=== PATIENT | male | born 1980 | race African-American/Black ===

== ENCOUNTER 2016-03-18 11:55 | Inpatient (IN) | payer SELFPAY ==
--- NOTE | 2016-03-18 12:16 | ER Document Report ---
Addendum entered and electronically signed by ERIC HOOVER NP 03/18/16 12:18: Nurse Practioner Note - Note Notes: 03/18/16 12:18 blood sugar reading HH in RME Original Note: ED Medical Screen (RME) - General Stated Complaint: DIFFICULTY BREATHING Notes: 36 yo IDDM out of Insulin x several days. c/o difficulty breathing, vomiting, abdominal pain x 2 days. + hx/o HTN, high cholesterol. no PCM TRAVEL OUTSIDE OF THE [place] IN LAST 30 DAYS: No - Related Data Allergies/Adverse Reactions: No Known Allergies Allergy (Verified 03/18/16 12:12) Past Medical History - Past Medical History Cardiac Medical History: Reports: Hx Hypercholesterolemia, Hx Hypertension Pulmonary Medical History: Denies: Hx Tuberculosis Endocrine Medical History: Reports: Hx Diabetes Mellitus Type 1. Denies: Hx Diabetes Mellitus Type 2, Hx Graves' Disease, Hx Hyperthyroidism, Hx Hypothyroidism Psychiatric Medical History: Reports: Hx Depression Past Surgical History: Reports: Hx Orthopedic Surgery - back. Denies: Hx Appendectomy, Hx Bowel Surgery, Hx Cholecystectomy, Hx Coronary Artery Bypass Graft, Hx Gastric Bypass Surgery, Hx Herniorrhaphy, Hx Pacemaker, Hx Tonsillectomy - Immunizations Hx Diphtheria, Pertussis, Tetanus Vaccination: Yes Physical Exam - Vital signs Vitals: Temp Pulse Resp BP Pulse Ox 97.8 F 115 H 22 H 125/81 96 03/18/16 12:04 03/18/16 12:04 03/18/16 12:04 03/18/16 12:04 03/18/16 12:04 Course - Vital Signs Vital signs: Temp Pulse Resp BP Pulse Ox 97.8 F 115 H 22 H 125/81 96 03/18/16 12:04 03/18/16 12:04 03/18/16 12:04 03/18/16 12:04 03/18/16 12:04
[2016-03-18] MEDS ORDERED: NORMAL SALINE 1000 ML 1,000 ML IV ONE ×3 (12:47→14:18)
[2016-03-18] MEDS ORDERED: INSULIN REG, HUMAN 100 UNIT/ML 3 ML VIAL (PYX) IV ONE (12:51)
--- NOTE | 2016-03-18 12:51 | ER Document Report ---
ED Blood Sugar Problem - General Mode of Arrival: Ambulatory Information source: Patient TRAVEL OUTSIDE OF THE [place] IN LAST 30 DAYS: No - HPI Onset: Other - see narrative Onset/Duration: Persistent Severity: Severe <LEONARDOABECHESTER - Last Filed: 03/18/16 13:32> <BRI EASTON - Last Filed: 03/18/16 14:00> - General Chief Complaint: High Blood Sugar Stated Complaint: DIFFICULTY BREATHING Notes: Patient is a 36-year-old male that presents to the emergency department today with complaints of not having insulin for the last "few" days with elevated blood glucose levels. Patient states it has been over two days since he last had insulin. Patient states he was first diagnosed with diabetes about four days ago. Patient states that he has had vomiting for the last day and a half. Patient denies any fevers. Patient states he smokes about a quarter of a pack a day and drinks occasionally. Patient smells of ketones. (CHESTER PATTERSON) - Related Data Allergies/Adverse Reactions: No Known Allergies Allergy (Verified 03/18/16 12:12) Past Medical History - General Information [facility] - Social History Smoking Status: Current Every Day Smoker Cigarette use (# per day): Yes Chew tobacco use (# tins/day): No Frequency of alcohol use: Occasional Drug Abuse: None Lives with: Family Family History: Reviewed & Not Pertinent, DM, Hyperlipidemia, Hypertension Patient has suicidal ideation: No Patient has homicidal ideation: No - Past Medical History Cardiac Medical History: Reports: Hx Hypercholesterolemia, Hx Hypertension Endocrine Medical History: Reports: Hx Diabetes Mellitus Type 1 Psychiatric Medical History: Reports: Hx Depression Past Surgical History: Reports: Hx Orthopedic Surgery - back - Immunizations Hx Diphtheria, Pertussis, Tetanus Vaccination: Yes Hx Pneumococcal Vaccination: 11/09/11 <CHESTER PATTERSON - Last Filed: 03/18/16 13:32> Review of Systems - Review of Systems Constitutional: See HPI, Other - No insulin for several days, elevated blood glucose levels. denies: Fever EENT: No symptoms reported Cardiovascular: No symptoms reported Respiratory: No symptoms reported Gastrointestinal: See HPI, Nausea, Vomiting Genitourinary: No symptoms reported Male Genitourinary: No symptoms reported Musculoskeletal: No symptoms reported Skin: No symptoms reported Hematologic/Lymphatic: No symptoms reported Neurological/Psychological: No symptoms reported -: Yes All other systems reviewed and negative <CHESTER PATTERSON - Last Filed: 03/18/16 13:32> Physical Exam - General General appearance: Alert - HEENT Head: Normocephalic, Atraumatic Eyes: Normal Mucous membranes: Dry - Respiratory Respiratory status: Tachypnea Breath sounds: Normal - Cardiovascular Rhythm: Tachycardia Heart sounds: Normal auscultation - Abdominal Inspection: Normal Distension: No distension Bowel sounds: Normal Tenderness: Nontender - Extremities General upper extremity: Normal inspection, Normal ROM. No: Edema General lower extremity: Normal inspection, Normal ROM. No: Edema - Neurological Neuro grossly intact: Yes Cognition: Normal Orientation: AAOx4 Speech: Normal - Psychological Associated symptoms: Normal affect, Normal mood - Skin Skin Temperature: Warm Skin Moisture: Dry Skin Color: Normal <CHESTER PATTERSON - Last Filed: 03/18/16 13:32> <BRI EASTON - Last Filed: 03/18/16 14:00> - Vital signs Vitals: Temp Pulse Resp BP Pulse Ox 97.8 F 115 H 22 H 125/81 96 03/18/16 12:04 03/18/16 12:04 03/18/16 12:04 03/18/16 12:04 03/18/16 12:04 (CHESTER PATTERSON) (BRI EASTON) - Notes Notes: Smells of ketones upon entry (CHESTER PATTERSON) Course - Laboratory Result Diagrams: 03/18/16 13:00 03/18/16 13:00 <CHESTER PATTERSON - Last Filed: 03/18/16 13:32> - Laboratory Result Diagrams: 03/18/16 13:00 03/18/16 13:00 - Consults Dr. Newman Time consulted: 13:55 Consulted provider: will come to ER <BRI EASTON - Last Filed: 03/18/16 14:00> - Vital Signs Vital signs: Temp Pulse Resp BP Pulse Ox 97.8 F 110 H 23 H 125/81 96 03/18/16 13:08 03/18/16 13:08 03/18/16 13:08 03/18/16 13:08 03/18/16 13:08 (CHESTER PATTERSON) (BRI EASTON) - Laboratory Laboratory results interpreted by me: 03/18/16 03/18/16 03/18/16 13:00 13:00 13:00 WBC 14.1 H MCHC 31.7 L RDW 16.6 H Seg Neutrophils % 83.1 H Lymphocytes % 9.3 L Absolute Neutrophils 11.7 H Sodium 136.1 L Carbon Dioxide < 5 L* BUN 26 H Glucose 740 H* Phosphorus 8.5 H Magnesium 2.4 H ALT 119 H Alkaline Phosphatase 287 H Triglycerides 183 H Cholesterol 232.23 H Lipase 3727.7 H Urine Glucose (UA) >=500 H Urine Ketones 80 H Urine Blood SMALL H (BRI EASTON) Critical Care Note - Critical Care Note Total time excluding time spent on procedures (mins): 35 <BRI EASTON - Last Filed: 03/18/16 14:00> Discharge <CHESTER PATTERSON - Last Filed: 03/18/16 13:32> - Discharge Admitting Provider: Hospitalist Unit Admitted: IMCU <BRI EASTON - Last Filed: 03/18/16 14:00> - Discharge Clinical Impression: Dehydration, Noncompliance Diabetic ketoacidosis Qualifiers: Diabetes mellitus type: type 1 Diabetes mellitus complication detail: without coma Qualified Code(s): E10.10 - Type 1 diabetes mellitus with ketoacidosis without coma Pancreatitis Qualifiers: Chronicity: acute Pancreatitis type: unspecified pancreatitis type Acute pancreatitis complication: no infection or necrosis Qualified Code(s): K85.90 - Acute pancreatitis without necrosis or infection, unspecified Condition: Good Disposition: ADMITTED INPATIENT Scribe Documentation - Scribe Written by Sylvain:: Sylvain Bansal, [id number] 03/18/2016 acting as scribe for DrQiana:: Ellie <CHESTER PATTERSON - Last Filed: 03/18/16 13:32>
[2016-03-18 13:17] LABS: ABSOLUTE BASOPHILS # (AUTO) 0.1 10^3/uL (0.0-0.2); ABSOLUTE LYMPHOCYTES (AUTO) 1.3 10^3/uL (0.5-4.7); ABSOLUTE NEUT (AUTO) 11.7 10^3/uL (1.7-8.2); BASOPHILS % (AUTO) 0.6 % (0-2); EOSINOPHILS % (AUTO) 0.1 % (0-6); HEMATOCRIT 46.2 % (37.9-51.0); HEMOGLOBIN 14.6 g/dL (13.5-17.0); HGB HCT DIFFERENCE -2.4; LYMPHOCYTES % (AUTO) 9.3 % (13-45); MEAN CORPUSCULAR HEMOGLOBIN 30.6 pg (27.0-33.4); MEAN CORPUSCULAR HGB CONC 31.7 g/dL (32.0-36.0); MEAN CORPUSCULAR VOLUME 97 fl (80-97); MONOCYTES % (AUTO) 6.9 % (3-13); RED BLOOD COUNT 4.78 10^6/uL (4.35-5.55); RED CELL DISTRIBUTION WIDTH 16.6 % (11.5-14.0); SEGMENTED NEUTROPHILS % (AUTO) 83.1 % (42-78); WHITE BLOOD COUNT 14.1 10^3/uL (4.0-10.5)
[2016-03-18 13:22] LABS: APPEARANCE,URINE CLEAR; BILIRUBIN,URINE NEGATIVE (NEGATIVE); GLUCOSE, URINE >=500 mg/dL (NEGATIVE); KETONES,URINE 80 mg/dL (NEGATIVE); LEUKOCYTE ESTERASE,URINE NEGATIVE (NEGATIVE); NITRITE,URINE NEGATIVE (NEGATIVE); PROTEIN,URINE NEGATIVE (NEGATIVE); URINE SPECIFIC GRAVITY 1.027; UROBILINOGEN,URINE NEGATIVE mg/dL (<2.0)
[2016-03-18 13:30] LABS: ALANINE AMINOTRANSFERASE 119 U/L (21-72); ALBUMIN 4.5 g/dL (3.5-5.0); ALKALINE PHOSPHATASE 287 U/L (38-126); ASPARTATE AMINO TRANSFERASE 39 U/L (17-59); BILIRUBIN,TOTAL 0.8 mg/dL (0.2-1.3); BLOOD UREA NITROGEN 26 mg/dL (7-20); CALCIUM 9.7 mg/dL (8.4-10.2); CHLORIDE 98 mmol/L (98-107); CHOLESTEROL 232.23 mg/dL (0-200); CREATININE RESULT 1.18 mg/dL (0.52-1.25); MAGNESIUM 2.4 mg/dL (1.6-2.3); PHOSPHORUS 8.5 mg/dL (2.5-4.5); SODIUM 136.1 mmol/L (137-145); TOTAL PROTEIN 7.1 g/dL (6.3-8.2); TRIGLYCERIDES 183 mg/dL (<150)
[2016-03-18 13:47] LABS: LIPASE 3727.7 U/L (23-300)
[2016-03-18 13:51] LABS: GLUCOSE 740 mg/dL (75-110)
--- NOTE | 2016-03-18 14:13 | ER Document Report ---
ED General - General Chief Complaint: High Blood Sugar Stated Complaint: DIFFICULTY BREATHING Time seen by provider: 12:45 Mode of Arrival: Ambulatory Information source: Patient, [facility] Records Notes: Ran out of insulin a few days ago. Nausea vomiting abdominal pain for 2 days. Complains of being in DKA with shortness of breath and dehydration. Last admitted here on 12/15/2015 for the same problem. There is no fever. There is no diarrhea. There is some abdominal pain. TRAVEL OUTSIDE OF THE [place] IN LAST 30 DAYS: No - Related Data Allergies/Adverse Reactions: No Known Allergies Allergy (Verified 03/18/16 12:12) Past Medical History - General Information source: Patient, [facility] Records - Social History Smoking Status: Current Every Day Smoker Cigarette use (# per day): Yes - one fourth pack per day Chew tobacco use (# tins/day): No Smoking Education Provided: No Frequency of alcohol use: None - Patient states she does not drink alcohol this time. Drug Abuse: None Occupation: [employer] Lives with: Family, Spouse/Significant other Family History: DM, Hyperlipidemia, Hypertension Patient has suicidal ideation: No Patient has homicidal ideation: No - Past Medical History Cardiac Medical History: Reports: Hx Hypercholesterolemia, Hx Hypertension Pulmonary Medical History: Reports: None EENT Medical History: Reports: None Neurological Medical History: Reports: None Endocrine Medical History: Reports: Hx Diabetes Mellitus Type 1 - 4 years Renal/ Medical History: Reports: None GI Medical History: Reports: None Musculoskeltal Medical History: Reports None Skin Medical History: Reports None Psychiatric Medical History: Reports: Hx Depression Past Surgical History: Reports: Hx Orthopedic Surgery - back - Immunizations Hx Diphtheria, Pertussis, Tetanus Vaccination: Yes Hx Pneumococcal Vaccination: 11/09/11 Review of Systems - Review of Systems Constitutional: See HPI EENT: No symptoms reported Cardiovascular: No symptoms reported Respiratory: See HPI Gastrointestinal: See HPI Genitourinary: No symptoms reported Male Genitourinary: No symptoms reported Musculoskeletal: No symptoms reported Skin: No symptoms reported Hematologic/Lymphatic: No symptoms reported Neurological/Psychological: No symptoms reported Physical Exam - Vital signs Vitals: Temp Pulse Resp BP Pulse Ox 97.8 F 115 H 22 H 125/81 96 03/18/16 12:04 03/18/16 12:04 03/18/16 12:04 03/18/16 12:04 03/18/16 12:04 Interpretation: Tachycardic, Tachypneic - General General appearance: Alert, Anxious In distress: Moderate Notes: Strong ketone odor smelled upon entering the room. - HEENT Head: Normocephalic, Atraumatic Eyes: Normal Pupils: PERRL Mucous membranes: Dry Pharynx: Normal Neck: Normal - Respiratory Respiratory status: Tachypnea Breath sounds: Normal Chest palpation: Normal - Cardiovascular Rhythm: Regular, Tachycardia Heart sounds: Normal auscultation Murmur: No - Abdominal Inspection: Normal Bowel sounds: Hypoactive Tenderness: Tender - Back Back: Normal - Extremities General upper extremity: Normal inspection General lower extremity: Normal inspection - Neurological Neuro grossly intact: Yes - Psychological Associated symptoms: Anxious - Skin Skin Temperature: Warm Skin Moisture: Dry Skin Color: Normal Course - Vital Signs Vital signs: Temp Pulse Resp BP Pulse Ox 97.8 F 110 H 23 H 125/81 96 03/18/16 13:08 03/18/16 13:08 03/18/16 13:08 03/18/16 13:08 03/18/16 13:08 - Laboratory Result Diagrams: 03/18/16 13:00 03/18/16 13:00 Laboratory results interpreted by me: 03/18/16 03/18/16 03/18/16 13:00 13:00 13:00 WBC 14.1 H MCHC 31.7 L RDW 16.6 H Seg Neutrophils % 83.1 H Lymphocytes % 9.3 L Absolute Neutrophils 11.7 H Sodium 136.1 L Carbon Dioxide < 5 L* BUN 26 H Glucose 740 H* Phosphorus 8.5 H Magnesium 2.4 H ALT 119 H Alkaline Phosphatase 287 H Triglycerides 183 H Cholesterol 232.23 H Lipase 3727.7 H Urine Glucose (UA) >=500 H Urine Ketones 80 H Urine Blood SMALL H - Consults Dr. Newman Time consulted: 13:55 Consulted provider: will come to ER Critical Care Note - Critical Care Note Total time excluding time spent on procedures (mins): 35 Discharge - Discharge Clinical Impression: Dehydration, Noncompliance Diabetic ketoacidosis Qualifiers: Diabetes mellitus type: type 1 Diabetes mellitus complication detail: without coma Qualified Code(s): E10.10 - Type 1 diabetes mellitus with ketoacidosis without coma Pancreatitis Qualifiers: Chronicity: acute Pancreatitis type: unspecified pancreatitis type Acute pancreatitis complication: no infection or necrosis Qualified Code(s): K85.90 - Acute pancreatitis without necrosis or infection, unspecified Condition: Good Disposition: ADMITTED INPATIENT Admitting Provider: Hospitalist Unit Admitted: TANYA Naaryan Attestation: 03/18/16 14:17 I personally performed the services described in the documentation, reviewed and edited the documentation which was dictated to the scribe in my presence, and it accurately records my words and actions.
[2016-03-18] MEDS ORDERED: MORPHINE SULFATE 10 MG/ML INJ IV ONE (14:18)
[2016-03-18] MEDS ORDERED: ONDANSETRON HCL INJ/PF 4 MG/2 ML SDV IV ONE (14:18)
[2016-03-18] MEDS ORDERED: DEXTROSE 50%-WATER 25 GM/50 ML DISP.SYRIN IV PRN ×2 (14:37)
[2016-03-18] MEDS ORDERED: NORMAL SALINE 1000 ML 1,000 ML IV PRN (14:37)
[2016-03-18] MEDS ORDERED: DEXTROSE 40% GEL 15 GM TUBE PO PRN ×2 (14:37)
[2016-03-18] MEDS ORDERED: GLUCAGON,HUMAN RECOMB 1 MG INJ IM PRN (14:37)
[2016-03-18] MEDS ORDERED: ACETAMINOPHEN 325 MG TABLET PO PRN (14:38)
--- NOTE | 2016-03-18 14:49 | PDOC H&P ---
History of Present Illness Admission Date/PCP: [facility] Patient complains of: Difficulty breathing History of Present Illness: CHESTER MCKEON is a 36 year old male that presents to the emergency department with nausea, vomiting, shortness of breath. Patient isn't known Type 1 diabetic that has been admitted to our service on multiple occasions recently for DKA secondary to medication nonadherence. Patient states that he has not taken his insulin in the past several days secondary to inability to afford medication. Past Medical History Cardiac Medical History: Reports: Hyperlipidema, Hypertension Pulmonary Medical History: Reports: None Denies: Tuberculosis EENT Medical History: Reports: None Neurological Medical History: Reports: None Endocrine Medical History: Reports: Diabetes Mellitus Type 1 - 4 years Denies: Diabetes Mellitus Type 2, Hyperthyroidism, Hypothyroidism Renal/ Medical History: Reports: None GI Medical History: Reports: None Musculoskeltal Medical History: Reports: None Skin Medical History: Reports: None Psychiatric Medical History: Reports: Depression Past Surgical History Past Surgical History: Reports: Orthopedic Surgery - back Denies: Appendectomy, Cholecystectomy, Coronary Artery Bypass Graft, Gastric Bypass Surgery, Herniorrhaphy, Pacemaker, Tonsillectomy Social History Lives with: Family, Spouse/Significant other Smoking Status: Current Every Day Smoker Frequency of Alcohol Use: None Hx Recreational Drug Use: Yes Drugs: Marijuana Hx Prescription Drug Abuse: No - Advance Directive Resuscitation Status: Full Code Family History Family History: DM, Hyperlipidemia, Hypertension Parental Family History Reviewed: Yes Children Family History Reviewed: Yes Sibling(s) Family History Reviewed.: Yes Medication/Allergy Home Medications: Insulin Aspart [Novolog Flexpen] 0 unit SUBCUT .SLD SCALE #1 pen 12/02/15 Insulin Glargine,Hum.rec.anlog [Lantus Insulin 100 Unit/mL] 35 unit SUBCUT DAILY #1 insuln.pen 12/02/15 Allergies/Adverse Reactions: No Known Allergies Allergy (Verified 03/18/16 12:12) Review of Systems Constitutional: PRESENT: fatigue, weakness. ABSENT: chills, fever(s), headache( s), weight gain, weight loss Eyes: ABSENT: visual disturbances Ears: ABSENT: hearing changes Cardiovascular: ABSENT: chest pain, dyspnea on exertion, edema, orthropnea, palpitations Respiratory: PRESENT: dyspnea. ABSENT: cough, hemoptysis Gastrointestinal: PRESENT: nausea, vomiting. ABSENT: abdominal pain, constipation, diarrhea, hematemesis, hematochezia Genitourinary: ABSENT: dysuria, hematuria Musculoskeletal: ABSENT: joint swelling Integumentary: ABSENT: rash, wounds Neurological: ABSENT: abnormal gait, abnormal speech, confusion, dizziness, focal weakness, syncope Psychiatric: ABSENT: anxiety, depression, homidical ideation, suicidal ideation Endocrine: ABSENT: cold intolerance, heat intolerance, polydipsia, polyuria Hematologic/Lymphatic: ABSENT: easy bleeding, easy bruising Physical Exam Vital Signs: Temp Pulse Resp BP Pulse Ox 97.8 F 110 H 17 116/79 100 03/18/16 13:08 03/18/16 13:08 03/18/16 14:07 03/18/16 14:07 03/18/16 14:07 Intake & Output 03/17/16 03/18/16 03/19/16 06:59 06:59 06:59 Weight 60.5 kg PHYSICAL EXAM: GENERAL: Ill-appearing, rapid deep respiratory pattern HEENT: Normocephalic, no scleral icterus, conjunctiva clear, EOEM intact, PERRLA , moist mucous membranes NECK: trachea midline, no thyromegally RESPIRATORY: Clear to auscultation, no wheezes/rhonchi CARDIAC: Regular rate and rhythm, no murmur/rodrigo/rub ABDOMEN: Soft, no distension, no tenderness, no guarding, normal bowel sounds, negative Ryan sign RECTAL: deferred : deferred EXTREMITIES: No edema, cyanosis, clubbing MUSCULOSKELETAL: No joint swelling or deformity VASCULAR: normal peripheral pulses NEUROLOGIC: Alert, oriented to person/place/time, normal speech, cranial nerves grossly intact, 5/5 strength in all extremities, tactile sensation intact in all extremities SKIN: No rash, no wounds, no worrisome skin lesions PSYCHIATRIC: Normal mood, flat affect Results Laboratory Results: 03/18/16 13:00 03/18/16 13:00 03/18/16 03/18/16 03/18/16 13:00 13:00 13:00 WBC 14.1 H RBC 4.78 Hgb 14.6 Hct 46.2 MCV 97 MCH 30.6 MCHC 31.7 L RDW 16.6 H Plt Count 196 Seg Neutrophils % 83.1 H Lymphocytes % 9.3 L Monocytes % 6.9 Eosinophils % 0.1 Basophils % 0.6 Absolute Neutrophils 11.7 H Absolute Lymphocytes 1.3 Absolute Monocytes 1.0 Absolute Eosinophils 0.0 Absolute Basophils 0.1 Sodium 136.1 L Potassium 5.0 Chloride 98 Carbon Dioxide < 5 L* Anion Gap Not Reportable BUN 26 H Creatinine 1.18 Est GFR ( Amer) > 60 Est GFR (Non-Af Amer) > 60 Glucose 740 H* Calcium 9.7 Phosphorus 8.5 H Magnesium 2.4 H Total Bilirubin 0.8 AST 39 ALT 119 H Alkaline Phosphatase 287 H Total Protein 7.1 Albumin 4.5 Triglycerides 183 H Cholesterol 232.23 H Lipase 3727.7 H Urine Color STRAW Urine Appearance CLEAR Urine pH 5.0 Ur Specific Baxter 1.027 Urine Protein NEGATIVE Urine Glucose (UA) >=500 H Urine Ketones 80 H Urine Blood SMALL H Urine Nitrite NEGATIVE Ur Leukocyte Esterase NEGATIVE Urine WBC (Auto) 0 Urine RBC (Auto) 0 Assessment & Plan - Diagnosis (1) Diabetic ketoacidosis Qualifiers: Diabetes mellitus type: type 1 Diabetes mellitus complication detail: without coma Qualified Code(s): E10.10 - Type 1 diabetes mellitus with ketoacidosis without coma Is this a current diagnosis for this admission?: YesPlan: Patient will be placed on insulin drip protocol. Every hour Accu-Chek. Every 4 hours basic metabolic panel. Check hemoglobin A1c. This was likely precipitated by medication noncompliance. Urinalysis is negative for infection. I would like to check a chest x-ray. (2) Noncompliance Is this a current diagnosis for this admission?: Yes (3) Pancreatitis Qualifiers: Chronicity: acute Pancreatitis type: unspecified pancreatitis type Acute pancreatitis complication: no infection or necrosis Qualified Code(s) : K85.90 - Acute pancreatitis without necrosis or infection, unspecified Is this a current diagnosis for this admission?: YesPlan: Nothing by mouth. IV fluids. Antiemetics. Analgesic. Repeat lipase in a.m. Triglyceride level normal. Patient denies heavy alcohol use. (4) Tobacco abuse Is this a current diagnosis for this admission?: Yes (5) DVT prophylaxis Is this a current diagnosis for this admission?: YesPlan: Lovenox (6) Leukocytosis Is this a current diagnosis for this admission?: YesPlan: Likely secondary to volume contraction and stress response from DKA. Patient is afebrile. Urinalysis negative for infection. Check chest x-ray. Hold off on antibiotics for now unless patient should become febrile or something shows up on chest x-ray. Repeat CBC in the morning. - Time Time Spent: Greater than 70 Minutes Anticipated discharge: Home Within: within 72 hours
[2016-03-18] MEDS ORDERED: MAG HYDROX/AL HYDROX/SIMETH SUSP 30 ML UDCUP ONE (15:36)
[2016-03-18] MEDS ORDERED: NORMAL SALINE 100 ML with INSULIN REGULAR, HUMAN 100 UNIT IV PRN ×2 (16:00)
[2016-03-18] MEDS ORDERED: ENOXAPARIN SODIUM INJ 40 MG/0.4 ML DISP.SYRIN SUBCUT ONE (17:00)
[2016-03-18 17:39] LABS: BLOOD UREA NITROGEN 23 mg/dL (7-20); CALCIUM 8.7 mg/dL (8.4-10.2); CHLORIDE 111 mmol/L (98-107); CREATININE RESULT 0.97 mg/dL (0.52-1.25); POTASSIUM 4.9 mmol/L (3.6-5.0); SODIUM 142.2 mmol/L (137-145)
[2016-03-18 18:22] LABS: GLUCOSE 456 mg/dL (75-110)
[2016-03-18 18:23] LABS: CARBON DIOXIDE < 5 mmol/L (22-30)
[2016-03-18] MEDS ORDERED: DEXTROSE 5%-NORMAL SALINE 1,000 ML IV PRN (21:27)
[2016-03-18] MEDS: FAMOTIDINE INJ/PF 20 MG/2 ML SDV IV SCH (21:38)
[2016-03-18 21:56] LABS: ANION GAP 14 (5-19); BLOOD UREA NITROGEN 15 mg/dL (7-20); CHLORIDE 126 mmol/L (98-107); CREATININE RESULT 0.55 mg/dL (0.52-1.25); GLUCOSE 158 mg/dL (75-110); SODIUM 145.5 mmol/L (137-145)
[2016-03-18 22:12] LABS: CALCIUM 5.4 mg/dL (8.4-10.2); CARBON DIOXIDE 6 mmol/L (22-30); POTASSIUM 2.5 mmol/L (3.6-5.0)
[2016-03-18] MEDS ORDERED: POTASSI CL 20 MEQ/50 ML RIDER 50 ML IV ONE (22:19)
[2016-03-18 23:02] LABS: ALBUMIN 3.1 g/dL (3.5-5.0); ANION GAP 17 (5-19); BLOOD UREA NITROGEN 20 mg/dL (7-20); CALCIUM 8.5 mg/dL (8.4-10.2); CARBON DIOXIDE 12 mmol/L (22-30); CHLORIDE 116 mmol/L (98-107); CREATININE RESULT 0.79 mg/dL (0.52-1.25); GLUCOSE 210 mg/dL (75-110); SODIUM 144.6 mmol/L (137-145)
[2016-03-18 23:14] LABS: POTASSIUM 4.1 mmol/L (3.6-5.0)
[2016-03-19] MEDS: POTASSI CL 20 MEQ/D5-1/2NS 1L 1,000 ML IV PRN ×3 (00:15→06:52)
[2016-03-19 03:41] LABS: ANION GAP 17 (5-19); BLOOD UREA NITROGEN 20 mg/dL (7-20); CALCIUM 8.6 mg/dL (8.4-10.2); CARBON DIOXIDE 12 mmol/L (22-30); CHLORIDE 117 mmol/L (98-107); CREATININE RESULT 0.84 mg/dL (0.52-1.25); GLUCOSE 234 mg/dL (75-110); POTASSIUM 3.9 mmol/L (3.6-5.0); SODIUM 145.7 mmol/L (137-145)
[2016-03-19] MEDS ORDERED: RINGERS SOLUTION,LACTATED 1,000 ML IV ONE (05:03)
[2016-03-19] MEDS ORDERED: POTASSI CL 20 MEQ/50 ML RIDER 20 MEQ/50 ML RTUPB IV ONE (05:03)
[2016-03-19 06:31] LABS: ABSOLUTE BASOPHILS # (AUTO) 0.1 10^3/uL (0.0-0.2); ABSOLUTE LYMPHOCYTES (AUTO) 1.2 10^3/uL (0.5-4.7); ABSOLUTE MONOCYTES (AUTO) 1.3 10^3/uL (0.1-1.4); ABSOLUTE NEUT (AUTO) 9.9 10^3/uL (1.7-8.2); HEMATOCRIT 36.2 % (37.9-51.0); HGB HCT DIFFERENCE -0.2; LYMPHOCYTES % (AUTO) 9.5 % (13-45); MEAN CORPUSCULAR HEMOGLOBIN 30.3 pg (27.0-33.4); MEAN CORPUSCULAR HGB CONC 33.3 g/dL (32.0-36.0); MONOCYTES % (AUTO) 10.2 % (3-13); RED BLOOD COUNT 3.97 10^6/uL (4.35-5.55); RED CELL DISTRIBUTION WIDTH 14.8 % (11.5-14.0); SEGMENTED NEUTROPHILS % (AUTO) 79.3 % (42-78); WHITE BLOOD COUNT 12.5 10^3/uL (4.0-10.5)
[2016-03-19 06:41] LABS: ANION GAP 8 (5-19); BLOOD UREA NITROGEN 19 mg/dL (7-20); CALCIUM 8.5 mg/dL (8.4-10.2); CARBON DIOXIDE 18 mmol/L (22-30); CHLORIDE 119 mmol/L (98-107); CREATININE RESULT 0.77 mg/dL (0.52-1.25); GLUCOSE 116 mg/dL (75-110); POTASSIUM 3.6 mmol/L (3.6-5.0); SODIUM 144.9 mmol/L (137-145)
[2016-03-19 06:42] LABS: MEAN CORPUSCULAR VOLUME 91 fl (80-97)
[2016-03-19 06:50] LABS: LIPASE 2169.7 U/L (23-300)
[2016-03-19] MEDS ORDERED: GLUCAGON,HUMAN RECOMB 1 MG INJ IM PRN (07:27)
[2016-03-19] MEDS ORDERED: DEXTROSE 50%-WATER 25 GM/50 ML DISP.SYRIN IV PRN ×2 (07:27)
[2016-03-19] MEDS ORDERED: DEXTROSE 40% GEL 15 GM TUBE PO PRN ×2 (07:27)
[2016-03-19] MEDS ORDERED: INSULIN GLARGINE,HUM.REC.ANLOG 1,000 UNIT/10 ML UNIT SUBCUT ONE (08:43)
[2016-03-19] MEDS: ENOXAPARIN SODIUM INJ 40 MG/0.4 ML DISP.SYRIN SUBCUT SCH (08:50)
[2016-03-19] MEDS: FAMOTIDINE INJ/PF 20 MG/2 ML SDV IV SCH ×2 (08:50→22:32)
[2016-03-19] MEDS: INSULIN GLARGINE,HUM.REC.ANLOG 300 UNIT/3 ML INSULN.PEN SUBCUT SCH (08:50)
[2016-03-19 09:18] LABS: CARBON DIOXIDE < 5 mmol/L (22-30)
[2016-03-19] MEDS: INSULIN LISPRO 100 UNIT/ML 3 ML VIAL SUBCUT PRN (11:52)
[2016-03-19] MEDS: POTASSI CL 20 MEQ/NS 1L 1,000 ML IV PRN (13:56)
--- NOTE | 2016-03-19 15:04 | PDOC PROGRESS REPORT ---
Subjective Progress Note for:: 03/19/16 Subjective:: Patient is feeling much better today but still has some abdominal discomfort and nausea. He denies alcohol intake. He denies prior history of pancreatitis. Patient denies fever, chills, headache, new focal weakness, chest pain, shortness of breath, vomiting, diarrhea, constipation. Physical Exam Vital Signs: Temp Pulse Resp BP Pulse Ox 98.3 F 87 18 113/69 100 03/19/16 11:24 03/19/16 14:00 03/19/16 11:24 03/19/16 11:24 03/19/16 11:24 Intake & Output 03/18/16 03/19/16 03/20/16 06:59 06:59 06:59 Intake Total 6055 Output Total 400 Balance 5655 Weight 64.3 kg GENERAL: No acute distress HEENT: Conjunctiva clear, nonicteric, moist mucous membranes, no JVD, midline trachea RESPIRATORY: Clear to auscultation bilaterally, no wheezes, no rhonchi CARDIAC: Regular rate and rhythm, no murmurs/gallops/rubs ABDOMEN: Soft, nondistended, mild mid abdominal tenderness, positive bowel sounds, no rebound, no guarding EXTREMETIES: No edema, cyanosis, clubbing NEUROLOGIC: Alert, oriented to person/place/time, CN's grossly intact, no focal deficits SKIN: No rash, wounds PSYCH: Normal mood, normal affect Results Laboratory Results: 03/19/16 06:02 03/19/16 06:02 03/18/16 03/18/16 03/18/16 17:10 21:20 22:40 WBC RBC Hgb Hct MCV MCH MCHC RDW Plt Count Seg Neutrophils % Lymphocytes % Monocytes % Eosinophils % Basophils % Absolute Neutrophils Absolute Lymphocytes Absolute Monocytes Absolute Eosinophils Absolute Basophils Sodium 142.2 145.5 H 144.6 Potassium 4.9 2.5 L* D 4.1 D Chloride 111 H 126 H 116 H Carbon Dioxide < 5 L* 6 L* 12 L Anion Gap Not Reportable 14 17 BUN 23 H 15 20 Creatinine 0.97 0.55 0.79 Est GFR ( Amer) > 60 > 60 > 60 Est GFR (Non-Af Amer) > 60 > 60 > 60 Glucose 456 H* 158 H 210 H Calcium 8.7 5.4 L* 8.5 Albumin 3.1 L Lipase 03/19/16 03/19/16 03/19/16 03:22 06:02 06:02 WBC 12.5 H RBC 3.97 L Hgb 12.0 L D Hct 36.2 L MCV 91 D MCH 30.3 MCHC 33.3 RDW 14.8 H Plt Count 171 Seg Neutrophils % 79.3 H Lymphocytes % 9.5 L Monocytes % 10.2 Eosinophils % 0.0 Basophils % 1.0 Absolute Neutrophils 9.9 H Absolute Lymphocytes 1.2 Absolute Monocytes 1.3 Absolute Eosinophils 0.0 Absolute Basophils 0.1 Sodium 145.7 H 144.9 Potassium 3.9 3.6 Chloride 117 H 119 H Carbon Dioxide 12 L 18 L Anion Gap 17 8 BUN 20 19 Creatinine 0.84 0.77 Est GFR ( Amer) > 60 > 60 Est GFR (Non-Af Amer) > 60 > 60 Glucose 234 H 116 H Calcium 8.6 8.5 Albumin Lipase 2169.7 H Impressions: Chest X-Ray 03/18/16 14:44 IMPRESSION: NO ACUTE RADIOGRAPHIC FINDING IN THE CHEST. Assessment & Plan - Diagnosis (1) Diabetic ketoacidosis Qualifiers: Diabetes mellitus type: type 1 Diabetes mellitus complication detail: without coma Qualified Code(s): E10.10 - Type 1 diabetes mellitus with ketoacidosis without coma Is this a current diagnosis for this admission?: YesPlan: Secondary to medication nonadherence. Acute pancreatitis may be contributing. Discontinue insulin drip. Start Lantus 35 units subcutaneous daily. Start clear liquid diet. Sliding scale insulin coverage. (2) Noncompliance Is this a current diagnosis for this admission?: Yes (3) Pancreatitis Qualifiers: Chronicity: acute Pancreatitis type: unspecified pancreatitis type Acute pancreatitis complication: no infection or necrosis Qualified Code(s) : K85.90 - Acute pancreatitis without necrosis or infection, unspecified Is this a current diagnosis for this admission?: YesPlan: Patient does not drink alcohol. Triglyceride level normal. I would like to check right upper quadrant ultrasound. Start clear liquid diet. Continue IV fluids. Repeat lipase in the morning. (4) Tobacco abuse Is this a current diagnosis for this admission?: Yes (5) Leukocytosis Is this a current diagnosis for this admission?: YesPlan: Likely secondary to DKA and pancreatitis. Patient is afebrile. Blood pressure stable. Check right upper quadrant ultrasound. Chest x-ray negative. Urinalysis negative. Hold off on antibiotics for now. (6) DVT prophylaxis Is this a current diagnosis for this admission?: Yes - Time Time Spent with patient: 35 or more minutes
[2016-03-19] MEDS: ONDANSETRON HCL INJ/PF 4 MG/2 ML SDV IV PRN (19:51)
[2016-03-20] MEDS: POTASSI CL 20 MEQ/NS 1L 1,000 ML IV PRN ×2 (01:50→21:48)
[2016-03-20] MEDS: ONDANSETRON HCL INJ/PF 4 MG/2 ML SDV IV PRN ×4 (01:52→17:08)
[2016-03-20 05:55] LABS: ABSOLUTE LYMPHOCYTES (AUTO) 1.7 10^3/uL (0.5-4.7); ABSOLUTE MONOCYTES (AUTO) 0.9 10^3/uL (0.1-1.4); BASOPHILS % (AUTO) 0.2 % (0-2); EOSINOPHILS % (AUTO) 0.4 % (0-6); HEMATOCRIT 35.6 % (37.9-51.0); HGB HCT DIFFERENCE 0.4; LYMPHOCYTES % (AUTO) 17.3 % (13-45); MEAN CORPUSCULAR HEMOGLOBIN 30.6 pg (27.0-33.4); MEAN CORPUSCULAR HGB CONC 33.8 g/dL (32.0-36.0); MEAN CORPUSCULAR VOLUME 91 fl (80-97); MONOCYTES % (AUTO) 9.1 % (3-13); RED BLOOD COUNT 3.93 10^6/uL (4.35-5.55); WHITE BLOOD COUNT 9.7 10^3/uL (4.0-10.5)
[2016-03-20 06:10] LABS: ALANINE AMINOTRANSFERASE 66 U/L (21-72); ALBUMIN 2.8 g/dL (3.5-5.0); ALKALINE PHOSPHATASE 175 U/L (38-126); ANION GAP 9 (5-19); ASPARTATE AMINO TRANSFERASE 24 U/L (17-59); BILIRUBIN,TOTAL 0.6 mg/dL (0.2-1.3); BLOOD UREA NITROGEN 14 mg/dL (7-20); CALCIUM 8.5 mg/dL (8.4-10.2); CARBON DIOXIDE 20 mmol/L (22-30); CHLORIDE 111 mmol/L (98-107); CREATININE RESULT 0.74 mg/dL (0.52-1.25); GLUCOSE 157 mg/dL (75-110); MAGNESIUM 2.2 mg/dL (1.6-2.3); POTASSIUM 3.7 mmol/L (3.6-5.0); SODIUM 139.7 mmol/L (137-145); TOTAL PROTEIN 5.3 g/dL (6.3-8.2)
[2016-03-20 06:19] LABS: LIPASE 2045.1 U/L (23-300)
[2016-03-20] MEDS: FAMOTIDINE INJ/PF 20 MG/2 ML SDV IV SCH ×2 (07:59→21:55)
[2016-03-20] MEDS: INSULIN GLARGINE,HUM.REC.ANLOG 300 UNIT/3 ML INSULN.PEN SUBCUT SCH (08:05)
[2016-03-20] MEDS: ENOXAPARIN SODIUM INJ 40 MG/0.4 ML DISP.SYRIN SUBCUT SCH (08:05)
[2016-03-20] MEDS ORDERED: INSULIN GLARGINE,HUM.REC.ANLOG 300 UNIT/3 ML INSULN.PEN SUBCUT SCH (14:57)
--- NOTE | 2016-03-20 15:08 | PDOC PROGRESS REPORT ---
Subjective Progress Note for:: 03/20/16 Subjective:: Patient is having continued abdominal discomfort, nausea, occasional vomiting. Patient denies fever, chills, headache, new focal weakness, chest pain, shortness of breath, diarrhea, constipation. Physical Exam Vital Signs: Temp Pulse Resp BP Pulse Ox 98.6 F 73 12 143/100 H 100 03/20/16 11:19 03/20/16 11:19 03/20/16 11:19 03/20/16 11:19 03/20/16 11:19 Intake & Output 03/19/16 03/20/16 03/21/16 06:59 06:59 06:59 Intake Total 6055 5037 118 Output Total 400 0 Balance 5655 5037 118 Weight 64.3 kg 69.4 kg GENERAL: No acute distress HEENT: Conjunctiva clear, nonicteric, moist mucous membranes, no JVD, midline trachea RESPIRATORY: Clear to auscultation bilaterally, no wheezes, no rhonchi CARDIAC: Regular rate and rhythm, no murmurs/gallops/rubs ABDOMEN: Soft, nondistended, mild mid abdominal tenderness, positive bowel sounds, no rebound, no guarding EXTREMETIES: No edema, cyanosis, clubbing NEUROLOGIC: Alert, oriented to person/place/time, CN's grossly intact, no focal deficits SKIN: No rash, wounds PSYCH: Normal mood, normal affect Results Laboratory Results: 03/20/16 04:59 03/20/16 04:59 03/20/16 03/20/16 04:59 04:59 WBC 9.7 RBC 3.93 L Hgb 12.0 L Hct 35.6 L MCV 91 MCH 30.6 MCHC 33.8 RDW 15.0 H Plt Count 145 L Seg Neutrophils % 73.0 Lymphocytes % 17.3 Monocytes % 9.1 Eosinophils % 0.4 Basophils % 0.2 Absolute Neutrophils 7.0 Absolute Lymphocytes 1.7 Absolute Monocytes 0.9 Absolute Eosinophils 0.0 Absolute Basophils 0.0 Sodium 139.7 Potassium 3.7 Chloride 111 H Carbon Dioxide 20 L Anion Gap 9 BUN 14 Creatinine 0.74 Est GFR ( Amer) > 60 Est GFR (Non-Af Amer) > 60 Glucose 157 H Calcium 8.5 Magnesium 2.2 Total Bilirubin 0.6 AST 24 ALT 66 Alkaline Phosphatase 175 H Total Protein 5.3 L Albumin 2.8 L Lipase 2045.1 H Impressions: Chest X-Ray 03/18/16 14:44 IMPRESSION: NO ACUTE RADIOGRAPHIC FINDING IN THE CHEST. Abdomen Ultrasound 03/19/16 15:02 IMPRESSION: NORMAL RIGHT UPPER QUADRANT ULTRASOUND. Assessment & Plan - Diagnosis (1) Diabetic ketoacidosis Qualifiers: Diabetes mellitus type: type 1 Diabetes mellitus complication detail: without coma Qualified Code(s): E10.10 - Type 1 diabetes mellitus with ketoacidosis without coma Is this a current diagnosis for this admission?: YesPlan: Secondary to medication nonadherence. Acute pancreatitis may be contributing. Continue Lantus 20 units subcutaneous daily. Sliding scale insulin coverage. (2) Noncompliance Is this a current diagnosis for this admission?: Yes (3) Pancreatitis Qualifiers: Chronicity: acute Pancreatitis type: unspecified pancreatitis type Acute pancreatitis complication: no infection or necrosis Qualified Code(s) : K85.90 - Acute pancreatitis without necrosis or infection, unspecified Is this a current diagnosis for this admission?: YesPlan: Patient does not drink alcohol. Triglyceride level normal. Right upper quadrant ultrasound normal. Continue clear liquid diet. Continue IV fluids. Repeat lipase in the morning. (4) Tobacco abuse Is this a current diagnosis for this admission?: Yes (5) Leukocytosis Is this a current diagnosis for this admission?: YesPlan: Resolved. Likely secondary to DKA and pancreatitis. Patient is afebrile. Blood pressure stable. Right upper quadrant ultrasound negative. Chest x-ray negative. Urinalysis negative. Hold off on antibiotics for now. (6) DVT prophylaxis Is this a current diagnosis for this admission?: YesPlan: Lovenox - Time Time Spent with patient: 35 or more minutes
[2016-03-20] MEDS: PROMETHAZINE HCL INJ 25 MG/1 ML VIAL IV PRN (21:51)
[2016-03-21] MEDS: PROMETHAZINE HCL INJ 25 MG/1 ML VIAL IV PRN ×2 (04:27→22:41)
[2016-03-21 05:14] LABS: ABSOLUTE BASOPHILS # (AUTO) 0.1 10^3/uL (0.0-0.2); ABSOLUTE EOSINOPHILS # (AUTO) 0.1 10^3/uL (0.0-0.6); ABSOLUTE LYMPHOCYTES (AUTO) 1.9 10^3/uL (0.5-4.7); ABSOLUTE MONOCYTES (AUTO) 0.7 10^3/uL (0.1-1.4); BASOPHILS % (AUTO) 0.9 % (0-2); EOSINOPHILS % (AUTO) 1.9 % (0-6); HEMATOCRIT 36.5 % (37.9-51.0); HEMOGLOBIN 12.3 g/dL (13.5-17.0); HGB HCT DIFFERENCE 0.4; LYMPHOCYTES % (AUTO) 32.7 % (13-45); MEAN CORPUSCULAR HEMOGLOBIN 30.5 pg (27.0-33.4); MEAN CORPUSCULAR HGB CONC 33.7 g/dL (32.0-36.0); MEAN CORPUSCULAR VOLUME 91 fl (80-97); MONOCYTES % (AUTO) 12.3 % (3-13); RED BLOOD COUNT 4.03 10^6/uL (4.35-5.55); RED CELL DISTRIBUTION WIDTH 14.9 % (11.5-14.0); SEGMENTED NEUTROPHILS % (AUTO) 52.2 % (42-78); WHITE BLOOD COUNT 5.8 10^3/uL (4.0-10.5)
[2016-03-21 05:30] LABS: ALANINE AMINOTRANSFERASE 64 U/L (21-72); ALBUMIN 2.2 g/dL (3.5-5.0); ALKALINE PHOSPHATASE 161 U/L (38-126); ANION GAP 7 (5-19); ASPARTATE AMINO TRANSFERASE 41 U/L (17-59); BILIRUBIN,TOTAL 0.5 mg/dL (0.2-1.3); BLOOD UREA NITROGEN 7 mg/dL (7-20); CALCIUM 8.2 mg/dL (8.4-10.2); CARBON DIOXIDE 26 mmol/L (22-30); CHLORIDE 104 mmol/L (98-107); CREATININE RESULT 0.71 mg/dL (0.52-1.25); GLUCOSE 97 mg/dL (75-110); POTASSIUM 3.4 mmol/L (3.6-5.0); SODIUM 136.7 mmol/L (137-145); TOTAL PROTEIN 4.9 g/dL (6.3-8.2)
[2016-03-21 05:40] LABS: LIPASE 2599.5 U/L (23-300)
[2016-03-21] MEDS ORDERED: POTASSI CL 20 MEQ/50 ML RIDER 50 ML IV ONE (06:53)
[2016-03-21] MEDS: ONDANSETRON HCL INJ/PF 4 MG/2 ML SDV IV PRN (08:00)
[2016-03-21] MEDS: ENOXAPARIN SODIUM INJ 40 MG/0.4 ML DISP.SYRIN SUBCUT SCH (08:00)
[2016-03-21] MEDS: FAMOTIDINE INJ/PF 20 MG/2 ML SDV IV SCH ×2 (08:00→22:41)
[2016-03-21] MEDS: POTASSI CL 20 MEQ/NS 1L 1,000 ML IV PRN (08:50)
[2016-03-21] MEDS ORDERED: POTASSI CL 20 MEQ/NS 1L 1,000 ML IV PRN (11:31)
--- NOTE | 2016-03-21 11:34 | PDOC PROGRESS REPORT ---
Subjective Progress Note for:: 03/21/16 Subjective:: Patient has no further abdominal pain, nausea, vomiting. He would like to advance his diet. Patient denies fever, chills, headache, new focal weakness, chest pain, shortness of breath, abdominal pain, nausea, vomiting, diarrhea, constipation. Physical Exam Vital Signs: Temp Pulse Resp BP Pulse Ox 98.3 F 76 16 126/89 H 100 03/21/16 07:59 03/21/16 07:59 03/21/16 07:59 03/21/16 07:59 03/21/16 07:59 Intake & Output 03/20/16 03/21/16 03/22/16 06:59 06:59 06:59 Intake Total 5037 3840 Output Total 0 Balance 5037 3840 Weight 69.4 kg 69.7 kg GENERAL: No acute distress HEENT: Conjunctiva clear, nonicteric, moist mucous membranes, no JVD, midline trachea RESPIRATORY: Clear to auscultation bilaterally, no wheezes, no rhonchi CARDIAC: Regular rate and rhythm, no murmurs/gallops/rubs ABDOMEN: Soft, nondistended, nontender, positive bowel sounds, no rebound, no guarding EXTREMETIES: No edema, cyanosis, clubbing NEUROLOGIC: Alert, oriented to person/place/time, CN's grossly intact, no focal deficits SKIN: No rash, wounds PSYCH: Normal mood, normal affect Results Laboratory Results: 03/21/16 05:00 03/21/16 05:00 03/21/16 03/21/16 05:00 05:00 WBC 5.8 RBC 4.03 L Hgb 12.3 L Hct 36.5 L MCV 91 MCH 30.5 MCHC 33.7 RDW 14.9 H Plt Count 131 L Seg Neutrophils % 52.2 Lymphocytes % 32.7 Monocytes % 12.3 Eosinophils % 1.9 Basophils % 0.9 Absolute Neutrophils 3.0 Absolute Lymphocytes 1.9 Absolute Monocytes 0.7 Absolute Eosinophils 0.1 Absolute Basophils 0.1 Sodium 136.7 L Potassium 3.4 L Chloride 104 Carbon Dioxide 26 Anion Gap 7 BUN 7 Creatinine 0.71 Est GFR ( Amer) > 60 Est GFR (Non-Af Amer) > 60 Glucose 97 Calcium 8.2 L Total Bilirubin 0.5 AST 41 ALT 64 Alkaline Phosphatase 161 H Total Protein 4.9 L Albumin 2.2 L Lipase 2599.5 H Impressions: Chest X-Ray 03/18/16 14:44 IMPRESSION: NO ACUTE RADIOGRAPHIC FINDING IN THE CHEST. Abdomen Ultrasound 03/19/16 15:02 IMPRESSION: NORMAL RIGHT UPPER QUADRANT ULTRASOUND. Abdomen/Pelvis CT 03/21/16 00:00 IMPRESSION: Minimal intra-abdominal and pelvic ascitic fluid is noted above. No CT evidence for pancreatitis. Other findings as noted above. Assessment & Plan - Diagnosis (1) Diabetic ketoacidosis Qualifiers: Diabetes mellitus type: type 1 Diabetes mellitus complication detail: without coma Qualified Code(s): E10.10 - Type 1 diabetes mellitus with ketoacidosis without coma Is this a current diagnosis for this admission?: YesPlan: Secondary to medication nonadherence. Acute pancreatitis may be contributing. Continue Lantus 20 units subcutaneous daily. Sliding scale insulin coverage. (2) Pancreatitis Qualifiers: Chronicity: acute Pancreatitis type: unspecified pancreatitis type Acute pancreatitis complication: no infection or necrosis Qualified Code(s) : K85.90 - Acute pancreatitis without necrosis or infection, unspecified Is this a current diagnosis for this admission?: YesPlan: Lipase remains elevated, however CT scan shows no acute process in patient has symptomatically resolved. Patient does not drink alcohol. Triglyceride level normal. Right upper quadrant ultrasound normal. Advance diet as tolerated. Continue IV fluids. Repeat lipase in the morning. (3) Noncompliance Is this a current diagnosis for this admission?: Yes (4) Tobacco abuse Is this a current diagnosis for this admission?: Yes (5) Leukocytosis Is this a current diagnosis for this admission?: YesPlan: Resolved. Likely secondary to DKA and pancreatitis. Patient is afebrile. Blood pressure stable. Right upper quadrant ultrasound negative. Chest x-ray negative. Urinalysis negative. (6) DVT prophylaxis Is this a current diagnosis for this admission?: YesPlan: Lovenox - Time Time Spent with patient: 35 or more minutes Anticipated discharge: Home Within: within 24 hours
[2016-03-21] MEDS: INSULIN LISPRO 100 UNIT/ML 3 ML VIAL SUBCUT PRN (22:40)
[2016-03-22 07:11] LABS: ABSOLUTE EOSINOPHILS # (AUTO) 0.2 10^3/uL (0.0-0.6); ABSOLUTE LYMPHOCYTES (AUTO) 1.5 10^3/uL (0.5-4.7); ABSOLUTE MONOCYTES (AUTO) 0.6 10^3/uL (0.1-1.4); ABSOLUTE NEUT (AUTO) 2.2 10^3/uL (1.7-8.2); BASOPHILS % (AUTO) 0.5 % (0-2); EOSINOPHILS % (AUTO) 3.4 % (0-6); HEMATOCRIT 36.7 % (37.9-51.0); HEMOGLOBIN 12.2 g/dL (13.5-17.0); HGB HCT DIFFERENCE -0.1; MEAN CORPUSCULAR HEMOGLOBIN 30.5 pg (27.0-33.4); MEAN CORPUSCULAR HGB CONC 33.4 g/dL (32.0-36.0); MEAN CORPUSCULAR VOLUME 92 fl (80-97); MONOCYTES % (AUTO) 12.5 % (3-13); RED BLOOD COUNT 4.01 10^6/uL (4.35-5.55); RED CELL DISTRIBUTION WIDTH 15.2 % (11.5-14.0); SEGMENTED NEUTROPHILS % (AUTO) 49.6 % (42-78); WHITE BLOOD COUNT 4.5 10^3/uL (4.0-10.5)
[2016-03-22 07:29] LABS: ANION GAP 6 (5-19); BLOOD UREA NITROGEN 10 mg/dL (7-20); CALCIUM 8.5 mg/dL (8.4-10.2); CARBON DIOXIDE 23 mmol/L (22-30); CHLORIDE 105 mmol/L (98-107); CREATININE RESULT 0.75 mg/dL (0.52-1.25); GLUCOSE 267 mg/dL (75-110); POTASSIUM 4.2 mmol/L (3.6-5.0); SODIUM 134.4 mmol/L (137-145)
[2016-03-22 07:50] LABS: LIPASE 6492.6 U/L (23-300)
[2016-03-22] MEDS: INSULIN LISPRO 100 UNIT/ML 3 ML VIAL SUBCUT PRN (09:00)
[2016-03-22] MEDS: FAMOTIDINE INJ/PF 20 MG/2 ML SDV IV SCH ×2 (09:00→21:59)
[2016-03-22] MEDS: ONDANSETRON HCL INJ/PF 4 MG/2 ML SDV IV PRN (09:01)
[2016-03-22] MEDS: ENOXAPARIN SODIUM INJ 40 MG/0.4 ML DISP.SYRIN SUBCUT SCH (09:08)
[2016-03-22] MEDS ORDERED: INSULIN GLARGINE,HUM.REC.ANLOG 300 UNIT/3 ML INSULN.PEN SUBCUT SCH (10:00)
--- NOTE | 2016-03-22 13:42 | PDOC PROGRESS REPORT ---
Subjective Progress Note for:: 03/22/16 Subjective:: Patient has nausea and abdominal fullness after meals today. After I notified patient that he would be nothing by mouth today nursing reported that patient was eating a [employer] sandwich in the room. Patient denies fever, chills, headache, new focal weakness, chest pain, shortness of breath, vomiting, diarrhea, constipation. Physical Exam Vital Signs: Temp Pulse Resp BP Pulse Ox 97.9 F 96 16 135/81 H 100 03/22/16 08:00 03/22/16 08:00 03/22/16 08:00 03/22/16 08:00 03/22/16 08:00 Intake & Output 03/21/16 03/22/16 03/23/16 06:59 06:59 06:59 Intake Total 3840 5853 Balance 3840 5853 Weight 69.7 kg 69.7 kg GENERAL: No acute distress HEENT: Conjunctiva clear, nonicteric, moist mucous membranes, no JVD, midline trachea RESPIRATORY: Clear to auscultation bilaterally, no wheezes, no rhonchi CARDIAC: Regular rate and rhythm, no murmurs/gallops/rubs ABDOMEN: Soft, nondistended, nontender, positive bowel sounds, no rebound, no guarding EXTREMETIES: No edema, cyanosis, clubbing NEUROLOGIC: Alert, oriented to person/place/time, CN's grossly intact, no focal deficits SKIN: No rash, wounds PSYCH: Normal mood, normal affect Results Laboratory Results: 03/22/16 06:37 03/22/16 06:37 03/22/16 03/22/16 06:37 06:37 WBC 4.5 RBC 4.01 L Hgb 12.2 L Hct 36.7 L MCV 92 MCH 30.5 MCHC 33.4 RDW 15.2 H Plt Count 144 L Seg Neutrophils % 49.6 Lymphocytes % 34.0 Monocytes % 12.5 Eosinophils % 3.4 Basophils % 0.5 Absolute Neutrophils 2.2 Absolute Lymphocytes 1.5 Absolute Monocytes 0.6 Absolute Eosinophils 0.2 Absolute Basophils 0.0 Sodium 134.4 L Potassium 4.2 Chloride 105 Carbon Dioxide 23 Anion Gap 6 BUN 10 Creatinine 0.75 Est GFR ( Amer) > 60 Est GFR (Non-Af Amer) > 60 Glucose 267 H Calcium 8.5 Lipase 6492.6 H Impressions: Chest X-Ray 03/18/16 14:44 IMPRESSION: NO ACUTE RADIOGRAPHIC FINDING IN THE CHEST. Abdomen Ultrasound 03/19/16 15:02 IMPRESSION: NORMAL RIGHT UPPER QUADRANT ULTRASOUND. Abdomen/Pelvis CT 03/21/16 00:00 IMPRESSION: Minimal intra-abdominal and pelvic ascitic fluid is noted above. No CT evidence for pancreatitis. Other findings as noted above. Assessment & Plan - Diagnosis (1) Diabetic ketoacidosis Qualifiers: Diabetes mellitus type: type 1 Diabetes mellitus complication detail: without coma Qualified Code(s): E10.10 - Type 1 diabetes mellitus with ketoacidosis without coma Is this a current diagnosis for this admission?: YesPlan: Secondary to medication nonadherence. Acute pancreatitis may be contributing. Continue Lantus 20 units subcutaneous daily. Sliding scale insulin coverage. (2) Pancreatitis Qualifiers: Chronicity: acute Pancreatitis type: unspecified pancreatitis type Acute pancreatitis complication: no infection or necrosis Qualified Code(s) : K85.90 - Acute pancreatitis without necrosis or infection, unspecified Is this a current diagnosis for this admission?: YesPlan: Lipase has increased since diet was advanced yesterday, however CT scan shows no acute process. I will make patient nothing by mouth again and resume IV fluids. Repeat lipase in the morning. Of note patient was eating [employer] sandwich in the room per nursing after being notified that he would be nothing by mouth today. Patient does not drink alcohol. Triglyceride level normal. Right upper quadrant ultrasound normal. I would like to discuss this with Dr. Campa of GI tomorrow. I wonder if patient could have autoimmune pancreatitis given idiopathic pancreatitis and onset of type I diabetes 4 years ago at age 32. (3) Noncompliance Is this a current diagnosis for this admission?: Yes (4) Tobacco abuse Is this a current diagnosis for this admission?: Yes (5) Leukocytosis Is this a current diagnosis for this admission?: Yes (6) DVT prophylaxis Is this a current diagnosis for this admission?: Yes - Time Time Spent with patient: 25-34 minutes
[2016-03-22] MEDS: POTASSI CL 20 MEQ/NS 1L 1,000 ML IV PRN (19:45)
[2016-03-22] MEDS: HYDROMORPHONE HCL INJ/PF 2 MG/ML AMPULE IV PRN (22:00)
[2016-03-23] MEDS ORDERED: LANSOPRAZOLE 30 MG TAB.RAP.DR PO ONE (01:33)
[2016-03-23] MEDS: PROMETHAZINE HCL INJ 25 MG/1 ML VIAL IV PRN ×4 (02:09→23:13)
[2016-03-23] MEDS: HYDROMORPHONE HCL INJ/PF 2 MG/ML AMPULE IV PRN ×5 (02:09→21:11)
[2016-03-23] MEDS: POTASSI CL 20 MEQ/NS 1L 1,000 ML IV PRN ×3 (05:51→21:10)
[2016-03-23 06:12] LABS: ABSOLUTE EOSINOPHILS # (AUTO) 0.2 10^3/uL (0.0-0.6); ABSOLUTE LYMPHOCYTES (AUTO) 2.3 10^3/uL (0.5-4.7); ABSOLUTE MONOCYTES (AUTO) 0.7 10^3/uL (0.1-1.4); ABSOLUTE NEUT (AUTO) 2.2 10^3/uL (1.7-8.2); BASOPHILS % (AUTO) 0.5 % (0-2); EOSINOPHILS % (AUTO) 3.7 % (0-6); HEMATOCRIT 35.9 % (37.9-51.0); HGB HCT DIFFERENCE 0.1; LYMPHOCYTES % (AUTO) 42.2 % (13-45); MEAN CORPUSCULAR HEMOGLOBIN 30.4 pg (27.0-33.4); MEAN CORPUSCULAR HGB CONC 33.4 g/dL (32.0-36.0); MEAN CORPUSCULAR VOLUME 91 fl (80-97); RED BLOOD COUNT 3.95 10^6/uL (4.35-5.55); RED CELL DISTRIBUTION WIDTH 15.1 % (11.5-14.0); SEGMENTED NEUTROPHILS % (AUTO) 40.6 % (42-78); WHITE BLOOD COUNT 5.4 10^3/uL (4.0-10.5)
[2016-03-23 06:35] LABS: ANION GAP 6 (5-19); BLOOD UREA NITROGEN 12 mg/dL (7-20); CALCIUM 8.5 mg/dL (8.4-10.2); CARBON DIOXIDE 23 mmol/L (22-30); CHLORIDE 108 mmol/L (98-107); CREATININE RESULT 0.68 mg/dL (0.52-1.25); GLUCOSE 53 mg/dL (75-110); POTASSIUM 4.1 mmol/L (3.6-5.0); SODIUM 136.8 mmol/L (137-145)
[2016-03-23 06:43] LABS: LIPASE 3310.8 U/L (23-300)
[2016-03-23] MEDS: ONDANSETRON HCL INJ/PF 4 MG/2 ML SDV IV PRN (06:48)
[2016-03-23] MEDS: FAMOTIDINE INJ/PF 20 MG/2 ML SDV IV SCH ×2 (11:25→21:10)
[2016-03-23] MEDS: ENOXAPARIN SODIUM INJ 40 MG/0.4 ML DISP.SYRIN SUBCUT SCH (11:31)
[2016-03-23] MEDS: INSULIN GLARGINE,HUM.REC.ANLOG 300 UNIT/3 ML INSULN.PEN SUBCUT SCH (11:31)
--- NOTE | 2016-03-23 14:00 | PDOC PROGRESS REPORT ---
Subjective Progress Note for:: 03/23/16 Subjective:: Patient's nausea and abdominal fullness have improved today. Patient denies fever, chills, headache, new focal weakness, chest pain, shortness of breath, abdominal pain, nausea, vomiting, diarrhea, constipation. Physical Exam Vital Signs: Temp Pulse Resp BP Pulse Ox 97.5 F 77 19 136/91 H 100 03/23/16 11:18 03/23/16 11:18 03/23/16 11:18 03/23/16 11:18 03/23/16 11:18 Intake & Output 03/22/16 03/23/16 03/24/16 06:59 06:59 06:59 Intake Total 5853 3350 118 Balance 5853 3350 118 Weight 69.7 kg 69.7 kg GENERAL: No acute distress HEENT: Conjunctiva clear, nonicteric, moist mucous membranes, no JVD, midline trachea RESPIRATORY: Clear to auscultation bilaterally, no wheezes, no rhonchi CARDIAC: Regular rate and rhythm, no murmurs/gallops/rubs ABDOMEN: Soft, nondistended, nontender, positive bowel sounds, no rebound, no guarding EXTREMETIES: No edema, cyanosis, clubbing NEUROLOGIC: Alert, oriented to person/place/time, CN's grossly intact, no focal deficits SKIN: No rash, wounds PSYCH: Normal mood, normal affect Results Laboratory Results: 03/23/16 05:28 03/23/16 05:28 03/23/16 03/23/16 05:28 05:28 WBC 5.4 RBC 3.95 L Hgb 12.0 L Hct 35.9 L MCV 91 MCH 30.4 MCHC 33.4 RDW 15.1 H Plt Count 149 L Seg Neutrophils % 40.6 L Lymphocytes % 42.2 Monocytes % 13.0 Eosinophils % 3.7 Basophils % 0.5 Absolute Neutrophils 2.2 Absolute Lymphocytes 2.3 Absolute Monocytes 0.7 Absolute Eosinophils 0.2 Absolute Basophils 0.0 Sodium 136.8 L Potassium 4.1 Chloride 108 H Carbon Dioxide 23 Anion Gap 6 BUN 12 Creatinine 0.68 Est GFR ( Amer) > 60 Est GFR (Non-Af Amer) > 60 Glucose 53 L Calcium 8.5 Lipase 3310.8 H Impressions: Chest X-Ray 03/18/16 14:44 IMPRESSION: NO ACUTE RADIOGRAPHIC FINDING IN THE CHEST. Abdomen Ultrasound 03/19/16 15:02 IMPRESSION: NORMAL RIGHT UPPER QUADRANT ULTRASOUND. Abdomen/Pelvis CT 03/21/16 00:00 IMPRESSION: Minimal intra-abdominal and pelvic ascitic fluid is noted above. No CT evidence for pancreatitis. Other findings as noted above. Assessment & Plan - Diagnosis (1) Pancreatitis Qualifiers: Chronicity: acute Pancreatitis type: unspecified pancreatitis type Acute pancreatitis complication: no infection or necrosis Qualified Code(s) : K85.90 - Acute pancreatitis without necrosis or infection, unspecified Is this a current diagnosis for this admission?: YesPlan: Start full liquid diet. Continue IV fluids. Repeat lipase in the morning. I would like to consult Dr. Barrios of GI for recommendations given idiopathic nature of pancreatitis. Patient does not drink alcohol. Triglyceride level normal. Right upper quadrant ultrasound normal. (2) Diabetic ketoacidosis Qualifiers: Diabetes mellitus type: type 1 Diabetes mellitus complication detail: without coma Qualified Code(s): E10.10 - Type 1 diabetes mellitus with ketoacidosis without coma Is this a current diagnosis for this admission?: YesPlan: Secondary to medication nonadherence. Acute pancreatitis may be contributing. Continue Lantus 20 units subcutaneous daily. Sliding scale insulin coverage. (3) Noncompliance Is this a current diagnosis for this admission?: Yes (4) Tobacco abuse Is this a current diagnosis for this admission?: Yes (5) Leukocytosis Is this a current diagnosis for this admission?: YesPlan: Resolved. Likely secondary to DKA and pancreatitis. Patient is afebrile. Blood pressure stable. Right upper quadrant ultrasound negative. Chest x-ray negative. Urinalysis negative. CT abdomen/pelvis with no acute findings. (6) DVT prophylaxis Is this a current diagnosis for this admission?: YesPlan: Lovenox - Time Time Spent with patient: 35 or more minutes
[2016-03-23] MEDS: INSULIN LISPRO 100 UNIT/ML 3 ML VIAL SUBCUT PRN (21:10)
[2016-03-24] MEDS: ONDANSETRON HCL INJ/PF 4 MG/2 ML SDV IV PRN ×3 (02:59→12:05)
[2016-03-24] MEDS: HYDROMORPHONE HCL INJ/PF 2 MG/ML AMPULE IV PRN ×2 (03:57→08:15)
[2016-03-24] MEDS: POTASSI CL 20 MEQ/NS 1L 1,000 ML IV PRN ×3 (03:58→20:06)
[2016-03-24 06:11] LABS: ABSOLUTE EOSINOPHILS # (AUTO) 0.2 10^3/uL (0.0-0.6); ABSOLUTE LYMPHOCYTES (AUTO) 1.4 10^3/uL (0.5-4.7); ABSOLUTE MONOCYTES (AUTO) 0.5 10^3/uL (0.1-1.4); BASOPHILS % (AUTO) 0.8 % (0-2); EOSINOPHILS % (AUTO) 5.7 % (0-6); HEMATOCRIT 33.2 % (37.9-51.0); HEMOGLOBIN 11.2 g/dL (13.5-17.0); HGB HCT DIFFERENCE 0.4; MEAN CORPUSCULAR HEMOGLOBIN 30.5 pg (27.0-33.4); MEAN CORPUSCULAR HGB CONC 33.6 g/dL (32.0-36.0); MEAN CORPUSCULAR VOLUME 91 fl (80-97); MONOCYTES % (AUTO) 12.9 % (3-13); RED BLOOD COUNT 3.66 10^6/uL (4.35-5.55); RED CELL DISTRIBUTION WIDTH 15.3 % (11.5-14.0); SEGMENTED NEUTROPHILS % (AUTO) 46.6 % (42-78); WHITE BLOOD COUNT 4.2 10^3/uL (4.0-10.5)
[2016-03-24 06:28] LABS: ALANINE AMINOTRANSFERASE 70 U/L (21-72); ALBUMIN 2.2 g/dL (3.5-5.0); ALKALINE PHOSPHATASE 145 U/L (38-126); ASPARTATE AMINO TRANSFERASE 54 U/L (17-59); BILIRUBIN,TOTAL 0.3 mg/dL (0.2-1.3); BLOOD UREA NITROGEN 4 mg/dL (7-20); CALCIUM 8.3 mg/dL (8.4-10.2); CARBON DIOXIDE 25 mmol/L (22-30); CHLORIDE 109 mmol/L (98-107); GLUCOSE 74 mg/dL (75-110); TOTAL PROTEIN 4.9 g/dL (6.3-8.2)
[2016-03-24 06:41] LABS: LIPASE 2004.6 U/L (23-300)
[2016-03-24 06:47] LABS: POTASSIUM 4.2 mmol/L (3.6-5.0)
[2016-03-24 07:05] LABS: ANION GAP 4 (5-19)
[2016-03-24] MEDS: PROMETHAZINE HCL INJ 25 MG/1 ML VIAL IV PRN ×2 (08:15→16:24)
[2016-03-24] MEDS: FAMOTIDINE INJ/PF 20 MG/2 ML SDV IV SCH ×2 (10:18→21:26)
[2016-03-24] MEDS: INSULIN GLARGINE,HUM.REC.ANLOG 300 UNIT/3 ML INSULN.PEN SUBCUT SCH (10:19)
[2016-03-24] MEDS: ENOXAPARIN SODIUM INJ 40 MG/0.4 ML DISP.SYRIN SUBCUT SCH (10:25)
--- NOTE | 2016-03-24 11:28 | PDOC PROGRESS REPORT ---
Subjective Progress Note for:: 03/24/16 Subjective:: Patient has some left upper quadrant pain but reports is tolerable. Physical Exam Vital Signs: Temp Pulse Resp BP Pulse Ox 97.7 F 88 16 132/82 H 99 03/24/16 06:45 03/24/16 06:45 03/24/16 06:45 03/24/16 06:45 03/24/16 06:45 Intake & Output 03/23/16 03/24/16 03/25/16 06:59 06:59 06:59 Intake Total 3350 4258 Balance 3350 4258 Weight 69.7 kg 67.2 kg General appearance: PRESENT: no acute distress Eye exam: PRESENT: conjunctiva pink. ABSENT: scleral icterus Mouth exam: PRESENT: moist, tongue midline Neck exam: ABSENT: JVD Respiratory exam: PRESENT: clear to auscultation alfonso. ABSENT: rales, rhonchi, wheezes Cardiovascular exam: PRESENT: RRR. ABSENT: diastolic murmur, rubs, systolic murmur GI/Abdominal exam: PRESENT: normal bowel sounds, soft, tenderness - Mild left upper quadrant tenderness but no guarding or rebound.. ABSENT: distended, guarding, mass, organolmegaly, rebound Extremities exam: ABSENT: calf tenderness, clubbing, pedal edema Neurological exam: PRESENT: alert, awake, oriented to person, oriented to place , oriented to time, oriented to situation Psychiatric exam: PRESENT: appropriate affect Skin exam: PRESENT: dry, intact, warm. ABSENT: cyanosis, rash Results Laboratory Results: 03/24/16 05:32 03/24/16 05:32 03/24/16 03/24/16 05:32 05:32 WBC 4.2 RBC 3.66 L Hgb 11.2 L Hct 33.2 L MCV 91 MCH 30.5 MCHC 33.6 RDW 15.3 H Plt Count 198 Seg Neutrophils % 46.6 Lymphocytes % 34.0 Monocytes % 12.9 Eosinophils % 5.7 Basophils % 0.8 Absolute Neutrophils 2.0 Absolute Lymphocytes 1.4 Absolute Monocytes 0.5 Absolute Eosinophils 0.2 Absolute Basophils 0.0 Sodium 138.0 Potassium 4.2 Chloride 109 H Carbon Dioxide 25 Anion Gap 4 L BUN 4 L Creatinine 0.60 Est GFR ( Amer) > 60 Est GFR (Non-Af Amer) > 60 Glucose 74 L Calcium 8.3 L Total Bilirubin 0.3 AST 54 ALT 70 Alkaline Phosphatase 145 H Total Protein 4.9 L Albumin 2.2 L Lipase 2004.6 H Impressions: Chest X-Ray 03/18/16 14:44 IMPRESSION: NO ACUTE RADIOGRAPHIC FINDING IN THE CHEST. Abdomen Ultrasound 03/19/16 15:02 IMPRESSION: NORMAL RIGHT UPPER QUADRANT ULTRASOUND. Abdomen/Pelvis CT 03/21/16 00:00 IMPRESSION: Minimal intra-abdominal and pelvic ascitic fluid is noted above. No CT evidence for pancreatitis. Other findings as noted above. Assessment & Plan - Diagnosis (1) Diabetic ketoacidosis Qualifiers: Diabetes mellitus type: type 1 Diabetes mellitus complication detail: without coma Qualified Code(s): E10.10 - Type 1 diabetes mellitus with ketoacidosis without coma Is this a current diagnosis for this admission?: YesPlan: The patient's DKA has resolved. We'll continue with the insulin. (2) Pancreatitis Qualifiers: Chronicity: acute Pancreatitis type: unspecified pancreatitis type Acute pancreatitis complication: no infection or necrosis Qualified Code(s) : K85.90 - Acute pancreatitis without necrosis or infection, unspecified Is this a current diagnosis for this admission?: YesPlan: The patient is still having pain and his lipase elevated but has improved. We' ll put the patient on a regular diet today and stop his IV pain medications. If he is able to tolerate diet with just oxycodone we will hopefully discharge home later today. - Time Time Spent with patient: 25-34 minutes - Inpatient Certification Medical Necessity: Need Close Monitoring Due to Risk of Patient Decompensation - Plan Summary Plan Summary: We'll try on a diet. If he is unable to tolerate his diet we will make him nothing by mouth. If he can tolerate his diet with acceptable amount of pain we will plan for discharge home later today.
[2016-03-24] MEDS: INSULIN LISPRO 100 UNIT/ML 3 ML VIAL SUBCUT PRN ×3 (12:05→21:26)
[2016-03-24] MEDS: OXYCODONE HCL IR 5 MG TABLET PO PRN ×3 (12:05→21:26)
--- NOTE | 2016-03-24 18:28 | PDOC CONSULTATION ---
Consultation Consult Date: 03/24/16 History of Present Illness Admission Date/PCP: 03/18/16 14:38 History of Present Illness: This is a 36-year-old patient who was admitted to the emergency room with abdominal pain, vomiting, DKA, and pancreatitis. According to the patient he started having epigastric pain about a week ago. The pain has been constant and was worse the first two days. He still has some pain but not as bad. He vomited the second day of his illness. His lipase was 3700 on admission and it went as high as 400 on 03/22/2016. It is down to 2000 today. A CAT scan of his abdomen showed minimum intra-abdominal and pelvic ascitic fluid but the pancreas appeared normal on CAT scan. He has not been on any new medications in the last few weeks, denies alcohol use or trauma to the abdomen. His diabetes has not been well controlled as he is not very compliant. Past Medical History Cardiac Medical History: Reports: Hyperlipidema, Hypertension Pulmonary Medical History: Reports: None Denies: Tuberculosis EENT Medical History: Reports: None Neurological Medical History: Reports: None Endocrine Medical History: Reports: Diabetes Mellitus Type 1 - 4 years Denies: Diabetes Mellitus Type 2, Hyperthyroidism, Hypothyroidism Renal/ Medical History: Reports: None GI Medical History: Reports: None Musculoskeltal Medical History: Reports: None Skin Medical History: Reports: None Psychiatric Medical History: Reports: Depression Past Surgical History Past Surgical History: Reports: Orthopedic Surgery - back Denies: Appendectomy, Cholecystectomy, Coronary Artery Bypass Graft, Gastric Bypass Surgery, Herniorrhaphy, Pacemaker, Tonsillectomy Social History Lives with: Family, Spouse/Significant other Smoking Status: Current Every Day Smoker Cigarettes Packs Per Day: 1 Number of Years Smokin Last Time Smoked: today Frequency of Alcohol Use: None Hx Recreational Drug Use: Yes Drugs: Marijuana Hx Prescription Drug Abuse: No - Advance Directive Resuscitation Status: Full Code Family History Family History: DM, Hyperlipidemia, Hypertension Parental Family History Reviewed: No Children Family History Reviewed: NA Sibling(s) Family History Reviewed.: NA Medication/Allergy Home Medications: Insulin Lispro [Humalog Insulin (Lispro) 100 unit/mL] 0 units SQ ASDIR PRN 03/18 Allergies/Adverse Reactions: No Known Allergies Allergy (Verified 03/18/16 12:12) Review of Systems All systems: reviewed and no additional remarkable complaints except as stated Physical Exam Vital Signs: Temp Pulse Resp BP Pulse Ox 98.0 F 91 14 144/96 H 100 03/24/16 15:29 03/24/16 15:29 03/24/16 15:29 03/24/16 15:29 03/24/16 15:29 Intake & Output 03/23/16 03/24/16 03/25/16 06:59 06:59 06:59 Intake Total 3350 4258 855 Balance 3350 4258 855 Weight 69.7 kg 67.2 kg Exam: General: Patient is alert and looks well. HEENT: There is no pallor or jaundice. PERRLA. Oropharynx normal Respiratory: No chest deformity. No respiratory distress. Chest wall palpitation was unremarkable. Breath sounds were normal Cardiovascular: Heart sounds 1 and 2 normal with no murmurs. Abdominal: Not distended. Soft and nontender. Liver and spleen not palpable. No ascites demonstrated. Bowel sounds active. Rectal examination was deferred. Extremities: No edema Neurological: Alert and oriented x4. Grossly nonfocal. Normal speech Skin: No significant rash Psychological: Normal affect Results Laboratory Results: 03/24/16 05:32 03/24/16 05:32 03/24/16 03/24/16 05:32 05:32 WBC 4.2 RBC 3.66 L Hgb 11.2 L Hct 33.2 L MCV 91 MCH 30.5 MCHC 33.6 RDW 15.3 H Plt Count 198 Seg Neutrophils % 46.6 Lymphocytes % 34.0 Monocytes % 12.9 Eosinophils % 5.7 Basophils % 0.8 Absolute Neutrophils 2.0 Absolute Lymphocytes 1.4 Absolute Monocytes 0.5 Absolute Eosinophils 0.2 Absolute Basophils 0.0 Sodium 138.0 Potassium 4.2 Chloride 109 H Carbon Dioxide 25 Anion Gap 4 L BUN 4 L Creatinine 0.60 Est GFR ( Amer) > 60 Est GFR (Non-Af Amer) > 60 Glucose 74 L Calcium 8.3 L Total Bilirubin 0.3 AST 54 ALT 70 Alkaline Phosphatase 145 H Total Protein 4.9 L Albumin 2.2 L Lipase 2004.6 H Impressions: Chest X-Ray 03/18/16 14:44 IMPRESSION: NO ACUTE RADIOGRAPHIC FINDING IN THE CHEST. Abdomen Ultrasound 03/19/16 15:02 IMPRESSION: NORMAL RIGHT UPPER QUADRANT ULTRASOUND. Abdomen/Pelvis CT 03/21/16 00:00 IMPRESSION: Minimal intra-abdominal and pelvic ascitic fluid is noted above. No CT evidence for pancreatitis. Other findings as noted above. Assessment & Plan - Diagnosis (1) Acute pancreatitis without infection or necrosis Qualifiers: Pancreatitis type: unspecified pancreatitis type Qualified Code(s): K85.90 - Acute pancreatitis without necrosis or infection, unspecified Is this a current diagnosis for this admission?: YesPlan: He came in with pain and elevated lipase consistent with acute pancreatitis but his pancreas appeared normal on CAT scan. He is doing better overall. The etiology for his pancreatitis is unclear. He does abuse cocaine. He may require an EUS in the future especially if he has another episode. I will follow him in the office (2) Epigastric abdominal pain Is this a current diagnosis for this admission?: Yes (3) Noncompliance Is this a current diagnosis for this admission?: Yes
[2016-03-25] MEDS: OXYCODONE HCL IR 5 MG TABLET PO PRN ×2 (01:29→08:25)
[2016-03-25] MEDS: PROMETHAZINE HCL INJ 25 MG/1 ML VIAL IV PRN ×2 (01:29→08:24)
[2016-03-25] MEDS: POTASSI CL 20 MEQ/NS 1L 1,000 ML IV PRN (02:41)
[2016-03-25 07:02] LABS: ABSOLUTE BASOPHILS # (AUTO) 0.1 10^3/uL (0.0-0.2); ABSOLUTE EOSINOPHILS # (AUTO) 0.2 10^3/uL (0.0-0.6); ABSOLUTE LYMPHOCYTES (AUTO) 1.9 10^3/uL (0.5-4.7); ABSOLUTE MONOCYTES (AUTO) 0.6 10^3/uL (0.1-1.4); ABSOLUTE NEUT (AUTO) 3.1 10^3/uL (1.7-8.2); EOSINOPHILS % (AUTO) 3.1 % (0-6); HEMATOCRIT 37.6 % (37.9-51.0); HEMOGLOBIN 12.6 g/dL (13.5-17.0); HGB HCT DIFFERENCE 0.2; LYMPHOCYTES % (AUTO) 33.2 % (13-45); MEAN CORPUSCULAR HEMOGLOBIN 30.2 pg (27.0-33.4); MEAN CORPUSCULAR HGB CONC 33.4 g/dL (32.0-36.0); MEAN CORPUSCULAR VOLUME 90 fl (80-97); MONOCYTES % (AUTO) 9.6 % (3-13); RED BLOOD COUNT 4.17 10^6/uL (4.35-5.55); SEGMENTED NEUTROPHILS % (AUTO) 53.1 % (42-78); WHITE BLOOD COUNT 5.8 10^3/uL (4.0-10.5)
[2016-03-25 07:24] LABS: ANION GAP 8 (5-19); BLOOD UREA NITROGEN 9 mg/dL (7-20); CALCIUM 9.3 mg/dL (8.4-10.2); CARBON DIOXIDE 26 mmol/L (22-30); CHLORIDE 103 mmol/L (98-107); CREATININE RESULT 0.66 mg/dL (0.52-1.25); GLUCOSE 250 mg/dL (75-110); LIPASE 1756.5 U/L (23-300); SODIUM 136.6 mmol/L (137-145)
[2016-03-25] MEDS: INSULIN LISPRO 100 UNIT/ML 3 ML VIAL SUBCUT PRN ×2 (08:21→10:47)
[2016-03-25] MEDS: ENOXAPARIN SODIUM INJ 40 MG/0.4 ML DISP.SYRIN SUBCUT SCH (08:27)
[2016-03-25] MEDS: FAMOTIDINE INJ/PF 20 MG/2 ML SDV IV SCH (10:47)
[2016-03-25] MEDS: INSULIN GLARGINE,HUM.REC.ANLOG 300 UNIT/3 ML INSULN.PEN SUBCUT SCH (11:42)
[2016-03-25 12:54] VITALS: BP 135/81
--- NOTE | 2016-03-25 13:50 | PDOC DISCHARGE SUMMARY ---
General - Admit/Disc Date/PCP Admission Date/Primary Care Provider: 03/18/16 14:38 Discharge Date: 03/25/16 - Discharge Diagnosis (1) Diabetic ketoacidosis Is this a current diagnosis for this admission?: Yes (2) Pancreatitis Is this a current diagnosis for this admission?: Yes - Additional Information Resuscitation Status: Full Code Discharge Diet: Diabetic Discharge Activity: Activity As Tolerated, Balance Activity w/Rest Home Medications: Insulin Glargine,Hum.rec.anlog [Lantus Insulin 100 Unit/mL] 20 unit SUBCUT DAILY #1 insuln.pen 03/25/16 Insulin Lispro [Humalog Insulin (Lispro) 100 unit/mL] 0 units SQ ASDIR PRN #1 unit 03/25/16 Oxycodone HCl [Oxy-Ir 5 mg Tablet] 5 mg PO Q4HP PRN #30 tablet 03/25/16 Promethazine HCl [Phenergan 25 mg Tablet] 25 mg PO Q4HP PRN #30 tablet 03/25/16 History of Present Illness History of Present Illness: CHESTER MCKEON is a 36 year old male who presented with nausea and vomiting was found to have DKA. Patient had not taken his insulin for several days because of his inability to afford it. Patient also had complaints of left upper quadrant abdominal pain and is found to have pancreatitis. Hospital Course Hospital Course: 36-year-old male who is a type I diabetic who presented with DKA. Patient was treated IV fluids and IV insulin and had resolution of his DKA. The patient also had abdominal pain was found to have pancreatitis. Patient was made nothing by mouth and given IV narcotics with improvement in his symptoms. His lipase was still elevated on the day of discharge but had improved. He was able to tolerate a diet with just taking the oxycodone and he was evaluated by GI who agrees follow him as an outpatient. Patient is discharged home with prescriptions for pain medication as well as for his insulins. Physical Exam Vital Signs: Temp Pulse Resp BP Pulse Ox 98.1 F 96 18 135/81 H 100 03/25/16 12:51 03/25/16 12:51 03/25/16 12:51 03/25/16 12:51 03/25/16 12:51 Intake & Output 03/24/16 03/25/16 03/26/16 06:59 06:59 06:59 Intake Total 4258 3731 Balance 4258 3731 Weight 67.2 kg 67.2 kg General appearance: PRESENT: no acute distress, well-developed, well-nourished Eye exam: PRESENT: conjunctiva pink, EOMI, PERRLA. ABSENT: scleral icterus Mouth exam: PRESENT: moist, tongue midline Neck exam: ABSENT: carotid bruit, JVD, lymphadenopathy, thyromegaly Respiratory exam: PRESENT: clear to auscultation alfonso. ABSENT: rales, rhonchi, wheezes Cardiovascular exam: PRESENT: RRR. ABSENT: diastolic murmur, rubs, systolic murmur GI/Abdominal exam: PRESENT: normal bowel sounds, soft, tenderness - Mild left upper quadrant tenderness but no guarding or rebound.. ABSENT: distended, guarding, mass, organolmegaly, rebound Extremities exam: PRESENT: full ROM. ABSENT: calf tenderness, clubbing, pedal edema Neurological exam: PRESENT: alert, awake, oriented to person, oriented to place , oriented to time, oriented to situation, CN II-XII grossly intact. ABSENT: motor sensory deficit Psychiatric exam: PRESENT: appropriate affect Skin exam: PRESENT: dry, intact, warm. ABSENT: cyanosis, rash Results Laboratory Results: 03/25/16 06:35 03/25/16 06:35 03/25/16 03/25/16 06:35 06:35 WBC 5.8 RBC 4.17 L Hgb 12.6 L Hct 37.6 L MCV 90 MCH 30.2 MCHC 33.4 RDW 15.0 H Plt Count 251 Seg Neutrophils % 53.1 Lymphocytes % 33.2 Monocytes % 9.6 Eosinophils % 3.1 Basophils % 1.0 Absolute Neutrophils 3.1 Absolute Lymphocytes 1.9 Absolute Monocytes 0.6 Absolute Eosinophils 0.2 Absolute Basophils 0.1 Sodium 136.6 L Potassium 5.0 Chloride 103 Carbon Dioxide 26 Anion Gap 8 BUN 9 Creatinine 0.66 Est GFR ( Amer) > 60 Est GFR (Non-Af Amer) > 60 Glucose 250 H Calcium 9.3 Lipase 1756.5 H Impressions: Chest X-Ray 03/18/16 14:44 IMPRESSION: NO ACUTE RADIOGRAPHIC FINDING IN THE CHEST. Abdomen Ultrasound 03/19/16 15:02 IMPRESSION: NORMAL RIGHT UPPER QUADRANT ULTRASOUND. Abdomen/Pelvis CT 03/21/16 00:00 IMPRESSION: Minimal intra-abdominal and pelvic ascitic fluid is noted above. No CT evidence for pancreatitis. Other findings as noted above. Qualifiers PATEINT BEING DISCHARGED WITH ANY OF THE FOLLOWING DIAGNOSIS?: No Plan Discharge Plan: Patient is discharged home in stable condition. He will follow up with primary care in the next 2 weeks and also follow up with Dr. Barrios as an outpatient. Time Spent: Greater than 30 Minutes
== END 2016-03-25 13:15 | disposition home or self-care (01) | DRG 637 ==
LOC: ER 11:55 → EH 14:38 → UNDOADMIN 15:17 → 3S 18:20 → 5 03-24 13:37
PROVIDERS: ADMIT Family Medicine; ATTEND Family Medicine
DX: E10.10 Type 1 diabetes mellitus with ketoacidosis without coma (principal); K85.00 Idiopathic acute pancreatitis without necrosis or infection; I10 Essential (primary) hypertension; E78.00 Pure hypercholesterolemia, unspecified; F32.9 Major depressive disorder, single episode, unspecified; E86.0 Dehydration; F14.10 Cocaine abuse, uncomplicated; F17.210 Nicotine dependence, cigarettes, uncomplicated; Z79.4 Long term (current) use of insulin; Z91.19 Patient's noncompliance with other medical treatment and regimen; D72.829 Elevated white blood cell count, unspecified; Z59.7 Insufficient social insurance and welfare support
CPT/HCPCS: 36415; 71010; 74177; 76705; 80048; 80053; 81001; 82040; 82465; 82784; 82962; 83036; 83690; 83735; 84100; 84478; 85025; 93976; 96361; 96374; 96375; 99285; J1170; J1815; J2270; J2405; J2550; J3480; J3490; J7030; J7120; S0028

== ENCOUNTER 2016-04-13 10:23 | Inpatient (IN) | payer OTHER ==
--- NOTE | 2016-04-13 10:26 | ER Document Report ---
ED Medical Screen (RME) - General Stated Complaint: BREATHING CONCERNS Time seen by provider: 10:25 Mode of Arrival: Wheelchair Information source: Patient Notes: 36-year-old male insulin-dependent diabetic who is complaining of bleeding problems but is in obvious DKA with acetone smell, pulse 130s he was dropped off and no family members are here with him. TRAVEL OUTSIDE OF THE [place] IN LAST 30 DAYS: No - Related Data Allergies/Adverse Reactions: No Known Allergies Allergy (Verified 03/18/16 12:12) Past Medical History - Past Medical History Cardiac Medical History: Reports: Hx Hypercholesterolemia, Hx Hypertension Pulmonary Medical History: Denies: Hx Tuberculosis Endocrine Medical History: Reports: Hx Diabetes Mellitus Type 1 - 4 years. Denies: Hx Diabetes Mellitus Type 2, Hx Graves' Disease, Hx Hyperthyroidism, Hx Hypothyroidism Renal/ Medical History: Denies: Hx Peritoneal Dialysis Psychiatric Medical History: Reports: Hx Depression Past Surgical History: Reports: Hx Orthopedic Surgery - back. Denies: Hx Appendectomy, Hx Bowel Surgery, Hx Cholecystectomy, Hx Coronary Artery Bypass Graft, Hx Gastric Bypass Surgery, Hx Herniorrhaphy, Hx Pacemaker, Hx Tonsillectomy - Immunizations Hx Diphtheria, Pertussis, Tetanus Vaccination: Yes
[2016-04-13] MEDS ORDERED: NORMAL SALINE 1000 ML 2,000 ML IV ONE (10:27)
[2016-04-13] MEDS ORDERED: ONDANSETRON HCL INJ/PF 4 MG/2 ML SDV IV ONE (10:38)
--- NOTE | 2016-04-13 10:42 | ER Document Report ---
ED General - General Chief Complaint: Nausea/Vomiting Stated Complaint: BREATHING CONCERNS Time seen by provider: 10:39 Mode of Arrival: Wheelchair Information source: Patient Notes: 36-year-old male with shortness of breath epigastric pain nausea vomiting this morning. Patient has a history of type I diabetes with multiple admissions for DKA related to medication noncompliance but he says he was compliant with his insulin yesterday. He reports taking him on 7036 units every 24 hours and did take that yesterday. On his last EKG admission is also found of pancreatitis with lipase of 1700 Physical Exam: General: Alert, appears uncomfortable, nontoxic HEENT: Normocephalic. Atraumatic. PERRLA. Extraocular movements intact. Oropharynx dry mucous membranes Neck: Supple. Non-tender. No JVD Respiratory: No respiratory distress. Clear and equal breath sounds bilaterally. Cardiovascular: Regular rate and rhythm. Abdominal: Normal Inspection. Soft, mild epigastric tenderness no guarding rebound rigidity no distension. Normal Bowel Sounds. Back: Non-tender. No deformity or step off. Extremities: Moves all four extremities. Upper extremities: Normal inspection. Non-tender. Normal color. Normal ROM. Normal temperature. Lower extremities: Normal inspection. Non-tender. No edema. Normal color. Normal ROM. Normal temperature. Neurological: Speech clear mentation normal moves all extremities well. Psychological: Normal affect. Normal Mood. Skin: Warm. Dry. Normal color. TRAVEL OUTSIDE OF THE [place] IN LAST 30 DAYS: No - Related Data Allergies/Adverse Reactions: No Known Allergies Allergy (Verified 03/18/16 12:12) Past Medical History - General Information source: Patient - Social History Smoking Status: Current Every Day Smoker Frequency of alcohol use: None Family History: DM, Hyperlipidemia, Hypertension - Past Medical History Cardiac Medical History: Reports: Hx Hypercholesterolemia, Hx Hypertension Pulmonary Medical History: Denies: Hx Tuberculosis Endocrine Medical History: Reports: Hx Diabetes Mellitus Type 1 - 4 years. Denies: Hx Diabetes Mellitus Type 2, Hx Graves' Disease, Hx Hyperthyroidism, Hx Hypothyroidism Renal/ Medical History: Denies: Hx Peritoneal Dialysis Psychiatric Medical History: Reports: Hx Depression Past Surgical History: Reports: Hx Orthopedic Surgery - back. Denies: Hx Appendectomy, Hx Bowel Surgery, Hx Cholecystectomy, Hx Coronary Artery Bypass Graft, Hx Gastric Bypass Surgery, Hx Herniorrhaphy, Hx Pacemaker, Hx Tonsillectomy - Immunizations Hx Diphtheria, Pertussis, Tetanus Vaccination: Yes Hx Pneumococcal Vaccination: 11/09/11 Review of Systems - Review of Systems Constitutional: Fever - Subjective, Malaise, Weakness. denies: Chills EENT: denies: Ear pain, Throat pain Cardiovascular: Dyspnea. denies: Chest pain Respiratory: denies: Cough Gastrointestinal: See HPI Genitourinary: denies: Burning, Dysuria Musculoskeletal: denies: Muscle pain Skin: denies: Rash Hematologic/Lymphatic: denies: Swollen glands Neurological/Psychological: denies: Weakness, Numbness Physical Exam - Vital signs Vitals: Resp Pulse Ox 19 100 04/13/16 10:42 04/13/16 10:42 Course - Re-evaluation Re-evalutation: 04/13/16 12:36 Patient's presentation is consistent with recurrent DKA. There is no evidence for pneumonia. Triggering etiology is likely noncompliance area and discussed patient with Dr. flores of hospitalist service and he will be admitting the patient - Vital Signs Vital signs: Temp Pulse Resp BP Pulse Ox 21 H 126/88 H 100 04/13/16 11:01 04/13/16 11:00 04/13/16 11:01 - Laboratory Result Diagrams: 04/13/16 11:05 04/13/16 11:05 Laboratory results interpreted by me: 04/13/16 04/13/16 04/13/16 11:05 11:05 11:05 WBC 13.8 H MCHC 31.4 L RDW 16.5 H Seg Neutrophils % 83.8 H Lymphocytes % 8.4 L Absolute Neutrophils 11.5 H Carbonic Acid ABG pH ABG pCO2 ABG pO2 ABG HCO3 ABG Total CO2 ABG O2 Saturation Sodium 129.6 L Potassium 5.3 H Chloride 93 L Carbon Dioxide < 5 L* Glucose 701 H* Lactic Acid 2.9 H ALT 73 H Alkaline Phosphatase 212 H Lipase 408.9 H 04/13/16 11:15 WBC MCHC RDW Seg Neutrophils % Lymphocytes % Absolute Neutrophils Carbonic Acid 0.38 L ABG pH 7.22 L ABG pCO2 12.7 L* ABG pO2 139.0 H ABG HCO3 5.1 L ABG Total CO2 5.5 L ABG O2 Saturation 98.4 H Sodium Potassium Chloride Carbon Dioxide Glucose Lactic Acid ALT Alkaline Phosphatase Lipase - Diagnostic Test Radiology reviewed: Image reviewed, Reports reviewed - EKG Interpretation by Me Additional EKG results interpreted by me: 04/13/16 12:36 EKG reviewed by myself sinus tachycardia 120 no acute changes Discharge - Discharge Clinical Impression: Type 1 diabetes mellitus with ketoacidosis Qualifiers: Diabetes mellitus complication detail: without coma Qualified Code(s): E10.10 - Type 1 diabetes mellitus with ketoacidosis without coma Condition: Serious Disposition: ADMITTED INPATIENT Unit Admitted: [facility]
[2016-04-13 11:33] LABS: ABSOLUTE BASOPHILS # (AUTO) 0.1 10^3/uL (0.0-0.2); ABSOLUTE LYMPHOCYTES (AUTO) 1.2 10^3/uL (0.5-4.7); ABSOLUTE NEUT (AUTO) 11.5 10^3/uL (1.7-8.2); BASOPHILS % (AUTO) 0.5 % (0-2); HEMATOCRIT 44.4 % (37.9-51.0); HEMOGLOBIN 13.9 g/dL (13.5-17.0); HGB HCT DIFFERENCE -2.7; LYMPHOCYTES % (AUTO) 8.4 % (13-45); MEAN CORPUSCULAR HEMOGLOBIN 29.8 pg (27.0-33.4); MEAN CORPUSCULAR HGB CONC 31.4 g/dL (32.0-36.0); MONOCYTES % (AUTO) 7.3 % (3-13); RED BLOOD COUNT 4.68 10^6/uL (4.35-5.55); RED CELL DISTRIBUTION WIDTH 16.5 % (11.5-14.0); SEGMENTED NEUTROPHILS % (AUTO) 83.8 % (42-78); WHITE BLOOD COUNT 13.8 10^3/uL (4.0-10.5)
[2016-04-13 11:44] LABS: ARTERIAL BLOOD BASE EXCESS -19.7 mmol/L; ARTERIAL BLOOD O2 SATURATION 98.4 % (94-98)
[2016-04-13 11:53] LABS: ALANINE AMINOTRANSFERASE 73 U/L (21-72); ALBUMIN 3.8 g/dL (3.5-5.0); ALKALINE PHOSPHATASE 212 U/L (38-126); ASPARTATE AMINO TRANSFERASE 52 U/L (17-59); BILIRUBIN,TOTAL 0.7 mg/dL (0.2-1.3); BLOOD UREA NITROGEN 20 mg/dL (7-20); CALCIUM 9.2 mg/dL (8.4-10.2); CHLORIDE 93 mmol/L (98-107); CREATININE RESULT 1.04 mg/dL (0.52-1.25); LIPASE 408.9 U/L (23-300); POTASSIUM 5.3 mmol/L (3.6-5.0); SODIUM 129.6 mmol/L (137-145); TOTAL PROTEIN 6.5 g/dL (6.3-8.2)
[2016-04-13 11:54] LABS: MEAN CORPUSCULAR VOLUME 95 fl (80-97)
[2016-04-13] MEDS ORDERED: NORMAL SALINE 100 ML with INSULIN REGULAR, HUMAN 100 UNIT IV PRN ×4 (12:01→13:21)
[2016-04-13] MEDS ORDERED: INSULIN REG, HUMAN 100 UNIT/ML 3 ML VIAL (PYX) IV ONE (12:09)
[2016-04-13 12:11] LABS: GLUCOSE 701 mg/dL (75-110)
[2016-04-13 12:12] LABS: CARBON DIOXIDE < 5 mmol/L (22-30)
[2016-04-13] MEDS ORDERED: ACETAMINOPHEN 325 MG TABLET PO PRN (13:16)
[2016-04-13] MEDS ORDERED: GLUCAGON,HUMAN RECOMB 1 MG INJ IM PRN (13:20)
[2016-04-13] MEDS ORDERED: DEXTROSE 50%-WATER 25 GM/50 ML DISP.SYRIN IV PRN ×2 (13:20)
[2016-04-13] MEDS ORDERED: DEXTROSE 40% GEL 15 GM TUBE PO PRN ×2 (13:20)
--- NOTE | 2016-04-13 13:37 | PDOC H&P ---
History of Present Illness Admission Date/PCP: 04/13/16 13:11 Patient complains of: Nausea vomiting and abdominal pain History of Present Illness: CHESTER MCKEON is a 36 year old male with a history of diabetes type I who also was hospitalized last month after pancreatitis and DKA who presents back with DKA. Patient reports that he has had nausea and abdominal pain for the last several days has had difficulty tolerating by mouth. He reports he has however been compliant with his insulin. He is noted have hyperglycemia along with acidosis consistent with DKA. The patient was interviewed have a positive review of systems. He reports his he is had fever as well as chest pain and shortness of breath and abdominal pain and diarrhea and constipation and it's felt that his review systems is not reliable. The patient does have a history of substance abuse and a urine drug screen is pending at this time. He is tender to palpate his left upper quadrant consistent with pancreatitis which she had previously. He denies any alcohol use however. Past Medical History Cardiac Medical History: Reports: Hyperlipidema, Hypertension Pulmonary Medical History: Denies: Tuberculosis EENT Medical History: Reports: None Neurological Medical History: Reports: None Endocrine Medical History: Reports: Diabetes Mellitus Type 1 - 4 years Denies: Diabetes Mellitus Type 2, Hyperthyroidism, Hypothyroidism Renal/ Medical History: Reports: None Malignancy Medical History: Reports: None GI Medical History: Reports: Other - History pancreatitis uncertain etiology. Musculoskeltal Medical History: Reports: None Skin Medical History: Reports: None Psychiatric Medical History: Reports: Depression Hematology: Reports: None Past Surgical History Past Surgical History: Reports: Orthopedic Surgery - back Denies: Appendectomy, Cholecystectomy, Coronary Artery Bypass Graft, Gastric Bypass Surgery, Herniorrhaphy, Pacemaker, Tonsillectomy Social History Information Source: Patient Lives with: Family Smoking Status: Current Every Day Smoker Frequency of Alcohol Use: None Hx Recreational Drug Use: Yes Drugs: Marijuana Hx Prescription Drug Abuse: No - Advance Directive Resuscitation Status: Full Code Family History Family History: DM, Hyperlipidemia, Hypertension Parental Family History Reviewed: Yes Children Family History Reviewed: No Sibling(s) Family History Reviewed.: No Medication/Allergy Allergies/Adverse Reactions: No Known Allergies Allergy (Verified 03/18/16 12:12) Review of Systems Constitutional: PRESENT: anorexia, chills, fatigue, fever(s), weakness, weight loss. ABSENT: weight gain Eyes: ABSENT: visual disturbances Ears: ABSENT: hearing changes Cardiovascular: PRESENT: palpitations. ABSENT: chest pain, dyspnea on exertion , orthropnea Respiratory: PRESENT: cough, dyspnea. ABSENT: hemoptysis, sputum Gastrointestinal: PRESENT: abdominal pain - Left upper quadrant, bloating, diarrhea, heartburn, nausea, vomiting. ABSENT: dysphagia, hematemesis, hematochezia, melena Genitourinary: PRESENT: dysuria, nocturia. ABSENT: difficulty urinating, hematuria Musculoskeletal: PRESENT: back pain Integumentary: ABSENT: rash, wounds Neurological: ABSENT: abnormal gait, abnormal speech, confusion, dizziness, focal weakness, syncope Psychiatric: PRESENT: depression Endocrine: PRESENT: cold intolerance, polydipsia, polyuria. ABSENT: heat intolerance, polyphagia Hematologic/Lymphatic: ABSENT: easy bleeding, easy bruising Physical Exam Vital Signs: Temp Pulse Resp BP Pulse Ox 19 99/71 L 100 04/13/16 13:01 04/13/16 13:01 04/13/16 13:01 Intake & Output 04/12/16 04/13/16 04/14/16 06:59 06:59 06:59 Weight 67.2 kg General appearance: PRESENT: mild distress Head exam: PRESENT: atraumatic, normocephalic Eye exam: PRESENT: conjunctiva pink, EOMI, PERRLA. ABSENT: scleral icterus Ear exam: PRESENT: normal external ear exam Mouth exam: PRESENT: dry mucosa Neck exam: ABSENT: carotid bruit, JVD, lymphadenopathy, thyromegaly Respiratory exam: PRESENT: clear to auscultation alfonso. ABSENT: rales, rhonchi, wheezes Cardiovascular exam: PRESENT: tachycardia. ABSENT: diastolic murmur, rubs, systolic murmur Pulses: PRESENT: normal dorsalis pedis pul Vascular exam: PRESENT: normal capillary refill GI/Abdominal exam: PRESENT: normal bowel sounds, soft, tenderness - Mild left upper quadrant tenderness but no guarding or rebound. ABSENT: distended, guarding, mass, organolmegaly, rebound Rectal exam: PRESENT: deferred Extremities exam: ABSENT: calf tenderness, clubbing, pedal edema Neurological exam: PRESENT: alert, awake, oriented to person, oriented to place , oriented to time, oriented to situation, CN II-XII grossly intact. ABSENT: motor sensory deficit Psychiatric exam: PRESENT: anxious Skin exam: PRESENT: dry, intact, warm. ABSENT: cyanosis, rash Results Impressions: Chest X-Ray 04/13/16 10:37 IMPRESSION: NO ACUTE RADIOGRAPHIC FINDING IN THE CHEST. Assessment & Plan - Diagnosis (1) DKA, type 1 Qualifiers: Diabetes mellitus complication detail: without coma Qualified Code(s): E10.10 - Type 1 diabetes mellitus with ketoacidosis without coma Is this a current diagnosis for this admission?: YesPlan: The patient reports he has been compliant with medications Percocet difficulty tolerating by mouth for last several days because of nausea vomiting and abdominal pain. We will give IV fluids and started on insulin drip. Patient has positive review systems and does report having fever although he does not have one currently. Blood cultures have been obtained and will hold off starting any antibiotics unless he has an elevated temperature while here. He does appear to have pancreatitis and will make nothing by mouth for now. Will check every hour fingerstick blood sugars and every 4 hour chemistries (2) Acute pancreatitis without infection or necrosis Qualifiers: Pancreatitis type: unspecified pancreatitis type Qualified Code(s): K85.90 - Acute pancreatitis without necrosis or infection, unspecified Is this a current diagnosis for this admission?: YesPlan: Denies any alcohol use but does have a history of cocaine use in the past. He denies any that and the urine drug screen has been ordered. Will make nothing by mouth and give pain medicine as needed. (3) Cocaine abuse Is this a current diagnosis for this admission?: YesPlan: Patient denies this but does have a history of using so we'll check a urine drug screen. (4) Dehydration Is this a current diagnosis for this admission?: YesPlan: Secondary to DKA. We'll give IV fluids aggressively. (5) Tobacco abuse Is this a current diagnosis for this admission?: YesPlan: He is encouraged to quit - Time Time Spent: 50 to 70 Minutes - Inpatient Certification Medical Necessity: Need For IV Fluids
[2016-04-13 13:51] LABS: APPEARANCE,URINE CLEAR; BILIRUBIN,URINE NEGATIVE (NEGATIVE); GLUCOSE, URINE >=500 mg/dL (NEGATIVE); KETONES,URINE 80 mg/dL (NEGATIVE); LEUKOCYTE ESTERASE,URINE NEGATIVE (NEGATIVE); NITRITE,URINE NEGATIVE (NEGATIVE); PROTEIN,URINE NEGATIVE (NEGATIVE); URINE SPECIFIC GRAVITY 1.026; UROBILINOGEN,URINE NEGATIVE mg/dL (<2.0)
[2016-04-13 14:29] LABS: BLOOD UREA NITROGEN 19 mg/dL (7-20); CALCIUM 8.6 mg/dL (8.4-10.2); CHLORIDE 102 mmol/L (98-107); CREATININE RESULT 0.98 mg/dL (0.52-1.25)
[2016-04-13 14:41] LABS: ANION GAP 28 (5-19); POTASSIUM 4.3 mmol/L (3.6-5.0)
[2016-04-13 14:55] LABS: CARBON DIOXIDE 6 mmol/L (22-30); GLUCOSE 552 mg/dL (75-110)
[2016-04-13] MEDS: ONDANSETRON HCL INJ/PF 4 MG/2 ML SDV IV PRN (14:59)
[2016-04-13] MEDS: OXYCODONE-ACETAMINOPHEN 5-325 MG TABLET PO PRN ×2 (14:59→21:08)
[2016-04-13 15:18] LABS: URINE BARBITURATES SCREEN NEGATIVE; URINE METHADONE SCREEN NEGATIVE; URINE OPIATES LOW NEGATIVE; URINE PHENCYCLIDINE SCREEN NEGATIVE
[2016-04-13] MEDS: NORMAL SALINE 1000 ML 1,000 ML IV PRN ×2 (17:38→21:44)
[2016-04-13 18:25] LABS: BLOOD UREA NITROGEN 17 mg/dL (7-20); CALCIUM 8.6 mg/dL (8.4-10.2); CHLORIDE 109 mmol/L (98-107); CREATININE RESULT 0.81 mg/dL (0.52-1.25); GLUCOSE 213 mg/dL (75-110); POTASSIUM 4.7 mmol/L (3.6-5.0); SODIUM 139.6 mmol/L (137-145)
[2016-04-13 18:42] LABS: ANION GAP 23 (5-19)
[2016-04-13 18:43] LABS: CARBON DIOXIDE 8 mmol/L (22-30)
--- NOTE | 2016-04-13 20:49 | EKG REPORT ---
SEVERITY:- OTHERWISE NORMAL ECG - SINUS TACHYCARDIA BORDERLINE RIGHT AXIS DEVIATION : Confirmed by: Ruchi King 13-Apr-2016 20:48:40
[2016-04-13] MEDS: FAMOTIDINE INJ/PF 20 MG/2 ML SDV IV SCH (21:08)
[2016-04-13 22:14] LABS: ANION GAP 12 (5-19); BLOOD UREA NITROGEN 18 mg/dL (7-20); CALCIUM 8.2 mg/dL (8.4-10.2); CARBON DIOXIDE 14 mmol/L (22-30); CHLORIDE 112 mmol/L (98-107); CREATININE RESULT 0.68 mg/dL (0.52-1.25); GLUCOSE 140 mg/dL (75-110); POTASSIUM 4.2 mmol/L (3.6-5.0); SODIUM 137.7 mmol/L (137-145)
[2016-04-14] MEDS: POTASSI CL 20 MEQ/D5-1/2NS 1L 1,000 ML IV PRN ×5 (00:02→19:56)
[2016-04-14 01:47] LABS: ANION GAP 11 (5-19); BLOOD UREA NITROGEN 18 mg/dL (7-20); CALCIUM 7.8 mg/dL (8.4-10.2); CARBON DIOXIDE 13 mmol/L (22-30); CHLORIDE 114 mmol/L (98-107); CREATININE RESULT 0.61 mg/dL (0.52-1.25); GLUCOSE 211 mg/dL (75-110)
[2016-04-14] MEDS: OXYCODONE-ACETAMINOPHEN 5-325 MG TABLET PO PRN ×2 (03:44→08:19)
[2016-04-14] MEDS: ONDANSETRON HCL INJ/PF 4 MG/2 ML SDV IV PRN ×3 (03:44→19:56)
[2016-04-14] MEDS ORDERED: METOCLOPRAMIDE HCL INJ/PF 10 MG/2 ML SDV ONE (03:58)
[2016-04-14] MEDS ORDERED: KETOROLAC TROMETHAMINE INJ/PF 30 MG/1 ML SDV IV ONE (04:15)
[2016-04-14] MEDS ORDERED: METOCLOPRAMIDE HCL INJ/PF 10 MG/2 ML SDV IV ONE (04:15)
[2016-04-14 06:59] LABS: HEMATOCRIT 37.6 % (37.9-51.0); HEMOGLOBIN 12.3 g/dL (13.5-17.0); HGB HCT DIFFERENCE -0.7; MEAN CORPUSCULAR HEMOGLOBIN 29.8 pg (27.0-33.4); MEAN CORPUSCULAR HGB CONC 32.7 g/dL (32.0-36.0); RED BLOOD COUNT 4.14 10^6/uL (4.35-5.55); WHITE BLOOD COUNT 14.9 10^3/uL (4.0-10.5)
[2016-04-14 07:03] LABS: MEAN CORPUSCULAR VOLUME 91 fl (80-97)
[2016-04-14 07:10] LABS: ANION GAP 11 (5-19); BLOOD UREA NITROGEN 16 mg/dL (7-20); CALCIUM 8.1 mg/dL (8.4-10.2); CARBON DIOXIDE 15 mmol/L (22-30); CHLORIDE 111 mmol/L (98-107); CREATININE RESULT 0.64 mg/dL (0.52-1.25); GLUCOSE 173 mg/dL (75-110); SODIUM 136.8 mmol/L (137-145)
[2016-04-14 07:11] LABS: POTASSIUM 4.2 mmol/L (3.6-5.0)
[2016-04-14] MEDS: ONDANSETRON 4 MG TAB.RAPDIS PO PRN ×3 (08:00→23:53)
--- NOTE | 2016-04-14 10:14 | PDOC PROGRESS REPORT ---
Subjective Progress Note for:: 04/14/16 Subjective:: Still with abdominal pain mainly on the upper quadrants bilaterally. There is nausea with occasional vomiting. No bowel movements but denies having any diarrhea as well. No dysuria urgency or frequency. No chills or fever. Anion gap is now normal. Blood sugar down in the 90s. Physical Exam Vital Signs: Temp Pulse Resp BP Pulse Ox 98.9 F 101 H 21 H 128/88 H 100 04/14/16 08:35 04/14/16 08:35 04/14/16 08:35 04/14/16 08:35 04/14/16 08:35 Intake & Output 04/13/16 04/14/16 04/15/16 06:59 06:59 06:59 Intake Total 3413 Output Total 900 Balance 2513 Weight 63.6 kg General appearance: PRESENT: mild distress - due to pain, thin Head exam: PRESENT: normocephalic Eye exam: PRESENT: EOMI Mouth exam: PRESENT: moist, neck supple Neck exam: ABSENT: JVD Respiratory exam: PRESENT: clear to auscultation alfonso. ABSENT: rales, wheezes Cardiovascular exam: PRESENT: RRR. ABSENT: gallop GI/Abdominal exam: PRESENT: hypoactive bowel sounds, soft, tenderness - Both left and right upper quadrants. ABSENT: distended Extremities exam: ABSENT: pedal edema Neurological exam: PRESENT: alert, awake, oriented to situation Skin exam: PRESENT: dry, warm. ABSENT: cyanosis Results Laboratory Results: 04/14/16 06:10 04/13/16 04/13/16 04/13/16 13:20 13:40 15:50 WBC RBC Hgb Hct MCV MCH MCHC RDW Plt Count Sodium 136.0 L Potassium 4.3 D Chloride 102 Carbon Dioxide 6 L* Anion Gap 28 H BUN 19 Creatinine 0.98 Est GFR ( Amer) > 60 Est GFR (Non-Af Amer) > 60 Glucose 552 H* Lactic Acid 6.0 H Calcium 8.6 Urine Color STRAW Urine Appearance CLEAR Urine pH 5.0 Ur Specific [place] 1.026 Urine Protein NEGATIVE Urine Glucose (UA) >=500 H Urine Ketones 80 H Urine Blood SMALL H Urine Nitrite NEGATIVE Ur Leukocyte Esterase NEGATIVE 04/13/16 04/13/16 04/14/16 17:38 21:25 01:28 WBC RBC Hgb Hct MCV MCH MCHC RDW Plt Count Sodium 139.6 137.7 138.0 Potassium 4.7 4.2 4.0 Chloride 109 H 112 H 114 H Carbon Dioxide 8 L* 14 L 13 L Anion Gap 23 H 12 11 BUN 17 18 18 Creatinine 0.81 0.68 0.61 Est GFR ( Amer) > 60 > 60 > 60 Est GFR (Non-Af Amer) > 60 > 60 > 60 Glucose 213 H 140 H 211 H Lactic Acid Calcium 8.6 8.2 L 7.8 L Urine Color Urine Appearance Urine pH Ur Specific [place] Urine Protein Urine Glucose (UA) Urine Ketones Urine Blood Urine Nitrite Ur Leukocyte Esterase 04/14/16 04/14/16 06:10 06:10 WBC 14.9 H RBC 4.14 L Hgb 12.3 L Hct 37.6 L MCV 91 D MCH 29.8 MCHC 32.7 RDW 16.0 H Plt Count 191 Sodium 136.8 L Potassium 4.2 Chloride 111 H Carbon Dioxide 15 L Anion Gap 11 BUN 16 Creatinine 0.64 Est GFR ( Amer) > 60 Est GFR (Non-Af Amer) > 60 Glucose 173 H Lactic Acid Calcium 8.1 L Urine Color Urine Appearance Urine pH Ur Specific [place] Urine Protein Urine Glucose (UA) Urine Ketones Urine Blood Urine Nitrite Ur Leukocyte Esterase Impressions: Chest X-Ray 04/13/16 10:37 IMPRESSION: NO ACUTE RADIOGRAPHIC FINDING IN THE CHEST. Assessment & Plan - Diagnosis (1) Diabetic ketoacidosis Qualifiers: Diabetes mellitus type: type 1 Diabetes mellitus complication detail: without coma Qualified Code(s): E10.10 - Type 1 diabetes mellitus with ketoacidosis without coma Is this a current diagnosis for this admission?: Yes (2) Acute pancreatitis without infection or necrosis Qualifiers: Pancreatitis type: unspecified pancreatitis type Qualified Code(s): K85.90 - Acute pancreatitis without necrosis or infection, unspecified Is this a current diagnosis for this admission?: Yes (3) Dehydration Is this a current diagnosis for this admission?: Yes (4) Cocaine abuse Is this a current diagnosis for this admission?: Yes (5) Leukocytosis Qualifiers: Leukocytosis type: unspecified Qualified Code(s): D72.829 - Elevated white blood cell count, unspecified Is this a current diagnosis for this admission?: Yes (6) Pancreatitis Qualifiers: Chronicity: acute Pancreatitis type: unspecified pancreatitis type Acute pancreatitis complication: no infection or necrosis Qualified Code( s): K85.90 - Acute pancreatitis without necrosis or infection, unspecified Is this a current diagnosis for this admission?: Yes (7) Hyperkalemia Is this a current diagnosis for this admission?: Yes - Time Time Spent with patient: 25-34 minutes - Plan Summary Plan Summary: We will continue insulin drip for now until patient is able to tolerate oral intake. We will begin clear liquid diet. Continue dextrose containing intravenous fluids for now. Continue antiemetics. Try morphine for pain. We will recheck CT of the abdomen and pelvis this time with contrast.
[2016-04-14 10:15] LABS: ANION GAP 9 (5-19); BLOOD UREA NITROGEN 16 mg/dL (7-20); CALCIUM 8.4 mg/dL (8.4-10.2); CARBON DIOXIDE 16 mmol/L (22-30); CHLORIDE 112 mmol/L (98-107); CREATININE RESULT 0.61 mg/dL (0.52-1.25); GLUCOSE 115 mg/dL (75-110); POTASSIUM 3.9 mmol/L (3.6-5.0)
[2016-04-14] MEDS: MORPHINE SULFATE 10 MG/ML INJ IV PRN ×4 (10:18→23:46)
[2016-04-14] MEDS: FAMOTIDINE INJ/PF 20 MG/2 ML SDV IV SCH ×2 (10:19→21:13)
[2016-04-14] MEDS: ENOXAPARIN SODIUM INJ 40 MG/0.4 ML DISP.SYRIN SUBCUT SCH (10:25)
[2016-04-14 14:13] LABS: ANION GAP 13 (5-19); BLOOD UREA NITROGEN 13 mg/dL (7-20); CALCIUM 7.7 mg/dL (8.4-10.2); CARBON DIOXIDE 12 mmol/L (22-30); CHLORIDE 110 mmol/L (98-107); CREATININE RESULT 0.56 mg/dL (0.52-1.25); GLUCOSE 140 mg/dL (75-110); SODIUM 134.7 mmol/L (137-145)
[2016-04-14 17:56] LABS: ANION GAP 9 (5-19); BLOOD UREA NITROGEN 12 mg/dL (7-20); CALCIUM 8.1 mg/dL (8.4-10.2); CARBON DIOXIDE 18 mmol/L (22-30); CHLORIDE 108 mmol/L (98-107); CREATININE RESULT 0.56 mg/dL (0.52-1.25); GLUCOSE 113 mg/dL (75-110); SODIUM 134.8 mmol/L (137-145)
[2016-04-14 22:18] LABS: ANION GAP 7 (5-19); BLOOD UREA NITROGEN 11 mg/dL (7-20); CARBON DIOXIDE 17 mmol/L (22-30); CHLORIDE 107 mmol/L (98-107); CREATININE RESULT 0.51 mg/dL (0.52-1.25); GLUCOSE 374 mg/dL (75-110); POTASSIUM 4.5 mmol/L (3.6-5.0); SODIUM 131.1 mmol/L (137-145)
[2016-04-14] MEDS: INSULIN REG, HUMAN 100 UNIT/ML 3 ML VIAL (PYX) SUBCUT PRN (22:39)
[2016-04-14] MEDS ORDERED: NORMAL SALINE 1000 ML 1,000 ML IV PRN (23:22)
[2016-04-14] MEDS ORDERED: RINGERS SOLUTION,LACTATED 1,000 ML IV ONE (23:22)
[2016-04-15] MEDS: MORPHINE SULFATE 10 MG/ML INJ IV PRN ×6 (03:51→23:58)
[2016-04-15] MEDS: ONDANSETRON HCL INJ/PF 4 MG/2 ML SDV IV PRN ×6 (03:51→23:58)
[2016-04-15 04:06] LABS: ANION GAP 9 (5-19); BLOOD UREA NITROGEN 10 mg/dL (7-20); CALCIUM 7.8 mg/dL (8.4-10.2); CARBON DIOXIDE 17 mmol/L (22-30); CHLORIDE 108 mmol/L (98-107); CREATININE RESULT 0.52 mg/dL (0.52-1.25); GLUCOSE 115 mg/dL (75-110); POTASSIUM 3.6 mmol/L (3.6-5.0); SODIUM 133.8 mmol/L (137-145)
[2016-04-15] MEDS ORDERED: POTASSI CL 20 MEQ/50 ML RIDER 20 MEQ/50 ML RTUPB IV ONE (04:37)
[2016-04-15] MEDS: POTASSI CL 20 MEQ/NS 1L 1,000 ML IV PRN ×4 (04:51→21:20)
[2016-04-15 07:08] LABS: AMYLASE 35 U/L (30-110); ANION GAP 6 (5-19); BLOOD UREA NITROGEN 9 mg/dL (7-20); CALCIUM 8.2 mg/dL (8.4-10.2); CARBON DIOXIDE 22 mmol/L (22-30); CHLORIDE 108 mmol/L (98-107); GLUCOSE 133 mg/dL (75-110); POTASSIUM 4.1 mmol/L (3.6-5.0); SODIUM 135.5 mmol/L (137-145)
[2016-04-15] MEDS: ENOXAPARIN SODIUM INJ 40 MG/0.4 ML DISP.SYRIN SUBCUT SCH (07:56)
--- NOTE | 2016-04-15 09:06 | PDOC PROGRESS REPORT ---
Subjective Progress Note for:: 04/15/16 Subjective:: Patient's abdominal pain improved, still with nausea, tolerating liquid diet, no diarrhea. The patient had distended urinary bladder on CT scan, after that the patient voided freely on several occasions as reported. No chills or fever. No cough or chest/sinus congestion, no sore throat. Physical Exam Vital Signs: Temp Pulse Resp BP Pulse Ox 97.3 F 88 16 127/95 H 99 04/15/16 08:00 04/15/16 08:00 04/15/16 08:00 04/15/16 08:00 04/15/16 08:00 Intake & Output 04/14/16 04/15/16 04/16/16 06:59 06:59 06:59 Intake Total 3413 5404 Output Total 900 1650 0 Balance 2513 3754 0 Weight 63.6 kg 66.5 kg General appearance: PRESENT: no acute distress, cooperative Head exam: PRESENT: normocephalic Eye exam: PRESENT: EOMI Mouth exam: PRESENT: moist, neck supple Neck exam: ABSENT: JVD Respiratory exam: PRESENT: clear to auscultation alfonso Cardiovascular exam: PRESENT: RRR. ABSENT: gallop GI/Abdominal exam: PRESENT: soft, tenderness - On the hypogastric area. ABSENT : distended, mass Extremities exam: ABSENT: pedal edema Neurological exam: PRESENT: alert, awake, oriented to situation Skin exam: PRESENT: dry, warm. ABSENT: cyanosis Results Laboratory Results: 04/14/16 06:10 04/15/16 06:30 04/14/16 04/14/16 04/14/16 06:10 09:40 13:52 Sodium 137.0 134.7 L Potassium 3.9 4.0 Chloride 112 H 110 H Carbon Dioxide 16 L 12 L Anion Gap 9 13 BUN 16 13 Creatinine 0.61 0.56 Est GFR ( Amer) > 60 > 60 Est GFR (Non-Af Amer) > 60 > 60 Glucose 115 H 140 H Calcium 8.4 7.7 L Amylase 44 Lipase 441.0 H 04/14/16 04/14/16 04/15/16 17:25 21:55 03:28 Sodium 134.8 L 131.1 L 133.8 L Potassium 4.0 4.5 3.6 Chloride 108 H 107 108 H Carbon Dioxide 18 L 17 L 17 L Anion Gap 9 7 9 BUN 12 11 10 Creatinine 0.56 0.51 L 0.52 Est GFR ( Amer) > 60 > 60 > 60 Est GFR (Non-Af Amer) > 60 > 60 > 60 Glucose 113 H 374 H 115 H Calcium 8.1 L 8.0 L 7.8 L Amylase Lipase 04/15/16 06:30 Sodium 135.5 L Potassium 4.1 Chloride 108 H Carbon Dioxide 22 Anion Gap 6 BUN 9 Creatinine 0.50 L Est GFR ( Amer) > 60 Est GFR (Non-Af Amer) > 60 Glucose 133 H Calcium 8.2 L Amylase 35 Lipase 248.0 Impressions: Chest X-Ray 04/13/16 10:37 IMPRESSION: NO ACUTE RADIOGRAPHIC FINDING IN THE CHEST. Abdomen/Pelvis CT 04/14/16 00:00 IMPRESSION: Circumferential distal esophageal wall thickening worrisome for distal esophagitis or distal esophageal tumor Massively distended urinary bladder Lumbar central canal stenosis at L5-S1 from near complete anterolisthesis of L5 over S1. Assessment & Plan - Diagnosis (1) Diabetic ketoacidosis Qualifiers: Diabetes mellitus type: type 1 Diabetes mellitus complication detail: without coma Qualified Code(s): E10.10 - Type 1 diabetes mellitus with ketoacidosis without coma Is this a current diagnosis for this admission?: Yes (2) Acute pancreatitis without infection or necrosis Qualifiers: Pancreatitis type: unspecified pancreatitis type Qualified Code(s): K85.90 - Acute pancreatitis without necrosis or infection, unspecified Is this a current diagnosis for this admission?: Yes (3) Dehydration Is this a current diagnosis for this admission?: Yes (4) Cocaine abuse Is this a current diagnosis for this admission?: Yes (5) Leukocytosis Qualifiers: Leukocytosis type: unspecified Qualified Code(s): D72.829 - Elevated white blood cell count, unspecified Is this a current diagnosis for this admission?: Yes (6) Pancreatitis Qualifiers: Chronicity: acute Pancreatitis type: unspecified pancreatitis type Acute pancreatitis complication: no infection or necrosis Qualified Code( s): K85.90 - Acute pancreatitis without necrosis or infection, unspecified Is this a current diagnosis for this admission?: Yes (7) Hyperkalemia Is this a current diagnosis for this admission?: Yes - Time Time Spent with patient: 25-34 minutes - Plan Summary Plan Summary: We will consult gastroenterology. Continue intravenous Pepcid. Patient refusing Bar catheter to check residuals, we are going to obtain a renal ultrasound. In the meantime change sliding scale to before meals and at bedtime. Advance diet to full liquids. Transferred to a telemetry floor. Once patient able to eat fully, we will resume home insulin.
--- NOTE | 2016-04-15 10:11 | PDOC CONSULTATION ---
Consultation Consult Date: 04/15/16 Attending physician:: MANGO NORRIS Consult reason:: abnormal imaging in the esophagus , done via CT History of Present Illness Admission Date/PCP: 04/13/16 13:16 History of Present Illness: I am asked to see this patient by Dr Estrada patient was admitted for DKA was noted to have some calcifications of his pancreas to suggest pancreatitis his lipase has resolved he has been having abdominal pain with nausea and vomiting likely due to diabetic gastroparesis patient had CT scan done, was noted to have " circumferential thickening at distal esophagus" radiologist noted differential of possible tumor consulted by medical service to clarify finding patient has long history of DM likely does have a component of gastroparesis will need EGD done denies any dysphagia or odynophagia on a regular basis does have GERD positive for early satiety patient denies any hemetemesis Past Medical History Cardiac Medical History: Reports: Hyperlipidema, Hypertension Pulmonary Medical History: Denies: Tuberculosis EENT Medical History: Reports: None Neurological Medical History: Reports: None Endocrine Medical History: Reports: Diabetes Mellitus Type 1 - 4 years Denies: Diabetes Mellitus Type 2, Hyperthyroidism, Hypothyroidism Renal/ Medical History: Reports: None Malignancy Medical History: Reports: None GI Medical History: Reports: Other - History pancreatitis uncertain etiology. Musculoskeltal Medical History: Reports: None Skin Medical History: Reports: None Psychiatric Medical History: Reports: Depression Hematology: Reports: None Past Surgical History Past Surgical History: Reports: Orthopedic Surgery - back Denies: Appendectomy, Cholecystectomy, Coronary Artery Bypass Graft, Gastric Bypass Surgery, Herniorrhaphy, Pacemaker, Tonsillectomy Social History Lives with: Family Smoking Status: Former Smoker Number of Years Smokin Frequency of Alcohol Use: None Hx Recreational Drug Use: Yes Drugs: Marijuana Hx Prescription Drug Abuse: No - Advance Directive Resuscitation Status: Full Code Family History Family History: DM, Hyperlipidemia, Hypertension Parental Family History Reviewed: Yes Children Family History Reviewed: Unknown Sibling(s) Family History Reviewed.: Unknown Medication/Allergy Home Medications: Insulin Glargine,Hum.rec.anlog [Lantus Insulin 100 Unit/mL] 35 unit SUBCUT QHS 04/13/16 Insulin Lispro [Humalog] See Protocol SUBCUT ACHS 04/13/16 Allergies/Adverse Reactions: No Known Allergies Allergy (Verified 03/18/16 12:12) Review of Systems Constitutional: ABSENT: fever(s), headache(s), night sweats, weakness Eyes: ABSENT: visual disturbances Ears: ABSENT: hearing changes Cardiovascular: ABSENT: chest pain, orthropnea, palpitations Respiratory: ABSENT: dyspnea, hemoptysis Gastrointestinal: PRESENT: abdominal pain, nausea. ABSENT: dysphagia, hematemesis, melena Musculoskeletal: ABSENT: deformity, joint swelling Integumentary: ABSENT: pruritus Neurological: ABSENT: syncope, vertigo, weakness Endocrine: ABSENT: polydipsia, polyphagia, polyuria Hematologic/Lymphatic: ABSENT: easy bruising Physical Exam Vital Signs: Temp Pulse Resp BP Pulse Ox 97.3 F 88 16 127/95 H 99 04/15/16 08:00 04/15/16 08:00 04/15/16 08:00 04/15/16 08:00 04/15/16 08:00 Intake & Output 04/14/16 04/15/16 04/16/16 06:59 06:59 06:59 Intake Total 3413 5404 300 Output Total 900 1650 800 Balance 2513 3754 -500 Weight 63.6 kg 66.5 kg General appearance: PRESENT: no acute distress, cooperative Head exam: PRESENT: atraumatic, normocephalic Eye exam: PRESENT: EOMI, PERRLA. ABSENT: conjunctival injection, nystagmus, periorbital swelling, scleral icterus Mouth exam: ABSENT: moist Throat exam: ABSENT: tonsillar exudate, tonsillogmegaly Neck exam: ABSENT: meningismus, tenderness, thyromegaly Respiratory exam: PRESENT: symmetrical. ABSENT: chest wall tenderness, tachypnea, unlabored, wheezes Cardiovascular exam: PRESENT: RRR, +S1, +S2 GI/Abdominal exam: PRESENT: soft. ABSENT: Ryan's sign, rebound, rigid Musculoskeletal exam: PRESENT: full ROM Neurological exam: PRESENT: oriented to time, oriented to situation, reflexes normal, CN II-XII grossly intact Psychiatric exam: PRESENT: appropriate affect Skin exam: PRESENT: normal color. ABSENT: mottled, pallor, petechiae, rash, urticaria, vesicles Results Laboratory Results: 04/14/16 06:10 04/15/16 06:30 04/14/16 04/14/16 04/14/16 06:10 09:40 13:52 Sodium 137.0 134.7 L Potassium 3.9 4.0 Chloride 112 H 110 H Carbon Dioxide 16 L 12 L Anion Gap 9 13 BUN 16 13 Creatinine 0.61 0.56 Est GFR ( Amer) > 60 > 60 Est GFR (Non-Af Amer) > 60 > 60 Glucose 115 H 140 H Calcium 8.4 7.7 L Amylase 44 Lipase 441.0 H 04/14/16 04/14/16 04/15/16 17:25 21:55 03:28 Sodium 134.8 L 131.1 L 133.8 L Potassium 4.0 4.5 3.6 Chloride 108 H 107 108 H Carbon Dioxide 18 L 17 L 17 L Anion Gap 9 7 9 BUN 12 11 10 Creatinine 0.56 0.51 L 0.52 Est GFR ( Amer) > 60 > 60 > 60 Est GFR (Non-Af Amer) > 60 > 60 > 60 Glucose 113 H 374 H 115 H Calcium 8.1 L 8.0 L 7.8 L Amylase Lipase 04/15/16 06:30 Sodium 135.5 L Potassium 4.1 Chloride 108 H Carbon Dioxide 22 Anion Gap 6 BUN 9 Creatinine 0.50 L Est GFR ( Amer) > 60 Est GFR (Non-Af Amer) > 60 Glucose 133 H Calcium 8.2 L Amylase 35 Lipase 248.0 Impressions: Chest X-Ray 04/13/16 10:37 IMPRESSION: NO ACUTE RADIOGRAPHIC FINDING IN THE CHEST. Abdomen/Pelvis CT 04/14/16 00:00 IMPRESSION: Circumferential distal esophageal wall thickening worrisome for distal esophagitis or distal esophageal tumor Massively distended urinary bladder Lumbar central canal stenosis at L5-S1 from near complete anterolisthesis of L5 over S1. Assessment & Plan - Diagnosis (1) Abnormal CT of the abdomen Plan: will need EGD Risks, benefits and alternatives are discussed with the patient in detail further recommendations to follow will need PPI perhaps low dose Reglan need to clarify reading suggested on CT scan (2) Epigastric abdominal pain Plan: will need to exclude possible PUD Risks, benefits and alternatives discussed, patient is willing to proceed rule out for H.pylori as well (3) Pancreatitis Qualifiers: Chronicity: acute Pancreatitis type: unspecified pancreatitis type Acute pancreatitis complication: no infection or necrosis Qualified Code( s): K85.90 - Acute pancreatitis without necrosis or infection, unspecified Is this a current diagnosis for this admission?: YesPlan: would start with pancreatic enzymes like Zenpep since has evidence of calcifications on CT scan along with 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
[2016-04-15 10:43] LABS: ANION GAP 7 (5-19); BLOOD UREA NITROGEN 9 mg/dL (7-20); CALCIUM 8.1 mg/dL (8.4-10.2); CARBON DIOXIDE 21 mmol/L (22-30); CHLORIDE 104 mmol/L (98-107); CREATININE RESULT 0.54 mg/dL (0.52-1.25); GLUCOSE 296 mg/dL (75-110); POTASSIUM 4.9 mmol/L (3.6-5.0); SODIUM 132.4 mmol/L (137-145)
[2016-04-15] MEDS: FAMOTIDINE INJ/PF 20 MG/2 ML SDV IV SCH ×2 (10:52→21:20)
[2016-04-15] MEDS: INSULIN REG, HUMAN 100 UNIT/ML 3 ML VIAL (PYX) SUBCUT PRN ×3 (12:16→22:08)
[2016-04-15 14:30] LABS: ANION GAP 11 (5-19); BLOOD UREA NITROGEN 8 mg/dL (7-20); CALCIUM 8.4 mg/dL (8.4-10.2); CARBON DIOXIDE 18 mmol/L (22-30); CHLORIDE 104 mmol/L (98-107); CREATININE RESULT 0.59 mg/dL (0.52-1.25); GLUCOSE 223 mg/dL (75-110); POTASSIUM 4.6 mmol/L (3.6-5.0)
[2016-04-15 22:44] LABS: ANION GAP 9 (5-19); BLOOD UREA NITROGEN 7 mg/dL (7-20); CALCIUM 8.4 mg/dL (8.4-10.2); CARBON DIOXIDE 20 mmol/L (22-30); CHLORIDE 106 mmol/L (98-107); CREATININE RESULT 0.54 mg/dL (0.52-1.25); GLUCOSE 165 mg/dL (75-110); POTASSIUM 4.5 mmol/L (3.6-5.0); SODIUM 134.7 mmol/L (137-145)
[2016-04-16] MEDS: POTASSI CL 20 MEQ/NS 1L 1,000 ML IV PRN ×2 (02:12→08:11)
[2016-04-16 02:38] LABS: ANION GAP 6 (5-19); BLOOD UREA NITROGEN 6 mg/dL (7-20); CARBON DIOXIDE 21 mmol/L (22-30); CHLORIDE 108 mmol/L (98-107); CREATININE RESULT 0.51 mg/dL (0.52-1.25); GLUCOSE 92 mg/dL (75-110); POTASSIUM 4.1 mmol/L (3.6-5.0)
[2016-04-16] MEDS: MORPHINE SULFATE 10 MG/ML INJ IV PRN ×4 (03:59→16:12)
[2016-04-16] MEDS: ONDANSETRON HCL INJ/PF 4 MG/2 ML SDV IV PRN ×3 (03:59→12:12)
[2016-04-16 06:29] LABS: ABSOLUTE EOSINOPHILS # (AUTO) 0.1 10^3/uL (0.0-0.6); ABSOLUTE LYMPHOCYTES (AUTO) 1.3 10^3/uL (0.5-4.7); ABSOLUTE MONOCYTES (AUTO) 0.6 10^3/uL (0.1-1.4); ABSOLUTE NEUT (AUTO) 2.4 10^3/uL (1.7-8.2); BASOPHILS % (AUTO) 0.7 % (0-2); EOSINOPHILS % (AUTO) 2.9 % (0-6); HEMATOCRIT 36.7 % (37.9-51.0); HEMOGLOBIN 12.4 g/dL (13.5-17.0); HGB HCT DIFFERENCE 0.5; LYMPHOCYTES % (AUTO) 29.1 % (13-45); MEAN CORPUSCULAR HEMOGLOBIN 30.3 pg (27.0-33.4); MEAN CORPUSCULAR HGB CONC 33.8 g/dL (32.0-36.0); MEAN CORPUSCULAR VOLUME 90 fl (80-97); MONOCYTES % (AUTO) 13.4 % (3-13); RED CELL DISTRIBUTION WIDTH 15.5 % (11.5-14.0); SEGMENTED NEUTROPHILS % (AUTO) 53.9 % (42-78); WHITE BLOOD COUNT 4.5 10^3/uL (4.0-10.5)
[2016-04-16 06:37] LABS: ANION GAP 5 (5-19); BLOOD UREA NITROGEN 6 mg/dL (7-20); CALCIUM 8.2 mg/dL (8.4-10.2); CARBON DIOXIDE 22 mmol/L (22-30); CHLORIDE 107 mmol/L (98-107); CREATININE RESULT 0.51 mg/dL (0.52-1.25); GLUCOSE 232 mg/dL (75-110); POTASSIUM 4.6 mmol/L (3.6-5.0); SODIUM 133.7 mmol/L (137-145)
[2016-04-16] MEDS: ENOXAPARIN SODIUM INJ 40 MG/0.4 ML DISP.SYRIN SUBCUT SCH (08:11)
[2016-04-16] MEDS: INSULIN REG, HUMAN 100 UNIT/ML 3 ML VIAL (PYX) SUBCUT PRN ×2 (09:17→17:26)
[2016-04-16] MEDS: FAMOTIDINE INJ/PF 20 MG/2 ML SDV IV SCH (09:17)
--- NOTE | 2016-04-16 09:37 | PDOC PROGRESS REPORT ---
Subjective Progress Note for:: 04/16/16 Subjective:: Patient without any new complaints. Patient is voiding well. Nausea improved. Patient tolerating liquid diet. For endoscopic studies. Physical Exam Vital Signs: Temp Pulse Resp BP Pulse Ox 97.6 F 84 14 125/87 H 100 04/16/16 08:00 04/16/16 08:00 04/16/16 04:00 04/16/16 08:00 04/16/16 08:00 Intake & Output 04/15/16 04/16/16 04/17/16 06:59 06:59 06:59 Intake Total 5404 4844 Output Total 1650 7740 Balance 3754 2474 Weight 66.5 kg 68.9 kg General appearance: PRESENT: no acute distress, cooperative Head exam: PRESENT: normocephalic Eye exam: PRESENT: EOMI Mouth exam: PRESENT: moist, neck supple Neck exam: ABSENT: JVD Respiratory exam: PRESENT: clear to auscultation alfonso Cardiovascular exam: PRESENT: RRR. ABSENT: gallop GI/Abdominal exam: PRESENT: hypoactive bowel sounds, soft. ABSENT: distended Extremities exam: ABSENT: pedal edema Neurological exam: PRESENT: alert, awake, oriented to situation Skin exam: PRESENT: dry, warm. ABSENT: cyanosis Results Laboratory Results: 04/16/16 06:19 04/16/16 06:19 04/15/16 04/15/16 04/15/16 10:10 13:48 22:15 WBC RBC Hgb Hct MCV MCH MCHC RDW Plt Count Seg Neutrophils % Lymphocytes % Monocytes % Eosinophils % Basophils % Absolute Neutrophils Absolute Lymphocytes Absolute Monocytes Absolute Eosinophils Absolute Basophils Sodium 132.4 L 133.0 L 134.7 L Potassium 4.9 4.6 4.5 Chloride 104 104 106 Carbon Dioxide 21 L 18 L 20 L Anion Gap 7 11 9 BUN 9 8 7 Creatinine 0.54 0.59 0.54 Est GFR ( Amer) > 60 > 60 > 60 Est GFR (Non-Af Amer) > 60 > 60 > 60 Glucose 296 H 223 H 165 H Calcium 8.1 L 8.4 8.4 04/16/16 04/16/16 04/16/16 02:15 06:19 06:19 WBC 4.5 RBC 4.10 L Hgb 12.4 L Hct 36.7 L MCV 90 MCH 30.3 MCHC 33.8 RDW 15.5 H Plt Count 157 Seg Neutrophils % 53.9 Lymphocytes % 29.1 Monocytes % 13.4 H Eosinophils % 2.9 Basophils % 0.7 Absolute Neutrophils 2.4 Absolute Lymphocytes 1.3 Absolute Monocytes 0.6 Absolute Eosinophils 0.1 Absolute Basophils 0.0 Sodium 135.0 L 133.7 L Potassium 4.1 4.6 Chloride 108 H 107 Carbon Dioxide 21 L 22 Anion Gap 6 5 BUN 6 L 6 L Creatinine 0.51 L 0.51 L Est GFR ( Amer) > 60 > 60 Est GFR (Non-Af Amer) > 60 > 60 Glucose 92 232 H Calcium 8.0 L 8.2 L 04/13/16 13:20 Clean Catch Midstream Urine Culture - Final NO GROWTH 2 DAYS Impressions: Chest X-Ray 04/13/16 10:37 IMPRESSION: NO ACUTE RADIOGRAPHIC FINDING IN THE CHEST. Abdomen/Pelvis CT 04/14/16 00:00 IMPRESSION: Circumferential distal esophageal wall thickening worrisome for distal esophagitis or distal esophageal tumor Massively distended urinary bladder Lumbar central canal stenosis at L5-S1 from near complete anterolisthesis of L5 over S1. Renal Ultrasound 04/15/16 00:00 IMPRESSION: NORMAL RENAL AND BLADDER ULTRASOUND. Assessment & Plan - Diagnosis (1) Diabetic ketoacidosis Qualifiers: Diabetes mellitus type: type 1 Diabetes mellitus complication detail: without coma Qualified Code(s): E10.10 - Type 1 diabetes mellitus with ketoacidosis without coma Is this a current diagnosis for this admission?: Yes (2) Acute pancreatitis without infection or necrosis Qualifiers: Pancreatitis type: unspecified pancreatitis type Qualified Code(s): K85.90 - Acute pancreatitis without necrosis or infection, unspecified Is this a current diagnosis for this admission?: Yes (3) Dehydration Is this a current diagnosis for this admission?: Yes (4) Cocaine abuse Is this a current diagnosis for this admission?: Yes (5) Leukocytosis Qualifiers: Leukocytosis type: unspecified Qualified Code(s): D72.829 - Elevated white blood cell count, unspecified Is this a current diagnosis for this admission?: Yes (6) Pancreatitis Qualifiers: Chronicity: acute Pancreatitis type: unspecified pancreatitis type Acute pancreatitis complication: no infection or necrosis Qualified Code( s): K85.90 - Acute pancreatitis without necrosis or infection, unspecified Is this a current diagnosis for this admission?: Yes (7) Hyperkalemia Is this a current diagnosis for this admission?: Yes - Time Time Spent with patient: 15-24 minutes - Plan Summary Plan Summary: Discontinue IV Pepcid and begin oral proton pump inhibitor. Awaiting upper endoscopy. Continue supportive care.
[2016-04-16 11:02] LABS: ANION GAP 10 (5-19); BLOOD UREA NITROGEN 8 mg/dL (7-20); CALCIUM 8.4 mg/dL (8.4-10.2); CARBON DIOXIDE 20 mmol/L (22-30); CHLORIDE 104 mmol/L (98-107); CREATININE RESULT 0.54 mg/dL (0.52-1.25); GLUCOSE 299 mg/dL (75-110); POTASSIUM 4.8 mmol/L (3.6-5.0); SODIUM 133.5 mmol/L (137-145)
[2016-04-16] MEDS ORDERED: NALOXONE HCL INJ/PF 0.4 MG/1 ML SDV ONE (13:03)
[2016-04-16] MEDS ORDERED: DIPHENHYDRAMINE HCL 50 MG/ML VIAL ONE (13:03)
[2016-04-16] MEDS ORDERED: PROMETHAZINE HCL INJ 25 MG/1 ML VIAL ONE (13:04)
[2016-04-16] MEDS ORDERED: ONDANSETRON HCL INJ/PF 4 MG/2 ML SDV ONE (13:04)
[2016-04-16] MEDS ORDERED: GLUCAGON,HUMAN RECOMB 1 MG INJ ONE (13:05)
[2016-04-16] MEDS ORDERED: FENTANYL CITRATE INJ/PF 100 MCG/2 ML AMPUL ONE (13:05)
[2016-04-16] MEDS ORDERED: EPINEPHRINE INJ 1 MG/10 ML DISP.SYRIN ONE (13:05)
[2016-04-16] MEDS ORDERED: FLUMAZENIL INJ 0.5 MG/5 ML VIAL IV ONE (13:05)
[2016-04-16] MEDS: MIDAZOLAM 2 MG/2 ML INJ ONE ×2 (13:20→13:24)
--- NOTE | 2016-04-16 13:34 | Operative Report ---
Operative Report DATE OF SURGERY: 04/16/16 Operative Report: The risks benefits and alternatives of the procedure explained to the patient in detail and informed consent is obtained that GIF Olympus video scope was inserted into the patient's mouth and hypopharynx the esophagus is identified intubated and insufflated the scope was then advanced through the esophagus stomach and duodenum retroflexion maneuver is done the esophagus stomach and first and second portions of the duodenum examined PREOPERATIVE DIAGNOSIS: Abnormal imaging. Question distal esophageal mass versus stricture read by radiologist POSTOPERATIVE DIAGNOSIS: Severe erosive esophagitis on the no stricture. Biopsies obtained. Gastroparesis. Gastritis. Duodenitis. Biopsies obtained to rule out Helicobacter pylori, rule out celiac disease OPERATION: EGD with biopsy SURGEON: MANGO NORRIS ANESTHESIA: Moderate Sedation - 3 mg of Versed, 100 g of fentanyl. Conscious sedation monitoring time 15 minutes TISSUE REMOVED OR ALTERED: Esophageal specimens obtained. Gastric specimens obtained. Duodenal specimens obtained COMPLICATIONS: None. ESTIMATED BLOOD LOSS: none INTRAOPERATIVE FINDINGS: As noted above PROCEDURE: Patient tolerated the procedure well. No immediate postprocedure complications are noted. Patient is discharged in good condition. I've spoken to Dr. Estrada No stricture all malignancy noted, will await on biopsies Treat for Helicobacter pylori as an outpatient Continue PPI May add short-term Reglan to help with his symptoms Should be able to discharge no other issues
[2016-04-16 15:24] LABS: ANION GAP 10 (5-19); BLOOD UREA NITROGEN 6 mg/dL (7-20); CALCIUM 8.6 mg/dL (8.4-10.2); CARBON DIOXIDE 21 mmol/L (22-30); CHLORIDE 102 mmol/L (98-107); CREATININE RESULT 0.51 mg/dL (0.52-1.25); GLUCOSE 184 mg/dL (75-110); POTASSIUM 4.4 mmol/L (3.6-5.0); SODIUM 133.1 mmol/L (137-145)
--- NOTE | 2016-04-16 16:40 | PDOC DISCHARGE SUMMARY ---
General - Admit/Disc Date/PCP Admission Date/Primary Care Provider: 04/13/16 13:16 Discharge Date: 04/16/16 - Discharge Diagnosis (1) Diabetic ketoacidosis Is this a current diagnosis for this admission?: Yes (2) Dehydration Is this a current diagnosis for this admission?: Yes (3) Diabetic gastroparesis Is this a current diagnosis for this admission?: Yes (4) Erosive esophagitis Is this a current diagnosis for this admission?: Yes (5) Cocaine abuse Is this a current diagnosis for this admission?: Yes (6) Pancreatitis Is this a current diagnosis for this admission?: Yes (7) Hyperkalemia Is this a current diagnosis for this admission?: Yes - Additional Information Resuscitation Status: Full Code Discharge Diet: Diabetic - no concentrated sweets Discharge Activity: Activity As Tolerated, Balance Activity w/Rest Home Medications: Insulin Glargine,Hum.rec.anlog [Lantus Insulin 100 Unit/mL] 35 unit SUBCUT QHS 04/13/16 Insulin Lispro [Humalog] See Protocol SUBCUT ACHS 04/13/16 Lansoprazole [Prevacid] 30 mg PO BID #60 capsule. 04/16/16 Metoclopramide HCl [Reglan 10 mg Tablet] 10 mg PO ACHS PRN #120 tablet 04/16/16 Tramadol HCl [Ultram] 50 mg PO Q6H PRN #40 tablet 04/16/16 Additional Information: 1. Stop cocaine 2. Measure blood sugar 3 times a day and record, bring to physician visit 3. Follow-up result of biopsy of the esophagus as outpatient with primary care physician, or Dr. Campa 4. Repeat CT of the abdomen with IV contrast in 6 months for follow-up of esophageal thickening History of Present Illness Patient complains of: Abdominal pain, nausea and vomiting History of Present Illness: CHESTER MCKEON is a 36 year old male, with insulin-dependent diabetes mellitus who was hospitalized reportedly last month for pancreatitis and DKA presents to the hospital with the above complaints. He has difficulty tolerating oral intake. He reports being compliant to his insulin. The patient presents to the emergency room and blood sugar was found to be elevated with high anion gap on chemistry consistent with DKA. He has a history of substance abuse. For details, please refer to history and physical examination performed by the admitting physician. Hospital Course Hospital Course: The patient was admitted to the stepdown unit. Patient was hydrated with intravenous fluid, and likewise started on intravenous insulin drip. Blood sugars were monitored hourly as well as anion gap every 6 hours. When blood sugar was below 250, IV fluid was changed to dextrose containing until the patient's anion gap normalized. At this point when the anion gap was normal the patient's insulin drip was discontinued, he was started on clear liquid diet and subcutaneous insulin coverage. The patient's course was noted for persistent abdominal discomfort with associated nausea. His initial lipase level was elevated but it has normalized on subsequent monitoring. A CT of the abdomen and pelvis was done per performed showing no pancreatitis, but did show a distended urinary bladder as well as thickening on the distal esophageal wall. Patient has been maintained on intravenous H2 receptor diego. Gastroenterology was consulted and eventually upper endoscopy performed showing erosive esophagitis, gastritis and duodenitis. A diagnosis of gastroparesis was likewise made. The patient improved. Gastroenterology recommended proton pump inhibitor and Reglan. The patient's diet was advanced. In terms of the distended urinary bladder, the patient was able to void freely subsequently, and a follow-up renal ultrasound was negative. Patient denies any urinary symptoms. His abdominal discomfort mainly on the epigastric region as stated above. He was eventually discharged home improved with instructions to follow up biopsy result as outpatient with primary care physician or gastroenterology, monitor blood sugars 3 times a day and record and bring to next physician visit , monitor for any signs of bleeding. Physical Exam Vital Signs: Temp Pulse Resp BP Pulse Ox 97.4 F 91 16 110/74 100 04/16/16 14:35 04/16/16 14:35 04/16/16 14:35 04/16/16 14:35 04/16/16 14:35 Intake & Output 04/15/16 04/16/16 04/17/16 06:59 06:59 06:59 Intake Total 5404 4844 350 Output Total 1650 2370 Balance 3754 3974 350 Weight 66.5 kg 68.9 kg General appearance: PRESENT: no acute distress, cooperative Head exam: PRESENT: normocephalic Eye exam: PRESENT: EOMI Mouth exam: PRESENT: moist, neck supple Neck exam: ABSENT: JVD Respiratory exam: PRESENT: clear to auscultation alfonso Cardiovascular exam: PRESENT: RRR GI/Abdominal exam: PRESENT: hypoactive bowel sounds, soft. ABSENT: distended Extremities exam: ABSENT: pedal edema Neurological exam: PRESENT: alert, awake, oriented to person, oriented to place , oriented to time, oriented to situation Skin exam: PRESENT: dry, warm. ABSENT: cyanosis Results Laboratory Results: 04/16/16 06:19 04/16/16 14:48 04/15/16 04/16/16 04/16/16 22:15 02:15 06:19 WBC RBC Hgb Hct MCV MCH MCHC RDW Plt Count Seg Neutrophils % Lymphocytes % Monocytes % Eosinophils % Basophils % Absolute Neutrophils Absolute Lymphocytes Absolute Monocytes Absolute Eosinophils Absolute Basophils Sodium 134.7 L 135.0 L 133.7 L Potassium 4.5 4.1 4.6 Chloride 106 108 H 107 Carbon Dioxide 20 L 21 L 22 Anion Gap 9 6 5 BUN 7 6 L 6 L Creatinine 0.54 0.51 L 0.51 L Est GFR ( Amer) > 60 > 60 > 60 Est GFR (Non-Af Amer) > 60 > 60 > 60 Glucose 165 H 92 232 H Calcium 8.4 8.0 L 8.2 L 04/16/16 04/16/16 04/16/16 06:19 10:12 14:48 WBC 4.5 RBC 4.10 L Hgb 12.4 L Hct 36.7 L MCV 90 MCH 30.3 MCHC 33.8 RDW 15.5 H Plt Count 157 Seg Neutrophils % 53.9 Lymphocytes % 29.1 Monocytes % 13.4 H Eosinophils % 2.9 Basophils % 0.7 Absolute Neutrophils 2.4 Absolute Lymphocytes 1.3 Absolute Monocytes 0.6 Absolute Eosinophils 0.1 Absolute Basophils 0.0 Sodium 133.5 L 133.1 L Potassium 4.8 4.4 Chloride 104 102 Carbon Dioxide 20 L 21 L Anion Gap 10 10 BUN 8 6 L Creatinine 0.54 0.51 L Est GFR ( Amer) > 60 > 60 Est GFR (Non-Af Amer) > 60 > 60 Glucose 299 H 184 H Calcium 8.4 8.6 Impressions: Chest X-Ray 04/13/16 10:37 IMPRESSION: NO ACUTE RADIOGRAPHIC FINDING IN THE CHEST. Abdomen/Pelvis CT 04/14/16 00:00 IMPRESSION: Circumferential distal esophageal wall thickening worrisome for distal esophagitis or distal esophageal tumor Massively distended urinary bladder Lumbar central canal stenosis at L5-S1 from near complete anterolisthesis of L5 over S1. Renal Ultrasound 04/15/16 00:00 IMPRESSION: NORMAL RENAL AND BLADDER ULTRASOUND. Qualifiers [place] BEING DISCHARGED WITH ANY OF THE FOLLOWING DIAGNOSIS?: No Plan Discharge Plan: Follow-up. [facility] in one week. Follow-up with gastroenterology Dr. Campa in 2 weeks to 4 weeks. Time Spent: Less than 30 Minutes
[2016-04-16 17:53] VITALS: BP 132/101
== END 2016-04-16 18:35 | disposition home or self-care (01) | DRG 638 ==
LOC: ER 10:23 → UNDOADMIN 13:11 → EH 13:11 → ICU 14:49 → 4S 04-16 14:24
PROVIDERS: ADMIT Emergency Medicine; ATTEND Emergency Medicine
PROC: 0DB68ZX Excision of Stomach, Via Natural or Artificial Opening Endoscopic, Diagnostic (ICD-10-PCS; 2016-04-16)
PROC: 0DB58ZX Excision of Esophagus, Via Natural or Artificial Opening Endoscopic, Diagnostic (ICD-10-PCS; 2016-04-16)
PROC: 0DB98ZX Excision of Duodenum, Via Natural or Artificial Opening Endoscopic, Diagnostic (ICD-10-PCS; principal; 2016-04-16 13:00)
DX: E10.10 Type 1 diabetes mellitus with ketoacidosis without coma (principal); K22.10 Ulcer of esophagus without bleeding; E10.43 Type 1 diabetes mellitus with diabetic autonomic (poly)neuropathy; Z79.4 Long term (current) use of insulin; I10 Essential (primary) hypertension; E78.5 Hyperlipidemia, unspecified; N32.89 Other specified disorders of bladder; F17.200 Nicotine dependence, unspecified, uncomplicated; F32.9 Major depressive disorder, single episode, unspecified; E86.0 Dehydration; K31.84 Gastroparesis; K29.70 Gastritis, unspecified, without bleeding; K29.80 Duodenitis without bleeding; F14.10 Cocaine abuse, uncomplicated; D72.829 Elevated white blood cell count, unspecified; E87.5 Hyperkalemia
CPT/HCPCS: 36415; 43239; 71010; 74177; 76770; 80048; 80053; 80307; 81001; 82150; 82803; 82962; 83605; 83690; 83735; 85025; 85027; 87040; 87086; 88305; 88342; 93005; 93010; 96374; 99285; J0171; J1200; J1610; J1650; J1815; J1885; J2250; J2270; J2310; J2405; J2550; J2765; J3010; J3480; J3490; J7030; J7120; S0028; S0119

== ENCOUNTER 2016-04-17 20:42 | Emergency (ER) | payer OTHER ==
[2016-04-17] MEDS ORDERED: ONDANSETRON 4 MG TAB.RAPDIS PO ONE (21:02)
--- NOTE | 2016-04-17 21:04 | ER Document Report ---
ED Medical Screen (RME) - General Chief Complaint: Vomiting Stated Complaint: VOMITING BLOOD Notes: Patient states he was just released from [facility] yesterday spent some time in intensive care unit for acute pancreatitis patient continues to vomit uncontrollably and is now vomiting dark blood. Patient is also having loose stools. Patient is a diabetic 1, has hypertension, and history of acute pancreatitis. Patient does not currently have any insulin at home. I have greeted and performed a rapid initial assessment of this patient. A comprehensive ED assessment and evaluation of the patient, analysis of test results and completion of the medical decision making process will be conducted by additional ED providers. TRAVEL OUTSIDE OF THE [place] IN LAST 30 DAYS: Yes - Related Data Allergies/Adverse Reactions: No Known Allergies Allergy (Verified 03/18/16 12:12) Past Medical History - Past Medical History Cardiac Medical History: Reports: Hx Hypercholesterolemia, Hx Hypertension Pulmonary Medical History: Denies: Hx Tuberculosis Neurological Medical History: Denies: Hx Seizures Endocrine Medical History: Reports: Hx Diabetes Mellitus Type 1 - 4 years. Denies: Hx Diabetes Mellitus Type 2, Hx Graves' Disease, Hx Hyperthyroidism, Hx Hypothyroidism Renal/ Medical History: Denies: Hx Peritoneal Dialysis Psychiatric Medical History: Reports: Hx Depression Past Surgical History: Reports: Hx Orthopedic Surgery - back. Denies: Hx Appendectomy, Hx Bowel Surgery, Hx Cholecystectomy, Hx Coronary Artery Bypass Graft, Hx Gastric Bypass Surgery, Hx Herniorrhaphy, Hx Pacemaker, Hx Tonsillectomy - Immunizations Hx Diphtheria, Pertussis, Tetanus Vaccination: Yes Physical Exam - Vital signs Vitals: Temp Pulse Resp BP Pulse Ox 98.3 F 130 H 20 120/66 100 04/17/16 21:05 04/17/16 21:05 04/17/16 21:05 04/17/16 21:05 04/17/16 21:05 - Notes Notes: Pt looks uncomfortable, leaning over. States it is too painful to sit up straight. - Cardiovascular Rhythm: Regular, Tachycardia Course - Vital Signs Vital signs: Temp Pulse Resp BP Pulse Ox 98.3 F 130 H 20 120/66 100 04/17/16 21:05 04/17/16 21:05 04/17/16 21:05 04/17/16 21:05 04/17/16 21:05
[2016-04-17] MEDS ORDERED: NORMAL SALINE 1000 ML 1,000 ML IV ONE ×3 (21:31→22:38)
[2016-04-17] MEDS ORDERED: PANTOPRAZOLE SODIUM 40 MG VIAL IV ONE (21:34)
--- NOTE | 2016-04-17 21:37 | ER Document Report ---
ED General <LICO GRANADOS - Last Filed: 04/18/16 19:22> - General Time seen by provider: 21:35 TRAVEL OUTSIDE OF THE [place] IN LAST 30 DAYS: Yes <CISCO LYN - Last Filed: 04/18/16 21:45> - General Chief Complaint: Vomiting Stated Complaint: VOMITING BLOOD Notes: Patient is a 36-year-old male with a history of type I diabetes that comes emergency department for chief complaint of vomiting 15 times today, states he started vomiting this morning, states he started to vomit blood. Patient states he is out of his insulin at home. He states has not been able to tolerate any food or liquids. Denies bloody bowel movements. Patient was released from the hospital yesterday, has a history of gastritis/duodenitis/ esophagitis diagnosed by EGD during his stay, also has history of pancreatitis, also has a history of cocaine abuse. (CISCO LYN) - Related Data Allergies/Adverse Reactions: No Known Allergies Allergy (Verified 03/18/16 12:12) Past Medical History - General Information source: Patient - Social History Smoking Status: Never Smoker Chew tobacco use (# tins/day): No Frequency of alcohol use: None Drug Abuse: None Lives with: Family Family History: DM, Hyperlipidemia, Hypertension Patient has suicidal ideation: No Patient has homicidal ideation: No - Past Medical History Cardiac Medical History: Reports: Hx Hypercholesterolemia, Hx Hypertension Pulmonary Medical History: Denies: Hx Tuberculosis Neurological Medical History: Denies: Hx Seizures Endocrine Medical History: Reports: Hx Diabetes Mellitus Type 1 - 4 years. Denies: Hx Diabetes Mellitus Type 2, Hx Graves' Disease, Hx Hyperthyroidism, Hx Hypothyroidism Renal/ Medical History: Denies: Hx Peritoneal Dialysis Psychiatric Medical History: Reports: Hx Depression Past Surgical History: Reports: Hx Orthopedic Surgery - back. Denies: Hx Appendectomy, Hx Bowel Surgery, Hx Cholecystectomy, Hx Coronary Artery Bypass Graft, Hx Gastric Bypass Surgery, Hx Herniorrhaphy, Hx Pacemaker, Hx Tonsillectomy - Immunizations Hx Diphtheria, Pertussis, Tetanus Vaccination: Yes Hx Pneumococcal Vaccination: 11/09/11 <CISCO LYN - Last Filed: 04/18/16 21:45> Review of Systems - Review of Systems Constitutional: No symptoms reported EENT: No symptoms reported Cardiovascular: No symptoms reported Respiratory: No symptoms reported Gastrointestinal: See HPI Genitourinary: No symptoms reported Male Genitourinary: No symptoms reported Musculoskeletal: No symptoms reported Skin: No symptoms reported Hematologic/Lymphatic: No symptoms reported Neurological/Psychological: No symptoms reported <KRISTINJASSCISCO - Last Filed: 04/18/16 21:45> Physical Exam - Vital signs Interpretation: Normal - General General appearance: Alert, Anxious In distress: Moderate - patient appears to be very uncomfortable, holding emesis bag closely - HEENT Head: Normocephalic, Atraumatic Eyes: Normal Conjunctiva: Normal Extraocular movements intact: Yes Eyelashes: Normal Pupils: PERRL Mouth/Lips: Normal Mucous membranes: Normal Pharynx: Normal Neck: Normal - Respiratory Respiratory status: No respiratory distress Chest status: Nontender Breath sounds: Normal. No: Decreased air movement, Wheezing Chest palpation: Normal - Cardiovascular Rhythm: Regular, Tachycardia Heart sounds: Normal auscultation, S1 appreciated, S2 appreciated - Abdominal Inspection: Normal Distension: No distension Bowel sounds: Normal Tenderness: Tender - generalized abdominal pain, non-specific, no guarding Organomegaly: No organomegaly - Back Back: Normal, Nontender. No: Tender - Extremities General upper extremity: Normal inspection, Nontender, Normal color, Normal ROM , Normal temperature General lower extremity: Normal inspection, Nontender, Normal color, Normal ROM , Normal temperature, Normal weight bearing. 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 At that time he needed more pain medicine and was prescribed fentanyl at that time now he is complaining of nausea and will repeat his Zofran. His blood sugar is down to 70s we will feed the patient a bland cardiac diet. Insulin drip has been turned down. We'll continue to monitor. At this time transfer center states that we'll probably be afternoon before he gets up at. 04/18/16 19:22 Patient has been monitored throughout the day today multiple doses of Zofran and Dilaudid given. IV fluids have been adjusted as the sugar went up and down. Patient has been given a cardiac diet but mostly what he has had has been clear liquids. Report is being given to Cisco APONTE. Transport is supposed to be here around 9:00 and the patient now has a room [facility]. (LICO GRANADOS) Patient tachycardic, borderline hypotensive, mild tachypnea. Concern for both DKA in type I diabetic and upper GI bleed with reported hematemesis. On evaluation there is no gross melena, however lab result is positive for blood in the stool. Giving bolus of Protonix, being given fluid boluses, workup pending. Patient has had a recent endoscopy showing gastritis, severe erosive esophagitis, duodenitis. Bicarbonate is low at 10, pH is acidotic at 7.24, glucose is 5:15, anion gap is low at 20. Consistent with DKA, patient placed on insulin drip. Patient on continuous Protonix, IV fluids. Spoke with video control operator, we do not have GI coverage until 04/21/16. 04/18/[address] Allen, recommends patient be transferred for upper GI bleed in the setting of DKA. 04/18/16 00:[address] Van, force variation equipment tender at [facility], patient will be accepted to the PCU. On reevaluation patient is complaining of some nausea and pain again, tachycardia has improved, blood pressure improved, patient appears improved. Reevaluated again, patient had a dark bowel movement consistent with melena, consistent with upper GI bleed. Glucose trended down to 210, switching IV fluids to D5 half-normal with potassium. Confirmed with Dr. Allen. Transfer still pending. 04/18/16 21:44 Patient reevaluated at bedside, not tachycardic, not hypotensive, patient does appear to be in some pain. Patient denies nausea at this time. Patient is requesting pain medication, otherwise states he is comfortable and has no other concerns. Transport team and route, expected to be here at about 10 PM. (CISCO LYN) - Vital Signs Vital signs: Temp Pulse Resp BP Pulse Ox 97.4 F 130 H 14 123/93 H 98 04/18/16 18:00 04/17/16 21:05 04/18/16 19:31 04/18/16 19:31 04/18/16 19:31 - Laboratory Laboratory results interpreted by me: 04/17/16 04/17/16 04/17/16 21:40 21:40 21:40 WBC 11.7 H D RBC 3.95 L Hgb 11.9 L Hct 37.1 L RDW 16.6 H Lymphocytes % 11.0 L Absolute Neutrophils 9.0 H VBG pH 7.24 L VBG pCO2 22.5 L VBG HCO3 9.5 L Sodium 130.7 L Potassium Chloride Carbon Dioxide 10 L* Anion Gap 20 H Glucose 515 H* POC Glucose Lactic Acid Calcium Alkaline Phosphatase 152 H Total Protein 5.9 L Albumin 3.2 L Lipase 303.9 H Urine Glucose (UA) Urine Ketones 04/17/16 04/18/16 04/18/16 23:20 00:41 01:45 WBC RBC Hgb Hct RDW Lymphocytes % Absolute Neutrophils VBG pH VBG pCO2 VBG HCO3 Sodium Potassium Chloride Carbon Dioxide Anion Gap Glucose POC Glucose 406 H* 306 H 282 H Lactic Acid Calcium Alkaline Phosphatase Total Protein Albumin Lipase Urine Glucose (UA) Urine Ketones 04/18/16 04/18/16 04/18/16 02:34 03:49 05:28 WBC RBC Hgb Hct RDW Lymphocytes % Absolute Neutrophils VBG pH VBG pCO2 VBG HCO3 Sodium Potassium Chloride Carbon Dioxide Anion Gap Glucose POC Glucose 281 H 210 H 119 H Lactic Acid Calcium Alkaline Phosphatase Total Protein Albumin Lipase Urine Glucose (UA) Urine Ketones 04/18/16 04/18/16 04/18/16 06:25 07:18 07:18 WBC RBC 3.36 L Hgb 10.3 L Hct 30.5 L RDW 16.0 H Lymphocytes % Absolute Neutrophils VBG pH VBG pCO2 VBG HCO3 Sodium 135.9 L Potassium 3.5 L D Chloride 111 H Carbon Dioxide 16 L Anion Gap Glucose POC Glucose 113 H Lactic Acid Calcium 8.2 L Alkaline Phosphatase Total Protein Albumin Lipase Urine Glucose (UA) Urine Ketones 04/18/16 04/18/16 04/18/16 09:50 11:06 12:33 WBC RBC Hgb Hct RDW Lymphocytes % Absolute Neutrophils VBG pH VBG pCO2 VBG HCO3 Sodium Potassium Chloride Carbon Dioxide Anion Gap Glucose POC Glucose 135 H 230 H Lactic Acid Calcium Alkaline Phosphatase Total Protein Albumin Lipase Urine Glucose (UA) >=500 H Urine Ketones 20 H 04/18/16 04/18/16 04/18/16 12:53 12:53 13:39 WBC RBC 3.71 L Hgb 11.1 L Hct 33.6 L RDW 15.5 H Lymphocytes % Absolute Neutrophils VBG pH VBG pCO2 VBG HCO3 Sodium 134.7 L Potassium Chloride 111 H Carbon Dioxide 15 L Anion Gap Glucose 241 H POC Glucose 259 H Lactic Acid Calcium Alkaline Phosphatase Total Protein Albumin Lipase Urine Glucose (UA) Urine Ketones 04/18/16 04/18/16 04/18/16 14:44 15:03 15:03 WBC RBC Hgb Hct RDW Lymphocytes % Absolute Neutrophils VBG pH 7.29 L VBG pCO2 VBG HCO3 17.4 L Sodium Potassium Chloride Carbon Dioxide Anion Gap Glucose POC Glucose 192 H Lactic Acid 3.5 H Calcium Alkaline Phosphatase Total Protein Albumin Lipase Urine Glucose (UA) Urine Ketones 04/18/16 04/18/16 04/18/16 15:52 16:47 17:48 WBC RBC Hgb Hct RDW Lymphocytes % Absolute Neutrophils VBG pH VBG pCO2 VBG HCO3 Sodium Potassium Chloride Carbon Dioxide Anion Gap Glucose POC Glucose 151 H 123 H 142 H Lactic Acid Calcium Alkaline Phosphatase Total Protein Albumin Lipase Urine Glucose (UA) Urine Ketones 04/18/16 18:20 WBC RBC Hgb Hct RDW Lymphocytes % Absolute Neutrophils VBG pH VBG pCO2 VBG HCO3 Sodium Potassium Chloride Carbon Dioxide Anion Gap Glucose POC Glucose Lactic Acid 2.8 H Calcium Alkaline Phosphatase Total Protein Albumin Lipase Urine Glucose (UA) Urine Ketones Critical Care Note <LICO GRANADOS - Last Filed: 04/18/16 19:22> - Critical Care Note Total time excluding time spent on procedures (mins): 45 - DKA, upper GI bleed, tachycardia, hypotension <CISCO LYN - Last Filed: 04/18/16 21:45> - Critical Care Note Comments: Please allow 45 minutes of critical care time for evaluation and treatment of patient with DKA and upper GI bleed. Treatments with IV fluids, insulin drip, Protonix bolus and drip, multiple re-evaluations, consultation and transfer to tertiary care facility. (CISCO LYN) Discharge <ILCO GRANADOS - Last Filed: 04/18/16 19:22> <CISCO LYN - Last Filed: 04/18/16 21:45> - Discharge Clinical Impression: Dehydration, Tachycardia Hematemesis Qualifiers: Nausea presence: with nausea Qualified Code(s): K92.0 - Hematemesis DKA, type 1 Qualifiers: Diabetes mellitus complication detail: without coma Qualified Code(s): E10.10 - Type 1 diabetes mellitus with ketoacidosis without coma Condition: Stable Disposition: [facility]
[2016-04-17 21:57] LABS: VENOUS BLOOD BASE EXCESS -15.8 mmol/L; VENOUS BLOOD HCO3 9.5 mmol/L (20-32); VENOUS BLOOD PCO2 22.5 mmHg (35-63); VENOUS BLOOD PH 7.24 (7.30-7.42)
[2016-04-17 22:06] LABS: ABSOLUTE BASOPHILS # (AUTO) 0.1 10^3/uL (0.0-0.2); ABSOLUTE LYMPHOCYTES (AUTO) 1.3 10^3/uL (0.5-4.7); ABSOLUTE MONOCYTES (AUTO) 1.2 10^3/uL (0.1-1.4); BASOPHILS % (AUTO) 0.7 % (0-2); EOSINOPHILS % (AUTO) 0.3 % (0-6); HEMATOCRIT 37.1 % (37.9-51.0); HEMOGLOBIN 11.9 g/dL (13.5-17.0); HGB HCT DIFFERENCE -1.4; MEAN CORPUSCULAR HEMOGLOBIN 30.1 pg (27.0-33.4); MEAN CORPUSCULAR HGB CONC 32.1 g/dL (32.0-36.0); MONOCYTES % (AUTO) 10.6 % (3-13); RED BLOOD COUNT 3.95 10^6/uL (4.35-5.55); RED CELL DISTRIBUTION WIDTH 16.6 % (11.5-14.0); SEGMENTED NEUTROPHILS % (AUTO) 77.4 % (42-78)
[2016-04-17 22:08] LABS: ALANINE AMINOTRANSFERASE 46 U/L (21-72); ALBUMIN 3.2 g/dL (3.5-5.0); ALKALINE PHOSPHATASE 152 U/L (38-126); ASPARTATE AMINO TRANSFERASE 24 U/L (17-59); BILIRUBIN,TOTAL 0.6 mg/dL (0.2-1.3); BLOOD UREA NITROGEN 18 mg/dL (7-20); CALCIUM 9.5 mg/dL (8.4-10.2); CHLORIDE 101 mmol/L (98-107); CREATININE RESULT 0.84 mg/dL (0.52-1.25); LIPASE 303.9 U/L (23-300); MEAN CORPUSCULAR VOLUME 94 fl (80-97); TOTAL PROTEIN 5.9 g/dL (6.3-8.2); WHITE BLOOD COUNT 11.7 10^3/uL (4.0-10.5)
[2016-04-17 22:20] LABS: POTASSIUM 4.9 mmol/L (3.6-5.0); SODIUM 130.7 mmol/L (137-145)
[2016-04-17 22:21] LABS: ANION GAP 20 (5-19)
[2016-04-17 22:26] LABS: CARBON DIOXIDE 10 mmol/L (22-30); GLUCOSE 515 mg/dL (75-110)
[2016-04-17] MEDS ORDERED: NORMAL SALINE 100 ML with INSULIN REGULAR, HUMAN 100 UNIT IV PRN ×2 (22:37)
[2016-04-17] MEDS ORDERED: INSULIN REG, HUMAN 100 UNIT/ML 3 ML VIAL (PYX) ONE (23:07)
[2016-04-17] MEDS: PANTOPRAZOLE SODIUM 40 MG VIAL IV PRN (23:51)
[2016-04-18] MEDS ORDERED: NORMAL SALINE 1000 ML 1,000 ML IV PRN (00:34)
[2016-04-18] MEDS ORDERED: ONDANSETRON HCL INJ/PF 4 MG/2 ML SDV IV ONE ×5 (03:40→19:42)
[2016-04-18] MEDS ORDERED: FENTANYL CITRATE INJ/PF 100 MCG/2 ML AMPUL IV ONE ×3 (04:26→21:42)
[2016-04-18] MEDS: POTASSI CL 20 MEQ/D5-1/2NS 1L 1,000 ML IV PRN ×2 (04:51→14:40)
[2016-04-18 07:28] LABS: HEMATOCRIT 30.5 % (37.9-51.0); HEMOGLOBIN 10.3 g/dL (13.5-17.0); HGB HCT DIFFERENCE 0.4; MEAN CORPUSCULAR HEMOGLOBIN 30.6 pg (27.0-33.4); MEAN CORPUSCULAR HGB CONC 33.7 g/dL (32.0-36.0); MEAN CORPUSCULAR VOLUME 91 fl (80-97); RED BLOOD COUNT 3.36 10^6/uL (4.35-5.55); WHITE BLOOD COUNT 8.7 10^3/uL (4.0-10.5)
[2016-04-18 07:44] LABS: ANION GAP 9 (5-19); BLOOD UREA NITROGEN 14 mg/dL (7-20); CALCIUM 8.2 mg/dL (8.4-10.2); CARBON DIOXIDE 16 mmol/L (22-30); CHLORIDE 111 mmol/L (98-107); CREATININE RESULT 0.58 mg/dL (0.52-1.25); GLUCOSE 99 mg/dL (75-110); SODIUM 135.9 mmol/L (137-145)
[2016-04-18 08:02] LABS: POTASSIUM 3.5 mmol/L (3.6-5.0)
[2016-04-18] MEDS ORDERED: PANTOPRAZOLE SODIUM 40 MG VIAL IV PRN (09:11)
[2016-04-18 10:10] LABS: APPEARANCE,URINE CLOUDY; BILIRUBIN,URINE NEGATIVE (NEGATIVE); GLUCOSE, URINE >=500 mg/dL (NEGATIVE); KETONES,URINE 20 mg/dL (NEGATIVE); LEUKOCYTE ESTERASE,URINE NEGATIVE (NEGATIVE); NITRITE,URINE NEGATIVE (NEGATIVE); PROTEIN,URINE NEGATIVE (NEGATIVE); URINE SPECIFIC GRAVITY 1.017; UROBILINOGEN,URINE NEGATIVE mg/dL (<2.0)
[2016-04-18 10:33] LABS: URINE BARBITURATES SCREEN NEGATIVE; URINE METHADONE SCREEN NEGATIVE; URINE OPIATES LOW NEGATIVE; URINE PHENCYCLIDINE SCREEN NEGATIVE
--- NOTE | 2016-04-18 10:51 | EKG REPORT ---
SEVERITY:- OTHERWISE NORMAL ECG - SINUS TACHYCARDIA : Confirmed by: Ruchi King 18-Apr-2016 10:50:31
[2016-04-18] MEDS ORDERED: HYDROMORPHONE HCL INJ/PF 2 MG/ML AMPULE IV ONE ×3 (12:12→18:16)
[2016-04-18 13:15] LABS: HEMATOCRIT 33.6 % (37.9-51.0); HEMOGLOBIN 11.1 g/dL (13.5-17.0); HGB HCT DIFFERENCE -0.3; MEAN CORPUSCULAR HEMOGLOBIN 29.8 pg (27.0-33.4); MEAN CORPUSCULAR HGB CONC 32.9 g/dL (32.0-36.0); MEAN CORPUSCULAR VOLUME 91 fl (80-97); RED BLOOD COUNT 3.71 10^6/uL (4.35-5.55); RED CELL DISTRIBUTION WIDTH 15.5 % (11.5-14.0); WHITE BLOOD COUNT 7.8 10^3/uL (4.0-10.5)
[2016-04-18 13:17] LABS: ANION GAP 9 (5-19); BLOOD UREA NITROGEN 11 mg/dL (7-20); CALCIUM 8.5 mg/dL (8.4-10.2); CARBON DIOXIDE 15 mmol/L (22-30); CHLORIDE 111 mmol/L (98-107); CREATININE RESULT 0.63 mg/dL (0.52-1.25); GLUCOSE 241 mg/dL (75-110); POTASSIUM 3.8 mmol/L (3.6-5.0); SODIUM 134.7 mmol/L (137-145)
[2016-04-18 15:37] LABS: VENOUS BLOOD BASE EXCESS -8.4 mmol/L; VENOUS BLOOD HCO3 17.4 mmol/L (20-32); VENOUS BLOOD PCO2 37.2 mmHg (35-63); VENOUS BLOOD PH 7.29 (7.30-7.42)
[2016-04-18] MEDS: PANTOPRAZOLE SODIUM 40 MG VIAL IV PRN (17:28)
[2016-04-18 22:13] VITALS: BP 129/87
--- NOTE | 2016-04-20 08:57 | EKG REPORT ---
SEVERITY:- OTHERWISE NORMAL ECG - SINUS TACHYCARDIA : Confirmed on behalf of: Ruchi King 20-Apr-2016 08:56:40
== END 2016-04-18 22:38 | disposition short-term general hospital (02) ==
LOC: ER 20:42
DX: K92.2 Gastrointestinal hemorrhage, unspecified (principal); E10.10 Type 1 diabetes mellitus with ketoacidosis without coma; E86.0 Dehydration; R10.84 Generalized abdominal pain; R00.0 Tachycardia, unspecified; R06.82 Tachypnea, not elsewhere classified; I10 Essential (primary) hypertension; Z87.19 Personal history of other diseases of the digestive system
CPT/HCPCS: 93005 ×2; 99291; 86900; 86901; 36415; 86850; 82962; 83690; 85025; 85027; 82272; 80048; 80053; 81001; 80307; 82803; 83605; 71010; 93010 ×2; S0119; J3010; J1170; J3480; S0164 ×2; J2405; J7030 ×2

== ENCOUNTER 2016-09-23 08:26 | Inpatient (IN) | payer OTHER ==
--- NOTE | 2016-09-23 08:58 | ER Document Report ---
ED Blood Sugar Problem - General Chief Complaint: High Blood Sugar Stated Complaint: BLOOD SUGAR ISSUES Time Seen by Provider: 09/23/16 08:58 Mode of Arrival: Ambulatory Information source: Patient Notes: Patient is a 36-year-old male, type II diabetic uncontrolled insulin-dependent who presents to the ER today for nausea, vomiting, elevated blood glucose of over 500 at home. Patient states that he has not had his insulin in 3 days because he did not get it refilled. Patient is on Lantus and NovoLog. He admits to abdominal and chest pain. He denies any fevers or chills. He has vomited at least 6 times since last night. TRAVEL OUTSIDE OF THE [place] IN LAST 30 DAYS: No - Related Data Allergies/Adverse Reactions: No Known Allergies Allergy (Verified 09/23/16 08:31) Home Medications: Current Home Medications Insulin Glargine,Hum.rec.anlog [Lantus Solostar] 34 unit SQ QHS 09/23/16 [ History] Insulin Lispro [Humalog Insulin 100 Unit/1 ml 3 ml Vial] 0 unit SUBCUT .SLD SCALE 09/23/16 [History] Multivits-Minerals/FA/Lycopene [One Daily Men's Health Tablet] 1 tab PO DAILY [History] Past Medical History - General Information source: Patient - Social History Smoking Status: Current Every Day Smoker Chew tobacco use (# tins/day): No Frequency of alcohol use: None Drug Abuse: None Family History: DM, Hyperlipidemia, Hypertension - Past Medical History Cardiac Medical History: Reports: Hx Hypercholesterolemia Denies: Hx Hypertension Pulmonary Medical History: Denies: Hx Tuberculosis Neurological Medical History: Denies: Hx Seizures Endocrine Medical History: Reports: Hx Diabetes Mellitus Type 1 - 4 years. Denies: Hx Diabetes Mellitus Type 2, Hx Graves' Disease, Hx Hyperthyroidism, Hx Hypothyroidism Renal/ Medical History: Denies: Hx Peritoneal Dialysis Psychiatric Medical History: Reports: Hx Depression Past Surgical History: Reports: Hx Orthopedic Surgery - back. Denies: Hx Appendectomy, Hx Bowel Surgery, Hx Cholecystectomy, Hx Coronary Artery Bypass Graft, Hx Gastric Bypass Surgery, Hx Herniorrhaphy, Hx Pacemaker, Hx Tonsillectomy - Immunizations Hx Diphtheria, Pertussis, Tetanus Vaccination: Yes Hx Pneumococcal Vaccination: 11/09/11 Review of Systems - Review of Systems Constitutional: No symptoms reported EENT: No symptoms reported Cardiovascular: See HPI Respiratory: No symptoms reported Gastrointestinal: See HPI Genitourinary: No symptoms reported Male Genitourinary: No symptoms reported Musculoskeletal: No symptoms reported Skin: No symptoms reported Hematologic/Lymphatic: No symptoms reported Neurological/Psychological: No symptoms reported Physical Exam - Vital signs Vitals: Temp Pulse Resp BP Pulse Ox 97.4 F 103 H 12 113/80 99 09/23/16 08:31 09/23/16 08:31 09/23/16 08:31 09/23/16 08:31 09/23/16 08:31 - Notes Notes: PHYSICAL EXAMINATION: GENERAL: Mildly ill-appearing, but d in no acute distress. HEAD: Atraumatic, normocephalic. EYES: Pupils equal round and reactive to light, extraocular movements intact, sclera anicteric, conjunctiva are normal. NECK: Normal range of motion, supple without lymphadenopathy LUNGS: CTAB and equal. No wheezes rales or rhonchi. HEART: Regular rate and rhythm without murmurs ABDOMEN: Soft, Mild diffuse tenderness. No guarding, no rebound BACK: no vertebral tenderness, normal ROM GI/: no CVA tenderness EXTREMITIES: Normal range of motion, no pitting edema. No cyanosis. NEUROLOGICAL: Cranial nerves grossly intact. Normal sensory/motor exams. PSYCH: Normal mood, normal affect. SKIN: Warm, Dry, normal turgor, no rashes or lesions noted Course - Re-evaluation Re-evalutation: 09/23/16 15:33 Patient has an elevated anion gap of 21 and an elevated osmolality of 316, glucose is 593 on arrival. Patient was given 3 L of IV fluids, nausea medicine , pain medicine and started on insulin in the emergency department. He was admitted to hospitalist, Dr. Ruvalcaba for DKA. Patient actually felt much better after nausea and pain medication and when I walked in the room he had eaten an entire meal of fried chicken before going up to his hospital room. 09/23/16 15:34 - Vital Signs Vital signs: Temp Pulse Resp BP Pulse Ox 97.4 F 73 16 118/80 100 09/23/16 08:31 09/23/16 14:07 09/23/16 14:07 09/23/16 14:07 09/23/16 14:07 - Laboratory Result Diagrams: 09/23/16 08:45 09/23/16 13:18 Laboratory results interpreted by me: 09/23/16 09/23/16 09/23/16 08:45 08:45 08:45 Hgb 11.8 L Hct 37.0 L MCH 25.9 L MCHC 31.9 L RDW 18.1 H VBG pH 7.28 L VBG HCO3 19.6 L Sodium 131.8 L Chloride 95 L Carbon Dioxide 16 L Anion Gap 21 H Glucose 593 H* POC Glucose Serum Osmolality Direct Bilirubin 0.5 H Alkaline Phosphatase 167 H Urine Glucose (UA) Urine Ketones Urine Blood Urine Ascorbic Acid 09/23/16 09/23/16 09/23/16 08:45 09:13 10:25 Hgb Hct MCH MCHC RDW VBG pH VBG HCO3 Sodium Chloride Carbon Dioxide Anion Gap Glucose POC Glucose 414 H* Serum Osmolality 316 H Direct Bilirubin Alkaline Phosphatase Urine Glucose (UA) >=500 H Urine Ketones 80 H Urine Blood SMALL H Urine Ascorbic Acid 20 H 09/23/16 11:31 Hgb Hct MCH MCHC RDW VBG pH VBG HCO3 Sodium Chloride Carbon Dioxide Anion Gap Glucose POC Glucose 313 H Serum Osmolality Direct Bilirubin Alkaline Phosphatase Urine Glucose (UA) Urine Ketones Urine Blood Urine Ascorbic Acid Discharge - Discharge Clinical Impression: Diabetic ketoacidosis Qualifiers: Diabetes mellitus type: type 2 Diabetes mellitus complication detail: without coma Qualified Code(s): E13.10 - Other specified diabetes mellitus with ketoacidosis without coma Condition: Stable Disposition: ADMITTED INPATIENT Admitting Provider: Hospitalist Unit Admitted: [facility]
[2016-09-23] MEDS ORDERED: NORMAL SALINE 1000 ML 1,000 ML IV ONE (08:59)
[2016-09-23 09:05] LABS: ABSOLUTE BASOPHILS # (AUTO) 0.1 10^3/uL (0.0-0.2); ABSOLUTE EOSINOPHILS # (AUTO) 0.2 10^3/uL (0.0-0.6); ABSOLUTE LYMPHOCYTES (AUTO) 1.2 10^3/uL (0.5-4.7); ABSOLUTE MONOCYTES (AUTO) 0.6 10^3/uL (0.1-1.4); ABSOLUTE NEUT (AUTO) 5.1 10^3/uL (1.7-8.2); EOSINOPHILS % (AUTO) 2.5 % (0-6); HEMOGLOBIN 11.8 g/dL (13.5-17.0); HGB HCT DIFFERENCE -1.6; LYMPHOCYTES % (AUTO) 16.5 % (13-45); MEAN CORPUSCULAR HEMOGLOBIN 25.9 pg (27.0-33.4); MEAN CORPUSCULAR HGB CONC 31.9 g/dL (32.0-36.0); MEAN CORPUSCULAR VOLUME 81 fl (80-97); MONOCYTES % (AUTO) 7.9 % (3-13); RED BLOOD COUNT 4.55 10^6/uL (4.35-5.55); RED CELL DISTRIBUTION WIDTH 18.1 % (11.5-14.0); SEGMENTED NEUTROPHILS % (AUTO) 72.1 % (42-78); WHITE BLOOD COUNT 7.1 10^3/uL (4.0-10.5)
[2016-09-23 09:13] LABS: VENOUS BLOOD HCO3 19.6 mmol/L (20-32); VENOUS BLOOD PCO2 43.2 mmHg (35-63); VENOUS BLOOD PH 7.28 (7.30-7.42)
[2016-09-23] MEDS ORDERED: MORPHINE SULFATE 10 MG/ML INJ IV ONE (09:17)
[2016-09-23] MEDS ORDERED: ONDANSETRON HCL INJ/PF 4 MG/2 ML SDV IV ONE (09:17)
[2016-09-23 09:29] LABS: ALANINE AMINOTRANSFERASE 32 U/L (21-72); ALBUMIN 4.2 g/dL (3.5-5.0); ALKALINE PHOSPHATASE 167 U/L (38-126); ASPARTATE AMINO TRANSFERASE 19 U/L (17-59); BILIRUBIN,DIRECT 0.5 mg/dL (0.0-0.4); BILIRUBIN,TOTAL 0.7 mg/dL (0.2-1.3); BLOOD UREA NITROGEN 16 mg/dL (7-20); CALCIUM 9.8 mg/dL (8.4-10.2); CHLORIDE 95 mmol/L (98-107); CREATININE RESULT 0.98 mg/dL (0.52-1.25); TOTAL PROTEIN 7.2 g/dL (6.3-8.2)
[2016-09-23 09:36] LABS: APPEARANCE,URINE CLEAR; BILIRUBIN,URINE NEGATIVE (NEGATIVE); GLUCOSE, URINE >=500 mg/dL (NEGATIVE); KETONES,URINE 80 mg/dL (NEGATIVE); LEUKOCYTE ESTERASE,URINE NEGATIVE (NEGATIVE); NITRITE,URINE NEGATIVE (NEGATIVE); PROTEIN,URINE NEGATIVE (NEGATIVE); URINE SPECIFIC GRAVITY 1.031; UROBILINOGEN,URINE NEGATIVE mg/dL (<2.0)
[2016-09-23 09:42] LABS: CARBON DIOXIDE 16 mmol/L (22-30); SODIUM 131.8 mmol/L (137-145)
[2016-09-23 09:44] LABS: ANION GAP 21 (5-19); GLUCOSE 593 mg/dL (75-110)
[2016-09-23] MEDS ORDERED: INSULIN REG, HUMAN 100 UNIT/ML 3 ML VIAL (PYX) IV ONE ×2 (10:00→10:20)
[2016-09-23 10:23] LABS: CREATINE KINASE MB 3.59 ng/mL (<4.55)
[2016-09-23 10:34] LABS: TROPONIN I < 0.012 ng/mL
[2016-09-23] MEDS ORDERED: NORMAL SALINE 1000 ML 3,000 ML IV ONE (11:12)
[2016-09-23] MEDS ORDERED: ONDANSETRON HCL INJ/PF 4 MG/2 ML SDV IV PRN (11:55)
[2016-09-23] MEDS ORDERED: ACETAMINOPHEN 325 MG TABLET PO PRN (11:55)
[2016-09-23] MEDS ORDERED: ZOLPIDEM TARTRATE 5 MG TABLET PO PRN (11:55)
[2016-09-23] MEDS ORDERED: NORMAL SALINE 100 ML with INSULIN REGULAR, HUMAN 100 UNIT IV PRN ×2 (12:10)
[2016-09-23] MEDS ORDERED: GLUCAGON,HUMAN RECOMB 1 MG INJ IM PRN ×2 (12:10→19:59)
[2016-09-23] MEDS ORDERED: DEXTROSE 50%-WATER 25 GM/50 ML DISP.SYRIN IV PRN ×2 (12:10)
[2016-09-23] MEDS ORDERED: DEXTROSE 40% GEL 15 GM TUBE PO PRN ×3 (12:10→19:59)
[2016-09-23] MEDS ORDERED: ENOXAPARIN SODIUM INJ 40 MG/0.4 ML DISP.SYRIN SUBCUT ONE (13:00)
[2016-09-23 13:43] LABS: ANION GAP 12 (5-19); BLOOD UREA NITROGEN 13 mg/dL (7-20); CARBON DIOXIDE 18 mmol/L (22-30); CHLORIDE 106 mmol/L (98-107); CREATININE RESULT 0.69 mg/dL (0.52-1.25); GLUCOSE 227 mg/dL (75-110); SODIUM 135.7 mmol/L (137-145)
--- NOTE | 2016-09-23 13:46 | EKG REPORT ---
SEVERITY:- NORMAL ECG - SINUS RHYTHM : Confirmed by: Juan Pablo Holm MD 23-Sep-2016 13:45:30
--- NOTE | 2016-09-23 13:58 | RADIOLOGY REPORT (SQ) ---
EXAM DESCRIPTION: CHEST PA/LAT COMPLETED DATE/TIME: 09/23/2016 1:46 pm REASON FOR STUDY: RUL wheezing, dka COMPARISON: Chest films 04/17/2016, 04/13/2016, 03/18/2016, 12/15/2015 EXAM PARAMETERS: NUMBER OF VIEWS: two views TECHNIQUE: Digital Frontal and Lateral radiographic views of the chest acquired. RADIATION DOSE: NA LIMITATIONS: none FINDINGS: LUNGS AND PLEURA: No opacities, masses or pneumothorax. No pleural effusion. MEDIASTINUM AND HILAR STRUCTURES: No masses or contour abnormalities. HEART AND VASCULAR STRUCTURES: Heart normal size. No evidence for failure. BONES: No acute findings. HARDWARE: None in the chest. OTHER: No other significant finding. IMPRESSION: NO SIGNIFICANT RADIOGRAPHIC FINDING IN THE CHEST. TECHNICAL DOCUMENTATION: JOB ID: [id number] [employer]- All Rights Reserved
[2016-09-23 14:13] LABS: POTASSIUM 3.7 mmol/L (3.6-5.0)
[2016-09-23] MEDS ORDERED: POTASSI CL 20 MEQ/D5-1/2NS 1L 1,000 ML IV PRN (15:03)
[2016-09-23] MEDS ORDERED: ALBUTEROL SULFATE HFA (90 MCG/PUFF) 8 GM MDI (1 MDI/ER DISP) IH PRN (15:06)
[2016-09-23] MEDS ORDERED: NICOTINE 7 MG/24 HR PATCH.TD24 TD PRN (15:09)
[2016-09-23] MEDS ORDERED: ALBUTEROL SULFATE HFA (90 MCG/PUFF) 200 PUFF/8.5 GM MDI IH PRN (15:10)
[2016-09-23] MEDS: NYSTATIN 500000 UNIT/5 ML UDCUP PO SCH ×3 (15:22→21:36)
[2016-09-23] MEDS ORDERED: INSULIN GLARGINE,HUM.REC.ANLOG 1,000 UNIT/10 ML UNIT SUBCUT ONE (15:30)
[2016-09-23 16:06] LABS: ANION GAP 10 (5-19); BLOOD UREA NITROGEN 14 mg/dL (7-20); CALCIUM 8.1 mg/dL (8.4-10.2); CARBON DIOXIDE 19 mmol/L (22-30); CHLORIDE 108 mmol/L (98-107); CREATININE RESULT 0.65 mg/dL (0.52-1.25); GLUCOSE 113 mg/dL (75-110); POTASSIUM 3.4 mmol/L (3.6-5.0); SODIUM 136.5 mmol/L (137-145)
[2016-09-23] MEDS: LANSOPRAZOLE 15 MG TAB.RAP.DR PO SCH (16:48)
--- NOTE | 2016-09-23 18:18 | PDOC H&P ---
History of Present Illness Admission Date/PCP: 09/23/16 11:55 [facility] History of Present Illness: CHESTER MCKEON is a 36 year old male with IDDM who presents to the ER with nausea, vomiting, and abdominal pain. Patient reports being out of his Lantus for the last three days. Patient is found to be in mild DKA. Reports antecedant URI and occasional cough. Denied fevers, chills, chest pain, rash. Past Medical History Cardiac Medical History: Reports: Hyperlipidema Denies: Hypertension Pulmonary Medical History: Denies: Tuberculosis Neurological Medical History: Denies: Seizures Endocrine Medical History: Reports: Diabetes Mellitus Type 1 - 4 years Denies: Diabetes Mellitus Type 2, Hyperthyroidism, Hypothyroidism Psychiatric Medical History: Reports: Depression Past Surgical History Past Surgical History: Reports: Orthopedic Surgery - back Denies: Appendectomy, Cholecystectomy, Coronary Artery Bypass Graft, Gastric Bypass Surgery, Herniorrhaphy, Pacemaker, Tonsillectomy Social History Smoking Status: Current Every Day Smoker Cigarettes Packs Per Day: 1 Number of Years Smokin Frequency of Alcohol Use: None Hx Recreational Drug Use: No Drugs: Marijuana Hx Prescription Drug Abuse: No - Advance Directive Resuscitation Status: Full Code Surrogate healthcare decision maker:: brothervarun Family History Family History: DM, Hyperlipidemia, Hypertension Parental Family History Reviewed: Yes Children Family History Reviewed: Yes Sibling(s) Family History Reviewed.: Yes Medication/Allergy Home Medications: Insulin Glargine,Hum.rec.anlog [Lantus Solostar] 34 unit SQ QHS 09/23/16 Insulin Lispro [Humalog Insulin 100 Unit/1 ml 3 ml Vial] 0 unit SUBCUT .SLD SCALE 09/23/16 Multivits-Minerals/FA/Lycopene [One Daily Men's Health Tablet] 1 tab PO DAILY Allergies/Adverse Reactions: No Known Allergies Allergy (Verified 09/23/16 08:31) Review of Systems Constitutional: ABSENT: chills, fever(s), headache(s), weight gain, weight loss Eyes: ABSENT: visual disturbances Ears: ABSENT: hearing changes Cardiovascular: ABSENT: chest pain, dyspnea on exertion, edema, orthropnea, palpitations Respiratory: ABSENT: cough, dyspnea, hemoptysis, sputum Gastrointestinal: PRESENT: abdominal pain, nausea, vomiting. ABSENT: constipation, diarrhea, hematemesis, hematochezia, melena Genitourinary: ABSENT: dysuria, hematuria Musculoskeletal: ABSENT: joint swelling Integumentary: ABSENT: rash, wounds Neurological: ABSENT: abnormal gait, abnormal speech, confusion, dizziness, focal weakness, syncope Psychiatric: ABSENT: anxiety, depression, homidical ideation, suicidal ideation Endocrine: ABSENT: cold intolerance, heat intolerance, polydipsia, polyuria Hematologic/Lymphatic: ABSENT: easy bleeding, easy bruising Physical Exam Vital Signs: Temp Pulse Resp BP Pulse Ox 97.4 F 73 16 118/80 100 09/23/16 08:31 09/23/16 14:07 09/23/16 14:07 09/23/16 14:07 09/23/16 14:07 Intake & Output 09/22/16 09/23/16 09/24/16 06:59 06:59 06:59 Weight 68.2 kg General appearance: PRESENT: mild distress, well-developed, well-nourished Head exam: PRESENT: atraumatic, normocephalic Eye exam: PRESENT: conjunctiva pink, EOMI, PERRLA. ABSENT: scleral icterus Ear exam: PRESENT: normal external ear exam Mouth exam: PRESENT: dry mucosa, tongue midline Neck exam: PRESENT: lymphadenopathy. ABSENT: JVD, thyromegaly, tracheal deviation Respiratory exam: PRESENT: clear to auscultation alfonso. ABSENT: rales, rhonchi, wheezes Cardiovascular exam: PRESENT: RRR, +S1, +S2. ABSENT: diastolic murmur, gallop, rubs, systolic murmur Pulses: PRESENT: normal dorsalis pedis pul Vascular exam: PRESENT: normal capillary refill GI/Abdominal exam: PRESENT: normal bowel sounds, soft. ABSENT: distended, guarding, mass, organolmegaly, rebound, tenderness Rectal exam: PRESENT: deferred Extremities exam: PRESENT: full ROM. ABSENT: calf tenderness, clubbing, pedal edema Neurological exam: PRESENT: alert, awake, oriented to person, oriented to place , oriented to time, oriented to situation, CN II-XII grossly intact. ABSENT: motor sensory deficit Psychiatric exam: PRESENT: appropriate affect, normal mood. ABSENT: homicidal ideation, suicidal ideation Skin exam: PRESENT: dry, intact, warm. ABSENT: cyanosis, rash Results Laboratory Results: 09/23/16 09/23/1617 08:45 08:45 08:45 Hgb 11.8 L Plt Count 238 VBG pH 7.28 L Sodium 131.8 L Potassium 5.0 Chloride 95 L Carbon Dioxide 16 L Anion Gap 21 H BUN 16 Creatinine 0.98 Glucose 593 H* Direct Bilirubin 0.5 H Alkaline Phosphatase 167 H Troponin I Total Protein 7.2 Albumin 4.2 Lipase Ur Specific [place] Urine Ketones Urine WBC (Auto) 09/23/16 09/23/16 09/23/16 08:45 08:45 09:13 Hgb Plt Count VBG pH Sodium Potassium Chloride Carbon Dioxide Anion Gap BUN Creatinine Glucose Direct Bilirubin Alkaline Phosphatase Troponin I < 0.012 Total Protein Albumin Lipase 214.9 Ur Specific [place] 1.031 Urine Ketones 80 H Urine WBC (Auto) 1 Impressions: Chest X-Ray 09/23/16 11:59 IMPRESSION: NO SIGNIFICANT RADIOGRAPHIC FINDING IN THE CHEST. Status: Imported from PACS Assessment & Plan - Diagnosis (1) Diabetic ketoacidosis Qualifiers: Diabetes mellitus type: type 1 Diabetes mellitus complication detail: without coma Qualified Code(s): E10.10 - Type 1 diabetes mellitus with ketoacidosis without coma Is this a current diagnosis for this admission?: Yes Plan: Place patient on insulin ggt and IVF. Patient reports being out of insulin. Patient instructed on [facility] [place] 70/30 if this occurs again. Check a CXR to rule out pna. (2) Tobacco abuse Is this a current diagnosis for this admission?: Yes Plan: Advised to stop. Nicotine replacement - Time Time Spent: 50 to 70 Minutes Medications reviewed and adjusted accordingly: Yes Anticipated discharge: Home Within: within 48 hours - Inpatient Certification Based on my medical assessment, after consideration of the patient's comorbidities, presenting symptoms, or acuity I expect that the services needed warrant INPATIENT care.: Yes I certify that my determination is in accordance with my understanding of Medicare's requirements for reasonable and necessary INPATIENT services [42 CFR 412.3e].: Yes Medical Necessity: Need For IV Fluids, Need For Continuous Telemetry Monitoring Post Hospital Care: D/C Security Specialist Documentation
[2016-09-23] MEDS ORDERED: POTASSIUM CHLORIDE 10 MEQ TABLET.SA PO ONE (18:45)
[2016-09-23] MEDS ORDERED: DEXTROSE 50%-WATER SYRINGE 12.5 GM/25 ML DOSE IV PRN (19:59)
[2016-09-23] MEDS ORDERED: DEXTROSE 50%-WATER SYRINGE 25 GM/50 ML DOSE IV PRN (19:59)
[2016-09-23] MEDS ORDERED: DEXTROSE 40% GEL 15 GM TUBE X 2 PO PRN (19:59)
[2016-09-23 21:19] LABS: ANION GAP 11 (5-19); BLOOD UREA NITROGEN 13 mg/dL (7-20); CALCIUM 8.6 mg/dL (8.4-10.2); CARBON DIOXIDE 20 mmol/L (22-30); CHLORIDE 107 mmol/L (98-107); GLUCOSE 118 mg/dL (75-110); POTASSIUM 3.9 mmol/L (3.6-5.0); SODIUM 137.5 mmol/L (137-145)
[2016-09-23] MEDS ORDERED: GABAPENTIN 300 MG CAPSULE PO SCH (22:00)
[2016-09-24] MEDS: NORMAL SALINE 1000 ML 1,000 ML IV PRN ×2 (00:34→05:53)
[2016-09-24 05:19] LABS: ABSOLUTE BASOPHILS # (AUTO) 0.1 10^3/uL (0.0-0.2); ABSOLUTE EOSINOPHILS # (AUTO) 0.2 10^3/uL (0.0-0.6); ABSOLUTE LYMPHOCYTES (AUTO) 1.6 10^3/uL (0.5-4.7); ABSOLUTE MONOCYTES (AUTO) 0.6 10^3/uL (0.1-1.4); ABSOLUTE NEUT (AUTO) 4.9 10^3/uL (1.7-8.2); BASOPHILS % (AUTO) 0.7 % (0-2); EOSINOPHILS % (AUTO) 2.7 % (0-6); HEMATOCRIT 31.1 % (37.9-51.0); HEMOGLOBIN 10.2 g/dL (13.5-17.0); HGB HCT DIFFERENCE -0.5; LYMPHOCYTES % (AUTO) 21.4 % (13-45); MEAN CORPUSCULAR HEMOGLOBIN 25.8 pg (27.0-33.4); MEAN CORPUSCULAR HGB CONC 32.8 g/dL (32.0-36.0); MEAN CORPUSCULAR VOLUME 79 fl (80-97); MONOCYTES % (AUTO) 8.2 % (3-13); RED BLOOD COUNT 3.96 10^6/uL (4.35-5.55); RED CELL DISTRIBUTION WIDTH 18.5 % (11.5-14.0); WHITE BLOOD COUNT 7.3 10^3/uL (4.0-10.5)
[2016-09-24 05:41] LABS: ANION GAP 8 (5-19); BLOOD UREA NITROGEN 12 mg/dL (7-20); CALCIUM 8.5 mg/dL (8.4-10.2); CARBON DIOXIDE 17 mmol/L (22-30); CHLORIDE 112 mmol/L (98-107); CREATININE RESULT 0.71 mg/dL (0.52-1.25); GLUCOSE 239 mg/dL (75-110); POTASSIUM 4.3 mmol/L (3.6-5.0); SODIUM 137.4 mmol/L (137-145)
[2016-09-24] MEDS: LANSOPRAZOLE 15 MG TAB.RAP.DR PO SCH (05:53)
[2016-09-24] MEDS ORDERED: NORMAL SALINE 1000 ML 2,000 ML IV ONE (07:55)
[2016-09-24] MEDS ORDERED: INSULIN GLARGINE,HUM.REC.ANLOG 1,000 UNIT/10 ML UNIT SUBCUT ONE (08:30)
[2016-09-24] MEDS: INSULIN LISPRO 100 UNIT/ML 3 ML VIAL SUBCUT PRN ×2 (08:56→12:31)
[2016-09-24] MEDS: NYSTATIN 500000 UNIT/5 ML UDCUP PO SCH (08:56)
[2016-09-24] MEDS ORDERED: ENOXAPARIN SODIUM INJ 40 MG/0.4 ML DISP.SYRIN SUBCUT SCH (10:00)
[2016-09-24 12:22] VITALS: BP 118/80
--- NOTE | 2016-09-24 15:59 | PDOC DISCHARGE SUMMARY ---
General - Admit/Disc Date/PCP Admission Date/Primary Care Provider: 09/23/16 11:55 Discharge Date: 09/24/16 - Discharge Diagnosis (1) Diabetic ketoacidosis Is this a current diagnosis for this admission?: Yes (2) Tobacco abuse Is this a current diagnosis for this admission?: Yes - Additional Information Resuscitation Status: Full Code Discharge Diet: Diabetic Discharge Activity: Activity As Tolerated Home Medications: Multivits-Minerals/FA/Lycopene [One Daily Men's Health Tablet] 1 tab PO DAILY Alcohol Antiseptic Pads [Alcohol Pads] 1 pad TP DAILY PRN #1 pkg 09/24/16 Gabapentin [Neurontin 300 mg Capsule] 300 mg PO QHS #30 capsule 09/24/16 Insulin NPH Hum/Reg Insulin Hm [Humulin 70-30 Vial] 35 unit SQ BID #1 bottle Insulin Regular, Human [Humulin R (Reg) Insulin 100 unit/mL] 5 unit SUBCUT ACLUNCH #10 ml 09/24/16 Syringe & Needle,Insulin,1 ml [Insulin Syringe] 1 each MC ASDIR PRN #1 pkg 09/24 History of Present Illness History of Present Illness: CHESTER MCKEON is a 36 year old male with IDDM who presents to the ER with nausea, vomiting, and abdominal pain. Patient reports being out of his Lantus for the last three days. Patient is found to be in mild DKA. Reports antecedant URI and occasional cough. Denied fevers, chills, chest pain, rash. Hospital Course Hospital Course: Patient easily trasitioned off of insulin ggt onto lantus. Gap closed and acidosis improved. Patient started back on 70/30 insulin. DC planning consulted for medication assistance. Patient also had improvement of leg pain with gabapentin. Patient doing well requesting discharge. Physical Exam Vital Signs: Temp Pulse Resp BP Pulse Ox 98.4 F 89 19 118/80 99 09/24/16 12:20 09/24/16 12:20 09/24/16 12:20 09/24/16 12:20 09/24/16 12:20 Intake & Output 09/23/16 09/24/16 09/25/16 06:59 06:59 06:59 Intake Total 4387 710 Output Total 300 Balance 4087 710 Weight 68.5 kg Exam: General: Awake alert and oriented x3, no acute respiratory distress HEENT: AT/NC, PERRL, EOMI, oropharynx is moist, pink, no scleral icterus, no conjunctival injection Neck: No JVD, trachea midline Chest: Clear to auscultation bilaterally, no wheezes rhonchi or rales CV: Regular rate and rhythm, normal S1 and S2, no murmur, rub, or gallop Abdomen: Soft, nontender to palpation, nondistended, active bowel sounds; no rebound, rigidity, or guarding Extremities: No cyanosis, clubbing or edema Neuro: Cranial nerves II through XII are grossly intact without focal deficits; awake alert and oriented x3 Psych: Normal mood and affect Results Laboratory Results: 09/24/16 04:40 09/24/16 04:40 09/23/16 09/23/16 09/24/16 15:40 20:30 04:40 WBC RBC Hgb Hct MCV MCH MCHC RDW Plt Count Seg Neutrophils % Lymphocytes % Monocytes % Eosinophils % Basophils % Absolute Neutrophils Absolute Lymphocytes Absolute Monocytes Absolute Eosinophils Absolute Basophils Sodium 136.5 L 137.5 137.4 Potassium 3.4 L 3.9 4.3 Chloride 108 H 107 112 H Carbon Dioxide 19 L 20 L 17 L Anion Gap 10 11 8 BUN 14 13 12 Creatinine 0.65 0.80 0.71 Est GFR ( Amer) > 60 > 60 > 60 Est GFR (Non-Af Amer) > 60 > 60 > 60 Glucose 113 H 118 H 239 H Calcium 8.1 L 8.6 8.5 Magnesium 09/24/16 09/24/16 04:40 04:40 WBC 7.3 RBC 3.96 L Hgb 10.2 L Hct 31.1 L MCV 79 L MCH 25.8 L MCHC 32.8 RDW 18.5 H Plt Count 196 Seg Neutrophils % 67.0 Lymphocytes % 21.4 Monocytes % 8.2 Eosinophils % 2.7 Basophils % 0.7 Absolute Neutrophils 4.9 Absolute Lymphocytes 1.6 Absolute Monocytes 0.6 Absolute Eosinophils 0.2 Absolute Basophils 0.1 Sodium Potassium Chloride Carbon Dioxide Anion Gap BUN Creatinine Est GFR ( Amer) Est GFR (Non-Af Amer) Glucose Calcium Magnesium 1.7 Impressions: Chest X-Ray 09/23/16 11:59 IMPRESSION: NO SIGNIFICANT RADIOGRAPHIC FINDING IN THE CHEST. Qualifiers PATEINT BEING DISCHARGED WITH ANY OF THE FOLLOWING DIAGNOSIS?: No Plan Time Spent: Less than 30 Minutes
== END 2016-09-24 12:43 | disposition home or self-care (01) | DRG 639 ==
LOC: ER 08:26 → UNDOADMIN 11:52 → EH 11:52 → 3W 13:50
PROVIDERS: ADMIT Family Medicine; ATTEND Family Medicine
DX: E10.10 Type 1 diabetes mellitus with ketoacidosis without coma (principal); F17.210 Nicotine dependence, cigarettes, uncomplicated; E78.5 Hyperlipidemia, unspecified; F32.9 Major depressive disorder, single episode, unspecified; Z79.4 Long term (current) use of insulin; Z83.3 Family history of diabetes mellitus; Z82.49 Family history of ischemic heart disease and other diseases of the circulatory system
CPT/HCPCS: 36415; 71020; 80048; 80053; 81001; 82550; 82553; 82803; 82962; 83036; 83690; 83735; 83930; 84484; 85025; 93005; 93010; 96374; 96375; 99285; J1650; J1815; J2270; J2405; J3480; J3490; J7030

== ENCOUNTER 2016-10-18 08:48 | Inpatient (IN) | payer OTHER ==
[2016-10-18] MEDS ORDERED: NORMAL SALINE 1000 ML 1,000 ML IV PRN ×2 (08:55→14:26)
[2016-10-18 09:35] LABS: VENOUS BLOOD BASE EXCESS -11.6 mmol/L; VENOUS BLOOD HCO3 15.6 mmol/L (20-32); VENOUS BLOOD PCO2 39.6 mmHg (35-63); VENOUS BLOOD PH 7.21 (7.30-7.42)
[2016-10-18 09:37] LABS: APPEARANCE,URINE CLEAR; BILIRUBIN,URINE NEGATIVE (NEGATIVE); GLUCOSE, URINE >=500 mg/dL (NEGATIVE); KETONES,URINE TRACE mg/dL (NEGATIVE); LEUKOCYTE ESTERASE,URINE NEGATIVE (NEGATIVE); NITRITE,URINE NEGATIVE (NEGATIVE); PROTEIN,URINE NEGATIVE (NEGATIVE); URINE SPECIFIC GRAVITY 1.026; UROBILINOGEN,URINE NEGATIVE mg/dL (<2.0)
[2016-10-18] MEDS ORDERED: ONDANSETRON HCL INJ/PF 4 MG/2 ML SDV IV ONE ×2 (09:43→11:43)
[2016-10-18 09:56] LABS: ALANINE AMINOTRANSFERASE 34 U/L (21-72); ALBUMIN 3.8 g/dL (3.5-5.0); ALKALINE PHOSPHATASE 137 U/L (38-126); ANION GAP 16 (5-19); ASPARTATE AMINO TRANSFERASE 18 U/L (17-59); BILIRUBIN,DIRECT 0.4 mg/dL (0.0-0.4); BILIRUBIN,TOTAL 0.5 mg/dL (0.2-1.3); BLOOD UREA NITROGEN 17 mg/dL (7-20); CALCIUM 9.1 mg/dL (8.4-10.2); CARBON DIOXIDE 13 mmol/L (22-30); CHLORIDE 94 mmol/L (98-107); CREATININE RESULT 0.87 mg/dL (0.52-1.25); POTASSIUM 4.8 mmol/L (3.6-5.0); SODIUM 122.7 mmol/L (137-145); TOTAL PROTEIN 6.5 g/dL (6.3-8.2)
[2016-10-18 10:02] LABS: ABSOLUTE EOSINOPHILS # (AUTO) 0.2 10^3/uL (0.0-0.6); ABSOLUTE MONOCYTES (AUTO) 0.4 10^3/uL (0.1-1.4); ABSOLUTE NEUT (AUTO) 3.9 10^3/uL (1.7-8.2); BASOPHILS % (AUTO) 0.3 % (0-2); EOSINOPHILS % (AUTO) 3.1 % (0-6); HEMATOCRIT 40.1 % (37.9-51.0); HEMOGLOBIN 11.1 g/dL (13.5-17.0); HGB HCT DIFFERENCE -6.8; LYMPHOCYTES % (AUTO) 18.5 % (13-45); MEAN CORPUSCULAR HEMOGLOBIN 26.2 pg (27.0-33.4); MEAN CORPUSCULAR HGB CONC 27.6 g/dL (32.0-36.0); MONOCYTES % (AUTO) 7.7 % (3-13); RED BLOOD COUNT 4.23 10^6/uL (4.35-5.55); RED CELL DISTRIBUTION WIDTH 19.9 % (11.5-14.0); SEGMENTED NEUTROPHILS % (AUTO) 70.4 % (42-78); WHITE BLOOD COUNT 5.5 10^3/uL (4.0-10.5)
[2016-10-18 10:04] LABS: MEAN CORPUSCULAR VOLUME 95 fl (80-97)
[2016-10-18 10:22] LABS: GLUCOSE 1310 mg/dL (75-110)
[2016-10-18] MEDS ORDERED: DEXTROSE 40% GEL 15 GM TUBE PO PRN ×4 (10:54→14:24)
[2016-10-18] MEDS ORDERED: GLUCAGON,HUMAN RECOMB 1 MG INJ IM PRN ×2 (10:54→14:24)
[2016-10-18] MEDS ORDERED: DEXTROSE 50%-WATER 25 GM/50 ML DISP.SYRIN IV PRN ×4 (10:54→14:24)
[2016-10-18] MEDS ORDERED: NORMAL SALINE 100 ML with INSULIN REGULAR, HUMAN 100 UNIT IV PRN ×4 (10:54→14:30)
--- NOTE | 2016-10-18 10:54 | ER Document Report ---
ED General - General Chief Complaint: High Blood Sugar Stated Complaint: SUGAR CONCERNS Time Seen by Provider: 10/18/16 08:54 TRAVEL OUTSIDE OF THE [place] IN LAST 30 DAYS: No - HPI Patient complains to provider of: Elevated blood sugars Notes: Patient coming in for evaluation of elevated blood sugars. Patient is type I diabetic on Lantus. Patient states takes 30 units in the morning 10 units at night has ran out in the last 24 hours. Patient states abdominal pain with nausea and vomiting fevers or chills patient denies any chest pain. Upon my evaluation vital signs are stable patient looks to be in no obvious distress. - Related Data Allergies/Adverse Reactions: No Known Allergies Allergy (Verified 09/23/16 08:31) Home Medications: Current Home Medications Gabapentin [Neurontin 300 mg Capsule] 300 mg PO QHS 10/18/16 [History] Insulin Aspart [Novolog Insulin 100 Unit/1 ml 10 ml] 4 unit SUBCUT AC 10/18/16 [ History] Insulin Glargine,Hum.rec.anlog [Lantus] 30 unit SQ QAM 10/18/16 [History] Insulin Glargine,Hum.rec.anlog [Lantus] 30 unit SQ QPM 10/18/16 [History] Multivitamin [One-A-Day Essential] 1 each PO DAILY 10/18/16 [History] Past Medical History - Social History Smoking Status: Unknown if Ever Smoked Family History: DM, Hyperlipidemia, Hypertension - Past Medical History Cardiac Medical History: Reports: Hx Hypercholesterolemia Denies: Hx Hypertension Pulmonary Medical History: Denies: Hx Tuberculosis Neurological Medical History: Denies: Hx Seizures Endocrine Medical History: Reports: Hx Diabetes Mellitus Type 1 - 4 years. Denies: Hx Diabetes Mellitus Type 2, Hx Graves' Disease, Hx Hyperthyroidism, Hx Hypothyroidism Renal/ Medical History: Denies: Hx Peritoneal Dialysis Psychiatric Medical History: Reports: Hx Depression Past Surgical History: Reports: Hx Orthopedic Surgery - back. Denies: Hx Appendectomy, Hx Bowel Surgery, Hx Cholecystectomy, Hx Coronary Artery Bypass Graft, Hx Gastric Bypass Surgery, Hx Herniorrhaphy, Hx Pacemaker, Hx Tonsillectomy - Immunizations Hx Diphtheria, Pertussis, Tetanus Vaccination: Yes Hx Pneumococcal Vaccination: 11/09/11 Review of Systems - Review of Systems Constitutional: Other - Elevated blood sugars EENT: No symptoms reported Cardiovascular: No symptoms reported Respiratory: No symptoms reported Gastrointestinal: Abdominal pain, Nausea Genitourinary: No symptoms reported Male Genitourinary: No symptoms reported Musculoskeletal: No symptoms reported Skin: No symptoms reported Hematologic/Lymphatic: No symptoms reported Neurological/Psychological: No symptoms reported -: Yes All other systems reviewed and negative Physical Exam - Vital signs Vitals: Pulse Ox 100 10/18/16 09:01 Interpretation: Normal - General General appearance: Appears well, Alert - HEENT Head: Normocephalic, Atraumatic Eyes: Normal Pupils: PERRL - Respiratory Respiratory status: No respiratory distress Chest status: Nontender Breath sounds: Normal Chest palpation: Normal - Cardiovascular Rhythm: Regular Heart sounds: Normal auscultation Murmur: No - Abdominal Inspection: Normal Distension: No distension Bowel sounds: Normal Tenderness: Nontender Organomegaly: No organomegaly - Back Back: Normal, Nontender - Extremities General upper extremity: Normal inspection, Nontender, Normal color, Normal ROM , Normal temperature General lower extremity: Normal inspection, Nontender, Normal color, Normal ROM , Normal temperature, Normal weight bearing. No: Hailey's sign - Neurological Neuro grossly intact: Yes Cognition: Normal Orientation: AAOx4 Unruly Coma Scale Eye Opening: Spontaneous [place] Coma Scale Verbal: Oriented Unruly Coma Scale Motor: Obeys Commands [place] Coma Scale Total: 15 Speech: Normal Motor strength normal: LUE, RUE, LLE, RLE Sensory: Normal - Psychological Associated symptoms: Normal affect, Normal mood - Skin Skin Temperature: Warm Skin Moisture: Dry Skin Color: Normal Course - Re-evaluation Re-evalutation: 10/18/16 13:46 Patient's lab work is consistent with a DKA along with HHS as he does have a hyperosmolar state. Patient was given IV fluids placed on insulin drip discussed with the hospitalist staff will admit the patient for further evaluation - Vital Signs Vital signs: Temp Pulse Resp BP Pulse Ox 97.7 F 84 16 120/86 H 100 10/18/16 13:01 10/18/16 13:01 10/18/16 13:01 10/18/16 13:01 10/18/16 13:01 - Laboratory Result Diagrams: 10/18/16 09:08 10/18/16 09:08 Laboratory results interpreted by me: 10/18/16 10/18/16 10/18/16 09:08 09:08 09:08 RBC 4.23 L Hgb 11.1 L MCH 26.2 L MCHC 27.6 L RDW 19.9 H VBG pH 7.21 L VBG HCO3 15.6 L Sodium 122.7 L Chloride 94 L Carbon Dioxide 13 L Glucose 1310 H* Serum Osmolality Alkaline Phosphatase 137 H Lipase 534.0 H Urine Glucose (UA) Urine Ketones 10/18/16 10/18/16 09:08 09:08 RBC Hgb MCH MCHC RDW VBG pH VBG HCO3 Sodium Chloride Carbon Dioxide Glucose Serum Osmolality 333 H Alkaline Phosphatase Lipase Urine Glucose (UA) >=500 H Urine Ketones TRACE H Critical Care Note - Critical Care Note Total time excluding time spent on procedures (mins): 35 Comments: Multiple evaluations for patient with DKA. Discharge - Discharge Clinical Impression: Noncompliance, Dehydration Diabetic ketoacidosis Qualifiers: Diabetes mellitus type: type 1 Diabetes mellitus complication detail: without coma Qualified Code(s): E10.10 - Type 1 diabetes mellitus with ketoacidosis without coma DM hyperosmolarity type I Qualifiers: Diabetes mellitus complication detail: without coma Qualified Code(s): E10.69 - Type 1 diabetes mellitus with other specified complication Condition: Good Disposition: ADMITTED INPATIENT Admitting Provider: Justin Estrada Unit Admitted: [facility]
[2016-10-18] MEDS ORDERED: NORMAL SALINE 1000 ML 1,000 ML IV ONE (10:57)
[2016-10-18] MEDS ORDERED: INSULIN REG, HUMAN 100 UNIT/ML 3 ML VIAL (PYX) ONE ×2 (11:34→14:46)
[2016-10-18] MEDS ORDERED: FAMOTIDINE INJ/PF 20 MG/2 ML SDV IV ONE (11:43)
[2016-10-18 12:20] LABS: URINE BARBITURATES SCREEN NEGATIVE; URINE METHADONE SCREEN NEGATIVE; URINE OPIATES LOW NEGATIVE; URINE PHENCYCLIDINE SCREEN NEGATIVE
[2016-10-18] MEDS ORDERED: DEXTROSE 5%-NORMAL SALINE 1,000 ML IV PRN ×2 (14:26→19:23)
[2016-10-18] MEDS ORDERED: ACETAMINOPHEN 325 MG TABLET PO PRN (14:31)
[2016-10-18] MEDS ORDERED: MORPHINE SULFATE 10 MG/ML INJ IV PRN ×2 (14:45→20:02)
[2016-10-18 15:24] LABS: ANION GAP 11 (5-19); BLOOD UREA NITROGEN 16 mg/dL (7-20); CALCIUM 9.3 mg/dL (8.4-10.2); CARBON DIOXIDE 18 mmol/L (22-30); CHLORIDE 104 mmol/L (98-107); CREATININE RESULT 0.85 mg/dL (0.52-1.25); POTASSIUM 3.9 mmol/L (3.6-5.0); SODIUM 132.9 mmol/L (137-145)
[2016-10-18] MEDS: ONDANSETRON HCL INJ/PF 4 MG/2 ML SDV IV PRN ×2 (15:25→20:43)
[2016-10-18] MEDS ORDERED: ENOXAPARIN SODIUM INJ 40 MG/0.4 ML DISP.SYRIN SUBCUT ONE (15:30)
[2016-10-18 15:33] LABS: GLUCOSE 581 mg/dL (75-110)
--- NOTE | 2016-10-18 15:39 | PDOC H&P ---
History of Present Illness Admission Date/PCP: 10/18/16 11:46 [facility] Patient complains of: Adbominal pain, nausea and vomiting History of Present Illness: CHESTER MCKEON is a 36 year old male, w/ IDDM has been only on lantus and ran out of short acting insulin for a while, developed abdominal pain, nausea and vomiting for the past few days. He has a cough but no pleurisy or sputum production. He has diarrhea as well w/ chills but no associated fever. No rash, penile discharge, dysuria, urgency frequency. No chest congestion, sorethroat nor sinus congestion. Blood sugars were high, went to ER found to have glucose of 1300. IVF was started and 3units/hr of insulin given. Patient was refered for admission, His PH was low as well as the HCO3 but is Na was low and AGAP was normal. Past Medical History Cardiac Medical History: Reports: Hyperlipidema Denies: Hypertension Pulmonary Medical History: Denies: Tuberculosis Neurological Medical History: Denies: Seizures Endocrine Medical History: Reports: Diabetes Mellitus Type 1 - 4 years Denies: Diabetes Mellitus Type 2, Hyperthyroidism, Hypothyroidism Psychiatric Medical History: Reports: Depression Past Surgical History Past Surgical History: Reports: Orthopedic Surgery - back Denies: Appendectomy, Cholecystectomy, Coronary Artery Bypass Graft, Gastric Bypass Surgery, Herniorrhaphy, Pacemaker, Tonsillectomy Social History Information Source: Patient Smoking Status: Former Smoker Cigarettes Packs Per Day: 5 Frequency of Alcohol Use: None Hx Recreational Drug Use: No Drugs: Marijuana Hx Prescription Drug Abuse: No - Advance Directive Resuscitation Status: Full Code Family History Family History: DM, Hyperlipidemia, Hypertension Parental Family History Reviewed: Yes Children Family History Reviewed: Yes Sibling(s) Family History Reviewed.: Yes Medication/Allergy Home Medications: Gabapentin [Neurontin 300 mg Capsule] 300 mg PO QHS 10/18/16 Insulin Aspart [Novolog Insulin 100 Unit/1 ml 10 ml] 4 unit SUBCUT AC 10/18/16 Insulin Glargine,Hum.rec.anlog [Lantus] 30 unit SQ QAM 10/18/16 Insulin Glargine,Hum.rec.anlog [Lantus] 30 unit SQ QPM 10/18/16 Multivitamin [One-A-Day Essential] 1 each PO DAILY 10/18/16 Allergies/Adverse Reactions: No Known Allergies Allergy (Verified 09/23/16 08:31) Review of Systems Constitutional: PRESENT: weakness - generalized. ABSENT: chills, fever(s), headache(s), night sweats, weight gain, weight loss Eyes: PRESENT: visual disturbances - mild blurring of vision Ears: ABSENT: hearing changes Nose, Mouth, and Throat: ABSENT: headache(s), mouth pain, sore throat Cardiovascular: ABSENT: chest pain, dyspnea on exertion, edema, orthropnea, palpitations Respiratory: PRESENT: cough. ABSENT: dyspnea, hemoptysis, sputum Gastrointestinal: PRESENT: abdominal pain, diarrhea, nausea, vomiting. ABSENT: coffee ground emesis, constipation, hematemesis, hematochezia, melena Genitourinary: ABSENT: difficulty urinating, dysuria, hematuria Musculoskeletal: ABSENT: joint swelling Integumentary: ABSENT: pruritus, rash, wounds Neurological: ABSENT: abnormal gait, abnormal speech, confusion, dizziness, focal weakness, syncope Psychiatric: ABSENT: anxiety, depression, homidical ideation, suicidal ideation Endocrine: PRESENT: polydipsia, polyuria. ABSENT: cold intolerance, heat intolerance Hematologic/Lymphatic: ABSENT: easy bleeding, easy bruising Physical Exam Vital Signs: Temp Pulse Resp BP Pulse Ox 97.7 F 84 16 120/86 H 100 10/18/16 13:01 10/18/16 13:01 10/18/16 13:01 10/18/16 13:01 10/18/16 13:01 General appearance: PRESENT: no acute distress, cooperative, well-developed, well-nourished Head exam: PRESENT: atraumatic, normocephalic Eye exam: PRESENT: conjunctiva pink, EOMI, PERRLA. ABSENT: scleral icterus Ear exam: PRESENT: normal external ear exam. ABSENT: drainage Mouth exam: PRESENT: moist, neck supple, tongue midline Neck exam: ABSENT: carotid bruit, JVD, lymphadenopathy, thyromegaly Respiratory exam: PRESENT: clear to auscultation alfonso, unlabored. ABSENT: rales , rhonchi, wheezes Cardiovascular exam: PRESENT: RRR, +S1, +S2. ABSENT: diastolic murmur, rubs, systolic murmur Pulses: PRESENT: normal dorsalis pedis pul Vascular exam: PRESENT: normal capillary refill GI/Abdominal exam: PRESENT: normal bowel sounds, soft, tenderness - epigastric area. ABSENT: distended, guarding, mass, organolmegaly, rebound Rectal exam: PRESENT: deferred Extremities exam: PRESENT: full ROM. ABSENT: calf tenderness, clubbing, pedal edema Neurological exam: PRESENT: alert, awake, oriented to person, oriented to place , oriented to time, oriented to situation Psychiatric exam: PRESENT: appropriate affect, normal mood. ABSENT: homicidal ideation, suicidal ideation Skin exam: PRESENT: dry, intact, warm. ABSENT: cyanosis, rash Results Laboratory Results: 10/18/16 13:53 Glucose 619 H* Assessment & Plan - Diagnosis (1) Pancreatitis Qualifiers: Chronicity: acute Pancreatitis type: unspecified pancreatitis type Acute pancreatitis complication: unspecified Qualified Code(s): K85.90 - Acute pancreatitis without necrosis or infection, unspecified Is this a current diagnosis for this admission?: Yes (2) Diabetic ketoacidosis Qualifiers: Diabetes mellitus type: type 1 Diabetes mellitus complication detail: without coma Qualified Code(s): E10.10 - Type 1 diabetes mellitus with ketoacidosis without coma Is this a current diagnosis for this admission?: Yes (3) Hyponatremia Is this a current diagnosis for this admission?: Yes (4) Hyperlipidemia Qualifiers: Hyperlipidemia type: unspecified Qualified Code(s): E78.5 - Hyperlipidemia , unspecified Is this a current diagnosis for this admission?: Yes (5) Depression Qualifiers: Depression Type: unspecified Qualified Code(s): F32.9 - Major depressive disorder, single episode, unspecified Is this a current diagnosis for this admission?: Yes - Time Time Spent: 50 to 70 Minutes Anticipated discharge: Home Within: within 72 hours - Inpatient Certification Based on my medical assessment, after consideration of the patient's comorbidities, presenting symptoms, or acuity I expect that the services needed warrant INPATIENT care.: Yes I certify that my determination is in accordance with my understanding of Medicare's requirements for reasonable and necessary INPATIENT services [42 CFR 412.3e].: Yes Medical Necessity: Need Close Monitoring Due to Risk of Patient Decompensation, Need For IV Fluids, Need for Pain Control Post Hospital Care: D/C Button Reclaimer Documentation - Plan Summary Plan Summary: Admit to IMCU. Give insulin IV bolus and increase drip. Monitor serial chemistries and AGAP. Measure BS hourly and cont. IV insulin till acidosis resolved. We will keep him NPO and monitor lipase amylase and crea serially. Check abdominal US. DVT prophylaxis w/ lovenox. IV analgesics and anti-emetics PRN for symptomatic relief. Further testing depends on the initial evaluation and response to treatment as outlined above.
[2016-10-18 18:30] LABS: ANION GAP 11 (5-19); BLOOD UREA NITROGEN 15 mg/dL (7-20); CALCIUM 8.8 mg/dL (8.4-10.2); CARBON DIOXIDE 19 mmol/L (22-30); CHLORIDE 108 mmol/L (98-107); CREATININE RESULT 0.78 mg/dL (0.52-1.25); GLUCOSE 241 mg/dL (75-110); POTASSIUM 3.6 mmol/L (3.6-5.0); SODIUM 137.6 mmol/L (137-145)
[2016-10-18] MEDS ORDERED: RINGERS SOLUTION,LACTATED 1,000 ML IV PRN (20:01)
[2016-10-18] MEDS: DEXTROSE 5%-NORMAL SALINE 1,000 ML IV PRN (21:51)
[2016-10-18] MEDS ORDERED: RINGERS SOLUTION,LACTATED 2,000 ML IV ONE (22:00)
[2016-10-18 22:17] LABS: ANION GAP 9 (5-19); BLOOD UREA NITROGEN 13 mg/dL (7-20); CALCIUM 8.4 mg/dL (8.4-10.2); CARBON DIOXIDE 18 mmol/L (22-30); CHLORIDE 112 mmol/L (98-107); GLUCOSE 168 mg/dL (75-110); POTASSIUM 3.3 mmol/L (3.6-5.0); SODIUM 138.5 mmol/L (137-145)
[2016-10-18] MEDS: GABAPENTIN 300 MG CAPSULE PO SCH (22:22)
[2016-10-18] MEDS ORDERED: POTASSI CL 20 MEQ/50 ML RIDER 20 MEQ/50 ML RTUPB IV ONE (22:47)
[2016-10-18] MEDS: POTASSI CL 20 MEQ/50 ML RIDER 20 MEQ/50 ML RTUPB IV SCH (22:49)
[2016-10-18] MEDS: PROMETHAZINE HCL INJ 25 MG/1 ML VIAL IV PRN (23:56)
[2016-10-19] MEDS: MORPHINE SULFATE 10 MG/ML INJ IV PRN ×8 (00:52→23:14)
[2016-10-19] MEDS: POTASSI CL 20 MEQ/50 ML RIDER 20 MEQ/50 ML RTUPB IV SCH (01:06)
[2016-10-19] MEDS: DEXTROSE 5%-NORMAL SALINE 1,000 ML IV PRN (01:07)
[2016-10-19] MEDS ORDERED: DEXTROSE 5%-NORMAL SALINE 1,000 ML IV PRN (02:14)
[2016-10-19 02:40] LABS: ANION GAP 7 (5-19); BLOOD UREA NITROGEN 13 mg/dL (7-20); CALCIUM 8.1 mg/dL (8.4-10.2); CARBON DIOXIDE 19 mmol/L (22-30); CHLORIDE 111 mmol/L (98-107); CREATININE RESULT 0.69 mg/dL (0.52-1.25); GLUCOSE 300 mg/dL (75-110); POTASSIUM 3.8 mmol/L (3.6-5.0)
[2016-10-19] MEDS: LANSOPRAZOLE 30 MG TAB.RAP.DR PO SCH (06:08)
[2016-10-19 07:07] LABS: APPEARANCE,URINE SLIGHTLY-CLOUDY; BILIRUBIN,URINE NEGATIVE (NEGATIVE); GLUCOSE, URINE >=500 mg/dL (NEGATIVE); KETONES,URINE NEGATIVE (NEGATIVE); LEUKOCYTE ESTERASE,URINE NEGATIVE (NEGATIVE); NITRITE,URINE NEGATIVE (NEGATIVE); PROTEIN,URINE NEGATIVE (NEGATIVE); URINE SPECIFIC GRAVITY 1.027; UROBILINOGEN,URINE NEGATIVE mg/dL (<2.0)
[2016-10-19 07:14] LABS: HEMATOCRIT 29.7 % (37.9-51.0); HEMOGLOBIN 9.6 g/dL (13.5-17.0); HGB HCT DIFFERENCE -0.9; MEAN CORPUSCULAR HEMOGLOBIN 26.6 pg (27.0-33.4); MEAN CORPUSCULAR HGB CONC 32.2 g/dL (32.0-36.0); RED CELL DISTRIBUTION WIDTH 18.5 % (11.5-14.0); WHITE BLOOD COUNT 5.5 10^3/uL (4.0-10.5)
[2016-10-19 07:20] LABS: AMYLASE 50 U/L (30-110); ANION GAP 6 (5-19); BLOOD UREA NITROGEN 11 mg/dL (7-20); CALCIUM 7.9 mg/dL (8.4-10.2); CARBON DIOXIDE 20 mmol/L (22-30); CHLORIDE 114 mmol/L (98-107); CREATININE RESULT 0.67 mg/dL (0.52-1.25); GLUCOSE 239 mg/dL (75-110); LIPASE 157.5 U/L (23-300); MAGNESIUM 1.6 mg/dL (1.6-2.3); POTASSIUM 3.3 mmol/L (3.6-5.0); SODIUM 139.8 mmol/L (137-145)
[2016-10-19 08:24] LABS: MEAN CORPUSCULAR VOLUME 82 fl (80-97)
[2016-10-19] MEDS: ENOXAPARIN SODIUM INJ 40 MG/0.4 ML DISP.SYRIN SUBCUT SCH (09:33)
[2016-10-19] MEDS: PROMETHAZINE HCL INJ 25 MG/1 ML VIAL IV PRN ×2 (12:24→23:14)
[2016-10-19] MEDS ORDERED: POTASSI CL 20 MEQ/50 ML RIDER 20 MEQ/50 ML RTUPB IV SCH (13:29)
[2016-10-19] MEDS ORDERED: PROMETHAZINE HCL INJ 25 MG/1 ML VIAL IV PRN (14:00)
[2016-10-19 14:19] LABS: ANION GAP 7 (5-19); BLOOD UREA NITROGEN 12 mg/dL (7-20); CALCIUM 8.2 mg/dL (8.4-10.2); CARBON DIOXIDE 19 mmol/L (22-30); CHLORIDE 112 mmol/L (98-107); CREATININE RESULT 0.67 mg/dL (0.52-1.25); GLUCOSE 280 mg/dL (75-110); SODIUM 137.8 mmol/L (137-145)
[2016-10-19] MEDS: ONDANSETRON HCL INJ/PF 4 MG/2 ML SDV IV PRN (16:38)
[2016-10-19] MEDS ORDERED: DEXTROSE 50%-WATER SYRINGE 25 GM/50 ML DOSE IV PRN (16:53)
[2016-10-19] MEDS ORDERED: DEXTROSE 40% GEL 15 GM TUBE PO PRN ×3 (16:53→17:15)
[2016-10-19] MEDS ORDERED: NORMAL SALINE 1000 ML 1,000 ML IV PRN (16:53)
[2016-10-19] MEDS ORDERED: DEXTROSE 50%-WATER SYRINGE 12.5 GM/25 ML DOSE IV PRN (16:53)
[2016-10-19] MEDS ORDERED: GLUCAGON,HUMAN RECOMB 1 MG INJ IM PRN ×2 (16:53→17:15)
[2016-10-19] MEDS ORDERED: INSULIN LISPRO 100 UNIT/ML 3 ML VIAL SUBCUT PRN (16:53)
[2016-10-19] MEDS ORDERED: DEXTROSE 40% GEL 15 GM TUBE X 2 PO PRN (16:53)
[2016-10-19] MEDS ORDERED: INSULIN REG, HUMAN 100 UNIT/ML 3 ML VIAL (PYX) SUBCUT PRN (17:15)
[2016-10-19] MEDS ORDERED: DEXTROSE 50%-WATER 25 GM/50 ML DISP.SYRIN IV PRN ×2 (17:15)
--- NOTE | 2016-10-19 17:23 | PDOC PROGRESS REPORT ---
Subjective Progress Note for:: 10/19/16 Subjective:: Patient symptomatically improved. No nausea or vomiting. No chills or fever. Diarrhea resolved. Abdominal pain likewise resolved. No shortness of breath PND orthopnea nor chest congestion. Physical Exam Vital Signs: Temp Pulse Resp BP Pulse Ox 98.4 F 85 16 118/85 99 10/19/16 16:17 10/19/16 16:17 10/19/16 16:17 10/19/16 16:17 10/19/16 16:17 Intake & Output 10/18/16 10/19/16 10/20/16 06:59 06:59 06:59 Intake Total 6430 Output Total 225 Balance 6205 Weight 73.6 kg General appearance: PRESENT: no acute distress, cooperative Head exam: PRESENT: normocephalic Eye exam: PRESENT: EOMI Mouth exam: PRESENT: moist, neck supple Neck exam: ABSENT: JVD Respiratory exam: PRESENT: clear to auscultation alfonso. ABSENT: rhonchi, wheezes Cardiovascular exam: PRESENT: RRR GI/Abdominal exam: PRESENT: soft. ABSENT: distended, tenderness Extremities exam: ABSENT: pedal edema Neurological exam: PRESENT: alert, awake, oriented to situation Skin exam: PRESENT: dry, warm. ABSENT: cyanosis Results Laboratory Results: 10/19/16 06:54 10/19/16 13:29 10/18/16 10/18/16 10/19/16 18:02 21:59 02:08 WBC RBC Hgb Hct MCV MCH MCHC RDW Plt Count Sodium 137.6 138.5 137.0 Potassium 3.6 3.3 L 3.8 Chloride 108 H 112 H 111 H Carbon Dioxide 19 L 18 L 19 L Anion Gap 11 9 7 BUN 15 13 13 Creatinine 0.78 0.70 0.69 Est GFR ( Amer) > 60 > 60 > 60 Est GFR (Non-Af Amer) > 60 > 60 > 60 Glucose 241 H 168 H 300 H Calcium 8.8 8.4 8.1 L Phosphorus Magnesium Amylase Lipase Urine Color Urine Appearance Urine pH Ur Specific [place] Urine Protein Urine Glucose (UA) Urine Ketones Urine Blood Urine Nitrite Ur Leukocyte Esterase Urine WBC (Auto) Urine RBC (Auto) 10/19/16 10/19/16 10/19/16 06:15 06:54 06:54 WBC 5.5 RBC 3.60 L Hgb 9.6 L Hct 29.7 L MCV 82 D MCH 26.6 L MCHC 32.2 RDW 18.5 H Plt Count 190 Sodium 139.8 Potassium 3.3 L Chloride 114 H Carbon Dioxide 20 L Anion Gap 6 BUN 11 Creatinine 0.67 Est GFR ( Amer) > 60 Est GFR (Non-Af Amer) > 60 Glucose 239 H Calcium 7.9 L Phosphorus 2.0 L Magnesium 1.6 Amylase 50 Lipase 157.5 Urine Color YELLOW Urine Appearance SLIGHTLY-CLOUDY Urine pH 5.0 Ur Specific [place] 1.027 Urine Protein NEGATIVE Urine Glucose (UA) >=500 H Urine Ketones NEGATIVE Urine Blood NEGATIVE Urine Nitrite NEGATIVE Ur Leukocyte Esterase NEGATIVE Urine WBC (Auto) 2 Urine RBC (Auto) 1 10/19/16 13:29 WBC RBC Hgb Hct MCV MCH MCHC RDW Plt Count Sodium 137.8 Potassium 4.0 Chloride 112 H Carbon Dioxide 19 L Anion Gap 7 BUN 12 Creatinine 0.67 Est GFR ( Amer) > 60 Est GFR (Non-Af Amer) > 60 Glucose 280 H Calcium 8.2 L Phosphorus Magnesium Amylase Lipase Urine Color Urine Appearance Urine pH Ur Specific [place] Urine Protein Urine Glucose (UA) Urine Ketones Urine Blood Urine Nitrite Ur Leukocyte Esterase Urine WBC (Auto) Urine RBC (Auto) Assessment & Plan - Diagnosis (1) Pancreatitis Qualifiers: Chronicity: acute Pancreatitis type: unspecified pancreatitis type Acute pancreatitis complication: unspecified Qualified Code(s): K85.90 - Acute pancreatitis without necrosis or infection, unspecified Is this a current diagnosis for this admission?: Yes (2) Diabetic ketoacidosis Qualifiers: Diabetes mellitus type: type 1 Diabetes mellitus complication detail: without coma Qualified Code(s): E10.10 - Type 1 diabetes mellitus with ketoacidosis without coma Is this a current diagnosis for this admission?: Yes (3) Hyponatremia Is this a current diagnosis for this admission?: Yes (4) Hyperlipidemia Qualifiers: Hyperlipidemia type: unspecified Qualified Code(s): E78.5 - Hyperlipidemia , unspecified Is this a current diagnosis for this admission?: Yes (5) Depression Qualifiers: Depression Type: unspecified Qualified Code(s): F32.9 - Major depressive disorder, single episode, unspecified Is this a current diagnosis for this admission?: Yes - Time Time Spent with patient: 25-34 minutes - Plan Summary Plan Summary: We will transition the patient to subcutaneous insulin. Begin diet. Consult landscape architect and planner for medication assistance. Once availability of short acting insulin is present patient can be discharged. In the meantime we will discontinue dextrose containing IV fluid once patient is able to eat. I will just put the patient on regular insulin 5 units subcu before meals. Continue other medications and supportive care. site planner on the case.
[2016-10-19] MEDS ORDERED: INSULIN GLARGINE,HUM.REC.ANLOG 1,000 UNIT/10 ML UNIT SUBCUT ONE (18:45)
[2016-10-19] MEDS ORDERED: INSULIN GLARGINE,HUM.REC.ANLOG 300 UNIT/3 ML INSULN.PEN SUBCUT ONE (19:30)
[2016-10-19] MEDS: GABAPENTIN 300 MG CAPSULE PO SCH (21:34)
[2016-10-19] MEDS: INSULIN LISPRO 100 UNIT/ML 3 ML VIAL SUBCUT PRN (23:58)
[2016-10-20] MEDS: ONDANSETRON HCL INJ/PF 4 MG/2 ML SDV IV PRN ×3 (01:55→15:08)
[2016-10-20] MEDS: MORPHINE SULFATE 10 MG/ML INJ IV PRN ×2 (04:17→07:52)
[2016-10-20] MEDS: LANSOPRAZOLE 30 MG TAB.RAP.DR PO SCH (05:19)
[2016-10-20] MEDS ORDERED: INSULIN GLARGINE,HUM.REC.ANLOG 300 UNIT/3 ML INSULN.PEN SUBCUT SCH (06:00)
[2016-10-20] MEDS: ENOXAPARIN SODIUM INJ 40 MG/0.4 ML DISP.SYRIN SUBCUT SCH (09:22)
[2016-10-20] MEDS: INSULIN GLARGINE,HUM.REC.ANLOG 300 UNIT/3 ML INSULN.PEN SUBCUT SCH ×2 (09:22→22:02)
[2016-10-20] MEDS: NORMAL SALINE 1000 ML 1,000 ML IV PRN (09:22)
[2016-10-20] MEDS: INSULIN LISPRO 100 UNIT/ML 3 ML VIAL SUBCUT PRN ×3 (13:37→22:02)
--- NOTE | 2016-10-20 14:01 | PDOC PROGRESS REPORT ---
Subjective Progress Note for:: 10/20/16 Subjective:: Patient complains of some mild left upper quadrant. Physical Exam Vital Signs: Temp Pulse Resp BP Pulse Ox 97.6 F 88 16 150/88 H 100 10/20/16 10:59 10/20/16 10:59 10/20/16 10:59 10/20/16 10:59 10/20/16 10:59 Intake & Output 10/19/16 10/20/16 10/21/16 06:59 06:59 06:59 Intake Total 6430 1560 Output Total 225 Balance 6205 1560 Weight 73.6 kg 74 kg General appearance: PRESENT: no acute distress Eye exam: PRESENT: conjunctiva pink. ABSENT: scleral icterus Mouth exam: PRESENT: moist, tongue midline Neck exam: ABSENT: JVD Respiratory exam: PRESENT: clear to auscultation alfonso. ABSENT: rales, rhonchi, wheezes Cardiovascular exam: PRESENT: RRR. ABSENT: diastolic murmur, rubs, systolic murmur GI/Abdominal exam: PRESENT: normal bowel sounds, soft, tenderness - Mild left upper quadrant tenderness. ABSENT: distended, guarding, mass, organolmegaly, rebound Extremities exam: ABSENT: calf tenderness, clubbing, pedal edema Neurological exam: PRESENT: alert, awake, oriented to person, oriented to place , oriented to time, oriented to situation, CN II-XII grossly intact. ABSENT: motor sensory deficit Psychiatric exam: PRESENT: appropriate affect Skin exam: PRESENT: dry, intact, warm. ABSENT: cyanosis, rash Results Laboratory Results: 10/19/16 06:54 10/19/16 13:29 10/19/16 13:29 Sodium 137.8 Potassium 4.0 Chloride 112 H Carbon Dioxide 19 L Anion Gap 7 BUN 12 Creatinine 0.67 Est GFR ( Amer) > 60 Est GFR (Non-Af Amer) > 60 Glucose 280 H Calcium 8.2 L Assessment & Plan - Diagnosis (1) Pancreatitis Qualifiers: Chronicity: acute Pancreatitis type: unspecified pancreatitis type Acute pancreatitis complication: unspecified Qualified Code(s): K85.90 - Acute pancreatitis without necrosis or infection, unspecified Is this a current diagnosis for this admission?: Yes Plan: The patient is still having pain but reports is improved. He wants to stop the IV medication and see if he can tolerate it with oral medications and a diet. (2) Diabetic ketoacidosis Qualifiers: Diabetes mellitus type: type 1 Diabetes mellitus complication detail: without coma Qualified Code(s): E10.10 - Type 1 diabetes mellitus with ketoacidosis without coma Is this a current diagnosis for this admission?: Yes Plan: Resolved. Continue with the insulin. (3) Depression Qualifiers: Depression Type: unspecified Qualified Code(s): F32.9 - Major depressive disorder, single episode, unspecified Is this a current diagnosis for this admission?: Yes (4) Hyperlipidemia Qualifiers: Hyperlipidemia type: unspecified Qualified Code(s): E78.5 - Hyperlipidemia , unspecified Is this a current diagnosis for this admission?: Yes (5) Hyponatremia Is this a current diagnosis for this admission?: Yes - Time Time Spent with patient: 25-34 minutes - Inpatient Certification Medical Necessity: Need Close Monitoring Due to Risk of Patient Decompensation
[2016-10-20] MEDS: OXYCODONE HCL IR 5 MG TABLET PO PRN ×2 (14:04→20:06)
[2016-10-20] MEDS: PROMETHAZINE HCL INJ 25 MG/1 ML VIAL IV PRN (20:10)
[2016-10-20] MEDS: GABAPENTIN 300 MG CAPSULE PO SCH (22:02)
[2016-10-21 05:02] LABS: ABSOLUTE BASOPHILS # (AUTO) 0.1 10^3/uL (0.0-0.2); ABSOLUTE EOSINOPHILS # (AUTO) 0.2 10^3/uL (0.0-0.6); ABSOLUTE LYMPHOCYTES (AUTO) 1.5 10^3/uL (0.5-4.7); ABSOLUTE MONOCYTES (AUTO) 0.5 10^3/uL (0.1-1.4); ABSOLUTE NEUT (AUTO) 2.7 10^3/uL (1.7-8.2); BASOPHILS % (AUTO) 1.1 % (0-2); EOSINOPHILS % (AUTO) 3.8 % (0-6); HEMATOCRIT 32.2 % (37.9-51.0); HEMOGLOBIN 10.2 g/dL (13.5-17.0); HGB HCT DIFFERENCE -1.6; LYMPHOCYTES % (AUTO) 30.2 % (13-45); MEAN CORPUSCULAR HEMOGLOBIN 26.1 pg (27.0-33.4); MEAN CORPUSCULAR HGB CONC 31.7 g/dL (32.0-36.0); MEAN CORPUSCULAR VOLUME 82 fl (80-97); MONOCYTES % (AUTO) 9.5 % (3-13); RED BLOOD COUNT 3.91 10^6/uL (4.35-5.55); RED CELL DISTRIBUTION WIDTH 18.1 % (11.5-14.0); SEGMENTED NEUTROPHILS % (AUTO) 55.4 % (42-78); WHITE BLOOD COUNT 4.9 10^3/uL (4.0-10.5)
[2016-10-21 05:16] LABS: ANION GAP 7 (5-19); BLOOD UREA NITROGEN 12 mg/dL (7-20); CALCIUM 8.9 mg/dL (8.4-10.2); CARBON DIOXIDE 23 mmol/L (22-30); CHLORIDE 109 mmol/L (98-107); CREATININE RESULT 0.89 mg/dL (0.52-1.25); GLUCOSE 277 mg/dL (75-110); POTASSIUM 3.9 mmol/L (3.6-5.0)
[2016-10-21] MEDS: LANSOPRAZOLE 30 MG TAB.RAP.DR PO SCH (05:24)
[2016-10-21] MEDS: PROMETHAZINE HCL INJ 25 MG/1 ML VIAL IV PRN ×2 (05:27→15:23)
[2016-10-21] MEDS: INSULIN LISPRO 100 UNIT/ML 3 ML VIAL SUBCUT PRN ×6 (07:54→17:09)
[2016-10-21] MEDS: OXYCODONE HCL IR 5 MG TABLET PO PRN ×4 (08:13→20:48)
--- NOTE | 2016-10-21 10:02 | PDOC CONSULTATION ---
Consultation Consult Date: 10/21/16 Attending physician:: MANGO NORRIS Consult reason:: Melena History of Present Illness Admission Date/PCP: 10/18/16 14:31 [facility] History of Present Illness: Asked to see this patient by Dr Barrett patient was admitted secondary to DKA and noted to have pancreatitis patient states having abdominal pain and noted to have some melena asked to see this patient for possible EGD patient denies any dysphagia or odynophagia there is some early satiety patient states no previous history of peptic ulcer disease nausea and vomiting has resolved ? possible emeli dowell tear patient is willing to undergo EGD Past Medical History Cardiac Medical History: Reports: Hyperlipidema Denies: Hypertension Pulmonary Medical History: Denies: Tuberculosis Neurological Medical History: Denies: Seizures Endocrine Medical History: Reports: Diabetes Mellitus Type 1 - 4 years Denies: Diabetes Mellitus Type 2, Hyperthyroidism, Hypothyroidism Psychiatric Medical History: Reports: Depression Past Surgical History Past Surgical History: Reports: Orthopedic Surgery - back Denies: Appendectomy, Cholecystectomy, Coronary Artery Bypass Graft, Gastric Bypass Surgery, Herniorrhaphy, Pacemaker, Tonsillectomy Social History Smoking Status: Former Smoker Cigarettes Packs Per Day: 5 Frequency of Alcohol Use: None Hx Recreational Drug Use: No Drugs: Marijuana Hx Prescription Drug Abuse: No - Advance Directive Resuscitation Status: Full Code Family History Family History: DM, Hyperlipidemia, Hypertension Parental Family History Reviewed: Yes Children Family History Reviewed: Unknown Sibling(s) Family History Reviewed.: Unknown Medication/Allergy Home Medications: Gabapentin [Neurontin 300 mg Capsule] 300 mg PO QHS 10/18/16 Insulin Aspart [Novolog Insulin 100 Unit/1 ml 10 ml] 4 unit SUBCUT AC 10/18/16 Insulin Glargine,Hum.rec.anlog [Lantus] 30 unit SQ QAM 10/18/16 Insulin Glargine,Hum.rec.anlog [Lantus] 30 unit SQ QPM 10/18/16 Multivitamin [One-A-Day Essential] 1 each PO DAILY 10/18/16 Allergies/Adverse Reactions: No Known Allergies Allergy (Verified 09/23/16 08:31) Review of Systems Constitutional: ABSENT: fever(s), headache(s), night sweats, weakness Eyes: ABSENT: visual disturbances Nose, Mouth, and Throat: ABSENT: mouth pain, sore throat Cardiovascular: ABSENT: orthropnea, palpitations Respiratory: ABSENT: dyspnea, hemoptysis Gastrointestinal: PRESENT: abdominal pain, melena. ABSENT: diarrhea, hematemesis Genitourinary: ABSENT: dysuria, hematuria Musculoskeletal: ABSENT: deformity, joint swelling Neurological: ABSENT: syncope, tingling, tremor(s), vertigo Endocrine: ABSENT: polydipsia, polyphagia, polyuria Hematologic/Lymphatic: PRESENT: easy bruising Physical Exam Vital Signs: Temp Pulse Resp BP Pulse Ox 98.5 F 83 18 128/87 H 100 10/21/16 07:35 10/21/16 07:35 10/21/16 07:35 10/21/16 07:35 10/21/16 07:35 Intake & Output 10/20/16 10/21/16 10/22/16 06:59 06:59 06:59 Intake Total 1560 3080 Output Total 1050 Balance 1560 2030 Weight 74 kg 73.6 kg General appearance: PRESENT: no acute distress, well-developed, well-nourished Head exam: PRESENT: atraumatic, normocephalic Eye exam: PRESENT: EOMI, PERRLA. ABSENT: scleral icterus Mouth exam: PRESENT: moist Throat exam: ABSENT: tonsillar exudate, tonsillogmegaly Neck exam: ABSENT: meningismus, tenderness, thyromegaly Respiratory exam: PRESENT: symmetrical, unlabored. ABSENT: tachypnea, wheezes Cardiovascular exam: PRESENT: RRR, +S1, +S2 GI/Abdominal exam: PRESENT: soft. ABSENT: rebound, rigid, tenderness Extremities exam: ABSENT: joint swelling Musculoskeletal exam: PRESENT: full ROM Neurological exam: PRESENT: oriented to time, oriented to situation, reflexes normal, CN II-XII grossly intact Psychiatric exam: PRESENT: appropriate affect Skin exam: PRESENT: normal color. ABSENT: mottled, pallor, petechiae, urticaria , vesicles Results Laboratory Results: 10/21/16 04:19 10/21/16 04:19 10/21/16 10/21/16 04:19 04:19 WBC 4.9 RBC 3.91 L Hgb 10.2 L Hct 32.2 L MCV 82 MCH 26.1 L MCHC 31.7 L RDW 18.1 H Plt Count 205 Seg Neutrophils % 55.4 Lymphocytes % 30.2 Monocytes % 9.5 Eosinophils % 3.8 Basophils % 1.1 Absolute Neutrophils 2.7 Absolute Lymphocytes 1.5 Absolute Monocytes 0.5 Absolute Eosinophils 0.2 Absolute Basophils 0.1 Sodium 139.0 Potassium 3.9 Chloride 109 H Carbon Dioxide 23 Anion Gap 7 BUN 12 Creatinine 0.89 Est GFR ( Amer) > 60 Est GFR (Non-Af Amer) > 60 Glucose 277 H Calcium 8.9 Assessment & Plan - Diagnosis (1) Pancreatitis, acute Plan: resolving may be able to be started on liquids, however would be safer to keep NPO until post procedure (2) Melena Plan: ? could be peptic ulcer disease possible a emeli dowell tear will need EGD Risks, benefits and alternatives are discussed with the patient in detail further recommendations to follow - Time Time Spent: 50 to 70 Minutes
[2016-10-21] MEDS: ONDANSETRON HCL INJ/PF 4 MG/2 ML SDV IV PRN ×2 (10:46→20:47)
[2016-10-21] MEDS: INSULIN GLARGINE,HUM.REC.ANLOG 300 UNIT/3 ML INSULN.PEN SUBCUT SCH ×2 (10:52→22:23)
[2016-10-21] MEDS: ENOXAPARIN SODIUM INJ 40 MG/0.4 ML DISP.SYRIN SUBCUT SCH (10:53)
--- NOTE | 2016-10-21 11:52 | PDOC PROGRESS REPORT ---
Subjective Progress Note for:: 10/21/16 Subjective:: Patient complains of some mild left upper quadrant. Also reports having some melanotic stool overnight. Physical Exam Vital Signs: Temp Pulse Resp BP Pulse Ox 98.5 F 83 18 128/87 H 100 10/21/16 07:35 10/21/16 07:35 10/21/16 07:35 10/21/16 07:35 10/21/16 07:35 Intake & Output 10/20/16 10/21/16 10/22/16 06:59 06:59 06:59 Intake Total 1560 3080 Output Total 1050 Balance 1560 2030 Weight 74 kg 73.6 kg General appearance: PRESENT: no acute distress Eye exam: PRESENT: conjunctiva pink. ABSENT: scleral icterus Ear exam: PRESENT: normal external ear exam Mouth exam: PRESENT: moist, tongue midline Neck exam: ABSENT: JVD Respiratory exam: PRESENT: clear to auscultation alfonso. ABSENT: rales, rhonchi, wheezes Cardiovascular exam: PRESENT: RRR. ABSENT: diastolic murmur, rubs, systolic murmur GI/Abdominal exam: PRESENT: normal bowel sounds, soft, tenderness - Moderate left upper quadrant tenderness.. ABSENT: distended, guarding, mass, organolmegaly, rebound Extremities exam: ABSENT: calf tenderness, clubbing, pedal edema Neurological exam: PRESENT: alert, awake, oriented to person, oriented to place , oriented to time, oriented to situation, CN II-XII grossly intact. ABSENT: motor sensory deficit Psychiatric exam: PRESENT: appropriate affect Skin exam: PRESENT: dry, intact, warm. ABSENT: cyanosis, rash Results Laboratory Results: 10/21/16 04:19 10/21/16 04:19 10/21/16 10/21/16 04:19 04:19 WBC 4.9 RBC 3.91 L Hgb 10.2 L Hct 32.2 L MCV 82 MCH 26.1 L MCHC 31.7 L RDW 18.1 H Plt Count 205 Seg Neutrophils % 55.4 Lymphocytes % 30.2 Monocytes % 9.5 Eosinophils % 3.8 Basophils % 1.1 Absolute Neutrophils 2.7 Absolute Lymphocytes 1.5 Absolute Monocytes 0.5 Absolute Eosinophils 0.2 Absolute Basophils 0.1 Sodium 139.0 Potassium 3.9 Chloride 109 H Carbon Dioxide 23 Anion Gap 7 BUN 12 Creatinine 0.89 Est GFR ( Amer) > 60 Est GFR (Non-Af Amer) > 60 Glucose 277 H Calcium 8.9 Assessment & Plan - Diagnosis (1) Pancreatitis Qualifiers: Chronicity: acute Pancreatitis type: unspecified pancreatitis type Acute pancreatitis complication: unspecified Qualified Code(s): K85.90 - Acute pancreatitis without necrosis or infection, unspecified Is this a current diagnosis for this admission?: Yes Plan: The patient is still having pain but reports is improved. Will increase the oxycodone. (2) Diabetic ketoacidosis Qualifiers: Diabetes mellitus type: type 1 Diabetes mellitus complication detail: without coma Qualified Code(s): E10.10 - Type 1 diabetes mellitus with ketoacidosis without coma Is this a current diagnosis for this admission?: Yes Plan: Resolved. Continue with the insulin. (3) Depression Qualifiers: Depression Type: unspecified Qualified Code(s): F32.9 - Major depressive disorder, single episode, unspecified Is this a current diagnosis for this admission?: Yes (4) Hyperlipidemia Qualifiers: Hyperlipidemia type: unspecified Qualified Code(s): E78.5 - Hyperlipidemia , unspecified Is this a current diagnosis for this admission?: Yes (5) Hyponatremia Is this a current diagnosis for this admission?: Yes (6) Melena Is this a current diagnosis for this admission?: Yes Plan: Patient is to be seen by GI today. - Time Time Spent with patient: 25-34 minutes - Inpatient Certification Medical Necessity: Need For IV Fluids, Need for Pain Control
[2016-10-21] MEDS: NORMAL SALINE 1000 ML 1,000 ML IV PRN (17:08)
[2016-10-21] MEDS: GABAPENTIN 300 MG CAPSULE PO SCH (22:23)
[2016-10-22] MEDS: ONDANSETRON HCL INJ/PF 4 MG/2 ML SDV IV PRN ×4 (00:25→16:08)
[2016-10-22] MEDS: OXYCODONE HCL IR 5 MG TABLET PO PRN ×4 (00:25→16:08)
[2016-10-22 05:10] LABS: ABSOLUTE BASOPHILS # (AUTO) 0.1 10^3/uL (0.0-0.2); ABSOLUTE EOSINOPHILS # (AUTO) 0.2 10^3/uL (0.0-0.6); ABSOLUTE LYMPHOCYTES (AUTO) 2.2 10^3/uL (0.5-4.7); ABSOLUTE MONOCYTES (AUTO) 0.6 10^3/uL (0.1-1.4); ABSOLUTE NEUT (AUTO) 2.3 10^3/uL (1.7-8.2); BASOPHILS % (AUTO) 1.3 % (0-2); EOSINOPHILS % (AUTO) 4.2 % (0-6); HEMATOCRIT 30.8 % (37.9-51.0); HEMOGLOBIN 10.2 g/dL (13.5-17.0); HGB HCT DIFFERENCE -0.2; LYMPHOCYTES % (AUTO) 41.8 % (13-45); MEAN CORPUSCULAR HEMOGLOBIN 26.5 pg (27.0-33.4); MEAN CORPUSCULAR HGB CONC 33.2 g/dL (32.0-36.0); MEAN CORPUSCULAR VOLUME 80 fl (80-97); MONOCYTES % (AUTO) 10.6 % (3-13); RED BLOOD COUNT 3.85 10^6/uL (4.35-5.55); RED CELL DISTRIBUTION WIDTH 18.9 % (11.5-14.0); SEGMENTED NEUTROPHILS % (AUTO) 42.1 % (42-78); WHITE BLOOD COUNT 5.3 10^3/uL (4.0-10.5)
[2016-10-22 05:30] LABS: ANION GAP 8 (5-19); BLOOD UREA NITROGEN 9 mg/dL (7-20); CALCIUM 8.5 mg/dL (8.4-10.2); CARBON DIOXIDE 22 mmol/L (22-30); CHLORIDE 112 mmol/L (98-107); CREATININE RESULT 0.67 mg/dL (0.52-1.25); GLUCOSE 112 mg/dL (75-110); LIPASE 95.2 U/L (23-300); POTASSIUM 3.6 mmol/L (3.6-5.0); SODIUM 141.9 mmol/L (137-145)
[2016-10-22] MEDS: LANSOPRAZOLE 30 MG TAB.RAP.DR PO SCH (06:14)
[2016-10-22] MEDS: NORMAL SALINE 1000 ML 1,000 ML IV PRN (06:14)
[2016-10-22] MEDS: INSULIN GLARGINE,HUM.REC.ANLOG 300 UNIT/3 ML INSULN.PEN SUBCUT SCH (09:25)
[2016-10-22] MEDS: PROMETHAZINE HCL INJ 25 MG/1 ML VIAL IV PRN (11:22)
[2016-10-22] MEDS ORDERED: MIDAZOLAM 2 MG/2 ML INJ ONE (13:14)
[2016-10-22] MEDS ORDERED: PROPOFOL INJ 200 MG/20 ML VIAL IV ONE (13:15)
[2016-10-22] MEDS ORDERED: MEPERIDINE HCL/PF INJ 25 MG/1 ML DISP.SYRIN IV PRN (14:09)
[2016-10-22] MEDS ORDERED: OXYCODONE-ACETAMINOPHEN 5-325 MG TABLET PO PRN ×2 (14:09)
[2016-10-22] MEDS ORDERED: PROMETHAZINE HCL INJ 25 MG/1 ML VIAL IV PRN ×2 (14:09)
[2016-10-22] MEDS ORDERED: FENTANYL CITRATE INJ/PF 100 MCG/2 ML AMPUL IV PRN ×3 (14:09)
[2016-10-22] MEDS ORDERED: MORPHINE SULFATE 10 MG/ML INJ IV PRN (14:09)
[2016-10-22] MEDS ORDERED: ONDANSETRON HCL INJ/PF 4 MG/2 ML SDV IV PRN (14:09)
[2016-10-22] MEDS ORDERED: DIPHENHYDRAMINE HCL 50 MG/ML VIAL IV PRN (14:09)
--- NOTE | 2016-10-22 14:24 | Operative Report ---
Operative Report DATE OF SURGERY: 10/22/16 Operative Report: The risks benefits and alternatives of the procedure explained to the patient in detail and informed consent is obtained.A GIF Olympus video scope was inserted into the patient's mouth and hypopharynx, the esophagus is identified intubated and insufflated, the scope was then advanced through the esophagus stomach and duodenum, retroflexion maneuver is done, the esophagus stomach and first and second portions of the duodenum examined PREOPERATIVE DIAGNOSIS: Coffee-ground emesis, abdominal pain POSTOPERATIVE DIAGNOSIS: Gastritis status post biopsy. Possible [place] esophagitis status post brushing OPERATION: EGD with biopsy SURGEON: MANGO NORRIS ANESTHESIA: LMAC TISSUE REMOVED OR ALTERED: As noted above. COMPLICATIONS: None. ESTIMATED BLOOD LOSS: None. INTRAOPERATIVE FINDINGS: As discussed above PROCEDURE: Patient tolerated procedure well. No immediate postprocedure complications are noted. Patient sent back to room in good condition We will await biopsies Resume diet, clear liquids advance as tolerated Continue PPI Follow H&H as needed Spoke with Dr. Barrett
--- NOTE | 2016-10-22 17:10 | PDOC DISCHARGE SUMMARY ---
General - Admit/Disc Date/PCP Admission Date/Primary Care Provider: 10/18/16 14:[address] [facility] Discharge Date: 10/22/16 - Discharge Diagnosis (1) Pancreatitis Is this a current diagnosis for this admission?: Yes (2) Diabetic ketoacidosis Is this a current diagnosis for this admission?: Yes (3) Depression Is this a current diagnosis for this admission?: Yes (4) Hyperlipidemia Is this a current diagnosis for this admission?: Yes (5) Hyponatremia Is this a current diagnosis for this admission?: Yes (6) Melena Is this a current diagnosis for this admission?: Yes Summary: Patient had an EGD that showed gastritis. - Additional Information Resuscitation Status: Full Code Discharge Diet: Diabetic Discharge Activity: Activity As Tolerated Home Medications: Gabapentin [Neurontin 300 mg Capsule] 300 mg PO QHS 10/18/16 Insulin Aspart [Novolog Insulin (Aspart) 100 unit/mL] 4 unit SUBCUT AC 10/18/16 Insulin Glargine,Hum.rec.anlog [Lantus] 30 unit SQ QAM 10/18/16 Insulin Glargine,Hum.rec.anlog [Lantus] 30 unit SQ QPM 10/18/16 Multivitamin [One-A-Day Essential] 1 each PO DAILY 10/18/16 Insulin Glargine,Hum.rec.anlog [Lantus Insulin 100 Unit/mL] 30 unit SUBCUT Q12 insuln.pen 10/22/16 Oxycodone HCl [Oxy-Ir 5 mg Tablet] 10 mg PO Q4HP PRN #30 tablet 10/22/16 Promethazine HCl [Phenergan 25 mg Tablet] 25 mg PO Q4HP PRN #60 tablet 10/22/16 History of Present Illness History of Present Illness: CHESTER MCKEON is a 36 year old male who has a history of diabetes and presented with abdominal pain, nausea and vomiting of several days duration. The patient when he presented to emergency room was found to have glucose of 1300 and was started on an insulin drip. Patient also was found to have acute pancreatitis. Patient does not have any history of alcohol use. Hospital Course Hospital Course: 36-year-old male who presented with nausea vomiting abdominal pain. Patient was found to have pancreatitis. He was made n.p.o. and given IV fluids and IV narcotics. Patient had improvement in his pain and he was started on a diet and his pain medications were changed to oral. Patient did have an episode of melena and because of this GI was consulted and performed an EGD which showed gastritis but no other abnormalities. The patient also did have diabetic ketoacidosis when he presented with a blood sugar of 1300. This resolved quickly with IV fluids and insulin drip. The patient is tolerating a diet well and is felt that he is stable for discharge to home. Physical Exam Vital Signs: Temp Pulse Resp BP Pulse Ox 98.1 F 82 13 131/92 H 98 10/22/16 14:44 10/22/16 14:44 10/22/16 14:44 10/22/16 14:44 10/22/16 14:44 Intake & Output 10/21/16 10/22/16 10/23/16 06:59 06:59 06:59 Intake Total 3080 2540 200 Output Total 1050 0 Balance 2030 2540 200 Weight 73.6 kg 73.4 kg General appearance: PRESENT: no acute distress Eye exam: PRESENT: conjunctiva pink. ABSENT: scleral icterus Mouth exam: PRESENT: moist, tongue midline Neck exam: ABSENT: JVD Respiratory exam: PRESENT: clear to auscultation alfonso. ABSENT: rales, rhonchi, wheezes Cardiovascular exam: PRESENT: RRR. ABSENT: diastolic murmur, rubs, systolic murmur GI/Abdominal exam: PRESENT: normal bowel sounds, soft, tenderness - Mild left upper quadrant tenderness. ABSENT: distended, guarding, mass, organolmegaly, rebound Extremities exam: ABSENT: calf tenderness, clubbing, pedal edema Neurological exam: PRESENT: alert, awake, oriented to person, oriented to place , oriented to time, oriented to situation, CN II-XII grossly intact. ABSENT: motor sensory deficit Psychiatric exam: PRESENT: appropriate affect Skin exam: PRESENT: dry, intact, warm. ABSENT: cyanosis, rash Results Laboratory Results: 10/22/16 04:55 10/22/16 04:55 10/22/16 10/22/16 04:55 04:55 WBC 5.3 RBC 3.85 L Hgb 10.2 L Hct 30.8 L MCV 80 MCH 26.5 L MCHC 33.2 RDW 18.9 H Plt Count 182 Seg Neutrophils % 42.1 Lymphocytes % 41.8 Monocytes % 10.6 Eosinophils % 4.2 Basophils % 1.3 Absolute Neutrophils 2.3 Absolute Lymphocytes 2.2 Absolute Monocytes 0.6 Absolute Eosinophils 0.2 Absolute Basophils 0.1 Sodium 141.9 Potassium 3.6 Chloride 112 H Carbon Dioxide 22 Anion Gap 8 BUN 9 Creatinine 0.67 Est GFR ( Amer) > 60 Est GFR (Non-Af Amer) > 60 Glucose 112 H Calcium 8.5 Lipase 95.2 Qualifiers [place] BEING DISCHARGED WITH ANY OF THE FOLLOWING DIAGNOSIS?: No Plan Discharge Plan: Patient is discharged home in stable condition. Will follow up with primary care in 2 weeks. Time Spent: Greater than 30 Minutes
[2016-10-22 17:14] VITALS: BP 126/93
== END 2016-10-22 18:01 | disposition home or self-care (01) | DRG 637 ==
LOC: ER 08:48 → UNDOADMIN 11:46 → EH 11:46 → 3W 12:56 → EH 14:31 → 3W 18:21
PROC: 0DB68ZX Excision of Stomach, Via Natural or Artificial Opening Endoscopic, Diagnostic (ICD-10-PCS; principal; 2016-10-22 13:30)
DX: E10.10 Type 1 diabetes mellitus with ketoacidosis without coma (principal); K85.90 Acute pancreatitis without necrosis or infection, unspecified; E87.1 Hypo-osmolality and hyponatremia; K92.1 Melena; F32.9 Major depressive disorder, single episode, unspecified; E78.5 Hyperlipidemia, unspecified; E86.0 Dehydration; K29.70 Gastritis, unspecified, without bleeding; Z79.899 Other long term (current) drug therapy; Z79.4 Long term (current) use of insulin; Z87.891 Personal history of nicotine dependence; Z91.19 Patient's noncompliance with other medical treatment and regimen; Z83.3 Family history of diabetes mellitus; Z82.49 Family history of ischemic heart disease and other diseases of the circulatory system
CPT/HCPCS: 36415; 43235; 740; 80048; 80053; 80307; 81001; 82150; 82803; 82947; 82962; 83690; 83735; 83930; 84100; 85025; 85027; 87210; 88305; 96361; 96374; 99291; J1650; J1815; J2250; J2270; J2405; J2550; J2704; J3480; J7030; J7120; S0028

== ENCOUNTER 2016-10-28 16:36 | Inpatient (IN) | payer OTHER ==
[2016-10-28] MEDS ORDERED: ONDANSETRON HCL INJ/PF 4 MG/2 ML SDV IV ONE (16:55)
[2016-10-28] MEDS ORDERED: MORPHINE SULFATE 10 MG/ML INJ IV ONE (16:56)
[2016-10-28] MEDS: NORMAL SALINE 1000 ML 1,000 ML IV PRN ×2 (17:09→17:11)
[2016-10-28 17:33] LABS: APPEARANCE,URINE CLEAR; BILIRUBIN,URINE NEGATIVE (NEGATIVE); GLUCOSE, URINE >=500 mg/dL (NEGATIVE); KETONES,URINE NEGATIVE (NEGATIVE); LEUKOCYTE ESTERASE,URINE NEGATIVE (NEGATIVE); NITRITE,URINE NEGATIVE (NEGATIVE); PROTEIN,URINE NEGATIVE (NEGATIVE); URINE SPECIFIC GRAVITY 1.027; UROBILINOGEN,URINE NEGATIVE mg/dL (<2.0)
[2016-10-28 17:35] LABS: ALANINE AMINOTRANSFERASE 55 U/L (21-72); ALBUMIN 3.6 g/dL (3.5-5.0); ALKALINE PHOSPHATASE 115 U/L (38-126); ANION GAP 13 (5-19); ASPARTATE AMINO TRANSFERASE 57 U/L (17-59); BILIRUBIN,DIRECT 0.3 mg/dL (0.0-0.4); BILIRUBIN,TOTAL 0.3 mg/dL (0.2-1.3); BLOOD UREA NITROGEN 22 mg/dL (7-20); CALCIUM 8.7 mg/dL (8.4-10.2); CARBON DIOXIDE 19 mmol/L (22-30); CHLORIDE 95 mmol/L (98-107); CREATININE RESULT 0.78 mg/dL (0.52-1.25); LIPASE 769.5 U/L (23-300); SODIUM 126.5 mmol/L (137-145); TOTAL PROTEIN 6.1 g/dL (6.3-8.2)
[2016-10-28 17:38] LABS: ABSOLUTE BASOPHILS # (AUTO) 0.1 10^3/uL (0.0-0.2); ABSOLUTE EOSINOPHILS # (AUTO) 0.1 10^3/uL (0.0-0.6); ABSOLUTE LYMPHOCYTES (AUTO) 1.4 10^3/uL (0.5-4.7); ABSOLUTE MONOCYTES (AUTO) 0.5 10^3/uL (0.1-1.4); ABSOLUTE NEUT (AUTO) 3.8 10^3/uL (1.7-8.2); BASOPHILS % (AUTO) 1.5 % (0-2); EOSINOPHILS % (AUTO) 2.2 % (0-6); HEMATOCRIT 29.6 % (37.9-51.0); HEMOGLOBIN 9.4 g/dL (13.5-17.0); HGB HCT DIFFERENCE -1.4; MEAN CORPUSCULAR HEMOGLOBIN 26.9 pg (27.0-33.4); MEAN CORPUSCULAR HGB CONC 31.8 g/dL (32.0-36.0); RED CELL DISTRIBUTION WIDTH 18.8 % (11.5-14.0); SEGMENTED NEUTROPHILS % (AUTO) 64.3 % (42-78); WHITE BLOOD COUNT 5.9 10^3/uL (4.0-10.5)
[2016-10-28 17:45] LABS: GLUCOSE 863 mg/dL (75-110)
[2016-10-28 17:46] LABS: MEAN CORPUSCULAR VOLUME 85 fl (80-97)
[2016-10-28] MEDS ORDERED: NORMAL SALINE 1000 ML 1,000 ML IV ONE (18:07)
[2016-10-28] MEDS ORDERED: INSULIN REG, HUMAN 100 UNIT/ML 3 ML VIAL (PYX) IV ONE (18:10)
[2016-10-28] MEDS ORDERED: INSULIN REG, HUMAN 100 UNIT/ML 3 ML VIAL (PYX) ONE (18:22)
--- NOTE | 2016-10-28 18:46 | ER Document Report ---
ED Blood Sugar Problem - General Chief Complaint: High Blood Sugar Stated Complaint: HYPERGLYCEMIA Time Seen by Provider: 10/28/16 16:49 Notes: Patient is an insulin-dependent diabetic who says he ran out of his insulin and took his last dose about 4 PM yesterday. Today, he is having abdominal pains and is vomited a couple times. He has a dry mouth. Also having some diarrhea. Not aware of any fever, but does have chills. Patient has had pancreatitis previously. He was diagnosed with the diabetes about 3 or 4 years ago. Patient also has a history of hypertension, high cholesterol. Only surgery is on his back. TRAVEL OUTSIDE OF THE [place] IN LAST 30 DAYS: No - Related Data Allergies/Adverse Reactions: No Known Allergies Allergy (Verified 09/23/16 08:31) Past Medical History - Social History Smoking Status: Current Every Day Smoker Chew tobacco use (# tins/day): - 6 Frequency of alcohol use: None Drug Abuse: None Family History: Reviewed & Not Pertinent, DM, Hyperlipidemia, Hypertension - Past Medical History Cardiac Medical History: Reports: Hx Hypercholesterolemia, Hx Hypertension Endocrine Medical History: Reports: Hx Diabetes Mellitus Type 1 - 4 years, Hx Diabetes Mellitus Type 2 Psychiatric Medical History: Reports: Hx Depression Past Surgical History: Reports: Hx Orthopedic Surgery - back - Immunizations Hx Diphtheria, Pertussis, Tetanus Vaccination: Yes Hx Pneumococcal Vaccination: 11/09/11 Review of Systems - Review of Systems Notes: REVIEW OF SYSTEMS: CONSTITUTIONAL : Denies fever. Says he has had some chills, however. EENT: Denies eye, ear, nose or mouth or throat pain or other symptoms. CARDIOVASCULAR: Denies chest pain. RESPIRATORY: Denies cough, chest congestion, or shortness of breath. GASTROINTESTINAL: See HPI. GENITOURINARY: Denies difficulty or painful urinating, urinary frequency, blood in urine. MUSCULOSKELETAL: Denies back or neck pain. Denies joint pain or swelling. SKIN: Denies rash or skin lesions. NEUROLOGICAL: Denies LOC or altered mental status. Denies headache. Denies sensory loss or motor deficits. ALL OTHER SYSTEMS REVIEWED AND NEGATIVE. Physical Exam - Vital signs Vitals: Resp Pulse Ox 13 99 10/28/16 16:54 10/28/16 16:54 Interpretation: Normal - Notes Notes: PHYSICAL EXAMINATION: GENERAL: Well-appearing, in no acute distress. Vital signs are all normal. HEAD: Atraumatic, normocephalic. ENT: oropharynx clear without exudates. Moist mucous membranes. NECK: Normal range of motion, supple. LUNGS: Breath sounds clear and equal bilaterally. HEART: Regular rate and rhythm without murmurs. ABDOMEN: S very tender in the mid abdomen, in particular in the epigastric region. Perhaps a slight amount of guarding. No rebound. No masses felt. BACK: No tenderness throughout entire back. EXTREMITIES: Normal range of motion without pain. NEUROLOGICAL: Normal speech, normal gait. Normal sensory, motor, and reflex exams. Awake, alert, and oriented x3. Cranial nerves normal. PSYCH: Normal mood, normal affect. SKIN: Warm, dry, no rashes. Course - Re-evaluation Re-evalutation: 10/28/16 18:49 Patient was initially given a couple of liters of saline. Then he was switched to an infusion of saline at 250/h. After I received his blood sugar report of 800, I started the patient on a 2 U/h insulin drip. I have contacted Dr. Estrada , hospitalist, and we have agreed that patient will be admitted to [facility] and I will contact the night hospitalist, Dr. Echevarria. 10/28/16 19:[address] Echevarria who will admit the patient. - Vital Signs Vital signs: Temp Pulse Resp BP Pulse Ox 98.8 F 105 H 22 H 138/97 H 99 10/28/16 17:00 10/28/16 17:00 10/28/16 19:00 10/28/16 18:10 10/28/16 19:00 - Laboratory Result Diagrams: 10/28/16 17:20 10/28/16 16:50 Laboratory results interpreted by me: 10/28/16 10/28/16 10/28/16 16:50 16:50 17:20 RBC 3.50 L Hgb 9.4 L Hct 29.6 L MCH 26.9 L MCHC 31.8 L RDW 18.8 H Sodium 126.5 L Chloride 95 L Carbon Dioxide 19 L BUN 22 H Glucose 863 H* Total Protein 6.1 L Lipase 769.5 H Urine Glucose (UA) >=500 H Critical Care Note - Critical Care Note Total time excluding time spent on procedures (mins): 30 Discharge - Discharge Clinical Impression: Hyperglycemia, IDDM (insulin dependent diabetes mellitus), Acute pancreatitis without infection or necrosis Condition: Stable Disposition: ADMITTED INPATIENT Admitting Provider: Hospitalist Unit Admitted: [facility]
[2016-10-28] MEDS ORDERED: 1/2 NORMAL SALINE 1,000 ML IV PRN (19:30)
[2016-10-28] MEDS ORDERED: DEXTROSE 50%-WATER 25 GM/50 ML DISP.SYRIN IV PRN (19:30)
[2016-10-28] MEDS ORDERED: DEXTROSE 40% GEL 15 GM TUBE PO PRN ×2 (19:30)
[2016-10-28] MEDS ORDERED: NORMAL SALINE 100 ML with INSULIN REGULAR, HUMAN 100 UNIT IV PRN ×2 (19:30)
[2016-10-28] MEDS ORDERED: GLUCAGON,HUMAN RECOMB 1 MG INJ IM PRN (19:30)
[2016-10-28 20:34] LABS: ADD ON TESTING BLD IN LAB ACKNOWLEDGE
[2016-10-28 20:58] LABS: URINE BARBITURATES SCREEN NEGATIVE; URINE METHADONE SCREEN NEGATIVE; URINE OPIATES LOW NEGATIVE; URINE PHENCYCLIDINE SCREEN NEGATIVE
[2016-10-28 21:00] LABS: ANION GAP 8 (5-19); BLOOD UREA NITROGEN 17 mg/dL (7-20); CALCIUM 8.7 mg/dL (8.4-10.2); CARBON DIOXIDE 23 mmol/L (22-30); CHLORIDE 105 mmol/L (98-107); CREATININE RESULT 0.69 mg/dL (0.52-1.25); GLUCOSE 360 mg/dL (75-110); SODIUM 135.8 mmol/L (137-145)
[2016-10-28 21:03] LABS: MAGNESIUM 1.7 mg/dL (1.6-2.3)
[2016-10-28] MEDS ORDERED: ACETAMINOPHEN 325 MG TABLET PO PRN (21:12)
[2016-10-28 21:46] LABS: POTASSIUM 3.9 mmol/L (3.6-5.0)
[2016-10-28] MEDS ORDERED: POTASSI CL 20 MEQ/50 ML RIDER 20 MEQ/50 ML RTUPB IV ONE (21:50)
[2016-10-28] MEDS ORDERED: NICOTINE 7 MG/24 HR PATCH.TD24 TD PRN (21:56)
--- NOTE | 2016-10-28 21:58 | PDOC H&P ---
History of Present Illness Admission Date/PCP: 10/28/16 20:00 [facility] Patient complains of: Elevated blood sugar, abdominal pain, nausea and vomiting History of Present Illness: CHESTER CMKEON is a 36 year old -Turkish male with underlying type 1 diabetes mellitus who presents to the emergency room for evaluation of above complaints. Patient has been discussed with emergency room physician who evaluated the patient. Hospitalized on our service the through the of this month with discharge diagnoses including pancreatitis diabetic ketoacidosis, and melena, with upper endoscopy revealing gastritis. Patient states the abdominal pain, which he describes as a combination of sharp and cramping, mostly epigastric, radiating to his back, has never really completely resolved since that hospital stay. multiple episodes of nausea and vomiting. Occasional coffee ground emesis. Chronic diarrhea; 6 episodes today. Black "specks" in the stool today. No recent antibiotic use. No fever; questionable chills. Ran out of his insulin approximately 24 hours ago. Denies any "sore spots" anywhere on his body. Dictation via voice recognition software. Laboratory results are listed in [employer] and are reviewed. X-ray acute abdominal series pending. EKG reviewed. Social history/personal habits: . Has children. 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 Quarter pack of cigarettes a day. Occasional marijuana use. No alcohol use. No known drug allergies. Home medications initially autopopulated into [employer] may not accurately reflect patient's true medications, dosages, and/or frequencies. weed science research technician has reconciled medications. REVIEW OF SYSTEMS: Constitutional: See history and present illness. Eyes: No vision complaints. ENT: No swallowing problems or complaints. Denies hearing loss. Pulmonary: No current complaints. Cardiovascular: No current complaints, including chest pain. Gastrointestinal: See history and present illness. Skin: No current complaints, including rashes. Hematologic: Denies easy bruising. Neurologic: No current complaints, including numbness or tingling. Musculoskeletal: No current or chronic joint complaints, such as arthritis. Psychiatric: Mild anxiety and depression. Denies suicidal or homicidal ideation. Endocrine: Polyuria. Genitourinary: No current complaints, including dysuria. PHYSICAL EXAMINATION: Blood pressure 132/88. Pulse 86 and regular. 100% saturation on room air. Respirations are 14 and unlabored. 5 feet 7 inches tall. 63.6 kg. BMI 22 kg/m . Temperature 98.8. Thin otherwise well-developed -Turkish male appearing approximately stated age. Appears not to feel very well. Perhaps slightly fatigued. Otherwise, awake alert and cooperative. Skin is warm and dry. No grossly obvious evidence of rash in areas of skin examined. No subcutaneous nodules palpated. ENT: Hearing grossly normal to normal conversation. Tongue midline on protrusion pink and slightly tacky. Eyes: No scleral icterus. Pupils equal and reactive to light at 4 mm. [place] conjunctivae. Neck is supple and nontender to gentle active range of motion and palpation. Midline trachea. No palpable thyroid nodule mass enlargement or tenderness. Lymphatic: No palpable cervical or clavicular nodes. Neck and lymphatic exams limited by patient body habitus. Psychiatric: Reasonable insight into acute and chronic medical issues. Oriented to time location and why here. Lungs: Auscultation reveals clear and equal breath sounds bilaterally. No use of accessory respiratory muscles. Cardiovascular: Heart regular rate and rhythm, without gallop murmur or rub. No carotid or abdominal aortic bruits. No ankle or pedal edema. Palpable dorsalis pedis pulses. Abdomen:soft slightly distended with positive bowel sounds. Mild diffuse tenderness, without evidence of guarding or peritoneal signs. Unable to adequately evaluate abdomen for masses or organomegaly due to distention and discomfort. Extremities: Feet are warm and dry. Mild bilateral calf tenderness to compression; no evidence of venous cord. No grossly obvious visual evidence of calf swelling. Gentle manipulation of lower extremities fails to reveal any obvious evidence of injury or instability to knees hips or ankles. Neurologic: Moves upper extremities grossly normally. Patellar reflexes absent. Absent Babinski. Light touch is intact at feet. Dorsiflexion and plantarflexion of feet 5 / 5 and symmetric. Past Medical History Cardiac Medical History: Reports: Hyperlipidema - On no medication for same., Hypertension - Taken off medication for same. Denies: Atrial Fibrillation, Congestive Heart Failure, Coronary Artery Disease, Myocardial Infarction, Pulmonary Embolism Pulmonary Medical History: Denies: Asthma, Chronic Obstructive Pulmonary Disease (COPD), Sleep Apnea EENT Medical History: Denies: Eyes, Ears, Throat Neurological Medical History: Denies: Hemorrhagic CVA, Ischemic CVA, Seizures Endocrine Medical History: Reports: Diabetes Mellitus Type 1 - 4 years Denies: Diabetes Mellitus Type 2, Hyperthyroidism, Hypothyroidism Renal/ Medical History: Reports: None GI Medical History: Reports: Gastroesophageal Reflux Disease, Other - Gastritis on upper endoscopy, October 2016 Denies: Cirrhosis, Hepatitis, Peptic Ulcer Disease Musculoskeltal Medical History: Denies: Arthritis Skin Medical History: Reports: None Psychiatric Medical History: Reports: Depression, General Anxiety Disorder, Substance Abuse, Tobacco Dependency Denies: Alcohol Dependency Infectious Medical History: Denies: Hepatitis B, Hepatitis C Past Surgical History Past Surgical History: Reports: Orthopedic Surgery - back Social History Information Source: Patient, Emergency Med Personnel, [facility] Records Smoking Status: Current Every Day Smoker Frequency of Alcohol Use: None Hx Recreational Drug Use: Yes Drugs: Marijuana Hx Prescription Drug Abuse: No - Advance Directive Resuscitation Status: Full Code Surrogate healthcare decision maker:: Family History Family History: Reviewed & Not Pertinent, DM, Hyperlipidemia, Hypertension Parental Family History Reviewed: Yes - Father diabetic. Mother with hypertension and hyperlipidemia. Children Family History Reviewed: Yes - Healthy Sibling(s) Family History Reviewed.: Yes Medication/Allergy Home Medications: RX: Insulin Aspart [Novolog Insulin (Aspart) 100 unit/mL] 0 unit SUBCUT .SLIDING SCALE MEALS 10/18/16 RX: Insulin Glargine,Hum.rec.anlog [Lantus] 30 unit SQ QAM 10/18/16 RX: Insulin Glargine,Hum.rec.anlog [Lantus] 30 unit SQ QPM 10/18/16 Promethazine HCl [Phenergan 25 mg Tablet] 25 mg PO Q6HP PRN #30 tablet 11/05/16 RX: Ferrous Sulfate [Feosol 325 mg Tablet] 325 mg PO DAILY 30 Days #30 tablet RX: Omeprazole Magnesium [Prilosec Otc] 20 mg PO DAILY 30 Days #30 tablet. RX: Oxycodone HCl 5 mg PO Q4 PRN #30 capsule 11/05/16 Allergies/Adverse Reactions: No Known Allergies Allergy (Verified 09/23/16 08:31) Physical Exam Vital Signs: Temp Pulse Resp BP Pulse Ox 98.8 F 105 H 17 104/67 99 10/28/16 17:00 10/28/16 17:00 10/28/16 21:01 10/28/16 21:01 10/28/16 21:01 Results Laboratory Results: 10/28/16 20:20 Magnesium 1.7 Assessment & Plan - Diagnosis (1) Anemia Qualifiers: Anemia type: unspecified type Qualified Code(s): D64.9 - Anemia, unspecified Is this a current diagnosis for this admission?: Yes Plan: Follow-up CBC with differential. No need for transfusion at present time. (2) Tobacco dependency Is this a current diagnosis for this admission?: Yes Plan: As needed nicotine patch. (3) Bilateral calf pain Is this a current diagnosis for this admission?: Yes Plan: Venous Doppler study obtained; negative preliminary report per tech. Final report from Dr. Abdalla pending. (4) DKA, type 1 Qualifiers: Diabetes mellitus complication detail: without coma Qualified Code(s): E10.10 - Type 1 diabetes mellitus with ketoacidosis without coma Is this a current diagnosis for this admission?: Yes Plan: Patient will be admitted under DKA protocol. Insulin drip. Vigorous fluid hydration. Q 4 hours chemistry 7. Hourly Accu-Cheks. Addition of dextrose to intravenous fluid once serum glucose and/or Accu-Cheks 275 or less. Parenteral Protonix. Patient is full code. I have strongly encouraged patient not to get out of bed without notifying staff , to avoid a fall with injury. Knee high SCDs for DVT prophylaxis, along with subcutaneous Lovenox. Impression and plans were discussed with patient , who concurs. Time spent in evaluation and management of patient: 78 critical care minutes (5) Diarrhea Qualifiers: Diarrhea type: unspecified type Qualified Code(s): R19.7 - Diarrhea, unspecified Is this a current diagnosis for this admission?: Yes Plan: Chronic problem for patient. Stool for C. difficile, occult blood, culture and sensitivity. (6) Pancreatitis Qualifiers: Chronicity: acute Pancreatitis type: unspecified pancreatitis type Acute pancreatitis complication: unspecified Qualified Code(s): K85.90 - Acute pancreatitis without necrosis or infection, unspecified Is this a current diagnosis for this admission?: Yes Plan: Ice chips only. IV fluid. Pain control. Lipid panel. Acute abdominal series. - Time Critical Time spent with patient: 35 or more minutes Medications reviewed and adjusted accordingly: Yes Anticipated discharge: Home Within: within 72 hours - Inpatient Certification Based on my medical assessment, after consideration of the patient's comorbidities, presenting symptoms, or acuity I expect that the services needed warrant INPATIENT care.: Yes I certify that my determination is in accordance with my understanding of Medicare's requirements for reasonable and necessary INPATIENT services [42 CFR 412.3e].: Yes Medical Necessity: Need Close Monitoring Due to Risk of Patient Decompensation, Need For IV Fluids, Need For Continuous Telemetry Monitoring, Need for Pain Control, Risk of Diagnosis Which Will Require Inpatient Eval/Care/Monitoring Post Hospital Care: D/C or Transfer Summary
--- NOTE | 2016-10-28 22:09 | RADIOLOGY REPORT (SQ) ---
EXAM DESCRIPTION: ACUTE ABDOMEN SERIES COMPLETED DATE/TIME: 10/28/2016 9:59 pm REASON FOR STUDY: abd pain; dka COMPARISON: 09/26/2015 NUMBER OF VIEWS: Three views. TECHNIQUE: PA chest, supine abdomen and upright/decubitus abdomen radiographic images acquired. LIMITATIONS: None. FINDINGS: CHEST: Lungs clear of infiltrates. FREE AIR: None. No abnormal gas collections. BOWEL GAS PATTERN: Few scattered small bowel loops with air fluid levels. No distended large or small bowel loops. CALCIFICATIONS: No suspicious calcifications. HARDWARE: None in the abdomen. SOFT TISSUES: No gross mass or suggestion of organomegaly. BONES: No acute fracture. No worrisome bone lesions. OTHER: No other significant finding. IMPRESSION: NONSPECIFIC BOWEL GAS PATTERN WITHOUT EVIDENCE FOR OBSTRUCTION. TECHNICAL DOCUMENTATION: JOB ID: [id number] [employer]- All Rights Reserved
[2016-10-28] MEDS: DEXTROSE 5%-NORMAL SALINE 1,000 ML IV PRN (23:00)
[2016-10-28] MEDS: PROMETHAZINE HCL INJ 25 MG/1 ML VIAL IV PRN (23:18)
[2016-10-28] MEDS: PANTOPRAZOLE SODIUM 40 MG VIAL IV SCH (23:24)
[2016-10-28 23:58] LABS: ANION GAP 7 (5-19); BLOOD UREA NITROGEN 16 mg/dL (7-20); CALCIUM 8.5 mg/dL (8.4-10.2); CARBON DIOXIDE 22 mmol/L (22-30); CHLORIDE 110 mmol/L (98-107); CREATININE RESULT 0.63 mg/dL (0.52-1.25); GLUCOSE 138 mg/dL (75-110); POTASSIUM 3.4 mmol/L (3.6-5.0); SODIUM 138.7 mmol/L (137-145)
--- NOTE | 2016-10-29 00:45 | XCELERA REPORT ---
[address] [address] Lower Extremity Venous Evaluation Name: CHESTER MCKEON Age: 36 yrs Gender: Male : 1980 Patient Status: Inpatient Patient Location: [place] [address]^A Study Date: 10/28/2016 08:53 PM Procedure: Color flow and duplex imaging bilaterally of the veins of the lower extremities as well as the Common Femoral veins. Reason For Study: dka; bilat calf pain Ordering Physician: INDIGO COCHRAN Performed By: Aileen Ch Right Sided Venous Evaluation Normal vessel filling wall to wall, compression and augmentation as well as Colour flow down to the infrageniculate veins. Left Sided Venous Evaluation Normal vessel filling wall to wall, compression and augmentation as well as Colour flow down to the infrageniculate veins. Interpretation Summary No duplex evidence of DVT or obstruction in the bilateral lower extremities. : INDIGO COCHRAN > Gabriel Abdalla
[2016-10-29 01:06] LABS: CHOLESTEROL 153.45 mg/dL (0-200); Direct HDL 55 mg/dL (>40); TRIGLYCERIDES 67 mg/dL (<150)
[2016-10-29] MEDS: POTASSI CL 20 MEQ/50 ML RIDER 20 MEQ/50 ML RTUPB IV SCH ×2 (01:16→03:41)
[2016-10-29 01:17] LABS: DIRECT LDL 90 mg/dL (<100)
[2016-10-29] MEDS: DEXTROSE 5%-NORMAL SALINE 1,000 ML IV PRN ×6 (02:29→20:35)
[2016-10-29] MEDS: MORPHINE SULFATE 10 MG/ML INJ IV PRN ×5 (03:28→20:39)
[2016-10-29 03:34] LABS: ABSOLUTE BASOPHILS # (AUTO) 0.1 10^3/uL (0.0-0.2); ABSOLUTE EOSINOPHILS # (AUTO) 0.3 10^3/uL (0.0-0.6); ABSOLUTE LYMPHOCYTES (AUTO) 2.8 10^3/uL (0.5-4.7); ABSOLUTE MONOCYTES (AUTO) 0.7 10^3/uL (0.1-1.4); ABSOLUTE NEUT (AUTO) 2.5 10^3/uL (1.7-8.2); BASOPHILS % (AUTO) 1.3 % (0-2); EOSINOPHILS % (AUTO) 4.1 % (0-6); HEMATOCRIT 28.6 % (37.9-51.0); HEMOGLOBIN 9.5 g/dL (13.5-17.0); HGB HCT DIFFERENCE -0.1; LYMPHOCYTES % (AUTO) 44.2 % (13-45); MEAN CORPUSCULAR HGB CONC 33.3 g/dL (32.0-36.0); MONOCYTES % (AUTO) 10.3 % (3-13); RED BLOOD COUNT 3.52 10^6/uL (4.35-5.55); RED CELL DISTRIBUTION WIDTH 18.7 % (11.5-14.0); SEGMENTED NEUTROPHILS % (AUTO) 40.1 % (42-78); WHITE BLOOD COUNT 6.3 10^3/uL (4.0-10.5)
[2016-10-29 03:45] LABS: ANION GAP 8 (5-19); BLOOD UREA NITROGEN 15 mg/dL (7-20); CALCIUM 8.1 mg/dL (8.4-10.2); CARBON DIOXIDE 21 mmol/L (22-30); CHLORIDE 112 mmol/L (98-107); CREATININE RESULT 0.62 mg/dL (0.52-1.25); GLUCOSE 117 mg/dL (75-110); POTASSIUM 3.7 mmol/L (3.6-5.0); SODIUM 140.7 mmol/L (137-145)
[2016-10-29 03:47] LABS: MEAN CORPUSCULAR VOLUME 81 fl (80-97)
--- NOTE | 2016-10-29 07:27 | EKG REPORT ---
SEVERITY:- NORMAL ECG - SINUS RHYTHM : Confirmed by: Juan Pablo Holm MD 29-Oct-2016 07:26:32
[2016-10-29] MEDS: PROMETHAZINE HCL INJ 25 MG/1 ML VIAL IV PRN ×2 (08:12→15:18)
[2016-10-29 09:20] LABS: ANION GAP 9 (5-19); BLOOD UREA NITROGEN 13 mg/dL (7-20); CALCIUM 8.1 mg/dL (8.4-10.2); CARBON DIOXIDE 18 mmol/L (22-30); CHLORIDE 113 mmol/L (98-107); CREATININE RESULT 0.58 mg/dL (0.52-1.25); GLUCOSE 134 mg/dL (75-110); POTASSIUM 3.8 mmol/L (3.6-5.0); SODIUM 139.6 mmol/L (137-145)
[2016-10-29] MEDS: PANTOPRAZOLE SODIUM 40 MG VIAL IV SCH ×2 (09:21→21:21)
[2016-10-29] MEDS: ENOXAPARIN SODIUM INJ 40 MG/0.4 ML DISP.SYRIN SUBCUT SCH (09:22)
[2016-10-29 12:18] LABS: ANION GAP 5 (5-19); BLOOD UREA NITROGEN 11 mg/dL (7-20); CARBON DIOXIDE 20 mmol/L (22-30); CHLORIDE 112 mmol/L (98-107); CREATININE RESULT 0.55 mg/dL (0.52-1.25); GLUCOSE 211 mg/dL (75-110); POTASSIUM 3.9 mmol/L (3.6-5.0); SODIUM 137.3 mmol/L (137-145)
--- NOTE | 2016-10-29 12:56 | PDOC PROGRESS REPORT ---
Subjective Progress Note for:: 10/29/16 Subjective:: Pt states that his abd is hurting. Nursing states that pt has been doing ok. Physical Exam Vital Signs: Temp Pulse Resp BP Pulse Ox 97.8 F 78 18 114/79 99 10/29/16 11:17 10/29/16 11:17 10/29/16 11:17 10/29/16 11:17 10/29/16 11:17 Intake & Output 10/28/16 10/29/16 10/30/16 06:59 06:59 06:59 Intake Total 2922 Output Total 350 Balance 2572 Weight 70.2 kg General appearance: PRESENT: no acute distress, well-developed, well-nourished Head exam: PRESENT: atraumatic, normocephalic Eye exam: PRESENT: conjunctiva pink, EOMI. ABSENT: scleral icterus Ear exam: PRESENT: normal external ear exam Mouth exam: PRESENT: moist, tongue midline Neck exam: ABSENT: carotid bruit, JVD, lymphadenopathy, thyromegaly Respiratory exam: PRESENT: clear to auscultation alfonso. ABSENT: rales, rhonchi, wheezes Cardiovascular exam: PRESENT: RRR. ABSENT: diastolic murmur, rubs, systolic murmur Pulses: PRESENT: normal dorsalis pedis pul Vascular exam: PRESENT: normal capillary refill GI/Abdominal exam: PRESENT: tenderness - + diffuse tenderness to palpation. Rectal exam: PRESENT: deferred Extremities exam: PRESENT: full ROM. ABSENT: calf tenderness, clubbing, pedal edema Musculoskeletal exam: PRESENT: full ROM Neurological exam: PRESENT: alert, awake, oriented to person, oriented to place , oriented to time, oriented to situation, CN II-XII grossly intact. ABSENT: motor sensory deficit Psychiatric exam: PRESENT: appropriate affect, normal mood. ABSENT: homicidal ideation, suicidal ideation Skin exam: PRESENT: dry, intact, warm. ABSENT: cyanosis, rash Results Laboratory Results: 10/29/16 03:24 10/29/16 11:41 10/28/16 10/28/16 10/29/16 23:40 23:40 03:24 WBC RBC Hgb Hct MCV MCH MCHC RDW Plt Count Seg Neutrophils % Lymphocytes % Monocytes % Eosinophils % Basophils % Absolute Neutrophils Absolute Lymphocytes Absolute Monocytes Absolute Eosinophils Absolute Basophils Sodium 138.7 140.7 Potassium 3.4 L 3.7 Chloride 110 H 112 H Carbon Dioxide 22 21 L Anion Gap 7 8 BUN 16 15 Creatinine 0.63 0.62 Est GFR ( Amer) > 60 > 60 Est GFR (Non-Af Amer) > 60 > 60 Glucose 138 H 117 H Calcium 8.5 8.1 L Triglycerides 67 Cholesterol 153.45 LDL Cholesterol Direct 90 VLDL Cholesterol 13.0 HDL Cholesterol 55 Stool Occult Blood 10/29/16 10/29/16 10/29/16 03:24 03:54 07:57 WBC 6.3 RBC 3.52 L Hgb 9.5 L Hct 28.6 L MCV 81 D MCH 27.0 MCHC 33.3 RDW 18.7 H Plt Count 209 Seg Neutrophils % 40.1 L Lymphocytes % 44.2 Monocytes % 10.3 Eosinophils % 4.1 Basophils % 1.3 Absolute Neutrophils 2.5 Absolute Lymphocytes 2.8 Absolute Monocytes 0.7 Absolute Eosinophils 0.3 Absolute Basophils 0.1 Sodium 139.6 Potassium 3.8 Chloride 113 H Carbon Dioxide 18 L Anion Gap 9 BUN 13 Creatinine 0.58 Est GFR ( Amer) > 60 Est GFR (Non-Af Amer) > 60 Glucose 134 H Calcium 8.1 L Triglycerides Cholesterol LDL Cholesterol Direct VLDL Cholesterol HDL Cholesterol Stool Occult Blood POSITIVE 10/29/16 11:41 WBC RBC Hgb Hct MCV MCH MCHC RDW Plt Count Seg Neutrophils % Lymphocytes % Monocytes % Eosinophils % Basophils % Absolute Neutrophils Absolute Lymphocytes Absolute Monocytes Absolute Eosinophils Absolute Basophils Sodium 137.3 Potassium 3.9 Chloride 112 H Carbon Dioxide 20 L Anion Gap 5 BUN 11 Creatinine 0.55 Est GFR ( Amer) > 60 Est GFR (Non-Af Amer) > 60 Glucose 211 H Calcium 8.0 L Triglycerides Cholesterol LDL Cholesterol Direct VLDL Cholesterol HDL Cholesterol Stool Occult Blood Impressions: Acute Abdomen Series 10/28/16 00:00 IMPRESSION: NONSPECIFIC BOWEL GAS PATTERN WITHOUT EVIDENCE FOR OBSTRUCTION. Assessment & Plan - Diagnosis (1) Diabetic ketoacidosis Qualifiers: Diabetes mellitus type: type 1 Diabetes mellitus complication detail: without coma Qualified Code(s): E10.10 - Type 1 diabetes mellitus with ketoacidosis without coma Is this a current diagnosis for this admission?: Yes Plan: Will continue insulin drip. Will check UA. (2) Dehydration Is this a current diagnosis for this admission?: Yes Plan: Will give IVF. (3) Pancreatitis, acute Qualifiers: Acute pancreatitis complication: unspecified Is this a current diagnosis for this admission?: Yes Plan: NPO. (4) Tobacco abuse Is this a current diagnosis for this admission?: Yes Plan: Encourage stop smoking. (5) DVT prophylaxis Is this a current diagnosis for this admission?: Yes Plan: Lovenox. - Time Time Spent with patient: 15-24 minutes
[2016-10-29] MEDS ORDERED: ACETAMINOPHEN 325 MG TABLET PO PRN (14:30)
[2016-10-29 15:22] LABS: APPEARANCE,URINE CLEAR; BILIRUBIN,URINE NEGATIVE (NEGATIVE); GLUCOSE, URINE >=500 mg/dL (NEGATIVE); KETONES,URINE NEGATIVE (NEGATIVE); LEUKOCYTE ESTERASE,URINE NEGATIVE (NEGATIVE); NITRITE,URINE NEGATIVE (NEGATIVE); PROTEIN,URINE NEGATIVE (NEGATIVE); URINE SPECIFIC GRAVITY 1.014; UROBILINOGEN,URINE NEGATIVE mg/dL (<2.0)
[2016-10-29 16:39] LABS: ANION GAP 6 (5-19); BLOOD UREA NITROGEN 10 mg/dL (7-20); CALCIUM 8.4 mg/dL (8.4-10.2); CARBON DIOXIDE 20 mmol/L (22-30); CHLORIDE 112 mmol/L (98-107); CREATININE RESULT 0.55 mg/dL (0.52-1.25); GLUCOSE 130 mg/dL (75-110); POTASSIUM 3.7 mmol/L (3.6-5.0); SODIUM 138.2 mmol/L (137-145)
[2016-10-29] MEDS: DEXTROSE 50%-WATER 25 GM/50 ML DISP.SYRIN IV PRN ×2 (18:30→21:09)
[2016-10-29 20:12] LABS: ANION GAP 8 (5-19); BLOOD UREA NITROGEN 8 mg/dL (7-20); CALCIUM 8.1 mg/dL (8.4-10.2); CARBON DIOXIDE 21 mmol/L (22-30); CHLORIDE 110 mmol/L (98-107); CREATININE RESULT 0.56 mg/dL (0.52-1.25); GLUCOSE 95 mg/dL (75-110); POTASSIUM 3.5 mmol/L (3.6-5.0); SODIUM 138.7 mmol/L (137-145)
[2016-10-29 23:50] LABS: ANION GAP 5 (5-19); BLOOD UREA NITROGEN 7 mg/dL (7-20); CALCIUM 8.2 mg/dL (8.4-10.2); CARBON DIOXIDE 21 mmol/L (22-30); CHLORIDE 112 mmol/L (98-107); CREATININE RESULT 0.55 mg/dL (0.52-1.25); GLUCOSE 72 mg/dL (75-110); POTASSIUM 3.2 mmol/L (3.6-5.0); SODIUM 138.3 mmol/L (137-145)
[2016-10-30] MEDS: DEXTROSE 50%-WATER 25 GM/50 ML DISP.SYRIN IV PRN (00:03)
[2016-10-30] MEDS: PROMETHAZINE HCL INJ 25 MG/1 ML VIAL IV PRN ×2 (01:50→15:15)
[2016-10-30] MEDS: MORPHINE SULFATE 10 MG/ML INJ IV PRN ×5 (01:50→19:23)
[2016-10-30] MEDS: DEXTROSE 5%-NORMAL SALINE 1,000 ML IV PRN ×2 (04:09→12:26)
[2016-10-30 05:22] LABS: ANION GAP 8 (5-19); BLOOD UREA NITROGEN 7 mg/dL (7-20); CALCIUM 8.1 mg/dL (8.4-10.2); CARBON DIOXIDE 21 mmol/L (22-30); CHLORIDE 111 mmol/L (98-107); CREATININE RESULT 0.56 mg/dL (0.52-1.25); GLUCOSE 62 mg/dL (75-110); POTASSIUM 3.4 mmol/L (3.6-5.0); SODIUM 140.2 mmol/L (137-145)
[2016-10-30 08:04] LABS: ANION GAP 7 (5-19); BLOOD UREA NITROGEN 6 mg/dL (7-20); CALCIUM 8.1 mg/dL (8.4-10.2); CARBON DIOXIDE 20 mmol/L (22-30); CHLORIDE 111 mmol/L (98-107); CREATININE RESULT 0.58 mg/dL (0.52-1.25); GLUCOSE 98 mg/dL (75-110); POTASSIUM 3.2 mmol/L (3.6-5.0)
[2016-10-30] MEDS: ENOXAPARIN SODIUM INJ 40 MG/0.4 ML DISP.SYRIN SUBCUT SCH (09:11)
[2016-10-30] MEDS: PANTOPRAZOLE SODIUM 40 MG VIAL IV SCH (09:33)
[2016-10-30 11:47] LABS: ANION GAP 7 (5-19); BLOOD UREA NITROGEN 5 mg/dL (7-20); CALCIUM 8.5 mg/dL (8.4-10.2); CARBON DIOXIDE 21 mmol/L (22-30); CHLORIDE 109 mmol/L (98-107); CREATININE RESULT 0.56 mg/dL (0.52-1.25); GLUCOSE 199 mg/dL (75-110); POTASSIUM 3.7 mmol/L (3.6-5.0); SODIUM 137.1 mmol/L (137-145)
--- NOTE | 2016-10-30 14:38 | PDOC PROGRESS REPORT ---
Subjective Progress Note for:: 10/30/16 Subjective:: Pt states that he is having abd pain that is 6/10. Pt states that he has chronic abd pain that is normally 5 to 7. Pt states that otherwise he would like to have something to drink. Physical Exam Vital Signs: Temp Pulse Resp BP Pulse Ox 97.7 F 76 18 120/82 100 10/30/16 11:43 10/30/16 11:43 10/30/16 11:43 10/30/16 11:43 10/30/16 11:43 Intake & Output 10/29/16 10/30/16 10/31/16 06:59 06:59 06:59 Intake Total 2922 3821 Output Total 350 1850 450 Balance 2572 1971 - Weight 70.2 kg 75.8 kg General appearance: PRESENT: no acute distress, well-developed, well-nourished Head exam: PRESENT: atraumatic, normocephalic Eye exam: PRESENT: conjunctiva pink, EOMI. ABSENT: scleral icterus Ear exam: PRESENT: normal external ear exam Mouth exam: PRESENT: moist, tongue midline Neck exam: ABSENT: carotid bruit, JVD, lymphadenopathy, thyromegaly Respiratory exam: PRESENT: clear to auscultation alfonso. ABSENT: rales, rhonchi, wheezes Pulses: PRESENT: normal dorsalis pedis pul Vascular exam: PRESENT: normal capillary refill GI/Abdominal exam: PRESENT: tenderness - + diffuse abd tenderness, + midepigastric tenderness. Rectal exam: PRESENT: deferred Extremities exam: PRESENT: full ROM. ABSENT: calf tenderness, clubbing, pedal edema Neurological exam: PRESENT: alert, awake, oriented to person, oriented to place , oriented to time, oriented to situation, CN II-XII grossly intact. ABSENT: motor sensory deficit Psychiatric exam: PRESENT: appropriate affect, normal mood. ABSENT: homicidal ideation, suicidal ideation Skin exam: PRESENT: dry, intact, warm. ABSENT: cyanosis, rash Results Laboratory Results: 10/29/16 03:24 10/30/16 11:04 10/29/16 10/29/16 10/29/16 15:00 15:40 19:25 Sodium 138.2 138.7 Potassium 3.7 3.5 L Chloride 112 H 110 H Carbon Dioxide 20 L 21 L Anion Gap 6 8 BUN 10 8 Creatinine 0.55 0.56 Est GFR ( Amer) > 60 > 60 Est GFR (Non-Af Amer) > 60 > 60 Glucose 130 H 95 Calcium 8.4 8.1 L Urine Color YELLOW Urine Appearance CLEAR Urine pH 5.0 Ur Specific [place] 1.014 Urine Protein NEGATIVE Urine Glucose (UA) >=500 H Urine Ketones NEGATIVE Urine Blood NEGATIVE Urine Nitrite NEGATIVE Ur Leukocyte Esterase NEGATIVE Urine WBC (Auto) 1 Urine RBC (Auto) 2 10/29/16 10/30/16 10/30/16 23:28 03:27 07:31 Sodium 138.3 140.2 138.0 Potassium 3.2 L 3.4 L 3.2 L Chloride 112 H 111 H 111 H Carbon Dioxide 21 L 21 L 20 L Anion Gap 5 8 7 BUN 7 7 6 L Creatinine 0.55 0.56 0.58 Est GFR ( Amer) > 60 > 60 > 60 Est GFR (Non-Af Amer) > 60 > 60 > 60 Glucose 72 L 62 L 98 Calcium 8.2 L 8.1 L 8.1 L Urine Color Urine Appearance Urine pH Ur Specific [place] Urine Protein Urine Glucose (UA) Urine Ketones Urine Blood Urine Nitrite Ur Leukocyte Esterase Urine WBC (Auto) Urine RBC (Auto) 10/30/16 11:04 Sodium 137.1 Potassium 3.7 Chloride 109 H Carbon Dioxide 21 L Anion Gap 7 BUN 5 L Creatinine 0.56 Est GFR ( Amer) > 60 Est GFR (Non-Af Amer) > 60 Glucose 199 H Calcium 8.5 Urine Color Urine Appearance Urine pH Ur Specific [place] Urine Protein Urine Glucose (UA) Urine Ketones Urine Blood Urine Nitrite Ur Leukocyte Esterase Urine WBC (Auto) Urine RBC (Auto) Impressions: Acute Abdomen Series 10/28/16 00:00 IMPRESSION: NONSPECIFIC BOWEL GAS PATTERN WITHOUT EVIDENCE FOR OBSTRUCTION. Assessment & Plan - Diagnosis (1) Diabetic ketoacidosis Qualifiers: Diabetes mellitus type: type 1 Diabetes mellitus complication detail: without coma Qualified Code(s): E10.10 - Type 1 diabetes mellitus with ketoacidosis without coma Is this a current diagnosis for this admission?: Yes Plan: Will discontinue Insulin drip. Will place pt on SSI and scheduled insulin. (2) Hypokalemia Is this a current diagnosis for this admission?: Yes Plan: Resolved. (3) Dehydration Is this a current diagnosis for this admission?: Yes Plan: Will change fluids to NS. (4) Pancreatitis, acute Qualifiers: Acute pancreatitis complication: unspecified Is this a current diagnosis for this admission?: Yes Plan: Will try Liquids to see if pt can tolerate. (5) Tobacco abuse Is this a current diagnosis for this admission?: Yes Plan: Encourage stop smoking. (6) DVT prophylaxis Is this a current diagnosis for this admission?: Yes Plan: Lovenox. - Time Time Spent with patient: 15-24 minutes
[2016-10-30] MEDS ORDERED: DEXTROSE 50%-WATER 25 GM/50 ML DISP.SYRIN IV PRN ×2 (14:45)
[2016-10-30] MEDS ORDERED: GLUCAGON,HUMAN RECOMB 1 MG INJ IM PRN (14:45)
[2016-10-30] MEDS ORDERED: DEXTROSE 40% GEL 15 GM TUBE PO PRN ×2 (14:45)
[2016-10-30] MEDS: NORMAL SALINE 1000 ML 1,000 ML IV PRN (15:15)
[2016-10-30] MEDS: INSULIN LISPRO 100 UNIT/ML 3 ML VIAL SUBCUT PRN (17:16)
[2016-10-31] MEDS: INSULIN LISPRO 100 UNIT/ML 3 ML VIAL SUBCUT PRN ×4 (00:20→23:32)
[2016-10-31] MEDS: PANTOPRAZOLE SODIUM 40 MG VIAL IV SCH ×2 (00:20→11:43)
[2016-10-31] MEDS: MORPHINE SULFATE 10 MG/ML INJ IV PRN ×5 (00:52→21:30)
[2016-10-31] MEDS: PROMETHAZINE HCL INJ 25 MG/1 ML VIAL IV PRN ×2 (07:49→17:29)
[2016-10-31] MEDS ORDERED: INSULIN GLARGINE,HUM.REC.ANLOG 1,000 UNIT/10 ML UNIT SUBCUT SCH (08:00)
[2016-10-31] MEDS ORDERED: INSULIN LISPRO 100 UNIT/ML 3 ML VIAL SUBCUT ONE (08:45)
[2016-10-31] MEDS: ENOXAPARIN SODIUM INJ 40 MG/0.4 ML DISP.SYRIN SUBCUT SCH (11:29)
--- NOTE | 2016-10-31 12:52 | PDOC PROGRESS REPORT ---
Subjective Progress Note for:: 10/31/16 Subjective:: Pt states that he would like his pain medication increased. Pt states that he is taking sips of fluid. Physical Exam Vital Signs: Temp Pulse Resp BP Pulse Ox 98.2 F 85 16 126/76 H 98 10/31/16 07:28 10/31/16 08:00 10/31/16 07:28 10/31/16 07:28 10/31/16 07:28 Intake & Output 10/30/16 10/31/16 11/01/16 06:59 06:59 06:59 Intake Total 3821 2920 Output Total 1850 975 Balance 1970 1944 Weight 75.8 kg 73.5 kg General appearance: PRESENT: mild distress, well-developed, well-nourished Head exam: PRESENT: atraumatic, normocephalic Eye exam: PRESENT: conjunctiva pink, EOMI. ABSENT: scleral icterus Ear exam: PRESENT: normal external ear exam Mouth exam: PRESENT: moist, tongue midline Neck exam: ABSENT: carotid bruit, JVD, lymphadenopathy, thyromegaly Respiratory exam: PRESENT: clear to auscultation alfonso. ABSENT: rales, rhonchi, wheezes Cardiovascular exam: PRESENT: RRR. ABSENT: diastolic murmur, rubs, systolic murmur Pulses: PRESENT: normal dorsalis pedis pul Vascular exam: PRESENT: normal capillary refill GI/Abdominal exam: PRESENT: tenderness - +diffuse tenderness Rectal exam: PRESENT: deferred Extremities exam: PRESENT: full ROM. ABSENT: calf tenderness, clubbing, pedal edema Neurological exam: PRESENT: alert, awake, oriented to person, oriented to place , oriented to time, oriented to situation, CN II-XII grossly intact. ABSENT: motor sensory deficit Psychiatric exam: PRESENT: appropriate affect, normal mood. ABSENT: homicidal ideation, suicidal ideation Skin exam: PRESENT: dry, intact, warm. ABSENT: cyanosis, rash Results Laboratory Results: 10/29/16 03:24 10/30/16 11:04 Impressions: Acute Abdomen Series 10/28/16 00:00 IMPRESSION: NONSPECIFIC BOWEL GAS PATTERN WITHOUT EVIDENCE FOR OBSTRUCTION. Assessment & Plan - Diagnosis (1) Diabetic ketoacidosis Qualifiers: Diabetes mellitus type: type 1 Diabetes mellitus complication detail: without coma Qualified Code(s): E10.10 - Type 1 diabetes mellitus with ketoacidosis without coma Is this a current diagnosis for this admission?: Yes Plan: Will continue pt on SSI with scheduled insulin. Will place pt on Glucerna. (2) Hypokalemia Is this a current diagnosis for this admission?: Yes Plan: Resolved. (3) Dehydration Is this a current diagnosis for this admission?: Yes Plan: Will continue IVF. (4) Pancreatitis, acute Qualifiers: Acute pancreatitis complication: unspecified Is this a current diagnosis for this admission?: Yes Plan: Clear liquids. Will adjust pain medication. (5) Tobacco abuse Is this a current diagnosis for this admission?: Yes Plan: Encourage stop smoking. (6) DVT prophylaxis Is this a current diagnosis for this admission?: Yes Plan: Lovenox. - Time Time Spent with patient: 15-24 minutes
[2016-10-31] MEDS: NORMAL SALINE 1000 ML 1,000 ML IV PRN (19:47)
[2016-11-01] MEDS: MORPHINE SULFATE 10 MG/ML INJ IV PRN ×7 (01:00→23:36)
[2016-11-01] MEDS: PROMETHAZINE HCL INJ 25 MG/1 ML VIAL IV PRN ×2 (02:26→18:19)
[2016-11-01] MEDS: NORMAL SALINE 1000 ML 1,000 ML IV PRN ×2 (05:35→18:18)
[2016-11-01 06:19] LABS: ANION GAP 11 (5-19); BLOOD UREA NITROGEN 4 mg/dL (7-20); CARBON DIOXIDE 20 mmol/L (22-30); CHLORIDE 110 mmol/L (98-107); CREATININE RESULT 0.73 mg/dL (0.52-1.25); GLUCOSE 247 mg/dL (75-110); POTASSIUM 4.1 mmol/L (3.6-5.0); SODIUM 140.6 mmol/L (137-145)
[2016-11-01] MEDS ORDERED: INSULIN GLARGINE,HUM.REC.ANLOG 1,000 UNIT/10 ML UNIT SUBCUT SCH (08:00)
[2016-11-01] MEDS: INSULIN GLARGINE,HUM.REC.ANLOG 300 UNIT/3 ML INSULN.PEN SUBCUT SCH (08:45)
[2016-11-01] MEDS: INSULIN LISPRO 100 UNIT/ML 3 ML VIAL SUBCUT PRN ×3 (08:45→21:19)
[2016-11-01] MEDS: ENOXAPARIN SODIUM INJ 40 MG/0.4 ML DISP.SYRIN SUBCUT SCH (09:19)
--- NOTE | 2016-11-01 15:54 | PDOC PROGRESS REPORT ---
Subjective Progress Note for:: 11/01/16 Subjective:: Patient seen earlier this morning who states that he is still having abdominal pain. Patient states that at home he notices that he becomes full after having a few bites of food. Patient also states that when he eats beyond his limit he developed severe abdominal pain. Patient states that he would like to try regular food today. Physical Exam Vital Signs: Temp Pulse Resp BP Pulse Ox 97.5 F 84 16 138/86 H 100 11/01/16 11:39 11/01/16 11:39 11/01/16 11:39 11/01/16 11:39 11/01/16 11:39 Intake & Output 10/31/16 11/01/16 11/02/16 06:59 06:59 06:59 Intake Total 2920 4837 696 Output Total 975 700 600 Balance 1945 4137 96 Weight 73.5 kg 72.7 kg General appearance: PRESENT: no acute distress, well-developed, well-nourished Head exam: PRESENT: atraumatic, normocephalic Eye exam: PRESENT: conjunctiva pink, EOMI. ABSENT: scleral icterus Ear exam: PRESENT: normal external ear exam Mouth exam: PRESENT: moist, tongue midline Neck exam: ABSENT: carotid bruit, JVD, lymphadenopathy, thyromegaly Respiratory exam: PRESENT: clear to auscultation alfonso. ABSENT: rales, rhonchi, wheezes Pulses: PRESENT: normal dorsalis pedis pul GI/Abdominal exam: PRESENT: other - Diffuse tenderness in all quadrants, positive for bowel sounds Rectal exam: PRESENT: deferred Extremities exam: PRESENT: full ROM. ABSENT: calf tenderness, clubbing, pedal edema Neurological exam: PRESENT: alert, awake, oriented to person, oriented to place , oriented to time, oriented to situation, CN II-XII grossly intact. ABSENT: motor sensory deficit Psychiatric exam: PRESENT: appropriate affect, normal mood. ABSENT: homicidal ideation, suicidal ideation Skin exam: PRESENT: dry, intact, warm. ABSENT: cyanosis, rash Results Laboratory Results: 10/29/16 03:24 11/01/16 05:23 11/01/16 05:23 Sodium 140.6 Potassium 4.1 Chloride 110 H Carbon Dioxide 20 L Anion Gap 11 BUN 4 L Creatinine 0.73 Est GFR ( Amer) > 60 Est GFR (Non-Af Amer) > 60 Glucose 247 H Calcium 9.0 Impressions: Acute Abdomen Series 10/28/16 00:00 IMPRESSION: NONSPECIFIC BOWEL GAS PATTERN WITHOUT EVIDENCE FOR OBSTRUCTION. Assessment & Plan - Diagnosis (1) Diabetic ketoacidosis Qualifiers: Diabetes mellitus type: type 1 Diabetes mellitus complication detail: without coma Qualified Code(s): E10.10 - Type 1 diabetes mellitus with ketoacidosis without coma Is this a current diagnosis for this admission?: Yes Plan: Will continue pt on SSI with scheduled insulin. Glucerna. (2) Gastroparesis Is this a current diagnosis for this admission?: Yes Plan: Suspect gastroparesis: We will place patient on Reglan to see if this helps with abdominal pain. (3) Hypokalemia Is this a current diagnosis for this admission?: Yes Plan: Resolved. (4) Metabolic acidosis Is this a current diagnosis for this admission?: Yes Plan: Secondary to DM Type 1: Will check UA. (5) Dehydration Is this a current diagnosis for this admission?: Yes Plan: Will continue IVF. (6) Pancreatitis, acute Qualifiers: Acute pancreatitis complication: unspecified Is this a current diagnosis for this admission?: Yes Plan: Clear liquids. Pain medication adjusted. (7) Tobacco abuse Is this a current diagnosis for this admission?: Yes Plan: Encourage stop smoking. (8) DVT prophylaxis Is this a current diagnosis for this admission?: Yes Plan: Lovenox. - Time Time Spent with patient: 15-24 minutes Anticipated discharge: Home
[2016-11-01] MEDS: METOCLOPRAMIDE HCL 10 MG TABLET PO SCH ×2 (16:01→21:19)
[2016-11-02 02:12] LABS: APPEARANCE,URINE CLEAR; BILIRUBIN,URINE NEGATIVE (NEGATIVE); GLUCOSE, URINE >=500 mg/dL (NEGATIVE); KETONES,URINE NEGATIVE (NEGATIVE); LEUKOCYTE ESTERASE,URINE NEGATIVE (NEGATIVE); NITRITE,URINE NEGATIVE (NEGATIVE); PROTEIN,URINE NEGATIVE (NEGATIVE); URINE SPECIFIC GRAVITY 1.011; UROBILINOGEN,URINE NEGATIVE mg/dL (<2.0)
[2016-11-02] MEDS: MORPHINE SULFATE 10 MG/ML INJ IV PRN ×5 (03:41→20:47)
[2016-11-02] MEDS: PROMETHAZINE HCL INJ 25 MG/1 ML VIAL IV PRN ×3 (03:41→20:48)
[2016-11-02] MEDS: NORMAL SALINE 1000 ML 1,000 ML IV PRN ×2 (03:49→15:05)
[2016-11-02 05:58] LABS: ABSOLUTE BASOPHILS # (AUTO) 0.1 10^3/uL (0.0-0.2); ABSOLUTE EOSINOPHILS # (AUTO) 0.2 10^3/uL (0.0-0.6); ABSOLUTE LYMPHOCYTES (AUTO) 1.6 10^3/uL (0.5-4.7); ABSOLUTE MONOCYTES (AUTO) 0.6 10^3/uL (0.1-1.4); ABSOLUTE NEUT (AUTO) 3.2 10^3/uL (1.7-8.2); BASOPHILS % (AUTO) 1.1 % (0-2); EOSINOPHILS % (AUTO) 2.7 % (0-6); HEMATOCRIT 31.2 % (37.9-51.0); HEMOGLOBIN 10.3 g/dL (13.5-17.0); HGB HCT DIFFERENCE -0.3; LYMPHOCYTES % (AUTO) 28.9 % (13-45); MEAN CORPUSCULAR HEMOGLOBIN 26.7 pg (27.0-33.4); MEAN CORPUSCULAR HGB CONC 32.9 g/dL (32.0-36.0); MEAN CORPUSCULAR VOLUME 81 fl (80-97); MONOCYTES % (AUTO) 10.7 % (3-13); RED BLOOD COUNT 3.84 10^6/uL (4.35-5.55); RED CELL DISTRIBUTION WIDTH 18.9 % (11.5-14.0); SEGMENTED NEUTROPHILS % (AUTO) 56.6 % (42-78); WHITE BLOOD COUNT 5.6 10^3/uL (4.0-10.5)
[2016-11-02 06:05] LABS: ANION GAP 10 (5-19); BLOOD UREA NITROGEN 3 mg/dL (7-20); CALCIUM 8.9 mg/dL (8.4-10.2); CARBON DIOXIDE 24 mmol/L (22-30); CHLORIDE 108 mmol/L (98-107); CREATININE RESULT 0.63 mg/dL (0.52-1.25); GLUCOSE 215 mg/dL (75-110); POTASSIUM 3.9 mmol/L (3.6-5.0)
[2016-11-02] MEDS: INSULIN GLARGINE,HUM.REC.ANLOG 300 UNIT/3 ML INSULN.PEN SUBCUT SCH (08:11)
[2016-11-02] MEDS: INSULIN LISPRO 100 UNIT/ML 3 ML VIAL SUBCUT PRN ×4 (08:11→22:12)
[2016-11-02] MEDS: METOCLOPRAMIDE HCL 10 MG TABLET PO SCH ×4 (08:11→22:11)
[2016-11-02] MEDS: ENOXAPARIN SODIUM INJ 40 MG/0.4 ML DISP.SYRIN SUBCUT SCH (09:08)
--- NOTE | 2016-11-02 16:18 | PDOC PROGRESS REPORT ---
Subjective Progress Note for:: 11/02/16 Subjective:: Pt states that his abd pain is much improved. Pt states that he would like to eat solid foods. Physical Exam Vital Signs: Temp Pulse Resp BP Pulse Ox 97.8 F 85 18 140/89 H 100 11/02/16 12:05 11/02/16 12:05 11/02/16 12:05 11/02/16 12:05 11/02/16 12:05 Intake & Output 11/01/16 11/02/16 11/03/16 06:59 06:59 06:59 Intake Total 4837 5052 625 Output Total 700 1400 750 Balance 4137 3652 -125 Weight 72.7 kg 73.3 kg General appearance: PRESENT: no acute distress, well-developed, well-nourished Head exam: PRESENT: atraumatic, normocephalic Eye exam: PRESENT: conjunctiva pink, EOMI, PERRLA. ABSENT: scleral icterus Ear exam: PRESENT: normal external ear exam Mouth exam: PRESENT: moist, tongue midline Neck exam: ABSENT: carotid bruit, JVD, lymphadenopathy, thyromegaly Respiratory exam: PRESENT: clear to auscultation alfonso. ABSENT: rales, rhonchi, wheezes Cardiovascular exam: PRESENT: RRR. ABSENT: diastolic murmur, rubs, systolic murmur Pulses: PRESENT: normal dorsalis pedis pul Vascular exam: PRESENT: normal capillary refill GI/Abdominal exam: PRESENT: normal bowel sounds, soft. ABSENT: distended, guarding, mass, organolmegaly, rebound, tenderness Rectal exam: PRESENT: deferred Extremities exam: PRESENT: full ROM. ABSENT: calf tenderness, clubbing, pedal edema Neurological exam: PRESENT: alert, awake, oriented to person, oriented to place , oriented to time, oriented to situation, CN II-XII grossly intact. ABSENT: motor sensory deficit Psychiatric exam: PRESENT: appropriate affect, normal mood. ABSENT: homicidal ideation, suicidal ideation Skin exam: PRESENT: dry, intact, warm. ABSENT: cyanosis, rash Results Laboratory Results: 11/02/16 04:55 11/02/16 04:55 11/02/16 11/02/16 11/02/16 00:35 04:55 04:55 WBC 5.6 RBC 3.84 L Hgb 10.3 L Hct 31.2 L MCV 81 MCH 26.7 L MCHC 32.9 RDW 18.9 H Plt Count 279 Seg Neutrophils % 56.6 Lymphocytes % 28.9 Monocytes % 10.7 Eosinophils % 2.7 Basophils % 1.1 Absolute Neutrophils 3.2 Absolute Lymphocytes 1.6 Absolute Monocytes 0.6 Absolute Eosinophils 0.2 Absolute Basophils 0.1 Sodium 142.0 Potassium 3.9 Chloride 108 H Carbon Dioxide 24 Anion Gap 10 BUN 3 L Creatinine 0.63 Est GFR ( Amer) > 60 Est GFR (Non-Af Amer) > 60 Glucose 215 H Calcium 8.9 Urine Color STRAW Urine Appearance CLEAR Urine pH 5.0 Ur Specific [place] 1.011 Urine Protein NEGATIVE Urine Glucose (UA) >=500 H Urine Ketones NEGATIVE Urine Blood NEGATIVE Urine Nitrite NEGATIVE Ur Leukocyte Esterase NEGATIVE Urine WBC (Auto) 1 Impressions: Acute Abdomen Series 10/28/16 00:00 IMPRESSION: NONSPECIFIC BOWEL GAS PATTERN WITHOUT EVIDENCE FOR OBSTRUCTION. Assessment & Plan - Diagnosis (1) Diabetic ketoacidosis Qualifiers: Diabetes mellitus type: type 1 Diabetes mellitus complication detail: without coma Qualified Code(s): E10.10 - Type 1 diabetes mellitus with ketoacidosis without coma Is this a current diagnosis for this admission?: Yes Plan: Resolved. Will continue pt on SSI with scheduled insulin with increase in Long acting insulin. (2) Gastroparesis Is this a current diagnosis for this admission?: Yes Plan: Suspect gastroparesis: We will place patient on Reglan to see if this helps with abdominal pain. (3) Hypokalemia Is this a current diagnosis for this admission?: Yes Plan: Resolved. (4) Metabolic acidosis Is this a current diagnosis for this admission?: Yes Plan: Secondary to DM Type 1: Resolved (5) Dehydration Is this a current diagnosis for this admission?: Yes Plan: Will continue IVF. (6) Pancreatitis, acute Qualifiers: Acute pancreatitis complication: unspecified Is this a current diagnosis for this admission?: Yes Plan: Will advance diet and space pain medication. (7) Tobacco abuse Is this a current diagnosis for this admission?: Yes Plan: Encourage stop smoking. (8) DVT prophylaxis Is this a current diagnosis for this admission?: Yes Plan: Lovenox. - Time Time Spent with patient: 15-24 minutes
[2016-11-03] MEDS: MORPHINE SULFATE 10 MG/ML INJ IV PRN (02:55)
[2016-11-03] MEDS: NORMAL SALINE 1000 ML 1,000 ML IV PRN (03:51)
[2016-11-03 05:12] LABS: HEMATOCRIT 32.2 % (37.9-51.0); HEMOGLOBIN 10.4 g/dL (13.5-17.0); MEAN CORPUSCULAR HEMOGLOBIN 26.6 pg (27.0-33.4); MEAN CORPUSCULAR HGB CONC 32.2 g/dL (32.0-36.0); MEAN CORPUSCULAR VOLUME 83 fl (80-97); RED BLOOD COUNT 3.89 10^6/uL (4.35-5.55); RED CELL DISTRIBUTION WIDTH 18.7 % (11.5-14.0); WHITE BLOOD COUNT 6.8 10^3/uL (4.0-10.5)
[2016-11-03 06:56] LABS: ANION GAP 10 (5-19); BLOOD UREA NITROGEN 11 mg/dL (7-20); CALCIUM 9.5 mg/dL (8.4-10.2); CARBON DIOXIDE 17 mmol/L (22-30); CHLORIDE 109 mmol/L (98-107); CREATININE RESULT 1.01 mg/dL (0.52-1.25); POTASSIUM 5.1 mmol/L (3.6-5.0); SODIUM 135.5 mmol/L (137-145)
[2016-11-03 07:01] LABS: GLUCOSE 469 mg/dL (75-110)
[2016-11-03] MEDS ORDERED: NORMAL SALINE 1000 ML 1,000 ML IV PRN (07:42)
[2016-11-03] MEDS ORDERED: MAG HYDROX/AL HYDROX/SIMETH SUSP 30 ML UDCUP PO PRN (07:47)
[2016-11-03] MEDS ORDERED: LIDOCAINE 2% VISCOUS SOLN 20 ML UDCUP PO PRN (07:47)
[2016-11-03] MEDS ORDERED: METOCLOPRAMIDE HCL ORAL SOLN 10 MG/10 ML UDCUP PO PRN (07:47)
[2016-11-03] MEDS ORDERED: INSULIN GLARGINE,HUM.REC.ANLOG 1,000 UNIT/10 ML UNIT SUBCUT SCH (08:00)
[2016-11-03] MEDS: METOCLOPRAMIDE HCL 10 MG TABLET PO SCH ×4 (08:05→21:15)
[2016-11-03] MEDS ORDERED: LANSOPRAZOLE 30 MG TAB.RAP.DR PO ONE (09:00)
[2016-11-03] MEDS: ENOXAPARIN SODIUM INJ 40 MG/0.4 ML DISP.SYRIN SUBCUT SCH (09:05)
[2016-11-03] MEDS: NORMAL SALINE 100 ML with INSULIN REGULAR, HUMAN 100 UNIT IV PRN ×2 (10:27)
[2016-11-03 11:39] LABS: ANION GAP 12 (5-19); BLOOD UREA NITROGEN 13 mg/dL (7-20); CALCIUM 10.3 mg/dL (8.4-10.2); CARBON DIOXIDE 19 mmol/L (22-30); CHLORIDE 104 mmol/L (98-107); CREATININE RESULT 0.93 mg/dL (0.52-1.25); SODIUM 135.2 mmol/L (137-145)
[2016-11-03 11:49] LABS: GLUCOSE 535 mg/dL (75-110)
[2016-11-03] MEDS ORDERED: ONDANSETRON HCL INJ/PF 4 MG/2 ML SDV IV PRN (12:51)
--- NOTE | 2016-11-03 13:56 | PDOC PROGRESS REPORT ---
Subjective Progress Note for:: 11/03/16 Subjective:: Patient began eating yesterday. He does report some abdominal pain today. Patient was found to be acidotic with a blood glucose of 469. Patient reports he does have a difficult time receiving his insulin, but states that 70/30 did not work for him as an outpatient. Physical Exam Vital Signs: Temp Pulse Resp BP Pulse Ox 98.7 F 101 H 18 147/92 H 100 11/03/16 10:45 11/03/16 10:45 11/03/16 10:45 11/03/16 10:45 11/03/16 10:45 Intake & Output 11/02/16 11/03/16 11/04/16 06:59 06:59 06:59 Intake Total 5052 6261 Output Total 1400 0 Balance 3652 4211 Weight 73.3 kg 71.5 kg Exam: General: Awake alert and oriented x3, no acute respiratory distress HEENT: AT/NC, PERRL, EOMI, oropharynx is moist, pink, no scleral icterus, no conjunctival injection Neck: No JVD, trachea midline Chest: Clear to auscultation bilaterally, no wheezes rhonchi or rales CV: Regular rate and rhythm, normal S1 and S2, no murmur, rub, or gallop Abdomen: Soft, tender to palpation diffusely out of proportion to physical examination, nondistended, active bowel sounds; no rebound, rigidity, or guarding Extremities: No cyanosis, clubbing or edema Neuro: Cranial nerves II through XII are grossly intact without focal deficits; awake alert and oriented x3 Psych: Normal mood and affect Results Laboratory Results: 11/03/16 04:43 11/03/16 11:04 11/03/16 11/03/16 11/03/16 04:43 04:43 06:29 WBC 6.8 RBC 3.89 L Hgb 10.4 L Hct 32.2 L MCV 83 MCH 26.6 L MCHC 32.2 RDW 18.7 H Plt Count 265 Sodium Cancelled 135.5 L Potassium Cancelled 5.1 H Chloride Cancelled 109 H Carbon Dioxide Cancelled 17 L Anion Gap Cancelled 10 BUN Cancelled 11 Creatinine Cancelled 1.01 Est GFR ( Amer) Cancelled > 60 Est GFR (Non-Af Amer) Cancelled > 60 Glucose Cancelled 469 H* Calcium Cancelled 9.5 11/03/16 11:04 WBC RBC Hgb Hct MCV MCH MCHC RDW Plt Count Sodium 135.2 L Potassium 5.0 Chloride 104 Carbon Dioxide 19 L Anion Gap 12 BUN 13 Creatinine 0.93 Est GFR ( Amer) > 60 Est GFR (Non-Af Amer) > 60 Glucose 535 H* Calcium 10.3 H Impressions: Acute Abdomen Series 10/28/16 00:00 IMPRESSION: NONSPECIFIC BOWEL GAS PATTERN WITHOUT EVIDENCE FOR OBSTRUCTION. Assessment & Plan - Diagnosis (1) DKA, type 1 Qualifiers: Diabetes mellitus complication detail: without coma Qualified Code(s): E10.10 - Type 1 diabetes mellitus with ketoacidosis without coma Is this a current diagnosis for this admission?: Yes Plan: Patient is now back in DKA although only mildly. Patient would benefit from transition to 70/30 and regular insulin as an outpatient. Patient resumed on n.p.o. diet, normal saline, and insulin drip. BMP every 4 hours and every hour Accu-Cheks. Zofran prn nausea (2) Anemia Qualifiers: Anemia type: unspecified type Qualified Code(s): D64.9 - Anemia, unspecified Is this a current diagnosis for this admission?: Yes Plan: Patient has heme positive stool. Patient has a history of esophagitis, gastritis this is likely the cause of this. He will require an outpatient colonoscopy. (3) Gastroparesis Is this a current diagnosis for this admission?: Yes Plan: Reglan achs (4) Tobacco dependency Is this a current diagnosis for this admission?: Yes Plan: Nicotine patch as needed (5) Erosive esophagitis Is this a current diagnosis for this admission?: Yes Plan: Place on PPI daily and GI cocktail as needed Suspect that this is a large component of patient's abdominal pain. (6) DVT prophylaxis Is this a current diagnosis for this admission?: Yes - Time Time Spent with patient: 25-34 minutes Medications reviewed and adjusted accordingly: Yes Anticipated discharge: Home Within: within 24 hours
[2016-11-03 15:45] LABS: ANION GAP 11 (5-19); BLOOD UREA NITROGEN 15 mg/dL (7-20); CALCIUM 9.9 mg/dL (8.4-10.2); CARBON DIOXIDE 18 mmol/L (22-30); CHLORIDE 109 mmol/L (98-107); CREATININE RESULT 0.89 mg/dL (0.52-1.25); GLUCOSE 265 mg/dL (75-110); POTASSIUM 4.4 mmol/L (3.6-5.0); SODIUM 137.7 mmol/L (137-145)
[2016-11-03] MEDS: POTASSI CL 20 MEQ/D5-1/2NS 1L 1,000 ML IV PRN (17:05)
[2016-11-03 20:15] LABS: ANION GAP 11 (5-19); BLOOD UREA NITROGEN 16 mg/dL (7-20); CARBON DIOXIDE 18 mmol/L (22-30); CHLORIDE 112 mmol/L (98-107); CREATININE RESULT 0.87 mg/dL (0.52-1.25); GLUCOSE 118 mg/dL (75-110); POTASSIUM 4.5 mmol/L (3.6-5.0); SODIUM 141.1 mmol/L (137-145)
[2016-11-03 23:30] LABS: ANION GAP 12 (5-19); BLOOD UREA NITROGEN 16 mg/dL (7-20); CALCIUM 9.9 mg/dL (8.4-10.2); CARBON DIOXIDE 16 mmol/L (22-30); CHLORIDE 113 mmol/L (98-107); CREATININE RESULT 0.89 mg/dL (0.52-1.25); GLUCOSE 89 mg/dL (75-110); POTASSIUM 4.3 mmol/L (3.6-5.0); SODIUM 140.6 mmol/L (137-145)
[2016-11-04] MEDS: NORMAL SALINE 100 ML with INSULIN REGULAR, HUMAN 100 UNIT IV PRN ×2 (03:19)
[2016-11-04 03:46] LABS: ANION GAP 9 (5-19); BLOOD UREA NITROGEN 16 mg/dL (7-20); CALCIUM 9.8 mg/dL (8.4-10.2); CARBON DIOXIDE 19 mmol/L (22-30); CHLORIDE 114 mmol/L (98-107); GLUCOSE 60 mg/dL (75-110); SODIUM 142.1 mmol/L (137-145)
[2016-11-04] MEDS: POTASSI CL 20 MEQ/D5-1/2NS 1L 1,000 ML IV PRN ×2 (05:27→10:17)
[2016-11-04] MEDS ORDERED: LANSOPRAZOLE 30 MG TAB.RAP.DR PO SCH (06:00)
[2016-11-04 07:54] LABS: ANION GAP 14 (5-19); BLOOD UREA NITROGEN 17 mg/dL (7-20); CALCIUM 9.6 mg/dL (8.4-10.2); CARBON DIOXIDE 15 mmol/L (22-30); CHLORIDE 111 mmol/L (98-107); CREATININE RESULT 0.77 mg/dL (0.52-1.25); GLUCOSE 199 mg/dL (75-110); POTASSIUM 4.8 mmol/L (3.6-5.0); SODIUM 139.8 mmol/L (137-145)
[2016-11-04] MEDS: METOCLOPRAMIDE HCL 10 MG TABLET PO SCH (08:49)
[2016-11-04] MEDS: ENOXAPARIN SODIUM INJ 40 MG/0.4 ML DISP.SYRIN SUBCUT SCH (10:13)
[2016-11-04] MEDS ORDERED: OXYCODONE-ACETAMINOPHEN 5-325 MG TABLET PO PRN (10:30)
[2016-11-04 11:19] LABS: ANION GAP 10 (5-19); BLOOD UREA NITROGEN 15 mg/dL (7-20); CALCIUM 9.4 mg/dL (8.4-10.2); CARBON DIOXIDE 18 mmol/L (22-30); CHLORIDE 112 mmol/L (98-107); CREATININE RESULT 0.71 mg/dL (0.52-1.25); GLUCOSE 69 mg/dL (75-110); POTASSIUM 4.1 mmol/L (3.6-5.0); SODIUM 140.3 mmol/L (137-145)
[2016-11-04] MEDS: SUCRALFATE 1 GM TABLET PO SCH ×3 (12:21→22:33)
--- NOTE | 2016-11-04 14:51 | PDOC PROGRESS REPORT ---
Subjective Progress Note for:: 11/04/16 Subjective:: Patient being followed for DKA. Patient is doing better anion gap is now closed. Patient still complains of nausea and abdominal pain. Patient diet was advanced to full liquids however patient was found at the vending machine buying what ever he desired to have. Patient diet has been advanced. Physical Exam Vital Signs: Temp Pulse Resp BP Pulse Ox 98.2 F 112 H 16 119/69 100 11/04/16 10:56 11/04/16 10:56 11/04/16 10:56 11/04/16 10:56 11/04/16 10:56 Intake & Output 11/03/16 11/04/16 11/05/16 06:59 06:59 06:59 Intake Total 6261 5098 Output Total 2050 900 Balance 4211 4198 Weight 71.5 kg 69.4 kg General appearance: PRESENT: no acute distress, cooperative Head exam: PRESENT: normocephalic Eye exam: PRESENT: EOMI. ABSENT: scleral icterus Mouth exam: PRESENT: moist Neck exam: PRESENT: full ROM Respiratory exam: PRESENT: clear to auscultation alfonso. ABSENT: tachypnea, unlabored Cardiovascular exam: PRESENT: RRR, +S1, +S2 GI/Abdominal exam: PRESENT: normal bowel sounds, soft, tenderness. ABSENT: ascites Rectal exam: PRESENT: deferred Gentrourinary exam: ABSENT: indwelling catheter Extremities exam: PRESENT: full ROM. ABSENT: pedal edema, tenderness Musculoskeletal exam: PRESENT: full ROM Neurological exam: PRESENT: alert, awake, oriented to person, oriented to place , oriented to time, oriented to situation, CN II-XII grossly intact Psychiatric exam: PRESENT: normal mood Skin exam: PRESENT: intact, warm Results Laboratory Results: 11/03/16 04:43 11/04/16 10:38 11/03/16 11/03/16 11/03/16 06:29 15:05 19:28 Sodium 135.5 L 137.7 141.1 Potassium 5.1 H 4.4 4.5 Chloride 109 H 109 H 112 H Carbon Dioxide 17 L 18 L 18 L Anion Gap 10 11 11 BUN 11 15 16 Creatinine 1.01 0.89 0.87 Est GFR ( Amer) > 60 > 60 > 60 Est GFR (Non-Af Amer) > 60 > 60 > 60 Glucose 469 H* 265 H 118 H Calcium 9.5 9.9 10.0 11/03/16 11/04/16 11/04/16 22:45 02:42 03:19 Sodium 140.6 Cancelled 142.1 Potassium 4.3 Cancelled 4.0 Chloride 113 H Cancelled 114 H Carbon Dioxide 16 L Cancelled 19 L Anion Gap 12 Cancelled 9 BUN 16 Cancelled 16 Creatinine 0.89 Cancelled 0.80 Est GFR ( Amer) > 60 Cancelled > 60 Est GFR (Non-Af Amer) > 60 Cancelled > 60 Glucose 89 Cancelled 60 L Calcium 9.9 Cancelled 9.8 11/04/16 11/04/16 06:52 10:38 Sodium 139.8 140.3 Potassium 4.8 4.1 Chloride 111 H 112 H Carbon Dioxide 15 L 18 L Anion Gap 14 10 BUN 17 15 Creatinine 0.77 0.71 Est GFR ( Amer) > 60 > 60 Est GFR (Non-Af Amer) > 60 > 60 Glucose 199 H 69 L Calcium 9.6 9.4 10/31/16 00:25 Stool - Stool - Final 10/31/16 00:25 Stool - Stool Stool Culture - Final NO SALMONELLA, SHIGELLA, CAMPYLOBACTER, OR E.COLI 0157 RECOVERED. NEGATIVE FOR SHIGA TOXINS 1&2. Impressions: Acute Abdomen Series 10/28/16 00:00 IMPRESSION: NONSPECIFIC BOWEL GAS PATTERN WITHOUT EVIDENCE FOR OBSTRUCTION. Assessment & Plan - Diagnosis (1) DKA, type 1 Qualifiers: Diabetes mellitus complication detail: without coma Qualified Code(s): E10.10 - Type 1 diabetes mellitus with ketoacidosis without coma Is this a current diagnosis for this admission?: Yes Plan: Now resolved. Patient transitioned from insulin gtt. to subcutaneous insulin. Patient was initially started on a liquid diet due to his history of gastroparesis and abdominal pain however patient proceeded to advance his diet on his own by going to the vending machine. Will continue with subcutaneous insulin sliding scale and glucose checks. (2) Anemia Qualifiers: Anemia type: unspecified type Qualified Code(s): D64.9 - Anemia, unspecified Is this a current diagnosis for this admission?: Yes Plan: Patient has a history of erosive esophagitis gastritis which could become be the cause of his anemia. Patient benefit from iron studies and possible treatment is if he is in fact iron deficient. Will check B12 and folate and thyroid studies has not been done. With in fact benefit from outside colonoscopy. (3) Gastroparesis Is this a current diagnosis for this admission?: Yes Plan: Reglan for now as patient is having multiple bowel movements. (4) Tobacco dependency Is this a current diagnosis for this admission?: Yes Plan: Nicotine patch and counseling on cessation of smoking. (5) Erosive esophagitis Is this a current diagnosis for this admission?: Yes Plan: Patient switch to Protonix IV push twice daily along with Carafate. (6) DVT prophylaxis Is this a current diagnosis for this admission?: Yes Plan: Continue Lovenox - Time Time Spent with patient: 15-24 minutes Anticipated discharge: Home Within: within 24 hours
[2016-11-04 15:31] LABS: ANION GAP 11 (5-19); BLOOD UREA NITROGEN 16 mg/dL (7-20); CALCIUM 9.4 mg/dL (8.4-10.2); CARBON DIOXIDE 13 mmol/L (22-30); CHLORIDE 108 mmol/L (98-107); CREATININE RESULT 0.76 mg/dL (0.52-1.25); SODIUM 132.2 mmol/L (137-145)
[2016-11-04 15:46] LABS: GLUCOSE 578 mg/dL (75-110)
[2016-11-04] MEDS ORDERED: SODIUM POLYSTYRENE SULFONATE 15 GM/60 ML PO ONE (16:03)
[2016-11-04] MEDS: INSULIN LISPRO 100 UNIT/ML 3 ML VIAL SUBCUT PRN ×2 (16:30→22:33)
[2016-11-04] MEDS: PROMETHAZINE HCL INJ 25 MG/1 ML VIAL IV PRN (17:55)
[2016-11-04] MEDS ORDERED: CALCIUM GLUCONATE 1000 MG/10 ML INJ IV ONE (18:30)
[2016-11-04] MEDS: OXYCODONE-ACETAMINOPHEN 5-325 MG TABLET PO PRN (18:41)
[2016-11-04] MEDS ORDERED: INSULIN GLARGINE,HUM.REC.ANLOG 1,000 UNIT/10 ML UNIT SUBCUT SCH (22:00)
[2016-11-04] MEDS ORDERED: PANTOPRAZOLE SODIUM 40 MG VIAL IV SCH (22:00)
[2016-11-05] MEDS: OXYCODONE-ACETAMINOPHEN 5-325 MG TABLET PO PRN ×2 (00:52→08:27)
[2016-11-05] MEDS: PROMETHAZINE HCL INJ 25 MG/1 ML VIAL IV PRN ×2 (00:53→08:27)
[2016-11-05] MEDS: INSULIN LISPRO 100 UNIT/ML 3 ML VIAL SUBCUT PRN (03:24)
[2016-11-05 06:11] LABS: THYROID STIMULATING HORMONE 0.36 uIU/mL (0.47-4.68)
[2016-11-05 07:04] LABS: ANION GAP 12 (5-19); BLOOD UREA NITROGEN 23 mg/dL (7-20); CALCIUM 10.6 mg/dL (8.4-10.2); CARBON DIOXIDE 16 mmol/L (22-30); CHLORIDE 111 mmol/L (98-107); CREATININE RESULT 1.03 mg/dL (0.52-1.25); GLUCOSE 221 mg/dL (75-110); MAGNESIUM 1.9 mg/dL (1.6-2.3); SODIUM 138.6 mmol/L (137-145)
[2016-11-05 07:05] LABS: POTASSIUM 4.8 mmol/L (3.6-5.0)
[2016-11-05] MEDS: SUCRALFATE 1 GM TABLET PO SCH (08:27)
[2016-11-05 09:42] VITALS: BP 125/77
[2016-11-05] MEDS ORDERED: FERROUS SULFATE 325 MG TABLET PO SCH (10:00)
[2016-11-05] MEDS: ENOXAPARIN SODIUM INJ 40 MG/0.4 ML DISP.SYRIN SUBCUT SCH (11:27)
[2016-11-05] MEDS ORDERED: INSULIN GLARGINE,HUM.REC.ANLOG 300 UNIT/3 ML INSULN.PEN SUBCUT SCH (22:00)
== END 2016-11-05 14:06 | disposition home or self-care (01) | DRG 637 ==
LOC: ER 16:36 → EH 20:00 → UNDOADMIN 20:00 → EH 21:36 → 3W 22:05
PROVIDERS: ADMIT Family Medicine; ATTEND Family Medicine
DX: E10.10 Type 1 diabetes mellitus with ketoacidosis without coma (principal); K85.90 Acute pancreatitis without necrosis or infection, unspecified; R19.7 Diarrhea, unspecified; E78.5 Hyperlipidemia, unspecified; I10 Essential (primary) hypertension; F32.9 Major depressive disorder, single episode, unspecified; F17.210 Nicotine dependence, cigarettes, uncomplicated; K21.9 Gastro-esophageal reflux disease without esophagitis; D64.9 Anemia, unspecified; E87.6 Hypokalemia; E86.0 Dehydration; K31.84 Gastroparesis; K20.8 Other esophagitis; Z79.4 Long term (current) use of insulin; Z79.899 Other long term (current) drug therapy
CPT/HCPCS: 36415; 74022; 80048; 80053; 80061; 80307; 81001; 82272; 82607; 82728; 82746; 82962; 83540; 83550; 83690; 83735; 84439; 84443; 84466; 84484; 85025; 85027; 85045; 87045; 87205; 87493; 93005; 93010; 93970; 96361; 96374; 96375; 99291; J0610; J1815; J2270; J2405; J2550; J3480; J3490; J7030; S0164

== ENCOUNTER 2016-11-24 15:58 | Inpatient (IN) | payer OTHER ==
[2016-11-24] MEDS ORDERED: NORMAL SALINE 1000 ML 1,000 ML IV ONE ×3 (16:22→23:47)
[2016-11-24] MEDS ORDERED: METOCLOPRAMIDE HCL INJ/PF 10 MG/2 ML SDV IV ONE (16:23)
[2016-11-24] MEDS ORDERED: MORPHINE SULFATE 10 MG/ML INJ IV ONE ×2 (16:23→18:16)
--- NOTE | 2016-11-24 16:24 | ER Document Report ---
ED Medical Screen (RME) - General Chief Complaint: Abdominal Pain Stated Complaint: FLANK PAIN Time Seen by Provider: 11/24/16 16:16 Notes: Patient states that he has a history of pancreatitis. He states he is unsure why he gets pancreatitis. He states he also has history of insulin-dependent diabetes. He states he has been progressively getting more nauseated and having vomiting and abdominal pain as the day has gone on. TRAVEL OUTSIDE OF THE [place] IN LAST 30 DAYS: No - Related Data Allergies/Adverse Reactions: No Known Allergies Allergy (Verified 11/24/16 16:05) Past Medical History - Past Medical History Cardiac Medical History: Reports: Hx Hypercholesterolemia - On no medication for same., Hx Hypertension - Taken off medication for same. Denies: Hx Atrial Fibrillation, Hx Congestive Heart Failure, Hx Coronary Artery Disease, Hx Heart Attack, Hx Pulmonary Embolism Pulmonary Medical History: Denies: Hx Asthma, Hx COPD, Hx Sleep Apnea Neurological Medical History: Denies: Hx Seizures Endocrine Medical History: Reports: Hx Diabetes Mellitus Type 1 - 4 years. Denies: Hx Diabetes Mellitus Type 2, Hx Hyperthyroidism, Hx Hypothyroidism Renal/ Medical History: Denies: Hx Peritoneal Dialysis GI Medical History: Reports: Hx Gastroesophageal Reflux Disease. Denies: Hx Cirrhosis, Hx Hepatitis Musculoskeltal Medical History: Denies Hx Arthritis Psychiatric Medical History: Reports: Hx Depression Infectious Medical History: Denies: Hx Hepatitis Past Surgical History: Reports: Hx Orthopedic Surgery - back. Denies: Hx Appendectomy, Hx Cholecystectomy, Hx Tonsillectomy - Immunizations Hx Diphtheria, Pertussis, Tetanus Vaccination: Yes Physical Exam - Vital signs Vitals: Temp Pulse BP Pulse Ox 97.5 F 103 H 143/89 H 99 11/24/16 16:04 11/24/16 16:04 11/24/16 16:04 11/24/16 16:04 Course - Vital Signs Vital signs: Temp Pulse Resp BP Pulse Ox 97.5 F 103 H 143/89 H 99 11/24/16 16:04 11/24/16 16:04 11/24/16 16:04 11/24/16 16:04
[2016-11-24 17:10] LABS: ALANINE AMINOTRANSFERASE 53 U/L (21-72); ALBUMIN 3.9 g/dL (3.5-5.0); ALKALINE PHOSPHATASE 129 U/L (38-126); ANION GAP 15 (5-19); ASPARTATE AMINO TRANSFERASE 39 U/L (17-59); BILIRUBIN,DIRECT 0.3 mg/dL (0.0-0.4); BILIRUBIN,TOTAL 0.4 mg/dL (0.2-1.3); BLOOD UREA NITROGEN 17 mg/dL (7-20); CALCIUM 9.1 mg/dL (8.4-10.2); CARBON DIOXIDE 16 mmol/L (22-30); CHLORIDE 92 mmol/L (98-107); CREATININE RESULT 1.13 mg/dL (0.52-1.25); LIPASE 433.8 U/L (23-300); POTASSIUM 5.3 mmol/L (3.6-5.0); SODIUM 122.8 mmol/L (137-145); TOTAL PROTEIN 6.7 g/dL (6.3-8.2)
[2016-11-24 17:20] LABS: GLUCOSE 1218 mg/dL (75-110)
[2016-11-24 17:21] LABS: ABSOLUTE EOSINOPHILS # (AUTO) 0.1 10^3/uL (0.0-0.6); ABSOLUTE LYMPHOCYTES (AUTO) 0.9 10^3/uL (0.5-4.7); ABSOLUTE MONOCYTES (AUTO) 0.4 10^3/uL (0.1-1.4); ABSOLUTE NEUT (AUTO) 3.1 10^3/uL (1.7-8.2); BASOPHILS % (AUTO) 0.5 % (0-2); EOSINOPHILS % (AUTO) 1.9 % (0-6); HEMATOCRIT 37.1 % (37.9-51.0); HEMOGLOBIN 11.1 g/dL (13.5-17.0); HGB HCT DIFFERENCE -3.8; LYMPHOCYTES % (AUTO) 19.6 % (13-45); MEAN CORPUSCULAR HEMOGLOBIN 27.2 pg (27.0-33.4); MEAN CORPUSCULAR HGB CONC 29.8 g/dL (32.0-36.0); MONOCYTES % (AUTO) 9.3 % (3-13); RED BLOOD COUNT 4.06 10^6/uL (4.35-5.55); RED CELL DISTRIBUTION WIDTH 17.4 % (11.5-14.0); SEGMENTED NEUTROPHILS % (AUTO) 68.7 % (42-78); WHITE BLOOD COUNT 4.5 10^3/uL (4.0-10.5)
[2016-11-24 17:23] LABS: MEAN CORPUSCULAR VOLUME 91 fl (80-97)
[2016-11-24] MEDS ORDERED: INSULIN REG, HUMAN 100 UNIT/ML 3 ML VIAL (PYX) IV ONE ×2 (17:28→17:32)
[2016-11-24 17:43] LABS: APPEARANCE,URINE CLEAR; BILIRUBIN,URINE NEGATIVE (NEGATIVE); GLUCOSE, URINE >=500 mg/dL (NEGATIVE); KETONES,URINE NEGATIVE (NEGATIVE); LEUKOCYTE ESTERASE,URINE NEGATIVE (NEGATIVE); NITRITE,URINE NEGATIVE (NEGATIVE); PROTEIN,URINE NEGATIVE (NEGATIVE); URINE SPECIFIC GRAVITY 1.028; UROBILINOGEN,URINE NEGATIVE mg/dL (<2.0)
--- NOTE | 2016-11-24 18:05 | ER Document Report ---
ED General - General Chief Complaint: Abdominal Pain Stated Complaint: FLANK PAIN Time Seen by Provider: 11/24/16 16:16 Notes: Patient is having vomiting and diarrhea since last night. Says he is vomited twice today and had 8-10 diarrhea stools. He is having generalized abdominal pain, mostly in the center of the abdomen. Patient has a history of insulin- dependent diabetes and history of DKA's requiring frequent admissions here, most recently just 3 weeks ago. He was diagnosed with pancreatitis and DKA. Patient says that he is out of his short-term insulin and did not take his long- term Lantus this morning because his blood sugar was only 157. Therefore, the patient has not had any insulin since 1130 last night. Not running any fever, but is having chills. Denies alcohol. Does smoke. TRAVEL OUTSIDE OF THE [place] IN LAST 30 DAYS: No - Related Data Allergies/Adverse Reactions: No Known Allergies Allergy (Verified 11/24/16 16:05) Past Medical History - Social History Smoking Status: Current Every Day Smoker Frequency of alcohol use: None Family History: Reviewed & Not Pertinent, DM, Hyperlipidemia, Hypertension - Past Medical History Cardiac Medical History: Reports: Hx Hypercholesterolemia - On no medication for same., Hx Hypertension - Taken off medication for same. Endocrine Medical History: Reports: Hx Diabetes Mellitus Type 1 - 4 years GI Medical History: Reports: Hx Gastroesophageal Reflux Disease, Hx Pancreatitis Psychiatric Medical History: Reports: Hx Depression Past Surgical History: Reports: Hx Orthopedic Surgery - back - Immunizations Hx Diphtheria, Pertussis, Tetanus Vaccination: Yes Hx Pneumococcal Vaccination: 11/09/11 Review of Systems - Review of Systems Notes: REVIEW OF SYSTEMS: CONSTITUTIONAL : Denies fever. Has felt some chills. EENT: Denies eye, ear, nose or mouth or throat pain or other symptoms. CARDIOVASCULAR: Denies chest pain. RESPIRATORY: Denies cough, chest congestion, or shortness of breath. GASTROINTESTINAL: See HPI. GENITOURINARY: Denies difficulty or painful urinating, urinary frequency, blood in urine. MUSCULOSKELETAL: Denies back or neck pain. Denies joint pain or swelling. SKIN: Denies rash or skin lesions. NEUROLOGICAL: Denies LOC or altered mental status. Denies headache. Denies sensory loss or motor deficits. ALL OTHER SYSTEMS REVIEWED AND NEGATIVE. Physical Exam - Vital signs Vitals: Temp Pulse BP Pulse Ox 97.5 F 103 H 143/89 H 99 11/24/16 16:04 11/24/16 16:04 11/24/16 16:04 11/24/16 16:04 Interpretation: Normal - Notes Notes: PHYSICAL EXAMINATION: GENERAL: Well-appearing, in no acute distress. Vital signs all essentially normal. Appears to have abdominal pains. HEAD: Atraumatic, normocephalic. EYES: Pupils equal round and reactive to light, extraocular movements intact. ENT: oropharynx clear without exudates. Moist mucous membranes. NECK: Normal range of motion, supple. LUNGS: Breath sounds clear and equal bilaterally. HEART: Regular rate and rhythm without murmurs. ABDOMEN: Diffuse tenderness throughout the entire abdomen. No localization. Some diffuse, generalized guarding, but no rebound present. BACK: No tenderness throughout entire back. EXTREMITIES: Normal range of motion without pain. NEUROLOGICAL: Normal speech, normal gait. Normal sensory, motor, and reflex exams. Awake, alert, and oriented x3. Cranial nerves normal. PSYCH: Normal mood, normal affect. SKIN: Warm, dry, no rashes. Course - Re-evaluation Re-evalutation: 11/24/16 18:11 Patient's treatment was initiated in triage with IV fluids and insulin drip ordered. I spoke with the hospitalist who will be admitting the patient to [facility]. - Vital Signs Vital signs: Temp Pulse Resp BP Pulse Ox 97.5 F 103 H 143/89 H 99 11/24/16 16:04 11/24/16 16:04 11/24/16 16:04 11/24/16 16:04 - Laboratory Result Diagrams: 11/24/16 16:30 11/24/16 16:30 Laboratory results interpreted by me: 11/24/16 11/24/16 11/24/16 16:30 16:30 17:17 RBC 4.06 L Hgb 11.1 L Hct 37.1 L MCHC 29.8 L RDW 17.4 H Sodium 122.8 L Potassium 5.3 H Chloride 92 L Carbon Dioxide 16 L Glucose 1218 H* Alkaline Phosphatase 129 H Lipase 433.8 H Urine Glucose (UA) >=500 H Critical Care Note - Critical Care Note Total time excluding time spent on procedures (mins): 30 Discharge - Discharge Clinical Impression: DKA (diabetic ketoacidosis), DKA, type 1, Pancreatitis, acute Condition: Stable Admitting Provider: Hospitalist Unit Admitted: [facility]
[2016-11-24] MEDS ORDERED: ONDANSETRON HCL INJ/PF 4 MG/2 ML SDV IV ONE (18:17)
[2016-11-24] MEDS ORDERED: NORMAL SALINE 1000 ML 1,000 ML IV PRN (18:33)
[2016-11-24] MEDS ORDERED: ACETAMINOPHEN 325 MG TABLET PO PRN (18:33)
[2016-11-24] MEDS ORDERED: DEXTROSE 40% GEL 15 GM TUBE PO PRN ×2 (18:39)
[2016-11-24] MEDS ORDERED: GLUCAGON,HUMAN RECOMB 1 MG INJ IM PRN (18:39)
[2016-11-24] MEDS ORDERED: NORMAL SALINE 100 ML with INSULIN REGULAR, HUMAN 100 UNIT IV PRN ×2 (18:39)
[2016-11-24] MEDS ORDERED: DEXTROSE 50%-WATER 25 GM/50 ML DISP.SYRIN IV PRN ×2 (18:39)
[2016-11-24] MEDS ORDERED: DEXTROSE 5%-1/2 NORMAL SALINE 1,000 ML IV PRN ×3 (18:43→23:42)
--- NOTE | 2016-11-24 18:55 | PDOC H&P ---
History of Present Illness Admission Date/PCP: November 24, 2016 Patient complains of: Nausea and vomiting History of Present Illness: CHESTER MCKEON is a 36 year old male with history of insulin-dependent diabetes mellitus started to develop some abdominal discomfort and diarrhea yesterday. No nausea or vomiting. Patient denies missing insulin all throughout. Patient continues to work and was doing well up until early this morning he noted that his blood sugar was in the 150s. He did not therefore take his long-acting insulin which is Lantus 30 units. He is not taking any prandial coverage as he does not have any medication other than Lantus. Patient went to work and eventually started to develop abdominal discomfort. Recent had episodes of diarrhea again. He developed nausea and vomiting. He presented to the emergency room. Blood sugar was elevated to 1218. 15 units of IV insulin was given IV fluids was likewise started and the patient was referred for admission. Past Medical History Past Medical History: Medication reconciliation pending verification from the patient's pharmacist. Cardiac Medical History: Reports: Hyperlipidema - On no medication for same., Hypertension - Taken off medication for same. Denies: Atrial Fibrillation, Congestive Heart Failure, Coronary Artery Disease, Myocardial Infarction, Pulmonary Embolism Pulmonary Medical History: Denies: Asthma, Chronic Obstructive Pulmonary Disease (COPD), Sleep Apnea Neurological Medical History: Denies: Seizures Endocrine Medical History: Reports: Diabetes Mellitus Type 1 - 4 years Denies: Diabetes Mellitus Type 2, Hyperthyroidism, Hypothyroidism GI Medical History: Reports: Gastroesophageal Reflux Disease, Other - Pancreatitis, gastroparesis Denies: Cirrhosis, Hepatitis Musculoskeltal Medical History: Denies: Arthritis Psychiatric Medical History: Reports: Depression Hematology: Reports: Anemia - Chronic illnesses Past Surgical History Past Surgical History: Reports: Orthopedic Surgery - back Denies: Appendectomy, Cholecystectomy, Tonsillectomy Social History Information Source: Patient Smoking Status: Current Every Day Smoker Frequency of Alcohol Use: None Hx Recreational Drug Use: Yes Drugs: Marijuana Hx Prescription Drug Abuse: No Family History Family History: DM, Hyperlipidemia, Hypertension Parental Family History Reviewed: Yes Children Family History Reviewed: Yes Sibling(s) Family History Reviewed.: Yes Medication/Allergy Home Medications: Insulin Aspart [Novolog Flexpen] 0 unit SUBCUT .SLD SCALE 11/24/16 Insulin Glargine,Hum.rec.anlog [Lantus Solostar] 30 unit SQ Q12@08,20 11/24/16 Allergies/Adverse Reactions: No Known Allergies Allergy (Verified 11/24/16 16:05) Review of Systems Constitutional: PRESENT: weakness - Generalized. ABSENT: chills, fever(s), headache(s), night sweats, weight gain, weight loss Eyes: ABSENT: visual disturbances Ears: ABSENT: hearing changes Nose, Mouth, and Throat: ABSENT: mouth pain, sore throat Cardiovascular: ABSENT: chest pain, dyspnea on exertion, edema, orthropnea, palpitations Respiratory: ABSENT: cough, dyspnea, hemoptysis, sputum Gastrointestinal: PRESENT: abdominal pain, bloating, diarrhea, nausea, vomiting. ABSENT: constipation, dysphagia, hematemesis, hematochezia, melena Genitourinary: ABSENT: dysuria, hematuria Musculoskeletal: ABSENT: joint swelling Integumentary: ABSENT: pruritus, rash, wounds Neurological: ABSENT: abnormal gait, abnormal speech, confusion, dizziness, focal weakness, syncope Psychiatric: ABSENT: anxiety, depression, homidical ideation, suicidal ideation Endocrine: PRESENT: polyuria. ABSENT: cold intolerance, heat intolerance, polydipsia, polyphagia Hematologic/Lymphatic: ABSENT: easy bleeding, easy bruising Physical Exam Vital Signs: Temp Pulse Resp BP Pulse Ox 97.5 F 103 H 143/89 H 99 11/24/16 16:04 11/24/16 16:04 11/24/16 16:04 11/24/16 16:04 Intake & Output 11/23/16 11/24/16 11/25/16 06:59 06:59 06:59 Weight 66.4 kg General appearance: PRESENT: no acute distress, cooperative, well-developed, well-nourished Head exam: PRESENT: atraumatic, normocephalic Eye exam: PRESENT: conjunctiva pale, EOMI, PERRLA. ABSENT: scleral icterus Ear exam: PRESENT: normal external ear exam. ABSENT: drainage Mouth exam: PRESENT: dry mucosa, neck supple, tongue midline Neck exam: ABSENT: carotid bruit, JVD, lymphadenopathy, thyromegaly Respiratory exam: PRESENT: clear to auscultation alfonso, unlabored. ABSENT: rales , rhonchi, wheezes Cardiovascular exam: PRESENT: RRR, tachycardia. ABSENT: diastolic murmur, rubs , systolic murmur Pulses: PRESENT: normal dorsalis pedis pul Vascular exam: PRESENT: normal capillary refill GI/Abdominal exam: PRESENT: guarding - Voluntary, hyperactive bowel sounds, soft , tenderness - Diffusely. ABSENT: distended, mass - Limited due to pain and discomfort, organolmegaly - Exam is limited due to pain and discomfort, rebound Rectal exam: PRESENT: deferred Extremities exam: PRESENT: full ROM. ABSENT: calf tenderness, clubbing, pedal edema Neurological exam: PRESENT: alert, awake, oriented to person, oriented to place , oriented to time, oriented to situation Psychiatric exam: PRESENT: appropriate affect, normal mood. ABSENT: homicidal ideation, suicidal ideation Skin exam: PRESENT: dry, intact, warm. ABSENT: cyanosis, rash Results Laboratory Results: 11/24/16 16:30 11/24/16 16:30 11/24/16 11/24/16 11/24/16 16:30 16:30 17:17 WBC 4.5 RBC 4.06 L Hgb 11.1 L Hct 37.1 L MCV 91 D MCH 27.2 MCHC 29.8 L RDW 17.4 H Plt Count 253 Seg Neutrophils % 68.7 Lymphocytes % 19.6 Monocytes % 9.3 Eosinophils % 1.9 Basophils % 0.5 Absolute Neutrophils 3.1 Absolute Lymphocytes 0.9 Absolute Monocytes 0.4 Absolute Eosinophils 0.1 Absolute Basophils 0.0 Sodium 122.8 L Potassium 5.3 H Chloride 92 L Carbon Dioxide 16 L Anion Gap 15 BUN 17 Creatinine 1.13 Est GFR ( Amer) > 60 Est GFR (Non-Af Amer) > 60 Glucose 1218 H* Calcium 9.1 Total Bilirubin 0.4 AST 39 ALT 53 Alkaline Phosphatase 129 H Total Protein 6.7 Albumin 3.9 Lipase 433.8 H Urine Color STRAW Urine Appearance CLEAR Urine pH 6.0 Ur Specific [place] 1.028 Urine Protein NEGATIVE Urine Glucose (UA) >=500 H Urine Ketones NEGATIVE Urine Blood NEGATIVE Urine Nitrite NEGATIVE Ur Leukocyte Esterase NEGATIVE Urine RBC (Auto) 0 Assessment & Plan - Diagnosis (1) Diabetic ketoacidosis Qualifiers: Diabetes mellitus type: type 1 Diabetes mellitus complication detail: without coma Qualified Code(s): E10.10 - Type 1 diabetes mellitus with ketoacidosis without coma Is this a current diagnosis for this admission?: Yes (2) Hyperkalemia Is this a current diagnosis for this admission?: Yes (3) Hyponatremia Is this a current diagnosis for this admission?: Yes (4) Pancreatitis Qualifiers: Chronicity: chronic Pancreatitis type: unspecified pancreatitis type Qualified Code(s): K86.1 - Other chronic pancreatitis Is this a current diagnosis for this admission?: Yes (5) Anemia of chronic disease Is this a current diagnosis for this admission?: Yes (6) Erosive esophagitis Is this a current diagnosis for this admission?: Yes (7) Gastroparesis Is this a current diagnosis for this admission?: Yes (8) Depression Qualifiers: Depression Type: unspecified Qualified Code(s): F32.9 - Major depressive disorder, single episode, unspecified Is this a current diagnosis for this admission?: Yes (9) Hyperlipidemia Qualifiers: Hyperlipidemia type: unspecified Qualified Code(s): E78.5 - Hyperlipidemia , unspecified Is this a current diagnosis for this admission?: Yes - Time Time Spent: 50 to 70 Minutes - Inpatient Certification Based on my medical assessment, after consideration of the patient's comorbidities, presenting symptoms, or acuity I expect that the services needed warrant INPATIENT care.: Yes I certify that my determination is in accordance with my understanding of Medicare's requirements for reasonable and necessary INPATIENT services [42 CFR 412.3e].: Yes Medical Necessity: Need Close Monitoring Due to Risk of Patient Decompensation, Need For IV Fluids, Need For Continuous Telemetry Monitoring, Risk of Complication if Not Cared For in Hospital, Risk of Diagnosis Which Will Require Inpatient Eval/Care/Monitoring Post Hospital Care: D/C [employer] Documentation - Plan Summary Plan Summary: The patient will be admitted to [facility]. We will continue IV hydration and insulin drip started in the emergency room. We will serially monitor anion gap and serum sodium. Blood sugars will be monitored hourly, and insulin drip to be titrated until anion gap normalized. If blood sugar falls below 250 and anion gap still elevated or the patient is symptomatic we will change the IV fluid to dextrose containing solution. Antiemetics will be given. We will monitor lipase level. I will keep him n.p.o. except medications. DVT prophylaxis with Lovenox will be placed. Further testing depends on the initial evaluation as outlined above.
[2016-11-24] MEDS ORDERED: 1/2 NORMAL SALINE 1,000 ML IV PRN (20:12)
[2016-11-24 20:52] LABS: ANION GAP 13 (5-19); BLOOD UREA NITROGEN 17 mg/dL (7-20); CALCIUM 8.8 mg/dL (8.4-10.2); CARBON DIOXIDE 17 mmol/L (22-30); CHLORIDE 103 mmol/L (98-107); SODIUM 132.6 mmol/L (137-145)
[2016-11-24 21:16] LABS: POTASSIUM 3.8 mmol/L (3.6-5.0)
[2016-11-24 21:17] LABS: GLUCOSE 576 mg/dL (75-110)
[2016-11-24] MEDS ORDERED: POTASSI CL 20 MEQ/50 ML RIDER 20 MEQ/50 ML RTUPB IV ONE (22:10)
[2016-11-24 22:16] LABS: ADD ON TESTING BLD IN LAB ACKNOWLEDGE
[2016-11-24 22:23] LABS: MAGNESIUM 1.9 mg/dL (1.6-2.3)
[2016-11-24] MEDS: ONDANSETRON HCL INJ/PF 4 MG/2 ML SDV IV PRN (23:08)
[2016-11-25] MEDS ORDERED: NORMAL SALINE 1000 ML 1,000 ML IV ONE (00:01)
[2016-11-25 01:07] LABS: ANION GAP 14 (5-19); BLOOD UREA NITROGEN 16 mg/dL (7-20); CALCIUM 8.8 mg/dL (8.4-10.2); CARBON DIOXIDE 16 mmol/L (22-30); CHLORIDE 110 mmol/L (98-107); CREATININE RESULT 0.89 mg/dL (0.52-1.25); GLUCOSE 117 mg/dL (75-110); POTASSIUM 3.6 mmol/L (3.6-5.0); SODIUM 139.5 mmol/L (137-145)
--- NOTE | 2016-11-25 01:39 | RADIOLOGY REPORT (SQ) ---
EXAM DESCRIPTION: ACUTE ABDOMEN SERIES COMPLETED DATE/TIME: 11/25/2016 1:29 am REASON FOR STUDY: abd pain COMPARISON: Abdominal series 10/28/2016. CT abdomen and pelvis 04/14/2016. NUMBER OF VIEWS: Three views. TECHNIQUE: PA chest, supine abdomen and upright/decubitus abdomen radiographic images acquired. LIMITATIONS: None. FINDINGS: CHEST: Lungs clear of infiltrates. FREE AIR: None. BOWEL GAS PATTERN: Air-fluid levels within nondilated bowel loops. Gas noted within the colon. CALCIFICATIONS: No suspicious calcifications. HARDWARE: None in the abdomen. SOFT TISSUES: No gross mass or suggestion of organomegaly. BONES: No acute findings. IMPRESSION: Nonspecific bowel gas pattern. TECHNICAL DOCUMENTATION: JOB ID: [id number] 2010 [employer]- All Rights Reserved
[2016-11-25] MEDS: ONDANSETRON HCL INJ/PF 4 MG/2 ML SDV IV PRN ×3 (03:04→11:08)
[2016-11-25] MEDS: POTASSI CL 20 MEQ/50 ML RIDER 20 MEQ/50 ML RTUPB IV SCH ×2 (03:11→05:37)
[2016-11-25] MEDS: MORPHINE SULFATE 10 MG/ML INJ IV PRN ×5 (03:26→20:27)
[2016-11-25 05:08] LABS: HEMATOCRIT 27.1 % (37.9-51.0); HEMOGLOBIN 9.2 g/dL (13.5-17.0); HGB HCT DIFFERENCE 0.5; MEAN CORPUSCULAR HEMOGLOBIN 27.5 pg (27.0-33.4); MEAN CORPUSCULAR HGB CONC 33.8 g/dL (32.0-36.0); RED BLOOD COUNT 3.33 10^6/uL (4.35-5.55); RED CELL DISTRIBUTION WIDTH 16.6 % (11.5-14.0); WHITE BLOOD COUNT 5.6 10^3/uL (4.0-10.5)
[2016-11-25 05:15] LABS: MEAN CORPUSCULAR VOLUME 81 fl (80-97)
[2016-11-25 05:16] LABS: AMYLASE 46 U/L (30-110); ANION GAP 11 (5-19); BLOOD UREA NITROGEN 14 mg/dL (7-20); CALCIUM 7.8 mg/dL (8.4-10.2); CARBON DIOXIDE 15 mmol/L (22-30); CHLORIDE 112 mmol/L (98-107); CHOLESTEROL 120.48 mg/dL (0-200); CREATININE RESULT 0.73 mg/dL (0.52-1.25); Direct HDL 35 mg/dL (>40); GLUCOSE 164 mg/dL (75-110); LIPASE 152.5 U/L (23-300); MAGNESIUM 1.7 mg/dL (1.6-2.3); PHOSPHORUS 3.5 mg/dL (2.5-4.5); POTASSIUM 3.7 mmol/L (3.6-5.0); SODIUM 137.5 mmol/L (137-145); TRIGLYCERIDES 80 mg/dL (<150)
[2016-11-25 05:27] LABS: DIRECT LDL 72 mg/dL (<100)
[2016-11-25] MEDS: LANSOPRAZOLE 30 MG TAB.RAP.DR PO SCH ×2 (05:38→17:27)
[2016-11-25] MEDS ORDERED: POTASSI CL 20 MEQ/50 ML RIDER 20 MEQ/50 ML RTUPB IV ONE (06:16)
[2016-11-25 08:45] LABS: ANION GAP 9 (5-19); BLOOD UREA NITROGEN 12 mg/dL (7-20); CALCIUM 7.9 mg/dL (8.4-10.2); CARBON DIOXIDE 15 mmol/L (22-30); CHLORIDE 114 mmol/L (98-107); CREATININE RESULT 0.85 mg/dL (0.52-1.25); GLUCOSE 202 mg/dL (75-110); POTASSIUM 3.9 mmol/L (3.6-5.0); SODIUM 138.2 mmol/L (137-145)
[2016-11-25] MEDS: ENOXAPARIN SODIUM INJ 40 MG/0.4 ML DISP.SYRIN SUBCUT SCH (09:29)
[2016-11-25] MEDS ORDERED: GLUCAGON,HUMAN RECOMB 1 MG INJ IM PRN (11:15)
[2016-11-25] MEDS ORDERED: DEXTROSE 40% GEL 15 GM TUBE PO PRN ×2 (11:15)
[2016-11-25] MEDS ORDERED: DEXTROSE 50%-WATER 25 GM/50 ML DISP.SYRIN IV PRN ×2 (11:15)
--- NOTE | 2016-11-25 11:26 | PDOC PROGRESS REPORT ---
Subjective Progress Note for:: 11/25/16 Subjective:: Patient reports chronic diarrhea with pancreatitis as well as when having DKA. Patient still with diarrhea but abdominal discomfort much better as well as vomiting. Still nauseous. Denies any chills nor fever. Physical Exam Vital Signs: Temp Pulse Resp BP Pulse Ox 97.5 F 79 16 105/70 99 11/25/16 07:24 11/25/16 07:24 11/25/16 07:24 11/25/16 07:24 11/25/16 07:24 Intake & Output 11/24/16 11/25/16 11/26/16 06:59 06:59 06:59 Intake Total 3947 Balance 3947 Weight 66.3 kg General appearance: PRESENT: no acute distress, cooperative Head exam: PRESENT: normocephalic Eye exam: PRESENT: EOMI Mouth exam: PRESENT: moist, neck supple Neck exam: ABSENT: JVD Respiratory exam: PRESENT: clear to auscultation alfonso Cardiovascular exam: PRESENT: RRR. ABSENT: gallop GI/Abdominal exam: PRESENT: soft, tenderness - mild on epigastric area. ABSENT : distended Extremities exam: ABSENT: pedal edema Neurological exam: PRESENT: alert, awake, oriented to situation Skin exam: PRESENT: dry, warm. ABSENT: cyanosis Results Laboratory Results: 11/25/16 04:08 11/25/16 08:04 11/24/16 11/24/16 11/25/16 20:00 20:00 00:33 WBC RBC Hgb Hct MCV MCH MCHC RDW Plt Count Sodium 132.6 L 139.5 Potassium 3.8 D 3.6 Chloride 103 110 H Carbon Dioxide 17 L 16 L Anion Gap 13 14 BUN 17 16 Creatinine 0.90 0.89 Est GFR ( Amer) > 60 > 60 Est GFR (Non-Af Amer) > 60 > 60 Glucose 576 H* 117 H Calcium 8.8 8.8 Phosphorus Magnesium 1.9 Triglycerides Cholesterol LDL Cholesterol Direct VLDL Cholesterol HDL Cholesterol Amylase Lipase 11/25/16 11/25/16 11/25/16 04:08 04:08 08:04 WBC 5.6 RBC 3.33 L Hgb 9.2 L Hct 27.1 L MCV 81 D MCH 27.5 MCHC 33.8 RDW 16.6 H Plt Count 212 Sodium 137.5 138.2 Potassium 3.7 3.9 Chloride 112 H 114 H Carbon Dioxide 15 L 15 L Anion Gap 11 9 BUN 14 12 Creatinine 0.73 0.85 Est GFR ( Amer) > 60 > 60 Est GFR (Non-Af Amer) > 60 > 60 Glucose 164 H 202 H Calcium 7.8 L 7.9 L Phosphorus 3.5 Magnesium 1.7 Triglycerides 80 Cholesterol 120.48 LDL Cholesterol Direct 72 VLDL Cholesterol 16.0 HDL Cholesterol 35 L Amylase 46 Lipase 152.5 Impressions: Acute Abdomen Series 11/24/16 00:00 IMPRESSION: Nonspecific bowel gas pattern. Assessment & Plan - Diagnosis (1) Diabetic ketoacidosis Qualifiers: Diabetes mellitus type: type 1 Diabetes mellitus complication detail: without coma Qualified Code(s): E10.10 - Type 1 diabetes mellitus with ketoacidosis without coma Is this a current diagnosis for this admission?: Yes (2) Hyperkalemia Is this a current diagnosis for this admission?: Yes (3) Hyponatremia Is this a current diagnosis for this admission?: Yes (4) Pancreatitis Qualifiers: Chronicity: chronic Pancreatitis type: unspecified pancreatitis type Qualified Code(s): K86.1 - Other chronic pancreatitis Is this a current diagnosis for this admission?: Yes (5) Anemia of chronic disease Is this a current diagnosis for this admission?: Yes (6) Erosive esophagitis Is this a current diagnosis for this admission?: Yes (7) Gastroparesis Is this a current diagnosis for this admission?: Yes (8) Depression Qualifiers: Depression Type: unspecified Qualified Code(s): F32.9 - Major depressive disorder, single episode, unspecified Is this a current diagnosis for this admission?: Yes (9) Hyperlipidemia Qualifiers: Hyperlipidemia type: unspecified Qualified Code(s): E78.5 - Hyperlipidemia , unspecified Is this a current diagnosis for this admission?: Yes - Time Time Spent with patient: 25-34 minutes - Plan Summary Plan Summary: Transition to [place] insulin. Check stool for Cdif. toxin. Advance diet. Continue IV hydration. Continue supportive care.
[2016-11-25] MEDS: NORMAL SALINE 1000 ML 1,000 ML IV PRN ×2 (12:22→17:31)
[2016-11-25] MEDS ORDERED: INSULIN GLARGINE,HUM.REC.ANLOG 300 UNIT/3 ML INSULN.PEN SUBCUT ONE (13:45)
[2016-11-25] MEDS: INSULIN REG, HUMAN 100 UNIT/ML 3 ML VIAL (PYX) SUBCUT PRN ×2 (16:41→22:30)
[2016-11-25] MEDS ORDERED: INSULIN LISPRO 100 UNIT/ML 3 ML VIAL SUBCUT ONE (17:30)
[2016-11-25] MEDS: INSULIN GLARGINE,HUM.REC.ANLOG 300 UNIT/3 ML INSULN.PEN SUBCUT SCH (19:44)
[2016-11-26] MEDS: MORPHINE SULFATE 10 MG/ML INJ IV PRN ×4 (00:41→13:38)
[2016-11-26] MEDS: LANSOPRAZOLE 30 MG TAB.RAP.DR PO SCH ×2 (05:20→16:55)
[2016-11-26 06:23] LABS: HEMATOCRIT 31.4 % (37.9-51.0); HEMOGLOBIN 10.5 g/dL (13.5-17.0); HGB HCT DIFFERENCE 0.1; MEAN CORPUSCULAR HEMOGLOBIN 27.3 pg (27.0-33.4); MEAN CORPUSCULAR HGB CONC 33.3 g/dL (32.0-36.0); MEAN CORPUSCULAR VOLUME 82 fl (80-97); RED BLOOD COUNT 3.83 10^6/uL (4.35-5.55); RED CELL DISTRIBUTION WIDTH 17.4 % (11.5-14.0); WHITE BLOOD COUNT 6.4 10^3/uL (4.0-10.5)
[2016-11-26 06:32] LABS: ANION GAP 9 (5-19); BLOOD UREA NITROGEN 13 mg/dL (7-20); CALCIUM 9.2 mg/dL (8.4-10.2); CARBON DIOXIDE 18 mmol/L (22-30); CHLORIDE 113 mmol/L (98-107); CREATININE RESULT 0.89 mg/dL (0.52-1.25); GLUCOSE 188 mg/dL (75-110); POTASSIUM 4.6 mmol/L (3.6-5.0); SODIUM 140.3 mmol/L (137-145)
[2016-11-26] MEDS: INSULIN LISPRO 100 UNIT/ML 3 ML VIAL SUBCUT SCH ×3 (07:51→16:54)
[2016-11-26] MEDS: INSULIN GLARGINE,HUM.REC.ANLOG 300 UNIT/3 ML INSULN.PEN SUBCUT SCH (07:54)
[2016-11-26] MEDS: ONDANSETRON HCL INJ/PF 4 MG/2 ML SDV IV PRN ×2 (07:55→13:38)
[2016-11-26] MEDS: ENOXAPARIN SODIUM INJ 40 MG/0.4 ML DISP.SYRIN SUBCUT SCH (09:21)
[2016-11-26] MEDS: NORMAL SALINE 1000 ML 1,000 ML IV PRN (09:23)
--- NOTE | 2016-11-26 10:30 | Physician Advisory Note ---
Physician Advisor ProgressNote .: Pursuant to the plan for [facility], I have reviewed the medical record for this patient. Physician Advisor Statement: Please document: "Chronic Anemia, likely due to " (when suspecting "Anemia of Chr Dz", please specify the most likely underlying dz: DM type __, CKD stage __, osteomyelitis, other acute infections/inflammatory d/o's, ...) Thanks! CK
--- NOTE | 2016-11-26 16:43 | PDOC DISCHARGE SUMMARY ---
General - Admit/Disc Date/PCP Admission Date/Primary Care Provider: 11/24/16 18:33 Discharge Date: 11/26/16 - Discharge Diagnosis (1) Diabetic ketoacidosis Is this a current diagnosis for this admission?: Yes (2) Hyperkalemia Is this a current diagnosis for this admission?: Yes (3) Hyponatremia Is this a current diagnosis for this admission?: Yes (4) Pancreatitis Is this a current diagnosis for this admission?: Yes (5) Anemia of chronic disease Is this a current diagnosis for this admission?: Yes (6) Erosive esophagitis Is this a current diagnosis for this admission?: Yes (7) Gastroparesis Is this a current diagnosis for this admission?: Yes (8) Depression Is this a current diagnosis for this admission?: Yes (9) Hyperlipidemia Is this a current diagnosis for this admission?: Yes - Additional Information Resuscitation Status: Full Code Discharge Diet: Diabetic - No concentrated sweets Discharge Activity: Activity As Tolerated, Balance Activity w/Rest Home Medications: Insulin Glargine,Hum.rec.anlog [Lantus Solostar] 30 unit SQ Q12@08,20 11/24/16 Insulin Lispro [Humalog Insulin (Lispro) 100 unit/mL] 8 unit SUBCUT MEALS unit 11/26/16 Lansoprazole [Prevacid 30 mg Odt Tablet] 30 mg PO BID@0600,1700 #60 tab. 11/26/16 Oxycodone HCl/Acetaminophen [Percocet 5-325 mg Tablet] 1 tab PO Q6H PRN #10 tab 11/26/16 Additional Information: Measure blood sugars 3 times a day and record bring to next physician visit. Return to the emergency room if symptoms recur. History of Present Illness Patient complains of: Abdominal pain History of Present Illness: CHESTER MCKEON is a 36 year old male with history of insulin-dependent diabetes mellitus started to develop some abdominal discomfort and diarrhea yesterday. No nausea or vomiting. Patient denies missing insulin all throughout. Patient continues to work and was doing well up until early this morning he noted that his blood sugar was in the 150s. He did not therefore take his long-acting insulin which is Lantus 30 units. He is not taking any prandial coverage as he does not have any medication other than Lantus. Patient went to work and eventually started to develop abdominal discomfort. Recent had episodes of diarrhea again. He developed nausea and vomiting. He presented to the emergency room. Blood sugar was elevated to 1218. 15 units of IV insulin was given IV fluids was likewise started and the patient was referred for admission. Hospital Course Hospital Course: The patient was admitted to [facility]. KUB shows nonspecific findings. Patient was then hydrated with normal saline and kept n.p.o. Insulin intravenously was given and titrated until blood sugar improved below 200. The patient's anion gap was abnormal but on the low side likely due to pseudo-hyponatremia. With IV hydration and insulin drip the patient's anion gap continues to trend down. The patient's symptomatology started to improve. Abdominal pain got less. Nausea and vomiting resolved. Diarrhea resolved. Stool for Clostridium difficile toxin was negative. The patient was then transitioned to oral subcutaneous insulin. He was given 6 doses of prandial insulin coverage rather than sliding scale which he had at home. His blood sugar got better controlled with above measure and therefore patient would want to try that instead of the sliding scale he have with 2 units for every 100 of blood sugar measured above 175. The patient continues to improve. His course was noted for elevated lipase likely from chronic pancreatitis that eventually normalized. He was started on diet and tolerated it well. The rest of the hospital stays unremarkable. Physical Exam Vital Signs: Temp Pulse Resp BP Pulse Ox 97.6 F 94 18 103/75 99 11/26/16 15:48 11/26/16 15:48 11/26/16 15:48 11/26/16 15:48 11/26/16 15:48 Intake & Output 11/25/16 11/26/16 11/27/16 06:59 06:59 06:59 Intake Total 3947 3838 474 Output Total 2600 400 Balance 3947 1238 74 Weight 66.3 kg 66.2 kg General appearance: PRESENT: no acute distress, cooperative Head exam: PRESENT: normocephalic Eye exam: PRESENT: EOMI Mouth exam: PRESENT: moist, neck supple Neck exam: ABSENT: JVD Respiratory exam: PRESENT: clear to auscultation alfonso. ABSENT: rhonchi, wheezes Cardiovascular exam: PRESENT: RRR. ABSENT: gallop GI/Abdominal exam: PRESENT: normal bowel sounds, soft. ABSENT: distended Extremities exam: ABSENT: pedal edema Neurological exam: PRESENT: alert, awake, oriented to person, oriented to place , oriented to time, oriented to situation Skin exam: PRESENT: dry, warm. ABSENT: cyanosis Results Laboratory Results: 11/26/16 05:58 11/26/16 05:58 11/26/16 11/26/16 05:58 05:58 WBC 6.4 RBC 3.83 L Hgb 10.5 L Hct 31.4 L MCV 82 MCH 27.3 MCHC 33.3 RDW 17.4 H Plt Count 275 Sodium 140.3 Potassium 4.6 Chloride 113 H Carbon Dioxide 18 L Anion Gap 9 BUN 13 Creatinine 0.89 Est GFR ( Amer) > 60 Est GFR (Non-Af Amer) > 60 Glucose 188 H Calcium 9.2 Impressions: Acute Abdomen Series 11/24/16 00:00 IMPRESSION: Nonspecific bowel gas pattern. Qualifiers PATEINT BEING DISCHARGED WITH ANY OF THE FOLLOWING DIAGNOSIS?: No Plan Discharge Plan: Follow-up with primary care physician in 1 week. Time Spent: Less than 30 Minutes
[2016-11-26 16:51] VITALS: BP 108/79
== END 2016-11-26 17:35 | disposition home or self-care (01) | DRG 637 ==
LOC: ER 15:58 → EH 18:33 → UNDOADMIN 19:01 → EH 19:01 → 3S 21:42
PROVIDERS: ADMIT Family Medicine; ATTEND Family Medicine
DX: E10.10 Type 1 diabetes mellitus with ketoacidosis without coma (principal); K85.90 Acute pancreatitis without necrosis or infection, unspecified; E87.1 Hypo-osmolality and hyponatremia; K22.10 Ulcer of esophagus without bleeding; E87.5 Hyperkalemia; K31.84 Gastroparesis; F32.9 Major depressive disorder, single episode, unspecified; E78.5 Hyperlipidemia, unspecified; D63.8 Anemia in other chronic diseases classified elsewhere; E10.43 Type 1 diabetes mellitus with diabetic autonomic (poly)neuropathy; I10 Essential (primary) hypertension; K21.9 Gastro-esophageal reflux disease without esophagitis; F17.210 Nicotine dependence, cigarettes, uncomplicated; Z79.4 Long term (current) use of insulin; Z83.3 Family history of diabetes mellitus; Z82.49 Family history of ischemic heart disease and other diseases of the circulatory system
CPT/HCPCS: 36415; 74022; 80048; 80053; 80061; 81001; 82150; 82962; 83690; 83735; 84100; 85025; 85027; 87493; 96361; 96374; 96375; 96376; 99291; J1650; J1815; J2270; J2405; J2765; J3480; J7030

== ENCOUNTER 2016-12-09 15:37 | Inpatient (IN) | payer OTHER ==
[2016-12-09] MEDS ORDERED: NORMAL SALINE 1000 ML 1,000 ML IV ONE ×2 (16:25→16:43)
--- NOTE | 2016-12-09 16:26 | ER Document Report ---
ED Medical Screen (RME) - General Chief Complaint: High Blood Sugar Stated Complaint: ABDOMINAL PAIN Time Seen by Provider: 12/09/16 16:23 Notes: Patient is sent from the community clinic with pain on inspiration and elevated blood sugars. Patient has been here multiple times in the past with similar complaints. TRAVEL OUTSIDE OF THE [place] IN LAST 30 DAYS: No - Related Data Allergies/Adverse Reactions: No Known Allergies Allergy (Verified 11/24/16 16:05) Past Medical History - Social History Chew tobacco use (# tins/day): No Frequency of alcohol use: None Drug Abuse: None - Past Medical History Cardiac Medical History: Reports: Hx Hypercholesterolemia - On no medication for same., Hx Hypertension - Taken off medication for same. Denies: Hx Atrial Fibrillation, Hx Congestive Heart Failure, Hx Coronary Artery Disease, Hx Heart Attack, Hx Pulmonary Embolism Pulmonary Medical History: Denies: Hx Asthma, Hx COPD, Hx Sleep Apnea Neurological Medical History: Denies: Hx Seizures Endocrine Medical History: Reports: Hx Diabetes Mellitus Type 1 - 4 years. Denies: Hx Diabetes Mellitus Type 2, Hx Hyperthyroidism, Hx Hypothyroidism Renal/ Medical History: Denies: Hx Peritoneal Dialysis GI Medical History: Reports: Hx Gastroesophageal Reflux Disease, Hx Pancreatitis. Denies: Hx Cirrhosis, Hx Hepatitis Musculoskeltal Medical History: Denies Hx Arthritis Psychiatric Medical History: Reports: Hx Depression Infectious Medical History: Denies: Hx Hepatitis Past Surgical History: Reports: Hx Orthopedic Surgery - back. Denies: Hx Appendectomy, Hx Cholecystectomy, Hx Tonsillectomy - Immunizations Hx Diphtheria, Pertussis, Tetanus Vaccination: Yes History of Influenza Vaccine for 11/2016 - 04/2017 Season: Refused Physical Exam - Vital signs Vitals: Temp Pulse Resp BP Pulse Ox 98.2 F 108 H 16 116/80 96 12/09/16 16:07 12/09/16 16:07 12/09/16 16:07 12/09/16 16:07 12/09/16 16:07 Course - Vital Signs Vital signs: Temp Pulse Resp BP Pulse Ox 98.2 F 108 H 16 116/80 96 12/09/16 16:07 12/09/16 16:07 12/09/16 16:07 12/09/16 16:07 12/09/16 16:07
[2016-12-09] MEDS ORDERED: KETOROLAC TROMETHAMINE 60 MG/2 ML SDV IV ONE (16:43)
[2016-12-09] MEDS ORDERED: ONDANSETRON HCL INJ/PF 4 MG/2 ML SDV IV ONE (16:44)
[2016-12-09] MEDS ORDERED: MORPHINE SULFATE 10 MG/ML INJ IV ONE (16:44)
--- NOTE | 2016-12-09 17:04 | ER Document Report ---
ED Blood Sugar Problem - General Chief Complaint: High Blood Sugar Stated Complaint: ABDOMINAL PAIN Time Seen by Provider: 12/09/16 16:23 Mode of Arrival: Ambulatory Information source: Patient TRAVEL OUTSIDE OF THE [place] IN LAST 30 DAYS: No - HPI Onset: Other - Chronic Quality of pain: Achy Severity: Moderate Associated symptoms: Nausea, Vomiting. denies: Confusion, Difficulty speaking, Dizziness, Dry mucous membranes, Increased thirst, Frequent urination, Fruity breath, Loss of consciousness, Shakiness, Sweating Similar symptoms previously: Yes Recently seen / treated by doctor: Yes Notes: Patient arrives with complaints of nausea, vomiting, diarrhea with abdominal pain. He states that he has been experiencing this for the past several months. The pain is mainly across his upper abdomen. He reports that he has a history of diabetes. His blood sugars have been running high despite reportedly taking his insulin. He was seen by his primary care physician and since the emergency department for evaluation. States that he has pain across his upper abdomen, and is worse with deep breaths and touching the area. He denies any dysuria or hematuria. He reports fevers. He denies any blood in his vomit or his stool. He denies any difficulty breathing but states that taking a deep breath makes the pain in his abdomen hurt worse. Denies any rashes or injuries. He is on a blood thinners. He denies any numbness, tingling, weakness. He has no other complaints at this time. Here with him manic as I was with Dr. Dr. Centeno 1 day Yes he has no loss of - Related Data Allergies/Adverse Reactions: No Known Allergies Allergy (Verified 11/24/16 16:05) Past Medical History - Social History Smoking Status: Current Some Day Smoker Chew tobacco use (# tins/day): No Frequency of alcohol use: None Drug Abuse: None Family History: DM, Hyperlipidemia, Hypertension Patient has suicidal ideation: No Patient has homicidal ideation: No - Past Medical History Cardiac Medical History: Reports: Hx Hypercholesterolemia - On no medication for same., Hx Hypertension - Taken off medication for same. Denies: Hx Atrial Fibrillation, Hx Congestive Heart Failure, Hx Coronary Artery Disease, Hx Heart Attack, Hx Pulmonary Embolism Pulmonary Medical History: Denies: Hx Asthma, Hx COPD, Hx Sleep Apnea Neurological Medical History: Denies: Hx Seizures Endocrine Medical History: Reports: Hx Diabetes Mellitus Type 1 - 4 years. Denies: Hx Diabetes Mellitus Type 2, Hx Hyperthyroidism, Hx Hypothyroidism Renal/ Medical History: Denies: Hx Peritoneal Dialysis GI Medical History: Reports: Hx Gastroesophageal Reflux Disease, Hx Pancreatitis. Denies: Hx Cirrhosis, Hx Hepatitis Musculoskeltal Medical History: Denies Hx Arthritis Psychiatric Medical History: Reports: Hx Depression Infectious Medical History: Denies: Hx Hepatitis Past Surgical History: Reports: Hx Orthopedic Surgery - back. Denies: Hx Appendectomy, Hx Cholecystectomy, Hx Tonsillectomy - Immunizations Hx Diphtheria, Pertussis, Tetanus Vaccination: Yes Hx Pneumococcal Vaccination: 11/09/11 Review of Systems - Review of Systems -: Yes All other systems reviewed and negative Physical Exam - Vital signs Vitals: Temp Pulse Resp BP Pulse Ox 98.2 F 108 H 16 116/80 96 12/09/16 16:07 12/09/16 16:07 12/09/16 16:07 12/09/16 16:07 12/09/16 16:07 - Notes Notes: GENERAL: alert, cooperative, nontoxic, no distress. HEAD: normocephalic, atraumatic EYES: conjunctiva pink without discharge, no external redness or swelling. EARS: no external swelling, no external redness NOSE: atraumatic, no external swelling MOUTH/THROAT: mucous membranes moist and pink, posterior pharynx without erythema, swelling, exudate. No trismus or drooling. NECK: soft, supple, full range of motion, no meningismus. CHEST: no distress, lungs clear and equal throughout. No wheezing, rales, rhonchi. CARDIAC: regular rate and rhythm, no murmur, normal capillary refill, normal pulses. No peripheral edema noted. ABDOMEN: Soft, tenderness across the upper abdomen. Mild guarding. No rebound tenderness. BACK: full range of motion, no CVA tenderness. EXTREMITIES: full range of motion of all extremities. No redness, no swelling. NEURO: alert and oriented x 3, no focal deficits, full range of motion of all extremities. PYSCH: appropriate mood, affect. Patient is cooperative. SKIN: pink, warm, dry, no rash. Course - Re-evaluation Re-evalutation: 12/09/16 19:32 Patient is nontoxic appearing with stable vitals. The patient is noted to have a glucose of over 500 with a bicarb of 18 and a pH of 7.31. This is consistent with DKA. Patient's lipase is 700, this is fairly chronic for this patient. CT shows no signs of acute abnormality. Chest x-ray is negative. Patient has been given IV fluids, 7 units of insulin IV. He will be started on insulin drip at 5 units an hour per the admitting physician's request. Case was discussed with hospitalist and the patient will be admitted the hospital for further evaluation and management. - Vital Signs Vital signs: Temp Pulse Resp BP Pulse Ox 98.2 F 108 H 16 116/80 96 12/09/16 16:07 12/09/16 16:07 12/09/16 16:07 12/09/16 16:07 12/09/16 16:07 - Laboratory Result Diagrams: 12/09/16 17:15 12/09/16 17:15 Laboratory results interpreted by me: 12/09/16 12/09/16 12/09/16 16:45 17:15 17:15 RBC 4.13 L Hgb 11.0 L Hct 34.7 L MCH 26.7 L MCHC 31.9 L RDW 16.8 H VBG pCO2 VBG HCO3 Sodium 132.6 L Carbon Dioxide 18 L Glucose 598 H* Lipase 782.1 H Urine Glucose (UA) >=500 H Urine Blood SMALL H 12/09/16 18:55 RBC Hgb Hct MCH MCHC RDW VBG pCO2 27.9 L VBG HCO3 13.7 L Sodium Carbon Dioxide Glucose Lipase Urine Glucose (UA) Urine Blood - Diagnostic Test Radiology reviewed: Image reviewed, Reports reviewed - Chest x-ray negative, CT abdomen pelvis with IV contrast negative. Discharge - Discharge Clinical Impression: DKA (diabetic ketoacidoses) Qualifiers: Diabetes mellitus type: type 1 Diabetes mellitus complication detail: without coma Qualified Code(s): E10.10 - Type 1 diabetes mellitus with ketoacidosis without coma Condition: Stable Disposition: ADMITTED INPATIENT Admitting Provider: Hospitalist Unit Admitted: [facility]
[2016-12-09 17:14] LABS: APPEARANCE,URINE CLEAR; BILIRUBIN,URINE NEGATIVE (NEGATIVE); GLUCOSE, URINE >=500 mg/dL (NEGATIVE); KETONES,URINE NEGATIVE (NEGATIVE); LEUKOCYTE ESTERASE,URINE NEGATIVE (NEGATIVE); NITRITE,URINE NEGATIVE (NEGATIVE); PROTEIN,URINE NEGATIVE (NEGATIVE); URINE SPECIFIC GRAVITY 1.028; UROBILINOGEN,URINE NEGATIVE mg/dL (<2.0)
--- NOTE | 2016-12-09 17:25 | RADIOLOGY REPORT (SQ) ---
EXAM DESCRIPTION: CHEST PA/LAT COMPLETED DATE/TIME: 12/09/2016 5:07 pm REASON FOR STUDY: PAIN WITH BREATHING COMPARISON: 09/23/2016 EXAM PARAMETERS: NUMBER OF VIEWS: two views TECHNIQUE: Digital Frontal and Lateral radiographic views of the chest acquired. RADIATION DOSE: NA LIMITATIONS: none FINDINGS: LUNGS AND PLEURA: No opacities, masses or pneumothorax. No pleural effusion. MEDIASTINUM AND HILAR STRUCTURES: No masses or contour abnormalities. HEART AND VASCULAR STRUCTURES: Heart normal size. No evidence for failure. BONES: No acute findings. HARDWARE: None in the chest. OTHER: No other significant finding. IMPRESSION: NO SIGNIFICANT RADIOGRAPHIC FINDING IN THE CHEST. TECHNICAL DOCUMENTATION: JOB ID: [id number] [employer]- All Rights Reserved
[2016-12-09 17:41] LABS: ABSOLUTE BASOPHILS # (AUTO) 0.1 10^3/uL (0.0-0.2); ABSOLUTE EOSINOPHILS # (AUTO) 0.1 10^3/uL (0.0-0.6); ABSOLUTE LYMPHOCYTES (AUTO) 2.4 10^3/uL (0.5-4.7); ABSOLUTE MONOCYTES (AUTO) 0.7 10^3/uL (0.1-1.4); ABSOLUTE NEUT (AUTO) 4.3 10^3/uL (1.7-8.2); BASOPHILS % (AUTO) 1.8 % (0-2); EOSINOPHILS % (AUTO) 1.6 % (0-6); HEMATOCRIT 34.7 % (37.9-51.0); HGB HCT DIFFERENCE -1.7; MEAN CORPUSCULAR HEMOGLOBIN 26.7 pg (27.0-33.4); MEAN CORPUSCULAR HGB CONC 31.9 g/dL (32.0-36.0); MEAN CORPUSCULAR VOLUME 84 fl (80-97); MONOCYTES % (AUTO) 9.6 % (3-13); RED BLOOD COUNT 4.13 10^6/uL (4.35-5.55); RED CELL DISTRIBUTION WIDTH 16.8 % (11.5-14.0); WHITE BLOOD COUNT 7.7 10^3/uL (4.0-10.5)
[2016-12-09 17:55] LABS: ALANINE AMINOTRANSFERASE 47 U/L (21-72); ALKALINE PHOSPHATASE 117 U/L (38-126); ANION GAP 14 (5-19); ASPARTATE AMINO TRANSFERASE 46 U/L (17-59); BILIRUBIN,DIRECT 0.3 mg/dL (0.0-0.4); BILIRUBIN,TOTAL 0.4 mg/dL (0.2-1.3); BLOOD UREA NITROGEN 20 mg/dL (7-20); CALCIUM 9.7 mg/dL (8.4-10.2); CARBON DIOXIDE 18 mmol/L (22-30); CHLORIDE 101 mmol/L (98-107); CREATININE RESULT 0.93 mg/dL (0.52-1.25); LIPASE 782.1 U/L (23-300); POTASSIUM 4.5 mmol/L (3.6-5.0); SODIUM 132.6 mmol/L (137-145); TOTAL PROTEIN 7.5 g/dL (6.3-8.2)
[2016-12-09 18:05] LABS: GLUCOSE 598 mg/dL (75-110)
[2016-12-09] MEDS ORDERED: INSULIN REG, HUMAN 100 UNIT/ML 3 ML VIAL (PYX) IV ONE ×2 (18:09→19:31)
--- NOTE | 2016-12-09 18:46 | RADIOLOGY REPORT (SQ) ---
EXAM DESCRIPTION: CT ABD/PELVIS WITH IV ONLY COMPLETED DATE/TIME: 12/09/2016 6:30 pm REASON FOR STUDY: ABD PAIN COMPARISON: 04/14/2016 TECHNIQUE: CT scan of the abdomen and pelvis performed using helical scanning technique with dynamic intravenous contrast injection. No oral contrast. Images reviewed with lung, soft tissue, and bone windows. Reconstructed coronal and sagittal MPR images reviewed. Delayed images for evaluation of the urinary system also acquired. All images stored on PACS. All CT scanners at this facility use dose modulation, iterative reconstruction, and/or weight based d osing when appropriate to reduce radiation dose to as low as reasonably achievable (ALARA). [facility]: Dose Right [facility]: CareDose [facility]: Dose Right [facility]: Teradose 4D [facility]: RV ID CONTRAST TYPE AND DOSE: contrast/concentration: Isovue 370.00 mg/ml; Total Contrast Delivered: 76.0 ml; Total Saline Delivered: 67.0 ml RENAL FUNCTION: GFR > 60. RADIATION DOSE: Up-to-date CT equipment and radiation dose reduction techniques were employed. CTDIv ol: 6.3 - 8.4 mGy. DLP: 724 mGy-cm.. LIMITATIONS: None. FINDINGS: LOWER CHEST: No significant findings. No nodules or infiltrates. LIVER: Normal size. No masses. No dilated ducts. SPLEEN: Normal size. No focal lesions. PANCREAS: No masses. Similar calcifications. No adjacent inflammation or peripancreatic fluid collec tions. Pancreatic duct not dilated. GALLBLADDER: No identified stones by CT criteria. No inflammatory changes to suggest cholecystitis. ADRENAL GLANDS: No significant masses or asymmetry. RIGHT KIDNEY AND URETER: No solid masses. No significant calcifications. No hydronephrosis or hyd roureter. LEFT KIDNEY AND URETER: No solid masses. No significant calcifications. No hydronephrosis or hydr oureter. AORTA AND VESSELS: No aneurysm. No dissection. Renal arteries, SMA, celiac without stenosis. RETROPERITONEUM: No retroperitoneal adenopathy, hemorrhage or masses. BOWEL AND PERITONEAL CAVITY: No masses or inflammatory changes. No free fluid or peritoneal masses. APPENDIX: Normal. PELVIS: No mass. No free fluid. Normal bladder. ABDOMINAL WALL: No masses. No hernias. BONES: No acute findings. OTHER: No other significant finding. IMPRESSION: NO ACUTE FINDING IN THE ABDOMEN OR PELVIS ON CT SCAN WITH IV CONTRAST. TECHNICAL DOCUMENTATION: JOB ID: [id number] Quality ID # [id number]: Final reports with documentation of one or more dose reduction techniques (e.g., Au tomated exposure control, adjustment of the mA and/or kV according to patient size, use of iterative reconstruction technique) 2010 [employer]- All Rights Reserved
[2016-12-09 19:03] LABS: VENOUS BLOOD BASE EXCESS -11.3 mmol/L; VENOUS BLOOD HCO3 13.7 mmol/L (20-32); VENOUS BLOOD PCO2 27.9 mmHg (35-63); VENOUS BLOOD PH 7.31 (7.30-7.42)
[2016-12-09] MEDS ORDERED: GLUCAGON,HUMAN RECOMB 1 MG INJ IM PRN (19:31)
[2016-12-09] MEDS ORDERED: DEXTROSE 50%-WATER 25 GM/50 ML DISP.SYRIN IV PRN ×2 (19:31)
[2016-12-09] MEDS ORDERED: DEXTROSE 40% GEL 15 GM TUBE PO PRN ×2 (19:31)
[2016-12-09] MEDS ORDERED: NORMAL SALINE 1000 ML 1,000 ML IV PRN (19:31)
[2016-12-09] MEDS ORDERED: NORMAL SALINE 100 ML with INSULIN REGULAR, HUMAN 100 UNIT IV PRN ×2 (19:31)
[2016-12-09] MEDS ORDERED: LIDOCAINE 2% VISCOUS SOLN 20 ML UDCUP PO ONE (19:32)
[2016-12-09] MEDS ORDERED: METOCLOPRAMIDE HCL ORAL SOLN 10 MG/10 ML UDCUP PO ONE (19:32)
[2016-12-09] MEDS ORDERED: MAG HYDROX/AL HYDROX/SIMETH SUSP 30 ML UDCUP PO ONE (19:32)
[2016-12-09] MEDS ORDERED: PANTOPRAZOLE SODIUM 40 MG VIAL IV ONE (19:34)
[2016-12-09 20:02] LABS: URINE BARBITURATES SCREEN NEGATIVE; URINE METHADONE SCREEN NEGATIVE; URINE OPIATES LOW NEGATIVE; URINE PHENCYCLIDINE SCREEN NEGATIVE
[2016-12-09] MEDS ORDERED: ACETAMINOPHEN 325 MG TABLET PO PRN (21:37)
[2016-12-09] MEDS ORDERED: ONDANSETRON HCL INJ/PF 4 MG/2 ML SDV IV PRN (21:37)
[2016-12-09] MEDS ORDERED: NORMAL SALINE 1000 ML 2,000 ML IV ONE (21:42)
[2016-12-09 22:05] LABS: ANION GAP 10 (5-19); BLOOD UREA NITROGEN 19 mg/dL (7-20); CALCIUM 9.2 mg/dL (8.4-10.2); CARBON DIOXIDE 21 mmol/L (22-30); CHLORIDE 113 mmol/L (98-107); CREATININE RESULT 0.85 mg/dL (0.52-1.25); GLUCOSE 102 mg/dL (75-110); POTASSIUM 3.6 mmol/L (3.6-5.0); SODIUM 143.6 mmol/L (137-145)
[2016-12-09] MEDS ORDERED: POTASSI CL 20 MEQ/D5-1/2NS 1L 1,000 ML IV PRN (22:39)
[2016-12-09] MEDS ORDERED: INSULIN GLARGINE,HUM.REC.ANLOG 1,000 UNIT/10 ML UNIT SUBCUT ONE (22:45)
--- NOTE | 2016-12-09 22:51 | PDOC H&P ---
History of Present Illness Admission Date/PCP: 12/09/16 21:37 [facility] History of Present Illness: CHESTER MCKEON is a 36 year old male with a known history of diabetes mellitus type 1, hypertension, hyperlipidemia who presents to the emergency department with complaints of abdominal pain. This will make this patient's seventh admission for DKA. Patient complains of difficulty with his blood sugar until his Lantus was adjusted to 32 units twice daily. He does report he is taking Prilosec twice daily. He reports onset of abdominal pain with vomiting over the last several days. He reports he always has abdominal pain. He reports he has been having some bright red blood in his stool which he reports is now black. He admits to some upper respiratory congestion. Patient is found to be in mild DKA. Patient's lipase has been chronically elevated and he has had at least one episode of pancreatitis in the past, but CT of the abdomen today reveals no evidence of active pancreatitis. Patient does have a known history of erosive esophagitis which is known to cause elevated lipase. He is referred to hospital service for DKA. Past Medical History Cardiac Medical History: Reports: Hyperlipidema - On no medication for same., Hypertension - Taken off medication for same. Denies: Atrial Fibrillation, Congestive Heart Failure, Coronary Artery Disease, Myocardial Infarction, Pulmonary Embolism Pulmonary Medical History: Denies: Asthma, Chronic Obstructive Pulmonary Disease (COPD), Sleep Apnea Neurological Medical History: Denies: Seizures Endocrine Medical History: Reports: Diabetes Mellitus Type 1 - 4 years Denies: Diabetes Mellitus Type 2, Hyperthyroidism, Hypothyroidism GI Medical History: Reports: Gastroesophageal Reflux Disease Denies: Cirrhosis, Hepatitis Musculoskeltal Medical History: Denies: Arthritis Psychiatric Medical History: Reports: Depression Hematology: Reports: Anemia - Chronic illnesses Past Surgical History Past Surgical History: Reports: Orthopedic Surgery - back Denies: Appendectomy, Cholecystectomy, Tonsillectomy Social History Smoking Status: Current Some Day Smoker Frequency of Alcohol Use: None Hx Recreational Drug Use: Yes Drugs: Marijuana Hx Prescription Drug Abuse: No - Advance Directive Resuscitation Status: Full Code Surrogate healthcare decision maker:: Angel Timothy, mother Family History Family History: DM, Hyperlipidemia, Hypertension Parental Family History Reviewed: Yes Children Family History Reviewed: Yes Sibling(s) Family History Reviewed.: Yes Medication/Allergy Home Medications: Insulin Glargine,Hum.rec.anlog [Lantus Solostar] 30 unit SQ Q12@08,20 11/24/16 Insulin Lispro [Humalog Insulin (Lispro) 100 unit/mL] 8 unit SUBCUT MEALS unit 11/26/16 Lansoprazole [Prevacid 30 mg Odt Tablet] 30 mg PO BID@0600,1700 #60 tab 11/26/16 Oxycodone HCl/Acetaminophen [Percocet 5-325 mg Tablet] 1 tab PO Q6H PRN #10 tab 11/26/16 Allergies/Adverse Reactions: No Known Allergies Allergy (Verified 11/24/16 16:05) Review of Systems Constitutional: ABSENT: chills, fever(s), headache(s), weight gain, weight loss Eyes: ABSENT: visual disturbances Ears: ABSENT: hearing changes Nose, Mouth, and Throat: PRESENT: other - Congestion Cardiovascular: ABSENT: chest pain, dyspnea on exertion, edema, orthropnea, palpitations Respiratory: ABSENT: cough, dyspnea, hemoptysis, sputum Gastrointestinal: PRESENT: abdominal pain - Chronic, heartburn, hematochezia, melena, nausea, vomiting. ABSENT: constipation, diarrhea, hematemesis Genitourinary: ABSENT: dysuria, hematuria, nocturia Musculoskeletal: ABSENT: joint swelling Integumentary: ABSENT: rash, wounds Neurological: ABSENT: abnormal gait, abnormal speech, confusion, dizziness, focal weakness, syncope Psychiatric: ABSENT: anxiety, depression, homidical ideation, suicidal ideation Endocrine: ABSENT: cold intolerance, heat intolerance, polydipsia, polyuria Hematologic/Lymphatic: ABSENT: easy bleeding, easy bruising Physical Exam Vital Signs: Temp Pulse Resp BP Pulse Ox 97.6 F 84 16 109/64 100 12/09/16 21:50 12/09/16 21:50 12/09/16 21:50 12/09/16 21:50 12/09/16 21:50 Intake & Output 12/08/16 12/09/16 12/10/16 06:59 06:59 06:59 Weight 71 kg General appearance: PRESENT: no acute distress, well-developed, well-nourished Head exam: PRESENT: atraumatic, normocephalic Eye exam: PRESENT: conjunctiva pink, EOMI, PERRLA. ABSENT: scleral icterus Ear exam: PRESENT: normal external ear exam Mouth exam: PRESENT: dry mucosa, tongue midline Neck exam: ABSENT: JVD, lymphadenopathy, thyromegaly, tracheal deviation Respiratory exam: PRESENT: clear to auscultation alfonso. ABSENT: rales, rhonchi, wheezes Cardiovascular exam: PRESENT: RRR, +S1, +S2. ABSENT: diastolic murmur, gallop, rubs, systolic murmur Pulses: PRESENT: normal dorsalis pedis pul Vascular exam: PRESENT: normal capillary refill GI/Abdominal exam: PRESENT: hypoactive bowel sounds, soft, tenderness - Pain out of proportion to physical examination, over exaggerated. ABSENT: distended , firm, guarding, mass, Ryan's sign, organolmegaly, rebound, rigid Rectal exam: PRESENT: deferred Extremities exam: PRESENT: full ROM. ABSENT: calf tenderness, clubbing, pedal edema Neurological exam: PRESENT: alert, awake, oriented to person, oriented to place , oriented to time, oriented to situation, CN II-XII grossly intact. ABSENT: motor sensory deficit Psychiatric exam: PRESENT: appropriate affect, normal mood. ABSENT: homicidal ideation, suicidal ideation Skin exam: PRESENT: dry, intact, warm. ABSENT: cyanosis, rash Results Laboratory Results: 12/09/16 21:40 12/09/16 12/09/16 16:45 17:15 Sodium 132.6 L Potassium 4.5 Chloride 101 Carbon Dioxide 18 L Anion Gap 14 BUN 20 Creatinine 0.93 Glucose 598 H* Calcium 9.7 Total Bilirubin 0.4 Direct Bilirubin 0.3 Lipase 782.1 H Urine Blood SMALL H Impressions: Abdomen/Pelvis CT 12/09/16 00:00 IMPRESSION: NO ACUTE FINDING IN THE ABDOMEN OR PELVIS ON CT SCAN WITH IV CONTRAST. Chest X-Ray 12/09/16 16:59 IMPRESSION: NO SIGNIFICANT RADIOGRAPHIC FINDING IN THE CHEST. Assessment & Plan - Diagnosis (1) Diabetic ketoacidosis Qualifiers: Diabetes mellitus type: type 1 Diabetes mellitus complication detail: without coma Qualified Code(s): E10.10 - Type 1 diabetes mellitus with ketoacidosis without coma Is this a current diagnosis for this admission?: Yes Plan: Placed patient on normal saline and insulin drip and follow per protocol. Anticipate the patient will close quite rapidly. (2) Erosive esophagitis Is this a current diagnosis for this admission?: Yes Plan: Placed patient on PPI twice daily Place patient on Carafate every 6 (3) Gastroparesis Is this a current diagnosis for this admission?: Yes Plan: Placed patient on Reglan every 6 (4) Hyponatremia Is this a current diagnosis for this admission?: Yes Plan: This is relative secondary to patient's hyperglycemia. Also secondary to intravascular volume depletion. Will recheck (5) IDDM (insulin dependent diabetes mellitus) Is this a current diagnosis for this admission?: Yes Plan: Patient is poorly controlled and noncompliant. Consult discharge planning. (6) Tobacco abuse Is this a current diagnosis for this admission?: Yes Plan: Encourage cessation - Time Time Spent: 30 to 50 Minutes Medications reviewed and adjusted accordingly: Yes Anticipated discharge: Home Within: within 48 hours - Inpatient Certification Based on my medical assessment, after consideration of the patient's comorbidities, presenting symptoms, or acuity I expect that the services needed warrant INPATIENT care.: Yes I certify that my determination is in accordance with my understanding of Medicare's requirements for reasonable and necessary INPATIENT services [42 CFR 412.3e].: Yes Medical Necessity: Need For IV Fluids 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
[2016-12-09] MEDS: METOCLOPRAMIDE HCL INJ/PF 10 MG/2 ML SDV IV SCH (22:56)
[2016-12-09] MEDS ORDERED: FLUTICASONE NASAL SPRAY 50 MCG/SPRY 120 SPRAY/16 GM ONE (23:36)
[2016-12-09] MEDS: FLUTICASONE NASAL SPRAY 50 MCG/SPRY 120 SPRAY/16 GM NASL SCH (23:49)
[2016-12-09] MEDS: SUCRALFATE SUSP 1 GM/10 ML UDCUP PO SCH (23:54)
[2016-12-10] MEDS ORDERED: INSULIN LISPRO 100 UNIT/ML 3 ML VIAL ONE (01:40)
[2016-12-10 02:00] LABS: ANION GAP 9 (5-19); BLOOD UREA NITROGEN 16 mg/dL (7-20); CALCIUM 8.6 mg/dL (8.4-10.2); CARBON DIOXIDE 17 mmol/L (22-30); CHLORIDE 114 mmol/L (98-107); CREATININE RESULT 0.71 mg/dL (0.52-1.25); GLUCOSE 234 mg/dL (75-110); POTASSIUM 3.9 mmol/L (3.6-5.0); SODIUM 139.6 mmol/L (137-145)
[2016-12-10] MEDS: INSULIN LISPRO 100 UNIT/ML 3 ML VIAL SUBCUT PRN ×4 (02:34→21:54)
[2016-12-10] MEDS: NORMAL SALINE 1000 ML 1,000 ML IV PRN ×2 (03:44→11:28)
[2016-12-10 06:01] LABS: ABSOLUTE BASOPHILS # (AUTO) 0.1 10^3/uL (0.0-0.2); ABSOLUTE EOSINOPHILS # (AUTO) 0.2 10^3/uL (0.0-0.6); ABSOLUTE MONOCYTES (AUTO) 0.7 10^3/uL (0.1-1.4); ABSOLUTE NEUT (AUTO) 2.8 10^3/uL (1.7-8.2); EOSINOPHILS % (AUTO) 2.7 % (0-6); HEMATOCRIT 29.4 % (37.9-51.0); HEMOGLOBIN 9.8 g/dL (13.5-17.0); LYMPHOCYTES % (AUTO) 35.1 % (13-45); MEAN CORPUSCULAR HEMOGLOBIN 27.1 pg (27.0-33.4); MEAN CORPUSCULAR HGB CONC 33.3 g/dL (32.0-36.0); MEAN CORPUSCULAR VOLUME 82 fl (80-97); MONOCYTES % (AUTO) 11.7 % (3-13); RED BLOOD COUNT 3.61 10^6/uL (4.35-5.55); RED CELL DISTRIBUTION WIDTH 17.2 % (11.5-14.0); SEGMENTED NEUTROPHILS % (AUTO) 49.5 % (42-78); WHITE BLOOD COUNT 5.7 10^3/uL (4.0-10.5)
[2016-12-10 06:21] LABS: ANION GAP 7 (5-19); BLOOD UREA NITROGEN 17 mg/dL (7-20); CALCIUM 8.9 mg/dL (8.4-10.2); CARBON DIOXIDE 21 mmol/L (22-30); CHLORIDE 114 mmol/L (98-107); CREATININE RESULT 0.88 mg/dL (0.52-1.25); GLUCOSE 129 mg/dL (75-110); POTASSIUM 4.2 mmol/L (3.6-5.0); SODIUM 141.6 mmol/L (137-145)
[2016-12-10] MEDS: SUCRALFATE SUSP 1 GM/10 ML UDCUP PO SCH ×3 (06:53→18:20)
[2016-12-10] MEDS: METOCLOPRAMIDE HCL INJ/PF 10 MG/2 ML SDV IV SCH ×4 (08:05→21:54)
[2016-12-10] MEDS ORDERED: LANSOPRAZOLE 30 MG TAB.RAP.DR PO SCH (10:00)
[2016-12-10] MEDS ORDERED: INSULIN GLARGINE,HUM.REC.ANLOG 1,000 UNIT/10 ML UNIT SUBCUT SCH (10:00)
[2016-12-10] MEDS: FLUTICASONE NASAL SPRAY 50 MCG/SPRY 120 SPRAY/16 GM NASL SCH ×2 (11:16→21:53)
[2016-12-10] MEDS: ONDANSETRON HCL INJ/PF 4 MG/2 ML SDV IV PRN (16:22)
[2016-12-10] MEDS: LANSOPRAZOLE 30 MG TAB.RAP.DR PO SCH (16:40)
[2016-12-10] MEDS: INSULIN LISPRO 100 UNIT/ML 3 ML VIAL SUBCUT SCH (16:44)
[2016-12-10] MEDS: OLANZAPINE 2.5 MG TABLET PO SCH (18:20)
[2016-12-10] MEDS: INSULIN GLARGINE,HUM.REC.ANLOG 1,000 UNIT/10 ML UNIT SUBCUT SCH (21:54)
[2016-12-10] MEDS ORDERED: INSULIN LISPRO 100 UNIT/ML 3 ML VIAL SUBCUT ONE (22:30)
--- NOTE | 2016-12-10 23:25 | PDOC PROGRESS REPORT ---
Subjective Progress Note for:: 12/10/16 Subjective:: Still having stomach pain and nausea. Feels better when compared to admission, Physical Exam Vital Signs: Temp Pulse Resp BP Pulse Ox 97.6 F 80 16 111/70 100 12/10/16 03:53 12/10/16 03:53 12/10/16 03:53 12/10/16 03:53 12/10/16 03:53 Intake & Output 12/09/16 12/10/16 12/11/16 06:59 06:59 06:59 Intake Total 1945 Balance 194 Weight 71 kg General appearance: PRESENT: no acute distress, cooperative Eye exam: PRESENT: EOMI, PERRLA Mouth exam: PRESENT: moist, neck supple Neck exam: PRESENT: full ROM. ABSENT: JVD, tenderness Respiratory exam: PRESENT: chest wall tenderness, clear to auscultation alfonso Cardiovascular exam: PRESENT: RRR. ABSENT: diastolic murmur, systolic murmur Vascular exam: PRESENT: normal capillary refill GI/Abdominal exam: PRESENT: normal bowel sounds, tenderness - mid egpigastric. ABSENT: guarding, organolmegaly Extremities exam: PRESENT: full ROM. ABSENT: tenderness Neurological exam: PRESENT: altered, oriented to person, oriented to place, oriented to time, oriented to situation Psychiatric exam: PRESENT: depressed Results Laboratory Results: 12/10/16 05:22 12/10/16 05:22 12/09/16 12/10/16 12/10/16 21:40 01:32 05:22 WBC RBC Hgb Hct MCV MCH MCHC RDW Plt Count Seg Neutrophils % Lymphocytes % Monocytes % Eosinophils % Basophils % Absolute Neutrophils Absolute Lymphocytes Absolute Monocytes Absolute Eosinophils Absolute Basophils Sodium 143.6 139.6 Potassium 3.6 3.9 Chloride 113 H 114 H Carbon Dioxide 21 L 17 L Anion Gap 10 9 BUN 19 16 Creatinine 0.85 0.71 Est GFR ( Amer) > 60 > 60 Est GFR (Non-Af Amer) > 60 > 60 Glucose 102 234 H Calcium 9.2 8.6 Magnesium 1.8 12/10/16 12/10/16 05:22 05:22 WBC 5.7 RBC 3.61 L Hgb 9.8 L Hct 29.4 L MCV 82 MCH 27.1 MCHC 33.3 RDW 17.2 H Plt Count 216 Seg Neutrophils % 49.5 Lymphocytes % 35.1 Monocytes % 11.7 Eosinophils % 2.7 Basophils % 1.0 Absolute Neutrophils 2.8 Absolute Lymphocytes 2.0 Absolute Monocytes 0.7 Absolute Eosinophils 0.2 Absolute Basophils 0.1 Sodium 141.6 Potassium 4.2 Chloride 114 H Carbon Dioxide 21 L Anion Gap 7 BUN 17 Creatinine 0.88 Est GFR ( Amer) > 60 Est GFR (Non-Af Amer) > 60 Glucose 129 H Calcium 8.9 Magnesium Impressions: Abdomen/Pelvis CT 12/09/16 00:00 IMPRESSION: NO ACUTE FINDING IN THE ABDOMEN OR PELVIS ON CT SCAN WITH IV CONTRAST. Chest X-Ray 12/09/16 16:59 IMPRESSION: NO SIGNIFICANT RADIOGRAPHIC FINDING IN THE CHEST. Assessment & Plan - Diagnosis (1) Anemia of chronic disease Is this a current diagnosis for this admission?: Yes Plan: Stable (2) DKA, type 1 Qualifiers: Diabetes mellitus complication detail: without coma Qualified Code(s): E10.10 - Type 1 diabetes mellitus with ketoacidosis without coma Is this a current diagnosis for this admission?: Yes Plan: Off insulin drip. To add premeal lispro and continue with longacting and sliding scale (3) Diabetic gastroparesis Is this a current diagnosis for this admission?: Yes Plan: Patient made aware opioids may worsen problem. Kiko add zyprexa for nausea and vomiting. To follow up response. - Time Time Spent with patient: 15-24 minutes Medications reviewed and adjusted accordingly: Yes Anticipated discharge: Home Within: within 24 hours - Inpatient Certification Medical Necessity: Need Close Monitoring Due to Risk of Patient Decompensation
[2016-12-11] MEDS: SUCRALFATE SUSP 1 GM/10 ML UDCUP PO SCH ×3 (00:32→11:49)
[2016-12-11] MEDS: NORMAL SALINE 1000 ML 1,000 ML IV PRN ×2 (00:33→09:49)
[2016-12-11 06:35] LABS: ABSOLUTE BASOPHILS # (AUTO) 0.1 10^3/uL (0.0-0.2); ABSOLUTE EOSINOPHILS # (AUTO) 0.2 10^3/uL (0.0-0.6); ABSOLUTE MONOCYTES (AUTO) 0.6 10^3/uL (0.1-1.4); ABSOLUTE NEUT (AUTO) 3.2 10^3/uL (1.7-8.2); EOSINOPHILS % (AUTO) 2.9 % (0-6); HEMATOCRIT 30.1 % (37.9-51.0); HGB HCT DIFFERENCE -0.1; LYMPHOCYTES % (AUTO) 32.9 % (13-45); MEAN CORPUSCULAR HEMOGLOBIN 26.9 pg (27.0-33.4); MEAN CORPUSCULAR HGB CONC 33.3 g/dL (32.0-36.0); MEAN CORPUSCULAR VOLUME 81 fl (80-97); MONOCYTES % (AUTO) 10.4 % (3-13); RED BLOOD COUNT 3.72 10^6/uL (4.35-5.55); RED CELL DISTRIBUTION WIDTH 16.6 % (11.5-14.0); SEGMENTED NEUTROPHILS % (AUTO) 52.8 % (42-78); WHITE BLOOD COUNT 6.1 10^3/uL (4.0-10.5)
[2016-12-11] MEDS: ACETAMINOPHEN 325 MG TABLET PO PRN ×2 (08:09→12:21)
[2016-12-11] MEDS: ONDANSETRON HCL INJ/PF 4 MG/2 ML SDV IV PRN (08:10)
[2016-12-11] MEDS: LANSOPRAZOLE 30 MG TAB.RAP.DR PO SCH ×2 (08:10→17:13)
[2016-12-11] MEDS: INSULIN LISPRO 100 UNIT/ML 3 ML VIAL SUBCUT PRN (08:10)
[2016-12-11] MEDS: INSULIN LISPRO 100 UNIT/ML 3 ML VIAL SUBCUT SCH ×3 (08:11→17:13)
[2016-12-11] MEDS: OLANZAPINE 2.5 MG TABLET PO SCH (09:49)
[2016-12-11] MEDS: INSULIN GLARGINE,HUM.REC.ANLOG 1,000 UNIT/10 ML UNIT SUBCUT SCH (09:50)
[2016-12-11] MEDS: FLUTICASONE NASAL SPRAY 50 MCG/SPRY 120 SPRAY/16 GM NASL SCH (09:56)
[2016-12-11 15:24] VITALS: BP 109/64
--- NOTE | 2016-12-12 03:42 | PDOC DISCHARGE SUMMARY ---
General - Admit/Disc Date/PCP Admission Date/Primary Care Provider: 12/09/16 21:37 Discharge Date: 12/11/16 - Discharge Diagnosis (1) Anemia of chronic disease Is this a current diagnosis for this admission?: Yes (2) DKA, type 1 Is this a current diagnosis for this admission?: Yes (3) Diabetic gastroparesis Is this a current diagnosis for this admission?: Yes - Additional Information Resuscitation Status: Full Code Home Medications: Insulin Glargine,Hum.rec.anlog [Lantus Solostar] 30 units SQ Q12 12/10/16 Insulin Lispro [Humalog Insulin (Lispro) 100 unit/mL] 8 units SQ MEALS 12/10/16 Omeprazole 40 mg PO BID 12/10/16 Insulin Glargine,Hum.rec.anlog [Lantus Insulin 100 Unit/1 ml 10 ml] 32 unit SUBCUT Q12 unit 12/11/16 Metoclopramide HCl [Reglan 10 mg Tablet] 10 mg PO ACHS #60 tablet 12/11/16 Olanzapine [Zyprexa 2.5 mg Tablet] 2.5 mg PO BID #30 tablet 12/11/16 History of Present Illness History of Present Illness: CHESTER MCKEON is a 36 year old male who presented to ED complaining of stomach pain and nausea and vomiting. Patient was found to be on DKA which required further management in a hospital setting. Hospital Course Hospital Course: Patient responded to fluids and insulin drip with further transition to lanuts, premeal lispro and sliding scale. He is currently on lantus and uses Novolin 70/ 30 at home since unable to afford novolog or lispro. Nausea improved but abdominal pain persisted. Patient had been made aware need to avoid opioid use since can aggravate gastroparesis. He has been encouraged to follow up with PCP since may need referral to tertiary center for the evaluation and treatment of gastroparesis, eg. via gastric sleeve. He was discharged on reglan and zyprexa ( for severe nausea/vomiting). Patient had been tolerating diet and since improved prompted to discharge under stable condition. Physical Exam Vital Signs: Temp Pulse Resp BP Pulse Ox 98.1 F 92 19 122/85 100 12/11/16 11:41 12/11/16 11:41 12/11/16 11:41 12/11/16 11:41 12/11/16 11:41 Intake & Output 12/10/16 12/11/16 12/12/16 06:59 06:59 06:59 Intake Total 1945 5128 710 Output Total 2900 400 Balance 1945 848 310 Weight 71 kg 71 kg General appearance: PRESENT: no acute distress, well-developed, well-nourished Head exam: PRESENT: atraumatic, normocephalic Eye exam: PRESENT: EOMI, PERRLA Ear exam: PRESENT: normal external ear exam Mouth exam: PRESENT: moist, neck supple Neck exam: PRESENT: full ROM. ABSENT: JVD, tenderness Respiratory exam: PRESENT: clear to auscultation alfonso Cardiovascular exam: PRESENT: RRR. ABSENT: diastolic murmur, gallop, systolic murmur Vascular exam: PRESENT: normal capillary refill GI/Abdominal exam: PRESENT: normal bowel sounds, soft, tenderness. ABSENT: distended, firm, guarding Extremities exam: PRESENT: full ROM. ABSENT: pedal edema Neurological exam: PRESENT: alert, oriented to person, oriented to place, oriented to time, oriented to situation Psychiatric exam: PRESENT: appropriate affect Results Laboratory Results: 12/11/16 05:57 12/10/16 05:22 12/11/16 05:57 WBC 6.1 RBC 3.72 L Hgb 10.0 L Hct 30.1 L MCV 81 MCH 26.9 L MCHC 33.3 RDW 16.6 H Plt Count 234 Seg Neutrophils % 52.8 Lymphocytes % 32.9 Monocytes % 10.4 Eosinophils % 2.9 Basophils % 1.0 Absolute Neutrophils 3.2 Absolute Lymphocytes 2.0 Absolute Monocytes 0.6 Absolute Eosinophils 0.2 Absolute Basophils 0.1 Impressions: Abdomen/Pelvis CT 12/09/16 00:00 IMPRESSION: NO ACUTE FINDING IN THE ABDOMEN OR PELVIS ON CT SCAN WITH IV CONTRAST. Chest X-Ray 12/09/16 16:59 IMPRESSION: NO SIGNIFICANT RADIOGRAPHIC FINDING IN THE CHEST.
== END 2016-12-11 17:57 | disposition home or self-care (01) | DRG 638 ==
LOC: ER 15:37 → EH 19:52 → UNDOADMIN 19:52 → EH 21:37 → 3S 22:03
PROVIDERS: ADMIT Family Medicine; ATTEND Family Medicine
DX: E10.10 Type 1 diabetes mellitus with ketoacidosis without coma (principal); E87.1 Hypo-osmolality and hyponatremia; E10.43 Type 1 diabetes mellitus with diabetic autonomic (poly)neuropathy; K31.84 Gastroparesis; D63.8 Anemia in other chronic diseases classified elsewhere; E78.5 Hyperlipidemia, unspecified; I10 Essential (primary) hypertension; K21.9 Gastro-esophageal reflux disease without esophagitis; K44.9 Diaphragmatic hernia without obstruction or gangrene; F32.9 Major depressive disorder, single episode, unspecified; F17.210 Nicotine dependence, cigarettes, uncomplicated; Z79.4 Long term (current) use of insulin; Z91.19 Patient's noncompliance with other medical treatment and regimen; Z71.6 Tobacco abuse counseling
CPT/HCPCS: 36415; 71020; 74177; 80048; 80053; 80307; 81001; 82010; 82803; 82962; 83690; 83735; 85025; 96361; 96374; 96375; 99285; J1815; J1885; J2270; J2405; J2765; J3480; J3490; J7030; S0164

== ENCOUNTER 2016-12-21 23:46 | Emergency (ER) | payer OTHER ==
[2016-12-22] MEDS ORDERED: NORMAL SALINE 1000 ML 1,000 ML IV ONE (00:12)
[2016-12-22] MEDS ORDERED: HALOPERIDOL LACTATE INJ 5 MG/1 ML VIAL IV ONE (00:13)
[2016-12-22 00:51] LABS: VENOUS BLOOD BASE EXCESS -0.7 mmol/L; VENOUS BLOOD HCO3 25.8 mmol/L (20-32); VENOUS BLOOD PCO2 49.7 mmHg (35-63); VENOUS BLOOD PH 7.33 (7.30-7.42)
[2016-12-22 00:53] LABS: ABSOLUTE BASOPHILS # (AUTO) 0.1 10^3/uL (0.0-0.2); ABSOLUTE EOSINOPHILS # (AUTO) 0.2 10^3/uL (0.0-0.6); ABSOLUTE LYMPHOCYTES (AUTO) 1.6 10^3/uL (0.5-4.7); ABSOLUTE MONOCYTES (AUTO) 0.4 10^3/uL (0.1-1.4); ABSOLUTE NEUT (AUTO) 1.8 10^3/uL (1.7-8.2); BASOPHILS % (AUTO) 1.4 % (0-2); EOSINOPHILS % (AUTO) 4.2 % (0-6); HEMATOCRIT 38.1 % (37.9-51.0); HEMOGLOBIN 12.4 g/dL (13.5-17.0); HGB HCT DIFFERENCE -0.9; LYMPHOCYTES % (AUTO) 39.7 % (13-45); MEAN CORPUSCULAR HGB CONC 32.6 g/dL (32.0-36.0); MEAN CORPUSCULAR VOLUME 83 fl (80-97); MONOCYTES % (AUTO) 9.1 % (3-13); RED BLOOD COUNT 4.61 10^6/uL (4.35-5.55); SEGMENTED NEUTROPHILS % (AUTO) 45.6 % (42-78)
[2016-12-22 01:13] LABS: ALANINE AMINOTRANSFERASE 51 U/L (21-72); ALBUMIN 4.2 g/dL (3.5-5.0); ALKALINE PHOSPHATASE 130 U/L (38-126); ANION GAP 12 (5-19); ASPARTATE AMINO TRANSFERASE 29 U/L (17-59); BILIRUBIN,DIRECT 0.4 mg/dL (0.0-0.4); BILIRUBIN,TOTAL 0.5 mg/dL (0.2-1.3); BLOOD UREA NITROGEN 24 mg/dL (7-20); CALCIUM 9.5 mg/dL (8.4-10.2); CARBON DIOXIDE 25 mmol/L (22-30); CHLORIDE 100 mmol/L (98-107); CREATININE RESULT 0.87 mg/dL (0.52-1.25); GLUCOSE 348 mg/dL (75-110); POTASSIUM 4.1 mmol/L (3.6-5.0); SODIUM 136.9 mmol/L (137-145); TOTAL PROTEIN 7.3 g/dL (6.3-8.2)
[2016-12-22 02:04] LABS: ADD ON TESTING BLD IN LAB ACKNOWLEDGE
[2016-12-22 02:15] VITALS: BP 108/84
[2016-12-22 02:17] LABS: LIPASE 234.5 U/L (23-300)
--- NOTE | 2016-12-22 02:27 | ER Document Report ---
ED General - General Chief Complaint: Epigastric Pain Stated Complaint: BREATHING DIFFICULTY,BLOOD SUGAR PROBLEM Time Seen by Provider: 12/22/16 00:11 Notes: Patient is a 36-year-old male with a past medical history of diabetes with insulin dependence and poor control, cocaine abuse, chronic abdominal pain with associated gastroparesis who presents with ongoing epigastric abdominal pain. Patient reports that this is a chronic, unchanged condition. He describes as a constant, dull, throbbing pain to the upper abdomen. Notes that attempt to eating or drinking worsens the pain. He has been trying Reglan with moderate improvement of the pain. He also notes that his blood sugars have continued to be uncontrolled despite his use of insulin. He does not have a primary care doctor with him to follow-up. Nothing is new or different about his symptoms today that prompted the emergency department visit. He has not had any hematemesis, melena or hematochezia. TRAVEL OUTSIDE OF THE [place] IN LAST 30 DAYS: No - Related Data Allergies/Adverse Reactions: No Known Allergies Allergy (Verified 11/24/16 16:05) Past Medical History - General Information source: Patient - Social History Smoking Status: Current Every Day Smoker Chew tobacco use (# tins/day): No Frequency of alcohol use: None Drug Abuse: None Lives with: Homeless Family History: DM, Hyperlipidemia, Hypertension Patient has suicidal ideation: No Patient has homicidal ideation: No - Past Medical History Cardiac Medical History: Reports: Hx Hypercholesterolemia - On no medication for same., Hx Hypertension - Taken off medication for same. Denies: Hx Atrial Fibrillation, Hx Congestive Heart Failure, Hx Coronary Artery Disease, Hx Heart Attack, Hx Pulmonary Embolism Pulmonary Medical History: Denies: Hx Asthma, Hx COPD, Hx Sleep Apnea Neurological Medical History: Denies: Hx Seizures Endocrine Medical History: Reports: Hx Diabetes Mellitus Type 1 - 4 years. Denies: Hx Diabetes Mellitus Type 2, Hx Hyperthyroidism, Hx Hypothyroidism Renal/ Medical History: Denies: Hx Peritoneal Dialysis GI Medical History: Reports: Hx Gastroesophageal Reflux Disease, Hx Pancreatitis. Denies: Hx Cirrhosis, Hx Hepatitis Musculoskeltal Medical History: Denies Hx Arthritis Psychiatric Medical History: Reports: Hx Depression Infectious Medical History: Denies: Hx Hepatitis Past Surgical History: Reports: Hx Orthopedic Surgery - back. Denies: Hx Appendectomy, Hx Cholecystectomy, Hx Tonsillectomy - Immunizations Hx Diphtheria, Pertussis, Tetanus Vaccination: Yes Hx Pneumococcal Vaccination: 11/09/11 Review of Systems - Review of Systems Notes: Constitutional: Negative for fever. HENT: Negative for sore throat. Eyes: Negative for visual changes. Cardiovascular: Negative for chest pain. Respiratory: Negative for shortness of breath. Gastrointestinal: Positive for abdominal pain and vomiting Genitourinary: Negative for dysuria. Musculoskeletal: Negative for back pain. Skin: Negative for rash. Neurological: Negative for headaches, weakness or numbness. 10 point ROS negative except as marked above and in HPI. Physical Exam - Vital signs Vitals: Pulse Ox 100 12/21/16 23:56 Interpretation: Normal Notes: PHYSICAL EXAMINATION: GENERAL: Well-appearing, well-nourished and in no acute distress. HEAD: Atraumatic, normocephalic. EYES: Pupils equal round and reactive to light, extraocular movements intact, sclera anicteric, conjunctiva are normal. ENT: nares patent, oropharynx clear without exudates. Moderately dry mucous membranes. NECK: Normal range of motion, supple without lymphadenopathy LUNGS: Breath sounds clear to auscultation bilaterally and equal. No wheezes rales or rhonchi. HEART: Regular rate and rhythm without murmurs ABDOMEN: Soft, mild epigastric tenderness on palpation otherwise no focal abdominal tenderness, normoactive bowel sounds. No guarding, no rebound. No masses appreciated. EXTREMITIES: Normal range of motion, no pitting or edema. No cyanosis. NEUROLOGICAL: No focal neurological deficits. Moves all extremities spontaneously and on command. PSYCH: Normal mood, normal affect. SKIN: Warm, Dry, normal turgor, no rashes or lesions noted. Course - Re-evaluation Re-evalutation: 12/22/16 02:22 Patient presents with chronic abdominal pain and concerns of possibly being in diabetic ketoacidosis. Patient was just discharged from the hospital approximately 15 days ago. On examination he does have some mild epigastric abdominal tenderness but otherwise no focal abdominal tenderness. His laboratories do not show any findings consistent with diabetic ketoacidosis. Lipase is normal. He does admit that the pain has been unchanged since discharge but he was frustrated that had not been getting better so wanted to be reassessed. He has been able to tolerate oral intake here in the emergency department. Symptoms did improve after receiving IV fluids and haloperidol. I have encouraged the patient to follow-up with endocrinology as he continues to have uncontrolled glucose levels which are worsening his already existing gastroparesis. I do not suspect any acute alternative life-threatening diagnoses at this time including acute biliary pathology, mesenteric ischemia, bowel perforation, bowel obstruction, or acute appendicitis based on exam and history. At this time will discharge with return precautions and follow-up recommendations. Verbal discharge instructions given a the bedside and opportunity for questions given. Medication warnings reviewed. Patient is in agreement with this plan and has verbalized understanding of return precautions and the need for primary care follow-up in the next 24-72 hours. - Vital Signs Vital signs: Temp Pulse Resp BP Pulse Ox 97.6 F 88 18 108/84 96 12/22/16 00:04 12/22/16 00:04 12/22/16 02:01 12/22/16 02:01 12/22/16 02:01 - Laboratory Result Diagrams: 12/22/16 00:30 12/22/16 00:30 Laboratory results interpreted by me: 12/22/16 12/22/16 00:30 00:30 Hgb 12.4 L RDW 17.0 H Sodium 136.9 L BUN 24 H Glucose 348 H Alkaline Phosphatase 130 H - EKG Interpretation by Me Additional EKG results interpreted by me: 12/22/16 02:24 Normal sinus rhythm. Rate 90. No ST elevations or depressions. QTC is 460. Discharge - Discharge Clinical Impression: Epigastric abdominal pain, Diabetic gastroparesis Condition: Fair Disposition: HOME, SELF-CARE Additional Instructions: Please follow-up with endocrinology and your primary care doctor at your earliest ability. Return to the emergency department for worsening pain, persistent vomiting, fever, or any other symptoms that are worrisome to you.
--- NOTE | 2016-12-22 09:40 | EKG REPORT ---
SEVERITY:- NORMAL ECG - SINUS RHYTHM : Confirmed by: Ruchi King 22-Dec-2016 09:39:16
== END 2016-12-22 02:43 | disposition home or self-care (01) ==
LOC: ER 23:46
DX: R10.13 Epigastric pain (principal); E10.43 Type 1 diabetes mellitus with diabetic autonomic (poly)neuropathy; K31.84 Gastroparesis; Z79.4 Long term (current) use of insulin; F17.200 Nicotine dependence, unspecified, uncomplicated; E78.00 Pure hypercholesterolemia, unspecified; I10 Essential (primary) hypertension; Z59.0 Homelessness
CPT/HCPCS: 93005; 99285; 96361; 96374; 36415; 83690; 85025; 80053; 82803; 93010; J1630; J7030

== ENCOUNTER 2016-12-31 09:06 | Inpatient (IN) | payer OTHER ==
--- NOTE | 2016-12-31 09:30 | ER Document Report ---
Doctor's Note Notes: 12/31/16 09:24 Rapid assessment performed at triage. 36-year-old male. History of type 1 diabetes. 2 small breathing. Pains all over. Chest pain. Tachycardia. Orders placed. Upgraded to level 2 and request made for main side ER. 12/31/16 09:28 Temp Pulse Resp BP Pulse Ox 12/31/16 09:08 97.5 F 124 H 18 134/77 H 100 General: Alert, acute distress HEENT: Dry mucous membranes Heart: Heart rate with tachycardia, no murmurs, no rubs, no clicks Lungs: Tachypneic but clear Abdomen: Abdomen is soft, tenderness diffusely Extremities:Moving all extremities. Equal strength bilaterally in the upper lower extremities. No significant deformity Skin: No lesions. Skin intact Assessment and plan: Possible DKA. Orders begun, transfer back to main side ER immediately
--- NOTE | 2016-12-31 09:39 | ER Document Report ---
ED General - General Mode of Arrival: Ambulatory Information source: Patient TRAVEL OUTSIDE OF THE [place] IN LAST 30 DAYS: No <CHESTER PATTERSON - Last Filed: 12/31/16 10:00> <BRI EASTON - Last Filed: 12/31/16 11:46> - General Chief Complaint: Chest Pain Stated Complaint: CHEST PAIN, DIFFICULTY BREATHING Time Seen by Provider: 12/31/16 09:21 Notes: Patient is a 36-year-old male with a history of poorly controlled type 1 diabetes and pancreatitis that presents to the emergency department today with complaints of uncontrolled blood glucose levels at home. Patient has been in DKA several times in the past. Patient states that the last time he took insulin was yesterday and his sugars have been running high for the last few days. Patient states that his insulin is locked up at his house and he cannot get to it. Patient has had associated vomiting, abdominal pain, cough, and fevers. (CHESTER PATTERSON) - Related Data Allergies/Adverse Reactions: No Known Allergies Allergy (Verified 12/31/16 09:08) Past Medical History - General Information source: Patient, [facility] Records - Social History Smoking Status: Current Every Day Smoker Cigarette use (# per day): Yes Chew tobacco use (# tins/day): No Frequency of alcohol use: None Drug Abuse: None Lives with: Family Family History: Reviewed & Not Pertinent, DM, Hyperlipidemia, Hypertension Patient has suicidal ideation: No Patient has homicidal ideation: No - Past Medical History Cardiac Medical History: Reports: Hx Hypercholesterolemia - On no medication for same., Hx Hypertension - Taken off medication for same. Neurological Medical History: Denies: Hx Seizures Endocrine Medical History: Reports: Hx Diabetes Mellitus Type 1 - 4 years GI Medical History: Reports: Hx Gastroesophageal Reflux Disease, Hx Pancreatitis Psychiatric Medical History: Reports: Hx Depression Past Surgical History: Reports: Hx Orthopedic Surgery - back - Immunizations Hx Diphtheria, Pertussis, Tetanus Vaccination: Yes Hx Pneumococcal Vaccination: 11/09/11 <CHESTER PATTERSON - Last Filed: 12/31/16 10:00> Review of Systems - Review of Systems Constitutional: See HPI, Fever, Other - elevated BGLs EENT: No symptoms reported Cardiovascular: No symptoms reported Respiratory: See HPI, Cough Gastrointestinal: See HPI, Abdominal pain, Nausea, Vomiting Genitourinary: No symptoms reported Male Genitourinary: No symptoms reported Musculoskeletal: No symptoms reported Skin: No symptoms reported Hematologic/Lymphatic: No symptoms reported Neurological/Psychological: No symptoms reported -: Yes All other systems reviewed and negative <LEONARDOCHESTER - Last Filed: 12/31/16 10:00> Physical Exam <CHESTER PATTERSON - Last Filed: 12/31/16 10:00> <BRI EASTON - Last Filed: 12/31/16 11:46> - Vital signs Vitals: Temp Pulse Resp BP Pulse Ox 97.5 F 124 H 18 134/77 H 100 12/31/16 09:08 12/31/16 09:08 12/31/16 09:08 12/31/16 09:08 12/31/16 09:08 - Notes Notes: Physical Exam: General: Alert, appears uncomfortable. Strong Ketone odor. HEENT: Normocephalic. Atraumatic. PERRL. Extraocular movements intact. Oropharynx clear. Dry mucous membranes. Neck: Supple. Non-tender. Respiratory: No respiratory distress. Tachypneic. Kussmaul breathing. Cardiovascular: Tachycardic, regular rhythm. Abdominal: Epigastric tenderness with palpation. No distension. Normal Bowel Sounds. Back: Non-tender. No deformity or step off. Extremities: Moves all four extremities. Upper extremities: Normal inspection. Normal ROM. Lower extremities: Normal inspection. No edema. Normal ROM. Neurological: Normal cognition. AAOx4. Normal speech. Psychological: Normal affect. Normal Mood. Skin: Warm. Dry. Normal color. (CHESTER PATTERSON) Course - Laboratory Result Diagrams: 12/31/16 11:05 12/31/16 09:54 - EKG Interpretation by Wy EKG shows normal: Sinus rhythm, [place], QRS Complexes, ST-T Waves. abnormal: Intervals - Prolonged QT interval Rate: Tachycardia - 116 When compared to previous EKG there are: No significant change - Consults Yesica Naranjo NP Time consulted: 11:45 Consulted provider: will come to ER <BRI EASTON - Last Filed: 12/31/16 11:46> - Vital Signs Vital signs: Temp Pulse Resp BP Pulse Ox 97.5 F 124 H 13 134/77 H 100 12/31/16 09:08 12/31/16 09:08 12/31/16 11:00 12/31/16 09:08 12/31/16 11:00 - Laboratory Laboratory results interpreted by me: 12/31/16 12/31/16 12/31/16 09:54 11:05 11:14 WBC 17.2 H Hgb 12.6 L MCH 26.2 L MCHC 29.8 L RDW 16.8 H VBG pH 6.98 L* VBG pCO2 14.7 L* VBG HCO3 3.4 L Sodium 132.2 L Potassium 6.5 H* Chloride 92 L Carbon Dioxide < 5 L* BUN 33 H Creatinine 1.51 H Est GFR (Non-Af Amer) 53 L Glucose 816 H* Calcium 10.3 H Direct Bilirubin 0.6 H Alkaline Phosphatase 173 H Lipase 423.6 H Critical Care Note - Critical Care Note Total time excluding time spent on procedures (mins): 40 <BRI EASTON - Last Filed: 12/31/16 11:46> Discharge <CHESTER PATTERSON - Last Filed: 12/31/16 10:00> - Discharge Admitting Provider: Hospitalist Unit Admitted: IMCU <BRI EASTON - Last Filed: 12/31/16 11:46> - Discharge Clinical Impression: Hyperglycemia due to type 1 diabetes mellitus, Noncompliance, Hyperkalemia, Metabolic acidosis, IDDM (insulin dependent diabetes mellitus) Diabetic ketoacidosis associated with type 1 diabetes mellitus Qualifiers: Diabetes mellitus complication detail: without coma Qualified Code(s): E10.10 - Type 1 diabetes mellitus with ketoacidosis without coma Pancreatitis Qualifiers: Chronicity: acute Pancreatitis type: unspecified pancreatitis type Acute pancreatitis complication: unspecified Qualified Code(s): K85.90 - Acute pancreatitis without necrosis or infection, unspecified Condition: Fair Disposition: ADMITTED INPATIENT Scribe Attestation: 12/31/16 11:42 I personally performed the services described in the documentation, reviewed and edited the documentation which was dictated to the scribe in my presence, and it accurately records my words and actions. (BRI EASTON) Scribe Documentation - Scribe Written by Scribe:: Sylvain Bansal, 12/31/2016 0947 acting as scribe for :: Ellie <LEONARDO,CHESTER - Last Filed: 12/31/16 10:00>
[2016-12-31] MEDS ORDERED: LIDOCAINE 2% VISCOUS SOLN 20 ML UDCUP PO ONE (09:40)
[2016-12-31] MEDS ORDERED: MORPHINE SULFATE 10 MG/ML INJ IV ONE (09:40)
[2016-12-31] MEDS ORDERED: ONDANSETRON HCL INJ/PF 4 MG/2 ML SDV IV ONE (09:40)
[2016-12-31] MEDS ORDERED: MAG HYDROX/AL HYDROX/SIMETH SUSP 30 ML UDCUP PO ONE (09:40)
[2016-12-31] MEDS ORDERED: INSULIN REG, HUMAN 100 UNIT/ML 3 ML VIAL (PYX) IV ONE (09:45)
[2016-12-31] MEDS: NORMAL SALINE 1000 ML 1,000 ML IV PRN ×2 (10:00→11:04)
[2016-12-31 10:38] LABS: ALANINE AMINOTRANSFERASE 46 U/L (21-72); ALBUMIN 4.9 g/dL (3.5-5.0); ALKALINE PHOSPHATASE 173 U/L (38-126); ASPARTATE AMINO TRANSFERASE 24 U/L (17-59); BILIRUBIN,DIRECT 0.6 mg/dL (0.0-0.4); BILIRUBIN,TOTAL 0.6 mg/dL (0.2-1.3); BLOOD UREA NITROGEN 33 mg/dL (7-20); CALCIUM 10.3 mg/dL (8.4-10.2); CHLORIDE 92 mmol/L (98-107); CREATININE RESULT 1.51 mg/dL (0.52-1.25); LIPASE 423.6 U/L (23-300); SODIUM 132.2 mmol/L (137-145); TOTAL PROTEIN 8.2 g/dL (6.3-8.2)
[2016-12-31 11:07] LABS: GLUCOSE 816 mg/dL (75-110)
[2016-12-31 11:08] LABS: POTASSIUM 6.5 mmol/L (3.6-5.0)
[2016-12-31 11:10] LABS: CARBON DIOXIDE < 5 mmol/L (22-30)
[2016-12-31 11:31] LABS: ADD ON TESTING BLD IN LAB ACKNOWLEDGE
[2016-12-31 11:31] LABS: VENOUS BLOOD BASE EXCESS -26.6 mmol/L; VENOUS BLOOD HCO3 3.4 mmol/L (20-32)
[2016-12-31] MEDS ORDERED: NORMAL SALINE 1000 ML 1,000 ML IV ONE ×2 (11:31→12:19)
[2016-12-31 11:34] LABS: VENOUS BLOOD PCO2 14.7 mmHg (35-63); VENOUS BLOOD PH 6.98 (7.30-7.42)
[2016-12-31 11:34] LABS: HEMATOCRIT 42.3 % (37.9-51.0); HEMOGLOBIN 12.6 g/dL (13.5-17.0); MEAN CORPUSCULAR HEMOGLOBIN 26.2 pg (27.0-33.4); MEAN CORPUSCULAR HGB CONC 29.8 g/dL (32.0-36.0); RED BLOOD COUNT 4.81 10^6/uL (4.35-5.55); RED CELL DISTRIBUTION WIDTH 16.8 % (11.5-14.0); WHITE BLOOD COUNT 17.2 10^3/uL (4.0-10.5)
[2016-12-31 11:37] LABS: HGB HCT DIFFERENCE -4.5
[2016-12-31 11:38] LABS: MEAN CORPUSCULAR VOLUME 88 fl (80-97)
[2016-12-31 11:43] LABS: MAGNESIUM 2.4 mg/dL (1.6-2.3)
[2016-12-31 11:51] LABS: AMORPHOUS SEDIMENT,URINE TRACE /HPF; APPEARANCE,URINE CLEAR; BILIRUBIN,URINE NEGATIVE (NEGATIVE); GLUCOSE, URINE >=500 mg/dL (NEGATIVE); KETONES,URINE 80 mg/dL (NEGATIVE); LEUKOCYTE ESTERASE,URINE NEGATIVE (NEGATIVE); NITRITE,URINE NEGATIVE (NEGATIVE); PROTEIN,URINE 30 mg/dL (NEGATIVE); URINE SPECIFIC GRAVITY 1.023; UROBILINOGEN,URINE NEGATIVE mg/dL (<2.0)
[2016-12-31 11:57] LABS: BAND NEUTROPHILS % (MANUAL) 2 % (3-5); BASOPHILS % (MANUAL) 0 % (0-2); EOSINOPHILS % (MANUAL) 0 % (0-6); LYMPHOCYTES % (MANUAL) 4 % (13-45); NUCLEATED RED BLOOD CELLS 1 /100 WBC (0); TOTAL CELLS COUNTED 100
[2016-12-31 12:00] LABS: ANISOCYTOSIS 1+; HYPOCHROMASIA SLIGHT; OVALOCYTES 1+; POIKILOCYTOSIS SLIGHT; POLYCHROMASIA 1+; TOXIC VACUOLATION PRESENT
[2016-12-31] MEDS ORDERED: DEXTROSE 50%-WATER 25 GM/50 ML DISP.SYRIN IV PRN (13:16)
[2016-12-31] MEDS ORDERED: GLUCAGON,HUMAN RECOMB 1 MG INJ SUBCUT PRN (13:16)
[2016-12-31] MEDS ORDERED: DEXTROSE 40% GEL 15 GM TUBE PO PRN ×2 (13:16)
[2016-12-31] MEDS ORDERED: ACETAMINOPHEN 325 MG TABLET PO PRN (13:16)
[2016-12-31] MEDS ORDERED: NORMAL SALINE 1000 ML 1,000 ML IV PRN (13:16)
[2016-12-31] MEDS ORDERED: NORMAL SALINE 100 ML with INSULIN REGULAR, HUMAN 100 UNIT IV PRN ×2 (13:24)
[2016-12-31] MEDS ORDERED: MORPHINE SULFATE 10 MG/ML INJ IV PRN (13:26)
[2016-12-31] MEDS ORDERED: ENOXAPARIN SODIUM INJ 40 MG/0.4 ML DISP.SYRIN SUBCUT ONE (13:45)
--- NOTE | 2016-12-31 15:46 | EKG REPORT ---
SEVERITY:- ABNORMAL ECG - SINUS TACHYCARDIA PROLONGED QT INTERVAL TALL T WAVES . COSIDER HYPERKALEMIA : Confirmed by: Carlota North MD 31-Dec-2016 15:45:13
--- NOTE | 2016-12-31 16:52 | PDOC H&P ---
History of Present Illness Admission Date/PCP: 12/31/16 12:08 Patient complains of: Abdominal pain, nausea with vomiting high blood sugars History of Present Illness: CHESTER MCKEON is a 36 year old male with a past medical history of diabetes mellitus type 1, pancreatitis, hypertension, hyperlipidemia who presents to the emergency department with a complaint of abdominal pain, nausea and vomiting, and uncontrolled blood sugar levels for the past 2 days. He reports that approximately a week ago he developed nasal congestion, rhinorrhea, sore throat , low-grade fever that improved with symptomatic treatment and denies any other recent illnesses. He does state that he was locked out of his house and unable to access his insulin today and believes that that precipitated his illness. Evaluation in the emergency department revealed leukocytosis, potassium of 6.5, bicarb less than 5, elevated creatinine, and glucose of 816. His estimated anion gap is greater than 47. Additionally, his lipase was elevated to 423. He received IV fluids, was placed on an insulin drip, and referred to the hospitalist service for admission. Past Medical History Cardiac Medical History: Reports: Hyperlipidema - On no medication for same., Hypertension - Taken off medication for same. Denies: Atrial Fibrillation, Congestive Heart Failure, Coronary Artery Disease, Myocardial Infarction, Pulmonary Embolism Pulmonary Medical History: Denies: Asthma, Chronic Obstructive Pulmonary Disease (COPD), Sleep Apnea Neurological Medical History: Denies: Seizures Endocrine Medical History: Reports: Diabetes Mellitus Type 1 - 4 years Denies: Diabetes Mellitus Type 2, Hyperthyroidism, Hypothyroidism GI Medical History: Reports: Gastroesophageal Reflux Disease, Other - Pancreatitis Denies: Cirrhosis, Hepatitis Musculoskeltal Medical History: Denies: Arthritis Psychiatric Medical History: Reports: Depression Hematology: Reports: Anemia - Chronic illnesses Past Surgical History Past Surgical History: Reports: Orthopedic Surgery - back Denies: Appendectomy, Cholecystectomy, Tonsillectomy Social History Information Source: Patient Lives with: Family Smoking Status: Current Every Day Smoker Frequency of Alcohol Use: None Hx Recreational Drug Use: No Drugs: None Hx Prescription Drug Abuse: No - Advance Directive Resuscitation Status: Full Code Family History Family History: Reviewed & Not Pertinent, DM, Hyperlipidemia, Hypertension Parental Family History Reviewed: Yes Children Family History Reviewed: Yes Sibling(s) Family History Reviewed.: Yes Medication/Allergy Home Medications: No Home Medications 12/31/16 Allergies/Adverse Reactions: No Known Allergies Allergy (Verified 12/31/16 09:08) Review of Systems Constitutional: PRESENT: as per HPI, fatigue, headache(s), weakness Eyes: ABSENT: as per HPI, visual disturbances, other Ears: ABSENT: as per HPI, hearing changes, other Nose, Mouth, and Throat: ABSENT: as per HPI, headache(s), mouth pain, sore throat, vertigo, other Cardiovascular: ABSENT: chest pain, dyspnea on exertion, edema, orthropnea, palpitations Respiratory: ABSENT: cough, hemoptysis Gastrointestinal: PRESENT: as per HPI, abdominal pain, nausea, vomiting. ABSENT : coffee ground emesis, constipation, diarrhea, hematemesis, hematochezia Genitourinary: ABSENT: dysuria, hematuria Musculoskeletal: ABSENT: joint swelling Integumentary: ABSENT: rash, wounds Neurological: ABSENT: abnormal gait, abnormal speech, confusion, dizziness, focal weakness, syncope Psychiatric: ABSENT: anxiety, depression, homidical ideation, suicidal ideation Endocrine: PRESENT: polydipsia, polyuria Hematologic/Lymphatic: ABSENT: easy bleeding, easy bruising Allergic/Immunologic: PRESENT: as per HPI. ABSENT: seasonal rhinorrhea Physical Exam Vital Signs: Temp Pulse Resp BP Pulse Ox 97.5 F 98 18 117/87 H 100 12/31/16 09:10 12/31/16 13:44 12/31/16 13:44 12/31/16 13:44 12/31/16 13:44 Intake & Output 12/30/16 12/31/16 01/01/17 06:59 06:59 06:59 Weight 68.6 kg General appearance: PRESENT: no acute distress, well-developed, well-nourished Head exam: PRESENT: atraumatic, normocephalic Eye exam: PRESENT: conjunctiva pink, EOMI, PERRLA. ABSENT: scleral icterus Ear exam: PRESENT: normal external ear exam Mouth exam: PRESENT: dry mucosa, tongue midline Neck exam: ABSENT: carotid bruit, JVD, lymphadenopathy, thyromegaly Respiratory exam: PRESENT: clear to auscultation alfonso, symmetrical, unlabored. ABSENT: rales, rhonchi, wheezes Cardiovascular exam: PRESENT: RRR, tachycardia. ABSENT: diastolic murmur, rubs , systolic murmur Pulses: PRESENT: normal dorsalis pedis pul Vascular exam: PRESENT: normal capillary refill GI/Abdominal exam: PRESENT: hypoactive bowel sounds, soft, tenderness - Generalized. ABSENT: ascites, distended, guarding, mass, organolmegaly, rebound Rectal exam: PRESENT: deferred Extremities exam: PRESENT: full ROM. ABSENT: calf tenderness, clubbing, pedal edema Neurological exam: PRESENT: alert, awake, oriented to person, oriented to place , oriented to time, oriented to situation, CN II-XII grossly intact. ABSENT: motor sensory deficit Psychiatric exam: PRESENT: appropriate affect, normal mood. ABSENT: homicidal ideation, suicidal ideation Skin exam: PRESENT: dry, intact, warm. ABSENT: cyanosis, rash Assessment & Plan - Diagnosis (1) Diabetic ketoacidosis associated with type 1 diabetes mellitus Qualifiers: Diabetes mellitus complication detail: without coma Qualified Code(s): E10.10 - Type 1 diabetes mellitus with ketoacidosis without coma Is this a current diagnosis for this admission?: Yes Plan: Patient is admitted with DKA with associated electrolytes disturbances; potassium of 6.5, sodium 132.2, elevated creatinine at 1.51, glucose 816. Anion gap is estimated at greater than 47. Be admitted to [facility] on continuous cardiac telemetry. He will receive IVFs and is placed on an insulin drip to titrate per protocol. Will monitor serial BMPs. He may have sips and chips but otherwise will be n.p.o. secondary to acute pancreatitis. Will ask registered dietitian and family life educator to meet with patient. Patient will also benefit from discharge planning services. (2) Pancreatitis Qualifiers: Chronicity: acute Pancreatitis type: unspecified pancreatitis type Acute pancreatitis complication: unspecified Qualified Code(s): K85.90 - Acute pancreatitis without necrosis or infection, unspecified Plan: Patient is admitted with DKA and acute pancreatitis with a history of the same. Lipase is elevated at 423. Recent lipid panel is acceptable. He will be treated with IV fluids, narcotic pain medications, antiemetics, and be kept n.p.o. except for sips and chips and medications. (3) Hyperkalemia Is this a current diagnosis for this admission?: Yes Plan: Initial labs demonstrate a potassium level of 6.5. He is likely to have a total body deficit secondary to DKA. He is currently receiving IV fluids and is on an insulin drip. Will monitor with serial BMPs. (4) Hyponatremia Is this a current diagnosis for this admission?: Yes Plan: Likely secondary to dehydration. Patient is currently receiving IV fluid resuscitation. We will continue to monitor with serial BMPs. (5) Leukocytosis Qualifiers: Leukocytosis type: unspecified Qualified Code(s): D72.829 - Elevated white blood cell count, unspecified Is this a current diagnosis for this admission?: Yes Plan: WBC 17.2. Patient does endorse a recent viral-like syndrome that resolved approximately 1 week ago. His elevated white count is most likely a result of his acute pancreatitis. Blood cultures pending . Will continue to monitor. (7) Anemia of chronic disease Is this a current diagnosis for this admission?: Yes Plan: Anemia of chronic disease; hemoglobin currently 12.6 which is his baseline. Will monitor. - Time Time Spent: 50 to 70 Minutes Smoking Cessation Education: 3 to 10 minutes Medications reviewed and adjusted accordingly: Yes - Inpatient Certification Based on my medical assessment, after consideration of the patient's comorbidities, presenting symptoms, or acuity I expect that the services needed warrant INPATIENT care.: Yes I certify that my determination is in accordance with my understanding of Medicare's requirements for reasonable and necessary INPATIENT services [42 CFR 412.3e].: Yes Medical Necessity: Need For IV Fluids, Need For Continuous Telemetry Monitoring , Need for Pain Control
[2016-12-31] MEDS: ONDANSETRON HCL INJ/PF 4 MG/2 ML SDV IV PRN (18:55)
[2016-12-31] MEDS: MORPHINE SULFATE 10 MG/ML INJ IV PRN ×2 (18:56→22:35)
[2016-12-31 19:01] LABS: BLOOD UREA NITROGEN 26 mg/dL (7-20); CALCIUM 8.3 mg/dL (8.4-10.2); CHLORIDE 112 mmol/L (98-107); CREATININE RESULT 1.07 mg/dL (0.52-1.25); GLUCOSE 255 mg/dL (75-110); SODIUM 140.4 mmol/L (137-145)
[2016-12-31 19:15] LABS: POTASSIUM 5.1 mmol/L (3.6-5.0)
[2016-12-31 19:26] LABS: ANION GAP 21 (5-19)
[2016-12-31 19:28] LABS: CARBON DIOXIDE 7 mmol/L (22-30)
[2016-12-31] MEDS ORDERED: DEXTROSE 5%-1/2 NORMAL SALINE 1,000 ML IV PRN (20:28)
[2016-12-31] MEDS: FAMOTIDINE INJ/PF 20 MG/2 ML SDV IV SCH (21:08)
[2016-12-31 22:28] LABS: ANION GAP 15 (5-19); BLOOD UREA NITROGEN 25 mg/dL (7-20); CALCIUM 8.3 mg/dL (8.4-10.2); CARBON DIOXIDE 13 mmol/L (22-30); CHLORIDE 112 mmol/L (98-107); CREATININE RESULT 0.96 mg/dL (0.52-1.25); GLUCOSE 184 mg/dL (75-110); POTASSIUM 4.5 mmol/L (3.6-5.0); SODIUM 139.6 mmol/L (137-145)
[2016-12-31] MEDS: PROMETHAZINE HCL INJ 25 MG/1 ML VIAL IV PRN (22:35)
[2016-12-31] MEDS ORDERED: POTASSI CL 20 MEQ/D5-1/2NS 1L 1,000 ML IV ONE (23:15)
[2016-12-31] MEDS: POTASSI CL 20 MEQ/D5-1/2NS 1L 1000 ML IV PRN (23:42)
[2017-01-01 02:48] LABS: ANION GAP 10 (5-19); BLOOD UREA NITROGEN 23 mg/dL (7-20); CALCIUM 7.9 mg/dL (8.4-10.2); CARBON DIOXIDE 13 mmol/L (22-30); CHLORIDE 115 mmol/L (98-107); CREATININE RESULT 0.88 mg/dL (0.52-1.25); GLUCOSE 132 mg/dL (75-110); POTASSIUM 4.2 mmol/L (3.6-5.0); SODIUM 138.4 mmol/L (137-145)
[2017-01-01] MEDS: ONDANSETRON HCL INJ/PF 4 MG/2 ML SDV IV PRN ×3 (03:15→20:56)
[2017-01-01] MEDS: MORPHINE SULFATE 10 MG/ML INJ IV PRN ×8 (03:16→23:52)
[2017-01-01] MEDS: DEXTROSE 50%-WATER 25 GM/50 ML DISP.SYRIN IV PRN ×2 (04:30→13:37)
[2017-01-01] MEDS: POTASSI CL 20 MEQ/D5-1/2NS 1L 1000 ML IV PRN ×2 (04:31→10:13)
[2017-01-01] MEDS: PROMETHAZINE HCL INJ 25 MG/1 ML VIAL IV PRN ×4 (06:54→23:52)
[2017-01-01 07:02] LABS: ARTERIAL BLOOD BASE EXCESS -10.3 mmol/L; ARTERIAL BLOOD O2 SATURATION 97.2 % (94-98)
[2017-01-01 07:07] LABS: ABSOLUTE NEUT (AUTO) 7.6 10^3/uL (1.7-8.2); BASOPHILS % (AUTO) 0.2 % (0-2); EOSINOPHILS % (AUTO) 0.3 % (0-6); HEMATOCRIT 30.3 % (37.9-51.0); LYMPHOCYTES % (AUTO) 10.5 % (13-45); MEAN CORPUSCULAR HEMOGLOBIN 27.1 pg (27.0-33.4); MEAN CORPUSCULAR HGB CONC 33.2 g/dL (32.0-36.0); MONOCYTES % (AUTO) 10.5 % (3-13); RED BLOOD COUNT 3.72 10^6/uL (4.35-5.55); RED CELL DISTRIBUTION WIDTH 16.4 % (11.5-14.0); SEGMENTED NEUTROPHILS % (AUTO) 78.5 % (42-78); WHITE BLOOD COUNT 9.7 10^3/uL (4.0-10.5)
[2017-01-01 07:09] LABS: HEMOGLOBIN 10.1 g/dL (13.5-17.0); MEAN CORPUSCULAR VOLUME 82 fl (80-97)
[2017-01-01 07:17] LABS: ANION GAP 11 (5-19); BLOOD UREA NITROGEN 21 mg/dL (7-20); CALCIUM 7.9 mg/dL (8.4-10.2); CARBON DIOXIDE 14 mmol/L (22-30); CHLORIDE 113 mmol/L (98-107); CREATININE RESULT 0.83 mg/dL (0.52-1.25); GLUCOSE 160 mg/dL (75-110); POTASSIUM 4.4 mmol/L (3.6-5.0); SODIUM 137.7 mmol/L (137-145)
[2017-01-01 07:28] LABS: CREATINE KINASE MB 3.57 ng/mL (<4.55)
[2017-01-01 07:29] LABS: TROPONIN I < 0.012 ng/mL
--- NOTE | 2017-01-01 08:10 | RADIOLOGY REPORT (SQ) ---
EXAM DESCRIPTION: ABDOMEN 2 VIEWS COMPLETED DATE/TIME: 01/01/2017 7:55 am REASON FOR STUDY: pain COMPARISON: 11/25/2016 NUMBER OF VIEWS: Two views. TECHNIQUE: Supine and erect/decubitus radiographic images of the abdomen acquired. LIMITATIONS: None. FINDINGS: FREE AIR: None. No abnormal gas collections. LUNG BASES: Clear. BOWEL GAS PATTERN: Nonobstructive pattern. No dilated loops or air fluid levels. CALCIFICATIONS: No suspicious calcifications. SOFT TISSUES: No gross mass or suggestion of organomegaly. HARDWARE: None in the abdomen. BONES: No acute fracture. No worrisome bone lesions. OTHER: No other significant finding. IMPRESSION: NO RADIOGRAPHIC EVIDENCE FOR ACUTE ABDOMINAL DISEASE. TECHNICAL DOCUMENTATION: JOB ID: [id number] [employer]- All Rights Reserved
[2017-01-01] MEDS: ENOXAPARIN SODIUM INJ 40 MG/0.4 ML DISP.SYRIN SUBCUT SCH (10:13)
[2017-01-01] MEDS: FAMOTIDINE INJ/PF 20 MG/2 ML SDV IV SCH ×2 (10:14→21:23)
[2017-01-01] MEDS: DOCUSATE SODIUM 100 MG CAPSULE PO SCH (10:14)
[2017-01-01 10:25] LABS: ANION GAP 12 (5-19); BLOOD UREA NITROGEN 21 mg/dL (7-20); CARBON DIOXIDE 14 mmol/L (22-30); CHLORIDE 112 mmol/L (98-107); CREATININE RESULT 0.78 mg/dL (0.52-1.25); GLUCOSE 96 mg/dL (75-110); POTASSIUM 3.8 mmol/L (3.6-5.0); SODIUM 138.2 mmol/L (137-145)
[2017-01-01] MEDS ORDERED: NORMAL SALINE 1000 ML 1,000 ML IV PRN (10:57)
[2017-01-01] MEDS ORDERED: INSULIN GLARGINE,HUM.REC.ANLOG 300 UNIT/3 ML INSULN.PEN SUBCUT ONE (11:30)
--- NOTE | 2017-01-01 12:49 | PDOC PROGRESS REPORT ---
Subjective Progress Note for:: 01/01/17 Subjective:: Pt is seen on morning rounds resting in bed comfortably. He wakes easily on name call and gentle shake. He reports improvement in his abdominal pain, stating that it is continuous and at it's best rated 2/10. He states that the morphine does provide good pain relief, however, does not fully alleviate discomfort or seem to last long enough. He reports continued nausea but has had no further episodes of emesis. He denies fever, chills, chest pain, dyspnea, cough, diarrhea and constipation. He has no additional questions or concerns today. Physical Exam Vital Signs: Temp Pulse Resp BP Pulse Ox 97.7 F 99 20 105/70 99 01/01/17 07:59 01/01/17 07:59 01/01/17 07:59 01/01/17 07:59 01/01/17 07:59 Intake & Output 12/31/16 01/01/17 01/02/17 06:59 06:59 06:59 Intake Total 2603 Output Total 1925 Balance 678 Weight 70.4 kg General appearance: PRESENT: no acute distress, well-developed, well-nourished Head exam: PRESENT: atraumatic, normocephalic Eye exam: PRESENT: conjunctiva pink, EOMI, PERRLA. ABSENT: scleral icterus Ear exam: PRESENT: normal external ear exam Mouth exam: PRESENT: moist, tongue midline Neck exam: ABSENT: carotid bruit, JVD, lymphadenopathy, thyromegaly Respiratory exam: PRESENT: clear to auscultation alfonso. ABSENT: rales, rhonchi, wheezes Cardiovascular exam: PRESENT: RRR. ABSENT: diastolic murmur, rubs, systolic murmur Pulses: PRESENT: normal dorsalis pedis pul Vascular exam: PRESENT: normal capillary refill GI/Abdominal exam: PRESENT: hypoactive bowel sounds, normal bowel sounds, soft, tenderness. ABSENT: distended, guarding, mass, organolmegaly, rebound Rectal exam: PRESENT: deferred Extremities exam: PRESENT: full ROM. ABSENT: calf tenderness, clubbing, pedal edema Neurological exam: PRESENT: alert, awake, oriented to person, oriented to place , oriented to time, oriented to situation, CN II-XII grossly intact. ABSENT: motor sensory deficit Psychiatric exam: PRESENT: appropriate affect, normal mood. ABSENT: homicidal ideation, suicidal ideation Skin exam: PRESENT: dry, intact, warm. ABSENT: cyanosis, rash Results Laboratory Results: 01/01/17 06:49 01/01/17 09:55 12/31/16 12/31/16 01/01/17 18:02 22:00 02:00 WBC RBC Hgb Hct MCV MCH MCHC RDW Plt Count Seg Neutrophils % Lymphocytes % Monocytes % Eosinophils % Basophils % Absolute Neutrophils Absolute Lymphocytes Absolute Monocytes Absolute Eosinophils Absolute Basophils Carbonic Acid HCO3/H2CO3 Ratio ABG pH ABG pCO2 ABG pO2 ABG HCO3 ABG O2 Saturation ABG Base Excess FiO2 Sodium 140.4 139.6 138.4 Potassium 5.1 H D 4.5 4.2 Chloride 112 H 112 H 115 H Carbon Dioxide 7 L* 13 L 13 L Anion Gap 21 H 15 10 BUN 26 H 25 H 23 H Creatinine 1.07 0.96 0.88 Est GFR ( Amer) > 60 > 60 > 60 Est GFR (Non-Af Amer) > 60 > 60 > 60 Glucose 255 H 184 H 132 H Calcium 8.3 L 8.3 L 7.9 L Lipase 01/01/17 01/01/17 01/01/17 06:49 06:49 06:50 WBC 9.7 RBC 3.72 L Hgb 10.1 L D Hct 30.3 L MCV 82 D MCH 27.1 MCHC 33.2 RDW 16.4 H Plt Count 223 Seg Neutrophils % 78.5 H Lymphocytes % 10.5 L Monocytes % 10.5 Eosinophils % 0.3 Basophils % 0.2 Absolute Neutrophils 7.6 Absolute Lymphocytes 1.0 Absolute Monocytes 1.0 Absolute Eosinophils 0.0 Absolute Basophils 0.0 Carbonic Acid 0.98 L HCO3/H2CO3 Ratio 15:1 ABG pH 7.29 L ABG pCO2 32.4 L ABG pO2 103.0 H ABG HCO3 15.2 L ABG O2 Saturation 97.2 ABG Base Excess -10.3 FiO2 ROOM AIR Sodium 137.7 Potassium 4.4 Chloride 113 H Carbon Dioxide 14 L Anion Gap 11 BUN 21 H Creatinine 0.83 Est GFR ( Amer) > 60 Est GFR (Non-Af Amer) > 60 Glucose 160 H Calcium 7.9 L Lipase 3685.0 H 01/01/17 09:55 WBC RBC Hgb Hct MCV MCH MCHC RDW Plt Count Seg Neutrophils % Lymphocytes % Monocytes % Eosinophils % Basophils % Absolute Neutrophils Absolute Lymphocytes Absolute Monocytes Absolute Eosinophils Absolute Basophils Carbonic Acid HCO3/H2CO3 Ratio ABG pH ABG pCO2 ABG pO2 ABG HCO3 ABG O2 Saturation ABG Base Excess FiO2 Sodium 138.2 Potassium 3.8 Chloride 112 H Carbon Dioxide 14 L Anion Gap 12 BUN 21 H Creatinine 0.78 Est GFR ( Amer) > 60 Est GFR (Non-Af Amer) > 60 Glucose 96 Calcium 8.0 L Lipase 01/01/17 01/01/17 06:49 06:49 Creatine Kinase 83 CK-MB (CK-2) 3.57 Troponin I < 0.012 Impressions: Abdomen X-Ray 01/01/17 06:34 IMPRESSION: NO RADIOGRAPHIC EVIDENCE FOR ACUTE ABDOMINAL DISEASE. Assessment & Plan - Diagnosis (1) Diabetic ketoacidosis associated with type 1 diabetes mellitus Qualifiers: Diabetes mellitus complication detail: without coma Qualified Code(s): E10.10 - Type 1 diabetes mellitus with ketoacidosis without coma Is this a current diagnosis for this admission?: Yes Plan: Patient is admitted with DKA with associated electrolytes disturbances. His anion gap has closed and potassium is 4.4, however, he remains acidotic. Admitted to [facility] on continuous cardiac telemetry. He will continue to receive IVFs. I will start him on 20 units of lantus bid (home regiment) and Humalog for SSI coverage. Will continue to monitor serial BMPs for correction of acidosis. He may have sips and chips but otherwise will be n.p.o. secondary to acute pancreatitis. Will ask registered dietitian and adaptive physical educator to meet with patient. Patient will also benefit from discharge planning services. (2) Pancreatitis Qualifiers: Chronicity: acute Pancreatitis type: unspecified pancreatitis type Acute pancreatitis complication: unspecified Qualified Code(s): K85.90 - Acute pancreatitis without necrosis or infection, unspecified Plan: Patient is admitted with DKA and acute pancreatitis with a history of the same. Lipase is further elevated to 3685. Recent lipid panel is acceptable. He will be treated with IV fluids, narcotic pain medications, antiemetics, and be kept n.p.o. except for sips and chips and medications. (3) Hyperkalemia Is this a current diagnosis for this admission?: Yes Plan: Resolved. Initial labs demonstrate a potassium level of 6.5. He is likely to have a total body deficit secondary to DKA. Will monitor with serial BMPs and replace as necessary. (4) Hyponatremia Is this a current diagnosis for this admission?: Yes Plan: Resolved. Likely secondary to dehydration. Patient is currently receiving IV fluid resuscitation. We will continue to monitor with serial BMPs. (5) Leukocytosis Qualifiers: Leukocytosis type: unspecified Qualified Code(s): D72.829 - Elevated white blood cell count, unspecified Is this a current diagnosis for this admission?: Yes Plan: Resolved (17.2--> 9.7). Patient does endorse a recent viral-like syndrome that resolved approximately 1 week ago. His elevated white count is most likely a result of his acute pancreatitis. Blood cultures: No growth at 24 hrs. (7) Anemia of chronic disease Is this a current diagnosis for this admission?: Yes Plan: Anemia of chronic disease; hemoglobin currently 12.6 which is his baseline. Hgb slightly down today, this is an expected finding w/ regard to pancreatitis as well as hemodilution. Will monitor. - Time Time Spent with patient: 35 or more minutes Medications reviewed and adjusted accordingly: Yes - Inpatient Certification Based on my medical assessment, after consideration of the patient's comorbidities, presenting symptoms, or acuity I expect that the services needed warrant INPATIENT care.: Yes I certify that my determination is in accordance with my understanding of Medicare's requirements for reasonable and necessary INPATIENT services [42 CFR 412.3e].: Yes Medical Necessity: Need Close Monitoring Due to Risk of Patient Decompensation, Need For IV Fluids
[2017-01-01 14:48] LABS: ANION GAP 11 (5-19); BLOOD UREA NITROGEN 21 mg/dL (7-20); CALCIUM 8.2 mg/dL (8.4-10.2); CARBON DIOXIDE 13 mmol/L (22-30); CHLORIDE 114 mmol/L (98-107); CREATININE RESULT 0.84 mg/dL (0.52-1.25); GLUCOSE 130 mg/dL (75-110); POTASSIUM 3.7 mmol/L (3.6-5.0); SODIUM 138.1 mmol/L (137-145)
[2017-01-01] MEDS: DEXTROSE 5%-1/2 NORMAL SALINE 1,000 ML IV PRN ×2 (15:09→21:45)
[2017-01-01] MEDS: INSULIN LISPRO 100 UNIT/ML 3 ML VIAL SUBCUT PRN ×2 (18:23→21:23)
[2017-01-01 18:45] LABS: ANION GAP 9 (5-19); BLOOD UREA NITROGEN 20 mg/dL (7-20); CALCIUM 8.1 mg/dL (8.4-10.2); CARBON DIOXIDE 13 mmol/L (22-30); CHLORIDE 113 mmol/L (98-107); CREATININE RESULT 0.82 mg/dL (0.52-1.25); GLUCOSE 237 mg/dL (75-110); POTASSIUM 4.3 mmol/L (3.6-5.0); SODIUM 134.8 mmol/L (137-145)
[2017-01-01] MEDS ORDERED: INSULIN GLARGINE,HUM.REC.ANLOG 1,000 UNIT/10 ML UNIT SUBCUT ONE (21:30)
[2017-01-01] MEDS ORDERED: INSULIN GLARGINE,HUM.REC.ANLOG 300 UNIT/3 ML INSULN.PEN SUBCUT SCH (22:00)
[2017-01-01 22:51] LABS: ANION GAP 10 (5-19); BLOOD UREA NITROGEN 18 mg/dL (7-20); CARBON DIOXIDE 16 mmol/L (22-30); CHLORIDE 109 mmol/L (98-107); CREATININE RESULT 0.85 mg/dL (0.52-1.25); GLUCOSE 299 mg/dL (75-110); POTASSIUM 3.9 mmol/L (3.6-5.0)
[2017-01-02] MEDS: ONDANSETRON HCL INJ/PF 4 MG/2 ML SDV IV PRN ×4 (02:35→21:14)
[2017-01-02] MEDS: MORPHINE SULFATE 10 MG/ML INJ IV PRN ×4 (02:35→09:35)
[2017-01-02 05:20] LABS: ABSOLUTE BASOPHILS # (AUTO) 0.1 10^3/uL (0.0-0.2); ABSOLUTE EOSINOPHILS # (AUTO) 0.1 10^3/uL (0.0-0.6); ABSOLUTE LYMPHOCYTES (AUTO) 1.6 10^3/uL (0.5-4.7); ABSOLUTE MONOCYTES (AUTO) 0.8 10^3/uL (0.1-1.4); ABSOLUTE NEUT (AUTO) 4.2 10^3/uL (1.7-8.2); BASOPHILS % (AUTO) 0.8 % (0-2); EOSINOPHILS % (AUTO) 1.9 % (0-6); HEMATOCRIT 28.1 % (37.9-51.0); HEMOGLOBIN 9.3 g/dL (13.5-17.0); HGB HCT DIFFERENCE -0.2; LYMPHOCYTES % (AUTO) 23.7 % (13-45); MEAN CORPUSCULAR HEMOGLOBIN 26.6 pg (27.0-33.4); MEAN CORPUSCULAR HGB CONC 33.1 g/dL (32.0-36.0); MEAN CORPUSCULAR VOLUME 80 fl (80-97); MONOCYTES % (AUTO) 11.2 % (3-13); RED CELL DISTRIBUTION WIDTH 16.7 % (11.5-14.0); SEGMENTED NEUTROPHILS % (AUTO) 62.4 % (42-78); WHITE BLOOD COUNT 6.8 10^3/uL (4.0-10.5)
[2017-01-02] MEDS: PROMETHAZINE HCL INJ 25 MG/1 ML VIAL IV PRN (05:21)
[2017-01-02 05:50] LABS: ANION GAP 8 (5-19); BLOOD UREA NITROGEN 15 mg/dL (7-20); CALCIUM 7.9 mg/dL (8.4-10.2); CARBON DIOXIDE 17 mmol/L (22-30); CHLORIDE 111 mmol/L (98-107); CREATININE RESULT 0.79 mg/dL (0.52-1.25); GLUCOSE 230 mg/dL (75-110); POTASSIUM 3.7 mmol/L (3.6-5.0); SODIUM 135.7 mmol/L (137-145)
[2017-01-02] MEDS ORDERED: OXYCODONE HCL IR 5 MG TABLET PO PRN ×2 (09:29→09:30)
[2017-01-02] MEDS: FERROUS SULFATE 325 MG TABLET PO SCH (10:23)
[2017-01-02] MEDS: FAMOTIDINE INJ/PF 20 MG/2 ML SDV IV SCH ×2 (10:23→22:15)
[2017-01-02] MEDS: INSULIN GLARGINE,HUM.REC.ANLOG 300 UNIT/3 ML INSULN.PEN SUBCUT SCH ×2 (10:25→22:15)
[2017-01-02] MEDS: INSULIN LISPRO 100 UNIT/ML 3 ML VIAL SUBCUT PRN ×2 (10:30→18:54)
[2017-01-02] MEDS: DOCUSATE SODIUM 100 MG CAPSULE PO SCH (10:32)
[2017-01-02] MEDS: ENOXAPARIN SODIUM INJ 40 MG/0.4 ML DISP.SYRIN SUBCUT SCH (10:32)
[2017-01-02] MEDS: DEXTROSE 5%-1/2 NORMAL SALINE 1,000 ML IV PRN (14:01)
--- NOTE | 2017-01-02 14:37 | PDOC PROGRESS REPORT ---
Subjective Progress Note for:: 01/02/17 Subjective:: Pt is seen on morning rounds resting in bed comfortably. He reports continued improvements in his abdominal pain, stating that his appetite is returned and he is interested in trying to eat today. He has been regularly utilizing his as needed morphine. We discussed need to begin weaning of his opiate medications and transitioning to p.o. Is agreeable to pain management plan. He reports slight nausea, though much improved from yesterday, and no emesis. He denies fever, chills, chest pain, dyspnea, cough, diarrhea and constipation. He has no additional questions or concerns today. Physical Exam Vital Signs: Temp Pulse Resp BP Pulse Ox 99.3 F 94 18 106/64 99 01/02/17 12:27 01/02/17 12:27 01/02/17 12:27 01/02/17 12:27 01/02/17 12:27 Intake & Output 01/01/17 01/02/17 01/03/17 06:59 06:59 06:59 Intake Total 2603 3554 250 Output Total 1925 Balance 678 3554 250 Weight 70.4 kg 69.6 kg General appearance: PRESENT: no acute distress, well-developed, well-nourished Head exam: PRESENT: atraumatic, normocephalic Eye exam: PRESENT: conjunctiva pink, EOMI, PERRLA. ABSENT: scleral icterus Ear exam: PRESENT: normal external ear exam Mouth exam: PRESENT: moist, tongue midline Neck exam: ABSENT: carotid bruit, JVD, lymphadenopathy, thyromegaly Respiratory exam: PRESENT: clear to auscultation alfonso, symmetrical, unlabored. ABSENT: rales, rhonchi, wheezes Cardiovascular exam: PRESENT: RRR. ABSENT: diastolic murmur, rubs, systolic murmur Pulses: PRESENT: normal dorsalis pedis pul Vascular exam: PRESENT: normal capillary refill GI/Abdominal exam: PRESENT: normal bowel sounds, soft, tenderness. ABSENT: distended, guarding, mass, organolmegaly, rebound Rectal exam: PRESENT: deferred Extremities exam: PRESENT: full ROM. ABSENT: calf tenderness, clubbing, pedal edema Neurological exam: PRESENT: alert, awake, oriented to person, oriented to place , oriented to time, oriented to situation, CN II-XII grossly intact. ABSENT: motor sensory deficit Psychiatric exam: PRESENT: appropriate affect, normal mood. ABSENT: homicidal ideation, suicidal ideation Skin exam: PRESENT: dry, intact, warm. ABSENT: cyanosis, rash Results Laboratory Results: 01/02/17 05:08 01/02/17 05:08 01/01/17 01/01/17 01/01/17 14:00 18:10 21:58 WBC RBC Hgb Hct MCV MCH MCHC RDW Plt Count Seg Neutrophils % Lymphocytes % Monocytes % Eosinophils % Basophils % Absolute Neutrophils Absolute Lymphocytes Absolute Monocytes Absolute Eosinophils Absolute Basophils Sodium 138.1 134.8 L 135.0 L Potassium 3.7 4.3 3.9 Chloride 114 H 113 H 109 H Carbon Dioxide 13 L 13 L 16 L Anion Gap 11 9 10 BUN 21 H 20 18 Creatinine 0.84 0.82 0.85 Est GFR ( Amer) > 60 > 60 > 60 Est GFR (Non-Af Amer) > 60 > 60 > 60 Glucose 130 H 237 H 299 H Calcium 8.2 L 8.1 L 8.0 L 01/02/17 01/02/17 05:08 05:08 WBC 6.8 RBC 3.50 L Hgb 9.3 L Hct 28.1 L MCV 80 MCH 26.6 L MCHC 33.1 RDW 16.7 H Plt Count 167 Seg Neutrophils % 62.4 Lymphocytes % 23.7 Monocytes % 11.2 Eosinophils % 1.9 Basophils % 0.8 Absolute Neutrophils 4.2 Absolute Lymphocytes 1.6 Absolute Monocytes 0.8 Absolute Eosinophils 0.1 Absolute Basophils 0.1 Sodium 135.7 L Potassium 3.7 Chloride 111 H Carbon Dioxide 17 L Anion Gap 8 BUN 15 Creatinine 0.79 Est GFR ( Amer) > 60 Est GFR (Non-Af Amer) > 60 Glucose 230 H Calcium 7.9 L 01/01/17 01/01/17 06:49 06:49 Creatine Kinase 83 CK-MB (CK-2) 3.57 Troponin I < 0.012 Impressions: Abdomen X-Ray 01/01/17 06:34 IMPRESSION: NO RADIOGRAPHIC EVIDENCE FOR ACUTE ABDOMINAL DISEASE. Assessment & Plan - Diagnosis (1) Diabetic ketoacidosis associated with type 1 diabetes mellitus Qualifiers: Diabetes mellitus complication detail: without coma Qualified Code(s): E10.10 - Type 1 diabetes mellitus with ketoacidosis without coma Is this a current diagnosis for this admission?: Yes Plan: Patient is admitted with DKA with associated electrolytes disturbances. His anion gap has closed, however, he remains acidotic. Admitted to [facility] on continuous cardiac telemetry. He will continue to receive IVFs. His diet will be advanced to clear liquids today and may be further advanced as tolerated. Blood sugars will be maintained with Lantus and Humalog for SSI coverage. Will continue to monitor BMPs for correction of acidosis. Will ask registered dietitian and certified adaptive physical educator to meet with patient. Patient will also benefit from discharge planning services. (2) Pancreatitis Qualifiers: Chronicity: acute Pancreatitis type: unspecified pancreatitis type Acute pancreatitis complication: unspecified Qualified Code(s): K85.90 - Acute pancreatitis without necrosis or infection, unspecified Plan: Patient is admitted with DKA and acute pancreatitis with a history of the same. Lipase elevated to 3685. Recent lipid panel is acceptable. He will be treated with IV fluids, narcotic pain medications, antiemetics. Pain has improved and patient is requesting to eat. He will be started on a clear liquid diet and advanced as tolerated. (3) Hyperkalemia Is this a current diagnosis for this admission?: Yes Plan: Resolved. Initial labs demonstrate a potassium level of 6.5. He is likely to have a total body deficit secondary to DKA. Will monitor with serial BMPs and replace as necessary. (4) Hyponatremia Is this a current diagnosis for this admission?: Yes Plan: Slightly hyponatremic. Likely secondary to dehydration. Patient is currently receiving IV fluid resuscitation. We will continue to monitor with serial BMPs. (5) Leukocytosis Qualifiers: Leukocytosis type: unspecified Qualified Code(s): D72.829 - Elevated white blood cell count, unspecified Is this a current diagnosis for this admission?: Yes Plan: Resolved (17.2--> 9.7-->6.8). Patient does endorse a recent viral-like syndrome that resolved approximately 1 week ago. His elevated white count is most likely a result of his acute pancreatitis. Blood cultures: No growth at 48 hrs. (7) Anemia of chronic disease Is this a current diagnosis for this admission?: Yes Plan: Anemia of chronic disease. Hgb slightly down today, this is an expected finding w/ regard to pancreatitis as well as hemodilution. Registered dietitian scheduled to meet with the patient. Will monitor. - Time Time Spent with patient: 25-34 minutes Medications reviewed and adjusted accordingly: Yes Anticipated discharge: Home Within: within 48 hours - Inpatient Certification Medical Necessity: Need For IV Fluids
[2017-01-02] MEDS ORDERED: METOCLOPRAMIDE HCL ORAL SOLN 10 MG/10 ML UDCUP PO ONE (15:15)
[2017-01-02] MEDS ORDERED: MAG HYDROX/AL HYDROX/SIMETH SUSP 30 ML UDCUP PO ONE (15:15)
[2017-01-02] MEDS ORDERED: LIDOCAINE 2% VISCOUS SOLN 20 ML UDCUP PO ONE (15:15)
[2017-01-02] MEDS ORDERED: NORMAL SALINE 1000 ML 1,000 ML IV PRN (15:27)
[2017-01-02] MEDS: OXYCODONE HCL IR 5 MG TABLET PO PRN ×3 (15:33→22:01)
[2017-01-03] MEDS: OXYCODONE HCL IR 5 MG TABLET PO PRN ×2 (02:42→07:26)
[2017-01-03] MEDS: ONDANSETRON HCL INJ/PF 4 MG/2 ML SDV IV PRN ×2 (02:43→07:26)
[2017-01-03 07:11] LABS: ABSOLUTE BASOPHILS # (AUTO) 0.1 10^3/uL (0.0-0.2); ABSOLUTE EOSINOPHILS # (AUTO) 0.2 10^3/uL (0.0-0.6); ABSOLUTE LYMPHOCYTES (AUTO) 1.6 10^3/uL (0.5-4.7); ABSOLUTE MONOCYTES (AUTO) 0.9 10^3/uL (0.1-1.4); ABSOLUTE NEUT (AUTO) 3.4 10^3/uL (1.7-8.2); BASOPHILS % (AUTO) 0.8 % (0-2); EOSINOPHILS % (AUTO) 2.9 % (0-6); HEMATOCRIT 31.6 % (37.9-51.0); HEMOGLOBIN 10.6 g/dL (13.5-17.0); HGB HCT DIFFERENCE 0.2; LYMPHOCYTES % (AUTO) 26.8 % (13-45); MEAN CORPUSCULAR HGB CONC 33.4 g/dL (32.0-36.0); MEAN CORPUSCULAR VOLUME 81 fl (80-97); RED BLOOD COUNT 3.91 10^6/uL (4.35-5.55); RED CELL DISTRIBUTION WIDTH 17.1 % (11.5-14.0); SEGMENTED NEUTROPHILS % (AUTO) 55.5 % (42-78); WHITE BLOOD COUNT 6.1 10^3/uL (4.0-10.5)
[2017-01-03 07:28] LABS: ANION GAP 11 (5-19); BLOOD UREA NITROGEN 10 mg/dL (7-20); CALCIUM 8.7 mg/dL (8.4-10.2); CARBON DIOXIDE 18 mmol/L (22-30); CHLORIDE 111 mmol/L (98-107); CREATININE RESULT 0.83 mg/dL (0.52-1.25); GLUCOSE 170 mg/dL (75-110); LIPASE 790.3 U/L (23-300); POTASSIUM 3.6 mmol/L (3.6-5.0)
[2017-01-03] MEDS: INSULIN LISPRO 100 UNIT/ML 3 ML VIAL SUBCUT PRN (08:30)
[2017-01-03] MEDS: FERROUS SULFATE 325 MG TABLET PO SCH (09:57)
[2017-01-03] MEDS: INSULIN GLARGINE,HUM.REC.ANLOG 300 UNIT/3 ML INSULN.PEN SUBCUT SCH (09:57)
[2017-01-03] MEDS: FAMOTIDINE INJ/PF 20 MG/2 ML SDV IV SCH (10:01)
[2017-01-03] MEDS: ENOXAPARIN SODIUM INJ 40 MG/0.4 ML DISP.SYRIN SUBCUT SCH (10:01)
[2017-01-03] MEDS: DOCUSATE SODIUM 100 MG CAPSULE PO SCH (10:01)
[2017-01-03 11:32] VITALS: BP 96/48
--- NOTE | 2017-01-03 15:23 | PDOC DISCHARGE SUMMARY ---
General - Admit/Disc Date/PCP Admission Date/Primary Care Provider: 12/31/16 12:08 Discharge Date: 01/03/17 - Discharge Diagnosis (1) Diabetic ketoacidosis associated with type 1 diabetes mellitus Is this a current diagnosis for this admission?: Yes Summary: Pt was admitted with DKA and associated electrolyte disturbances. He was admitted to [facility] on continuous cardiac telemetry. He received IV fluid resuscitation and was initially placed on an insulin drip. His anion gap closed overnight and he was transitioned to his home dose Lantus with Humalog for sliding scale coverage. At time of discharge, he was tolerating a insistent carb diet with adequate glucose control. He reports that he has adequate insulin at home and has appointment with his primary care provider scheduled for January 08. He is stable for discharge with follow-up as previously scheduled. (2) Pancreatitis Summary: Patient was admitted with DKA and acute pancreatitis with a history of the same. Lipase elevated to 3685. Supported with IV fluids, narcotic pain medication, and anti-emetics. His pain improved rapidly and the lipase trended down to 790 this morning. At time of discharge he is tolerating a regular diet without significantly worsening abdominal pain, nausea or vomiting. He will be discharged with a short prescription for oxycodone and Zofran. He reports that he has an appointment scheduled with his primary care provider for January 08; he is encouraged to keep this appointment. (3) Hyperkalemia Is this a current diagnosis for this admission?: Yes Summary: Corrected. (4) Hyponatremia Is this a current diagnosis for this admission?: Yes Summary: Replete; likely was secondary to dehydration. Pt received IV fluid resuscitation and now has adequate p.o. intake. (5) Leukocytosis Is this a current diagnosis for this admission?: Yes Summary: Resolved. (7) Anemia of chronic disease Is this a current diagnosis for this admission?: Yes - Additional Information Resuscitation Status: Full Code Discharge Diet: Diabetic Discharge Activity: Activity As Tolerated, Balance Activity w/Rest Home Medications: Ferrous Sulfate [Feosol 325 mg Tablet] 325 mg PO DAILY #30 tablet 01/03/17 Insulin Glargine,Hum.rec.anlog [Lantus Insulin 100 Unit/mL] 24 unit SUBCUT Q12 # 3 insuln.pen 01/03/17 Insulin Lispro [Humalog Insulin (Lispro) 100 unit/mL] 0 - 12 unit SUBCUT ACHS # 300 unit 01/03/17 Ondansetron HCl [Zofran 8 mg Tablet] 8 mg PO Q8HP PRN #30 tablet 01/03/17 Oxycodone HCl [Oxy-Ir 5 mg Tablet] 5 - 10 mg PO Q4HP PRN #30 tablet 01/03/17 History of Present Illness History of Present Illness: CHESTER MCKEON is a 36 year old male with a past medical history of diabetes mellitus type 1, pancreatitis, hypertension, hyperlipidemia who presents to the emergency department with a complaint of abdominal pain, nausea and vomiting, and uncontrolled blood sugar levels for the past 2 days. He reports that approximately a week ago he developed nasal congestion, rhinorrhea, sore throat , low-grade fever that improved with symptomatic treatment and denies any other recent illnesses. He does state that he was locked out of his house and unable to access his insulin today and believes that that precipitated his illness. Evaluation in the emergency department revealed leukocytosis, potassium of 6.5, bicarb less than 5, elevated creatinine, and glucose of 816. His estimated anion gap is greater than 47. Additionally, his lipase was elevated to 423. He received IV fluids, was placed on an insulin drip, and referred to the hospitalist service for admission. Physical Exam Vital Signs: Temp Pulse Resp BP Pulse Ox 97.9 F 93 18 96/48 L 100 01/03/17 11:30 01/03/17 11:30 01/03/17 11:30 01/03/17 11:30 01/03/17 11:30 Intake & Output 01/02/17 01/03/17 01/04/17 06:59 06:59 06:59 Intake Total 3554 4536 Output Total 7 Balance 3555 4785 Weight 69.6 kg 68 kg General appearance: PRESENT: no acute distress, well-developed, well-nourished Head exam: PRESENT: atraumatic, normocephalic Eye exam: PRESENT: conjunctiva pink, EOMI, PERRLA. ABSENT: scleral icterus Ear exam: PRESENT: normal external ear exam Mouth exam: PRESENT: moist, tongue midline Neck exam: ABSENT: carotid bruit, JVD, lymphadenopathy, thyromegaly Respiratory exam: PRESENT: clear to auscultation alfonso. ABSENT: rales, rhonchi, wheezes Cardiovascular exam: PRESENT: RRR. ABSENT: diastolic murmur, rubs, systolic murmur Pulses: PRESENT: normal dorsalis pedis pul Vascular exam: PRESENT: normal capillary refill GI/Abdominal exam: PRESENT: normal bowel sounds, soft. ABSENT: distended, guarding, mass, organolmegaly, rebound, tenderness Rectal exam: PRESENT: deferred Extremities exam: PRESENT: full ROM. ABSENT: calf tenderness, clubbing, pedal edema Neurological exam: PRESENT: alert, awake, oriented to person, oriented to place , oriented to time, oriented to situation, CN II-XII grossly intact. ABSENT: motor sensory deficit Psychiatric exam: PRESENT: appropriate affect, normal mood. ABSENT: homicidal ideation, suicidal ideation Skin exam: PRESENT: dry, intact, warm. ABSENT: cyanosis, rash Results Laboratory Results: 01/03/17 06:33 01/03/17 06:33 01/03/17 01/03/17 06:33 06:33 WBC 6.1 RBC 3.91 L Hgb 10.6 L Hct 31.6 L MCV 81 MCH 27.0 MCHC 33.4 RDW 17.1 H Plt Count 176 Seg Neutrophils % 55.5 Lymphocytes % 26.8 Monocytes % 14.0 H Eosinophils % 2.9 Basophils % 0.8 Absolute Neutrophils 3.4 Absolute Lymphocytes 1.6 Absolute Monocytes 0.9 Absolute Eosinophils 0.2 Absolute Basophils 0.1 Sodium 140.0 Potassium 3.6 Chloride 111 H Carbon Dioxide 18 L Anion Gap 11 BUN 10 Creatinine 0.83 Est GFR ( Amer) > 60 Est GFR (Non-Af Amer) > 60 Glucose 170 H Calcium 8.7 Lipase 790.3 H 01/01/17 01/01/17 06:49 06:49 Creatine Kinase 83 CK-MB (CK-2) 3.57 Troponin I < 0.012 Impressions: Abdomen X-Ray 01/01/17 06:34 IMPRESSION: NO RADIOGRAPHIC EVIDENCE FOR ACUTE ABDOMINAL DISEASE. Qualifiers PATEINT BEING DISCHARGED WITH ANY OF THE FOLLOWING DIAGNOSIS?: No
== END 2017-01-03 14:30 | disposition home or self-care (01) | DRG 637 ==
LOC: ER 09:06 → EH 12:08 → 3S 13:40
PROVIDERS: ADMIT Internal Medicine; ATTEND Internal Medicine
DX: E10.10 Type 1 diabetes mellitus with ketoacidosis without coma (principal); K85.90 Acute pancreatitis without necrosis or infection, unspecified; E87.1 Hypo-osmolality and hyponatremia; E87.2 Acidosis; E87.5 Hyperkalemia; E86.0 Dehydration; D63.8 Anemia in other chronic diseases classified elsewhere; I10 Essential (primary) hypertension; K21.9 Gastro-esophageal reflux disease without esophagitis; F32.9 Major depressive disorder, single episode, unspecified; F17.200 Nicotine dependence, unspecified, uncomplicated; D72.829 Elevated white blood cell count, unspecified; E78.00 Pure hypercholesterolemia, unspecified; Z79.899 Other long term (current) drug therapy; Z79.4 Long term (current) use of insulin; Z91.19 Patient's noncompliance with other medical treatment and regimen
CPT/HCPCS: 36415; 36600; 74020; 80048; 80053; 81001; 82550; 82553; 82803; 82962; 83036; 83605; 83690; 83735; 84484; 85025; 87040; 93005; 93010; 96361; 96374; 96375; 99291; J1650; J1815; J2270; J2405; J2550; J3480; J3490; J7030; S0028

== ENCOUNTER 2017-04-06 13:10 | Emergency (ER) | payer OTHER ==
[2017-04-06] MEDS ORDERED: NORMAL SALINE 1000 ML 1,000 ML IV PRN (13:25)
[2017-04-06] MEDS ORDERED: INSULIN REG, HUMAN 100 UNIT/ML 3 ML VIAL (PYX) SUBCUT ONE ×2 (13:25→16:24)
--- NOTE | 2017-04-06 13:26 | ER Document Report ---
ED Medical Screen (RME) - General Chief Complaint: High Blood Sugar Stated Complaint: BLOOD SUGAR CONCERN Time Seen by Provider: 04/06/17 13:25 Mode of Arrival: Wheelchair Information source: Patient Notes: 37-year-old diabetic male presents with complaints of feeling high, patient has not been feeling well for 2 days to 32 units of Lantus yesterday has not taken anything today. Patient was last in DKA in December I have greeted and performed a rapid initial assessment of this patient. A comprehensive ED assessment and evaluation of the patient, analysis of test results and completion of the medical decision making process will be conducted by additional ED providers. PHYSICAL EXAMINATION: GENERAL: ill appearing and in no acute distress. HEAD: Atraumatic, normocephalic. EYES: Pupils equal round extraocular movements intact, conjunctiva are normal. ENT: Nares patent NECK: Normal range of motion LUNGS: No respiratory distress Musculoskeletal: Normal range of motion NEUROLOGICAL: Normal speech, normal gait. PSYCH: Normal mood, normal affect. SKIN: Warm, Dry, normal turgor, no rashes or lesions noted. TRAVEL OUTSIDE OF THE [place] IN LAST 30 DAYS: No - Related Data Allergies/Adverse Reactions: No Known Allergies Allergy (Verified 04/06/17 13:14) Past Medical History - Past Medical History Cardiac Medical History: Reports: Hx Hypercholesterolemia - On no medication for same., Hx Hypertension - Taken off medication for same. Denies: Hx Atrial Fibrillation, Hx Congestive Heart Failure, Hx Coronary Artery Disease, Hx Heart Attack, Hx Pulmonary Embolism Pulmonary Medical History: Denies: Hx Asthma, Hx COPD, Hx Sleep Apnea Neurological Medical History: Denies: Hx Seizures Endocrine Medical History: Reports: Hx Diabetes Mellitus Type 1 - 4 years. Denies: Hx Diabetes Mellitus Type 2, Hx Hyperthyroidism, Hx Hypothyroidism Renal/ Medical History: Denies: Hx Peritoneal Dialysis GI Medical History: Reports: Hx Gastroesophageal Reflux Disease, Hx Pancreatitis. Denies: Hx Cirrhosis, Hx Hepatitis Musculoskeltal Medical History: Denies Hx Arthritis Psychiatric Medical History: Reports: Hx Depression Infectious Medical History: Denies: Hx Hepatitis Past Surgical History: Reports: Hx Orthopedic Surgery - back. Denies: Hx Appendectomy, Hx Cholecystectomy, Hx Tonsillectomy - Immunizations Hx Diphtheria, Pertussis, Tetanus Vaccination: Yes History of Influenza Vaccine for 11/2016 - 04/2017 Season: Refused Physical Exam - Vital signs Vitals: Temp Pulse Resp BP Pulse Ox 97.9 F 97 16 125/76 100 04/06/17 13:15 04/06/17 13:15 04/06/17 13:15 04/06/17 13:15 04/06/17 13:15 Course - Vital Signs Vital signs: Temp Pulse Resp BP Pulse Ox 97.9 F 97 16 125/76 100 04/06/17 13:15 04/06/17 13:15 04/06/17 13:15 04/06/17 13:15 04/06/17 13:15
[2017-04-06 14:01] LABS: VENOUS BLOOD BASE EXCESS -0.8 mmol/L; VENOUS BLOOD HCO3 24.5 mmol/L (20-32); VENOUS BLOOD PH 7.37 (7.30-7.42)
[2017-04-06 14:05] LABS: ABSOLUTE BASOPHILS # (AUTO) 0.1 10^3/uL (0.0-0.2); ABSOLUTE EOSINOPHILS # (AUTO) 0.1 10^3/uL (0.0-0.6); ABSOLUTE LYMPHOCYTES (AUTO) 1.2 10^3/uL (0.5-4.7); ABSOLUTE MONOCYTES (AUTO) 0.4 10^3/uL (0.1-1.4); ABSOLUTE NEUT (AUTO) 4.1 10^3/uL (1.7-8.2); BASOPHILS % (AUTO) 1.2 % (0-2); EOSINOPHILS % (AUTO) 1.8 % (0-6); HEMATOCRIT 34.6 % (37.9-51.0); HEMOGLOBIN 10.9 g/dL (13.5-17.0); LYMPHOCYTES % (AUTO) 21.1 % (13-45); MEAN CORPUSCULAR HEMOGLOBIN 24.6 pg (27.0-33.4); MEAN CORPUSCULAR HGB CONC 31.6 g/dL (32.0-36.0); MEAN CORPUSCULAR VOLUME 78 fl (80-97); MONOCYTES % (AUTO) 6.6 % (3-13); PLATELET COUNT 331 10^3/uL (150-450); RED BLOOD COUNT 4.44 10^6/uL (4.35-5.55); SEGMENTED NEUTROPHILS % (AUTO) 69.3 % (42-78); TOTAL CELLS COUNTED % (AUTO) 100 %; WHITE BLOOD COUNT 5.9 10^3/uL (4.0-10.5)
[2017-04-06] MEDS ORDERED: INSULIN REG, HUMAN 100 UNIT/ML 3 ML VIAL (PYX) IV ONE ×2 (14:17→14:34)
[2017-04-06 14:18] LABS: ALANINE AMINOTRANSFERASE 27 U/L (21-72); ALBUMIN 3.7 g/dL (3.5-5.0); ALKALINE PHOSPHATASE 89 U/L (38-126); ANION GAP 11 (5-19); ASPARTATE AMINO TRANSFERASE 14 U/L (17-59); BILIRUBIN,DIRECT 0.4 mg/dL (0.0-0.4); BILIRUBIN,TOTAL 0.4 mg/dL (0.2-1.3); BLOOD UREA NITROGEN 19 mg/dL (7-20); CARBON DIOXIDE 25 mmol/L (22-30); CHLORIDE 95 mmol/L (98-107); POTASSIUM 3.8 mmol/L (3.6-5.0); SODIUM 130.7 mmol/L (137-145); TOTAL PROTEIN 6.4 g/dL (6.3-8.2)
[2017-04-06 14:29] LABS: GLUCOSE 520 mg/dL (75-110)
[2017-04-06] MEDS ORDERED: PROMETHAZINE HCL INJ 50 MG/1 ML VIAL IM PRN (14:36)
[2017-04-06] MEDS ORDERED: KETOROLAC TROMETHAMINE INJ/PF 30 MG/1 ML SDV IV ONE (14:36)
[2017-04-06 15:21] LABS: APPEARANCE,URINE CLEAR; BILIRUBIN,URINE NEGATIVE (NEGATIVE); COLOR,URINE STRAW; GLUCOSE, URINE >=500 mg/dL (NEGATIVE); KETONES,URINE TRACE mg/dL (NEGATIVE); LEUKOCYTE ESTERASE,URINE NEGATIVE (NEGATIVE); NITRITE,URINE NEGATIVE (NEGATIVE); PROTEIN,URINE NEGATIVE (NEGATIVE); URINE SPECIFIC GRAVITY 1.031; UROBILINOGEN,URINE NEGATIVE mg/dL (<2.0)
[2017-04-06 15:42] LABS: URINE AMPHETAMINES SCREEN NEGATIVE; URINE BARBITURATES SCREEN NEGATIVE; URINE BENZODIAZEPINES SCREEN NEGATIVE; URINE COCAINE SCREEN NEGATIVE; URINE MARIJUANA (THC) SCREEN UNCONFIRMED POSITIVE; URINE METHADONE SCREEN NEGATIVE; URINE PHENCYCLIDINE SCREEN NEGATIVE
--- NOTE | 2017-04-06 16:09 | ER Document Report ---
ED Blood Sugar Problem - General Chief Complaint: High Blood Sugar Stated Complaint: BLOOD SUGAR CONCERN Time Seen by Provider: 04/06/17 13:25 Mode of Arrival: Wheelchair TRAVEL OUTSIDE OF THE [place] IN LAST 30 DAYS: No - HPI Onset: Last week Onset/Duration: Gradual Quality of pain: Achy Severity: Moderate Pain Level: 3 Insulin taken: No Glucose taken: Yes - 500 Associated symptoms: denies: None, Difficulty breathing, Confusion, Difficulty speaking, Dizziness, Dry mucous membranes, Increased thirst, Frequent urination , Fruity breath, Loss of consciousness, Nausea, Shakiness, Sweating, Vomiting, Weakness, Other Similar symptoms previously: Yes Recently seen / treated by doctor: Yes - Related Data Allergies/Adverse Reactions: No Known Allergies Allergy (Verified 04/06/17 13:14) Past Medical History - General Information source: Patient - Social History Smoking Status: Never Smoker Chew tobacco use (# tins/day): No Frequency of alcohol use: None Drug Abuse: None Family History: Reviewed & Not Pertinent, DM, Hyperlipidemia, Hypertension Patient has suicidal ideation: No Patient has homicidal ideation: No - Past Medical History Cardiac Medical History: Reports: Hx Hypercholesterolemia - On no medication for same., Hx Hypertension - Taken off medication for same. Denies: Hx Atrial Fibrillation, Hx Congestive Heart Failure, Hx Coronary Artery Disease, Hx Heart Attack, Hx Pulmonary Embolism Pulmonary Medical History: Denies: Hx Asthma, Hx COPD, Hx Sleep Apnea Neurological Medical History: Denies: Hx Seizures Endocrine Medical History: Reports: Hx Diabetes Mellitus Type 1. Denies: Hx Diabetes Mellitus Type 2, Hx Hyperthyroidism, Hx Hypothyroidism Renal/ Medical History: Denies: Hx Peritoneal Dialysis GI Medical History: Reports: Hx Gastroesophageal Reflux Disease, Hx Pancreatitis. Denies: Hx Cirrhosis, Hx Hepatitis Musculoskeltal Medical History: Denies Hx Arthritis Psychiatric Medical History: Reports: Hx Depression Infectious Medical History: Denies: Hx Hepatitis Past Surgical History: Reports: Hx Orthopedic Surgery - back. Denies: Hx Appendectomy, Hx Cholecystectomy, Hx Tonsillectomy - Immunizations Hx Diphtheria, Pertussis, Tetanus Vaccination: Yes Hx Pneumococcal Vaccination: 11/09/11 Review of Systems - Review of Systems Constitutional: Chills. denies: No symptoms reported, See HPI, Diaphoresis, Fever, Malaise, Weakness, Other, Weight gain, Weight loss, Recent illness EENT: denies: No symptoms reported, See HPI, Eye pain, Eye discharge, Blurred vision, Tearing, Double vision, Ear pain, Ear discharge, Nose pain, Nose congestion, Nose discharge, Sinus pressure, Sinus discharge, Throat pain, Difficulty swallowing, Throat swelling, Mouth pain, Mouth swelling, Dental problem, Vertigo, Other Cardiovascular: denies: No symptoms reported, See HPI, Chest pain, Palpitations , Heart racing, Orthopnea, Dyspnea, Syncope, Dizziness, Lightheaded, Edema, Other, Paroxysmal Nocturnal Dysp Respiratory: denies: No symptoms reported, See HPI, Cough, Hurts to breathe, Hemoptysis, Short of breath, Sputum, Stridor, Wheezing, Other Gastrointestinal: Abdominal pain. denies: No symptoms reported, See HPI, Abdomen distended, Diarrhea, Nausea, Vomiting, Constipation, Blood streaked bowels, Poor appetite, Poor fluid intake, Blood in vomit, Black stools, Rectal bleeding, Last bowel movement, Fecal incontinence, Other Genitourinary: denies: No symptoms reported, See HPI, Burning, Dysuria, Discharge, Frequency, Flank pain, Hematuria, Incontinence, Pain, Urgency, Retention, Other Musculoskeletal: denies: No symptoms reported, See HPI, Back pain, Gout, Joint pain, Joint swelling, Muscle pain, Muscle stiffness, Neck pain, Deformity, Leg swelling, Ankle swelling, Other Neurological/Psychological: denies: No symptoms reported, See HPI, Confusion, Dementia, Depression, Hallucinations, Anxiety, Homicidal ideation, Sensory change, Weakness, Gait changes, Loss of power, Paralysis, Seizure, Lost consciousness, Headaches, Speech impairment, Numbness, Suicidal ideation, Tingling, Tremor, Other Physical Exam - Vital signs Vitals: Temp Pulse Resp BP Pulse Ox 97.9 F 97 16 125/76 100 04/06/17 13:15 04/06/17 13:15 04/06/17 13:15 04/06/17 13:15 04/06/17 13:15 - Notes Notes: PHYSICAL EXAMINATION: GENERAL: Well-appearing, diffuse mild HEAD: Atraumatic, normocephalic. EYES: Pupils equal round and reactive to light, extraocular movements intact, sclera anicteric, conjunctiva are normal. ENT: Nares patent, oropharynx clear without exudates. Moist mucous membranes. NECK: Normal range of motion, supple without lymphadenopathy LUNGS: Breath sounds clear to auscultation bilaterally and equal. No wheezes rales or rhonchi. HEART: Regular rate and rhythm without murmurs ABDOMEN: Soft, tenderness positive bowel sounds r, nondistended abdomen. No guarding, no rebound. No masses appreciated. Musculoskeletal: Normal range of motion, no pitting or edema. No cyanosis. NEUROLOGICAL: Cranial nerves grossly intact. Normal speech, normal gait. Normal sensory, motor exams PSYCH: Normal mood, normal affect. SKIN: Warm, Dry, normal turgor, no rashes or lesions noted. Mild to moderate discomfort Course - Re-evaluation Re-evalutation: 04/06/17 16:05 Given subcu insulin triage, subsequently IV insulin and IV fluids were given. Second blood sugar was 380. Anion gap is normal at 11 it appears he has type II Diabetes. Noncompliant with medication. He has been using cannabis. Having cannabis induced abdominal discomfort. - Vital Signs Vital signs: Temp Pulse Resp BP Pulse Ox 97.9 F 97 16 125/76 100 04/06/17 13:15 04/06/17 13:15 04/06/17 13:15 04/06/17 13:15 04/06/17 13:15 - Laboratory Result Diagrams: 04/06/17 13:46 04/06/17 13:46 Laboratory results interpreted by me: 04/06/17 04/06/17 04/06/17 13:18 13:46 13:46 Hgb 10.9 L Hct 34.6 L MCV 78 L MCH 24.6 L MCHC 31.6 L RDW 17.0 H Sodium 130.7 L Chloride 95 L Glucose 520 H* POC Glucose 463 H* AST 14 L Urine Glucose (UA) Urine Ketones 04/06/17 15:10 Hgb Hct MCV MCH MCHC RDW Sodium Chloride Glucose POC Glucose AST Urine Glucose (UA) >=500 H Urine Ketones TRACE H Discharge - Discharge Clinical Impression: Dehydration, Hyperglycemia, Cannabis abuse with cannabis-induced anxiety disorder Abdominal pain Qualifiers: Abdominal location: generalized Qualified Code(s): R10.84 - Generalized abdominal pain Condition: Fair Disposition: HOME, SELF-CARE Instructions: Abdominal Pain ([facility]), Hyperglycemia ([facility]), Diabetes ([facility]) Prescriptions: Insulin Glargine,Hum.rec.anlog [Lantus Insulin 100 Unit/1 ml 10 ml] 1 unit SUBCUT Q6 #1 each Forms: Elevated Blood Pressure
[2017-04-06 18:30] VITALS: BP 95/70
== END 2017-04-06 19:07 | disposition home or self-care (01) ==
LOC: ER 13:10
DX: E11.65 Type 2 diabetes mellitus with hyperglycemia (principal); E86.0 Dehydration; F12.180 Cannabis abuse with cannabis-induced anxiety disorder; R10.84 Generalized abdominal pain
CPT/HCPCS: 99283; 96372; 96374; 36415; 82962; 85025; 80053; 81001; 80307; 82803; J1885; J1815; J2550; J7030

== ENCOUNTER 2017-04-09 18:28 | Inpatient (IN) | payer OTHER ==
--- NOTE | 2017-04-09 19:59 | ER Document Report ---
ED General - General Chief Complaint: Breathing Difficulty Stated Complaint: DIFFICULTY BREATHING Time Seen by Provider: 04/09/17 19:41 TRAVEL OUTSIDE OF THE [place] IN LAST 30 DAYS: No - HPI Notes: Patient is a 37-year-old male with a history of insulin-dependent diabetes with poor control, drug abuse, chronic abdominal pain with associated gastroparesis who presents to the ED complaining of trouble breathing, epigastric abdominal pain, decreased oral intake 1-2 days. Patient states that he has had symptoms like this in the past and was diagnosed with DKA. Patient states that he has not been taking his insulin regularly as he is supposed to nor has he been checking his sugars regularly. The pain does not radiate. Patient states that he is still urinating and having normal bowel movements. He denies any drug allergies. Patient has not noticed if p.o. intake makes the pain worse. Denies any headache, fever, neck pain, changes in vision/speech/mentation/ hearing, URI, sore throat, palpitations, syncope, cough, shortness of breath, wheeze, nausea/vomiting/diarrhea, urinary retention, dysuria, hematuria, loss of control of bowel or bladder, numbness/tingling, saddle anesthesia, muscle paralysis/weakness, or rash. - Related Data Allergies/Adverse Reactions: No Known Allergies Allergy (Verified 04/09/17 18:31) Past Medical History - Social History Smoking Status: Unknown if Ever Smoked Family History: Reviewed & Not Pertinent, DM, Hyperlipidemia, Hypertension - Past Medical History Cardiac Medical History: Reports: Hx Hypercholesterolemia - On no medication for same., Hx Hypertension - Taken off medication for same. Denies: Hx Atrial Fibrillation, Hx Congestive Heart Failure, Hx Coronary Artery Disease, Hx Heart Attack, Hx Pulmonary Embolism Pulmonary Medical History: Denies: Hx Asthma, Hx COPD, Hx Sleep Apnea Neurological Medical History: Denies: Hx Seizures Endocrine Medical History: Reports: Hx Diabetes Mellitus Type 1. Denies: Hx Diabetes Mellitus Type 2, Hx Hyperthyroidism, Hx Hypothyroidism Renal/ Medical History: Denies: Hx Peritoneal Dialysis GI Medical History: Reports: Hx Gastroesophageal Reflux Disease, Hx Pancreatitis. Denies: Hx Cirrhosis, Hx Hepatitis Musculoskeltal Medical History: Denies Hx Arthritis Psychiatric Medical History: Reports: Hx Depression Infectious Medical History: Denies: Hx Hepatitis Past Surgical History: Reports: Hx Orthopedic Surgery - back. Denies: Hx Appendectomy, Hx Cholecystectomy, Hx Tonsillectomy - Immunizations Hx Diphtheria, Pertussis, Tetanus Vaccination: Yes Hx Pneumococcal Vaccination: 11/09/11 Review of Systems - Review of Systems -: Yes All other systems reviewed and negative Physical Exam - Vital signs Vitals: Pulse Resp BP Pulse Ox 100 28 H 111/65 99 04/09/17 18:39 04/09/17 18:39 04/09/17 18:39 04/09/17 18:39 - Notes Notes: PHYSICAL EXAMINATION: GENERAL: Well-appearing, well-nourished and in no acute distress. A&Ox4. Answers questions appropriately. HEAD: Atraumatic, normocephalic. EYES: Pupils equal round and reactive to light, extraocular movements intact, sclera anicteric, conjunctiva are normal. ENT: Nares patent and without discharge. oropharynx clear without exudates. No tonsilar hypertrophy or erythema. Moist mucous membranes. No sinus tenderness. NECK: Normal range of motion, supple without lymphadenopathy LUNGS: Breath sounds clear to auscultation bilaterally and equal. No wheezes rales or rhonchi. + kussmaul type breathing noted. HEART: Regular rate and rhythm without murmurs, rubs, gallops. ABDOMEN: Soft, nondistended abdomen. No guarding, no rebound. No masses appreciated. Normal bowel sounds present. No CVA tenderness bilaterally. + mild tenderness to the epigastrum to palp. Musculoskeletal: FROM to passive/active. Strength 5+/5. Extremities: No cyanosis, clubbing, or edema b/l. Peripheral pulses 2+. Capillary refill less than 3 seconds. NEUROLOGICAL: Cranial nerves grossly intact. Normal speech, normal gait. Normal sensory, motor exams PSYCH: Normal mood, normal affect. SKIN: Warm, Dry, normal turgor, no rashes or lesions noted. Course - Re-evaluation Re-evalutation: 04/09/17 22:21 Patient is a 37-year-old male who presents hypothermic (bear-hugger placed) and in DKA. Fluids were started. Insulin infusion protocol started after potassium returned - dosing reviewed with Dr. Beach. See lab results. CXR unremarkable. Patient is responsive and answering questions appropriately. Dr. Guzman requested for a central line to be placed so general surgery was consulted who placed a central line. Dr. Guzman accepted admission to ICU. Pt in agreement with admission/plan. - Vital Signs Vital signs: Temp Pulse Resp BP Pulse Ox 100 17 113/66 100 04/09/17 18:39 04/09/17 21:01 04/09/17 21:01 04/09/17 21:01 - Laboratory Result Diagrams: 04/09/17 20:00 04/09/17 20:00 Laboratory results interpreted by me: 04/09/17 04/09/17 04/09/17 19:28 20:00 20:00 WBC 23.2 H Hgb 11.8 L MCH 24.5 L MCHC 28.4 L RDW 17.2 H Seg Neuts % (Manual) 81 H Lymphocytes % (Manual) 7 L Immature Leukocytes % 1 H Abs Neuts (Manual) 20.0 H VBG pH VBG pCO2 VBG HCO3 Sodium 124.2 L Potassium 6.0 H* Chloride 87 L Carbon Dioxide < 5 L* BUN 34 H Creatinine 1.77 H Est GFR ( Amer) 53 L Est GFR (Non-Af Amer) 44 L Glucose 933 H* Lactic Acid Calcium 11.0 H Creatine Kinase 225 H CK-MB (CK-2) Lipase 303.6 H Urine Glucose (UA) >=500 H Urine Ketones 80 H Urine Blood SMALL H 04/09/17 04/09/17 04/09/17 20:00 20:00 20:00 WBC Hgb MCH MCHC RDW Seg Neuts % (Manual) Lymphocytes % (Manual) Immature Leukocytes % Abs Neuts (Manual) VBG pH 7.06 L* VBG pCO2 12.9 L* VBG HCO3 3.5 L Sodium Potassium Chloride Carbon Dioxide BUN Creatinine Est GFR ( Amer) Est GFR (Non-Af Amer) Glucose Lactic Acid 2.9 H Calcium Creatine Kinase CK-MB (CK-2) 5.56 H Lipase Urine Glucose (UA) Urine Ketones Urine Blood Discharge - Discharge Clinical Impression: DKA (diabetic ketoacidoses) Qualifiers: Diabetes mellitus type: type 1 Diabetes mellitus complication detail: without coma Qualified Code(s): E10.10 - Type 1 diabetes mellitus with ketoacidosis without coma Condition: Serious Admitting Provider: Hospitalist - Dr. Guzman Unit Admitted: ICU
--- NOTE | 2017-04-09 20:06 | RADIOLOGY REPORT (SQ) ---
EXAM DESCRIPTION: CHEST SINGLE VIEW COMPLETED DATE/TIME: 04/09/2017 7:56 pm REASON FOR STUDY: sob COMPARISON: 12/09/2016 EXAM PARAMETERS: NUMBER OF VIEWS: One view. TECHNIQUE: Single frontal radiographic view of the chest acquired. RADIATION DOSE: NA LIMITATIONS: None. FINDINGS: LUNGS AND PLEURA: No opacities, masses or pneumothorax. No pleural effusion. MEDIASTINUM AND HILAR STRUCTURES: No masses. Contour normal. HEART AND VASCULAR STRUCTURES: Heart normal in size. Normal vasculature. BONES: No acute findings. HARDWARE: None in the chest. OTHER: No other significant finding. IMPRESSION: NO ACUTE RADIOGRAPHIC FINDING IN THE CHEST. TECHNICAL DOCUMENTATION: JOB ID: [id number] [employer]- All Rights Reserved Reading location - IP/workstation name: [email or web address]
[2017-04-09 20:22] LABS: HEMATOCRIT 41.4 % (37.9-51.0); HEMOGLOBIN 11.8 g/dL (13.5-17.0); MEAN CORPUSCULAR HEMOGLOBIN 24.5 pg (27.0-33.4); MEAN CORPUSCULAR HGB CONC 28.4 g/dL (32.0-36.0); PLATELET COUNT 412 10^3/uL (150-450); RED CELL DISTRIBUTION WIDTH 17.2 % (11.5-14.0); WHITE BLOOD COUNT 23.2 10^3/uL (4.0-10.5)
[2017-04-09 20:28] LABS: APPEARANCE,URINE CLEAR; BILIRUBIN,URINE NEGATIVE (NEGATIVE); COLOR,URINE STRAW; GLUCOSE, URINE >=500 mg/dL (NEGATIVE); KETONES,URINE 80 mg/dL (NEGATIVE); LEUKOCYTE ESTERASE,URINE NEGATIVE (NEGATIVE); NITRITE,URINE NEGATIVE (NEGATIVE); PROTEIN,URINE NEGATIVE (NEGATIVE); URINE SPECIFIC GRAVITY 1.021; UROBILINOGEN,URINE NEGATIVE mg/dL (<2.0)
[2017-04-09 20:34] LABS: VENOUS BLOOD BASE EXCESS -24.8 mmol/L; VENOUS BLOOD HCO3 3.5 mmol/L (20-32)
[2017-04-09 20:38] LABS: VENOUS BLOOD PCO2 12.9 mmHg (35-63); VENOUS BLOOD PH 7.06 (7.30-7.42)
[2017-04-09 20:50] LABS: ALANINE AMINOTRANSFERASE 28 U/L (21-72); ALBUMIN 4.4 g/dL (3.5-5.0); ALKALINE PHOSPHATASE 123 U/L (38-126); ASPARTATE AMINO TRANSFERASE 28 U/L (17-59); BILIRUBIN,DIRECT 0.2 mg/dL (0.0-0.4); BILIRUBIN,TOTAL 0.3 mg/dL (0.2-1.3); BLOOD UREA NITROGEN 34 mg/dL (7-20); CHLORIDE 87 mmol/L (98-107); CREATINE KINASE 225 U/L (55-170); LIPASE 303.6 U/L (23-300); SODIUM 124.2 mmol/L (137-145); TOTAL PROTEIN 6.7 g/dL (6.3-8.2)
[2017-04-09 20:58] LABS: CREATINE KINASE MB 5.56 ng/mL (<4.55)
[2017-04-09 21:01] LABS: ABSOLUTE LYMPHOCYTES# (MANUAL) 2.3 10^3/uL (0.5-4.7); ABSOLUTE MONOCYTES # (MANUAL) 0.7 10^3/uL (0.1-1.4); BAND NEUTROPHILS % (MANUAL) 5 % (3-5); BASOPHILS % (MANUAL) 0 % (0-2); EOSINOPHILS % (MANUAL) 0 % (0-6); LYMPHOCYTES % (MANUAL) 7 % (13-45); MONOCYTES % (MANUAL) 3 % (3-13); SEGMENTED NEUTROPHILS % (MAN) 81 % (42-78); TOTAL CELLS COUNTED 100
[2017-04-09 21:02] LABS: TROPONIN I < 0.012 ng/mL
[2017-04-09] MEDS: NORMAL SALINE 1000 ML 1,000 ML IV PRN ×2 (21:03→21:42)
[2017-04-09 21:07] LABS: ANISOCYTOSIS 1+; CARBON DIOXIDE < 5 mmol/L (22-30); GLUCOSE 933 mg/dL (75-110); PLATELET COMMENT ADEQUATE; PLATELET LARGE PRESENT; POIKILOCYTOSIS 3+; POLYCHROMASIA 1+
[2017-04-09 21:09] LABS: MEAN CORPUSCULAR VOLUME 86 fl (80-97)
[2017-04-09] MEDS ORDERED: DEXTROSE 40% GEL 15 GM TUBE PO PRN ×6 (21:09→23:28)
[2017-04-09] MEDS ORDERED: DEXTROSE 50%-WATER 25 GM/50 ML DISP.SYRIN IV PRN ×5 (21:09→23:28)
[2017-04-09] MEDS ORDERED: GLUCAGON,HUMAN RECOMB 1 MG INJ IM PRN ×2 (21:09→23:28)
[2017-04-09 21:10] LABS: BURR CELLS 3+
[2017-04-09] MEDS ORDERED: NORMAL SALINE 1000 ML 1,000 ML IV PRN (21:12)
[2017-04-09 21:13] LABS: IMMATURE MONONUCLEAR% (MANUAL) 1 % (0)
[2017-04-09] MEDS ORDERED: INSULIN REG, HUMAN 100 UNIT/ML 3 ML VIAL (PYX) ONE (21:33)
[2017-04-09] MEDS: NORMAL SALINE 100 ML with INSULIN REGULAR, HUMAN 100 UNIT IV PRN ×2 (21:34)
[2017-04-09 21:41] LABS: PROTHROMBIN TIME 12.8 SEC (11.4-15.4)
--- NOTE | 2017-04-09 21:48 | EKG REPORT ---
SEVERITY:- ABNORMAL ECG - SINUS RHYTHM NONSPECIFIC INTRAVENTRICULAR CONDUCTION DELAY : Confirmed by: Juan Pablo Holm MD 09-Apr-2017 21:47:58
[2017-04-09] MEDS ORDERED: ASPIRIN 81 MG TABLET, CHEWABLE PO ONE (22:11)
[2017-04-09] MEDS ORDERED: SODIUM BICARBONATE 8.4% INJ 50 MEQ/50 ML DISP.SYRIN IV ONE (22:18)
[2017-04-09] MEDS ORDERED: NORMAL SALINE 1000 ML 1,000 ML IV ONE (22:19)
[2017-04-09] MEDS ORDERED: IPRATROPIUM/ALBUTEROL 0.5-2.5 MG/3 ML AMPUL NEB PRN (23:28)
[2017-04-09] MEDS ORDERED: ACETAMINOPHEN 325 MG TABLET PO PRN (23:28)
[2017-04-09] MEDS ORDERED: GLUCAGON,HUMAN RECOMB 1 MG INJ SUBCUT PRN (23:28)
[2017-04-09] MEDS ORDERED: MAGNESIUM HYDROXIDE SUSP 30 ML UDCUP PO PRN (23:28)
[2017-04-10 00:10] LABS: URINE AMPHETAMINES SCREEN NEGATIVE; URINE BARBITURATES SCREEN NEGATIVE; URINE BENZODIAZEPINES SCREEN NEGATIVE; URINE COCAINE SCREEN NEGATIVE; URINE MARIJUANA (THC) SCREEN NEGATIVE; URINE METHADONE SCREEN NEGATIVE; URINE PHENCYCLIDINE SCREEN NEGATIVE
--- NOTE | 2017-04-10 00:10 | RADIOLOGY REPORT (SQ) ---
EXAM DESCRIPTION: CHEST SINGLE VIEW CLINICAL HISTORY: 37 years Male, central line placement COMPARISON: 04/09/17. NUMBER OF VIEWS/TECHNIQUE: 1/AP LIMITATIONS: None. FINDINGS: Normal lung volume, clear parenchyma, normal cardiac silhouette, and intact bony thorax. Right jugular central line tip at the cavoatrial junction. IMPRESSION: No acute cardiopulmonary findings.
[2017-04-10 00:33] LABS: BLOOD UREA NITROGEN 34 mg/dL (7-20); CALCIUM 9.7 mg/dL (8.4-10.2); CHLORIDE 98 mmol/L (98-107); CREATINE KINASE 196 U/L (55-170); SODIUM 131.4 mmol/L (137-145)
[2017-04-10 00:44] LABS: CREATINE KINASE MB 5.32 ng/mL (<4.55)
[2017-04-10 00:54] LABS: GLUCOSE 680 mg/dL (75-110)
[2017-04-10 00:55] LABS: TROPONIN I < 0.012 ng/mL
[2017-04-10 01:09] LABS: CARBON DIOXIDE < 5 mmol/L (22-30)
[2017-04-10] MEDS ORDERED: LORAZEPAM INJ 2 MG/1 ML VIAL ONE (01:49)
[2017-04-10] MEDS: NORMAL SALINE 1000 ML 1,000 ML IV SCH ×2 (02:16→05:11)
[2017-04-10] MEDS ORDERED: LORAZEPAM INJ 2 MG/1 ML VIAL IV ONE (02:30)
--- NOTE | 2017-04-10 03:34 | OPERATIVE REPORT E ---
Operative Report NAME: CHESTER MCKEON : 1980 AGE: 37Y DATE OF SURGERY: 04/09/2017 ROOM: 609 PREOPERATIVE DIAGNOSIS: Poor veins for intravenous access in patient with diabetic ketoacidosis needing a lot of medications and fluids. POSTOPERATIVE DIAGNOSIS: Poor veins for intravenous access in patient with diabetic ketoacidosis needing a lot of medications and fluids. OPERATION: Placement of right central venous catheter through the right internal jugular vein. SURGEON: GORGE WAITE M.D. PROCEDURE: The patient placed in Trendelenburg position. The right chest and neck were then prepped and draped in usual sterile fashion. Local anesthesia infiltrated to the right infraclavicular area and the right subclavian vein punctured. The leader is placed through the needle and the needle removed. The puncture site enlarged and dilated. Unfortunately, the dilator was too tight, close to the clavicle, but able to push all the way. However, after removal of the dilator and attempted placement of the triple-lumen catheter, I was unable to thread the catheter. Because of this, the area was then abandoned with removal of the guidewire. Pressure dressing applied for a couple of minutes at the infraclavicular area. Next, this time attempt was done to put the central line through the right internal jugular vein. The right internal jugular vein between the sternum and clavicular head of the sternocleidomastoid was then identified and this was then anesthetized just above the clavicle. The right internal jugular vein was then punctured and guidewire passed through the needle toward the area of the superior vena cava. The puncture site was then enlarged and dilated. This time the triple-lumen catheter was easily threaded through the guidewire to a distance of about 16 cm. The patient did have a few PVCs with placement of the guidewire and the guidewire needed to be pulled out with immediate resolution of the PVCs. Therefore, the catheter was then placed about the 14-15 cm juarez. Next, all the triple-lumen sides of the catheter were aspirated with blood easily and injected saline easily. The catheter was then anchored to the skin with 3-0 silk and Biopatch placed at the puncture site. A transparent dressing was then placed over the Biopatch and over the catheter. A chest x-ray will be obtained for placement. The patient tolerated the procedure well. DICTATING PHYSICIAN: GORGE WAITE M.D. [id number] PHY#: [id number] ID: [id number] JOB#: [id number] ACCT: [id number] cc:GORGE WAITE M.D. >
[2017-04-10] MEDS ORDERED: INSULIN REG, HUMAN 100 UNIT/ML 3 ML VIAL (PYX) ONE (04:35)
--- NOTE | 2017-04-10 04:39 | PDOC H&P ---
History of Present Illness Admission Date/PCP: 04/09/17 21:30 Patient complains of: Shortness of breath and nausea History of Present Illness: CHESTER MCKEON is a 37 year old male with past medical history of insulin dependent diabetes, drug and alcohol abuse, gastroparesis and recurrent admission for diabetic ketoacidosis. He presents with 2 days of poor p.o. intake secondary to abdominal pain and nausea, admitted noncompliance with medication or lifestyle. He is unable to fill insulin prescription. In the emergency room is found to have severe tachypnea, metabolic acidosis with a pH of 7.0, undetectable bicarbonate, hyperkalemia of 6 without peak T waves. He requires optimal vascular access, surgeon is consulted for central line for resuscitation, insulin, IV fluids and looks like repletion. Past Medical History Cardiac Medical History: Reports: Hyperlipidema - On no medication for same., Hypertension - Taken off medication for same. Denies: Atrial Fibrillation, Congestive Heart Failure, Coronary Artery Disease, Myocardial Infarction, Pulmonary Embolism Pulmonary Medical History: Denies: Asthma, Chronic Obstructive Pulmonary Disease (COPD), Sleep Apnea Neurological Medical History: Denies: Seizures Endocrine Medical History: Reports: Diabetes Mellitus Type 1 Denies: Diabetes Mellitus Type 2, Hyperthyroidism, Hypothyroidism GI Medical History: Reports: Gastroesophageal Reflux Disease Denies: Cirrhosis, Hepatitis Musculoskeltal Medical History: Denies: Arthritis Psychiatric Medical History: Reports: Depression Hematology: Reports: Anemia - Chronic illnesses Past Surgical History Past Surgical History: Reports: Orthopedic Surgery - back Denies: Appendectomy, Cholecystectomy, Tonsillectomy Social History Information Source: Patient Smoking Status: Unknown if Ever Smoked Frequency of Alcohol Use: None Hx Recreational Drug Use: No Drugs: Cocaine, Marijuana Hx Prescription Drug Abuse: Yes - Advance Directive Resuscitation Status: Full Code Family History Family History: Reviewed & Not Pertinent, DM, Hyperlipidemia, Hypertension Parental Family History Reviewed: Yes Children Family History Reviewed: Yes Sibling(s) Family History Reviewed.: Yes Medication/Allergy Home Medications: Ferrous Sulfate [Feosol 325 mg Tablet] 325 mg PO DAILY #30 tablet 01/03/17 Insulin Glargine,Hum.rec.anlog [Lantus Insulin 100 Unit/mL] 24 unit SUBCUT Q12 # 3 insuln.pen 01/03/17 Insulin Lispro [Humalog Insulin (Lispro) 100 unit/mL] 0 - 12 unit SUBCUT ACHS # 300 unit 01/03/17 Ondansetron HCl [Zofran 8 mg Tablet] 8 mg PO Q8HP PRN #30 tablet 01/03/17 Oxycodone HCl [Oxy-Ir 5 mg Tablet] 5 - 10 mg PO Q4HP PRN #30 tablet 01/03/17 Insulin Glargine,Hum.rec.anlog [Lantus Insulin 100 Unit/1 ml 10 ml] 1 unit SUBCUT Q6 #1 each 04/06/17 Allergies/Adverse Reactions: No Known Allergies Allergy (Verified 04/09/17 18:31) Review of Systems ROS unobtainable: Due to mental status Physical Exam Vital Signs: Temp Pulse Resp BP Pulse Ox 97.3 F 106 H 19 91/63 L 99 04/10/17 02:00 04/10/17 01:42 04/10/17 03:38 04/10/17 03:38 04/10/17 03:38 Intake & Output 04/08/17 04/09/17 04/10/17 11:59 11:59 11:59 Output Total 0 Balance 0 Weight 62.2 kg General appearance: PRESENT: disheveled, severe distress, thin Head exam: PRESENT: atraumatic, normocephalic Eye exam: PRESENT: conjunctiva pink, EOMI, PERRLA. ABSENT: scleral icterus Ear exam: PRESENT: normal external ear exam Mouth exam: PRESENT: dry mucosa, tongue midline Neck exam: ABSENT: carotid bruit, JVD, lymphadenopathy, thyromegaly Respiratory exam: PRESENT: accessory muscle use, clear to auscultation alfonso, retraction, symmetrical, tachypnea. ABSENT: rales, rhonchi, wheezes Cardiovascular exam: PRESENT: RRR, +S1, +S2, tachycardia Pulses: PRESENT: normal dorsalis pedis pul Vascular exam: PRESENT: normal capillary refill GI/Abdominal exam: PRESENT: normal bowel sounds, soft. ABSENT: distended, guarding, mass, organolmegaly, rebound, tenderness Rectal exam: PRESENT: deferred Extremities exam: PRESENT: full ROM. ABSENT: calf tenderness, clubbing, pedal edema Neurological exam: PRESENT: alert, awake, oriented to person, oriented to place , oriented to time, oriented to situation, CN II-XII grossly intact. ABSENT: motor sensory deficit Psychiatric exam: PRESENT: appropriate affect, normal mood. ABSENT: homicidal ideation, suicidal ideation Skin exam: PRESENT: dry, intact, warm. ABSENT: cyanosis, rash Results Laboratory Results: 04/09/17 23:50 04/09/17 04/09/17 04/10/17 23:50 23:50 00:23 Sodium 131.4 L Potassium 5.0 D Chloride 98 Carbon Dioxide < 5 L* Anion Gap Not Reportable BUN 34 H Creatinine 1.49 H Est GFR ( Amer) > 60 Est GFR (Non-Af Amer) 54 L Glucose 680 H* Lactic Acid 1.9 Calcium 9.7 Phosphorus 4.5 04/09/17 04/09/17 23:50 23:50 Creatine Kinase 196 H CK-MB (CK-2) 5.32 H Troponin I < 0.012 Impressions: Chest X-Ray 04/09/17 19:46 IMPRESSION: NO ACUTE RADIOGRAPHIC FINDING IN THE CHEST. Assessment & Plan - Diagnosis (1) Diabetic ketoacidosis Qualifiers: Diabetes mellitus type: type 1 Diabetes mellitus complication detail: without coma Qualified Code(s): E10.10 - Type 1 diabetes mellitus with ketoacidosis without coma Is this a current diagnosis for this admission?: Yes Plan: Diabetic ketoacidosis patient has had some degree of polyuria polydipsia with nausea and uncontrolled hyperglycemia with supporting labs. Patient will receive IV fluids IV insulin serial chemistries every 6 hours for evaluation for electrolyte repletion. Continued evaluation for underlying cause if not found Patient will require diabetic education and consideration of mental health evaluation. (2) Hyperkalemia Is this a current diagnosis for this admission?: Yes Plan: Secondary to severe acidotic state, serial chemistries for the verification of correction (3) Noncompliance Is this a current diagnosis for this admission?: Yes Plan: Discharge planning consult - Time Time Spent: 50 to 70 Minutes - Inpatient Certification Medical Necessity: Need Close Monitoring Due to Risk of Patient Decompensation
[2017-04-10 05:12] LABS: HEMATOCRIT 30.8 % (37.9-51.0); HEMOGLOBIN 9.9 g/dL (13.5-17.0); MEAN CORPUSCULAR HEMOGLOBIN 25.4 pg (27.0-33.4); MEAN CORPUSCULAR HGB CONC 32.2 g/dL (32.0-36.0); PLATELET COUNT 363 10^3/uL (150-450); RED BLOOD COUNT 3.92 10^6/uL (4.35-5.55); RED CELL DISTRIBUTION WIDTH 16.6 % (11.5-14.0); WHITE BLOOD COUNT 21.8 10^3/uL (4.0-10.5)
[2017-04-10 05:31] LABS: BLOOD UREA NITROGEN 33 mg/dL (7-20); CALCIUM 8.7 mg/dL (8.4-10.2); CHLORIDE 111 mmol/L (98-107); GLUCOSE 361 mg/dL (75-110); SODIUM 136.3 mmol/L (137-145)
[2017-04-10 05:36] LABS: ANION GAP 14 (5-19)
[2017-04-10 05:41] LABS: CREATINE KINASE MB 5.07 ng/mL (<4.55); TROPONIN I 0.014 ng/mL
[2017-04-10 05:47] LABS: CARBON DIOXIDE 11 mmol/L (22-30)
[2017-04-10] MEDS: HEPARIN SOD (PORCINE) 5,000 UNIT/ML 1 ML SYRINGE SUBCUT SCH ×3 (05:47→22:09)
[2017-04-10 05:48] LABS: POTASSIUM 3.9 mmol/L (3.6-5.0)
[2017-04-10 06:03] LABS: TRIGLYCERIDES 56 mg/dL (<150)
[2017-04-10 06:13] LABS: DIRECT LDL 68 mg/dL (<100)
[2017-04-10] MEDS ORDERED: POTASSI CL 20 MEQ/1/2NS 1L 20 MEQ/1,000 ML RTUINJ IV PRN (06:15)
[2017-04-10 06:28] LABS: MEAN CORPUSCULAR VOLUME 79 fl (80-97)
[2017-04-10 06:33] LABS: ABSOLUTE LYMPHOCYTES# (MANUAL) 1.7 10^3/uL (0.5-4.7); ABSOLUTE MONOCYTES # (MANUAL) 0.4 10^3/uL (0.1-1.4); ABSOLUTE NEUTROPHILS# (MANUAL) 19.6 10^3/uL (1.7-8.2); BAND NEUTROPHILS % (MANUAL) 1 % (3-5); BASOPHILS % (MANUAL) 0 % (0-2); EOSINOPHILS % (MANUAL) 0 % (0-6); LYMPHOCYTES % (MANUAL) 8 % (13-45); MONOCYTES % (MANUAL) 2 % (3-13); SEGMENTED NEUTROPHILS % (MAN) 89 % (42-78); TOTAL CELLS COUNTED 100
[2017-04-10 06:35] LABS: ANISOCYTOSIS 1+; HYPOCHROMASIA SLIGHT; OVALOCYTES 2+; PLATELET CLUMPS PRESENT; PLATELET COMMENT ADEQUATE; POIKILOCYTOSIS 1+; POLYCHROMASIA SLIGHT
[2017-04-10] MEDS: DOCUSATE SODIUM 100 MG CAPSULE PO SCH ×2 (10:05→17:23)
[2017-04-10] MEDS: NORMAL SALINE 100 ML with INSULIN REGULAR, HUMAN 100 UNIT IV PRN ×2 (11:36)
[2017-04-10 12:24] LABS: ANION GAP 7 (5-19); BLOOD UREA NITROGEN 30 mg/dL (7-20); CALCIUM 8.7 mg/dL (8.4-10.2); CARBON DIOXIDE 20 mmol/L (22-30); CHLORIDE 112 mmol/L (98-107); CREATINE KINASE 121 U/L (55-170); GLUCOSE 159 mg/dL (75-110); POTASSIUM 3.8 mmol/L (3.6-5.0); SODIUM 138.9 mmol/L (137-145)
[2017-04-10 12:34] LABS: CREATINE KINASE MB 3.47 ng/mL (<4.55); TROPONIN I 0.019 ng/mL
[2017-04-10] MEDS: POTASSI CL 20 MEQ/D5NS 1L 1000 ML IV PRN ×2 (12:34→18:43)
--- NOTE | 2017-04-10 12:42 | PDOC PROGRESS REPORT ---
Subjective Progress Note for:: 04/10/17 Subjective:: Admitted overnight earlier this morning but did nuctunist. Patient sleeping, but arousable. He is still on insulin drip and n.p.o. No fever or chills, no cough or hemoptysis, no abdominal pain or nausea or vomiting at this time. Reason For Visit: DKA HYPERKALEMIA Physical Exam Vital Signs: Temp Pulse Resp BP Pulse Ox 97.0 F 89 17 108/71 99 04/10/17 09:52 04/10/17 10:00 04/10/17 11:00 04/10/17 10:37 04/10/17 11:00 Intake & Output 04/09/17 04/10/17 04/11/17 06:59 06:59 06:59 Intake Total 1063 Output Total 0 1220 Balance 1063 -1220 Weight 62.2 kg GEN: NAD, well-developed, well-nourished CV: RRR, NL S1S2 LUNGS: CTA bilaterally ABDOMEN Soft, NT, +BS EXTERMITIES: No e/c/c NEURO: Arousable Results Laboratory Results: 04/10/17 04:40 04/10/17 11:37 04/09/17 04/09/17 04/10/17 23:50 23:50 00:23 WBC RBC Hgb Hct MCV MCH MCHC RDW Plt Count Seg Neutrophils % Lymphocytes % Monocytes % Eosinophils % Basophils % Absolute Neutrophils Absolute Lymphocytes Absolute Monocytes Absolute Eosinophils Absolute Basophils Sodium 131.4 L Potassium 5.0 D Chloride 98 Carbon Dioxide < 5 L* Anion Gap Not Reportable BUN 34 H Creatinine 1.49 H Est GFR ( Amer) > 60 Est GFR (Non-Af Amer) 54 L Glucose 680 H* Lactic Acid 1.9 Calcium 9.7 Phosphorus 4.5 Triglycerides Cholesterol LDL Cholesterol Direct VLDL Cholesterol HDL Cholesterol 04/10/17 04/10/17 04/10/17 04:40 04:40 04:40 WBC 21.8 H RBC 3.92 L Hgb 9.9 L Hct 30.8 L MCV 79 L D MCH 25.4 L MCHC 32.2 RDW 16.6 H Plt Count 363 Seg Neutrophils % Not Reportable Lymphocytes % Not Reportable Monocytes % Not Reportable Eosinophils % Not Reportable Basophils % Not Reportable Absolute Neutrophils Not Reportable Absolute Lymphocytes Not Reportable Absolute Monocytes Not Reportable Absolute Eosinophils Not Reportable Absolute Basophils Not Reportable Sodium 136.3 L Potassium 3.9 D Chloride 111 H Carbon Dioxide 11 L Anion Gap 14 BUN 33 H Creatinine 1.17 Est GFR ( Amer) > 60 Est GFR (Non-Af Amer) > 60 Glucose 361 H Lactic Acid Calcium 8.7 Phosphorus Triglycerides 56 Cholesterol 132.00 LDL Cholesterol Direct 68 VLDL Cholesterol 11.0 HDL Cholesterol 51 04/10/17 11:37 WBC RBC Hgb Hct MCV MCH MCHC RDW Plt Count Seg Neutrophils % Lymphocytes % Monocytes % Eosinophils % Basophils % Absolute Neutrophils Absolute Lymphocytes Absolute Monocytes Absolute Eosinophils Absolute Basophils Sodium 138.9 Potassium 3.8 Chloride 112 H Carbon Dioxide 20 L Anion Gap 7 BUN 30 H Creatinine 0.96 Est GFR ( Amer) > 60 Est GFR (Non-Af Amer) > 60 Glucose 159 H Lactic Acid Calcium 8.7 Phosphorus Triglycerides Cholesterol LDL Cholesterol Direct VLDL Cholesterol HDL Cholesterol 04/09/17 04/09/17 04/10/17 23:50 23:50 04:40 Creatine Kinase 196 H 165 CK-MB (CK-2) 5.32 H Troponin I < 0.012 04/10/17 04/10/17 04:40 11:37 Creatine Kinase 121 CK-MB (CK-2) 5.07 H Troponin I 0.014 Impressions: Chest X-Ray 04/09/17 19:46 IMPRESSION: NO ACUTE RADIOGRAPHIC FINDING IN THE CHEST. Assessment & Plan - Diagnosis (1) Diabetic ketoacidosis Qualifiers: Diabetes mellitus type: type 1 Diabetes mellitus complication detail: without coma Qualified Code(s): E10.10 - Type 1 diabetes mellitus with ketoacidosis without coma Is this a current diagnosis for this admission?: Yes Plan: Continue insulin drip. Change IV fluid to D5NS blood glucose less than 250 and continue insulin drip until anion gap closes and with plans to bridge with subcu insulin prior to turning off insulin drip. This was communicated to the nurse. (2) Hyperkalemia Is this a current diagnosis for this admission?: Yes Plan: Was likely secondary to DKA/acidosis. Now resolved. Now on IV fluid with KCl for low potassium. (3) Leukocytosis Qualifiers: Leukocytosis type: unspecified Qualified Code(s): D72.829 - Elevated white blood cell count, unspecified Plan: This may be reactive secondary to DKA. Will continue to trend. No clear evidence of infection at this point, with normal UA and chest x-ray are no suspicious skin finding. Abdominal exam benign. (4) Noncompliance Is this a current diagnosis for this admission?: Yes Plan: Continues to indicate about medications compliance. (5) Tobacco dependency Is this a current diagnosis for this admission?: Yes Plan: Nicotine patch. Continue to educate about tobacco cessation.
[2017-04-10] MEDS ORDERED: INSULIN REG, HUMAN 100 UNIT/ML 3 ML VIAL (PYX) SUBCUT ONE (13:00)
[2017-04-10 16:19] LABS: BLOOD UREA NITROGEN 29 mg/dL (7-20); CALCIUM 8.1 mg/dL (8.4-10.2); GLUCOSE 133 mg/dL (75-110)
[2017-04-10 16:24] LABS: CARBON DIOXIDE 20 mmol/L (22-30); CHLORIDE 116 mmol/L (98-107); SODIUM 137.5 mmol/L (137-145)
[2017-04-10 16:31] LABS: ANION GAP 2 (5-19); POTASSIUM 3.9 mmol/L (3.6-5.0)
[2017-04-10 20:34] LABS: ANION GAP 6 (5-19); BLOOD UREA NITROGEN 27 mg/dL (7-20); CALCIUM 8.6 mg/dL (8.4-10.2); CARBON DIOXIDE 19 mmol/L (22-30); CHLORIDE 115 mmol/L (98-107); GLUCOSE 169 mg/dL (75-110); SODIUM 140.2 mmol/L (137-145)
[2017-04-11 00:15] LABS: ANION GAP 7 (5-19); BLOOD UREA NITROGEN 27 mg/dL (7-20); CALCIUM 8.4 mg/dL (8.4-10.2); CARBON DIOXIDE 18 mmol/L (22-30); CHLORIDE 116 mmol/L (98-107); GLUCOSE 233 mg/dL (75-110); POTASSIUM 4.2 mmol/L (3.6-5.0); SODIUM 140.9 mmol/L (137-145)
[2017-04-11] MEDS: POTASSI CL 20 MEQ/D5NS 1L 1000 ML IV PRN ×2 (01:49→07:55)
[2017-04-11] MEDS: HEPARIN SOD (PORCINE) 5,000 UNIT/ML 1 ML SYRINGE SUBCUT SCH ×2 (05:20→14:26)
[2017-04-11 05:48] LABS: ABSOLUTE BASOPHILS # (AUTO) 0.1 10^3/uL (0.0-0.2); ABSOLUTE LYMPHOCYTES (AUTO) 1.4 10^3/uL (0.5-4.7); ABSOLUTE MONOCYTES (AUTO) 1.1 10^3/uL (0.1-1.4); ABSOLUTE NEUT (AUTO) 14.2 10^3/uL (1.7-8.2); BASOPHILS % (AUTO) 0.4 % (0-2); EOSINOPHILS % (AUTO) 0.1 % (0-6); HEMATOCRIT 26.5 % (37.9-51.0); HEMOGLOBIN 8.3 g/dL (13.5-17.0); LYMPHOCYTES % (AUTO) 8.5 % (13-45); MEAN CORPUSCULAR HEMOGLOBIN 24.2 pg (27.0-33.4); MEAN CORPUSCULAR HGB CONC 31.5 g/dL (32.0-36.0); MEAN CORPUSCULAR VOLUME 77 fl (80-97); MONOCYTES % (AUTO) 6.3 % (3-13); PLATELET COUNT 273 10^3/uL (150-450); RED BLOOD COUNT 3.45 10^6/uL (4.35-5.55); RED CELL DISTRIBUTION WIDTH 16.7 % (11.5-14.0); SEGMENTED NEUTROPHILS % (AUTO) 84.7 % (42-78); TOTAL CELLS COUNTED % (AUTO) 100 %; WHITE BLOOD COUNT 16.8 10^3/uL (4.0-10.5)
[2017-04-11 06:03] LABS: ANION GAP 5 (5-19); BLOOD UREA NITROGEN 24 mg/dL (7-20); CALCIUM 8.4 mg/dL (8.4-10.2); CARBON DIOXIDE 19 mmol/L (22-30); CHLORIDE 117 mmol/L (98-107); GLUCOSE 170 mg/dL (75-110); POTASSIUM 3.9 mmol/L (3.6-5.0)
[2017-04-11] MEDS ORDERED: INSULIN REG, HUMAN 100 UNIT/ML 3 ML VIAL (PYX) SUBCUT PRN (09:04)
[2017-04-11] MEDS: DOCUSATE SODIUM 100 MG CAPSULE PO SCH ×2 (09:35→17:30)
[2017-04-11 10:07] LABS: ANION GAP 6 (5-19); BLOOD UREA NITROGEN 21 mg/dL (7-20); CALCIUM 8.5 mg/dL (8.4-10.2); CARBON DIOXIDE 17 mmol/L (22-30); CHLORIDE 116 mmol/L (98-107); GLUCOSE 211 mg/dL (75-110); POTASSIUM 4.2 mmol/L (3.6-5.0)
[2017-04-11] MEDS ORDERED: INSULIN REG, HUMAN 100 UNIT/ML 3 ML VIAL (PYX) SUBCUT ONE (10:30)
[2017-04-11] MEDS: INSULIN LISPRO 100 UNIT/ML 3 ML VIAL SUBCUT PRN ×6 (11:10→18:03)
[2017-04-11 12:25] LABS: ANION GAP 6 (5-19); BLOOD UREA NITROGEN 19 mg/dL (7-20); CALCIUM 8.4 mg/dL (8.4-10.2); CARBON DIOXIDE 19 mmol/L (22-30); CHLORIDE 112 mmol/L (98-107); GLUCOSE 361 mg/dL (75-110); POTASSIUM 3.9 mmol/L (3.6-5.0); SODIUM 136.8 mmol/L (137-145)
[2017-04-11] MEDS ORDERED: INSULIN GLARGINE,HUM.REC.ANLOG 1,000 UNIT/10 ML UNIT SUBCUT ONE (15:30)
--- NOTE | 2017-04-11 15:35 | PDOC PROGRESS REPORT ---
Subjective Progress Note for:: 04/11/17 Subjective:: Admitted for DKA. Doing better, more awake and interactive. Now off insulin drip. No fever or chills, no cough or hemoptysis, no abdominal pain or nausea or vomiting. Reason For Visit: DKA HYPERKALEMIA Physical Exam Vital Signs: Temp Pulse Resp BP Pulse Ox 97.0 F 91 18 113/84 100 04/11/17 14:00 04/11/17 14:00 04/11/17 14:00 04/11/17 14:00 04/11/17 14:00 Intake & Output 04/10/17 04/11/17 04/12/17 06:59 06:59 06:59 Intake Total 1063 4376 Output Total 0 2885 1460 Balance 1063 1491 -1460 Weight 62.2 kg 60.7 kg GEN: NAD, well-developed, well-nourished CV: RRR, NL S1S2 LUNGS: CTA bilaterally ABDOMEN Soft, NT, +BS EXTERMITIES: No e/c/c NEURO: Alert, oriented 3, no focal weakness Results Laboratory Results: 04/11/17 05:20 04/11/17 12:00 04/10/17 04/10/17 04/10/17 15:39 20:00 23:45 WBC RBC Hgb Hct MCV MCH MCHC RDW Plt Count Seg Neutrophils % Lymphocytes % Monocytes % Eosinophils % Basophils % Absolute Neutrophils Absolute Lymphocytes Absolute Monocytes Absolute Eosinophils Absolute Basophils Sodium 137.5 140.2 140.9 Potassium 3.9 4.0 4.2 Chloride 116 H 115 H 116 H Carbon Dioxide 20 L 19 L 18 L Anion Gap 2 L 6 7 BUN 29 H 27 H 27 H Creatinine 0.82 0.88 0.83 Est GFR ( Amer) > 60 > 60 > 60 Est GFR (Non-Af Amer) > 60 > 60 > 60 Glucose 133 H 169 H 233 H Calcium 8.1 L 8.6 8.4 Magnesium 04/11/17 04/11/17 04/11/17 05:20 05:20 09:30 WBC 16.8 H RBC 3.45 L Hgb 8.3 L Hct 26.5 L MCV 77 L MCH 24.2 L MCHC 31.5 L RDW 16.7 H Plt Count 273 Seg Neutrophils % 84.7 H Lymphocytes % 8.5 L Monocytes % 6.3 Eosinophils % 0.1 Basophils % 0.4 Absolute Neutrophils 14.2 H Absolute Lymphocytes 1.4 Absolute Monocytes 1.1 Absolute Eosinophils 0.0 Absolute Basophils 0.1 Sodium 141.0 139.0 Potassium 3.9 4.2 Chloride 117 H 116 H Carbon Dioxide 19 L 17 L Anion Gap 5 6 BUN 24 H 21 H Creatinine 0.80 0.81 Est GFR ( Amer) > 60 > 60 Est GFR (Non-Af Amer) > 60 > 60 Glucose 170 H 211 H Calcium 8.4 8.5 Magnesium 1.9 04/11/17 12:00 WBC RBC Hgb Hct MCV MCH MCHC RDW Plt Count Seg Neutrophils % Lymphocytes % Monocytes % Eosinophils % Basophils % Absolute Neutrophils Absolute Lymphocytes Absolute Monocytes Absolute Eosinophils Absolute Basophils Sodium 136.8 L Potassium 3.9 Chloride 112 H Carbon Dioxide 19 L Anion Gap 6 BUN 19 Creatinine 0.80 Est GFR ( Amer) > 60 Est GFR (Non-Af Amer) > 60 Glucose 361 H Calcium 8.4 Magnesium 04/09/17 04/09/17 04/10/17 23:50 23:50 04:40 Creatine Kinase 196 H 165 CK-MB (CK-2) 5.32 H Troponin I < 0.012 04/10/17 04/10/17 04/10/17 04:40 11:37 11:37 Creatine Kinase 121 CK-MB (CK-2) 5.07 H 3.47 Troponin I 0.014 0.019 Impressions: Chest X-Ray 04/09/17 19:46 IMPRESSION: NO ACUTE RADIOGRAPHIC FINDING IN THE CHEST. Assessment & Plan - Diagnosis (1) Diabetic ketoacidosis Qualifiers: Diabetes mellitus type: type 1 Diabetes mellitus complication detail: without coma Qualified Code(s): E10.10 - Type 1 diabetes mellitus with ketoacidosis without coma Is this a current diagnosis for this admission?: Yes Plan: Now off insulin drip. Will change D5NS to NS; patient advanced to clear liquid diet, advance as tolerated. Subcu insulin, as well as Lantus 30 units today. Patient ordinarily on 24 units twice daily at home, will resume that dosee in a.m. if tolerating po's. -Downgraded to IMCU status if remains stable. (2) Hyperkalemia Is this a current diagnosis for this admission?: Yes Plan: Was likely secondary to DKA/acidosis. Resolved. (3) Leukocytosis Qualifiers: Leukocytosis type: unspecified Qualified Code(s): D72.829 - Elevated white blood cell count, unspecified Plan: This may be reactive secondary to DKA. Improving, but will continue to trend. No clear evidence of infection at this point, with normal UA and chest x-ray are no suspicious skin finding. Abdominal exam benign. (4) Noncompliance Is this a current diagnosis for this admission?: Yes Plan: Continues to indicate about medications compliance. (5) Tobacco dependency Is this a current diagnosis for this admission?: Yes Plan: Nicotine patch. Continue to educate about tobacco cessation. (6) Anemia Qualifiers: Anemia type: unspecified type Qualified Code(s): D64.9 - Anemia, unspecified Is this a current diagnosis for this admission?: Yes Plan: Apparently anemia of chronic disease. Will check anemia profile in a.m.
[2017-04-11] MEDS: ONDANSETRON 4 MG TAB.RAPDIS PO PRN (15:57)
[2017-04-11] MEDS: OXYCODONE HCL IR 5 MG TABLET PO PRN ×2 (15:57→19:56)
[2017-04-11 16:46] LABS: ANION GAP 5 (5-19); BLOOD UREA NITROGEN 17 mg/dL (7-20); CALCIUM 7.9 mg/dL (8.4-10.2); CARBON DIOXIDE 19 mmol/L (22-30); CHLORIDE 112 mmol/L (98-107); GLUCOSE 326 mg/dL (75-110); POTASSIUM 3.4 mmol/L (3.6-5.0); SODIUM 135.7 mmol/L (137-145)
[2017-04-11 20:29] LABS: ANION GAP 6 (5-19); BLOOD UREA NITROGEN 17 mg/dL (7-20); CALCIUM 7.8 mg/dL (8.4-10.2); CARBON DIOXIDE 18 mmol/L (22-30); CHLORIDE 111 mmol/L (98-107); POTASSIUM 3.6 mmol/L (3.6-5.0); SODIUM 134.5 mmol/L (137-145)
[2017-04-11 20:30] LABS: GLUCOSE 120 mg/dL (75-110)
[2017-04-11] MEDS: PROMETHAZINE HCL 25 MG TABLET PO PRN (22:19)
[2017-04-12] MEDS ORDERED: OXYCODONE HCL IR 5 MG TABLET PO PRN
[2017-04-12] MEDS ORDERED: NORMAL SALINE 1000 ML 1,000 ML IV PRN
[2017-04-12] MEDS ORDERED: ONDANSETRON 4 MG TAB.RAPDIS PO PRN
[2017-04-12] MEDS: OXYCODONE HCL IR 5 MG TABLET PO PRN ×5 (00:15→21:59)
[2017-04-12 01:01] LABS: BLOOD UREA NITROGEN 17 mg/dL (7-20); CALCIUM 7.6 mg/dL (8.4-10.2); GLUCOSE 113 mg/dL (75-110); POTASSIUM 3.7 mmol/L (3.6-5.0)
[2017-04-12 01:06] LABS: CARBON DIOXIDE 21 mmol/L (22-30); CHLORIDE 115 mmol/L (98-107); SODIUM 137.5 mmol/L (137-145)
[2017-04-12 01:07] LABS: ANION GAP 2 (5-19)
[2017-04-12 05:12] LABS: ABSOLUTE LYMPHOCYTES (AUTO) 1.6 10^3/uL (0.5-4.7); ABSOLUTE MONOCYTES (AUTO) 0.8 10^3/uL (0.1-1.4); ABSOLUTE NEUT (AUTO) 7.8 10^3/uL (1.7-8.2); ABSOLUTE RETICS # 0.043 10^6/uL (0.028-0.122); BASOPHILS % (AUTO) 0.3 % (0-2); BLOOD UREA NITROGEN 16 mg/dL (7-20); CALCIUM 7.9 mg/dL (8.4-10.2); EOSINOPHILS % (AUTO) 0.5 % (0-6); GLUCOSE 129 mg/dL (75-110); HEMATOCRIT 23.8 % (37.9-51.0); IRON(TIBC) 49.9 ug/dL (49-181); LYMPHOCYTES % (AUTO) 15.2 % (13-45); MEAN CORPUSCULAR HEMOGLOBIN 24.7 pg (27.0-33.4); MEAN CORPUSCULAR HGB CONC 32.2 g/dL (32.0-36.0); MEAN CORPUSCULAR VOLUME 77 fl (80-97); PLATELET COUNT 237 10^3/uL (150-450); RED CELL DISTRIBUTION WIDTH 17.6 % (11.5-14.0); RETICULOCYTE COUNT (AUTO) 1.39 % (0.66-2.85); TOTAL CELLS COUNTED % (AUTO) 100 %; WHITE BLOOD COUNT 10.3 10^3/uL (4.0-10.5)
[2017-04-12 05:14] LABS: HEMOGLOBIN 7.7 g/dL (13.5-17.0)
[2017-04-12 05:29] LABS: CARBON DIOXIDE 22 mmol/L (22-30); CHLORIDE 111 mmol/L (98-107); POTASSIUM 3.9 mmol/L (3.6-5.0)
[2017-04-12 05:34] LABS: SODIUM 136.3 mmol/L (137-145)
[2017-04-12 06:18] LABS: FOLATE 5.51 ng/mL (>2.76)
[2017-04-12] MEDS: PROMETHAZINE HCL 25 MG TABLET PO PRN ×2 (07:38→21:59)
[2017-04-12 08:02] LABS: ANION GAP 3 (5-19)
[2017-04-12 09:20] LABS: BLOOD UREA NITROGEN 16 mg/dL (7-20); GLUCOSE 147 mg/dL (75-110); POTASSIUM 3.6 mmol/L (3.6-5.0)
[2017-04-12 09:25] LABS: CARBON DIOXIDE 21 mmol/L (22-30); CHLORIDE 112 mmol/L (98-107); SODIUM 136.2 mmol/L (137-145)
[2017-04-12 09:26] LABS: ANION GAP 3 (5-19)
[2017-04-12] MEDS ORDERED: INSULIN GLARGINE,HUM.REC.ANLOG 1,000 UNIT/10 ML UNIT SUBCUT SCH (10:00)
[2017-04-12] MEDS: DOCUSATE SODIUM 100 MG CAPSULE PO SCH ×2 (11:20→17:28)
[2017-04-12] MEDS: ENOXAPARIN SODIUM INJ 40 MG/0.4 ML DISP.SYRIN SUBCUT SCH (11:30)
[2017-04-12] MEDS: PROMETHAZINE HCL INJ 25 MG/1 ML VIAL IV PRN (12:50)
[2017-04-12 13:16] LABS: BLOOD UREA NITROGEN 16 mg/dL (7-20); CALCIUM 8.5 mg/dL (8.4-10.2); GLUCOSE 228 mg/dL (75-110)
[2017-04-12 13:17] LABS: ANION GAP 6 (5-19); CARBON DIOXIDE 22 mmol/L (22-30); CHLORIDE 108 mmol/L (98-107); POTASSIUM 3.8 mmol/L (3.6-5.0); SODIUM 135.5 mmol/L (137-145)
[2017-04-12 14:07] LABS: PATH REVIEW PATHOLOGIST REVIEWED
[2017-04-12] MEDS: NORMAL SALINE 1000 ML 1,000 ML IV PRN (16:58)
[2017-04-12 17:37] LABS: ANION GAP 5 (5-19); BLOOD UREA NITROGEN 17 mg/dL (7-20); CALCIUM 8.4 mg/dL (8.4-10.2); CARBON DIOXIDE 23 mmol/L (22-30); CHLORIDE 108 mmol/L (98-107); GLUCOSE 276 mg/dL (75-110); POTASSIUM 3.8 mmol/L (3.6-5.0); SODIUM 136.4 mmol/L (137-145)
[2017-04-12] MEDS: INSULIN LISPRO 100 UNIT/ML 3 ML VIAL SUBCUT PRN (18:27)
--- NOTE | 2017-04-12 20:21 | PDOC PROGRESS REPORT ---
Subjective Progress Note for:: 04/12/17 Subjective:: Admitted for DKA. Doing better, tolerating clear liquids, although still with nausea vomiting. Would like Reglan changed to IV for now. No fever or chills, no cough or hemoptysis, no abdominal pain or nausea or vomiting. Reason For Visit: DKA HYPERKALEMIA Physical Exam Vital Signs: Temp Pulse Resp BP Pulse Ox 97.7 F 98 18 102/76 98 04/12/17 12:00 04/12/17 15:53 04/12/17 15:53 04/12/17 15:53 04/12/17 15:53 Intake & Output 04/11/17 04/12/17 04/13/17 06:59 06:59 06:59 Intake Total 4376 3665 100 Output Total 2885 2690 Balance 1491 975 100 Weight 60.7 kg GEN: NAD, well-developed, well-nourished CV: RRR, NL S1S2 LUNGS: CTA bilaterally ABDOMEN Soft, NT, +BS EXTERMITIES: No e/c/c NEURO: Alert, oriented 3, no focal weakness Results Laboratory Results: 04/12/17 04:35 04/12/17 16:58 04/11/17 04/12/17 04/12/17 20:00 00:20 04:35 WBC 10.3 RBC 3.10 L Hgb 7.7 L Hct 23.8 L MCV 77 L MCH 24.7 L MCHC 32.2 RDW 17.6 H Plt Count 237 Seg Neutrophils % 76.0 Lymphocytes % 15.2 Monocytes % 8.0 Eosinophils % 0.5 Basophils % 0.3 Absolute Neutrophils 7.8 Absolute Lymphocytes 1.6 Absolute Monocytes 0.8 Absolute Eosinophils 0.0 Absolute Basophils 0.0 Retic Count (auto) 1.39 Absolute Retic 0.043 Sodium 134.5 L 137.5 Potassium 3.6 3.7 Chloride 111 H 115 H Carbon Dioxide 18 L 21 L Anion Gap 6 2 L BUN 17 17 Creatinine 0.63 0.66 Est GFR ( Amer) > 60 > 60 Est GFR (Non-Af Amer) > 60 > 60 Glucose 120 H 113 H Calcium 7.8 L 7.6 L Iron TIBC % Saturation Ferritin Vitamin B12 Folate 04/12/17 04/12/17 04/12/17 04:35 08:35 12:45 WBC RBC Hgb Hct MCV MCH MCHC RDW Plt Count Seg Neutrophils % Lymphocytes % Monocytes % Eosinophils % Basophils % Absolute Neutrophils Absolute Lymphocytes Absolute Monocytes Absolute Eosinophils Absolute Basophils Retic Count (auto) Absolute Retic Sodium 136.3 L 136.2 L 135.5 L Potassium 3.9 3.6 3.8 Chloride 111 H 112 H 108 H Carbon Dioxide 22 21 L 22 Anion Gap 3 L 3 L 6 BUN 16 16 16 Creatinine 0.64 0.62 0.65 Est GFR ( Amer) > 60 > 60 > 60 Est GFR (Non-Af Amer) > 60 > 60 > 60 Glucose 129 H 147 H 228 H Calcium 7.9 L 8.0 L 8.5 Iron 49.9 TIBC 317 % Saturation 16 Ferritin 30.70 Vitamin B12 868.0 Folate 5.51 04/12/17 16:58 WBC RBC Hgb Hct MCV MCH MCHC RDW Plt Count Seg Neutrophils % Lymphocytes % Monocytes % Eosinophils % Basophils % Absolute Neutrophils Absolute Lymphocytes Absolute Monocytes Absolute Eosinophils Absolute Basophils Retic Count (auto) Absolute Retic Sodium 136.4 L Potassium 3.8 Chloride 108 H Carbon Dioxide 23 Anion Gap 5 BUN 17 Creatinine 0.70 Est GFR ( Amer) > 60 Est GFR (Non-Af Amer) > 60 Glucose 276 H Calcium 8.4 Iron TIBC % Saturation Ferritin Vitamin B12 Folate 04/09/17 04/09/17 04/10/17 23:50 23:50 04:40 Creatine Kinase 196 H 165 CK-MB (CK-2) 5.32 H Troponin I < 0.012 04/10/17 04/10/17 04/10/17 04:40 11:37 11:37 Creatine Kinase 121 CK-MB (CK-2) 5.07 H 3.47 Troponin I 0.014 0.019 Impressions: Chest X-Ray 04/09/17 19:46 IMPRESSION: NO ACUTE RADIOGRAPHIC FINDING IN THE CHEST. Assessment & Plan - Diagnosis (1) Diabetic ketoacidosis Qualifiers: Diabetes mellitus type: type 1 Diabetes mellitus complication detail: without coma Qualified Code(s): E10.10 - Type 1 diabetes mellitus with ketoacidosis without coma Is this a current diagnosis for this admission?: Yes Plan: Resolved. Advance diet as tolerated. Continue Lantus and sliding scale insulin. (2) Hyperkalemia Is this a current diagnosis for this admission?: Yes Plan: Was likely secondary to DKA/acidosis. Resolved. (3) Leukocytosis Qualifiers: Leukocytosis type: unspecified Qualified Code(s): D72.829 - Elevated white blood cell count, unspecified Plan: This may be reactive secondary to DKA. Resolved. No clear evidence of infection, with normal UA and chest x-ray. (4) Noncompliance Is this a current diagnosis for this admission?: Yes Plan: Continues to educate about medications compliance. (5) Tobacco dependency Is this a current diagnosis for this admission?: Yes Plan: Nicotine patch. Continue to educate about tobacco cessation. (6) Anemia Is this a current diagnosis for this admission?: Yes Plan: Apparently anemia of chronic disease. (7) Nausea & vomiting Is this a current diagnosis for this admission?: Yes Plan: Patient possibly with gastroparesis. Will treat with Reglan IV for now. Consider transitioning to p.o.
[2017-04-12] MEDS: INSULIN GLARGINE,HUM.REC.ANLOG 300 UNIT/3 ML INSULN.PEN SUBCUT SCH (21:59)
[2017-04-13] MEDS: OXYCODONE HCL IR 5 MG TABLET PO PRN ×5 (02:12→20:42)
[2017-04-13] MEDS: NORMAL SALINE 1000 ML 1,000 ML IV PRN ×2 (06:00→15:42)
[2017-04-13] MEDS: PROMETHAZINE HCL 25 MG TABLET PO PRN ×2 (06:34→15:40)
[2017-04-13] MEDS: INSULIN GLARGINE,HUM.REC.ANLOG 300 UNIT/3 ML INSULN.PEN SUBCUT SCH ×2 (09:51→22:25)
[2017-04-13] MEDS: DOCUSATE SODIUM 100 MG CAPSULE PO SCH ×2 (09:58→17:08)
[2017-04-13] MEDS: ENOXAPARIN SODIUM INJ 40 MG/0.4 ML DISP.SYRIN SUBCUT SCH (09:58)
[2017-04-13 10:36] LABS: ANION GAP 6 (5-19); BLOOD UREA NITROGEN 13 mg/dL (7-20); CALCIUM 8.3 mg/dL (8.4-10.2); CARBON DIOXIDE 20 mmol/L (22-30); CHLORIDE 112 mmol/L (98-107); GLUCOSE 149 mg/dL (75-110); POTASSIUM 3.6 mmol/L (3.6-5.0); SODIUM 137.7 mmol/L (137-145)
[2017-04-13] MEDS: ONDANSETRON 4 MG TAB.RAPDIS PO PRN (10:49)
[2017-04-13] MEDS: INSULIN LISPRO 100 UNIT/ML 3 ML VIAL SUBCUT PRN ×2 (17:31→22:25)
[2017-04-13] MEDS: PROMETHAZINE HCL INJ 25 MG/1 ML VIAL IV PRN (22:31)
[2017-04-13 22:37] LABS: ANION GAP 5 (5-19); BLOOD UREA NITROGEN 10 mg/dL (7-20); CARBON DIOXIDE 16 mmol/L (22-30); CHLORIDE 116 mmol/L (98-107); GLUCOSE 204 mg/dL (75-110); SODIUM 137.2 mmol/L (137-145)
[2017-04-13] MEDS ORDERED: POTASSIUM CHLORIDE 10 MEQ TABLET.SA PO ONE (23:00)
[2017-04-13] MEDS ORDERED: CALCIUM GLUCONATE 1,000 MG in DEXTROSE 5%-WATER 50 ML IV ONE (23:30)
[2017-04-13] MEDS ORDERED: CALCIUM GLUCONATE 1000 MG/10 ML INJ IV ONE (23:46)
[2017-04-14] MEDS: OXYCODONE HCL IR 5 MG TABLET PO PRN ×5 (01:13→21:00)
[2017-04-14] MEDS ORDERED: DIPHENHYDRAMINE HCL 25 MG CAPSULE PO PRN (07:21)
[2017-04-14] MEDS ORDERED: DIPHENOXYLATE HCL/ATROP SULF 2.5-0.025 MG TABLET PO PRN (07:22)
[2017-04-14] MEDS: METOCLOPRAMIDE HCL 10 MG TABLET PO SCH ×4 (07:45→21:00)
[2017-04-14] MEDS: PROMETHAZINE HCL INJ 25 MG/1 ML VIAL IV PRN ×2 (08:33→21:00)
[2017-04-14] MEDS: DOCUSATE SODIUM 100 MG CAPSULE PO SCH ×2 (08:37→17:05)
[2017-04-14] MEDS: INSULIN GLARGINE,HUM.REC.ANLOG 300 UNIT/3 ML INSULN.PEN SUBCUT SCH ×2 (09:10→21:00)
[2017-04-14] MEDS: ENOXAPARIN SODIUM INJ 40 MG/0.4 ML DISP.SYRIN SUBCUT SCH (09:12)
[2017-04-14 11:59] LABS: ALBUMIN 2.5 g/dL (3.5-5.0); ANION GAP 6 (5-19); BLOOD UREA NITROGEN 10 mg/dL (7-20); CALCIUM 8.4 mg/dL (8.4-10.2); CARBON DIOXIDE 22 mmol/L (22-30); CHLORIDE 112 mmol/L (98-107); GLUCOSE 149 mg/dL (75-110); POTASSIUM 3.7 mmol/L (3.6-5.0); SODIUM 140.2 mmol/L (137-145)
[2017-04-14] MEDS: INSULIN LISPRO 100 UNIT/ML 3 ML VIAL SUBCUT PRN (21:07)
[2017-04-15 05:08] LABS: ABSOLUTE EOSINOPHILS # (AUTO) 0.1 10^3/uL (0.0-0.6); ABSOLUTE LYMPHOCYTES (AUTO) 1.5 10^3/uL (0.5-4.7); ABSOLUTE MONOCYTES (AUTO) 0.6 10^3/uL (0.1-1.4); ABSOLUTE NEUT (AUTO) 4.7 10^3/uL (1.7-8.2); BASOPHILS % (AUTO) 0.7 % (0-2); EOSINOPHILS % (AUTO) 1.9 % (0-6); HEMATOCRIT 22.1 % (37.9-51.0); MEAN CORPUSCULAR HEMOGLOBIN 25.4 pg (27.0-33.4); MEAN CORPUSCULAR HGB CONC 32.6 g/dL (32.0-36.0); MEAN CORPUSCULAR VOLUME 78 fl (80-97); MONOCYTES % (AUTO) 8.9 % (3-13); PLATELET COUNT 263 10^3/uL (150-450); RED BLOOD COUNT 2.84 10^6/uL (4.35-5.55); RED CELL DISTRIBUTION WIDTH 18.4 % (11.5-14.0); SEGMENTED NEUTROPHILS % (AUTO) 67.5 % (42-78); TOTAL CELLS COUNTED % (AUTO) 100 %
[2017-04-15 05:10] LABS: HEMOGLOBIN 7.2 g/dL (13.5-17.0)
[2017-04-15 05:17] LABS: ANION GAP 6 (5-19); BLOOD UREA NITROGEN 13 mg/dL (7-20); CALCIUM 8.1 mg/dL (8.4-10.2); CARBON DIOXIDE 21 mmol/L (22-30); CHLORIDE 112 mmol/L (98-107); GLUCOSE 172 mg/dL (75-110); SODIUM 139.1 mmol/L (137-145)
[2017-04-15] MEDS: OXYCODONE HCL IR 5 MG TABLET PO PRN ×4 (05:28→23:50)
[2017-04-15] MEDS: PROMETHAZINE HCL INJ 25 MG/1 ML VIAL IV PRN ×3 (05:28→23:50)
[2017-04-15] MEDS: METOCLOPRAMIDE HCL 10 MG TABLET PO SCH ×4 (07:50→22:20)
[2017-04-15] MEDS: INSULIN LISPRO 100 UNIT/ML 3 ML VIAL SUBCUT PRN ×3 (07:50→22:20)
[2017-04-15] MEDS ORDERED: NORMAL SALINE 250 ML IV PRN ×2 (10:01)
[2017-04-15] MEDS ORDERED: DIPHENHYDRAMINE HCL 25 MG CAPSULE PO PRN (10:01)
[2017-04-15] MEDS ORDERED: FUROSEMIDE 20 MG TABLET PO PRN (10:01)
[2017-04-15] MEDS ORDERED: ACETAMINOPHEN 325 MG TABLET PO PRN (10:01)
[2017-04-15] MEDS: INSULIN GLARGINE,HUM.REC.ANLOG 300 UNIT/3 ML INSULN.PEN SUBCUT SCH ×2 (10:22→22:20)
[2017-04-15] MEDS: DOCUSATE SODIUM 100 MG CAPSULE PO SCH ×2 (10:28→16:45)
[2017-04-15 20:41] LABS: HEMOGLOBIN 8.4 g/dL (13.5-17.0); MEAN CORPUSCULAR HEMOGLOBIN 25.6 pg (27.0-33.4); MEAN CORPUSCULAR HGB CONC 32.3 g/dL (32.0-36.0); MEAN CORPUSCULAR VOLUME 79 fl (80-97); PLATELET COUNT 323 10^3/uL (150-450); RED BLOOD COUNT 3.28 10^6/uL (4.35-5.55); RED CELL DISTRIBUTION WIDTH 18.3 % (11.5-14.0); WHITE BLOOD COUNT 8.2 10^3/uL (4.0-10.5)
[2017-04-16] MEDS: OXYCODONE HCL IR 5 MG TABLET PO PRN ×4 (04:28→21:12)
[2017-04-16 05:48] LABS: HEMATOCRIT 25.9 % (37.9-51.0); HEMOGLOBIN 8.4 g/dL (13.5-17.0); MEAN CORPUSCULAR HEMOGLOBIN 25.7 pg (27.0-33.4); MEAN CORPUSCULAR HGB CONC 32.5 g/dL (32.0-36.0); MEAN CORPUSCULAR VOLUME 79 fl (80-97); PLATELET COUNT 348 10^3/uL (150-450); RED BLOOD COUNT 3.29 10^6/uL (4.35-5.55); RED CELL DISTRIBUTION WIDTH 18.3 % (11.5-14.0); WHITE BLOOD COUNT 10.4 10^3/uL (4.0-10.5)
[2017-04-16 06:07] LABS: ANION GAP 7 (5-19); BLOOD UREA NITROGEN 25 mg/dL (7-20); CALCIUM 8.6 mg/dL (8.4-10.2); CARBON DIOXIDE 24 mmol/L (22-30); CHLORIDE 110 mmol/L (98-107); GLUCOSE 88 mg/dL (75-110); POTASSIUM 4.1 mmol/L (3.6-5.0)
[2017-04-16 06:25] LABS: ABSOLUTE LYMPHOCYTES# (MANUAL) 2.4 10^3/uL (0.5-4.7); ABSOLUTE MONOCYTES # (MANUAL) 0.9 10^3/uL (0.1-1.4); ABSOLUTE NEUTROPHILS# (MANUAL) 6.8 10^3/uL (1.7-8.2); BAND NEUTROPHILS % (MANUAL) 1 % (3-5); BASOPHILS % (MANUAL) 0 % (0-2); EOSINOPHILS % (MANUAL) 3 % (0-6); LYMPHOCYTES % (MANUAL) 23 % (13-45); MONOCYTES % (MANUAL) 9 % (3-13); SEGMENTED NEUTROPHILS % (MAN) 64 % (42-78); TOTAL CELLS COUNTED 100
[2017-04-16 06:26] LABS: ANISOCYTOSIS 2+; PLATELET COMMENT ADEQUATE; POLYCHROMASIA SLIGHT; TOXIC GRANULATION 1+; TOXIC VACUOLATION PRESENT
[2017-04-16] MEDS: METOCLOPRAMIDE HCL 10 MG TABLET PO SCH ×4 (08:01→21:12)
[2017-04-16] MEDS: INSULIN LISPRO 100 UNIT/ML 3 ML VIAL SUBCUT PRN ×4 (08:01→23:22)
[2017-04-16] MEDS: DOCUSATE SODIUM 100 MG CAPSULE PO SCH ×2 (08:04→17:17)
[2017-04-16] MEDS: PROMETHAZINE HCL INJ 25 MG/1 ML VIAL IV PRN ×2 (09:05→18:15)
[2017-04-16] MEDS: INSULIN GLARGINE,HUM.REC.ANLOG 300 UNIT/3 ML INSULN.PEN SUBCUT SCH ×2 (11:23→23:22)
[2017-04-16] MEDS ORDERED: INSULIN GLARGINE,HUM.REC.ANLOG 300 UNIT/3 ML INSULN.PEN SUBCUT SCH (22:00)
--- NOTE | 2017-04-16 23:37 | PDOC PROGRESS REPORT ---
Subjective Progress Note for:: 04/13/17 Subjective:: Patient admitted for DKA along with nausea and vomiting. Patient still states he is having a lot of vomiting and diarrhea. He is starting to feel a little better. Reason For Visit: DKA HYPERKALEMIA Physical Exam Vital Signs: Temp Pulse Resp BP Pulse Ox 97.4 F 92 16 125/82 100 04/13/17 07:39 04/13/17 14:00 04/13/17 09:20 04/13/17 07:39 04/13/17 09:20 Intake & Output 04/12/17 04/13/17 04/14/17 06:59 06:59 06:59 Intake Total 3665 2200 1674 Output Total 2690 Balance 975 2200 1674 Weight 60.5 kg General appearance: PRESENT: no acute distress, thin Head exam: PRESENT: normocephalic Eye exam: PRESENT: EOMI. ABSENT: scleral icterus Ear exam: PRESENT: normal external ear exam Mouth exam: PRESENT: moist Neck exam: ABSENT: carotid bruit, JVD, lymphadenopathy, thyromegaly Respiratory exam: PRESENT: clear to auscultation alfonso. ABSENT: rales, rhonchi, wheezes Cardiovascular exam: PRESENT: RRR. ABSENT: diastolic murmur, rubs, systolic murmur Pulses: PRESENT: normal dorsalis pedis pul GI/Abdominal exam: PRESENT: normal bowel sounds, soft. ABSENT: distended, guarding, mass, organolmegaly, rebound, tenderness Rectal exam: PRESENT: deferred Extremities exam: PRESENT: full ROM. ABSENT: calf tenderness, clubbing, pedal edema Neurological exam: PRESENT: alert, awake, oriented to person, oriented to place , oriented to time, oriented to situation, CN II-XII grossly intact. ABSENT: motor sensory deficit Psychiatric exam: PRESENT: appropriate affect, normal mood. ABSENT: homicidal ideation, suicidal ideation Skin exam: PRESENT: dry, intact, warm. ABSENT: cyanosis, rash Results Laboratory Results: 04/12/17 04:35 04/13/17 10:00 04/12/17 04/13/17 04:35 10:00 Sodium 137.7 Potassium 3.6 Chloride 112 H Carbon Dioxide 20 L Anion Gap 6 BUN 13 Creatinine 0.58 Est GFR ( Amer) > 60 Est GFR (Non-Af Amer) > 60 Glucose 149 H Calcium 8.3 L Transferrin 208 04/09/17 04/09/17 04/10/17 23:50 23:50 04:40 Creatine Kinase 196 H 165 CK-MB (CK-2) 5.32 H Troponin I < 0.012 04/10/17 04/10/17 04/10/17 04:40 11:37 11:37 Creatine Kinase 121 CK-MB (CK-2) 5.07 H 3.47 Troponin I 0.014 0.019 Impressions: Chest X-Ray 04/09/17 19:46 IMPRESSION: NO ACUTE RADIOGRAPHIC FINDING IN THE CHEST. Assessment & Plan - Diagnosis (1) Diabetic ketoacidosis Qualifiers: Diabetes mellitus type: type 1 Diabetes mellitus complication detail: without coma Qualified Code(s): E10.10 - Type 1 diabetes mellitus with ketoacidosis without coma Is this a current diagnosis for this admission?: Yes Plan: Resolved. Continue subcutaneous insulin and monitor. Patient needs to be counseled on compliance. (2) Nausea & vomiting Is this a current diagnosis for this admission?: Yes Plan: There to gastroparesis. Patient started on Reglan. Patient states Phenergan helps better than Zofran. Explained to patient that he may have gastroparesis and would benefit from small frequent meals. Patient also will need gastric emptying study at some point. Explained to patient that he would have to be without narcotics and Reglan or antidiarrheals for 48-72 hours prior to the examination. Plain to him that this can be done as outpatient however he would have to be without any of these substances during that time. (3) Anemia Is this a current diagnosis for this admission?: Yes Plan: Possibly anemia of chronic disease. Continue to monitor. (4) Hyperkalemia Is this a current diagnosis for this admission?: Yes Plan: Secondary to DKA now resolved. (5) Leukocytosis Qualifiers: Leukocytosis type: unspecified Qualified Code(s): D72.829 - Elevated white blood cell count, unspecified Plan: Reactive secondary to DKA now resolved. Patient has no clear clear signs of infection. (6) Noncompliance Is this a current diagnosis for this admission?: Yes Plan: Patient needs to be educated on compliance. (7) Tobacco dependency Is this a current diagnosis for this admission?: Yes Plan: Patient counseled on smoking cessation. Nicotine patch in place. - Time Time Spent with patient: Less than 15 minutes Anticipated discharge: Home - Inpatient Certification Medical Necessity: Need for Pain Control
--- NOTE | 2017-04-16 23:41 | PDOC PROGRESS REPORT ---
Subjective Progress Note for:: 04/14/17 Subjective:: Patient admitted for DKA along with nausea and vomiting. Reports having a lot of diarrhea. Reason For Visit: DKA HYPERKALEMIA Physical Exam Vital Signs: Temp Pulse Resp BP Pulse Ox 99.1 F 92 16 122/83 100 04/14/17 16:57 04/14/17 16:57 04/14/17 16:57 04/14/17 16:57 04/14/17 16:57 Intake & Output 04/13/17 04/14/17 04/15/17 06:59 06:59 06:59 Intake Total 2200 3649 1382 Balance 2200 3649 1382 Weight 60.5 kg 70.6 kg General appearance: PRESENT: no acute distress, thin Head exam: PRESENT: atraumatic, normocephalic Eye exam: PRESENT: conjunctiva pink, EOMI, PERRLA. ABSENT: scleral icterus Ear exam: PRESENT: normal external ear exam Mouth exam: PRESENT: moist, tongue midline Neck exam: ABSENT: carotid bruit, JVD, lymphadenopathy, thyromegaly Respiratory exam: PRESENT: clear to auscultation alfonso. ABSENT: rales, rhonchi, wheezes Cardiovascular exam: PRESENT: RRR. ABSENT: diastolic murmur, rubs, systolic murmur Pulses: PRESENT: normal dorsalis pedis pul Vascular exam: PRESENT: normal capillary refill GI/Abdominal exam: PRESENT: normal bowel sounds, soft. ABSENT: distended, guarding, mass, organolmegaly, rebound, tenderness Rectal exam: PRESENT: deferred Extremities exam: PRESENT: full ROM. ABSENT: calf tenderness, clubbing, pedal edema Neurological exam: PRESENT: alert, awake, oriented to person, oriented to place , oriented to time, oriented to situation, CN II-XII grossly intact. ABSENT: motor sensory deficit Psychiatric exam: PRESENT: appropriate affect, normal mood. ABSENT: homicidal ideation, suicidal ideation Skin exam: PRESENT: dry, intact, warm. ABSENT: cyanosis, rash Results Laboratory Results: 04/12/17 04:35 04/14/17 11:25 04/13/17 04/14/17 22:10 11:25 Sodium 137.2 140.2 Potassium 3.0 L* 3.7 Chloride 116 H 112 H Carbon Dioxide 16 L 22 Anion Gap 5 6 BUN 10 10 Creatinine 0.58 0.64 Est GFR ( Amer) > 60 > 60 Est GFR (Non-Af Amer) > 60 > 60 Glucose 204 H 149 H Calcium 7.0 L* 8.4 Albumin 2.5 L 04/09/17 04/09/17 04/10/17 23:50 23:50 04:40 Creatine Kinase 196 H 165 CK-MB (CK-2) 5.32 H Troponin I < 0.012 04/10/17 04/10/17 04/10/17 04:40 11:37 11:37 Creatine Kinase 121 CK-MB (CK-2) 5.07 H 3.47 Troponin I 0.014 0.019 Impressions: Chest X-Ray 04/09/17 19:46 IMPRESSION: NO ACUTE RADIOGRAPHIC FINDING IN THE CHEST. Assessment & Plan - Diagnosis (1) Diabetic ketoacidosis Qualifiers: Diabetes mellitus type: type 1 Diabetes mellitus complication detail: without coma Qualified Code(s): E10.10 - Type 1 diabetes mellitus with ketoacidosis without coma Is this a current diagnosis for this admission?: Yes Plan: Resolved. Continue subcutaneous insulin and monitor. This insulin accordingly. Patient needs to be counseled on compliance. (2) Nausea & vomiting Is this a current diagnosis for this admission?: Yes Plan: There to gastroparesis. Patient started on Reglan. Patient states Phenergan helps better than Zofran. Explained to patient that he may have gastroparesis and would benefit from small frequent meals. Patient also will need gastric emptying study at some point. Explained to patient that he would have to be without narcotics and Reglan or antidiarrheals for 48-72 hours prior to the examination. Patient could have this done as outpatient however he probably will not. (3) Anemia Is this a current diagnosis for this admission?: Yes Plan: Possibly anemia of chronic disease. Continue to monitor. (4) Hyperkalemia Is this a current diagnosis for this admission?: Yes Plan: Secondary to DKA now resolved. (5) Leukocytosis Qualifiers: Leukocytosis type: unspecified Qualified Code(s): D72.829 - Elevated white blood cell count, unspecified Plan: Reactive secondary to DKA now resolved. Patient has no clear clear signs of infection. (6) Noncompliance Is this a current diagnosis for this admission?: Yes Plan: Patient needs to be educated on compliance. (7) Tobacco dependency Is this a current diagnosis for this admission?: Yes Plan: Patient counseled on smoking cessation. Nicotine patch in place. - Time Time Spent with patient: Less than 15 minutes Anticipated discharge: Home - Inpatient Certification Medical Necessity: Significant Comorbidiites Make Outpatient Treatment Too Risky , Need Close Monitoring Due to Risk of Patient Decompensation, Need for Pain Control
--- NOTE | 2017-04-16 23:52 | PDOC PROGRESS REPORT ---
Subjective Progress Note for:: 04/15/17 Subjective:: Patient admitted for DKA along with nausea and vomiting. Patient reports having dark stools when he was first admitted. Patient states his stools are no longer dark. Patient did have a drop in his hemoglobin. Reason For Visit: DKA HYPERKALEMIA Physical Exam Vital Signs: Temp Pulse Resp BP Pulse Ox 98.5 F 104 H 19 137/91 H 100 04/15/17 18:24 04/15/17 18:24 04/15/17 18:24 04/15/17 18:24 04/15/17 18:24 Intake & Output 04/14/17 04/15/17 04/16/17 06:59 06:59 06:59 Intake Total 3649 2152 1134 Balance 3649 2152 1134 Weight 70.6 kg 67 kg General appearance: PRESENT: no acute distress, thin Head exam: PRESENT: atraumatic, normocephalic Eye exam: PRESENT: conjunctiva pink, EOMI, PERRLA. ABSENT: scleral icterus Ear exam: PRESENT: normal external ear exam Mouth exam: PRESENT: moist, tongue midline Neck exam: ABSENT: carotid bruit, JVD, lymphadenopathy, thyromegaly Respiratory exam: PRESENT: clear to auscultation alfonso. ABSENT: rales, rhonchi, wheezes Cardiovascular exam: PRESENT: RRR. ABSENT: diastolic murmur, rubs, systolic murmur Pulses: PRESENT: normal dorsalis pedis pul Vascular exam: PRESENT: normal capillary refill GI/Abdominal exam: PRESENT: normal bowel sounds, soft. ABSENT: distended, guarding, mass, organolmegaly, rebound, tenderness Rectal exam: PRESENT: deferred Extremities exam: PRESENT: full ROM. ABSENT: calf tenderness, clubbing, pedal edema Neurological exam: PRESENT: alert, awake, oriented to person, oriented to place , oriented to time, oriented to situation, CN II-XII grossly intact. ABSENT: motor sensory deficit Psychiatric exam: PRESENT: appropriate affect, normal mood. ABSENT: homicidal ideation, suicidal ideation Skin exam: PRESENT: dry, intact, warm. ABSENT: cyanosis, rash Results Laboratory Results: 04/15/17 20:20 04/15/17 04:45 04/15/17 04/15/17 04/15/17 04:45 04:45 07:43 WBC 7.0 RBC 2.84 L Hgb 7.2 L Hct 22.1 L MCV 78 L MCH 25.4 L MCHC 32.6 RDW 18.4 H Plt Count 263 Seg Neutrophils % 67.5 Lymphocytes % 21.0 Monocytes % 8.9 Eosinophils % 1.9 Basophils % 0.7 Absolute Neutrophils 4.7 Absolute Lymphocytes 1.5 Absolute Monocytes 0.6 Absolute Eosinophils 0.1 Absolute Basophils 0.0 Sodium 139.1 Potassium 4.0 Chloride 112 H Carbon Dioxide 21 L Anion Gap 6 BUN 13 Creatinine 0.77 Est GFR ( Amer) > 60 Est GFR (Non-Af Amer) > 60 Glucose 172 H Calcium 8.1 L Stool Occult Blood NEGATIVE Blood Type Antibody Screen 04/15/17 04/15/17 10:57 20:20 WBC 8.2 RBC 3.28 L Hgb 8.4 L Hct 26.0 L MCV 79 L MCH 25.6 L MCHC 32.3 RDW 18.3 H Plt Count 323 Seg Neutrophils % Lymphocytes % Monocytes % Eosinophils % Basophils % Absolute Neutrophils Absolute Lymphocytes Absolute Monocytes Absolute Eosinophils Absolute Basophils Sodium Potassium Chloride Carbon Dioxide Anion Gap BUN Creatinine Est GFR ( Amer) Est GFR (Non-Af Amer) Glucose Calcium Stool Occult Blood Blood Type A POSITIVE Antibody Screen NEGATIVE 04/09/17 04/09/17 04/10/17 23:50 23:50 04:40 Creatine Kinase 196 H 165 CK-MB (CK-2) 5.32 H Troponin I < 0.012 04/10/17 04/10/17 04/10/17 04:40 11:37 11:37 Creatine Kinase 121 CK-MB (CK-2) 5.07 H 3.47 Troponin I 0.014 0.019 Impressions: Chest X-Ray 04/09/17 19:46 IMPRESSION: NO ACUTE RADIOGRAPHIC FINDING IN THE CHEST. Assessment & Plan - Diagnosis (1) Acute blood loss anemia Is this a current diagnosis for this admission?: Yes Plan: Likely GI in nature. Patient reported dark stools however did not mention until he was asked that he was having dark stools. Patient is no longer having dark stools. Patient had a drop in hemoglobin from 11.8-7.2. Patient was transfused a unit and trended up to 8.4. Patient with a known history of gastritis and esophagitis. Start Protonix IV twice daily. Will start patient on supplemental iron. Will monitor hemoglobin. (2) Diabetic ketoacidosis Qualifiers: Diabetes mellitus type: type 1 Diabetes mellitus complication detail: without coma Qualified Code(s): E10.10 - Type 1 diabetes mellitus with ketoacidosis without coma Is this a current diagnosis for this admission?: Yes Plan: Resolved. Continue subcutaneous insulin and monitor. This insulin accordingly. Patient needs to be counseled on compliance. (3) Nausea & vomiting Is this a current diagnosis for this admission?: Yes Plan: There to gastroparesis. Patient started on Reglan. Patient states Phenergan helps better than Zofran. Explained to patient that he may have gastroparesis and would benefit from small frequent meals. Patient also will need gastric emptying study at some point. Explained to patient that he would have to be without narcotics and Reglan or antidiarrheals for 48-72 hours prior to the examination. Patient could have this done as outpatient however he probably will not. (4) Anemia Is this a current diagnosis for this admission?: Yes Plan: Possibly anemia of chronic disease. Patient did require 1 unit of packed RBCs on 04/15/2017. Continue to monitor. (5) Hyperkalemia Is this a current diagnosis for this admission?: Yes Plan: Secondary to DKA now resolved. (6) Leukocytosis Qualifiers: Leukocytosis type: unspecified Qualified Code(s): D72.829 - Elevated white blood cell count, unspecified Plan: Reactive secondary to DKA now resolved. Patient has no clear clear signs of infection. (7) Noncompliance Is this a current diagnosis for this admission?: Yes Plan: Patient needs to be educated on compliance. (8) Tobacco dependency Is this a current diagnosis for this admission?: Yes Plan: Patient counseled on smoking cessation. Nicotine patch in place. (9) Diarrhea Qualifiers: Diarrhea type: unspecified type Qualified Code(s): R19.7 - Diarrhea, unspecified Is this a current diagnosis for this admission?: Yes Plan: C. difficile is negative. Patient started on Lomotil. Patient could be having diarrhea secondary to possible GI bleed. - Time Time Spent with patient: Less than 15 minutes Anticipated discharge: Home - Inpatient Certification Medical Necessity: Significant Comorbidiites Make Outpatient Treatment Too Risky , Need Close Monitoring Due to Risk of Patient Decompensation Post Hospital Care: Other - Monitoring hemoglobin status post transfusion for possible upper GI bleed.
[2017-04-16] MEDS ORDERED: RINGERS SOLUTION,LACTATED 1,000 ML IV PRN (23:54)
--- NOTE | 2017-04-17 | PDOC PROGRESS REPORT ---
Subjective Progress Note for:: 04/16/17 Subjective:: Patient admitted for DKA along with nausea and vomiting. He states he is no longer having diarrhea. Patient states nausea and vomiting is improved. Patient now reports feeling lightheaded and dizzy with ambulation. Reason For Visit: DKA HYPERKALEMIA Physical Exam Vital Signs: Temp Pulse Resp BP Pulse Ox 98.7 F 113 H 18 104/54 L 100 04/16/17 20:47 04/16/17 20:47 04/16/17 20:47 04/16/17 20:47 04/16/17 20:47 Intake & Output 04/15/17 04/16/17 04/17/17 06:59 06:59 06:59 Intake Total 2152 2454 977 Balance 2152 2454 977 Weight 67 kg 66.2 kg General appearance: PRESENT: no acute distress, thin Head exam: PRESENT: atraumatic, normocephalic Eye exam: PRESENT: conjunctiva pink, EOMI, PERRLA. ABSENT: scleral icterus Ear exam: PRESENT: normal external ear exam Mouth exam: PRESENT: moist, tongue midline Neck exam: ABSENT: carotid bruit, JVD, lymphadenopathy, thyromegaly Respiratory exam: PRESENT: clear to auscultation alfonso. ABSENT: rales, rhonchi, wheezes Cardiovascular exam: PRESENT: RRR. ABSENT: diastolic murmur, rubs, systolic murmur Pulses: PRESENT: normal dorsalis pedis pul Vascular exam: PRESENT: normal capillary refill GI/Abdominal exam: PRESENT: normal bowel sounds, soft. ABSENT: distended, guarding, mass, organolmegaly, rebound, tenderness Rectal exam: PRESENT: deferred Extremities exam: PRESENT: full ROM. ABSENT: calf tenderness, clubbing, pedal edema Neurological exam: PRESENT: alert, awake, oriented to person, oriented to place , oriented to time, oriented to situation, CN II-XII grossly intact. ABSENT: motor sensory deficit Psychiatric exam: PRESENT: appropriate affect, normal mood. ABSENT: homicidal ideation, suicidal ideation Skin exam: PRESENT: dry, intact, warm. ABSENT: cyanosis, rash Results Laboratory Results: 04/16/17 04:28 04/16/17 04:28 04/16/17 04/16/17 04:28 04:28 WBC 10.4 RBC 3.29 L Hgb 8.4 L Hct 25.9 L MCV 79 L MCH 25.7 L MCHC 32.5 RDW 18.3 H Plt Count 348 Seg Neutrophils % Not Reportable Lymphocytes % Not Reportable Monocytes % Not Reportable Eosinophils % Not Reportable Basophils % Not Reportable Absolute Neutrophils Not Reportable Absolute Lymphocytes Not Reportable Absolute Monocytes Not Reportable Absolute Eosinophils Not Reportable Absolute Basophils Not Reportable Sodium 141.0 Potassium 4.1 Chloride 110 H Carbon Dioxide 24 Anion Gap 7 BUN 25 H Creatinine 0.71 Est GFR ( Amer) > 60 Est GFR (Non-Af Amer) > 60 Glucose 88 Calcium 8.6 04/09/17 04/09/17 04/10/17 23:50 23:50 04:40 Creatine Kinase 196 H 165 CK-MB (CK-2) 5.32 H Troponin I < 0.012 04/10/17 04/10/17 04/10/17 04:40 11:37 11:37 Creatine Kinase 121 CK-MB (CK-2) 5.07 H 3.47 Troponin I 0.014 0.019 Impressions: Chest X-Ray 04/09/17 19:46 IMPRESSION: NO ACUTE RADIOGRAPHIC FINDING IN THE CHEST. Assessment & Plan - Diagnosis (1) Postural dizziness Is this a current diagnosis for this admission?: Yes Plan: Reports dizziness and unsteadiness with walking. Will check orthostatics. Will hydrate patient overnight. We will con consult PT OT. (2) Acute blood loss anemia Is this a current diagnosis for this admission?: Yes Plan: Patient reports melena secondary to upper GI bleed. Patient with no history of erosive esophagitis and gastritis. Patient transfuse 1 unit of packed RBCs on . Patient started on IV Protonix Carafate. Patient started on supplemental iron. Monitor hemoglobin and transfuse as needed. Patient was scoped in October 2016. Hemoglobin is stable at 8.4. (3) Diabetic ketoacidosis Qualifiers: Diabetes mellitus type: type 1 Diabetes mellitus complication detail: without coma Qualified Code(s): E10.10 - Type 1 diabetes mellitus with ketoacidosis without coma Is this a current diagnosis for this admission?: Yes Plan: Resolved. Continue subcutaneous insulin and monitor. This insulin accordingly. Patient needs to be counseled on compliance. (4) Nausea & vomiting Is this a current diagnosis for this admission?: Yes Plan: There to gastroparesis. Patient started on Reglan. Patient states Phenergan helps better than Zofran. Explained to patient that he may have gastroparesis and would benefit from small frequent meals. Patient also will need gastric emptying study at some point. Explained to patient that he would have to be without narcotics and Reglan or antidiarrheals for 48-72 hours prior to the examination. Patient could have this done as outpatient however he probably will not. (5) Anemia Is this a current diagnosis for this admission?: Yes Plan: Possibly anemia of chronic disease. Patient did require 1 unit of packed RBCs on 04/15/2017. Continue to monitor. (6) Diarrhea Qualifiers: Diarrhea type: unspecified type Qualified Code(s): R19.7 - Diarrhea, unspecified Is this a current diagnosis for this admission?: Yes Plan: Resolved. C. difficile negative. Patient started on as needed Lomotil. (7) Leukocytosis Qualifiers: Leukocytosis type: unspecified Qualified Code(s): D72.829 - Elevated white blood cell count, unspecified Plan: Reactive secondary to DKA now resolved. Patient has no clear clear signs of infection. (8) Noncompliance Is this a current diagnosis for this admission?: Yes Plan: Patient needs to be educated on compliance. (9) Tobacco dependency Is this a current diagnosis for this admission?: Yes Plan: Patient counseled on smoking cessation. Nicotine patch in place. - Time Time Spent with patient: Less than 15 minutes Anticipated discharge: Home Within: within 48 hours - Inpatient Certification Medical Necessity: Significant Comorbidiites Make Outpatient Treatment Too Risky - Monitor hemoglobin is stable or trending up patient could possibly be discharged home with outpatient gastric emptying study. Doubt that patient will be able to tolerate being off of narcotics, antidiarrheals, prokinetics while in the hospital or outside., Need Close Monitoring Due to Risk of Patient Decompensation Post Hospital Care: Other
[2017-04-17] MEDS ORDERED: INSULIN GLARGINE,HUM.REC.ANLOG 300 UNIT/3 ML INSULN.PEN SUBCUT ONE (01:00)
[2017-04-17] MEDS: PROMETHAZINE HCL INJ 25 MG/1 ML VIAL IV PRN ×3 (02:10→18:31)
[2017-04-17] MEDS: OXYCODONE HCL IR 5 MG TABLET PO PRN ×4 (02:10→19:55)
[2017-04-17] MEDS: INSULIN LISPRO 100 UNIT/ML 3 ML VIAL SUBCUT PRN ×3 (04:05→18:27)
[2017-04-17 06:51] LABS: ANION GAP 7 (5-19); BLOOD UREA NITROGEN 29 mg/dL (7-20); CALCIUM 9.3 mg/dL (8.4-10.2); CARBON DIOXIDE 21 mmol/L (22-30); CHLORIDE 109 mmol/L (98-107); GLUCOSE 132 mg/dL (75-110); POTASSIUM 4.9 mmol/L (3.6-5.0); SODIUM 137.4 mmol/L (137-145)
[2017-04-17 07:03] LABS: HEMATOCRIT 22.6 % (37.9-51.0); MEAN CORPUSCULAR HEMOGLOBIN 26.3 pg (27.0-33.4); MEAN CORPUSCULAR HGB CONC 33.1 g/dL (32.0-36.0); MEAN CORPUSCULAR VOLUME 79 fl (80-97); PLATELET COUNT 363 10^3/uL (150-450); RED BLOOD COUNT 2.85 10^6/uL (4.35-5.55); RED CELL DISTRIBUTION WIDTH 18.4 % (11.5-14.0); WHITE BLOOD COUNT 8.7 10^3/uL (4.0-10.5)
[2017-04-17 07:10] LABS: HEMOGLOBIN 7.5 g/dL (13.5-17.0)
[2017-04-17 07:24] LABS: ABSOLUTE LYMPHOCYTES# (MANUAL) 2.5 10^3/uL (0.5-4.7); ABSOLUTE MONOCYTES # (MANUAL) 0.9 10^3/uL (0.1-1.4); ABSOLUTE NEUTROPHILS# (MANUAL) 5.2 10^3/uL (1.7-8.2); BASOPHILS % (MANUAL) 0 % (0-2); EOSINOPHILS % (MANUAL) 1 % (0-6); LYMPHOCYTES % (MANUAL) 29 % (13-45); MONOCYTES % (MANUAL) 10 % (3-13); SEGMENTED NEUTROPHILS % (MAN) 60 % (42-78); TOTAL CELLS COUNTED 100
[2017-04-17 07:26] LABS: ANISOCYTOSIS 2+; HYPOCHROMASIA SLIGHT; POIKILOCYTOSIS 1+
[2017-04-17 07:27] LABS: BURR CELLS SLIGHT; TARGET CELLS SLIGHT
[2017-04-17 07:28] LABS: OVALOCYTES 2+; PLATELET COMMENT ADEQUATE; POLYCHROMASIA SLIGHT
[2017-04-17] MEDS ORDERED: SUCRALFATE 1 GM TABLET PO SCH (08:00)
[2017-04-17] MEDS ORDERED: RINGERS SOLUTION,LACTATED 1,000 ML IV PRN (08:11)
[2017-04-17] MEDS ORDERED: NORMAL SALINE 250 ML IV PRN (08:12)
[2017-04-17] MEDS ORDERED: RINGERS SOLUTION,LACTATED 1,000 ML IV ONE (09:30)
[2017-04-17] MEDS: METOCLOPRAMIDE HCL 10 MG TABLET PO SCH (09:35)
[2017-04-17] MEDS ORDERED: PANTOPRAZOLE SODIUM 40 MG VIAL IV SCH (10:00)
[2017-04-17] MEDS ORDERED: PANTOPRAZOLE SODIUM 80 MG in NORMAL SALINE 100 ML IV ONE (10:00)
[2017-04-17] MEDS ORDERED: FERROUS SULFATE 325 MG TABLET PO SCH (10:00)
[2017-04-17] MEDS: INSULIN GLARGINE,HUM.REC.ANLOG 300 UNIT/3 ML INSULN.PEN SUBCUT SCH (10:07)
[2017-04-17] MEDS: DOCUSATE SODIUM 100 MG CAPSULE PO SCH ×2 (10:19→18:26)
[2017-04-17] MEDS ORDERED: GLUCAGON,HUMAN RECOMB 1 MG INJ SUBCUT PRN (10:49)
[2017-04-17] MEDS ORDERED: DEXTROSE 50%-WATER 25 GM/50 ML DISP.SYRIN IV PRN ×2 (10:49)
[2017-04-17] MEDS ORDERED: DEXTROSE 40% GEL 15 GM TUBE PO PRN ×2 (10:49)
[2017-04-17] MEDS: NORMAL SALINE 100 ML with PANTOPRAZOLE SODIUM 80 MG IV PRN ×4 (12:24→21:16)
[2017-04-17] MEDS: NORMAL SALINE 250 ML IV PRN ×2 (12:24→16:32)
[2017-04-17 15:22] LABS: HEMATOCRIT 25.5 % (37.9-51.0); HEMOGLOBIN 8.4 g/dL (13.5-17.0); MEAN CORPUSCULAR HGB CONC 33.1 g/dL (32.0-36.0); MEAN CORPUSCULAR VOLUME 79 fl (80-97); PLATELET COUNT 389 10^3/uL (150-450); RED BLOOD COUNT 3.24 10^6/uL (4.35-5.55); RED CELL DISTRIBUTION WIDTH 17.9 % (11.5-14.0); WHITE BLOOD COUNT 10.5 10^3/uL (4.0-10.5)
--- NOTE | 2017-04-17 15:56 | PDOC CONSULTATION ---
Consultation Consult Date: 04/17/17 Consult reason:: GI bleed History of Present Illness Admission Date/PCP: 04/09/17 21:30 History of Present Illness: CHESTER MCKEON is a 37 year old male with past medical history of insulin dependent diabetes, drug and alcohol abuse, gastroparesis and recurrent admission for diabetic ketoacidosis. He presents with 2 days of poor p.o. intake secondary to abdominal pain and nausea, admitted noncompliance with medication or lifestyle. He is unable to fill insulin prescription. In the emergency room is found to have severe tachypnea, metabolic acidosis with a pH of 7.0, undetectable bicarbonate, hyperkalemia of 6 without peak T waves. He requires optimal vascular access, surgeon is consulted for central line for resuscitation, insulin, IV fluids and looks like repletion. Patient has had several episodes of hemoptysis, dark stools. History of gastritis and esophagitis. He underwent upper endoscopy [address] Bryson Jones. Patient is now getting blood transfusions. He has been mildly tachycardic and had transient hypotension earlier this morning. Past Medical History Cardiac Medical History: Reports: Hyperlipidema - On no medication for same., Hypertension - Taken off medication for same. Denies: Atrial Fibrillation, Congestive Heart Failure, Coronary Artery Disease, Myocardial Infarction, Pulmonary Embolism Pulmonary Medical History: Denies: Asthma, Chronic Obstructive Pulmonary Disease (COPD), Sleep Apnea Neurological Medical History: Denies: Seizures Endocrine Medical History: Reports: Diabetes Mellitus Type 1 Denies: Diabetes Mellitus Type 2, Hyperthyroidism, Hypothyroidism GI Medical History: Reports: Gastroesophageal Reflux Disease Denies: Cirrhosis, Hepatitis Musculoskeltal Medical History: Denies: Arthritis Psychiatric Medical History: Reports: Depression Hematology: Reports: Anemia - Chronic illnesses Past Surgical History Past Surgical History: Reports: Orthopedic Surgery - back Denies: Appendectomy, Cholecystectomy, Tonsillectomy Social History Smoking Status: Unknown if Ever Smoked Frequency of Alcohol Use: None Hx Recreational Drug Use: No Drugs: Cocaine, Marijuana Hx Prescription Drug Abuse: Yes - Advance Directive Resuscitation Status: Full Code Family History Family History: Reviewed & Not Pertinent, DM, Hyperlipidemia, Hypertension Parental Family History Reviewed: Yes Children Family History Reviewed: Yes Sibling(s) Family History Reviewed.: Yes Medication/Allergy Home Medications: Insulin Detemir [Levemir] 35 unit SQ BID 04/17/17 Insulin Regular, Human [Humulin R (Pyxis) Insulin 100 Unit/ml 3Ml] 0 unit SUBCUT .SLD SCALE 04/17/17 Allergies/Adverse Reactions: No Known Allergies Allergy (Verified 04/09/17 18:31) Review of Systems Eyes: ABSENT: visual disturbances Ears: ABSENT: hearing changes Gastrointestinal: PRESENT: other - She states she has had abdominal pain for months. Has a history of pancreatitis Physical Exam Vital Signs: Temp Pulse Resp BP Pulse Ox 97.8 F 102 H 18 125/77 100 04/17/17 15:31 04/17/17 15:31 04/17/17 15:31 04/17/17 15:31 04/17/17 15:31 Intake & Output 04/16/17 04/17/17 04/18/17 06:59 06:59 07:59 Intake Total 2454 1957 824 Balance 2454 1957 824 Weight 66.2 kg 67.2 kg General appearance: PRESENT: no acute distress Head exam: PRESENT: normocephalic Ear exam: PRESENT: normal external ear exam Neck exam: PRESENT: full ROM Cardiovascular exam: PRESENT: RRR, tachycardia GI/Abdominal exam: PRESENT: other - Tender, mild epigastric distention, abdomen soft otherwise. No umbilical hernia. Rectal exam: PRESENT: deferred Neurological exam: PRESENT: awake, oriented to person, oriented to place Psychiatric exam: PRESENT: anxious, appropriate affect Results Laboratory Results: 04/17/17 14:50 04/17/17 06:20 04/15/17 04/17/17 04/17/17 10:57 06:20 06:20 WBC 8.7 RBC 2.85 L Hgb 7.5 L Hct 22.6 L MCV 79 L MCH 26.3 L MCHC 33.1 RDW 18.4 H Plt Count 363 Seg Neutrophils % Not Reportable Lymphocytes % Not Reportable Monocytes % Not Reportable Eosinophils % Not Reportable Basophils % Not Reportable Absolute Neutrophils Not Reportable Absolute Lymphocytes Not Reportable Absolute Monocytes Not Reportable Absolute Eosinophils Not Reportable Absolute Basophils Not Reportable Sodium 137.4 Potassium 4.9 Chloride 109 H Carbon Dioxide 21 L Anion Gap 7 BUN 29 H Creatinine 0.68 Est GFR ( Amer) > 60 Est GFR (Non-Af Amer) > 60 Glucose 132 H Calcium 9.3 Magnesium 1.8 Blood Type A POSITIVE Antibody Screen NEGATIVE 04/17/17 14:50 WBC 10.5 RBC 3.24 L Hgb 8.4 L Hct 25.5 L MCV 79 L MCH 26.0 L MCHC 33.1 RDW 17.9 H Plt Count 389 Seg Neutrophils % Lymphocytes % Monocytes % Eosinophils % Basophils % Absolute Neutrophils Absolute Lymphocytes Absolute Monocytes Absolute Eosinophils Absolute Basophils Sodium Potassium Chloride Carbon Dioxide Anion Gap BUN Creatinine Est GFR ( Amer) Est GFR (Non-Af Amer) Glucose Calcium Magnesium Blood Type Antibody Screen 04/09/17 04/09/17 04/10/17 23:50 23:50 04:40 Creatine Kinase 196 H 165 CK-MB (CK-2) 5.32 H Troponin I < 0.012 04/10/17 04/10/17 04/10/17 04:40 11:37 11:37 Creatine Kinase 121 CK-MB (CK-2) 5.07 H 3.47 Troponin I 0.014 0.019 Impressions: Chest X-Ray 04/09/17 19:46 IMPRESSION: NO ACUTE RADIOGRAPHIC FINDING IN THE CHEST. Assessment & Plan - Diagnosis (1) Acute GI bleeding Is this a current diagnosis for this admission?: Yes Plan: Patient has recurrent GI bleeding likely from an upper worse; has history of esophagitis and gastritis, previous endoscopies patient now with blood loss anemia, getting transfused with mild endemic instability. Had breakfast this morning at 7:00 Recommendations: 1. We will set patient up for upper endoscopy, possible biopsy, possible afferent injection, fifth floor, conscious sedation, 1 hour; risks benefits and alternatives of planned procedure plan patient. 2. We will keep patient n.p.o. from midnight on IV fluids after blood transfused. 3. Agree with proton pump inhibitors; suggested holding p.o. narcotics to reduce precipitating bleeding gastritis; discussed above with primary care team - Time Time Spent: 50 to 70 Minutes Smoking Cessation Education: over 10 minutes Medications reviewed and adjusted accordingly: Yes Anticipated discharge: Home - Inpatient Certification Based on my medical assessment, after consideration of the patient's comorbidities, presenting symptoms, or acuity I expect that the services needed warrant INPATIENT care.: Yes I certify that my determination is in accordance with my understanding of Medicare's requirements for reasonable and necessary INPATIENT services [42 CFR 412.3e].: Yes Medical Necessity: Need For IV Fluids, Need for Surgery
[2017-04-17] MEDS: ONDANSETRON 4 MG TAB.RAPDIS PO PRN (16:31)
--- NOTE | 2017-04-17 17:30 | PDOC PROGRESS REPORT ---
Subjective Progress Note for:: 04/17/17 Subjective:: Patient has significant epigastric abdominal pain especially after eating. He reports several black tarry stools over the past 24 hours. He also reports some bright red blood and vomitus today. He does not think he has a history of esophageal varices though he does have a history of esophagitis and gastritis. He used to drink alcohol but quit in the last few years. He also tells me that he does not have a primary care doctor. We had a long discussion related to gastroparesis and the importance of small meals and and attention to good nutrition. No chest pain or difficulty breathing. He is able to walk around without dizziness. Reason For Visit: DKA HYPERKALEMIA Physical Exam Vital Signs: Temp Pulse Resp BP Pulse Ox 97.3 F 105 H 18 130/83 H 100 04/17/17 16:48 04/17/17 16:48 04/17/17 16:48 04/17/17 16:48 04/17/17 16:48 Intake & Output 04/16/17 04/17/17 04/18/17 06:59 06:59 07:59 Intake Total 2454 1957 824 Balance 2454 1957 824 Weight 66.2 kg 67.2 kg General appearance: PRESENT: no acute distress, cooperative, thin Head exam: PRESENT: atraumatic, normocephalic Eye exam: PRESENT: conjunctiva pale, EOMI Ear exam: PRESENT: normal external ear exam Mouth exam: PRESENT: moist Respiratory exam: PRESENT: clear to auscultation alfonso. ABSENT: rales, rhonchi, wheezes Cardiovascular exam: PRESENT: tachycardia. ABSENT: systolic murmur Pulses: PRESENT: normal radial pulses GI/Abdominal exam: PRESENT: guarding, normal bowel sounds, soft, tenderness. ABSENT: firm Rectal exam: PRESENT: deferred Extremities exam: PRESENT: pedal edema Musculoskeletal exam: PRESENT: ambulatory, normal inspection Neurological exam: PRESENT: alert, awake, oriented to person, oriented to place , oriented to situation, CN II-XII grossly intact Psychiatric exam: PRESENT: appropriate affect. ABSENT: anxious Skin exam: PRESENT: dry, intact, warm Results Laboratory Results: 04/17/17 14:50 04/17/17 06:20 04/15/17 04/17/17 04/17/17 10:57 06:20 06:20 WBC 8.7 RBC 2.85 L Hgb 7.5 L Hct 22.6 L MCV 79 L MCH 26.3 L MCHC 33.1 RDW 18.4 H Plt Count 363 Seg Neutrophils % Not Reportable Lymphocytes % Not Reportable Monocytes % Not Reportable Eosinophils % Not Reportable Basophils % Not Reportable Absolute Neutrophils Not Reportable Absolute Lymphocytes Not Reportable Absolute Monocytes Not Reportable Absolute Eosinophils Not Reportable Absolute Basophils Not Reportable Sodium 137.4 Potassium 4.9 Chloride 109 H Carbon Dioxide 21 L Anion Gap 7 BUN 29 H Creatinine 0.68 Est GFR ( Amer) > 60 Est GFR (Non-Af Amer) > 60 Glucose 132 H Calcium 9.3 Magnesium 1.8 Blood Type A POSITIVE Antibody Screen NEGATIVE 04/17/17 14:50 WBC 10.5 RBC 3.24 L Hgb 8.4 L Hct 25.5 L MCV 79 L MCH 26.0 L MCHC 33.1 RDW 17.9 H Plt Count 389 Seg Neutrophils % Lymphocytes % Monocytes % Eosinophils % Basophils % Absolute Neutrophils Absolute Lymphocytes Absolute Monocytes Absolute Eosinophils Absolute Basophils Sodium Potassium Chloride Carbon Dioxide Anion Gap BUN Creatinine Est GFR ( Amer) Est GFR (Non-Af Amer) Glucose Calcium Magnesium Blood Type Antibody Screen 04/09/17 04/09/17 04/10/17 23:50 23:50 04:40 Creatine Kinase 196 H 165 CK-MB (CK-2) 5.32 H Troponin I < 0.012 04/10/17 04/10/17 04/10/17 04:40 11:37 11:37 Creatine Kinase 121 CK-MB (CK-2) 5.07 H 3.47 Troponin I 0.014 0.019 Impressions: Chest X-Ray 04/09/17 19:46 IMPRESSION: NO ACUTE RADIOGRAPHIC FINDING IN THE CHEST. Assessment & Plan - Diagnosis (1) Upper GI bleed Is this a current diagnosis for this admission?: Yes Plan: Possibly related to recurrent esophagitis or gastritis. Patient has an acute blood loss anemia for which she is being transfused 2 units of blood right now. He has a report of melena and hematemesis. Slightly tachycardic and hypotensive. He is being fluid resuscitated and now hypotension has resolved. He is on a pantoprazole drip. I have consulted the surgeon who has seen him and is planning for an EGD tomorrow. Made n.p.o. at midnight. (2) Acute blood loss anemia Is this a current diagnosis for this admission?: Yes Plan: Possibly due to erosive esophagitis or gastritis. He is receiving 2 units of blood now. We will follow H&H every 6 hours. He has a central line in place for IV access. He is on IV fluids. (3) Nausea & vomiting Is this a current diagnosis for this admission?: Yes Plan: Probably related to diabetic gastroparesis. I have ordered 5 small meals a day versus 3 large meals. We will restart his Reglan postop. He will need a gastric emptying study. (4) Erosive esophagitis Is this a current diagnosis for this admission?: Yes Plan: Possibly recurrent. EGD tomorrow. (5) Gastroparesis Is this a current diagnosis for this admission?: Yes Plan: Related to poorly controlled diabetes. I had a long talk with the patient today about the importance of good nutrition and small meals. I have ordered 5 small meals a day. Will restart Reglan was stopped and also he will need a gastric emptying study. (6) IDDM (insulin dependent diabetes mellitus) Is this a current diagnosis for this admission?: Yes Plan: We will continue with current insulin plan. He was admitted with DKA and that is now resolved. Diabetic diet teaching performed by me today. (7) Tobacco dependency Is this a current diagnosis for this admission?: Yes Plan: Tobacco cessation counseling will be performed once patient is through this acute problem. - Time Time Spent with patient: 35 or more minutes Medications reviewed and adjusted accordingly: Yes - Inpatient Certification Based on my medical assessment, after consideration of the patient's comorbidities, presenting symptoms, or acuity I expect that the services needed warrant INPATIENT care.: Yes I certify that my determination is in accordance with my understanding of Medicare's requirements for reasonable and necessary INPATIENT services [42 CFR 412.3e].: Yes Medical Necessity: Significant Comorbidiites Make Outpatient Treatment Too Risky , Need Close Monitoring Due to Risk of Patient Decompensation, Need For IV Fluids, Risk of Complication if Not Cared For in Hospital
[2017-04-17 21:39] LABS: HEMATOCRIT 30.8 % (37.9-51.0); HEMOGLOBIN 9.9 g/dL (13.5-17.0); MEAN CORPUSCULAR HEMOGLOBIN 25.4 pg (27.0-33.4); MEAN CORPUSCULAR HGB CONC 32.2 g/dL (32.0-36.0); MEAN CORPUSCULAR VOLUME 79 fl (80-97); PLATELET COUNT 428 10^3/uL (150-450); RED CELL DISTRIBUTION WIDTH 17.2 % (11.5-14.0); WHITE BLOOD COUNT 13.2 10^3/uL (4.0-10.5)
[2017-04-17 22:03] LABS: ABSOLUTE MONOCYTES # (MANUAL) 1.6 10^3/uL (0.1-1.4); ABSOLUTE NEUTROPHILS# (MANUAL) 6.1 10^3/uL (1.7-8.2); BASOPHILS % (MANUAL) 0 % (0-2); EOSINOPHILS % (MANUAL) 4 % (0-6); LYMPHOCYTES % (MANUAL) 35 % (13-45); MONOCYTES % (MANUAL) 12 % (3-13); SEGMENTED NEUTROPHILS % (MAN) 46 % (42-78); TOTAL CELLS COUNTED 100
[2017-04-17 22:05] LABS: ANISOCYTOSIS 1+
[2017-04-17 22:07] LABS: OVALOCYTES SLIGHT; POIKILOCYTOSIS SLIGHT; POLYCHROMASIA SLIGHT
[2017-04-17 22:08] LABS: PLATELET COMMENT ADEQUATE; TARGET CELLS SLIGHT
[2017-04-18] MEDS: INSULIN GLARGINE,HUM.REC.ANLOG 300 UNIT/3 ML INSULN.PEN SUBCUT SCH ×2 (00:20→09:08)
[2017-04-18] MEDS: PROMETHAZINE HCL INJ 25 MG/1 ML VIAL IV PRN ×2 (03:17→11:30)
[2017-04-18] MEDS: OXYCODONE HCL IR 5 MG TABLET PO PRN ×3 (03:17→14:40)
[2017-04-18 04:38] LABS: ABSOLUTE BASOPHILS # (AUTO) 0.1 10^3/uL (0.0-0.2); ABSOLUTE EOSINOPHILS # (AUTO) 0.1 10^3/uL (0.0-0.6); ABSOLUTE LYMPHOCYTES (AUTO) 1.8 10^3/uL (0.5-4.7); ABSOLUTE MONOCYTES (AUTO) 1.1 10^3/uL (0.1-1.4); ABSOLUTE NEUT (AUTO) 6.3 10^3/uL (1.7-8.2); EOSINOPHILS % (AUTO) 0.7 % (0-6); HEMOGLOBIN 9.2 g/dL (13.5-17.0); LYMPHOCYTES % (AUTO) 19.5 % (13-45); MEAN CORPUSCULAR HEMOGLOBIN 25.8 pg (27.0-33.4); MEAN CORPUSCULAR HGB CONC 32.9 g/dL (32.0-36.0); MEAN CORPUSCULAR VOLUME 79 fl (80-97); MONOCYTES % (AUTO) 11.4 % (3-13); PLATELET COUNT 382 10^3/uL (150-450); RED BLOOD COUNT 3.56 10^6/uL (4.35-5.55); RED CELL DISTRIBUTION WIDTH 17.4 % (11.5-14.0); SEGMENTED NEUTROPHILS % (AUTO) 67.4 % (42-78); TOTAL CELLS COUNTED % (AUTO) 100 %; WHITE BLOOD COUNT 9.4 10^3/uL (4.0-10.5)
[2017-04-18] MEDS: NORMAL SALINE 100 ML with PANTOPRAZOLE SODIUM 80 MG IV PRN ×2 (09:05)
[2017-04-18] MEDS ORDERED: GLYCOPYRROLATE INJ 0.4 MG/2 ML VIAL ONE (09:06)
[2017-04-18] MEDS ORDERED: MIDAZOLAM 2 MG/2 ML INJ ONE (09:06)
[2017-04-18] MEDS ORDERED: ONDANSETRON HCL INJ/PF 4 MG/2 ML SDV ONE (09:06)
[2017-04-18] MEDS ORDERED: NALOXONE HCL INJ/PF 0.4 MG/1 ML SDV ONE (09:06)
[2017-04-18] MEDS ORDERED: FENTANYL CITRATE INJ/PF 100 MCG/2 ML AMPUL ONE (09:07)
[2017-04-18] MEDS ORDERED: GLUCAGON,HUMAN RECOMB 1 MG INJ ONE (09:07)
[2017-04-18] MEDS ORDERED: EPINEPHRINE INJ 1 MG/10 ML DISP.SYRIN ONE (09:07)
[2017-04-18] MEDS ORDERED: FLUMAZENIL INJ 0.5 MG/5 ML VIAL ONE (09:07)
[2017-04-18] MEDS: DOCUSATE SODIUM 100 MG CAPSULE PO SCH (09:08)
[2017-04-18] MEDS ORDERED: RINGERS SOLUTION,LACTATED 1,000 ML IV PRN ×3 (10:48→11:12)
--- NOTE | 2017-04-18 11:27 | Operative Report ---
Operative Report DATE OF SURGERY: 04/18/17 PREOPERATIVE DIAGNOSIS: Acute GI bleed; history of gastritis and esophagitis POSTOPERATIVE DIAGNOSIS: Same with erosive esophagitis and acute active bleeding from distal esophagus OPERATION: 1. Esophagogastroduodenoscopy. 2. Photo documentation SURGEON: FARHEEN PLUMMER ANESTHESIA: Moderate Sedation TISSUE REMOVED OR ALTERED: None COMPLICATIONS: None ESTIMATED BLOOD LOSS: 10 cc INTRAOPERATIVE FINDINGS: See below PROCEDURE: Patient was brought from third floor to the fifth floor endoscopy suite, monitoring devices attached to the appropriate level of IV conscious sedation induced. Patient was placed in the left lateral semirecumbent position Surgical plan surgical timeout were conducted The flexible adult upper endoscope was advanced through the hypopharynx, down the esophagus through the stomach and into the duodenum first and second portions. The patient was sufficiently sedated and tolerated the procedure well. The duodenum first and second portion were normal with bile. Scope was brought back to the pylorus. Pylorus is grossly normal. There was a moderate amount of fresh blood and clot in the area of the stomach. Clot and fresh blood removed, and inspection of the gastric antrum revealed no ulcers. The remainder of the stomach healed no ulcers or active bleeding however there was fresh blood coming down through the GE junction. It was retroflexed and there was a small hiatal hernia. The Z line was at approximately 37 cm from the incisor. The scope was straightened out and brought back to the GE junction. There was continuous oozing from the esophageal mucosa at approximately 30 cm from the incisor. Esophagus was diffusely inflamed with patches of new did pose a. Distal third of the esophagus had active bleeding with clot. The patient appeared to have grade 1 esophageal varix. The anatomic site of bleeding was the anterior left lateral side of the esophagus. Did not remove the fresh clot. Was evidence of distal esophagitis as well. There was no nba tumor, or true ulcer. The scope was withdrawn the patient's oropharynx. He tolerated procedure well. Heart rate 102 throughout the case. Findings immediately shared in person with primary care team, Dr. Block and I suggested the patient be transferred to a higher level of care with more resources including blood products, interventional radiology and interventional gastroenterology all of which not available at [facility].
[2017-04-18 12:03] LABS: HEMATOCRIT 30.3 % (37.9-51.0); MEAN CORPUSCULAR HEMOGLOBIN 25.7 pg (27.0-33.4); MEAN CORPUSCULAR HGB CONC 32.9 g/dL (32.0-36.0); MEAN CORPUSCULAR VOLUME 78 fl (80-97); PLATELET COUNT 453 10^3/uL (150-450); RED BLOOD COUNT 3.87 10^6/uL (4.35-5.55); RED CELL DISTRIBUTION WIDTH 17.4 % (11.5-14.0); WHITE BLOOD COUNT 8.3 10^3/uL (4.0-10.5)
[2017-04-18 12:21] LABS: INTERNATIONAL RATION (INR) 0.73; PARTIAL THROMBOPLASTIN TIME 27.5 SEC (23.5-35.8); PROTHROMBIN TIME 10.9 SEC (11.4-15.4)
[2017-04-18 13:04] VITALS: BP 121/79
--- NOTE | 2017-04-18 14:51 | PDOC DISCHARGE SUMMARY ---
General - Admit/Disc Date/PCP Admission Date/Primary Care Provider: 04/09/17 21:30 PCP is the local [facility] Discharge Date: 04/18/17 - Discharge Diagnosis (1) Upper GI bleed Is this a current diagnosis for this admission?: Yes Summary: Patient has a history of heavy alcohol use but not for many years. He does not think he has a diagnosis of esophageal varices or liver disease. He does have a history of erosive esophagitis and gastritis. He reported to me yesterday that he had a black tarry stool and that he had vomited some food with red blood in it. He at that time was a little bit hypotensive and slightly tachycardic. Given his history and his story I started him on the pantoprazole drip protocol with 80 mg bolus. He received a liter of LR and I started him on LR at 125 mL/h. I called the surgeon who scoped him this morning. He is found to have an actively bleeding vessel proximal to the GE junction. He is being transferred to [facility] for gastroenterology subspecialty care which we do not have here today. (2) Acute blood loss anemia Is this a current diagnosis for this admission?: Yes Summary: Secondary to upper GI bleed. Patient has received 2 units of packed red blood cells, yesterday. His hemoglobin is stable today. I checked just prior to transfer. He is actively bleeding though so his hemoglobin will drop again. Admitting physician is aware. (3) Nausea & vomiting Is this a current diagnosis for this admission?: Yes Summary: I will be multifactorial. Patient has poorly controlled diabetes and probably gastroparesis. He has never had a gastric emptying study though. He also is actively bleeding which can cause nausea and vomiting. Patient has been taking Zofran and Phenergan with fairly good effect. He needs definitive treatment care for both his upper GI bleed and his diabetic gastroparesis. (4) Gastroparesis Is this a current diagnosis for this admission?: Yes (5) IDDM (insulin dependent diabetes mellitus) Is this a current diagnosis for this admission?: Yes Summary: Patient was admitted for this hospitalization with diabetic ketoacidosis which is now resolved. His CBGs have been A bile. He has had difficulty keeping food down and has been on clear liquid liquids and recently n.p.o. He is on glargine and short acting insulin at home. His glargine dose was decreased during this hospitalization. Upon discharge he will need to be placed back on his regular diabetic regimen and he will need close follow-up care for his diabetes. He likely has a complication of gastroparesis and he will need a gastric emptying study. - Additional Information Resuscitation Status: Full Code Discharge Diet: Other (Comments) - NPO Discharge Activity: Bedrest Home Medications: Dextrose [Glutose 40% Gel 15 gm Tube] 15 gm PO PRN PRN tube 04/18/17 Dextrose [Glutose 40% Gel 15 gm Tube] 30 gm PO PRN PRN tube 04/18/17 Diphenhydramine HCl [Benadryl 25 mg Capsule] 25 mg PO Q6HP PRN capsule Glucagon,Human Recombinant [Glucagen Inj 1 mg Vial] 1 mg SUBCUT PRN PRN vial Insulin Lispro [Humalog Insulin (Lispro) 100 unit/mL] 0 - 12 unit SUBCUT ACHSP PRN unit 04/18/17 Ipratropium/Albuterol Sulfate [Duoneb 3 ml Ampul] 3 ml NEB RTQ6HP PRN vial.neb 04/18/17 Oxycodone HCl [Oxy-Ir 5 mg Tablet] 7.5 mg PO Q4HP PRN tablet 04/18/17 Promethazine HCl [Phenergan Inj 25 mg/1 ml Vial] 25 mg IV Q8HP PRN vial History of Present Illness Patient complains of: Initial complaint was nausea and vomiting with abdominal pain History of Present Illness: CHESTER MCKEON is a 37 year old male with past medical history of insulin dependent diabetes, drug and alcohol abuse history, gastroparesis and recurrent admission for diabetic ketoacidosis. He presents with 2 days of poor p.o. intake secondary to abdominal pain and nausea, admitted noncompliance with medication or lifestyle. He is unable to fill insulin prescription. In the emergency room is found to have severe tachypnea, metabolic acidosis with a pH of 7.0, undetectable bicarbonate, hyperkalemia of 6 without peak T waves. He requires optimal vascular access, surgeon is consulted for central line for resuscitation, insulin, IV fluids and looks like repletion. Hospital Course Hospital Course: This is a 37-year-old man who has a history of poorly controlled diabetes. He also has the problem of poverty which does not allow him to have access to consistent medical care. He is working and makes a little bit too much to qualify for Medicaid so his health insurance situation has been difficult. Is admitted to this hospital several days ago with diabetic ketoacidosis. He was critically ill. He resolved from that problem. As he was improving became clear that he was having significant continued epigastric pain. Of note lipase has been checked and is normal. He probably has diabetic gastroparesis and that was thought to be the cause of his pain. Has been receiving opioids which I have started to down titrate given the laxity of opioid use in the setting of diabetic gastroparesis. He has also been on Reglan. Unfortunately, yesterday he ported a black tarry stool and emesis with bright red blood within. Vitals were showing mild tachycardia and mild hypotension. I consulted the surgeon to perform EGD. Patient was started on a PPI drip after bolus. He was given a liter of LR and started on 125 mL of LR per hour. Vitals stabilized. He received 2 units of packed red blood cells and his hemoglobin increased appropriately. It is stable this morning. On EGD this morning the patient was found to have a bleeding in the distal esophagus. He is now being transferred to [facility] for definitive care with gastroenterology. He has been accepted by Dr. Sandoval. For about the past 2 hours the patient has been trying to find either enough money or a ride home from [facility]. He is anticipating that once he is discharged he will not have a way to get back to [place] which is where he lives. He is extremely concerned about this problem. He is so concerned about the problem that he almost refused to be transferred to [facility]. He has agreed. I have recommended that he talk with the human services case manager about assistance with getting back to [place]. He is also reaching out to multiple family members to see if they can help. Physical Exam Vital Signs: Temp Pulse Resp BP Pulse Ox 98.3 F 101 H 16 121/79 100 04/18/17 12:29 04/18/17 12:29 04/18/17 12:29 04/18/17 12:29 04/18/17 12:29 Intake & Output 04/17/17 04/18/17 04/19/17 05:59 06:59 06:59 Intake Total 400 Balance 400 Weight General appearance: PRESENT: morbidly obese, thin Head exam: PRESENT: atraumatic, normocephalic Eye exam: PRESENT: conjunctiva pink, EOMI Ear exam: PRESENT: normal external ear exam Mouth exam: PRESENT: neck supple, tongue midline Neck exam: PRESENT: other - Patient has a right IJ central line. It is without erythema exudate or tenderness. Prior to GI bleed my plan was to discontinue central line. Central line should be removed as soon as possible. Respiratory exam: PRESENT: clear to auscultation alfonso, unlabored. ABSENT: rales , rhonchi, wheezes Cardiovascular exam: PRESENT: tachycardia. ABSENT: systolic murmur Pulses: PRESENT: normal radial pulses GI/Abdominal exam: PRESENT: guarding, normal bowel sounds, soft, tenderness. ABSENT: distended, firm Extremities exam: ABSENT: pedal edema, tenderness Musculoskeletal exam: PRESENT: ambulatory, normal inspection Neurological exam: PRESENT: alert, awake, oriented to person, oriented to place , oriented to situation, CN II-XII grossly intact Psychiatric exam: PRESENT: anxious Skin exam: PRESENT: dry, warm Results Laboratory Results: 04/18/17 11:50 04/17/17 06:20 04/15/17 04/17/17 04/17/17 10:57 14:50 21:25 WBC 10.5 13.2 H RBC 3.24 L 3.90 L Hgb 8.4 L 9.9 L Hct 25.5 L 30.8 L MCV 79 L 79 L MCH 26.0 L 25.4 L MCHC 33.1 32.2 RDW 17.9 H 17.2 H Plt Count 389 428 Seg Neutrophils % Not Reportable Lymphocytes % Not Reportable Monocytes % Not Reportable Eosinophils % Not Reportable Basophils % Not Reportable Absolute Neutrophils Not Reportable Absolute Lymphocytes Not Reportable Absolute Monocytes Not Reportable Absolute Eosinophils Not Reportable Absolute Basophils Not Reportable Lipase Blood Type A POSITIVE Antibody Screen NEGATIVE 04/18/17 04/18/17 04/18/17 04:15 11:50 11:50 WBC 9.4 8.3 RBC 3.56 L 3.87 L Hgb 9.2 L 10.0 L Hct 28.0 L 30.3 L MCV 79 L 78 L MCH 25.8 L 25.7 L MCHC 32.9 32.9 RDW 17.4 H 17.4 H Plt Count 382 453 H Seg Neutrophils % 67.4 Lymphocytes % 19.5 Monocytes % 11.4 Eosinophils % 0.7 Basophils % 1.0 Absolute Neutrophils 6.3 Absolute Lymphocytes 1.8 Absolute Monocytes 1.1 Absolute Eosinophils 0.1 Absolute Basophils 0.1 Lipase 182.0 Blood Type Antibody Screen 04/09/17 04/09/17 04/10/17 23:50 23:50 04:40 Creatine Kinase 196 H 165 CK-MB (CK-2) 5.32 H Troponin I < 0.012 04/10/17 04/10/17 04/10/17 04:40 11:37 11:37 Creatine Kinase 121 CK-MB (CK-2) 5.07 H 3.47 Troponin I 0.014 0.019 Impressions: Chest X-Ray 04/09/17 19:46 IMPRESSION: NO ACUTE RADIOGRAPHIC FINDING IN THE CHEST. Qualifiers - * PATEINT BEING DISCHARGED WITH ANY OF THE FOLLOWING DIAGNOSIS?: No Plan Discharge Plan: Patient is being transferred to [facility] for definitive care for an actively bleeding vessel in the distal esophagus. He is currently hemodynamically stable and mentating normally. He has been accepted by Dr. Sandoval. Time Spent: Greater than 30 Minutes
== END 2017-04-18 15:05 | disposition short-term general hospital (02) | DRG 380 ==
LOC: ER 18:28 → EH 21:30 → ICU 04-10 01:33 → 3W 04-12 16:28 → ICU 04-12 16:31 → 3W 04-12 16:31
PROVIDERS: ADMIT Internal Medicine; ATTEND Internal Medicine
PROC: 02HV33Z Insertion of Infusion Device into Superior Vena Cava, Percutaneous Approach (ICD-10-PCS; principal; 2017-04-09)
PROC: 30233N1 Transfusion of Nonautologous Red Blood Cells into Peripheral Vein, Percutaneous Approach (ICD-10-PCS; 2017-04-15)
PROC: 30233N1 Transfusion of Nonautologous Red Blood Cells into Peripheral Vein, Percutaneous Approach (ICD-10-PCS; 2017-04-17)
PROC: 0DC68ZZ Extirpation of Matter from Stomach, Via Natural or Artificial Opening Endoscopic (ICD-10-PCS; 2017-04-18)
DX: K22.11 Ulcer of esophagus with bleeding (principal); E10.10 Type 1 diabetes mellitus with ketoacidosis without coma; D62 Acute posthemorrhagic anemia; I85.01 Esophageal varices with bleeding; E87.5 Hyperkalemia; K31.84 Gastroparesis; E10.43 Type 1 diabetes mellitus with diabetic autonomic (poly)neuropathy; K44.9 Diaphragmatic hernia without obstruction or gangrene; D72.829 Elevated white blood cell count, unspecified; F19.10 Other psychoactive substance abuse, uncomplicated; F10.11 Alcohol abuse, in remission; Y90.9 Presence of alcohol in blood, level not specified; Z79.4 Long term (current) use of insulin; Z91.19 Patient's noncompliance with other medical treatment and regimen; Z59.8 Other problems related to housing and economic circumstances
CPT/HCPCS: 36415; 36430; 43235; 71045; 80048; 80053; 80061; 80307; 81001; 82040; 82272; 82550; 82553; 82607; 82728; 82746; 82803; 82962; 83036; 83540; 83550; 83605; 83690; 83735; 84100; 84466; 84484; 85025; 85027; 85045; 85610; 85730; 86850; 86900; 86901; 86920; 87493; 93005; 93010; 99285; C1751; J0171; J0610; J1610; J1644; J1815; J2060; J2250; J2310; J2405; J2550; J3010; J3480; J3490; J7030; J7050; J7120; P9016; S0119; S0164

== ENCOUNTER 2017-04-23 08:38 | Inpatient (IN) | payer SELFPAY ==
--- NOTE | 2017-04-23 09:15 | ER Document Report ---
ED Blood Sugar Problem - General Chief Complaint: High Blood Sugar Stated Complaint: BLOOD SUGAR CONCERNS Time Seen by Provider: 04/23/17 09:11 Notes: The patient is a 37-year-old male, past medical history type 1 diabetes, pancreatitis, gastroparesis, presents with nausea, vomiting and elevated blood sugars at home since he was discharged from [facility] yesterday after admission for DKA and a GI bleed. He has not had any insulin since his discharge because the pharmacy "forgot to put it in the bag" and thinks that he is back in DKA. Patient denies fevers, hematemesis, diarrhea, constipation, rash, urinary symptoms or headache. TRAVEL OUTSIDE OF THE [place] IN LAST 30 DAYS: No - Related Data Allergies/Adverse Reactions: No Known Allergies Allergy (Verified 04/09/17 18:31) Past Medical History - General Information source: Patient - Social History Smoking Status: Unknown if Ever Smoked Family History: Reviewed & Not Pertinent, DM, Hyperlipidemia, Hypertension - Past Medical History Cardiac Medical History: Reports: Hx Hypercholesterolemia - On no medication for same., Hx Hypertension - Taken off medication for same. Denies: Hx Atrial Fibrillation, Hx Congestive Heart Failure, Hx Coronary Artery Disease, Hx Heart Attack, Hx Pulmonary Embolism Pulmonary Medical History: Denies: Hx Asthma, Hx COPD, Hx Sleep Apnea Neurological Medical History: Denies: Hx Seizures Endocrine Medical History: Reports: Hx Diabetes Mellitus Type 1. Denies: Hx Diabetes Mellitus Type 2, Hx Hyperthyroidism, Hx Hypothyroidism Renal/ Medical History: Denies: Hx Peritoneal Dialysis GI Medical History: Reports: Hx Gastroesophageal Reflux Disease, Hx Pancreatitis. Denies: Hx Cirrhosis, Hx Hepatitis Musculoskeltal Medical History: Denies Hx Arthritis Psychiatric Medical History: Reports: Hx Depression Infectious Medical History: Denies: Hx Hepatitis Past Surgical History: Reports: Hx Orthopedic Surgery - back. Denies: Hx Appendectomy, Hx Cholecystectomy, Hx Tonsillectomy - Immunizations Hx Diphtheria, Pertussis, Tetanus Vaccination: Yes Hx Pneumococcal Vaccination: 11/09/11 Review of Systems - Review of Systems Notes: REVIEW OF SYSTEMS: CONSTITUTIONAL: -fevers, -chills EENT: -eye pain, -difficulty swallowing, -nasal congestion CARDIOVASCULAR: -chest pain, -syncope. RESPIRATORY: -cough, -SOB GASTROINTESTINAL: +epigastric abdominal pain, +nausea, +vomiting, -diarrhea GENITOURINARY: -dysuria, -hematuria MUSCULOSKELETAL: -back pain, -neck pain SKIN: -rash or skin lesions. HEMATOLOGIC: -easy bruising or bleeding. LYMPHATIC: -swollen, enlarged glands. NEUROLOGICAL: -altered mental status or loss of consciousness, -headache, - neurologic symptoms PSYCHIATRIC: -anxiety, -depression. ALL OTHER SYSTEMS REVIEWED AND NEGATIVE. Physical Exam - Vital signs Vitals: Resp 16 04/23/17 09:24 - Notes Notes: PHYSICAL EXAMINATION: GENERAL: Uncomfortable. HEAD: Atraumatic, normocephalic. EYES: Pupils equal round and reactive to light, extraocular movements intact, sclera anicteric, conjunctiva are normal. ENT: nares patent, oropharynx clear without exudates. Moist mucous membranes. NECK: Normal range of motion, supple without lymphadenopathy LUNGS: Breath sounds clear to auscultation bilaterally and equal. No wheezes rales or rhonchi. HEART: Tachycardia, regular rhythm. ABDOMEN: Soft, mild epigastric tenderness, normoactive bowel sounds. No guarding, no rebound. No masses appreciated. EXTREMITIES: Normal range of motion, no pitting or edema. No cyanosis. NEUROLOGICAL: Cranial nerves grossly intact. Normal speech, normal gait. Normal sensory and motor exams. PSYCH: Normal mood, normal affect. SKIN: Warm, Dry, normal turgor, no rashes or lesions noted. Course - Re-evaluation Re-evalutation: Patient with hyperglycemia, most likely from medication noncompliance. His hyponatremia is pseudohyponatremia from the hyperglycemia and hyperkalemia will be fixed with the insulin drip. Patient is a normal anion gap, is not acidotic and has no ketones in his urine. His lipase is 500, which is lower than his prior episodes of pancreatitis. After Reglan and Haldol for his nausea and abdominal pain, he is feeling better. He requires admission for further evaluation and treatment of his hyperglycemia. 04/23/17 10:[address] Li (Hospitalist). Will admit patient as inpatient on insulin drip to telemetry for further evaluation and treatment. - Vital Signs Vital signs: Temp Pulse Resp BP Pulse Ox 97.9 F 106 H 15 128/76 H 98 04/23/17 09:32 04/23/17 09:32 04/23/17 09:32 04/23/17 09:32 04/23/17 09:32 - Laboratory Result Diagrams: 04/23/17 09:24 04/23/17 09:24 Laboratory results interpreted by me: 04/23/17 04/23/17 04/23/17 08:51 09:24 09:24 RBC 3.46 L Hgb 9.0 L Hct 32.0 L MCH 26.0 L MCHC 28.1 L RDW 19.3 H Seg Neuts % (Manual) 89 H Lymphocytes % (Manual) 6 L VBG pCO2 VBG HCO3 Sodium 119.3 L* Potassium 6.2 H* Chloride 93 L Carbon Dioxide 15 L BUN 25 H Glucose 1244 H* Hemoglobin A1c % AST 95 H ALT 76 H Alkaline Phosphatase 127 H Total Protein 5.6 L Albumin 3.2 L Lipase 554.5 H Urine Glucose (UA) >=500 H 04/23/17 04/23/17 09:24 09:50 RBC Hgb Hct MCH MCHC RDW Seg Neuts % (Manual) Lymphocytes % (Manual) VBG pCO2 29.8 L VBG HCO3 15.4 L Sodium Potassium Chloride Carbon Dioxide BUN Glucose Hemoglobin A1c % 11.4 H AST ALT Alkaline Phosphatase Total Protein Albumin Lipase Urine Glucose (UA) Discharge - Discharge Clinical Impression: Hyperglycemia due to type 1 diabetes mellitus Condition: Serious Disposition: ADMITTED INPATIENT Admitting Provider: Hospitalist - [facility] Admitted: Telemetry
[2017-04-23 09:34] LABS: APPEARANCE,URINE CLEAR; BILIRUBIN,URINE NEGATIVE (NEGATIVE); COLOR,URINE COLORLESS; GLUCOSE, URINE >=500 mg/dL (NEGATIVE); KETONES,URINE NEGATIVE (NEGATIVE); LEUKOCYTE ESTERASE,URINE NEGATIVE (NEGATIVE); NITRITE,URINE NEGATIVE (NEGATIVE); PROTEIN,URINE NEGATIVE (NEGATIVE); URINE SPECIFIC GRAVITY 1.023; UROBILINOGEN,URINE NEGATIVE mg/dL (<2.0)
[2017-04-23] MEDS ORDERED: HALOPERIDOL LACTATE INJ 5 MG/1 ML VIAL IV ONE (09:39)
[2017-04-23 09:40] LABS: MEAN CORPUSCULAR HGB CONC 28.1 g/dL (32.0-36.0); PLATELET COUNT 424 10^3/uL (150-450); RED BLOOD COUNT 3.46 10^6/uL (4.35-5.55); RED CELL DISTRIBUTION WIDTH 19.3 % (11.5-14.0); WHITE BLOOD COUNT 9.1 10^3/uL (4.0-10.5)
[2017-04-23 09:48] LABS: MEAN CORPUSCULAR VOLUME 93 fl (80-97)
[2017-04-23] MEDS: NORMAL SALINE 1000 ML 1,000 ML IV PRN ×2 (09:48→09:49)
[2017-04-23 09:58] LABS: ALANINE AMINOTRANSFERASE 76 U/L (21-72); ALBUMIN 3.2 g/dL (3.5-5.0); ALKALINE PHOSPHATASE 127 U/L (38-126); ASPARTATE AMINO TRANSFERASE 95 U/L (17-59); BILIRUBIN,DIRECT 0.2 mg/dL (0.0-0.4); BILIRUBIN,TOTAL 0.2 mg/dL (0.2-1.3); BLOOD UREA NITROGEN 25 mg/dL (7-20); CALCIUM 8.9 mg/dL (8.4-10.2); CARBON DIOXIDE 15 mmol/L (22-30); CHLORIDE 93 mmol/L (98-107); LIPASE 554.5 U/L (23-300); TOTAL PROTEIN 5.6 g/dL (6.3-8.2)
[2017-04-23 10:00] LABS: ANION GAP 11 (5-19)
[2017-04-23 10:03] LABS: VENOUS BLOOD BASE EXCESS -9.4 mmol/L; VENOUS BLOOD HCO3 15.4 mmol/L (20-32); VENOUS BLOOD PCO2 29.8 mmHg (35-63); VENOUS BLOOD PH 7.33 (7.30-7.42)
[2017-04-23 10:07] LABS: ABSOLUTE LYMPHOCYTES# (MANUAL) 0.5 10^3/uL (0.5-4.7); ABSOLUTE MONOCYTES # (MANUAL) 0.4 10^3/uL (0.1-1.4); ABSOLUTE NEUTROPHILS# (MANUAL) 8.1 10^3/uL (1.7-8.2); BASOPHILS % (MANUAL) 0 % (0-2); EOSINOPHILS % (MANUAL) 1 % (0-6); LYMPHOCYTES % (MANUAL) 6 % (13-45); MONOCYTES % (MANUAL) 4 % (3-13); SEGMENTED NEUTROPHILS % (MAN) 89 % (42-78); TOTAL CELLS COUNTED 100
[2017-04-23 10:09] LABS: ANISOCYTOSIS 2+; GLUCOSE 1244 mg/dL (75-110); PLATELET COMMENT ADEQUATE; POTASSIUM 6.2 mmol/L (3.6-5.0); SODIUM 119.3 mmol/L (137-145); TOXIC GRANULATION SLIGHT
[2017-04-23] MEDS ORDERED: INSULIN REG, HUMAN 100 UNIT/ML 3 ML VIAL (PYX) IV ONE (10:17)
[2017-04-23] MEDS ORDERED: METOCLOPRAMIDE HCL INJ/PF 10 MG/2 ML SDV IV ONE (10:30)
[2017-04-23 11:28] LABS: URINE AMPHETAMINES SCREEN NEGATIVE; URINE BARBITURATES SCREEN NEGATIVE; URINE BENZODIAZEPINES SCREEN NEGATIVE; URINE COCAINE SCREEN NEGATIVE; URINE MARIJUANA (THC) SCREEN NEGATIVE; URINE METHADONE SCREEN NEGATIVE; URINE PHENCYCLIDINE SCREEN NEGATIVE
[2017-04-23] MEDS ORDERED: NORMAL SALINE 100 ML with INSULIN REGULAR, HUMAN 100 UNIT IV PRN ×2 (13:38)
[2017-04-23] MEDS ORDERED: IPRATROPIUM/ALBUTEROL 0.5-2.5 MG/3 ML AMPUL NEB PRN (13:38)
[2017-04-23] MEDS ORDERED: DEXTROSE 40% GEL 15 GM TUBE PO PRN ×2 (13:38)
[2017-04-23] MEDS ORDERED: DEXTROSE 50%-WATER 25 GM/50 ML DISP.SYRIN IV PRN ×2 (13:38)
[2017-04-23] MEDS ORDERED: ACETAMINOPHEN 325 MG TABLET PO PRN (13:38)
[2017-04-23] MEDS ORDERED: GUAIFENESIN 600 MG TABLET.SA PO PRN (13:38)
[2017-04-23] MEDS ORDERED: GLUCAGON,HUMAN RECOMB 1 MG INJ IM PRN (13:38)
[2017-04-23] MEDS ORDERED: NORMAL SALINE 1000 ML 1,000 ML IV PRN ×2 (13:38→20:04)
--- NOTE | 2017-04-23 14:03 | PDOC H&P ---
History of Present Illness Admission Date/PCP: 04/23/17 11:59 Patient complains of: Elevated Blood sugar History of Present Illness: CHESTER MCKEON is a 37-year-old gentleman presents to the emergency room with complaints of elevated blood sugar. He was just discharged from [facility] yesterday after being admitted with DKA and GI bleed. He has not taken any insulin since discharge. He complains of abdominal pain today. He denies any fever chest pain or difficulty breathing. He really was not too talkative or cooperative today. Past Medical History Cardiac Medical History: Reports: Hyperlipidema - On no medication for same., Hypertension - Taken off medication for same. Denies: Atrial Fibrillation, Congestive Heart Failure, Coronary Artery Disease, Myocardial Infarction, Pulmonary Embolism Pulmonary Medical History: Denies: Asthma, Chronic Obstructive Pulmonary Disease (COPD), Sleep Apnea Neurological Medical History: Denies: Seizures Endocrine Medical History: Reports: Diabetes Mellitus Type 1 Denies: Diabetes Mellitus Type 2, Hyperthyroidism, Hypothyroidism GI Medical History: Reports: Gastroesophageal Reflux Disease Denies: Cirrhosis, Hepatitis Musculoskeltal Medical History: Denies: Arthritis Psychiatric Medical History: Reports: Depression Hematology: Reports: Anemia - Chronic illnesses Past Surgical History Past Surgical History: Reports: Orthopedic Surgery - back Denies: Appendectomy, Cholecystectomy, Tonsillectomy Social History Information Source: Patient Lives with: Alone Smoking Status: Unknown if Ever Smoked Frequency of Alcohol Use: None Hx Recreational Drug Use: No Drugs: Cocaine, Marijuana Hx Prescription Drug Abuse: Yes - Advance Directive Resuscitation Status: Full Code Family History Family History: Reviewed & Not Pertinent, DM, Hyperlipidemia, Hypertension Parental Family History Reviewed: Yes Children Family History Reviewed: NA Sibling(s) Family History Reviewed.: NA Medication/Allergy Home Medications: No Home Medications 04/23/17 Allergies/Adverse Reactions: No Known Allergies Allergy (Verified 04/09/17 18:31) Review of Systems Constitutional: PRESENT: anorexia, weakness Eyes: ABSENT: visual disturbances Ears: ABSENT: hearing changes Cardiovascular: ABSENT: chest pain, dyspnea on exertion, edema, orthropnea, palpitations Respiratory: ABSENT: cough, hemoptysis Gastrointestinal: PRESENT: abdominal pain, nausea. ABSENT: hematemesis, melena Genitourinary: ABSENT: dysuria, hematuria Musculoskeletal: PRESENT: muscle weakness Neurological: ABSENT: abnormal gait, abnormal speech, confusion, dizziness, focal weakness, syncope Endocrine: PRESENT: polyuria Physical Exam Vital Signs: Temp Pulse Resp BP Pulse Ox 97.9 F 106 H 20 125/85 99 04/23/17 09:32 04/23/17 09:32 04/23/17 13:00 04/23/17 10:42 04/23/17 13:00 General appearance: PRESENT: no acute distress, thin Head exam: PRESENT: atraumatic Eye exam: PRESENT: conjunctiva pink, EOMI, PERRLA. ABSENT: scleral icterus Ear exam: PRESENT: normal external ear exam Mouth exam: PRESENT: dry mucosa Neck exam: ABSENT: carotid bruit, JVD, lymphadenopathy, thyromegaly Respiratory exam: PRESENT: clear to auscultation alfonso. ABSENT: rales, rhonchi, wheezes Cardiovascular exam: PRESENT: RRR. ABSENT: diastolic murmur, rubs, systolic murmur Pulses: PRESENT: normal dorsalis pedis pul GI/Abdominal exam: PRESENT: normal bowel sounds, soft. ABSENT: distended, guarding, mass, organolmegaly, rebound, tenderness Rectal exam: PRESENT: deferred Extremities exam: PRESENT: full ROM. ABSENT: calf tenderness, clubbing, pedal edema Neurological exam: PRESENT: alert, oriented to person, oriented to time, oriented to situation Psychiatric exam: PRESENT: appropriate affect, normal mood. ABSENT: homicidal ideation, suicidal ideation Results Laboratory Results: Laboratory 04/23/17 04/23/17 04/23/17 08:51 08:51 09:07 WBC RBC Hgb Hct MCV MCH MCHC RDW Plt Count Total Counted Seg Neutrophils % Seg Neuts % (Manual) Lymphocytes % Lymphocytes % (Manual) Monocytes % Monocytes % (Manual) Eosinophils % Eosinophils % (Manual) Basophils % Basophils % (Manual) Absolute Neutrophils Abs Neuts (Manual) Absolute Lymphocytes Abs Lymphs (Manual) Absolute Monocytes Abs Monocytes (Manual) Absolute Eosinophils Absolute Eos (Manual) Absolute Basophils Abs Basophils (Manual) Toxic Granulation Platelet Comment Anisocytosis VBG pH VBG pCO2 VBG HCO3 VBG Base Excess Sodium Potassium Chloride Carbon Dioxide Anion Gap BUN Creatinine Est GFR ( Amer) Est GFR (Non-Af Amer) Glucose POC Glucose > 550 H* Hemoglobin A1c % Calcium Total Bilirubin Direct Bilirubin Neonat Total Bilirubin Neonat Direct Bilirubin Neonat Indirect Bili AST ALT Alkaline Phosphatase Total Protein Albumin Lipase Urine Color COLORLESS Urine Appearance CLEAR Urine pH 5.0 Ur Specific [employer] 1.023 Urine Protein NEGATIVE Urine Glucose (UA) >=500 H Urine Ketones NEGATIVE Urine Blood NEGATIVE Urine Nitrite NEGATIVE Urine Bilirubin NEGATIVE Urine Urobilinogen NEGATIVE Ur Leukocyte Esterase NEGATIVE Urine WBC (Auto) 0 Urine RBC (Auto) 0 Urine Mucus (Auto) RARE Urine Ascorbic Acid NEGATIVE Urine Opiates Screen NEGATIVE Urine Methadone Screen NEGATIVE Ur Barbiturates Screen NEGATIVE Ur Phencyclidine Scrn NEGATIVE Ur Amphetamines Screen NEGATIVE U Benzodiazepines Scrn NEGATIVE Urine Cocaine Screen NEGATIVE U Marijuana (THC) Screen NEGATIVE 04/23/17 04/23/17 04/23/17 09:24 09:24 09:24 WBC 9.1 RBC 3.46 L Hgb 9.0 L Hct 32.0 L MCV 93 D MCH 26.0 L MCHC 28.1 L RDW 19.3 H Plt Count 424 Total Counted 100 Seg Neutrophils % Not Reportable Seg Neuts % (Manual) 89 H Lymphocytes % Not Reportable Lymphocytes % (Manual) 6 L Monocytes % Not Reportable Monocytes % (Manual) 4 Eosinophils % Not Reportable Eosinophils % (Manual) 1 Basophils % Not Reportable Basophils % (Manual) 0 Absolute Neutrophils Not Reportable Abs Neuts (Manual) 8.1 Absolute Lymphocytes Not Reportable Abs Lymphs (Manual) 0.5 Absolute Monocytes Not Reportable Abs Monocytes (Manual) 0.4 Absolute Eosinophils Not Reportable Absolute Eos (Manual) 0.1 Absolute Basophils Not Reportable Abs Basophils (Manual) 0.0 Toxic Granulation SLIGHT Platelet Comment ADEQUATE Anisocytosis 2+ VBG pH VBG pCO2 VBG HCO3 VBG Base Excess Sodium 119.3 L* Potassium 6.2 H* Chloride 93 L Carbon Dioxide 15 L Anion Gap 11 BUN 25 H Creatinine 0.90 Est GFR ( Amer) > 60 Est GFR (Non-Af Amer) > 60 Glucose 1244 H* POC Glucose Hemoglobin A1c % 11.4 H Calcium 8.9 Total Bilirubin 0.2 Direct Bilirubin 0.2 Neonat Total Bilirubin Not Reportable Neonat Direct Bilirubin Not Reportable Neonat Indirect Bili Not Reportable AST 95 H ALT 76 H Alkaline Phosphatase 127 H Total Protein 5.6 L Albumin 3.2 L Lipase 554.5 H Urine Color Urine Appearance Urine pH Ur Specific [employer] Mdl Urine Protein Urine Glucose (UA) Urine Ketones Urine Blood Urine Nitrite Urine Bilirubin Urine Urobilinogen Ur Leukocyte Esterase Urine WBC (Auto) Urine RBC (Auto) Urine Mucus (Auto) Urine Ascorbic Acid Urine Opiates Screen Urine Methadone Screen Ur Barbiturates Screen Ur Phencyclidine Scrn Ur Amphetamines Screen U Benzodiazepines Scrn Urine Cocaine Screen U Marijuana (THC) Screen 04/23/17 04/23/17 09:50 10:43 WBC RBC Hgb Hct MCV MCH MCHC RDW Plt Count Total Counted Seg Neutrophils % Seg Neuts % (Manual) Lymphocytes % Lymphocytes % (Manual) Monocytes % Monocytes % (Manual) Eosinophils % Eosinophils % (Manual) Basophils % Basophils % (Manual) Absolute Neutrophils Abs Neuts (Manual) Absolute Lymphocytes Abs Lymphs (Manual) Absolute Monocytes Abs Monocytes (Manual) Absolute Eosinophils Absolute Eos (Manual) Absolute Basophils Abs Basophils (Manual) Toxic Granulation Platelet Comment Anisocytosis VBG pH 7.33 VBG pCO2 29.8 L VBG HCO3 15.4 L VBG Base Excess -9.4 Sodium Potassium Chloride Carbon Dioxide Anion Gap BUN Creatinine Est GFR ( Amer) Est GFR (Non-Af Amer) Glucose POC Glucose > 550 H* Hemoglobin A1c % Calcium Total Bilirubin Direct Bilirubin Neonat Total Bilirubin Neonat Direct Bilirubin Neonat Indirect Bili AST ALT Alkaline Phosphatase Total Protein Albumin Lipase Urine Color Urine Appearance Urine pH Ur Specific [employer] Mdl Urine Protein Urine Glucose (UA) Urine Ketones Urine Blood Urine Nitrite Urine Bilirubin Urine Urobilinogen Ur Leukocyte Esterase Urine WBC (Auto) Urine RBC (Auto) Urine Mucus (Auto) Urine Ascorbic Acid Urine Opiates Screen Urine Methadone Screen Ur Barbiturates Screen Ur Phencyclidine Scrn Ur Amphetamines Screen U Benzodiazepines Scrn Urine Cocaine Screen U Marijuana (THC) Screen Assessment & Plan - Diagnosis (1) DKA, type 1 Qualifiers: Diabetes mellitus complication detail: without coma Is this a current diagnosis for this admission?: Yes Plan: Patient's acidosis is actually quite mild as a anion gap is less than 12. He is acidotic though and his pH is 7.3 patient is probably compensated. We will continue to monitor his acid-base status. (2) Diabetic ketoacidosis Qualifiers: Diabetes mellitus type: type 1 Diabetes mellitus complication detail: without coma Qualified Code(s): E10.10 - Type 1 diabetes mellitus with ketoacidosis without coma (3) Hyperkalemia Is this a current diagnosis for this admission?: Yes Plan: Secondary to sling deficiency. He is getting intravenous insulin as well as intravenous fluids and will repeat BMP to monitor. Patient will also be on telemetry monitoring. EKG shows no evidence of a acute changes (4) Metabolic acidosis Is this a current diagnosis for this admission?: Yes Plan: With a CO2 of 15. I expect this to improve with correction of his hyperglycemia (5) Noncompliance Is this a current diagnosis for this admission?: Yes Plan: Patient was just discharged from the hospital yesterday and he managed to come to another hospital within 24 hours in severe hyperglycemia and electrolyte abnormalities (6) Hyponatremia Is this a current diagnosis for this admission?: Yes Plan: This is secondary to his hyperglycemia. I expect this to resolve with correction of the hypoglycemia - Time Time Spent: 30 to 50 Minutes Critical Time spent with patient: Less than 15 minutes Medications reviewed and adjusted accordingly: Yes Anticipated discharge: Home Within: within 72 hours - Patient apparently was recently treated for GI bleed and so I will hold off on any prophylactic anticoagulant and place on SCDs for now - Inpatient Certification Based on my medical assessment, after consideration of the patient's comorbidities, presenting symptoms, or acuity I expect that the services needed warrant INPATIENT care.: Yes I certify that my determination is in accordance with my understanding of Medicare's requirements for reasonable and necessary INPATIENT services [42 CFR 412.3e].: Yes Medical Necessity: Significant Comorbidiites Make Outpatient Treatment Too Risky , Need For IV Fluids, Risk of Complication if Not Cared For in Hospital
[2017-04-23] MEDS ORDERED: ENOXAPARIN SODIUM INJ 40 MG/0.4 ML DISP.SYRIN SUBCUT ONE (15:00)
[2017-04-23] MEDS ORDERED: TRAMADOL HCL 50 MG TABLET PO PRN (15:16)
[2017-04-23 18:46] LABS: ANION GAP 9 (5-19); BLOOD UREA NITROGEN 19 mg/dL (7-20); CALCIUM 9.3 mg/dL (8.4-10.2); CARBON DIOXIDE 22 mmol/L (22-30); CHLORIDE 106 mmol/L (98-107); GLUCOSE 89 mg/dL (75-110); SODIUM 136.7 mmol/L (137-145)
[2017-04-23 19:06] LABS: POTASSIUM 4.3 mmol/L (3.6-5.0)
[2017-04-23] MEDS: FAMOTIDINE INJ/PF 20 MG/2 ML SDV IV SCH (21:06)
[2017-04-23] MEDS: INSULIN LISPRO 100 UNIT/ML 3 ML VIAL SUBCUT PRN (21:17)
[2017-04-24] MEDS: INSULIN LISPRO 100 UNIT/ML 3 ML VIAL SUBCUT PRN ×7 (00:53→21:31)
[2017-04-24 07:48] LABS: ANION GAP 9 (5-19); BLOOD UREA NITROGEN 15 mg/dL (7-20); CALCIUM 9.1 mg/dL (8.4-10.2); CARBON DIOXIDE 20 mmol/L (22-30); CHLORIDE 107 mmol/L (98-107); GLUCOSE 199 mg/dL (75-110); LIPASE 376.4 U/L (23-300); POTASSIUM 4.6 mmol/L (3.6-5.0); SODIUM 135.5 mmol/L (137-145)
[2017-04-24] MEDS: FAMOTIDINE INJ/PF 20 MG/2 ML SDV IV SCH ×2 (09:28→21:24)
[2017-04-24] MEDS ORDERED: ENOXAPARIN SODIUM INJ 40 MG/0.4 ML DISP.SYRIN SUBCUT SCH (10:00)
[2017-04-24] MEDS: ONDANSETRON HCL INJ/PF 4 MG/2 ML SDV IV PRN ×2 (12:33→21:24)
--- NOTE | 2017-04-24 13:56 | PDOC DISCHARGE SUMMARY ---
General - Admit/Disc Date/PCP Admission Date/Primary Care Provider: 04/23/17 11:59 Discharge Date: 04/24/17 - Discharge Diagnosis (1) DKA, type 1 Is this a current diagnosis for this admission?: Yes (3) Hyperkalemia Is this a current diagnosis for this admission?: Yes (4) Metabolic acidosis Is this a current diagnosis for this admission?: Yes (5) Noncompliance Is this a current diagnosis for this admission?: Yes (6) Hyponatremia Is this a current diagnosis for this admission?: Yes - Additional Information Resuscitation Status: Full Code Discharge Diet: Diabetic Discharge Activity: Activity As Tolerated Prescriptions: Oxycodone HCl/Acetaminophen [Oxycodone-Acetaminophen 10-325] 1 each PO Q6HP PRN #10 tablet PRN Reason: Pain Home Medications: Insulin Detemir [Levemir Insulin 100 units/mL] 18 unit SUBCUT Q12 insuln.pen Insulin Lispro [Humalog Insulin (Lispro) 100 unit/mL] 0 - 12 unit SUBCUT Q4HP PRN unit 04/24/17 Insulin Lispro [Humalog Insulin (Lispro) 100 unit/mL] 4 unit SUBCUT AC unit Oxycodone HCl/Acetaminophen [Oxycodone-Acetaminophen 10-325] 1 each PO Q6HP PRN #10 tablet 04/24/17 History of Present Illness Patient complains of: Admitted with nausea vomiting and elevated blood sugar History of Present Illness: CHESTER MCKEON is a 37-year-old gentleman presents to the emergency room with complaints of elevated blood sugar. He was just discharged from [facility] yesterday after being admitted with DKA and GI bleed. He has not taken any insulin since discharge. He complains of abdominal pain today. Hospital Course Hospital Course: Patient was aggressively resuscitated with IV fluids and received intravenous insulin. His blood sugar quickly corrected from 1244 to less than 200 within 12 hours. Hypokalemia corrected with insulin and with IV fluids. Patient appears to have recovered very quickly from this episode. He has been advised of the need to to ensure that his medications are taken as prescribed. At this point with his blood sugar being corrected and no further interventions been planned he has been discharged home Physical Exam Vital Signs: Temp Pulse Resp BP Pulse Ox 98.5 F 101 H 16 121/84 100 04/24/17 12:00 04/24/17 12:00 04/24/17 12:00 04/24/17 12:00 04/24/17 12:00 Intake & Output 04/23/17 04/24/17 04/25/17 06:59 06:59 06:59 Intake Total 1750 Balance 1750 Weight 63.3 kg General appearance: PRESENT: no acute distress, thin Head exam: PRESENT: atraumatic Ear exam: PRESENT: normal external ear exam Neck exam: ABSENT: carotid bruit, JVD, lymphadenopathy, thyromegaly Respiratory exam: PRESENT: clear to auscultation alfonso. ABSENT: rales, rhonchi, wheezes Cardiovascular exam: PRESENT: RRR. ABSENT: diastolic murmur, rubs, systolic murmur Pulses: PRESENT: normal dorsalis pedis pul GI/Abdominal exam: PRESENT: ascites Rectal exam: PRESENT: deferred Neurological exam: PRESENT: alert, awake, oriented to person, oriented to time, oriented to situation Psychiatric exam: PRESENT: appropriate affect, normal mood. ABSENT: homicidal ideation, suicidal ideation Results Laboratory Results: 04/24/17 06:27 04/23/17 04/24/17 17:56 06:27 Sodium 136.7 L 135.5 L Potassium 4.3 D 4.6 Chloride 106 107 Carbon Dioxide 22 20 L Anion Gap 9 9 BUN 19 15 Creatinine 0.71 0.79 Est GFR ( Amer) > 60 > 60 Est GFR (Non-Af Amer) > 60 > 60 Glucose 89 199 H Calcium 9.3 9.1 Lipase 376.4 H Qualifiers - * PATEINT BEING DISCHARGED WITH ANY OF THE FOLLOWING DIAGNOSIS?: No
[2017-04-24] MEDS ORDERED: INSULIN DETEMIR 100 UNIT/ML 3 ML PEN SUBCUT ONE (14:00)
[2017-04-24] MEDS: INSULIN LISPRO 100 UNIT/ML 3 ML VIAL SUBCUT SCH (17:39)
[2017-04-24] MEDS ORDERED: INSULIN LISPRO 100 UNIT/ML 3 ML VIAL SUBCUT ONE (18:30)
--- NOTE | 2017-04-24 18:37 | PDOC PROGRESS REPORT ---
Subjective Progress Note for:: 04/24/17 Subjective:: Patient admitted with severe DKA. He has improved overnight and his blood sugar was down to below 200. Patient was slated for discharge earlier today however his blood sugar started creeping up again to 400 and so patient is being kept overnight to ensure stablility prior to discharge. He has been started on Levemir and Humalog as per his discharge from [facility] Reason For Visit: DKA Physical Exam Vital Signs: Temp Pulse Resp BP Pulse Ox 98.8 F 106 H 16 122/50 L 100 04/24/17 16:00 04/24/17 16:00 04/24/17 16:00 04/24/17 16:00 04/24/17 16:00 Intake & Output 04/23/17 04/24/17 04/25/17 06:59 06:59 06:59 Intake Total 1750 Balance 1750 Weight 63.3 kg General appearance: PRESENT: no acute distress, thin Head exam: PRESENT: atraumatic Ear exam: PRESENT: normal external ear exam Respiratory exam: PRESENT: clear to auscultation alfonso. ABSENT: rales, rhonchi, wheezes Cardiovascular exam: PRESENT: RRR. ABSENT: diastolic murmur, rubs, systolic murmur GI/Abdominal exam: PRESENT: normal bowel sounds, soft. ABSENT: distended, guarding, mass, organolmegaly, rebound, tenderness Rectal exam: PRESENT: deferred Extremities exam: PRESENT: full ROM. ABSENT: calf tenderness, clubbing, pedal edema Musculoskeletal exam: PRESENT: ambulatory Neurological exam: PRESENT: alert, awake, oriented to person, oriented to place , oriented to time, oriented to situation, CN II-XII grossly intact. ABSENT: motor sensory deficit Psychiatric exam: PRESENT: appropriate affect, normal mood. ABSENT: homicidal ideation, suicidal ideation Skin exam: PRESENT: dry, intact, warm. ABSENT: cyanosis, rash Results Laboratory Results: 04/24/17 06:27 04/23/17 04/24/17 17:56 06:27 Sodium 136.7 L 135.5 L Potassium 4.3 D 4.6 Chloride 106 107 Carbon Dioxide 22 20 L Anion Gap 9 9 BUN 19 15 Creatinine 0.71 0.79 Est GFR ( Amer) > 60 > 60 Est GFR (Non-Af Amer) > 60 > 60 Glucose 89 199 H Calcium 9.3 9.1 Lipase 376.4 H Assessment & Plan - Diagnosis (1) DKA, type 1 Qualifiers: Diabetes mellitus complication detail: without coma Is this a current diagnosis for this admission?: Yes Plan: Resolved (2) Diabetic ketoacidosis Qualifiers: Diabetes mellitus type: type 1 Diabetes mellitus complication detail: without coma Qualified Code(s): E10.10 - Type 1 diabetes mellitus with ketoacidosis without coma (3) Hyperkalemia Is this a current diagnosis for this admission?: Yes (4) Metabolic acidosis Is this a current diagnosis for this admission?: Yes (5) Noncompliance Is this a current diagnosis for this admission?: Yes (6) Hyponatremia Is this a current diagnosis for this admission?: Yes - Time Time Spent with patient: 15-24 minutes Medications reviewed and adjusted accordingly: Yes Anticipated discharge: Home Within: within 24 hours - Plan Summary Plan Summary: DC home in am if blood sugar stable
[2017-04-24] MEDS: INSULIN DETEMIR 100 UNIT/ML 3 ML PEN SUBCUT SCH (21:31)
[2017-04-25 00:12] VITALS: BP 139/64
[2017-04-25] MEDS: INSULIN LISPRO 100 UNIT/ML 3 ML VIAL SUBCUT PRN ×4 (01:50→17:14)
[2017-04-25] MEDS: ONDANSETRON HCL INJ/PF 4 MG/2 ML SDV IV PRN ×3 (05:09→16:29)
[2017-04-25] MEDS: INSULIN LISPRO 100 UNIT/ML 3 ML VIAL SUBCUT SCH ×3 (07:55→16:34)
[2017-04-25] MEDS: FAMOTIDINE INJ/PF 20 MG/2 ML SDV IV SCH (09:25)
[2017-04-25] MEDS: INSULIN DETEMIR 100 UNIT/ML 3 ML PEN SUBCUT SCH (10:38)
[2017-04-25] MEDS ORDERED: INSULIN DETEMIR 100 UNIT/ML 3 ML PEN SUBCUT ONE ×2 (11:00→13:45)
--- NOTE | 2017-04-25 18:10 | PDOC PROGRESS REPORT ---
Subjective Progress Note for:: 04/25/17 Subjective:: Patient admitted with severe DKA. He has improved overnight and his blood sugar was down to below 200. Patient was slated for discharge earlier today however his blood sugar started creeping up again to 400 and so patient is being kept overnight to ensure stablility prior to discharge. He has been started on Levemir and Humalog as per his discharge from [facility] Reason For Visit: DKA Physical Exam Vital Signs: Temp Pulse Resp BP Pulse Ox 98.4 F 84 16 139/64 H 100 04/25/17 00:00 04/25/17 00:00 04/25/17 00:00 04/25/17 00:00 04/25/17 00:00 Intake & Output 04/24/17 04/25/17 04/26/17 06:59 06:59 06:59 Intake Total 1750 3415 Balance 1750 3415 Weight 63.3 kg 63.5 kg General appearance: PRESENT: thin Head exam: PRESENT: atraumatic Neck exam: ABSENT: carotid bruit, JVD, lymphadenopathy, thyromegaly GI/Abdominal exam: PRESENT: normal bowel sounds, soft. ABSENT: distended, guarding, mass, organolmegaly, rebound, tenderness Rectal exam: PRESENT: deferred Results Laboratory Results: 04/24/17 06:27 Assessment & Plan - Diagnosis (1) DKA, type 1 Qualifiers: Diabetes mellitus complication detail: without coma Qualified Code(s): E10.10 - Type 1 diabetes mellitus with ketoacidosis without coma Is this a current diagnosis for this admission?: Yes (2) Diabetic ketoacidosis Qualifiers: Diabetes mellitus type: type 1 Diabetes mellitus complication detail: without coma Qualified Code(s): E10.10 - Type 1 diabetes mellitus with ketoacidosis without coma (3) Hyperkalemia Is this a current diagnosis for this admission?: Yes (4) Metabolic acidosis Is this a current diagnosis for this admission?: Yes (5) Noncompliance Is this a current diagnosis for this admission?: Yes (6) Hyponatremia Is this a current diagnosis for this admission?: Yes - Time Time Spent with patient: 15-24 minutes Medications reviewed and adjusted accordingly: Yes Anticipated discharge: Home
== END 2017-04-25 18:05 | disposition home or self-care (01) | DRG 638 ==
LOC: ER 08:38 → EH 11:59 → 5 18:12
PROVIDERS: ADMIT Family Medicine; ATTEND Family Medicine
PROC: 3E0F73Z Introduction of Anti-inflammatory into Respiratory Tract, Via Natural or Artificial Opening (ICD-10-PCS; principal; 2017-04-23)
DX: E10.10 Type 1 diabetes mellitus with ketoacidosis without coma (principal); E87.1 Hypo-osmolality and hyponatremia; K31.84 Gastroparesis; E87.5 Hyperkalemia; E10.43 Type 1 diabetes mellitus with diabetic autonomic (poly)neuropathy; I10 Essential (primary) hypertension; K21.9 Gastro-esophageal reflux disease without esophagitis; F32.9 Major depressive disorder, single episode, unspecified; D63.8 Anemia in other chronic diseases classified elsewhere; E78.00 Pure hypercholesterolemia, unspecified; Z60.2 Problems related to living alone; Z91.14 Patient's other noncompliance with medication regimen; Z83.3 Family history of diabetes mellitus; Z82.49 Family history of ischemic heart disease and other diseases of the circulatory system
CPT/HCPCS: 36415; 80048; 80053; 80307; 81001; 82803; 82962; 83036; 83690; 85025; 96361; 96374; 96375; 99285; J1630; J1815; J2405; J2765; J3490; J7030; S0028

== ENCOUNTER 2017-04-30 07:22 | Emergency (ER) | payer SELFPAY ==
[2017-04-30] MEDS ORDERED: NORMAL SALINE 1000 ML 1,000 ML IV PRN (08:08)
[2017-04-30 08:30] LABS: ALANINE AMINOTRANSFERASE 53 U/L (21-72); ALBUMIN 3.2 g/dL (3.5-5.0); ALKALINE PHOSPHATASE 99 U/L (38-126); ANION GAP 10 (5-19); ASPARTATE AMINO TRANSFERASE 34 U/L (17-59); BLOOD UREA NITROGEN 18 mg/dL (7-20); CALCIUM 8.8 mg/dL (8.4-10.2); CARBON DIOXIDE 17 mmol/L (22-30); CHLORIDE 112 mmol/L (98-107); GLUCOSE 294 mg/dL (75-110); POTASSIUM 4.1 mmol/L (3.6-5.0); SODIUM 139.4 mmol/L (137-145); TOTAL PROTEIN 5.6 g/dL (6.3-8.2)
[2017-04-30 08:31] LABS: BILIRUBIN,TOTAL < 0.1 mg/dL (0.2-1.3)
[2017-04-30 08:32] LABS: ABSOLUTE BASOPHILS # (AUTO) 0.1 10^3/uL (0.0-0.2); ABSOLUTE EOSINOPHILS # (AUTO) 0.1 10^3/uL (0.0-0.6); ABSOLUTE LYMPHOCYTES (AUTO) 1.6 10^3/uL (0.5-4.7); ABSOLUTE MONOCYTES (AUTO) 0.7 10^3/uL (0.1-1.4); BASOPHILS % (AUTO) 1.4 % (0-2); EOSINOPHILS % (AUTO) 1.6 % (0-6); HEMATOCRIT 28.7 % (37.9-51.0); HEMOGLOBIN 9.1 g/dL (13.5-17.0); LYMPHOCYTES % (AUTO) 18.5 % (13-45); MEAN CORPUSCULAR HEMOGLOBIN 25.4 pg (27.0-33.4); MEAN CORPUSCULAR HGB CONC 31.6 g/dL (32.0-36.0); MONOCYTES % (AUTO) 8.7 % (3-13); PLATELET COUNT 386 10^3/uL (150-450); RED BLOOD COUNT 3.57 10^6/uL (4.35-5.55); RED CELL DISTRIBUTION WIDTH 17.9 % (11.5-14.0); SEGMENTED NEUTROPHILS % (AUTO) 69.8 % (42-78); TOTAL CELLS COUNTED % (AUTO) 100 %; WHITE BLOOD COUNT 8.5 10^3/uL (4.0-10.5)
[2017-04-30 08:39] LABS: MEAN CORPUSCULAR VOLUME 81 fl (80-97)
[2017-04-30 08:49] LABS: VENOUS BLOOD BASE EXCESS -6.7 mmol/L; VENOUS BLOOD HCO3 18.9 mmol/L (20-32); VENOUS BLOOD PCO2 37.6 mmHg (35-63); VENOUS BLOOD PH 7.32 (7.30-7.42)
[2017-04-30] MEDS ORDERED: HALOPERIDOL LACTATE INJ 5 MG/1 ML VIAL IM ONE (09:00)
--- NOTE | 2017-04-30 09:00 | ER Document Report ---
ED Blood Sugar Problem - General Chief Complaint: High Blood Sugar Stated Complaint: SUGAR PROBLEMS Time Seen by Provider: 04/30/17 08:07 Notes: Patient is a 37-year-old male, past medical history type I diabetic (poorly controlled), gastroparesis, presents with nausea and vomiting and feeling like he is in DKA again. At home, his Accu-Cheks were reading "HI". Patient has had repeated admissions and was just discharged a few days ago for DKA. He has his Levemir, but does not have his sliding scale Humalog. He denies hematemesis , fevers, urinary symptoms, rash, diarrhea, constipation, chest pain or shortness of breath. TRAVEL OUTSIDE OF THE [place] IN LAST 30 DAYS: No - Related Data Allergies/Adverse Reactions: No Known Allergies Allergy (Verified 04/30/17 07:23) Past Medical History - General Information source: Patient - Social History Smoking Status: Current Some Day Smoker Frequency of alcohol use: None Drug Abuse: Marijuana Family History: Reviewed & Not Pertinent, DM, Hyperlipidemia, Hypertension Patient has suicidal ideation: No Patient has homicidal ideation: No - Past Medical History Cardiac Medical History: Reports: Hx Hypercholesterolemia - On no medication for same., Hx Hypertension - Taken off medication for same. Denies: Hx Atrial Fibrillation, Hx Congestive Heart Failure, Hx Coronary Artery Disease, Hx Heart Attack, Hx Pulmonary Embolism Pulmonary Medical History: Denies: Hx Asthma, Hx COPD, Hx Sleep Apnea Neurological Medical History: Denies: Hx Seizures Endocrine Medical History: Reports: Hx Diabetes Mellitus Type 1. Denies: Hx Diabetes Mellitus Type 2, Hx Hyperthyroidism, Hx Hypothyroidism Renal/ Medical History: Denies: Hx Peritoneal Dialysis GI Medical History: Reports: Hx Gastroesophageal Reflux Disease, Hx Pancreatitis. Denies: Hx Cirrhosis, Hx Hepatitis Musculoskeltal Medical History: Denies Hx Arthritis Psychiatric Medical History: Reports: Hx Depression Infectious Medical History: Denies: Hx Hepatitis Past Surgical History: Reports: Hx Orthopedic Surgery - back. Denies: Hx Appendectomy, Hx Cholecystectomy, Hx Tonsillectomy - Immunizations Hx Diphtheria, Pertussis, Tetanus Vaccination: Yes Hx Pneumococcal Vaccination: 11/09/11 Review of Systems - Review of Systems Notes: REVIEW OF SYSTEMS: CONSTITUTIONAL: -fevers, -chills EENT: -eye pain, -difficulty swallowing, -nasal congestion CARDIOVASCULAR: -chest pain, -syncope. RESPIRATORY: -cough, -SOB GASTROINTESTINAL: -abdominal pain, +nausea, +vomiting, -diarrhea GENITOURINARY: -dysuria, -hematuria MUSCULOSKELETAL: -back pain, -neck pain SKIN: -rash or skin lesions. HEMATOLOGIC: -easy bruising or bleeding. LYMPHATIC: -swollen, enlarged glands. NEUROLOGICAL: -altered mental status or loss of consciousness, -headache, - neurologic symptoms PSYCHIATRIC: -anxiety, -depression. ALL OTHER SYSTEMS REVIEWED AND NEGATIVE. Physical Exam - Vital signs Vitals: Temp Pulse Resp BP Pulse Ox 98.3 F 105 H 18 114/79 99 04/30/17 07:26 04/30/17 07:26 04/30/17 07:04/30/17 07:04/30/17 07:26 - Notes Notes: PHYSICAL EXAMINATION: GENERAL: Well-appearing, well-nourished and in no acute distress. HEAD: Atraumatic, normocephalic. EYES: Pupils equal round and reactive to light, extraocular movements intact, sclera anicteric, conjunctiva are normal. ENT: nares patent, oropharynx clear without exudates. Moist mucous membranes. NECK: Normal range of motion, supple without lymphadenopathy LUNGS: Breath sounds clear to auscultation bilaterally and equal. No wheezes rales or rhonchi. HEART: Regular rate and rhythm without murmurs ABDOMEN: Soft, nontender, normoactive bowel sounds. No guarding, no rebound. No masses appreciated. EXTREMITIES: Normal range of motion, no pitting or edema. No cyanosis. NEUROLOGICAL: Cranial nerves grossly intact. Normal speech, normal gait. Normal sensory and motor exams. PSYCH: Normal mood, normal affect. SKIN: Warm, Dry, normal turgor, no rashes or lesions noted. Course - Re-evaluation Re-evalutation: Patient is not in DKA on blood work. He feels much better after IV fluids and Haldol for his nausea and abdominal pain. Provided him with a prescription for his sliding scale Humalog and told him that he must fill it at the pharmacy. Patient already has Zofran and Phenergan at home for any nausea or vomiting. Case management is also involved in this case due to multiple repeat visits and admissions. - Vital Signs Vital signs: Temp Pulse Resp BP Pulse Ox 98.3 F 105 H 11 L 106/87 H 100 04/30/17 07:26 04/30/17 07:26 04/30/17 10:00 04/30/17 09:01 04/30/17 10:00 - Laboratory Result Diagrams: 04/30/17 08:00 04/30/17 08:00 Laboratory results interpreted by me: 04/30/17 04/30/17 04/30/17 08:00 08:00 08:35 RBC 3.57 L Hgb 9.1 L Hct 28.7 L MCH 25.4 L MCHC 31.6 L RDW 17.9 H VBG HCO3 18.9 L Chloride 112 H Carbon Dioxide 17 L Glucose 294 H POC Glucose Total Bilirubin < 0.1 L Total Protein 5.6 L Albumin 3.2 L Urine Glucose (UA) Urine Blood 04/30/17 04/30/17 08:50 09:41 RBC Hgb Hct MCH MCHC RDW VBG HCO3 Chloride Carbon Dioxide Glucose POC Glucose 202 H Total Bilirubin Total Protein Albumin Urine Glucose (UA) >=500 H Urine Blood MODERATE H Discharge - Discharge Clinical Impression: Hyperglycemia Nausea and vomiting Qualifiers: Vomiting type: unspecified Vomiting Intractability: non-intractable Qualified Code(s): R11.2 - Nausea with vomiting, unspecified Condition: Stable Disposition: HOME, SELF-CARE Additional Instructions: HYPERGLYCEMIA (HIGH BLOOD SUGAR): You have an abnormally high blood sugar. Not all high blood sugar requires long-term treatment. High blood sugar can be due to medications, , or the stress of illness. (These cases are "borderline diabetes.") If the doctor feels your high blood sugar might resolve with time, you may not require treatment now. It's very important that you follow through, to see if the blood sugar returns to normal levels. Uncontrolled high blood sugar leads to early heart disease, strokes, nerve damage, eye damage, and kidney damage. Call the physician if there is faintness, excess sleepiness, or very rapid breathing. DIABETES: You have an abnormally high blood sugar, suspicious for diabetes. Not all high blood sugar requires long-term treatment. High blood sugar can be due to medications, , or the stress of illness. (These cases are "borderline diabetes.") If the doctor feels your high blood sugar might get better with time, you may not require treatment now. It's very important that you follow through. Uncontrolled high blood sugar leads to early heart disease, strokes, nerve damage, eye damage, and kidney damage. All diabetics should follow a diet designed to control the blood sugar. Overweight diabetics should exercise regularly and lose weight. If this is not sufficient to control the blood sugar, pills or insulin shots are necessary. Younger people who develop diabetes almost always require insulin daily. Home testing of blood sugars or urine sugar is required. Diabetic teaching is available to help you figure insulin doses and monitor the blood sugar. Call the physician if there is faintness, excess sleepiness, or very rapid breathing. If hypoglycemia (LOW blood sugar) develops, symptoms are shakiness, weakness, sweating, and confusion. In this case, you should eat or drink something with sugar at once. INSULIN: Insulin is a natural hormone that lowers blood sugar. Normal blood sugar prevents complications of diabetes. For most diabetics, insulin is the best way to treat the illness. Be sure you know how to measure the insulin correctly. Insulin is measured in "units." There are three types of insulin: N (NPH or long acting), R (regular or short acting), and L (Lente or very long acting). Be sure you are using the right amount of each type. Insulin must be injected into the fat. You can use the abdomen, upper arms , and thighs. Select a different injection site every time. Wipe the site with alcohol before injecting. When first starting insulin, some adjusting of the insulin dose is necessary. Keep a record of each insulin dose and time of injection, and of the blood sugar and the time you test it. Sometimes insulin can make the blood sugar too low. If you become dizzy, sweaty, shaky, or confused, you may be having a hypoglycemic episode. Immediately use juice or some other sweet food. Call the doctor if the symptoms don't go away. FOLLOW-UP CARE: If you have been referred to a physician for follow-up care, call the physician s office for an appointment as you were instructed or within the next two days. If you experience worsening or a significant change in your symptoms, notify the physician immediately or return to the Emergency Department at any time for re-evaluation. Prescriptions: Insulin Lispro [Humalog Insulin 100 Unit/1 ml 3 ml Vial] 0 unit SUBCUT .SLD SCALE #10 ml Referrals: [facility] [Outside] - Follow up as needed
[2017-04-30 09:12] LABS: APPEARANCE,URINE CLEAR; BILIRUBIN,URINE NEGATIVE (NEGATIVE); COLOR,URINE STRAW; GLUCOSE, URINE >=500 mg/dL (NEGATIVE); KETONES,URINE NEGATIVE (NEGATIVE); LEUKOCYTE ESTERASE,URINE NEGATIVE (NEGATIVE); NITRITE,URINE NEGATIVE (NEGATIVE); PROTEIN,URINE NEGATIVE (NEGATIVE); UROBILINOGEN,URINE NEGATIVE mg/dL (<2.0)
[2017-04-30 09:51] VITALS: BP 106/87
--- NOTE | 2017-04-30 22:15 | EKG REPORT ---
SEVERITY:- NORMAL ECG - SINUS RHYTHM : Confirmed by: Ruchi King 30-Apr-2017 22:14:10
== END 2017-04-30 10:30 | disposition home or self-care (01) ==
LOC: ER 07:22
DX: E10.65 Type 1 diabetes mellitus with hyperglycemia (principal); R11.2 Nausea with vomiting, unspecified; Z79.4 Long term (current) use of insulin; F17.200 Nicotine dependence, unspecified, uncomplicated
CPT/HCPCS: 93005; 99285; 96372; 96360; 36415; 82962; 85025; 80053; 81001; 82803; 93010; J1630; J7030

== ENCOUNTER 2017-05-06 10:54 | Emergency (ER) | payer SELFPAY ==
[2017-05-06] MEDS ORDERED: NORMAL SALINE 1000 ML 1,000 ML IV ONE ×2 (12:05→14:40)
[2017-05-06] MEDS ORDERED: ONDANSETRON HCL INJ/PF 4 MG/2 ML SDV IV ONE (12:06)
[2017-05-06] MEDS ORDERED: FAMOTIDINE INJ/PF 20 MG/2 ML SDV IV ONE (12:06)
--- NOTE | 2017-05-06 12:08 | ER Document Report ---
ED Medical Screen (RME) - General Chief Complaint: Abdominal Pain Stated Complaint: ABDOMINAL PAIN, CHEST PAIN, BLOOD SUGAR ISSUE Time Seen by Provider: 05/06/17 12:04 Notes: 37-year-old male history of diabetes type 1. History of frequent DKA. Here for nausea, vomiting, diarrhea and abdominal pain. States he ran out of his insulin. Has not been taking it. I have greeted and performed a rapid initial assessment of this patient. A comprehensive ED assessment and evaluation of the patient, analysis of test results and completion of the medical decision making process will be conducted by additional ED providers. TRAVEL OUTSIDE OF THE [place] IN LAST 30 DAYS: No - Related Data Allergies/Adverse Reactions: ondansetron [From Zofran (as hydrochloride)] Allergy (Verified 05/06/17 12:35) Past Medical History - Social History Chew tobacco use (# tins/day): No Frequency of alcohol use: None Drug Abuse: Marijuana - Past Medical History Cardiac Medical History: Reports: Hx Hypercholesterolemia - On no medication for same., Hx Hypertension - Taken off medication for same. Denies: Hx Atrial Fibrillation, Hx Congestive Heart Failure, Hx Coronary Artery Disease, Hx Heart Attack, Hx Pulmonary Embolism Pulmonary Medical History: Denies: Hx Asthma, Hx COPD, Hx Sleep Apnea Neurological Medical History: Denies: Hx Seizures Endocrine Medical History: Reports: Hx Diabetes Mellitus Type 1. Denies: Hx Diabetes Mellitus Type 2, Hx Hyperthyroidism, Hx Hypothyroidism Renal/ Medical History: Denies: Hx Peritoneal Dialysis GI Medical History: Reports: Hx Gastroesophageal Reflux Disease, Hx Pancreatitis. Denies: Hx Cirrhosis, Hx Hepatitis Musculoskeltal Medical History: Denies Hx Arthritis Psychiatric Medical History: Reports: Hx Depression Infectious Medical History: Denies: Hx Hepatitis Past Surgical History: Reports: Hx Orthopedic Surgery - back. Denies: Hx Appendectomy, Hx Cholecystectomy, Hx Tonsillectomy - Immunizations Hx Diphtheria, Pertussis, Tetanus Vaccination: Yes History of Influenza Vaccine for 11/2016 - 04/2017 Season: Refused Physical Exam - Vital signs Vitals: Temp Pulse Resp BP Pulse Ox 99.1 F 114 H 20 111/71 100 05/06/17 11:10 05/06/17 11:10 05/06/17 11:10 05/06/17 11:10 05/06/17 11:10 - General Notes: General: Alert no acute distress HEENT: Atraumatic, normocephalic, pupils equal round react to light and accommodation, extraocular muscles are intact, nose is non tender, posterior pharynx is without erythema or exudate. Tongue is unremarkable Heart: Heart with regular rate and rhythm, no murmurs, no rubs, no clicks Lungs: Lungs clear to auscultation bilaterally, no wheezes, rhonchi, rales Abdomen: Abdomen is soft, nontender, nondistended, normal bowel sounds Neuro: cranial nerves II through XII intact, reflexes intact, sensation intact, Extremities:Moving all extremities. Equal strength bilaterally in the upper lower extremities. No significant deformity Skin: No lesions. Skin intact Psych: Normal insight. Normal judgment Course - Vital Signs Vital signs: Temp Pulse Resp BP Pulse Ox 99.1 F 114 H 20 111/71 100 05/06/17 11:10 05/06/17 11:10 05/06/17 11:10 05/06/17 11:10 05/06/17 11:10 - Laboratory Result Diagrams: 05/06/17 12:29 05/06/17 12:29 Laboratory results interpreted by me: 05/06/17 12:29 RBC 4.08 L Hgb 10.4 L Hct 32.6 L MCH 25.4 L MCHC 31.8 L RDW 17.8 H
[2017-05-06] MEDS ORDERED: PROMETHAZINE HCL INJ 25 MG/1 ML VIAL IV ONE (12:36)
[2017-05-06 12:51] LABS: VENOUS BLOOD BASE EXCESS -4.4 mmol/L; VENOUS BLOOD HCO3 21.2 mmol/L (20-32); VENOUS BLOOD PCO2 40.6 mmHg (35-63); VENOUS BLOOD PH 7.34 (7.30-7.42)
[2017-05-06 12:52] LABS: ABSOLUTE BASOPHILS # (AUTO) 0.1 10^3/uL (0.0-0.2); ABSOLUTE EOSINOPHILS # (AUTO) 0.2 10^3/uL (0.0-0.6); ABSOLUTE LYMPHOCYTES (AUTO) 1.8 10^3/uL (0.5-4.7); ABSOLUTE MONOCYTES (AUTO) 0.6 10^3/uL (0.1-1.4); ABSOLUTE NEUT (AUTO) 4.7 10^3/uL (1.7-8.2); BASOPHILS % (AUTO) 1.2 % (0-2); EOSINOPHILS % (AUTO) 2.5 % (0-6); HEMATOCRIT 32.6 % (37.9-51.0); HEMOGLOBIN 10.4 g/dL (13.5-17.0); LYMPHOCYTES % (AUTO) 24.5 % (13-45); MEAN CORPUSCULAR HEMOGLOBIN 25.4 pg (27.0-33.4); MEAN CORPUSCULAR HGB CONC 31.8 g/dL (32.0-36.0); MEAN CORPUSCULAR VOLUME 80 fl (80-97); MONOCYTES % (AUTO) 8.3 % (3-13); PLATELET COUNT 436 10^3/uL (150-450); RED BLOOD COUNT 4.08 10^6/uL (4.35-5.55); RED CELL DISTRIBUTION WIDTH 17.8 % (11.5-14.0); SEGMENTED NEUTROPHILS % (AUTO) 63.5 % (42-78); TOTAL CELLS COUNTED % (AUTO) 100 %; WHITE BLOOD COUNT 7.5 10^3/uL (4.0-10.5)
--- NOTE | 2017-05-06 13:09 | EKG REPORT ---
SEVERITY:- OTHERWISE NORMAL ECG - SINUS TACHYCARDIA : Confirmed by: Juan Pablo Holm MD 06-May-2017 13:09:11
[2017-05-06 13:12] LABS: ALANINE AMINOTRANSFERASE 48 U/L (21-72); ALBUMIN 4.1 g/dL (3.5-5.0); ALKALINE PHOSPHATASE 144 U/L (38-126); ANION GAP 12 (5-19); ASPARTATE AMINO TRANSFERASE 24 U/L (17-59); BILIRUBIN,DIRECT 0.2 mg/dL (0.0-0.4); BILIRUBIN,TOTAL 0.4 mg/dL (0.2-1.3); BLOOD UREA NITROGEN 13 mg/dL (7-20); CALCIUM 9.9 mg/dL (8.4-10.2); CARBON DIOXIDE 22 mmol/L (22-30); CHLORIDE 100 mmol/L (98-107); LIPASE 408.6 U/L (23-300); POTASSIUM 4.4 mmol/L (3.6-5.0); SODIUM 133.7 mmol/L (137-145); TOTAL PROTEIN 6.8 g/dL (6.3-8.2)
[2017-05-06 13:24] LABS: GLUCOSE 419 mg/dL (75-110)
[2017-05-06] MEDS ORDERED: INSULIN REG, HUMAN 100 UNIT/ML 3 ML VIAL (PYX) SUBCUT ONE (14:07)
[2017-05-06 14:09] LABS: APPEARANCE,URINE CLEAR; BILIRUBIN,URINE NEGATIVE (NEGATIVE); COLOR,URINE STRAW; GLUCOSE, URINE 500 mg/dL (NEGATIVE); KETONES,URINE NEGATIVE (NEGATIVE); LEUKOCYTE ESTERASE,URINE NEGATIVE (NEGATIVE); NITRITE,URINE NEGATIVE (NEGATIVE); PROTEIN,URINE 100 mg/dL (NEGATIVE); URINE SPECIFIC GRAVITY 1.037; UROBILINOGEN,URINE NEGATIVE mg/dL (<2.0)
[2017-05-06 15:43] VITALS: BP 122/85
== END 2017-05-06 16:16 | disposition home or self-care (01) ==
LOC: ER 10:54
DX: K52.9 Noninfective gastroenteritis and colitis, unspecified (principal); E10.65 Type 1 diabetes mellitus with hyperglycemia; T38.3X6A Underdosing of insulin and oral hypoglycemic [antidiabetic] drugs, initial encounter; Z91.128 Patient's intentional underdosing of medication regimen for other reason; Z91.14 Patient's other noncompliance with medication regimen; I10 Essential (primary) hypertension; R11.2 Nausea with vomiting, unspecified; Z88.8 Allergy status to other drugs, medicaments and biological substances
CPT/HCPCS: 93005; 99284; 96361; 96374; 96375; 36415; 82962; 83690; 85025; 80053; 81001; 82803; 93010; J1815; J2550; J7030; S0028

== ENCOUNTER 2017-05-09 02:37 | Inpatient (IN) | payer SELFPAY ==
--- NOTE | 2017-05-09 03:57 | ER Document Report ---
ED General - General Time Seen by Provider: 05/09/17 03:57 Cannot obtain history due to: Altered mental status Notes: Patient is a 37 year old male with a past medical history of type 1 diabetes with a history of non-compliance, frequent admissions for DKA including 2 weeks ago, who presents after being found unconscious outside of his home. EMS was contacted, found his BGL to read high and transported him to the hospital. History is otherwise very limited secondary to patients lethargy at time of arrival. TRAVEL OUTSIDE OF THE [place] IN LAST 30 DAYS: No - Related Data Allergies/Adverse Reactions: ondansetron [From Zofran (as hydrochloride)] Allergy (Verified 05/06/17 12:35) Past Medical History - General Information source: Patient Cannot obtain history due to: Altered mental status - Social History Smoking Status: Never Smoker Frequency of alcohol use: None Drug Abuse: None Family History: Reviewed & Not Pertinent, DM, Hyperlipidemia, Hypertension - Past Medical History Cardiac Medical History: Reports: Hx Hypercholesterolemia - On no medication for same., Hx Hypertension - Taken off medication for same. Denies: Hx Atrial Fibrillation, Hx Congestive Heart Failure, Hx Coronary Artery Disease, Hx Heart Attack, Hx Pulmonary Embolism Pulmonary Medical History: Denies: Hx Asthma, Hx COPD, Hx Sleep Apnea Neurological Medical History: Denies: Hx Seizures Endocrine Medical History: Reports: Hx Diabetes Mellitus Type 1. Denies: Hx Diabetes Mellitus Type 2, Hx Hyperthyroidism, Hx Hypothyroidism Renal/ Medical History: Denies: Hx Peritoneal Dialysis GI Medical History: Reports: Hx Gastroesophageal Reflux Disease, Hx Pancreatitis. Denies: Hx Cirrhosis, Hx Hepatitis Musculoskeltal Medical History: Denies Hx Arthritis Psychiatric Medical History: Reports: Hx Depression Infectious Medical History: Denies: Hx Hepatitis Past Surgical History: Reports: Hx Orthopedic Surgery - back. Denies: Hx Appendectomy, Hx Cholecystectomy, Hx Tonsillectomy - Immunizations Hx Diphtheria, Pertussis, Tetanus Vaccination: Yes Hx Pneumococcal Vaccination: 11/09/11 Review of Systems - Review of Systems Notes: Constitutional: Negative for fever. HENT: Negative for sore throat. Eyes: Negative for visual changes. Cardiovascular: Negative for chest pain. Respiratory: Negative for shortness of breath. Gastrointestinal: Positive for abdominal pain nausea Genitourinary: Negative for dysuria. Musculoskeletal: Negative for back pain. Skin: Negative for rash. Neurological: Negative for headaches, weakness or numbness. 10 point ROS negative except as marked above and in HPI. Physical Exam - Vital signs Interpretation: Tachycardic, Other - Hypothermic Notes: PHYSICAL EXAMINATION: GENERAL: Lethargic, ill in appearance HEAD: Atraumatic, normocephalic. EYES: Pupils equal round and reactive to light, extraocular movements intact, sclera anicteric, conjunctiva are normal. ENT: nares patent, oropharynx clear without exudates. Dry mucous membranes. NECK: Normal range of motion, supple without lymphadenopathy LUNGS: Rapid deep breathing. No distress. HEART: Regular tachycardia without murmurs ABDOMEN: Soft, mild epigastric abdominal tenderness, normoactive bowel sounds. No guarding, no rebound. No masses appreciated. EXTREMITIES: Normal range of motion, no pitting or edema. No cyanosis. NEUROLOGICAL: No focal neurological deficits. Moves all extremities spontaneously and on command. PSYCH: Lethargic SKIN: Cool, poor skin turgor no rashes Course - Re-evaluation Re-evalutation: 05/09/17 03:59 0250- Patient arrives lethargic, mildly tachycardia, somewhat ill in appearance. Kussmals respirations noted on exam. Appears clinically dehydrated. 2 points of IV access established. Primary concern is for DKA in this context. Given patients lethargy and metabolic derangements, he is critically ill and will require frequent reassessments. Will obtain standard DKA labs, EKG, and will start 2L LR wide open. Holding on insulin and potassium infusion until I have labs. 0315- Patient is more awake now, somewhat combative. Continues to protect his airway without difficulty. Awaiting labs. Tachycardia is improving with fluids. Pressure is currently 123/85 0330- Core temp is 91 degrees F. Patient is being started on active rewarming with warm fluids and bare hugger. Remains hemodynamically improved and within acceptable limits. 0340- VBG shows ph at 6.9, sugar at over 700. Patient continues to protect his airway but is lethargic. 05/09/17 04:00 Insulin infusion has been started 0.14 U/kg/h. Patient is working through his third liter of IV fluids and 1/4 L of lactated Ringer's was started thereafter. Active rewarming ongoing. Patient continues to wake to voice and responds appropriate commands. No indication for intubation at this time. We have 3 points of IV access that are working quite well. No indication for central line placement at this time point. Will contact the hospitalist for admission - EKG Interpretation by Me Additional EKG results interpreted by me: 05/09/17 04:00 Normal sinus rhythm. Rate 94. No ST elevations or depressions. QTC is prolonged at 536. Critical Care Note - Critical Care Note Total time excluding time spent on procedures (mins): 45 Comments: Critical care time spent obtaining history from patient or surrogate, discussions with consultants, development of treatment plan with patient or surrogate, evaluation of patient's response to treatment, examination of patient , ordering and performing treatments and interventions, ordering and review of laboratory studies, re-evaluation of patient's condition, ordering and review of radiographic studies and review of old charts Discharge - Discharge Clinical Impression: Diabetic ketoacidosis Qualifiers: Diabetes mellitus type: type 1 Diabetes mellitus complication detail: without coma Qualified Code(s): E10.10 - Type 1 diabetes mellitus with ketoacidosis without coma Leukocytosis Qualifiers: Leukocytosis type: unspecified Qualified Code(s): D72.829 - Elevated white blood cell count, unspecified Hypothermia Qualifiers: Encounter type: initial encounter Qualified Code(s): T68.XXXA - Hypothermia, initial encounter Condition: Critical Disposition: ADMITTED INPATIENT Admitting Provider: [place] Hospitalist [facility] Unit Admitted: ICU
[2017-05-09] MEDS ORDERED: ACETAMINOPHEN 325 MG TABLET PO PRN (04:14)
[2017-05-09] MEDS ORDERED: DEXTROSE 40% GEL 15 GM TUBE PO PRN ×2 (04:14)
[2017-05-09] MEDS ORDERED: GLUCAGON,HUMAN RECOMB 1 MG INJ IM PRN (04:14)
[2017-05-09] MEDS ORDERED: DEXTROSE 50%-WATER 25 GM/50 ML DISP.SYRIN IV PRN ×2 (04:14)
[2017-05-09] MEDS ORDERED: MAG HYDROX/AL HYDROX/SIMETH SUSP 30 ML UDCUP PO PRN (04:14)
[2017-05-09 04:45] LABS: ABSOLUTE BASOPHILS # (AUTO) 0.1 10^3/uL (0.0-0.2); ABSOLUTE MONOCYTES (AUTO) 1.3 10^3/uL (0.1-1.4); ABSOLUTE NEUT (AUTO) 16.2 10^3/uL (1.7-8.2); BASOPHILS % (AUTO) 0.6 % (0-2); EOSINOPHILS % (AUTO) 0.1 % (0-6); HEMATOCRIT 35.8 % (37.9-51.0); HEMOGLOBIN 10.1 g/dL (13.5-17.0); LYMPHOCYTES % (AUTO) 5.6 % (13-45); MEAN CORPUSCULAR HEMOGLOBIN 24.6 pg (27.0-33.4); MEAN CORPUSCULAR HGB CONC 28.2 g/dL (32.0-36.0); MONOCYTES % (AUTO) 6.8 % (3-13); PLATELET COUNT 389 10^3/uL (150-450); RED BLOOD COUNT 4.11 10^6/uL (4.35-5.55); SEGMENTED NEUTROPHILS % (AUTO) 86.9 % (42-78); TOTAL CELLS COUNTED % (AUTO) 100 %
[2017-05-09 04:48] LABS: MEAN CORPUSCULAR VOLUME 87 fl (80-97)
[2017-05-09] MEDS: NORMAL SALINE 100 ML with INSULIN REGULAR, HUMAN 100 UNIT IV PRN ×4 (04:48→14:13)
[2017-05-09] MEDS: POTASSI CL 20 MEQ/D5-1/2NS 1L 1,000 ML IV PRN ×2 (04:52→12:34)
[2017-05-09 04:54] LABS: BLOOD UREA NITROGEN 31 mg/dL (7-20); CALCIUM 9.3 mg/dL (8.4-10.2); CHLORIDE 97 mmol/L (98-107); POTASSIUM 5.4 mmol/L (3.6-5.0); SODIUM 130.3 mmol/L (137-145)
[2017-05-09 04:57] LABS: CARBON DIOXIDE < 5 mmol/L (22-30); LIPASE 351.1 U/L (23-300); PHOSPHORUS 6.8 mg/dL (2.5-4.5)
[2017-05-09 04:58] LABS: GLUCOSE 793 mg/dL (75-110)
[2017-05-09 05:01] LABS: VENOUS BLOOD BASE EXCESS -26.9 mmol/L; VENOUS BLOOD HCO3 3.5 mmol/L (20-32)
[2017-05-09 05:02] LABS: WHITE BLOOD COUNT 18.6 10^3/uL (4.0-10.5)
[2017-05-09 05:02] LABS: VENOUS BLOOD PCO2 16.1 mmHg (35-63); VENOUS BLOOD PH 6.96 (7.30-7.42)
[2017-05-09 05:08] LABS: URINE AMPHETAMINES SCREEN NEGATIVE; URINE BARBITURATES SCREEN NEGATIVE; URINE BENZODIAZEPINES SCREEN NEGATIVE; URINE COCAINE SCREEN UNCONFIRMED POSITIVE; URINE MARIJUANA (THC) SCREEN NEGATIVE; URINE METHADONE SCREEN NEGATIVE; URINE PHENCYCLIDINE SCREEN NEGATIVE
[2017-05-09 05:14] LABS: CREATINE KINASE MB 4.56 ng/mL (<4.55)
[2017-05-09 05:18] LABS: TROPONIN I < 0.012 ng/mL
[2017-05-09 05:22] LABS: APPEARANCE,URINE CLEAR; BILIRUBIN,URINE NEGATIVE (NEGATIVE); COLOR,URINE YELLOW; GLUCOSE, URINE 500 mg/dL (NEGATIVE); KETONES,URINE 300 mg/dL (NEGATIVE)
[2017-05-09 05:23] LABS: LEUKOCYTE ESTERASE,URINE NEGATIVE (NEGATIVE); NITRITE,URINE NEGATIVE (NEGATIVE); PROTEIN,URINE 30 mg/dL (NEGATIVE); URINE SPECIFIC GRAVITY 1.025; UROBILINOGEN,URINE NEGATIVE mg/dL (<2.0)
[2017-05-09] MEDS: MORPHINE SULFATE 10 MG/ML INJ IV PRN ×5 (05:41→17:22)
[2017-05-09] MEDS: HEPARIN SOD (PORCINE) 5,000 UNIT/ML 1 ML SYRINGE SUBCUT SCH ×3 (06:17→22:19)
--- NOTE | 2017-05-09 06:37 | PDOC H&P ---
History of Present Illness Admission Date/PCP: 05/09/17 04:32 Patient complains of: Altered mental status History of Present Illness: CHESTER MCKEON is a 37 year old male with a past medical history of type 1 diabetes, noncompliance, polysubstance abuse, tobacco and noncompliance well- known to the hospitalist service for recurrent admissions in DKA. Patient presents after being found unconscious outside of his home EMS found blood glucose to be high and transported him to the hospital where he is found to be hypothermic at 91F with tachypnea and obtunded. Bicarb was less than 5, glucose 790. He started on IV insulin and saline and referred to the hospitalist for admission. Patient is unable to provide history, but protecting his airway Past Medical History Cardiac Medical History: Reports: Hyperlipidema - On no medication for same., Hypertension - Taken off medication for same. Denies: Atrial Fibrillation, Congestive Heart Failure, Coronary Artery Disease, Myocardial Infarction, Pulmonary Embolism Pulmonary Medical History: Denies: Asthma, Chronic Obstructive Pulmonary Disease (COPD), Sleep Apnea Neurological Medical History: Denies: Seizures Endocrine Medical History: Reports: Diabetes Mellitus Type 1 Denies: Diabetes Mellitus Type 2, Hyperthyroidism, Hypothyroidism GI Medical History: Reports: Gastroesophageal Reflux Disease Denies: Cirrhosis, Hepatitis Musculoskeltal Medical History: Denies: Arthritis Psychiatric Medical History: Reports: Depression, Substance Abuse, Tobacco Dependency Hematology: Reports: Anemia - Chronic illnesses Past Surgical History Past Surgical History: Reports: Orthopedic Surgery - back Denies: Appendectomy, Cholecystectomy, Tonsillectomy Social History Information Source: Emergency Med Personnel, [facility] Records Smoking Status: Never Smoker Frequency of Alcohol Use: None Hx Recreational Drug Use: No Drugs: Cocaine, Marijuana Hx Prescription Drug Abuse: Yes - Advance Directive Resuscitation Status: Full Code Family History Family History: Reviewed & Not Pertinent, DM, Hyperlipidemia, Hypertension Parental Family History Reviewed: No - Unobtainable Children Family History Reviewed: NA - Unobtainable Sibling(s) Family History Reviewed.: NA - unobtainable unobtainable Medication/Allergy Home Medications: Insulin Detemir [Levemir Insulin 100 units/mL] 18 unit SUBCUT Q12 insuln.pen Insulin Lispro [Humalog Insulin (Lispro) 100 unit/mL] 0 - 12 unit SUBCUT Q4HP PRN unit 04/24/17 Insulin Lispro [Humalog Insulin (Lispro) 100 unit/mL] 4 unit SUBCUT AC unit Oxycodone HCl/Acetaminophen [Oxycodone-Acetaminophen 10-325] 1 each PO Q6HP PRN #10 tablet 04/24/17 Insulin Lispro [Humalog Insulin 100 Unit/1 ml 3 ml Vial] 0 unit SUBCUT .SLD SCALE #10 ml 04/30/17 Insulin Regular, Human [Humulin R (Reg) Insulin 100 unit/mL] 1 unit SUBCUT ACBRKFST #10 ml 05/06/17 Promethazine HCl [Phenergan 25 mg Tablet] 25 mg PO TID 5 Days #15 tablet Allergies/Adverse Reactions: ondansetron [From Zofran (as hydrochloride)] Allergy (Verified 05/06/17 12:35) Review of Systems ROS unobtainable: Due to mental status Physical Exam Vital Signs: Temp Pulse Resp BP Pulse Ox 97.8 F 102 H 18 141/73 H 100 05/09/17 06:06 05/09/17 06:00 05/09/17 06:00 05/09/17 06:00 05/09/17 06:00 Intake & Output 05/07/17 05/08/17 05/09/17 11:59 11:59 11:59 Output Total 900 Balance -900 General appearance: PRESENT: disheveled, severe distress, thin. ABSENT: no acute distress, cooperative, hard of hearing Head exam: PRESENT: atraumatic, normocephalic Eye exam: PRESENT: conjunctiva pink, EOMI, PERRLA. ABSENT: scleral icterus Ear exam: PRESENT: normal external ear exam Mouth exam: PRESENT: dry mucosa, neck supple, tongue midline Teeth exam: PRESENT: dental caries Neck exam: ABSENT: carotid bruit, JVD, lymphadenopathy, thyromegaly Respiratory exam: PRESENT: clear to auscultation alfonso, symmetrical, tachypnea. ABSENT: rales, rhonchi, wheezes Cardiovascular exam: PRESENT: gallop, tachycardia Pulses: PRESENT: normal dorsalis pedis pul Vascular exam: PRESENT: normal capillary refill GI/Abdominal exam: PRESENT: normal bowel sounds, soft. ABSENT: distended, guarding, mass, organolmegaly, rebound, tenderness Rectal exam: PRESENT: deferred Extremities exam: PRESENT: full ROM. ABSENT: calf tenderness, clubbing, pedal edema Neurological exam: PRESENT: altered, oriented to person, CN II-XII grossly intact. ABSENT: alert, oriented to time, oriented to situation, reflexes normal Psychiatric exam: PRESENT: flat affect Skin exam: PRESENT: dry, intact, warm. ABSENT: cyanosis, rash Assessment & Plan - Diagnosis (1) Diabetic ketoacidosis Qualifiers: Diabetes mellitus type: type 1 Diabetes mellitus complication detail: without coma Qualified Code(s): E10.10 - Type 1 diabetes mellitus with ketoacidosis without coma Is this a current diagnosis for this admission?: Yes Plan: Diabetic ketoacidosis patient has had some degree of polyuria polydipsia with nausea and uncontrolled hyperglycemia with supporting labs. Patient will receive IV fluids IV insulin serial chemistries every 6 hours for evaluation for electrolyte repletion. Continued evaluation for underlying cause if not found Patient will require diabetic education and consideration of mental health evaluation. (2) Hypothermia Qualifiers: Encounter type: initial encounter Qualified Code(s): T68.XXXA - Hypothermia , initial encounter Is this a current diagnosis for this admission?: Yes Plan: Bear hugger and warmed IV fluids (3) Cocaine abuse Is this a current diagnosis for this admission?: Yes Plan: Avoid beta-blockade and education - Time Time Spent: 50 to 70 Minutes - Inpatient Certification Medical Necessity: Need Close Monitoring Due to Risk of Patient Decompensation
[2017-05-09 06:56] LABS: BLOOD UREA NITROGEN 27 mg/dL (7-20); CALCIUM 8.3 mg/dL (8.4-10.2); CHLORIDE 105 mmol/L (98-107); POTASSIUM 4.7 mmol/L (3.6-5.0); SODIUM 131.4 mmol/L (137-145)
[2017-05-09 07:06] LABS: CARBON DIOXIDE < 5 mmol/L (22-30); GLUCOSE 546 mg/dL (75-110)
--- NOTE | 2017-05-09 08:30 | RADIOLOGY REPORT (SQ) ---
EXAM DESCRIPTION: CHEST SINGLE VIEW COMPLETED DATE/TIME: 05/09/2017 8:21 am REASON FOR STUDY: leukocytosis COMPARISON: 04/09/2017 EXAM PARAMETERS: NUMBER OF VIEWS: One view. TECHNIQUE: Single frontal radiographic view of the chest acquired. RADIATION DOSE: NA LIMITATIONS: None. FINDINGS: LUNGS AND PLEURA: No opacities, masses or pneumothorax. No pleural effusion. MEDIASTINUM AND HILAR STRUCTURES: No masses. Contour normal. HEART AND VASCULAR STRUCTURES: Heart normal in size. Normal vasculature. BONES: No acute findings. HARDWARE: None in the chest. OTHER: No other significant finding. IMPRESSION: NO ACUTE RADIOGRAPHIC FINDING IN THE CHEST. TECHNICAL DOCUMENTATION: JOB ID: [id number] [employer]- All Rights Reserved Reading location - IP/workstation name: [email or web address]
[2017-05-09] MEDS: PROMETHAZINE HCL 25 MG TABLET PO PRN ×3 (08:41→22:21)
--- NOTE | 2017-05-09 09:27 | EKG REPORT ---
SEVERITY:- ABNORMAL ECG - SINUS RHYTHM NONSPECIFIC INTRAVENTRICULAR CONDUCTION DELAY : Confirmed by: Juan Pablo Holm MD 09-May-2017 09:27:09
--- NOTE | 2017-05-09 09:27 | EKG REPORT ---
SEVERITY:- BORDERLINE ECG - SINUS RHYTHM BORDERLINE PROLONGED QT INTERVAL : Confirmed by: Juan Pablo Holm MD 09-May-2017 09:26:51
[2017-05-09] MEDS: DOCUSATE SODIUM 100 MG CAPSULE PO SCH ×2 (10:25→17:24)
[2017-05-09 11:47] LABS: ANION GAP 13 (5-19); BLOOD UREA NITROGEN 24 mg/dL (7-20); CALCIUM 8.6 mg/dL (8.4-10.2); CHLORIDE 110 mmol/L (98-107); GLUCOSE 306 mg/dL (75-110); POTASSIUM 4.4 mmol/L (3.6-5.0); SODIUM 133.3 mmol/L (137-145)
[2017-05-09 11:54] LABS: PHOSPHORUS 2.3 mg/dL (2.5-4.5)
[2017-05-09 11:56] LABS: CREATINE KINASE MB 3.56 ng/mL (<4.55)
[2017-05-09 11:57] LABS: TROPONIN I < 0.012 ng/mL
[2017-05-09 12:03] LABS: CARBON DIOXIDE 10 mmol/L (22-30)
[2017-05-09] MEDS ORDERED: INSULIN REG, HUMAN 100 UNIT/ML 3 ML VIAL (PYX) ONE (14:10)
[2017-05-09] MEDS ORDERED: (PENDING PHARMACY ID) (Oxycodone Hcl/Acetaminophen [Percocet 10-325 Mg Tablet] 1 EACH) PO PRN (15:59)
--- NOTE | 2017-05-09 16:00 | PDOC PROGRESS REPORT ---
Subjective Progress Note for:: 05/09/17 Subjective:: 37 yr old male with IDDM and h/o cocaine use. Dented to the emergency room with generalized body aches severe fatigue blurred vision diarrhea and vomiting for the past 2 days. Home medications include Lantus 18 units twice a day Humalog sliding scale. He states that his blood sugars usually run in the 200s. Since yesterday the levels were unreadable. He reports that he was recently treated at [facility] for an upper GI bleed. They had found gastric ulcers and he received blood transfusions. His last episode of vomiting was at 4 AM today and he initially noticed some bright red blood followed by coffee grounds. He was diagnosed with DKA and started on IV fluids and Insulin gtt. Urine was positive for Cocaine. C/o nausea Reason For Visit: DKA Physical Exam Vital Signs: Temp Pulse Resp BP Pulse Ox 98.1 F 91 13 115/78 99 05/09/17 14:37 05/09/17 14:37 05/09/17 14:37 05/09/17 14:37 05/09/17 14:37 Intake & Output 05/08/17 05/09/17 05/10/17 06:59 06:59 06:59 Output Total 900 Balance -900 General appearance: PRESENT: mild distress Eye exam: PRESENT: conjunctiva pink, PERRLA. ABSENT: scleral icterus Ear exam: PRESENT: normal external ear exam Mouth exam: PRESENT: moist Neck exam: ABSENT: tracheal deviation Respiratory exam: PRESENT: clear to auscultation alfonso, symmetrical, unlabored Cardiovascular exam: PRESENT: RRR GI/Abdominal exam: PRESENT: normal bowel sounds, soft Rectal exam: PRESENT: deferred Extremities exam: ABSENT: calf tenderness, pedal edema Neurological exam: PRESENT: alert, awake, oriented to person, oriented to place , oriented to time, oriented to situation Psychiatric exam: PRESENT: normal mood Skin exam: ABSENT: rash Results Laboratory Results: 05/09/17 11:00 05/09/17 05/09/17 05/09/17 06:28 09:21 11:00 Sodium 131.4 L 133.3 L Potassium 4.7 4.4 Chloride 105 110 H Carbon Dioxide < 5 L* 10 L* Anion Gap Not Reportable 13 BUN 27 H 24 H Creatinine 1.12 0.96 Est GFR ( Amer) > 60 > 60 Est GFR (Non-Af Amer) > 60 > 60 Glucose 546 H* 306 H Calcium 8.3 L 8.6 Phosphorus Cancelled Magnesium Cancelled 05/09/17 11:00 Sodium Potassium Chloride Carbon Dioxide Anion Gap BUN Creatinine Est GFR ( Amer) Est GFR (Non-Af Amer) Glucose Calcium Phosphorus 2.3 L D Magnesium 2.0 05/09/17 11:00 CK-MB (CK-2) 3.56 Troponin I < 0.012 Impressions: Chest X-Ray 05/09/17 00:00 IMPRESSION: NO ACUTE RADIOGRAPHIC FINDING IN THE CHEST. Assessment & Plan - Diagnosis (1) Diabetic ketoacidosis Qualifiers: Diabetes mellitus type: type 1 Diabetes mellitus complication detail: without coma Qualified Code(s): E10.10 - Type 1 diabetes mellitus with ketoacidosis without coma Is this a current diagnosis for this admission?: Yes Plan: Insulin gtt and IV fluids, monitor labs and electrolytes (2) Hypothermia Qualifiers: Encounter type: initial encounter Qualified Code(s): T68.XXXA - Hypothermia , initial encounter Is this a current diagnosis for this admission?: Yes Plan: Improved with Caty hugger and warm IV fluids (3) Leukocytosis Qualifiers: Leukocytosis type: unspecified Qualified Code(s): D72.829 - Elevated white blood cell count, unspecified (4) Cocaine abuse Is this a current diagnosis for this admission?: Yes Plan: Avoid beta blockers (5) DKA, type 1 Qualifiers: Diabetes mellitus complication detail: without coma Qualified Code(s): E10.10 - Type 1 diabetes mellitus with ketoacidosis without coma Is this a current diagnosis for this admission?: Yes Plan: above (6) Dehydration Is this a current diagnosis for this admission?: Yes Plan: As above (7) Depression Qualifiers: Depression Type: unspecified Qualified Code(s): F32.9 - Major depressive disorder, single episode, unspecified Is this a current diagnosis for this admission?: Yes (8) Diarrhea Qualifiers: Diarrhea type: unspecified type Qualified Code(s): R19.7 - Diarrhea, unspecified Is this a current diagnosis for this admission?: Yes
[2017-05-09 16:36] LABS: ANION GAP 7 (5-19); BLOOD UREA NITROGEN 21 mg/dL (7-20); CALCIUM 8.4 mg/dL (8.4-10.2); CARBON DIOXIDE 17 mmol/L (22-30); CHLORIDE 110 mmol/L (98-107); GLUCOSE 127 mg/dL (75-110); SODIUM 133.5 mmol/L (137-145)
[2017-05-09] MEDS: LANSOPRAZOLE 30 MG TAB.RAP.DR PO SCH (17:23)
[2017-05-09] MEDS: METOCLOPRAMIDE HCL 10 MG TABLET PO SCH (17:23)
[2017-05-09] MEDS ORDERED: INSULIN GLARGINE,HUM.REC.ANLOG 300 UNIT/3 ML INSULN.PEN SUBCUT ONE ×3 (18:00→22:11)
[2017-05-09] MEDS: NORMAL SALINE 1000 ML 1,000 ML IV PRN (18:39)
[2017-05-09 20:27] LABS: ANION GAP 8 (5-19); BLOOD UREA NITROGEN 20 mg/dL (7-20); CALCIUM 8.5 mg/dL (8.4-10.2); CARBON DIOXIDE 14 mmol/L (22-30); CHLORIDE 111 mmol/L (98-107); GLUCOSE 213 mg/dL (75-110); POTASSIUM 4.6 mmol/L (3.6-5.0); SODIUM 132.8 mmol/L (137-145)
[2017-05-09 20:39] LABS: TROPONIN I < 0.012 ng/mL
[2017-05-09] MEDS: OXYCODONE HCL IR 5 MG TABLET PO PRN (22:20)
[2017-05-09] MEDS: OXYCODONE-ACETAMINOPHEN 5-325 MG TABLET PO PRN (22:21)
[2017-05-10 01:02] LABS: ANION GAP 12 (5-19); BLOOD UREA NITROGEN 24 mg/dL (7-20); CALCIUM 8.3 mg/dL (8.4-10.2); CHLORIDE 109 mmol/L (98-107); POTASSIUM 4.9 mmol/L (3.6-5.0); SODIUM 131.3 mmol/L (137-145)
[2017-05-10 01:12] LABS: GLUCOSE 423 mg/dL (75-110)
[2017-05-10 01:13] LABS: CARBON DIOXIDE 10 mmol/L (22-30)
[2017-05-10] MEDS ORDERED: NORMAL SALINE 1000 ML 2,000 ML IV ONE (02:45)
[2017-05-10] MEDS: OXYCODONE-ACETAMINOPHEN 5-325 MG TABLET PO PRN ×4 (02:54→21:13)
[2017-05-10] MEDS: OXYCODONE HCL IR 5 MG TABLET PO PRN ×4 (02:54→20:02)
[2017-05-10] MEDS: PROMETHAZINE HCL 25 MG TABLET PO PRN ×3 (02:55→19:58)
[2017-05-10 04:02] LABS: ABSOLUTE BASOPHILS # (AUTO) 0.1 10^3/uL (0.0-0.2); ABSOLUTE EOSINOPHILS # (AUTO) 0.1 10^3/uL (0.0-0.6); ABSOLUTE LYMPHOCYTES (AUTO) 1.6 10^3/uL (0.5-4.7); ABSOLUTE NEUT (AUTO) 11.6 10^3/uL (1.7-8.2); BASOPHILS % (AUTO) 0.6 % (0-2); EOSINOPHILS % (AUTO) 0.9 % (0-6); HEMATOCRIT 24.9 % (37.9-51.0); LYMPHOCYTES % (AUTO) 11.1 % (13-45); MEAN CORPUSCULAR HEMOGLOBIN 25.4 pg (27.0-33.4); MONOCYTES % (AUTO) 7.2 % (3-13); PLATELET COUNT 276 10^3/uL (150-450); RED BLOOD COUNT 3.15 10^6/uL (4.35-5.55); RED CELL DISTRIBUTION WIDTH 18.3 % (11.5-14.0); SEGMENTED NEUTROPHILS % (AUTO) 80.2 % (42-78); TOTAL CELLS COUNTED % (AUTO) 100 %; WHITE BLOOD COUNT 14.5 10^3/uL (4.0-10.5)
[2017-05-10 04:11] LABS: MEAN CORPUSCULAR VOLUME 79 fl (80-97)
[2017-05-10 04:40] LABS: ALANINE AMINOTRANSFERASE 33 U/L (21-72); ALBUMIN 2.4 g/dL (3.5-5.0); ALKALINE PHOSPHATASE 81 U/L (38-126); ASPARTATE AMINO TRANSFERASE 13 U/L (17-59); CREATINE KINASE 60 U/L (55-170); TOTAL PROTEIN 4.4 g/dL (6.3-8.2)
[2017-05-10 04:41] LABS: ANION GAP 10 (5-19); BLOOD UREA NITROGEN 20 mg/dL (7-20); CALCIUM 7.9 mg/dL (8.4-10.2); CARBON DIOXIDE 14 mmol/L (22-30); CHLORIDE 112 mmol/L (98-107); GLUCOSE 257 mg/dL (75-110); SODIUM 135.7 mmol/L (137-145)
[2017-05-10 04:44] LABS: BILIRUBIN,TOTAL < 0.1 mg/dL (0.2-1.3)
[2017-05-10 04:49] LABS: POTASSIUM 3.9 mmol/L (3.6-5.0)
[2017-05-10] MEDS: HEPARIN SOD (PORCINE) 5,000 UNIT/ML 1 ML SYRINGE SUBCUT SCH (05:36)
[2017-05-10] MEDS: METOCLOPRAMIDE HCL 10 MG TABLET PO SCH ×3 (07:39→15:59)
[2017-05-10] MEDS: LANSOPRAZOLE 30 MG TAB.RAP.DR PO SCH (07:39)
[2017-05-10 07:59] LABS: ANION GAP 8 (5-19); BLOOD UREA NITROGEN 19 mg/dL (7-20); CALCIUM 8.9 mg/dL (8.4-10.2); CARBON DIOXIDE 15 mmol/L (22-30); CHLORIDE 113 mmol/L (98-107); GLUCOSE 164 mg/dL (75-110); POTASSIUM 3.9 mmol/L (3.6-5.0); SODIUM 136.4 mmol/L (137-145)
[2017-05-10] MEDS ORDERED: MAGNESIUM SULFATE/D5W 1 GM/100 ML RTUPB IV ONE (10:00)
[2017-05-10] MEDS ORDERED: PANTOPRAZOLE SODIUM 40 MG VIAL IV SCH (10:00)
[2017-05-10] MEDS: DOCUSATE SODIUM 100 MG CAPSULE PO SCH ×2 (11:14→17:09)
[2017-05-10] MEDS: PHOSPHORUS #1 250 MG TABLET PO SCH ×3 (11:14→16:00)
[2017-05-10] MEDS: MORPHINE SULFATE 10 MG/ML INJ IV PRN (11:24)
[2017-05-10] MEDS: INSULIN GLARGINE,HUM.REC.ANLOG 300 UNIT/3 ML INSULN.PEN SUBCUT SCH ×2 (11:28→21:14)
[2017-05-10] MEDS: NORMAL SALINE 1000 ML 1,000 ML IV PRN (11:47)
[2017-05-10 11:53] LABS: HEMATOCRIT 28.3 % (37.9-51.0); HEMOGLOBIN 8.8 g/dL (13.5-17.0); MEAN CORPUSCULAR HEMOGLOBIN 25.2 pg (27.0-33.4); MEAN CORPUSCULAR HGB CONC 31.3 g/dL (32.0-36.0); MEAN CORPUSCULAR VOLUME 80 fl (80-97); RED BLOOD COUNT 3.51 10^6/uL (4.35-5.55); RED CELL DISTRIBUTION WIDTH 17.8 % (11.5-14.0); WHITE BLOOD COUNT 14.5 10^3/uL (4.0-10.5)
[2017-05-10 12:14] LABS: ANION GAP 7 (5-19); BLOOD UREA NITROGEN 18 mg/dL (7-20); CALCIUM 8.6 mg/dL (8.4-10.2); CARBON DIOXIDE 13 mmol/L (22-30); CHLORIDE 114 mmol/L (98-107); GLUCOSE 365 mg/dL (75-110); POTASSIUM 4.5 mmol/L (3.6-5.0); SODIUM 133.9 mmol/L (137-145)
[2017-05-10 12:27] LABS: PLATELET COUNT 235 10^3/uL (150-450)
--- NOTE | 2017-05-10 13:32 | PDOC CONSULTATION ---
Consultation Consult Date: 05/10/17 Attending physician:: MANGO NORRIS Consult reason:: nausea and vomiting. DKA History of Present Illness Admission Date/PCP: 05/09/17 04:32 History of Present Illness: patient has had multiple admissions presents with DKA and associated nausea and vomiting has had multiple EGD's over the various admission the majority of the time, the differential diagnosis would be a MW tear, with occasional exposure of a visible vessel ( as per previous admission), or erosive esophagitis. He has had multiple EGD as well in the past his Hgb had remained stable on this admission another admission for poor glucose control will need to be a PPI drip until can take oral antiemetics as needed will defer on EGD for now since will need vigorous rehydration and glucose control would intervene only if significant bleeding Past Medical History Cardiac Medical History: Reports: Hyperlipidema - On no medication for same., Hypertension - Taken off medication for same. Denies: Atrial Fibrillation, Congestive Heart Failure, Coronary Artery Disease, Myocardial Infarction, Pulmonary Embolism Pulmonary Medical History: Denies: Asthma, Chronic Obstructive Pulmonary Disease (COPD), Sleep Apnea Neurological Medical History: Denies: Seizures Endocrine Medical History: Reports: Diabetes Mellitus Type 1 Denies: Diabetes Mellitus Type 2, Hyperthyroidism, Hypothyroidism GI Medical History: Reports: Gastroesophageal Reflux Disease Denies: Cirrhosis, Hepatitis Musculoskeltal Medical History: Denies: Arthritis Psychiatric Medical History: Reports: Depression, Substance Abuse, Tobacco Dependency Hematology: Reports: Anemia - Chronic illnesses Past Surgical History Past Surgical History: Reports: Orthopedic Surgery - back Denies: Appendectomy, Cholecystectomy, Tonsillectomy Social History Smoking Status: Never Smoker Frequency of Alcohol Use: None Hx Recreational Drug Use: No Drugs: Cocaine, Marijuana Hx Prescription Drug Abuse: Yes - Advance Directive Resuscitation Status: Full Code Family History Family History: Reviewed & Not Pertinent, DM, Hyperlipidemia, Hypertension Parental Family History Reviewed: Yes Children Family History Reviewed: Unknown Sibling(s) Family History Reviewed.: Unknown Medication/Allergy Home Medications: Insulin Glargine,Hum.rec.anlog [Lantus Solostar] 18 unit SQ Q12 05/09/17 Insulin Lispro [Humalog Insulin 100 Unit/1 ml 3 ml Vial] 0 unit SUBCUT .SLD SCALE 05/09/17 Metoclopramide HCl [Reglan 10 mg Tablet] 10 mg PO AC 05/09/17 Oxycodone HCl/Acetaminophen [Percocet 10-325 Mg Tablet] 1 each PO Q6HP PRN 05/09 Pantoprazole Sodium [Protonix] 40 mg PO BIDBS 05/09/17 Promethazine HCl [Phenergan 25 mg Tablet] 25 mg PO Q6HP PRN 05/09/17 Allergies/Adverse Reactions: ondansetron [From Zofran (as hydrochloride)] Allergy (Verified 05/06/17 12:35) Review of Systems Constitutional: PRESENT: weakness. ABSENT: fever(s), headache(s), night sweats Eyes: PRESENT: visual disturbances Ears: ABSENT: hearing changes Cardiovascular: ABSENT: chest pain, edema, orthropnea Respiratory: ABSENT: dyspnea, hemoptysis Genitourinary: ABSENT: dysuria, hematuria Integumentary: ABSENT: pruritus Neurological: ABSENT: syncope, tingling, tremor(s), vertigo Endocrine: ABSENT: polydipsia, polyphagia Hematologic/Lymphatic: ABSENT: easy bruising Physical Exam Vital Signs: Temp Pulse Resp BP Pulse Ox 97.6 F 92 14 113/76 100 05/10/17 08:00 05/10/17 08:33 05/10/17 08:00 05/10/17 10:26 05/10/17 08:00 Intake & Output 05/09/17 05/10/17 05/11/17 06:59 06:59 06:59 Intake Total 3849 Output Total 900 1370 Balance -900 2479 Weight 65.7 kg General appearance: PRESENT: mild distress Head exam: PRESENT: atraumatic, normocephalic Eye exam: PRESENT: EOMI, PERRLA. ABSENT: nystagmus, periorbital swelling, scleral icterus Mouth exam: PRESENT: moist, neck supple Throat exam: ABSENT: tonsillar exudate, tonsillogmegaly Neck exam: ABSENT: meningismus, tenderness, thyromegaly Respiratory exam: PRESENT: symmetrical, unlabored. ABSENT: tachypnea, wheezes Cardiovascular exam: PRESENT: RRR, +S1, +S2 GI/Abdominal exam: PRESENT: soft. ABSENT: rebound, rigid, tenderness Extremities exam: ABSENT: joint swelling Musculoskeletal exam: PRESENT: full ROM Neurological exam: PRESENT: oriented to time, oriented to situation, CN II-XII grossly intact Focused psych exam: ABSENT: restlessness Skin exam: ABSENT: pallor, petechiae, urticaria, vesicles Results Laboratory Results: 05/10/17 11:30 05/10/17 11:30 05/09/17 05/09/17 05/09/17 15:50 20:04 23:40 WBC RBC Hgb Hct MCV MCH MCHC RDW Plt Count Seg Neutrophils % Lymphocytes % Monocytes % Eosinophils % Basophils % Absolute Neutrophils Absolute Lymphocytes Absolute Monocytes Absolute Eosinophils Absolute Basophils Sodium 133.5 L 132.8 L 131.3 L Potassium 4.0 4.6 4.9 Chloride 110 H 111 H 109 H Carbon Dioxide 17 L 14 L 10 L* Anion Gap 7 8 12 BUN 21 H 20 24 H Creatinine 0.84 0.88 0.91 Est GFR ( Amer) > 60 > 60 > 60 Est GFR (Non-Af Amer) > 60 > 60 > 60 Glucose 127 H 213 H 423 H* Calcium 8.4 8.5 8.3 L Phosphorus Magnesium Total Bilirubin AST ALT Alkaline Phosphatase Total Protein Albumin 05/10/17 05/10/17 05/10/17 03:43 03:43 03:43 WBC 14.5 H RBC 3.15 L Hgb 8.0 L D Hct 24.9 L MCV 79 L D MCH 25.4 L MCHC 32.0 RDW 18.3 H Plt Count 276 Seg Neutrophils % 80.2 H Lymphocytes % 11.1 L Monocytes % 7.2 Eosinophils % 0.9 Basophils % 0.6 Absolute Neutrophils 11.6 H Absolute Lymphocytes 1.6 Absolute Monocytes 1.0 Absolute Eosinophils 0.1 Absolute Basophils 0.1 Sodium 135.7 L Potassium 3.9 D Chloride 112 H Carbon Dioxide 14 L Anion Gap 10 BUN 20 Creatinine 0.88 Est GFR ( Amer) > 60 Est GFR (Non-Af Amer) > 60 Glucose 257 H Calcium 7.9 L Phosphorus 2.0 L Magnesium 1.7 Total Bilirubin < 0.1 L AST 13 L ALT 33 Alkaline Phosphatase 81 Total Protein 4.4 L Albumin 2.4 L 05/10/17 05/10/17 05/10/17 07:32 11:30 11:30 WBC 14.5 H RBC 3.51 L Hgb 8.8 L Hct 28.3 L MCV 80 MCH 25.2 L MCHC 31.3 L RDW 17.8 H Plt Count 235 Seg Neutrophils % Lymphocytes % Monocytes % Eosinophils % Basophils % Absolute Neutrophils Absolute Lymphocytes Absolute Monocytes Absolute Eosinophils Absolute Basophils Sodium 136.4 L 133.9 L Potassium 3.9 4.5 Chloride 113 H 114 H Carbon Dioxide 15 L 13 L Anion Gap 8 7 BUN 19 18 Creatinine 0.80 0.86 Est GFR ( Amer) > 60 > 60 Est GFR (Non-Af Amer) > 60 > 60 Glucose 164 H 365 H Calcium 8.9 8.6 Phosphorus Magnesium Total Bilirubin AST ALT Alkaline Phosphatase Total Protein Albumin 05/09/17 05/09/17 05/10/17 11:00 20:04 03:43 Creatine Kinase 60 CK-MB (CK-2) 3.56 3.50 Troponin I < 0.012 < 0.012 Impressions: Chest X-Ray 05/09/17 00:00 IMPRESSION: NO ACUTE RADIOGRAPHIC FINDING IN THE CHEST. Assessment & Plan - Diagnosis (1) Acute blood loss anemia Plan: multiple admissions for DKA, nausea and vomiting multiple EGD in the past had MW tear visible visible vessel noted on previous admission Hgb is stable for now, 10. 8.1, 8.8 etiology is likely due to MW tear, erosiove esophagitis and ulceration for now PPI, and antiemetics his symptoms usually resolve with control of his DKA would intervene only if significant bleeding or if does not resolve will monitor - Time Time Spent: 50 to 70 Minutes
[2017-05-10 15:52] LABS: ANION GAP 6 (5-19); BLOOD UREA NITROGEN 16 mg/dL (7-20); CALCIUM 8.3 mg/dL (8.4-10.2); CARBON DIOXIDE 17 mmol/L (22-30); CHLORIDE 113 mmol/L (98-107); GLUCOSE 154 mg/dL (75-110); SODIUM 135.7 mmol/L (137-145)
[2017-05-10] MEDS: NORMAL SALINE 100 ML with INSULIN REGULAR, HUMAN 100 UNIT IV PRN ×2 (15:58)
[2017-05-10 16:00] LABS: POTASSIUM 3.5 mmol/L (3.6-5.0)
--- NOTE | 2017-05-10 16:21 | PDOC PROGRESS REPORT ---
Subjective Progress Note for:: 05/10/17 Subjective:: 37 yr old male with IDDM and h/o cocaine use. He presented to the emergency room with generalized body aches severe fatigue blurred vision diarrhea and vomiting for the past 2 days and was found to be in DKA. He was started on IV fluids and Insulin gtt. Urine was positive for Cocaine. Reported nausea and vomiting at home and also had noticed bright red blood in his vomitus followed by coffee grounds. He has had no hematemesis in the past 24 hours. Hemoglobin was initially 10 it dropped down to 8 this morning repeat hemoglobin done this afternoon stays at 8. No active bleeding. GI input appreciated. He is on a Protonix drip. He was recently admitted to this hospital and was diagnosed with a GI bleed and was found to have an actively bleeding vessel in an ulcer near the gastroesophageal junction for which she was transferred to [facility]. Continue to follow him closely. Reason For Visit: DKA Physical Exam Vital Signs: Temp Pulse Resp BP Pulse Ox 97.8 F 95 12 121/89 H 100 05/10/17 12:00 05/10/17 12:00 05/10/17 12:00 05/10/17 13:11 05/10/17 13:11 Intake & Output 05/09/17 05/10/17 05/11/17 06:59 06:59 06:59 Intake Total 3849 600 Output Total 900 1370 Balance -900 2479 600 Weight 65.7 kg General appearance: PRESENT: no acute distress Head exam: PRESENT: atraumatic, normocephalic Ear exam: PRESENT: normal external ear exam Mouth exam: PRESENT: moist Respiratory exam: PRESENT: clear to auscultation alfonso, symmetrical. ABSENT: accessory muscle use Cardiovascular exam: PRESENT: RRR GI/Abdominal exam: PRESENT: normal bowel sounds, soft Rectal exam: PRESENT: deferred Extremities exam: ABSENT: calf tenderness, pedal edema Neurological exam: PRESENT: alert, awake Psychiatric exam: PRESENT: appropriate affect Skin exam: ABSENT: rash Results Laboratory Results: 05/10/17 11:30 05/10/17 15:15 05/09/17 05/09/17 05/09/17 15:50 20:04 23:40 WBC RBC Hgb Hct MCV MCH MCHC RDW Plt Count Seg Neutrophils % Lymphocytes % Monocytes % Eosinophils % Basophils % Absolute Neutrophils Absolute Lymphocytes Absolute Monocytes Absolute Eosinophils Absolute Basophils Sodium 133.5 L 132.8 L 131.3 L Potassium 4.0 4.6 4.9 Chloride 110 H 111 H 109 H Carbon Dioxide 17 L 14 L 10 L* Anion Gap 7 8 12 BUN 21 H 20 24 H Creatinine 0.84 0.88 0.91 Est GFR ( Amer) > 60 > 60 > 60 Est GFR (Non-Af Amer) > 60 > 60 > 60 Glucose 127 H 213 H 423 H* Calcium 8.4 8.5 8.3 L Phosphorus Magnesium Total Bilirubin AST ALT Alkaline Phosphatase Total Protein Albumin 05/10/17 05/10/17 05/10/17 03:43 03:43 03:43 WBC 14.5 H RBC 3.15 L Hgb 8.0 L D Hct 24.9 L MCV 79 L D MCH 25.4 L MCHC 32.0 RDW 18.3 H Plt Count 276 Seg Neutrophils % 80.2 H Lymphocytes % 11.1 L Monocytes % 7.2 Eosinophils % 0.9 Basophils % 0.6 Absolute Neutrophils 11.6 H Absolute Lymphocytes 1.6 Absolute Monocytes 1.0 Absolute Eosinophils 0.1 Absolute Basophils 0.1 Sodium 135.7 L Potassium 3.9 D Chloride 112 H Carbon Dioxide 14 L Anion Gap 10 BUN 20 Creatinine 0.88 Est GFR ( Amer) > 60 Est GFR (Non-Af Amer) > 60 Glucose 257 H Calcium 7.9 L Phosphorus 2.0 L Magnesium 1.7 Total Bilirubin < 0.1 L AST 13 L ALT 33 Alkaline Phosphatase 81 Total Protein 4.4 L Albumin 2.4 L 05/10/17 05/10/17 05/10/17 07:32 11:30 11:30 WBC 14.5 H RBC 3.51 L Hgb 8.8 L Hct 28.3 L MCV 80 MCH 25.2 L MCHC 31.3 L RDW 17.8 H Plt Count 235 Seg Neutrophils % Lymphocytes % Monocytes % Eosinophils % Basophils % Absolute Neutrophils Absolute Lymphocytes Absolute Monocytes Absolute Eosinophils Absolute Basophils Sodium 136.4 L 133.9 L Potassium 3.9 4.5 Chloride 113 H 114 H Carbon Dioxide 15 L 13 L Anion Gap 8 7 BUN 19 18 Creatinine 0.80 0.86 Est GFR ( Amer) > 60 > 60 Est GFR (Non-Af Amer) > 60 > 60 Glucose 164 H 365 H Calcium 8.9 8.6 Phosphorus Magnesium Total Bilirubin AST ALT Alkaline Phosphatase Total Protein Albumin 05/10/17 15:15 WBC RBC Hgb Hct MCV MCH MCHC RDW Plt Count Seg Neutrophils % Lymphocytes % Monocytes % Eosinophils % Basophils % Absolute Neutrophils Absolute Lymphocytes Absolute Monocytes Absolute Eosinophils Absolute Basophils Sodium 135.7 L Potassium 3.5 L D Chloride 113 H Carbon Dioxide 17 L Anion Gap 6 BUN 16 Creatinine 0.76 Est GFR ( Amer) > 60 Est GFR (Non-Af Amer) > 60 Glucose 154 H Calcium 8.3 L Phosphorus Magnesium Total Bilirubin AST ALT Alkaline Phosphatase Total Protein Albumin 05/09/17 05/09/17 05/10/17 11:00 20:04 03:43 Creatine Kinase 60 CK-MB (CK-2) 3.56 3.50 Troponin I < 0.012 < 0.012 Impressions: Chest X-Ray 05/09/17 00:00 IMPRESSION: NO ACUTE RADIOGRAPHIC FINDING IN THE CHEST. Assessment & Plan - Diagnosis (1) Diabetic ketoacidosis Qualifiers: Diabetes mellitus type: type 1 Diabetes mellitus complication detail: without coma Qualified Code(s): E10.10 - Type 1 diabetes mellitus with ketoacidosis without coma Is this a current diagnosis for this admission?: Yes Plan: Continue Insulin gtt and IV fluids, monitor labs and electrolytes. (2) Hypothermia Qualifiers: Encounter type: initial encounter Qualified Code(s): T68.XXXA - Hypothermia , initial encounter Is this a current diagnosis for this admission?: Yes Plan: Resolved with Caty hugger and warm IV fluids. Blood cultures have been negative so far. (3) Leukocytosis Qualifiers: Leukocytosis type: unspecified Qualified Code(s): D72.829 - Elevated white blood cell count, unspecified Is this a current diagnosis for this admission?: Yes Plan: Most likely due to acute stress. (4) Cocaine abuse Is this a current diagnosis for this admission?: Yes Plan: Avoid beta blockers (5) DKA, type 1 Qualifiers: Diabetes mellitus complication detail: without coma Qualified Code(s): E10.10 - Type 1 diabetes mellitus with ketoacidosis without coma Is this a current diagnosis for this admission?: Yes Plan: As above (6) Dehydration Is this a current diagnosis for this admission?: Yes Plan: As above. (7) Diarrhea Qualifiers: Diarrhea type: unspecified type Qualified Code(s): R19.7 - Diarrhea, unspecified Is this a current diagnosis for this admission?: Yes (8) Acute blood loss anemia Is this a current diagnosis for this admission?: Yes Plan: Monitor hemoglobin. Protonix gtt. Avoid NSAIDs. (9) Upper gastrointestinal bleed Is this a current diagnosis for this admission?: Yes Plan: No active bleeding observed at present Differential includes: Peptic ulcer, emeli Ríos tear vs erosions. Protonix gtt and clear liquid diet. - Time Time Spent with patient: 35 or more minutes
[2017-05-10] MEDS: NORMAL SALINE 100 ML with PANTOPRAZOLE SODIUM 80 MG IV PRN ×2 (17:36)
[2017-05-10] MEDS ORDERED: POTASSI CL 20 MEQ/50 ML RIDER 20 MEQ/50 ML RTUPB IV ONE (19:58)
[2017-05-10 19:59] LABS: ANION GAP 8 (5-19); BLOOD UREA NITROGEN 14 mg/dL (7-20); CALCIUM 8.3 mg/dL (8.4-10.2); CARBON DIOXIDE 15 mmol/L (22-30); CHLORIDE 114 mmol/L (98-107); GLUCOSE 210 mg/dL (75-110); POTASSIUM 3.6 mmol/L (3.6-5.0)
[2017-05-10] MEDS ORDERED: LOPERAMIDE HCL 2 MG CAPSULE ONE (22:59)
[2017-05-10] MEDS ORDERED: LOPERAMIDE HCL 2 MG CAPSULE PO ONE (23:00)
[2017-05-10] MEDS ORDERED: SODIUM BICARBONATE 650 MG TABLET ONE (23:00)
[2017-05-10] MEDS: SODIUM BICARBONATE 650 MG TABLET PO SCH (23:18)
[2017-05-10 23:54] LABS: ANION GAP 8 (5-19); BLOOD UREA NITROGEN 12 mg/dL (7-20); CALCIUM 8.5 mg/dL (8.4-10.2); CARBON DIOXIDE 14 mmol/L (22-30); CHLORIDE 115 mmol/L (98-107); GLUCOSE 136 mg/dL (75-110); POTASSIUM 3.6 mmol/L (3.6-5.0); SODIUM 136.9 mmol/L (137-145)
[2017-05-11] MEDS: MORPHINE SULFATE 10 MG/ML INJ IV PRN (01:22)
[2017-05-11] MEDS: PROMETHAZINE HCL 25 MG TABLET PO PRN ×3 (01:23→09:17)
[2017-05-11] MEDS: NORMAL SALINE 100 ML with PANTOPRAZOLE SODIUM 80 MG IV PRN ×2 (02:59)
[2017-05-11] MEDS: NORMAL SALINE 1000 ML 1,000 ML IV PRN (04:03)
[2017-05-11] MEDS: SODIUM BICARBONATE 650 MG TABLET PO SCH (04:03)
[2017-05-11 04:16] LABS: ABSOLUTE BASOPHILS # (AUTO) 0.1 10^3/uL (0.0-0.2); ABSOLUTE EOSINOPHILS # (AUTO) 0.1 10^3/uL (0.0-0.6); ABSOLUTE LYMPHOCYTES (AUTO) 0.9 10^3/uL (0.5-4.7); ABSOLUTE MONOCYTES (AUTO) 0.8 10^3/uL (0.1-1.4); ABSOLUTE NEUT (AUTO) 5.3 10^3/uL (1.7-8.2); BASOPHILS % (AUTO) 0.8 % (0-2); EOSINOPHILS % (AUTO) 1.5 % (0-6); HEMATOCRIT 24.8 % (37.9-51.0); LYMPHOCYTES % (AUTO) 12.7 % (13-45); MEAN CORPUSCULAR HEMOGLOBIN 25.7 pg (27.0-33.4); MEAN CORPUSCULAR HGB CONC 32.2 g/dL (32.0-36.0); MEAN CORPUSCULAR VOLUME 80 fl (80-97); MONOCYTES % (AUTO) 10.8 % (3-13); PLATELET COUNT 246 10^3/uL (150-450); RED CELL DISTRIBUTION WIDTH 18.1 % (11.5-14.0); SEGMENTED NEUTROPHILS % (AUTO) 74.2 % (42-78); TOTAL CELLS COUNTED % (AUTO) 100 %; WHITE BLOOD COUNT 7.2 10^3/uL (4.0-10.5)
[2017-05-11 04:35] LABS: ANION GAP 5 (5-19); BLOOD UREA NITROGEN 10 mg/dL (7-20); CARBON DIOXIDE 13 mmol/L (22-30); CHLORIDE 119 mmol/L (98-107); GLUCOSE 146 mg/dL (75-110); PHOSPHORUS 2.4 mg/dL (2.5-4.5); POTASSIUM 3.5 mmol/L (3.6-5.0); SODIUM 137.1 mmol/L (137-145)
[2017-05-11] MEDS: OXYCODONE-ACETAMINOPHEN 5-325 MG TABLET PO PRN ×2 (05:36→09:17)
[2017-05-11] MEDS: OXYCODONE HCL IR 5 MG TABLET PO PRN ×2 (05:36→09:18)
[2017-05-11] MEDS ORDERED: POTASSIUM CHLORIDE 10 MEQ TABLET.SA PO ONE (06:00)
[2017-05-11] MEDS ORDERED: INSULIN LISPRO 100 UNIT/ML 3 ML VIAL SUBCUT PRN (06:47)
[2017-05-11 07:56] LABS: ANION GAP 7 (5-19); BLOOD UREA NITROGEN 9 mg/dL (7-20); CALCIUM 8.1 mg/dL (8.4-10.2); CARBON DIOXIDE 16 mmol/L (22-30); CHLORIDE 115 mmol/L (98-107); GLUCOSE 82 mg/dL (75-110); POTASSIUM 3.6 mmol/L (3.6-5.0); SODIUM 138.1 mmol/L (137-145)
[2017-05-11 08:50] VITALS: BP 100/71
[2017-05-11] MEDS: PHOSPHORUS #1 250 MG TABLET PO SCH (09:09)
[2017-05-11] MEDS: METOCLOPRAMIDE HCL 10 MG TABLET PO SCH (09:09)
[2017-05-11] MEDS: INSULIN GLARGINE,HUM.REC.ANLOG 300 UNIT/3 ML INSULN.PEN SUBCUT SCH (09:10)
[2017-05-11] MEDS: DOCUSATE SODIUM 100 MG CAPSULE PO SCH (09:11)
--- NOTE | 2017-05-11 09:45 | PDOC DISCHARGE SUMMARY ---
General - Admit/Disc Date/PCP Admission Date/Primary Care Provider: 05/09/17 04:32 Discharge Date: 05/11/17 - Discharge Diagnosis (1) DKA, type 1 Is this a current diagnosis for this admission?: Yes (2) Upper gastrointestinal bleed Is this a current diagnosis for this admission?: Yes (3) Acute blood loss anemia Is this a current diagnosis for this admission?: Yes (4) Cocaine abuse Is this a current diagnosis for this admission?: Yes - Additional Information Resuscitation Status: Full Code Discharge Diet: Diabetic Discharge Activity: Activity As Tolerated Prescriptions: Oxycodone HCl/Acetaminophen [Percocet 5-325 mg Tablet] 1 tab PO Q6HP PRN #30 tablet PRN Reason: Promethazine HCl [Phenergan 25 mg Tablet] 25 mg PO Q6HP PRN #30 tablet PRN Reason: For Nausea/Vomiting Pantoprazole Sodium [Protonix] 40 mg PO BIDBS #60 tablet.dr Le Medications: Insulin Glargine,Hum.rec.anlog [Lantus Solostar] 18 unit SQ Q12 05/09/17 Oxycodone HCl/Acetaminophen [Percocet 5-325 mg Tablet] 1 tab PO Q6HP PRN #30 tablet 05/11/17 Pantoprazole Sodium [Protonix] 40 mg PO BIDBS #60 tablet. 05/11/17 Promethazine HCl [Phenergan 25 mg Tablet] 25 mg PO Q6HP PRN #30 tablet 05/11/17 History of Present Illness History of Present Illness: 37 yr old male with IDDM and h/o cocaine use. He presented to the emergency room with generalized body aches severe fatigue blurred vision diarrhea and vomiting for the past 2 days and was found to be in DKA. He reported nausea and vomiting at home and also had noticed bright red blood in his vomitus followed by coffee grounds. He was recently admitted to this hospital and was diagnosed with a GI bleed and was found to have an actively bleeding vessel in an ulcer near the gastroesophageal junction for which she was transferred to [facility] Hospital Course Hospital Course: He has had no hematemesis in the hospital. His hemoglobin was initially 10; it dropped down to 8, likely as a result of hemodilution. GI consult was obtained. No endoscopic intervention was recommended. He was started on Protonix IV. Again, he had no active bleeding. His DKA/metabolic abnormalities were easily corrected with insulin and fluids. Once the DKA resolved, the insulin drip was discontinued, and he was started on his usual dose of Lantus 18 units twice daily. At the time of discharge, his blood sugars were well controlled. He stated that the reason why he returned to the hospital was due to his lack of ability to obtain Lantus. He says that he [facility]. They usually provide him with insulin. He is unable to afford Lantus on his own. He has used 70/30 in the past but says that it does not work in controlling his blood sugars. I called the [facility] and spoke with Li. She was familiar with the patient. She stated that she called him April 12 to let him know that his Lantus was in the clinic and ready for him to tow picker. Unfortunately, he did not have a valid phone number. I told this to him. I also told him that he can walk to the clinic following discharge today and tow picker his Lantus. He was agreeable. Physical Exam Vital Signs: Temp Pulse Resp BP Pulse Ox 97.9 F 90 14 129/97 H 100 05/11/17 05:54 05/11/17 07:49 05/10/17 18:00 05/11/17 07:20 05/10/17 18:00 Intake & Output 05/10/17 05/11/17 05/12/17 06:59 06:59 06:59 Intake Total 3849 4326 Output Total 1370 0 Balance 2479 4326 Weight 65.7 kg 67.2 kg General appearance: PRESENT: no acute distress, well-developed, well-nourished Head exam: PRESENT: atraumatic, normocephalic Eye exam: PRESENT: EOMI, PERRLA Mouth exam: PRESENT: neck supple Neck exam: ABSENT: carotid bruit, JVD, lymphadenopathy, thyromegaly Respiratory exam: PRESENT: clear to auscultation alfonso. ABSENT: rales, rhonchi, wheezes Cardiovascular exam: PRESENT: RRR. ABSENT: diastolic murmur, rubs, systolic murmur GI/Abdominal exam: PRESENT: normal bowel sounds, soft. ABSENT: distended, guarding, mass, organolmegaly, rebound, tenderness Musculoskeletal exam: PRESENT: ambulatory Neurological exam: PRESENT: alert, awake, oriented to person, oriented to place , oriented to time, oriented to situation, CN II-XII grossly intact. ABSENT: motor sensory deficit Psychiatric exam: PRESENT: appropriate affect, normal mood. ABSENT: homicidal ideation, suicidal ideation Skin exam: PRESENT: dry, intact, warm. ABSENT: cyanosis, rash Results Laboratory Results: 05/11/17 03:47 05/11/17 07:30 05/10/17 05/10/17 05/10/17 11:30 11:30 15:15 WBC 14.5 H RBC 3.51 L Hgb 8.8 L Hct 28.3 L MCV 80 MCH 25.2 L MCHC 31.3 L RDW 17.8 H Plt Count 235 Seg Neutrophils % Lymphocytes % Monocytes % Eosinophils % Basophils % Absolute Neutrophils Absolute Lymphocytes Absolute Monocytes Absolute Eosinophils Absolute Basophils Sodium 133.9 L 135.7 L Potassium 4.5 3.5 L D Chloride 114 H 113 H Carbon Dioxide 13 L 17 L Anion Gap 7 6 BUN 18 16 Creatinine 0.86 0.76 Est GFR ( Amer) > 60 > 60 Est GFR (Non-Af Amer) > 60 > 60 Glucose 365 H 154 H Lactic Acid Calcium 8.6 8.3 L Phosphorus Magnesium 05/10/17 05/10/17 05/10/17 19:30 21:30 23:26 WBC RBC Hgb Hct MCV MCH MCHC RDW Plt Count Seg Neutrophils % Lymphocytes % Monocytes % Eosinophils % Basophils % Absolute Neutrophils Absolute Lymphocytes Absolute Monocytes Absolute Eosinophils Absolute Basophils Sodium 137.0 136.9 L Potassium 3.6 3.6 Chloride 114 H 115 H Carbon Dioxide 15 L 14 L Anion Gap 8 8 BUN 14 12 Creatinine 0.83 0.78 Est GFR ( Amer) > 60 > 60 Est GFR (Non-Af Amer) > 60 > 60 Glucose 210 H 136 H Lactic Acid 2.0 Calcium 8.3 L 8.5 Phosphorus Magnesium 05/11/17 05/11/17 05/11/17 03:47 03:47 07:30 WBC 7.2 RBC 3.10 L Hgb 8.0 L Hct 24.8 L MCV 80 MCH 25.7 L MCHC 32.2 RDW 18.1 H Plt Count 246 Seg Neutrophils % 74.2 Lymphocytes % 12.7 L Monocytes % 10.8 Eosinophils % 1.5 Basophils % 0.8 Absolute Neutrophils 5.3 Absolute Lymphocytes 0.9 Absolute Monocytes 0.8 Absolute Eosinophils 0.1 Absolute Basophils 0.1 Sodium 137.1 138.1 Potassium 3.5 L 3.6 Chloride 119 H 115 H Carbon Dioxide 13 L 16 L Anion Gap 5 7 BUN 10 9 Creatinine 0.68 0.65 Est GFR ( Amer) > 60 > 60 Est GFR (Non-Af Amer) > 60 > 60 Glucose 146 H 82 Lactic Acid Calcium 8.0 L 8.1 L Phosphorus 2.4 L Magnesium 1.9 05/09/17 05/09/17 05/10/17 11:00 20:04 03:43 Creatine Kinase 60 CK-MB (CK-2) 3.56 3.50 Troponin I < 0.012 < 0.012 Impressions: Chest X-Ray 05/09/17 00:00 IMPRESSION: NO ACUTE RADIOGRAPHIC FINDING IN THE CHEST. Qualifiers - * PATEINT BEING DISCHARGED WITH ANY OF THE FOLLOWING DIAGNOSIS?: No Plan Discharge Plan: Follow up at [facility] clinic today to tow picker Miguel A Time Spent: Greater than 30 Minutes - 36 minutes
== END 2017-05-11 11:59 | disposition home or self-care (01) | DRG 638 ==
LOC: ER 02:37 → EH 04:32 → ICU 14:45
PROVIDERS: ADMIT Internal Medicine; ATTEND Internal Medicine
DX: E10.10 Type 1 diabetes mellitus with ketoacidosis without coma (principal); D62 Acute posthemorrhagic anemia; K92.2 Gastrointestinal hemorrhage, unspecified; Z79.4 Long term (current) use of insulin; E78.5 Hyperlipidemia, unspecified; I10 Essential (primary) hypertension; E86.0 Dehydration; K21.9 Gastro-esophageal reflux disease without esophagitis; F17.200 Nicotine dependence, unspecified, uncomplicated; F32.9 Major depressive disorder, single episode, unspecified; F14.10 Cocaine abuse, uncomplicated; T68.XXXA Hypothermia, initial encounter; D72.829 Elevated white blood cell count, unspecified; R19.7 Diarrhea, unspecified; Z88.8 Allergy status to other drugs, medicaments and biological substances; Z83.3 Family history of diabetes mellitus; Z82.49 Family history of ischemic heart disease and other diseases of the circulatory system; Z59.7 Insufficient social insurance and welfare support; X31.XXXA Exposure to excessive natural cold, initial encounter
CPT/HCPCS: 36415; 71045; 80048; 80076; 80307; 81001; 82550; 82553; 82803; 82962; 83036; 83605; 83690; 83735; 84100; 84484; 85025; 85027; 87040; 93005; 93010; J1644; J1815; J2270; J3475; J3480; J7030; S0164

== ENCOUNTER 2017-05-16 19:40 | Inpatient (IN) | payer SELFPAY ==
--- NOTE | 2017-05-16 19:46 | ER Document Report ---
ED Medical Screen (RME) - General Stated Complaint: BLOOD SUGAR ISSUE Time Seen by Provider: 05/16/17 19:45 Notes: 37-year-old noncompliant insulin-dependent diabetic, EMS brings patient in with blood sugars reading high on their Accu-Chek which means greater than 600. Was admitted here with DKA last week. TRAVEL OUTSIDE OF THE [place] IN LAST 30 DAYS: No - Related Data Allergies/Adverse Reactions: ondansetron [From Zofran (as hydrochloride)] Allergy (Verified 05/06/17 12:35) Past Medical History - Past Medical History Cardiac Medical History: Reports: Hx Hypercholesterolemia - On no medication for same., Hx Hypertension - Taken off medication for same. Denies: Hx Atrial Fibrillation, Hx Congestive Heart Failure, Hx Coronary Artery Disease, Hx Heart Attack, Hx Pulmonary Embolism Pulmonary Medical History: Denies: Hx Asthma, Hx COPD, Hx Sleep Apnea Neurological Medical History: Denies: Hx Seizures Endocrine Medical History: Reports: Hx Diabetes Mellitus Type 1. Denies: Hx Diabetes Mellitus Type 2, Hx Hyperthyroidism, Hx Hypothyroidism Renal/ Medical History: Denies: Hx Peritoneal Dialysis GI Medical History: Reports: Hx Gastroesophageal Reflux Disease, Hx Pancreatitis. Denies: Hx Cirrhosis, Hx Hepatitis Musculoskeltal Medical History: Denies Hx Arthritis Psychiatric Medical History: Reports: Hx Depression Infectious Medical History: Denies: Hx Hepatitis Past Surgical History: Reports: Hx Orthopedic Surgery - back. Denies: Hx Appendectomy, Hx Cholecystectomy, Hx Tonsillectomy - Immunizations Hx Diphtheria, Pertussis, Tetanus Vaccination: Yes History of Influenza Vaccine for 11/2016 - 04/2017 Season: Refused
[2017-05-16] MEDS ORDERED: NORMAL SALINE 1000 ML 1,000 ML IV ONE ×2 (19:47→21:26)
[2017-05-16] MEDS ORDERED: METOCLOPRAMIDE HCL INJ/PF 10 MG/2 ML SDV IV ONE (20:15)
--- NOTE | 2017-05-16 20:48 | ER Document Report ---
ED Blood Sugar Problem - General Chief Complaint: High Blood Sugar Stated Complaint: BLOOD SUGAR ISSUE Time Seen by Provider: 05/16/17 19:45 Mode of Arrival: Medic Information source: Patient Notes: Patient is a 37-year-old male who presents to the emergency department today via EMS for complaints of high blood sugar at home. Patient reports that he checked his blood sugar at home and it read "high". Patient reports he was recently discharged from the hospital and that he has been taking 18 units of Lantus Lantus twice a day. Patient states that today he has had vomiting twice and has had continuous diarrhea. Patient denies any fever or chills. Patient reports an allergy to Zofran. Patient reports past medical history of insulin- dependent diabetes, hypertension and hyperlipidemia. Patient denies use of any alcohol or illicit drugs and reports that he smokes occasionally. Patient denies any past surgical history. TRAVEL OUTSIDE OF THE [place] IN LAST 30 DAYS: No - Related Data Allergies/Adverse Reactions: ondansetron [From Zofran (as hydrochloride)] Allergy (Verified 05/06/17 12:35) Past Medical History - General Information source: Patient, Emergency Med Personnel, [facility] Records - Social History Smoking Status: Current Some Day Smoker Frequency of alcohol use: None Drug Abuse: Cocaine Family History: DM, Hyperlipidemia, Hypertension - Past Medical History Cardiac Medical History: Reports: Hx Hypercholesterolemia - On no medication for same., Hx Hypertension - Taken off medication for same. Denies: Hx Atrial Fibrillation, Hx Congestive Heart Failure, Hx Coronary Artery Disease, Hx Heart Attack, Hx Pulmonary Embolism Pulmonary Medical History: Denies: Hx Asthma, Hx COPD, Hx Sleep Apnea Neurological Medical History: Denies: Hx Seizures Endocrine Medical History: Reports: Hx Diabetes Mellitus Type 1. Denies: Hx Diabetes Mellitus Type 2, Hx Hyperthyroidism, Hx Hypothyroidism Renal/ Medical History: Denies: Hx Peritoneal Dialysis GI Medical History: Reports: Hx Gastroesophageal Reflux Disease, Hx Pancreatitis. Denies: Hx Cirrhosis, Hx Hepatitis Musculoskeltal Medical History: Denies Hx Arthritis Psychiatric Medical History: Reports: Hx Depression Infectious Medical History: Denies: Hx Hepatitis Past Surgical History: Reports: Hx Orthopedic Surgery - back. Denies: Hx Appendectomy, Hx Cholecystectomy, Hx Tonsillectomy - Immunizations Hx Diphtheria, Pertussis, Tetanus Vaccination: Yes Hx Pneumococcal Vaccination: 11/09/11 Review of Systems - Review of Systems Constitutional: See HPI EENT: No symptoms reported Cardiovascular: No symptoms reported Respiratory: No symptoms reported Gastrointestinal: See HPI Genitourinary: No symptoms reported Male Genitourinary: No symptoms reported Musculoskeletal: No symptoms reported Skin: No symptoms reported Hematologic/Lymphatic: No symptoms reported Neurological/Psychological: Weakness Physical Exam - Vital signs Vitals: Pulse Resp BP Pulse Ox 79 22 H 101/60 100 05/16/17 19:53 05/16/17 19:53 05/16/17 19:53 05/16/17 19:53 - Notes Notes: PHYSICAL EXAMINATION: GENERAL: Cachectic, ill-appearing. HEAD: Atraumatic, normocephalic. EYES: Pupils equal round and reactive to light, extraocular movements intact, sclera anicteric, conjunctiva are normal. ENT: Nares patent, oropharynx clear without exudates. Moist mucous membranes. NECK: Normal range of motion, supple without lymphadenopathy LUNGS: Breath sounds clear to auscultation bilaterally and equal. No wheezes rales or rhonchi. HEART: Regular rate and rhythm without murmurs ABDOMEN: Soft, mild generalized tenderness, nondistended abdomen. No guarding, no rebound. No masses appreciated. Musculoskeletal: Normal range of motion, no pitting or edema. No cyanosis. NEUROLOGICAL: Cranial nerves grossly intact. Normal speech. Normal sensory, motor exams PSYCH: Cooperative with flat affect. SKIN: Warm, Dry, normal turgor, no rashes or lesions noted. Course - Re-evaluation Re-evalutation: On initial exam patient is found to be lying on his left side on the stretcher, ill-appearing and cachectic but alert and oriented and able to answer questions. Patient reporting that he has had continuous diarrhea all day. Patient recently discharged from [facility] about 1 week ago after an admission for DKA. Patient lightly tachypneic with a respiratory rate of approximately 24, patient denies any chest pain or shortness of breath. Nursing staff is reporting patient has a rectal temperature of 91. This was confirmed with a repeat check so orders placed for Caty hugger and infusion of warmed IV fluids. Ultrasound-guided IV placed, #20-gauge to left AC 1 attempt as EMS attempted 3 for IV access unsuccessfully. A second line nursing staff will attempt to get a second line. Patient's VBG shows a pH of 6.89 and a PCO2 of 14.3. Chemistry reveals a glucose of 1115, potassium 6.1, BUN 39 and creatinine 2.24. EKG is shows a sinus rhythm with peaked T waves, no ST segment depression or elevation. Chest x-ray is unremarkable. Patient does remain alert and oriented and states that the Reglan helped with his nausea. Consulted Dr. Beach regarding patient's status. Insulin drip initiated rapidly. Patient started on insulin drip and bicarb drip. Initiated broad-spectrum antibiotics for possible sepsis due to leukocytosis and hypothermia. Make contact with Dr. Garcia who agrees to accept patient for admission to the ICU. Hospitalist requested central line placement as peripheral IV lines failing. Central line placed. - Vital Signs Vital signs: Temp Pulse Resp BP Pulse Ox 96.8 F L 79 13 117/68 100 05/17/17 05:15 05/16/17 19:53 05/17/17 02:31 05/17/17 02:31 05/17/17 02:31 - Laboratory Result Diagrams: 05/16/17 20:53 05/17/17 04:25 Laboratory results interpreted by me: 05/16/17 05/16/17 05/16/17 20:53 20:53 20:53 WBC 21.1 H RBC 4.05 L Hgb 10.1 L Hct 36.7 L MCH 24.9 L MCHC 27.5 L RDW 19.2 H Seg Neuts % (Manual) 86 H Lymphocytes % (Manual) 5 L Metamyelocytes % 1 H Abs Neuts (Manual) 19.0 H VBG pH VBG pCO2 VBG HCO3 Sodium 124.6 L Potassium 6.1 H* Chloride 92 L Carbon Dioxide < 5 L* BUN 39 H Creatinine 2.24 H Est GFR ( Amer) 41 L Est GFR (Non-Af Amer) 34 L Glucose 1115 H* Magnesium 2.7 H Alkaline Phosphatase 146 H CK-MB (CK-2) 5.73 H Total Protein 6.2 L Lipase 4928.1 H Urine Protein Urine Glucose (UA) Urine Ketones Urine Blood 05/16/17 05/16/17 20:53 20:53 WBC RBC Hgb Hct MCH MCHC RDW Seg Neuts % (Manual) Lymphocytes % (Manual) Metamyelocytes % Abs Neuts (Manual) VBG pH 6.89 L* VBG pCO2 14.3 L* VBG HCO3 2.7 L Sodium Potassium Chloride Carbon Dioxide BUN Creatinine Est GFR ( Amer) Est GFR (Non-Af Amer) Glucose Magnesium Alkaline Phosphatase CK-MB (CK-2) Total Protein Lipase Urine Protein 30 H Urine Glucose (UA) >=500 H Urine Ketones 20 H Urine Blood SMALL H Procedures - Central Line Right Internal jugular Consent obtained: Yes - verbal Central line pre-insertion: Sterile PPE donned, Chloraprep applied, Sterile drapes applied Central line lumen type: Triple Ultrasound guided: Yes CM at insertion site: 14 Line secured with sutures: Yes Central line post-insertion: Blood return from lumens, Biopatch applied, Sutured , Sterile dressing applied, Position confirmed w/ CXR Number of attempts: 1 Complications: No Notes: Dr Whittaker present for IV insertion. - Additional Procedures IV insertion Additional Procedures: IV insertion - Ultrasound guided IV, #20 g to LAC x1 attempt Critical Care Note - Critical Care Note Total time excluding time spent on procedures (mins): 45 Comments: 45 minutes of critical care time spent in direct contact evaluating and reevaluating the patient, treating symptoms, reviewing labs and studies and speaking with consultants excluding any procedures Discharge - Discharge Clinical Impression: DKA (diabetic ketoacidoses) Qualifiers: Diabetes mellitus type: type 1 Diabetes mellitus complication detail: without coma Qualified Code(s): E10.10 - Type 1 diabetes mellitus with ketoacidosis without coma Vomiting Qualifiers: Vomiting type: unspecified Vomiting Intractability: unspecified Nausea presence : with nausea Qualified Code(s): R11.2 - Nausea with vomiting, unspecified Acute renal failure Qualifiers: Acute renal failure type: unspecified Qualified Code(s): N17.9 - Acute kidney failure, unspecified Condition: Serious Disposition: ADMITTED INPATIENT Admitting Provider: Hospitalist Unit Admitted: ICU
--- NOTE | 2017-05-16 20:50 | RADIOLOGY REPORT (SQ) ---
EXAM DESCRIPTION: CHEST SINGLE VIEW COMPLETED DATE/TIME: 05/16/2017 8:40 pm REASON FOR STUDY: hypothermia COMPARISON: 05/09/2017. EXAM PARAMETERS: NUMBER OF VIEWS: One view. TECHNIQUE: Single frontal radiographic view of the chest acquired. RADIATION DOSE: NA LIMITATIONS: None. FINDINGS: LUNGS AND PLEURA: No opacities, masses or pneumothorax. No pleural effusion. MEDIASTINUM AND HILAR STRUCTURES: No masses. Contour normal. HEART AND VASCULAR STRUCTURES: Heart normal in size. Normal vasculature. BONES: No acute findings. HARDWARE: None in the chest. OTHER: No other significant finding. IMPRESSION: NO ACUTE RADIOGRAPHIC FINDING IN THE CHEST. TECHNICAL DOCUMENTATION: JOB ID: [id number] [employer]- All Rights Reserved Reading location - IP/workstation name: [email or web address]
[2017-05-16 21:06] LABS: VENOUS BLOOD BASE EXCESS -28.8 mmol/L; VENOUS BLOOD HCO3 2.7 mmol/L (20-32)
[2017-05-16 21:11] LABS: VENOUS BLOOD PCO2 14.3 mmHg (35-63); VENOUS BLOOD PH 6.89 (7.30-7.42)
[2017-05-16] MEDS ORDERED: DEXTROSE 5%-WATER 1000 ML 1,000 ML with SODIUM BICARBONATE 150 MEQ IV PRN ×2 (21:12)
[2017-05-16] MEDS ORDERED: SODIUM BICARBONATE 8.4% INJ 50 MEQ/50 ML DISP.SYRIN IV ONE ×2 (21:13→21:45)
[2017-05-16 21:21] LABS: ALANINE AMINOTRANSFERASE 48 U/L (21-72); ALBUMIN 3.9 g/dL (3.5-5.0); ALKALINE PHOSPHATASE 146 U/L (38-126); ASPARTATE AMINO TRANSFERASE 22 U/L (17-59); BILIRUBIN,DIRECT 0.2 mg/dL (0.0-0.4); BILIRUBIN,TOTAL 0.2 mg/dL (0.2-1.3); BLOOD UREA NITROGEN 39 mg/dL (7-20); CALCIUM 9.6 mg/dL (8.4-10.2); CHLORIDE 92 mmol/L (98-107); CREATINE KINASE 83 U/L (55-170); SODIUM 124.6 mmol/L (137-145); TOTAL PROTEIN 6.2 g/dL (6.3-8.2)
[2017-05-16 21:22] LABS: HEMATOCRIT 36.7 % (37.9-51.0); HEMOGLOBIN 10.1 g/dL (13.5-17.0); MEAN CORPUSCULAR HEMOGLOBIN 24.9 pg (27.0-33.4); MEAN CORPUSCULAR HGB CONC 27.5 g/dL (32.0-36.0); PLATELET COUNT 339 10^3/uL (150-450); RED BLOOD COUNT 4.05 10^6/uL (4.35-5.55); RED CELL DISTRIBUTION WIDTH 19.2 % (11.5-14.0); WHITE BLOOD COUNT 21.1 10^3/uL (4.0-10.5)
[2017-05-16] MEDS ORDERED: PIPERACILLIN/TAZOBACTAM 4.5 GM VIAL IV ONE (21:23)
[2017-05-16 21:33] LABS: CREATINE KINASE MB 5.73 ng/mL (<4.55); TROPONIN I < 0.012 ng/mL
[2017-05-16 21:38] LABS: APPEARANCE,URINE SLIGHTLY-CLOUDY; BILIRUBIN,URINE NEGATIVE (NEGATIVE); COLOR,URINE STRAW; GLUCOSE, URINE >=500 mg/dL (NEGATIVE); KETONES,URINE 20 mg/dL (NEGATIVE); LEUKOCYTE ESTERASE,URINE NEGATIVE (NEGATIVE); NITRITE,URINE NEGATIVE (NEGATIVE); PROTEIN,URINE 30 mg/dL (NEGATIVE); URINE SPECIFIC GRAVITY 1.023; UROBILINOGEN,URINE NEGATIVE mg/dL (<2.0)
[2017-05-16] MEDS ORDERED: SODIUM BICARBONATE 8.4% INJ 50 MEQ/50 ML DISP.SYRIN ONE (21:40)
[2017-05-16 21:42] LABS: POTASSIUM 6.1 mmol/L (3.6-5.0)
[2017-05-16 21:43] LABS: CARBON DIOXIDE < 5 mmol/L (22-30); GLUCOSE 1115 mg/dL (75-110)
[2017-05-16 21:48] LABS: URINE AMPHETAMINES SCREEN NEGATIVE; URINE BARBITURATES SCREEN NEGATIVE; URINE BENZODIAZEPINES SCREEN NEGATIVE; URINE COCAINE SCREEN UNCONFIRMED POSITIVE; URINE MARIJUANA (THC) SCREEN NEGATIVE; URINE METHADONE SCREEN NEGATIVE; URINE PHENCYCLIDINE SCREEN NEGATIVE
[2017-05-16 21:53] LABS: LIPASE 4928.1 U/L (23-300)
[2017-05-16 21:58] LABS: MEAN CORPUSCULAR VOLUME 91 fl (80-97)
[2017-05-16 22:01] LABS: ABSOLUTE LYMPHOCYTES# (MANUAL) 1.1 10^3/uL (0.5-4.7); ABSOLUTE MONOCYTES # (MANUAL) 1.1 10^3/uL (0.1-1.4); BAND NEUTROPHILS % (MANUAL) 3 % (3-5); BASOPHILS % (MANUAL) 0 % (0-2); EOSINOPHILS % (MANUAL) 0 % (0-6); LYMPHOCYTES % (MANUAL) 5 % (13-45); METAMYELOCYTES % (MANUAL) 1 % (0); MONOCYTES % (MANUAL) 5 % (3-13); SEGMENTED NEUTROPHILS % (MAN) 86 % (42-78); TOTAL CELLS COUNTED 100
[2017-05-16] MEDS ORDERED: INSULIN REG, HUMAN 100 UNIT/ML 3 ML VIAL (PYX) ONE (22:02)
[2017-05-16 22:04] LABS: ACANTHOCYTES SLIGHT; ANISOCYTOSIS 2+; BURR CELLS SLIGHT; OVALOCYTES 1+; PLATELET COMMENT ADEQUATE; POIKILOCYTOSIS 2+; TOXIC GRANULATION 1+; TOXIC VACUOLATION PRESENT
[2017-05-16] MEDS ORDERED: NORMAL SALINE 1000 ML 1,000 ML IV PRN (22:48)
[2017-05-16] MEDS ORDERED: DEXTROSE 40% GEL 15 GM TUBE PO PRN ×2 (22:52)
[2017-05-16] MEDS ORDERED: DEXTROSE 50%-WATER 25 GM/50 ML DISP.SYRIN IV PRN ×2 (22:52)
[2017-05-16] MEDS ORDERED: GLUCAGON,HUMAN RECOMB 1 MG INJ IM PRN (22:52)
[2017-05-16] MEDS ORDERED: PIPERACILLIN/TAZOBACTAM 4.5 GM VIAL IV PRN (22:57)
[2017-05-16] MEDS ORDERED: VANCOMYCIN HCL 0 MG in DEXTROSE 5%-WATER 250 ML IV NR (23:00)
[2017-05-16] MEDS ORDERED: FAMOTIDINE INJ/PF 20 MG/2 ML SDV IV ONE (23:00)
--- NOTE | 2017-05-16 23:06 | PDOC H&P ---
History of Present Illness Admission Date/PCP: 05/16/17 22:34 History of Present Illness: CHESTER MCKEON is a 37 year old black male patient brought by EMS for high blood sugar. Since patient is somewhat sedated and difficult to awaken him, history is obtained from chart review and ER attending note. Patient is well- known to the hospitalist service because of his recurrent admission for DKA and her last discharge was a week ago with the same problems. On arrival patient was found to be hypothermic with temperature of 91. His initial blood work shows severe hyperglycemia with blood sugar of 1115, bicarb less than 5, potassium of 6.1, sodium of 124 and white cell count of 21,000 and drug urine screen is positive for cocaine. His lipase is also markedly elevated which is 4928 but the patient does not have any complaints of abdominal pain per ER attending note, we will check his lipase level in the morning and will request ultrasound of the abdomen or CT. Patient has been started on aggressive hydration, insulin drip and for his hypothermia he was put on bear hug. Detailed history and review of systems is unobtainable. Past Medical History Cardiac Medical History: Reports: Hyperlipidema - On no medication for same., Hypertension - Taken off medication for same. Denies: Atrial Fibrillation, Congestive Heart Failure, Coronary Artery Disease, Myocardial Infarction, Pulmonary Embolism Pulmonary Medical History: Denies: Asthma, Chronic Obstructive Pulmonary Disease (COPD), Sleep Apnea Neurological Medical History: Denies: Seizures Endocrine Medical History: Reports: Diabetes Mellitus Type 1 Denies: Diabetes Mellitus Type 2, Hyperthyroidism, Hypothyroidism GI Medical History: Reports: Gastroesophageal Reflux Disease Denies: Cirrhosis, Hepatitis Musculoskeltal Medical History: Denies: Arthritis Psychiatric Medical History: Reports: Depression Hematology: Reports: Anemia - Chronic illnesses Past Surgical History Past Surgical History: Reports: Orthopedic Surgery - back Denies: Appendectomy, Cholecystectomy, Tonsillectomy Social History Smoking Status: Current Some Day Smoker Frequency of Alcohol Use: None Hx Recreational Drug Use: No Drugs: Cocaine, Marijuana Hx Prescription Drug Abuse: Yes Family History Family History: DM, Hyperlipidemia, Hypertension Parental Family History Reviewed: Yes Children Family History Reviewed: Yes Sibling(s) Family History Reviewed.: Yes Medication/Allergy Home Medications: Insulin Glargine,Hum.rec.anlog [Lantus Solostar] 18 unit SQ Q12 05/09/17 Oxycodone HCl/Acetaminophen [Percocet 5-325 mg Tablet] 1 tab PO Q6HP PRN #30 tablet 05/11/17 Pantoprazole Sodium [Protonix] 40 mg PO BIDBS #60 tablet. 05/11/17 Promethazine HCl [Phenergan 25 mg Tablet] 25 mg PO Q6HP PRN #30 tablet 05/11/17 Allergies/Adverse Reactions: ondansetron [From Zofran (as hydrochloride)] Allergy (Verified 05/06/17 12:35) Review of Systems ROS unobtainable: Due to mental status Physical Exam Vital Signs: Temp Pulse Resp BP Pulse Ox 79 17 102/69 100 05/16/17 19:53 05/16/17 22:57 05/16/17 22:57 05/16/17 22:57 Intake & Output 05/15/17 05/16/17 05/17/17 06:59 06:59 06:59 Weight 59.9 kg General appearance: PRESENT: no acute distress Head exam: PRESENT: atraumatic Eye exam: PRESENT: conjunctiva pink Mouth exam: PRESENT: dry mucosa Respiratory exam: PRESENT: clear to auscultation alfonso. ABSENT: rales, rhonchi, wheezes Cardiovascular exam: PRESENT: RRR. ABSENT: diastolic murmur, rubs, systolic murmur GI/Abdominal exam: PRESENT: normal bowel sounds, soft. ABSENT: distended, guarding, mass, organolmegaly, rebound, tenderness Psychiatric exam: PRESENT: other - Sedated Results Impressions: Chest X-Ray 05/16/17 20:16 IMPRESSION: NO ACUTE RADIOGRAPHIC FINDING IN THE CHEST. Assessment & Plan - Diagnosis (1) DKA (diabetic ketoacidoses) Qualifiers: Diabetes mellitus type: type 1 Diabetes mellitus complication detail: without coma Qualified Code(s): E10.10 - Type 1 diabetes mellitus with ketoacidosis without coma Is this a current diagnosis for this admission?: Yes Plan: 1, admit to ICU. Aggressive hydration with normal saline at rate of 200 mL/h and switch to D5 and half saline when blood sugar drops 250. Insulin drip per and protocol BNP every 1 hour (2) Sepsis Qualifiers: Sepsis type: sepsis due to unspecified organism Qualified Code(s): A41.9 - Sepsis, unspecified organism Is this a current diagnosis for this admission?: Yes Plan: Patient has hypothermia, leukocytosis and elevated lactic acid. Has been started on vancomycin and Zosyn. Check his lactic acid level in the morning - Time Time Spent: 30 to 50 Minutes - 4-5 days - Inpatient Certification Medical Necessity: Need for IV Antibiotics
[2017-05-17] MEDS: NORMAL SALINE 100 ML with INSULIN REGULAR, HUMAN 100 UNIT IV PRN ×4 (00:29→08:00)
[2017-05-17 01:15] LABS: BLOOD UREA NITROGEN 40 mg/dL (7-20); CALCIUM 8.8 mg/dL (8.4-10.2); CHLORIDE 97 mmol/L (98-107); SODIUM 130.2 mmol/L (137-145)
[2017-05-17 01:45] LABS: GLUCOSE 952 mg/dL (75-110); POTASSIUM 4.4 mmol/L (3.6-5.0)
[2017-05-17 01:47] LABS: CARBON DIOXIDE < 5 mmol/L (22-30)
[2017-05-17] MEDS ORDERED: VANCOMYCIN HCL INJ 1000 MG VIAL IV PRN (01:53)
[2017-05-17] MEDS ORDERED: MORPHINE SULFATE 10 MG/ML INJ ONE (01:57)
[2017-05-17] MEDS ORDERED: ONDANSETRON HCL INJ/PF 4 MG/2 ML SDV ONE (01:57)
[2017-05-17] MEDS ORDERED: VANCOMYCIN HCL 1,000 MG in DEXTROSE 5%-WATER 250 ML IV ONE (02:00)
[2017-05-17] MEDS ORDERED: PROMETHAZINE HCL INJ 25 MG/1 ML VIAL ONE (02:05)
[2017-05-17 02:19] LABS: BLOOD UREA NITROGEN 40 mg/dL (7-20); CALCIUM 8.8 mg/dL (8.4-10.2); CHLORIDE 99 mmol/L (98-107); SODIUM 132.7 mmol/L (137-145)
[2017-05-17 02:34] LABS: GLUCOSE 859 mg/dL (75-110)
[2017-05-17 02:35] LABS: CARBON DIOXIDE < 5 mmol/L (22-30)
[2017-05-17] MEDS ORDERED: PROMETHAZINE HCL INJ 25 MG/1 ML VIAL IM ONE (02:45)
[2017-05-17] MEDS ORDERED: MORPHINE SULFATE 10 MG/ML INJ IV ONE (03:00)
[2017-05-17] MEDS ORDERED: PIPERACILLIN SODIUM/TAZOBACTAM 4.5 GM in NORMAL SALINE 100 ML IV SCH ×6 (03:00→12:00)
--- NOTE | 2017-05-17 03:39 | RADIOLOGY REPORT (SQ) ---
EXAM DESCRIPTION: CHEST SINGLE VIEW CLINICAL HISTORY: post central line placement COMPARISON: 05/16/2017 FINDINGS: Single frontal view of the chest. Right IJ central venous catheter placement with tip in the mid right atrium. Heart is not enlarged. No pneumothorax, pleural effusion, or consolidation. Low lung volumes. No displaced rib fractures identified. Upper abdominal soft tissues are unremarkable. IMPRESSION: 1. Interval placement of right IJ central venous catheter with tip in the mid right atrium. Consider retracting 2 to 3 cm.
--- NOTE | 2017-05-17 04:56 | RADIOLOGY REPORT (SQ) ---
EXAM DESCRIPTION: CHEST SINGLE VIEW CLINICAL HISTORY: 37 years Male, central line pulled adjusted COMPARISON: 4.9.18 NUMBER OF VIEWS/TECHNIQUE: 1/AP LIMITATIONS: None. FINDINGS: Tip of a right jugular central line is at the proximal right atrium. Clear lung boss of moderate volume. Normal cardiac silhouette. No pneumothorax. No acute bone defect. IMPRESSION: No acute cardiopulmonary findings. Central line.
[2017-05-17] MEDS ORDERED: PIPERACILLIN/TAZOBACTAM 4.5 GM VIAL IV ONE (05:03)
[2017-05-17 05:11] LABS: BLOOD UREA NITROGEN 39 mg/dL (7-20); CALCIUM 9.1 mg/dL (8.4-10.2); POTASSIUM 3.4 mmol/L (3.6-5.0)
[2017-05-17 05:17] LABS: CARBON DIOXIDE 14 mmol/L (22-30); CHLORIDE 101 mmol/L (98-107); SODIUM 134.6 mmol/L (137-145)
[2017-05-17 05:22] LABS: ANION GAP 20 (5-19)
[2017-05-17 05:27] LABS: GLUCOSE 631 mg/dL (75-110)
[2017-05-17 06:25] LABS: ALANINE AMINOTRANSFERASE 40 U/L (21-72); ALBUMIN 3.1 g/dL (3.5-5.0); ALKALINE PHOSPHATASE 104 U/L (38-126); ANION GAP 17 (5-19); ASPARTATE AMINO TRANSFERASE 19 U/L (17-59); BILIRUBIN,DIRECT 0.2 mg/dL (0.0-0.4); BILIRUBIN,TOTAL 0.3 mg/dL (0.2-1.3); BLOOD UREA NITROGEN 38 mg/dL (7-20); CALCIUM 8.8 mg/dL (8.4-10.2); CARBON DIOXIDE 16 mmol/L (22-30); CHLORIDE 102 mmol/L (98-107); POTASSIUM 3.3 mmol/L (3.6-5.0); SODIUM 134.6 mmol/L (137-145); TOTAL PROTEIN 5.1 g/dL (6.3-8.2)
[2017-05-17 06:39] LABS: GLUCOSE 564 mg/dL (75-110)
[2017-05-17 06:49] LABS: HEMATOCRIT 25.5 % (37.9-51.0); HEMOGLOBIN 8.2 g/dL (13.5-17.0); MEAN CORPUSCULAR HEMOGLOBIN 25.1 pg (27.0-33.4); MEAN CORPUSCULAR HGB CONC 32.3 g/dL (32.0-36.0); PLATELET COUNT 295 10^3/uL (150-450); RED BLOOD COUNT 3.27 10^6/uL (4.35-5.55); RED CELL DISTRIBUTION WIDTH 17.8 % (11.5-14.0); WHITE BLOOD COUNT 20.6 10^3/uL (4.0-10.5)
[2017-05-17 06:52] LABS: MEAN CORPUSCULAR VOLUME 78 fl (80-97)
[2017-05-17 06:57] LABS: LIPASE 6793.3 U/L (23-300)
[2017-05-17 07:02] LABS: ABSOLUTE LYMPHOCYTES# (MANUAL) 2.3 10^3/uL (0.5-4.7); ABSOLUTE NEUTROPHILS# (MANUAL) 17.3 10^3/uL (1.7-8.2); BASOPHILS % (MANUAL) 0 % (0-2); EOSINOPHILS % (MANUAL) 0 % (0-6); LYMPHOCYTES % (MANUAL) 11 % (13-45); MONOCYTES % (MANUAL) 5 % (3-13); SEGMENTED NEUTROPHILS % (MAN) 84 % (42-78); TOTAL CELLS COUNTED 100
[2017-05-17 07:05] LABS: ANISOCYTOSIS 2+; HYPOCHROMASIA SLIGHT; PLATELET COMMENT ADEQUATE; POIKILOCYTOSIS SLIGHT; SCHISTOCYTES SLIGHT
[2017-05-17 07:25] LABS: ANION GAP 14 (5-19); BLOOD UREA NITROGEN 38 mg/dL (7-20); CALCIUM 8.6 mg/dL (8.4-10.2); CARBON DIOXIDE 19 mmol/L (22-30); CHLORIDE 103 mmol/L (98-107); POTASSIUM 3.3 mmol/L (3.6-5.0); SODIUM 135.7 mmol/L (137-145)
[2017-05-17 07:37] LABS: GLUCOSE 496 mg/dL (75-110)
[2017-05-17] MEDS ORDERED: INSULIN REG, HUMAN 100 UNIT/ML 3 ML VIAL (PYX) ONE (07:46)
[2017-05-17] MEDS ORDERED: POTASSI CL 40 MEQ/NS 1L 1,000 ML IV PRN (08:21)
[2017-05-17] MEDS ORDERED: DEXTROSE 40% GEL 15 GM TUBE PO PRN ×4 (08:24→12:14)
[2017-05-17] MEDS ORDERED: DEXTROSE 50%-WATER 25 GM/50 ML DISP.SYRIN IV PRN ×4 (08:24→12:14)
[2017-05-17] MEDS ORDERED: GLUCAGON,HUMAN RECOMB 1 MG INJ SUBCUT PRN (08:24)
[2017-05-17] MEDS ORDERED: FAMOTIDINE INJ/PF 20 MG/2 ML SDV IV SCH (10:00)
[2017-05-17] MEDS: ENOXAPARIN SODIUM INJ 40 MG/0.4 ML DISP.SYRIN SUBCUT SCH (10:21)
[2017-05-17 11:41] LABS: ANION GAP 5 (5-19); BLOOD UREA NITROGEN 39 mg/dL (7-20); CALCIUM 8.9 mg/dL (8.4-10.2); CARBON DIOXIDE 25 mmol/L (22-30); CHLORIDE 108 mmol/L (98-107); GLUCOSE 236 mg/dL (75-110); POTASSIUM 3.4 mmol/L (3.6-5.0); SODIUM 138.2 mmol/L (137-145)
[2017-05-17] MEDS ORDERED: INSULIN GLARGINE,HUM.REC.ANLOG 1,000 UNIT/10 ML UNIT SUBCUT SCH ×2 (12:00→22:00)
[2017-05-17] MEDS ORDERED: GLUCAGON,HUMAN RECOMB 1 MG INJ IM PRN (12:14)
[2017-05-17] MEDS ORDERED: INSULIN GLARGINE,HUM.REC.ANLOG 300 UNIT/3 ML INSULN.PEN SUBCUT SCH (12:15)
[2017-05-17] MEDS: PROMETHAZINE HCL INJ 25 MG/1 ML VIAL IM PRN (13:14)
--- NOTE | 2017-05-17 13:34 | EKG REPORT ---
SEVERITY:- ABNORMAL ECG - SINUS RHYTHM NONSPECIFIC INTRAVENTRICULAR CONDUCTION DELAY : Confirmed by: Juan Pablo Holm MD 17-May-2017 13:34:14
[2017-05-17] MEDS ORDERED: INSULIN GLARGINE,HUM.REC.ANLOG 1,000 UNIT/10 ML UNIT SUBCUT ONE (14:00)
[2017-05-17] MEDS ORDERED: POTASSIUM CHLORIDE 10 MEQ CAPSULE.ER PO ONE (14:00)
[2017-05-17] MEDS: DEXTROSE 5% IV PRN ×4 (15:58→21:52)
[2017-05-17] MEDS: 1/2 NORMAL SALINE IV PRN ×4 (15:58→21:52)
[2017-05-17] MEDS: POTASSIUM CHLORIDE IV PRN ×4 (15:58→21:52)
--- NOTE | 2017-05-17 17:14 | PDOC PROGRESS REPORT ---
Subjective Progress Note for:: 05/17/17 Subjective:: Patient states that came in because his sugar was not right. Accordingly he had been taking his medications. Patient made aware that he had been in here under similar circumstances. patient complains of being thirsty Review of system all organ systems evaluated and negative except as in subjective All significant laboratories and diagnostics have been reviewed Reason For Visit: DKA, SEPSIS Physical Exam Vital Signs: Temp Pulse Resp BP Pulse Ox 96.8 F L 79 12 92/58 L 100 05/17/17 06:36 05/16/17 19:53 05/17/17 07:01 05/17/17 07:01 05/17/17 07:01 Intake & Output 05/16/17 05/17/17 05/18/17 06:59 06:59 06:59 Output Total 1250 Balance -1250 Weight 59.9 kg General appearance: PRESENT: cooperative, thin, other - Ketones smell Head exam: PRESENT: atraumatic, normocephalic Eye exam: PRESENT: conjunctiva pink, EOMI, PERRLA Ear exam: PRESENT: normal external ear exam Mouth exam: PRESENT: moist Neck exam: PRESENT: full ROM. ABSENT: JVD, lymphadenopathy, tenderness Respiratory exam: PRESENT: clear to auscultation alfonso Cardiovascular exam: PRESENT: RRR. ABSENT: diastolic murmur, systolic murmur Vascular exam: PRESENT: normal capillary refill GI/Abdominal exam: PRESENT: normal bowel sounds, soft. ABSENT: tenderness Extremities exam: PRESENT: full ROM. ABSENT: pedal edema Musculoskeletal exam: PRESENT: ambulatory Neurological exam: PRESENT: alert, awake, oriented to person, oriented to place , oriented to time, oriented to situation, CN II-XII grossly intact Psychiatric exam: PRESENT: appropriate affect, normal mood Skin exam: PRESENT: intact, normal color Results Laboratory Results: 05/17/17 06:20 05/17/17 05/17/17 05/17/17 00:35 00:35 01:35 WBC RBC Hgb Hct MCV MCH MCHC RDW Plt Count Seg Neutrophils % Lymphocytes % Monocytes % Eosinophils % Basophils % Absolute Neutrophils Absolute Lymphocytes Absolute Monocytes Absolute Eosinophils Absolute Basophils Sodium 130.2 L 132.7 L Potassium 4.4 D 4.0 Chloride 97 L 99 Carbon Dioxide < 5 L* < 5 L* Anion Gap Not Reportable Not Reportable BUN 40 H 40 H Creatinine 1.89 H 1.92 H Est GFR ( Amer) 49 L 48 L Est GFR (Non-Af Amer) 41 L 40 L Glucose 952 H* 859 H* Lactic Acid 1.4 Calcium 8.8 8.8 Total Bilirubin AST ALT Alkaline Phosphatase Total Protein Albumin Lipase 05/17/17 05/17/17 05/17/17 04:25 05:50 06:20 WBC 20.6 H RBC 3.27 L Hgb 8.2 L Hct 25.5 L MCV 78 L D MCH 25.1 L MCHC 32.3 RDW 17.8 H Plt Count 295 Seg Neutrophils % Not Reportable Lymphocytes % Not Reportable Monocytes % Not Reportable Eosinophils % Not Reportable Basophils % Not Reportable Absolute Neutrophils Not Reportable Absolute Lymphocytes Not Reportable Absolute Monocytes Not Reportable Absolute Eosinophils Not Reportable Absolute Basophils Not Reportable Sodium 134.6 L 134.6 L Potassium 3.4 L 3.3 L Chloride 101 102 Carbon Dioxide 14 L 16 L Anion Gap 20 H 17 BUN 39 H 38 H Creatinine 1.76 H 1.81 H Est GFR ( Amer) 54 L 52 L Est GFR (Non-Af Amer) 44 L 43 L Glucose 631 H* 564 H* Lactic Acid Calcium 9.1 8.8 Total Bilirubin 0.3 AST 19 ALT 40 Alkaline Phosphatase 104 Total Protein 5.1 L Albumin 3.1 L Lipase 6793.3 H 05/17/17 07:00 WBC RBC Hgb Hct MCV MCH MCHC RDW Plt Count Seg Neutrophils % Lymphocytes % Monocytes % Eosinophils % Basophils % Absolute Neutrophils Absolute Lymphocytes Absolute Monocytes Absolute Eosinophils Absolute Basophils Sodium 135.7 L Potassium 3.3 L Chloride 103 Carbon Dioxide 19 L Anion Gap 14 BUN 38 H Creatinine 1.69 H Est GFR ( Amer) 56 L Est GFR (Non-Af Amer) 46 L Glucose 496 H* Lactic Acid Calcium 8.6 Total Bilirubin AST ALT Alkaline Phosphatase Total Protein Albumin Lipase Impressions: Chest X-Ray 05/17/17 04:13 IMPRESSION: No acute cardiopulmonary findings. Central line. Assessment & Plan - Diagnosis (1) Acute renal failure Qualifiers: Acute renal failure type: unspecified Qualified Code(s): N17.9 - Acute kidney failure, unspecified Is this a current diagnosis for this admission?: Yes Plan: Will keep trending. Concern there is chronic component on this patient (2) DKA (diabetic ketoacidoses) Qualifiers: Diabetes mellitus type: type 1 Diabetes mellitus complication detail: without coma Qualified Code(s): E10.10 - Type 1 diabetes mellitus with ketoacidosis without coma Is this a current diagnosis for this admission?: Yes Plan: Gap closed. Will transition patient to Lantus, the meal Humalog and Humalog sliding scale. Will change fluids to provide potassium supplementation (3) Polysubstance abuse Is this a current diagnosis for this admission?: Yes Plan: Educated about quitting (4) Sepsis Qualifiers: Sepsis type: sepsis due to unspecified organism Qualified Code(s): A41.9 - Sepsis, unspecified organism Is this a current diagnosis for this admission?: No Plan: Hypo-thermia, lactic acidosis and leukocytosis just basically related to DKA will discontinue IV antibiotics (5) Hypokalemia Is this a current diagnosis for this admission?: Yes Plan: To supplement via IV and p.o. To trend (6) Pancreatitis Qualifiers: Chronicity: acute Acute pancreatitis complication: unspecified Is this a current diagnosis for this admission?: Yes Plan: Likely due to inflammation of pancreas in the setting of DKA. To order lipase in a.m. (7) Anemia Qualifiers: Anemia type: unspecified type Qualified Code(s): D64.9 - Anemia, unspecified Is this a current diagnosis for this admission?: Yes Plan: Order anemia panel. No obvious signs of bleeding - Time Time Spent with patient: 15-24 minutes Medications reviewed and adjusted accordingly: Yes Anticipated discharge: Home Within: within 48 hours - Inpatient Certification Based on my medical assessment, after consideration of the patient's comorbidities, presenting symptoms, or acuity I expect that the services needed warrant INPATIENT care.: Yes I certify that my determination is in accordance with my understanding of Medicare's requirements for reasonable and necessary INPATIENT services [42 CFR 412.3e].: Yes Medical Necessity: Need Close Monitoring Due to Risk of Patient Decompensation, Need For IV Fluids, Need For Continuous Telemetry Monitoring
[2017-05-17] MEDS ORDERED: ACETAMINOPHEN 325 MG TABLET PO PRN (17:23)
[2017-05-17] MEDS: INSULIN LISPRO 100 UNIT/ML 3 ML VIAL SUBCUT PRN ×2 (18:31→21:49)
[2017-05-17] MEDS: INSULIN LISPRO 100 UNIT/ML 3 ML VIAL SUBCUT SCH (18:32)
[2017-05-17] MEDS ORDERED: FENTANYL 12 MCG/HR PATCH.TD72 TD ONE (22:00)
[2017-05-18] MEDS ORDERED: INSULIN LISPRO 100 UNIT/ML 3 ML VIAL SUBCUT ONE (00:30)
[2017-05-18] MEDS ORDERED: NORMAL SALINE 1000 ML 1,000 ML IV PRN (05:32)
[2017-05-18 05:52] LABS: ABSOLUTE BASOPHILS # (AUTO) 0.1 10^3/uL (0.0-0.2); ABSOLUTE LYMPHOCYTES (AUTO) 1.3 10^3/uL (0.5-4.7); ABSOLUTE MONOCYTES (AUTO) 1.3 10^3/uL (0.1-1.4); ABSOLUTE NEUT (AUTO) 12.1 10^3/uL (1.7-8.2); ABSOLUTE RETICS # 0.075 10^6/uL (0.028-0.122); BASOPHILS % (AUTO) 0.7 % (0-2); EOSINOPHILS % (AUTO) 0.3 % (0-6); HEMATOCRIT 24.2 % (37.9-51.0); LYMPHOCYTES % (AUTO) 8.7 % (13-45); MEAN CORPUSCULAR HEMOGLOBIN 25.3 pg (27.0-33.4); MEAN CORPUSCULAR HGB CONC 32.4 g/dL (32.0-36.0); MEAN CORPUSCULAR VOLUME 78 fl (80-97); MONOCYTES % (AUTO) 8.7 % (3-13); PLATELET COUNT 234 10^3/uL (150-450); RED CELL DISTRIBUTION WIDTH 18.6 % (11.5-14.0); RETICULOCYTE COUNT (AUTO) 2.42 % (0.66-2.85); SEGMENTED NEUTROPHILS % (AUTO) 81.6 % (42-78); TOTAL CELLS COUNTED % (AUTO) 100 %; WHITE BLOOD COUNT 14.8 10^3/uL (4.0-10.5)
[2017-05-18 05:54] LABS: HEMOGLOBIN 7.8 g/dL (13.5-17.0)
[2017-05-18] MEDS: INSULIN LISPRO 100 UNIT/ML 3 ML VIAL SUBCUT PRN (06:07)
[2017-05-18 06:15] LABS: ALANINE AMINOTRANSFERASE 37 U/L (21-72); ALBUMIN 2.6 g/dL (3.5-5.0); ALKALINE PHOSPHATASE 97 U/L (38-126); ASPARTATE AMINO TRANSFERASE 23 U/L (17-59); BLOOD UREA NITROGEN 31 mg/dL (7-20); CALCIUM 8.9 mg/dL (8.4-10.2); GLUCOSE 338 mg/dL (75-110); IRON(TIBC) 17.3 ug/dL (49-181); TOTAL PROTEIN 4.7 g/dL (6.3-8.2)
[2017-05-18 06:23] LABS: CARBON DIOXIDE 21 mmol/L (22-30); CHLORIDE 112 mmol/L (98-107); SODIUM 136.3 mmol/L (137-145)
[2017-05-18 06:51] LABS: ANION GAP 3 (5-19); BILIRUBIN,TOTAL < 0.1 mg/dL (0.2-1.3); LIPASE 12239.8 U/L (23-300)
[2017-05-18 07:03] LABS: POTASSIUM 5.2 mmol/L (3.6-5.0)
[2017-05-18 07:06] LABS: HEMATOCRIT 24.5 % (37.9-51.0); HEMOGLOBIN 8.1 g/dL (13.5-17.0); MEAN CORPUSCULAR HEMOGLOBIN 25.6 pg (27.0-33.4); MEAN CORPUSCULAR VOLUME 78 fl (80-97); PLATELET COUNT 232 10^3/uL (150-450); RED BLOOD COUNT 3.16 10^6/uL (4.35-5.55); RED CELL DISTRIBUTION WIDTH 18.5 % (11.5-14.0); WHITE BLOOD COUNT 13.3 10^3/uL (4.0-10.5)
[2017-05-18 07:22] LABS: FOLATE 6.22 ng/mL (>2.76)
[2017-05-18] MEDS: INSULIN LISPRO 100 UNIT/ML 3 ML VIAL SUBCUT SCH (07:59)
[2017-05-18] MEDS ORDERED: RINGERS SOLUTION 1,000 ML IV PRN ×2 (08:05→08:25)
[2017-05-18] MEDS ORDERED: SODIUM POLYSTYRENE SULFONATE 15 GM/60 ML PO ONE (08:05)
[2017-05-18] MEDS ORDERED: DEXTROSE 40% GEL 15 GM TUBE PO PRN ×2 (08:23)
[2017-05-18] MEDS ORDERED: DEXTROSE 50%-WATER 25 GM/50 ML DISP.SYRIN IV PRN ×2 (08:23)
[2017-05-18] MEDS ORDERED: GLUCAGON,HUMAN RECOMB 1 MG INJ IM PRN (08:23)
[2017-05-18] MEDS ORDERED: NORMAL SALINE 100 ML with INSULIN REGULAR, HUMAN 100 UNIT IV PRN ×2 (08:23)
[2017-05-18 09:03] LABS: PHOSPHORUS 1.7 mg/dL (2.5-4.5)
[2017-05-18] MEDS: PROMETHAZINE HCL INJ 25 MG/1 ML VIAL IM PRN ×3 (09:05→21:50)
[2017-05-18] MEDS: ENOXAPARIN SODIUM INJ 40 MG/0.4 ML DISP.SYRIN SUBCUT SCH (09:05)
--- NOTE | 2017-05-18 09:50 | RADIOLOGY REPORT (SQ) ---
EXAM DESCRIPTION: U/S ABDOMEN COMPLETE W/O DOP COMPLETED DATE/TIME: 05/18/2017 7:21 am REASON FOR STUDY: pancreatitis COMPARISON: Abdominal ultrasound 03/19/2016 TECHNIQUE: Dynamic and static grayscale images acquired of the abdomen and recorded on PACS. Additio nal selected color Doppler and spectral images recorded. LIMITATIONS: Midline bowel gas FINDINGS: PANCREAS: Midline pancreas unremarkable LIVER: Normal size. Echogenic from fatty infiltration or diffuse hepatocellular disease. LIVER VASCULATURE: Normal directional flow of the main portal vein and hepatic veins. GALLBLADDER: No stones. Normal wall thickness. No pericholecystic fluid. ULTRASOUND-DETECTED FRANCO'S SIGN: Negative. INTRAHEPATIC DUCTS AND COMMON DUCT: CBD and intrahepatic ducts normal caliber. No filling defects. INFERIOR VENA CAVA: Normal flow. AORTA: No aneurysm. RIGHT KIDNEY: Normal size. Normal echogenicity. No solid or suspicious masses. No hydronephros is. No calcifications. LEFT KIDNEY: Normal size. Normal echogenicity. No solid or suspicious masses. No hydronephrosi s. No calcifications. SPLEEN: Normal size, 10.1 cm. No solid masses. PERITONEAL AND PLEURAL SPACES: No ascites or effusions. OTHER: No other significant finding. IMPRESSION: Echogenic liver from fatty infiltration or diffuse hepatocellular disease No gallstones, gallbladder wall thickening or pericholecystic fluid. Midline pancreas unremarkable TECHNICAL DOCUMENTATION: JOB ID: [id number]- All Rights Reserved Reading location - IP/workstation name: [email or web address]
[2017-05-18] MEDS ORDERED: INSULIN GLARGINE,HUM.REC.ANLOG 1,000 UNIT/10 ML UNIT SUBCUT SCH ×2 (10:00→22:00)
[2017-05-18] MEDS: RINGERS SOLUTION,LACTATED 1,000 ML IV PRN ×6 (10:10→20:09)
[2017-05-18] MEDS: METOCLOPRAMIDE HCL INJ/PF 10 MG/2 ML SDV IV SCH ×2 (11:03→18:21)
[2017-05-18 12:40] LABS: ANION GAP 6 (5-19); BLOOD UREA NITROGEN 26 mg/dL (7-20); CALCIUM 9.1 mg/dL (8.4-10.2); CARBON DIOXIDE 22 mmol/L (22-30); CHLORIDE 112 mmol/L (98-107); GLUCOSE 114 mg/dL (75-110); SODIUM 139.8 mmol/L (137-145)
[2017-05-18 13:24] LABS: LIPASE 9417.9 U/L (23-300)
[2017-05-18 13:31] LABS: POTASSIUM 4.1 mmol/L (3.6-5.0)
[2017-05-18] MEDS: MORPHINE SULFATE 10 MG/ML INJ IV PRN ×2 (15:25→20:06)
--- NOTE | 2017-05-18 15:52 | PDOC PROGRESS REPORT ---
Subjective Progress Note for:: 05/18/17 Subjective:: Patient complains stomach pain. He was placed on fentanyl patch overnight. He insists that he had been using his insulin. Learn from nurse that is taking care of patient and who was the one that assisted in his discharge that insulin was called to the care clinic however he failed to pick them up. Discussed plan of care with nurse which included an increase fluids and place patient back on insulin drip Review of system all organ systems evaluated and negative except as in subjective All significant laboratories and diagnostics have been reviewed Reason For Visit: DKA, SEPSIS Physical Exam Vital Signs: Temp Pulse Resp BP Pulse Ox 98.1 F 98 10 L 113/76 100 05/18/17 00:00 05/17/17 21:28 05/18/17 03:00 05/18/17 00:09 05/18/17 01:00 Intake & Output 05/16/17 05/17/17 05/18/17 06:59 06:59 06:59 Intake Total 1560 Output Total 1250 Balance -1250 1560 Weight 59.9 kg 60.2 kg General appearance: PRESENT: no acute distress, cooperative, thin Head exam: PRESENT: atraumatic, normocephalic Eye exam: PRESENT: conjunctiva pink, EOMI, PERRLA Ear exam: PRESENT: normal external ear exam Mouth exam: PRESENT: moist Neck exam: PRESENT: full ROM. ABSENT: JVD, lymphadenopathy, tenderness Respiratory exam: PRESENT: clear to auscultation alfonso Cardiovascular exam: PRESENT: RRR. ABSENT: diastolic murmur, systolic murmur Vascular exam: PRESENT: normal capillary refill GI/Abdominal exam: PRESENT: guarding, hypoactive bowel sounds, soft, tenderness Extremities exam: PRESENT: full ROM. ABSENT: pedal edema Musculoskeletal exam: PRESENT: ambulatory Neurological exam: PRESENT: alert, awake, oriented to person, oriented to place , oriented to time, oriented to situation, CN II-XII grossly intact Psychiatric exam: PRESENT: anxious Skin exam: PRESENT: intact, normal color Results Laboratory Results: 05/17/17 06:20 05/17/17 11:00 05/17/17 05/17/17 05/17/17 05:50 06:20 07:00 WBC 20.6 H RBC 3.27 L Hgb 8.2 L Hct 25.5 L MCV 78 L D MCH 25.1 L MCHC 32.3 RDW 17.8 H Plt Count 295 Seg Neutrophils % Not Reportable Lymphocytes % Not Reportable Monocytes % Not Reportable Eosinophils % Not Reportable Basophils % Not Reportable Absolute Neutrophils Not Reportable Absolute Lymphocytes Not Reportable Absolute Monocytes Not Reportable Absolute Eosinophils Not Reportable Absolute Basophils Not Reportable Sodium 134.6 L 135.7 L Potassium 3.3 L 3.3 L Chloride 102 103 Carbon Dioxide 16 L 19 L Anion Gap 17 14 BUN 38 H 38 H Creatinine 1.81 H 1.69 H Est GFR ( Amer) 52 L 56 L Est GFR (Non-Af Amer) 43 L 46 L Glucose 564 H* 496 H* Calcium 8.8 8.6 Total Bilirubin 0.3 AST 19 ALT 40 Alkaline Phosphatase 104 Total Protein 5.1 L Albumin 3.1 L Lipase 6793.3 H 05/17/17 05/17/17 08:04 11:00 WBC RBC Hgb Hct MCV MCH MCHC RDW Plt Count Seg Neutrophils % Lymphocytes % Monocytes % Eosinophils % Basophils % Absolute Neutrophils Absolute Lymphocytes Absolute Monocytes Absolute Eosinophils Absolute Basophils Sodium 138.2 Potassium 3.4 L Chloride 108 H Carbon Dioxide 25 Anion Gap 5 BUN 39 H Creatinine 1.74 H Est GFR ( Amer) 54 L Est GFR (Non-Af Amer) 45 L Glucose 419 H* 236 H Calcium 8.9 Total Bilirubin AST ALT Alkaline Phosphatase Total Protein Albumin Lipase Impressions: Chest X-Ray 05/17/17 04:13 IMPRESSION: No acute cardiopulmonary findings. Central line. Assessment & Plan - Diagnosis (1) Acute renal failure Qualifiers: Acute renal failure type: unspecified Qualified Code(s): N17.9 - Acute kidney failure, unspecified Is this a current diagnosis for this admission?: Yes Plan: Improving with hydration. Concerned there is chronic component on this patient (2) DKA (diabetic ketoacidoses) Qualifiers: Diabetes mellitus type: type 1 Diabetes mellitus complication detail: without coma Qualified Code(s): E10.10 - Type 1 diabetes mellitus with ketoacidosis without coma Is this a current diagnosis for this admission?: Yes Plan: Gap closed. Will place back on insulin drip due to pancreatitis (3) Polysubstance abuse Is this a current diagnosis for this admission?: Yes Plan: Educated about quitting (4) Sepsis Qualifiers: Sepsis type: sepsis due to unspecified organism Qualified Code(s): A41.9 - Sepsis, unspecified organism Is this a current diagnosis for this admission?: No Plan: Hypo-thermia, lactic acidosis and leukocytosis just basically related to DKA. Leukocytosis coming down of antibiotic. (5) Hypokalemia Is this a current diagnosis for this admission?: Yes Plan: Replace and to trend since to be back on insulin drip (6) Pancreatitis Qualifiers: Chronicity: acute Acute pancreatitis complication: unspecified Is this a current diagnosis for this admission?: Yes Plan: Likely due to inflammation of pancreas in the setting of DKA. To put patient back on insulin drip and increase fluid IV rate. Trend. Judicious pain management due to opioid dependence and possibly abuse (7) Anemia Qualifiers: Anemia type: unspecified type Qualified Code(s): D64.9 - Anemia, unspecified Is this a current diagnosis for this admission?: Yes Plan: Order anemia panel. No obvious signs of bleeding - Time Time Spent with patient: 25-34 minutes Medications reviewed and adjusted accordingly: Yes Anticipated discharge: Other Within: within 72 hours - Inpatient Certification Based on my medical assessment, after consideration of the patient's comorbidities, presenting symptoms, or acuity I expect that the services needed warrant INPATIENT care.: Yes I certify that my determination is in accordance with my understanding of Medicare's requirements for reasonable and necessary INPATIENT services [42 CFR 412.3e].: Yes Medical Necessity: Significant Comorbidiites Make Outpatient Treatment Too Risky , Need Close Monitoring Due to Risk of Patient Decompensation, Need For IV Fluids, Need For Continuous Telemetry Monitoring
[2017-05-18 17:08] LABS: ANION GAP 9 (5-19); BLOOD UREA NITROGEN 22 mg/dL (7-20); CALCIUM 8.9 mg/dL (8.4-10.2); CARBON DIOXIDE 21 mmol/L (22-30); CHLORIDE 110 mmol/L (98-107); GLUCOSE 133 mg/dL (75-110); POTASSIUM 3.8 mmol/L (3.6-5.0); SODIUM 139.5 mmol/L (137-145)
[2017-05-18] MEDS: FLUCONAZOLE 100 MG TABLET PO SCH (21:50)
[2017-05-19] MEDS: METOCLOPRAMIDE HCL INJ/PF 10 MG/2 ML SDV IV SCH ×3 (00:03→21:34)
[2017-05-19] MEDS: MORPHINE SULFATE 10 MG/ML INJ IV PRN ×2 (00:08→03:55)
[2017-05-19 04:32] LABS: ABSOLUTE EOSINOPHILS # (AUTO) 0.2 10^3/uL (0.0-0.6); ABSOLUTE MONOCYTES (AUTO) 0.8 10^3/uL (0.1-1.4); ABSOLUTE NEUT (AUTO) 4.1 10^3/uL (1.7-8.2); ABSOLUTE RETICS # 0.043 10^6/uL (0.028-0.122); BASOPHILS % (AUTO) 0.7 % (0-2); EOSINOPHILS % (AUTO) 3.3 % (0-6); HEMATOCRIT 22.8 % (37.9-51.0); LYMPHOCYTES % (AUTO) 27.7 % (13-45); MEAN CORPUSCULAR HGB CONC 32.2 g/dL (32.0-36.0); MEAN CORPUSCULAR VOLUME 78 fl (80-97); MONOCYTES % (AUTO) 11.7 % (3-13); PLATELET COUNT 196 10^3/uL (150-450); RED BLOOD COUNT 2.93 10^6/uL (4.35-5.55); RED CELL DISTRIBUTION WIDTH 18.6 % (11.5-14.0); RETICULOCYTE COUNT (AUTO) 1.46 % (0.66-2.85); SEGMENTED NEUTROPHILS % (AUTO) 56.6 % (42-78); TOTAL CELLS COUNTED % (AUTO) 100 %; WHITE BLOOD COUNT 7.2 10^3/uL (4.0-10.5)
[2017-05-19 04:35] LABS: HEMOGLOBIN 7.3 g/dL (13.5-17.0)
[2017-05-19 04:51] LABS: ALANINE AMINOTRANSFERASE 39 U/L (21-72); ALBUMIN 2.2 g/dL (3.5-5.0); ALKALINE PHOSPHATASE 73 U/L (38-126); ASPARTATE AMINO TRANSFERASE 33 U/L (17-59); BLOOD UREA NITROGEN 16 mg/dL (7-20); CALCIUM 8.4 mg/dL (8.4-10.2); GLUCOSE 88 mg/dL (75-110); IRON(TIBC) 43.6 ug/dL (49-181); POTASSIUM 3.6 mmol/L (3.6-5.0); TOTAL PROTEIN 4.3 g/dL (6.3-8.2)
[2017-05-19 04:56] LABS: CARBON DIOXIDE 26 mmol/L (22-30); CHLORIDE 112 mmol/L (98-107)
[2017-05-19 05:01] LABS: BILIRUBIN,TOTAL < 0.1 mg/dL (0.2-1.3)
[2017-05-19 05:02] LABS: LIPASE 2097.9 U/L (23-300)
[2017-05-19] MEDS: PROMETHAZINE HCL INJ 25 MG/1 ML VIAL IM PRN (05:06)
[2017-05-19 05:09] LABS: SODIUM 141.6 mmol/L (137-145)
[2017-05-19 05:11] LABS: ANION GAP 4 (5-19)
[2017-05-19 05:57] LABS: FOLATE 5.47 ng/mL (>2.76)
[2017-05-19] MEDS ORDERED: POTASSI CL 40 MEQ/D5-1/2NS 1L 40 MEQ/1,000 ML RTUINJ IV PRN (07:27)
[2017-05-19] MEDS ORDERED: DEXTROSE 50%-WATER 25 GM/50 ML DISP.SYRIN IV PRN ×2 (07:56)
[2017-05-19] MEDS ORDERED: DEXTROSE 40% GEL 15 GM TUBE PO PRN ×2 (07:56)
[2017-05-19] MEDS ORDERED: GLUCAGON,HUMAN RECOMB 1 MG INJ IM PRN (07:56)
[2017-05-19] MEDS ORDERED: NORMAL SALINE 250 ML IV PRN ×2 (07:57)
[2017-05-19] MEDS: NORMAL SALINE 1000 ML 1,000 ML IV PRN ×3 (08:06→19:49)
[2017-05-19] MEDS ORDERED: POTASSIUM CHLORIDE 10 MEQ CAPSULE.ER PO ONE (08:30)
[2017-05-19] MEDS: METOCLOPRAMIDE HCL 10 MG TABLET PO SCH ×2 (09:01→10:51)
[2017-05-19] MEDS: GABAPENTIN 300 MG CAPSULE PO SCH ×2 (09:04→17:40)
[2017-05-19] MEDS: LISINOPRIL 5 MG TABLET PO SCH (09:05)
[2017-05-19] MEDS: ENOXAPARIN SODIUM INJ 40 MG/0.4 ML DISP.SYRIN SUBCUT SCH (09:09)
[2017-05-19] MEDS: INSULIN GLARGINE,HUM.REC.ANLOG 1,000 UNIT/10 ML UNIT SUBCUT SCH ×2 (09:09→21:35)
[2017-05-19] MEDS: OLANZAPINE 5 MG TAB.RAPDIS PO SCH ×2 (10:50→17:40)
[2017-05-19] MEDS: INSULIN LISPRO 100 UNIT/ML 3 ML VIAL SUBCUT PRN ×2 (11:54→16:23)
--- NOTE | 2017-05-19 15:03 | PDOC PROGRESS REPORT ---
Subjective Progress Note for:: 05/19/17 Subjective:: Patient reports that pain is better but still needing pain medication. Patient has been made aware that we will be limiting opioid medication as he had been taking cocaine. He was also made aware that on discharge we anticipate that our service will not be prescribing opioid medication under the circumstances. I have expressed to the nursing staff that when reviewing patient previous hospitalization and circumstances patient appears deliberately not to take the insulin and presents to emergency room in full blown DKA and with complaints of abdominal pain. Pain likely relates to gastroparesis which gets exacerbated under the circumstances. Patient requested to to my supervisor weaving. We proceeded to ask for formal consult of patient advocate. Review of system All organ systems evaluated and negative except as in subjective All significant laboratories and diagnostics have been reviewed Reason For Visit: DKA, SEPSIS Physical Exam Vital Signs: Temp Pulse Resp BP Pulse Ox 98.6 F 84 15 116/82 100 05/19/17 04:00 05/18/17 21:00 05/19/17 06:00 05/19/17 03:53 05/18/17 17:00 Intake & Output 05/18/17 05/19/17 05/20/17 06:59 06:59 06:59 Intake Total 3254 5736 Output Total 500 Balance 3254 5236 Weight 58.6 kg 61.9 kg General appearance: PRESENT: no acute distress, thin Head exam: PRESENT: atraumatic, normocephalic Eye exam: PRESENT: conjunctiva pink, EOMI, PERRLA Mouth exam: PRESENT: moist Neck exam: PRESENT: full ROM. ABSENT: JVD, lymphadenopathy, tenderness Respiratory exam: ABSENT: clear to auscultation alfonso Cardiovascular exam: PRESENT: RRR. ABSENT: diastolic murmur, systolic murmur Vascular exam: PRESENT: normal capillary refill GI/Abdominal exam: PRESENT: normal bowel sounds, soft. ABSENT: tenderness Extremities exam: PRESENT: full ROM. ABSENT: pedal edema Musculoskeletal exam: PRESENT: ambulatory Neurological exam: PRESENT: alert, awake, oriented to person, oriented to place , oriented to time, oriented to situation, CN II-XII grossly intact Psychiatric exam: PRESENT: agitated Skin exam: PRESENT: intact, normal color Results Laboratory Results: 05/19/17 04:00 05/19/17 04:00 05/18/17 05/18/17 05/18/17 05:30 08:30 09:45 WBC RBC Hgb Hct MCV MCH MCHC RDW Plt Count Seg Neutrophils % Lymphocytes % Monocytes % Eosinophils % Basophils % Absolute Neutrophils Absolute Lymphocytes Absolute Monocytes Absolute Eosinophils Absolute Basophils Retic Count (auto) Absolute Retic Sodium Potassium Chloride Carbon Dioxide Anion Gap BUN Creatinine Est GFR ( Amer) Est GFR (Non-Af Amer) Glucose Lactic Acid Calcium Phosphorus 1.7 L Magnesium Iron TIBC % Saturation Ferritin Total Bilirubin AST ALT Alkaline Phosphatase Total Protein Albumin Triglycerides 100 Lipase Vitamin B12 845.0 Folate 6.22 Stool Occult Blood POSITIVE 05/18/17 05/18/17 05/19/17 12:10 16:15 04:00 WBC 7.2 RBC 2.93 L Hgb 7.3 L Hct 22.8 L MCV 78 L MCH 25.0 L MCHC 32.2 RDW 18.6 H Plt Count 196 Seg Neutrophils % 56.6 Lymphocytes % 27.7 Monocytes % 11.7 Eosinophils % 3.3 Basophils % 0.7 Absolute Neutrophils 4.1 Absolute Lymphocytes 2.0 Absolute Monocytes 0.8 Absolute Eosinophils 0.2 Absolute Basophils 0.0 Retic Count (auto) 1.46 Absolute Retic 0.043 Sodium 139.8 139.5 Potassium 4.1 D 3.8 Chloride 112 H 110 H Carbon Dioxide 22 21 L Anion Gap 6 9 BUN 26 H 22 H Creatinine 1.39 H 1.24 Est GFR ( Amer) > 60 > 60 Est GFR (Non-Af Amer) 58 L > 60 Glucose 114 H 133 H Lactic Acid Calcium 9.1 8.9 Phosphorus Magnesium Iron TIBC % Saturation Ferritin Total Bilirubin AST ALT Alkaline Phosphatase Total Protein Albumin Triglycerides Lipase 9417.9 H Vitamin B12 Folate Stool Occult Blood 05/19/17 05/19/17 04:00 05:50 WBC RBC Hgb Hct MCV MCH MCHC RDW Plt Count Seg Neutrophils % Lymphocytes % Monocytes % Eosinophils % Basophils % Absolute Neutrophils Absolute Lymphocytes Absolute Monocytes Absolute Eosinophils Absolute Basophils Retic Count (auto) Absolute Retic Sodium 141.6 Potassium 3.6 Chloride 112 H Carbon Dioxide 26 Anion Gap 4 L BUN 16 Creatinine 1.00 Est GFR ( Amer) > 60 Est GFR (Non-Af Amer) > 60 Glucose 88 Lactic Acid 0.7 Calcium 8.4 Phosphorus Magnesium 1.8 Iron 43.6 L TIBC 357 % Saturation 12 Ferritin 14.80 L Total Bilirubin < 0.1 L AST 33 ALT 39 Alkaline Phosphatase 73 Total Protein 4.3 L Albumin 2.2 L Triglycerides Lipase 2097.9 H Vitamin B12 820.0 Folate 5.47 Stool Occult Blood Impressions: Chest X-Ray 05/17/17 04:13 IMPRESSION: No acute cardiopulmonary findings. Central line. Abdomen Ultrasound 05/18/17 00:00 IMPRESSION: Echogenic liver from fatty infiltration or diffuse hepatocellular disease No gallstones, gallbladder wall thickening or pericholecystic fluid. Midline pancreas unremarkable Assessment & Plan - Diagnosis (1) Acute renal failure Qualifiers: Acute renal failure type: unspecified Qualified Code(s): N17.9 - Acute kidney failure, unspecified Is this a current diagnosis for this admission?: Yes Plan: Resolved with hydration (2) DKA (diabetic ketoacidoses) Qualifiers: Diabetes mellitus type: type 1 Diabetes mellitus complication detail: without coma Qualified Code(s): E10.10 - Type 1 diabetes mellitus with ketoacidosis without coma Is this a current diagnosis for this admission?: Yes Plan: Gap closed. Transition to long-acting, pre-meal Humalog and continue with Humalog sliding scale (3) Polysubstance abuse Is this a current diagnosis for this admission?: Yes Plan: Long-standing issue on this patient. Recommend a plan of care which should be consistent among all the providers as is my impression that patient self inflicts or sabotages his care in order to be admitted and then be treated with opioid medication which incidentally should be avoided when treating gastroparesis (4) Sepsis Qualifiers: Sepsis type: sepsis due to unspecified organism Qualified Code(s): A41.9 - Sepsis, unspecified organism Is this a current diagnosis for this admission?: No Plan: Patient due to DKA and altered infection. Leukocytosis improved without antibiotics (5) Hypokalemia Is this a current diagnosis for this admission?: Yes Plan: Replaced (6) Pancreatitis Qualifiers: Chronicity: acute Acute pancreatitis complication: unspecified Is this a current diagnosis for this admission?: Yes Plan: Likely due to inflammation of pancreas in the setting of DKA. Renal clinically improved. Recommend to avoid opioid medication. Placed on gabapentin and Tylenol (7) Anemia Qualifiers: Anemia type: unspecified type Qualified Code(s): D64.9 - Anemia, unspecified Is this a current diagnosis for this admission?: Yes Plan: Globin down today and will transfuse 1 unit of packed red blood cell. Trend. Continue PPI (8) Cocaine abuse Is this a current diagnosis for this admission?: Yes Plan: Long-standing problem on this patient. My understanding is that he had a non- STEMI due to cocaine use in the past. Patient reacting very defensive when confronted about this issue (9) Hyponatremia Is this a current diagnosis for this admission?: Yes Plan: Improved after correcting hyperglycemia (10) Noncompliance Is this a current diagnosis for this admission?: Yes Plan: My understanding is that patient had insulin at the [facility] but failed to follow through. Again everything points to him inflicting damage to himself for secondary gains (11) Tobacco abuse Is this a current diagnosis for this admission?: Yes Plan: Continue nicotine patch (12) Chronic pain associated with significant psychosocial dysfunction Is this a current diagnosis for this admission?: Yes Plan: Recommend to avoid use of opiod medication. The service will be transferred in AM to Dr Carcamo or Dr Cedillo - Time Time Spent with patient: 25-34 minutes Medications reviewed and adjusted accordingly: Yes Anticipated discharge: Home Within: within 48 hours - Inpatient Certification Based on my medical assessment, after consideration of the patient's comorbidities, presenting symptoms, or acuity I expect that the services needed warrant INPATIENT care.: Yes I certify that my determination is in accordance with my understanding of Medicare's requirements for reasonable and necessary INPATIENT services [42 CFR 412.3e].: Yes Medical Necessity: Need Close Monitoring Due to Risk of Patient Decompensation, Need For IV Fluids
[2017-05-19 16:12] LABS: ABSOLUTE EOSINOPHILS # (AUTO) 0.2 10^3/uL (0.0-0.6); ABSOLUTE LYMPHOCYTES (AUTO) 1.1 10^3/uL (0.5-4.7); ABSOLUTE MONOCYTES (AUTO) 0.6 10^3/uL (0.1-1.4); ABSOLUTE NEUT (AUTO) 5.1 10^3/uL (1.7-8.2); BASOPHILS % (AUTO) 0.4 % (0-2); EOSINOPHILS % (AUTO) 2.3 % (0-6); HEMATOCRIT 26.7 % (37.9-51.0); HEMOGLOBIN 8.6 g/dL (13.5-17.0); LYMPHOCYTES % (AUTO) 15.6 % (13-45); MEAN CORPUSCULAR HEMOGLOBIN 25.6 pg (27.0-33.4); MEAN CORPUSCULAR HGB CONC 32.4 g/dL (32.0-36.0); MEAN CORPUSCULAR VOLUME 79 fl (80-97); MONOCYTES % (AUTO) 9.1 % (3-13); PLATELET COUNT 189 10^3/uL (150-450); RED BLOOD COUNT 3.37 10^6/uL (4.35-5.55); RED CELL DISTRIBUTION WIDTH 18.4 % (11.5-14.0); SEGMENTED NEUTROPHILS % (AUTO) 72.6 % (42-78); TOTAL CELLS COUNTED % (AUTO) 100 %
[2017-05-19] MEDS: LANSOPRAZOLE 30 MG TAB.RAP.DR PO SCH (16:23)
[2017-05-19] MEDS: FLUCONAZOLE 100 MG TABLET PO SCH (21:34)
[2017-05-19] MEDS: PROMETHAZINE HCL 25 MG TABLET PO PRN (22:05)
[2017-05-20] MEDS: GABAPENTIN 300 MG CAPSULE PO SCH ×3 (01:58→17:13)
[2017-05-20] MEDS: NORMAL SALINE 1000 ML 1,000 ML IV PRN ×5 (02:57→22:20)
[2017-05-20] MEDS: LANSOPRAZOLE 30 MG TAB.RAP.DR PO SCH ×2 (05:48→17:13)
[2017-05-20] MEDS: METOCLOPRAMIDE HCL INJ/PF 10 MG/2 ML SDV IV SCH ×3 (05:48→22:15)
[2017-05-20 06:01] LABS: ABSOLUTE EOSINOPHILS # (AUTO) 0.1 10^3/uL (0.0-0.6); ABSOLUTE LYMPHOCYTES (AUTO) 0.8 10^3/uL (0.5-4.7); ABSOLUTE MONOCYTES (AUTO) 0.5 10^3/uL (0.1-1.4); ABSOLUTE NEUT (AUTO) 4.3 10^3/uL (1.7-8.2); BASOPHILS % (AUTO) 0.4 % (0-2); EOSINOPHILS % (AUTO) 2.1 % (0-6); HEMOGLOBIN 8.8 g/dL (13.5-17.0); LYMPHOCYTES % (AUTO) 14.3 % (13-45); MEAN CORPUSCULAR HGB CONC 32.5 g/dL (32.0-36.0); MEAN CORPUSCULAR VOLUME 80 fl (80-97); MONOCYTES % (AUTO) 8.5 % (3-13); PLATELET COUNT 174 10^3/uL (150-450); RED BLOOD COUNT 3.37 10^6/uL (4.35-5.55); RED CELL DISTRIBUTION WIDTH 18.9 % (11.5-14.0); SEGMENTED NEUTROPHILS % (AUTO) 74.7 % (42-78); TOTAL CELLS COUNTED % (AUTO) 100 %; WHITE BLOOD COUNT 5.8 10^3/uL (4.0-10.5)
[2017-05-20 06:18] LABS: ALANINE AMINOTRANSFERASE 33 U/L (21-72); ALBUMIN 2.3 g/dL (3.5-5.0); ALKALINE PHOSPHATASE 83 U/L (38-126); ANION GAP 9 (5-19); ASPARTATE AMINO TRANSFERASE 37 U/L (17-59); BLOOD UREA NITROGEN 11 mg/dL (7-20); CARBON DIOXIDE 16 mmol/L (22-30); CHLORIDE 118 mmol/L (98-107); GLUCOSE 351 mg/dL (75-110); POTASSIUM 4.5 mmol/L (3.6-5.0); SODIUM 143.4 mmol/L (137-145); TOTAL PROTEIN 4.5 g/dL (6.3-8.2)
[2017-05-20 06:20] LABS: BILIRUBIN,TOTAL < 0.1 mg/dL (0.2-1.3)
[2017-05-20] MEDS: LISINOPRIL 5 MG TABLET PO SCH (09:24)
[2017-05-20] MEDS: INSULIN GLARGINE,HUM.REC.ANLOG 1,000 UNIT/10 ML UNIT SUBCUT SCH ×2 (09:25→22:15)
[2017-05-20] MEDS: OLANZAPINE 5 MG TAB.RAPDIS PO SCH ×2 (09:25→17:13)
[2017-05-20] MEDS: INSULIN LISPRO 100 UNIT/ML 3 ML VIAL SUBCUT PRN ×2 (09:26→22:15)
[2017-05-20] MEDS: PROMETHAZINE HCL 25 MG TABLET PO PRN (09:28)
[2017-05-20] MEDS: ENOXAPARIN SODIUM INJ 40 MG/0.4 ML DISP.SYRIN SUBCUT SCH (09:29)
[2017-05-20] MEDS ORDERED: FENTANYL 12 MCG/HR PATCH.TD72 TD SCH (10:00)
--- NOTE | 2017-05-20 20:52 | PDOC PROGRESS REPORT ---
Subjective Progress Note for:: 05/20/17 Subjective:: Feeling a little better. Reglan IV helping with nausea, and feeling n.p.o. other than overnight by Dr. Guzman. Still he complains of pain in the abdomen and "all over." Requesting opiates, but told we a limiting opiates on him as he continues to abuse illicit drugs. No chest pain or shortness of breath or palpitations at this time. Reason For Visit: DKA, SEPSIS Physical Exam Vital Signs: Temp Pulse Resp BP Pulse Ox 97.6 F 66 18 99/71 L 100 05/20/17 20:00 05/20/17 07:17 05/20/17 20:07 05/20/17 20:07 05/20/17 16:00 Intake & Output 05/19/17 05/20/17 05/21/17 06:59 06:59 06:59 Intake Total 5736 4992 2622 Output Total 500 2825 600 Balance 5236 2167 2 Weight 61.9 kg 63.9 kg GEN: NAD, well-developed CV: RRR, NL S1S2 LUNGS: CTA bilaterally ABDOMEN Soft, mild to moderate diffuse tenderness, no rebound or guarding, +BS EXTERMITIES: No e/c/c NEURO: Alert, oriented 3, nonfocal Results Laboratory Results: 05/20/17 05:45 05/20/17 05:45 05/19/17 05/20/17 05/20/17 04:00 05:45 05:45 WBC 5.8 RBC 3.37 L Hgb 8.8 L Hct 27.0 L MCV 80 MCH 26.0 L MCHC 32.5 RDW 18.9 H Plt Count 174 Seg Neutrophils % 74.7 Lymphocytes % 14.3 Monocytes % 8.5 Eosinophils % 2.1 Basophils % 0.4 Absolute Neutrophils 4.3 Absolute Lymphocytes 0.8 Absolute Monocytes 0.5 Absolute Eosinophils 0.1 Absolute Basophils 0.0 Sodium 143.4 Potassium 4.5 Chloride 118 H Carbon Dioxide 16 L Anion Gap 9 BUN 11 Creatinine 0.85 Est GFR ( Amer) > 60 Est GFR (Non-Af Amer) > 60 Glucose 351 H Calcium 9.0 Magnesium 1.9 Transferrin 254 Total Bilirubin < 0.1 L AST 37 ALT 33 Alkaline Phosphatase 83 Total Protein 4.5 L Albumin 2.3 L Lipase Not Reportable Impressions: Chest X-Ray 05/17/17 04:13 IMPRESSION: No acute cardiopulmonary findings. Central line. Abdomen Ultrasound 05/18/17 00:00 IMPRESSION: Echogenic liver from fatty infiltration or diffuse hepatocellular disease No gallstones, gallbladder wall thickening or pericholecystic fluid. Midline pancreas unremarkable Assessment & Plan - Plan Summary Plan Summary: (1) DKA (diabetic ketoacidoses) Qualifiers: Diabetes mellitus type: type 1 Diabetes mellitus complication detail: without coma Qualified Code(s): E10.10 - Type 1 diabetes mellitus with ketoacidosis without coma Is this a current diagnosis for this admission?: Yes Plan: Gap closed. Transitioned to long-acting, pre-meal Humalog and continue with Humalog sliding scale (2) Acute renal failure Qualifiers: Acute renal failure type: unspecified Qualified Code(s): N17.9 - Acute kidney failure, unspecified Is this a current diagnosis for this admission?: Yes Plan: Resolved with hydration (3) Polysubstance abuse Is this a current diagnosis for this admission?: Yes Plan: Long-standing issue on this patient. Illicit drug use counseling. Not interested in rehab at this time. (4) Sepsis Qualifiers: Sepsis type: sepsis due to unspecified organism Qualified Code(s): A41.9 - Sepsis, unspecified organism Is this a current diagnosis for this admission?: No Plan: We will ruled out. Leukocytosis likely secondary reactive due to DKA and dehydration. Leukocytosis improved without antibiotics Continue to monitor patient for fevers or other signs of infection (5) Pancreatitis Qualifiers: Chronicity: acute Acute pancreatitis complication: unspecified Is this a current diagnosis for this admission?: Yes Plan: Likely due to inflammation of pancreas in the setting of DKA. Improved. (7) Anemia Qualifiers: Anemia type: unspecified type Qualified Code(s): D64.9 - Anemia, unspecified Is this a current diagnosis for this admission?: Yes Plan: Hemoglobin stable today. Status post transfuse 1 unit of packed red blood cell 05/19. Continue to trend. Continue PPI (8) Noncompliance Is this a current diagnosis for this admission?: Yes Plan: Counseled patient (9) Tobacco abuse Is this a current diagnosis for this admission?: Yes Plan: Continue nicotine patch. Smoking cessation counseling. (12) Chronic pain associated with significant psychosocial dysfunction Is this a current diagnosis for this admission?: Yes Plan: Recommend to avoid use of opiod medication.
[2017-05-20] MEDS: FLUCONAZOLE 100 MG TABLET PO SCH (22:14)
[2017-05-21] MEDS: GABAPENTIN 300 MG CAPSULE PO SCH ×3 (01:05→18:22)
[2017-05-21] MEDS: LANSOPRAZOLE 30 MG TAB.RAP.DR PO SCH ×2 (05:10→18:22)
[2017-05-21] MEDS: METOCLOPRAMIDE HCL INJ/PF 10 MG/2 ML SDV IV SCH ×3 (05:10→23:03)
[2017-05-21] MEDS: NORMAL SALINE 1000 ML 1,000 ML IV PRN ×3 (05:10→18:27)
[2017-05-21 05:47] LABS: ABSOLUTE EOSINOPHILS # (AUTO) 0.1 10^3/uL (0.0-0.6); ABSOLUTE LYMPHOCYTES (AUTO) 1.3 10^3/uL (0.5-4.7); ABSOLUTE MONOCYTES (AUTO) 0.6 10^3/uL (0.1-1.4); ABSOLUTE NEUT (AUTO) 4.1 10^3/uL (1.7-8.2); BASOPHILS % (AUTO) 0.6 % (0-2); EOSINOPHILS % (AUTO) 2.4 % (0-6); HEMATOCRIT 28.8 % (37.9-51.0); HEMOGLOBIN 9.3 g/dL (13.5-17.0); LYMPHOCYTES % (AUTO) 21.4 % (13-45); MEAN CORPUSCULAR HEMOGLOBIN 26.1 pg (27.0-33.4); MEAN CORPUSCULAR HGB CONC 32.3 g/dL (32.0-36.0); MEAN CORPUSCULAR VOLUME 81 fl (80-97); MONOCYTES % (AUTO) 8.9 % (3-13); PLATELET COUNT 165 10^3/uL (150-450); RED BLOOD COUNT 3.55 10^6/uL (4.35-5.55); RED CELL DISTRIBUTION WIDTH 18.8 % (11.5-14.0); SEGMENTED NEUTROPHILS % (AUTO) 66.7 % (42-78); TOTAL CELLS COUNTED % (AUTO) 100 %; WHITE BLOOD COUNT 6.2 10^3/uL (4.0-10.5)
[2017-05-21 06:03] LABS: ANION GAP 9 (5-19); BLOOD UREA NITROGEN 8 mg/dL (7-20); CALCIUM 9.6 mg/dL (8.4-10.2); CARBON DIOXIDE 11 mmol/L (22-30); CHLORIDE 125 mmol/L (98-107); GLUCOSE 135 mg/dL (75-110); POTASSIUM 5.1 mmol/L (3.6-5.0); SODIUM 144.9 mmol/L (137-145)
[2017-05-21] MEDS: INSULIN GLARGINE,HUM.REC.ANLOG 1,000 UNIT/10 ML UNIT SUBCUT SCH ×2 (09:18→23:03)
[2017-05-21] MEDS: LISINOPRIL 5 MG TABLET PO SCH (09:19)
[2017-05-21] MEDS: PROMETHAZINE HCL 25 MG TABLET PO PRN (09:25)
[2017-05-21] MEDS: ENOXAPARIN SODIUM INJ 40 MG/0.4 ML DISP.SYRIN SUBCUT SCH (09:27)
[2017-05-21] MEDS: OLANZAPINE 5 MG TAB.RAPDIS PO SCH ×2 (10:00→18:22)
[2017-05-21] MEDS: INSULIN LISPRO 100 UNIT/ML 3 ML VIAL SUBCUT PRN ×2 (18:22→23:03)
--- NOTE | 2017-05-21 18:30 | PDOC PROGRESS REPORT ---
Subjective Progress Note for:: 05/21/17 Subjective:: Feeling a little better. Reglan IV helping with nausea, and phenergan po that was also 2 nights ago by by Dr. Guzman. Still he complains of pain in the abdomen and "all over." Requesting opiates, but stated he understood when I told him we are limiting opiates on him as he continues to abuse illicit drugs. No chest pain or shortness of breath or palpitations at this time. Reason For Visit: DKA, SEPSIS Physical Exam Vital Signs: Temp Pulse Resp BP Pulse Ox 98.4 F 98 20 132/90 H 100 05/21/17 16:00 05/21/17 16:00 05/21/17 16:00 05/21/17 16:00 05/21/17 16:00 Intake & Output 05/20/17 05/21/17 05/22/17 06:59 06:59 06:59 Intake Total 4992 2844 720 Output Total 2825 600 Balance 2167 2244 720 Weight 63.9 kg GEN: NAD, well-developed CV: RRR, NL S1S2 LUNGS: CTA bilaterally ABDOMEN Soft, mild to moderate diffuse tenderness, no rebound or guarding, +BS EXTERMITIES: No e/c/c NEURO: Alert, oriented 3, nonfocal Results Laboratory Results: 05/21/17 05:30 05/21/17 05:30 05/21/17 05/21/17 05:30 05:30 WBC 6.2 RBC 3.55 L Hgb 9.3 L Hct 28.8 L MCV 81 MCH 26.1 L MCHC 32.3 RDW 18.8 H Plt Count 165 Seg Neutrophils % 66.7 Lymphocytes % 21.4 Monocytes % 8.9 Eosinophils % 2.4 Basophils % 0.6 Absolute Neutrophils 4.1 Absolute Lymphocytes 1.3 Absolute Monocytes 0.6 Absolute Eosinophils 0.1 Absolute Basophils 0.0 Sodium 144.9 Potassium 5.1 H Chloride 125 H Carbon Dioxide 11 L Anion Gap 9 BUN 8 Creatinine 1.00 Est GFR ( Amer) > 60 Est GFR (Non-Af Amer) > 60 Glucose 135 H Calcium 9.6 Impressions: Chest X-Ray 05/17/17 04:13 IMPRESSION: No acute cardiopulmonary findings. Central line. Abdomen Ultrasound 05/18/17 00:00 IMPRESSION: Echogenic liver from fatty infiltration or diffuse hepatocellular disease No gallstones, gallbladder wall thickening or pericholecystic fluid. Midline pancreas unremarkable Assessment & Plan - Plan Summary Plan Summary: (1) DKA (diabetic ketoacidoses) Qualifiers: Diabetes mellitus type: type 1 Diabetes mellitus complication detail: without coma Qualified Code(s): E10.10 - Type 1 diabetes mellitus with ketoacidosis without coma Is this a current diagnosis for this admission?: Yes Plan: Gap closed. Transitioned to long-acting, pre-meal Humalog and continue with Humalog sliding scale States noncompliance because cannot afford Humulin. Resume noncompliant with appointments at the [facility] he is supposed to go to. Management working to set up a new appointment for him. (2) Acute renal failure Qualifiers: Acute renal failure type: unspecified Qualified Code(s): N17.9 - Acute kidney failure, unspecified Is this a current diagnosis for this admission?: Yes Plan: Resolved with hydration (3) Polysubstance abuse Is this a current diagnosis for this admission?: Yes Plan: Long-standing issue on this patient. Illicit drug use counseling. Not interested in rehab at this time. (4) Sepsis Qualifiers: Sepsis type: sepsis due to unspecified organism Qualified Code(s): A41.9 - Sepsis, unspecified organism Is this a current diagnosis for this admission?: No Plan: This was ruled out. Leukocytosis likely reactive due to DKA and dehydration. Leukocytosis improved without antibiotics Continue to monitor patient for fevers or other signs of infection (5) Pancreatitis Qualifiers: Chronicity: acute Acute pancreatitis complication: unspecified Is this a current diagnosis for this admission?: Yes Plan: Likely due to inflammation of pancreas in the setting of DKA. Improved. (7) Anemia Qualifiers: Anemia type: unspecified type Qualified Code(s): D64.9 - Anemia, unspecified Is this a current diagnosis for this admission?: Yes Plan: Hemoglobin stable today. Status post transfuse 1 unit of packed red blood cell 05/19. Continue to trend. Continue PPI (8) Noncompliance Is this a current diagnosis for this admission?: Yes Plan: Counseled patient (9) Tobacco abuse Is this a current diagnosis for this admission?: Yes Plan: Continue nicotine patch. Smoking cessation counseling. (12) Chronic pain associated with significant psychosocial dysfunction Is this a current diagnosis for this admission?: Yes Plan: Recommend to avoid use of opiod medication. 13. Mild hyperkalemia. Follow-up in a.m.
[2017-05-21] MEDS: FLUCONAZOLE 100 MG TABLET PO SCH (23:03)
[2017-05-22] MEDS: GABAPENTIN 300 MG CAPSULE PO SCH ×3 (00:57→17:00)
[2017-05-22] MEDS: NORMAL SALINE 1000 ML 1,000 ML IV PRN (05:41)
[2017-05-22] MEDS: METOCLOPRAMIDE HCL INJ/PF 10 MG/2 ML SDV IV SCH ×3 (05:41→23:17)
[2017-05-22] MEDS: LANSOPRAZOLE 30 MG TAB.RAP.DR PO SCH ×2 (05:41→17:00)
[2017-05-22 06:53] LABS: ABSOLUTE BASOPHILS # (AUTO) 0.1 10^3/uL (0.0-0.2); ABSOLUTE EOSINOPHILS # (AUTO) 0.2 10^3/uL (0.0-0.6); ABSOLUTE LYMPHOCYTES (AUTO) 1.7 10^3/uL (0.5-4.7); ABSOLUTE MONOCYTES (AUTO) 0.7 10^3/uL (0.1-1.4); ABSOLUTE NEUT (AUTO) 3.9 10^3/uL (1.7-8.2); BASOPHILS % (AUTO) 0.9 % (0-2); EOSINOPHILS % (AUTO) 2.4 % (0-6); HEMATOCRIT 28.5 % (37.9-51.0); HEMOGLOBIN 9.1 g/dL (13.5-17.0); LYMPHOCYTES % (AUTO) 26.4 % (13-45); MEAN CORPUSCULAR HEMOGLOBIN 25.7 pg (27.0-33.4); MEAN CORPUSCULAR HGB CONC 31.9 g/dL (32.0-36.0); MEAN CORPUSCULAR VOLUME 81 fl (80-97); MONOCYTES % (AUTO) 10.3 % (3-13); PLATELET COUNT 184 10^3/uL (150-450); RED BLOOD COUNT 3.55 10^6/uL (4.35-5.55); RED CELL DISTRIBUTION WIDTH 18.7 % (11.5-14.0); TOTAL CELLS COUNTED % (AUTO) 100 %; WHITE BLOOD COUNT 6.5 10^3/uL (4.0-10.5)
[2017-05-22 07:17] LABS: ANION GAP 10 (5-19); BLOOD UREA NITROGEN 14 mg/dL (7-20); CALCIUM 9.1 mg/dL (8.4-10.2); CARBON DIOXIDE 12 mmol/L (22-30); CHLORIDE 118 mmol/L (98-107); GLUCOSE 228 mg/dL (75-110); POTASSIUM 4.6 mmol/L (3.6-5.0); SODIUM 139.9 mmol/L (137-145)
[2017-05-22] MEDS: INSULIN LISPRO 100 UNIT/ML 3 ML VIAL SUBCUT PRN ×4 (07:39→23:17)
[2017-05-22] MEDS: OLANZAPINE 5 MG TAB.RAPDIS PO SCH ×2 (10:15→17:01)
[2017-05-22] MEDS: INSULIN GLARGINE,HUM.REC.ANLOG 1,000 UNIT/10 ML UNIT SUBCUT SCH ×2 (10:15→23:17)
[2017-05-22] MEDS: LISINOPRIL 5 MG TABLET PO SCH (10:15)
[2017-05-22] MEDS: ENOXAPARIN SODIUM INJ 40 MG/0.4 ML DISP.SYRIN SUBCUT SCH (10:16)
[2017-05-22] MEDS ORDERED: 1/2 NORMAL SALINE 1,000 ML IV PRN (13:46)
--- NOTE | 2017-05-22 13:50 | PDOC PROGRESS REPORT ---
Subjective Progress Note for:: 05/22/17 Subjective:: Feeling slowly getting better. Reglan IV helping with nausea. Still complains of pain in the abdomen and "all over," but now near baseline. Requesting opiates, but stated he understood when I told him we are limiting opiates on him as he continues to abuse illicit drugs. No chest pain or shortness of breath or palpitations at this time, no fever or chills. Reason For Visit: DKA, SEPSIS Physical Exam Vital Signs: Temp Pulse Resp BP Pulse Ox 98.7 F 105 H 16 117/79 100 05/22/17 12:03 05/22/17 12:03 05/22/17 12:03 05/22/17 12:03 05/22/17 12:03 Intake & Output 05/21/17 05/22/17 05/23/17 06:59 06:59 06:59 Intake Total 2844 5115 Output Total 600 Balance 2244 5115 GEN: NAD, well-developed CV: RRR, NL S1S2 LUNGS: CTA bilaterally ABDOMEN Soft, mild diffuse tenderness, no rebound or guarding, +BS EXTERMITIES: No e/c/c NEURO: Alert, oriented 3, nonfocal Results Laboratory Results: 05/22/17 05:45 05/22/17 05:45 05/22/17 05/22/17 05:45 05:45 WBC 6.5 RBC 3.55 L Hgb 9.1 L Hct 28.5 L MCV 81 MCH 25.7 L MCHC 31.9 L RDW 18.7 H Plt Count 184 Seg Neutrophils % 60.0 Lymphocytes % 26.4 Monocytes % 10.3 Eosinophils % 2.4 Basophils % 0.9 Absolute Neutrophils 3.9 Absolute Lymphocytes 1.7 Absolute Monocytes 0.7 Absolute Eosinophils 0.2 Absolute Basophils 0.1 Sodium 139.9 Potassium 4.6 Chloride 118 H Carbon Dioxide 12 L Anion Gap 10 BUN 14 Creatinine 1.08 Est GFR ( Amer) > 60 Est GFR (Non-Af Amer) > 60 Glucose 228 H Calcium 9.1 Impressions: Chest X-Ray 05/17/17 04:13 IMPRESSION: No acute cardiopulmonary findings. Central line. Abdomen Ultrasound 05/18/17 00:00 IMPRESSION: Echogenic liver from fatty infiltration or diffuse hepatocellular disease No gallstones, gallbladder wall thickening or pericholecystic fluid. Midline pancreas unremarkable Assessment & Plan - Plan Summary Plan Summary: (1) DKA (diabetic ketoacidoses) Qualifiers: Diabetes mellitus type: type 1 Diabetes mellitus complication detail: without coma Qualified Code(s): E10.10 - Type 1 diabetes mellitus with ketoacidosis without coma Is this a current diagnosis for this admission?: Yes Plan: Gap closed. Transitioned to long-acting, pre-meal Humalog and continue with Humalog sliding scale States noncompliance to insulin is because he cannot afford Humulin. Pt noncompliant with appointments at [facility]. Care Management working to set up a new appointment for him. -CO2 down today and BG running high --patient states has not been eating or drinking much in the past 1 to 2 days due to gastroparesis--will restart IV 1/2 NS at 100ml/hr to prevent dehydration and going back into DKA. (2) Acute renal failure Qualifiers: Acute renal failure type: unspecified Qualified Code(s): N17.9 - Acute kidney failure, unspecified Is this a current diagnosis for this admission?: Yes Plan: Resolved with hydration (3) Polysubstance abuse Is this a current diagnosis for this admission?: Yes Plan: Long-standing issue on this patient. Illicit drug use counseling. Not interested in rehab at this time. (4) Sepsis Qualifiers: Sepsis type: sepsis due to unspecified organism Qualified Code(s): A41.9 - Sepsis, unspecified organism Is this a current diagnosis for this admission?: No Plan: This was ruled out. Leukocytosis likely reactive due to DKA and dehydration. Leukocytosis improved without antibiotics Continue to monitor patient for fevers or other signs of infection (5) Pancreatitis Qualifiers: Chronicity: acute Acute pancreatitis complication: unspecified Is this a current diagnosis for this admission?: Yes Plan: Likely due to inflammation of pancreas in the setting of DKA. Improved. (7) Anemia Qualifiers: Anemia type: unspecified type Qualified Code(s): D64.9 - Anemia, unspecified Is this a current diagnosis for this admission?: Yes Plan: Hemoglobin stable today. Status post transfuse 1 unit of packed red blood cell 05/19. Continue to trend. Continue PPI (8) Noncompliance Is this a current diagnosis for this admission?: Yes Plan: Counseled patient (9) Tobacco abuse Is this a current diagnosis for this admission?: Yes Plan: Continue nicotine patch. Smoking cessation counseling. (12) Chronic pain associated with significant psychosocial dysfunction Is this a current diagnosis for this admission?: Yes Plan: Recommend to avoid use of opiod medication.
[2017-05-22] MEDS: FLUCONAZOLE 100 MG TABLET PO SCH (23:17)
[2017-05-23] MEDS: GABAPENTIN 300 MG CAPSULE PO SCH ×3 (01:03→16:33)
[2017-05-23] MEDS: LANSOPRAZOLE 30 MG TAB.RAP.DR PO SCH ×2 (05:42→16:33)
[2017-05-23] MEDS: METOCLOPRAMIDE HCL INJ/PF 10 MG/2 ML SDV IV SCH ×3 (05:42→21:21)
[2017-05-23 06:40] LABS: ABSOLUTE BASOPHILS # (AUTO) 0.1 10^3/uL (0.0-0.2); ABSOLUTE EOSINOPHILS # (AUTO) 0.2 10^3/uL (0.0-0.6); ABSOLUTE LYMPHOCYTES (AUTO) 2.1 10^3/uL (0.5-4.7); ABSOLUTE MONOCYTES (AUTO) 0.9 10^3/uL (0.1-1.4); ABSOLUTE NEUT (AUTO) 4.9 10^3/uL (1.7-8.2); EOSINOPHILS % (AUTO) 2.1 % (0-6); HEMATOCRIT 27.1 % (37.9-51.0); HEMOGLOBIN 8.8 g/dL (13.5-17.0); LYMPHOCYTES % (AUTO) 25.9 % (13-45); MEAN CORPUSCULAR HEMOGLOBIN 26.1 pg (27.0-33.4); MEAN CORPUSCULAR HGB CONC 32.5 g/dL (32.0-36.0); MEAN CORPUSCULAR VOLUME 80 fl (80-97); MONOCYTES % (AUTO) 10.9 % (3-13); PLATELET COUNT 194 10^3/uL (150-450); RED BLOOD COUNT 3.37 10^6/uL (4.35-5.55); RED CELL DISTRIBUTION WIDTH 18.8 % (11.5-14.0); SEGMENTED NEUTROPHILS % (AUTO) 60.1 % (42-78); TOTAL CELLS COUNTED % (AUTO) 100 %; WHITE BLOOD COUNT 8.1 10^3/uL (4.0-10.5)
[2017-05-23 07:30] LABS: ANION GAP 10 (5-19); BLOOD UREA NITROGEN 17 mg/dL (7-20); CALCIUM 9.2 mg/dL (8.4-10.2); CARBON DIOXIDE 13 mmol/L (22-30); CHLORIDE 117 mmol/L (98-107); GLUCOSE 261 mg/dL (75-110); POTASSIUM 4.8 mmol/L (3.6-5.0)
[2017-05-23] MEDS: INSULIN LISPRO 100 UNIT/ML 3 ML VIAL SUBCUT PRN ×2 (07:39→21:22)
[2017-05-23] MEDS: ENOXAPARIN SODIUM INJ 40 MG/0.4 ML DISP.SYRIN SUBCUT SCH (09:41)
[2017-05-23] MEDS: OLANZAPINE 5 MG TAB.RAPDIS PO SCH ×2 (09:48→16:34)
[2017-05-23] MEDS: INSULIN GLARGINE,HUM.REC.ANLOG 1,000 UNIT/10 ML UNIT SUBCUT SCH (09:48)
[2017-05-23] MEDS: LISINOPRIL 5 MG TABLET PO SCH (09:48)
--- NOTE | 2017-05-23 14:38 | PDOC PROGRESS REPORT ---
Subjective Progress Note for:: 05/23/17 Subjective:: Patient still complaining of diarrhea which is more or less constant and abdominal pain The pain is moderate to severe epigastric and constant No vomiting No fever no chills Patient has been tolerating the diet well His blood sugars have normalized Ketoacidosis has resolved Metabolic acidosis is still persistent, mild Reason For Visit: DKA, SEPSIS Physical Exam Vital Signs: Temp Pulse Resp BP Pulse Ox 98.1 F 101 H 16 102/65 100 05/23/17 11:52 05/23/17 11:52 05/23/17 11:52 05/23/17 11:52 05/23/17 11:52 Intake & Output 05/22/17 05/23/17 05/24/17 00:59 00:59 00:59 Intake Total 3597 4331 1422 Balance 3597 4331 1422 Is alert and awake Looks thin and chronically ill Pupils are PERRLA extraocular motor intact conjunctiva pale Neck supple Heart regular rhythm no murmur no gallop Lungs are clear Abdomen diffusely tender with mild guarding in the epigastrium no rebound Extremities are intact Neuro is nonfocal Results Laboratory Results: 05/23/17 05:50 05/23/17 05:50 05/23/17 05/23/17 05:50 05:50 WBC 8.1 RBC 3.37 L Hgb 8.8 L Hct 27.1 L MCV 80 MCH 26.1 L MCHC 32.5 RDW 18.8 H Plt Count 194 Seg Neutrophils % 60.1 Lymphocytes % 25.9 Monocytes % 10.9 Eosinophils % 2.1 Basophils % 1.0 Absolute Neutrophils 4.9 Absolute Lymphocytes 2.1 Absolute Monocytes 0.9 Absolute Eosinophils 0.2 Absolute Basophils 0.1 Sodium 140.0 Potassium 4.8 Chloride 117 H Carbon Dioxide 13 L Anion Gap 10 BUN 17 Creatinine 1.00 Est GFR ( Amer) > 60 Est GFR (Non-Af Amer) > 60 Glucose 261 H Calcium 9.2 Impressions: Chest X-Ray 05/17/17 04:13 IMPRESSION: No acute cardiopulmonary findings. Central line. Abdomen Ultrasound 05/18/17 00:00 IMPRESSION: Echogenic liver from fatty infiltration or diffuse hepatocellular disease No gallstones, gallbladder wall thickening or pericholecystic fluid. Midline pancreas unremarkable Assessment & Plan - Diagnosis (1) History of substance abuse Is this a current diagnosis for this admission?: Yes Plan: Drug screen was positive for cocaine Patient denies IVDA We will order an HIV screen (2) Anemia Qualifiers: Anemia type: unspecified type Qualified Code(s): D64.9 - Anemia, unspecified Is this a current diagnosis for this admission?: Yes Plan: Chronic anemia stable Iron and B12 were normal Anemia likely secondary to chronic disease (3) DKA (diabetic ketoacidoses) Qualifiers: Diabetes mellitus type: type 1 Diabetes mellitus complication detail: without coma Qualified Code(s): E10.10 - Type 1 diabetes mellitus with ketoacidosis without coma Is this a current diagnosis for this admission?: Yes Plan: Has resolved (4) Pancreatitis Qualifiers: Chronicity: acute Acute pancreatitis complication: unspecified Is this a current diagnosis for this admission?: Yes Plan: Patient likely has chronic pancreatitis and chronic abdominal pain with diarrhea We will order CT abdomen and pelvis for tomorrow morning and reevaluate the pancreas If CAT scan suggestive of pancreatitis, pancreatic enzymes would be indicated and may decrease pain (5) History of GI bleed Is this a current diagnosis for this admission?: Yes Plan: Patient has a history of duodenal ulcer and GI bleed Ordered stools for occult blood If positive blood in the stools of repeat endoscopy may be indicated Continue PPI Added Carafate (6) History of pancreatitis Is this a current diagnosis for this admission?: Yes - Time Time Spent with patient: 25-34 minutes
[2017-05-23] MEDS: SUCRALFATE SUSP 1 GM/10 ML UDCUP PO SCH ×2 (16:33→21:21)
[2017-05-23] MEDS ORDERED: INSULIN LISPRO 100 UNIT/ML 3 ML VIAL SUBCUT ONE (16:45)
[2017-05-23] MEDS: FLUCONAZOLE 100 MG TABLET PO SCH (21:21)
[2017-05-23] MEDS ORDERED: INSULIN GLARGINE,HUM.REC.ANLOG 1,000 UNIT/10 ML UNIT SUBCUT SCH (22:00)
[2017-05-24] MEDS: GABAPENTIN 300 MG CAPSULE PO SCH ×3 (02:32→17:48)
[2017-05-24] MEDS ORDERED: NORMAL SALINE 1000 ML 2,000 ML IV ONE (03:15)
[2017-05-24] MEDS: METOCLOPRAMIDE HCL INJ/PF 10 MG/2 ML SDV IV SCH ×3 (05:51→21:18)
[2017-05-24] MEDS: LANSOPRAZOLE 30 MG TAB.RAP.DR PO SCH ×2 (05:52→15:59)
[2017-05-24 07:01] LABS: ALANINE AMINOTRANSFERASE 44 U/L (21-72); ALBUMIN 2.7 g/dL (3.5-5.0); ALKALINE PHOSPHATASE 80 U/L (38-126); ANION GAP 10 (5-19); ASPARTATE AMINO TRANSFERASE 28 U/L (17-59); BLOOD UREA NITROGEN 18 mg/dL (7-20); CARBON DIOXIDE 15 mmol/L (22-30); CHLORIDE 119 mmol/L (98-107); GLUCOSE 135 mg/dL (75-110); POTASSIUM 4.9 mmol/L (3.6-5.0); SODIUM 143.7 mmol/L (137-145); TOTAL PROTEIN 5.4 g/dL (6.3-8.2)
[2017-05-24 07:06] LABS: BILIRUBIN,TOTAL < 0.1 mg/dL (0.2-1.3)
[2017-05-24 07:46] LABS: LIPASE 9863.5 U/L (23-300)
[2017-05-24] MEDS ORDERED: DEXTROSE 5%-NORMAL SALINE 1,000 ML IV PRN (08:23)
[2017-05-24] MEDS: SUCRALFATE SUSP 1 GM/10 ML UDCUP PO SCH ×4 (08:25→21:18)
--- NOTE | 2017-05-24 09:02 | PDOC PROGRESS REPORT ---
Subjective Progress Note for:: 05/24/17 Subjective:: Patient has had hypoglycemic episodes since last night He is n.p.o. for CT abdomen and pelvis to be performed this morning No abdominal pain no chest pain shortness of breath nausea vomiting No fever Reason For Visit: DKA, SEPSIS Physical Exam Vital Signs: Temp Pulse Resp BP Pulse Ox 97.5 F 101 H 15 130/70 H 100 05/24/17 08:00 05/24/17 08:00 05/24/17 08:00 05/24/17 08:00 05/24/17 08:00 Intake & Output 05/23/17 05/24/17 05/25/17 00:59 00:59 00:59 Intake Total 4331 3202 1999 Balance 4331 3202 1999 Is alert and awake Looks thin and chronically ill Pupils are PERRLA extraoccular motor intact conjunctiva pale Neck supple Heart regular rhythm no murmur no gallop Lungs are clear Abdomen diffusely tender with mild guarding in the epigastrium no rebound Extremities are intact Neuro is nonfocal Results Laboratory Results: 05/23/17 05:50 05/24/17 06:00 05/23/17 05/24/17 14:25 06:00 Sodium 143.7 Potassium 4.9 Chloride 119 H Carbon Dioxide 15 L Anion Gap 10 BUN 18 Creatinine 0.95 Est GFR ( Amer) > 60 Est GFR (Non-Af Amer) > 60 Glucose 135 H Calcium 9.0 Total Bilirubin < 0.1 L AST 28 ALT 44 Alkaline Phosphatase 80 Total Protein 5.4 L Albumin 2.7 L Lipase 9863.5 H Stool Occult Blood NEGATIVE Impressions: Chest X-Ray 05/17/17 04:13 IMPRESSION: No acute cardiopulmonary findings. Central line. Abdomen Ultrasound 05/18/17 00:00 IMPRESSION: Echogenic liver from fatty infiltration or diffuse hepatocellular disease No gallstones, gallbladder wall thickening or pericholecystic fluid. Midline pancreas unremarkable Assessment & Plan - Diagnosis (1) History of substance abuse Is this a current diagnosis for this admission?: Yes (2) Anemia Qualifiers: Anemia type: unspecified type Qualified Code(s): D64.9 - Anemia, unspecified Is this a current diagnosis for this admission?: Yes (3) DKA (diabetic ketoacidoses) Qualifiers: Diabetes mellitus type: type 1 Diabetes mellitus complication detail: without coma Qualified Code(s): E10.10 - Type 1 diabetes mellitus with ketoacidosis without coma Is this a current diagnosis for this admission?: Yes (4) Pancreatitis Qualifiers: Chronicity: acute Acute pancreatitis complication: unspecified Is this a current diagnosis for this admission?: Yes (5) History of GI bleed Is this a current diagnosis for this admission?: Yes - Time Time Spent with patient: Will adjust dose of Lantus Patient was on split doses every 12 and seems to be hypoglycemic at night We will change Lantus to daily We will initiate 30 units of Lantus subcu daily tomorrow Await results of the CT abdomen and pelvis We will initiate pancreatic enzymes supplements Time Spent with patient: 25-34 minutes
--- NOTE | 2017-05-24 10:32 | RADIOLOGY REPORT (SQ) ---
EXAM DESCRIPTION: CT ABD/PELVIS WITH IV ORAL COMPLETED DATE/TIME: 05/24/2017 10:10 am REASON FOR STUDY: abdominal pain COMPARISON: Abdominal ultrasound 05/18/2017 CT abdomen pelvis 03/21/2016, 09/27/2015 TECHNIQUE: CT scan of the abdomen and pelvis performed using helical scanning technique with dynamic intravenous contrast injection. No oral contrast. Images reviewed with lung, soft tissue, and bone windows. Reconstructed coronal and sagittal MPR images reviewed. Delayed images for evaluation of the urinary system also acquired. All images stored on PACS. All CT scanners at this facility use dose modulation, iterative reconstruction, and/or weight based d osing when appropriate to reduce radiation dose to as low as reasonably achievable (ALARA). [facility]: Dose Right [facility]: CareDose [facility]: Dose Right [facility]: Teradose 4D [facility]: [email or web address] CONTRAST TYPE AND DOSE: contrast/concentration: Isovue 370.00 mg/ml; Total Contrast Delivered: 69.0 ml; Total Saline Delivered: 65.0 ml RENAL FUNCTION: Creatinine 0.95 RADIATION DOSE: CT Rad equipment meets quality standard of care and radiation dose reduction techniq ues were employed. CTDIvol: 6.0 - 6.8 mGy. DLP: 897 mGy-cm.. LIMITATIONS: None. FINDINGS: LOWER CHEST: Small hiatal hernia. Trace right pleural effusion. LIVER: Normal size. No masses. No dilated ducts. SPLEEN: Normal size. No focal lesions. PANCREAS: There are calcifications along the dorsal aspect of the pancreatic head and uncinate, uncha nged from studies dating back to 09/27/2015 likely from old calcific pancreatitis. On today's study, no retroperitoneal inflammation or retroperitoneal fluid is seen worrisome for acut e pancreatitis GALLBLADDER: No identified stones by CT criteria. No inflammatory changes to suggest cholecystitis. ADRENAL GLANDS: No significant masses or asymmetry. RIGHT KIDNEY AND URETER: No solid masses. No significant calcifications. No hydronephrosis or hyd roureter. LEFT KIDNEY AND URETER: No solid masses. No significant calcifications. No hydronephrosis or hydr oureter. AORTA AND VESSELS: No aneurysm. No dissection. Renal arteries, SMA, celiac without stenosis. RETROPERITONEUM: No retroperitoneal adenopathy, hemorrhage or masses. BOWEL AND PERITONEAL CAVITY: No masses or inflammatory changes. No free fluid or peritoneal masses. APPENDIX: Normal. PELVIS: No mass. No free fluid. Normal bladder. ABDOMINAL WALL: No masses. No hernias. BONES: There is grade 4 anterolisthesis of L5 over S1 with bony ankylosis of the bilateral L4-5 and b ilateral L5-S1 facet joints. This is unchanged from 09/27/2015 OTHER: No other significant finding. IMPRESSION: Pancreatic calcifications from old prior calcific pancreatitis. Currently, no retroperi toneal inflammation around the pancreas to suggest acute pancreatitis. No pseudocyst. TECHNICAL DOCUMENTATION: JOB ID: [id number] Quality ID # [id number]: Final reports with documentation of one or more dose reduction techniques (e.g., Au tomated exposure control, adjustment of the mA and/or kV according to patient size, use of iterative reconstruction technique) 2010 [employer]- All Rights Reserved Reading location - IP/workstation name: [email or web address]
[2017-05-24] MEDS: LISINOPRIL 5 MG TABLET PO SCH (11:36)
[2017-05-24] MEDS: OLANZAPINE 5 MG TAB.RAPDIS PO SCH ×2 (11:37→17:52)
[2017-05-24] MEDS: ENOXAPARIN SODIUM INJ 40 MG/0.4 ML DISP.SYRIN SUBCUT SCH (15:12)
[2017-05-24] MEDS: LIPASE/PROTEASE/AMYLASE 1 CAP CAPSULE.DR PO SCH (15:37)
[2017-05-24] MEDS: INSULIN LISPRO 100 UNIT/ML 3 ML VIAL SUBCUT PRN ×2 (16:00→21:18)
[2017-05-24] MEDS: PREGABALIN 75 MG CAPSULE PO SCH (17:49)
[2017-05-24] MEDS: FLUCONAZOLE 100 MG TABLET PO SCH (21:18)
[2017-05-25] MEDS: GABAPENTIN 300 MG CAPSULE PO SCH ×3 (02:59→17:31)
[2017-05-25] MEDS: INSULIN LISPRO 100 UNIT/ML 3 ML VIAL SUBCUT PRN ×4 (03:32→20:43)
[2017-05-25] MEDS: LANSOPRAZOLE 30 MG TAB.RAP.DR PO SCH ×2 (06:14→17:31)
[2017-05-25] MEDS: METOCLOPRAMIDE HCL INJ/PF 10 MG/2 ML SDV IV SCH ×3 (06:14→22:56)
[2017-05-25 06:39] LABS: HEPATITIS A AB IGM Negative (Negative); HEPATITIS B CORE AB IGM Negative (Negative); HEPATITS B SURFACE ANTIGEN Negative (Negative)
[2017-05-25 07:15] LABS: HEPATITIS C VIRUS ANTIBODY <0.1 s/co ratio (0.0-0.9)
[2017-05-25] MEDS: LIPASE/PROTEASE/AMYLASE 1 CAP CAPSULE.DR PO SCH ×2 (08:43→16:06)
[2017-05-25] MEDS: SUCRALFATE SUSP 1 GM/10 ML UDCUP PO SCH ×4 (08:43→22:56)
[2017-05-25 09:40] LABS: LIPASE 6595.2 U/L (23-300)
[2017-05-25] MEDS: LISINOPRIL 5 MG TABLET PO SCH (09:58)
[2017-05-25] MEDS: PREGABALIN 75 MG CAPSULE PO SCH ×2 (09:58→17:31)
[2017-05-25] MEDS: ENOXAPARIN SODIUM INJ 40 MG/0.4 ML DISP.SYRIN SUBCUT SCH (09:59)
[2017-05-25] MEDS: OLANZAPINE 5 MG TAB.RAPDIS PO SCH ×2 (09:59→17:31)
[2017-05-25] MEDS ORDERED: INSULIN GLARGINE,HUM.REC.ANLOG 1,000 UNIT/10 ML UNIT SUBCUT SCH ×2 (10:00→22:00)
[2017-05-25] MEDS ORDERED: INSULIN GLARGINE,HUM.REC.ANLOG 300 UNIT/3 ML INSULN.PEN SUBCUT SCH (18:30)
--- NOTE | 2017-05-25 18:42 | PDOC PROGRESS REPORT ---
Subjective Progress Note for:: 05/25/17 Subjective:: Patient states he is somewhat comfortable ; epigastric pain is improved Blood sugars are little better controlled Reason For Visit: DKA, SEPSIS Physical Exam Vital Signs: Temp Pulse Resp BP Pulse Ox 97.7 F 108 H 17 115/74 100 05/25/17 16:00 05/25/17 16:00 05/25/17 16:00 05/25/17 16:00 05/25/17 16:00 Intake & Output 05/24/17 05/25/17 05/26/17 00:59 00:59 00:59 Intake Total 3202 4856 2237 Balance 3202 4856 2237 General appearance: PRESENT: no acute distress, thin Head exam: PRESENT: atraumatic, normocephalic Eye exam: PRESENT: conjunctiva pink, EOMI, PERRLA. ABSENT: scleral icterus Respiratory exam: PRESENT: clear to auscultation alfonso. ABSENT: rales, rhonchi, wheezes Cardiovascular exam: PRESENT: RRR. ABSENT: gallop, systolic murmur, tachycardia Pulses: PRESENT: normal carotid pulses Vascular exam: PRESENT: normal capillary refill GI/Abdominal exam: PRESENT: tenderness - Epigastrium. ABSENT: mass, rebound, rigid Extremities exam: ABSENT: calf tenderness, joint swelling Musculoskeletal exam: PRESENT: ambulatory, full ROM Neurological exam: PRESENT: alert, awake, CN II-XII grossly intact Psychiatric exam: PRESENT: appropriate affect, normal mood Results Laboratory Results: 05/23/17 05:50 05/24/17 06:00 05/20/17 05:45 Lipase 6595.2 H 05/23/17 14:25 Stool - Stool - Final 05/23/17 14:25 Stool - Stool Stool Culture - Final NO SALMONELLA, SHIGELLA, CAMPYLOBACTER, OR E.COLI 0157 RECOVERED. NEGATIVE FOR SHIGA TOXINS 1&2. Impressions: Chest X-Ray 05/17/17 04:13 IMPRESSION: No acute cardiopulmonary findings. Central line. Abdomen Ultrasound 05/18/17 00:00 IMPRESSION: Echogenic liver from fatty infiltration or diffuse hepatocellular disease No gallstones, gallbladder wall thickening or pericholecystic fluid. Midline pancreas unremarkable Abdomen/Pelvis CT 05/24/17 06:00 IMPRESSION: Pancreatic calcifications from old prior calcific pancreatitis. Currently, no retroperitoneal inflammation around the pancreas to suggest acute pancreatitis. No pseudocyst. Assessment & Plan - Diagnosis (1) History of substance abuse Is this a current diagnosis for this admission?: Yes (2) Anemia Qualifiers: Anemia type: unspecified type Qualified Code(s): D64.9 - Anemia, unspecified Is this a current diagnosis for this admission?: Yes Plan: Anemia of chronic disease all indices are normal (3) DKA (diabetic ketoacidoses) Qualifiers: Diabetes mellitus type: type 1 Diabetes mellitus complication detail: without coma Qualified Code(s): E10.10 - Type 1 diabetes mellitus with ketoacidosis without coma Is this a current diagnosis for this admission?: Yes Plan: Blood sugars seem better controlled (4) Pancreatitis Qualifiers: Chronicity: acute Acute pancreatitis complication: unspecified Is this a current diagnosis for this admission?: Yes Plan: Acute on chronic pancreatitis CT abdomen and pelvis showed evidence of pancreatic calcifications Lipase is still quite elevated and is likely chronically elevated We have initiated pancreatic enzymes and Lyrica with some improvement of the pain Repeat labs in a.m. (5) History of GI bleed Is this a current diagnosis for this admission?: Yes Plan: No evidence of GI bleed at this time Stools for occult blood are negative We have discontinued Lovenox prophylaxis though as the patient is markedly anemic - Time Time Spent with patient: Evaluate patient for discharge in a.m. Time Spent with patient: 25-34 minutes
[2017-05-26] MEDS: GABAPENTIN 300 MG CAPSULE PO SCH ×3 (01:48→17:36)
[2017-05-26] MEDS: METOCLOPRAMIDE HCL INJ/PF 10 MG/2 ML SDV IV SCH ×3 (05:36→22:47)
[2017-05-26] MEDS: LANSOPRAZOLE 30 MG TAB.RAP.DR PO SCH ×2 (05:36→16:27)
[2017-05-26 06:21] LABS: ALANINE AMINOTRANSFERASE 44 U/L (21-72); ALBUMIN 2.9 g/dL (3.5-5.0); ALKALINE PHOSPHATASE 92 U/L (38-126); ANION GAP 11 (5-19); ASPARTATE AMINO TRANSFERASE 66 U/L (17-59); BLOOD UREA NITROGEN 21 mg/dL (7-20); CALCIUM 9.3 mg/dL (8.4-10.2); CARBON DIOXIDE 15 mmol/L (22-30); CHLORIDE 113 mmol/L (98-107); POTASSIUM 5.7 mmol/L (3.6-5.0); SODIUM 138.7 mmol/L (137-145); TOTAL PROTEIN 5.4 g/dL (6.3-8.2)
[2017-05-26 06:27] LABS: BILIRUBIN,TOTAL < 0.1 mg/dL (0.2-1.3)
[2017-05-26 06:31] LABS: GLUCOSE 416 mg/dL (75-110)
[2017-05-26 06:45] LABS: LIPASE 6472.4 U/L (23-300)
[2017-05-26] MEDS ORDERED: INSULIN GLARGINE,HUM.REC.ANLOG 1,000 UNIT/10 ML UNIT SUBCUT ONE (06:45)
[2017-05-26] MEDS: INSULIN LISPRO 100 UNIT/ML 3 ML VIAL SUBCUT PRN ×3 (06:52→16:27)
[2017-05-26] MEDS: LIPASE/PROTEASE/AMYLASE 1 CAP CAPSULE.DR PO SCH ×2 (08:14→16:27)
[2017-05-26] MEDS: SUCRALFATE SUSP 1 GM/10 ML UDCUP PO SCH ×4 (08:14→22:47)
[2017-05-26] MEDS: PROMETHAZINE HCL 25 MG TABLET PO PRN ×2 (08:18→17:36)
[2017-05-26] MEDS: PREGABALIN 75 MG CAPSULE PO SCH ×2 (09:37→17:36)
[2017-05-26] MEDS: OLANZAPINE 5 MG TAB.RAPDIS PO SCH ×2 (09:37→17:36)
[2017-05-26] MEDS ORDERED: INSULIN GLARGINE,HUM.REC.ANLOG 1,000 UNIT/10 ML UNIT SUBCUT SCH ×5 (10:00→22:00)
[2017-05-26] MEDS ORDERED: SODIUM POLYSTYRENE SULFONATE 15 GM/60 ML PO ONE (10:45)
--- NOTE | 2017-05-26 18:45 | PDOC PROGRESS REPORT ---
Subjective Progress Note for:: 05/26/17 Subjective:: Patient's pain is somewhat improved His blood sugars are still very erratic Is otherwise quite stable Lipase is coming down to 6000 Reason For Visit: DKA, SEPSIS Physical Exam Vital Signs: Temp Pulse Resp BP Pulse Ox 98.1 F 115 H 16 120/71 100 05/26/17 16:00 05/26/17 16:00 05/26/17 16:00 05/26/17 16:00 05/26/17 16:00 Intake & Output 05/25/17 05/26/17 05/27/17 00:59 00:59 00:59 Intake Total 4856 2917 2120 Balance 4856 2917 2120 General appearance: PRESENT: no acute distress, thin Head exam: PRESENT: atraumatic, normocephalic Eye exam: PRESENT: conjunctiva pink, EOMI, PERRLA. ABSENT: scleral icterus Respiratory exam: PRESENT: clear to auscultation alfonso. ABSENT: rales, rhonchi, wheezes Cardiovascular exam: PRESENT: RRR. ABSENT: gallop, systolic murmur, tachycardia Pulses: PRESENT: normal carotid pulses Vascular exam: PRESENT: normal capillary refill GI/Abdominal exam: PRESENT: tenderness - Epigastrium. ABSENT: mass, rebound, rigid Extremities exam: ABSENT: calf tenderness, joint swelling Musculoskeletal exam: PRESENT: ambulatory, full ROM Neurological exam: PRESENT: alert, awake, CN II-XII grossly intact Psychiatric exam: PRESENT: appropriate affect, normal mood Results Laboratory Results: 05/23/17 05:50 05/26/17 06:00 05/26/17 06:00 Sodium 138.7 Potassium 5.7 H Chloride 113 H Carbon Dioxide 15 L Anion Gap 11 BUN 21 H Creatinine 1.09 Est GFR ( Amer) > 60 Est GFR (Non-Af Amer) > 60 Glucose 416 H* Calcium 9.3 Total Bilirubin < 0.1 L AST 66 H ALT 44 Alkaline Phosphatase 92 Total Protein 5.4 L Albumin 2.9 L Lipase 6472.4 H Impressions: Chest X-Ray 05/17/17 04:13 IMPRESSION: No acute cardiopulmonary findings. Central line. Abdomen Ultrasound 05/18/17 00:00 IMPRESSION: Echogenic liver from fatty infiltration or diffuse hepatocellular disease No gallstones, gallbladder wall thickening or pericholecystic fluid. Midline pancreas unremarkable Abdomen/Pelvis CT 05/24/17 06:00 IMPRESSION: Pancreatic calcifications from old prior calcific pancreatitis. Currently, no retroperitoneal inflammation around the pancreas to suggest acute pancreatitis. No pseudocyst. Assessment & Plan - Diagnosis (1) History of substance abuse Is this a current diagnosis for this admission?: Yes (2) Anemia Qualifiers: Anemia type: unspecified type Qualified Code(s): D64.9 - Anemia, unspecified Is this a current diagnosis for this admission?: Yes (3) DKA (diabetic ketoacidoses) Qualifiers: Diabetes mellitus type: type 1 Diabetes mellitus complication detail: without coma Qualified Code(s): E10.10 - Type 1 diabetes mellitus with ketoacidosis without coma Is this a current diagnosis for this admission?: Yes (4) Pancreatitis Qualifiers: Chronicity: acute Acute pancreatitis complication: unspecified Is this a current diagnosis for this admission?: Yes (5) History of GI bleed Is this a current diagnosis for this admission?: Yes - Time Time Spent with patient: continue present management increase ronnytus may be discharged in am if stable
[2017-05-27] MEDS: GABAPENTIN 300 MG CAPSULE PO SCH ×2 (03:09→09:25)
[2017-05-27] MEDS: LANSOPRAZOLE 30 MG TAB.RAP.DR PO SCH ×2 (05:47→16:39)
[2017-05-27] MEDS: METOCLOPRAMIDE HCL INJ/PF 10 MG/2 ML SDV IV SCH ×2 (05:49→14:20)
[2017-05-27] MEDS: INSULIN LISPRO 100 UNIT/ML 3 ML VIAL SUBCUT PRN ×2 (07:50→16:43)
[2017-05-27] MEDS: SUCRALFATE SUSP 1 GM/10 ML UDCUP PO SCH ×3 (07:50→16:39)
[2017-05-27] MEDS: LIPASE/PROTEASE/AMYLASE 1 CAP CAPSULE.DR PO SCH ×2 (07:52→16:39)
[2017-05-27] MEDS: PREGABALIN 75 MG CAPSULE PO SCH (09:25)
[2017-05-27] MEDS: OLANZAPINE 5 MG TAB.RAPDIS PO SCH (09:25)
--- NOTE | 2017-05-27 12:39 | PDOC DISCHARGE SUMMARY ---
General - Admit/Disc Date/PCP Admission Date/Primary Care Provider: 05/16/17 22:34 [facility] Discharge Date: 05/27/17 - Discharge Diagnosis (1) History of substance abuse Is this a current diagnosis for this admission?: Yes (2) Anemia Is this a current diagnosis for this admission?: Yes (3) DKA (diabetic ketoacidoses) Is this a current diagnosis for this admission?: Yes (4) Pancreatitis Is this a current diagnosis for this admission?: Yes (5) History of GI bleed Is this a current diagnosis for this admission?: Yes - Additional Information Discharge Diet: Diabetic Discharge Activity: Activity As Tolerated Prescriptions: Insulin Glargine,Hum.rec.anlog [Lantus Insulin 100 Unit/1 ml 10 ml] 20 unit SUBCUT QHS 30 Days #3 pe Gabapentin 300 mg PO TID 30 Days #90 capsule Insulin Glargine,Hum.rec.anlog [Lantus Insulin 100 Unit/1 ml 10 ml] 35 unit SUBCUT DAILY 30 Days #3 pe Insulin Lispro [Humalog Insulin (Lispro) 100 unit/mL] 0 - 12 unit SUBCUT ACHSP PRN 30 Days #3 unit PRN Reason: Lansoprazole [Prevacid 30 mg Odt Tablet] 30 mg PO BID@0600,1700 30 Days #60 tab.rap. Lipase/Protease/Amylase [Pancreaze-10 Capsule.] 1 cap PO BIDACBS 30 Days #60 capsule. Pregabalin [Lyrica 75 mg Capsule] 75 mg PO BID 30 Days #60 capsule Home Medications: Gabapentin 300 mg PO TID 30 Days #90 capsule 05/27/17 Insulin Glargine,Hum.rec.anlog [Lantus Insulin 100 Unit/1 ml 10 ml] 20 unit SUBCUT QHS 30 Days #3 pe 05/27/17 Insulin Glargine,Hum.rec.anlog [Lantus Insulin 100 Unit/1 ml 10 ml] 35 unit SUBCUT DAILY 30 Days #3 pe 05/27/17 Insulin Lispro [Humalog Insulin (Lispro) 100 unit/mL] 0 - 12 unit SUBCUT ACHSP PRN 30 Days #3 unit 05/27/17 Lansoprazole [Prevacid 30 mg Odt Tablet] 30 mg PO BID@0600,1700 30 Days #60 tab. 05/27/17 Lipase/Protease/Amylase [Pancreaze-10 Capsule.dr] 1 cap PO BIDACBS 30 Days #60 capsule. 05/27/17 Pregabalin [Lyrica 75 mg Capsule] 75 mg PO BID 30 Days #60 capsule 05/27/17 History of Present Illness Patient complains of: high blood sugar History of Present Illness: CHESTER MCKEON is a 37 year old black male patient brought by EMS for high blood sugar. Since patient is somewhat sedated and difficult to awaken him, history is obtained from chart review and ER attending note. Patient is well- known to the hospitalist service because of his recurrent admission for DKA and her last discharge was a week ago with the same problems. On arrival patient was found to be hypothermic with temperature of 91. His initial blood work shows severe hyperglycemia with blood sugar of 1115, bicarb less than 5, potassium of 6.1, sodium of 124 and white cell count of 21,000 and drug urine screen is positive for cocaine. His lipase is also markedly elevated which is 4928 but the patient does not have any complaints of abdominal pain per ER attending note, we will check his lipase level in the morning and will request ultrasound of the abdomen or CT. Patient has been started on aggressive hydration, insulin drip and for his hypothermia he was put on bear hug. Detailed history and review of systems is unobtainable. Hospital Course Hospital Course: Patient is 37-year-old with a known history of diabetes insulin-dependent who presented With hyperglycemia, diabetes ketoacidosis and abdominal pain Patient was treated with IV infusion of regular insulin following DKA protocol Acidosis resolved patient had extremely brittle blood sugars and it was somewhat difficult to regulate Lantus insulin Continue to complain of severe abdominal pain epigastric constant CT abdomen and pelvis was suggestive of chronic pancreatitis with dense pancreatic calcifications Patient's lipase range from 4000 to 10,000 Patient was treated with PPI, Carafate, pancreatic enzymes Lyrica and gabapentin were initiated for chronic abdominal pain He progressively improved and at discharge he is tolerating a diet and the pain has decreased dramatically although the lipase is still 6000 Patient was diagnosed with chronic anemia with hemoglobin of 8 and hematocrit of 27 Serum iron folate and vitamin B12 were all within normal range Platelet count was in normal range Patient was discharged on the above medications to be followed as an outpatient at the [facility] Applications free medication programs were initiated for Lyrica and lispro insulin Physical Exam Vital Signs: Temp Pulse Resp BP Pulse Ox 99.4 F 112 H 16 101/69 98 05/27/17 11:59 05/27/17 11:59 05/27/17 11:59 05/27/17 11:59 05/27/17 11:59 Intake & Output 05/26/17 05/27/17 05/28/17 00:59 00:59 00:59 Intake Total 2917 2920 Balance 2917 2920 Weight 65.5 kg General appearance: PRESENT: no acute distress, thin Head exam: PRESENT: atraumatic, normocephalic Eye exam: PRESENT: conjunctiva pink, EOMI, PERRLA. ABSENT: scleral icterus Respiratory exam: PRESENT: clear to auscultation alfonso. ABSENT: rales, rhonchi, wheezes Cardiovascular exam: PRESENT: RRR. ABSENT: gallop, systolic murmur, tachycardia Pulses: PRESENT: normal carotid pulses Vascular exam: PRESENT: normal capillary refill GI/Abdominal exam: PRESENT: tenderness - Epigastrium. ABSENT: mass, rebound, rigid Extremities exam: ABSENT: calf tenderness, joint swelling Musculoskeletal exam: PRESENT: ambulatory, full ROM Neurological exam: PRESENT: alert, awake, CN II-XII grossly intact Psychiatric exam: PRESENT: appropriate affect, normal mood Results Laboratory Results: 05/23/17 05:50 05/26/17 06:00 Impressions: Chest X-Ray 05/17/17 04:13 IMPRESSION: No acute cardiopulmonary findings. Central line. Abdomen Ultrasound 05/18/17 00:00 IMPRESSION: Echogenic liver from fatty infiltration or diffuse hepatocellular disease No gallstones, gallbladder wall thickening or pericholecystic fluid. Midline pancreas unremarkable Abdomen/Pelvis CT 05/24/17 06:00 IMPRESSION: Pancreatic calcifications from old prior calcific pancreatitis. Currently, no retroperitoneal inflammation around the pancreas to suggest acute pancreatitis. No pseudocyst. Qualifiers - * PATEINT BEING DISCHARGED WITH ANY OF THE FOLLOWING DIAGNOSIS?: No
[2017-05-27 16:07] VITALS: BP 135/85
== END 2017-05-27 17:38 | disposition home or self-care (01) | DRG 871 ==
LOC: ER 19:40 → EH 22:34 → ICU 05-17 07:35 → 5 05-20 20:39
PROVIDERS: ADMIT Internal Medicine; ATTEND Internal Medicine
PROC: 02H633Z Insertion of Infusion Device into Right Atrium, Percutaneous Approach (ICD-10-PCS; principal; 2017-05-16)
PROC: B244ZZZ Ultrasonography of Right Heart (ICD-10-PCS; 2017-05-16)
PROC: 30233N1 Transfusion of Nonautologous Red Blood Cells into Peripheral Vein, Percutaneous Approach (ICD-10-PCS; 2017-05-19)
DX: A41.9 Sepsis, unspecified organism (principal); E10.10 Type 1 diabetes mellitus with ketoacidosis without coma; K85.90 Acute pancreatitis without necrosis or infection, unspecified; K86.1 Other chronic pancreatitis; N17.9 Acute kidney failure, unspecified; E87.1 Hypo-osmolality and hyponatremia; E78.00 Pure hypercholesterolemia, unspecified; I10 Essential (primary) hypertension; K21.9 Gastro-esophageal reflux disease without esophagitis; D63.8 Anemia in other chronic diseases classified elsewhere; E87.6 Hypokalemia; G89.4 Chronic pain syndrome; F19.10 Other psychoactive substance abuse, uncomplicated; F14.10 Cocaine abuse, uncomplicated; F17.210 Nicotine dependence, cigarettes, uncomplicated; E87.5 Hyperkalemia; Z91.19 Patient's noncompliance with other medical treatment and regimen; Z79.4 Long term (current) use of insulin; Z79.899 Other long term (current) drug therapy; Z88.8 Allergy status to other drugs, medicaments and biological substances; Z83.3 Family history of diabetes mellitus; Z82.49 Family history of ischemic heart disease and other diseases of the circulatory system
CPT/HCPCS: 36415; 36430; 71045; 74177; 76700; 80048; 80053; 80074; 80307; 81001; 82272; 82550; 82553; 82607; 82728; 82746; 82803; 82947; 82962; 83540; 83550; 83605; 83690; 83735; 84100; 84466; 84478; 84484; 85025; 85027; 85045; 86701; 86850; 86900; 86901; 86920; 87040; 87045; 87205; 87493; 93005; 93010; 96361; 96365; 96375; 96376; 99291; C1751; J1650; J1815; J2270; J2543; J2550; J2765; J3370; J3480; J3490; J7030; J7060; J7120; P9016; S0028

== ENCOUNTER 2017-07-04 17:45 | Inpatient (IN) | payer SELFPAY ==
[2017-07-04] MEDS ORDERED: NORMAL SALINE 1000 ML 1,000 ML IV ONE (18:33)
[2017-07-04] MEDS ORDERED: ACETAMINOPHEN 325 MG TABLET PO ONE (18:34)
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
--- NOTE | 2017-07-04 19:19 | RADIOLOGY REPORT (SQ) ---
EXAM DESCRIPTION: FINGER LEFT COMPLETED DATE/TIME: 07/04/2017 7:09 pm REASON FOR STUDY: L 3rd digit swelling; osteo? COMPARISON: None. NUMBER OF VIEWS: Three views. TECHNIQUE: AP, lateral, and oblique images acquired of the left third finger. LIMITATIONS: None. FINDINGS: MINERALIZATION: Normal. BONES: There is disruption of the DIP joint with pole are displacement of the distal phalanx. Destru ctive changes and fragmentation involving the distal end of the middle phalanx. SOFT TISSUES: Soft tissue swelling. No foreign body. OTHER: No other significant finding. IMPRESSION: FINDINGS INVOLVING THE DIP JOINT. DESTRUCTIVE CHANGES INVOLVING THE DISTAL END OF THE M IDDLE PHALANX CONCERNING FOR OSTEOMYELITIS. COMMENT: SITE OF TRAUMA/COMPLAINT MARKED/STAMP COMPLETED: YES. TECHNICAL DOCUMENTATION: JOB ID: [id number] [employer]- All Rights Reserved Reading location - IP/workstation name: [email or web address]
[2017-07-04 19:46] LABS: ABSOLUTE BASOPHILS # (AUTO) 0.1 10^3/uL (0.0-0.2); ABSOLUTE EOSINOPHILS # (AUTO) 0.2 10^3/uL (0.0-0.6); ABSOLUTE LYMPHOCYTES (AUTO) 1.4 10^3/uL (0.5-4.7); ABSOLUTE MONOCYTES (AUTO) 0.8 10^3/uL (0.1-1.4); ABSOLUTE NEUT (AUTO) 7.8 10^3/uL (1.7-8.2); BASOPHILS % (AUTO) 1.3 % (0-2); EOSINOPHILS % (AUTO) 2.4 % (0-6); HEMATOCRIT 27.8 % (37.9-51.0); HEMOGLOBIN 8.8 g/dL (13.5-17.0); LYMPHOCYTES % (AUTO) 13.2 % (13-45); MEAN CORPUSCULAR HEMOGLOBIN 25.2 pg (27.0-33.4); MEAN CORPUSCULAR HGB CONC 31.9 g/dL (32.0-36.0); MEAN CORPUSCULAR VOLUME 79 fl (80-97); MONOCYTES % (AUTO) 7.5 % (3-13); PLATELET COUNT 457 10^3/uL (150-450); RED BLOOD COUNT 3.51 10^6/uL (4.35-5.55); RED CELL DISTRIBUTION WIDTH 17.1 % (11.5-14.0); SEGMENTED NEUTROPHILS % (AUTO) 75.6 % (42-78); TOTAL CELLS COUNTED % (AUTO) 100 %; WHITE BLOOD COUNT 10.3 10^3/uL (4.0-10.5)
[2017-07-04] MEDS ORDERED: VANCOMYCIN HCL INJ 1000 MG VIAL IV ONE (20:15)
[2017-07-04] MEDS ORDERED: PIPERACILLIN/TAZOBACTAM 3.375 GM VIAL IV ONE (20:15)
--- NOTE | 2017-07-04 20:48 | ER Document Report ---
ED General - General Chief Complaint: Wound Infection Stated Complaint: ARM PAIN Time Seen by Provider: 07/04/17 18:29 Notes: Patient is a 37-year-old male with a past medical history of insulin-dependent diabetes type 1, history of polysubstance abuse and noncompliance who presents with a wound to the dorsal aspect of his left middle finger. Patient states that the area started as an abrasion approximately 1 week ago has become increasingly swollen, erythematous and painful over the last 3 days. He describes an associated dull, throbbing, constant pain. It is worsened by touching the area or moving the finger. Nothing improves the pain. He denies any history of similar symptoms in the past. He is right-hand dominant. He denies any associated fever or constitutional symptoms. He states that he lost his insulin and has not taken insulin or checked his blood sugar in 4 days. He does not have a primary care doctor whom he can see regarding this issue. TRAVEL OUTSIDE OF THE [place] IN LAST 30 DAYS: No - Related Data Allergies/Adverse Reactions: ondansetron [From Zofran (as hydrochloride)] Allergy (Verified 05/06/17 12:35) Past Medical History - General Information source: Patient - Social History Smoking Status: Former Smoker Chew tobacco use (# tins/day): No Frequency of alcohol use: None Drug Abuse: Marijuana Lives with: Family Family History: DM, Hyperlipidemia, Hypertension Patient has suicidal ideation: No Patient has homicidal ideation: No - Past Medical History Cardiac Medical History: Reports: Hx Hypercholesterolemia - On no medication for same., Hx Hypertension - Taken off medication for same. Denies: Hx Atrial Fibrillation, Hx Congestive Heart Failure, Hx Coronary Artery Disease, Hx Heart Attack, Hx Pulmonary Embolism Pulmonary Medical History: Denies: Hx Asthma, Hx COPD, Hx Sleep Apnea Neurological Medical History: Denies: Hx Seizures Endocrine Medical History: Reports: Hx Diabetes Mellitus Type 1. Denies: Hx Diabetes Mellitus Type 2, Hx Hyperthyroidism, Hx Hypothyroidism Renal/ Medical History: Denies: Hx Peritoneal Dialysis GI Medical History: Reports: Hx Gastroesophageal Reflux Disease, Hx Pancreatitis. Denies: Hx Cirrhosis, Hx Hepatitis Musculoskeltal Medical History: Denies Hx Arthritis Psychiatric Medical History: Reports: Hx Depression Infectious Medical History: Denies: Hx Hepatitis Past Surgical History: Reports: Hx Orthopedic Surgery - back. Denies: Hx Appendectomy, Hx Cholecystectomy, Hx Tonsillectomy - Immunizations Hx Diphtheria, Pertussis, Tetanus Vaccination: Yes Hx Pneumococcal Vaccination: 11/09/11 Review of Systems - Review of Systems Notes: Constitutional: Negative for fever. Positive for general fatigue. HENT: Negative for sore throat. Eyes: Negative for visual changes. Cardiovascular: Negative for chest pain. Respiratory: Negative for shortness of breath. Gastrointestinal: Negative for abdominal pain, vomiting or diarrhea. Genitourinary: Negative for dysuria. Musculoskeletal: Positive for left middle finger wound Skin: Negative for rash. Neurological: Negative for headaches, weakness or numbness. 10 point ROS negative except as marked above and in HPI. Physical Exam - Vital signs Vitals: Temp Pulse Resp BP Pulse Ox 98.6 F 103 H 20 118/77 96 07/04/17 17:57 07/04/17 17:57 07/04/17 17:57 07/04/17 17:57 07/04/17 17:57 Interpretation: Tachycardic Notes: PHYSICAL EXAMINATION: GENERAL: Appears slightly unwell but in no acute distress HEAD: Atraumatic, normocephalic. EYES: Pupils equal round and reactive to light, extraocular movements intact, sclera anicteric, conjunctiva are normal. ENT: nares patent, oropharynx clear without exudates. Moderately dry mucous membranes. NECK: Normal range of motion, supple without lymphadenopathy LUNGS: Breath sounds clear to auscultation bilaterally and equal. No wheezes rales or rhonchi. HEART: Regular rate and rhythm without murmurs ABDOMEN: Soft, nontender, normoactive bowel sounds. No guarding, no rebound. No masses appreciated. EXTREMITIES: There is a 1 x 1 cm ulcerating lesion just above the DIP of the left middle finger with associated diffuse swelling and edema second and third digits extending over almost the entirety of the dorsum of left hand. No pain on palpation of the flexor sheath. The finger is not held in flexion NEUROLOGICAL: No focal neurological deficits. Moves all extremities spontaneously and on command. PSYCH: Normal mood, normal affect. SKIN: Warm, Dry, normal turgor, no rashes or lesions noted. Course - Re-evaluation Re-evalutation: 07/04/17 20:46 Patient is a 37-year-old male with a history of insulin-dependent type 1 diabetes with poor control, has not taken his insulin in 4 days who presents with progressively worsening pain and swelling to his left middle finger along the dorsal aspect just above the DIP level. X-ray confirms clinical concern for acute osteomyelitis. There is no evidence of an associated cellulitis on examination although the entirety of the dorsal aspect of his hand is quite edematous and painful to palpation. Patient's BGL is 480 initial check. Concerned the patient could also be a diabetic ketoacidosis. Will proceed with broad laboratories, begin IV fluids, Zosyn and vancomycin. He will require hospitalization and consultation with orthopedic surgery. Await laboratories and then will discuss with the inpatient services. 07/04/17 21:45 Labs show marked hyperglycemia but no evidence of acute diabetic ketoacidosis. I discussed this case with orthopedic surgeon director radiation oncology Dr. Long who recommends IV antibiotics and will consult on the patient. Patient has been given 14 units of subcutaneous insulin for his hyperglycemia and does not currently have encouraged her to begin insulin infusion. I will discuss with the inpatient service Dr. Guzman for hospitalization. - Vital Signs Vital signs: Temp Pulse Resp BP Pulse Ox 97.5 F 82 16 102/59 L 100 07/04/17 23:51 07/05/17 02:00 07/04/17 23:51 07/04/17 23:51 07/04/17 23:51 - Laboratory Result Diagrams: 07/04/17 19:20 07/04/17 20:45 Laboratory results interpreted by me: 07/04/17 07/04/17 07/04/17 19:20 20:45 20:45 RBC 3.51 L Hgb 8.8 L Hct 27.8 L MCV 79 L MCH 25.2 L MCHC 31.9 L RDW 17.1 H Plt Count 457 H ESR > 120 H VBG HCO3 19.3 L Sodium 134.2 L Carbon Dioxide 18 L Glucose 536 H* AST 11 L Alkaline Phosphatase 148 H Albumin 3.3 L - Diagnostic Test Radiology reviewed: Image reviewed, Reports reviewed Radiology results interpreted by me: 07/04/17 20:47 Left hand x-ray: Apparent osteoma ellipse of the left middle finger Discharge - Discharge Clinical Impression: Noncompliance, Osteomyelitis of finger of left hand, Hyperglycemia Condition: Fair Disposition: ADMITTED INPATIENT Admitting Provider: Hospitalist Unit Admitted: Telemetry
[2017-07-04 20:59] LABS: VENOUS BLOOD BASE EXCESS -5.9 mmol/L; VENOUS BLOOD HCO3 19.3 mmol/L (20-32); VENOUS BLOOD PCO2 36.8 mmHg (35-63); VENOUS BLOOD PH 7.34 (7.30-7.42)
[2017-07-04 21:16] LABS: ERYTHROCYTE SEDIMENTATION RATE > 120 mm/hr (0-15)
[2017-07-04 21:18] LABS: ALANINE AMINOTRANSFERASE 23 U/L (21-72); ALBUMIN 3.3 g/dL (3.5-5.0); ALKALINE PHOSPHATASE 148 U/L (38-126); ANION GAP 14 (5-19); ASPARTATE AMINO TRANSFERASE 11 U/L (17-59); BILIRUBIN,DIRECT 0.3 mg/dL (0.0-0.4); BILIRUBIN,TOTAL 0.3 mg/dL (0.2-1.3); BLOOD UREA NITROGEN 12 mg/dL (7-20); CARBON DIOXIDE 18 mmol/L (22-30); CHLORIDE 102 mmol/L (98-107); POTASSIUM 4.6 mmol/L (3.6-5.0); SODIUM 134.2 mmol/L (137-145); TOTAL PROTEIN 6.8 g/dL (6.3-8.2)
[2017-07-04 21:29] LABS: GLUCOSE 536 mg/dL (75-110)
[2017-07-04] MEDS ORDERED: INSULIN REG, HUMAN 100 UNIT/ML 3 ML VIAL (PYX) SUBCUT ONE (21:41)
[2017-07-04] MEDS ORDERED: MAG HYDROX/AL HYDROX/SIMETH SUSP 30 ML UDCUP PO PRN (22:18)
[2017-07-04] MEDS ORDERED: GLUCAGON,HUMAN RECOMB 1 MG INJ IM PRN (22:18)
[2017-07-04] MEDS ORDERED: ACETAMINOPHEN 650 MG SUPP.RECT PR PRN (22:18)
[2017-07-04] MEDS ORDERED: DEXTROSE 40% GEL 15 GM TUBE PO PRN ×2 (22:18)
[2017-07-04] MEDS ORDERED: MAGNESIUM HYDROXIDE SUSP 30 ML UDCUP PO PRN (22:18)
[2017-07-04] MEDS ORDERED: IPRATROPIUM/ALBUTEROL 0.5-2.5 MG/3 ML AMPUL NEB PRN (22:18)
[2017-07-04] MEDS ORDERED: DEXTROSE 50%-WATER 25 GM/50 ML DISP.SYRIN IV PRN ×2 (22:18)
[2017-07-04] MEDS ORDERED: NORMAL SALINE 1000 ML 1,000 ML IV PRN (22:30)
[2017-07-04] MEDS ORDERED: VANCOMYCIN HCL 0 MG in DEXTROSE 5%-WATER 250 ML IV NR (22:30)
[2017-07-04] MEDS ORDERED: PIPERACILLIN/TAZOBACTAM 3.375 GM VIAL IV PRN (23:15)
[2017-07-04] MEDS ORDERED: INSULIN GLARGINE,HUM.REC.ANLOG 1,000 UNIT/10 ML UNIT SUBCUT ONE (23:15)
[2017-07-04] MEDS ORDERED: INSULIN GLARGINE,HUM.REC.ANLOG 300 UNIT/3 ML INSULN.PEN SUBCUT ONE (23:44)
[2017-07-05] MEDS ORDERED: PIPERACILLIN SODIUM/TAZOBACTAM 3.375 GM in NORMAL SALINE 100 ML IV SCH (03:00)
[2017-07-05] MEDS: MORPHINE SULFATE 10 MG/ML INJ IV PRN ×4 (04:10→13:21)
[2017-07-05] MEDS ORDERED: PIPERACILLIN/TAZOBACTAM 3.375 GM VIAL IV ONE (05:02)
[2017-07-05] MEDS: HEPARIN SOD (PORCINE) 5,000 UNIT/ML 1 ML SYRINGE SUBCUT SCH ×3 (05:38→23:39)
[2017-07-05 05:48] LABS: ABSOLUTE BASOPHILS # (AUTO) 0.1 10^3/uL (0.0-0.2); ABSOLUTE EOSINOPHILS # (AUTO) 0.3 10^3/uL (0.0-0.6); ABSOLUTE LYMPHOCYTES (AUTO) 1.4 10^3/uL (0.5-4.7); ABSOLUTE MONOCYTES (AUTO) 0.8 10^3/uL (0.1-1.4); ABSOLUTE NEUT (AUTO) 5.4 10^3/uL (1.7-8.2); BASOPHILS % (AUTO) 1.5 % (0-2); EOSINOPHILS % (AUTO) 3.5 % (0-6); HEMATOCRIT 29.2 % (37.9-51.0); HEMOGLOBIN 9.3 g/dL (13.5-17.0); LYMPHOCYTES % (AUTO) 17.4 % (13-45); MEAN CORPUSCULAR VOLUME 78 fl (80-97); MONOCYTES % (AUTO) 9.5 % (3-13); PLATELET COUNT 390 10^3/uL (150-450); RED BLOOD COUNT 3.74 10^6/uL (4.35-5.55); RED CELL DISTRIBUTION WIDTH 16.8 % (11.5-14.0); SEGMENTED NEUTROPHILS % (AUTO) 68.1 % (42-78); TOTAL CELLS COUNTED % (AUTO) 100 %
--- NOTE | 2017-07-05 06:22 | PDOC CONSULTATION ---
Consultation Consult Date: 07/05/17 Consult reason:: Left long finger History of Present Illness Admission Date/PCP: 07/04/17 22:24 History of Present Illness: CHESTER MCKEON is a 37 year old male who is noncompliant from my diabetes management standpoint presents with a swollen left long finger after superficial abrasion several days ago. Evaluation in the emergency room suggest an underlying osteomyelitis of the finger. Patient is admitted to the medical service for management of his diabetes and orthopedics was consulted for management of his finger infection. Past Medical History Cardiac Medical History: Reports: Hyperlipidema - On no medication for same., Hypertension - Taken off medication for same. Denies: Atrial Fibrillation, Congestive Heart Failure, Coronary Artery Disease, Myocardial Infarction, Pulmonary Embolism Pulmonary Medical History: Denies: Asthma, Chronic Obstructive Pulmonary Disease (COPD), Sleep Apnea Neurological Medical History: Denies: Seizures Endocrine Medical History: Reports: Diabetes Mellitus Type 1 Denies: Diabetes Mellitus Type 2, Hyperthyroidism, Hypothyroidism GI Medical History: Reports: Gastroesophageal Reflux Disease Denies: Cirrhosis, Hepatitis Musculoskeltal Medical History: Denies: Arthritis Psychiatric Medical History: Reports: Depression Hematology: Reports: Anemia - Chronic illnesses Past Surgical History Past Surgical History: Reports: Orthopedic Surgery Denies: Appendectomy, Cholecystectomy, Tonsillectomy Social History Information Source: Patient, [facility] Records Lives with: Family Smoking Status: Former Smoker Frequency of Alcohol Use: None Hx Recreational Drug Use: Yes Drugs: Marijuana Hx Prescription Drug Abuse: Yes Family History Family History: DM, Hyperlipidemia, Hypertension Parental Family History Reviewed: No Children Family History Reviewed: No Sibling(s) Family History Reviewed.: No Medication/Allergy Home Medications: Gabapentin 300 mg PO TID 30 Days #90 capsule 05/27/17 Insulin Glargine,Hum.rec.anlog [Lantus Insulin 100 Unit/1 ml 10 ml] 20 unit SUBCUT QHS 30 Days #3 pe 05/27/17 Insulin Glargine,Hum.rec.anlog [Lantus Insulin 100 Unit/1 ml 10 ml] 35 unit SUBCUT DAILY 30 Days #3 pe 05/27/17 Insulin Lispro [Humalog Insulin (Lispro) 100 unit/mL] 0 - 12 unit SUBCUT ACHSP PRN 30 Days #3 unit 05/27/17 Lansoprazole [Prevacid 30 mg Odt Tablet] 30 mg PO BID@0600,1700 30 Days #60 tab.rap. 05/27/17 Lipase/Protease/Amylase [Pancreaze-10 Capsule.] 1 cap PO BIDACBS 30 Days #60 capsule. 05/27/17 Pregabalin [Lyrica 75 mg Capsule] 75 mg PO BID 30 Days #60 capsule 05/27/17 Allergies/Adverse Reactions: ondansetron [From Zofran (as hydrochloride)] Allergy (Verified 05/06/17 12:35) Review of Systems All systems: as per PMH Physical Exam Vital Signs: Temp Pulse Resp BP Pulse Ox 36.4 C 82 16 102/59 L 100 07/04/17 23:51 07/05/17 02:00 07/04/17 23:51 07/04/17 23:51 07/04/17 23:51 Physical Exam: The patient is a thin middle-aged black male lying in hospital bed in minor distress. He is alert oriented and appropriate. General appearance: PRESENT: no acute distress Head exam: PRESENT: normocephalic Respiratory exam: PRESENT: unlabored Cardiovascular exam: PRESENT: RRR Pulses: PRESENT: normal radial pulses GI/Abdominal exam: PRESENT: soft Rectal exam: PRESENT: deferred Extremities exam: PRESENT: other - Examination of the left long finger reveals a large ulcer over the medial phalanx and the DIP joint. It is covered with purulent drainage. The depth is not explored. Range of motion of the fingers limited by pain. There is brisk capillary refill distally. Results Laboratory Results: 07/05/17 04:34 07/05/17 04:34 WBC 8.0 RBC 3.74 L Hgb 9.3 L Hct 29.2 L MCV 78 L MCH 25.0 L MCHC 32.0 RDW 16.8 H Plt Count 390 Seg Neutrophils % 68.1 Lymphocytes % 17.4 Monocytes % 9.5 Eosinophils % 3.5 Basophils % 1.5 Absolute Neutrophils 5.4 Absolute Lymphocytes 1.4 Absolute Monocytes 0.8 Absolute Eosinophils 0.3 Absolute Basophils 0.1 Impressions: Finger X-Ray 07/04/17 18:33 IMPRESSION: FINDINGS INVOLVING THE DIP JOINT. DESTRUCTIVE CHANGES INVOLVING THE DISTAL END OF THE MIDDLE PHALANX CONCERNING FOR OSTEOMYELITIS. Status: Imported from PACS Assessment & Plan - Diagnosis (1) Osteomyelitis of finger of left hand Is this a current diagnosis for this admission?: Yes Plan: 37-year-old black male with uncontrolled diabetes and now a left long finger osteomyelitis secondary to superficial abrasion. I think the patient will be best served with antibiotics and blood glucose control in the near future. By decreasing the swelling in the long finger it may be possible to save the proximal phalanx. Tentative plan for an amputation/disarticulation either at the PIP level or the MCP level sometime during this week. - Time Time Spent: 50 to 70 Minutes Anticipated discharge: Home with Homehealth Within: Other
--- NOTE | 2017-07-05 06:25 | PDOC H&P ---
History of Present Illness Admission Date/PCP: 07/04/17 22:24 Patient complains of: Left middle finger swelling and pain History of Present Illness: CHESTER MCKEON is a 37 year old male with history of type 1 diabetes, noncompliance, polysubstance abuse, tobacco and recurrent hospitalizations for diabetic ketoacidosis. He presents with pain and swelling to his left middle finger though denies fever, no metabolic acidosis. Despite not checking blood sugar greater than 4 days. In the emergency room he started on empiric antibiotics refer the hospitalist for admission. Past Medical History Cardiac Medical History: Reports: Hyperlipidema - On no medication for same., Hypertension - Taken off medication for same. Denies: Atrial Fibrillation, Congestive Heart Failure, Coronary Artery Disease, Myocardial Infarction, Pulmonary Embolism Pulmonary Medical History: Denies: Asthma, Chronic Obstructive Pulmonary Disease (COPD), Sleep Apnea Neurological Medical History: Denies: Seizures Endocrine Medical History: Reports: Diabetes Mellitus Type 1 Denies: Diabetes Mellitus Type 2, Hyperthyroidism, Hypothyroidism GI Medical History: Reports: Gastroesophageal Reflux Disease Denies: Cirrhosis, Hepatitis Musculoskeltal Medical History: Denies: Arthritis Psychiatric Medical History: Reports: Depression, Substance Abuse, Tobacco Dependency Hematology: Reports: Anemia - Chronic illnesses Past Surgical History Past Surgical History: Reports: Orthopedic Surgery - back Denies: Appendectomy, Cholecystectomy, Tonsillectomy Social History Information Source: Patient, [facility] Records Lives with: Family Smoking Status: Former Smoker Frequency of Alcohol Use: None Hx Recreational Drug Use: Yes Drugs: Marijuana Hx Prescription Drug Abuse: Yes - Advance Directive Resuscitation Status: Full Code Family History Family History: DM, Hyperlipidemia, Hypertension Parental Family History Reviewed: Yes Children Family History Reviewed: Yes Sibling(s) Family History Reviewed.: Yes Medication/Allergy Home Medications: Gabapentin 300 mg PO TID 30 Days #90 capsule 05/27/17 Insulin Glargine,Hum.rec.anlog [Lantus Insulin 100 Unit/1 ml 10 ml] 20 unit SUBCUT QHS 30 Days #3 pe 05/27/17 Insulin Glargine,Hum.rec.anlog [Lantus Insulin 100 Unit/1 ml 10 ml] 35 unit SUBCUT DAILY 30 Days #3 pe 05/27/17 Insulin Lispro [Humalog Insulin (Lispro) 100 unit/mL] 0 - 12 unit SUBCUT ACHSP PRN 30 Days #3 unit 05/27/17 Lansoprazole [Prevacid 30 mg Odt Tablet] 30 mg PO BID@0600,1700 30 Days #60 tab.rap. 05/27/17 Lipase/Protease/Amylase [Pancreaze-10 Capsule.] 1 cap PO BIDACBS 30 Days #60 capsule. 05/27/17 Pregabalin [Lyrica 75 mg Capsule] 75 mg PO BID 30 Days #60 capsule 05/27/17 Allergies/Adverse Reactions: ondansetron [From Zofran (as hydrochloride)] Allergy (Verified 05/06/17 12:35) Review of Systems Constitutional: ABSENT: chills, fever(s), headache(s), weight gain, weight loss Eyes: ABSENT: visual disturbances Ears: ABSENT: hearing changes Cardiovascular: ABSENT: chest pain, dyspnea on exertion, edema, orthropnea, palpitations Respiratory: ABSENT: cough, hemoptysis Gastrointestinal: ABSENT: abdominal pain, constipation, diarrhea, hematemesis, hematochezia, nausea, vomiting Genitourinary: ABSENT: dysuria, hematuria Musculoskeletal: ABSENT: joint swelling Integumentary: ABSENT: rash, wounds Neurological: ABSENT: abnormal gait, abnormal speech, confusion, dizziness, focal weakness, syncope Psychiatric: ABSENT: anxiety, depression, homidical ideation, suicidal ideation Endocrine: ABSENT: cold intolerance, heat intolerance, polydipsia, polyuria Hematologic/Lymphatic: ABSENT: easy bleeding, easy bruising Physical Exam Vital Signs: Temp Pulse Resp BP Pulse Ox 97.5 F 82 16 102/59 L 100 07/04/17 23:51 07/05/17 02:00 07/04/17 23:51 07/04/17 23:51 07/04/17 23:51 General appearance: PRESENT: cooperative, disheveled, well-developed, well- nourished Head exam: PRESENT: atraumatic, normocephalic Eye exam: PRESENT: conjunctiva pink, EOMI, PERRLA. ABSENT: scleral icterus Ear exam: PRESENT: normal external ear exam Mouth exam: PRESENT: moist, tongue midline Neck exam: ABSENT: carotid bruit, JVD, lymphadenopathy, thyromegaly Respiratory exam: PRESENT: clear to auscultation alfonso. ABSENT: rales, rhonchi, wheezes Cardiovascular exam: PRESENT: RRR. ABSENT: diastolic murmur, rubs, systolic murmur Pulses: PRESENT: normal dorsalis pedis pul Vascular exam: PRESENT: normal capillary refill GI/Abdominal exam: PRESENT: normal bowel sounds, soft. ABSENT: distended, guarding, mass, organolmegaly, rebound, tenderness Rectal exam: PRESENT: deferred Extremities exam: PRESENT: full ROM, other - Pain and swelling left middle finger. ABSENT: calf tenderness, clubbing, pedal edema Neurological exam: PRESENT: alert, awake, oriented to person, oriented to place , oriented to time, oriented to situation, CN II-XII grossly intact. ABSENT: motor sensory deficit Psychiatric exam: PRESENT: appropriate affect, normal mood. ABSENT: homicidal ideation, suicidal ideation Skin exam: PRESENT: dry, intact, warm. ABSENT: cyanosis, rash Results Laboratory Results: 07/05/17 04:34 07/05/17 04:34 WBC 8.0 RBC 3.74 L Hgb 9.3 L Hct 29.2 L MCV 78 L MCH 25.0 L MCHC 32.0 RDW 16.8 H Plt Count 390 Seg Neutrophils % 68.1 Lymphocytes % 17.4 Monocytes % 9.5 Eosinophils % 3.5 Basophils % 1.5 Absolute Neutrophils 5.4 Absolute Lymphocytes 1.4 Absolute Monocytes 0.8 Absolute Eosinophils 0.3 Absolute Basophils 0.1 Impressions: Finger X-Ray 07/04/17 18:33 IMPRESSION: FINDINGS INVOLVING THE DIP JOINT. DESTRUCTIVE CHANGES INVOLVING THE DISTAL END OF THE MIDDLE PHALANX CONCERNING FOR OSTEOMYELITIS. Assessment & Plan - Time Time Spent: 30 to 50 Minutes - Inpatient Certification Medical Necessity: Need Close Monitoring Due to Risk of Patient Decompensation
[2017-07-05] MEDS ORDERED: INSULIN LISPRO 100 UNIT/ML 3 ML VIAL SUBCUT ONE (09:00)
[2017-07-05] MEDS ORDERED: INSULIN GLARGINE,HUM.REC.ANLOG 1,000 UNIT/10 ML UNIT SUBCUT ONE (09:00)
[2017-07-05] MEDS: PREGABALIN 75 MG CAPSULE PO SCH ×2 (10:00→18:19)
[2017-07-05] MEDS: GABAPENTIN 300 MG CAPSULE PO SCH ×3 (10:00→18:19)
[2017-07-05] MEDS: LIPASE/PROTEASE/AMYLASE 1 CAP CAPSULE.DR PO SCH ×2 (10:00→15:22)
[2017-07-05] MEDS ORDERED: INSULIN GLARGINE,HUM.REC.ANLOG 1,000 UNIT/10 ML UNIT SUBCUT SCH ×2 (10:00→22:00)
[2017-07-05] MEDS: PIPERACILLIN SODIUM/TAZOBACTAM 3.375 GM in NORMAL SALINE 100 ML IV SCH ×3 (11:11→23:46)
[2017-07-05] MEDS: INSULIN LISPRO 100 UNIT/ML 3 ML VIAL SUBCUT PRN ×3 (11:56→23:47)
--- NOTE | 2017-07-05 14:08 | PDOC PROGRESS REPORT ---
Subjective Progress Note for:: 07/05/17 Subjective:: 37-year-old male with history of diabetes and noncompliance, admitted overnight for concern for osteomyelitis of the left middle finger. Seen by Dr. Long of orthopedics, who recommended antibiotics management for now. Patient doing okay, denies fever or chills. No nausea vomiting, no chest pain or shortness of breath or palpitations. States Percocet generally helps better with pain for him and would like morphine changed to this. Reason For Visit: NONCOMPLIANCE Physical Exam Vital Signs: Temp Pulse Resp BP Pulse Ox 99.1 F 85 15 94/62 L 100 07/05/17 12:00 07/05/17 12:00 07/05/17 12:00 07/05/17 12:00 07/05/17 12:00 Intake & Output 07/04/17 07/05/17 07/06/17 06:59 06:59 06:59 Intake Total 900 Balance 900 Weight 62.5 kg GEN: NAD, well-developed, well-nourished CV: RRR, NL S1S2 LUNGS: CTA bilaterally ABDOMEN Soft, NT, +BS EXTERMITIES: No e/c/c -Left middle finger with large ulcer over the medial phalanx and the DIP joint. NEURO: Alert, oriented 3, nonfocal Results Laboratory Results: 07/05/17 04:34 07/05/17 04:34 WBC 8.0 RBC 3.74 L Hgb 9.3 L Hct 29.2 L MCV 78 L MCH 25.0 L MCHC 32.0 RDW 16.8 H Plt Count 390 Seg Neutrophils % 68.1 Lymphocytes % 17.4 Monocytes % 9.5 Eosinophils % 3.5 Basophils % 1.5 Absolute Neutrophils 5.4 Absolute Lymphocytes 1.4 Absolute Monocytes 0.8 Absolute Eosinophils 0.3 Absolute Basophils 0.1 Impressions: Finger X-Ray 07/04/17 18:33 IMPRESSION: FINDINGS INVOLVING THE DIP JOINT. DESTRUCTIVE CHANGES INVOLVING THE DISTAL END OF THE MIDDLE PHALANX CONCERNING FOR OSTEOMYELITIS. Assessment & Plan - Plan Summary Plan Summary: (1) Osteomyelitis of finger of left hand Is this a current diagnosis for this admission?: Yes Plan: Follow blood and wound culture results. Continue empiric antibiotic coverage for community-acquired MRSA with double coverage, continue symptomatic management. Surgery follow-up. For pain, IV morphine discontinued. Started Percocet 5/325 mg 2 tabs every 6 as needed. Continue to monitor. (2) Cellulitis and abscess of finger, unspecified Is this a current diagnosis for this admission?: Yes Plan: As in osteo above. (2) Noncompliance Is this a current diagnosis for this admission?: Yes Plan: Continued education (3) Hyperglycemia due to type 1 diabetes mellitus Is this a current diagnosis for this admission?: Yes Plan: Education and continue long-acting and short-acting insulin.
[2017-07-05] MEDS ORDERED: NORMAL SALINE 1000 ML 1,000 ML IV PRN (14:09)
[2017-07-05] MEDS: OXYCODONE-ACETAMINOPHEN 5-325 MG TABLET PO PRN ×2 (16:20→23:48)
[2017-07-05] MEDS: VANCOMYCIN HCL 1,000 MG in DEXTROSE 5%-WATER 250 ML IV SCH (17:49)
[2017-07-05 23:02] LABS: ANION GAP 11 (5-19); BLOOD UREA NITROGEN 14 mg/dL (7-20); CALCIUM 9.2 mg/dL (8.4-10.2); CARBON DIOXIDE 23 mmol/L (22-30); CHLORIDE 99 mmol/L (98-107); POTASSIUM 4.3 mmol/L (3.6-5.0); SODIUM 132.8 mmol/L (137-145)
[2017-07-05 23:16] LABS: GLUCOSE 567 mg/dL (75-110)
[2017-07-05] MEDS: INSULIN GLARGINE,HUM.REC.ANLOG 300 UNIT/3 ML INSULN.PEN SUBCUT SCH (23:47)
[2017-07-06] MEDS: VANCOMYCIN HCL 1,000 MG in DEXTROSE 5%-WATER 250 ML IV SCH ×3 (04:07→16:58)
[2017-07-06] MEDS: OXYCODONE-ACETAMINOPHEN 5-325 MG TABLET PO PRN ×4 (04:09→20:29)
[2017-07-06 05:10] LABS: ABSOLUTE BASOPHILS # (AUTO) 0.1 10^3/uL (0.0-0.2); ABSOLUTE EOSINOPHILS # (AUTO) 0.2 10^3/uL (0.0-0.6); ABSOLUTE LYMPHOCYTES (AUTO) 1.4 10^3/uL (0.5-4.7); ABSOLUTE MONOCYTES (AUTO) 0.8 10^3/uL (0.1-1.4); ABSOLUTE NEUT (AUTO) 4.9 10^3/uL (1.7-8.2); EOSINOPHILS % (AUTO) 3.1 % (0-6); HEMATOCRIT 27.5 % (37.9-51.0); HEMOGLOBIN 8.6 g/dL (13.5-17.0); LYMPHOCYTES % (AUTO) 18.6 % (13-45); MEAN CORPUSCULAR HEMOGLOBIN 24.6 pg (27.0-33.4); MEAN CORPUSCULAR HGB CONC 31.1 g/dL (32.0-36.0); MEAN CORPUSCULAR VOLUME 79 fl (80-97); MONOCYTES % (AUTO) 10.3 % (3-13); PLATELET COUNT 353 10^3/uL (150-450); RED BLOOD COUNT 3.48 10^6/uL (4.35-5.55); RED CELL DISTRIBUTION WIDTH 17.2 % (11.5-14.0); TOTAL CELLS COUNTED % (AUTO) 100 %; WHITE BLOOD COUNT 7.3 10^3/uL (4.0-10.5)
[2017-07-06] MEDS: HEPARIN SOD (PORCINE) 5,000 UNIT/ML 1 ML SYRINGE SUBCUT SCH ×3 (05:21→22:08)
[2017-07-06 05:32] LABS: ANION GAP 12 (5-19); BLOOD UREA NITROGEN 18 mg/dL (7-20); CALCIUM 9.3 mg/dL (8.4-10.2); CARBON DIOXIDE 22 mmol/L (22-30); CHLORIDE 102 mmol/L (98-107); POTASSIUM 4.9 mmol/L (3.6-5.0)
[2017-07-06 05:49] LABS: GLUCOSE 586 mg/dL (75-110)
[2017-07-06] MEDS: INSULIN LISPRO 100 UNIT/ML 3 ML VIAL SUBCUT PRN ×5 (06:01→22:45)
--- NOTE | 2017-07-06 06:24 | PDOC PROGRESS REPORT ---
Subjective Progress Note for:: 07/06/17 Reason For Visit: NONCOMPLIANCE Left long finger osteomyelitis Physical Exam Vital Signs: Temp Pulse Resp BP Pulse Ox 36.8 C 90 18 113/79 97 07/06/17 04:00 07/06/17 04:00 07/06/17 04:00 07/06/17 04:00 07/06/17 04:00 Intake & Output 07/04/17 07/05/17 07/06/17 06:59 06:59 06:59 Intake Total 900 3440 Balance 900 3440 Weight 62.5 kg 62.9 kg General appearance: PRESENT: no acute distress Respiratory exam: PRESENT: unlabored Cardiovascular exam: PRESENT: RRR Pulses: PRESENT: normal radial pulses Vascular exam: PRESENT: normal capillary refill Extremities exam: PRESENT: other - Considerable improvement in the swelling and skin turgor of the left long finger. Skin proximal to the PIP joint is relatively normal at this point. Psychiatric exam: PRESENT: appropriate affect, normal mood. ABSENT: homicidal ideation, suicidal ideation Skin exam: PRESENT: dry, intact, warm. ABSENT: cyanosis, rash Results Laboratory Results: 07/06/17 04:54 07/06/17 04:54 07/05/17 07/06/17 07/06/17 22:40 04:54 04:54 WBC 7.3 RBC 3.48 L Hgb 8.6 L Hct 27.5 L MCV 79 L MCH 24.6 L MCHC 31.1 L RDW 17.2 H Plt Count 353 Seg Neutrophils % 67.0 Lymphocytes % 18.6 Monocytes % 10.3 Eosinophils % 3.1 Basophils % 1.0 Absolute Neutrophils 4.9 Absolute Lymphocytes 1.4 Absolute Monocytes 0.8 Absolute Eosinophils 0.2 Absolute Basophils 0.1 Sodium 132.8 L 136.0 L Potassium 4.3 4.9 Chloride 99 102 Carbon Dioxide 23 22 Anion Gap 11 12 BUN 14 18 Creatinine 1.00 1.02 Est GFR ( Amer) > 60 > 60 Est GFR (Non-Af Amer) > 60 > 60 Glucose 567 H* 586 H* Calcium 9.2 9.3 Impressions: Finger X-Ray 07/04/17 18:33 IMPRESSION: FINDINGS INVOLVING THE DIP JOINT. DESTRUCTIVE CHANGES INVOLVING THE DISTAL END OF THE MIDDLE PHALANX CONCERNING FOR OSTEOMYELITIS. Status: Imported from PACS Assessment & Plan - Diagnosis (1) Osteomyelitis of finger of left hand Is this a current diagnosis for this admission?: Yes Plan: Plan for a left long finger PIP joint disarticulation under local MAC anesthetic tomorrow - Time Time Spent with patient: 15-24 minutes Anticipated discharge: Other Within: Other
[2017-07-06] MEDS ORDERED: INSULIN REG, HUMAN 100 UNIT/ML 3 ML VIAL (PYX) IV ONE (06:30)
[2017-07-06] MEDS: PIPERACILLIN SODIUM/TAZOBACTAM 3.375 GM in NORMAL SALINE 100 ML IV SCH ×3 (07:40→18:36)
[2017-07-06] MEDS: LIPASE/PROTEASE/AMYLASE 1 CAP CAPSULE.DR PO SCH ×2 (07:58→16:12)
[2017-07-06] MEDS: PREGABALIN 75 MG CAPSULE PO SCH ×2 (09:37→17:30)
[2017-07-06] MEDS: INSULIN GLARGINE,HUM.REC.ANLOG 300 UNIT/3 ML INSULN.PEN SUBCUT SCH ×2 (09:37→22:45)
[2017-07-06] MEDS: GABAPENTIN 300 MG CAPSULE PO SCH ×3 (09:37→17:30)
[2017-07-06 14:13] LABS: APPEARANCE,URINE SLIGHTLY-CLOUDY; BILIRUBIN,URINE NEGATIVE (NEGATIVE); COLOR,URINE YELLOW; GLUCOSE, URINE >=500 mg/dL (NEGATIVE); KETONES,URINE NEGATIVE (NEGATIVE); LEUKOCYTE ESTERASE,URINE NEGATIVE (NEGATIVE); NITRITE,URINE NEGATIVE (NEGATIVE); PROTEIN,URINE 30 mg/dL (NEGATIVE); URINE SPECIFIC GRAVITY 1.028; UROBILINOGEN,URINE NEGATIVE mg/dL (<2.0)
[2017-07-06 17:50] LABS: VANCOMYCIN,TROUGH 16.2 ug/mL (5.0-20.0)
[2017-07-07] MEDS: PIPERACILLIN SODIUM/TAZOBACTAM 3.375 GM in NORMAL SALINE 100 ML IV SCH ×5 (01:40→23:18)
[2017-07-07] MEDS: VANCOMYCIN HCL 1,000 MG in DEXTROSE 5%-WATER 250 ML IV SCH ×3 (03:55→16:36)
[2017-07-07] MEDS: OXYCODONE-ACETAMINOPHEN 5-325 MG TABLET PO PRN ×4 (03:55→23:18)
[2017-07-07] MEDS: HEPARIN SOD (PORCINE) 5,000 UNIT/ML 1 ML SYRINGE SUBCUT SCH ×3 (03:56→22:15)
[2017-07-07 05:10] LABS: ABSOLUTE EOSINOPHILS # (AUTO) 0.4 10^3/uL (0.0-0.6); ABSOLUTE LYMPHOCYTES (AUTO) 1.6 10^3/uL (0.5-4.7); ABSOLUTE MONOCYTES (AUTO) 0.6 10^3/uL (0.1-1.4); ABSOLUTE NEUT (AUTO) 5.4 10^3/uL (1.7-8.2); BASOPHILS % (AUTO) 0.4 % (0-2); EOSINOPHILS % (AUTO) 4.5 % (0-6); HEMATOCRIT 28.2 % (37.9-51.0); HEMOGLOBIN 9.1 g/dL (13.5-17.0); LYMPHOCYTES % (AUTO) 20.2 % (13-45); MEAN CORPUSCULAR HEMOGLOBIN 25.2 pg (27.0-33.4); MEAN CORPUSCULAR HGB CONC 32.4 g/dL (32.0-36.0); MEAN CORPUSCULAR VOLUME 78 fl (80-97); MONOCYTES % (AUTO) 7.7 % (3-13); PLATELET COUNT 363 10^3/uL (150-450); RED BLOOD COUNT 3.62 10^6/uL (4.35-5.55); SEGMENTED NEUTROPHILS % (AUTO) 67.2 % (42-78); TOTAL CELLS COUNTED % (AUTO) 100 %; WHITE BLOOD COUNT 8.1 10^3/uL (4.0-10.5)
[2017-07-07 05:29] LABS: ANION GAP 13 (5-19); BLOOD UREA NITROGEN 17 mg/dL (7-20); CALCIUM 9.5 mg/dL (8.4-10.2); CARBON DIOXIDE 18 mmol/L (22-30); CHLORIDE 107 mmol/L (98-107); GLUCOSE 318 mg/dL (75-110); POTASSIUM 4.4 mmol/L (3.6-5.0); SODIUM 137.7 mmol/L (137-145)
[2017-07-07] MEDS: INSULIN LISPRO 100 UNIT/ML 3 ML VIAL SUBCUT PRN ×3 (07:34→22:15)
[2017-07-07] MEDS: LIPASE/PROTEASE/AMYLASE 1 CAP CAPSULE.DR PO SCH ×2 (07:34→15:41)
[2017-07-07] MEDS ORDERED: BUPIVACAINE HCL 0.25 % INJ/PF (2.5 MG/1 ML) 30 ML VIAL ONE (08:54)
[2017-07-07] MEDS ORDERED: LIDOCAINE 1% INJ-PF (10 MG/ML) 30 ML SDV ONE (08:56)
[2017-07-07] MEDS ORDERED: BUPIVACAINE HCL 0.5 % INJ/PF 30 ML SDV ONE (08:58)
[2017-07-07] MEDS ORDERED: FENTANYL CITRATE INJ/PF 100 MCG/2 ML AMPUL ONE ×2 (08:59→09:00)
[2017-07-07] MEDS ORDERED: KETAMINE HCL INJ 500 MG/10 ML VIAL ONE (08:59)
[2017-07-07] MEDS ORDERED: MIDAZOLAM 2 MG/2 ML INJ ONE (09:00)
[2017-07-07] MEDS ORDERED: PROPOFOL INJ 200 MG/20 ML VIAL IV ONE (09:00)
[2017-07-07] MEDS ORDERED: FENTANYL CITRATE INJ/PF 100 MCG/2 ML AMPUL IV PRN ×3 (09:29)
[2017-07-07] MEDS ORDERED: PROMETHAZINE HCL INJ 25 MG/1 ML VIAL IV PRN (09:29)
[2017-07-07] MEDS ORDERED: DIPHENHYDRAMINE HCL 50 MG/ML VIAL IV PRN (09:29)
--- NOTE | 2017-07-07 09:37 | Operative Report ---
Operative Report DATE OF SURGERY: 07/07/17 PREOPERATIVE DIAGNOSIS: Osteomyelitis left long finger OPERATION: Left long finger PIP disarticulation SURGEON: CHELLE PASCUAL ANESTHESIA: LMAC TISSUE REMOVED OR ALTERED: Cultures to microbiology. Distal finger to pathology ESTIMATED BLOOD LOSS: 25 PROCEDURE: With the patient supine on the operating table left upper extremities prepped and draped in sterile fashion. A finger block is placed with a combination of Marcaine and Xylocaine just distal to the MCP joint of the left long finger. Subsequent fishmouth incision is made over the left long finger at the level of the PIP joint. Sharp dissection was used to carry incision down to the capsule and then the joint is subsequently disarticulated. Hemostasis obtained with bipolar cautery. Wound is irrigated. Is closed using interrupted 3-0 nylon. Sterile dressings applied and the patient's return to the PACU in satisfactory condition.
[2017-07-07] MEDS ORDERED: RINGERS SOLUTION,LACTATED 1,000 ML IV PRN (09:47)
[2017-07-07] MEDS: PREGABALIN 75 MG CAPSULE PO SCH ×2 (10:53→17:14)
[2017-07-07] MEDS: GABAPENTIN 300 MG CAPSULE PO SCH ×3 (10:53→17:14)
[2017-07-07] MEDS: INSULIN GLARGINE,HUM.REC.ANLOG 300 UNIT/3 ML INSULN.PEN SUBCUT SCH ×2 (10:54→22:15)
[2017-07-07] MEDS: MORPHINE SULFATE 10 MG/ML INJ IV PRN ×3 (11:14→20:33)
--- NOTE | 2017-07-07 11:52 | PDOC PROGRESS REPORT ---
Subjective Progress Note for:: 07/07/17 Subjective:: Patient patient underwent amputation distal left third finger this morning Procedure was uneventful Patient has a great deal of pain on return from the OR IV morphine sulfate was ordered Blood sugars are somewhat better controlled Reason For Visit: FINGER OSTEO DIABETES Physical Exam Vital Signs: Temp Pulse Resp BP Pulse Ox 97.7 F 90 12 116/73 100 07/07/17 10:14 07/07/17 10:14 07/07/17 10:14 07/07/17 10:14 07/07/17 10:14 Intake & Output 07/06/17 07/07/17 07/08/17 00:59 00:59 00:59 Intake Total 4340 2990 1110 Output Total 125 Balance 4340 2990 985 Weight 62.5 kg 62.9 kg 59.1 kg General appearance: PRESENT: mild distress - Because of pain, well-developed, well-nourished Head exam: PRESENT: atraumatic, normocephalic Eye exam: PRESENT: conjunctiva pink, EOMI, PERRLA. ABSENT: scleral icterus Neck exam: ABSENT: carotid bruit, JVD, lymphadenopathy, thyromegaly Respiratory exam: PRESENT: clear to auscultation alfonso. ABSENT: rales, rhonchi, wheezes Cardiovascular exam: PRESENT: RRR. ABSENT: diastolic murmur, rubs, systolic murmur GI/Abdominal exam: PRESENT: normal bowel sounds, soft. ABSENT: distended, guarding, mass, organolmegaly, rebound, tenderness Extremities exam: PRESENT: other - Left hand is bandaged Neurological exam: PRESENT: alert, awake, oriented to person, oriented to place , oriented to time, oriented to situation, CN II-XII grossly intact. ABSENT: motor sensory deficit Results Laboratory Results: 07/07/17 04:29 07/07/17 04:29 07/06/17 07/07/17 07/07/17 13:57 04: 04:29 WBC 8.1 RBC 3.62 L Hgb 9.1 L Hct 28.2 L MCV 78 L MCH 25.2 L MCHC 32.4 RDW 17.0 H Plt Count 363 Seg Neutrophils % 67.2 Lymphocytes % 20.2 Monocytes % 7.7 Eosinophils % 4.5 Basophils % 0.4 Absolute Neutrophils 5.4 Absolute Lymphocytes 1.6 Absolute Monocytes 0.6 Absolute Eosinophils 0.4 Absolute Basophils 0.0 Sodium 137.7 Potassium 4.4 Chloride 107 Carbon Dioxide 18 L Anion Gap 13 BUN 17 Creatinine 0.81 Est GFR ( Amer) > 60 Est GFR (Non-Af Amer) > 60 Glucose 318 H Calcium 9.5 Urine Color YELLOW Urine Appearance SLIGHTLY-CLOUDY Urine pH 5.0 Ur Specific [place] 1.028 Urine Protein 30 H Urine Glucose (UA) >=500 H Urine Ketones NEGATIVE Urine Blood SMALL H Urine Nitrite NEGATIVE Ur Leukocyte Esterase NEGATIVE Urine WBC (Auto) 0 Urine RBC (Auto) 0 Impressions: Finger X-Ray 07/04/17 18:33 IMPRESSION: FINDINGS INVOLVING THE DIP JOINT. DESTRUCTIVE CHANGES INVOLVING THE DISTAL END OF THE MIDDLE PHALANX CONCERNING FOR OSTEOMYELITIS. Assessment & Plan - Diagnosis (1) Osteomyelitis of finger Is this a current diagnosis for this admission?: Yes (2) Cellulitis and abscess of finger, unspecified Is this a current diagnosis for this admission?: Yes (3) Hyperglycemia Is this a current diagnosis for this admission?: Yes (4) Status post amputation of finger of left hand Is this a current diagnosis for this admission?: Yes - Time Time Spent with patient: Continue present medications Will discuss length of antibiotic treatment with Dr. Long Time Spent with patient: 25-34 minutes
--- NOTE | 2017-07-07 11:56 | PDOC PROGRESS REPORT ---
Subjective Progress Note for:: 07/06/17 Subjective:: Patient is complaining of pain in left hand otherwise no fever no chills no other complaints Reason For Visit: FINGER OSTEO DIABETES Physical Exam Vital Signs: Temp Pulse Resp BP Pulse Ox 97.7 F 90 12 116/73 100 07/07/17 10:14 07/07/17 10:14 07/07/17 10:14 07/07/17 10:14 07/07/17 10:14 Intake & Output 07/06/17 07/07/17 07/08/17 00:59 00:59 00:59 Intake Total 4340 2990 1110 Output Total 125 Balance 4340 2990 985 Weight 62.5 kg 62.9 kg 59.1 kg General appearance: PRESENT: no acute distress Head exam: PRESENT: atraumatic, normocephalic Eye exam: PRESENT: conjunctiva pink, EOMI, PERRLA. ABSENT: scleral icterus Respiratory exam: PRESENT: clear to auscultation alfonso. ABSENT: rales, rhonchi, wheezes Cardiovascular exam: PRESENT: RRR. ABSENT: diastolic murmur, rubs, systolic murmur Pulses: PRESENT: normal dorsalis pedis pul GI/Abdominal exam: PRESENT: normal bowel sounds, soft. ABSENT: distended, guarding, mass, organolmegaly, rebound, tenderness Extremities exam: PRESENT: other - Left hand is bandaged Neurological exam: PRESENT: alert, awake, oriented to person, oriented to place , oriented to time, oriented to situation, CN II-XII grossly intact. ABSENT: motor sensory deficit Results Laboratory Results: 07/07/17 04:29 07/07/17 04:29 07/06/17 07/07/17 07/07/17 13:57 04:29 04:29 WBC 8.1 RBC 3.62 L Hgb 9.1 L Hct 28.2 L MCV 78 L MCH 25.2 L MCHC 32.4 RDW 17.0 H Plt Count 363 Seg Neutrophils % 67.2 Lymphocytes % 20.2 Monocytes % 7.7 Eosinophils % 4.5 Basophils % 0.4 Absolute Neutrophils 5.4 Absolute Lymphocytes 1.6 Absolute Monocytes 0.6 Absolute Eosinophils 0.4 Absolute Basophils 0.0 Sodium 137.7 Potassium 4.4 Chloride 107 Carbon Dioxide 18 L Anion Gap 13 BUN 17 Creatinine 0.81 Est GFR ( Amer) > 60 Est GFR (Non-Af Amer) > 60 Glucose 318 H Calcium 9.5 Urine Color YELLOW Urine Appearance SLIGHTLY-CLOUDY Urine pH 5.0 Ur Specific [place] 1.028 Urine Protein 30 H Urine Glucose (UA) >=500 H Urine Ketones NEGATIVE Urine Blood SMALL H Urine Nitrite NEGATIVE Ur Leukocyte Esterase NEGATIVE Urine WBC (Auto) 0 Urine RBC (Auto) 0 Impressions: Finger X-Ray 07/04/17 18:33 IMPRESSION: FINDINGS INVOLVING THE DIP JOINT. DESTRUCTIVE CHANGES INVOLVING THE DISTAL END OF THE MIDDLE PHALANX CONCERNING FOR OSTEOMYELITIS. Assessment & Plan - Diagnosis (1) Osteomyelitis of finger Is this a current diagnosis for this admission?: Yes (2) Cellulitis and abscess of finger, unspecified Is this a current diagnosis for this admission?: Yes (3) Hyperglycemia Is this a current diagnosis for this admission?: Yes (4) Status post amputation of finger of left hand Is this a current diagnosis for this admission?: Yes - Time Time Spent with patient: Continue present management amputation left middle finger scheduled in a.m. Time Spent with patient: 25-34 minutes
[2017-07-07 22:53] LABS: ANION GAP 12 (5-19); BLOOD UREA NITROGEN 15 mg/dL (7-20); CALCIUM 9.6 mg/dL (8.4-10.2); CARBON DIOXIDE 23 mmol/L (22-30); CHLORIDE 105 mmol/L (98-107); GLUCOSE 198 mg/dL (75-110); POTASSIUM 4.1 mmol/L (3.6-5.0); SODIUM 140.3 mmol/L (137-145)
[2017-07-08] MEDS: MORPHINE SULFATE 10 MG/ML INJ IV PRN ×4 (02:58→21:36)
[2017-07-08] MEDS: VANCOMYCIN HCL 1,000 MG in DEXTROSE 5%-WATER 250 ML IV SCH ×3 (02:58→16:20)
[2017-07-08] MEDS: HEPARIN SOD (PORCINE) 5,000 UNIT/ML 1 ML SYRINGE SUBCUT SCH ×3 (05:14→21:36)
[2017-07-08] MEDS: PIPERACILLIN SODIUM/TAZOBACTAM 3.375 GM in NORMAL SALINE 100 ML IV SCH ×3 (05:14→17:50)
[2017-07-08] MEDS: INSULIN LISPRO 100 UNIT/ML 3 ML VIAL SUBCUT PRN ×4 (06:00→21:37)
[2017-07-08] MEDS: OXYCODONE-ACETAMINOPHEN 5-325 MG TABLET PO PRN ×3 (06:00→18:53)
[2017-07-08 06:19] LABS: HEMATOCRIT 25.1 % (37.9-51.0); MEAN CORPUSCULAR HEMOGLOBIN 24.6 pg (27.0-33.4); MEAN CORPUSCULAR HGB CONC 31.5 g/dL (32.0-36.0); MEAN CORPUSCULAR VOLUME 78 fl (80-97); PLATELET COUNT 373 10^3/uL (150-450); RED BLOOD COUNT 3.21 10^6/uL (4.35-5.55); RED CELL DISTRIBUTION WIDTH 17.3 % (11.5-14.0); WHITE BLOOD COUNT 7.7 10^3/uL (4.0-10.5)
[2017-07-08 06:34] LABS: HEMOGLOBIN 7.9 g/dL (13.5-17.0)
[2017-07-08 06:35] LABS: ANION GAP 11 (5-19); BLOOD UREA NITROGEN 16 mg/dL (7-20); CALCIUM 9.2 mg/dL (8.4-10.2); CARBON DIOXIDE 23 mmol/L (22-30); CHLORIDE 105 mmol/L (98-107); POTASSIUM 4.6 mmol/L (3.6-5.0)
[2017-07-08 06:45] LABS: GLUCOSE 422 mg/dL (75-110)
[2017-07-08] MEDS: LIPASE/PROTEASE/AMYLASE 1 CAP CAPSULE.DR PO SCH ×2 (08:21→15:54)
[2017-07-08] MEDS ORDERED: NORMAL SALINE 1000 ML 1,000 ML IV ONE (09:00)
[2017-07-08] MEDS: GABAPENTIN 300 MG CAPSULE PO SCH ×3 (09:31→17:49)
[2017-07-08] MEDS: PREGABALIN 75 MG CAPSULE PO SCH ×2 (09:31→17:50)
[2017-07-08] MEDS: INSULIN GLARGINE,HUM.REC.ANLOG 300 UNIT/3 ML INSULN.PEN SUBCUT SCH ×2 (09:31→21:37)
--- NOTE | 2017-07-08 11:44 | PROGRESS NOTE E ---
Progress Note NAME: CHESTER MCKEON : 1980 AGE: 37Y DATE: 07/08/2017 ROOM: 409 SUBJECTIVE: The patient is sitting on the side of the bed. The patient states that he feels pretty good today, still has some pain in his hand. The patient states that he normally takes 5 units before each meal at home. The patient denies any nausea, vomiting, diarrhea. No shortness of breath, dizziness, chest pain. No fever or chills. The patient has been afebrile. Blood pressure has been in good range and the patient does not voice any other concerns at this time. REVIEW OF SYSTEMS: The rest of the review of systems is negative. MEDICATIONS: Medications are reviewed. OBJECTIVE: GENERAL: The patient is a 37-year-old male who is awake, alert and oriented to person, place, time, and situation. He is verbal and conversational. He does not appear to be in any acute distress. VITAL SIGNS: As follows: Temperature 99.0, pulse 96, respirations 16, blood pressure 121/84, oxygen saturation 98% on room air. SKIN: Warm and dry. No rash. He is not diaphoretic. HEENT: Pupils equal, round and reactive to light and accommodation. Conjunctivae pink. There is no evidence of JVP. CARDIOVASCULAR: Heart is regular. There is no murmur or rub. CHEST: Clear, symmetrical, unlabored. ABDOMEN: Soft, nontender, nondistended. BACK: No CVA tenderness or sacral edema. EXTREMITIES: No clubbing, cyanosis, or edema. The hand is wrapped in an appropriate surgical dressing. PSYCHIATRIC: Appropriate affect, pleasant mood. DIAGNOSTICS: Lab values are as follows: Hematology obtained on 07/08/2017: WBC 7.7, hemoglobin 7.9, hematocrit 25.1, platelet count 373,000. Chemistries obtained on 07/08/2017: Sodium 139, potassium 4.6, chloride 105, carbon dioxide 23, BUN 16, creatinine 1.17, glucose 422, calcium 92. ASSESSMENT AND PLAN: 1. OSTEOMYELITIS OF THE FINGER. The patient is status post amputation. We will continue antibiotic coverage for today and the case will be discussed with Infectious Disease. Further antibiotic management as per Infectious Disease. 2. CELLULITIS AND ABSCESS OF THE FINGER. Again the patient is status amputation. 3. UNCONTROLLED DIABETES MELLITUS TYPE 1. We will bolus the patient a L of saline. We will increase the patient's basal Lantus and also add 5 units of fast acting with each meal as well as sliding scale coverage and follow. 4. ACUTE BLOOD LOSS ANEMIA. The patient probably has an underlying anemia of chronic disease due to his diabetes as well as has had some losses associated with surgery. Hemoglobin has trended down to 7.9. However, the patient was admitted with 8.8. We will repeat CBC in the a.m. and transfuse if this goes down anymore. DISPOSITION: The patient is a FULL CODE. Pending the patient's symptomatology and diagnostic findings, we will reevaluate in the a.m. The patient can be down graded to a medical bed. Time spent on this follow up including assessment and plan, physical examination, patient education, review of records is 25 minutes. DICTATING PHYSICIAN: YESICA SALAZAR NP [id number] PHY#: [id number] ID: [id number] JOB#: [id number] ACCT: [id number] cc:YESICA SALAZAR NP >
[2017-07-08] MEDS: INSULIN LISPRO 100 UNIT/ML 3 ML VIAL SUBCUT SCH ×2 (11:53→18:23)
[2017-07-09] MEDS: PIPERACILLIN SODIUM/TAZOBACTAM 3.375 GM in NORMAL SALINE 100 ML IV SCH ×3 (00:16→11:35)
[2017-07-09] MEDS: MORPHINE SULFATE 10 MG/ML INJ IV PRN ×3 (00:53→20:57)
[2017-07-09] MEDS: VANCOMYCIN HCL 1,000 MG in DEXTROSE 5%-WATER 250 ML IV SCH ×2 (04:19→12:15)
[2017-07-09] MEDS: HEPARIN SOD (PORCINE) 5,000 UNIT/ML 1 ML SYRINGE SUBCUT SCH ×3 (04:58→21:46)
[2017-07-09] MEDS: OXYCODONE-ACETAMINOPHEN 5-325 MG TABLET PO PRN (05:18)
[2017-07-09 05:41] LABS: HEMATOCRIT 25.3 % (37.9-51.0); HEMOGLOBIN 8.1 g/dL (13.5-17.0); MEAN CORPUSCULAR HGB CONC 32.2 g/dL (32.0-36.0); MEAN CORPUSCULAR VOLUME 78 fl (80-97); PLATELET COUNT 428 10^3/uL (150-450); RED BLOOD COUNT 3.25 10^6/uL (4.35-5.55); RED CELL DISTRIBUTION WIDTH 16.9 % (11.5-14.0); WHITE BLOOD COUNT 8.1 10^3/uL (4.0-10.5)
[2017-07-09 05:51] LABS: ANION GAP 13 (5-19); BLOOD UREA NITROGEN 17 mg/dL (7-20); CALCIUM 9.8 mg/dL (8.4-10.2); CARBON DIOXIDE 22 mmol/L (22-30); CHLORIDE 109 mmol/L (98-107); GLUCOSE 235 mg/dL (75-110); POTASSIUM 4.7 mmol/L (3.6-5.0); SODIUM 143.6 mmol/L (137-145)
--- NOTE | 2017-07-09 06:18 | PDOC PROGRESS REPORT ---
Subjective Progress Note for:: 07/09/17 Reason For Visit: FINGER OSTEO DIABETES 37-year-old black male postop day 2 from left long finger PIP disarticulation Physical Exam Vital Signs: Temp Pulse Resp BP Pulse Ox 36.9 C 98 17 125/89 H 98 07/08/17 20:43 07/08/17 20:43 07/08/17 20:43 07/08/17 20:43 07/08/17 20:43 Intake & Output 07/07/17 07/08/17 07/09/17 06:59 06:59 06:59 Intake Total 3250 5350 1750 Output Total 125 Balance 3250 5225 1750 Weight 59.1 kg 59.8 kg General appearance: PRESENT: no acute distress Head exam: PRESENT: normocephalic Respiratory exam: PRESENT: unlabored Cardiovascular exam: PRESENT: RRR Pulses: PRESENT: normal radial pulses GI/Abdominal exam: PRESENT: soft Rectal exam: PRESENT: deferred Extremities exam: PRESENT: other - Left upper extremity covered in a soft dressing. Musculoskeletal exam: PRESENT: ambulatory Neurological exam: PRESENT: alert, awake, oriented to person, oriented to place , oriented to time, oriented to situation. ABSENT: motor sensory deficit Psychiatric exam: PRESENT: appropriate affect, normal mood. ABSENT: homicidal ideation, suicidal ideation Skin exam: PRESENT: dry, intact, warm. ABSENT: cyanosis, rash Results Laboratory Results: 07/09/17 05:27 07/09/17 05:27 07/08/17 07/08/17 07/09/17 05:09 05:09 05:27 WBC 7.7 8.1 RBC 3.21 L 3.25 L Hgb 7.9 L 8.1 L Hct 25.1 L 25.3 L MCV 78 L 78 L MCH 24.6 L 25.0 L MCHC 31.5 L 32.2 RDW 17.3 H 16.9 H Plt Count 373 428 Sodium 139.0 Potassium 4.6 Chloride 105 Carbon Dioxide 23 Anion Gap 11 BUN 16 Creatinine 1.17 Est GFR ( Amer) > 60 Est GFR (Non-Af Amer) > 60 Glucose 422 H* Calcium 9.2 07/09/17 05:27 WBC RBC Hgb Hct MCV MCH MCHC RDW Plt Count Sodium 143.6 Potassium 4.7 Chloride 109 H Carbon Dioxide 22 Anion Gap 13 BUN 17 Creatinine 1.11 Est GFR ( Amer) > 60 Est GFR (Non-Af Amer) > 60 Glucose 235 H Calcium 9.8 Impressions: Finger X-Ray 07/04/17 18:33 IMPRESSION: FINDINGS INVOLVING THE DIP JOINT. DESTRUCTIVE CHANGES INVOLVING THE DISTAL END OF THE MIDDLE PHALANX CONCERNING FOR OSTEOMYELITIS. Status: Imported from PACS Assessment & Plan - Diagnosis (1) Osteomyelitis of finger of left hand Is this a current diagnosis for this admission?: Yes Plan: Patient having minor discomfort. Otherwise seems to be doing well. Cultures pending. Anticipate dressing change tomorrow. - Time Time Spent with patient: 15-24 minutes Anticipated discharge: Other Within: Other
[2017-07-09] MEDS: INSULIN LISPRO 100 UNIT/ML 3 ML VIAL SUBCUT SCH ×3 (08:49→16:30)
[2017-07-09] MEDS: INSULIN LISPRO 100 UNIT/ML 3 ML VIAL SUBCUT PRN ×4 (08:49→21:46)
[2017-07-09] MEDS: INSULIN GLARGINE,HUM.REC.ANLOG 300 UNIT/3 ML INSULN.PEN SUBCUT SCH ×2 (09:15→21:46)
[2017-07-09] MEDS: PREGABALIN 75 MG CAPSULE PO SCH ×2 (09:15→18:17)
[2017-07-09] MEDS: GABAPENTIN 300 MG CAPSULE PO SCH ×3 (09:15→18:17)
[2017-07-09] MEDS: LIPASE/PROTEASE/AMYLASE 1 CAP CAPSULE.DR PO SCH ×2 (09:28→15:27)
[2017-07-09] MEDS: OXYCODONE HCL IR 5 MG TABLET PO PRN ×3 (11:40→18:30)
--- NOTE | 2017-07-09 14:27 | Progress Note ---
Provider Note Provider Note: ID Consult Note- I was asked to review the patient's chart by the Pharmacy Service. The patient underwent an amputation of the distal phalynx of the left middle finger on July 07 for treatment of suspected osteomyelitis. Cultures of the finger are negative after two days. Recommendations: If the infected bone has been completely excised, there is no need to continue antibiotics in this patient even if the cultures of the removed finger are positive. Recommend discontinuing antibiotics unless there is evidence of residual infection. Please contact me if there are questions. Gurdeep Sánchez MD Pager: [phone]
--- NOTE | 2017-07-09 18:12 | PDOC PROGRESS REPORT ---
Subjective Progress Note for:: 07/09/17 Subjective:: Pain is still fairly severe. No fevers, no bleeding, eating fine, sleeping well , no abdominal pain. Reason For Visit: FINGER OSTEO DIABETES Physical Exam Vital Signs: Temp Pulse Resp BP Pulse Ox 98.4 F 98 17 125/89 H 98 07/08/17 20:43 07/08/17 20:43 07/08/17 20:43 07/08/17 20:43 07/08/17 20:43 Intake & Output 07/08/17 07/09/17 07/10/17 06:59 06:59 06:59 Intake Total 5350 2560 650 Output Total 125 Balance 5225 2560 650 Weight 59.8 kg 59.8 kg General appearance: PRESENT: no acute distress, cooperative Head exam: PRESENT: atraumatic, normocephalic Eye exam: PRESENT: EOMI Mouth exam: PRESENT: moist, tongue midline Respiratory exam: PRESENT: clear to auscultation alfonso, unlabored. ABSENT: rales , rhonchi, wheezes Cardiovascular exam: PRESENT: RRR. ABSENT: systolic murmur Pulses: PRESENT: normal radial pulses GI/Abdominal exam: PRESENT: normal bowel sounds, soft. ABSENT: distended, guarding, tenderness Extremities exam: PRESENT: other - left hand in post op dressing CDI. ABSENT: pedal edema Musculoskeletal exam: PRESENT: ambulatory Neurological exam: PRESENT: alert, awake, oriented to person, oriented to place , oriented to situation, CN II-XII grossly intact Psychiatric exam: PRESENT: appropriate affect. ABSENT: anxious Skin exam: PRESENT: dry, intact, warm Results Laboratory Results: 07/09/17 05:27 07/09/17 05:27 07/09/17 07/09/17 05:27 05:27 WBC 8.1 RBC 3.25 L Hgb 8.1 L Hct 25.3 L MCV 78 L MCH 25.0 L MCHC 32.2 RDW 16.9 H Plt Count 428 Sodium 143.6 Potassium 4.7 Chloride 109 H Carbon Dioxide 22 Anion Gap 13 BUN 17 Creatinine 1.11 Est GFR ( Amer) > 60 Est GFR (Non-Af Amer) > 60 Glucose 235 H Calcium 9.8 Impressions: Finger X-Ray 07/04/17 18:33 IMPRESSION: FINDINGS INVOLVING THE DIP JOINT. DESTRUCTIVE CHANGES INVOLVING THE DISTAL END OF THE MIDDLE PHALANX CONCERNING FOR OSTEOMYELITIS. Assessment & Plan - Diagnosis (1) Osteomyelitis of finger of left hand Is this a current diagnosis for this admission?: Yes Plan: left long finger PIP disarticulation due to osteomyelitis after a burn at work, have DCed ABX as cultures neg x 2 days and no evidence of persistent infection. Appreciate ID input. Ortho following. Dressing change tomorrow. (2) Diabetes type 1, uncontrolled Is this a current diagnosis for this admission?: Yes Plan: pt has had in the past mutiple DM complications, now he is hyperglycemic with infection and this is imrpoving with increase in long and short acting insulin dosing, will monitor and adjust insulin as indicated, encouraging diabetic diet (3) Acute pain Is this a current diagnosis for this admission?: Yes Plan: will titrate IV morphine to off and increase po oxycodone as needed for acute post op pain control. Will plan to stop opioids soon, prior to DC. Monitoring vitals for safety. - Time Time Spent with patient: 25-34 minutes Medications reviewed and adjusted accordingly: Yes - Inpatient Certification Based on my medical assessment, after consideration of the patient's comorbidities, presenting symptoms, or acuity I expect that the services needed warrant INPATIENT care.: Yes I certify that my determination is in accordance with my understanding of Medicare's requirements for reasonable and necessary INPATIENT services [42 CFR 412.3e].: Yes Medical Necessity: Risk of Complication if Not Cared For in Hospital
[2017-07-10] MEDS: MORPHINE SULFATE 10 MG/ML INJ IV PRN ×2 (00:03→06:11)
[2017-07-10] MEDS: OXYCODONE HCL IR 5 MG TABLET PO PRN ×5 (03:04→19:48)
[2017-07-10] MEDS: HEPARIN SOD (PORCINE) 5,000 UNIT/ML 1 ML SYRINGE SUBCUT SCH ×3 (04:31→22:41)
--- NOTE | 2017-07-10 08:07 | PDOC PROGRESS REPORT ---
Subjective Progress Note for:: 07/10/17 Reason For Visit: FINGER OSTEO DIABETES 37-year-old black male status post left long finger PIP disarticulation for osteomyelitis Physical Exam Vital Signs: Temp Pulse Resp BP Pulse Ox 36.9 C 98 17 125/89 H 98 07/08/17 20:43 07/08/17 20:43 07/08/17 20:43 07/08/17 20:43 07/08/17 20:43 Intake & Output 07/09/17 07/10/17 07/11/17 06:59 06:59 06:59 Intake Total 2560 1565 Balance 2560 1565 Weight 59.8 kg 59.8 kg General appearance: PRESENT: no acute distress Extremities exam: PRESENT: other - Left hand dressing is removed. There is some bulbous swelling in the residual long finger but the wound edges are well approximated and there is no drainage. Results Laboratory Results: 07/09/17 05:27 07/09/17 05:27 Impressions: Finger X-Ray 07/04/17 18:33 IMPRESSION: FINDINGS INVOLVING THE DIP JOINT. DESTRUCTIVE CHANGES INVOLVING THE DISTAL END OF THE MIDDLE PHALANX CONCERNING FOR OSTEOMYELITIS. Assessment & Plan - Diagnosis (1) Osteomyelitis of finger of left hand Is this a current diagnosis for this admission?: Yes Plan: The patient's wound is clean and dry. His pain is under reasonable control. He can be discharged from an orthopedic standpoint. Follow-up with Dr. Long [facility] for surgery in 2 weeks for suture removal.
[2017-07-10] MEDS: LIPASE/PROTEASE/AMYLASE 1 CAP CAPSULE.DR PO SCH ×2 (08:33→15:41)
[2017-07-10] MEDS: INSULIN LISPRO 100 UNIT/ML 3 ML VIAL SUBCUT SCH ×3 (08:33→17:01)
[2017-07-10] MEDS: INSULIN LISPRO 100 UNIT/ML 3 ML VIAL SUBCUT PRN ×4 (08:33→22:41)
[2017-07-10] MEDS: GABAPENTIN 300 MG CAPSULE PO SCH ×3 (09:24→17:25)
[2017-07-10] MEDS: PREGABALIN 75 MG CAPSULE PO SCH ×2 (09:24→17:25)
[2017-07-10] MEDS: INSULIN GLARGINE,HUM.REC.ANLOG 300 UNIT/3 ML INSULN.PEN SUBCUT SCH ×2 (10:42→22:41)
--- NOTE | 2017-07-10 16:21 | PDOC PROGRESS REPORT ---
Subjective Progress Note for:: 07/10/17 Subjective:: Patient is feeling overall better. Pain is fairly well controlled. His appetite is good. We discussed adding a meal time short acting insulin dose to his sliding scale and he declines that stating that his sugars are getting better as his infection is improving. I will continue to recommend this as long as his CBGs are poorly controlled. He is not having any abdominal pain nausea or vomiting. Moving his bowels. Urinating without difficulty. No chest pain or difficulty breathing. No fevers. No bleeding. Reason For Visit: FINGER OSTEO DIABETES Physical Exam Vital Signs: Temp Pulse Resp BP Pulse Ox 98.9 F 90 16 114/77 99 07/10/17 07:37 07/10/17 07:37 07/10/17 07:37 07/10/17 07:37 07/10/17 07:37 Intake & Output 07/09/17 07/10/17 07/11/17 06:59 06:59 06:59 Intake Total 2560 1565 Balance 2560 1565 Weight 59.8 kg 59.8 kg General appearance: PRESENT: no acute distress, cooperative, thin Head exam: PRESENT: atraumatic, normocephalic Eye exam: ABSENT: conjunctival injection, scleral icterus Mouth exam: PRESENT: moist, tongue midline Respiratory exam: PRESENT: clear to auscultation alfonso, unlabored. ABSENT: rales , rhonchi, wheezes Cardiovascular exam: PRESENT: RRR. ABSENT: systolic murmur Pulses: PRESENT: normal radial pulses GI/Abdominal exam: PRESENT: normal bowel sounds, soft. ABSENT: distended, tenderness Extremities exam: PRESENT: other - Left hand with new postop dressing clean dry and intact. No surrounding cellulitis. Musculoskeletal exam: PRESENT: ambulatory Neurological exam: PRESENT: alert, awake, oriented to person, oriented to place , oriented to situation, CN II-XII grossly intact Psychiatric exam: PRESENT: appropriate affect. ABSENT: anxious Skin exam: PRESENT: dry, warm Results Laboratory Results: 07/09/17 05:27 07/09/17 05:27 Impressions: Finger X-Ray 07/04/17 18:33 IMPRESSION: FINDINGS INVOLVING THE DIP JOINT. DESTRUCTIVE CHANGES INVOLVING THE DISTAL END OF THE MIDDLE PHALANX CONCERNING FOR OSTEOMYELITIS. Assessment & Plan - Diagnosis (1) Osteomyelitis of finger of left hand Is this a current diagnosis for this admission?: Yes Plan: Cultures negative to date. Antibiotics discontinued yesterday. Patient will be followed by the orthopedic surgery clinic, Dr. Long, in 2 weeks for suture removal. (2) Diabetes type 1, uncontrolled Is this a current diagnosis for this admission?: Yes Plan: Today I recommended increase in short acting declines that for now. We will continue to watch his glucose closely and recommend up titration of insulin if indicated. Given that his blood glucose has been poorly controlled secondary to significant infection him for 1 more day to assure that he is not at risk for hyperglycemia/DKA and plan for discharge tomorrow if things are improved. (3) Acute pain Is this a current diagnosis for this admission?: Yes Plan: Today I discussed with patient the need to discontinue his IV opioids because he cannot use these for discharge. I have stopped the IV morphine. I also told him that I would be able to discharge him only with a day or 2 of opioids for pain control and that he needs to start asking his nurse for Tylenol to assist with pain control. He agrees. - Time Time Spent with patient: 25-34 minutes Medications reviewed and adjusted accordingly: Yes Anticipated discharge: Home - Inpatient Certification Based on my medical assessment, after consideration of the patient's comorbidities, presenting symptoms, or acuity I expect that the services needed warrant INPATIENT care.: Yes I certify that my determination is in accordance with my understanding of Medicare's requirements for reasonable and necessary INPATIENT services [42 CFR 412.3e].: Yes Medical Necessity: Risk of Complication if Not Cared For in Hospital
[2017-07-11] MEDS: OXYCODONE HCL IR 5 MG TABLET PO PRN ×5 (00:08→23:38)
[2017-07-11 05:10] LABS: HEMATOCRIT 27.3 % (37.9-51.0); HEMOGLOBIN 8.6 g/dL (13.5-17.0); MEAN CORPUSCULAR HEMOGLOBIN 24.6 pg (27.0-33.4); MEAN CORPUSCULAR HGB CONC 31.7 g/dL (32.0-36.0); MEAN CORPUSCULAR VOLUME 78 fl (80-97); PLATELET COUNT 480 10^3/uL (150-450); RED BLOOD COUNT 3.51 10^6/uL (4.35-5.55); RED CELL DISTRIBUTION WIDTH 17.3 % (11.5-14.0)
[2017-07-11 05:33] LABS: ANION GAP 12 (5-19); BLOOD UREA NITROGEN 28 mg/dL (7-20); CALCIUM 10.3 mg/dL (8.4-10.2); CARBON DIOXIDE 25 mmol/L (22-30); CHLORIDE 108 mmol/L (98-107); GLUCOSE 130 mg/dL (75-110); POTASSIUM 4.9 mmol/L (3.6-5.0); SODIUM 144.7 mmol/L (137-145)
[2017-07-11] MEDS: HEPARIN SOD (PORCINE) 5,000 UNIT/ML 1 ML SYRINGE SUBCUT SCH ×3 (06:57→22:11)
--- NOTE | 2017-07-11 07:38 | PDOC PROGRESS REPORT ---
Subjective Progress Note for:: 07/11/17 Reason For Visit: FINGER OSTEO DIABETES Status post left long finger PIP disarticulation. No adverse events over the last 24 hours. Physical Exam Vital Signs: Temp Pulse Resp BP Pulse Ox 36.8 C 100 18 122/74 99 07/10/17 23:22 07/10/17 23:22 07/10/17 23:22 07/10/17 23:22 07/10/17 23:22 Intake & Output 07/10/17 07/11/17 07/12/17 06:59 06:59 06:59 Intake Total 1565 2206 Balance 1565 2206 Weight 59.8 kg 60.8 kg Results Laboratory Results: 07/11/17 04:59 07/11/17 04:59 07/11/17 07/11/17 04:59 04:59 WBC 9.0 RBC 3.51 L Hgb 8.6 L Hct 27.3 L MCV 78 L MCH 24.6 L MCHC 31.7 L RDW 17.3 H Plt Count 480 H Sodium 144.7 Potassium 4.9 Chloride 108 H Carbon Dioxide 25 Anion Gap 12 BUN 28 H Creatinine 1.08 Est GFR ( Amer) > 60 Est GFR (Non-Af Amer) > 60 Glucose 130 H Calcium 10.3 H Impressions: Finger X-Ray 07/04/17 18:33 IMPRESSION: FINDINGS INVOLVING THE DIP JOINT. DESTRUCTIVE CHANGES INVOLVING THE DISTAL END OF THE MIDDLE PHALANX CONCERNING FOR OSTEOMYELITIS. Assessment & Plan - Diagnosis (1) Osteomyelitis of finger of left hand Is this a current diagnosis for this admission?: Yes Plan: Anticipate discharge home once medical condition permits
[2017-07-11] MEDS: INSULIN LISPRO 100 UNIT/ML 3 ML VIAL SUBCUT SCH ×3 (08:21→17:01)
[2017-07-11] MEDS: LIPASE/PROTEASE/AMYLASE 1 CAP CAPSULE.DR PO SCH ×2 (08:21→17:01)
[2017-07-11] MEDS ORDERED: OXYCODONE HCL IR 5 MG TABLET PO PRN (10:57)
[2017-07-11] MEDS ORDERED: GABAPENTIN 300 MG CAPSULE PO SCH (11:00)
--- NOTE | 2017-07-11 11:11 | PDOC PROGRESS REPORT ---
Subjective Progress Note for:: 07/11/17 Subjective:: Pt has been nauseated since early this am, slept more last night than in past few nights. No emesis, no diarrhea, normal urination. Left hand throbbing quite a bit. Also feeling some chest discomfort, not sure why. His blood glucose is better controlled today. No bleeding. Reason For Visit: FINGER OSTEO DIABETES Physical Exam Vital Signs: Temp Pulse Resp BP Pulse Ox 98.3 F 100 18 122/74 99 07/10/17 23:22 07/10/17 23:22 07/10/17 23:22 07/10/17 23:22 07/10/17 23:22 Intake & Output 07/10/17 07/11/17 07/12/17 06:59 06:59 06:59 Intake Total 1565 2206 Balance 1565 2206 Weight 59.8 kg 60.8 kg General appearance: PRESENT: no acute distress, thin Head exam: PRESENT: atraumatic, normocephalic Eye exam: ABSENT: conjunctival injection, scleral icterus Ear exam: PRESENT: normal external ear exam Mouth exam: PRESENT: moist Respiratory exam: PRESENT: decreased breath sounds, unlabored. ABSENT: rales, rhonchi, wheezes Cardiovascular exam: PRESENT: RRR. ABSENT: systolic murmur Pulses: PRESENT: normal radial pulses GI/Abdominal exam: PRESENT: normal bowel sounds, soft. ABSENT: distended, guarding, tenderness Extremities exam: ABSENT: calf tenderness Musculoskeletal exam: PRESENT: other - left hand dressed, ortho following wound , dressign CDI Neurological exam: PRESENT: awake, oriented to person, oriented to place, oriented to situation, CN II-XII grossly intact Psychiatric exam: PRESENT: appropriate affect. ABSENT: anxious Skin exam: PRESENT: dry, warm Results Laboratory Results: 07/11/17 04:59 07/11/17 04:59 07/11/17 07/11/17 04:59 04:59 WBC 9.0 RBC 3.51 L Hgb 8.6 L Hct 27.3 L MCV 78 L MCH 24.6 L MCHC 31.7 L RDW 17.3 H Plt Count 480 H Sodium 144.7 Potassium 4.9 Chloride 108 H Carbon Dioxide 25 Anion Gap 12 BUN 28 H Creatinine 1.08 Est GFR ( Amer) > 60 Est GFR (Non-Af Amer) > 60 Glucose 130 H Calcium 10.3 H Impressions: Finger X-Ray 07/04/17 18:33 IMPRESSION: FINDINGS INVOLVING THE DIP JOINT. DESTRUCTIVE CHANGES INVOLVING THE DISTAL END OF THE MIDDLE PHALANX CONCERNING FOR OSTEOMYELITIS. Assessment & Plan - Diagnosis (1) Osteomyelitis of finger of left hand Is this a current diagnosis for this admission?: Yes Plan: staph in finger tip culture, ABX dced. Pt is developing thrombocytosis. Will recheck tomorrow to assure plts not continuing to increase which could indicate continued infection. Cont wound care. (2) Diabetes type 1, uncontrolled Qualifiers: Diabetes mellitus complication detail: with diabetic retinopathy Is this a current diagnosis for this admission?: Yes Plan: blood glucose well controlled this am . Will cont current insulin care. pt has neuropathy which is severe, will cont his lyrica and increase gabapentin to 400 tid from 300 tid. (3) Acute pain Is this a current diagnosis for this admission?: Yes Plan: Hand still throbbing, but improved. Awakened him from sleep last night. Will cont tylenol and will decrease oxycodone to 10 mg po q5hrs prn pain 4-5. (4) Nausea Is this a current diagnosis for this admission?: Yes Plan: etiology not clear. no emesis. Could be related to pain and/or low blood glucose. Monitor. Pt still able to eat. - Time Time Spent with patient: 25-34 minutes Medications reviewed and adjusted accordingly: Yes Anticipated discharge: Home - Inpatient Certification Based on my medical assessment, after consideration of the patient's comorbidities, presenting symptoms, or acuity I expect that the services needed warrant INPATIENT care.: Yes I certify that my determination is in accordance with my understanding of Medicare's requirements for reasonable and necessary INPATIENT services [42 CFR 412.3e].: Yes Medical Necessity: Risk of Complication if Not Cared For in Hospital
[2017-07-11] MEDS: INSULIN GLARGINE,HUM.REC.ANLOG 300 UNIT/3 ML INSULN.PEN SUBCUT SCH ×2 (11:27→22:11)
[2017-07-11] MEDS: PREGABALIN 75 MG CAPSULE PO SCH ×2 (11:32→18:33)
[2017-07-11] MEDS: GABAPENTIN 400 MG CAPSULE PO SCH ×2 (14:57→22:12)
[2017-07-11] MEDS: INSULIN LISPRO 100 UNIT/ML 3 ML VIAL SUBCUT PRN ×2 (17:01→22:11)
[2017-07-11] MEDS ORDERED: ACETAMINOPHEN 325 MG TABLET PO PRN (21:07)
[2017-07-12 02:02] VITALS: BP 118/80
[2017-07-12] MEDS: OXYCODONE HCL IR 5 MG TABLET PO PRN ×3 (04:50→17:13)
[2017-07-12] MEDS: GABAPENTIN 400 MG CAPSULE PO SCH ×2 (05:00→17:13)
[2017-07-12] MEDS: HEPARIN SOD (PORCINE) 5,000 UNIT/ML 1 ML SYRINGE SUBCUT SCH ×2 (05:00→17:28)
[2017-07-12 05:28] LABS: HEMATOCRIT 25.2 % (37.9-51.0); MEAN CORPUSCULAR HEMOGLOBIN 24.7 pg (27.0-33.4); MEAN CORPUSCULAR HGB CONC 31.9 g/dL (32.0-36.0); MEAN CORPUSCULAR VOLUME 77 fl (80-97); PLATELET COUNT 450 10^3/uL (150-450); RED BLOOD COUNT 3.25 10^6/uL (4.35-5.55); RED CELL DISTRIBUTION WIDTH 17.3 % (11.5-14.0); WHITE BLOOD COUNT 8.9 10^3/uL (4.0-10.5)
[2017-07-12 05:57] LABS: ANION GAP 10 (5-19); BLOOD UREA NITROGEN 29 mg/dL (7-20); CALCIUM 9.9 mg/dL (8.4-10.2); CARBON DIOXIDE 25 mmol/L (22-30); CHLORIDE 104 mmol/L (98-107); GLUCOSE 199 mg/dL (75-110); POTASSIUM 5.3 mmol/L (3.6-5.0); SODIUM 139.2 mmol/L (137-145)
[2017-07-12] MEDS: LIPASE/PROTEASE/AMYLASE 1 CAP CAPSULE.DR PO SCH ×2 (08:21→17:23)
[2017-07-12] MEDS: INSULIN LISPRO 100 UNIT/ML 3 ML VIAL SUBCUT SCH ×3 (08:22→17:22)
[2017-07-12] MEDS: INSULIN LISPRO 100 UNIT/ML 3 ML VIAL SUBCUT PRN ×2 (08:26→17:22)
[2017-07-12] MEDS: PREGABALIN 75 MG CAPSULE PO SCH ×2 (11:13→18:00)
[2017-07-12] MEDS: INSULIN GLARGINE,HUM.REC.ANLOG 300 UNIT/3 ML INSULN.PEN SUBCUT SCH (11:14)
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
== END 2017-07-12 20:43 | disposition home or self-care (01) | DRG 988 ==
LOC: ER 17:45 → EH 22:24 → 4N 23:08
PROVIDERS: ADMIT Internal Medicine; ATTEND Internal Medicine
PROC: 0X6R0Z2 Detachment at Left Middle Finger, Mid, Open Approach (ICD-10-PCS; principal; 2017-07-07 09:00)
DX: E10.69 Type 1 diabetes mellitus with other specified complication (principal); M86.142 Other acute osteomyelitis, left hand; D62 Acute posthemorrhagic anemia; E10.628 Type 1 diabetes mellitus with other skin complications; E10.65 Type 1 diabetes mellitus with hyperglycemia; G89.18 Other acute postprocedural pain; T38.3X6A Underdosing of insulin and oral hypoglycemic [antidiabetic] drugs, initial encounter; L03.012 Cellulitis of left finger; K21.9 Gastro-esophageal reflux disease without esophagitis; D64.9 Anemia, unspecified; F32.9 Major depressive disorder, single episode, unspecified; F19.10 Other psychoactive substance abuse, uncomplicated; E10.40 Type 1 diabetes mellitus with diabetic neuropathy, unspecified; S60.413A Abrasion of left middle finger, initial encounter; X58.XXXA Exposure to other specified factors, initial encounter; Z91.130 Patient's unintentional underdosing of medication regimen due to age-related debility; Z87.891 Personal history of nicotine dependence; Z82.49 Family history of ischemic heart disease and other diseases of the circulatory system; Z83.3 Family history of diabetes mellitus; Z79.4 Long term (current) use of insulin; Z91.19 Patient's noncompliance with other medical treatment and regimen; Z88.8 Allergy status to other drugs, medicaments and biological substances
CPT/HCPCS: 01830; 36415; 80048; 80053; 80202; 81001; 82803; 82962; 83036; 83605; 85025; 85027; 85652; 87040; 87070; 87075; 87077; 87186; 87205; 88305; 88311; 96365; 96367; 99285; J1644; J1815; J2250; J2270; J2543; J2704; J3010; J3370; J3490; J7030; J7060

== ENCOUNTER 2017-07-22 18:05 | Emergency (ER) | payer SELFPAY ==
[2017-07-22] MEDS ORDERED: METOCLOPRAMIDE HCL INJ/PF 10 MG/2 ML SDV IM ONE (18:45)
--- NOTE | 2017-07-22 18:47 | ER Document Report ---
ED Medical Screen (RME) - General Chief Complaint: Chest Pain Stated Complaint: CHEST/ABDOMINAL PAIN Time Seen by Provider: 07/22/17 18:41 Notes: RAPID MEDICAL EVALUATION DISCLOSURE I have seen this patient as part of a Rapid Medical Evaluation and, if applicable, placed any initially appropriate orders. The patient will be seen and fully evaluated, including a full history and physical exam, by a provider ( in Main ED or Fast Track) when a room becomes available. 37-year-old male here with complaints of chest pain abdominal pain shortness of breath vomiting nausea diarrhea ongoing for the past 1 day. The symptoms are worse with breathing and exertion. He has not tried taking anything for the symptoms. Patient is laying his head in his lap and is not very cooperative with history taking at this time. Denies history of CAD hypertension hyperlipidemia tobacco/cocaine use but does have history of diabetes. Exam CTAB RRR Mild Diffuse TTP TRAVEL OUTSIDE OF THE [place] IN LAST 30 DAYS: No - Related Data Allergies/Adverse Reactions: ondansetron [From Zofran (as hydrochloride)] Allergy (Verified 07/22/17 18:07) Past Medical History - Social History Chew tobacco use (# tins/day): No Frequency of alcohol use: None Drug Abuse: None - Past Medical History Cardiac Medical History: Reports: Hx Hypercholesterolemia, Hx Hypertension - Taken off medication for same. Denies: Hx Atrial Fibrillation, Hx Congestive Heart Failure, Hx Coronary Artery Disease, Hx Heart Attack, Hx Pulmonary Embolism Pulmonary Medical History: Denies: Hx Asthma, Hx COPD, Hx Sleep Apnea Neurological Medical History: Denies: Hx Seizures Endocrine Medical History: Reports: Hx Diabetes Mellitus Type 1, Hx Diabetes Mellitus Type 2. Denies: Hx Hyperthyroidism, Hx Hypothyroidism Renal/ Medical History: Denies: Hx Peritoneal Dialysis GI Medical History: Reports: Hx Gastroesophageal Reflux Disease, Hx Pancreatitis. Denies: Hx Cirrhosis, Hx Hepatitis Musculoskeltal Medical History: Denies Hx Arthritis Psychiatric Medical History: Reports: Hx Depression Infectious Medical History: Denies: Hx Hepatitis Past Surgical History: Reports: Hx Orthopedic Surgery - back. Denies: Hx Appendectomy, Hx Cholecystectomy, Hx Tonsillectomy - Immunizations Hx Diphtheria, Pertussis, Tetanus Vaccination: Yes History of Influenza Vaccine for 11/2016 - 04/2017 Season: Refused Physical Exam - Vital signs Vitals: Temp Pulse Resp BP Pulse Ox 97.5 F 95 18 109/81 100 07/22/17 18:28 07/22/17 18:28 07/22/17 18:28 07/22/17 18:28 07/22/17 18:28 Course - Vital Signs Vital signs: Temp Pulse Resp BP Pulse Ox 97.5 F 95 18 109/81 100 07/22/17 18:28 07/22/17 18:28 07/22/17 18:28 07/22/17 18:28 07/22/17 18:28
--- NOTE | 2017-07-22 19:31 | RADIOLOGY REPORT (SQ) ---
EXAM DESCRIPTION: ACUTE ABDOMEN SERIES COMPLETED DATE/TIME: 07/22/2017 7:23 pm REASON FOR STUDY: CP abd pain SOB COMPARISON: 11/25/2016 NUMBER OF VIEWS: Three views. TECHNIQUE: PA chest, supine abdomen and upright/decubitus abdomen radiographic images acquired. LIMITATIONS: None. FINDINGS: CHEST: Lungs clear of infiltrates. FREE AIR: None. No abnormal gas collections. BOWEL GAS PATTERN: Scattered small bowel loops with air fluid levels. No distended large or small bow el loops. CALCIFICATIONS: No suspicious calcifications. HARDWARE: None in the abdomen. SOFT TISSUES: No gross mass or suggestion of organomegaly. BONES: No acute fracture. No worrisome bone lesions. OTHER: No other significant finding. IMPRESSION: NONSPECIFIC BOWEL GAS PATTERN. TECHNICAL DOCUMENTATION: JOB ID: [id number] [employer]- All Rights Reserved Reading location - IP/workstation name: [email or web address]
[2017-07-22] MEDS ORDERED: NORMAL SALINE 1000 ML 1,000 ML IV ONE ×2 (19:55→20:33)
[2017-07-22 19:58] LABS: ABSOLUTE BASOPHILS # (AUTO) 0.1 10^3/uL (0.0-0.2); ABSOLUTE EOSINOPHILS # (AUTO) 0.2 10^3/uL (0.0-0.6); ABSOLUTE LYMPHOCYTES (AUTO) 1.3 10^3/uL (0.5-4.7); ABSOLUTE MONOCYTES (AUTO) 0.4 10^3/uL (0.1-1.4); BASOPHILS % (AUTO) 1.8 % (0-2); EOSINOPHILS % (AUTO) 3.8 % (0-6); HEMATOCRIT 30.6 % (37.9-51.0); HEMOGLOBIN 9.4 g/dL (13.5-17.0); LYMPHOCYTES % (AUTO) 26.3 % (13-45); MEAN CORPUSCULAR HEMOGLOBIN 24.2 pg (27.0-33.4); MEAN CORPUSCULAR HGB CONC 30.9 g/dL (32.0-36.0); MEAN CORPUSCULAR VOLUME 78 fl (80-97); MONOCYTES % (AUTO) 8.8 % (3-13); PLATELET COUNT 438 10^3/uL (150-450); RED CELL DISTRIBUTION WIDTH 17.5 % (11.5-14.0); SEGMENTED NEUTROPHILS % (AUTO) 59.3 % (42-78); TOTAL CELLS COUNTED % (AUTO) 100 %; WHITE BLOOD COUNT 5.1 10^3/uL (4.0-10.5)
--- NOTE | 2017-07-22 20:04 | ER Document Report ---
ED General - General Chief Complaint: Chest Pain Stated Complaint: CHEST/ABDOMINAL PAIN Time Seen by Provider: 07/22/17 18:41 Mode of Arrival: Ambulatory Information source: Patient Notes: 37-year-old male patient presents with complaints of chest and abdominal pain that is worse with a deep breath. Patient also reports vomiting and diarrhea. Patient denies any urinary symptoms and denies any. Patient reports that he feels like he is in DKA and pancreatitis. Patient reports that he ran out of his Levemir 2 days ago and has not checked his sugar in 4 days. Patient reports that he does not have a primary care provider. Patient's past medical history includes hyperlipidemia, hypertension, insulin-dependent diabetes, thyroid disorder, GERD, pancreatitis and depression. TRAVEL OUTSIDE OF THE [place] IN LAST 30 DAYS: No - Related Data Allergies/Adverse Reactions: ondansetron [From Zofran (as hydrochloride)] Allergy (Verified 07/22/17 18:07) Past Medical History - General Information source: Patient - Social History Smoking Status: Never Smoker Chew tobacco use (# tins/day): No Frequency of alcohol use: None Drug Abuse: Marijuana Family History: DM, Hyperlipidemia, Hypertension Patient has suicidal ideation: No Patient has homicidal ideation: No - Past Medical History Cardiac Medical History: Reports: Hx Hypercholesterolemia, Hx Hypertension - Taken off medication for same. Denies: Hx Atrial Fibrillation, Hx Congestive Heart Failure, Hx Coronary Artery Disease, Hx Heart Attack, Hx Pulmonary Embolism Pulmonary Medical History: Denies: Hx Asthma, Hx COPD, Hx Sleep Apnea Neurological Medical History: Denies: Hx Seizures Endocrine Medical History: Reports: Hx Diabetes Mellitus Type 1, Hx Diabetes Mellitus Type 2. Denies: Hx Hyperthyroidism, Hx Hypothyroidism Renal/ Medical History: Denies: Hx Peritoneal Dialysis GI Medical History: Reports: Hx Gastroesophageal Reflux Disease, Hx Pancreatitis. Denies: Hx Cirrhosis, Hx Hepatitis Musculoskeltal Medical History: Denies Hx Arthritis Psychiatric Medical History: Reports: Hx Depression Infectious Medical History: Denies: Hx Hepatitis Past Surgical History: Reports: Hx Orthopedic Surgery - back. Denies: Hx Appendectomy, Hx Cholecystectomy, Hx Tonsillectomy - Immunizations Hx Diphtheria, Pertussis, Tetanus Vaccination: Yes Hx Pneumococcal Vaccination: 11/09/11 Review of Systems - Review of Systems Constitutional: No symptoms reported. denies: Fever EENT: No symptoms reported Cardiovascular: See HPI Respiratory: See HPI Gastrointestinal: See HPI Genitourinary: No symptoms reported Male Genitourinary: No symptoms reported Musculoskeletal: No symptoms reported Skin: No symptoms reported Hematologic/Lymphatic: No symptoms reported Neurological/Psychological: No symptoms reported Physical Exam - Vital signs Vitals: Temp Pulse Resp BP Pulse Ox 97.5 F 95 18 109/81 100 07/22/17 18:28 07/22/17 18:28 07/22/17 18:28 07/22/17 18:28 07/22/17 18:28 - Notes Notes: PHYSICAL EXAMINATION: GENERAL: Well-appearing, well-nourished and in no acute distress. HEAD: Atraumatic, normocephalic. EYES: Pupils equal round and reactive to light, extraocular movements intact, sclera anicteric, conjunctiva are normal. ENT: Nares patent, oropharynx clear without exudates. Moist mucous membranes. NECK: Normal range of motion, supple without lymphadenopathy LUNGS: Breath sounds clear to auscultation bilaterally and equal. No wheezes rales or rhonchi. HEART: Regular rate and rhythm without murmurs ABDOMEN: Mild generalized TTP, otherwise soft, nondistended abdomen. No guarding, no rebound. No masses appreciated. Musculoskeletal: Normal range of motion, no pitting or edema. No cyanosis. NEUROLOGICAL: Cranial nerves grossly intact. Normal speech, normal gait. Normal sensory, motor exams PSYCH: Normal mood, normal affect. SKIN: Warm, Dry, normal turgor, no rashes or lesions noted. Course - Re-evaluation Re-evalutation: 37-year-old male patient who is well-known to our facility. Patient presents complaining of chest, abdominal pain, vomiting, diarrhea. Patient reports he has been out of his Levemir for 2 days. Patient reports he has not checked his blood sugar in approximately 4 days. Patient reports that he feels like he is probably in DKA and has pancreatitis. Will check CBC, comprehensive, lipase, cardiac enzymes as well as VBG to evaluate for DKA versus pancreatitis. Patient does appear well, is normotensive and is not tachycardic. Patient denies any fevers. CBC is unremarkable infection. Patient's H&H is chronically low. VBG is normal , patient is not acidotic. Cardiac enzymes are negative. Urinalysis is negative for any infection. Lipase is mildly elevated at 480 however patient's lipase is typically higher than this. Initial glucose is 632. Comprehensive metabolic panel is relatively benign other than his elevated glucose and low sodium.. Sodium is low however his corrected sodium is 140. Plan to hydrate patient with IV fluids, get glucose lowered and will discharge patient home as long as he is asymptomatic. After multiple liters of IV fluids as well as several doses of insulin, patient' s blood glucose is slowly coming down over the last 6 hours and is now 164. Patient reports that he feels well enough to go home. Patient does have mild pancreatitis however patient has not vomited while in the department patient has had 2 episodes of diarrhea patient was given a dose of Imodium. Patient given return precautions. Patient's vital signs remained stable during his emergency department visit. - Vital Signs Vital signs: Temp Pulse Resp BP Pulse Ox 97.5 F 79 18 112/71 100 07/23/17 02:20 07/23/17 02:20 07/23/17 02:20 07/23/17 02:20 07/23/17 02:20 - Laboratory Result Diagrams: 07/22/17 19:40 07/22/17 22:45 Laboratory results interpreted by me: 07/22/17 07/22/17 07/22/17 19:40 19:40 20:28 RBC 3.90 L Hgb 9.4 L Hct 30.6 L MCV 78 L MCH 24.2 L MCHC 30.9 L RDW 17.5 H VBG HCO3 18.0 L Sodium 132.4 L Carbon Dioxide 16 L BUN 25 H Creatinine 1.35 H Glucose 670 H* POC Glucose AST 11 L ALT 19 L Albumin 3.4 L Lipase 480.0 H Urine Protein Urine Glucose (UA) 07/22/17 07/22/17 07/23/17 21:41 22:45 01:22 RBC Hgb Hct MCV MCH MCHC RDW VBG HCO3 Sodium 131.8 L Carbon Dioxide 16 L BUN 22 H Creatinine Glucose 632 H* POC Glucose 421 H* AST ALT Albumin Lipase Urine Protein 100 H Urine Glucose (UA) >=500 H 07/23/17 03:16 RBC Hgb Hct MCV MCH MCHC RDW VBG HCO3 Sodium Carbon Dioxide BUN Creatinine Glucose POC Glucose 164 H AST ALT Albumin Lipase Urine Protein Urine Glucose (UA) Discharge - Discharge Clinical Impression: Hyperglycemia due to type 1 diabetes mellitus Diarrhea Qualifiers: Diarrhea type: unspecified type Qualified Code(s): R19.7 - Diarrhea, unspecified Pancreatitis Qualifiers: Chronicity: chronic Pancreatitis type: unspecified pancreatitis type Qualified Code(s): K86.1 - Other chronic pancreatitis Condition: Stable Disposition: HOME, SELF-CARE Additional Instructions: Pancreatitis Pancreatitis is an inflammation of the pancreas, an organ at the back of your abdomen. The pancreas produces insulin and enzymes that digest your food. Pancreatitis can be caused by gallstones in the bile duct, by alcohol or viruses, or by excess fat or calcium in the blood stream. Occasionally, pancreatitis occurs when a stomach ulcer taylor through into the pancreas. We try to find the cause of pancreatitis, but some tests can't be done until the pancreas heals. The usual symptoms of pancreatitis are pain in the pit of the stomach that goes straight through to the back, vomiting, and low-grade fever. Severe cases require hospital admission, but many patients with mild pancreatitis do well at home. You will probably need medicine for pain and for vomiting. Sometimes we prescribe medicine to decrease stomach acid secretion and to decrease flow of pancreatic juices. Start with a diet of clear liquids (soda pop, juices). When the pain is decreasing, you can add some simple starches (potato, toast, applesauce). Avoid proteins and fats until you are completely painfree. When you're better, your doctor may suggest treatment to prevent future pancreatitis (such as gallbladder removal). Avoid alcohol forever. Get immediate treatment for any future episodes. Contact your doctor at once or return here if you have increasing pain, shortness of breath, general swelling, increasing size of the abdomen, continued vomiting, muscle spasms, or other new symptoms. Hyperglycemia (High Blood Sugar) You have an abnormally high blood sugar. Not all high blood sugar requires long-term treatment. High blood sugar can be due to medications, , or the stress of illness. (These cases are "borderline diabetes.") If the doctor feels your high blood sugar might resolve with time, you may not require treatment now. You will be scheduled for further evaluation. It's very important that you follow through, to see if the blood sugar returns to normal levels. Uncontrolled high blood sugar leads to early heart disease, strokes, nerve damage, eye damage, and kidney damage. Call the physician if there is faintness, excess sleepiness, or very rapid breathing. Diarrhea Diarrhea means frequent, watery stools. There are many causes. Any problem that keeps the intestinal tract from absorbing water from the stool can lead to diarrhea. A sudden new diarrhea problem is usually caused by a virus, food sensitivity, toxic bacteria, or drugs. In this case, we expect the problem to go away soon. Testing is done only if you seem seriously ill from the diarrhea. If you have chronic diarrhea, or diarrhea that keeps coming back, we need to find out why. Chronic diarrhea can be due to inflammation of the bowels such as Crohn's disease or ulcerative colitis, food sensitivity such as intolerance to lactose or wheat protein, irritable bowel syndrome, and other problems. If your diarrhea is a significant problem but it's not clear why you have it, we' ll refer you to a specialist for further testing. During an episode of diarrhea, drink small amounts (two to six ounces) of clear liquids (soft drinks, sport drinks, herb teas, broth, etc). Take fluids frequently to prevent dehydration. It's usually not a problem to take mild anti- diarrhea medication such as Kaopectate or Pepto-Bismol. As the diarrhea eases, advance to small amounts of bland food (mashed potato, toast) for 24 hours. Call the physician if blood appears in your vomit or stool, if vomiting lasts longer than 24 hours, if the abdominal pain worsens or becomes localized to one area, if you develop high fever, or if you become lightheaded and weak. Your blood sugar today was elevated in the 600s. There was no evidence that you were in diabetic ketoacidosis. You were given 2 doses of insulin which brought her sugar down to a more acceptable level. Please do your best to take your insulin as prescribed by the doctor. Return to the emergency department if you develop worsening symptoms such as fever, vomiting or worsening abdominal pain. Please stop using alcohol and stop smoking. Take ibuprofen or acetaminophen for pain, supplement with the tramadol I have prescribed. Prescriptions: Loperamide HCl [Imodium 2 mg Capsule] 2 mg PO Q4HP PRN #21 cap PRN Reason: Tramadol HCl 50 mg PO Q6 PRN #20 tablet PRN Reason: For Pain
[2017-07-22 20:08] LABS: ALANINE AMINOTRANSFERASE 19 U/L (21-72); ALBUMIN 3.4 g/dL (3.5-5.0); ALKALINE PHOSPHATASE 118 U/L (38-126); ANION GAP 14 (5-19); ASPARTATE AMINO TRANSFERASE 11 U/L (17-59); BILIRUBIN,DIRECT 0.2 mg/dL (0.0-0.4); BILIRUBIN,TOTAL 0.2 mg/dL (0.2-1.3); BLOOD UREA NITROGEN 25 mg/dL (7-20); CALCIUM 9.1 mg/dL (8.4-10.2); CARBON DIOXIDE 16 mmol/L (22-30); CHLORIDE 102 mmol/L (98-107); POTASSIUM 4.2 mmol/L (3.6-5.0); SODIUM 132.4 mmol/L (137-145); TOTAL PROTEIN 7.2 g/dL (6.3-8.2)
[2017-07-22 20:21] LABS: GLUCOSE 670 mg/dL (75-110)
--- NOTE | 2017-07-22 20:24 | EKG REPORT ---
SEVERITY:- BORDERLINE ECG - SINUS RHYTHM ST ELEV, PROBABLE NORMAL EARLY REPOL PATTERN BORDERLINE PROLONGED QT INTERVAL : Confirmed by: Juan Pablo Holm MD 22-Jul-2017 20:23:20
[2017-07-22] MEDS ORDERED: INSULIN LISPRO 100 UNIT/ML 3 ML VIAL SUBCUT ONE ×2 (20:33→23:29)
[2017-07-22 20:39] LABS: VENOUS BLOOD BASE EXCESS -7.4 mmol/L; VENOUS BLOOD PCO2 35.6 mmHg (35-63); VENOUS BLOOD PH 7.32 (7.30-7.42)
[2017-07-22 22:02] LABS: APPEARANCE,URINE SLIGHTLY-CLOUDY; BILIRUBIN,URINE NEGATIVE (NEGATIVE); COLOR,URINE YELLOW; GLUCOSE, URINE >=500 mg/dL (NEGATIVE); KETONES,URINE NEGATIVE (NEGATIVE); LEUKOCYTE ESTERASE,URINE NEGATIVE (NEGATIVE); NITRITE,URINE NEGATIVE (NEGATIVE); PROTEIN,URINE 100 mg/dL (NEGATIVE); URINE SPECIFIC GRAVITY 1.025; UROBILINOGEN,URINE NEGATIVE mg/dL (<2.0)
[2017-07-22 23:03] LABS: ANION GAP 12 (5-19); BLOOD UREA NITROGEN 22 mg/dL (7-20); CALCIUM 8.6 mg/dL (8.4-10.2); CARBON DIOXIDE 16 mmol/L (22-30); CHLORIDE 104 mmol/L (98-107); POTASSIUM 3.7 mmol/L (3.6-5.0); SODIUM 131.8 mmol/L (137-145)
[2017-07-22 23:16] LABS: GLUCOSE 632 mg/dL (75-110)
[2017-07-22] MEDS ORDERED: INSULIN GLARGINE,HUM.REC.ANLOG 1,000 UNIT/10 ML UNIT SUBCUT ONE (23:27)
[2017-07-22] MEDS ORDERED: NORMAL SALINE 1000 ML 2,000 ML IV ONE (23:30)
[2017-07-23] MEDS ORDERED: LOPERAMIDE HCL 2 MG CAPSULE PO ONE (02:01)
[2017-07-23] MEDS ORDERED: METOCLOPRAMIDE HCL INJ/PF 10 MG/2 ML SDV IV ONE (02:01)
[2017-07-23 02:23] VITALS: BP 112/71
== END 2017-07-23 03:24 | disposition home or self-care (01) ==
LOC: ER 18:05
DX: E10.65 Type 1 diabetes mellitus with hyperglycemia (principal); K86.1 Other chronic pancreatitis; R07.9 Chest pain, unspecified; R10.9 Unspecified abdominal pain; R11.10 Vomiting, unspecified; R19.7 Diarrhea, unspecified; E78.00 Pure hypercholesterolemia, unspecified; I10 Essential (primary) hypertension; Z79.4 Long term (current) use of insulin
CPT/HCPCS: 93005; 99285; 96372; 96361; 96374; 36415; 82553; 82962; 82550; 83690; 85025; 80048; 80053; 81001; 84484; 82803; 74022; 93010; J1815 ×2; J2765 ×2; J7030 ×2

== ENCOUNTER 2017-08-26 15:44 | Inpatient (IN) | payer SELFPAY ==
[2017-08-26] MEDS ORDERED: NORMAL SALINE 1000 ML 1,000 ML IV PRN (15:57)
--- NOTE | 2017-08-26 15:59 | ER Document Report ---
ED Medical Screen (RME) - General Chief Complaint: Abdominal Pain Stated Complaint: ABDOMINAL PAIN,BLOOD SUGAR PROBLEMS Time Seen by Provider: 08/26/17 15:52 Notes: RAPID MEDICAL EVALUATION DISCLOSURE I have seen this patient as part of a Rapid Medical Evaluation and, if applicable, placed any initially appropriate orders. The patient will be seen and fully evaluated, including a full history and physical exam, by a provider ( in Main ED or Fast Track) when a room becomes available. 37-year-old male PMH diabetes DKA pancreatitis here with complaints of abdominal pain generalized weakness nausea vomiting diarrhea ongoing for the past few days. He does not have any test strips so he has been unable to check his blood sugars. He denies missing any doses of his insulin. Per chart review , he has had numerous episodes of DKA and he states this feels similar. EXAM CTAB Tachycardic Mild diffuse abdominal TTP TRAVEL OUTSIDE OF THE [place] IN LAST 30 DAYS: No - Related Data Allergies/Adverse Reactions: ondansetron [From Zofran (as hydrochloride)] Allergy (Verified 08/26/17 15:45) Past Medical History - Social History Chew tobacco use (# tins/day): No Frequency of alcohol use: None Drug Abuse: Marijuana - Past Medical History Cardiac Medical History: Reports: Hx Hypercholesterolemia, Hx Hypertension - Taken off medication for same. Denies: Hx Atrial Fibrillation, Hx Congestive Heart Failure, Hx Coronary Artery Disease, Hx Heart Attack, Hx Pulmonary Embolism Pulmonary Medical History: Denies: Hx Asthma, Hx COPD, Hx Sleep Apnea Neurological Medical History: Denies: Hx Seizures Endocrine Medical History: Reports: Hx Diabetes Mellitus Type 1, Hx Diabetes Mellitus Type 2. Denies: Hx Hyperthyroidism, Hx Hypothyroidism Renal/ Medical History: Denies: Hx Peritoneal Dialysis GI Medical History: Reports: Hx Gastroesophageal Reflux Disease, Hx Pancreatitis. Denies: Hx Cirrhosis, Hx Hepatitis Musculoskeltal Medical History: Denies Hx Arthritis Psychiatric Medical History: Reports: Hx Depression Infectious Medical History: Denies: Hx Hepatitis Past Surgical History: Reports: Hx Orthopedic Surgery - back. Denies: Hx Appendectomy, Hx Cholecystectomy, Hx Tonsillectomy - Immunizations Hx Diphtheria, Pertussis, Tetanus Vaccination: Yes History of Influenza Vaccine for 11/2016 - 04/2017 Season: Refused Physical Exam - Vital signs Vitals: Temp Pulse Resp BP Pulse Ox 99.1 F 116 H 14 123/88 H 97 08/26/17 15:48 08/26/17 15:48 08/26/17 15:48 08/26/17 15:48 08/26/17 15:48 Course - Vital Signs Vital signs: Temp Pulse Resp BP Pulse Ox 99.1 F 116 H 14 123/88 H 97 08/26/17 15:48 08/26/17 15:48 08/26/17 15:48 08/26/17 15:48 08/26/17 15:48
[2017-08-26 16:27] LABS: VENOUS BLOOD BASE EXCESS -3.2 mmol/L; VENOUS BLOOD HCO3 21.6 mmol/L (20-32); VENOUS BLOOD PH 7.37 (7.30-7.42)
[2017-08-26 16:31] LABS: ABSOLUTE BASOPHILS # (AUTO) 0.1 10^3/uL (0.0-0.2); ABSOLUTE LYMPHOCYTES (AUTO) 1.1 10^3/uL (0.5-4.7); ABSOLUTE MONOCYTES (AUTO) 1.1 10^3/uL (0.1-1.4); ABSOLUTE NEUT (AUTO) 16.9 10^3/uL (1.7-8.2); BASOPHILS % (AUTO) 0.5 % (0-2); EOSINOPHILS % (AUTO) 0.1 % (0-6); HEMATOCRIT 32.3 % (37.9-51.0); HEMOGLOBIN 10.3 g/dL (13.5-17.0); LYMPHOCYTES % (AUTO) 5.8 % (13-45); MEAN CORPUSCULAR HEMOGLOBIN 23.9 pg (27.0-33.4); MEAN CORPUSCULAR HGB CONC 31.9 g/dL (32.0-36.0); MEAN CORPUSCULAR VOLUME 75 fl (80-97); MONOCYTES % (AUTO) 5.9 % (3-13); PLATELET COUNT 476 10^3/uL (150-450); RED BLOOD COUNT 4.32 10^6/uL (4.35-5.55); RED CELL DISTRIBUTION WIDTH 19.2 % (11.5-14.0); SEGMENTED NEUTROPHILS % (AUTO) 87.7 % (42-78); TOTAL CELLS COUNTED % (AUTO) 100 %; WHITE BLOOD COUNT 19.3 10^3/uL (4.0-10.5)
--- NOTE | 2017-08-26 16:53 | RADIOLOGY REPORT (SQ) ---
EXAM DESCRIPTION: HAND RIGHT 2 VIEWS COMPLETED DATE/TIME: 08/26/2017 4:22 pm REASON FOR STUDY: infection, diabetic; gas, osteo? COMPARISON: None. EXAM PARAMETERS: NUMBER OF VIEWS: Two view. TECHNIQUE: AP and lateral radiographic images acquired of the right hand. LIMITATIONS: None. FINDINGS: MINERALIZATION: Normal. BONES: No acute fracture or dislocation. No worrisome bone lesions. No significant osteophytes. JOINTS: No erosions. No romina-articular osteopenia. No chondrocalcinosis. SOFT TISSUES: No swelling. No gas within the soft tissue. OTHER: No other significant finding. IMPRESSION: No radiographic evidence of osteomyelitis. No gas within soft tissue or other soft tiss ue abnormality. TECHNICAL DOCUMENTATION: JOB ID: [id number] [employer]- All Rights Reserved Reading location - IP/workstation name: [email or web address]
[2017-08-26 16:54] LABS: ALANINE AMINOTRANSFERASE 19 U/L (21-72); ALBUMIN 4.2 g/dL (3.5-5.0); ALKALINE PHOSPHATASE 166 U/L (38-126); ANION GAP 19 (5-19); ASPARTATE AMINO TRANSFERASE 23 U/L (17-59); BILIRUBIN,DIRECT 0.5 mg/dL (0.0-0.4); BILIRUBIN,TOTAL 0.6 mg/dL (0.2-1.3); BLOOD UREA NITROGEN 22 mg/dL (7-20); CALCIUM 10.1 mg/dL (8.4-10.2); CARBON DIOXIDE 20 mmol/L (22-30); CHLORIDE 97 mmol/L (98-107); GLUCOSE 293 mg/dL (75-110); LIPASE 96.1 U/L (23-300); POTASSIUM 4.7 mmol/L (3.6-5.0); TOTAL PROTEIN 8.7 g/dL (6.3-8.2)
[2017-08-26 17:15] LABS: ERYTHROCYTE SEDIMENTATION RATE 109 mm/hr (0-15)
[2017-08-26] MEDS ORDERED: PIPERACILLIN/TAZOBACTAM 3.375 GM VIAL IV ONE (17:17)
[2017-08-26] MEDS ORDERED: METOCLOPRAMIDE HCL INJ/PF 10 MG/2 ML SDV IV ONE (17:18)
[2017-08-26] MEDS ORDERED: ACETAMINOPHEN 325 MG TABLET PO ONE (17:19)
[2017-08-26] MEDS ORDERED: NORMAL SALINE 1000 ML 1,000 ML IV ONE (17:19)
[2017-08-26] MEDS ORDERED: TETANUS/DIPHTHERIA TOX-ADULT 0.5 ML SYR (>=7YO) IM ONE (17:23)
--- NOTE | 2017-08-26 17:25 | ER Document Report ---
ED General - General Chief Complaint: Abdominal Pain Stated Complaint: ABDOMINAL PAIN,BLOOD SUGAR PROBLEMS Time Seen by Provider: 08/26/17 15:52 Mode of Arrival: Ambulatory Information source: Patient TRAVEL OUTSIDE OF THE [place] IN LAST 30 DAYS: No - HPI Patient complains to provider of: Right hand infection, high blood sugar Onset: Last week Onset/Duration: Gradual, Persistent, Worse Quality of pain: Achy, Pressure Severity: Moderate Pain Level: 4 Associated symptoms: Fever, Nausea, Vomiting Exacerbated by: Movement Relieved by: Denies Notes: Patient is a 37-year-old male with diabetes who presents to the emergency room today complaining of nausea and vomiting with high blood sugar which is consistent with diabetic ketoacidosis that he has had in the past, he ran out of test strips and has been unable to check his blood sugars at home but he continues to take his insulin, 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 and got a cut on his right hand approximately 1 week ago, states he thinks he got some dust in it and since then it has become more red and swollen and painful, he reports fevers as well - Related Data Allergies/Adverse Reactions: ondansetron [From Zofran (as hydrochloride)] Allergy (Verified 08/26/17 15:45) Past Medical History - General Information source: Patient - Social History Smoking Status: Former Smoker Chew tobacco use (# tins/day): No Frequency of alcohol use: None Drug Abuse: Marijuana Family History: DM, Hyperlipidemia, Hypertension Patient has suicidal ideation: No Patient has homicidal ideation: No - Past Medical History Cardiac Medical History: Reports: Hx Hypercholesterolemia, Hx Hypertension - Taken off medication for same. Denies: Hx Atrial Fibrillation, Hx Congestive Heart Failure, Hx Coronary Artery Disease, Hx Heart Attack, Hx Pulmonary Embolism Pulmonary Medical History: Denies: Hx Asthma, Hx COPD, Hx Sleep Apnea Neurological Medical History: Denies: Hx Seizures Endocrine Medical History: Reports: Hx Diabetes Mellitus Type 1, Hx Diabetes Mellitus Type 2. Denies: Hx Hyperthyroidism, Hx Hypothyroidism Renal/ Medical History: Denies: Hx Peritoneal Dialysis GI Medical History: Reports: Hx Gastroesophageal Reflux Disease, Hx Pancreatitis. Denies: Hx Cirrhosis, Hx Hepatitis Musculoskeletal Medical History: Denies Hx Arthritis Psychiatric Medical History: Reports: Hx Depression Infectious Medical History: Denies: Hx Hepatitis Past Surgical History: Reports: Hx Orthopedic Surgery - back. Denies: Hx Appendectomy, Hx Cholecystectomy, Hx Tonsillectomy - Immunizations Hx Diphtheria, Pertussis, Tetanus Vaccination: Yes Hx Pneumococcal Vaccination: 11/09/11 Review of Systems - Review of Systems Constitutional: Fever EENT: No symptoms reported Cardiovascular: No symptoms reported Respiratory: No symptoms reported Gastrointestinal: See HPI Genitourinary: No symptoms reported Male Genitourinary: No symptoms reported Musculoskeletal: No symptoms reported Skin: See HPI Hematologic/Lymphatic: No symptoms reported Neurological/Psychological: No symptoms reported -: Yes All other systems reviewed and negative Physical Exam - Vital signs Vitals: Temp Pulse Resp BP Pulse Ox 99.1 F 116 H 14 123/88 H 97 08/26/17 15:48 08/26/17 15:48 08/26/17 15:48 08/26/17 15:48 08/26/17 15:48 Interpretation: Tachycardic - General General appearance: Alert In distress: Mild - HEENT Head: Normocephalic, Atraumatic Eyes: Normal Pupils: PERRL - Respiratory Respiratory status: No respiratory distress Chest status: Nontender Breath sounds: Normal Chest palpation: Normal - Cardiovascular Rhythm: Regular, Tachycardia Heart sounds: Normal auscultation - Abdominal Inspection: Normal Distension: No distension Bowel sounds: Normal Tenderness: Tender - Diffuse - Back Back: Normal - Extremities General upper extremity: Other - Multiple scabbed lesions to bilateral lower extremities Hand: Tender, Swelling - Right hand with erythema, tenderness and swelling starting at the first digit distally radiating to the dorsal surface of the hand over the metacarpals, 2+ radial pulses, distal sensation and motor is intact, pain with palpation of the erythematous swollen portion of the hand as well as passive range of motion of the digits - Neurological Neuro grossly intact: Yes Cognition: Normal Orientation: AAOx4 Unruly Coma Scale Eye Opening: Spontaneous Fellows Coma Scale Verbal: Oriented Unruly Coma Scale Motor: Obeys Commands Unruly Coma Scale Total: 15 Speech: Normal Motor strength normal: LUE, RUE, LLE, RLE Sensory: Normal - Skin Skin Temperature: Warm Skin Moisture: Dry Course - Re-evaluation Re-evalutation: 08/26/17 18:17 Patient with significant leukocytosis of 19,000, evidence of cellulitis to his right hand, mild decreased bicarbonate and elevated blood sugar but no signs of diabetic ketoacidosis as there is no anion gap and a blood gas is within normal , however patient started on antibiotics and discussed with the hospitalist team who agrees to admit for further evaluation and treatment, patient in agreement with this plan as well, stable at time of transfer of care - Vital Signs Vital signs: Temp Pulse Resp BP Pulse Ox 99.1 F 116 H 14 123/88 H 97 08/26/17 15:48 08/26/17 15:48 08/26/17 15:48 08/26/17 15:48 08/26/17 15:48 - Laboratory Result Diagrams: 08/26/17 16:12 08/26/17 16:12 Laboratory results interpreted by me: 08/26/17 08/26/17 08/26/17 15:57 16:12 16:12 WBC 19.3 H RBC 4.32 L Hgb 10.3 L Hct 32.3 L MCV 75 L MCH 23.9 L MCHC 31.9 L RDW 19.2 H Plt Count 476 H Seg Neutrophils % 87.7 H Lymphocytes % 5.8 L Absolute Neutrophils 16.9 H ESR 109 H Sodium 136.0 L Chloride 97 L Carbon Dioxide 20 L BUN 22 H Glucose 293 H POC Glucose 273 H Direct Bilirubin 0.5 H ALT 19 L Alkaline Phosphatase 166 H Total Protein 8.7 H - Diagnostic Test Radiology reviewed: Image reviewed, Reports reviewed Discharge - Discharge Clinical Impression: Cellulitis of right hand, Hyperglycemia Nausea and vomiting Qualifiers: Vomiting type: unspecified Vomiting Intractability: non-intractable Qualified Code(s): R11.2 - Nausea with vomiting, unspecified Condition: Fair Disposition: ADMITTED INPATIENT Admitting Provider: Hospitalist Unit Admitted: Medical Floor
[2017-08-26] MEDS ORDERED: DEXTROSE 40% GEL 15 GM TUBE PO PRN ×2 (17:41)
[2017-08-26] MEDS ORDERED: GLUCAGON,HUMAN RECOMB 1 MG INJ IM PRN (17:41)
[2017-08-26] MEDS ORDERED: DEXTROSE 50%-WATER 25 GM/50 ML DISP.SYRIN IV PRN ×2 (17:41)
[2017-08-26] MEDS ORDERED: VANCOMYCIN HCL 0 MG in DEXTROSE 5%-WATER 250 ML IV NR (17:45)
--- NOTE | 2017-08-26 18:01 | PDOC H&P ---
History of Present Illness History of Present Illness: CHESTER MCKEON is a 37 year old back male patient with past medical history of recurrent DKA and multiple hospitalization, hypertension, hyperlipidemia, GERD, chronic pancreatitis, neuropathy, and uncontrolled diabetes mellitus since was 3 days swelling, pain, tenderness, and redness of his right forearm over 3 days duration. 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 Patient also complains of nausea and vomiting. No change in his bowel habits or urinary complaints. Has associated fever and chills. No headache dizziness or blurry vision. His initial blood workup shows leukocytosis of 19,000 and mild hyperglycemia with a normal anion gap. His hand x-ray is compatible cellulitis without signs of osteomyelitis. Past Medical History Cardiac Medical History: Reports: Hyperlipidema, Hypertension - Taken off medication for same. Denies: Atrial Fibrillation, Congestive Heart Failure, Coronary Artery Disease, Myocardial Infarction, Pulmonary Embolism Pulmonary Medical History: Denies: Asthma, Chronic Obstructive Pulmonary Disease (COPD), Sleep Apnea Neurological Medical History: Denies: Seizures Endocrine Medical History: Reports: Diabetes Mellitus Type 1, Diabetes Mellitus Type 2 Denies: Hyperthyroidism, Hypothyroidism GI Medical History: Reports: Gastroesophageal Reflux Disease Denies: Cirrhosis, Hepatitis Musculoskeltal Medical History: Denies: Arthritis Psychiatric Medical History: Reports: Depression Hematology: Reports: Anemia - Chronic illnesses Past Surgical History Past Surgical History: Reports: Orthopedic Surgery - back Denies: Appendectomy, Cholecystectomy, Tonsillectomy Social History Smoking Status: Current Every Day Smoker Frequency of Alcohol Use: None Hx Recreational Drug Use: Yes Drugs: Marijuana Hx Prescription Drug Abuse: Yes - Advance Directive Resuscitation Status: Full Code Family History Family History: DM, Hyperlipidemia, Hypertension Parental Family History Reviewed: Yes Children Family History Reviewed: Yes Sibling(s) Family History Reviewed.: Yes Medication/Allergy Allergies/Adverse Reactions: ondansetron [From Zofran (as hydrochloride)] Allergy (Verified 08/26/17 15:45) Review of Systems Constitutional: PRESENT: as per HPI Eyes: ABSENT: visual disturbances Cardiovascular: ABSENT: chest pain, dyspnea on exertion, edema, orthropnea, palpitations Respiratory: ABSENT: cough, hemoptysis Gastrointestinal: ABSENT: abdominal pain, constipation, diarrhea, hematemesis, hematochezia, nausea, vomiting Neurological: ABSENT: abnormal gait, abnormal speech, confusion, dizziness, focal weakness, syncope Physical Exam Vital Signs: Temp Pulse Resp BP Pulse Ox 99.1 F 116 H 14 123/88 H 97 08/26/17 15:48 08/26/17 15:48 08/26/17 15:48 08/26/17 15:48 08/26/17 15:48 Intake & Output 08/25/17 08/26/17 08/27/17 06:59 06:59 06:59 Weight 63.6 kg General appearance: PRESENT: no acute distress, well-developed, well-nourished Head exam: PRESENT: atraumatic, normocephalic Eye exam: PRESENT: conjunctiva pink, EOMI, PERRLA. ABSENT: scleral icterus Ear exam: PRESENT: normal external ear exam Mouth exam: PRESENT: moist, tongue midline Neck exam: ABSENT: carotid bruit, JVD, lymphadenopathy, thyromegaly Respiratory exam: PRESENT: clear to auscultation alfonso. ABSENT: rales, rhonchi, wheezes Cardiovascular exam: PRESENT: RRR. ABSENT: diastolic murmur, rubs, systolic murmur Pulses: PRESENT: normal dorsalis pedis pul Vascular exam: PRESENT: normal capillary refill GI/Abdominal exam: PRESENT: normal bowel sounds, soft. ABSENT: distended, guarding, mass, organolmegaly, rebound, tenderness Rectal exam: PRESENT: deferred Extremities exam: PRESENT: full ROM, other - The pertinent finding is tender erythematous swelling of the right upper. There is no fluctuation.. ABSENT: calf tenderness, clubbing, pedal edema Neurological exam: PRESENT: alert, awake, oriented to person, oriented to place , oriented to time, oriented to situation, CN II-XII grossly intact. ABSENT: motor sensory deficit Psychiatric exam: PRESENT: appropriate affect, normal mood. ABSENT: homicidal ideation, suicidal ideation Skin exam: PRESENT: dry, intact, warm. ABSENT: cyanosis, rash Results Laboratory Results: 08/26/17 16:12 08/26/17 16:12 08/26/17 08/26/17 08/26/17 16:12 16:12 16:12 WBC 19.3 H RBC 4.32 L Hgb 10.3 L Hct 32.3 L MCV 75 L MCH 23.9 L MCHC 31.9 L RDW 19.2 H Plt Count 476 H Seg Neutrophils % 87.7 H Lymphocytes % 5.8 L Monocytes % 5.9 Eosinophils % 0.1 Basophils % 0.5 Absolute Neutrophils 16.9 H Absolute Lymphocytes 1.1 Absolute Monocytes 1.1 Absolute Eosinophils 0.0 Absolute Basophils 0.1 VBG pH VBG pCO2 VBG HCO3 VBG Base Excess Sodium 136.0 L Potassium 4.7 Chloride 97 L Carbon Dioxide 20 L Anion Gap 19 BUN 22 H Creatinine 1.06 Est GFR ( Amer) > 60 Est GFR (Non-Af Amer) > 60 Glucose 293 H Lactic Acid 1.2 Calcium 10.1 Total Bilirubin 0.6 AST 23 ALT 19 L Alkaline Phosphatase 166 H Total Protein 8.7 H Albumin 4.2 Lipase 96.1 08/26/17 16:12 WBC RBC Hgb Hct MCV MCH MCHC RDW Plt Count Seg Neutrophils % Lymphocytes % Monocytes % Eosinophils % Basophils % Absolute Neutrophils Absolute Lymphocytes Absolute Monocytes Absolute Eosinophils Absolute Basophils VBG pH 7.37 VBG pCO2 38.0 VBG HCO3 21.6 VBG Base Excess -3.2 Sodium Potassium Chloride Carbon Dioxide Anion Gap BUN Creatinine Est GFR ( Amer) Est GFR (Non-Af Amer) Glucose Lactic Acid Calcium Total Bilirubin AST ALT Alkaline Phosphatase Total Protein Albumin Lipase Impressions: Hand X-Ray 08/26/17 15:57 IMPRESSION: No radiographic evidence of osteomyelitis. No gas within soft tissue or other soft tissue abnormality. Assessment & Plan - Diagnosis (1) Cellulitis of right hand Is this a current diagnosis for this admission?: Yes Plan: Patient is empirically started on cefepime and vancomycin since patient is diabetic and history of recurrent DKA and uncontrolled diabetes mellitus. Will be de-escalate his antibiotics based on his clinical response and culture results. (2) Chronic pancreatitis Is this a current diagnosis for this admission?: Yes Plan: Patient has been started his home pancrease. (3) Diabetic neuropathy Qualifiers: Diabetes mellitus type: type 1 Is this a current diagnosis for this admission?: Yes Plan: Patient has been started his home gabapentin and Lyrica. (4) Type 1 diabetes mellitus Is this a current diagnosis for this admission?: Yes Plan: Patient has been started on home Lantus 35 units subcu nightly and sliding scale. - Time Time Spent: 30 to 50 Minutes - Inpatient Certification Medical Necessity: Significant Comorbidiites Make Outpatient Treatment Too Risky , Need for IV Antibiotics
[2017-08-26] MEDS ORDERED: ENOXAPARIN SODIUM INJ 40 MG/0.4 ML DISP.SYRIN SUBCUT ONE (21:00)
[2017-08-26] MEDS ORDERED: LIPASE/PROTEASE/AMYLASE 1 CAP CAPSULE.DR PO ONE (21:00)
[2017-08-26] MEDS ORDERED: INSULIN GLARGINE,HUM.REC.ANLOG 1,000 UNIT/10 ML UNIT SUBCUT SCH (22:00)
[2017-08-26] MEDS ORDERED: INSULIN GLARGINE,HUM.REC.ANLOG 300 UNIT/3 ML INSULN.PEN SUBCUT SCH (22:00)
[2017-08-26] MEDS: PREGABALIN 75 MG CAPSULE PO SCH (22:28)
[2017-08-26] MEDS: OXYCODONE-ACETAMINOPHEN 5-325 MG TABLET PO PRN (23:18)
[2017-08-26] MEDS: METOCLOPRAMIDE HCL 10 MG TABLET PO SCH (23:18)
[2017-08-26] MEDS: FAMOTIDINE 20 MG TABLET PO SCH (23:18)
[2017-08-26] MEDS: GABAPENTIN 300 MG CAPSULE PO SCH (23:19)
[2017-08-26] MEDS: INSULIN LISPRO 100 UNIT/ML 3 ML VIAL SUBCUT PRN (23:20)
[2017-08-27] MEDS: VANCOMYCIN HCL 750 MG in DEXTROSE 5%-WATER 250 ML IV SCH ×3 (00:06→22:43)
[2017-08-27] MEDS ORDERED: CEFEPIME 2 GM/D5W RTU 2 GM/50 ML RTUPB IV ONE (01:12)
[2017-08-27] MEDS: CEFEPIME 2 GM/D5W RTU 2 GM/50 ML RTUPB IV SCH ×3 (02:08→17:16)
[2017-08-27 04:38] LABS: ABSOLUTE BASOPHILS # (AUTO) 0.2 10^3/uL (0.0-0.2); ABSOLUTE LYMPHOCYTES (AUTO) 1.4 10^3/uL (0.5-4.7); ABSOLUTE MONOCYTES (AUTO) 1.4 10^3/uL (0.1-1.4); ABSOLUTE NEUT (AUTO) 15.7 10^3/uL (1.7-8.2); BASOPHILS % (AUTO) 0.8 % (0-2); HEMATOCRIT 29.5 % (37.9-51.0); HEMOGLOBIN 9.4 g/dL (13.5-17.0); LYMPHOCYTES % (AUTO) 7.4 % (13-45); MEAN CORPUSCULAR HEMOGLOBIN 23.7 pg (27.0-33.4); MEAN CORPUSCULAR HGB CONC 31.8 g/dL (32.0-36.0); MEAN CORPUSCULAR VOLUME 75 fl (80-97); MONOCYTES % (AUTO) 7.5 % (3-13); PLATELET COUNT 384 10^3/uL (150-450); RED BLOOD COUNT 3.96 10^6/uL (4.35-5.55); RED CELL DISTRIBUTION WIDTH 19.1 % (11.5-14.0); SEGMENTED NEUTROPHILS % (AUTO) 84.3 % (42-78); TOTAL CELLS COUNTED % (AUTO) 100 %; WHITE BLOOD COUNT 18.6 10^3/uL (4.0-10.5)
[2017-08-27 04:53] LABS: ANION GAP 13 (5-19); BLOOD UREA NITROGEN 20 mg/dL (7-20); CARBON DIOXIDE 20 mmol/L (22-30); CHLORIDE 104 mmol/L (98-107); GLUCOSE 191 mg/dL (75-110); POTASSIUM 4.2 mmol/L (3.6-5.0); SODIUM 136.6 mmol/L (137-145)
[2017-08-27] MEDS: OXYCODONE-ACETAMINOPHEN 5-325 MG TABLET PO PRN ×4 (05:23→20:50)
[2017-08-27 06:51] LABS: APPEARANCE,URINE SLIGHTLY-CLOUDY; BILIRUBIN,URINE NEGATIVE (NEGATIVE); COLOR,URINE YELLOW; GLUCOSE, URINE >=500 mg/dL (NEGATIVE); KETONES,URINE 20 mg/dL (NEGATIVE); LEUKOCYTE ESTERASE,URINE NEGATIVE (NEGATIVE); NITRITE,URINE NEGATIVE (NEGATIVE); PROTEIN,URINE 100 mg/dL (NEGATIVE); URINE SPECIFIC GRAVITY 1.023; UROBILINOGEN,URINE NEGATIVE mg/dL (<2.0)
[2017-08-27] MEDS: LIPASE/PROTEASE/AMYLASE 1 CAP CAPSULE.DR PO SCH ×2 (08:30→16:33)
[2017-08-27] MEDS: METOCLOPRAMIDE HCL 10 MG TABLET PO SCH ×4 (08:31→22:43)
[2017-08-27] MEDS: INSULIN LISPRO 100 UNIT/ML 3 ML VIAL SUBCUT PRN ×4 (08:35→23:17)
[2017-08-27] MEDS: FAMOTIDINE 20 MG TABLET PO SCH ×2 (12:25→22:43)
[2017-08-27] MEDS: ENOXAPARIN SODIUM INJ 40 MG/0.4 ML DISP.SYRIN SUBCUT SCH (12:25)
[2017-08-27] MEDS: GABAPENTIN 300 MG CAPSULE PO SCH ×2 (12:25→22:43)
[2017-08-27] MEDS: PREGABALIN 75 MG CAPSULE PO SCH ×2 (12:26→17:16)
[2017-08-27] MEDS ORDERED: INSULIN LISPRO 100 UNIT/ML 3 ML VIAL SUBCUT ONE (12:45)
--- NOTE | 2017-08-27 16:27 | PDOC PROGRESS REPORT ---
Subjective Progress Note for:: 08/27/17 Subjective:: This is 37 years old black male patient with past medical history of recurrent DKA, chronic pancreatitis and polysubstance abuse (was right forearm swelling which is compatible with cellulitis no sign of osteomyelitis on his x-ray. Patient has been started empirically on cefepime and vancomycin. Patient reports the tenderness and swelling is subsiding and his white cell count is trending down slightly. Reason For Visit: CELLULITIS OF RIGHT ARM LEUKOCYTOSIS Physical Exam Vital Signs: Temp Pulse Resp BP Pulse Ox 97.5 F 94 16 125/79 98 08/27/17 12:00 08/27/17 12:00 08/27/17 12:00 08/27/17 12:00 08/27/17 12:00 Intake & Output 08/26/17 08/27/17 08/28/17 06:59 06:59 06:59 Intake Total 200 Balance 200 Weight 58.8 kg General appearance: PRESENT: no acute distress Head exam: PRESENT: atraumatic Eye exam: PRESENT: conjunctiva pink Mouth exam: PRESENT: moist Neck exam: ABSENT: carotid bruit, JVD, lymphadenopathy, thyromegaly Respiratory exam: PRESENT: clear to auscultation alfonso. ABSENT: rales, rhonchi, wheezes Cardiovascular exam: PRESENT: RRR. ABSENT: diastolic murmur, rubs, systolic murmur GI/Abdominal exam: PRESENT: normal bowel sounds, soft. ABSENT: distended, guarding, mass, organolmegaly, rebound, tenderness Extremities exam: PRESENT: other - Right arm swelling and tenderness is subsiding Neurological exam: PRESENT: alert, awake, oriented to time, oriented to situation Psychiatric exam: PRESENT: normal mood Results Laboratory Results: 08/27/17 04:09 08/27/17 04:09 08/27/17 08/27/17 08/27/17 04:09 04:09 06:20 WBC 18.6 H RBC 3.96 L Hgb 9.4 L Hct 29.5 L MCV 75 L MCH 23.7 L MCHC 31.8 L RDW 19.1 H Plt Count 384 Seg Neutrophils % 84.3 H Lymphocytes % 7.4 L Monocytes % 7.5 Eosinophils % 0.0 Basophils % 0.8 Absolute Neutrophils 15.7 H Absolute Lymphocytes 1.4 Absolute Monocytes 1.4 Absolute Eosinophils 0.0 Absolute Basophils 0.2 Sodium 136.6 L Potassium 4.2 Chloride 104 Carbon Dioxide 20 L Anion Gap 13 BUN 20 Creatinine 0.72 Est GFR ( Amer) > 60 Est GFR (Non-Af Amer) > 60 Glucose 191 H Calcium 9.0 Urine Color YELLOW Urine Appearance SLIGHTLY-CLOUDY Urine pH 5.0 Ur Specific Rankin 1.023 Urine Protein 100 H Urine Glucose (UA) >=500 H Urine Ketones 20 H Urine Blood SMALL H Urine Nitrite NEGATIVE Ur Leukocyte Esterase NEGATIVE Urine WBC (Auto) 1 Urine RBC (Auto) 1 Impressions: Hand X-Ray 08/26/17 15:57 IMPRESSION: No radiographic evidence of osteomyelitis. No gas within soft tissue or other soft tissue abnormality. Assessment & Plan - Diagnosis (1) Cellulitis of right hand Is this a current diagnosis for this admission?: Yes Plan: Blood culture results pending. Continue cefepime and vancomycin and later will tailor his antibiotics based on his clinical response and culture and sensitivity results. (2) Chronic pancreatitis Is this a current diagnosis for this admission?: Yes Plan: Patient has been started his home pancrease. (3) Diabetic neuropathy Qualifiers: Diabetes mellitus type: type 1 Is this a current diagnosis for this admission?: Yes Plan: Patient has been started his home gabapentin and Lyrica. (4) Type 1 diabetes mellitus Is this a current diagnosis for this admission?: Yes Plan: Patient has an episode of hypoglycemia with blood sugar of 439 is given 20 units of Humalog.
[2017-08-27] MEDS ORDERED: VANCOMYCIN HCL 750 MG in DEXTROSE 5%-WATER 250 ML IV SCH (18:00)
[2017-08-27] MEDS: INSULIN GLARGINE,HUM.REC.ANLOG 300 UNIT/3 ML INSULN.PEN SUBCUT SCH (22:44)
[2017-08-28] MEDS: INSULIN LISPRO 100 UNIT/ML 3 ML VIAL SUBCUT PRN ×6 (01:02→22:09)
[2017-08-28] MEDS: OXYCODONE-ACETAMINOPHEN 5-325 MG TABLET PO PRN ×6 (01:59→22:09)
[2017-08-28] MEDS: CEFEPIME 2 GM/D5W RTU 2 GM/50 ML RTUPB IV SCH ×2 (06:07→17:26)
[2017-08-28 07:21] LABS: ABSOLUTE BASOPHILS # (AUTO) 0.2 10^3/uL (0.0-0.2); ABSOLUTE EOSINOPHILS # (AUTO) 0.1 10^3/uL (0.0-0.6); ABSOLUTE LYMPHOCYTES (AUTO) 1.4 10^3/uL (0.5-4.7); ABSOLUTE MONOCYTES (AUTO) 1.2 10^3/uL (0.1-1.4); ABSOLUTE NEUT (AUTO) 11.8 10^3/uL (1.7-8.2); BASOPHILS % (AUTO) 1.2 % (0-2); EOSINOPHILS % (AUTO) 0.9 % (0-6); HEMATOCRIT 30.2 % (37.9-51.0); HEMOGLOBIN 9.5 g/dL (13.5-17.0); LYMPHOCYTES % (AUTO) 9.2 % (13-45); MEAN CORPUSCULAR HEMOGLOBIN 23.7 pg (27.0-33.4); MEAN CORPUSCULAR HGB CONC 31.4 g/dL (32.0-36.0); MEAN CORPUSCULAR VOLUME 76 fl (80-97); PLATELET COUNT 392 10^3/uL (150-450); SEGMENTED NEUTROPHILS % (AUTO) 80.7 % (42-78); TOTAL CELLS COUNTED % (AUTO) 100 %; WHITE BLOOD COUNT 14.6 10^3/uL (4.0-10.5)
[2017-08-28 07:43] LABS: ANION GAP 14 (5-19); BLOOD UREA NITROGEN 19 mg/dL (7-20); CALCIUM 9.8 mg/dL (8.4-10.2); CARBON DIOXIDE 19 mmol/L (22-30); CHLORIDE 107 mmol/L (98-107); GLUCOSE 95 mg/dL (75-110); POTASSIUM 4.3 mmol/L (3.6-5.0); SODIUM 139.5 mmol/L (137-145)
[2017-08-28] MEDS: LIPASE/PROTEASE/AMYLASE 1 CAP CAPSULE.DR PO SCH ×2 (08:28→17:26)
[2017-08-28] MEDS: METOCLOPRAMIDE HCL 10 MG TABLET PO SCH ×4 (08:28→21:44)
[2017-08-28] MEDS: INSULIN GLARGINE,HUM.REC.ANLOG 300 UNIT/3 ML INSULN.PEN SUBCUT SCH ×2 (08:28→22:09)
[2017-08-28] MEDS: ENOXAPARIN SODIUM INJ 40 MG/0.4 ML DISP.SYRIN SUBCUT SCH (10:13)
[2017-08-28] MEDS: PREGABALIN 75 MG CAPSULE PO SCH ×2 (10:14→17:26)
[2017-08-28] MEDS: FAMOTIDINE 20 MG TABLET PO SCH ×2 (10:14→21:44)
[2017-08-28] MEDS: VANCOMYCIN HCL 750 MG in DEXTROSE 5%-WATER 250 ML IV SCH ×2 (10:14→21:44)
[2017-08-28] MEDS: GABAPENTIN 300 MG CAPSULE PO SCH ×2 (10:14→21:44)
[2017-08-28 11:11] LABS: VANCOMYCIN,TROUGH 7.5 ug/mL (5.0-20.0)
[2017-08-28] MEDS ORDERED: INSULIN LISPRO 100 UNIT/ML 3 ML VIAL SUBCUT ONE (17:30)
--- NOTE | 2017-08-28 18:18 | PDOC PROGRESS REPORT ---
Subjective Progress Note for:: 08/28/17 Subjective:: I seen patient sitting up in bed and enjoying his lunch. Clinically he is doing well except for intermittent hyperglycemia. His white cell count is trending further. Dr. Yoon is consulted to evaluate the patient. Reason For Visit: CELLULITIS OF RIGHT ARM LEUKOCYTOSIS Physical Exam Vital Signs: Temp Pulse Resp BP Pulse Ox 98.4 F 102 H 14 120/85 100 08/28/17 16:00 08/28/17 16:00 08/28/17 16:00 08/28/17 16:00 08/28/17 16:00 Intake & Output 08/27/17 08/28/17 08/29/17 06:59 06:59 06:59 Intake Total 200 2922 250 Balance 200 2922 250 Weight 58.8 kg 62.4 kg Results Laboratory Results: 08/28/17 06:22 08/28/17 06:22 08/28/17 08/28/17 06:22 06:22 WBC 14.6 H RBC 4.00 L Hgb 9.5 L Hct 30.2 L MCV 76 L MCH 23.7 L MCHC 31.4 L RDW 19.0 H Plt Count 392 Seg Neutrophils % 80.7 H Lymphocytes % 9.2 L Monocytes % 8.0 Eosinophils % 0.9 Basophils % 1.2 Absolute Neutrophils 11.8 H Absolute Lymphocytes 1.4 Absolute Monocytes 1.2 Absolute Eosinophils 0.1 Absolute Basophils 0.2 Sodium 139.5 Potassium 4.3 Chloride 107 Carbon Dioxide 19 L Anion Gap 14 BUN 19 Creatinine 1.01 Est GFR ( Amer) > 60 Est GFR (Non-Af Amer) > 60 Glucose 95 Calcium 9.8 Impressions: Hand X-Ray 08/26/17 15:57 IMPRESSION: No radiographic evidence of osteomyelitis. No gas within soft tissue or other soft tissue abnormality. Assessment & Plan - Diagnosis (1) Cellulitis of right hand Is this a current diagnosis for this admission?: Yes Plan: Continue cefepime and vancomycin. Blood culture results pending. (2) Chronic pancreatitis Is this a current diagnosis for this admission?: Yes Plan: Patient has been started his home pancrease. (3) Diabetic neuropathy Qualifiers: Diabetes mellitus type: type 1 Is this a current diagnosis for this admission?: Yes Plan: Patient has been started his home gabapentin and Lyrica. (4) Type 1 diabetes mellitus Is this a current diagnosis for this admission?: Yes Plan: Patient has an episode of hypoglycemia with blood sugar of 439 is given 20 units of Humalog.
[2017-08-28] MEDS ORDERED: DEXTROSE 5%-NORMAL SALINE 1,000 ML IV PRN (21:36)
--- NOTE | 2017-08-28 22:33 | PDOC CONSULTATION ---
Consultation Consult Date: 08/28/17 Consult reason:: right hand abscess History of Present Illness Admission Date/PCP: 08/26/17 17:37 History of Present Illness: CHESTER MCKEON is a 37 year old male who is a known diabetic injurednright hand while at work about 8 days ago. The right thumb got swollen and painful about 3 days ago and was admitted thru the ED 2 days ago for cellulitis right hand. Past Medical History Cardiac Medical History: Reports: Hyperlipidema, Hypertension - Taken off medication for same. Denies: Atrial Fibrillation, Congestive Heart Failure, Coronary Artery Disease, Myocardial Infarction, Pulmonary Embolism Pulmonary Medical History: Denies: Asthma, Chronic Obstructive Pulmonary Disease (COPD), Sleep Apnea Neurological Medical History: Denies: Seizures Endocrine Medical History: Reports: Diabetes Mellitus Type 1, Diabetes Mellitus Type 2 Denies: Hyperthyroidism, Hypothyroidism GI Medical History: Reports: Gastroesophageal Reflux Disease Denies: Cirrhosis, Hepatitis Musculoskeltal Medical History: Denies: Arthritis Psychiatric Medical History: Reports: Depression Hematology: Reports: Anemia - Chronic illnesses Past Surgical History Past Surgical History: Reports: Orthopedic Surgery - back Denies: Appendectomy, Cholecystectomy, Tonsillectomy Social History Smoking Status: Current Every Day Smoker Frequency of Alcohol Use: None Hx Recreational Drug Use: Yes Drugs: Marijuana Hx Prescription Drug Abuse: Yes - Advance Directive Resuscitation Status: Full Code Family History Family History: DM, Hyperlipidemia, Hypertension Parental Family History Reviewed: Yes - father with DM Children Family History Reviewed: No Sibling(s) Family History Reviewed.: No Medication/Allergy Home Medications: Insulin Glargine,Hum.rec.anlog [Lantus Insulin 100 Unit/1 ml 10 ml] 35 units SQ DAILY 08/26/17 Insulin Lispro [Humalog Insulin (Lispro) 100 unit/mL] See Protocol SQ ACHS 08/26 Allergies/Adverse Reactions: ondansetron [From Zofran (as hydrochloride)] Allergy (Verified 08/26/17 15:45) Review of Systems Constitutional: PRESENT: other - feels cold in his hospital room Eyes: PRESENT: other - no visual/hearing changes Cardiovascular: PRESENT: other - no cough/chest pains Gastrointestinal: PRESENT: other - no pains Genitourinary: PRESENT: other - no dysuria Integumentary: PRESENT: other - right thumb and thenar areas red,swollen and tender. Unable to flex right thumb Starting to have tingling sensation rest of hand fingertips but no redness or swelling/tenderness Physical Exam Vital Signs: Temp Pulse Resp BP Pulse Ox 99.2 F 109 H 16 104/61 98 08/28/17 19:41 08/28/17 19:41 08/28/17 19:41 08/28/17 19:41 08/28/17 19:41 Intake & Output 08/27/17 08/28/17 08/29/17 06:59 06:59 06:59 Intake Total 200 2922 2620 Balance 200 2922 2620 Weight 58.8 kg 62.4 kg General appearance: PRESENT: no acute distress Head exam: PRESENT: atraumatic Eye exam: PRESENT: conjunctiva pink Mouth exam: PRESENT: moist Neck exam: PRESENT: full ROM Respiratory exam: PRESENT: clear to auscultation alfonso Cardiovascular exam: PRESENT: RRR Pulses: PRESENT: normal radial pulses Vascular exam: PRESENT: normal capillary refill GI/Abdominal exam: PRESENT: soft Rectal exam: PRESENT: deferred Extremities exam: PRESENT: tenderness - right thumb with erythematous swelling including thenar and posterior areas. Unable to flex swollen right thumb Musculoskeletal exam: PRESENT: ambulatory Neurological exam: PRESENT: alert, oriented to person, oriented to place, oriented to time, oriented to situation Psychiatric exam: PRESENT: appropriate affect Skin exam: PRESENT: erythema, warm, other - right thumb/thenar areas Results Laboratory Results: 08/28/17 06:22 08/28/17 06:22 08/28/17 08/28/17 06:22 06:22 WBC 14.6 H RBC 4.00 L Hgb 9.5 L Hct 30.2 L MCV 76 L MCH 23.7 L MCHC 31.4 L RDW 19.0 H Plt Count 392 Seg Neutrophils % 80.7 H Lymphocytes % 9.2 L Monocytes % 8.0 Eosinophils % 0.9 Basophils % 1.2 Absolute Neutrophils 11.8 H Absolute Lymphocytes 1.4 Absolute Monocytes 1.2 Absolute Eosinophils 0.1 Absolute Basophils 0.2 Sodium 139.5 Potassium 4.3 Chloride 107 Carbon Dioxide 19 L Anion Gap 14 BUN 19 Creatinine 1.01 Est GFR ( Amer) > 60 Est GFR (Non-Af Amer) > 60 Glucose 95 Calcium 9.8 Impressions: Hand X-Ray 08/26/17 15:57 IMPRESSION: No radiographic evidence of osteomyelitis. No gas within soft tissue or other soft tissue abnormality. Assessment & Plan - Diagnosis (1) Abscess right thenar,posterior site membreno Is this a current diagnosis for this admission?: Yes - Time Time Spent: 30 to 50 Minutes - Plan Summary Plan Summary: For I&D right thumb,thenar areas in am Continue IV antibiotics
--- NOTE | 2017-08-28 23:20 | PDOC PROGRESS REPORT ---
Subjective Progress Note for:: 08/28/17 Reason For Visit: CELLULITIS OF RIGHT ARM LEUKOCYTOSIS Physical Exam Vital Signs: Temp Pulse Resp BP Pulse Ox 99.2 F 109 H 16 104/61 98 08/28/17 19:41 08/28/17 19:41 08/28/17 19:41 08/28/17 19:41 08/28/17 19:41 Intake & Output 08/27/17 08/28/17 08/29/17 06:59 06:59 06:59 Intake Total 200 2922 2620 Balance 200 2922 2620 Weight 58.8 kg 62.4 kg Results Laboratory Results: 08/28/17 06:22 08/28/17 06:22 08/28/17 08/28/17 06:22 06:22 WBC 14.6 H RBC 4.00 L Hgb 9.5 L Hct 30.2 L MCV 76 L MCH 23.7 L MCHC 31.4 L RDW 19.0 H Plt Count 392 Seg Neutrophils % 80.7 H Lymphocytes % 9.2 L Monocytes % 8.0 Eosinophils % 0.9 Basophils % 1.2 Absolute Neutrophils 11.8 H Absolute Lymphocytes 1.4 Absolute Monocytes 1.2 Absolute Eosinophils 0.1 Absolute Basophils 0.2 Sodium 139.5 Potassium 4.3 Chloride 107 Carbon Dioxide 19 L Anion Gap 14 BUN 19 Creatinine 1.01 Est GFR ( Amer) > 60 Est GFR (Non-Af Amer) > 60 Glucose 95 Calcium 9.8 Impressions: Hand X-Ray 08/26/17 15:57 IMPRESSION: No radiographic evidence of osteomyelitis. No gas within soft tissue or other soft tissue abnormality. Assessment & Plan - Diagnosis (1) Abscess right thenar,posterior site membreno Is this a current diagnosis for this admission?: Yes - Plan Summary Plan Summary: Addendum. Just consulted Ortho c/o DR Ramos who suggesting getting an MRI of the hand to have a better idea of where incisions can be better placed.Will delay the OR until MRI hopefully in am and can do I&D around noon time.
[2017-08-29] MEDS: INSULIN LISPRO 100 UNIT/ML 3 ML VIAL SUBCUT PRN ×3 (00:08→21:48)
[2017-08-29] MEDS: NORMAL SALINE 1000 ML 1,000 ML IV PRN ×2 (01:11→21:37)
[2017-08-29] MEDS: OXYCODONE-ACETAMINOPHEN 5-325 MG TABLET PO PRN ×4 (02:27→21:29)
[2017-08-29] MEDS: CEFEPIME 2 GM/D5W RTU 2 GM/50 ML RTUPB IV SCH ×2 (05:09→17:06)
[2017-08-29 05:42] LABS: ABSOLUTE BASOPHILS # (AUTO) 0.1 10^3/uL (0.0-0.2); ABSOLUTE EOSINOPHILS # (AUTO) 0.1 10^3/uL (0.0-0.6); ABSOLUTE LYMPHOCYTES (AUTO) 1.6 10^3/uL (0.5-4.7); ABSOLUTE MONOCYTES (AUTO) 1.1 10^3/uL (0.1-1.4); ABSOLUTE NEUT (AUTO) 7.4 10^3/uL (1.7-8.2); BASOPHILS % (AUTO) 1.4 % (0-2); EOSINOPHILS % (AUTO) 1.3 % (0-6); LYMPHOCYTES % (AUTO) 15.1 % (13-45); MEAN CORPUSCULAR VOLUME 75 fl (80-97); MONOCYTES % (AUTO) 10.3 % (3-13); PLATELET COUNT 373 10^3/uL (150-450); RED BLOOD COUNT 3.74 10^6/uL (4.35-5.55); RED CELL DISTRIBUTION WIDTH 19.2 % (11.5-14.0); SEGMENTED NEUTROPHILS % (AUTO) 71.9 % (42-78); TOTAL CELLS COUNTED % (AUTO) 100 %; WHITE BLOOD COUNT 10.3 10^3/uL (4.0-10.5)
[2017-08-29 06:13] LABS: ANION GAP 14 (5-19); BLOOD UREA NITROGEN 16 mg/dL (7-20); CARBON DIOXIDE 17 mmol/L (22-30); CHLORIDE 111 mmol/L (98-107); GLUCOSE 41 mg/dL (75-110); POTASSIUM 4.3 mmol/L (3.6-5.0); SODIUM 141.5 mmol/L (137-145)
[2017-08-29] MEDS: INSULIN LISPRO 100 UNIT/ML 3 ML VIAL SUBCUT SCH ×3 (07:24→15:43)
[2017-08-29] MEDS: INSULIN GLARGINE,HUM.REC.ANLOG 300 UNIT/3 ML INSULN.PEN SUBCUT SCH ×2 (07:24→21:29)
[2017-08-29] MEDS: METOCLOPRAMIDE HCL 10 MG TABLET PO SCH ×4 (07:37→21:30)
[2017-08-29] MEDS: LIPASE/PROTEASE/AMYLASE 1 CAP CAPSULE.DR PO SCH ×2 (07:37→15:47)
[2017-08-29] MEDS: ENOXAPARIN SODIUM INJ 40 MG/0.4 ML DISP.SYRIN SUBCUT SCH (09:04)
[2017-08-29] MEDS: GABAPENTIN 300 MG CAPSULE PO SCH ×2 (09:04→21:29)
[2017-08-29] MEDS: PREGABALIN 75 MG CAPSULE PO SCH ×2 (09:04→17:06)
[2017-08-29] MEDS: FAMOTIDINE 20 MG TABLET PO SCH ×2 (09:04→21:29)
[2017-08-29] MEDS: VANCOMYCIN HCL 750 MG in DEXTROSE 5%-WATER 250 ML IV SCH ×2 (09:57→17:07)
[2017-08-29 10:57] LABS: VANCOMYCIN,TROUGH 8.5 ug/mL (5.0-20.0)
--- NOTE | 2017-08-29 15:27 | RADIOLOGY REPORT (SQ) ---
EXAM DESCRIPTION: MRI RT UPPER EXTREMITY COMBO COMPLETED DATE/TIME: 08/29/2017 1:58 pm REASON FOR STUDY: R/O tenosynovitis right hand COMPARISON: None. CONTRAST TYPE AND DOSE: 10 mL Prohance. RENAL FUNCTION: None required. The patient is less than 50 years old. TECHNIQUE: Multi planar multisequence MRI of the right wrist was performed before and after the unev entful administration of IV contrast. FINDINGS: There is marked increased T2 signal throughout the thenar arm musculature. The overall ar chitecture of the thenar musculature is significantly altered. There are some areas of confluent T2 signal within the thenar eminence musculature. Near the base of the thumb this extends to the immedi ate subcutaneous soft tissues. This appearance extends through the web space into the dorsal aspect of the thumb. These areas of increased T2 signal also demonstrate enhancement. The increased signal extends from the level of the radiocarpal joint to the level of the metacarpophalangeal joints. The hypo thenar musculature is spared. There is increased T2 signal present within the flexor tendon compartment at the level of the radioca rpal joint. No definite enhancement is noted within the compartment. The flexor tendons themselves demonstrate normal signal. There is mildly increased T2 signal noted within the extensor pollicis lo ngus tendon as it traverses the affected area previously described. Bone marrow signal is normal. Limited evaluation of the vessels and nerves is grossly unremarkable. IMPRESSION: Abnormal architecture of the thenar musculature with increased T2 signal as well as enha ncement, most consistent with pyomyositis, given patient's history. This extends from the palmar nakita face to the dorsal surface of the thenar musculature. There are areas of confluence within the thena r musculature consistent with superimposed abscess. Increased fluid signal within the flexor tendon compartment. This may represent some tenosynovitis a nd possible spread of infection into the flexor tendon compartment. COMMENT: Pertinent positive or negative findings of the imaging study reported as a CRITICAL EXAM owen WAITE MD at15:20 on 08/29/2017. Category of Critical Exam: 1 TECHNICAL DOCUMENTATION: JOB ID: [id number] [employer]- All Rights Reserved Reading location - IP/workstation name: [email or web address]
--- NOTE | 2017-08-29 15:38 | PDOC PROGRESS REPORT ---
Subjective Progress Note for:: 08/29/17 Subjective:: 08/29/17 Reason For Visit: CELLULITIS OF RIGHT ARM LEUKOCYTOSIS Physical Exam Vital Signs: Temp Pulse Resp BP Pulse Ox 99.0 F 101 H 16 120/87 H 100 08/29/17 12:00 08/29/17 12:00 08/29/17 12:00 08/29/17 12:00 08/29/17 12:00 Intake & Output 08/28/17 08/29/17 08/30/17 06:59 06:59 06:59 Intake Total 2922 3494 Balance 2922 3494 Weight 62.4 kg 63.3 kg Exam: Right hand/thumb essentially no change from last night. Pains not any worse. Results Laboratory Results: 08/29/17 04:48 08/29/17 09:40 08/29/17 08/29/17 08/29/17 04:48 04:48 09:40 WBC 10.3 RBC 3.74 L Hgb 9.0 L Hct 28.0 L MCV 75 L MCH 24.0 L MCHC 32.0 RDW 19.2 H Plt Count 373 Seg Neutrophils % 71.9 Lymphocytes % 15.1 Monocytes % 10.3 Eosinophils % 1.3 Basophils % 1.4 Absolute Neutrophils 7.4 Absolute Lymphocytes 1.6 Absolute Monocytes 1.1 Absolute Eosinophils 0.1 Absolute Basophils 0.1 Sodium 141.5 Potassium 4.3 Chloride 111 H Carbon Dioxide 17 L Anion Gap 14 BUN 16 Creatinine 0.96 0.82 Est GFR ( Amer) > 60 > 60 Est GFR (Non-Af Amer) > 60 > 60 Glucose 41 L Calcium 9.0 Impressions: Hand X-Ray 08/26/17 15:57 IMPRESSION: No radiographic evidence of osteomyelitis. No gas within soft tissue or other soft tissue abnormality. Upper Extremity MRI 08/28/17 00:00 IMPRESSION: Abnormal architecture of the thenar musculature with increased T2 signal as well as enhancement, most consistent with pyomyositis, given patient' s history. This extends from the palmar surface to the dorsal surface of the thenar musculature. There are areas of confluence within the thenar musculature consistent with superimposed abscess. Increased fluid signal within the flexor tendon compartment. This may represent some tenosynovitis and possible spread of infection into the flexor tendon compartment. Assessment & Plan - Diagnosis (1) Abscess right thenar,posterior site membreno Is this a current diagnosis for this admission?: Yes - Time Time Spent with patient: 15-24 minutes - Plan Summary Plan Summary: Had MRI right hand which showed a small abscess but the thenar muscle is edematious and infected. D/W Ortho c/o Dr Ramos who said to put a consult to Dr Long who willsee patient in am. Will keep NPO for possible OR tomorrow C/O Dr Dowling. Continue IV antibioics Hospitalist Dr Garcia informed
--- NOTE | 2017-08-29 18:49 | PDOC PROGRESS REPORT ---
Subjective Progress Note for:: 08/29/17 Subjective:: Patient seen at bedside. He is awake alert oriented. His fever has subsided his hand swelling is relatively increased. I consulted Dr. Yoon who evaluated the patient and he thought patient needs orthopedic intervention. In hysterotomy consulted Dr. Long who wants the patient to have MRI of the right forearm. Reason For Visit: CELLULITIS OF RIGHT ARM LEUKOCYTOSIS Physical Exam Vital Signs: Temp Pulse Resp BP Pulse Ox 98.3 F 103 H 14 111/76 100 08/29/17 16:00 08/29/17 16:00 08/29/17 16:00 08/29/17 16:00 08/29/17 16:00 Intake & Output 08/28/17 08/29/17 08/30/17 06:59 06:59 06:59 Intake Total 2922 3494 1400 Balance 2922 3494 1400 Weight 62.4 kg 63.3 kg Results Laboratory Results: 08/29/17 04:48 08/29/17 09:40 08/29/17 08/29/17 08/29/17 04:48 04:48 09:40 WBC 10.3 RBC 3.74 L Hgb 9.0 L Hct 28.0 L MCV 75 L MCH 24.0 L MCHC 32.0 RDW 19.2 H Plt Count 373 Seg Neutrophils % 71.9 Lymphocytes % 15.1 Monocytes % 10.3 Eosinophils % 1.3 Basophils % 1.4 Absolute Neutrophils 7.4 Absolute Lymphocytes 1.6 Absolute Monocytes 1.1 Absolute Eosinophils 0.1 Absolute Basophils 0.1 Sodium 141.5 Potassium 4.3 Chloride 111 H Carbon Dioxide 17 L Anion Gap 14 BUN 16 Creatinine 0.96 0.82 Est GFR ( Amer) > 60 > 60 Est GFR (Non-Af Amer) > 60 > 60 Glucose 41 L Calcium 9.0 Impressions: Hand X-Ray 08/26/17 15:57 IMPRESSION: No radiographic evidence of osteomyelitis. No gas within soft tissue or other soft tissue abnormality. Upper Extremity MRI 08/28/17 00:00 IMPRESSION: Abnormal architecture of the thenar musculature with increased T2 signal as well as enhancement, most consistent with pyomyositis, given patient' s history. This extends from the palmar surface to the dorsal surface of the thenar musculature. There are areas of confluence within the thenar musculature consistent with superimposed abscess. Increased fluid signal within the flexor tendon compartment. This may represent some tenosynovitis and possible spread of infection into the flexor tendon compartment. Assessment & Plan - Diagnosis (1) Leukocytosis Is this a current diagnosis for this admission?: Yes Plan: Has resolved (2) Cellulitis of right hand Is this a current diagnosis for this admission?: Yes Plan: Continue current regimen (3) Chronic pancreatitis Is this a current diagnosis for this admission?: Yes Plan: Patient has been started his home pancrease. (4) Diabetic neuropathy Qualifiers: Diabetes mellitus type: type 1 Is this a current diagnosis for this admission?: Yes Plan: Patient has been started his home gabapentin and Lyrica. (5) Type 1 diabetes mellitus Is this a current diagnosis for this admission?: Yes Plan: Patient has an episode of hypoglycemia with blood sugar of 439 is given 20 units of Humalog.
[2017-08-29] MEDS ORDERED: INSULIN LISPRO 100 UNIT/ML 3 ML VIAL SUBCUT ONE (22:00)
--- NOTE | 2017-08-29 23:06 | EKG REPORT ---
SEVERITY:- BORDERLINE ECG - SINUS RHYTHM BORDERLINE T ABNORMALITIES, ANT-LAT LEADS : Confirmed by: Ruchi King 29-Aug-2017 23:05:55
[2017-08-30] MEDS: OXYCODONE-ACETAMINOPHEN 5-325 MG TABLET PO PRN ×5 (02:16→20:20)
[2017-08-30] MEDS: VANCOMYCIN HCL 750 MG in DEXTROSE 5%-WATER 250 ML IV SCH ×4 (02:16→22:51)
[2017-08-30] MEDS: CEFEPIME 2 GM/D5W RTU 2 GM/50 ML RTUPB IV SCH ×2 (05:54→20:21)
--- NOTE | 2017-08-30 06:54 | PDOC CONSULTATION ---
Consultation Consult Date: 08/30/17 Consult reason:: Right hand abscess History of Present Illness Admission Date/PCP: 08/26/17 17:37 History of Present Illness: CHESTER MCKEON is a 37 year old male with brittle diabetes who sustained superficial blisters to the right upper extremity using a spackling knife. He subsequently developed right hand pain and swelling consistent with a soft tissue infection. He presented to emergency room and was admitted with a right thenar abscess. Past Medical History Cardiac Medical History: Reports: Hyperlipidema, Hypertension - Taken off medication for same. Denies: Atrial Fibrillation, Congestive Heart Failure, Coronary Artery Disease, Myocardial Infarction, Pulmonary Embolism Pulmonary Medical History: Denies: Asthma, Chronic Obstructive Pulmonary Disease (COPD), Sleep Apnea Neurological Medical History: Denies: Seizures Endocrine Medical History: Reports: Diabetes Mellitus Type 1, Diabetes Mellitus Type 2 Denies: Hyperthyroidism, Hypothyroidism GI Medical History: Reports: Gastroesophageal Reflux Disease Denies: Cirrhosis, Hepatitis Musculoskeltal Medical History: Denies: Arthritis Psychiatric Medical History: Reports: Depression Hematology: Reports: Anemia - Chronic illnesses Past Surgical History Past Surgical History: Reports: Orthopedic Surgery - back, left long finger PIP disarticulation Denies: Appendectomy, Cholecystectomy, Tonsillectomy Social History Information Source: Patient, [facility] Office, [facility] Records Smoking Status: Current Every Day Smoker Frequency of Alcohol Use: None Hx Recreational Drug Use: Yes Drugs: Marijuana Hx Prescription Drug Abuse: Yes - Advance Directive Resuscitation Status: Full Code Family History Family History: DM, Hyperlipidemia, Hypertension Parental Family History Reviewed: No Children Family History Reviewed: No Sibling(s) Family History Reviewed.: No Medication/Allergy Home Medications: Insulin Glargine,Hum.rec.anlog [Lantus Insulin 100 Unit/1 ml 10 ml] 35 units SQ DAILY 08/26/17 Insulin Lispro [Humalog Insulin (Lispro) 100 unit/mL] See Protocol SQ ACHS 08/26 Allergies/Adverse Reactions: ondansetron [From Zofran (as hydrochloride)] Allergy (Verified 08/26/17 15:45) Review of Systems All systems: as per PMH Physical Exam Vital Signs: Temp Pulse Resp BP Pulse Ox 36.7 C 117 H 19 121/88 H 99 08/29/17 21:07 08/29/17 21:07 08/29/17 21:07 08/29/17 21:07 08/29/17 21:07 Intake & Output 08/28/17 08/29/17 08/30/17 06:59 06:59 06:59 Intake Total 2922 5817 4798 Balance 2922 3498 3348 Weight 62.4 kg 63.3 kg 60.2 kg General appearance: PRESENT: mild distress Head exam: PRESENT: normocephalic Respiratory exam: PRESENT: unlabored Cardiovascular exam: PRESENT: RRR Vascular exam: PRESENT: normal capillary refill GI/Abdominal exam: PRESENT: soft Rectal exam: PRESENT: deferred Extremities exam: PRESENT: other - Right hand demonstrates erythema, induration , tenderness over the volar surface of the thenar compartment. Swelling extends out over the thumb IP joint. There is brisk capillary refill to the thumb subungual region Neurological exam: PRESENT: alert, awake, oriented to person, oriented to place , oriented to time, oriented to situation. ABSENT: motor sensory deficit Psychiatric exam: PRESENT: appropriate affect, normal mood. ABSENT: homicidal ideation, suicidal ideation Skin exam: PRESENT: dry, intact, warm. ABSENT: cyanosis, rash Results Laboratory Results: 08/29/17 04:48 08/29/17 09:40 08/29/17 09:40 Creatinine 0.82 Est GFR ( Amer) > 60 Est GFR (Non-Af Amer) > 60 Impressions: Hand X-Ray 08/26/17 15:57 IMPRESSION: No radiographic evidence of osteomyelitis. No gas within soft tissue or other soft tissue abnormality. Upper Extremity MRI 08/28/17 00:00 IMPRESSION: Abnormal architecture of the thenar musculature with increased T2 signal as well as enhancement, most consistent with pyomyositis, given patient' s history. This extends from the palmar surface to the dorsal surface of the thenar musculature. There are areas of confluence within the thenar musculature consistent with superimposed abscess. Increased fluid signal within the flexor tendon compartment. This may represent some tenosynovitis and possible spread of infection into the flexor tendon compartment. Status: Imported from PACS Assessment & Plan - Diagnosis (1) Abscess right thenar,posterior site membreno Is this a current diagnosis for this admission?: Yes Plan: Plan for I&D and drain placement under choice anesthesia today - Time Time Spent: 50 to 70 Minutes Anticipated discharge: Home with Homehealth Within: within 24 hours
[2017-08-30] MEDS ORDERED: LIDOCAINE 2% INJ-PF (20 MG/ML) 10 ML AMPUL ONE (08:24)
[2017-08-30] MEDS ORDERED: FENTANYL CITRATE INJ/PF 100 MCG/2 ML AMPUL ONE ×2 (08:25)
[2017-08-30] MEDS ORDERED: MIDAZOLAM 2 MG/2 ML INJ ONE (08:25)
[2017-08-30] MEDS ORDERED: DEXAMETHASONE SOD PHOSPHATE INJ 4 MG/1 ML VIAL ONE (08:25)
[2017-08-30] MEDS ORDERED: ACETAMINOPHEN 0 MG/0 ML RTUPB IV ONE (08:25)
[2017-08-30] MEDS ORDERED: PROPOFOL INJ 200 MG/20 ML VIAL IV ONE ×2 (08:25→08:49)
[2017-08-30] MEDS ORDERED: ONDANSETRON HCL INJ/PF 4 MG/2 ML SDV ONE (08:26)
[2017-08-30] MEDS ORDERED: BACITRACIN INJ 50,000 UNIT VIAL ONE (08:28)
[2017-08-30] MEDS ORDERED: DEXMEDETOMIDINE INJ 80 MCG/20 ML VIAL IV ONE (08:49)
[2017-08-30] MEDS ORDERED: BUPIVACAINE HCL 0.5 % INJ/PF 30 ML SDV ONE (08:58)
[2017-08-30] MEDS ORDERED: PROMETHAZINE HCL INJ 25 MG/1 ML VIAL IV PRN ×2 (09:18)
[2017-08-30] MEDS ORDERED: FENTANYL CITRATE INJ/PF 100 MCG/2 ML AMPUL IV PRN ×3 (09:18)
[2017-08-30] MEDS ORDERED: MORPHINE SULFATE 10 MG/ML INJ IV PRN ×2 (09:18→10:01)
[2017-08-30] MEDS ORDERED: MEPERIDINE HCL/PF INJ 25 MG/1 ML DISP.SYRIN IV PRN (09:18)
[2017-08-30] MEDS ORDERED: DIPHENHYDRAMINE HCL 50 MG/ML VIAL IV PRN (09:18)
[2017-08-30] MEDS ORDERED: OXYCODONE-ACETAMINOPHEN 5-325 MG TABLET PO PRN ×2 (09:18)
--- NOTE | 2017-08-30 09:27 | Operative Report ---
Operative Report DATE OF SURGERY: 08/30/17 PREOPERATIVE DIAGNOSIS: Right thenar abscess OPERATION: I&D right hand abscess SURGEON: CHELLE PASCUAL ANESTHESIA: GA TISSUE REMOVED OR ALTERED: Cultures 2 to microbiology ESTIMATED BLOOD LOSS: Minimal PROCEDURE: With the patient supine on the operating table the right hand is being prepped and the spontaneous drainage from an eschar in the first webspace. This is cultured. The prepping and draping continued. Using that eschar in the webspace a hemostat is used to enlarge the opening which leads to the elaboration of the significant amount of purulent material. This is also cultured. Blunt dissection was used to dissect through the webspace and down into the flexor tendon sheath of the thumb. There is a soft tissue mass over the dorsum of the first extensor compartment. This is sampled using a needle which returns purulent material. Subsequently opened with a 15 blade. A tunnel was made from this abscess through the thenar eminence to connect to the holes. A Oneyda drain is placed between them. The wound is bulb irrigated. It is then loosely closed with nylon securing the Oneyda drain to the skin. A sterile compressive dressing is applied. The patient's return to the PACU in satisfactory condition.
[2017-08-30] MEDS ORDERED: RINGERS SOLUTION,LACTATED 1,000 ML IV PRN (10:00)
[2017-08-30] MEDS ORDERED: OXYCODONE HCL IR 5 MG TABLET PO PRN (10:01)
[2017-08-30] MEDS: INSULIN GLARGINE,HUM.REC.ANLOG 300 UNIT/3 ML INSULN.PEN SUBCUT SCH ×2 (11:21→22:27)
[2017-08-30] MEDS: INSULIN LISPRO 100 UNIT/ML 3 ML VIAL SUBCUT SCH ×3 (11:26→16:53)
[2017-08-30] MEDS: FAMOTIDINE 20 MG TABLET PO SCH ×2 (11:41→22:25)
[2017-08-30] MEDS: METOCLOPRAMIDE HCL 10 MG TABLET PO SCH ×4 (11:43→22:25)
[2017-08-30] MEDS: GABAPENTIN 300 MG CAPSULE PO SCH ×2 (11:45→22:27)
[2017-08-30] MEDS: PREGABALIN 75 MG CAPSULE PO SCH ×2 (11:45→20:20)
[2017-08-30] MEDS: ENOXAPARIN SODIUM INJ 40 MG/0.4 ML DISP.SYRIN SUBCUT SCH (11:50)
[2017-08-30] MEDS: INSULIN LISPRO 100 UNIT/ML 3 ML VIAL SUBCUT PRN ×3 (11:55→22:29)
[2017-08-30] MEDS: LIPASE/PROTEASE/AMYLASE 1 CAP CAPSULE.DR PO SCH ×2 (12:03→16:39)
[2017-08-30] MEDS ORDERED: PHENYLEPHRINE HCL INJ/PF 10 MG/1 ML SDV ONE (14:32)
[2017-08-30] MEDS ORDERED: NORMAL SALINE 10 ML SDV (AFTER EACH USE) IV PRN (16:22)
--- NOTE | 2017-08-30 16:22 | RADIOLOGY REPORT (SQ) ---
EXAM DESCRIPTION: PICC INSERTION; FLUORO/CV PLACEMENT; U/S GUIDE FOR VASCULAR ACCESS COMPLETED DATE/TIME: 08/30/2017 4:04 pm REASON FOR STUDY: no peripheral access; IV ACCESS COMPARISON: None. FLUOROSCOPY TIME: 0.2 minutes 1 images saved to PACS. TECHNIQUE: Fluoroscopic and ultrasound guided PICC placement. LIMITATIONS: None. PROCEDURE: After written consent and assessment were obtained, the patient was brought into the fluo roscopy room and place supine on the table. Ultrasound evaluation of potential access sites were perf ormed. After successfully identifying a patent left basilic vein, the left arm was prepped and draped in a sterile fashion along with the ultrasound probe. The entry site was anesthetized with 1% lidoca ine. A 21 gauge 7 cm needle was advanced through the skin and into the basilic vein under live ultras ound guidance. An ultrasound image was saved to PACS confirming access site. A .018 guide wire was then inserted through the needle and into the venous system. The needle was the removed and an 11 xiomara de scalpel was used to make a 1cm skin incision. A 5 fr peel-away sheath was advanced over the wire and into the venous system. A measurement was then made using the existing wire and live fluoroscopic guidance. The wire was then removed and the trimmed. The PICC was advanced through the peel-away she ath and into the venous system. The peel-away sheath was removed and the catheter was adhered to the patients arm with a stat lock. The catheter was then aspirated and flushed and a sterile bandage was placed over the access site. A fluoroscopic spot image was saved to PACS confirming the catheter tip within the superior vena cava. IMPRESSION: SUCCESSFUL PLACEMENT OF A 5 FR DUAL LUMEN 38 CM PICC IN THE LEFT BASILIC VEIN. COMMENT: Patient medication list reviewed: Yes- Quality ID# 130:Eligible professional attests to doc umenting in the medical record they obtained, updated, or reviewed the patient's current medications. . Quality ID 145: Final reports for procedures using fluoroscopy that document radiation exposure hue bruno, or exposure time and number of fluorographic images (if radiation exposure indices are not avail able) Quality ID #76: The patient was prepped and draped using maximum sterile barrier technique including cap, mask, sterile gown, sterile gloves, a large sterile sheet, hand hygiene, and 2% Chlorhexidine fo r cutaneous antisepsis. When ultrasound is used, sterile ultrasound techniques are followed requiring sterile gel and sterile probes. TECHNICAL DOCUMENTATION: JOB ID: [id number] [employer]- All Rights Reserved rev Reading location - IP/workstation name: [facility]
--- NOTE | 2017-08-30 19:57 | PDOC PROGRESS REPORT ---
Subjective Progress Note for:: 08/30/17 Subjective:: It has been doing well. This morning patient was taken to the OR by Dr. Long who performed incision and drainage and total debridement of his right arm. Pus was drained from this right arm and subjected to for culture and sensitivity. His white cell count has normalized. Reason For Visit: CELLULITIS OF RIGHT ARM LEUKOCYTOSIS Physical Exam Vital Signs: Temp Pulse Resp BP Pulse Ox 98.0 F 110 H 16 130/92 H 99 08/30/17 18:05 08/30/17 18:05 08/30/17 18:05 08/30/17 18:05 08/30/17 18:05 Intake & Output 08/29/17 08/30/17 08/31/17 06:59 06:59 06:59 Intake Total 3494 3349 1880 Output Total 300 Balance 3494 3349 1580 Weight 63.3 kg 60.2 kg Results Laboratory Results: 08/29/17 04:48 08/29/17 09:40 Impressions: Hand X-Ray 08/26/17 15:57 IMPRESSION: No radiographic evidence of osteomyelitis. No gas within soft tissue or other soft tissue abnormality. Upper Extremity MRI 08/28/17 00:00 IMPRESSION: Abnormal architecture of the thenar musculature with increased T2 signal as well as enhancement, most consistent with pyomyositis, given patient' s history. This extends from the palmar surface to the dorsal surface of the thenar musculature. There are areas of confluence within the thenar musculature consistent with superimposed abscess. Increased fluid signal within the flexor tendon compartment. This may represent some tenosynovitis and possible spread of infection into the flexor tendon compartment. Guidance Fluoroscopy 08/30/17 00:00 IMPRESSION: SUCCESSFUL PLACEMENT OF A 5 FR DUAL LUMEN 38 CM PICC IN THE LEFT BASILIC VEIN. Interventional Vascular Procedure 08/30/17 00:00 IMPRESSION: SUCCESSFUL PLACEMENT OF A 5 FR DUAL LUMEN 38 CM PICC IN THE LEFT BASILIC VEIN. PICC Line Insertion 08/30/17 00:00 IMPRESSION: SUCCESSFUL PLACEMENT OF A 5 FR DUAL LUMEN 38 CM PICC IN THE LEFT BASILIC VEIN. Assessment & Plan - Diagnosis (1) Leukocytosis Is this a current diagnosis for this admission?: Yes Plan: Resolved (2) Cellulitis of right hand Is this a current diagnosis for this admission?: Yes Plan: Continue cefepime and vancomycin. (3) Chronic pancreatitis Is this a current diagnosis for this admission?: Yes Plan: Patient has been started his home pancrease. (4) Diabetic neuropathy Qualifiers: Diabetes mellitus type: type 1 Is this a current diagnosis for this admission?: Yes Plan: Patient has been started his home gabapentin and Lyrica. (5) Type 1 diabetes mellitus Is this a current diagnosis for this admission?: Yes Plan: Patient has an episode of hypoglycemia with blood sugar of 439 is given 20 units of Humalog.
[2017-08-30] MEDS ORDERED: INSULIN LISPRO 100 UNIT/ML 3 ML VIAL SUBCUT ONE (22:15)
[2017-08-30] MEDS: NORMAL SALINE 10 ML SDV (SCHEDULED) IV SCH (22:27)
[2017-08-31] MEDS: INSULIN LISPRO 100 UNIT/ML 3 ML VIAL SUBCUT PRN ×4 (00:10→23:33)
[2017-08-31] MEDS ORDERED: INSULIN LISPRO 100 UNIT/ML 3 ML VIAL SUBCUT ONE ×4 (01:45→22:45)
[2017-08-31] MEDS: OXYCODONE-ACETAMINOPHEN 5-325 MG TABLET PO PRN ×5 (04:43→22:07)
[2017-08-31] MEDS ORDERED: CEFEPIME 2 GM/D5W RTU 2 GM/50 ML RTUPB IV ONE (05:11)
[2017-08-31 05:23] LABS: HEMATOCRIT 26.2 % (37.9-51.0); HEMOGLOBIN 8.2 g/dL (13.5-17.0); MEAN CORPUSCULAR HEMOGLOBIN 23.6 pg (27.0-33.4); MEAN CORPUSCULAR HGB CONC 31.3 g/dL (32.0-36.0); MEAN CORPUSCULAR VOLUME 76 fl (80-97); PLATELET COUNT 372 10^3/uL (150-450); RED BLOOD COUNT 3.47 10^6/uL (4.35-5.55); RED CELL DISTRIBUTION WIDTH 19.5 % (11.5-14.0); WHITE BLOOD COUNT 11.8 10^3/uL (4.0-10.5)
[2017-08-31] MEDS: CEFEPIME 2 GM/D5W RTU 2 GM/50 ML RTUPB IV SCH ×2 (05:33→17:37)
[2017-08-31 05:53] LABS: ANION GAP 13 (5-19); BLOOD UREA NITROGEN 14 mg/dL (7-20); CALCIUM 9.1 mg/dL (8.4-10.2); CARBON DIOXIDE 17 mmol/L (22-30); CHLORIDE 109 mmol/L (98-107); GLUCOSE 313 mg/dL (75-110); POTASSIUM 4.3 mmol/L (3.6-5.0); SODIUM 139.3 mmol/L (137-145)
[2017-08-31] MEDS: VANCOMYCIN HCL 750 MG in DEXTROSE 5%-WATER 250 ML IV SCH ×3 (06:34→23:26)
--- NOTE | 2017-08-31 06:43 | PDOC PROGRESS REPORT ---
Subjective Progress Note for:: 08/31/17 Reason For Visit: CELLULITIS OF RIGHT ARM LEUKOCYTOSIS 37-year-old black male with brittle diabetes now postop day 1 status post I&D of her right thenar eminence abscess. Microbiology is pending. Patient complaining of throbbing pain. Physical Exam Vital Signs: Temp Pulse Resp BP Pulse Ox 36.7 C 71 18 120/71 98 08/31/17 00:51 08/31/17 00:51 08/31/17 00:51 08/31/17 00:51 08/31/17 00:51 Intake & Output 08/29/17 08/30/17 08/31/17 06:59 06:59 06:59 Intake Total 3494 3349 6120 Output Total 300 Balance 3494 3349 5820 Weight 63.3 kg 60.2 kg 59.4 kg General appearance: PRESENT: no acute distress, mild distress Head exam: PRESENT: normocephalic Respiratory exam: PRESENT: unlabored Cardiovascular exam: PRESENT: RRR Vascular exam: PRESENT: normal capillary refill Extremities exam: PRESENT: other - Right upper extremity closed and dressing. Minimal edema over the digits. Sensory examination is intact to light touch. There is brisk capillary refill. Results Laboratory Results: 08/31/17 04:30 08/31/17 04:30 08/31/17 08/31/17 04:30 04:30 WBC 11.8 H RBC 3.47 L Hgb 8.2 L Hct 26.2 L MCV 76 L MCH 23.6 L MCHC 31.3 L RDW 19.5 H Plt Count 372 Sodium 139.3 Potassium 4.3 Chloride 109 H Carbon Dioxide 17 L Anion Gap 13 BUN 14 Creatinine 0.87 Est GFR ( Amer) > 60 Est GFR (Non-Af Amer) > 60 Glucose 313 H Calcium 9.1 Impressions: Hand X-Ray 08/26/17 15:57 IMPRESSION: No radiographic evidence of osteomyelitis. No gas within soft tissue or other soft tissue abnormality. Upper Extremity MRI 08/28/17 00:00 IMPRESSION: Abnormal architecture of the thenar musculature with increased T2 signal as well as enhancement, most consistent with pyomyositis, given patient' s history. This extends from the palmar surface to the dorsal surface of the thenar musculature. There are areas of confluence within the thenar musculature consistent with superimposed abscess. Increased fluid signal within the flexor tendon compartment. This may represent some tenosynovitis and possible spread of infection into the flexor tendon compartment. Guidance Fluoroscopy 08/30/17 00:00 IMPRESSION: SUCCESSFUL PLACEMENT OF A 5 FR DUAL LUMEN 38 CM PICC IN THE LEFT BASILIC VEIN. Interventional Vascular Procedure 08/30/17 00:00 IMPRESSION: SUCCESSFUL PLACEMENT OF A 5 FR DUAL LUMEN 38 CM PICC IN THE LEFT BASILIC VEIN. PICC Line Insertion 08/30/17 00:00 IMPRESSION: SUCCESSFUL PLACEMENT OF A 5 FR DUAL LUMEN 38 CM PICC IN THE LEFT BASILIC VEIN. Status: Imported from PACS Assessment & Plan - Diagnosis (1) Abscess right thenar,posterior site membreno Is this a current diagnosis for this admission?: Yes Plan: Continue empiric antibiotics and await results of microbiology. Anticipate dressing change tomorrow. - Time Time Spent with patient: 15-24 minutes Anticipated discharge: Home with Homehealth Within: Other
[2017-08-31] MEDS: METOCLOPRAMIDE HCL 10 MG TABLET PO SCH ×4 (08:25→22:08)
[2017-08-31] MEDS: LIPASE/PROTEASE/AMYLASE 1 CAP CAPSULE.DR PO SCH ×2 (08:25→16:27)
[2017-08-31] MEDS: INSULIN LISPRO 100 UNIT/ML 3 ML VIAL SUBCUT SCH ×3 (08:27→16:28)
[2017-08-31] MEDS: INSULIN GLARGINE,HUM.REC.ANLOG 300 UNIT/3 ML INSULN.PEN SUBCUT SCH ×2 (08:32→22:17)
[2017-08-31] MEDS: GABAPENTIN 300 MG CAPSULE PO SCH ×2 (09:24→22:08)
[2017-08-31] MEDS: PREGABALIN 75 MG CAPSULE PO SCH ×2 (09:24→17:38)
[2017-08-31] MEDS: ENOXAPARIN SODIUM INJ 40 MG/0.4 ML DISP.SYRIN SUBCUT SCH ×2 (09:25→09:46)
[2017-08-31] MEDS: NORMAL SALINE 10 ML SDV (SCHEDULED) IV SCH ×2 (09:30→23:49)
[2017-08-31] MEDS: FAMOTIDINE 20 MG TABLET PO SCH ×2 (11:46→22:08)
[2017-08-31 15:23] LABS: VANCOMYCIN,TROUGH 14.7 ug/mL (5.0-20.0)
--- NOTE | 2017-08-31 19:08 | PDOC PROGRESS REPORT ---
Subjective Progress Note for:: 08/31/17 Subjective:: No new complaints. Patient scheduled for changing the dress. Reason For Visit: CELLULITIS OF RIGHT ARM LEUKOCYTOSIS Physical Exam Vital Signs: Temp Pulse Resp BP Pulse Ox 98.0 F 102 H 18 119/74 100 08/31/17 16:05 08/31/17 16:05 08/31/17 16:05 08/31/17 16:05 08/31/17 16:05 Intake & Output 08/30/17 08/31/17 09/01/17 06:59 06:59 06:59 Intake Total 3349 7770 1570 Output Total 300 Balance 3349 7470 1570 Weight 60.2 kg 59.4 kg General appearance: PRESENT: no acute distress, well-developed, well-nourished Head exam: PRESENT: atraumatic, normocephalic Eye exam: PRESENT: conjunctiva pink, EOMI, PERRLA. ABSENT: scleral icterus Ear exam: PRESENT: normal external ear exam Mouth exam: PRESENT: moist, tongue midline Neck exam: ABSENT: carotid bruit, JVD, lymphadenopathy, thyromegaly Respiratory exam: PRESENT: clear to auscultation alfonso. ABSENT: rales, rhonchi, wheezes Cardiovascular exam: PRESENT: RRR. ABSENT: diastolic murmur, rubs, systolic murmur Pulses: PRESENT: normal dorsalis pedis pul Vascular exam: PRESENT: normal capillary refill GI/Abdominal exam: PRESENT: normal bowel sounds, soft. ABSENT: distended, guarding, mass, organolmegaly, rebound, tenderness Rectal exam: PRESENT: deferred Extremities exam: PRESENT: full ROM, other - Right arm dressed. ABSENT: calf tenderness, clubbing, pedal edema Neurological exam: PRESENT: alert, awake, oriented to person, oriented to place , oriented to time, oriented to situation, CN II-XII grossly intact. ABSENT: motor sensory deficit Psychiatric exam: PRESENT: appropriate affect, normal mood. ABSENT: homicidal ideation, suicidal ideation Skin exam: PRESENT: dry, intact, warm. ABSENT: cyanosis, rash Results Laboratory Results: 08/31/17 04:30 08/31/17 04:30 08/31/17 08/31/17 04:30 04:30 WBC 11.8 H RBC 3.47 L Hgb 8.2 L Hct 26.2 L MCV 76 L MCH 23.6 L MCHC 31.3 L RDW 19.5 H Plt Count 372 Sodium 139.3 Potassium 4.3 Chloride 109 H Carbon Dioxide 17 L Anion Gap 13 BUN 14 Creatinine 0.87 Est GFR ( Amer) > 60 Est GFR (Non-Af Amer) > 60 Glucose 313 H Calcium 9.1 08/26/17 18:41 Blood Blood Culture - Final NO GROWTH IN 5 DAYS Impressions: Hand X-Ray 08/26/17 15:57 IMPRESSION: No radiographic evidence of osteomyelitis. No gas within soft tissue or other soft tissue abnormality. Upper Extremity MRI 08/28/17 00:00 IMPRESSION: Abnormal architecture of the thenar musculature with increased T2 signal as well as enhancement, most consistent with pyomyositis, given patient' s history. This extends from the palmar surface to the dorsal surface of the thenar musculature. There are areas of confluence within the thenar musculature consistent with superimposed abscess. Increased fluid signal within the flexor tendon compartment. This may represent some tenosynovitis and possible spread of infection into the flexor tendon compartment. Guidance Fluoroscopy 08/30/17 00:00 IMPRESSION: SUCCESSFUL PLACEMENT OF A 5 FR DUAL LUMEN 38 CM PICC IN THE LEFT BASILIC VEIN. Interventional Vascular Procedure 08/30/17 00:00 IMPRESSION: SUCCESSFUL PLACEMENT OF A 5 FR DUAL LUMEN 38 CM PICC IN THE LEFT BASILIC VEIN. PICC Line Insertion 08/30/17 00:00 IMPRESSION: SUCCESSFUL PLACEMENT OF A 5 FR DUAL LUMEN 38 CM PICC IN THE LEFT BASILIC VEIN. Assessment & Plan - Diagnosis (1) Leukocytosis Is this a current diagnosis for this admission?: Yes Plan: Resolved (2) Cellulitis of right hand Is this a current diagnosis for this admission?: Yes Plan: Continue cefepime and vancomycin. (3) Chronic pancreatitis Is this a current diagnosis for this admission?: Yes Plan: Patient has been started his home pancrease. (4) Diabetic neuropathy Qualifiers: Diabetes mellitus type: type 1 Is this a current diagnosis for this admission?: Yes Plan: Patient has been started his home gabapentin and Lyrica. (5) Type 1 diabetes mellitus Is this a current diagnosis for this admission?: Yes Plan: Patient has an episode of hypoglycemia with blood sugar of 439 is given 20 units of Humalog.
[2017-09-01] MEDS ORDERED: INSULIN LISPRO 100 UNIT/ML 3 ML VIAL SUBCUT ONE ×2 (01:15→14:30)
[2017-09-01] MEDS: INSULIN LISPRO 100 UNIT/ML 3 ML VIAL SUBCUT PRN ×5 (01:18→22:57)
[2017-09-01] MEDS: OXYCODONE-ACETAMINOPHEN 5-325 MG TABLET PO PRN ×6 (02:02→22:40)
[2017-09-01] MEDS: CEFEPIME 2 GM/D5W RTU 2 GM/50 ML RTUPB IV SCH (06:10)
[2017-09-01] MEDS: VANCOMYCIN HCL 750 MG in DEXTROSE 5%-WATER 250 ML IV SCH ×3 (06:56→22:44)
[2017-09-01] MEDS: INSULIN LISPRO 100 UNIT/ML 3 ML VIAL SUBCUT SCH ×3 (08:01→16:25)
[2017-09-01] MEDS: INSULIN GLARGINE,HUM.REC.ANLOG 300 UNIT/3 ML INSULN.PEN SUBCUT SCH ×2 (08:03→22:59)
[2017-09-01] MEDS: METOCLOPRAMIDE HCL 10 MG TABLET PO SCH ×4 (08:03→22:41)
[2017-09-01] MEDS: LIPASE/PROTEASE/AMYLASE 1 CAP CAPSULE.DR PO SCH ×2 (08:03→19:15)
[2017-09-01] MEDS: GABAPENTIN 300 MG CAPSULE PO SCH ×2 (10:33→22:42)
[2017-09-01] MEDS: FAMOTIDINE 20 MG TABLET PO SCH ×2 (10:33→22:42)
[2017-09-01] MEDS: PREGABALIN 75 MG CAPSULE PO SCH ×2 (10:33→18:25)
[2017-09-01] MEDS: NORMAL SALINE 10 ML SDV (SCHEDULED) IV SCH ×2 (10:34→22:44)
[2017-09-01] MEDS ORDERED: OXYCODONE HCL IR 5 MG TABLET ONE ×2 (14:13→22:29)
[2017-09-01] MEDS: ENOXAPARIN SODIUM INJ 40 MG/0.4 ML DISP.SYRIN SUBCUT SCH (14:16)
[2017-09-01] MEDS: OXYCODONE HCL IR 5 MG TABLET PO PRN ×3 (14:22→22:41)
--- NOTE | 2017-09-01 17:33 | PDOC PROGRESS REPORT ---
Subjective Progress Note for:: 09/01/17 Subjective:: Patient has been doing well with regard to his cellulitis and abscess of the right arm except he has recurrent hyperglycemia for which he requires multiple boluses of Humalog. He has been on Lantus 25 units in a.m. and 35 nightly. Added 10 units for post a.m. and p.m. doses. His pus culture from the right arm wound grew MRSA. Patient has been on cefepime and vancomycin I discontinue the cefepime and I will continue his Ativan. Reason For Visit: CELLULITIS OF RIGHT ARM LEUKOCYTOSIS Physical Exam Vital Signs: Temp Pulse Resp BP Pulse Ox 98.7 F 111 H 15 109/72 99 09/01/17 15:54 09/01/17 15:54 09/01/17 15:54 09/01/17 15:54 09/01/17 15:54 Intake & Output 08/31/17 09/01/17 09/02/17 06:59 06:59 06:59 Intake Total 7770 4583 1121 Output Total 300 Balance 7470 4583 1121 Weight 59.4 kg 60.6 kg General appearance: PRESENT: no acute distress Head exam: PRESENT: atraumatic Neck exam: ABSENT: carotid bruit, JVD, lymphadenopathy, thyromegaly Respiratory exam: PRESENT: clear to auscultation alfonso. ABSENT: rales, rhonchi, wheezes Cardiovascular exam: PRESENT: RRR. ABSENT: diastolic murmur, rubs, systolic murmur GI/Abdominal exam: PRESENT: normal bowel sounds, soft. ABSENT: distended, guarding, mass, organolmegaly, rebound, tenderness Neurological exam: PRESENT: alert, awake, oriented to time, oriented to situation Psychiatric exam: PRESENT: normal mood Results Laboratory Results: 08/31/17 04:30 08/31/17 04:30 08/30/17 09:09 Hand - Right Gram Stain - Final 08/30/17 09:10 Hand - Right Gram Stain - Final 08/26/17 18:41 Blood Blood Culture - Final NO GROWTH IN 5 DAYS Impressions: Hand X-Ray 08/26/17 15:57 IMPRESSION: No radiographic evidence of osteomyelitis. No gas within soft tissue or other soft tissue abnormality. Upper Extremity MRI 08/28/17 00:00 IMPRESSION: Abnormal architecture of the thenar musculature with increased T2 signal as well as enhancement, most consistent with pyomyositis, given patient' s history. This extends from the palmar surface to the dorsal surface of the thenar musculature. There are areas of confluence within the thenar musculature consistent with superimposed abscess. Increased fluid signal within the flexor tendon compartment. This may represent some tenosynovitis and possible spread of infection into the flexor tendon compartment. Guidance Fluoroscopy 08/30/17 00:00 IMPRESSION: SUCCESSFUL PLACEMENT OF A 5 FR DUAL LUMEN 38 CM PICC IN THE LEFT BASILIC VEIN. Interventional Vascular Procedure 08/30/17 00:00 IMPRESSION: SUCCESSFUL PLACEMENT OF A 5 FR DUAL LUMEN 38 CM PICC IN THE LEFT BASILIC VEIN. PICC Line Insertion 08/30/17 00:00 IMPRESSION: SUCCESSFUL PLACEMENT OF A 5 FR DUAL LUMEN 38 CM PICC IN THE LEFT BASILIC VEIN. Assessment & Plan - Diagnosis (1) Hyperglycemia Is this a current diagnosis for this admission?: Yes Plan: His basal insulin dose has been adjusted. (2) Leukocytosis Is this a current diagnosis for this admission?: Yes Plan: Resolved (3) Cellulitis of right hand Is this a current diagnosis for this admission?: Yes Plan: Improving (4) Chronic pancreatitis Is this a current diagnosis for this admission?: Yes Plan: Patient has been started his home pancrease. (5) Diabetic neuropathy Qualifiers: Diabetes mellitus type: type 1 Is this a current diagnosis for this admission?: Yes Plan: Patient has been started his home gabapentin and Lyrica. (6) Type 1 diabetes mellitus Is this a current diagnosis for this admission?: Yes Plan: Patient has an episode of hypoglycemia with blood sugar of 439 is given 20 units of Humalog.
[2017-09-01] MEDS ORDERED: OXYCODONE-ACETAMINOPHEN 5-325 MG TABLET ONE (22:30)
[2017-09-01] MEDS ORDERED: INSULIN GLARGINE,HUM.REC.ANLOG 300 UNIT/3 ML INSULN.PEN SUBCUT ONE (23:41)
[2017-09-02] MEDS: OXYCODONE-ACETAMINOPHEN 5-325 MG TABLET PO PRN ×6 (02:43→23:54)
[2017-09-02] MEDS: OXYCODONE HCL IR 5 MG TABLET PO PRN ×6 (02:44→23:53)
--- NOTE | 2017-09-02 06:26 | PDOC PROGRESS REPORT ---
Subjective Progress Note for:: 09/02/17 Reason For Visit: CELLULITIS OF RIGHT ARM LEUKOCYTOSIS 37-year-old black male status post I&D of her right thenar MRSA abscess Physical Exam Vital Signs: Temp Pulse Resp BP Pulse Ox 37.1 C 114 H 18 121/79 99 09/02/17 00:02 09/02/17 00:02 09/02/17 00:02 09/02/17 00:02 09/02/17 00:02 Intake & Output 08/31/17 09/01/17 09/02/17 06:59 06:59 06:59 Intake Total 7770 4583 1371 Output Total 300 Balance 7470 4583 1371 Weight 59.4 kg 60.6 kg General appearance: PRESENT: no acute distress Head exam: PRESENT: normocephalic Respiratory exam: PRESENT: unlabored Cardiovascular exam: PRESENT: RRR Extremities exam: PRESENT: other - Dressing changes morning. [place] in place. There is some maceration but it seems that the drainage is dramatically decreased. Induration is decreased. Erythema is decreased. Tenderness is decreased. Active range of the thumb is intact but somewhat limited by stiffness. Results Laboratory Results: 08/31/17 04:30 08/31/17 04:30 08/30/17 09:09 Hand - Right Gram Stain - Final 08/30/17 09:10 Hand - Right Gram Stain - Final Impressions: Hand X-Ray 08/26/17 15:57 IMPRESSION: No radiographic evidence of osteomyelitis. No gas within soft tissue or other soft tissue abnormality. Upper Extremity MRI 08/28/17 00:00 IMPRESSION: Abnormal architecture of the thenar musculature with increased T2 signal as well as enhancement, most consistent with pyomyositis, given patient' s history. This extends from the palmar surface to the dorsal surface of the thenar musculature. There are areas of confluence within the thenar musculature consistent with superimposed abscess. Increased fluid signal within the flexor tendon compartment. This may represent some tenosynovitis and possible spread of infection into the flexor tendon compartment. Guidance Fluoroscopy 08/30/17 00:00 IMPRESSION: SUCCESSFUL PLACEMENT OF A 5 FR DUAL LUMEN 38 CM PICC IN THE LEFT BASILIC VEIN. Interventional Vascular Procedure 08/30/17 00:00 IMPRESSION: SUCCESSFUL PLACEMENT OF A 5 FR DUAL LUMEN 38 CM PICC IN THE LEFT BASILIC VEIN. PICC Line Insertion 08/30/17 00:00 IMPRESSION: SUCCESSFUL PLACEMENT OF A 5 FR DUAL LUMEN 38 CM PICC IN THE LEFT BASILIC VEIN. Status: Imported from PACS Assessment & Plan - Diagnosis (1) Abscess right thenar,posterior site membreno Is this a current diagnosis for this admission?: Yes Plan: Overall abscess seems to be adequately drained and the inflammatory/infectious process seems to be resolving. Patient on antibiotics for MRSA. Discharge planning - Time Time Spent with patient: 15-24 minutes Anticipated discharge: Other Within: Other
[2017-09-02] MEDS: VANCOMYCIN HCL 750 MG in DEXTROSE 5%-WATER 250 ML IV SCH ×2 (06:40→14:20)
[2017-09-02] MEDS: INSULIN LISPRO 100 UNIT/ML 3 ML VIAL SUBCUT SCH ×3 (09:10→16:19)
[2017-09-02] MEDS: INSULIN GLARGINE,HUM.REC.ANLOG 300 UNIT/3 ML INSULN.PEN SUBCUT SCH ×2 (09:10→22:52)
[2017-09-02] MEDS: LIPASE/PROTEASE/AMYLASE 1 CAP CAPSULE.DR PO SCH ×2 (09:11→16:21)
[2017-09-02] MEDS: ENOXAPARIN SODIUM INJ 40 MG/0.4 ML DISP.SYRIN SUBCUT SCH (09:11)
[2017-09-02] MEDS: PREGABALIN 75 MG CAPSULE PO SCH ×2 (09:12→17:40)
[2017-09-02] MEDS: GABAPENTIN 300 MG CAPSULE PO SCH ×2 (09:13→22:46)
[2017-09-02] MEDS: FAMOTIDINE 20 MG TABLET PO SCH ×2 (09:13→22:46)
[2017-09-02] MEDS: METOCLOPRAMIDE HCL 10 MG TABLET PO SCH ×4 (09:14→22:46)
[2017-09-02] MEDS: NORMAL SALINE 10 ML SDV (SCHEDULED) IV SCH ×2 (10:56→22:47)
[2017-09-02] MEDS: INSULIN LISPRO 100 UNIT/ML 3 ML VIAL SUBCUT PRN ×3 (11:45→22:51)
--- NOTE | 2017-09-02 15:55 | PDOC PROGRESS REPORT ---
Subjective Progress Note for:: 09/02/17 Subjective:: Patient is sitting by the bedside. He is awake alert oriented. He is not in pain or distress. Wound dressing has been changed by Dr. Long. Tenderness, swelling and erythema of his right heart has been subsiding. Today she said Wednesday of antibiotics. His wound culture positive for MRSA. His potential discharge for tomorrow with oral antibiotics. Reason For Visit: CELLULITIS OF RIGHT ARM LEUKOCYTOSIS Physical Exam Vital Signs: Temp Pulse Resp BP Pulse Ox 98.6 F 110 H 16 114/67 100 09/02/17 11:09 09/02/17 11:09 09/02/17 11:09 09/02/17 11:09 09/02/17 11:09 Intake & Output 09/01/17 09/02/17 09/03/17 06:59 06:59 06:59 Intake Total 4583 3146 250 Balance 4583 3146 250 Weight 60.6 kg 60.2 kg General appearance: PRESENT: no acute distress Head exam: PRESENT: atraumatic, normocephalic Eye exam: PRESENT: conjunctiva pink. ABSENT: scleral icterus Mouth exam: PRESENT: moist Neck exam: ABSENT: carotid bruit, JVD, lymphadenopathy, thyromegaly Respiratory exam: ABSENT: rales, rhonchi, wheezes Cardiovascular exam: PRESENT: RRR. ABSENT: diastolic murmur, rubs, systolic murmur GI/Abdominal exam: PRESENT: normal bowel sounds, soft. ABSENT: distended, guarding, mass, organolmegaly, rebound, tenderness Rectal exam: PRESENT: deferred Extremities exam: PRESENT: full ROM. ABSENT: calf tenderness, clubbing, pedal edema Neurological exam: PRESENT: alert, awake, oriented to person, oriented to place , oriented to time, oriented to situation. ABSENT: motor sensory deficit Psychiatric exam: PRESENT: appropriate affect, normal mood. ABSENT: homicidal ideation, suicidal ideation Skin exam: PRESENT: dry, intact, warm. ABSENT: cyanosis, rash Results Laboratory Results: 08/31/17 04:30 08/31/17 04:30 08/30/17 09:10 Hand - Right Gram Stain - Final 08/30/17 09:10 Hand - Right Wound Culture - Final Mrsa (Meth Resis Staph Aureus) Group B Beta Streptococcus No Anaerobic Organisms 08/30/17 09:09 Hand - Right Gram Stain - Final 08/30/17 09:09 Hand - Right Wound Culture - Final Mrsa (Meth Resis Staph Aureus) No Anaerobic Organisms Impressions: Hand X-Ray 08/26/17 15:57 IMPRESSION: No radiographic evidence of osteomyelitis. No gas within soft tissue or other soft tissue abnormality. Upper Extremity MRI 08/28/17 00:00 IMPRESSION: Abnormal architecture of the thenar musculature with increased T2 signal as well as enhancement, most consistent with pyomyositis, given patient' s history. This extends from the palmar surface to the dorsal surface of the thenar musculature. There are areas of confluence within the thenar musculature consistent with superimposed abscess. Increased fluid signal within the flexor tendon compartment. This may represent some tenosynovitis and possible spread of infection into the flexor tendon compartment. Guidance Fluoroscopy 08/30/17 00:00 IMPRESSION: SUCCESSFUL PLACEMENT OF A 5 FR DUAL LUMEN 38 CM PICC IN THE LEFT BASILIC VEIN. Interventional Vascular Procedure 08/30/17 00:00 IMPRESSION: SUCCESSFUL PLACEMENT OF A 5 FR DUAL LUMEN 38 CM PICC IN THE LEFT BASILIC VEIN. PICC Line Insertion 08/30/17 00:00 IMPRESSION: SUCCESSFUL PLACEMENT OF A 5 FR DUAL LUMEN 38 CM PICC IN THE LEFT BASILIC VEIN. Assessment & Plan - Diagnosis (1) Hyperglycemia Is this a current diagnosis for this admission?: Yes Plan: Resolved (2) Leukocytosis Is this a current diagnosis for this admission?: Yes Plan: Resolved (3) Cellulitis of right hand Is this a current diagnosis for this admission?: Yes Plan: Has been improving (4) Chronic pancreatitis Is this a current diagnosis for this admission?: Yes Plan: Patient has been started his home pancrease. (5) Diabetic neuropathy Qualifiers: Diabetes mellitus type: type 1 Is this a current diagnosis for this admission?: Yes Plan: Patient has been started his home gabapentin and Lyrica. (6) Type 1 diabetes mellitus Is this a current diagnosis for this admission?: Yes Plan: Patient has an episode of hypoglycemia with blood sugar of 439 is given 20 units of Humalog.
[2017-09-02] MEDS ORDERED: LOPERAMIDE HCL 2 MG CAPSULE PO PRN (16:04)
[2017-09-03] MEDS: OXYCODONE HCL IR 5 MG TABLET PO PRN ×3 (03:55→12:41)
[2017-09-03] MEDS: OXYCODONE-ACETAMINOPHEN 5-325 MG TABLET PO PRN ×3 (03:56→12:41)
[2017-09-03] MEDS: METOCLOPRAMIDE HCL 10 MG TABLET PO SCH ×2 (08:01→11:52)
[2017-09-03] MEDS: LIPASE/PROTEASE/AMYLASE 1 CAP CAPSULE.DR PO SCH (08:04)
[2017-09-03] MEDS: INSULIN LISPRO 100 UNIT/ML 3 ML VIAL SUBCUT SCH ×2 (08:05→12:18)
[2017-09-03] MEDS: INSULIN GLARGINE,HUM.REC.ANLOG 300 UNIT/3 ML INSULN.PEN SUBCUT SCH (08:05)
--- NOTE | 2017-09-03 09:08 | PDOC DISCHARGE SUMMARY ---
General - Admit/Disc Date/PCP Admission Date/Primary Care Provider: 08/26/17 17:37 Discharge Date: 09/03/17 - Discharge Diagnosis (1) Hyperglycemia Is this a current diagnosis for this admission?: Yes (2) Leukocytosis Is this a current diagnosis for this admission?: Yes (3) Cellulitis of right hand Is this a current diagnosis for this admission?: Yes (4) Chronic pancreatitis Is this a current diagnosis for this admission?: Yes (5) Diabetic neuropathy Is this a current diagnosis for this admission?: Yes (6) Type 1 diabetes mellitus Is this a current diagnosis for this admission?: Yes - Additional Information Resuscitation Status: Full Code Home Medications: Insulin Glargine,Hum.rec.anlog [Lantus Insulin 100 Unit/1 ml 10 ml] 35 units SQ DAILY 08/26/17 Insulin Lispro [Humalog Insulin (Lispro) 100 unit/mL] See Protocol SQ ACHS 08/26 History of Present Illness History of Present Illness: CHESTER MCKEON is a 37 year old back male patient with past medical history of recurrent DKA and multiple hospitalization, hypertension, hyperlipidemia, GERD, chronic pancreatitis, neuropathy, and uncontrolled diabetes mellitus since was 3 days swelling, pain, tenderness, and redness of his right forearm over 3 days duration. 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 Patient also complains of nausea and vomiting. No change in his bowel habits or urinary complaints. Has associated fever and chills. No headache dizziness or blurry vision. His initial blood workup shows leukocytosis of 19,000 and mild hyperglycemia with a normal anion gap. His hand x-ray is compatible cellulitis without signs of osteomyelitis. Hospital Course Hospital Course: This is 37 years old black male patient with past medical history of recurrent DKA, chronic pancreatitis and polysubstance abuse presented with right forearm swelling, erythema and tenderness which is compatible with cellulitis and abscess. No sign of osteomyelitis on his x-ray. Patient has been started empirically on cefepime and vancomycin. Orthopedic surgeon Dr. Long performed emergent incision and drainage of abscess and total debridement of the wound. His wound culture grew MRSA his antibiotics continue his vancomycin alone. The swelling, tenderness and erythema has subsided and his active range of motion of his right thumb is preserved. His hospital stays complicated by intermittent hyperglycemia. I adjusted the dose of his Lantus from 25 units in the morning to 35 units and his p.m. dose from 35-45 units. His vitals are stable patient is also in stable condition and he can be discharged today. I will continue all his home medication and I will add clindamycin 600 mg for additional 7 days. Physical Exam Vital Signs: Temp Pulse Resp BP Pulse Ox 98.7 F 102 H 17 116/69 100 09/02/17 23:25 09/02/17 23:25 09/02/17 23:25 09/02/17 23:25 09/02/17 23:25 Intake & Output 09/02/17 09/03/17 09/04/17 06:59 06:59 06:59 Intake Total 3146 3253 Balance 3146 3253 Weight 60.2 kg 61.4 kg General appearance: PRESENT: no acute distress, well-developed Head exam: PRESENT: atraumatic, normocephalic Eye exam: PRESENT: conjunctiva pink, EOMI. ABSENT: scleral icterus Mouth exam: PRESENT: moist Neck exam: ABSENT: carotid bruit, JVD, lymphadenopathy, thyromegaly Respiratory exam: PRESENT: clear to auscultation alfonso. ABSENT: rales, rhonchi, wheezes Cardiovascular exam: PRESENT: RRR. ABSENT: diastolic murmur, rubs, systolic murmur GI/Abdominal exam: PRESENT: normal bowel sounds, soft. ABSENT: distended, guarding, mass, organolmegaly, rebound, tenderness Rectal exam: PRESENT: deferred Extremities exam: PRESENT: full ROM. ABSENT: calf tenderness, clubbing, pedal edema Neurological exam: PRESENT: alert, awake, oriented to person, oriented to place , oriented to time, oriented to situation. ABSENT: motor sensory deficit Psychiatric exam: PRESENT: appropriate affect, normal mood. ABSENT: homicidal ideation, suicidal ideation Skin exam: PRESENT: dry, intact, warm. ABSENT: cyanosis, rash Results Laboratory Results: 08/31/17 04:30 08/31/17 04:30 08/30/17 09:10 Hand - Right Gram Stain - Final 08/30/17 09:10 Hand - Right Wound Culture - Final Mrsa (Meth Resis Staph Aureus) Group B Beta Streptococcus No Anaerobic Organisms 08/30/17 09:09 Hand - Right Gram Stain - Final 08/30/17 09:09 Hand - Right Wound Culture - Final Mrsa (Meth Resis Staph Aureus) No Anaerobic Organisms Impressions: Hand X-Ray 08/26/17 15:57 IMPRESSION: No radiographic evidence of osteomyelitis. No gas within soft tissue or other soft tissue abnormality. Upper Extremity MRI 08/28/17 00:00 IMPRESSION: Abnormal architecture of the thenar musculature with increased T2 signal as well as enhancement, most consistent with pyomyositis, given patient' s history. This extends from the palmar surface to the dorsal surface of the thenar musculature. There are areas of confluence within the thenar musculature consistent with superimposed abscess. Increased fluid signal within the flexor tendon compartment. This may represent some tenosynovitis and possible spread of infection into the flexor tendon compartment. Guidance Fluoroscopy 08/30/17 00:00 IMPRESSION: SUCCESSFUL PLACEMENT OF A 5 FR DUAL LUMEN 38 CM PICC IN THE LEFT BASILIC VEIN. Interventional Vascular Procedure 08/30/17 00:00 IMPRESSION: SUCCESSFUL PLACEMENT OF A 5 FR DUAL LUMEN 38 CM PICC IN THE LEFT BASILIC VEIN. PICC Line Insertion 08/30/17 00:00 IMPRESSION: SUCCESSFUL PLACEMENT OF A 5 FR DUAL LUMEN 38 CM PICC IN THE LEFT BASILIC VEIN. Qualifiers - * PATIENT BEING DISCHARGED WITH ANY OF THE FOLLOWING DIAGNOSIS: No
[2017-09-03] MEDS: ENOXAPARIN SODIUM INJ 40 MG/0.4 ML DISP.SYRIN SUBCUT SCH (09:39)
[2017-09-03] MEDS ORDERED: VANCOMYCIN HCL 1,000 MG in DEXTROSE 5%-WATER 250 ML IV ONE (10:00)
[2017-09-03] MEDS: PREGABALIN 75 MG CAPSULE PO SCH (10:23)
[2017-09-03] MEDS: GABAPENTIN 300 MG CAPSULE PO SCH (10:23)
[2017-09-03] MEDS: FAMOTIDINE 20 MG TABLET PO SCH (10:23)
[2017-09-03 11:32] VITALS: BP 111/76
[2017-09-03] MEDS: INSULIN LISPRO 100 UNIT/ML 3 ML VIAL SUBCUT PRN (12:19)
== END 2017-09-03 15:46 | disposition home or self-care (01) | DRG 638 ==
LOC: ER 15:44 → EH 17:37 → 5 19:55
PROVIDERS: ADMIT Internal Medicine; ATTEND Internal Medicine
PROC: 3E0234Z Introduction of Serum, Toxoid and Vaccine into Muscle, Percutaneous Approach (ICD-10-PCS; 2017-08-26)
PROC: 02HV33Z Insertion of Infusion Device into Superior Vena Cava, Percutaneous Approach (ICD-10-PCS; 2017-08-30)
PROC: B548ZZA Ultrasonography of Superior Vena Cava, Guidance (ICD-10-PCS; 2017-08-30)
PROC: B518ZZA Fluoroscopy of Superior Vena Cava, Guidance (ICD-10-PCS; 2017-08-30)
PROC: 0X9J00Z Drainage of Right Hand with Drainage Device, Open Approach (ICD-10-PCS; principal; 2017-08-30 10:30)
DX: E10.10 Type 1 diabetes mellitus with ketoacidosis without coma (principal); L03.113 Cellulitis of right upper limb; M60.041 Infective myositis, right hand; L02.511 Cutaneous abscess of right hand; K86.1 Other chronic pancreatitis; E10.40 Type 1 diabetes mellitus with diabetic neuropathy, unspecified; F12.90 Cannabis use, unspecified, uncomplicated; E78.00 Pure hypercholesterolemia, unspecified; I10 Essential (primary) hypertension; K21.9 Gastro-esophageal reflux disease without esophagitis; F32.9 Major depressive disorder, single episode, unspecified; R23.4 Changes in skin texture; B95.62 Methicillin resistant Staphylococcus aureus infection as the cause of diseases classified elsewhere; B95.1 Streptococcus, group B, as the cause of diseases classified elsewhere; F17.210 Nicotine dependence, cigarettes, uncomplicated; Z79.4 Long term (current) use of insulin
CPT/HCPCS: 00400; 36415; 36569; 76937; 77001; 80048; 80053; 80202; 81001; 82565; 82803; 82962; 83036; 83605; 83690; 85025; 85027; 85652; 86701; 86702; 87040; 87070; 87075; 87077; 87186; 87205; 87493; 90714; 93005; 93010; 96360; 99285; A9576; J0131; J0692; J1100; J1642; J1650; J1815; J2250; J2270; J2370; J2405; J2543; J2704; J2765; J3010; J3370; J3490; J7030; J7060; J7120

== ENCOUNTER 2017-09-05 16:28 | Inpatient (IN) | payer SELFPAY ==
[2017-09-05] MEDS ORDERED: CLINDAMYCIN 600 MG/D5W RTU 600 MG/50 ML RTUPB IV ONE (16:54)
--- NOTE | 2017-09-05 16:57 | ER Document Report ---
ED Medical Screen (RME) - General Chief Complaint: Post Surgical Pain Stated Complaint: HAND PAIN/INJURY Time Seen by Provider: 09/05/17 16:43 Mode of Arrival: Ambulatory Information source: Patient Notes: This is a 37 year old man with insulin-requiring diabetes who was just discharged from the hospital 2 days ago after having an incision and drainage of a pyomyositis of the right thenar eminence. Patient reports that he was discharged Wednesday evening and his medicine prescriptions were sent to Drs. Longoria and that by the time he got out of the hospital, the pharmacy was closed. He reports that the pharmacy has been closed the whole weekend and he has been without his antibiotics for 2 days. He reports subjective fevers, increased pain in the hand increased swelling and redness of the thumb. TRAVEL OUTSIDE OF THE [place] IN LAST 30 DAYS: No - Related Data Allergies/Adverse Reactions: ondansetron [From Zofran (as hydrochloride)] Allergy (Verified 08/26/17 15:45) Past Medical History - Social History Chew tobacco use (# tins/day): Yes Frequency of alcohol use: None Drug Abuse: None - Past Medical History Cardiac Medical History: Reports: Hx Hypercholesterolemia, Hx Hypertension - Taken off medication for same. Denies: Hx Atrial Fibrillation, Hx Congestive Heart Failure, Hx Coronary Artery Disease, Hx Heart Attack, Hx Pulmonary Embolism Pulmonary Medical History: Denies: Hx Asthma, Hx COPD, Hx Sleep Apnea Neurological Medical History: Denies: Hx Seizures Endocrine Medical History: Reports: Hx Diabetes Mellitus Type 1, Hx Diabetes Mellitus Type 2. Denies: Hx Hyperthyroidism, Hx Hypothyroidism Renal/ Medical History: Denies: Hx Peritoneal Dialysis GI Medical History: Reports: Hx Gastroesophageal Reflux Disease, Hx Pancreatitis. Denies: Hx Cirrhosis, Hx Hepatitis Musculoskeltal Medical History: Denies Hx Arthritis Psychiatric Medical History: Reports: Hx Depression Infectious Medical History: Denies: Hx Hepatitis Past Surgical History: Reports: Hx Orthopedic Surgery - back, left long finger PIP disarticulation. Denies: Hx Appendectomy, Hx Cholecystectomy, Hx Tonsillectomy - Immunizations Hx Diphtheria, Pertussis, Tetanus Vaccination: Yes History of Influenza Vaccine for 11/2016 - 04/2017 Season: Refused Physical Exam - Vital signs Vitals: Temp Pulse Resp BP Pulse Ox 97.9 F 120 H 16 131/81 H 97 09/05/17 16:38 09/05/17 16:38 09/05/17 16:38 09/05/17 16:38 09/05/17 16:38 Course - Vital Signs Vital signs: Temp Pulse Resp BP Pulse Ox 97.9 F 120 H 16 131/81 H 97 09/05/17 16:38 09/05/17 16:38 09/05/17 16:38 09/05/17 16:38 09/05/17 16:38 Doctor's Discharge - Discharge Referrals: LOCALMD,NO [Primary Care Provider] - Follow up as needed
[2017-09-05] MEDS ORDERED: MORPHINE SULFATE 10 MG/ML INJ IV ONE (17:40)
--- NOTE | 2017-09-05 17:51 | ER Document Report ---
ED General - General Chief Complaint: Post Surgical Pain Stated Complaint: HAND PAIN/INJURY Time Seen by Provider: 09/05/17 16:43 Mode of Arrival: Ambulatory Information source: Patient Notes: 37-year-old male who had a MRSA infection of the hand which was operated on by Dr. Long due to the cellulitic component abscess and the drain was placed started on clindamycin presents with complaints of worsening pain and redness. Patient notes that he was unable to get his antibiotics since he was sent to [facility] which has been closed over the weekend, he has not had antibiotics for 2 days now. He notes subjective fevers at home TRAVEL OUTSIDE OF THE [place] IN LAST 30 DAYS: No - HPI Onset: Other Onset/Duration: Persistent, Worse Quality of pain: Sharp Severity: Moderate Pain Level: 2 Associated symptoms: Body/muscle aches Exacerbated by: Movement Relieved by: Denies Similar symptoms previously: Yes Recently seen / treated by doctor: Yes - Related Data Allergies/Adverse Reactions: ondansetron [From Zofran (as hydrochloride)] Allergy (Verified 08/26/17 15:45) Past Medical History - General Information source: Patient - Social History Smoking Status: Never Smoker Cigarette use (# per day): No Chew tobacco use (# tins/day): Yes Smoking Education Provided: No Frequency of alcohol use: None Drug Abuse: None Family History: DM, Hyperlipidemia, Hypertension Patient has suicidal ideation: No Patient has homicidal ideation: No - Past Medical History Cardiac Medical History: Reports: Hx Hypercholesterolemia, Hx Hypertension - Taken off medication for same. Denies: Hx Atrial Fibrillation, Hx Congestive Heart Failure, Hx Coronary Artery Disease, Hx Heart Attack, Hx Pulmonary Embolism Pulmonary Medical History: Denies: Hx Asthma, Hx COPD, Hx Sleep Apnea Neurological Medical History: Denies: Hx Seizures Endocrine Medical History: Reports: Hx Diabetes Mellitus Type 1, Hx Diabetes Mellitus Type 2. Denies: Hx Hyperthyroidism, Hx Hypothyroidism Renal/ Medical History: Denies: Hx Peritoneal Dialysis GI Medical History: Reports: Hx Gastroesophageal Reflux Disease, Hx Pancreatitis. Denies: Hx Cirrhosis, Hx Hepatitis Musculoskeletal Medical History: Denies Hx Arthritis Psychiatric Medical History: Reports: Hx Depression Infectious Medical History: Denies: Hx Hepatitis Past Surgical History: Reports: Hx Orthopedic Surgery - back, left long finger PIP disarticulation. Denies: Hx Appendectomy, Hx Cholecystectomy, Hx Tonsillectomy - Immunizations Hx Diphtheria, Pertussis, Tetanus Vaccination: Yes Hx Pneumococcal Vaccination: 11/09/11 Review of Systems - Review of Systems Notes: REVIEW OF SYSTEMS: CONSTITUTIONAL : Admits to fevers EENT: Denies eye, ear, throat, or mouth pain or symptoms. Denies nasal or sinus congestion or discharge. Denies throat, tongue, or mouth swelling or difficulty swallowing. CARDIOVASCULAR: Denies chest pain. Denies palpitations or racing or irregular heart beat. Denies ankle edema. RESPIRATORY: Denies cough, cold, or chest congestion. Denies shortness of breath, difficulty breathing, or wheezing. GASTROINTESTINAL: Denies abdominal pain or distention. Denies nausea, vomiting , or diarrhea. Denies blood in vomitus, stools, or per rectum. Denies black, tarry stools. Denies constipation. GENITOURINARY: Denies difficulty urinating, painful urination, burning, frequency, blood in urine, or discharge. MUSCULOSKELETAL: Denies back or neck pain or stiffness. Denies joint pain or swelling. SKIN: Admits to hand pain HEMATOLOGIC : Denies easy bruising or bleeding. LYMPHATIC: Denies swollen, enlarged glands. NEUROLOGICAL: Denies confusion or altered mental status. Denies passing out or loss of consciousness. Denies dizziness or lightheadedness. Denies headache. Denies weakness or paralysis or loss of use of either side. Denies problems with gait or speech. Denies sensory loss, numbness, or tingling. Denies seizures. PSYCHIATRIC: Denies anxiety or stress. Denies depression, suicidal ideation, or homicidal ideation. ALL OTHER SYSTEMS REVIEWED AND NEGATIVE. Dictation was performed using [employer] voice recognition software PHYSICAL EXAMINATION: GENERAL: Well-appearing, well-nourished and in no acute distress. HEAD: Atraumatic, normocephalic. EYES: Pupils equal round and reactive to light, extraocular movements intact, sclera anicteric, conjunctiva are normal. ENT: Nares patent, oropharynx clear without exudates. Moist mucous membranes. NECK: Normal range of motion, supple without lymphadenopathy LUNGS: Breath sounds clear to auscultation bilaterally and equal. No wheezes rales or rhonchi. HEART: Regular rate and rhythm without murmurs ABDOMEN: Soft, nontender, nondistended abdomen. No guarding, no rebound. No masses appreciated. Musculoskeletal: Normal range of motion, no pitting or edema. No cyanosis. NEUROLOGICAL: Cranial nerves grossly intact. Normal speech, normal gait. Normal sensory, motor exams PSYCH: Normal mood, normal affect. SKIN: Right hand there is a drain located no active drainage seen mild erythema Physical Exam - Vital signs Vitals: Temp Pulse Resp BP Pulse Ox 97.9 F 120 H 16 131/81 H 97 09/05/17 16:38 09/05/17 16:38 09/05/17 16:38 09/05/17 16:38 09/05/17 16:38 Course - Re-evaluation Re-evalutation: 09/05/17 18:01 [address] did speak with Dr. Long, given her concern is that the patient has not had any antibiotics for the past few days and that it was positive for MRSA we do agree that is beneficial to admit the patient for IV antibiotics overnight. He will be given pain control clindamycin has been ordered and it is sensitive - Vital Signs Vital signs: Temp Pulse Resp BP Pulse Ox 97.9 F 120 H 16 131/81 H 97 09/05/17 16:38 09/05/17 16:38 09/05/17 16:38 09/05/17 16:38 09/05/17 16:38 Discharge - Discharge Clinical Impression: Abscess, Abscess right thenar,posterior site membreno Diabetes Qualifiers: Diabetes mellitus type: type 1 Diabetes mellitus complication status: with skin complications Diabetes mellitus complication detail: with other skin complication Qualified Code(s): E10.628 - Type 1 diabetes mellitus with other skin complications Condition: Stable Disposition: ADMITTED OBSERVATION Admitting Provider: Ethan Unit Admitted: Surgical Floor Referrals: LOCALMD,NO [NO LOCAL MD] - Follow up as needed
[2017-09-05 19:05] LABS: VENOUS BLOOD BASE EXCESS 1.7 mmol/L; VENOUS BLOOD HCO3 27.2 mmol/L (20-32); VENOUS BLOOD PCO2 46.7 mmHg (35-63); VENOUS BLOOD PH 7.38 (7.30-7.42)
[2017-09-05 19:11] LABS: HEMATOCRIT 29.1 % (37.9-51.0); HEMOGLOBIN 9.1 g/dL (13.5-17.0); MEAN CORPUSCULAR HGB CONC 31.1 g/dL (32.0-36.0); MEAN CORPUSCULAR VOLUME 77 fl (80-97); PLATELET COUNT 550 10^3/uL (150-450); RED BLOOD COUNT 3.78 10^6/uL (4.35-5.55); RED CELL DISTRIBUTION WIDTH 20.1 % (11.5-14.0); WHITE BLOOD COUNT 6.9 10^3/uL (4.0-10.5)
[2017-09-05 19:43] LABS: ALANINE AMINOTRANSFERASE 48 U/L (21-72); ALBUMIN 3.6 g/dL (3.5-5.0); ALKALINE PHOSPHATASE 178 U/L (38-126); ANION GAP 13 (5-19); ASPARTATE AMINO TRANSFERASE 36 U/L (17-59); BILIRUBIN,DIRECT 0.3 mg/dL (0.0-0.4); BILIRUBIN,TOTAL 0.3 mg/dL (0.2-1.3); BLOOD UREA NITROGEN 32 mg/dL (7-20); CALCIUM 9.5 mg/dL (8.4-10.2); CARBON DIOXIDE 28 mmol/L (22-30); CHLORIDE 92 mmol/L (98-107); POTASSIUM 5.2 mmol/L (3.6-5.0); SODIUM 133.2 mmol/L (137-145); TOTAL PROTEIN 7.3 g/dL (6.3-8.2)
[2017-09-05 19:49] LABS: ABSOLUTE LYMPHOCYTES# (MANUAL) 1.4 10^3/uL (0.5-4.7); ABSOLUTE MONOCYTES # (MANUAL) 0.2 10^3/uL (0.1-1.4); BAND NEUTROPHILS % (MANUAL) 2 % (3-5); BASOPHILS % (MANUAL) 2 % (0-2); EOSINOPHILS % (MANUAL) 2 % (0-6); LYMPHOCYTES % (MANUAL) 20 % (13-45); MONOCYTES % (MANUAL) 3 % (3-13); SEGMENTED NEUTROPHILS % (MAN) 71 % (42-78); TOTAL CELLS COUNTED 100
[2017-09-05 19:52] LABS: ANISOCYTOSIS 2+; HYPOCHROMASIA 2+; PLATELET COMMENT INCREASED; POIKILOCYTOSIS SLIGHT
[2017-09-05 20:02] LABS: GLUCOSE 683 mg/dL (75-110)
[2017-09-05] MEDS ORDERED: INSULIN REG, HUMAN 100 UNIT/ML 3 ML VIAL (PYX) IV ONE ×2 (20:11→23:03)
[2017-09-05] MEDS: NORMAL SALINE 1000 ML 1,000 ML IV PRN ×2 (20:29→22:05)
[2017-09-05] MEDS ORDERED: NORMAL SALINE 1000 ML 1,000 ML IV PRN (23:26)
[2017-09-05] MEDS ORDERED: DEXTROSE 40% GEL 15 GM TUBE PO PRN ×2 (23:40)
[2017-09-05] MEDS ORDERED: DEXTROSE 50%-WATER 25 GM/50 ML DISP.SYRIN IV PRN ×2 (23:40)
[2017-09-05] MEDS ORDERED: GLUCAGON,HUMAN RECOMB 1 MG INJ IM PRN (23:40)
[2017-09-05] MEDS ORDERED: HYDROMORPHONE HCL INJ/PF 2 MG/ML AMPULE IV ONE (23:41)
[2017-09-06 00:13] LABS: HEMATOCRIT 26.4 % (37.9-51.0); HEMOGLOBIN 8.3 g/dL (13.5-17.0); MEAN CORPUSCULAR HGB CONC 31.3 g/dL (32.0-36.0); MEAN CORPUSCULAR VOLUME 77 fl (80-97); PLATELET COUNT 476 10^3/uL (150-450); RED BLOOD COUNT 3.43 10^6/uL (4.35-5.55); RED CELL DISTRIBUTION WIDTH 19.9 % (11.5-14.0); WHITE BLOOD COUNT 6.8 10^3/uL (4.0-10.5)
[2017-09-06 00:26] LABS: ANION GAP 13 (5-19); BLOOD UREA NITROGEN 30 mg/dL (7-20); CALCIUM 8.6 mg/dL (8.4-10.2); CARBON DIOXIDE 23 mmol/L (22-30); CHLORIDE 100 mmol/L (98-107); SODIUM 135.9 mmol/L (137-145)
[2017-09-06] MEDS ORDERED: OXYCODONE HCL SR 10 MG TABLET PO PRN ×2 (00:39→03:16)
[2017-09-06] MEDS: INSULIN LISPRO 100 UNIT/ML 3 ML VIAL SUBCUT PRN ×4 (01:26→22:25)
[2017-09-06] MEDS ORDERED: INSULIN GLARGINE,HUM.REC.ANLOG 300 UNIT/3 ML INSULN.PEN SUBCUT ONE ×2 (01:30→01:41)
[2017-09-06] MEDS ORDERED: CLINDAMYCIN 600 MG/D5W RTU 600 MG/50 ML RTUPB IV SCH (02:00)
--- NOTE | 2017-09-06 04:03 | PDOC H&P ---
History of Present Illness Admission Date/PCP: 09/05/17 23:26 Patient complains of: Right hand pain History of Present Illness: CHESTER MCKEON is a 37 year old man with a history of poorly controlled type 1 diabetes and chronic pancreatitis who was recently discharged from this hospital after a prolonged hospital stay related to right hand infection. Just prior to that he was hospitalized for a left hand infection which left him with a partial finger amputation. Patient was discharged within the last day or 2 with the plan to continue oral clindamycin for a right hand infection, abscess that had been opened and drained by orthopedic surgeon. Patient was to have close follow-up. Unfortunately he was unable to get his prescription filled and has come back into the hospital with worsening pain. He is being admitted to the hospitalist service for uncontrolled glucose, not DKA at this time. Also with right hand infection with community-acquired MRSA in the wound culture. Past Medical History Cardiac Medical History: Reports: Hyperlipidema, Hypertension - Taken off medication for same. Denies: Atrial Fibrillation, Congestive Heart Failure, Coronary Artery Disease, Myocardial Infarction, Pulmonary Embolism Pulmonary Medical History: Denies: Asthma, Chronic Obstructive Pulmonary Disease (COPD), Sleep Apnea EENT Medical History: Denies: Eyes Neurological Medical History: Denies: Seizures Endocrine Medical History: Reports: Diabetes Mellitus Type 1, Diabetes Mellitus Type 2 Denies: Hyperthyroidism, Hypothyroidism, Obesity Renal/ Medical History: Denies: End Stage Renal Disease Malignancy Medical History: Denies: None GI Medical History: Reports: Gastroesophageal Reflux Disease Denies: Cirrhosis, Hepatitis Musculoskeltal Medical History: Denies: Arthritis Psychiatric Medical History: Reports: Depression Denies: Substance Abuse Hematology: Reports: Anemia - Chronic illnesses Infectious Medical History: Reports: Methicillin-Resistant Staph Aureus Past Surgical History Past Surgical History: Reports: Orthopedic Surgery - back, left long finger PIP disarticulation, now s/p right hand I and D Denies: Appendectomy, Cholecystectomy, Tonsillectomy Social History Information Source: Patient Lives with: Alone Smoking Status: Former Smoker Frequency of Alcohol Use: None Hx Recreational Drug Use: Yes Drugs: Marijuana Hx Prescription Drug Abuse: Yes Past Social History Note: Patient is currently, aside from marijuana use for appetite stimulation, not using illegal drugs. He quit alcohol and tobacco several years ago. He was recently employed at [employer] though lost his job secondary to acute and chronic illness. He is trying to get disability and Medicaid and struggles with the fact that he does not have health insurance. - Advance Directive Resuscitation Status: Full Code Surrogate healthcare decision maker:: mother is healthcare surrogate: Deisy Aguirre [phone] Family History Family History: DM, Hyperlipidemia, Hypertension Parental Family History Reviewed: Yes Children Family History Reviewed: Yes Sibling(s) Family History Reviewed.: Yes Medication/Allergy Home Medications: Insulin Glargine,Hum.rec.anlog [Lantus Insulin 100 Unit/1 ml 10 ml] 35 units SQ DAILY 08/26/17 Insulin Lispro [Humalog Insulin (Lispro) 100 unit/mL] See Protocol SQ ACHS 08/26 Insulin Glargine,Hum.rec.anlog [Lantus Insulin 100 Unit/mL] 35 unit SUBCUT QAM # 1 insuln.pen 09/03/17 Insulin Glargine,Hum.rec.anlog [Lantus Insulin 100 Unit/mL] 45 unit SUBCUT QHS # 1 insuln.pen 09/03/17 Allergies/Adverse Reactions: ondansetron [From Zofran (as hydrochloride)] Allergy (Verified 08/26/17 15:45) Review of Systems Constitutional: ABSENT: anorexia, chills, fever(s) Eyes: ABSENT: visual disturbances Ears: ABSENT: hearing changes Nose, Mouth, and Throat: ABSENT: sore throat Cardiovascular: ABSENT: edema Respiratory: PRESENT: cough. ABSENT: sputum Gastrointestinal: PRESENT: abdominal pain, diarrhea. ABSENT: constipation, nausea, vomiting Genitourinary: ABSENT: dysuria Musculoskeletal: ABSENT: back pain, deformity, muscle weakness Integumentary: PRESENT: wounds Neurological: ABSENT: syncope Psychiatric: PRESENT: depression. ABSENT: anxiety Endocrine: ABSENT: cold intolerance, heat intolerance Hematologic/Lymphatic: ABSENT: easy bleeding, easy bruising Allergic/Immunologic: ABSENT: seasonal rhinorrhea Physical Exam Vital Signs: Temp Pulse Resp BP Pulse Ox 97.5 F 102 H 15 105/79 99 09/05/17 21:00 09/05/17 21:00 09/06/17 02:01 09/06/17 02:01 09/06/17 02:01 Intake & Output 09/04/17 09/05/17 09/06/17 06:59 06:59 06:59 Output Total 900 Balance -900 General appearance: PRESENT: no acute distress, cooperative, thin Head exam: PRESENT: atraumatic, normocephalic Eye exam: PRESENT: EOMI. ABSENT: conjunctival injection, scleral icterus Ear exam: PRESENT: normal external ear exam Mouth exam: PRESENT: neck supple, tongue midline Respiratory exam: PRESENT: clear to auscultation alfonso, unlabored. ABSENT: prolonged expiratory phas, rales, rhonchi, wheezes Cardiovascular exam: PRESENT: RRR. ABSENT: systolic murmur Pulses: PRESENT: normal radial pulses GI/Abdominal exam: PRESENT: normal bowel sounds, soft. ABSENT: ascites, guarding, tenderness Rectal exam: PRESENT: deferred Gentrourinary exam: ABSENT: indwelling catheter Extremities exam: ABSENT: joint swelling, pedal edema Musculoskeletal exam: PRESENT: other - left long finger amputation, right hand in post op dressing Neurological exam: PRESENT: alert, awake, oriented to person, oriented to place , oriented to situation, CN II-XII grossly intact Psychiatric exam: ABSENT: anxious Skin exam: PRESENT: dry, intact, warm, other Results Laboratory Results: 09/05/17 23:50 09/05/17 23:50 09/05/17 09/05/17 09/06/17 23:50 23:50 00:35 WBC 6.8 RBC 3.43 L Hgb 8.3 L Hct 26.4 L MCV 77 L MCH 24.0 L MCHC 31.3 L RDW 19.9 H Plt Count 476 H Sodium 135.9 L Potassium 5.0 Chloride 100 Carbon Dioxide 23 Anion Gap 13 BUN 30 H Creatinine 0.98 Est GFR ( Amer) > 60 Est GFR (Non-Af Amer) > 60 Glucose 546 H* Lactic Acid 1.8 Calcium 8.6 Assessment & Plan - Diagnosis (1) Abscess right thenar,posterior site membreno Is this a current diagnosis for this admission?: Yes Plan: Patient was recently discharged from this hospital after an incision and drainage of abscess in the right thenar region. He is a wound culture that grew MRSA, sensitive to clindamycin. He for discharge was transitioned to oral clindamycin. On discharge she was unable to get his prescription filled and pain worsened and so he came back into the hospital. He is now on IV clindamycin 600 mg IV every 8 hours. Blood cultures are pending. Orthopedic surgeon is aware the patient is admitted and will see him to evaluate the wound in the morning. (2) Acute pain Is this a current diagnosis for this admission?: Yes Plan: For acute pain related to the incision and drainage and acute infection he will be started on oxycodone 15 mg p.o. every 4 hours as needed severe pain. We will try to transition him off of the opiates and will not plan to discharge him on opiate pain medications. He is aware. (3) Anemia of chronic disease Is this a current diagnosis for this admission?: Yes Plan: No sign of active bleeding though his hemoglobin did drop on evaluation of CBC in the ER. He likely does have anemia of chronic disease but I wonder if there is an acute process as well, also he is postop and may have lost blood in the surgery. Until we have more data will place him on SCDs instead of DVT prophylaxis, hopefully will be able to start DVT prophylaxis tomorrow. (4) Cellulitis of right hand Is this a current diagnosis for this admission?: Yes Plan: Patient's wound culture, several days ago, grew MRSA sensitive to clindamycin. He is now back on clindamycin. We will watch the wound closely and the orthopedic hand surgeon will see him tomorrow to evaluate the wound as well. (5) Diabetes type 1, uncontrolled Qualifiers: Diabetes mellitus complication detail: with diabetic retinopathy Is this a current diagnosis for this admission?: Yes Plan: Patient has significant complications related to uncontrolled diabetes. He has had multiple episodes of DKA, he has retinopathy and neuropathy. He becomes infected very quickly. He is aware of the complications related to his uncontrolled diabetes. He states that he takes his Lantus and his short acting insulin as prescribed at home. Here I have started him on lower than his home doses of short acting lispro. (6) Hyperglycemia due to type 1 diabetes mellitus Is this a current diagnosis for this admission?: Yes Plan: In the hospital patient's blood glucose was greater than 600. He received regular insulin from the ER attending. I started his Lantus tonight and we started him on sliding scale short acting insulin. Will add a pre-meal dose as he uses this at home. Will monitor his glucose carefully and treat, up or down try to titrate the medication, as indicated. - Time Time Spent: 50 to 70 Minutes Anticipated discharge: Home - Inpatient Certification Based on my medical assessment, after consideration of the patient's comorbidities, presenting symptoms, or acuity I expect that the services needed warrant INPATIENT care.: Yes Medical Necessity: Need for IV Antibiotics, Risk of Complication if Not Cared For in Hospital
[2017-09-06] MEDS ORDERED: CLINDAMYCIN 600 MG/D5W RTU 600 MG/50 ML RTUPB IV ONE (04:15)
[2017-09-06 04:38] LABS: HEMATOCRIT 25.6 % (37.9-51.0); HEMOGLOBIN 8.1 g/dL (13.5-17.0); MEAN CORPUSCULAR HEMOGLOBIN 23.6 pg (27.0-33.4); MEAN CORPUSCULAR HGB CONC 31.7 g/dL (32.0-36.0); MEAN CORPUSCULAR VOLUME 75 fl (80-97); PLATELET COUNT 476 10^3/uL (150-450); RED BLOOD COUNT 3.44 10^6/uL (4.35-5.55); RED CELL DISTRIBUTION WIDTH 19.1 % (11.5-14.0)
[2017-09-06 04:46] LABS: ANION GAP 11 (5-19); BLOOD UREA NITROGEN 28 mg/dL (7-20); CALCIUM 9.1 mg/dL (8.4-10.2); CARBON DIOXIDE 25 mmol/L (22-30); CHLORIDE 107 mmol/L (98-107); GLUCOSE 127 mg/dL (75-110); POTASSIUM 4.4 mmol/L (3.6-5.0)
[2017-09-06 07:31] LABS: GLUCOSE 546 mg/dL (75-110)
[2017-09-06] MEDS: OXYCODONE-ACETAMINOPHEN 5-325 MG TABLET PO PRN ×3 (09:50→21:52)
[2017-09-06] MEDS: PANTOPRAZOLE SODIUM 40 MG VIAL IV SCH ×2 (09:51→21:53)
[2017-09-06] MEDS: NORMAL SALINE 1000 ML 1,000 ML IV PRN ×2 (09:52→20:52)
[2017-09-06] MEDS: CLINDAMYCIN 600 MG/D5W RTU 600 MG/50 ML RTUPB IV SCH ×2 (13:47→21:54)
--- NOTE | 2017-09-06 16:42 | PDOC PROGRESS REPORT ---
Subjective Progress Note for:: 09/06/17 Subjective:: This is a 37 years old black male patient with past medical history of recurrent DKA, uncontrolled diabetes mellitus, alcohol abuse, chronic pancreatitis and history of substance abuse, presents with hyperglycemia. Of note patient really discharged recently about 3 days ago after 10 days. Stay when he was treated for right hand cellulitis and abscess and the wound culture grew MRSA. Patient was treated with vancomycin for about 7 days and discharged home with clindamycin p.o. but patient failed to refill his medication. Patient is not in DKA. Currently his blood sugar is ranging between 200-400. Reason For Visit: MRSA HAND INFECTION, HYPERGLYCEMIA Physical Exam Vital Signs: Temp Pulse Resp BP Pulse Ox 97.4 F 93 15 110/72 100 09/06/17 12:00 09/06/17 12:00 09/06/17 16:00 09/06/17 15:57 09/06/17 16:00 Intake & Output 09/05/17 09/06/17 09/07/17 06:59 06:59 06:59 Intake Total 400 Output Total 1800 Balance -1800 400 Weight 64.6 kg General appearance: PRESENT: no acute distress Head exam: PRESENT: atraumatic Mouth exam: PRESENT: moist Respiratory exam: PRESENT: clear to auscultation alfonso. ABSENT: rales, rhonchi, wheezes Cardiovascular exam: PRESENT: RRR. ABSENT: diastolic murmur, rubs, systolic murmur GI/Abdominal exam: PRESENT: normal bowel sounds, soft. ABSENT: distended, guarding, mass, organolmegaly, rebound, tenderness Extremities exam: PRESENT: full ROM, other - Right hand swelling and tenderness.. ABSENT: calf tenderness, clubbing, pedal edema Results Laboratory Results: 09/06/17 04:17 09/06/17 04:17 09/05/17 09/05/17 09/06/17 23:50 23:50 00:35 WBC 6.8 RBC 3.43 L Hgb 8.3 L Hct 26.4 L MCV 77 L MCH 24.0 L MCHC 31.3 L RDW 19.9 H Plt Count 476 H Sodium 135.9 L Potassium 5.0 Chloride 100 Carbon Dioxide 23 Anion Gap 13 BUN 30 H Creatinine 0.98 Est GFR ( Amer) > 60 Est GFR (Non-Af Amer) > 60 Glucose 546 H* Lactic Acid 1.8 Calcium 8.6 09/06/17 09/06/17 04:17 04:17 WBC 6.0 RBC 3.44 L Hgb 8.1 L Hct 25.6 L MCV 75 L MCH 23.6 L MCHC 31.7 L RDW 19.1 H Plt Count 476 H Sodium 143.0 Potassium 4.4 Chloride 107 Carbon Dioxide 25 Anion Gap 11 BUN 28 H Creatinine 0.79 Est GFR ( Amer) > 60 Est GFR (Non-Af Amer) > 60 Glucose 127 H Lactic Acid Calcium 9.1 Assessment & Plan - Diagnosis (1) Hyperglycemia Is this a current diagnosis for this admission?: Yes Plan: I will continue his home medication which includes Lantus 35 units every morning and 40 5 PM. I will put him also on sliding scale (2) Healing cellulitis of right hand Is this a current diagnosis for this admission?: Yes Plan: Patient has been started empirically on clindamycin by his admitting physician. And I will continue the same antibiotics. (3) Chronic pancreatitis Qualifiers: Pancreatitis type: alcohol induced Qualified Code(s): K86.0 - Alcohol- induced chronic pancreatitis Is this a current diagnosis for this admission?: Yes Plan: No abdominal pain currently. (4) Uncontrolled diabetes mellitus Is this a current diagnosis for this admission?: Yes Plan: Plan as #1 (5) Alcohol abuse Is this a current diagnosis for this admission?: Yes Plan: Patient encouraged to stay sober (6) History of polysubstance abuse Is this a current diagnosis for this admission?: Yes Plan: Patient claimed he is currently clean
[2017-09-06] MEDS ORDERED: INSULIN LISPRO 100 UNIT/ML 3 ML VIAL SUBCUT ONE (17:30)
[2017-09-06] MEDS ORDERED: INSULIN GLARGINE,HUM.REC.ANLOG 300 UNIT/3 ML INSULN.PEN SUBCUT SCH (22:00)
[2017-09-07] MEDS ORDERED: IBUPROFEN 600 MG TABLET PO PRN (00:30)
[2017-09-07] MEDS ORDERED: PROMETHAZINE HCL INJ 25 MG/1 ML VIAL IV ONE (02:45)
[2017-09-07] MEDS: OXYCODONE-ACETAMINOPHEN 5-325 MG TABLET PO PRN ×4 (02:57→20:29)
[2017-09-07] MEDS: NORMAL SALINE 1000 ML 1,000 ML IV PRN ×2 (05:48→17:40)
[2017-09-07] MEDS: CLINDAMYCIN 600 MG/D5W RTU 600 MG/50 ML RTUPB IV SCH ×3 (05:49→21:22)
[2017-09-07 07:09] LABS: HEMATOCRIT 27.8 % (37.9-51.0); HEMOGLOBIN 8.5 g/dL (13.5-17.0); MEAN CORPUSCULAR HEMOGLOBIN 23.6 pg (27.0-33.4); MEAN CORPUSCULAR HGB CONC 30.6 g/dL (32.0-36.0); MEAN CORPUSCULAR VOLUME 77 fl (80-97); PLATELET COUNT 473 10^3/uL (150-450); RED CELL DISTRIBUTION WIDTH 19.5 % (11.5-14.0); WHITE BLOOD COUNT 7.5 10^3/uL (4.0-10.5)
[2017-09-07 07:46] LABS: ANION GAP 10 (5-19); BLOOD UREA NITROGEN 23 mg/dL (7-20); CALCIUM 8.7 mg/dL (8.4-10.2); CARBON DIOXIDE 17 mmol/L (22-30); CHLORIDE 110 mmol/L (98-107); SODIUM 136.8 mmol/L (137-145)
[2017-09-07 07:55] LABS: GLUCOSE 504 mg/dL (75-110); POTASSIUM 6.3 mmol/L (3.6-5.0)
[2017-09-07] MEDS ORDERED: INSULIN LISPRO 100 UNIT/ML 3 ML VIAL SUBCUT SCH (08:00)
[2017-09-07] MEDS ORDERED: SODIUM BICARBONATE 8.4% INJ 50 MEQ/50 ML DISP.SYRIN IV ONE (09:00)
[2017-09-07] MEDS: INSULIN GLARGINE,HUM.REC.ANLOG 300 UNIT/3 ML INSULN.PEN SUBCUT SCH ×2 (09:44→21:22)
[2017-09-07] MEDS ORDERED: INSULIN LISPRO 100 UNIT/ML 3 ML VIAL SUBCUT ONE ×2 (10:00→12:45)
[2017-09-07] MEDS ORDERED: SODIUM POLYSTYRENE SULFONATE 15 GM/60 ML PO ONE (10:00)
[2017-09-07] MEDS: INSULIN LISPRO 100 UNIT/ML 3 ML VIAL SUBCUT PRN ×3 (12:32→21:21)
[2017-09-07] MEDS: PANTOPRAZOLE SODIUM 40 MG VIAL IV SCH ×2 (12:33→21:22)
--- NOTE | 2017-09-07 14:31 | PDOC PROGRESS REPORT ---
Subjective Subjective:: his is a 37 years old black male patient with past medical history of recurrent DKA, uncontrolled diabetes mellitus, alcohol abuse, chronic pancreatitis and history of substance abuse, presents with hyperglycemia. Of note patient discharged about 3 days ago after 10 days hospital stay when he was treated for right hand cellulitis and abscess and the wound culture grew MRSA. Patient was treated with vancomycin for about 7 days and discharged home with clindamycin p.o. but patient failed to refill his medication. Currently patient is not in DKA except for hyperglycemia. This morning I seen patient sitting up at the bedside and enjoying his breakfast. His blood work shows hyperkalemia with potassium of 6.3 and blood glucose of 504. He was given 25 units of Humalog and Kayexalate and bicarb for his hyperkalemia. Reason For Visit: MRSA HAND INFECTION, HYPERGLYCEMIA Physical Exam Vital Signs: Temp Pulse Resp BP Pulse Ox 98.6 F 93 16 90/55 L 100 09/07/17 11:17 09/07/17 11:17 09/07/17 11:17 09/07/17 11:17 09/07/17 11:17 Intake & Output 09/06/17 09/07/17 09/08/17 06:59 06:59 06:59 Intake Total 3330 Output Total 1800 800 Balance -1800 2530 Weight 64.6 kg General appearance: PRESENT: no acute distress Eye exam: PRESENT: conjunctiva pink Mouth exam: PRESENT: moist Neck exam: ABSENT: carotid bruit, JVD, lymphadenopathy, thyromegaly Respiratory exam: PRESENT: clear to auscultation alofnso. ABSENT: rales, rhonchi, wheezes Cardiovascular exam: PRESENT: RRR. ABSENT: diastolic murmur, rubs, systolic murmur GI/Abdominal exam: PRESENT: normal bowel sounds, soft. ABSENT: distended, guarding, mass, organolmegaly, rebound, tenderness Neurological exam: PRESENT: alert, awake, oriented to time, oriented to situation Results Laboratory Results: 09/07/17 06:37 09/07/17 06:37 09/07/17 09/07/17 06:37 06:37 WBC 7.5 RBC 3.60 L Hgb 8.5 L Hct 27.8 L MCV 77 L MCH 23.6 L MCHC 30.6 L RDW 19.5 H Plt Count 473 H Sodium 136.8 L Potassium 6.3 H* Chloride 110 H Carbon Dioxide 17 L Anion Gap 10 BUN 23 H Creatinine 1.08 Est GFR ( Amer) > 60 Est GFR (Non-Af Amer) > 60 Glucose 504 H* Calcium 8.7 Assessment & Plan - Diagnosis (1) Hyperglycemia Is this a current diagnosis for this admission?: Yes Plan: Continue current regimen (2) Healing cellulitis of right hand Is this a current diagnosis for this admission?: Yes Plan: Patient has been started empirically on clindamycin by his admitting physician. And I will continue the same antibiotics. (3) Chronic pancreatitis Qualifiers: Pancreatitis type: alcohol induced Qualified Code(s): K86.0 - Alcohol- induced chronic pancreatitis Is this a current diagnosis for this admission?: Yes Plan: No abdominal pain currently. (4) Uncontrolled diabetes mellitus Is this a current diagnosis for this admission?: Yes Plan: Plan as #1 (5) Alcohol abuse Is this a current diagnosis for this admission?: Yes Plan: Patient encouraged to stay sober (6) History of polysubstance abuse Is this a current diagnosis for this admission?: Yes Plan: Patient claimed he is currently clean
[2017-09-07] MEDS: IBUPROFEN 600 MG TABLET PO SCH ×2 (15:33→21:21)
[2017-09-07] MEDS ORDERED: CLINDAMYCIN 600 MG/D5W RTU 600 MG/50 ML RTUPB IV ONE ×2 (16:00→17:15)
[2017-09-07] MEDS: INSULIN LISPRO 100 UNIT/ML 3 ML VIAL SUBCUT SCH (17:36)
[2017-09-08] MEDS: OXYCODONE-ACETAMINOPHEN 5-325 MG TABLET PO PRN ×6 (00:31→23:01)
[2017-09-08] MEDS: NORMAL SALINE 1000 ML 1,000 ML IV PRN (04:52)
[2017-09-08] MEDS: IBUPROFEN 600 MG TABLET PO SCH ×3 (04:59→22:41)
[2017-09-08] MEDS: CLINDAMYCIN 600 MG/D5W RTU 600 MG/50 ML RTUPB IV SCH ×3 (05:00→22:41)
[2017-09-08 06:30] LABS: HEMATOCRIT 24.3 % (37.9-51.0); MEAN CORPUSCULAR HEMOGLOBIN 23.8 pg (27.0-33.4); MEAN CORPUSCULAR HGB CONC 31.3 g/dL (32.0-36.0); MEAN CORPUSCULAR VOLUME 76 fl (80-97); PLATELET COUNT 462 10^3/uL (150-450); RED CELL DISTRIBUTION WIDTH 19.5 % (11.5-14.0); WHITE BLOOD COUNT 6.1 10^3/uL (4.0-10.5)
[2017-09-08 06:32] LABS: HEMOGLOBIN 7.6 g/dL (13.5-17.0)
[2017-09-08 06:49] LABS: ANION GAP 10 (5-19); BLOOD UREA NITROGEN 29 mg/dL (7-20); CALCIUM 8.8 mg/dL (8.4-10.2); CARBON DIOXIDE 17 mmol/L (22-30); CHLORIDE 111 mmol/L (98-107); GLUCOSE 394 mg/dL (75-110); POTASSIUM 5.7 mmol/L (3.6-5.0); SODIUM 137.8 mmol/L (137-145)
[2017-09-08] MEDS: INSULIN LISPRO 100 UNIT/ML 3 ML VIAL SUBCUT PRN ×3 (07:36→18:14)
[2017-09-08] MEDS: PANTOPRAZOLE SODIUM 40 MG VIAL IV SCH ×2 (09:58→22:45)
[2017-09-08] MEDS: INSULIN GLARGINE,HUM.REC.ANLOG 300 UNIT/3 ML INSULN.PEN SUBCUT SCH ×2 (10:06→22:42)
[2017-09-08] MEDS: INSULIN LISPRO 100 UNIT/ML 3 ML VIAL SUBCUT SCH ×3 (10:06→18:14)
[2017-09-08] MEDS ORDERED: INSULIN LISPRO 100 UNIT/ML 3 ML VIAL SUBCUT ONE (13:00)
[2017-09-08] MEDS ORDERED: NORMAL SALINE 250 ML IV PRN ×2 (14:39)
--- NOTE | 2017-09-08 14:39 | PDOC PROGRESS REPORT ---
Subjective Progress Note for:: 09/08/17 Subjective:: I seen patient resting in bed comfortably. He is not in pain or distress. No fever, nausea, vomiting or abdominal pain. He is eating well. His blood sugar is ranging between 204 120. And his hemoglobin from 9.1-7.6. Might be dilutional. Reason For Visit: MRSA HAND INFECTION, HYPERGLYCEMIA Physical Exam Vital Signs: Temp Pulse Resp BP Pulse Ox 97.7 F 101 H 12 106/66 100 09/08/17 11:25 09/08/17 11:25 09/08/17 11:25 09/08/17 11:25 09/08/17 11:25 Intake & Output 09/07/17 09/08/17 09/09/17 06:59 06:59 06:59 Intake Total 3380 4132 650 Output Total 800 Balance 2580 4132 650 Weight 65 kg General appearance: PRESENT: no acute distress Eye exam: PRESENT: conjunctiva pink Respiratory exam: PRESENT: clear to auscultation alfonso. ABSENT: rales, rhonchi, wheezes Cardiovascular exam: PRESENT: RRR. ABSENT: diastolic murmur, rubs, systolic murmur GI/Abdominal exam: PRESENT: normal bowel sounds, soft. ABSENT: distended, guarding, mass, organolmegaly, rebound, tenderness Neurological exam: PRESENT: alert, oriented to situation Results Laboratory Results: 09/08/17 06:19 09/08/17 06:19 09/08/17 09/08/17 06:19 06:19 WBC 6.1 RBC 3.20 L Hgb 7.6 L Hct 24.3 L MCV 76 L MCH 23.8 L MCHC 31.3 L RDW 19.5 H Plt Count 462 H Sodium 137.8 Potassium 5.7 H Chloride 111 H Carbon Dioxide 17 L Anion Gap 10 BUN 29 H Creatinine 1.38 H Est GFR ( Amer) > 60 Est GFR (Non-Af Amer) 59 L Glucose 394 H Calcium 8.8 Assessment & Plan - Diagnosis (1) Normocytic anemia Is this a current diagnosis for this admission?: Yes Plan: His hemoglobin dropped from 9.1-7.6. Probably dilutional. I transfuse he was evaluated of packed RBC (2) Hyperglycemia Is this a current diagnosis for this admission?: Yes Plan: Increased so dose of his pre-meal lispro to 10 units. (3) Healing cellulitis of right hand Is this a current diagnosis for this admission?: Yes Plan: Patient has been started empirically on clindamycin by his admitting physician. And I will continue the same antibiotics. (4) Chronic pancreatitis Qualifiers: Pancreatitis type: alcohol induced Qualified Code(s): K86.0 - Alcohol- induced chronic pancreatitis Is this a current diagnosis for this admission?: Yes Plan: No abdominal pain currently. (5) Uncontrolled diabetes mellitus Is this a current diagnosis for this admission?: Yes Plan: Plan as #1 (6) Alcohol abuse Is this a current diagnosis for this admission?: Yes Plan: Patient encouraged to stay sober (7) History of polysubstance abuse Is this a current diagnosis for this admission?: Yes Plan: Patient claimed he is currently clean
[2017-09-09 00:59] LABS: ABSOLUTE BASOPHILS # (AUTO) 0.2 10^3/uL (0.0-0.2); ABSOLUTE EOSINOPHILS # (AUTO) 0.2 10^3/uL (0.0-0.6); ABSOLUTE LYMPHOCYTES (AUTO) 2.5 10^3/uL (0.5-4.7); ABSOLUTE MONOCYTES (AUTO) 0.6 10^3/uL (0.1-1.4); ABSOLUTE NEUT (AUTO) 4.3 10^3/uL (1.7-8.2); BASOPHILS % (AUTO) 2.4 % (0-2); EOSINOPHILS % (AUTO) 2.6 % (0-6); HEMATOCRIT 26.4 % (37.9-51.0); HEMOGLOBIN 8.1 g/dL (13.5-17.0); LYMPHOCYTES % (AUTO) 31.6 % (13-45); MEAN CORPUSCULAR HGB CONC 30.8 g/dL (32.0-36.0); MEAN CORPUSCULAR VOLUME 78 fl (80-97); MONOCYTES % (AUTO) 8.1 % (3-13); PLATELET COUNT 401 10^3/uL (150-450); RED CELL DISTRIBUTION WIDTH 19.5 % (11.5-14.0); SEGMENTED NEUTROPHILS % (AUTO) 55.3 % (42-78); TOTAL CELLS COUNTED % (AUTO) 100 %; WHITE BLOOD COUNT 7.8 10^3/uL (4.0-10.5)
[2017-09-09] MEDS: OXYCODONE-ACETAMINOPHEN 5-325 MG TABLET PO PRN ×5 (03:21→19:32)
[2017-09-09] MEDS: CLINDAMYCIN 600 MG/D5W RTU 600 MG/50 ML RTUPB IV SCH ×3 (05:52→22:22)
[2017-09-09] MEDS: IBUPROFEN 600 MG TABLET PO SCH ×3 (06:56→22:20)
[2017-09-09 06:57] LABS: HEMATOCRIT 24.9 % (37.9-51.0); MEAN CORPUSCULAR HEMOGLOBIN 24.5 pg (27.0-33.4); MEAN CORPUSCULAR HGB CONC 31.7 g/dL (32.0-36.0); MEAN CORPUSCULAR VOLUME 77 fl (80-97); PLATELET COUNT 393 10^3/uL (150-450); RED BLOOD COUNT 3.22 10^6/uL (4.35-5.55); RED CELL DISTRIBUTION WIDTH 19.4 % (11.5-14.0); WHITE BLOOD COUNT 7.3 10^3/uL (4.0-10.5)
[2017-09-09 07:11] LABS: ANION GAP 9 (5-19); BLOOD UREA NITROGEN 27 mg/dL (7-20); CALCIUM 8.7 mg/dL (8.4-10.2); CARBON DIOXIDE 18 mmol/L (22-30); CHLORIDE 112 mmol/L (98-107); GLUCOSE 241 mg/dL (75-110); POTASSIUM 5.2 mmol/L (3.6-5.0); SODIUM 139.3 mmol/L (137-145)
[2017-09-09 07:20] LABS: HEMOGLOBIN 7.9 g/dL (13.5-17.0)
[2017-09-09] MEDS: INSULIN LISPRO 100 UNIT/ML 3 ML VIAL SUBCUT SCH ×3 (08:19→17:13)
[2017-09-09] MEDS: INSULIN GLARGINE,HUM.REC.ANLOG 300 UNIT/3 ML INSULN.PEN SUBCUT SCH ×2 (08:19→22:20)
[2017-09-09] MEDS ORDERED: SODIUM POLYSTYRENE SULFONATE 15 GM/60 ML PO ONE (10:57)
--- NOTE | 2017-09-09 17:01 | PDOC PROGRESS REPORT ---
Subjective Subjective:: his is a 37 years old black male patient with past medical history of recurrent DKA, uncontrolled diabetes mellitus, alcohol abuse, chronic pancreatitis and history of substance abuse, presents with hyperglycemia. Of note patient really discharged recently about 3 days ago after 10 days. Stay when he was treated for right hand cellulitis and abscess and the wound culture grew MRSA. Patient was treated with vancomycin for about 7 days and discharged home with clindamycin p.o. but patient failed to refill his medication. Patient is not in DKA. Patient has been started on IV clindamycin by the admitting physician. Yesterday his hemoglobin dropped to 7.1 for which she got 1 unit of blood and this morning hemoglobin bumped up to 7.9. Patient is supposed to be discharged today but is a stool for occult blood positive so the discharge is canceled. I consulted Dr. Arredondo who evaluated the patient and scheduled him for possible endoscopy. Reason For Visit: MRSA HAND INFECTION, HYPERGLYCEMIA Physical Exam Vital Signs: Temp Pulse Resp BP Pulse Ox 98.2 F 98 16 114/66 100 09/09/17 11:20 09/09/17 11:20 09/09/17 11:20 09/09/17 11:20 09/09/17 11:20 Intake & Output 09/08/17 09/09/17 09/10/17 06:59 06:59 06:59 Intake Total 4132 3766 1050 Output Total 5 Balance 4132 3761 1050 Weight 65 kg 65.2 kg General appearance: PRESENT: no acute distress, well-developed, well-nourished Head exam: PRESENT: atraumatic, normocephalic Eye exam: PRESENT: conjunctiva pink, EOMI, PERRLA. ABSENT: scleral icterus Ear exam: PRESENT: normal external ear exam Mouth exam: PRESENT: moist, tongue midline Neck exam: ABSENT: carotid bruit, JVD, lymphadenopathy, thyromegaly Respiratory exam: PRESENT: clear to auscultation alfonso. ABSENT: rales, rhonchi, wheezes Cardiovascular exam: PRESENT: RRR. ABSENT: diastolic murmur, rubs, systolic murmur Pulses: PRESENT: normal dorsalis pedis pul Vascular exam: PRESENT: normal capillary refill GI/Abdominal exam: PRESENT: normal bowel sounds, soft. ABSENT: distended, guarding, mass, organolmegaly, rebound, tenderness Rectal exam: PRESENT: deferred Extremities exam: PRESENT: full ROM. ABSENT: calf tenderness, clubbing, pedal edema Neurological exam: PRESENT: alert, awake, oriented to person, oriented to place , oriented to time, oriented to situation, CN II-XII grossly intact. ABSENT: motor sensory deficit Psychiatric exam: PRESENT: appropriate affect, normal mood. ABSENT: homicidal ideation, suicidal ideation Skin exam: PRESENT: dry, intact, warm. ABSENT: cyanosis, rash Results Laboratory Results: 09/09/17 06:00 09/09/17 06:00 09/08/17 09/09/17 09/09/17 15:25 00:38 06:00 WBC 7.8 7.3 RBC 3.40 L 3.22 L Hgb 8.1 L 7.9 L Hct 26.4 L 24.9 L MCV 78 L 77 L MCH 24.0 L 24.5 L MCHC 30.8 L 31.7 L RDW 19.5 H 19.4 H Plt Count 401 393 Seg Neutrophils % 55.3 Lymphocytes % 31.6 Monocytes % 8.1 Eosinophils % 2.6 Basophils % 2.4 H Absolute Neutrophils 4.3 Absolute Lymphocytes 2.5 Absolute Monocytes 0.6 Absolute Eosinophils 0.2 Absolute Basophils 0.2 Sodium Potassium Chloride Carbon Dioxide Anion Gap BUN Creatinine Est GFR ( Amer) Est GFR (Non-Af Amer) Glucose Calcium Stool Occult Blood Blood Type A POSITIVE Antibody Screen NEGATIVE 09/09/17 09/09/17 06:00 14:12 WBC RBC Hgb Hct MCV MCH MCHC RDW Plt Count Seg Neutrophils % Lymphocytes % Monocytes % Eosinophils % Basophils % Absolute Neutrophils Absolute Lymphocytes Absolute Monocytes Absolute Eosinophils Absolute Basophils Sodium 139.3 Potassium 5.2 H Chloride 112 H Carbon Dioxide 18 L Anion Gap 9 BUN 27 H Creatinine 1.16 Est GFR ( Amer) > 60 Est GFR (Non-Af Amer) > 60 Glucose 241 H Calcium 8.7 Stool Occult Blood POSITIVE Blood Type Antibody Screen Assessment & Plan - Diagnosis (1) Normocytic anemia Is this a current diagnosis for this admission?: Yes Plan: Status post packed RBC transfusion. Possible blood loss anemia based on his positive stool occult blood. General surgeon consulted for possible endoscopy. (2) Hyperglycemia Is this a current diagnosis for this admission?: Yes Plan: Increased so dose of his pre-meal lispro to 10 units. (3) Healing cellulitis of right hand Is this a current diagnosis for this admission?: Yes Plan: Patient has been started empirically on clindamycin by his admitting physician. And I will continue the same antibiotics. (4) Chronic pancreatitis Qualifiers: Pancreatitis type: alcohol induced Qualified Code(s): K86.0 - Alcohol- induced chronic pancreatitis Is this a current diagnosis for this admission?: Yes Plan: No abdominal pain currently. (5) Uncontrolled diabetes mellitus Is this a current diagnosis for this admission?: Yes Plan: Plan as #1 (6) Alcohol abuse Is this a current diagnosis for this admission?: Yes Plan: Patient encouraged to stay sober (7) History of polysubstance abuse Is this a current diagnosis for this admission?: Yes Plan: Patient claimed he is currently clean
--- NOTE | 2017-09-09 17:51 | PDOC CONSULTATION ---
Consultation Consult Date: 09/09/17 Attending physician:: DENVER SOLER Consult reason:: Rule out GI bleeding History of Present Illness Admission Date/PCP: 09/05/17 23:26 History of Present Illness: CHESTER MCKEON is a 37 year old male Presents emergency department complaining of weakness, fever, profound hyperglycemia, and hyperkalemia. Patient was admitted to the hospitalist service for management of multiple medical problems. He is status post debridement hand infection by Dr. Long growing MRSA. Patient was admitted with anemia, which is a chronic problem, and underwent blood transfusion with insufficient rise in his hemoglobin. Stool check for occult blood which was positive. According to the patient has a long history of GI bleeding, most recently April 2017. Patient underwent upper endoscopy by Dr. Mendoza and [facility] and was found to have acute lower esophageal bleeding from diffuse ulceration. The patient was sent to [facility] where he underwent upper and lower endoscopy on 2 occasions with findings of esophagitis, gastroparesis. Eventually the bleeding abated. Patient is unaware of his total blood transfusion volume. States his current symptoms are abdominal pain, but not the bloody stools he was having 4 months ago. Past Medical History Cardiac Medical History: Reports: Hyperlipidema, Hypertension - Taken off medication for same. Denies: Atrial Fibrillation, Congestive Heart Failure, Coronary Artery Disease, Myocardial Infarction, Pulmonary Embolism Pulmonary Medical History: Denies: Asthma, Chronic Obstructive Pulmonary Disease (COPD), Sleep Apnea EENT Medical History: Denies: Eyes Neurological Medical History: Denies: Seizures Endocrine Medical History: Reports: Diabetes Mellitus Type 1, Diabetes Mellitus Type 2 Denies: Hyperthyroidism, Hypothyroidism, Obesity Renal/ Medical History: Denies: End Stage Renal Disease Malignancy Medical History: Denies: None GI Medical History: Reports: Gastroesophageal Reflux Disease Denies: Cirrhosis, Hepatitis Musculoskeltal Medical History: Denies: Arthritis Psychiatric Medical History: Reports: Depression Denies: Substance Abuse Hematology: Reports: Anemia - Chronic illnesses Infectious Medical History: Reports: Methicillin-Resistant Staph Aureus Past Surgical History Past Surgical History: Reports: Orthopedic Surgery - back, left long finger PIP disarticulation, now s/p right hand I and D Denies: Appendectomy, Cholecystectomy, Tonsillectomy Social History Lives with: Alone Smoking Status: Former Smoker Frequency of Alcohol Use: None Hx Recreational Drug Use: Yes Drugs: Marijuana Hx Prescription Drug Abuse: Yes - Advance Directive Resuscitation Status: Full Code Family History Family History: DM, Hyperlipidemia, Hypertension Parental Family History Reviewed: Yes Children Family History Reviewed: Yes Sibling(s) Family History Reviewed.: Yes Medication/Allergy Home Medications: Insulin Glargine,Hum.rec.anlog [Lantus Insulin 100 Unit/1 ml 10 ml] 35 units SQ DAILY 08/26/17 Insulin Lispro [Humalog Insulin (Lispro) 100 unit/mL] See Protocol SQ ACHS 08/26 Ferrous Sulfate 325 mg PO BID #60 tablet 09/09/17 Allergies/Adverse Reactions: ondansetron [From Zofran (as hydrochloride)] Allergy (Verified 08/26/17 15:45) Review of Systems Constitutional: PRESENT: as per HPI Nose, Mouth, and Throat: PRESENT: as per HPI Cardiovascular: PRESENT: as per HPI Gastrointestinal: PRESENT: other - As per HPI Physical Exam Vital Signs: Temp Pulse Resp BP Pulse Ox 97.8 F 74 16 131/89 H 88 L 09/09/17 16:02 09/09/17 16:02 09/09/17 16:02 09/09/17 16:02 09/09/17 16:02 Intake & Output 09/08/17 09/09/17 09/10/17 06:59 06:59 06:59 Intake Total 4132 3766 1050 Output Total 5 Balance 4132 3761 1050 Weight 65 kg 65.2 kg General appearance: PRESENT: no acute distress Head exam: PRESENT: normocephalic Eye exam: PRESENT: EOMI Mouth exam: PRESENT: dry mucosa Respiratory exam: PRESENT: clear to auscultation alfonso Cardiovascular exam: PRESENT: RRR Pulses: PRESENT: normal carotid pulses, normal radial pulses, normal femoral pulses GI/Abdominal exam: PRESENT: other - Diffuse abdominal tenderness but no peritoneal signs no rigidity no guarding Results Laboratory Results: 09/09/17 06:00 09/09/17 06:00 09/08/17 09/09/17 09/09/17 15:25 00:38 06:00 WBC 7.8 7.3 RBC 3.40 L 3.22 L Hgb 8.1 L 7.9 L Hct 26.4 L 24.9 L MCV 78 L 77 L MCH 24.0 L 24.5 L MCHC 30.8 L 31.7 L RDW 19.5 H 19.4 H Plt Count 401 393 Seg Neutrophils % 55.3 Lymphocytes % 31.6 Monocytes % 8.1 Eosinophils % 2.6 Basophils % 2.4 H Absolute Neutrophils 4.3 Absolute Lymphocytes 2.5 Absolute Monocytes 0.6 Absolute Eosinophils 0.2 Absolute Basophils 0.2 Sodium Potassium Chloride Carbon Dioxide Anion Gap BUN Creatinine Est GFR ( Amer) Est GFR (Non-Af Amer) Glucose Calcium Stool Occult Blood Blood Type A POSITIVE Antibody Screen NEGATIVE 09/09/17 09/09/17 06:00 14:12 WBC RBC Hgb Hct MCV MCH MCHC RDW Plt Count Seg Neutrophils % Lymphocytes % Monocytes % Eosinophils % Basophils % Absolute Neutrophils Absolute Lymphocytes Absolute Monocytes Absolute Eosinophils Absolute Basophils Sodium 139.3 Potassium 5.2 H Chloride 112 H Carbon Dioxide 18 L Anion Gap 9 BUN 27 H Creatinine 1.16 Est GFR ( Amer) > 60 Est GFR (Non-Af Amer) > 60 Glucose 241 H Calcium 8.7 Stool Occult Blood POSITIVE Blood Type Antibody Screen Assessment & Plan - Diagnosis (1) Acute GI bleeding Is this a current diagnosis for this admission?: Yes Plan: Currently unclear whether the patient is actively having GI bleeding; he has bled in the past from distal esophagitis. Recommendations: 1. Obtain medical records from [facility] 2. Support patient accordingly with blood transfusions 3. Patient may require transfer back to [facility] if GI bleeding continues. 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 (6) Healing cellulitis of right hand Is this a current diagnosis for this admission?: Yes (7) Hyperglycemia Is this a current diagnosis for this admission?: Yes - Time Time Spent: 30 to 50 Minutes Smoking Cessation Education: 3 to 10 minutes Anticipated discharge: Home - Inpatient Certification Based on my medical assessment, after consideration of the patient's comorbidities, presenting symptoms, or acuity I expect that the services needed warrant INPATIENT care.: Yes I certify that my determination is in accordance with my understanding of Medicare's requirements for reasonable and necessary INPATIENT services [42 CFR 412.3e].: Yes
[2017-09-09] MEDS: INSULIN LISPRO 100 UNIT/ML 3 ML VIAL SUBCUT PRN (22:21)
[2017-09-09] MEDS: NORMAL SALINE 1000 ML 1,000 ML IV PRN (22:29)
[2017-09-10] MEDS: OXYCODONE-ACETAMINOPHEN 5-325 MG TABLET PO PRN ×6 (00:13→21:55)
[2017-09-10] MEDS: IBUPROFEN 600 MG TABLET PO SCH (06:24)
[2017-09-10] MEDS: CLINDAMYCIN 600 MG/D5W RTU 600 MG/50 ML RTUPB IV SCH ×3 (06:24→21:56)
[2017-09-10] MEDS: INSULIN LISPRO 100 UNIT/ML 3 ML VIAL SUBCUT SCH ×3 (08:46→18:38)
[2017-09-10] MEDS: INSULIN GLARGINE,HUM.REC.ANLOG 300 UNIT/3 ML INSULN.PEN SUBCUT SCH ×2 (08:57→21:52)
--- NOTE | 2017-09-10 10:21 | PDOC PROGRESS REPORT ---
Subjective Progress Note for:: 09/10/17 Subjective:: mild epigastric pains Had normal non bloody BM yesterday according to the patient. No BM today Reason For Visit: MRSA HAND INFECTION, HYPERGLYCEMIA Physical Exam Vital Signs: Temp Pulse Resp BP Pulse Ox 98.2 F 96 16 110/64 100 09/10/17 07:34 09/10/17 07:34 09/10/17 07:34 09/10/17 07:34 09/10/17 07:34 Intake & Output 09/09/17 09/10/17 09/11/17 06:59 06:59 06:59 Intake Total 3766 1838 50 Output Total 5 Balance 3761 1838 50 Weight 65.2 kg 62.2 kg Exam: abdomen is soft with mild epigastric tenderness. Apparently has this chronic abdominal discomfort. The right hand dressing was changed. The I&D site appears to be healing well. + MRSA Redressed. Still not able to flex right thumb well.Some mild tenderness around right thenar muscle Results Laboratory Results: 09/09/17 06:00 09/09/17 06:00 09/09/17 14:12 Stool Occult Blood POSITIVE Assessment & Plan - Time Time Spent with patient: 15-24 minutes - Plan Summary Plan Summary: His HB stable at 7.9 Check records from [facility] where he had upper and lower endoscopy.
[2017-09-10 11:11] LABS: MEAN CORPUSCULAR HEMOGLOBIN 24.3 pg (27.0-33.4); MEAN CORPUSCULAR VOLUME 76 fl (80-97); PLATELET COUNT 519 10^3/uL (150-450); RED BLOOD COUNT 3.69 10^6/uL (4.35-5.55); RED CELL DISTRIBUTION WIDTH 19.6 % (11.5-14.0); WHITE BLOOD COUNT 7.2 10^3/uL (4.0-10.5)
[2017-09-10 11:30] LABS: ANION GAP 11 (5-19); BLOOD UREA NITROGEN 27 mg/dL (7-20); CALCIUM 9.5 mg/dL (8.4-10.2); CARBON DIOXIDE 20 mmol/L (22-30); CHLORIDE 112 mmol/L (98-107); GLUCOSE 96 mg/dL (75-110); POTASSIUM 5.1 mmol/L (3.6-5.0); SODIUM 143.4 mmol/L (137-145)
[2017-09-10] MEDS: PANTOPRAZOLE SODIUM 40 MG VIAL IV SCH ×2 (11:56→22:04)
[2017-09-10] MEDS: INSULIN LISPRO 100 UNIT/ML 3 ML VIAL SUBCUT PRN (12:57)
--- NOTE | 2017-09-10 14:10 | PDOC PROGRESS REPORT ---
Subjective Progress Note for:: 09/10/17 - seen on rounds this morning Subjective:: states he has pain of his right thumb. he states he has c. diff. Reason For Visit: MRSA HAND INFECTION, HYPERGLYCEMIA Physical Exam Vital Signs: Temp Pulse Resp BP Pulse Ox 97.7 F 95 16 126/84 H 100 09/10/17 11:42 09/10/17 11:42 09/10/17 11:42 09/10/17 11:42 09/10/17 11:42 Intake & Output 09/09/17 09/10/17 09/11/17 06:59 06:59 06:59 Intake Total 3766 1838 50 Output Total 5 Balance 3761 1838 50 Weight 143 lb 11.862 oz 137 lb 2.04 oz General appearance: PRESENT: no acute distress, thin Head exam: PRESENT: atraumatic, normocephalic Eye exam: PRESENT: EOMI, PERRLA. ABSENT: scleral icterus Ear exam: PRESENT: normal external ear exam Mouth exam: PRESENT: neck supple, tongue midline Neck exam: PRESENT: full ROM. ABSENT: tenderness Respiratory exam: PRESENT: clear to auscultation alfonso, symmetrical. ABSENT: decreased breath sounds Cardiovascular exam: PRESENT: RRR, +S1, +S2 Pulses: PRESENT: +2 pedal pulses bilateral GI/Abdominal exam: PRESENT: normal bowel sounds, soft, tenderness - mininmal diffuse TTP of all quadrant- more so epigastric Extremities exam: ABSENT: +2 edema Musculoskeletal exam: PRESENT: full ROM. ABSENT: tenderness Neurological exam: PRESENT: alert, awake, oriented to person, oriented to place , oriented to time, CN II-XII grossly intact Skin exam: PRESENT: other - right thumb- open wound noted- no discharge/drainage , mild TTP, sutures noted, sensation intact, radial pulses 2+, cap refill <2s Results Laboratory Results: 09/10/17 10:40 09/10/17 10:40 09/09/17 09/10/17 09/10/17 14:12 10:40 10:40 WBC 7.2 RBC 3.69 L Hgb 9.0 L Hct 28.0 L MCV 76 L MCH 24.3 L MCHC 32.0 RDW 19.6 H Plt Count 519 H Sodium 143.4 Potassium 5.1 H Chloride 112 H Carbon Dioxide 20 L Anion Gap 11 BUN 27 H Creatinine 1.05 Est GFR ( Amer) > 60 Est GFR (Non-Af Amer) > 60 Glucose 96 Calcium 9.5 Stool Occult Blood POSITIVE Assessment & Plan - Diagnosis (1) Acute GI bleeding Is this a current diagnosis for this admission?: Yes Plan: general surgery has been consulted on the case for possible EGD- as per their note there's no plans for EGD yet. they are awaiting results from [facility] regarding patients EGD and ?colonoscopy results. i am not sure if he' s active bleeding. he tells me he has hemorrhoids and sees [facility]. he was transfused 1u pRBCs when Hb was 7.1- today his Hb is >9. not sure if 1u would increase his Hb by 2units. i have started him on protonix IV BID at this time. since this is microcytic - will add iron to his regimen. I think he has chronic anemia and this is an acute event. will continue to closely monitor for now. (2) Healing cellulitis of right hand Is this a current diagnosis for this admission?: Yes Plan: currently on clinda- wound is healing well. he believe he had c.diff due to diarrhea- but results are negative. 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 (5) Chronic pancreatitis Qualifiers: Pancreatitis type: alcohol induced Qualified Code(s): K86.0 - Alcohol- induced chronic pancreatitis Is this a current diagnosis for this admission?: Yes Plan: stable - Plan Summary Plan Summary: if his hb remains stable without acute events - he probably discharge home in 1- 2 days on PO clinda and follow up with PCP and surgery regarding hand infection.
--- NOTE | 2017-09-10 15:42 | PDOC PROGRESS REPORT ---
Subjective Progress Note for:: 09/10/17 Subjective:: epigastric discomfort with chronic anemia Reason For Visit: MRSA HAND INFECTION, HYPERGLYCEMIA Physical Exam Vital Signs: Temp Pulse Resp BP Pulse Ox 97.7 F 95 16 126/84 H 100 09/10/17 11:42 09/10/17 11:42 09/10/17 11:42 09/10/17 11:42 09/10/17 11:42 Intake & Output 09/09/17 09/10/17 09/11/17 06:59 06:59 06:59 Intake Total 3766 1838 50 Output Total 5 Balance 3761 1838 50 Weight 65.2 kg 62.2 kg Exam: Records [facility] reviewed. Had EGD 04/19/17 which showed erosive esophagitis with blod/clots at dependent portions of stomach Repeared 04/21/17 showed mild to moderate focal esophagitis,Duodenitis with no active bleeding He was placed on Protonix. Gastric emptying study showed delayed gastric emptying. He was placed on po Reglan. Results Laboratory Results: 09/10/17 10:40 09/10/17 10:40 09/10/17 09/10/17 10:40 10:40 WBC 7.2 RBC 3.69 L Hgb 9.0 L Hct 28.0 L MCV 76 L MCH 24.3 L MCHC 32.0 RDW 19.6 H Plt Count 519 H Sodium 143.4 Potassium 5.1 H Chloride 112 H Carbon Dioxide 20 L Anion Gap 11 BUN 27 H Creatinine 1.05 Est GFR ( Amer) > 60 Est GFR (Non-Af Amer) > 60 Glucose 96 Calcium 9.5 Assessment & Plan - Time Time Spent with patient: 15-24 minutes - Plan Summary Plan Summary: He is stable right now with Hb >9 after 1 unit PRBC [facility] records reviewed. Has mild to moderate esophagitis, duodenitis . Also has delayed gastric emptying likely due to DM causing gastroparesis. If patient rebleeds may need to be transfered back to [facility] for Re- Endoscopy. Continue Protonix and if remains stable next 24-48 hr agree can be discharge with follow up at [facility] clinic
[2017-09-10] MEDS: FERROUS SULFATE 325 MG TABLET PO SCH (17:48)
[2017-09-11] MEDS: OXYCODONE-ACETAMINOPHEN 5-325 MG TABLET PO PRN ×4 (01:57→20:41)
[2017-09-11] MEDS: CLINDAMYCIN 600 MG/D5W RTU 600 MG/50 ML RTUPB IV SCH (05:29)
[2017-09-11] MEDS: INSULIN LISPRO 100 UNIT/ML 3 ML VIAL SUBCUT SCH ×5 (08:47→16:31)
[2017-09-11] MEDS: INSULIN GLARGINE,HUM.REC.ANLOG 300 UNIT/3 ML INSULN.PEN SUBCUT SCH (09:03)
[2017-09-11] MEDS: INSULIN LISPRO 100 UNIT/ML 3 ML VIAL SUBCUT PRN ×2 (09:06→16:34)
[2017-09-11] MEDS: PANTOPRAZOLE SODIUM 40 MG VIAL IV SCH ×2 (09:15→21:39)
[2017-09-11] MEDS: PROMETHAZINE HCL INJ 25 MG/1 ML VIAL IV PRN (09:23)
[2017-09-11 10:20] LABS: HEMATOCRIT 29.1 % (37.9-51.0); HEMOGLOBIN 9.1 g/dL (13.5-17.0); MEAN CORPUSCULAR HEMOGLOBIN 23.9 pg (27.0-33.4); MEAN CORPUSCULAR HGB CONC 31.2 g/dL (32.0-36.0); MEAN CORPUSCULAR VOLUME 77 fl (80-97); PLATELET COUNT 482 10^3/uL (150-450); RED CELL DISTRIBUTION WIDTH 20.4 % (11.5-14.0)
--- NOTE | 2017-09-11 12:43 | PDOC PROGRESS REPORT ---
Subjective Progress Note for:: 09/11/17 - seen on arounds this afternoon Subjective:: still having diarrhea and abdominal pain. hand pain isn't that bad Reason For Visit: MRSA HAND INFECTION, HYPERGLYCEMIA Physical Exam Vital Signs: Temp Pulse Resp BP Pulse Ox 98.1 F 99 16 102/65 100 09/11/17 12:00 09/11/17 12:00 09/11/17 12:00 09/11/17 12:00 09/11/17 12:00 Intake & Output 09/10/17 09/11/17 09/12/17 06:59 06:59 06:59 Intake Total 1838 4580 Balance 1838 4580 Weight 137 lb 2.04 oz 139 lb 15.896 oz General appearance: PRESENT: no acute distress, mild distress, thin Head exam: PRESENT: atraumatic, normocephalic Eye exam: PRESENT: EOMI, PERRLA. ABSENT: scleral icterus Mouth exam: PRESENT: neck supple, tongue midline Neck exam: ABSENT: tracheal deviation Respiratory exam: PRESENT: clear to auscultation alfonso, symmetrical. ABSENT: decreased breath sounds Cardiovascular exam: PRESENT: +S1, +S2 Pulses: PRESENT: +2 pedal pulses bilateral GI/Abdominal exam: PRESENT: normal bowel sounds, soft, tenderness - diffuse abdominal TTP. ABSENT: distended, guarding, rebound Extremities exam: ABSENT: calf tenderness, +2 edema Neurological exam: PRESENT: alert, awake, oriented to person, oriented to place , oriented to time, oriented to situation, CN II-XII grossly intact Skin exam: PRESENT: dry, warm Results Laboratory Results: 09/11/17 09:45 09/10/17 10:40 09/11/17 09:45 WBC 6.0 RBC 3.80 L Hgb 9.1 L Hct 29.1 L MCV 77 L MCH 23.9 L MCHC 31.2 L RDW 20.4 H Plt Count 482 H 09/05/17 23:50 Blood Blood Culture - Final NO GROWTH IN 5 DAYS Assessment & Plan - Diagnosis (1) Acute GI bleeding Is this a current diagnosis for this admission?: Yes Plan: general surgery has been consulted on the case for possible EGD- surgery has reviewed his records from [facility] yesterday. no EGD plans but recommends transfer if he's having active UGIB. i am not sure if he's active bleeding. he tells me he has hemorrhoids and sees [facility]. he was transfused 1u pRBCs when Hb was 7.1- today his Hb remains >9. i have started him on protonix IV BID at this time. since this is microcytic - will add iron to his regimen. I think he has chronic anemia and this is an acute event. will continue to closely monitor for now. (2) Healing cellulitis of right hand Is this a current diagnosis for this admission?: Yes Plan: currently on clinda- wound is healing well. he believe he had c.diff due to diarrhea- but results are negative. i am wondering if his diarrhea is from clinda or not. i think i may need to stop clinda if that is the case. 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 c diff neg. stool cultures neg so far. (6) Diarrhea Qualifiers: Diarrhea type: unspecified type Qualified Code(s): R19.7 - Diarrhea, unspecified Is this a current diagnosis for this admission?: Yes Plan: i am not sure if this is due to the chronic pancreatitis- c. diff is neg. stool cultures are pending. ?medication induced- on clinda now- will switch to bactrim- spoke with pharmacy this afternoon. he's been on clinda for almost 7 days now- will give another 5-7 days antibiotics- total 10-14 days
[2017-09-11] MEDS: NORMAL SALINE 1000 ML 1,000 ML IV PRN (16:36)
[2017-09-11] MEDS: FERROUS SULFATE 325 MG TABLET PO SCH (18:50)
[2017-09-11] MEDS: SULFAMETHOXAZOLE/TRIMETHOPRIM 800-160 MG TABLET PO SCH (18:50)
[2017-09-11] MEDS ORDERED: INSULIN GLARGINE,HUM.REC.ANLOG 300 UNIT/3 ML INSULN.PEN SUBCUT SCH (22:00)
[2017-09-12] MEDS: OXYCODONE-ACETAMINOPHEN 5-325 MG TABLET PO PRN ×5 (01:00→19:34)
[2017-09-12] MEDS: PROMETHAZINE HCL INJ 25 MG/1 ML VIAL IV PRN ×3 (05:53→15:06)
[2017-09-12] MEDS: SULFAMETHOXAZOLE/TRIMETHOPRIM 800-160 MG TABLET PO SCH ×2 (06:01→17:13)
[2017-09-12] MEDS: INSULIN LISPRO 100 UNIT/ML 3 ML VIAL SUBCUT PRN ×2 (07:32→16:38)
[2017-09-12] MEDS ORDERED: INSULIN GLARGINE,HUM.REC.ANLOG 300 UNIT/3 ML INSULN.PEN SUBCUT SCH (08:00)
[2017-09-12] MEDS: INSULIN LISPRO 100 UNIT/ML 3 ML VIAL SUBCUT SCH ×3 (09:37→16:44)
[2017-09-12] MEDS ORDERED: INSULIN LISPRO 100 UNIT/ML 3 ML VIAL SUBCUT ONE (10:00)
[2017-09-12] MEDS: PANTOPRAZOLE SODIUM 40 MG VIAL IV SCH (10:19)
[2017-09-12] MEDS: NORMAL SALINE 1000 ML 1,000 ML IV PRN (10:27)
--- NOTE | 2017-09-12 13:23 | RADIOLOGY REPORT (SQ) ---
EXAM DESCRIPTION: CT ABD/PELVIS WITH IV ONLY COMPLETED DATE/TIME: 09/12/2017 12:01 pm REASON FOR STUDY: acute onset abdominal pain COMPARISON: CT abdomen pelvis 05/24/2017, 12/09/2016 TECHNIQUE: CT scan of the abdomen and pelvis performed using helical scanning technique with dynamic intravenous contrast injection. No oral contrast. Images reviewed with lung, soft tissue, and bone windows. Reconstructed coronal and sagittal MPR images reviewed. Delayed images for evaluation of the urinary system also acquired. All images stored on PACS. All CT scanners at this facility use dose modulation, iterative reconstruction, and/or weight based d osing when appropriate to reduce radiation dose to as low as reasonably achievable (ALARA). [facility]: Dose Right [facility]: CareDose [facility]: Dose Right [facility]: Teradose 4D [facility]: Fourandhalf CONTRAST TYPE AND DOSE: 72 mL of IV Omnipaque 350- low osmolar. RENAL FUNCTION: Creatinine 0.5 RADIATION DOSE: 22 mGy. LIMITATIONS: None. FINDINGS: LOWER CHEST: No significant findings. No nodules or infiltrates. LIVER: Normal size. No masses. No dilated ducts. SPLEEN: Normal size. No focal lesions. PANCREAS: There are punctate calcifications at the pancreatic head from prior pancreatitis. Currentl y, no peripancreatic inflammation or fluid collections are identified. Pancreatic duct nondilated. GALLBLADDER: No identified stones by CT criteria. No inflammatory changes to suggest cholecystitis. ADRENAL GLANDS: No significant masses or asymmetry. RIGHT KIDNEY AND URETER: No solid masses. No significant calcifications. No hydronephrosis or hyd roureter. LEFT KIDNEY AND URETER: No solid masses. No significant calcifications. No hydronephrosis or hydr oureter. AORTA AND VESSELS: No aneurysm. No dissection. Renal arteries, SMA, celiac without stenosis. RETROPERITONEUM: No retroperitoneal adenopathy, hemorrhage or masses. BOWEL AND PERITONEAL CAVITY: No masses or inflammatory changes. No free fluid or peritoneal masses. APPENDIX: Not identified PELVIS: No mass. No free fluid. Normal bladder. ABDOMINAL WALL: No masses. No hernias. BONES: Near complete anterolisthesis of L5 over S1, similar compared to previous studies OTHER: No other significant finding. IMPRESSION: Calcifications from old pancreatitis. No gross acute peripancreatic inflammation change s or peripancreatic fluid collections TECHNICAL DOCUMENTATION: JOB ID: [id number] Quality ID # [id number]: Final reports with documentation of one or more dose reduction techniques (e.g., Au tomated exposure control, adjustment of the mA and/or kV according to patient size, use of iterative reconstruction technique) 2010 [employer]- All Rights Reserved Reading location - IP/workstation name: [email or web address]
[2017-09-12 13:55] VITALS: BP 123/80
--- NOTE | 2017-09-12 15:24 | PDOC DISCHARGE SUMMARY ---
General - Admit/Disc Date/PCP Admission Date/Primary Care Provider: 09/05/17 23:26 Discharge Date: 09/12/17 - Discharge Diagnosis (1) Acute GI bleeding Is this a current diagnosis for this admission?: Yes (2) Healing cellulitis of right hand Is this a current diagnosis for this admission?: Yes (3) Diabetes Is this a current diagnosis for this admission?: Yes (4) Anemia of chronic disease Is this a current diagnosis for this admission?: Yes (5) Chronic pancreatitis Is this a current diagnosis for this admission?: Yes (6) Diarrhea Is this a current diagnosis for this admission?: Yes - Additional Information Resuscitation Status: Full Code Discharge Diet: Diabetic Discharge Activity: Activity As Tolerated Prescriptions: Blood Sugar Diagnostic [True Metrix Glucose Test Strip] 1 strip [facility] #100 strip Blood-Glucose Meter [True Metrix Blood Glucose Mtr] 1 each [facility] 30 Days #1 each Ferrous Sulfate 325 mg PO BID #60 tablet Sulfamethoxazole/Trimethoprim [Septra-Ds 800-160 mg Tablet] 1 tab PO Q12A 5 Days #10 tablet Home Medications: Insulin Glargine,Hum.rec.anlog [Lantus Insulin 100 Unit/1 ml 10 ml] 35 units SQ DAILY 08/26/17 Insulin Lispro [Humalog Insulin (Lispro) 100 unit/mL] See Protocol SQ [facility] 08/26 Ferrous Sulfate 325 mg PO BID #60 tablet 09/09/17 Blood Sugar Diagnostic [True Metrix Glucose Test Strip] 1 strip [facility] #100 strip 09/12/17 Blood-Glucose Meter [True Metrix Blood Glucose Mtr] 1 each [facility] 30 Days #1 each 09/12/17 Ferrous Sulfate [Feosol 325 mg Tablet] 325 mg PO QPM tablet 09/12/17 Insulin Lispro [Humalog Insulin (Lispro) 100 unit/mL] 0 - 12 unit SUBCUT [facility] PRN unit 09/12/17 Sulfamethoxazole/Trimethoprim [Septra-Ds 800-160 mg Tablet] 1 tab PO Q12A 5 Days #10 tablet 09/12/17 History of Present Illness History of Present Illness: CHESTER MCKEON is a 37 year old male who was re admitted for right hand cellulitis and also had acute on chronic anemia requiring 1u pRBC transfusion. please see initial H&P for full details Hospital Course Hospital Course: After admission to the hospital he was started back on his clindamycin that he was supposed to take outpatient. Later his hemoglobin unfortunately dropped and he was transfused 1 unit of blood. Surgery was consulted for possible EGD for acute on chronic upper GI bleed. Surgery reviewed his recent EGD from the hospital but his hemoglobin stabilized and remained at 9. I do not think he was actively bleeding. He was started on Protonix IV twice daily by myself. They are discontinued. He has a history of chronic pancreatitis has been complaining of diarrhea and abdominal pain. He told me that this is chronic for him but it was more than usual. I contributed this to his clindamycin is and hence I discontinued it and switched him to p.o. Bactrim for his right hand cellulitis of the thumb. On day of discharge he complained of left-sided abdominal pain and he told me this is new. I sent for CT abdomen pelvis with IV contrast which did not show anything except for chronic pancreatitis. I discussed these results with them and told him to follow-up with the GI doctor. I also told him to follow-up with the primary care doctor. I told him to follow-up with orthopedics or PCP regarding his right hand [place]. I also discussed with him about his diabetes and he states that he does not have a glucometer or test strips-which I prescribed for him and he wanted from [facility]. Strict return precautions given. I discussed very thoroughly about his diabetic care-lifestyle [id number]-[id number] glucose fingerstick checks at least 3-4 times a day. He verbalized understanding all these instructions. He will be discharged on 5 days of Bactrim. Physical Exam Vital Signs: Temp Pulse Resp BP Pulse Ox 97.6 F 101 H 16 123/80 100 09/12/17 12:00 09/12/17 12:00 09/12/17 12:00 09/12/17 12:00 09/12/17 12:00 Intake & Output 09/11/17 09/12/17 09/13/17 06:59 06:59 06:59 Intake Total 4630 2120 893 Balance 4630 2120 893 Weight 139 lb 15.896 oz General appearance: PRESENT: no acute distress, thin Head exam: PRESENT: atraumatic, normocephalic Eye exam: PRESENT: EOMI, PERRLA. ABSENT: scleral icterus Ear exam: PRESENT: normal external ear exam Mouth exam: PRESENT: tongue midline Neck exam: ABSENT: tracheal deviation Cardiovascular exam: PRESENT: +S1, +S2, tachycardia Pulses: PRESENT: +2 pedal pulses bilateral GI/Abdominal exam: PRESENT: normal bowel sounds, soft, tenderness - diffuse but today left sided. ABSENT: guarding, rebound Extremities exam: ABSENT: +2 edema Musculoskeletal exam: PRESENT: other - right thumb- healing wound with no discharge- wrapped in kerlix- minimal TTP, cap refill <2s, pulses 2+ of right radial Skin exam: PRESENT: dry, warm Results Laboratory Results: 09/11/17 09:45 09/10/17 10:40 Impressions: Abdomen/Pelvis CT 09/12/17 00:00 IMPRESSION: Calcifications from old pancreatitis. No gross acute peripancreatic inflammation changes or peripancreatic fluid collections Qualifiers - * PATIENT BEING DISCHARGED WITH ANY OF THE FOLLOWING DIAGNOSIS: No VTE patient discharged on overlapping Therapy?: No Plan Time Spent: Less than 30 Minutes
[2017-09-12] MEDS: FERROUS SULFATE 325 MG TABLET PO SCH (17:13)
== END 2017-09-12 19:55 | disposition home or self-care (01) | DRG 638 ==
LOC: ER 16:28 → EH 18:10 → OBSVTOIN 23:26 → ICU 09-06 02:50 → 5 09-07 02:19
PROVIDERS: ADMIT Internal Medicine; ATTEND Internal Medicine
PROC: 30233N1 Transfusion of Nonautologous Red Blood Cells into Peripheral Vein, Percutaneous Approach (ICD-10-PCS; principal; 2017-09-08)
DX: E10.628 Type 1 diabetes mellitus with other skin complications (principal); K92.1 Melena; K86.0 Alcohol-induced chronic pancreatitis; L02.511 Cutaneous abscess of right hand; L03.011 Cellulitis of right finger; B95.62 Methicillin resistant Staphylococcus aureus infection as the cause of diseases classified elsewhere; D63.8 Anemia in other chronic diseases classified elsewhere; R19.7 Diarrhea, unspecified; I10 Essential (primary) hypertension; E78.00 Pure hypercholesterolemia, unspecified; K21.9 Gastro-esophageal reflux disease without esophagitis; F32.9 Major depressive disorder, single episode, unspecified; E10.65 Type 1 diabetes mellitus with hyperglycemia; E10.319 Type 1 diabetes mellitus with unspecified diabetic retinopathy without macular edema; F10.10 Alcohol abuse, uncomplicated; Z60.2 Problems related to living alone; Z88.8 Allergy status to other drugs, medicaments and biological substances; Z79.4 Long term (current) use of insulin; Z79.899 Other long term (current) drug therapy; Z87.891 Personal history of nicotine dependence; Z83.3 Family history of diabetes mellitus; Z82.49 Family history of ischemic heart disease and other diseases of the circulatory system; Z84.89 Family history of other specified conditions
CPT/HCPCS: 36415; 36430; 74177; 80048; 80053; 82272; 82803; 82962; 83605; 85025; 85027; 86850; 86900; 86901; 86920; 87040; 87045; 87177; 87205; 87493; 96361; 96365; 96375; 99284; J1170; J1815; J2270; J2550; J3490; J7030; P9016; S0164

== ENCOUNTER 2017-09-15 12:20 | Inpatient (IN) | payer SELFPAY ==
[2017-09-15] MEDS ORDERED: FENTANYL CITRATE INJ/PF 100 MCG/2 ML AMPUL IV ONE (12:41)
[2017-09-15] MEDS ORDERED: NORMAL SALINE 1000 ML 1,000 ML IV PRN (12:42)
[2017-09-15] MEDS ORDERED: PROCHLORPERAZINE EDISYLATE INJ 10 MG/2 ML VIAL IM ONE (12:42)
[2017-09-15] MEDS ORDERED: NORMAL SALINE 1000 ML 1,000 ML IV ONE ×2 (12:42→14:36)
[2017-09-15] MEDS ORDERED: INSULIN REG, HUMAN 100 UNIT/ML 3 ML VIAL (PYX) IV ONE ×2 (12:43→12:44)
--- NOTE | 2017-09-15 12:45 | ER Document Report ---
ED Medical Screen (RME) - General Chief Complaint: High Blood Sugar Stated Complaint: ABDOMINAL PAIN Time Seen by Provider: 09/15/17 12:36 Notes: 37 years old male with a history of type 1 diabetes has not had any insulin for 2 days. Presents with general malaise nausea vomiting many times. And abdominal pain TRAVEL OUTSIDE OF THE [place] IN LAST 30 DAYS: No - Related Data Allergies/Adverse Reactions: ondansetron [From Zofran (as hydrochloride)] Allergy (Verified 09/15/17 12:23) Past Medical History - Social History Chew tobacco use (# tins/day): No Frequency of alcohol use: None Drug Abuse: Marijuana - Past Medical History Cardiac Medical History: Reports: Hx Hypercholesterolemia, Hx Hypertension - Taken off medication for same. Denies: Hx Atrial Fibrillation, Hx Congestive Heart Failure, Hx Coronary Artery Disease, Hx Heart Attack, Hx Pulmonary Embolism Pulmonary Medical History: Denies: Hx Asthma, Hx COPD, Hx Sleep Apnea Neurological Medical History: Denies: Hx Seizures Endocrine Medical History: Reports: Hx Diabetes Mellitus Type 1, Hx Diabetes Mellitus Type 2. Denies: Hx Hyperthyroidism, Hx Hypothyroidism Renal/ Medical History: Denies: Hx End Stage Renal Disease, Hx Peritoneal Dialysis GI Medical History: Reports: Hx Gastroesophageal Reflux Disease, Hx Pancreatitis. Denies: Hx Cirrhosis, Hx Hepatitis Musculoskeltal Medical History: Denies Hx Arthritis Psychiatric Medical History: Reports: Hx Depression Infectious Medical History: Reports: Hx MRSA. Denies: Hx Hepatitis Past Surgical History: Reports: Hx Orthopedic Surgery - back, left long finger PIP disarticulation, now s/p right hand I and D. Denies: Hx Appendectomy, Hx Cholecystectomy, Hx Tonsillectomy - Immunizations Hx Diphtheria, Pertussis, Tetanus Vaccination: Yes History of Influenza Vaccine for 11/2016 - 04/2017 Season: Refused Physical Exam - Vital signs Vitals: Temp Pulse Resp BP Pulse Ox 97.8 F 103 H 18 100/67 95 09/15/17 12:30 09/15/17 12:30 09/15/17 12:30 09/15/17 12:30 09/15/17 12:30 Course - Vital Signs Vital signs: Temp Pulse Resp BP Pulse Ox 97.8 F 103 H 18 100/67 95 09/15/17 12:30 09/15/17 12:30 09/15/17 12:30 09/15/17 12:30 09/15/17 12:30
[2017-09-15 13:54] LABS: VENOUS BLOOD BASE EXCESS -11.8 mmol/L; VENOUS BLOOD PCO2 43.4 mmHg (35-63)
--- NOTE | 2017-09-15 13:57 | ER Document Report ---
ED General - General Chief Complaint: High Blood Sugar Stated Complaint: ABDOMINAL PAIN Time Seen by Provider: 09/15/17 12:36 Notes: Patient is here because of nausea and vomiting and high blood sugar. He is a known insulin-dependent diabetic who has frequent visits to this emergency department and stays in the hospital. He was just discharged from this hospital on Wednesday. However, he did not have any insulin to use at home and he apparently is back in DKA again now. He says that he has noticed some pinkish coloring to his vomitus. He started back vomiting Wednesday and all day yesterday. Is having generalized abdominal cramping, as well. Also some chest pains. Obviously also having frequent urinations. Patient says he had an endoscopy done in [place] during the spring which did not show anything specifically as the source of the bleeding. Has not had any abdominal surgeries. The only other medical problems patient has is anemia for which she is prescribed iron. TRAVEL OUTSIDE OF THE [place] IN LAST 30 DAYS: No - Related Data Allergies/Adverse Reactions: ondansetron [From Zofran (as hydrochloride)] Allergy (Verified 09/15/17 12:23) Past Medical History - Social History Smoking Status: Never Smoker Chew tobacco use (# tins/day): No Frequency of alcohol use: None Drug Abuse: Marijuana Family History: Reviewed & Not Pertinent, DM, Hyperlipidemia, Hypertension Patient has suicidal ideation: No Patient has homicidal ideation: No - Past Medical History Cardiac Medical History: Reports: Hx Hypercholesterolemia, Hx Hypertension - Taken off medication for same. Pulmonary Medical History: Neurological Medical History: Denies: Hx Seizures Endocrine Medical History: Reports: Hx Diabetes Mellitus Type 1, Hx Diabetes Mellitus Type 2 GI Medical History: Reports: Hx Gastroesophageal Reflux Disease, Hx Pancreatitis Psychiatric Medical History: Reports: Hx Depression Infectious Medical History: Reports: Hx MRSA Past Surgical History: Reports: Hx Orthopedic Surgery - back, left long finger PIP disarticulation, now s/p right hand I and D - Immunizations Hx Diphtheria, Pertussis, Tetanus Vaccination: Yes Hx Pneumococcal Vaccination: 11/09/11 Review of Systems - Review of Systems Notes: REVIEW OF SYSTEMS: CONSTITUTIONAL : Denies fever. EENT: Denies eye, ear, nose or mouth or throat pain or other symptoms. CARDIOVASCULAR: Entire frontal chest pain. RESPIRATORY: Denies cough, chest congestion, but has shortness of breath. GASTROINTESTINAL: See HPI.. GENITOURINARY: Frequent urination but denies difficulty or painful urinating, blood in urine. MUSCULOSKELETAL: Denies back or neck pain. Denies joint pain or swelling. SKIN: Denies rash or skin lesions. NEUROLOGICAL: Denies LOC or altered mental status. Denies headache. Denies sensory loss or motor deficits. ALL OTHER SYSTEMS REVIEWED AND NEGATIVE. Physical Exam - Vital signs Vitals: Temp Pulse Resp BP Pulse Ox 97.8 F 103 H 18 100/67 95 09/15/17 12:30 09/15/17 12:30 09/15/17 12:30 09/15/17 12:30 09/15/17 12:30 Interpretation: Normal - Notes Notes: PHYSICAL EXAMINATION: GENERAL: Well-appearing, in no acute distress. Vital signs all essentially normal. HEAD: Atraumatic, normocephalic. EYES: Pupils equal round and reactive to light, extraocular movements intact. ENT: oropharynx clear without exudates. Moist mucous membranes. NECK: Normal range of motion, supple. LUNGS: Breath sounds clear and equal bilaterally. HEART: Regular rate and rhythm without murmurs. ABDOMEN: Soft, just very mild diffuse tenderness. No guarding or rebound. No masses. BACK: No tenderness throughout entire back. EXTREMITIES: Normal range of motion without pain. NEUROLOGICAL: Normal speech, normal gait. Normal sensory, motor, and reflex exams. Awake, alert, and oriented x3. Cranial nerves normal. PSYCH: Normal mood, normal affect. SKIN: Warm, dry, no rashes. Course - Re-evaluation Re-evalutation: 09/15/17 14:05 Lab studies were ordered. Patient was started on an insulin drip. Infusing normal saline. 09/15/17 15:45 Patient's blood sugar was 1100. Electrolytes with significantly elevated potassium and decreased sodium. Contacted hospitalist who will admit the patient to ICU for further care. - Vital Signs Vital signs: Temp Pulse Resp BP Pulse Ox 97.8 F 103 H 20 117/78 99 09/15/17 12:30 09/15/17 12:30 09/15/17 14:01 09/15/17 14:01 09/15/17 14:01 - Laboratory Result Diagrams: 09/15/17 14:45 09/15/17 13:33 Laboratory results interpreted by me: 09/15/17 09/15/17 09/15/17 13:33 13:33 13:33 RBC Hgb Hct MCH MCHC RDW VBG pH 7.18 L* VBG HCO3 16.0 L Sodium 119.8 L* Potassium 6.2 H* Chloride 86 L Carbon Dioxide 14 L Anion Gap 20 H BUN 45 H Creatinine 1.29 H Glucose 1108 H* AST 72 H ALT 177 H Alkaline Phosphatase 268 H Lipase 473.5 H Urine Glucose (UA) >=500 H Urine Ketones TRACE H 09/15/17 14:45 RBC 3.62 L Hgb 8.8 L Hct 29.5 L MCH 24.4 L MCHC 29.9 L RDW 20.2 H VBG pH VBG HCO3 Sodium Potassium Chloride Carbon Dioxide Anion Gap BUN Creatinine Glucose AST ALT Alkaline Phosphatase Lipase Urine Glucose (UA) Urine Ketones Critical Care Note - Critical Care Note Total time excluding time spent on procedures (mins): 50 Discharge - Discharge Clinical Impression: Diabetic ketoacidosis, Nausea and vomiting Condition: Serious Disposition: ADMITTED INPATIENT Admitting Provider: Hospitalist Unit Admitted: ICU
--- NOTE | 2017-09-15 14:06 | RADIOLOGY REPORT (SQ) ---
EXAM DESCRIPTION: ACUTE ABDOMEN SERIES COMPLETED DATE/TIME: 09/15/2017 1:52 pm REASON FOR STUDY: Abdominal pain COMPARISON: 07/22/2017. NUMBER OF VIEWS: Three views. TECHNIQUE: Frontal chest, supine abdomen and upright/decubitus abdomen radiographic images acquired. LIMITATIONS: None. FINDINGS: CHEST: Lungs clear of infiltrates. FREE AIR: None. No abnormal gas collections. BOWEL GAS PATTERN: Nonobstructive pattern. No dilated loops or air fluid levels. CALCIFICATIONS: No suspicious calcifications. HARDWARE: None in the abdomen. SOFT TISSUES: No gross mass or suggestion of organomegaly. BONES: No acute fracture. No worrisome bone lesions. OTHER: No other significant finding. IMPRESSION: NO RADIOGRAPHIC EVIDENCE FOR ACUTE ABDOMINAL DISEASE. TECHNICAL DOCUMENTATION: JOB ID: [id number] [employer]- All Rights Reserved Reading location - IP/workstation name: [email or web address]
[2017-09-15 14:11] LABS: ALANINE AMINOTRANSFERASE 177 U/L (21-72); ALBUMIN 4.1 g/dL (3.5-5.0); ALKALINE PHOSPHATASE 268 U/L (38-126); ASPARTATE AMINO TRANSFERASE 72 U/L (17-59); BILIRUBIN,DIRECT 0.3 mg/dL (0.0-0.4); BILIRUBIN,TOTAL 0.5 mg/dL (0.2-1.3); BLOOD UREA NITROGEN 45 mg/dL (7-20); CALCIUM 9.4 mg/dL (8.4-10.2); LIPASE 473.5 U/L (23-300); TOTAL PROTEIN 7.5 g/dL (6.3-8.2)
[2017-09-15 14:16] LABS: CARBON DIOXIDE 14 mmol/L (22-30); CHLORIDE 86 mmol/L (98-107)
[2017-09-15 14:19] LABS: APPEARANCE,URINE CLEAR; BILIRUBIN,URINE NEGATIVE (NEGATIVE); COLOR,URINE STRAW; GLUCOSE, URINE >=500 mg/dL (NEGATIVE); KETONES,URINE TRACE mg/dL (NEGATIVE); LEUKOCYTE ESTERASE,URINE NEGATIVE (NEGATIVE); NITRITE,URINE NEGATIVE (NEGATIVE); PROTEIN,URINE NEGATIVE (NEGATIVE); URINE SPECIFIC GRAVITY 1.023; UROBILINOGEN,URINE NEGATIVE mg/dL (<2.0)
[2017-09-15 14:23] LABS: POTASSIUM 6.2 mmol/L (3.6-5.0)
[2017-09-15 14:24] LABS: ANION GAP 20 (5-19); GLUCOSE 1108 mg/dL (75-110); SODIUM 119.8 mmol/L (137-145)
[2017-09-15 14:52] LABS: ABSOLUTE LYMPHOCYTES (AUTO) 0.8 10^3/uL (0.5-4.7); ABSOLUTE MONOCYTES (AUTO) 0.3 10^3/uL (0.1-1.4); ABSOLUTE NEUT (AUTO) 3.4 10^3/uL (1.7-8.2); BASOPHILS % (AUTO) 0.5 % (0-2); EOSINOPHILS % (AUTO) 0.4 % (0-6); HEMATOCRIT 29.5 % (37.9-51.0); HEMOGLOBIN 8.8 g/dL (13.5-17.0); LYMPHOCYTES % (AUTO) 16.9 % (13-45); MEAN CORPUSCULAR HEMOGLOBIN 24.4 pg (27.0-33.4); MEAN CORPUSCULAR HGB CONC 29.9 g/dL (32.0-36.0); MONOCYTES % (AUTO) 7.2 % (3-13); PLATELET COUNT 406 10^3/uL (150-450); RED BLOOD COUNT 3.62 10^6/uL (4.35-5.55); RED CELL DISTRIBUTION WIDTH 20.2 % (11.5-14.0); TOTAL CELLS COUNTED % (AUTO) 100 %; WHITE BLOOD COUNT 4.6 10^3/uL (4.0-10.5)
[2017-09-15 15:03] LABS: MEAN CORPUSCULAR VOLUME 82 fl (80-97)
[2017-09-15] MEDS ORDERED: GLUCAGON,HUMAN RECOMB 1 MG INJ IM PRN (15:56)
[2017-09-15] MEDS ORDERED: ACETAMINOPHEN 325 MG TABLET PO PRN (15:56)
[2017-09-15] MEDS ORDERED: DEXTROSE 50%-WATER 25 GM/50 ML DISP.SYRIN IV PRN ×2 (15:56)
[2017-09-15] MEDS ORDERED: ONDANSETRON HCL INJ/PF 4 MG/2 ML SDV IV PRN (15:56)
[2017-09-15] MEDS ORDERED: DEXTROSE 40% GEL 15 GM TUBE PO PRN ×2 (15:56)
[2017-09-15 16:48] LABS: INTERNATIONAL RATION (INR) 0.84; PROTHROMBIN TIME 11.9 SEC (11.4-15.4)
--- NOTE | 2017-09-15 16:58 | PDOC H&P ---
History of Present Illness Admission Date/PCP: 09/15/17 16:12 History of Present Illness: CHESTER MCKEON is a 37 year old male who is here very frequently due to DKA. He is a Type 1 DM. He was just discharged from this facility on 09/12/2017 after a stay for DKA. Arrangements had been made with [facility] to make insulin available to the patient. I was informed by the ED physician that the clinic had it available to him, but he never came to pick it up. 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 In any case it seems that this is the same issue every time the patient is discharged from the hospital after a stay for DKA. Today the patient presents with 2 days of nausea and vomiting and abdominal pain with pink tinged emesis. He is found to have a glucose of 1100 and pH of 7.16. K is 6.2 and Na is 119 (which corrects to 135 or 143 depending on the method used to correct sodium for glucose). Past Medical History Cardiac Medical History: Reports: Hyperlipidema, Hypertension - Taken off medication for same. Denies: Atrial Fibrillation, Congestive Heart Failure, Coronary Artery Disease, Myocardial Infarction, Pulmonary Embolism Pulmonary Medical History: Denies: Asthma, Chronic Obstructive Pulmonary Disease (COPD), Sleep Apnea Neurological Medical History: Denies: Seizures Endocrine Medical History: Reports: Diabetes Mellitus Type 1 Denies: Hyperthyroidism, Hypothyroidism Renal/ Medical History: Denies: End Stage Renal Disease GI Medical History: Reports: Gastroesophageal Reflux Disease Denies: Cirrhosis, Hepatitis Musculoskeltal Medical History: Denies: Arthritis Psychiatric Medical History: Reports: Depression Hematology: Reports: Anemia - Chronic illnesses Infectious Medical History: Reports: Methicillin-Resistant Staph Aureus Past Surgical History Past Surgical History: Reports: Orthopedic Surgery - back, left long finger PIP disarticulation, now s/p right hand I and D Denies: Appendectomy, Cholecystectomy, Tonsillectomy Social History Smoking Status: Never Smoker Frequency of Alcohol Use: None Hx Recreational Drug Use: Yes Drugs: Marijuana Hx Prescription Drug Abuse: Yes - Advance Directive Resuscitation Status: Full Code Family History Family History: Reviewed & Not Pertinent, DM, Hyperlipidemia, Hypertension Parental Family History Reviewed: Yes Children Family History Reviewed: Yes Sibling(s) Family History Reviewed.: Yes Medication/Allergy Home Medications: Insulin Glargine,Hum.rec.anlog [Lantus Solostar] 35 units SQ DAILY 09/15/17 Insulin Lispro [Humalog Insulin (Lispro) 100 unit/mL] 0 unit SQ .SLIDING SCALE 09/15/17 Allergies/Adverse Reactions: ondansetron [From Zofran (as hydrochloride)] Allergy (Verified 09/15/17 12:23) Review of Systems Constitutional: PRESENT: fatigue, weakness. ABSENT: chills, fever(s), headache( s) Eyes: ABSENT: visual disturbances Ears: ABSENT: hearing changes Nose, Mouth, and Throat: ABSENT: mouth pain, sore throat, vertigo Cardiovascular: ABSENT: chest pain, orthropnea, palpitations Respiratory: ABSENT: cough, dyspnea, hemoptysis Gastrointestinal: PRESENT: abdominal pain, hematemesis, nausea, vomiting. ABSENT: diarrhea, dysphagia, hematochezia Musculoskeletal: ABSENT: deformity, joint swelling, muscle weakness Integumentary: ABSENT: pruritus, rash, wounds Neurological: PRESENT: weakness. ABSENT: abnormal gait, confusion, dizziness, frequent falls, paresthesias, syncope, vertigo Endocrine: PRESENT: polydipsia, polyuria Hematologic/Lymphatic: ABSENT: easy bleeding, easy bruising Physical Exam Vital Signs: Temp Pulse Resp BP Pulse Ox 97.8 F 103 H 20 117/78 99 09/15/17 12:30 09/15/17 12:30 09/15/17 14:01 09/15/17 14:01 09/15/17 14:01 General appearance: PRESENT: no acute distress, cooperative, thin Head exam: PRESENT: atraumatic, normocephalic Eye exam: PRESENT: EOMI, PERRLA, other - no scleral injection. ABSENT: scleral icterus Ear exam: PRESENT: normal external ear exam. ABSENT: bleeding, drainage Mouth exam: PRESENT: dry mucosa, neck supple, tongue midline Throat exam: ABSENT: post pharyngeal erythema, tonsillar exudate, tonsillogmegaly Neck exam: ABSENT: JVD, lymphadenopathy, thyromegaly Respiratory exam: PRESENT: other - No increased work of breathing.. ABSENT: rales, rhonchi, tachypnea, wheezes Cardiovascular exam: PRESENT: RRR, tachycardia. ABSENT: gallop, rubs, systolic murmur Pulses: PRESENT: normal dorsalis pedis pul GI/Abdominal exam: PRESENT: normal bowel sounds, soft, tenderness - Diffuse., other - scaffoid. ABSENT: distended, hernia, mass, organolmegaly Rectal exam: PRESENT: deferred Extremities exam: PRESENT: full ROM. ABSENT: clubbing, joint swelling, tenderness Musculoskeletal exam: PRESENT: normal inspection. ABSENT: deformity, tenderness Neurological exam: PRESENT: alert, altered, awake, oriented to person, oriented to place, oriented to time, oriented to situation Psychiatric exam: PRESENT: appropriate affect, normal mood Skin exam: PRESENT: dry, intact, warm Results Laboratory Results: 09/15/17 09/15/17 09/15/17 13:33 13:33 13:33 WBC RBC Hgb Hct MCV MCH MCHC RDW Plt Count Seg Neutrophils % VBG pH 7.18 L* VBG pCO2 43.4 VBG HCO3 16.0 L VBG Base Excess -11.8 Sodium 119.8 L* Potassium 6.2 H* Chloride 86 L Carbon Dioxide 14 L Anion Gap 20 H BUN 45 H Creatinine 1.29 H Est GFR ( Amer) > 60 Glucose 1108 H* Calcium 9.4 Total Bilirubin 0.5 Direct Bilirubin 0.3 AST 72 H ALT 177 H Alkaline Phosphatase 268 H Total Protein 7.5 Albumin 4.1 Lipase 473.5 H Urine Color STRAW Urine Appearance CLEAR Urine pH 5.0 Ur Specific [place] 1.023 Urine Glucose (UA) >=500 H Urine Ketones TRACE H Urine Nitrite NEGATIVE Ur Leukocyte Esterase NEGATIVE Urine WBC (Auto) 0 Urine RBC (Auto) 0 09/15/17 14:45 WBC 4.6 RBC 3.62 L Hgb 8.8 L Hct 29.5 L MCV 82 D MCH 24.4 L MCHC 29.9 L RDW 20.2 H Plt Count 406 Seg Neutrophils % 75.0 VBG pH VBG pCO2 VBG HCO3 VBG Base Excess Sodium Potassium Chloride Carbon Dioxide Anion Gap BUN Creatinine Est GFR ( Amer) Glucose Calcium Total Bilirubin Direct Bilirubin AST ALT Alkaline Phosphatase Total Protein Albumin Lipase Urine Color Urine Appearance Urine pH Ur Specific [place] Urine Glucose (UA) Urine Ketones Urine Nitrite Ur Leukocyte Esterase Urine WBC (Auto) Urine RBC (Auto) Impressions: Acute Abdomen Series 09/15/17 12:41 IMPRESSION: NO RADIOGRAPHIC EVIDENCE FOR ACUTE ABDOMINAL DISEASE. Assessment & Plan - Diagnosis (1) Abdominal pain Qualifiers: Abdominal location: generalized Qualified Code(s): R10.84 - Generalized abdominal pain Is this a current diagnosis for this admission?: Yes Plan: Due to DKA. IV fluids and insulin drip. Pain control. (2) DKA (diabetic ketoacidoses) Qualifiers: Diabetes mellitus type: type 1 Diabetes mellitus complication detail: without coma Qualified Code(s): E10.10 - Type 1 diabetes mellitus with ketoacidosis without coma Is this a current diagnosis for this admission?: Yes Plan: The patient will be admitted to the ICU and placed on an insulin drip. He will also receive aggressive IV fluids and IV protonix. He will be kept NPO. (3) Nausea and vomiting Qualifiers: Vomiting type: cyclical vomiting Vomiting Intractability: non-intractable Qualified Code(s): G43.A0 - Cyclical vomiting, not intractable Is this a current diagnosis for this admission?: Yes Plan: Antiemetics and IV protonix. NPO for now. (4) Acute GI bleeding Is this a current diagnosis for this admission?: Yes Plan: IV protonix. Monitor hemoglobin. consult surgery for EGD if bleeding is ongoing. Likely due to Kaylee-Perera tear. (5) Acute blood loss anemia Is this a current diagnosis for this admission?: Yes Plan: Monitor H&H and transfuse as necessary. (6) Acute pain Is this a current diagnosis for this admission?: Yes (7) Alcohol abuse Is this a current diagnosis for this admission?: Yes (8) Anemia Qualifiers: Anemia type: iron deficiency Iron deficiency anemia type: other iron deficiency Qualified Code(s): D50.8 - Other iron deficiency anemias Is this a current diagnosis for this admission?: Yes Plan: Monitor hemoglobin, check iron studies, and transfuse as necessary. - Time Time Spent: Greater than 70 Minutes Medications reviewed and adjusted accordingly: Yes Anticipated discharge: Home
[2017-09-15 18:31] LABS: URINE AMPHETAMINES SCREEN NEGATIVE; URINE BARBITURATES SCREEN NEGATIVE; URINE BENZODIAZEPINES SCREEN NEGATIVE; URINE COCAINE SCREEN UNCONFIRMED POSITIVE; URINE MARIJUANA (THC) SCREEN NEGATIVE; URINE METHADONE SCREEN NEGATIVE; URINE PHENCYCLIDINE SCREEN NEGATIVE
[2017-09-15] MEDS: PROMETHAZINE HCL INJ 25 MG/1 ML VIAL IV PRN ×2 (19:08→23:25)
[2017-09-15] MEDS: MORPHINE SULFATE 10 MG/ML INJ IV PRN ×2 (19:09→23:25)
[2017-09-15 20:04] LABS: ARTERIAL BLOOD H2CO3 1.14 mmol/L (1.05-1.35); ARTERIAL BLOOD HCO3 17.9 mmol/L (20-26); ARTERIAL BLOOD O2 SATURATION 95.7 % (94-98); ARTERIAL BLOOD PH 7.29 (7.35-7.45); ARTERIAL BLOOD PO2 87.4 mmHg (80-100)
[2017-09-15 20:06] LABS: ARTERIAL BLOOD FIO2 ROOMAIR
[2017-09-15] MEDS: NORMAL SALINE 1000 ML 1,000 ML IV PRN (20:11)
[2017-09-15] MEDS: PANTOPRAZOLE SODIUM 40 MG VIAL IV SCH (20:13)
[2017-09-16 00:18] LABS: ANION GAP 12 (5-19); BLOOD UREA NITROGEN 34 mg/dL (7-20); CALCIUM 9.4 mg/dL (8.4-10.2); CARBON DIOXIDE 16 mmol/L (22-30); CHLORIDE 110 mmol/L (98-107); GLUCOSE 83 mg/dL (75-110); SODIUM 138.1 mmol/L (137-145)
[2017-09-16 00:26] LABS: POTASSIUM 3.7 mmol/L (3.6-5.0)
[2017-09-16] MEDS ORDERED: NORMAL SALINE 1000 ML 1,000 ML IV PRN (00:38)
[2017-09-16] MEDS: INSULIN GLARGINE,HUM.REC.ANLOG 1,000 UNIT/10 ML UNIT SUBCUT ONE ×2 (00:38→13:43)
[2017-09-16] MEDS ORDERED: INSULIN GLARGINE,HUM.REC.ANLOG 300 UNIT/3 ML INSULN.PEN SUBCUT ONE (00:45)
[2017-09-16] MEDS: MORPHINE SULFATE 10 MG/ML INJ IV PRN (03:36)
[2017-09-16 04:21] LABS: ABSOLUTE BASOPHILS # (AUTO) 0.1 10^3/uL (0.0-0.2); ABSOLUTE EOSINOPHILS # (AUTO) 0.2 10^3/uL (0.0-0.6); ABSOLUTE LYMPHOCYTES (AUTO) 1.4 10^3/uL (0.5-4.7); ABSOLUTE MONOCYTES (AUTO) 0.5 10^3/uL (0.1-1.4); ABSOLUTE NEUT (AUTO) 2.6 10^3/uL (1.7-8.2); ANION GAP 10 (5-19); BASOPHILS % (AUTO) 2.4 % (0-2); BLOOD UREA NITROGEN 31 mg/dL (7-20); CALCIUM 9.1 mg/dL (8.4-10.2); CARBON DIOXIDE 20 mmol/L (22-30); CHLORIDE 108 mmol/L (98-107); EOSINOPHILS % (AUTO) 4.9 % (0-6); GLUCOSE 153 mg/dL (75-110); HEMATOCRIT 28.7 % (37.9-51.0); HEMOGLOBIN 9.3 g/dL (13.5-17.0); LYMPHOCYTES % (AUTO) 28.5 % (13-45); MEAN CORPUSCULAR HEMOGLOBIN 24.5 pg (27.0-33.4); MEAN CORPUSCULAR HGB CONC 32.4 g/dL (32.0-36.0); MONOCYTES % (AUTO) 10.9 % (3-13); PHOSPHORUS 4.5 mg/dL (2.5-4.5); PLATELET COUNT 412 10^3/uL (150-450); POTASSIUM 4.1 mmol/L (3.6-5.0); RED BLOOD COUNT 3.81 10^6/uL (4.35-5.55); RED CELL DISTRIBUTION WIDTH 19.8 % (11.5-14.0); SEGMENTED NEUTROPHILS % (AUTO) 53.3 % (42-78); SODIUM 138.1 mmol/L (137-145); TOTAL CELLS COUNTED % (AUTO) 100 %
[2017-09-16 04:23] LABS: MEAN CORPUSCULAR VOLUME 76 fl (80-97)
[2017-09-16] MEDS: PROMETHAZINE HCL INJ 25 MG/1 ML VIAL IV PRN ×4 (05:28→20:44)
[2017-09-16] MEDS ORDERED: DEXTROSE 50%-WATER SYRINGE 25 GM/50 ML DOSE IV PRN (07:13)
[2017-09-16] MEDS ORDERED: DEXTROSE 50%-WATER SYRINGE 12.5 GM/25 ML DOSE IV PRN (07:13)
[2017-09-16] MEDS ORDERED: DEXTROSE 40% GEL 15 GM TUBE X 2 PO PRN (07:13)
[2017-09-16] MEDS ORDERED: GLUCAGON,HUMAN RECOMB 1 MG INJ IM PRN (07:13)
[2017-09-16] MEDS ORDERED: DEXTROSE 40% GEL 15 GM TUBE PO PRN (07:13)
[2017-09-16] MEDS: INSULIN LISPRO 100 UNIT/ML 3 ML VIAL SUBCUT PRN ×4 (08:09→22:24)
[2017-09-16] MEDS: NORMAL SALINE 1000 ML 1,000 ML IV PRN ×4 (08:10→22:45)
[2017-09-16 08:28] LABS: VENOUS BLOOD PH 7.18 (7.30-7.42)
[2017-09-16] MEDS: PANTOPRAZOLE SODIUM 40 MG VIAL IV SCH ×2 (09:25→17:37)
[2017-09-16] MEDS: HYDROCODONE/ACETAMINOPHEN 5-325 MG TABLET PO PRN ×3 (12:24→20:44)
--- NOTE | 2017-09-16 18:07 | PDOC PROGRESS REPORT ---
Subjective Progress Note for:: 09/16/17 Subjective:: The patient is without new complaints. Reason For Visit: DKA,HEMATEMESIS,HYPERKALEMIA,PSEUDOHYPONATREMIA Physical Exam Vital Signs: Temp Pulse Resp BP Pulse Ox 97.5 F 94 20 123/84 99 09/16/17 16:00 09/16/17 16:00 09/16/17 16:00 09/16/17 16:00 09/16/17 16:00 Intake & Output 09/15/17 09/16/17 09/17/17 06:59 06:59 06:59 Intake Total 3000 3297 Output Total 650 675 Balance 2350 2622 Weight 67.1 kg General appearance: PRESENT: no acute distress, cooperative, thin Respiratory exam: PRESENT: other - No increased work of breathing.. ABSENT: rales, rhonchi, wheezes Cardiovascular exam: PRESENT: RRR. ABSENT: gallop, rubs, systolic murmur GI/Abdominal exam: PRESENT: soft. ABSENT: hernia, mass, organolmegaly, tenderness Extremities exam: PRESENT: other - laceration with stitches at the base of right thumb. Appears clean and dry. No erythema or fluctuance.. ABSENT: clubbing, pedal edema, tenderness Musculoskeletal exam: PRESENT: normal inspection. ABSENT: deformity, tenderness Neurological exam: PRESENT: alert, awake, oriented to person, oriented to place , oriented to time, oriented to situation, CN II-XII grossly intact. ABSENT: motor sensory deficit Psychiatric exam: PRESENT: appropriate affect, normal mood Skin exam: PRESENT: dry, intact, warm Results Laboratory Results: 09/16/17 03:57 09/16/17 03:57 09/15/17 09/15/17 09/16/17 19:55 23:47 03:57 WBC 5.0 RBC 3.81 L Hgb 9.3 L Hct 28.7 L MCV 76 L D MCH 24.5 L MCHC 32.4 RDW 19.8 H Plt Count 412 Seg Neutrophils % 53.3 Lymphocytes % 28.5 Monocytes % 10.9 Eosinophils % 4.9 Basophils % 2.4 H Absolute Neutrophils 2.6 Absolute Lymphocytes 1.4 Absolute Monocytes 0.5 Absolute Eosinophils 0.2 Absolute Basophils 0.1 Carbonic Acid 1.14 HCO3/H2CO3 Ratio 15:1 ABG pH 7.29 L ABG pCO2 38.0 ABG pO2 87.4 ABG HCO3 17.9 L ABG O2 Saturation 95.7 ABG Base Excess -8.0 FiO2 ROOMAIR Sodium 138.1 Potassium 3.7 D Chloride 110 H Carbon Dioxide 16 L Anion Gap 12 BUN 34 H Creatinine 0.87 Est GFR ( Amer) > 60 Est GFR (Non-Af Amer) > 60 Glucose 83 Calcium 9.4 Phosphorus Magnesium 2.1 09/16/17 03:57 WBC RBC Hgb Hct MCV MCH MCHC RDW Plt Count Seg Neutrophils % Lymphocytes % Monocytes % Eosinophils % Basophils % Absolute Neutrophils Absolute Lymphocytes Absolute Monocytes Absolute Eosinophils Absolute Basophils Carbonic Acid HCO3/H2CO3 Ratio ABG pH ABG pCO2 ABG pO2 ABG HCO3 ABG O2 Saturation ABG Base Excess FiO2 Sodium 138.1 Potassium 4.1 Chloride 108 H Carbon Dioxide 20 L Anion Gap 10 BUN 31 H Creatinine 0.80 Est GFR ( Amer) > 60 Est GFR (Non-Af Amer) > 60 Glucose 153 H Calcium 9.1 Phosphorus 4.5 Magnesium 1.9 Impressions: Acute Abdomen Series 09/15/17 12:41 IMPRESSION: NO RADIOGRAPHIC EVIDENCE FOR ACUTE ABDOMINAL DISEASE. Assessment & Plan - Diagnosis (1) Abdominal pain Qualifiers: Abdominal location: generalized Qualified Code(s): R10.84 - Generalized abdominal pain Is this a current diagnosis for this admission?: Yes Plan: Due to DKA. IV fluids and insulin drip. Pain control de-escalated to hydrocodone. (2) DKA (diabetic ketoacidoses) Qualifiers: Diabetes mellitus type: type 1 Diabetes mellitus complication detail: without coma Qualified Code(s): E10.10 - Type 1 diabetes mellitus with ketoacidosis without coma Is this a current diagnosis for this admission?: Yes Plan: The patient will be admitted to the ICU and placed on an insulin drip. He will also receive aggressive IV fluids and IV protonix. He will be kept NPO. Awaiting labs to determine if insulin gtt can be stopped. (3) Nausea and vomiting Qualifiers: Vomiting type: cyclical vomiting Vomiting Intractability: non-intractable Qualified Code(s): G43.A0 - Cyclical vomiting, not intractable Is this a current diagnosis for this admission?: Yes Plan: Antiemetics and IV protonix. NPO for now. (4) Acute GI bleeding Is this a current diagnosis for this admission?: Yes Plan: IV protonix. Likely due to Kaylee-Perera tear. Hemoglobin has increased from 8.8 to 9.3 over the past 24 hours. I see no need for EGD at this time. (5) Acute blood loss anemia Is this a current diagnosis for this admission?: Yes Plan: Hemoglobin has increased from 8.8 to 9.3 over the past 24 hours. (6) Acute pain Is this a current diagnosis for this admission?: Yes Plan: Decreased pain. I have discontinued IV Morphine and started low dose PO hydrocodone. (7) Alcohol abuse Is this a current diagnosis for this admission?: Yes Plan: Noted. Of course this greatly complicates care of his Type 1 DM. (8) Anemia Qualifiers: Anemia type: iron deficiency Iron deficiency anemia type: other iron deficiency Qualified Code(s): D50.8 - Other iron deficiency anemias Is this a current diagnosis for this admission?: Yes Plan: Monitor hemoglobin, check iron studies, and transfuse as necessary. Hemoglobin has increased from 8.8 to 9.3 over the past 24 hours. - Time Time Spent with patient: 25-34 minutes Medications reviewed and adjusted accordingly: Yes Anticipated discharge: Home - Inpatient Certification Based on my medical assessment, after consideration of the patient's comorbidities, presenting symptoms, or acuity I expect that the services needed warrant INPATIENT care.: Yes I certify that my determination is in accordance with my understanding of Medicare's requirements for reasonable and necessary INPATIENT services [42 CFR 412.3e].: Yes Medical Necessity: Need Close Monitoring Due to Risk of Patient Decompensation, Need For IV Fluids, Need for Pain Control
[2017-09-16 19:31] LABS: ANION GAP 13 (5-19); BLOOD UREA NITROGEN 21 mg/dL (7-20); CALCIUM 8.6 mg/dL (8.4-10.2); CARBON DIOXIDE 13 mmol/L (22-30); CHLORIDE 112 mmol/L (98-107); GLUCOSE 247 mg/dL (75-110); POTASSIUM 4.3 mmol/L (3.6-5.0); SODIUM 138.4 mmol/L (137-145)
[2017-09-16] MEDS ORDERED: INSULIN GLARGINE,HUM.REC.ANLOG 1,000 UNIT/10 ML UNIT SUBCUT ONE ×2 (23:08→23:15)
[2017-09-17] MEDS: HYDROCODONE/ACETAMINOPHEN 5-325 MG TABLET PO PRN ×5 (01:16→20:05)
[2017-09-17] MEDS: PROMETHAZINE HCL INJ 25 MG/1 ML VIAL IV PRN ×5 (01:16→20:05)
[2017-09-17 04:26] LABS: ANION GAP 12 (5-19); BLOOD UREA NITROGEN 19 mg/dL (7-20); CALCIUM 8.9 mg/dL (8.4-10.2); CARBON DIOXIDE 14 mmol/L (22-30); CHLORIDE 117 mmol/L (98-107); GLUCOSE 86 mg/dL (75-110); POTASSIUM 3.9 mmol/L (3.6-5.0); SODIUM 142.6 mmol/L (137-145)
[2017-09-17] MEDS: NORMAL SALINE 1000 ML 1,000 ML IV PRN ×3 (06:00→18:35)
[2017-09-17] MEDS ORDERED: INSULIN GLARGINE,HUM.REC.ANLOG 1,000 UNIT/10 ML UNIT SUBCUT SCH ×3 (08:00→22:00)
[2017-09-17] MEDS ORDERED: SODIUM BICARBONATE 8.4% INJ 50 MEQ/50 ML DISP.SYRIN IV ONE (09:03)
[2017-09-17] MEDS: INSULIN LISPRO 100 UNIT/ML 3 ML VIAL SUBCUT PRN (11:41)
[2017-09-17 13:28] LABS: ANION GAP 13 (5-19); BLOOD UREA NITROGEN 16 mg/dL (7-20); CARBON DIOXIDE 14 mmol/L (22-30); CHLORIDE 116 mmol/L (98-107); GLUCOSE 221 mg/dL (75-110); POTASSIUM 4.5 mmol/L (3.6-5.0); SODIUM 142.9 mmol/L (137-145)
[2017-09-17] MEDS: NORMAL SALINE 100 ML with INSULIN REGULAR, HUMAN 100 UNIT IV PRN ×4 (15:23→16:32)
[2017-09-17] MEDS: LANSOPRAZOLE 30 MG TAB.RAP.DR PO SCH (16:32)
[2017-09-17 18:31] LABS: ANION GAP 10 (5-19); BLOOD UREA NITROGEN 14 mg/dL (7-20); CALCIUM 8.8 mg/dL (8.4-10.2); CARBON DIOXIDE 16 mmol/L (22-30); CHLORIDE 118 mmol/L (98-107); GLUCOSE 149 mg/dL (75-110); POTASSIUM 4.4 mmol/L (3.6-5.0); SODIUM 143.9 mmol/L (137-145)
--- NOTE | 2017-09-17 19:03 | PDOC PROGRESS REPORT ---
Subjective Progress Note for:: 09/17/17 Subjective:: The patient continues to complain of abdominal pain. He was taken off of his insulin gtt last night. Reason For Visit: DKA,HEMATEMESIS,HYPERKALEMIA,PSEUDOHYPONATREMIA Physical Exam Vital Signs: Temp Pulse Resp BP Pulse Ox 98 F 95 22 H 134/96 H 99 09/17/17 16:00 09/17/17 16:00 09/17/17 18:00 09/17/17 16:15 09/17/17 16:00 Intake & Output 09/16/17 09/17/17 09/18/17 06:59 06:59 06:59 Intake Total 4000 5297 3589 Output Total 650 1625 1500 Balance 3350 3672 2089 Weight 67.1 kg 66.5 kg General appearance: PRESENT: disheveled, thin Respiratory exam: PRESENT: other - No increased work of breathing. No wheezes, rales, or rhonchi. No tactile fremitus. Cardiovascular exam: PRESENT: RRR. ABSENT: gallop, rubs, systolic murmur Pulses: PRESENT: normal dorsalis pedis pul GI/Abdominal exam: PRESENT: normal bowel sounds, soft, tenderness - Diffuse. ABSENT: hernia, mass, organolmegaly Rectal exam: PRESENT: deferred Extremities exam: PRESENT: other - Right thumb with stitches.. ABSENT: clubbing , joint swelling, tenderness Musculoskeletal exam: ABSENT: deformity, dislocation, normal inspection Neurological exam: PRESENT: alert, awake, oriented to person, oriented to place , oriented to time, oriented to situation, CN II-XII grossly intact. ABSENT: motor sensory deficit Psychiatric exam: PRESENT: depressed, flat affect, unusual affect Skin exam: PRESENT: dry, intact, warm Results Laboratory Results: 09/16/17 03:57 09/17/17 17:57 09/16/17 09/17/17 09/17/17 18:15 04:01 12:38 Sodium 138.4 142.6 142.9 Potassium 4.3 3.9 4.5 Chloride 112 H 117 H 116 H Carbon Dioxide 13 L 14 L 14 L Anion Gap 13 12 13 BUN 21 H 19 16 Creatinine 0.89 0.81 0.81 Est GFR ( Amer) > 60 > 60 > 60 Est GFR (Non-Af Amer) > 60 > 60 > 60 Glucose 247 H 86 221 H Calcium 8.6 8.9 9.0 09/17/17 17:57 Sodium 143.9 Potassium 4.4 Chloride 118 H Carbon Dioxide 16 L Anion Gap 10 BUN 14 Creatinine 0.85 Est GFR ( Amer) > 60 Est GFR (Non-Af Amer) > 60 Glucose 149 H Calcium 8.8 Impressions: Acute Abdomen Series 09/15/17 12:41 IMPRESSION: NO RADIOGRAPHIC EVIDENCE FOR ACUTE ABDOMINAL DISEASE. Assessment & Plan - Diagnosis (1) Abdominal pain Qualifiers: Abdominal location: generalized Qualified Code(s): R10.84 - Generalized abdominal pain Is this a current diagnosis for this admission?: Yes Plan: Due to DKA. IV fluids and insulin drip. Pain control de-escalated to hydrocodone. (2) DKA (diabetic ketoacidoses) Qualifiers: Diabetes mellitus type: type 1 Diabetes mellitus complication detail: without coma Qualified Code(s): E10.10 - Type 1 diabetes mellitus with ketoacidosis without coma Is this a current diagnosis for this admission?: Yes Plan: The patient was removed from his insulin drip last night, but he is still acidotic. I tried to correct his acidosis with sodium bicarbonate and it had no effect. The patient remains in DKA. He has been returned to his insulin gtt. He should remain on it overnight at least. I will continue to follow labs. (3) Nausea and vomiting Qualifiers: Vomiting type: cyclical vomiting Vomiting Intractability: non-intractable Qualified Code(s): G43.A0 - Cyclical vomiting, not intractable Is this a current diagnosis for this admission?: Yes Plan: Resolved. The patient is tolerating a diet. (4) Acute GI bleeding Is this a current diagnosis for this admission?: Yes Plan: IV protonix. Likely due to Kaylee-Perera tear. Hemoglobin has increased from 8.8 to 9.3 over the past 24 hours. I see no need for EGD at this time. (5) Acute blood loss anemia Is this a current diagnosis for this admission?: Yes Plan: Hemoglobin has increased from 8.8 to 9.3 over the past 24 hours. (6) Acute pain Is this a current diagnosis for this admission?: Yes Plan: Decreased pain. I have discontinued IV Morphine and started low dose PO hydrocodone. (7) Alcohol abuse Is this a current diagnosis for this admission?: Yes Plan: Noted. Of course this greatly complicates care of his Type 1 DM. (8) Anemia Qualifiers: Anemia type: iron deficiency Iron deficiency anemia type: other iron deficiency Qualified Code(s): D50.8 - Other iron deficiency anemias Is this a current diagnosis for this admission?: Yes Plan: Monitor hemoglobin, check iron studies, and transfuse as necessary. Hemoglobin has increased from 8.8 to 9.3 over the past 24 hours. - Time Time Spent with patient: 35 or more minutes Medications reviewed and adjusted accordingly: Yes
[2017-09-18] MEDS: HYDROCODONE/ACETAMINOPHEN 5-325 MG TABLET PO PRN ×6 (00:13→20:36)
[2017-09-18] MEDS: PROMETHAZINE HCL INJ 25 MG/1 ML VIAL IV PRN ×6 (00:15→20:55)
[2017-09-18] MEDS: NORMAL SALINE 1000 ML 1,000 ML IV PRN (00:46)
[2017-09-18 01:06] LABS: ANION GAP 10 (5-19); BLOOD UREA NITROGEN 14 mg/dL (7-20); CALCIUM 8.7 mg/dL (8.4-10.2); CARBON DIOXIDE 15 mmol/L (22-30); CHLORIDE 120 mmol/L (98-107); GLUCOSE 125 mg/dL (75-110); POTASSIUM 4.6 mmol/L (3.6-5.0); SODIUM 145.4 mmol/L (137-145)
[2017-09-18] MEDS: DEXTROSE 5%-1/2 NORMAL SALINE 1,000 ML IV PRN ×3 (01:24→18:27)
[2017-09-18] MEDS ORDERED: SODIUM BICARBONATE 8.4% INJ 50 MEQ/50 ML DISP.SYRIN IV ONE (01:30)
[2017-09-18] MEDS: LANSOPRAZOLE 30 MG TAB.RAP.DR PO SCH ×2 (05:35→16:25)
[2017-09-18 06:24] LABS: ANION GAP 13 (5-19); BLOOD UREA NITROGEN 14 mg/dL (7-20); CALCIUM 8.9 mg/dL (8.4-10.2); CARBON DIOXIDE 15 mmol/L (22-30); CHLORIDE 119 mmol/L (98-107); GLUCOSE 165 mg/dL (75-110); POTASSIUM 4.1 mmol/L (3.6-5.0); SODIUM 146.6 mmol/L (137-145)
[2017-09-18] MEDS ORDERED: INSULIN GLARGINE,HUM.REC.ANLOG 1,000 UNIT/10 ML UNIT SUBCUT SCH (08:00)
[2017-09-18 14:15] LABS: ANION GAP 9 (5-19); BLOOD UREA NITROGEN 13 mg/dL (7-20); CALCIUM 8.8 mg/dL (8.4-10.2); CARBON DIOXIDE 16 mmol/L (22-30); CHLORIDE 120 mmol/L (98-107); GLUCOSE 117 mg/dL (75-110); POTASSIUM 4.6 mmol/L (3.6-5.0); SODIUM 144.9 mmol/L (137-145)
--- NOTE | 2017-09-18 14:23 | PDOC PROGRESS REPORT ---
Subjective Progress Note for:: 09/18/17 Subjective:: The patient still has abdominal pain. Reason For Visit: DKA,HEMATEMESIS,HYPERKALEMIA,PSEUDOHYPONATREMIA Physical Exam Vital Signs: Temp Pulse Resp BP Pulse Ox 98.3 F 101 H 16 121/76 100 09/18/17 11:39 09/18/17 11:39 09/18/17 11:39 09/18/17 11:39 09/18/17 11:39 Intake & Output 09/17/17 09/18/17 09/19/17 06:59 06:59 06:59 Intake Total 5297 5478 1789 Output Total 1625 2000 400 Balance 3672 3478 1389 Weight 66.5 kg 70.7 kg General appearance: PRESENT: no acute distress, cooperative, thin Respiratory exam: PRESENT: other - No increased work of breathing. No wheezes, rales, or rhonchi. No tactile fremitus. Pulses: PRESENT: normal dorsalis pedis pul GI/Abdominal exam: PRESENT: normal bowel sounds, soft. ABSENT: hernia, mass, tenderness Extremities exam: PRESENT: clubbing. ABSENT: joint swelling, tenderness Musculoskeletal exam: PRESENT: normal inspection. ABSENT: deformity, dislocation Neurological exam: PRESENT: alert, awake, oriented to person, oriented to place , oriented to time, oriented to situation, CN II-XII grossly intact. ABSENT: motor sensory deficit Skin exam: PRESENT: dry, intact, warm Results Laboratory Results: 09/16/17 03:57 09/17/17 09/18/17 09/18/17 17:57 00:12 05:52 Sodium 143.9 145.4 H 146.6 H Potassium 4.4 4.6 4.1 Chloride 118 H 120 H 119 H Carbon Dioxide 16 L 15 L 15 L Anion Gap 10 10 13 BUN 14 14 14 Creatinine 0.85 0.94 0.78 Est GFR ( Amer) > 60 > 60 > 60 Est GFR (Non-Af Amer) > 60 > 60 > 60 Glucose 149 H 125 H 165 H Calcium 8.8 8.7 8.9 Impressions: Acute Abdomen Series 09/15/17 12:41 IMPRESSION: NO RADIOGRAPHIC EVIDENCE FOR ACUTE ABDOMINAL DISEASE. Assessment & Plan - Diagnosis (1) Abdominal pain Qualifiers: Abdominal location: generalized Qualified Code(s): R10.84 - Generalized abdominal pain Is this a current diagnosis for this admission?: Yes Plan: Due to DKA. IV fluids and insulin drip. Pain control de-escalated to hydrocodone. I will check an abdominal film. (2) DKA (diabetic ketoacidoses) Qualifiers: Diabetes mellitus type: type 1 Diabetes mellitus complication detail: without coma Qualified Code(s): E10.10 - Type 1 diabetes mellitus with ketoacidosis without coma Is this a current diagnosis for this admission?: Yes Plan: The patient was removed from his insulin drip last night, but he is still acidotic. I tried to correct his acidosis with sodium bicarbonate and it had no effect. The patient remains in DKA. Continue insulin gtt. (3) Nausea and vomiting Qualifiers: Vomiting type: cyclical vomiting Vomiting Intractability: non-intractable Qualified Code(s): G43.A0 - Cyclical vomiting, not intractable Is this a current diagnosis for this admission?: Yes Plan: Resolved. The patient is tolerating a diet. (4) Acute GI bleeding Is this a current diagnosis for this admission?: Yes Plan: IV protonix. Likely due to Kaylee-Perera tear. Hemoglobin is stable. I see no need for EGD at this time. (5) Acute blood loss anemia Is this a current diagnosis for this admission?: Yes Plan: Hemoglobin stable. (6) Acute pain Is this a current diagnosis for this admission?: Yes Plan: Decreased pain. I have discontinued IV Morphine and started low dose PO hydrocodone. (7) Alcohol abuse Is this a current diagnosis for this admission?: Yes Plan: Noted. Of course this greatly complicates care of his Type 1 DM. (8) Anemia Qualifiers: Anemia type: iron deficiency Iron deficiency anemia type: other iron deficiency Qualified Code(s): D50.8 - Other iron deficiency anemias Is this a current diagnosis for this admission?: Yes Plan: Monitor hemoglobin, check iron studies, and transfuse as necessary. Hemoglobin has increased from 8.8 to 9.3 over the past 24 hours. - Time Time Spent with patient: 25-34 minutes Medications reviewed and adjusted accordingly: Yes
[2017-09-18] MEDS: NORMAL SALINE 100 ML with INSULIN REGULAR, HUMAN 100 UNIT IV PRN ×2 (16:34)
[2017-09-18 19:43] LABS: ANION GAP 11 (5-19); BLOOD UREA NITROGEN 15 mg/dL (7-20); CALCIUM 8.7 mg/dL (8.4-10.2); CARBON DIOXIDE 15 mmol/L (22-30); CHLORIDE 117 mmol/L (98-107); GLUCOSE 122 mg/dL (75-110); POTASSIUM 4.5 mmol/L (3.6-5.0); SODIUM 143.1 mmol/L (137-145)
[2017-09-19] MEDS: HYDROCODONE/ACETAMINOPHEN 5-325 MG TABLET PO PRN ×6 (00:25→22:40)
[2017-09-19] MEDS: PROMETHAZINE HCL INJ 25 MG/1 ML VIAL IV PRN ×6 (00:27→22:41)
[2017-09-19 01:45] LABS: ANION GAP 8 (5-19); BLOOD UREA NITROGEN 17 mg/dL (7-20); CALCIUM 8.8 mg/dL (8.4-10.2); CARBON DIOXIDE 17 mmol/L (22-30); CHLORIDE 118 mmol/L (98-107); GLUCOSE 175 mg/dL (75-110); POTASSIUM 4.5 mmol/L (3.6-5.0)
[2017-09-19] MEDS: DEXTROSE 5%-1/2 NORMAL SALINE 1,000 ML IV PRN ×3 (02:30→19:28)
[2017-09-19] MEDS: LANSOPRAZOLE 30 MG TAB.RAP.DR PO SCH ×2 (05:05→17:56)
[2017-09-19 08:58] LABS: ANION GAP 9 (5-19); BLOOD UREA NITROGEN 17 mg/dL (7-20); CALCIUM 9.1 mg/dL (8.4-10.2); CARBON DIOXIDE 18 mmol/L (22-30); CHLORIDE 117 mmol/L (98-107); GLUCOSE 122 mg/dL (75-110); POTASSIUM 4.4 mmol/L (3.6-5.0); SODIUM 144.3 mmol/L (137-145)
[2017-09-19] MEDS: NORMAL SALINE 1000 ML 1,000 ML IV PRN (10:12)
--- NOTE | 2017-09-19 12:48 | PDOC PROGRESS REPORT ---
Subjective Progress Note for:: 09/19/17 Subjective:: The patient is without new complaints. Resting comfortably. Reason For Visit: DKA,HEMATEMESIS,HYPERKALEMIA,PSEUDOHYPONATREMIA Physical Exam Vital Signs: Temp Pulse Resp BP Pulse Ox 98.1 F 101 H 16 115/76 100 09/19/17 08:33 09/19/17 08:33 09/19/17 04:25 09/19/17 08:33 09/19/17 08:33 Intake & Output 09/18/17 09/19/17 09/20/17 06:59 06:59 06:59 Intake Total 5478 4865 1030 Output Total 1999 1000 Balance 3478 3865 1030 Weight 70.7 kg 73.5 kg General appearance: PRESENT: no acute distress, cooperative, thin Respiratory exam: PRESENT: other - No increased work of breathing. No wheezes, rales, or rhonchi. No tactile fremitus. Cardiovascular exam: PRESENT: RRR, other - No lateral PMI. No thrills.. ABSENT : gallop, rubs, systolic murmur Pulses: PRESENT: normal dorsalis pedis pul GI/Abdominal exam: PRESENT: normal bowel sounds, soft, other - scaffoid. ABSENT : distended, hernia, mass, organolmegaly, tenderness Rectal exam: PRESENT: deferred Extremities exam: PRESENT: other - Stitches in right thumb. No erythema or swelling.. ABSENT: calf tenderness, joint swelling, tenderness Musculoskeletal exam: PRESENT: normal inspection. ABSENT: deformity, dislocation, tenderness Neurological exam: PRESENT: alert, awake, oriented to person, oriented to place , oriented to time, oriented to situation, CN II-XII grossly intact. ABSENT: motor sensory deficit Psychiatric exam: PRESENT: appropriate affect, depressed, normal mood Skin exam: PRESENT: dry, intact, warm Results Laboratory Results: 09/16/17 03:57 09/19/17 07:44 09/18/17 09/18/17 09/19/17 13:40 19:22 01:09 Sodium 144.9 143.1 143.0 Potassium 4.6 4.5 4.5 Chloride 120 H 117 H 118 H Carbon Dioxide 16 L 15 L 17 L Anion Gap 9 11 8 BUN 13 15 17 Creatinine 0.97 1.00 1.04 Est GFR ( Amer) > 60 > 60 > 60 Est GFR (Non-Af Amer) > 60 > 60 > 60 Glucose 117 H 122 H 175 H Calcium 8.8 8.7 8.8 09/19/17 07:44 Sodium 144.3 Potassium 4.4 Chloride 117 H Carbon Dioxide 18 L Anion Gap 9 BUN 17 Creatinine 0.88 Est GFR ( Amer) > 60 Est GFR (Non-Af Amer) > 60 Glucose 122 H Calcium 9.1 Impressions: Acute Abdomen Series 09/15/17 12:41 IMPRESSION: NO RADIOGRAPHIC EVIDENCE FOR ACUTE ABDOMINAL DISEASE. Assessment & Plan - Diagnosis (1) Abdominal pain Qualifiers: Abdominal location: generalized Qualified Code(s): R10.84 - Generalized abdominal pain Is this a current diagnosis for this admission?: Yes Plan: Resolving. (2) DKA (diabetic ketoacidoses) Qualifiers: Diabetes mellitus type: type 1 Diabetes mellitus complication detail: without coma Qualified Code(s): E10.10 - Type 1 diabetes mellitus with ketoacidosis without coma Is this a current diagnosis for this admission?: Yes Plan: The patient was removed from his insulin drip last night, but he is still acidotic. The patient remains in DKA. Continue insulin gtt and IV fluids. (3) Nausea and vomiting Qualifiers: Vomiting type: cyclical vomiting Vomiting Intractability: non-intractable Qualified Code(s): G43.A0 - Cyclical vomiting, not intractable Is this a current diagnosis for this admission?: Yes Plan: Resolved. The patient is tolerating a diet. (4) Acute GI bleeding Is this a current diagnosis for this admission?: Yes Plan: IV protonix. Likely due to Kaylee-Perera tear. Hemoglobin is stable. I see no need for EGD at this time. (5) Acute blood loss anemia Is this a current diagnosis for this admission?: Yes (6) Acute pain Is this a current diagnosis for this admission?: Yes Plan: Decreased pain. I have discontinued IV Morphine and started low dose PO hydrocodone. (7) Alcohol abuse Is this a current diagnosis for this admission?: Yes (8) Anemia Qualifiers: Anemia type: iron deficiency Iron deficiency anemia type: other iron deficiency Qualified Code(s): D50.8 - Other iron deficiency anemias Is this a current diagnosis for this admission?: Yes (9) Cocaine abuse Is this a current diagnosis for this admission?: Yes Plan: UDS positive on admission. This is likely a laarge part, along with alcohol abuse, of the patient's difficulty managing his DM. - Time Time Spent with patient: 25-34 minutes Anticipated discharge: Home
[2017-09-19] MEDS: NORMAL SALINE 100 ML with INSULIN REGULAR, HUMAN 100 UNIT IV PRN ×2 (13:22)
--- NOTE | 2017-09-19 13:36 | RADIOLOGY REPORT (SQ) ---
EXAM DESCRIPTION: KUB/ABDOMEN (SINGLE VIEW) COMPLETED DATE/TIME: 09/19/2017 1:27 pm REASON FOR STUDY: abdominal pain COMPARISON: 09/15/2017 NUMBER OF VIEWS: One view. TECHNIQUE: Supine radiographic image of the abdomen acquired. LIMITATIONS: None. FINDINGS: BOWEL GAS PATTERN: Abundant gas and fecal material throughout nondilated colon. CALCIFICATIONS: No suspicious calcifications. SOFT TISSUES: No gross mass or suggestion of organomegaly. HARDWARE: None. BONES: No bone lesions or fracture. OTHER: No other significant finding. IMPRESSION: Fecal retention. Reading location - IP/workstation name: [email or web address]
[2017-09-19 15:41] LABS: ANION GAP 11 (5-19); BLOOD UREA NITROGEN 15 mg/dL (7-20); CALCIUM 8.7 mg/dL (8.4-10.2); CARBON DIOXIDE 17 mmol/L (22-30); CHLORIDE 114 mmol/L (98-107); GLUCOSE 158 mg/dL (75-110); POTASSIUM 4.5 mmol/L (3.6-5.0); SODIUM 141.9 mmol/L (137-145)
[2017-09-19 19:51] LABS: ANION GAP 10 (5-19); BLOOD UREA NITROGEN 16 mg/dL (7-20); CALCIUM 8.8 mg/dL (8.4-10.2); CARBON DIOXIDE 16 mmol/L (22-30); CHLORIDE 116 mmol/L (98-107); GLUCOSE 91 mg/dL (75-110); POTASSIUM 4.5 mmol/L (3.6-5.0); SODIUM 141.5 mmol/L (137-145)
[2017-09-20] MEDS: NORMAL SALINE 1000 ML 1,000 ML IV PRN ×2 (00:11→16:08)
[2017-09-20 02:52] LABS: ANION GAP 10 (5-19); BLOOD UREA NITROGEN 16 mg/dL (7-20); CALCIUM 8.7 mg/dL (8.4-10.2); CARBON DIOXIDE 16 mmol/L (22-30); CHLORIDE 112 mmol/L (98-107); GLUCOSE 251 mg/dL (75-110); SODIUM 137.9 mmol/L (137-145)
[2017-09-20] MEDS: HYDROCODONE/ACETAMINOPHEN 5-325 MG TABLET PO PRN ×5 (03:39→19:58)
[2017-09-20] MEDS: PROMETHAZINE HCL INJ 25 MG/1 ML VIAL IV PRN ×5 (03:40→19:59)
[2017-09-20] MEDS: DEXTROSE 5%-1/2 NORMAL SALINE 1,000 ML IV PRN ×2 (03:44→12:00)
[2017-09-20] MEDS: LANSOPRAZOLE 30 MG TAB.RAP.DR PO SCH ×2 (06:09→16:06)
[2017-09-20 09:17] LABS: ANION GAP 11 (5-19); BLOOD UREA NITROGEN 15 mg/dL (7-20); CARBON DIOXIDE 16 mmol/L (22-30); CHLORIDE 112 mmol/L (98-107); GLUCOSE 237 mg/dL (75-110); POTASSIUM 5.4 mmol/L (3.6-5.0)
[2017-09-20] MEDS: NORMAL SALINE 100 ML with INSULIN REGULAR, HUMAN 100 UNIT IV PRN ×2 (11:59)
[2017-09-20] MEDS ORDERED: GLUCAGON,HUMAN RECOMB 1 MG INJ IM PRN (13:08)
[2017-09-20] MEDS ORDERED: DEXTROSE 50%-WATER 25 GM/50 ML DISP.SYRIN IV PRN ×2 (13:08)
[2017-09-20] MEDS ORDERED: DEXTROSE 40% GEL 15 GM TUBE PO PRN ×2 (13:08)
[2017-09-20] MEDS ORDERED: INSULIN GLARGINE,HUM.REC.ANLOG 1,000 UNIT/10 ML UNIT SUBCUT ONE (14:30)
[2017-09-20] MEDS ORDERED: INSULIN GLARGINE,HUM.REC.ANLOG 300 UNIT/3 ML INSULN.PEN SUBCUT ONE (15:00)
[2017-09-20] MEDS ORDERED: DOCUSATE SODIUM 100 MG CAPSULE PO ONE (15:57)
[2017-09-20] MEDS ORDERED: BISACODYL 10 MG SUPP.RECT PR ONE (15:58)
[2017-09-20] MEDS ORDERED: HUM INSULIN NPH/REG INSULIN HM 100 UNIT/1 ML 3 ML SUBCUT ONE ×3 (16:00→19:02)
--- NOTE | 2017-09-20 16:11 | PDOC PROGRESS REPORT ---
Subjective Progress Note for:: 09/20/17 Subjective:: The patient is without new complaints. Resting comfortably. Reason For Visit: DKA,HEMATEMESIS,HYPERKALEMIA,PSEUDOHYPONATREMIA Physical Exam Vital Signs: Temp Pulse Resp BP Pulse Ox 98.9 F 99 16 136/92 H 100 09/20/17 11:32 09/20/17 11:32 09/20/17 11:32 09/20/17 11:32 09/20/17 11:32 Intake & Output 09/19/17 09/20/17 09/21/17 06:59 06:59 06:59 Intake Total 4865 5881 2192 Output Total 1000 700 700 Balance 3865 5181 1492 Weight 73.5 kg 72.9 kg General appearance: PRESENT: no acute distress, cooperative, thin Respiratory exam: PRESENT: other - No increased work of breathing.. ABSENT: rales, rhonchi, wheezes Cardiovascular exam: PRESENT: RRR, other - No lateral PMI. No thrills.. ABSENT : gallop, rubs, systolic murmur Pulses: PRESENT: normal dorsalis pedis pul GI/Abdominal exam: PRESENT: distended, normal bowel sounds, soft, tenderness - Diffuse. ABSENT: hernia, mass Rectal exam: PRESENT: deferred Extremities exam: ABSENT: clubbing, tenderness, +2 edema Musculoskeletal exam: PRESENT: normal inspection. ABSENT: deformity, dislocation Neurological exam: PRESENT: alert, awake, oriented to person, oriented to place , oriented to time, oriented to situation, CN II-XII grossly intact. ABSENT: motor sensory deficit Skin exam: PRESENT: dry, intact, warm Results Laboratory Results: 09/16/17 03:57 09/20/17 08:19 09/19/17 09/20/17 09/20/17 19:26 02:21 08:19 Sodium 141.5 137.9 139.0 Potassium 4.5 5.0 5.4 H Chloride 116 H 112 H 112 H Carbon Dioxide 16 L 16 L 16 L Anion Gap 10 10 11 BUN 16 16 15 Creatinine 0.87 0.87 0.77 Est GFR ( Amer) > 60 > 60 > 60 Est GFR (Non-Af Amer) > 60 > 60 > 60 Glucose 91 251 H 237 H Calcium 8.8 8.7 9.0 Impressions: Acute Abdomen Series 09/15/17 12:41 IMPRESSION: NO RADIOGRAPHIC EVIDENCE FOR ACUTE ABDOMINAL DISEASE. KUB X-Ray 09/19/17 00:00 IMPRESSION: Fecal retention. Assessment & Plan - Diagnosis (1) Abdominal pain Qualifiers: Abdominal location: generalized Qualified Code(s): R10.84 - Generalized abdominal pain Is this a current diagnosis for this admission?: Yes Plan: The patient has just eaten a large fried chicken lunch, but is complaining of abdominal pain. KUB demonstrates stool and gas throughout the colonic confines. Will treat for constipation. (2) DKA (diabetic ketoacidoses) Qualifiers: Diabetes mellitus type: type 1 Diabetes mellitus complication detail: without coma Qualified Code(s): E10.10 - Type 1 diabetes mellitus with ketoacidosis without coma Is this a current diagnosis for this admission?: Yes Plan: CO2 remains low, although the patient's gap has closed. Not improving with insulin gtt. Glucoses high. Will wean off of drip and restart lantus and SSI. (3) Nausea and vomiting Qualifiers: Vomiting type: cyclical vomiting Vomiting Intractability: non-intractable Qualified Code(s): G43.A0 - Cyclical vomiting, not intractable Is this a current diagnosis for this admission?: Yes Plan: Resolved. The patient is tolerating a diet. (4) Acute GI bleeding Is this a current diagnosis for this admission?: Yes Plan: IV protonix. Likely due to Kaylee-Perera tear. Hemoglobin is stable. I see no need for EGD at this time. (5) Acute blood loss anemia Is this a current diagnosis for this admission?: Yes Plan: Hemoglobin stable. (6) Acute pain Is this a current diagnosis for this admission?: Yes Plan: Decreased pain. I have discontinued IV Morphine and started low dose PO hydrocodone. (7) Alcohol abuse Is this a current diagnosis for this admission?: Yes Plan: Noted. Of course this greatly complicates care of his Type 1 DM. (8) Anemia Qualifiers: Anemia type: iron deficiency Iron deficiency anemia type: other iron deficiency Qualified Code(s): D50.8 - Other iron deficiency anemias Is this a current diagnosis for this admission?: Yes Plan: Monitor hemoglobin, check iron studies, and transfuse as necessary. Hemoglobin has increased from 8.8 to 9.3 over the past 24 hours. (9) Cocaine abuse Is this a current diagnosis for this admission?: Yes Plan: UDS positive on admission. This is likely a large part, along with alcohol abuse , of the patient's difficulty managing his DM. - Time Time Spent with patient: 25-34 minutes Medications reviewed and adjusted accordingly: Yes Anticipated discharge: Home
[2017-09-20 16:40] LABS: ANION GAP 12 (5-19); BLOOD UREA NITROGEN 16 mg/dL (7-20); CALCIUM 8.8 mg/dL (8.4-10.2); CARBON DIOXIDE 14 mmol/L (22-30); CHLORIDE 111 mmol/L (98-107); GLUCOSE 347 mg/dL (75-110); POTASSIUM 5.2 mmol/L (3.6-5.0); SODIUM 137.1 mmol/L (137-145)
[2017-09-20 17:40] LABS: IRON(TIBC) 16.7 ug/dL (49-181)
[2017-09-20 21:09] LABS: ABSOLUTE RETICS # 0.091 10^6/uL (0.028-0.122); RETICULOCYTE COUNT (AUTO) 2.48 % (0.66-2.85)
[2017-09-20 21:26] LABS: ANION GAP 13 (5-19); BLOOD UREA NITROGEN 19 mg/dL (7-20); CALCIUM 9.1 mg/dL (8.4-10.2); CARBON DIOXIDE 14 mmol/L (22-30); CHLORIDE 111 mmol/L (98-107); GLUCOSE 397 mg/dL (75-110); POTASSIUM 5.2 mmol/L (3.6-5.0)
[2017-09-20] MEDS: INSULIN REG, HUMAN 100 UNIT/ML 3 ML VIAL (PYX) SUBCUT PRN (21:52)
[2017-09-21] MEDS: PROMETHAZINE HCL INJ 25 MG/1 ML VIAL IV PRN ×2 (00:22→06:19)
[2017-09-21] MEDS: HYDROCODONE/ACETAMINOPHEN 5-325 MG TABLET PO PRN ×2 (00:22→06:20)
[2017-09-21] MEDS: LANSOPRAZOLE 30 MG TAB.RAP.DR PO SCH (05:22)
[2017-09-21] MEDS: NORMAL SALINE 1000 ML 1,000 ML IV PRN (05:22)
[2017-09-21] MEDS: INSULIN REG, HUMAN 100 UNIT/ML 3 ML VIAL (PYX) SUBCUT PRN (08:15)
--- NOTE | 2017-09-21 09:47 | PDOC DISCHARGE SUMMARY ---
General - Admit/Disc Date/PCP Admission Date/Primary Care Provider: 09/15/17 15:56 Discharge Date: 09/21/17 - Discharge Diagnosis (1) Acute on chronic blood loss anemia Is this a current diagnosis for this admission?: Yes (2) Acute on chronic GI bleeding Is this a current diagnosis for this admission?: Yes (3) Abdominal pain Is this a current diagnosis for this admission?: Yes (4) DKA (diabetic ketoacidoses) Is this a current diagnosis for this admission?: Yes (5) Tobacco abuse Is this a current diagnosis for this admission?: Yes (6) Vomiting Is this a current diagnosis for this admission?: Yes - Additional Information Resuscitation Status: Full Code Home Medications: Insulin Glargine,Hum.rec.anlog [Lantus Solostar] 35 units SQ DAILY 09/15/17 Insulin Lispro [Humalog Insulin (Lispro) 100 unit/mL] 0 unit SQ .SLIDING SCALE 09/15/17 History of Present Illness History of Present Illness: CHESTER MCKEON is a 37 year old male who is here very frequently due to DKA. He is a Type 1 DM. He was just discharged from this facility on 09/12/2017 after a stay for DKA. Arrangements had been made with [facility] to make insulin available to the patient. I was informed by the ED physician that the clinic had it available to him, but he never came to pick it up. The patient's story varies from that he didn't know that he could pick his insulin up before his clinic visit toda (3 days after he was discharged from the hospital) to that he went to [facility] to warehouse picker his insulin and they had "sent it back" because he had to requalify. In any case it seems that this is the same issue every time the patient is discharged from the hospital after a stay for DKA. Today the patient presents with 2 days of nausea and vomiting and abdominal pain with pink tinged emesis. He is found to have a glucose of 1100 and pH of 7.16. K is 6.2 and Na is 119 (which corrects to 135 or 143 depending on the method used to correct sodium for glucose). Hospital Course Hospital Course: This is 37 years old black male patient with multiple admission to this hospital for DKA and cellulitis. During this admission patient was found to be hypoglycemic with DKA for which she was managed with insulin drip. Patient also found to have acute on chronic blood loss anemia due to acute on chronic GI bleeding. Patient had had multiple EGDs and colonoscopy in this facility and outlying facility as well. Patient has been managed with IV Protonix. His hemoglobin remained stable at 9.3. Patient has long-standing history of noncompliance with his insulin. I seen patient resting in bed comfortably. He is not in pain or distress he finished his breakfast and he tolerates well patient advised to pick his insulin from his community clinic. Physical Exam Vital Signs: Temp Pulse Resp BP Pulse Ox 98.7 F 101 H 16 105/68 100 09/21/17 07:35 09/21/17 07:35 09/21/17 07:35 09/21/17 07:35 09/21/17 07:35 Intake & Output 09/20/17 09/21/17 09/22/17 06:59 06:59 06:59 Intake Total 5881 5829 Output Total 700 700 Balance 5181 5129 Weight 72.9 kg 71.1 kg General appearance: PRESENT: no acute distress Eye exam: PRESENT: conjunctiva pink Mouth exam: PRESENT: moist Neck exam: ABSENT: carotid bruit, JVD, lymphadenopathy, thyromegaly Respiratory exam: PRESENT: clear to auscultation alfonso. ABSENT: rales, rhonchi, wheezes Cardiovascular exam: PRESENT: RRR. ABSENT: diastolic murmur, rubs, systolic murmur GI/Abdominal exam: PRESENT: normal bowel sounds, soft. ABSENT: distended, guarding, mass, organolmegaly, rebound, tenderness Neurological exam: PRESENT: alert, awake, oriented to person, oriented to place , oriented to time, oriented to situation Psychiatric exam: PRESENT: appropriate affect, normal mood Results Laboratory Results: 09/16/17 03:57 09/20/17 20:51 09/20/17 09/20/17 09/20/17 08:19 15:48 15:48 Retic Count (auto) Absolute Retic Sodium 139.0 137.1 Potassium 5.4 H 5.2 H Chloride 112 H 111 H Carbon Dioxide 16 L 14 L Anion Gap 11 12 BUN 15 16 Creatinine 0.77 1.04 Est GFR ( Amer) > 60 > 60 Est GFR (Non-Af Amer) > 60 > 60 Glucose 237 H 347 H Calcium 9.0 8.8 Iron 16.7 L TIBC 465 H % Saturation 4 Ferritin 27.60 Vitamin B12 850.0 Folate 10.10 09/20/17 09/20/17 20:51 20:51 Retic Count (auto) 2.48 Absolute Retic 0.091 Sodium 138.0 Potassium 5.2 H Chloride 111 H Carbon Dioxide 14 L Anion Gap 13 BUN 19 Creatinine 1.02 Est GFR ( Amer) > 60 Est GFR (Non-Af Amer) > 60 Glucose 397 H Calcium 9.1 Iron TIBC % Saturation Ferritin Vitamin B12 Folate Impressions: Acute Abdomen Series 09/15/17 12:41 IMPRESSION: NO RADIOGRAPHIC EVIDENCE FOR ACUTE ABDOMINAL DISEASE. KUB X-Ray 09/19/17 00:00 IMPRESSION: Fecal retention. Qualifiers - * PATIENT BEING DISCHARGED WITH ANY OF THE FOLLOWING DIAGNOSIS: No
[2017-09-21] MEDS ORDERED: INSULIN GLARGINE,HUM.REC.ANLOG 300 UNIT/3 ML INSULN.PEN SUBCUT SCH (10:00)
[2017-09-21] MEDS ORDERED: POLYETHYLENE GLYCOL 3350 POWDER 17 GM/1 PACKET PO SCH (10:00)
[2017-09-21 10:34] VITALS: BP 114/73
== END 2017-09-21 12:36 | disposition home or self-care (01) | DRG 637 ==
LOC: ER 12:20 → EH 15:56 → UNDOADMIN 16:12 → EH 16:12 → ICU 19:23 → 3N 09-17 22:40
PROVIDERS: ADMIT Internal Medicine; ATTEND Internal Medicine
DX: E10.10 Type 1 diabetes mellitus with ketoacidosis without coma (principal); K22.6 Gastro-esophageal laceration-hemorrhage syndrome; K92.0 Hematemesis; D62 Acute posthemorrhagic anemia; E87.5 Hyperkalemia; D50.0 Iron deficiency anemia secondary to blood loss (chronic); F17.210 Nicotine dependence, cigarettes, uncomplicated; E78.00 Pure hypercholesterolemia, unspecified; I10 Essential (primary) hypertension; K21.9 Gastro-esophageal reflux disease without esophagitis; F32.9 Major depressive disorder, single episode, unspecified; G43.A0 Cyclical vomiting, in migraine, not intractable; D50.8 Other iron deficiency anemias; F14.10 Cocaine abuse, uncomplicated; Z91.19 Patient's noncompliance with other medical treatment and regimen; Z91.14 Patient's other noncompliance with medication regimen; Z86.14 Personal history of Methicillin resistant Staphylococcus aureus infection; Z79.4 Long term (current) use of insulin; Z88.8 Allergy status to other drugs, medicaments and biological substances; Z83.3 Family history of diabetes mellitus; Z82.49 Family history of ischemic heart disease and other diseases of the circulatory system
CPT/HCPCS: 36415; 74018; 74022; 80048; 80053; 80307; 81001; 82010; 82607; 82728; 82746; 82803; 82962; 83540; 83550; 83690; 83735; 84100; 85025; 85045; 85610; 96361; 96372; 96374; 99291; J0780; J1815; J2270; J2550; J3010; J3490; J7030; S0164

== ENCOUNTER 2017-09-30 08:15 | Emergency (ER) | payer SELFPAY ==
[2017-09-30 08:23] VITALS: BP 127/95
[2017-09-30] MEDS ORDERED: OXYCODONE-ACETAMINOPHEN 5-325 MG TABLET PO ONE (09:11)
--- NOTE | 2017-09-30 09:15 | ER Document Report ---
HPI - HPI Patient complains to provider of: Right knee injury Onset: Just prior to arrival Onset/Duration: Sudden Quality of pain: Sharp Pain Level: 4 Context: Patient states that he slipped on a root and twisted his right knee today. Patient with right knee pain and swelling. Associated Symptoms: Other - Right knee pain Exacerbated by: Standing, Movement, Walking Relieved by: Denies Similar symptoms previously: No Recently seen / treated by doctor: No - ROS ROS below otherwise negative: Yes Systems Reviewed and Negative: Yes All other systems reviewed and negative - CONSTITUTIONAL Constitutional: DENIES: Fever - RESPIRATORY Respiratory: DENIES: Trouble Breathing - GASTROINTESTINAL Gastrointestinal: DENIES: Nausea, Patient vomiting - REPRODUCTIVE Reproductive: DENIES: : - MUSCULOSKELETAL Musculoskeletal: REPORTS: Extremity pain. DENIES: Back Pain, Neck Pain - DERM Skin Color: Normal Past Medical History - General Information source: Patient - Social History Smoking Status: Former Smoker Chew tobacco use (# tins/day): No Frequency of alcohol use: None Drug Abuse: Marijuana Occupation: None Family History: Reviewed & Not Pertinent, DM, Hyperlipidemia, Hypertension Patient has suicidal ideation: No Patient has homicidal ideation: No - Past Medical History Cardiac Medical History: Reports: Hx Hypercholesterolemia, Hx Hypertension - Taken off medication for same. Denies: Hx Atrial Fibrillation, Hx Congestive Heart Failure, Hx Coronary Artery Disease, Hx Heart Attack, Hx Pulmonary Embolism Pulmonary Medical History: Denies: Hx Asthma, Hx COPD, Hx Sleep Apnea Neurological Medical History: Denies: Hx Seizures Endocrine Medical History: Reports: Hx Diabetes Mellitus Type 1. Denies: Hx Hyperthyroidism, Hx Hypothyroidism Renal/ Medical History: Denies: Hx End Stage Renal Disease, Hx Peritoneal Dialysis GI Medical History: Reports: Hx Gastroesophageal Reflux Disease, Hx Pancreatitis. Denies: Hx Cirrhosis, Hx Hepatitis Musculoskeletal Medical History: Denies Hx Arthritis Psychiatric Medical History: Reports: Hx Depression Infectious Medical History: Reports: Hx MRSA. Denies: Hx Hepatitis Past Surgical History: Reports: Hx Orthopedic Surgery - back, left long finger PIP disarticulation, now s/p right hand I and D - Immunizations Hx Diphtheria, Pertussis, Tetanus Vaccination: Yes Hx Pneumococcal Vaccination: 11/09/11 Vertical Provider Document - CONSTITUTIONAL Agree With Documented VS: Yes Exam Limitations: No Limitations General Appearance: WD/WN, No Apparent Distress - INFECTION CONTROL TRAVEL OUTSIDE OF THE [place] IN LAST 30 DAYS: No - HEENT HEENT: Atraumatic, Normocephalic - NECK Neck: Normal Inspection - RESPIRATORY Respiratory: Breath Sounds Normal, No Respiratory Distress - CARDIOVASCULAR Cardiovascular: Regular Rate, Regular Rhythm Pulses: Normal: Dorsalis pedis - BACK Back: Normal Inspection - MUSCULOSKELETAL/EXTREMETIES Musculoskeletal/Extremeties: MAEW, Tender - Right knee joint tenderness to superior and inferior compartments. Patient with moderate joint effusion to superior aspect of knee. No laxity with varus or valgus maneuvers., Edema - NEURO Level of Consciousness: Awake, Alert, Appropriate Motor/Sensory: No Motor Deficit - DERM Integumentary: Warm, Dry Course - Vital Signs Vital signs: Temp Pulse Resp BP Pulse Ox 97.5 F 90 20 127/95 H 100 09/30/17 08:22 09/30/17 08:22 09/30/17 08:22 09/30/17 08:22 09/30/17 08:22 - Diagnostic Test Radiology reviewed: Pending, Image reviewed Procedures - Immobilization Right Knee Pre-Proc Neuro Vasc Exam: Normal Immobilizer type: Daron wrap, Knee immobilizer Performed by: PCT Post-Proc Neuro Vasc Exam: Normal Alignment checked and good: Yes Discharge - Discharge Clinical Impression: Fracture of proximal end of tibia Qualifiers: Encounter type: initial encounter Fracture type: closed Fracture morphology: unspecified fracture morphology Laterality: right Qualified Code(s): S82.101A - Unspecified fracture of upper end of right tibia, initial encounter for closed fracture Condition: Stable Disposition: HOME, SELF-CARE Instructions: Use of Crutches ([facility]), Fracture ([facility]), Ice & Elevation ([facility]), Knee Immobilizing Splint ([facility]), Oral Narcotic Medication ([facility]) Additional Instructions: Return immediately for any new or worsening symptoms Followup with your primary care provider, call tomorrow to make a followup appointment No weightbearing to right lower extremity Follow-up with orthopedics, call today to make a follow-up appointment. Prescriptions: Oxycodone HCl/Acetaminophen [Percocet 5-325 mg Tablet] 1 tab PO ASDIR PRN #15 tablet PRN Reason: Referrals: CHELLE PASCUAL MD [ACTIVE STAFF] - Follow up tomorrow
[2017-09-30] MEDS ORDERED: OXYCODONE-ACETAMINOPHEN 5-325 MG TABLET ONE (09:23)
--- NOTE | 2017-09-30 09:30 | RADIOLOGY REPORT (SQ) ---
EXAM DESCRIPTION: KNEE LEFT 4 VIEW COMPLETED DATE/TIME: 09/30/2017 9:11 am REASON FOR STUDY: fall COMPARISON: None. NUMBER OF VIEWS: Four views. TECHNIQUE: AP, lateral, and both oblique radiographic images acquired of the left knee. LIMITATIONS: None. FINDINGS: MINERALIZATION: Osteopenia. BONES: Nondisplaced fracture lateral tibial plateau. JOINT: Joint effusion. SOFT TISSUES: No soft tissue swelling. No radio-opaque foreign body. OTHER: No other significant finding. IMPRESSION: Nondisplaced fracture lateral tibial plateau. TECHNICAL DOCUMENTATION: JOB ID: [id number] [email or web address]- All Rights Reserved Reading location - IP/workstation name: [email or web address]
== END 2017-09-30 09:42 | disposition home or self-care (01) ==
LOC: ER 08:15
DX: S82.145A Nondisplaced bicondylar fracture of left tibia, initial encounter for closed fracture (principal); M25.561 Pain in right knee; X50.0XXA Overexertion from strenuous movement or load, initial encounter; I10 Essential (primary) hypertension; E10.9 Type 1 diabetes mellitus without complications; Z87.891 Personal history of nicotine dependence
CPT/HCPCS: 99283

== ENCOUNTER 2017-10-28 06:38 | Inpatient (IN) | payer SELFPAY ==
--- NOTE | 2017-10-28 07:00 | ER Document Report ---
ED Blood Sugar Problem - General Mode of Arrival: Ambulatory Information source: Patient TRAVEL OUTSIDE OF THE [place] IN LAST 30 DAYS: No <CHESTER PATTERSON - Last Filed: 10/28/17 09:08> <BRI EASTON - Last Filed: 10/28/17 10:31> - General Stated Complaint: SUGAR LEVELS Time Seen by Provider: 10/28/17 06:55 Notes: 37-year-old male who presents to the emergency department today with complaints of being out of his long-acting insulin. Patient states he took his last dose of short-acting insulin yesterday. Patient states his sugars have been "high". Patient states he thinks he might be in DKA because his symptoms today are similar to previous times he has been in DKA however his generalized abdominal pain is a little worse today. Patient states he has vomited for the last 2 days. (CHESTER PATTERSON) - Related Data Allergies/Adverse Reactions: ondansetron [From Zofran (as hydrochloride)] Allergy (Verified 10/28/17 07:25) Past Medical History - General Information source: Patient - Social History Smoking Status: Never Smoker Cigarette use (# per day): No Frequency of alcohol use: None Drug Abuse: Cocaine - frequently positive, Marijuana - frequently positive Lives with: Family Family History: Reviewed & Not Pertinent, DM, Hyperlipidemia, Hypertension - Past Medical History Cardiac Medical History: Reports: Hx Hypercholesterolemia, Hx Hypertension - Taken off medication for same. Pulmonary Medical History: Endocrine Medical History: Reports: Hx Diabetes Mellitus Type 1 GI Medical History: Reports: Hx Gastroesophageal Reflux Disease, Hx Pancreatitis Psychiatric Medical History: Reports: Hx Depression Infectious Medical History: Reports: Hx MRSA Past Surgical History: Reports: Hx Orthopedic Surgery - back, left long finger PIP disarticulation, now s/p right hand I and D - Immunizations Hx Diphtheria, Pertussis, Tetanus Vaccination: Yes Hx Pneumococcal Vaccination: 11/09/11 <CHESTER PATTERSON - Last Filed: 10/28/17 09:08> Review of Systems - Review of Systems Constitutional: See HPI, Other - elevated sugars EENT: No symptoms reported Cardiovascular: No symptoms reported Respiratory: No symptoms reported Gastrointestinal: See HPI, Abdominal pain, Vomiting Genitourinary: No symptoms reported Male Genitourinary: No symptoms reported Musculoskeletal: No symptoms reported Skin: No symptoms reported Hematologic/Lymphatic: No symptoms reported Neurological/Psychological: No symptoms reported -: Yes All other systems reviewed and negative <CHESTER PATTERSON - Last Filed: 10/28/17 09:08> Physical Exam <CHESTER PATTERSON - Last Filed: 10/28/17 09:08> <BRI EASTON - Last Filed: 10/28/17 10:31> - Vital signs Vitals: Resp Pulse Ox 11 L 99 10/28/17 06:44 10/28/17 06:44 - Notes Notes: Physical Exam: General: Alert, appears uncomfortable. No ketone odor on breath. HEENT: Normocephalic. Atraumatic. PERRL. Extraocular movements intact. Oropharynx clear. Neck: Supple. Non-tender. Respiratory: No respiratory distress. Clear and equal breath sounds bilaterally. Cardiovascular: Regular rate and rhythm. Abdominal: Generalized diffuse abdominal tenderness with palpation. No distension. Normal Bowel Sounds. Back: Non-tender. No deformity or step off. Extremities: Moves all four extremities. Upper extremities: Normal inspection. Normal ROM. Lower extremities: Normal inspection. No edema. Normal ROM. Neurological: Normal cognition. AAOx4. Normal speech. Psychological: Normal affect. Normal Mood. Skin: Warm. Dry. Normal color. (CHESTER PATTERSON) Course - Laboratory Result Diagrams: 10/28/17 07:08 10/28/17 08:19 <CHESTER PATTERSON - Last Filed: 10/28/17 09:08> - Laboratory Result Diagrams: 10/28/17 07:08 10/28/17 08:19 - EKG Interpretation by Ca EKG shows normal: Sinus rhythm, [place], QRS Complexes, ST-T Waves. abnormal: Intervals - Borderline prolonged QT interval Rate: Normal - 89 Rhythm: NSR When compared to previous EKG there are: No significant change - Consults Dr. Mckeon Time consulted: 10:25 Consulted provider: will come to ER <BRI EASTON - Last Filed: 10/28/17 10:31> - Vital Signs Vital signs: Temp Pulse Resp BP Pulse Ox 97.6 F 15 98/62 L 100 10/28/17 07:24 10/28/17 09:16 10/28/17 09:16 10/28/17 09:16 - Laboratory Laboratory results interpreted by me: 10/28/17 10/28/17 10/28/17 07:08 08:15 08:19 WBC 10.8 H RBC 3.64 L Hgb 9.0 L Hct 29.8 L MCH 24.7 L MCHC 30.2 L RDW 20.6 H Seg Neutrophils % 81.3 H Lymphocytes % 9.3 L Absolute Neutrophils 8.8 H VBG pH 7.13 L* VBG pCO2 29.8 L VBG HCO3 9.8 L Sodium Carbon Dioxide Anion Gap BUN Glucose Alkaline Phosphatase Albumin Lipase Urine Glucose (UA) >=500 H Urine Ketones 20 H 10/28/17 08:19 WBC RBC Hgb Hct MCH MCHC RDW Seg Neutrophils % Lymphocytes % Absolute Neutrophils VBG pH VBG pCO2 VBG HCO3 Sodium 127.5 L Carbon Dioxide 9 L* Anion Gap 20 H BUN 30 H Glucose 774 H* Alkaline Phosphatase 299 H Albumin 3.0 L Lipase 368.0 H Urine Glucose (UA) Urine Ketones Critical Care Note - Critical Care Note Total time excluding time spent on procedures (mins): 35 <BRI EASTON - Last Filed: 10/28/17 10:31> Discharge <CHESTER PATTERSON - Last Filed: 10/28/17 09:08> - Discharge Admitting Provider: Hospitalist Unit Admitted: ICU <BRI EASTON - Last Filed: 10/28/17 10:31> - Discharge Clinical Impression: Diabetic ketoacidosis Qualifiers: Diabetes mellitus type: type 1 Diabetes mellitus complication detail: without coma Qualified Code(s): E10.10 - Type 1 diabetes mellitus with ketoacidosis without coma Condition: Stable Disposition: ADMITTED INPATIENT Scribe Attestation: 10/28/17 07:10 I personally performed the services described in the documentation, reviewed and edited the documentation which was dictated to the scribe in my presence, and it accurately records my words and actions. (BRI EASTON)
[2017-10-28 07:26] LABS: ABSOLUTE BASOPHILS # (AUTO) 0.1 10^3/uL (0.0-0.2); ABSOLUTE EOSINOPHILS # (AUTO) 0.1 10^3/uL (0.0-0.6); ABSOLUTE MONOCYTES (AUTO) 0.9 10^3/uL (0.1-1.4); ABSOLUTE NEUT (AUTO) 8.8 10^3/uL (1.7-8.2); EOSINOPHILS % (AUTO) 0.5 % (0-6); HEMATOCRIT 29.8 % (37.9-51.0); LYMPHOCYTES % (AUTO) 9.3 % (13-45); MEAN CORPUSCULAR HEMOGLOBIN 24.7 pg (27.0-33.4); MEAN CORPUSCULAR HGB CONC 30.2 g/dL (32.0-36.0); MONOCYTES % (AUTO) 7.9 % (3-13); PLATELET COUNT 382 10^3/uL (150-450); RED BLOOD COUNT 3.64 10^6/uL (4.35-5.55); RED CELL DISTRIBUTION WIDTH 20.6 % (11.5-14.0); SEGMENTED NEUTROPHILS % (AUTO) 81.3 % (42-78); TOTAL CELLS COUNTED % (AUTO) 100 %; WHITE BLOOD COUNT 10.8 10^3/uL (4.0-10.5)
[2017-10-28 07:47] LABS: MEAN CORPUSCULAR VOLUME 82 fl (80-97)
[2017-10-28 08:33] LABS: VENOUS BLOOD HCO3 9.8 mmol/L (20-32); VENOUS BLOOD PCO2 29.8 mmHg (35-63)
[2017-10-28 08:35] LABS: VENOUS BLOOD PH 7.13 (7.30-7.42)
[2017-10-28 08:52] LABS: ALANINE AMINOTRANSFERASE 40 U/L (21-72); ALKALINE PHOSPHATASE 299 U/L (38-126); ASPARTATE AMINO TRANSFERASE 19 U/L (17-59); BILIRUBIN,DIRECT 0.3 mg/dL (0.0-0.4); BILIRUBIN,TOTAL 0.4 mg/dL (0.2-1.3); BLOOD UREA NITROGEN 30 mg/dL (7-20); CALCIUM 8.5 mg/dL (8.4-10.2); CHLORIDE 99 mmol/L (98-107); CREATINE KINASE 146 U/L (55-170); TOTAL PROTEIN 6.3 g/dL (6.3-8.2)
[2017-10-28 08:56] LABS: SODIUM 127.5 mmol/L (137-145)
[2017-10-28 08:58] LABS: ANION GAP 20 (5-19)
[2017-10-28 09:00] LABS: CARBON DIOXIDE 9 mmol/L (22-30); GLUCOSE 774 mg/dL (75-110)
[2017-10-28] MEDS ORDERED: NORMAL SALINE 1000 ML 1,000 ML IV ONE (09:06)
[2017-10-28 09:11] LABS: APPEARANCE,URINE CLEAR; BILIRUBIN,URINE NEGATIVE (NEGATIVE); COLOR,URINE STRAW; GLUCOSE, URINE >=500 mg/dL (NEGATIVE); KETONES,URINE 20 mg/dL (NEGATIVE); LEUKOCYTE ESTERASE,URINE NEGATIVE (NEGATIVE); NITRITE,URINE NEGATIVE (NEGATIVE); PROTEIN,URINE NEGATIVE (NEGATIVE); URINE SPECIFIC GRAVITY 1.023; UROBILINOGEN,URINE NEGATIVE mg/dL (<2.0)
[2017-10-28] MEDS: INSULIN REG, HUMAN 100 UNIT/ML 3 ML VIAL (PYX) IV ONE ×2 (09:39→15:00)
[2017-10-28] MEDS ORDERED: DEXTROSE 40% GEL 15 GM TUBE PO PRN ×2 (10:42)
[2017-10-28] MEDS ORDERED: DEXTROSE 50%-WATER 25 GM/50 ML DISP.SYRIN IV PRN ×2 (10:42)
[2017-10-28] MEDS ORDERED: NORMAL SALINE 100 ML with INSULIN REGULAR, HUMAN 100 UNIT IV PRN ×2 (10:42)
[2017-10-28] MEDS ORDERED: GLUCAGON,HUMAN RECOMB 1 MG INJ IM PRN (10:42)
[2017-10-28] MEDS: NORMAL SALINE 1000 ML 1,000 ML IV PRN ×2 (11:14→18:10)
[2017-10-28 11:28] LABS: URINE AMPHETAMINES SCREEN NEGATIVE; URINE BARBITURATES SCREEN NEGATIVE; URINE BENZODIAZEPINES SCREEN NEGATIVE; URINE COCAINE SCREEN NEGATIVE; URINE MARIJUANA (THC) SCREEN NEGATIVE; URINE METHADONE SCREEN NEGATIVE; URINE PHENCYCLIDINE SCREEN NEGATIVE
[2017-10-28] MEDS ORDERED: ONDANSETRON HCL INJ/PF 4 MG/2 ML SDV IV PRN (15:42)
[2017-10-28] MEDS: PROMETHAZINE HCL INJ 25 MG/1 ML VIAL IV PRN ×2 (18:15→23:35)
[2017-10-28 20:01] LABS: BLOOD UREA NITROGEN 34 mg/dL (7-20); CALCIUM 8.9 mg/dL (8.4-10.2); CHLORIDE 109 mmol/L (98-107); POTASSIUM 5.2 mmol/L (3.6-5.0); SODIUM 140.6 mmol/L (137-145)
[2017-10-28 20:36] LABS: CARBON DIOXIDE < 5 mmol/L (22-30)
--- NOTE | 2017-10-28 21:11 | PDOC PROGRESS REPORT ---
Subjective Progress Note for:: 10/28/17 Subjective:: telemedicine abnormal labs low pco2 in abg CALLED FROM NURSE FOR ABNORMAL CO2 IS LOW 29 PATIENT ADMITTED TO ICU FOR DKA TO CONT DKA PROTOCOL AND INSULIN DRIP MONITOR [facility]QUENT LABS IF ANY PROBLEMS CALL BACK BY NURSE Reason For Visit: DIABETIC KETOACIDOSIS Physical Exam Vital Signs: Temp Pulse Resp BP Pulse Ox 97.9 F 110 H 18 116/65 100 10/28/17 17:35 10/28/17 17:58 10/28/17 17:35 10/28/17 17:35 10/28/17 17:35 Intake & Output 10/27/17 10/28/17 10/29/17 06:59 06:59 06:59 Intake Total 1023 Balance 1023 Weight 62 kg Results Laboratory Results: 10/28/17 18:44 10/28/17 10/28/17 10/28/17 11:20 13:45 16:29 Sodium Potassium Chloride Carbon Dioxide Anion Gap BUN Creatinine Est GFR ( Amer) Est GFR (Non-Af Amer) Glucose 723 H* 713 H* 695 H* Calcium 10/28/17 10/28/17 18:44 18:44 Sodium 140.6 Potassium 5.2 H Chloride 109 H Carbon Dioxide < 5 L* Anion Gap HANSARD REPORTER BUN 34 H Creatinine 1.47 H Est GFR ( Amer) > 60 Est GFR (Non-Af Amer) 55 L Glucose 627 H* Calcium 8.9
[2017-10-29 00:30] LABS: ANION GAP 15 (5-19); BLOOD UREA NITROGEN 32 mg/dL (7-20); CALCIUM 8.8 mg/dL (8.4-10.2); CARBON DIOXIDE 11 mmol/L (22-30); CHLORIDE 113 mmol/L (98-107); GLUCOSE 259 mg/dL (75-110); SODIUM 139.3 mmol/L (137-145)
[2017-10-29 00:42] LABS: POTASSIUM 4.2 mmol/L (3.6-5.0)
[2017-10-29] MEDS ORDERED: DEXTROSE 5%-1/2 NORMAL SALINE 1,000 ML IV ONE (03:15)
[2017-10-29 04:31] LABS: HEMATOCRIT 27.1 % (37.9-51.0); HEMOGLOBIN 8.7 g/dL (13.5-17.0); MEAN CORPUSCULAR HEMOGLOBIN 24.2 pg (27.0-33.4); MEAN CORPUSCULAR HGB CONC 32.2 g/dL (32.0-36.0); PLATELET COUNT 256 10^3/uL (150-450); RED BLOOD COUNT 3.61 10^6/uL (4.35-5.55); RED CELL DISTRIBUTION WIDTH 20.5 % (11.5-14.0); WHITE BLOOD COUNT 12.9 10^3/uL (4.0-10.5)
[2017-10-29 04:37] LABS: ANION GAP 8 (5-19); BLOOD UREA NITROGEN 32 mg/dL (7-20); CALCIUM 8.8 mg/dL (8.4-10.2); CARBON DIOXIDE 18 mmol/L (22-30); CHLORIDE 114 mmol/L (98-107); GLUCOSE 114 mg/dL (75-110); MEAN CORPUSCULAR VOLUME 75 fl (80-97); POTASSIUM 4.3 mmol/L (3.6-5.0); SODIUM 140.4 mmol/L (137-145)
[2017-10-29] MEDS ORDERED: INSULIN GLARGINE,HUM.REC.ANLOG 1,000 UNIT/10 ML UNIT SUBCUT ONE (05:00)
[2017-10-29 05:03] LABS: ABSOLUTE LYMPHOCYTES# (MANUAL) 1.7 10^3/uL (0.5-4.7); ABSOLUTE MONOCYTES # (MANUAL) 1.7 10^3/uL (0.1-1.4); ABSOLUTE NEUTROPHILS# (MANUAL) 9.5 10^3/uL (1.7-8.2); BASOPHILS % (MANUAL) 0 % (0-2); EOSINOPHILS % (MANUAL) 0 % (0-6); LYMPHOCYTES % (MANUAL) 13 % (13-45); MONOCYTES % (MANUAL) 13 % (3-13); SEGMENTED NEUTROPHILS % (MAN) 74 % (42-78); TOTAL CELLS COUNTED 100
[2017-10-29 05:05] LABS: ANISOCYTOSIS 2+; HYPOCHROMASIA 1+; OVALOCYTES SLIGHT; PLATELET COMMENT ADEQUATE; POIKILOCYTOSIS SLIGHT; POLYCHROMASIA SLIGHT
[2017-10-29 08:51] LABS: ANION GAP 13 (5-19); BLOOD UREA NITROGEN 29 mg/dL (7-20); CALCIUM 8.9 mg/dL (8.4-10.2); CARBON DIOXIDE 17 mmol/L (22-30); CHLORIDE 112 mmol/L (98-107); GLUCOSE 250 mg/dL (75-110); POTASSIUM 4.3 mmol/L (3.6-5.0); SODIUM 141.5 mmol/L (137-145)
[2017-10-29] MEDS: ENOXAPARIN SODIUM INJ 40 MG/0.4 ML DISP.SYRIN SUBCUT SCH (09:56)
[2017-10-29] MEDS: INSULIN LISPRO 100 UNIT/ML 3 ML VIAL SUBCUT PRN ×2 (09:57→12:46)
[2017-10-29] MEDS: PROMETHAZINE HCL INJ 25 MG/1 ML VIAL IV PRN ×3 (11:48→20:15)
[2017-10-29] MEDS: NORMAL SALINE 1000 ML 1,000 ML IV PRN (14:40)
--- NOTE | 2017-10-29 15:39 | PDOC PROGRESS REPORT ---
Subjective Progress Note for:: 10/29/17 Subjective:: This patient was admitted with diabetic ketoacidosis with initial blood sugar of 774 and pH of 7.1. He was placed on insulin drip. His is resolved although patient still complaining of abdominal pain. This patient has a recurrent history of noncompliance and has had multiple admissions to this hospital. He was just discharged on October 09 and this year alone he has been admitted 10 times for the same reason. Reason For Visit: DIABETIC KETOACIDOSIS Physical Exam Vital Signs: Temp Pulse Resp BP Pulse Ox 99.7 F 94 17 104/63 100 10/29/17 11:19 10/29/17 14:00 10/29/17 11:19 10/29/17 11:19 10/29/17 11:19 Intake & Output 10/28/17 10/29/17 10/30/17 06:59 06:59 06:59 Intake Total 2082 437 Output Total 0 Balance 2082 437 Weight 64.1 kg General appearance: PRESENT: no acute distress Head exam: PRESENT: atraumatic, normocephalic Eye exam: PRESENT: conjunctiva pink, EOMI, PERRLA. ABSENT: scleral icterus Ear exam: PRESENT: normal external ear exam Mouth exam: PRESENT: moist, tongue midline Neck exam: ABSENT: carotid bruit, JVD, lymphadenopathy, thyromegaly Respiratory exam: PRESENT: clear to auscultation alfonso. ABSENT: rales, rhonchi, wheezes Cardiovascular exam: PRESENT: RRR. ABSENT: diastolic murmur, rubs, systolic murmur Pulses: PRESENT: normal dorsalis pedis pul Vascular exam: PRESENT: normal capillary refill GI/Abdominal exam: PRESENT: normal bowel sounds, soft. ABSENT: distended, guarding, mass, organolmegaly, rebound, tenderness Rectal exam: PRESENT: deferred Extremities exam: PRESENT: full ROM. ABSENT: calf tenderness, clubbing, pedal edema Neurological exam: PRESENT: alert, awake, oriented to person, oriented to place , oriented to time, oriented to situation, CN II-XII grossly intact. ABSENT: motor sensory deficit Psychiatric exam: PRESENT: appropriate affect, normal mood Skin exam: PRESENT: dry, intact, warm. ABSENT: cyanosis, rash Results Laboratory Results: 10/29/17 04:11 10/29/17 08:13 0910/28/17 10/28/17 16:29 18:44 18:44 WBC RBC Hgb Hct MCV MCH MCHC RDW Plt Count Seg Neutrophils % Lymphocytes % Monocytes % Eosinophils % Basophils % Absolute Neutrophils Absolute Lymphocytes Absolute Monocytes Absolute Eosinophils Absolute Basophils Sodium 140.6 Potassium 5.2 H Chloride 109 H Carbon Dioxide < 5 L* Anion Gap LEGAL TRANSCRIBER BUN 34 H Creatinine 1.47 H Est GFR ( Amer) > 60 Est GFR (Non-Af Amer) 55 L Glucose 695 H* 627 H* Calcium 8.9 Magnesium 10/29/17 10/29/17 10/29/17 00:02 04:11 04:11 WBC 12.9 H RBC 3.61 L Hgb 8.7 L Hct 27.1 L MCV 75 L D MCH 24.2 L MCHC 32.2 RDW 20.5 H Plt Count 256 Seg Neutrophils % Not Reportable Lymphocytes % Not Reportable Monocytes % Not Reportable Eosinophils % Not Reportable Basophils % Not Reportable Absolute Neutrophils Not Reportable Absolute Lymphocytes Not Reportable Absolute Monocytes Not Reportable Absolute Eosinophils Not Reportable Absolute Basophils Not Reportable Sodium 139.3 Potassium 4.2 D Chloride 113 H Carbon Dioxide 11 L Anion Gap 15 BUN 32 H Creatinine 1.13 Est GFR ( Amer) > 60 Est GFR (Non-Af Amer) > 60 Glucose 259 H Calcium 8.8 Magnesium 2.2 10/29/17 10/29/17 10/29/17 04:11 08:13 10:10 WBC RBC Hgb Hct MCV MCH MCHC RDW Plt Count Seg Neutrophils % Lymphocytes % Monocytes % Eosinophils % Basophils % Absolute Neutrophils Absolute Lymphocytes Absolute Monocytes Absolute Eosinophils Absolute Basophils Sodium 140.4 141.5 Potassium 4.3 4.3 Chloride 114 H 112 H Carbon Dioxide 18 L 17 L Anion Gap 8 13 BUN 32 H 29 H Creatinine 1.03 1.02 Est GFR ( Amer) > 60 > 60 Est GFR (Non-Af Amer) > 60 > 60 Glucose 114 H 250 H Calcium 8.8 8.9 Magnesium 2.0 Assessment & Plan - Diagnosis (1) DKA (diabetic ketoacidoses) Qualifiers: Diabetes mellitus type: type 1 Diabetes mellitus complication detail: without coma Qualified Code(s): E10.10 - Type 1 diabetes mellitus with ketoacidosis without coma Is this a current diagnosis for this admission?: Yes Plan: Start Basal insulin and SSI, hydration (2) Abdominal pain Qualifiers: Abdominal location: epigastric Qualified Code(s): R10.13 - Epigastric pain Is this a current diagnosis for this admission?: Yes Plan: Recurrent and chronic, this is secondary to above - Time Time Spent with patient: 15-24 minutes Medications reviewed and adjusted accordingly: Yes Anticipated discharge: Home Within: within 48 hours
[2017-10-29] MEDS: MORPHINE SULFATE 10 MG/ML INJ IV PRN (15:53)
[2017-10-29] MEDS: INSULIN DETEMIR 100 UNIT/ML 3 ML PEN SUBCUT SCH (17:39)
[2017-10-30] MEDS: PROMETHAZINE HCL INJ 25 MG/1 ML VIAL IV PRN ×4 (06:39→21:53)
[2017-10-30] MEDS: NORMAL SALINE 1000 ML 1,000 ML IV PRN ×2 (06:46→16:33)
[2017-10-30 07:17] LABS: ABSOLUTE BASOPHILS # (AUTO) 0.1 10^3/uL (0.0-0.2); ABSOLUTE EOSINOPHILS # (AUTO) 0.1 10^3/uL (0.0-0.6); ABSOLUTE LYMPHOCYTES (AUTO) 1.2 10^3/uL (0.5-4.7); ABSOLUTE MONOCYTES (AUTO) 1.3 10^3/uL (0.1-1.4); ABSOLUTE NEUT (AUTO) 9.3 10^3/uL (1.7-8.2); EOSINOPHILS % (AUTO) 0.7 % (0-6); HEMATOCRIT 25.8 % (37.9-51.0); HEMOGLOBIN 8.4 g/dL (13.5-17.0); MEAN CORPUSCULAR HEMOGLOBIN 24.5 pg (27.0-33.4); MEAN CORPUSCULAR HGB CONC 32.5 g/dL (32.0-36.0); MEAN CORPUSCULAR VOLUME 75 fl (80-97); MONOCYTES % (AUTO) 11.1 % (3-13); PLATELET COUNT 310 10^3/uL (150-450); RED BLOOD COUNT 3.42 10^6/uL (4.35-5.55); RED CELL DISTRIBUTION WIDTH 20.9 % (11.5-14.0); SEGMENTED NEUTROPHILS % (AUTO) 77.2 % (42-78); TOTAL CELLS COUNTED % (AUTO) 100 %; WHITE BLOOD COUNT 12.1 10^3/uL (4.0-10.5)
[2017-10-30 07:25] LABS: ANION GAP 6 (5-19); BLOOD UREA NITROGEN 19 mg/dL (7-20); CALCIUM 8.8 mg/dL (8.4-10.2); CARBON DIOXIDE 22 mmol/L (22-30); CHLORIDE 110 mmol/L (98-107); GLUCOSE 107 mg/dL (75-110); POTASSIUM 3.7 mmol/L (3.6-5.0); SODIUM 138.2 mmol/L (137-145)
[2017-10-30] MEDS: MORPHINE SULFATE 10 MG/ML INJ IV PRN ×2 (09:26→17:24)
[2017-10-30] MEDS: INSULIN DETEMIR 100 UNIT/ML 3 ML PEN SUBCUT SCH ×2 (09:26→22:05)
[2017-10-30] MEDS: ENOXAPARIN SODIUM INJ 40 MG/0.4 ML DISP.SYRIN SUBCUT SCH (09:28)
--- NOTE | 2017-10-30 13:46 | PDOC PROGRESS REPORT ---
Subjective Subjective:: This patient was admitted with diabetic ketoacidosis with initial blood sugar of 774 and pH of 7.1. He was placed on insulin drip. His is resolved although patient still complaining of abdominal pain. This patient has a recurrent history of noncompliance and has had multiple admissions to this hospital. He was just discharged on October 09 and this year alone he has been admitted 10 times for the same reason. Patient still c/o abdominal pain Reason For Visit: DIABETIC KETOACIDOSIS Physical Exam Vital Signs: Temp Pulse Resp BP Pulse Ox 99.1 F 89 12 117/76 98 10/30/17 11:22 10/30/17 11:22 10/30/17 11:22 10/30/17 11:22 10/30/17 11:22 Intake & Output 10/29/17 10/30/17 10/31/17 06:59 06:59 06:59 Intake Total 2081 2630 Output Total 0 Balance 2081 2629 Weight 64.1 kg 63 kg General appearance: PRESENT: no acute distress, well-developed, well-nourished Head exam: PRESENT: atraumatic, normocephalic Eye exam: PRESENT: conjunctiva pink, EOMI, PERRLA. ABSENT: scleral icterus Ear exam: PRESENT: normal external ear exam Mouth exam: PRESENT: moist, tongue midline Neck exam: ABSENT: carotid bruit, JVD, lymphadenopathy, thyromegaly Respiratory exam: PRESENT: clear to auscultation alfonso. ABSENT: rales, rhonchi, wheezes Cardiovascular exam: PRESENT: RRR. ABSENT: diastolic murmur, rubs, systolic murmur Pulses: PRESENT: normal dorsalis pedis pul Vascular exam: PRESENT: normal capillary refill GI/Abdominal exam: PRESENT: normal bowel sounds, soft, tenderness - vague abdominal tenderness. ABSENT: distended, guarding, mass, organolmegaly, rebound Rectal exam: PRESENT: deferred Extremities exam: PRESENT: full ROM. ABSENT: calf tenderness, clubbing, pedal edema Neurological exam: PRESENT: alert, awake, oriented to person, oriented to place , oriented to time, oriented to situation, CN II-XII grossly intact. ABSENT: motor sensory deficit Psychiatric exam: PRESENT: appropriate affect, normal mood. ABSENT: homicidal ideation, suicidal ideation Skin exam: PRESENT: dry, intact, warm. ABSENT: cyanosis, rash Results Laboratory Results: 10/30/17 06:24 10/30/17 06:24 10/30/17 10/30/17 06:24 06:24 WBC 12.1 H RBC 3.42 L Hgb 8.4 L Hct 25.8 L MCV 75 L MCH 24.5 L MCHC 32.5 RDW 20.9 H Plt Count 310 Seg Neutrophils % 77.2 Lymphocytes % 10.0 L Monocytes % 11.1 Eosinophils % 0.7 Basophils % 1.0 Absolute Neutrophils 9.3 H Absolute Lymphocytes 1.2 Absolute Monocytes 1.3 Absolute Eosinophils 0.1 Absolute Basophils 0.1 Sodium 138.2 Potassium 3.7 Chloride 110 H Carbon Dioxide 22 Anion Gap 6 BUN 19 Creatinine 0.84 Est GFR ( Amer) > 60 Est GFR (Non-Af Amer) > 60 Glucose 107 Calcium 8.8 Assessment & Plan - Diagnosis (1) DKA (diabetic ketoacidoses) Qualifiers: Diabetes mellitus type: type 1 Diabetes mellitus complication detail: without coma Qualified Code(s): E10.10 - Type 1 diabetes mellitus with ketoacidosis without coma Is this a current diagnosis for this admission?: Yes Plan: Resolved. Cont Basal Insulin and SSI (2) Abdominal pain Qualifiers: Abdominal location: epigastric Qualified Code(s): R10.13 - Epigastric pain Is this a current diagnosis for this admission?: Yes Plan: Secondary to DKA. - Time Time Spent with patient: 15-24 minutes Medications reviewed and adjusted accordingly: Yes Anticipated discharge: Home Within: within 48 hours - Inpatient Certification Based on my medical assessment, after consideration of the patient's comorbidities, presenting symptoms, or acuity I expect that the services needed warrant INPATIENT care.: Yes Medical Necessity: Need For IV Fluids, Risk of Complication if Not Cared For in Hospital
[2017-10-30] MEDS: INSULIN LISPRO 100 UNIT/ML 3 ML VIAL SUBCUT PRN ×2 (16:32→21:54)
--- NOTE | 2017-10-30 17:33 | RADIOLOGY REPORT (SQ) ---
EXAM DESCRIPTION: CHEST 2 VIEWS COMPLETED DATE/TIME: 10/30/2017 5:21 pm REASON FOR STUDY: Cough, chest pain COMPARISON: 12/09/2016. EXAM PARAMETERS: NUMBER OF VIEWS: two views TECHNIQUE: Digital Frontal and Lateral radiographic views of the chest acquired. RADIATION DOSE: NA LIMITATIONS: none FINDINGS: LUNGS AND PLEURA: No opacities, masses or pneumothorax. No pleural effusion. MEDIASTINUM AND HILAR STRUCTURES: No masses or contour abnormalities. HEART AND VASCULAR STRUCTURES: Heart normal size. No evidence for failure. BONES: No acute findings. HARDWARE: None in the chest. OTHER: No other significant finding. IMPRESSION: NO ACUTE RADIOGRAPHIC FINDING IN THE CHEST. TECHNICAL DOCUMENTATION: JOB ID: [id number] [employer]- All Rights Reserved Reading location - IP/workstation name: [email or web address]
[2017-10-31] MEDS: MORPHINE SULFATE 10 MG/ML INJ IV PRN ×3 (00:47→13:39)
[2017-10-31] MEDS: NORMAL SALINE 1000 ML 1,000 ML IV PRN (04:35)
[2017-10-31] MEDS: PROMETHAZINE HCL INJ 25 MG/1 ML VIAL IV PRN ×5 (05:00→23:05)
[2017-10-31] MEDS: INSULIN DETEMIR 100 UNIT/ML 3 ML PEN SUBCUT SCH ×2 (09:18→17:15)
[2017-10-31] MEDS: ENOXAPARIN SODIUM INJ 40 MG/0.4 ML DISP.SYRIN SUBCUT SCH (10:43)
[2017-10-31] MEDS: INSULIN LISPRO 100 UNIT/ML 3 ML VIAL SUBCUT PRN (12:36)
--- NOTE | 2017-10-31 14:38 | PDOC PROGRESS REPORT ---
Subjective Progress Note for:: 10/31/17 Subjective:: This patient was admitted with diabetic ketoacidosis with initial blood sugar of 774 and pH of 7.1. He was placed on insulin drip. His is resolved although patient still complaining of abdominal pain. This patient has a recurrent history of noncompliance and has had multiple admissions to this hospital. He was just discharged on October 09 and this year alone he has been admitted 10 times for the same reason. Patient still c/o abdominal pain however feels better today. I have encouraged him to get up and move around Reason For Visit: DIABETIC KETOACIDOSIS Physical Exam Vital Signs: Temp Pulse Resp BP Pulse Ox 98.7 F 96 11 L 119/83 100 10/31/17 11:35 10/31/17 11:35 10/31/17 11:35 10/31/17 11:35 10/31/17 11:35 Intake & Output 10/30/17 10/31/17 11/01/17 06:59 06:59 06:59 Intake Total 2630 2935 474 Balance 2630 2935 474 Weight 63 kg 62.1 kg General appearance: PRESENT: no acute distress, well-developed Head exam: PRESENT: atraumatic, normocephalic Eye exam: PRESENT: conjunctiva pink, EOMI, PERRLA. ABSENT: scleral icterus Ear exam: PRESENT: normal external ear exam Mouth exam: PRESENT: moist, tongue midline Neck exam: ABSENT: carotid bruit, JVD, lymphadenopathy, thyromegaly Respiratory exam: PRESENT: clear to auscultation alfonso. ABSENT: rales, rhonchi, wheezes Cardiovascular exam: PRESENT: RRR. ABSENT: diastolic murmur, rubs, systolic murmur Pulses: PRESENT: normal dorsalis pedis pul Vascular exam: PRESENT: normal capillary refill GI/Abdominal exam: PRESENT: normal bowel sounds, soft. ABSENT: distended, guarding, mass, organolmegaly, rebound, tenderness Rectal exam: PRESENT: deferred Extremities exam: PRESENT: full ROM. ABSENT: calf tenderness, clubbing, pedal edema Neurological exam: PRESENT: alert, awake, oriented to person, oriented to place , oriented to time, oriented to situation, CN II-XII grossly intact. ABSENT: motor sensory deficit Psychiatric exam: PRESENT: appropriate affect, normal mood. ABSENT: homicidal ideation, suicidal ideation Skin exam: PRESENT: dry, intact, warm. ABSENT: cyanosis, rash Results Laboratory Results: 10/30/17 06:24 10/30/17 06:24 Impressions: Chest X-Ray 10/30/17 00:00 IMPRESSION: NO ACUTE RADIOGRAPHIC FINDING IN THE CHEST. Assessment & Plan - Diagnosis (1) DKA (diabetic ketoacidoses) Qualifiers: Diabetes mellitus type: type 1 Diabetes mellitus complication detail: without coma Qualified Code(s): E10.10 - Type 1 diabetes mellitus with ketoacidosis without coma Is this a current diagnosis for this admission?: Yes Plan: Resolved (2) Abdominal pain Qualifiers: Abdominal location: epigastric Qualified Code(s): R10.13 - Epigastric pain Is this a current diagnosis for this admission?: Yes Plan: Chronic, improved - Time Time Spent with patient: 15-24 minutes Medications reviewed and adjusted accordingly: Yes Anticipated discharge: Home Within: within 24 hours - Inpatient Certification Based on my medical assessment, after consideration of the patient's comorbidities, presenting symptoms, or acuity I expect that the services needed warrant INPATIENT care.: Yes Medical Necessity: Need Close Monitoring Due to Risk of Patient Decompensation, Risk of Complication if Not Cared For in Hospital
[2017-10-31] MEDS ORDERED: NORMAL SALINE 1000 ML 1,000 ML IV PRN (14:40)
[2017-10-31] MEDS ORDERED: INSULIN LISPRO 100 UNIT/ML 3 ML VIAL SUBCUT ONE (17:00)
[2017-10-31] MEDS: OXYCODONE-ACETAMINOPHEN 5-325 MG TABLET PO PRN (17:50)
[2017-11-01] MEDS: OXYCODONE-ACETAMINOPHEN 5-325 MG TABLET PO PRN ×4 (01:02→23:40)
[2017-11-01] MEDS: PROMETHAZINE HCL INJ 25 MG/1 ML VIAL IV PRN ×4 (03:07→23:37)
[2017-11-01] MEDS: INSULIN DETEMIR 100 UNIT/ML 3 ML PEN SUBCUT SCH ×2 (06:56→17:11)
[2017-11-01] MEDS ORDERED: INSULIN DETEMIR 100 UNIT/ML 3 ML PEN SUBCUT SCH (09:45)
[2017-11-01] MEDS: ENOXAPARIN SODIUM INJ 40 MG/0.4 ML DISP.SYRIN SUBCUT SCH (10:18)
[2017-11-01] MEDS: INSULIN LISPRO 100 UNIT/ML 3 ML VIAL SUBCUT PRN ×3 (12:38→23:36)
[2017-11-01] MEDS ORDERED: INSULIN LISPRO 100 UNIT/ML 3 ML VIAL SUBCUT ONE (13:00)
[2017-11-01] MEDS ORDERED: INSULIN DETEMIR 100 UNIT/ML 3 ML PEN SUBCUT ONE (13:15)
--- NOTE | 2017-11-01 14:12 | PDOC PROGRESS REPORT ---
Subjective Progress Note for:: 11/01/17 Subjective:: This patient was admitted with diabetic ketoacidosis with initial blood sugar of 774 and pH of 7.1. He was placed on insulin drip. His is resolved although patient still complaining of abdominal pain. This patient has a recurrent history of noncompliance and has had multiple admissions to this hospital. He was just discharged on October 09 and this year alone he has been admitted 10 times for the same reason. Patient continues to feels better. His blood sugar was noted to be elevated however likely because he is feeling better and eating a little bit more. I have increased his insulin. Will need to try and get ahead of it because his blood sugar now is creeping back up and he is very very labile and goes back into DKA very fast so he may need to be kept 1 more day to ensure that his blood sugars are pretty stable prior to discharge. Reason For Visit: DIABETIC KETOACIDOSIS Physical Exam Vital Signs: Temp Pulse Resp BP Pulse Ox 98.7 F 102 H 12 117/74 100 11/01/17 12:05 11/01/17 12:05 11/01/17 12:05 11/01/17 12:05 11/01/17 12:05 Intake & Output 10/31/17 11/01/17 11/02/17 06:59 06:59 06:59 Intake Total 2935 1401 947 Balance 2935 1401 947 Weight 62.1 kg 66.4 kg General appearance: PRESENT: no acute distress, well-developed, well-nourished Head exam: PRESENT: atraumatic, normocephalic Eye exam: PRESENT: conjunctiva pink, EOMI, PERRLA. ABSENT: scleral icterus Ear exam: PRESENT: normal external ear exam Mouth exam: PRESENT: moist, tongue midline Neck exam: ABSENT: carotid bruit, JVD, lymphadenopathy, thyromegaly Respiratory exam: PRESENT: clear to auscultation alfonso. ABSENT: rales, rhonchi, wheezes Cardiovascular exam: PRESENT: RRR. ABSENT: diastolic murmur, rubs, systolic murmur Pulses: PRESENT: normal dorsalis pedis pul Vascular exam: PRESENT: normal capillary refill GI/Abdominal exam: PRESENT: normal bowel sounds, soft. ABSENT: distended, guarding, mass, organolmegaly, rebound, tenderness Rectal exam: PRESENT: deferred Extremities exam: PRESENT: full ROM. ABSENT: calf tenderness, clubbing, pedal edema Neurological exam: PRESENT: alert, awake, oriented to person, oriented to place , oriented to time, oriented to situation, CN II-XII grossly intact. ABSENT: motor sensory deficit Psychiatric exam: PRESENT: appropriate affect, normal mood. ABSENT: homicidal ideation, suicidal ideation Skin exam: PRESENT: dry, intact, warm. ABSENT: cyanosis, rash Results Laboratory Results: 10/30/17 06:24 10/30/17 06:24 Impressions: Chest X-Ray 10/30/17 00:00 IMPRESSION: NO ACUTE RADIOGRAPHIC FINDING IN THE CHEST. Assessment & Plan - Diagnosis (1) DKA (diabetic ketoacidoses) Qualifiers: Diabetes mellitus type: type 1 Diabetes mellitus complication detail: without coma Qualified Code(s): E10.10 - Type 1 diabetes mellitus with ketoacidosis without coma Is this a current diagnosis for this admission?: Yes (2) Abdominal pain Qualifiers: Abdominal location: epigastric Qualified Code(s): R10.13 - Epigastric pain Is this a current diagnosis for this admission?: Yes - Time Time Spent with patient: 15-24 minutes Anticipated discharge: Home Within: within 48 hours - Inpatient Certification Based on my medical assessment, after consideration of the patient's comorbidities, presenting symptoms, or acuity I expect that the services needed warrant INPATIENT care.: Yes Medical Necessity: Need For IV Fluids, Risk of Complication if Not Cared For in Hospital
[2017-11-02] MEDS: INSULIN DETEMIR 100 UNIT/ML 3 ML PEN SUBCUT SCH ×2 (05:24→18:50)
[2017-11-02] MEDS: OXYCODONE-ACETAMINOPHEN 5-325 MG TABLET PO PRN ×3 (05:55→19:14)
[2017-11-02] MEDS: PROMETHAZINE HCL INJ 25 MG/1 ML VIAL IV PRN ×2 (05:56→10:28)
--- NOTE | 2017-11-02 07:18 | PDOC H&P ---
History of Present Illness Admission Date/PCP: 10/28/17 10:39 History of Present Illness: CHESTER MCKEON is a 37 year old male presented to the ED with complaints of abdominal pain, nausea and vomiting. he was found to be in DKA. Past Medical History Cardiac Medical History: Reports: Hyperlipidema, Hypertension - Taken off medication for same. Denies: Atrial Fibrillation, Congestive Heart Failure, Coronary Artery Disease, Myocardial Infarction, Pulmonary Embolism Pulmonary Medical History: Denies: Asthma, Chronic Obstructive Pulmonary Disease (COPD), Sleep Apnea Neurological Medical History: Denies: Seizures Endocrine Medical History: Reports: Diabetes Mellitus Type 1, Diabetes Mellitus Type 2 Denies: Hyperthyroidism, Hypothyroidism Renal/ Medical History: Denies: End Stage Renal Disease GI Medical History: Reports: Gastroesophageal Reflux Disease Denies: Cirrhosis, Hepatitis Musculoskeltal Medical History: Denies: Arthritis Psychiatric Medical History: Reports: Depression Hematology: Reports: Anemia - Chronic illnesses Infectious Medical History: Reports: Methicillin-Resistant Staph Aureus Past Surgical History Past Surgical History: Reports: Orthopedic Surgery - back, left long finger PIP disarticulation, now s/p right hand I and D Denies: Appendectomy, Cholecystectomy, Tonsillectomy Social History Lives with: Family Smoking Status: Former Smoker Frequency of Alcohol Use: None Hx Recreational Drug Use: Yes Drugs: Cocaine, Marijuana Hx Prescription Drug Abuse: No - Advance Directive Resuscitation Status: Full Code Family History Family History: Reviewed & Not Pertinent, DM, Hyperlipidemia, Hypertension Parental Family History Reviewed: Yes Children Family History Reviewed: Yes Sibling(s) Family History Reviewed.: Yes Medication/Allergy Home Medications: Insulin Glargine,Hum.rec.anlog [Lantus Solostar] 35 units SQ DAILY 10/28/17 Insulin Lispro [Humalog Insulin (Lispro) 100 unit/mL] 0 units SQ .PERSLIDINGSCALE 10/28/17 Allergies/Adverse Reactions: ondansetron [From Zofran (as hydrochloride)] Allergy (Verified 10/28/17 07:25) Review of Systems All systems: reviewed and no additional remarkable complaints except as stated - abdominal pain, nausea, vomiting, and high glucoses. Physical Exam Vital Signs: Temp Pulse Resp BP Pulse Ox 99.1 F 100 18 116/68 100 11/02/17 04:00 11/02/17 04:00 11/02/17 04:00 11/02/17 04:00 11/02/17 04:00 Intake & Output 11/01/17 11/02/17 11/03/17 06:59 06:59 06:59 Intake Total 1401 1643 Balance 1401 1643 Weight 66.4 kg 65.1 kg General appearance: PRESENT: no acute distress, cooperative, thin Head exam: PRESENT: atraumatic, normocephalic Eye exam: PRESENT: EOMI, PERRLA. ABSENT: conjunctival injection, scleral icterus Ear exam: PRESENT: normal external ear exam. ABSENT: bleeding, drainage Mouth exam: PRESENT: dry mucosa, neck supple, tongue midline Throat exam: ABSENT: post pharyngeal erythema, tonsillar erythema, tonsillar exudate Neck exam: ABSENT: JVD, lymphadenopathy, meningismus, thyromegaly Respiratory exam: PRESENT: other - No increased work of breathing.. ABSENT: rales, rhonchi, wheezes Cardiovascular exam: PRESENT: RRR. ABSENT: diastolic murmur, gallop, rubs, systolic murmur Pulses: PRESENT: normal carotid pulses, normal dorsalis pedis pul GI/Abdominal exam: PRESENT: guarding, hypoactive bowel sounds, soft, tenderness. ABSENT: distended, mass, normal bowel sounds, organolmegaly Extremities exam: ABSENT: clubbing, pedal edema, tenderness Musculoskeletal exam: PRESENT: normal inspection. ABSENT: deformity, dislocation, tenderness Neurological exam: PRESENT: alert, awake, oriented to person, oriented to place , oriented to time, oriented to situation Psychiatric exam: PRESENT: appropriate affect, normal mood Skin exam: PRESENT: dry, intact, warm Results Laboratory Results: 10/30/17 06:24 10/30/17 06:24 Impressions: Chest X-Ray 10/30/17 00:00 IMPRESSION: NO ACUTE RADIOGRAPHIC FINDING IN THE CHEST. Assessment & Plan - Diagnosis (1) DKA (diabetic ketoacidoses) Qualifiers: Diabetes mellitus type: type 1 Diabetes mellitus complication detail: without coma Qualified Code(s): E10.10 - Type 1 diabetes mellitus with ketoacidosis without coma Is this a current diagnosis for this admission?: Yes (2) Abdominal pain Qualifiers: Abdominal location: epigastric Qualified Code(s): R10.13 - Epigastric pain Is this a current diagnosis for this admission?: Yes - Time Time Spent: 50 to 70 Minutes - Inpatient Certification Based on my medical assessment, after consideration of the patient's comorbidities, presenting symptoms, or acuity I expect that the services needed warrant INPATIENT care.: Yes I certify that my determination is in accordance with my understanding of Medicare's requirements for reasonable and necessary INPATIENT services [42 CFR 412.3e].: Yes Medical Necessity: Need Close Monitoring Due to Risk of Patient Decompensation, Need For IV Fluids, Risk of Complication if Not Cared For in Hospital - Plan Summary Plan Summary: The patient will be adnitted to an ICU bed. He will be placed on a DKA protocol with aggressive IV fluid resuscitation and insulin drip. His electrolytes will be carefully monitored. He will be kept NPO for now.
[2017-11-02] MEDS: ENOXAPARIN SODIUM INJ 40 MG/0.4 ML DISP.SYRIN SUBCUT SCH (10:01)
[2017-11-02] MEDS ORDERED: PROMETHAZINE HCL INJ 25 MG/1 ML VIAL IM PRN (12:44)
[2017-11-02] MEDS ORDERED: INSULIN LISPRO 100 UNIT/ML 3 ML VIAL SUBCUT ONE (12:45)
--- NOTE | 2017-11-02 17:13 | PDOC PROGRESS REPORT ---
Subjective Progress Note for:: 11/02/17 Subjective:: This patient was admitted with diabetic ketoacidosis with initial blood sugar of 774 and pH of 7.1. He was placed on insulin drip. His is resolved although patient still complaining of abdominal pain. This patient has a recurrent history of noncompliance and has had multiple admissions to this hospital. He was just discharged on October 09 and this year alone he has been admitted 10 times for the same reason. Patient continues to feels better. His blood sugar was noted to be elevated however likely because he is feeling better and eating a little bit more. I have increased his insulin. Will need to try and get ahead of it because his blood sugar now is creeping back up and he is very very labile and goes back into DKA very fast so I will keep him one more day. Reason For Visit: DIABETIC KETOACIDOSIS Physical Exam Vital Signs: Temp Pulse Resp BP Pulse Ox 98.5 F 118 H 12 114/75 100 11/02/17 11:45 11/02/17 14:00 11/02/17 11:45 11/02/17 11:45 11/02/17 11:45 Intake & Output 11/01/17 11/02/17 11/03/17 06:59 06:59 06:59 Intake Total 1401 1643 932 Balance 1401 1643 932 Weight 66.4 kg 65.1 kg General appearance: PRESENT: no acute distress, well-developed, well-nourished Head exam: PRESENT: atraumatic, normocephalic Eye exam: PRESENT: conjunctiva pink, EOMI, PERRLA. ABSENT: scleral icterus Ear exam: PRESENT: normal external ear exam Mouth exam: PRESENT: moist, tongue midline Neck exam: ABSENT: carotid bruit, JVD, lymphadenopathy, thyromegaly Respiratory exam: PRESENT: clear to auscultation alfonso. ABSENT: rales, rhonchi, wheezes Cardiovascular exam: PRESENT: RRR. ABSENT: diastolic murmur, rubs, systolic murmur Pulses: PRESENT: normal dorsalis pedis pul Vascular exam: PRESENT: normal capillary refill GI/Abdominal exam: PRESENT: normal bowel sounds, soft. ABSENT: distended, guarding, mass, organolmegaly, rebound, tenderness Rectal exam: PRESENT: deferred Extremities exam: PRESENT: full ROM. ABSENT: calf tenderness, clubbing, pedal edema Neurological exam: PRESENT: alert, awake, oriented to person, oriented to place , oriented to time, oriented to situation, CN II-XII grossly intact. ABSENT: motor sensory deficit Psychiatric exam: PRESENT: appropriate affect, normal mood. ABSENT: homicidal ideation, suicidal ideation Skin exam: PRESENT: dry, intact, warm. ABSENT: cyanosis, rash Results Laboratory Results: 10/30/17 06:24 10/30/17 06:24 Impressions: Chest X-Ray 10/30/17 00:00 IMPRESSION: NO ACUTE RADIOGRAPHIC FINDING IN THE CHEST. Assessment & Plan - Diagnosis (1) DKA (diabetic ketoacidoses) Qualifiers: Diabetes mellitus type: type 1 Diabetes mellitus complication detail: without coma Qualified Code(s): E10.10 - Type 1 diabetes mellitus with ketoacidosis without coma Is this a current diagnosis for this admission?: Yes Plan: Resolved (2) Abdominal pain Qualifiers: Abdominal location: epigastric Qualified Code(s): R10.13 - Epigastric pain Is this a current diagnosis for this admission?: Yes - Time Time Spent with patient: 15-24 minutes Medications reviewed and adjusted accordingly: Yes Anticipated discharge: Home Within: within 24 hours - Inpatient Certification Based on my medical assessment, after consideration of the patient's comorbidities, presenting symptoms, or acuity I expect that the services needed warrant INPATIENT care.: Yes Medical Necessity: Need Close Monitoring Due to Risk of Patient Decompensation, Risk of Complication if Not Cared For in Hospital - Plan Summary Plan Summary: Adjust insulin and plan to dc in am if stable
[2017-11-02] MEDS: INSULIN LISPRO 100 UNIT/ML 3 ML VIAL SUBCUT PRN ×2 (17:21→21:48)
[2017-11-02] MEDS: PROMETHAZINE HCL 25 MG TABLET PO PRN (17:26)
[2017-11-03] MEDS: OXYCODONE-ACETAMINOPHEN 5-325 MG TABLET PO PRN ×3 (01:24→15:07)
[2017-11-03] MEDS: PROMETHAZINE HCL 25 MG TABLET PO PRN ×3 (01:24→15:07)
[2017-11-03 05:04] LABS: ANION GAP 12 (5-19); BLOOD UREA NITROGEN 29 mg/dL (7-20); CARBON DIOXIDE 15 mmol/L (22-30); CHLORIDE 109 mmol/L (98-107); GLUCOSE 325 mg/dL (75-110); POTASSIUM 4.9 mmol/L (3.6-5.0); SODIUM 135.6 mmol/L (137-145)
[2017-11-03] MEDS: INSULIN DETEMIR 100 UNIT/ML 3 ML PEN SUBCUT SCH (06:10)
[2017-11-03 06:19] LABS: HEMATOCRIT 27.8 % (37.9-51.0); HEMOGLOBIN 9.1 g/dL (13.5-17.0); MEAN CORPUSCULAR HEMOGLOBIN 25.8 pg (27.0-33.4); MEAN CORPUSCULAR HGB CONC 32.7 g/dL (32.0-36.0); PLATELET COUNT 295 10^3/uL (150-450); RED BLOOD COUNT 3.52 10^6/uL (4.35-5.55); RED CELL DISTRIBUTION WIDTH 20.9 % (11.5-14.0); WHITE BLOOD COUNT 9.2 10^3/uL (4.0-10.5)
[2017-11-03 06:56] LABS: MEAN CORPUSCULAR VOLUME 79 fl (80-97)
[2017-11-03 06:59] LABS: ABSOLUTE LYMPHOCYTES# (MANUAL) 2.1 10^3/uL (0.5-4.7); ABSOLUTE NEUTROPHILS# (MANUAL) 5.6 10^3/uL (1.7-8.2); BASOPHILS % (MANUAL) 2 % (0-2); EOSINOPHILS % (MANUAL) 3 % (0-6); LYMPHOCYTES % (MANUAL) 23 % (13-45); MONOCYTES % (MANUAL) 11 % (3-13); TOTAL CELLS COUNTED 100
[2017-11-03 07:02] LABS: ACANTHOCYTES SLIGHT; ANISOCYTOSIS 2+; BURR CELLS SLIGHT; OVALOCYTES SLIGHT; PLATELET COMMENT ADEQUATE; POIKILOCYTOSIS 1+; POLYCHROMASIA SLIGHT
[2017-11-03] MEDS: INSULIN LISPRO 100 UNIT/ML 3 ML VIAL SUBCUT PRN (08:03)
[2017-11-03] MEDS: ENOXAPARIN SODIUM INJ 40 MG/0.4 ML DISP.SYRIN SUBCUT SCH (10:06)
[2017-11-03] MEDS ORDERED: INSULIN LISPRO 100 UNIT/ML 3 ML VIAL SUBCUT ONE (13:00)
[2017-11-03] MEDS ORDERED: INSULIN DETEMIR 100 UNIT/ML 3 ML PEN SUBCUT ONE (13:30)
[2017-11-03] MEDS ORDERED: INSULIN LISPRO 100 UNIT/ML 3 ML VIAL SUBCUT SCH (16:00)
--- NOTE | 2017-11-03 17:21 | PDOC DISCHARGE SUMMARY ---
General - Admit/Disc Date/PCP Admission Date/Primary Care Provider: 10/28/17 10:39 Discharge Date: 11/03/17 - Discharge Diagnosis (1) DKA (diabetic ketoacidoses) Is this a current diagnosis for this admission?: Yes (2) Abdominal pain Is this a current diagnosis for this admission?: Yes - Additional Information Resuscitation Status: Full Code Discharge Diet: Cardiac Discharge Activity: Activity As Tolerated Home Medications: RX: Insulin Lispro [Humalog Insulin (Lispro) 100 unit/mL] 0 units SQ .PERSLIDINGSCALE 10/28/17 RX: Insulin Detemir [Levemir Insulin 100 units/mL] 35 unit SUBCUT Q12A insuln.pen 11/03/17 History of Present Illness History of Present Illness: CHESTER MCKEON is a 37 year old male Patient was admitted with nausea and vomiting and found to be in DKA. He has a recurrent history of admissions especially for DKA. He has been admitted to this facility 10 times this year. Hospital Course Hospital Course: He was started on insulin drip and aggressive IV fluid hydration. His acidosis resolved with resolution of his anion gap. Patient's blood sugar was initially low with an episode of lab over the last treated with 48 hours and insulin was being adjusted to maintain an optimal blood sugar. At this point his last blood sugar was in the 150s and it is felt that he can be discharged home as he is tolerating his diet and he has no other symptoms. His abdominal pain is resolved. With no further interventions been planned patient is been discharged home for outpatient follow-up. He has been advised to adjust his insulin to maintain a blood sugar of about 180 Patient noted to be still slightly acidotic however he has had no nausea vomiting and his abdominal pain is improved while in hospital he has been tolerating his diet pretty well. He is advised to be compliant with his diet and to drink plenty of fluids once discharged Physical Exam Vital Signs: Temp Pulse Resp BP Pulse Ox 98.5 F 114 H 16 111/70 100 11/03/17 15:27 11/03/17 15:27 11/03/17 15:27 11/03/17 15:27 11/03/17 15:27 Intake & Output 11/02/17 11/03/17 11/04/17 06:59 06:59 06:59 Intake Total 1643 1806 474 Balance 1643 1806 474 Weight 65.1 kg General appearance: PRESENT: no acute distress, well-developed, other - lanky young gentleman Head exam: PRESENT: atraumatic, normocephalic Eye exam: PRESENT: conjunctiva pink, EOMI, PERRLA. ABSENT: scleral icterus Ear exam: PRESENT: normal external ear exam Mouth exam: PRESENT: moist, tongue midline Neck exam: ABSENT: carotid bruit, JVD, lymphadenopathy, thyromegaly Respiratory exam: PRESENT: clear to auscultation alfonso. ABSENT: rales, rhonchi, wheezes Cardiovascular exam: PRESENT: RRR. ABSENT: diastolic murmur, rubs, systolic murmur Pulses: PRESENT: normal dorsalis pedis pul Vascular exam: PRESENT: normal capillary refill GI/Abdominal exam: PRESENT: normal bowel sounds, soft. ABSENT: distended, guarding, mass, organolmegaly, rebound, tenderness Rectal exam: PRESENT: deferred Extremities exam: PRESENT: full ROM. ABSENT: calf tenderness, clubbing, pedal edema Neurological exam: PRESENT: alert, awake, oriented to person, oriented to place , oriented to time, oriented to situation, CN II-XII grossly intact. ABSENT: motor sensory deficit Psychiatric exam: PRESENT: appropriate affect, normal mood. ABSENT: homicidal ideation, suicidal ideation Skin exam: PRESENT: dry, intact, warm. ABSENT: cyanosis, rash Results Laboratory Results: 11/03/17 06:01 11/03/17 04:30 11/03/17 11/03/17 11/03/17 04:30 04:30 06:01 WBC Cancelled 9.2 RBC Cancelled 3.52 L Hgb Cancelled 9.1 L Hct Cancelled 27.8 L MCV Cancelled 79 L D MCH Cancelled 25.8 L MCHC Cancelled 32.7 RDW Cancelled 20.9 H Plt Count Cancelled 295 Seg Neutrophils % Cancelled Not Reportable Lymphocytes % Cancelled Not Reportable Monocytes % Cancelled Not Reportable Eosinophils % Cancelled Not Reportable Basophils % Cancelled Not Reportable Absolute Neutrophils Cancelled Not Reportable Absolute Lymphocytes Cancelled Not Reportable Absolute Monocytes Cancelled Not Reportable Absolute Eosinophils Cancelled Not Reportable Absolute Basophils Cancelled Not Reportable Sodium 135.6 L Potassium 4.9 Chloride 109 H Carbon Dioxide 15 L Anion Gap 12 BUN 29 H Creatinine 0.97 Est GFR ( Amer) > 60 Est GFR (Non-Af Amer) > 60 Glucose 325 H Calcium 9.0 Impressions: Chest X-Ray 10/30/17 00:00 IMPRESSION: NO ACUTE RADIOGRAPHIC FINDING IN THE CHEST. Qualifiers - * PATIENT BEING DISCHARGED WITH ANY OF THE FOLLOWING DIAGNOSIS: No Plan Time Spent: Less than 30 Minutes
[2017-11-03] MEDS ORDERED: INSULIN DETEMIR 100 UNIT/ML 3 ML PEN SUBCUT SCH (18:00)
[2017-11-03 18:13] VITALS: BP 116/68
[2017-11-04 14:57] LABS: METAMYELOCYTES % (MANUAL) 5 % (0)
[2017-11-04 14:59] LABS: SEGMENTED NEUTROPHILS % (MAN) 56 % (42-78)
[2017-11-04 15:00] LABS: PATH REVIEW PATHOLOGIST REVIEWED
== END 2017-11-03 18:36 | disposition home or self-care (01) | DRG 639 ==
LOC: ER 06:38 → EH 10:39 → 3N 17:42
PROVIDERS: ADMIT Emergency Medicine; ATTEND Emergency Medicine
DX: E10.10 Type 1 diabetes mellitus with ketoacidosis without coma (principal); E78.00 Pure hypercholesterolemia, unspecified; I10 Essential (primary) hypertension; K21.9 Gastro-esophageal reflux disease without esophagitis; F32.9 Major depressive disorder, single episode, unspecified; D63.8 Anemia in other chronic diseases classified elsewhere; Z86.14 Personal history of Methicillin resistant Staphylococcus aureus infection; Z87.891 Personal history of nicotine dependence; Z83.3 Family history of diabetes mellitus; Z82.49 Family history of ischemic heart disease and other diseases of the circulatory system; Z91.09 Other allergy status, other than to drugs and biological substances; Z79.4 Long term (current) use of insulin
CPT/HCPCS: 36415; 71046; 80048; 80053; 80307; 81001; 82550; 82803; 82947; 82962; 83605; 83690; 83735; 85025; 99291; J1650; J1815; J2270; J2405; J2550

== ENCOUNTER 2017-11-19 07:19 | Emergency (ER) | payer SELFPAY ==
--- NOTE | 2017-11-19 07:56 | ER Document Report ---
ED General - General Stated Complaint: BLOOD SUGAR ISSUES Time Seen by Provider: 11/19/17 07:56 Mode of Arrival: Medic Information source: Patient Notes: 37-year-old insulin-dependent diabetic was found in the longterm with altered mental status this morning. They called EMS and his glucose was 35. He took his 30 units of Lantus and 8 units of Humalog like he normally does last night he states he ate dinner. He is complaining of upper abdominal pain that he states he always has but it is worse now. No vomiting or diarrhea. He has been hospitalized twice in October with diabetic ketoacidosis and pancreatitis. He has a history of hyperlipidemia and hypertension. He does not take any antihypertensives at this time. TRAVEL OUTSIDE OF THE [place] IN LAST 30 DAYS: No - Related Data Allergies/Adverse Reactions: ondansetron [From Zofran (as hydrochloride)] Allergy (Verified 10/28/17 07:25) Past Medical History - General Information source: Patient - Social History Smoking Status: Current Every Day Smoker Frequency of alcohol use: Occasional Drug Abuse: Cocaine - 1 month ago Lives with: Homeless - longterm Family History: Reviewed & Not Pertinent, DM, Hyperlipidemia, Hypertension - Past Medical History Cardiac Medical History: Reports: Hx Hypercholesterolemia, Hx Hypertension - Taken off medication for same. Pulmonary Medical History: Endocrine Medical History: Reports: Hx Diabetes Mellitus Type 1 GI Medical History: Reports: Hx Gastroesophageal Reflux Disease, Hx Pancreatitis Psychiatric Medical History: Reports: Hx Depression Infectious Medical History: Reports: Hx MRSA Past Surgical History: Reports: Hx Orthopedic Surgery - back, left long finger PIP disarticulation, now s/p right hand I and D - Immunizations Hx Diphtheria, Pertussis, Tetanus Vaccination: Yes Hx Pneumococcal Vaccination: 11/09/11 Review of Systems - Review of Systems Constitutional: No symptoms reported EENT: No symptoms reported Cardiovascular: No symptoms reported Respiratory: No symptoms reported Gastrointestinal: See HPI Genitourinary: No symptoms reported Male Genitourinary: No symptoms reported Musculoskeletal: No symptoms reported Skin: No symptoms reported Hematologic/Lymphatic: No symptoms reported Neurological/Psychological: See HPI Physical Exam - Vital signs Vitals: Resp 12 11/19/17 08:08 Interpretation: Normal - General General appearance: Appears well, Alert - HEENT Head: Normocephalic, Atraumatic Eyes: Normal Conjunctiva: Normal Pupils: PERRL Mouth/Lips: Normal Mucous membranes: Normal Neck: Supple. No: Lymphadenopathy - Respiratory Respiratory status: No respiratory distress Chest status: Nontender Breath sounds: Normal Chest palpation: Normal - Cardiovascular Rhythm: Regular Heart sounds: Normal auscultation Murmur: No - Abdominal Inspection: Normal Distension: No distension Bowel sounds: Normal Tenderness: Tender - mild epigastric Organomegaly: No organomegaly - Back Back: Normal, Nontender. No: CVA tenderness - Extremities General upper extremity: Normal inspection, Nontender, Normal color, Normal ROM , Normal temperature General lower extremity: Normal inspection, Nontender, Normal color, Normal ROM , Normal temperature, Normal weight bearing. No: Hailey's sign - Neurological Neuro grossly intact: Yes Cognition: Normal Orientation: AAOx4 Unruly Coma Scale Eye Opening: Spontaneous Unruly Coma Scale Verbal: Oriented Unruly Coma Scale Motor: Obeys Commands Shorter Coma Scale Total: 15 Speech: Normal Motor strength normal: LUE, RUE, LLE, RLE Sensory: Normal - Psychological Associated symptoms: Normal affect, Normal mood - Skin Skin Temperature: Warm Skin Moisture: Dry Skin Color: Normal Skin irregularity: negative: Rash Course - Re-evaluation Re-evalutation: 11/19/17 09:[address] diffuse [address] elevation confirmed by Dr. Esquivel, QT interval is 424, QTc is 490. Normal sinus rhythm rate of 80. I am adding a CPK CPK-MB and a troponin I with a repeat troponin I at 12 noon. She recommended that I consult with cardiology. 11/19/17 10:01 Patient states that he ate a piece of toast and some eggs but it was painful going down and he has pain in his upper abdomen when he breathes and he states he thinks his pancreatitis is acting up. His lipase is normal. 11/19/17 13:14 Patient is positive for cocaine the second troponin is negative at 0.012. I will consult with Dr. Esquivel again about disposition. She again reviewed the EKG and there is been no change. The patient is eating chicken and feels well. Glucose is normal. He denies cocaine use except for last month. Dr. Esquivel is OK with disposition to home. His blood pressure is higher than it was when he initially came in but he has a history of hypertension and he did have hypertension during a hospitalization in September. I will have the patient recheck his blood pressure at the [facility]. And I am asking for manual blood pressure at this time. 11/19/17 13:49 Repeat blood pressure is 129/93, will d/c home, he understands the instructions 11/19/17 22:02 - Vital Signs Vital signs: Temp Pulse Resp BP Pulse Ox 97.6 F 18 128/93 H 100 11/19/17 13:45 11/19/17 13:00 11/19/17 13:54 11/19/17 13:54 - Laboratory Result Diagrams: 11/19/17 08:12 11/19/17 08:12 Laboratory results interpreted by me: 11/19/17 11/19/17 11/19/17 08:12 08:12 08:12 RBC 3.43 L Hgb 8.5 L Hct 26.6 L MCV 78 L MCH 24.9 L RDW 19.7 H Plt Count 618 H Chloride 110 H Carbon Dioxide 20 L Glucose 112 H Alkaline Phosphatase 137 H Creatine Kinase 246 H CK-MB (CK-2) Albumin 3.1 L Urine Protein Urine Glucose (UA) Urine Ascorbic Acid 11/19/17 11/19/17 08:12 11:50 RBC Hgb Hct MCV MCH RDW Plt Count Chloride Carbon Dioxide Glucose Alkaline Phosphatase Creatine Kinase CK-MB (CK-2) 5.70 H Albumin Urine Protein 30 H Urine Glucose (UA) >=500 H Urine Ascorbic Acid 40 H Discharge - Discharge Clinical Impression: Episode of hypoglycemia, Episode of altered level of consciousnes, Abrasion to right great toe, Epigastric abdominal pain, Anemia of chronic disease, Cocaine abuse Type 1 diabetes mellitus Qualifiers: Diabetes mellitus complication status: without complication Qualified Code(s): E10.9 - Type 1 diabetes mellitus without complications Hypertension Qualifiers: Hypertension type: unspecified Qualified Code(s): I10 - Essential (primary) hypertension Condition: Good Disposition: HOME, SELF-CARE Instructions: Abdominal Pain ([facility]), [facility], High Blood Pressure ([facility]), Hypoglycemia ([facility]) Additional Instructions: See the [facility] for blood pressure recheck Keep track of your Accu-Cheks to monitor your glucose level Make sure that you eat meals and snacks is appropriate for your insulin dosage Return to the emergency room for any worsening of the symptoms
[2017-11-19] MEDS ORDERED: RINGERS SOLUTION,LACTATED 1,000 ML IV ONE (08:05)
[2017-11-19 08:25] LABS: ABSOLUTE EOSINOPHILS # (AUTO) 0.1 10^3/uL (0.0-0.6); ABSOLUTE LYMPHOCYTES (AUTO) 1.1 10^3/uL (0.5-4.7); ABSOLUTE MONOCYTES (AUTO) 0.3 10^3/uL (0.1-1.4); BASOPHILS % (AUTO) 0.7 % (0-2); HEMATOCRIT 26.6 % (37.9-51.0); HEMOGLOBIN 8.5 g/dL (13.5-17.0); LYMPHOCYTES % (AUTO) 20.3 % (13-45); MEAN CORPUSCULAR HEMOGLOBIN 24.9 pg (27.0-33.4); MEAN CORPUSCULAR HGB CONC 32.1 g/dL (32.0-36.0); MEAN CORPUSCULAR VOLUME 78 fl (80-97); MONOCYTES % (AUTO) 6.1 % (3-13); PLATELET COUNT 618 10^3/uL (150-450); RED BLOOD COUNT 3.43 10^6/uL (4.35-5.55); RED CELL DISTRIBUTION WIDTH 19.7 % (11.5-14.0); SEGMENTED NEUTROPHILS % (AUTO) 71.9 % (42-78); TOTAL CELLS COUNTED % (AUTO) 100 %; WHITE BLOOD COUNT 5.5 10^3/uL (4.0-10.5)
--- NOTE | 2017-11-19 08:34 | RADIOLOGY REPORT (SQ) ---
EXAM DESCRIPTION: CHEST SINGLE VIEW COMPLETED DATE/TIME: 11/19/2017 8:21 am REASON FOR STUDY: chest pain COMPARISON: 10/30/2017 EXAM PARAMETERS: NUMBER OF VIEWS: One view. TECHNIQUE: Single frontal radiographic view of the chest acquired. RADIATION DOSE: NA LIMITATIONS: None. FINDINGS: LUNGS AND PLEURA: No opacities, masses or pneumothorax. No pleural effusion. MEDIASTINUM AND HILAR STRUCTURES: No masses. Contour normal. HEART AND VASCULAR STRUCTURES: Heart normal in size. Normal vasculature. BONES: No acute findings. HARDWARE: None in the chest. OTHER: No other significant finding. IMPRESSION: NO ACUTE RADIOGRAPHIC FINDING IN THE CHEST. TECHNICAL DOCUMENTATION: JOB ID: [id number] [employer]- All Rights Reserved Reading location - IP/workstation name: [email or web address]
[2017-11-19 08:45] LABS: ALANINE AMINOTRANSFERASE 37 U/L (21-72); ALBUMIN 3.1 g/dL (3.5-5.0); ALKALINE PHOSPHATASE 137 U/L (38-126); ANION GAP 10 (5-19); ASPARTATE AMINO TRANSFERASE 29 U/L (17-59); BILIRUBIN,DIRECT 0.2 mg/dL (0.0-0.4); BILIRUBIN,TOTAL 0.2 mg/dL (0.2-1.3); BLOOD UREA NITROGEN 12 mg/dL (7-20); CALCIUM 9.2 mg/dL (8.4-10.2); CARBON DIOXIDE 20 mmol/L (22-30); CHLORIDE 110 mmol/L (98-107); GLUCOSE 112 mg/dL (75-110); LIPASE 214.5 U/L (23-300); POTASSIUM 4.1 mmol/L (3.6-5.0); SODIUM 139.5 mmol/L (137-145); TOTAL PROTEIN 6.7 g/dL (6.3-8.2)
--- NOTE | 2017-11-19 09:18 | RADIOLOGY REPORT (SQ) ---
EXAM DESCRIPTION: CT HEAD WITHOUT COMPLETED DATE/TIME: 11/19/2017 9:02 am REASON FOR STUDY: altered mental status COMPARISON: None. TECHNIQUE: Axial images acquired through the brain without intravenous contrast. Images reviewed wi th bone, brain and subdural windows. Additional sagittal and coronal reconstructions were generated. Images stored on PACS. All CT scanners at this facility use dose modulation, iterative reconstruction, and/or weight based d osing when appropriate to reduce radiation dose to as low as reasonably achievable (ALARA). [facility]: Dose Right [facility]: CareDose [facility]: Dose Right [facility]: Teradose 4D [facility]: Smart Sirigen RADIATION DOSE: CT Rad equipment meets quality standard of care and radiation dose reduction techniq ues were employed. CTDIvol: 53.2 mGy. DLP: 1070 mGy-cm. mGy. LIMITATIONS: None. FINDINGS: VENTRICLES: Normal size and contour. CEREBRUM: No masses. No hemorrhage. No midline shift. No evidence for acute infarction. Normal gra y/white matter differentiation. No areas of low density in the white matter. CEREBELLUM: No masses. No hemorrhage. No alteration of density. No evidence for acute infarction. EXTRAAXIAL SPACES: No fluid collections. No masses. ORBITS AND GLOBE: No intra- or extraconal masses. Normal contour of globe without masses. CALVARIUM: No fracture. PARANASAL SINUSES: No fluid or mucosal thickening. SOFT TISSUES: No mass or hematoma. OTHER: No other significant finding. IMPRESSION: NORMAL BRAIN CT WITHOUT CONTRAST. EVIDENCE OF ACUTE STROKE: NO. COMMENT: Quality ID # [id number]: Final reports with documentation of one or more dose reduction techniques (e.g., Automated exposure control, adjustment of the mA and/or kV according to patient size, use of iterative reconstruction technique) TECHNICAL DOCUMENTATION: JOB ID: [id number] [employer]- All Rights Reserved Reading location - IP/workstation name: [email or web address]
--- NOTE | 2017-11-19 09:23 | EKG REPORT ---
SEVERITY:- ABNORMAL ECG - SINUS RHYTHM NONSPECIFIC T ABNORMALITIES, ANT-LAT LEADS PROLONGED QT INTERVAL ST ELEV, PROBABLE NORMAL EARLY REPOL PATTERN : Confirmed by: Carlota North MD 19-Nov-2017 09:22:04
[2017-11-19 09:32] LABS: TROPONIN I < 0.012 ng/mL
[2017-11-19] MEDS ORDERED: MAG HYDROX/AL HYDROX/SIMETH SUSP 30 ML UDCUP PO ONE (10:02)
[2017-11-19] MEDS ORDERED: LIDOCAINE 2% VISCOUS SOLN 20 ML UDCUP PO ONE (10:02)
[2017-11-19 12:30] LABS: APPEARANCE,URINE CLOUDY; BILIRUBIN,URINE NEGATIVE (NEGATIVE); COLOR,URINE YELLOW; GLUCOSE, URINE >=500 mg/dL (NEGATIVE); KETONES,URINE NEGATIVE (NEGATIVE); LEUKOCYTE ESTERASE,URINE NEGATIVE (NEGATIVE); NITRITE,URINE NEGATIVE (NEGATIVE); PROTEIN,URINE 30 mg/dL (NEGATIVE); URINE SPECIFIC GRAVITY 1.021; UROBILINOGEN,URINE NEGATIVE mg/dL (<2.0)
[2017-11-19 12:48] LABS: URINE AMPHETAMINES SCREEN NEGATIVE; URINE BARBITURATES SCREEN NEGATIVE; URINE BENZODIAZEPINES SCREEN NEGATIVE; URINE COCAINE SCREEN UNCONFIRMED POSITIVE; URINE MARIJUANA (THC) SCREEN NEGATIVE; URINE METHADONE SCREEN NEGATIVE; URINE PHENCYCLIDINE SCREEN NEGATIVE
[2017-11-19 13:55] VITALS: BP 128/93
--- NOTE | 2017-11-19 22:39 | EKG REPORT ---
SEVERITY:- BORDERLINE ECG - SINUS RHYTHM BORDERLINE T ABNORMALITIES, ANT-LAT LEADS ST ELEV, PROBABLE NORMAL EARLY REPOL PATTERN : Confirmed by: Carlota North MD 19-Nov-2017 22:39:09
== END 2017-11-19 14:16 | disposition home or self-care (01) ==
LOC: ER 07:19
DX: E10.649 Type 1 diabetes mellitus with hypoglycemia without coma (principal); D47.3 Essential (hemorrhagic) thrombocythemia; D63.8 Anemia in other chronic diseases classified elsewhere; S90.411A Abrasion, right great toe, initial encounter; X58.XXXA Exposure to other specified factors, initial encounter; R10.13 Epigastric pain; F14.10 Cocaine abuse, uncomplicated; R41.82 Altered mental status, unspecified; F17.200 Nicotine dependence, unspecified, uncomplicated; Z88.8 Allergy status to other drugs, medicaments and biological substances
CPT/HCPCS: 93005; 99285; 36415; 87040; 87086; 82553; 82962; 82550; 83690; 85025; 80053; 81001; 84484; 80307; 83605; 71045; 70450; 93010; J3490

== ENCOUNTER 2018-01-05 06:38 | Inpatient (IN) | payer SELFPAY ==
[2018-01-05 07:27] LABS: VENOUS BLOOD BASE EXCESS -13.6 mmol/L; VENOUS BLOOD HCO3 13.4 mmol/L (20-32); VENOUS BLOOD PCO2 34.8 mmHg (35-63); VENOUS BLOOD PH 7.2 (7.30-7.42)
[2018-01-05] MEDS: NORMAL SALINE 1000 ML 1,000 ML IV PRN ×2 (07:30→08:50)
[2018-01-05] MEDS ORDERED: NORMAL SALINE 100 ML with INSULIN REGULAR, HUMAN 100 UNIT IV PRN ×2 (07:34)
--- NOTE | 2018-01-05 07:38 | ER Document Report ---
ED General - General Chief Complaint: Nausea/Vomiting Time Seen by Provider: 01/05/18 07:12 TRAVEL OUTSIDE OF THE [place] IN LAST 30 DAYS: No - HPI Notes: Patient is a 37-year-old male that presents to the emergency department for chief complaint of DKA. Patient states his blood glucometer last night read "high". He does have a history of DKA and states he feels similarly. He is complaining of chest pain that is substernal and intermittent. The pain occurs at rest and last for a few minutes at a time. He denies any aggravating or relieving factors to his pain. He denies history of cardiac disease in the past. He has not had a heart catheterization or cardiac stress test in the past. Patient also endorses 2 days of diarrhea. He states last night he began vomiting and has had multiple episodes of emesis since last night. He denies any bloody stools or emesis. He denies missing any of his insulin medications in the past. He does state that his dose of Lantus last night was his last dose that he has at home. He denies any fevers, chills, shortness of breath, palpitations, numbness and weakness. He also endorses a crampy diffuse abdominal pain that is intermittent. Past Medical History: Diabetes, iron deficiency anemia Past Surgical History: Back surgery Social History: Occasional tobacco. Denies drugs and alcohol Family History: Reviewed and noncontributory for presenting illness Allergies: Reviewed, see documented allergy list. REVIEW OF SYSTEMS: CONSTITUTIONAL : No fever No chills diaphoresis No recent illness EENT: No vision changes No congestion No sore throat CARDIOVASCULAR: chest pain No palpitations RESPIRATORY: No shortness of breath No cough No difficulty breathing GASTROINTESTINAL: abdominal pain nausea vomiting diarrhea GENITOURINARY: No dysuria No hematuria No difficulty urinating MUSCULOSKELETAL: No back pain No leg pain No arm pain SKIN: No rashes No lesions LYMPHATIC: No swollen, enlarged glands. NEUROLOGICAL: No lightheadedness No headache No weakness No paresthesias PSYCHIATRIC: No anxiety No depression PHYSICAL EXAMINATION: Vital signs reviewed, nursing noted reviewed. GENERAL: Mildly diaphoretic, appears mildly distressed. HEAD: Atraumatic, normocephalic. EYES: Eyes appear normal, extraocular movements intact, sclera anicteric, conjunctiva are normal. ENT: nares patent, oropharynx clear without exudates. Dry mucous membranes. NECK: Normal range of motion, supple without lymphadenopathy LUNGS: Breath sounds clear to auscultation bilaterally and equal. No wheezes rales or rhonchi. HEART: Regular rate and rhythm without murmurs ABDOMEN: Soft, nontender, normoactive bowel sounds. No rebound, guarding, or rigidity. No masses appreciated. EXTREMITIES: Nontender, good range of motion, no pitting or edema. NEUROLOGICAL: No focal neurological deficits. Moves all extremities spontaneously Motor and sensory grossly intact on exam. PSYCH: Normal mood, normal affect. SKIN: Warm, Dry, normal turgor, no rashes or lesions noted on exposed skin - Related Data Allergies/Adverse Reactions: ondansetron [From Zofran (as hydrochloride)] Allergy (Verified 01/05/18 07:34) Past Medical History - Social History Smoking Status: Never Smoker Chew tobacco use (# tins/day): No Frequency of alcohol use: None Family History: Reviewed & Not Pertinent, DM, Hyperlipidemia, Hypertension Patient has suicidal ideation: No Patient has homicidal ideation: No - Past Medical History Cardiac Medical History: Reports: Hx Hypercholesterolemia, Hx Hypertension - Taken off medication for same. Denies: Hx Atrial Fibrillation, Hx Congestive Heart Failure, Hx Coronary Artery Disease, Hx Heart Attack, Hx Pulmonary Embolism Pulmonary Medical History: Denies: Hx Asthma, Hx COPD, Hx Sleep Apnea Neurological Medical History: Denies: Hx Seizures Endocrine Medical History: Reports: Hx Diabetes Mellitus Type 1, Hx Diabetes Mellitus Type 2. Denies: Hx Hyperthyroidism, Hx Hypothyroidism Renal/ Medical History: Denies: Hx End Stage Renal Disease, Hx Peritoneal Dialysis GI Medical History: Reports: Hx Gastroesophageal Reflux Disease, Hx Pancreatitis. Denies: Hx Cirrhosis, Hx Hepatitis Musculoskeletal Medical History: Denies Hx Arthritis Psychiatric Medical History: Reports: Hx Depression Infectious Medical History: Reports: Hx MRSA. Denies: Hx Hepatitis Past Surgical History: Reports: Hx Orthopedic Surgery - back, left long finger PIP disarticulation, now s/p right hand I and D. Denies: Hx Appendectomy, Hx Cholecystectomy, Hx Tonsillectomy - Immunizations Hx Diphtheria, Pertussis, Tetanus Vaccination: Yes Hx Pneumococcal Vaccination: 11/09/11 Physical Exam - Vital signs Vitals: Temp Pulse Resp BP Pulse Ox 98.6 F 98 22 H 98/65 L 98 01/05/18 06:57 01/05/18 06:57 01/05/18 06:57 01/05/18 06:57 01/05/18 06:57 Course - Re-evaluation Re-evalutation: 01/05/18 07:38 Vitals reviewed. Nursing notes reviewed. Patient's [id number] glucose was read as high in the ED. I suspect diabetic ketoacidosis. He was started on IV hydration and insulin infusion. 01/05/18 08:03 Patient reevaluated and has remained hemodynamically stable. He is in DKA with a pH of 7.2. He has a blood glucose greater than 600. Patient's EKG shows borderline hyper acute T waves however his potassium currently is 4.8. Patient will remain on insulin infusion and will be admitted to the ICU for further management of his acute diabetic ketoacidosis. Case discussed with Dr. Villanueva who accepted admission. Patient in agreement with this plan. Chest X-Ray 01/05/18 07:35 IMPRESSION: 1. No acute pulmonary process identified. - Vital Signs Vital signs: Temp Pulse Resp BP Pulse Ox 98.6 F 98 22 H 98/65 L 97 01/05/18 06:57 01/05/18 06:57 01/05/18 06:57 01/05/18 06:57 01/05/18 07:30 - Laboratory Result Diagrams: 01/05/18 06:56 01/05/18 06:56 Laboratory results interpreted by me: 01/05/18 01/05/18 01/05/18 06:56 06:56 06:56 RBC 4.23 L Hgb 10.7 L Hct 34.7 L MCH 25.3 L MCHC 30.8 L RDW 22.2 H VBG pH 7.20 L VBG pCO2 34.8 L VBG HCO3 13.4 L Sodium 133.3 L Carbon Dioxide 15 L BUN 22 H Glucose 679 H* Alkaline Phosphatase 195 H - EKG Interpretation by Me Additional EKG results interpreted by me: 01/05/18 08:02 interpreted by myself: Normal sinus rhythm, rate 94, normal axis, no ectopy, normal NM interval, borderline hyperacute T waves Critical Care Note - Critical Care Note Total time excluding time spent on procedures (mins): 40 Comments: Management of hemodynamics and acid-base disturbance. Potential for hemodynamic compromise Discharge - Discharge Clinical Impression: DKA (diabetic ketoacidoses) Qualifiers: Diabetes mellitus type: type 1 Diabetes mellitus complication detail: without coma Qualified Code(s): E10.10 - Type 1 diabetes mellitus with ketoacidosis without coma Condition: Stable Disposition: ADMITTED INPATIENT Admitting Provider: Hospitalist Unit Admitted: ICU
[2018-01-05 07:39] LABS: ALBUMIN 4.1 g/dL (3.5-5.0); BLOOD UREA NITROGEN 22 mg/dL (7-20); CALCIUM 9.8 mg/dL (8.4-10.2); POTASSIUM 4.8 mmol/L (3.6-5.0)
[2018-01-05 07:40] LABS: ALANINE AMINOTRANSFERASE 38 U/L (21-72); ALKALINE PHOSPHATASE 195 U/L (38-126); ASPARTATE AMINO TRANSFERASE 28 U/L (17-59); BILIRUBIN,DIRECT 0.3 mg/dL (0.0-0.4); BILIRUBIN,TOTAL 0.5 mg/dL (0.2-1.3)
--- NOTE | 2018-01-05 07:40 | EKG REPORT ---
SEVERITY:- NORMAL ECG - SINUS RHYTHM : Confirmed by: Juan Pablo Holm MD 05-Jan-2018 07:39:23
[2018-01-05 07:44] LABS: ABSOLUTE BASOPHILS # (AUTO) 0.1 10^3/uL (0.0-0.2); ABSOLUTE EOSINOPHILS # (AUTO) 0.2 10^3/uL (0.0-0.6); ABSOLUTE MONOCYTES (AUTO) 0.3 10^3/uL (0.1-1.4); ABSOLUTE NEUT (AUTO) 4.6 10^3/uL (1.7-8.2); BASOPHILS % (AUTO) 1.1 % (0-2); EOSINOPHILS % (AUTO) 2.8 % (0-6); HEMATOCRIT 34.7 % (37.9-51.0); HEMOGLOBIN 10.7 g/dL (13.5-17.0); LYMPHOCYTES % (AUTO) 16.3 % (13-45); MEAN CORPUSCULAR HEMOGLOBIN 25.3 pg (27.0-33.4); MEAN CORPUSCULAR HGB CONC 30.8 g/dL (32.0-36.0); MEAN CORPUSCULAR VOLUME 82 fl (80-97); MONOCYTES % (AUTO) 5.5 % (3-13); PLATELET COUNT 215 10^3/uL (150-450); RED BLOOD COUNT 4.23 10^6/uL (4.35-5.55); RED CELL DISTRIBUTION WIDTH 22.2 % (11.5-14.0); SEGMENTED NEUTROPHILS % (AUTO) 74.3 % (42-78); TOTAL CELLS COUNTED % (AUTO) 100 %; WHITE BLOOD COUNT 6.2 10^3/uL (4.0-10.5)
[2018-01-05 07:45] LABS: ANION GAP 18 (5-19); CARBON DIOXIDE 15 mmol/L (22-30); CHLORIDE 100 mmol/L (98-107); SODIUM 133.3 mmol/L (137-145)
[2018-01-05 07:52] LABS: GLUCOSE 679 mg/dL (75-110)
--- NOTE | 2018-01-05 07:59 | RADIOLOGY REPORT (SQ) ---
EXAM DESCRIPTION: XR CHEST 1 VIEW COMPLETED DATE/TME: 01/05/2018 07:35 EXAM DESCRIPTION: Single view of the chest CLINICAL HISTORY: chest pain COMPARISON: 11/19/2017 FINDINGS: Single frontal view of the chest. The cardiomediastinal silhouette has normal size and contour. No consolidation, pneumothorax, or pleural effusion. Leads overlie the chest. Low lung volumes. No displaced rib fractures identified. Upper abdominal soft tissues are unremarkable. IMPRESSION: 1. No acute pulmonary process identified.
[2018-01-05] MEDS ORDERED: ZOLPIDEM TARTRATE 5 MG TABLET PO PRN (08:04)
[2018-01-05] MEDS ORDERED: MAGNESIUM HYDROXIDE SUSP 30 ML UDCUP PO PRN (08:04)
[2018-01-05] MEDS ORDERED: MAG HYDROX/AL HYDROX/SIMETH SUSP 30 ML UDCUP PO PRN (08:04)
[2018-01-05] MEDS ORDERED: MORPHINE SULFATE 10 MG/ML INJ IV PRN ×2 (08:13)
[2018-01-05] MEDS ORDERED: ACETAMINOPHEN 325 MG TABLET PO PRN (08:13)
[2018-01-05] MEDS ORDERED: ACETAMINOPHEN 650 MG SUPP.RECT PR PRN (08:13)
[2018-01-05] MEDS ORDERED: DEXTROSE 50%-WATER 25 GM/50 ML DISP.SYRIN IV PRN ×2 (08:15)
[2018-01-05] MEDS ORDERED: GLUCAGON,HUMAN RECOMB 1 MG INJ IM PRN (08:15)
[2018-01-05] MEDS ORDERED: DEXTROSE 40% GEL 15 GM TUBE PO PRN ×2 (08:15)
[2018-01-05] MEDS ORDERED: DEXTROSE 5%-WATER 1000 ML 1,000 ML with SODIUM BICARBONATE 150 MEQ IV PRN ×2 (08:20)
[2018-01-05 08:23] LABS: AMORPHOUS SEDIMENT,URINE TRACE /HPF; APPEARANCE,URINE CLEAR; BILIRUBIN,URINE NEGATIVE (NEGATIVE); COLOR,URINE COLORLESS; GLUCOSE, URINE >=500 mg/dL (NEGATIVE); KETONES,URINE 20 mg/dL (NEGATIVE); LEUKOCYTE ESTERASE,URINE NEGATIVE (NEGATIVE); NITRITE,URINE NEGATIVE (NEGATIVE); PROTEIN,URINE NEGATIVE (NEGATIVE); URINE SPECIFIC GRAVITY 1.024; UROBILINOGEN,URINE NEGATIVE mg/dL (<2.0)
[2018-01-05] MEDS ORDERED: INSULIN REG, HUMAN 100 UNIT/ML 3 ML VIAL (PYX) ONE ×2 (08:36→08:40)
[2018-01-05] MEDS: PANTOPRAZOLE SODIUM 40 MG VIAL IV SCH ×2 (10:01→21:45)
[2018-01-05] MEDS: DOCUSATE SODIUM 100 MG CAPSULE PO SCH ×2 (10:01→17:01)
[2018-01-05] MEDS: NORMAL SALINE 100 ML with INSULIN REGULAR, HUMAN 100 UNIT IV PRN ×4 (11:45→12:01)
[2018-01-05] MEDS: SUCRALFATE SUSP 1 GM/10 ML UDCUP PO SCH ×3 (12:23→21:35)
[2018-01-05] MEDS: METOCLOPRAMIDE HCL INJ/PF 10 MG/2 ML SDV IV SCH ×3 (12:23→21:44)
[2018-01-05] MEDS: POTASSI CL 20 MEQ/1/2NS 1L 20 MEQ/1,000 ML RTUINJ IV PRN ×3 (12:47→22:31)
[2018-01-05] MEDS: HEPARIN SOD (PORCINE) 5,000 UNIT/ML 1 ML SYRINGE SUBCUT SCH ×2 (15:26→21:35)
[2018-01-05] MEDS: MORPHINE SULFATE 10 MG/ML INJ IV PRN ×3 (17:00→22:08)
[2018-01-05] MEDS: PROMETHAZINE HCL INJ 25 MG/1 ML VIAL IV PRN ×2 (17:00→22:09)
--- NOTE | 2018-01-05 19:42 | PDOC H&P ---
History of Present Illness Admission Date/PCP: 01/05/18 08:06 Patient complains of: Weakness and malaise History of Present Illness: CHESTER MCKEON is a 37 year old male who presented to the emergency room complaining of a 3-day history of progressively worsening weakness and malaise. His symptoms have been accompanied by nausea, vomiting and diarrhea as well as intermittent episodes of chest and epigastric/left upper quadrant abdominal pain. He describes the pain as a sharp crampy pain that lasts for a few minutes in his central and left chest as well as his upper abdomen in the epigastric region and the left upper quadrant. The pain is not elicited by any specific activity or action and resolve spontaneously. He has not identified any aggravating or ameliorating factors for his pain and he rates it as a 10 at its most severe. He indicates that he has had similar episodes when he has developed diabetic ketoacidosis in the past. He feels that the pain may be related to his multiple episodes of vomiting and/or his multiple episodes of diarrhea over the last several days. He has noted that his blood sugar has steadily risen over the last 24-48 hours and as such she is presented to the emergency room for further treatment as he has also run out of his Levemir and NovoLog. In the emergency room his blood sugar was 679, his pH on arterial blood gases was 7.20 and his urine ketone was 20. The diagnosis of diabetic ketoacidosis was established and the patient was admitted for further treatment. Past Medical History Cardiac Medical History: Reports: Hyperlipidema, Hypertension - Taken off medication for same. Denies: Atrial Fibrillation, Congestive Heart Failure, Coronary Artery Disease, Myocardial Infarction, Pulmonary Embolism Pulmonary Medical History: Denies: Asthma, Chronic Obstructive Pulmonary Disease (COPD), Sleep Apnea EENT Medical History: Reports: None Neurological Medical History: Denies: Migraine, Seizures Endocrine Medical History: Reports: Diabetes Mellitus Type 2 Denies: Hyperthyroidism, Hypothyroidism Renal/ Medical History: Denies: Chronic Kidney Disease, End Stage Renal Disease, Nephrolithiasis Malignancy Medical History: Reports: None GI Medical History: Reports: Gastroesophageal Reflux Disease Denies: Cirrhosis, Hepatitis Musculoskeltal Medical History: Denies: Arthritis, Fibromyalgia Skin Medical History: Denies: Eczema, Psoriasis Psychiatric Medical History: Reports: Depression, Substance Abuse Denies: Alcohol Dependency, Tobacco Dependency Traumatic Medical History: Reports: None Hematology: Reports: Anemia - Chronic illnesses Denies: Sickle Cell Disease, Bleeding Tendencies Infectious Medical History: Reports: Methicillin-Resistant Staph Aureus Denies: Clostridium Difficile, Hepatitis C Past Surgical History Past Surgical History: Reports: Orthopedic Surgery - back, left long finger PIP disarticulation, now s/p right hand I and D Denies: Appendectomy, Cholecystectomy, Tonsillectomy Social History Information Source: Patient Lives with: Alone Smoking Status: Never Smoker Frequency of Alcohol Use: None Hx Recreational Drug Use: Yes Drugs: Cocaine, Marijuana Hx Prescription Drug Abuse: No - Advance Directive Resuscitation Status: Full Code Surrogate healthcare decision maker:: Mother Family History Family History: DM, Hyperlipidemia, Hypertension Parental Family History Reviewed: Yes Children Family History Reviewed: NA Sibling(s) Family History Reviewed.: Yes Medication/Allergy Home Medications: Insulin Lispro [Humalog Insulin (Lispro) 100 unit/mL] 0 units SQ .PERSLIDINGSCALE 10/28/17 Gabapentin 600 mg PO TID 01/05/18 Insulin Glargine,Hum.rec.anlog [Lantus Insulin 100 Unit/1 ml 10 ml] 25 unit SUBCUT Q12 01/05/18 Lipase/Protease/Amylase [Pancrease Ec Capsule] 1 each PO AC 01/05/18 Allergies/Adverse Reactions: ondansetron [From Zofran (as hydrochloride)] Allergy (Verified 01/05/18 07:34) Review of Systems Constitutional: PRESENT: as per HPI, fatigue, weakness, other - Malaise. ABSENT : chills, fever(s) Eyes: ABSENT: visual disturbances, other - Ocular pain Ears: ABSENT: hearing changes, other - Ear pain Nose, Mouth, and Throat: ABSENT: mouth pain, sore throat Cardiovascular: PRESENT: as per HPI, chest pain, edema. ABSENT: dyspnea on exertion, orthropnea, palpitations Respiratory: ABSENT: cough, dyspnea, hemoptysis Gastrointestinal: PRESENT: as per HPI, abdominal pain, diarrhea, nausea, vomiting. ABSENT: constipation, dysphagia Genitourinary: ABSENT: dysuria, hematuria Musculoskeletal: ABSENT: back pain, joint swelling Integumentary: ABSENT: pruritus, rash Neurological: ABSENT: confusion, lack of coordination, memory loss, tremor(s) Psychiatric: PRESENT: depression. ABSENT: anxiety, suicidal ideation Endocrine: ABSENT: cold intolerance, heat intolerance Hematologic/Lymphatic: ABSENT: easy bleeding, easy bruising Allergic/Immunologic: ABSENT: seasonal rhinorrhea, other - Insect bite allergy Physical Exam Vital Signs: Temp Pulse Resp BP Pulse Ox 98.3 F 91 16 122/70 100 01/05/18 15:02 01/05/18 15:02 01/05/18 15:02 01/05/18 15:02 01/05/18 15:02 Intake & Output 01/03/18 01/04/18 01/05/18 23:59 23:59 23:59 Intake Total 5067 Balance 5067 Weight 75.9 kg General appearance: PRESENT: no acute distress, cooperative, well-developed, well-nourished Head exam: PRESENT: atraumatic, normocephalic Eye exam: PRESENT: conjunctiva pink, EOMI Ear exam: PRESENT: normal external ear exam. ABSENT: drainage Mouth exam: PRESENT: neck supple, other - Oral mucosa is moist and intact. Dentition is in fair repair. Neck exam: ABSENT: JVD, thyromegaly, tracheal deviation Respiratory exam: PRESENT: clear to auscultation alfonso, symmetrical, unlabored Cardiovascular exam: PRESENT: RRR. ABSENT: clicks, gallop, rubs Pulses: PRESENT: normal radial pulses, normal dorsalis pedis pul Vascular exam: PRESENT: normal capillary refill. ABSENT: pallor GI/Abdominal exam: PRESENT: normal bowel sounds, soft, tenderness - Epigastric and left upper quadrant of the abdomen with reproducible pain of chief complaint on palpation. Rectal exam: PRESENT: deferred Extremities exam: ABSENT: joint swelling, pedal edema Musculoskeletal exam: PRESENT: full ROM, normal inspection Neurological exam: PRESENT: alert, oriented to person, oriented to place, oriented to time, oriented to situation, CN II-XII grossly intact. ABSENT: motor sensory deficit Psychiatric exam: PRESENT: appropriate affect, normal mood Skin exam: PRESENT: dry, intact - [id number], warm. ABSENT: jaundice, rash, urticaria Results Impressions: Chest X-Ray 01/05/18 07:35 IMPRESSION: 1. No acute pulmonary process identified. Assessment & Plan - Diagnosis (1) DM (diabetes mellitus) type 2, uncontrolled, with ketoacidosis Is this a current diagnosis for this admission?: Yes Plan: Patient's DKA will be treated with an insulin drip as well as a bicarbonate drip to treat various aspects of his ketoacidosis and hyperglycemia. Additionally he will be continued on high-volume IV fluids utilizing half- normal saline with 20 mEq of potassium per liter. His urine output will be monitored closely during his hospital stay and he will have serial blood sugars performed before meals and at bedtime as well as every 1-2 hours while he is on an insulin drip. His electrolytes will be closely monitored on a daily basis or more frequently as indicated. His symptoms are related to his diabetic ketoacidosis of chest and abdominal pain will be treated with morphine sulfate on a sliding scale basis utilizing 2-4 mg of IV morphine every 2 hours as needed for pain control. His nausea will be controlled by utilizing Reglan 10 mg IV before meals and at bedtime with additional Phenergan 25 mg IV every 6 hours as needed nausea or vomiting not responding to other therapy. Tylenol 650 mg p.o. or rectal suppository every 4 hours will be used for control of fever and minor pain. (2) Polysubstance abuse Is this a current diagnosis for this admission?: Yes Plan: Patient admits to a history and current practice of polysubstance abuse. He is not known to use drugs with potential for withdrawal during hospital courses. He will be observed with daily lab work and close staff scrutiny during his hospital course for any problems associated with his polysubstance abuse or any new occurrences of his polysubstance abuse. (3) Hyponatremia Is this a current diagnosis for this admission?: Yes Plan: Patient has hyponatremia which is expected to resolve with treatment of his hyperglycemia and diabetic ketoacidosis. This will be monitored throughout his hospital course. (4) Anemia Qualifiers: Anemia type: unspecified type Qualified Code(s): D64.9 - Anemia, unspecified Is this a current diagnosis for this admission?: Yes Plan: Patient has a low-grade anemia which should be evaluated by his primary care provider on outpatient basis and his post hospital follow-up course. (5) DVT prophylaxis Is this a current diagnosis for this admission?: Yes Plan: Patient is placed on appropriate pharmacologic and mechanical measures DVT prophylaxis. - Time Time Spent: 30 to 50 Minutes Medications reviewed and adjusted accordingly: Yes Anticipated discharge: Home Within: within 72 hours - Inpatient Certification Medical Necessity: Need Close Monitoring Due to Risk of Patient Decompensation, Need For IV Fluids, Risk of Complication if Not Cared For in Hospital
[2018-01-06 00:47] LABS: ALANINE AMINOTRANSFERASE 33 U/L (21-72); ALBUMIN 3.4 g/dL (3.5-5.0); ALKALINE PHOSPHATASE 167 U/L (38-126); ANION GAP 13 (5-19); ASPARTATE AMINO TRANSFERASE 23 U/L (17-59); BILIRUBIN,DIRECT 0.3 mg/dL (0.0-0.4); BILIRUBIN,TOTAL 0.4 mg/dL (0.2-1.3); BLOOD UREA NITROGEN 22 mg/dL (7-20); CALCIUM 9.5 mg/dL (8.4-10.2); CARBON DIOXIDE 20 mmol/L (22-30); CHLORIDE 107 mmol/L (98-107); GLUCOSE 43 mg/dL (75-110); SODIUM 140.1 mmol/L (137-145); TOTAL PROTEIN 6.8 g/dL (6.3-8.2)
[2018-01-06 00:58] LABS: POTASSIUM 3.6 mmol/L (3.6-5.0)
[2018-01-06] MEDS ORDERED: INSULIN GLARGINE,HUM.REC.ANLOG 1,000 UNIT/10 ML UNIT SUBCUT ONE (01:30)
[2018-01-06] MEDS: MORPHINE SULFATE 10 MG/ML INJ IV PRN ×3 (01:58→11:55)
[2018-01-06] MEDS ORDERED: POTASSI CL 20 MEQ/1/2NS 1L 20 MEQ/1,000 ML RTUINJ IV ONE (02:00)
[2018-01-06] MEDS: INSULIN LISPRO 100 UNIT/ML 3 ML VIAL SUBCUT PRN ×5 (02:35→07:12)
[2018-01-06] MEDS: HEPARIN SOD (PORCINE) 5,000 UNIT/ML 1 ML SYRINGE SUBCUT SCH ×2 (05:42→13:54)
[2018-01-06 07:04] LABS: HEMATOCRIT 29.9 % (37.9-51.0); HEMOGLOBIN 9.7 g/dL (13.5-17.0); MEAN CORPUSCULAR HEMOGLOBIN 25.2 pg (27.0-33.4); MEAN CORPUSCULAR HGB CONC 32.5 g/dL (32.0-36.0); PLATELET COUNT 209 10^3/uL (150-450); RED BLOOD COUNT 3.85 10^6/uL (4.35-5.55); RED CELL DISTRIBUTION WIDTH 22.2 % (11.5-14.0); WHITE BLOOD COUNT 7.3 10^3/uL (4.0-10.5)
[2018-01-06 07:12] LABS: ALANINE AMINOTRANSFERASE 35 U/L (21-72); ALBUMIN 3.2 g/dL (3.5-5.0); ALKALINE PHOSPHATASE 145 U/L (38-126); ANION GAP 12 (5-19); ASPARTATE AMINO TRANSFERASE 19 U/L (17-59); BILIRUBIN,DIRECT 0.1 mg/dL (0.0-0.4); BILIRUBIN,TOTAL 0.2 mg/dL (0.2-1.3); BLOOD UREA NITROGEN 20 mg/dL (7-20); CALCIUM 9.2 mg/dL (8.4-10.2); CARBON DIOXIDE 20 mmol/L (22-30); CHLORIDE 107 mmol/L (98-107); GLUCOSE 164 mg/dL (75-110); POTASSIUM 4.3 mmol/L (3.6-5.0); SODIUM 138.5 mmol/L (137-145); TOTAL PROTEIN 6.4 g/dL (6.3-8.2)
[2018-01-06] MEDS: PROMETHAZINE HCL INJ 25 MG/1 ML VIAL IV PRN ×2 (07:13→11:56)
[2018-01-06 07:33] LABS: MEAN CORPUSCULAR VOLUME 78 fl (80-97)
[2018-01-06] MEDS: SUCRALFATE SUSP 1 GM/10 ML UDCUP PO SCH ×3 (08:01→16:07)
[2018-01-06] MEDS: METOCLOPRAMIDE HCL INJ/PF 10 MG/2 ML SDV IV SCH ×3 (08:01→16:08)
[2018-01-06] MEDS ORDERED: INSULIN LISPRO 100 UNIT/ML 3 ML VIAL SUBCUT SCH (09:00)
[2018-01-06] MEDS: INSULIN LISPRO 100 UNIT/ML 3 ML VIAL SUBCUT SCH ×2 (09:30→13:29)
[2018-01-06] MEDS: DOCUSATE SODIUM 100 MG CAPSULE PO SCH (09:43)
[2018-01-06] MEDS: PANTOPRAZOLE SODIUM 40 MG VIAL IV SCH (09:43)
[2018-01-06] MEDS ORDERED: INSULIN GLARGINE,HUM.REC.ANLOG 1,000 UNIT/10 ML UNIT SUBCUT SCH ×2 (10:00→22:00)
[2018-01-06] MEDS ORDERED: LIPASE PO SCH (11:00)
[2018-01-06] MEDS ORDERED: AMYLASE PO SCH (11:00)
[2018-01-06] MEDS ORDERED: PROTEASE PO SCH (11:00)
[2018-01-06] MEDS: LIPASE/PROTEASE/AMYLASE 1 CAP CAPSULE.DR PO SCH ×2 (11:13→16:07)
[2018-01-06] MEDS ORDERED: INSULIN LISPRO 100 UNIT/ML 3 ML VIAL SUBCUT ONE (13:15)
--- NOTE | 2018-01-06 14:23 | PDOC DISCHARGE SUMMARY ---
General - Admit/Disc Date/PCP Admission Date/Primary Care Provider: 01/05/18 08:06 Discharge Date: 01/06/18 - Discharge Diagnosis (1) DM (diabetes mellitus) type 2, uncontrolled, with ketoacidosis Is this a current diagnosis for this admission?: Yes Summary: Patient's DKA will be treated with an insulin drip as well as a bicarbonate drip to treat various aspects of his ketoacidosis and hyperglycemia. Additionally he will be continued on high-volume IV fluids utilizing half- normal saline with 20 mEq of potassium per liter. His urine output will be monitored closely during his hospital stay and he will have serial blood sugars performed before meals and at bedtime as well as every 1-2 hours while he is on an insulin drip. His electrolytes will be closely monitored on a daily basis or more frequently as indicated. His symptoms are related to his diabetic ketoacidosis of chest and abdominal pain will be treated with morphine sulfate on a sliding scale basis utilizing 2-4 mg of IV morphine every 2 hours as needed for pain control. His nausea will be controlled by utilizing Reglan 10 mg IV before meals and at bedtime with additional Phenergan 25 mg IV every 6 hours as needed nausea or vomiting not responding to other therapy. Tylenol 650 mg p.o. or rectal suppository every 4 hours will be used for control of fever and minor pain. 01/06/2018: He was informed that his hemoglobin A1c was 12.7 and that with this finding will need to have him increase his Lantus or Levemir insulin to 40 units subcu twice daily and increase his NovoLog insulin to 15 units prior to every meal with an additional increase in that number of units based on his sliding scale. I have encouraged him to obtain more test strips for his glucometer from the [facility] and to follow-up with the [facility] in 1- 2 weeks to report his results of therapy. Further adjustment in his insulin dosage will probably be required within that time. (2) Polysubstance abuse Is this a current diagnosis for this admission?: Yes Summary: Patient admits to a history and current practice of polysubstance abuse. He is not known to use drugs with potential for withdrawal during hospital courses. He will be observed with daily lab work and close staff scrutiny during his hospital course for any problems associated with his polysubstance abuse or any new occurrences of his polysubstance abuse. (3) Hyponatremia Is this a current diagnosis for this admission?: Yes Summary: Patient has hyponatremia which is expected to resolve with treatment of his hyperglycemia and diabetic ketoacidosis. This will be monitored throughout his hospital course. 01/06/2018: Patient's serum sodium had returned to normal at the time of discharge. (4) Anemia Is this a current diagnosis for this admission?: Yes Summary: Patient has a low-grade anemia which should be evaluated by his primary care provider on outpatient basis and his post hospital follow-up course. The anemia is noted to be hypochromic and microcytic. (5) DVT prophylaxis Is this a current diagnosis for this admission?: Yes Summary: Patient is placed on appropriate pharmacologic and mechanical measures DVT prophylaxis. - Additional Information Resuscitation Status: Full Code Discharge Diet: Diabetic Discharge Activity: Activity As Tolerated, Walk Frequently Home Medications: Lipase/Protease/Amylase [Pancrease EC Capsule] 1 each PO AC 01/05/18 Insulin Glargine,Hum.rec.anlog [Lantus Insulin 100 Unit/1 ml 10 ml] 40 unit SUBCUT Q12 #0 01/06/18 Insulin Lispro [Humalog Insulin (Lispro) 100 unit/mL] 15 units SQ PC #0 History of Present Illness Patient complains of: Weakness and malaise History of Present Illness: CHESTER MCKEON is a 37 year old male who presented to the emergency room complaining of a 3-day history of progressively worsening weakness and malaise. His symptoms have been accompanied by nausea, vomiting and diarrhea as well as intermittent episodes of chest and epigastric/left upper quadrant abdominal pain. He describes the pain as a sharp crampy pain that lasts for a few minutes in his central and left chest as well as his upper abdomen in the epigastric region and the left upper quadrant. The pain is not elicited by any specific activity or action and resolve spontaneously. He has not identified any aggravating or ameliorating factors for his pain and he rates it as a 10 at its most severe. He indicates that he has had similar episodes when he has developed diabetic ketoacidosis in the past. He feels that the pain may be related to his multiple episodes of vomiting and/or his multiple episodes of diarrhea over the last several days. He has noted that his blood sugar has steadily risen over the last 24-48 hours and as such she is presented to the emergency room for further treatment as he has also run out of his Levemir and NovoLog. In the emergency room his blood sugar was 679, his pH on arterial blood gases was 7.20 and his urine ketone was 20. The diagnosis of diabetic ketoacidosis was established and the patient was admitted for further treatment. Hospital Course Hospital Course: 01/06/2018: Chester is doing quite well today as his diabetic ketoacidosis has improved dramatically to resolution. He is eating and drinking well with no chest pain, abdominal pain, nausea or vomiting. He is not having any difficulty with eliminating and his diarrhea has resolved. He has been up and active and feels like he is ready to be discharged. Because of his dramatic improvement and resolution of all symptoms he will be discharged home in improved and stable condition on 01/06/2018. He was informed that his hemoglobin A1c was 12.7 and that with this finding will need to have him increase his Lantus or Levemir insulin to 40 units subcu twice daily and increase his NovoLog insulin to 15 units prior to every meal with an additional increase in that number of units based on his sliding scale. I have encouraged him to obtain more test strips for his glucometer from the [facility] and to follow-up with the [facility] in 1-2 weeks to report his results of therapy. Further adjustment in his insulin dosage will probably be required within that time. Physical Exam Vital Signs: Temp Pulse Resp BP Pulse Ox 98.4 F 99 16 129/84 H 100 01/06/18 11:24 01/06/18 11:24 01/06/18 11:24 01/06/18 11:24 01/06/18 11:24 Intake & Output 01/04/18 01/05/18 01/06/18 23:59 23:59 23:59 Intake Total 6084 3746 Balance 6084 3746 Weight 75.9 kg 79.7 kg General appearance: PRESENT: no acute distress, cooperative, well-developed, well-nourished Head exam: PRESENT: atraumatic, normocephalic Eye exam: PRESENT: conjunctiva pink, EOMI Ear exam: PRESENT: normal external ear exam Mouth exam: PRESENT: neck supple Respiratory exam: PRESENT: clear to auscultation alfonso, symmetrical, unlabored Cardiovascular exam: PRESENT: RRR. ABSENT: clicks, gallop, rubs Vascular exam: PRESENT: normal capillary refill. ABSENT: pallor Rectal exam: PRESENT: deferred Extremities exam: ABSENT: joint swelling, pedal edema Musculoskeletal exam: PRESENT: ambulatory, full ROM, normal inspection Neurological exam: PRESENT: alert, oriented to person, oriented to place, oriented to time, oriented to situation Psychiatric exam: PRESENT: appropriate affect, normal mood Skin exam: PRESENT: dry, intact, warm Results Laboratory Results: 01/06/18 05:46 01/06/18 05:46 01/06/18 01/06/18 01/06/18 00:27 05:46 05:46 WBC 7.3 RBC 3.85 L Hgb 9.7 L Hct 29.9 L MCV 78 L D MCH 25.2 L MCHC 32.5 RDW 22.2 H Plt Count 209 Sodium 140.1 138.5 Potassium 3.6 D 4.3 Chloride 107 107 Carbon Dioxide 20 L 20 L Anion Gap 13 12 BUN 22 H 20 Creatinine 1.06 1.00 Est GFR ( Amer) > 60 > 60 Est GFR (Non-Af Amer) > 60 > 60 Glucose 43 L 164 H Calcium 9.5 9.2 Magnesium 1.8 Total Bilirubin 0.4 0.2 AST 23 19 ALT 33 35 Alkaline Phosphatase 167 H 145 H Total Protein 6.8 6.4 Albumin 3.4 L 3.2 L Impressions: Chest X-Ray 01/05/18 07:35 IMPRESSION: 1. No acute pulmonary process identified. Qualifiers - * PATIENT BEING DISCHARGED WITH ANY OF THE FOLLOWING DIAGNOSIS: No Plan Discharge Plan: Discharge to home in improved and stable condition Time Spent: Greater than 30 Minutes
[2018-01-06 17:14] VITALS: BP 122/70
== END 2018-01-06 22:16 | disposition home or self-care (01) | DRG 638 ==
LOC: ER 06:56 → EH 08:06 → 3N 11:40
PROVIDERS: ADMIT Emergency Medicine; ATTEND Emergency Medicine
DX: E11.10 Type 2 diabetes mellitus with ketoacidosis without coma (principal); E87.1 Hypo-osmolality and hyponatremia; F19.10 Other psychoactive substance abuse, uncomplicated; E78.00 Pure hypercholesterolemia, unspecified; I10 Essential (primary) hypertension; K21.9 Gastro-esophageal reflux disease without esophagitis; D50.9 Iron deficiency anemia, unspecified; F32.9 Major depressive disorder, single episode, unspecified; M19.90 Unspecified osteoarthritis, unspecified site; Z60.2 Problems related to living alone; Z79.899 Other long term (current) drug therapy; Z79.4 Long term (current) use of insulin; Z86.14 Personal history of Methicillin resistant Staphylococcus aureus infection; Z88.8 Allergy status to other drugs, medicaments and biological substances; Z83.3 Family history of diabetes mellitus; Z82.49 Family history of ischemic heart disease and other diseases of the circulatory system
CPT/HCPCS: 36415; 71045; 80053; 81001; 82803; 82962; 83036; 83605; 83735; 84484; 85025; 85027; 93005; 93010; 96360; 99291; J1815; J2270; J2550; J2765; J3480; J3490; J7030; J7060; S0164

== ENCOUNTER 2018-01-12 13:23 | Inpatient (IN) | payer SELFPAY ==
[2018-01-12] MEDS ORDERED: NORMAL SALINE 1000 ML 1,000 ML IV ONE (13:37)
[2018-01-12] MEDS ORDERED: FENTANYL CITRATE INJ/PF 100 MCG/2 ML AMPUL IV ONE (14:37)
[2018-01-12] MEDS ORDERED: METOCLOPRAMIDE HCL INJ/PF 10 MG/2 ML SDV IV ONE (14:38)
[2018-01-12 14:53] LABS: APPEARANCE,URINE CLEAR; BILIRUBIN,URINE NEGATIVE (NEGATIVE); COLOR,URINE STRAW; GLUCOSE, URINE >=500 mg/dL (NEGATIVE); KETONES,URINE 20 mg/dL (NEGATIVE); LEUKOCYTE ESTERASE,URINE NEGATIVE (NEGATIVE); NITRITE,URINE NEGATIVE (NEGATIVE); PROTEIN,URINE NEGATIVE (NEGATIVE); URINE SPECIFIC GRAVITY 1.024; UROBILINOGEN,URINE NEGATIVE mg/dL (<2.0)
[2018-01-12 15:02] LABS: ABSOLUTE EOSINOPHILS # (AUTO) 0.1 10^3/uL (0.0-0.6); ABSOLUTE LYMPHOCYTES (AUTO) 1.1 10^3/uL (0.5-4.7); ABSOLUTE MONOCYTES (AUTO) 0.6 10^3/uL (0.1-1.4); ABSOLUTE NEUT (AUTO) 4.8 10^3/uL (1.7-8.2); BASOPHILS % (AUTO) 0.4 % (0-2); EOSINOPHILS % (AUTO) 0.9 % (0-6); HEMATOCRIT 35.8 % (37.9-51.0); HEMOGLOBIN 10.7 g/dL (13.5-17.0); LYMPHOCYTES % (AUTO) 16.2 % (13-45); MEAN CORPUSCULAR HEMOGLOBIN 25.1 pg (27.0-33.4); MONOCYTES % (AUTO) 8.5 % (3-13); PLATELET COUNT 271 10^3/uL (150-450); RED BLOOD COUNT 4.28 10^6/uL (4.35-5.55); RED CELL DISTRIBUTION WIDTH 21.7 % (11.5-14.0); TOTAL CELLS COUNTED % (AUTO) 100 %; WHITE BLOOD COUNT 6.5 10^3/uL (4.0-10.5)
[2018-01-12 15:12] LABS: URINE AMPHETAMINES SCREEN NEGATIVE; URINE BARBITURATES SCREEN NEGATIVE; URINE BENZODIAZEPINES SCREEN NEGATIVE; URINE COCAINE SCREEN UNCONFIRMED POSITIVE; URINE MARIJUANA (THC) SCREEN NEGATIVE; URINE METHADONE SCREEN NEGATIVE; URINE PHENCYCLIDINE SCREEN NEGATIVE
[2018-01-12 15:15] LABS: MEAN CORPUSCULAR VOLUME 84 fl (80-97)
[2018-01-12 15:27] LABS: ALANINE AMINOTRANSFERASE 37 U/L (21-72); ALBUMIN 3.6 g/dL (3.5-5.0); ALKALINE PHOSPHATASE 166 U/L (38-126); ASPARTATE AMINO TRANSFERASE 21 U/L (17-59); BILIRUBIN,DIRECT 0.3 mg/dL (0.0-0.4); BILIRUBIN,TOTAL 0.5 mg/dL (0.2-1.3); BLOOD UREA NITROGEN 32 mg/dL (7-20); CALCIUM 8.9 mg/dL (8.4-10.2); POTASSIUM 5.2 mmol/L (3.6-5.0); TOTAL PROTEIN 6.9 g/dL (6.3-8.2)
[2018-01-12 15:32] LABS: CHLORIDE 94 mmol/L (98-107)
[2018-01-12 15:45] LABS: ALCOHOL < 10 mg/dL (NONE DETECTED); LIPASE 5919.1 U/L (23-300)
[2018-01-12 15:46] LABS: GLUCOSE 744 mg/dL (75-110)
[2018-01-12 15:47] LABS: ANION GAP 24 (5-19); CARBON DIOXIDE 10 mmol/L (22-30)
[2018-01-12] MEDS ORDERED: INSULIN REG, HUMAN 100 UNIT/ML 3 ML VIAL (PYX) IV ONE (16:56)
--- NOTE | 2018-01-12 16:56 | ER Document Report ---
ED Blood Sugar Problem - General Chief Complaint: High Blood Sugar Stated Complaint: BLOOD SUGAR ISSUES Time Seen by Provider: 01/12/18 13:35 Mode of Arrival: Medic Information source: Patient, Relative TRAVEL OUTSIDE OF THE [place] IN LAST 30 DAYS: No - HPI Patient complains to provider of: High blood sugar Onset: Other - 37-year-old male with a history of diabetic ketoacidosis that presents for evaluation of 3 days without diabetes medications and resultant abdominal pain recurrent vomiting and generalized unwell says that he does feel like previous episodes of DKA in the past. His medications cost too much that is made so it is difficult for him to obtain them. - Related Data Allergies/Adverse Reactions: ondansetron [From Zofran (as hydrochloride)] Allergy (Verified 01/05/18 07:34) Past Medical History - General Information source: Patient, Relative - Social History Smoking Status: Current Every Day Smoker Smoking Education Provided: No Family History: DM, Hyperlipidemia, Hypertension - Past Medical History Cardiac Medical History: Reports: Hx Hypercholesterolemia, Hx Hypertension - Taken off medication for same. Denies: Hx Atrial Fibrillation, Hx Congestive Heart Failure, Hx Coronary Artery Disease, Hx Heart Attack, Hx Pulmonary Embolism Pulmonary Medical History: Denies: Hx Asthma, Hx COPD, Hx Sleep Apnea Neurological Medical History: Denies: Hx Migraine, Hx Seizures Endocrine Medical History: Reports: Hx Diabetes Mellitus Type 1, Hx Diabetes Mellitus Type 2. Denies: Hx Hyperthyroidism, Hx Hypothyroidism Renal/ Medical History: Denies: Hx End Stage Renal Disease, Hx Peritoneal Dialysis GI Medical History: Reports: Hx Gastroesophageal Reflux Disease, Hx Pancreatitis. Denies: Hx Cirrhosis, Hx Hepatitis Musculoskeletal Medical History: Denies Hx Arthritis, Denies Hx Fibromyalgia Skin Medical History: Denies Hx Eczema, Denies Hx Psoriasis Psychiatric Medical History: Reports: Hx Depression Infectious Medical History: Reports: Hx MRSA. 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 Denies: Hx Appendectomy, Hx Cholecystectomy, Hx Tonsillectomy - Immunizations Hx Diphtheria, Pertussis, Tetanus Vaccination: Yes Hx Pneumococcal Vaccination: 11/09/11 Review of Systems - Review of Systems -: Yes All other systems reviewed and negative Physical Exam - Vital signs Vitals: Temp Pulse Resp BP Pulse Ox 97.5 F 98 16 113/61 100 12/05/18 16:46 01/12/18 16:46 01/12/18 16:46 01/12/18 16:46 01/12/18 16:46 - General General appearance: Alert, Anxious In distress: Mild - HEENT Head: Normocephalic Eyes: Normal Conjunctiva: Normal Cornea: Normal Extraocular movements intact: No Eyelashes: Normal Pupils: PERRL - Respiratory Respiratory status: Tachypnea Chest status: Nontender Breath sounds: Normal Chest palpation: Normal - Cardiovascular Rhythm: Regular Heart sounds: Normal auscultation Murmur: No - Abdominal Inspection: Normal Distension: No distension Tenderness: Tender - Back Back: Normal, Nontender - Extremities General upper extremity: Normal inspection, Nontender, Normal color, Normal ROM , Normal temperature General lower extremity: Normal inspection, Nontender, Normal color, Normal ROM , Normal temperature, Normal weight bearing. No: Hailey's sign - Neurological Neuro grossly intact: Yes Cognition: Normal Orientation: AAOx4 Unruly Coma Scale Eye Opening: Spontaneous Unruly Coma Scale Verbal: Oriented Unruly Coma Scale Motor: Obeys Commands Unruly Coma Scale Total: 15 Speech: Normal Motor strength normal: LUE, RUE, LLE, RLE Sensory: Normal - Psychological Associated symptoms: Normal affect, Normal mood Course - Re-evaluation Re-evalutation: 37-year-old male with a history of DKA in the past presents for evaluation of intractable abdominal pain and elevated blood sugars in the setting of not having his medications. He endorses bad abdominal pain, low-grade fevers, chills. Says that this feels like previous DKA in the past. He is unable to obtain his medications because of the cost. This young man has a concerning history, as such I do have a high concern for developing diabetic ketoacidosis. Current plan is for this patient to undergo broad workup including venous blood gas, CMP CBC lipase and urinalysis. Patient elevated blood glucose of 744, has an anion gap of 24 and undetectable CO2 he is in diabetic ketoacidosis at this time with ketones in his urine. We will initiate an insulin infusion via the insulin protocol infusion for DKA. We will administer copious IV fluids, will administer fentanyl for his pancreatitis and chronic pain. His lipase is elevated at 3000 currently. Have contacted the hospitalist for the evaluation and admission of this patient , currently has a single 22-gauge IV which is near his thumb, because of his poor access we did discuss potential further attempts at IVs or the benefits of a large central venous catheter, the patient prefers to proceed with central venous catheter as he is "tired of being stuck". Because of this I will plan to place central line. Placed right-sided internal jugular central venous catheter, will obtain chest x -ray. Have contacted on-call hospitalist who agrees to admit this patient to the intensive care unit. Currently he is hemodynamically stable and overall relatively well-appearing given his state. We will plan for every 2 chemistry. Do not believe that he needs bicarb at this time, do not believe that he requires any antibiotics at this time. - Vital Signs Vital signs: Temp Pulse Resp BP Pulse Ox 97.5 F 98 16 113/61 100 01/12/18 16:46 01/12/18 16:46 01/12/18 16:46 01/12/18 16:46 01/12/18 16:46 - Laboratory Result Diagrams: 01/12/18 14:50 01/12/18 14:50 Laboratory results interpreted by me: 01/12/18 01/12/18 01/12/18 14:13 14:50 14:50 RBC 4.28 L Hgb 10.7 L Hct 35.8 L MCH 25.1 L MCHC 30.0 L RDW 21.7 H VBG pH VBG pCO2 VBG HCO3 Sodium 128.0 L Potassium 5.2 H Chloride 94 L Carbon Dioxide 10 L* Anion Gap 24 H BUN 32 H Creatinine 1.55 H Est GFR (Non-Af Amer) 51 L Glucose 744 H* Alkaline Phosphatase 166 H Lipase 5919.1 H Urine Glucose (UA) >=500 H Urine Ketones 20 H 01/12/18 16:50 RBC Hgb Hct MCH MCHC RDW VBG pH 7.12 L* VBG pCO2 23.5 L VBG HCO3 7.5 L Sodium Potassium Chloride Carbon Dioxide Anion Gap BUN Creatinine Est GFR (Non-Af Amer) Glucose Alkaline Phosphatase Lipase Urine Glucose (UA) Urine Ketones Procedures - Central Line Right Internal jugular Time completed: 17:05 Consent obtained: Yes Central line pre-insertion: Sterile PPE donned, Betadine prep applied, Chloraprep applied, Sterile drapes applied Central line lumen type: Triple Anesthetic type: 1% Lidocaine mL's of anesthesia: 8 Ultrasound guided: Yes CM at insertion site: 15 Line secured with sutures: Yes Central line post-insertion: Blood return from lumens, Biopatch applied, Sutured , Sterile dressing applied, Position confirmed w/ CXR Number of attempts: 1 Complications: No Critical Care Note - Critical Care Note Total time excluding time spent on procedures (mins): 35 Discharge - Discharge Clinical Impression: Dehydration, Noncompliance Uncontrolled diabetes mellitus Qualifiers: Diabetes mellitus type: type 1 Glycemic state: with hyperglycemia Qualified Code(s): E10.65 - Type 1 diabetes mellitus with hyperglycemia Abdominal pain Qualifiers: Abdominal location: unspecified location Qualified Code(s): R10.9 - Unspecified abdominal pain Pancreatitis, acute Qualifiers: Pancreatitis type: unspecified pancreatitis type Acute pancreatitis complication: unspecified Qualified Code(s): K85.90 - Acute pancreatitis without necrosis or infection, unspecified Diabetic ketoacidosis associated with type 1 diabetes mellitus Qualifiers: Diabetes mellitus complication detail: without coma Qualified Code(s): E10.10 - Type 1 diabetes mellitus with ketoacidosis without coma Condition: Serious Disposition: ADMITTED INPATIENT Admitting Provider: Hospitalist Unit Admitted: ICU
[2018-01-12 17:00] LABS: VENOUS BLOOD BASE EXCESS -20.2 mmol/L; VENOUS BLOOD HCO3 7.5 mmol/L (20-32); VENOUS BLOOD PCO2 23.5 mmHg (35-63)
[2018-01-12 17:16] LABS: VENOUS BLOOD PH 7.12 (7.30-7.42)
[2018-01-12] MEDS ORDERED: NORMAL SALINE 1000 ML 1,000 ML IV PRN ×2 (17:28→20:51)
[2018-01-12] MEDS ORDERED: DEXTROSE 50%-WATER 25 GM/50 ML DISP.SYRIN IV PRN ×4 (17:33→17:42)
[2018-01-12] MEDS ORDERED: DEXTROSE 40% GEL 15 GM TUBE PO PRN ×4 (17:33→17:42)
[2018-01-12] MEDS ORDERED: GLUCAGON,HUMAN RECOMB 1 MG INJ IM PRN ×2 (17:33→17:42)
[2018-01-12] MEDS ORDERED: NORMAL SALINE 100 ML with INSULIN REGULAR, HUMAN 100 UNIT IV PRN ×2 (17:33)
[2018-01-12] MEDS ORDERED: HYDROMORPHONE HCL INJ/PF 2 MG/ML AMPULE IV PRN (17:38)
--- NOTE | 2018-01-12 18:03 | PDOC H&P ---
History of Present Illness Patient complains of: Nausea, vomitings History of Present Illness: CHESTER MCKEON is a 37 year old male with history of type 1 diabetes mellitus, pancreatitis, anxiety, depression, lipidemia, hypertension, GERD The emergency room with complaints of nausea vomiting abdominal pain and chest pains for the last 3 days. According to him he ran out of his insulin at home and because he cannot afford it the last time took his insulin is 4 days ago after that he started having nausea vomiting abdominal pains in association with the diarrhea he says he unable to keep anything down. Patient complains of chills denies any fever is also given the history of abdominal pain of 8 x 10. He said he was admitted before with a similar problems at this at that time he ran out of insulin and came to the ER with high blood sugars. Past Medical History Cardiac Medical History: Reports: Hyperlipidema, Hypertension - Taken off medication for same. Denies: Atrial Fibrillation, Congestive Heart Failure, Coronary Artery Disease, Myocardial Infarction, Pulmonary Embolism Pulmonary Medical History: Denies: Asthma, Chronic Obstructive Pulmonary Disease (COPD), Sleep Apnea Neurological Medical History: Denies: Migraine, Seizures Endocrine Medical History: Reports: Diabetes Mellitus Type 1, Diabetes Mellitus Type 2 Denies: Hyperthyroidism, Hypothyroidism Renal/ Medical History: Denies: End Stage Renal Disease GI Medical History: Reports: Gastroesophageal Reflux Disease Denies: Cirrhosis, Hepatitis Musculoskeltal Medical History: Denies: Arthritis, Fibromyalgia Skin Medical History: Denies: Eczema, Psoriasis Psychiatric Medical History: Reports: Depression Hematology: Reports: Anemia - Chronic illnesses Denies: Sickle Cell Disease, Bleeding Tendencies Infectious Medical History: Reports: Methicillin-Resistant Staph Aureus Denies: Clostridium Difficile Past Surgical History Past Surgical History: Reports: Orthopedic Surgery - back, left long finger PIP disarticulation, now s/p right hand I and D Denies: Appendectomy, Cholecystectomy, Tonsillectomy Social History Smoking Status: Never Smoker Frequency of Alcohol Use: None Hx Recreational Drug Use: Yes Drugs: Cocaine, Marijuana Hx Prescription Drug Abuse: No Family History Family History: DM, Hyperlipidemia, Hypertension Parental Family History Reviewed: Yes Children Family History Reviewed: Yes Sibling(s) Family History Reviewed.: Yes Medication/Allergy Home Medications: Lipase/Protease/Amylase [Pancrease EC Capsule] 1 each PO AC 01/05/18 Insulin Glargine,Hum.rec.anlog [Lantus Insulin 100 Unit/1 ml 10 ml] 40 unit SUBCUT Q12 #0 01/06/18 Insulin Lispro [Humalog Insulin (Lispro) 100 unit/mL] 15 units SQ PC #0 Allergies/Adverse Reactions: ondansetron [From Zofran (as hydrochloride)] Allergy (Verified 01/05/18 07:34) Review of Systems Constitutional: ABSENT: fever(s) Eyes: ABSENT: visual disturbances Ears: ABSENT: hearing changes Nose, Mouth, and Throat: ABSENT: sore throat Cardiovascular: ABSENT: dyspnea on exertion, orthropnea, palpitations Respiratory: ABSENT: dyspnea, sputum Gastrointestinal: PRESENT: abdominal pain, diarrhea, nausea, vomiting Neurological: ABSENT: abnormal gait, abnormal speech, confusion, dizziness, focal weakness, syncope Psychiatric: ABSENT: anxiety, depression, homidical ideation, suicidal ideation Physical Exam Vital Signs: Temp Pulse Resp BP Pulse Ox 97.5 F 98 16 113/61 100 01/12/18 16:46 01/12/18 16:46 01/12/18 16:46 01/12/18 16:46 01/12/18 16:46 Intake & Output 01/11/18 01/12/18 01/13/18 06:59 06:59 06:59 Weight 68.1 kg General appearance: PRESENT: severe distress Head exam: PRESENT: atraumatic Eye exam: PRESENT: PERRLA Neck exam: ABSENT: carotid bruit, JVD, lymphadenopathy, thyromegaly Respiratory exam: PRESENT: clear to auscultation alfonso. ABSENT: rales, rhonchi, wheezes Cardiovascular exam: PRESENT: RRR. ABSENT: diastolic murmur, rubs, systolic murmur GI/Abdominal exam: PRESENT: hypoactive bowel sounds, other - Complains of severe pain on gentle palpation, voluntary guarding and rigidity. Neurological exam: PRESENT: alert, awake, oriented to person, oriented to place , oriented to time, oriented to situation, CN II-XII grossly intact. ABSENT: motor sensory deficit Psychiatric exam: PRESENT: appropriate affect, normal mood. ABSENT: homicidal ideation, suicidal ideation Results Laboratory Results: 01/12/18 14:50 01/12/18 14:50 01/12/18 01/12/18 01/12/18 14:13 14:50 14:50 WBC 6.5 RBC 4.28 L Hgb 10.7 L Hct 35.8 L MCV 84 D MCH 25.1 L MCHC 30.0 L RDW 21.7 H Plt Count 271 Seg Neutrophils % 74.0 Lymphocytes % 16.2 Monocytes % 8.5 Eosinophils % 0.9 Basophils % 0.4 Absolute Neutrophils 4.8 Absolute Lymphocytes 1.1 Absolute Monocytes 0.6 Absolute Eosinophils 0.1 Absolute Basophils 0.0 VBG pH VBG pCO2 VBG HCO3 VBG Base Excess Sodium 128.0 L Potassium 5.2 H Chloride 94 L Carbon Dioxide 10 L* Anion Gap 24 H BUN 32 H Creatinine 1.55 H Est GFR ( Amer) > 60 Est GFR (Non-Af Amer) 51 L Glucose 744 H* Lactic Acid Calcium 8.9 Total Bilirubin 0.5 AST 21 ALT 37 Alkaline Phosphatase 166 H Total Protein 6.9 Albumin 3.6 Lipase 5919.1 H Urine Color STRAW Urine Appearance CLEAR Urine pH 5.0 Ur Specific [place] 1.024 Urine Protein NEGATIVE Urine Glucose (UA) >=500 H Urine Ketones 20 H Urine Blood NEGATIVE Urine Nitrite NEGATIVE Ur Leukocyte Esterase NEGATIVE Urine WBC (Auto) 1 Urine RBC (Auto) 0 01/12/18 01/12/18 14:50 16:50 WBC RBC Hgb Hct MCV MCH MCHC RDW Plt Count Seg Neutrophils % Lymphocytes % Monocytes % Eosinophils % Basophils % Absolute Neutrophils Absolute Lymphocytes Absolute Monocytes Absolute Eosinophils Absolute Basophils VBG pH 7.12 L* VBG pCO2 23.5 L VBG HCO3 7.5 L VBG Base Excess -20.2 Sodium Potassium Chloride Carbon Dioxide Anion Gap BUN Creatinine Est GFR ( Amer) Est GFR (Non-Af Amer) Glucose Lactic Acid 1.1 Calcium Total Bilirubin AST ALT Alkaline Phosphatase Total Protein Albumin Lipase Urine Color Urine Appearance Urine pH Ur Specific [place] Urine Protein Urine Glucose (UA) Urine Ketones Urine Blood Urine Nitrite Ur Leukocyte Esterase Urine WBC (Auto) Urine RBC (Auto) Assessment & Plan - Diagnosis (1) Diabetic ketoacidosis associated with type 1 diabetes mellitus Qualifiers: Diabetes mellitus complication detail: without coma Qualified Code(s): E10.10 - Type 1 diabetes mellitus with ketoacidosis without coma Is this a current diagnosis for this admission?: Yes Plan: 01/12/2018-this patient with type 1 diabetes mellitus came in with blood sugars of 700+. The ran out of the insulin, dose was 4 days ago. In the ER he was started on insulin drip. I am going to put the patient in the ICU as inpatient kept him n.p.o. insulin drip with regular insulin 5 units/h to titrate the drip as per the blood sugar readings. We are planning to do ABGs and daily basis and chemistry every 6 hours. He was started on IV fluids normal saline at 125 cc/h. We are going to check Accu-Cheks q. one hour. Dietary consult was requested. Insulin drip is going to be adjusted as per the protocol. (2) Pancreatitis, acute Qualifiers: Pancreatitis type: unspecified pancreatitis type Acute pancreatitis complication: unspecified Qualified Code(s): K85.90 - Acute pancreatitis without necrosis or infection, unspecified Is this a current diagnosis for this admission?: Yes Plan: Patient complaining of severe abdominal pain 8 x 10 on gentle palpation. Lipase is 6000. We are going to do the CT abdomen pelvis with p.o. and IV contrast. He was started on IV Dilaudid 2 mg IV every 4 as needed for pain. He is going to be n.p.o. Daily amylase lipase levels were requested. he was started on IV fluids normal saline at 150 cc/h. (3) Dehydration Is this a current diagnosis for this admission?: Yes Plan: 01/12/2018-[place] [address] patient is hypotensive started on IV fluids. (4) Acute renal failure Is this a current diagnosis for this admission?: Yes Plan: Patient's admission creatinine is 1.55. Baseline creatinine is around 2.8-1. Acute renal failure may be secondary to persistent nausea and vomitings secondary to uncontrolled diabetes. - Time Time Spent: 30 to 50 Minutes Critical Time spent with patient: 15-24 minutes Medications reviewed and adjusted accordingly: Yes Anticipated discharge: Home
--- NOTE | 2018-01-12 18:05 | RADIOLOGY REPORT (SQ) ---
EXAM DESCRIPTION: CHEST SINGLE VIEW COMPLETED DATE/TIME: 01/12/2018 5:53 pm REASON FOR STUDY: PAIN COMPARISON: 01/05/2018 EXAM PARAMETERS: NUMBER OF VIEWS: One view. TECHNIQUE: Single frontal radiographic view of the chest acquired. RADIATION DOSE: NA LIMITATIONS: None. FINDINGS: LUNGS AND PLEURA: No opacities, masses or pneumothorax. No pleural effusion. MEDIASTINUM AND HILAR STRUCTURES: No masses. Contour normal. HEART AND VASCULAR STRUCTURES: Heart normal in size. Normal vasculature. BONES: No acute findings. HARDWARE: None in the chest. OTHER: No other significant finding. IMPRESSION: NO ACUTE RADIOGRAPHIC FINDING IN THE CHEST. TECHNICAL DOCUMENTATION: JOB ID: [id number] [employer]- All Rights Reserved Reading location - IP/workstation name: [email or web address]
[2018-01-12] MEDS: METOCLOPRAMIDE HCL INJ/PF 10 MG/2 ML SDV IV SCH ×2 (18:16→22:06)
[2018-01-12] MEDS: NORMAL SALINE 100 ML with INSULIN REGULAR, HUMAN 100 UNIT IV PRN ×2 (18:33)
[2018-01-12 19:05] LABS: ALANINE AMINOTRANSFERASE 32 U/L (21-72); ALBUMIN 3.5 g/dL (3.5-5.0); ALKALINE PHOSPHATASE 161 U/L (38-126); ASPARTATE AMINO TRANSFERASE 20 U/L (17-59); BILIRUBIN,DIRECT 0.4 mg/dL (0.0-0.4); BILIRUBIN,TOTAL 0.4 mg/dL (0.2-1.3); BLOOD UREA NITROGEN 34 mg/dL (7-20); CALCIUM 8.8 mg/dL (8.4-10.2); POTASSIUM 5.6 mmol/L (3.6-5.0); TOTAL PROTEIN 6.8 g/dL (6.3-8.2)
[2018-01-12 19:10] LABS: CHLORIDE 95 mmol/L (98-107); SODIUM 129.6 mmol/L (137-145)
--- NOTE | 2018-01-12 19:28 | RADIOLOGY REPORT (SQ) ---
EXAM DESCRIPTION: CHEST SINGLE VIEW COMPLETED DATE/TIME: 01/12/2018 7:19 pm REASON FOR STUDY: central line COMPARISON: 01/12/2018 1751 hours EXAM PARAMETERS: NUMBER OF VIEWS: One view. TECHNIQUE: Single frontal radiographic view of the chest acquired. RADIATION DOSE: NA LIMITATIONS: None. FINDINGS: LUNGS AND PLEURA: No opacities, masses or pneumothorax. No pleural effusion. MEDIASTINUM AND HILAR STRUCTURES: No masses. Contour normal. HEART AND VASCULAR STRUCTURES: Heart normal in size. Normal vasculature. BONES: No acute findings. HARDWARE: Right internal jugular catheter has its tip in the superior vena cava. OTHER: No other significant finding. IMPRESSION: Right internal jugular catheter in position as described. TECHNICAL DOCUMENTATION: JOB ID: [id number] [employer]- All Rights Reserved Reading location - IP/workstation name: [email or web address]
[2018-01-12 19:47] LABS: ANION GAP 28 (5-19)
[2018-01-12 19:48] LABS: GLUCOSE 711 mg/dL (75-110)
[2018-01-12 19:49] LABS: CARBON DIOXIDE 7 mmol/L (22-30)
--- NOTE | 2018-01-12 20:14 | RADIOLOGY REPORT (SQ) ---
EXAM DESCRIPTION: CT ABD/PELVIS WITH IV ORAL COMPLETED DATE/TIME: 01/12/2018 7:56 pm REASON FOR STUDY: ABD PAIN COMPARISON: 05/24/2017 TECHNIQUE: CT scan of the abdomen and pelvis performed using helical scanning technique with dynamic intravenous contrast injection. Oral contrast. Images reviewed with lung, soft tissue, and bone win dows. Reconstructed coronal and sagittal MPR images reviewed. Delayed images for evaluation of the ur inary system also acquired. All images stored on PACS. All CT scanners at this facility use dose modulation, iterative reconstruction, and/or weight based d osing when appropriate to reduce radiation dose to as low as reasonably achievable (ALARA). [facility]: Dose Right [facility]: CareDose [facility]: Dose Right [facility]: Teradose 4D [facility]: [employer] CONTRAST TYPE AND DOSE: contrast/concentration: Isovue 350.00 mg/ml; Total Contrast Delivered: 74.0 ml; Total Saline Delivered: 66.0 ml RENAL FUNCTION: BUN 32 creatinine 1.55 RADIATION DOSE: CT Rad equipment meets quality standard of care and radiation dose reduction techniq ues were employed. CTDIvol: 5.6 - 7.4 mGy. DLP: 654 mGy-cm.. LIMITATIONS: None. FINDINGS: LOWER CHEST: No significant findings. No nodules or infiltrates. LIVER: Normal size. No masses. No dilated ducts. SPLEEN: Normal size. No focal lesions. PANCREAS: There are small calcifications in the pancreas suggesting chronic pancreatitis. No acute i nflammatory changes are appreciated. GALLBLADDER: No identified stones by CT criteria. No inflammatory changes to suggest cholecystitis. ADRENAL GLANDS: No significant masses or asymmetry. RIGHT KIDNEY AND URETER: No solid masses. No significant calcifications. No hydronephrosis or hyd roureter. LEFT KIDNEY AND URETER: No solid masses. There is a 2 mm nonobstructing lower calyceal calculus. No hydronephrosis or hydroureter. AORTA AND VESSELS: No aneurysm. No dissection. Renal arteries, SMA, celiac without stenosis. RETROPERITONEUM: No retroperitoneal adenopathy, hemorrhage or masses. BOWEL AND PERITONEAL CAVITY: No masses or inflammatory changes. No free fluid or peritoneal masses. APPENDIX: Not identified. PELVIS: There is marked distention of the urinary bladder. No pelvic masses are seen. ABDOMINAL WALL: No masses. No hernias. BONES: There is chronic grade 4 anterolisthesis of L5 on S1. Stable. OTHER: No other significant finding. IMPRESSION: 1. Chronic pancreatitis with no acute inflammatory changes. 2. Nonobstructing left lower calyceal calculus. 3. Marked distention of the urinary bladder. 4. Osseous findings as described. TECHNICAL DOCUMENTATION: JOB ID: [id number] Quality ID # [id number]: Final reports with documentation of one or more dose reduction techniques (e.g., Au tomated exposure control, adjustment of the mA and/or kV according to patient size, use of iterative reconstruction technique) 2010 [employer]- All Rights Reserved Reading location - IP/workstation name: [email or web address]
[2018-01-12 21:05] LABS: ARTERIAL BLOOD BASE EXCESS -19.5 mmol/L; ARTERIAL BLOOD FIO2 ROOM AIR; ARTERIAL BLOOD H2CO3 0.76 mmol/L (1.05-1.35); ARTERIAL BLOOD HCO3 8.2 mmol/L (20-24); ARTERIAL BLOOD O2 SATURATION 97.2 % (94-98); ARTERIAL BLOOD PCO2 25.4 mmHg (35-45)
[2018-01-12 21:07] LABS: ARTERIAL BLOOD PH 7.13 (7.35-7.45)
[2018-01-12 21:34] LABS: BLOOD UREA NITROGEN 33 mg/dL (7-20); CALCIUM 8.7 mg/dL (8.4-10.2); POTASSIUM 5.2 mmol/L (3.6-5.0)
[2018-01-12 21:39] LABS: CHLORIDE 96 mmol/L (98-107); SODIUM 130.9 mmol/L (137-145)
[2018-01-12 21:47] LABS: CARBON DIOXIDE 8 mmol/L (22-30); GLUCOSE 579 mg/dL (75-110)
[2018-01-12 22:01] LABS: ANION GAP 27 (5-19)
[2018-01-12] MEDS: HYDROMORPHONE HCL INJ/PF 2 MG/ML AMPULE SUBCUT PRN (22:05)
[2018-01-12] MEDS: FAMOTIDINE INJ/PF 20 MG/2 ML SDV IV SCH (22:07)
[2018-01-13 00:25] LABS: BLOOD UREA NITROGEN 32 mg/dL (7-20); CALCIUM 8.4 mg/dL (8.4-10.2); POTASSIUM 4.5 mmol/L (3.6-5.0)
[2018-01-13 00:31] LABS: CARBON DIOXIDE 12 mmol/L (22-30); CHLORIDE 100 mmol/L (98-107); SODIUM 133.9 mmol/L (137-145)
[2018-01-13 00:35] LABS: ANION GAP 22 (5-19)
[2018-01-13] MEDS: METOCLOPRAMIDE HCL INJ/PF 10 MG/2 ML SDV IV SCH (01:19)
[2018-01-13 01:33] LABS: GLUCOSE 397 mg/dL (75-110)
[2018-01-13 01:57] LABS: ANION GAP 17 (5-19); BLOOD UREA NITROGEN 32 mg/dL (7-20); CALCIUM 8.3 mg/dL (8.4-10.2); CARBON DIOXIDE 16 mmol/L (22-30); CHLORIDE 104 mmol/L (98-107); GLUCOSE 249 mg/dL (75-110); POTASSIUM 4.3 mmol/L (3.6-5.0); SODIUM 136.7 mmol/L (137-145)
[2018-01-13] MEDS: HYDROMORPHONE HCL INJ/PF 2 MG/ML AMPULE SUBCUT PRN (02:09)
[2018-01-13] MEDS: POTASSI CL 20 MEQ/50 ML RIDER 20 MEQ/50 ML RTUPB IV SCH ×2 (02:11→04:58)
[2018-01-13 03:50] LABS: ANION GAP 12 (5-19); BLOOD UREA NITROGEN 30 mg/dL (7-20); CARBON DIOXIDE 17 mmol/L (22-30); CHLORIDE 108 mmol/L (98-107); GLUCOSE 150 mg/dL (75-110); SODIUM 137.2 mmol/L (137-145)
[2018-01-13] MEDS: POTASSI CL 20 MEQ/D5-1/2NS 1L 1,000 ML IV PRN ×2 (04:01→08:38)
[2018-01-13 06:03] LABS: PROTHROMBIN TIME 11.5 SEC (11.4-15.4)
[2018-01-13 06:23] LABS: ALANINE AMINOTRANSFERASE 30 U/L (21-72); ALBUMIN 2.9 g/dL (3.5-5.0); ALKALINE PHOSPHATASE 129 U/L (38-126); AMYLASE 364 U/L (30-110); ANION GAP 10 (5-19); ASPARTATE AMINO TRANSFERASE 17 U/L (17-59); BILIRUBIN,DIRECT 0.2 mg/dL (0.0-0.4); BILIRUBIN,TOTAL 0.2 mg/dL (0.2-1.3); BLOOD UREA NITROGEN 29 mg/dL (7-20); CARBON DIOXIDE 20 mmol/L (22-30); CHLORIDE 107 mmol/L (98-107); CHOLESTEROL 132.34 mg/dL (0-200); GLUCOSE 163 mg/dL (75-110); POTASSIUM 4.4 mmol/L (3.6-5.0); SODIUM 136.9 mmol/L (137-145); TOTAL PROTEIN 5.9 g/dL (6.3-8.2); TRIGLYCERIDES 89 mg/dL (<150)
[2018-01-13 06:33] LABS: DIRECT LDL 83 mg/dL (<100)
[2018-01-13 07:17] LABS: LIPASE 4358.3 U/L (23-300)
[2018-01-13 07:31] LABS: ABSOLUTE BASOPHILS # (AUTO) 0.1 10^3/uL (0.0-0.2); ABSOLUTE EOSINOPHILS # (AUTO) 0.3 10^3/uL (0.0-0.6); ABSOLUTE LYMPHOCYTES (AUTO) 1.1 10^3/uL (0.5-4.7); ABSOLUTE NEUT (AUTO) 4.5 10^3/uL (1.7-8.2); BASOPHILS % (AUTO) 1.3 % (0-2); EOSINOPHILS % (AUTO) 4.5 % (0-6); HEMATOCRIT 30.3 % (37.9-51.0); HEMOGLOBIN 9.8 g/dL (13.5-17.0); MEAN CORPUSCULAR HEMOGLOBIN 25.4 pg (27.0-33.4); MEAN CORPUSCULAR HGB CONC 32.5 g/dL (32.0-36.0); MONOCYTES % (AUTO) 14.1 % (3-13); PLATELET COUNT 256 10^3/uL (150-450); RED BLOOD COUNT 3.87 10^6/uL (4.35-5.55); RED CELL DISTRIBUTION WIDTH 21.7 % (11.5-14.0); SEGMENTED NEUTROPHILS % (AUTO) 64.1 % (42-78); TOTAL CELLS COUNTED % (AUTO) 100 %; WHITE BLOOD COUNT 7.1 10^3/uL (4.0-10.5)
[2018-01-13 07:40] LABS: MEAN CORPUSCULAR VOLUME 78 fl (80-97)
[2018-01-13] MEDS ORDERED: HYDROMORPHONE HCL INJ/PF 2 MG/ML AMPULE IV PRN (08:27)
[2018-01-13] MEDS ORDERED: HYDROMORPHONE HCL INJ/PF 2 MG/ML AMPULE ONE (08:30)
[2018-01-13] MEDS: NORMAL SALINE 100 ML with INSULIN REGULAR, HUMAN 100 UNIT IV PRN ×2 (09:11)
--- NOTE | 2018-01-13 09:33 | EKG REPORT ---
SEVERITY:- ABNORMAL ECG - SINUS RHYTHM ST ELEVATION SUGGESTS PERICARDITIS BORDERLINE PROLONGED QT INTERVAL : Confirmed by: Ruchi King 13-Jan-2018 09:32:15
[2018-01-13] MEDS: FAMOTIDINE INJ/PF 20 MG/2 ML SDV IV SCH ×2 (10:21→22:54)
[2018-01-13] MEDS: ENOXAPARIN SODIUM INJ 40 MG/0.4 ML DISP.SYRIN SUBCUT SCH (10:22)
[2018-01-13 11:15] LABS: ANION GAP 7 (5-19); BLOOD UREA NITROGEN 25 mg/dL (7-20); CALCIUM 7.6 mg/dL (8.4-10.2); CARBON DIOXIDE 19 mmol/L (22-30); CHLORIDE 111 mmol/L (98-107); GLUCOSE 104 mg/dL (75-110); POTASSIUM 3.9 mmol/L (3.6-5.0); SODIUM 137.2 mmol/L (137-145)
[2018-01-13] MEDS: NORMAL SALINE 1000 ML 1,000 ML IV PRN ×2 (14:05→21:22)
[2018-01-13] MEDS ORDERED: DEXTROSE 50%-WATER 25 GM/50 ML DISP.SYRIN IV ONE (14:25)
--- NOTE | 2018-01-13 15:27 | PDOC PROGRESS REPORT ---
Subjective Progress Note for:: 01/13/18 Subjective:: The patient is a 37-year-old male, well-known to our service, with a history of insulin dependent diabetes mellitus, chronic pancreatitis, depression anxiety, hypertension, hyperlipidemia, GERD, substance abuse, and noncompliance who was admitted 01/12/18 for DKA. Patient was seen on morning rounds. He was found resting in bed comfortably on room air. He tells me that he continues to have epigastric abdominal pain radiating to his back. He endorses slight nausea but denies emesis. He is requesting ice chips, but understands that he is not yet ready to begin a clear liquid diet. The patient reports that he entered DKA due to running out of his insulin. He states that at his last discharge, he was not provided insulin at discharge and he could not afford to fill his prescriptions. Patient states that he is now established with the [facility] in his first appointment was to be today. He states that he believes he has been approved for medication assistance through the [facility]. He denies fever, chills, chest pain, palpitations, dyspnea, orthopnea; does endorse abdominal discomfort and nausea without emesis or diarrhea. He has no new questions or concerns at this time. No concerns per nursing. Reason For Visit: DIABETIC KETOACIDOSIS Physical Exam Vital Signs: Temp Pulse Resp BP Pulse Ox 97.4 F 92 12 109/62 99 01/13/18 12:06 01/13/18 14:00 01/13/18 12:06 01/13/18 12:06 01/13/18 12:06 Intake & Output 01/12/18 01/13/18 01/14/18 06:59 06:59 06:59 Intake Total 1122 2024 Output Total 500 Balance 622 202 Weight 70 kg General appearance: PRESENT: no acute distress, well-developed, well-nourished Head exam: PRESENT: atraumatic, normocephalic Eye exam: PRESENT: conjunctiva pink, EOMI, PERRLA. ABSENT: scleral icterus Ear exam: PRESENT: normal external ear exam Mouth exam: PRESENT: moist, tongue midline Neck exam: ABSENT: carotid bruit, JVD, lymphadenopathy, thyromegaly Respiratory exam: PRESENT: clear to auscultation alfonso, symmetrical, unlabored. ABSENT: rales, rhonchi, wheezes Cardiovascular exam: PRESENT: RRR. ABSENT: diastolic murmur, rubs, systolic murmur Pulses: PRESENT: normal dorsalis pedis pul Vascular exam: PRESENT: normal capillary refill GI/Abdominal exam: PRESENT: normal bowel sounds, soft, tenderness. ABSENT: distended, guarding, mass, organolmegaly, rebound Rectal exam: PRESENT: deferred Extremities exam: PRESENT: full ROM. ABSENT: calf tenderness, clubbing, pedal edema Neurological exam: PRESENT: alert, awake, oriented to person, oriented to place , oriented to time, oriented to situation, CN II-XII grossly intact. ABSENT: motor sensory deficit Psychiatric exam: PRESENT: appropriate affect, normal mood. ABSENT: homicidal ideation, suicidal ideation Skin exam: PRESENT: dry, intact, warm. ABSENT: cyanosis, rash Results Laboratory Results: 01/13/18 07:00 01/13/18 10:30 01/12/18 01/12/18 01/12/18 18:30 20:43 21:05 WBC RBC Hgb Hct MCV MCH MCHC RDW Plt Count Seg Neutrophils % Lymphocytes % Monocytes % Eosinophils % Basophils % Absolute Neutrophils Absolute Lymphocytes Absolute Monocytes Absolute Eosinophils Absolute Basophils Carbonic Acid 0.76 L HCO3/H2CO3 Ratio 10:1 ABG pH 7.13 L* ABG pCO2 25.4 L ABG pO2 121.0 H ABG HCO3 8.2 L ABG O2 Saturation 97.2 ABG Base Excess -19.5 FiO2 ROOM AIR Sodium 129.6 L 130.9 L Potassium 5.6 H 5.2 H Chloride 95 L 96 L Carbon Dioxide 7 L* 8 L* Anion Gap 28 H 27 H BUN 34 H 33 H Creatinine 1.53 H 1.55 H Est GFR ( Amer) > 60 > 60 Est GFR (Non-Af Amer) 52 L 51 L Glucose 711 H* 579 H* Calcium 8.8 8.7 Magnesium Total Bilirubin 0.4 AST 20 ALT 32 Alkaline Phosphatase 161 H Total Protein 6.8 Albumin 3.5 Triglycerides Cholesterol LDL Cholesterol Direct VLDL Cholesterol HDL Cholesterol Amylase Lipase TSH 01/12/18 01/13/18 01/13/18 23:06 01:15 03:15 WBC RBC Hgb Hct MCV MCH MCHC RDW Plt Count Seg Neutrophils % Lymphocytes % Monocytes % Eosinophils % Basophils % Absolute Neutrophils Absolute Lymphocytes Absolute Monocytes Absolute Eosinophils Absolute Basophils Carbonic Acid HCO3/H2CO3 Ratio ABG pH ABG pCO2 ABG pO2 ABG HCO3 ABG O2 Saturation ABG Base Excess FiO2 Sodium 133.9 L 136.7 L 137.2 Potassium 4.5 4.3 5.0 Chloride 100 104 108 H Carbon Dioxide 12 L 16 L 17 L Anion Gap 22 H 17 12 BUN 32 H 32 H 30 H Creatinine 1.41 H 1.32 H 1.12 Est GFR ( Amer) > 60 > 60 > 60 Est GFR (Non-Af Amer) 57 L > 60 > 60 Glucose 397 H 249 H 150 H Calcium 8.4 8.3 L 8.0 L Magnesium Total Bilirubin AST ALT Alkaline Phosphatase Total Protein Albumin Triglycerides Cholesterol LDL Cholesterol Direct VLDL Cholesterol HDL Cholesterol Amylase Lipase TSH 01/13/18 01/13/18 01/13/18 05:40 05:40 05:40 WBC Cancelled RBC Cancelled Hgb Cancelled Hct Cancelled MCV Cancelled MCH Cancelled MCHC Cancelled RDW Cancelled Plt Count Cancelled Seg Neutrophils % Cancelled Lymphocytes % Cancelled Monocytes % Cancelled Eosinophils % Cancelled Basophils % Cancelled Absolute Neutrophils Cancelled Absolute Lymphocytes Cancelled Absolute Monocytes Cancelled Absolute Eosinophils Cancelled Absolute Basophils Cancelled Carbonic Acid HCO3/H2CO3 Ratio ABG pH ABG pCO2 ABG pO2 ABG HCO3 ABG O2 Saturation ABG Base Excess FiO2 Sodium 136.9 L Potassium 4.4 Chloride 107 Carbon Dioxide 20 L Anion Gap 10 BUN 29 H Creatinine 1.16 Est GFR ( Amer) > 60 Est GFR (Non-Af Amer) > 60 Glucose 163 H Calcium 8.0 L Magnesium 1.8 Total Bilirubin 0.2 AST 17 ALT 30 Alkaline Phosphatase 129 H Total Protein 5.9 L Albumin 2.9 L Triglycerides 89 Cholesterol 132.34 LDL Cholesterol Direct 83 VLDL Cholesterol 18.0 HDL Cholesterol 46 Amylase 364 H Lipase 4358.3 H TSH 0.73 01/13/18 01/13/18 07:00 10:30 WBC 7.1 RBC 3.87 L Hgb 9.8 L Hct 30.3 L MCV 78 L D MCH 25.4 L MCHC 32.5 RDW 21.7 H Plt Count 256 Seg Neutrophils % 64.1 Lymphocytes % 16.0 Monocytes % 14.1 H Eosinophils % 4.5 Basophils % 1.3 Absolute Neutrophils 4.5 Absolute Lymphocytes 1.1 Absolute Monocytes 1.0 Absolute Eosinophils 0.3 Absolute Basophils 0.1 Carbonic Acid HCO3/H2CO3 Ratio ABG pH ABG pCO2 ABG pO2 ABG HCO3 ABG O2 Saturation ABG Base Excess FiO2 Sodium 137.2 Potassium 3.9 Chloride 111 H Carbon Dioxide 19 L Anion Gap 7 BUN 25 H Creatinine 0.97 Est GFR ( Amer) > 60 Est GFR (Non-Af Amer) > 60 Glucose 104 Calcium 7.6 L Magnesium Total Bilirubin AST ALT Alkaline Phosphatase Total Protein Albumin Triglycerides Cholesterol LDL Cholesterol Direct VLDL Cholesterol HDL Cholesterol Amylase Lipase TSH Impressions: Abdomen/Pelvis CT 01/12/18 00:00 IMPRESSION: 1. Chronic pancreatitis with no acute inflammatory changes. 2. Nonobstructing left lower calyceal calculus. 3. Marked distention of the urinary bladder. 4. Osseous findings as described. Chest X-Ray 01/12/18 19:12 IMPRESSION: Right internal jugular catheter in position as described. Assessment & Plan - Diagnosis (1) Diabetic ketoacidosis associated with type 1 diabetes mellitus Qualifiers: Diabetes mellitus complication detail: without coma Qualified Code(s): E10.10 - Type 1 diabetes mellitus with ketoacidosis without coma Is this a current diagnosis for this admission?: Yes Plan: The patient has insulin-dependent diabetes mellitus who has had numerous admissions for DKA this year. Patient denies precipitating illness and reports that DKA occurred due to running out of insulin approximately 4 days ago. He has been admitted to [facility] on continuous cardiac telemetry. He is provided generous IV fluids. He was initially placed on an insulin drip; serial chemistries were monitored every 6 hours. The patient's anion gap is closed and his bicarb has improved to 19. This afternoon, the patient briefly became hypoglycemic with a blood sugar of 57. His insulin drip has been discontinued, he was provided 12.5 g IV dextrose, continued IV fluids and hourly Accu-Cheks. Once glucose is stabilized (greater than 70 x 2 hours), will provide subcutaneous Lantus 10 units and continue with daily long-acting insulin. Patient remains in n.p.o. status, with the exception of ice chips, due to acute on chronic pancreatitis. We will continue Accu-Cheks every 6 hours with Humalog for sliding scale coverage and hypoglycemia protocol in place. We will continue to monitor serial chemistries. The registered dietitian, senior hardware engineer, patient navigator, and corporate meeting planner have all been consulted. Due to the patient's persistent noncompliance, numerous admissions for DKA this year, and history of polysubstance abuse, mental health has been consulted to evaluate for underlying psychiatric disorder. (2) Acute on chronic pancreatitis Is this a current diagnosis for this admission?: Yes Plan: The patient endorses epigastric abdominal pain radiating to his back associated with nausea and vomiting. Lipase on admission was elevated to 5900; has decreased slightly to [address] of the abdomen and pelvis revealed chronic pancreatitis without acute inflammatory changes, and a nonobstructing left lower calyceal calculus, marked distention of the urinary bladder, and chronic grade 4 anterior listhesis of L5 on S1. Continue IV fluids. N.p.o. with the exception of ice chips. Antiemetics and judicious analgesics as needed. (3) Dehydration Is this a current diagnosis for this admission?: Yes Plan: Secondary to DKA and poor p.o. intake related to acute on chronic pancreatitis. He has been provided 3 L IV fluid boluses; will continue maintenance IV fluids until tolerating clears. (4) Acute kidney injury Is this a current diagnosis for this admission?: Yes Plan: Resolved; secondary to dehydration. Creatinine on admission was elevated to 1.55 with a baseline of 1.0; he has returned to baseline. Avoid nephrotoxic medications. Continue maintenance IV fluids until tolerating p.o. (5) Chronic anemia Is this a current diagnosis for this admission?: Yes Plan: Anemia of chronic disease. Patient was admitted with a hemoglobin of 10.7; this is trended down slightly to 9.8 with IV fluid resuscitation. He has a baseline hemoglobin of 9. No evidence of active bleeding at this time. The registered dietitian has been consulted. Will start multivitamin with iron supplementation once tolerating p.o. (6) Polysubstance abuse Is this a current diagnosis for this admission?: Yes Plan: UDS positive for cocaine. Mental health and discharge planning are consulted. (7) Tobacco abuse Is this a current diagnosis for this admission?: Yes Plan: Smoking cessation is encouraged. Nicotine replacement therapies are provided. - Time Time Spent with patient: 25-34 minutes Smoking Cessation Education: 3 to 10 minutes Medications reviewed and adjusted accordingly: Yes Anticipated discharge: Home Within: within 48 hours
[2018-01-13 15:33] LABS: ANION GAP 10 (5-19); BLOOD UREA NITROGEN 23 mg/dL (7-20); CALCIUM 8.1 mg/dL (8.4-10.2); CARBON DIOXIDE 18 mmol/L (22-30); CHLORIDE 110 mmol/L (98-107); GLUCOSE 86 mg/dL (75-110); POTASSIUM 4.1 mmol/L (3.6-5.0); SODIUM 137.9 mmol/L (137-145)
[2018-01-13] MEDS ORDERED: OXYCODONE-ACETAMINOPHEN 5-325 MG TABLET ONE (15:40)
[2018-01-13] MEDS ORDERED: OXYCODONE-ACETAMINOPHEN 5-325 MG TABLET PO PRN (15:43)
[2018-01-13] MEDS: INSULIN GLARGINE,HUM.REC.ANLOG 300 UNIT/3 ML INSULN.PEN SUBCUT SCH (17:36)
[2018-01-13 19:15] LABS: ANION GAP 13 (5-19); BLOOD UREA NITROGEN 22 mg/dL (7-20); CALCIUM 8.1 mg/dL (8.4-10.2); CARBON DIOXIDE 16 mmol/L (22-30); CHLORIDE 107 mmol/L (98-107); GLUCOSE 229 mg/dL (75-110); POTASSIUM 4.6 mmol/L (3.6-5.0); SODIUM 135.5 mmol/L (137-145)
[2018-01-13 21:39] LABS: ANION GAP 16 (5-19); BLOOD UREA NITROGEN 21 mg/dL (7-20); CALCIUM 8.3 mg/dL (8.4-10.2); CARBON DIOXIDE 16 mmol/L (22-30); CHLORIDE 105 mmol/L (98-107); GLUCOSE 260 mg/dL (75-110); POTASSIUM 4.9 mmol/L (3.6-5.0); SODIUM 137.2 mmol/L (137-145)
[2018-01-13] MEDS: INSULIN LISPRO 100 UNIT/ML 3 ML VIAL SUBCUT PRN (22:54)
[2018-01-14] MEDS: NORMAL SALINE 1000 ML 1,000 ML IV PRN ×3 (03:27→15:06)
[2018-01-14] MEDS: INSULIN LISPRO 100 UNIT/ML 3 ML VIAL SUBCUT PRN (03:36)
[2018-01-14 03:56] LABS: ABSOLUTE BASOPHILS # (AUTO) 0.1 10^3/uL (0.0-0.2); ABSOLUTE EOSINOPHILS # (AUTO) 0.2 10^3/uL (0.0-0.6); ABSOLUTE LYMPHOCYTES (AUTO) 1.1 10^3/uL (0.5-4.7); ABSOLUTE MONOCYTES (AUTO) 0.7 10^3/uL (0.1-1.4); ABSOLUTE NEUT (AUTO) 5.1 10^3/uL (1.7-8.2); BASOPHILS % (AUTO) 0.9 % (0-2); EOSINOPHILS % (AUTO) 2.6 % (0-6); HEMATOCRIT 28.3 % (37.9-51.0); LYMPHOCYTES % (AUTO) 15.2 % (13-45); MEAN CORPUSCULAR HEMOGLOBIN 25.3 pg (27.0-33.4); MEAN CORPUSCULAR VOLUME 79 fl (80-97); MONOCYTES % (AUTO) 9.4 % (3-13); PLATELET COUNT 245 10^3/uL (150-450); RED BLOOD COUNT 3.58 10^6/uL (4.35-5.55); RED CELL DISTRIBUTION WIDTH 22.1 % (11.5-14.0); SEGMENTED NEUTROPHILS % (AUTO) 71.9 % (42-78); TOTAL CELLS COUNTED % (AUTO) 100 %; WHITE BLOOD COUNT 7.1 10^3/uL (4.0-10.5)
[2018-01-14 04:12] LABS: ALANINE AMINOTRANSFERASE 34 U/L (21-72); ALBUMIN 2.6 g/dL (3.5-5.0); ALKALINE PHOSPHATASE 125 U/L (38-126); AMYLASE 927 U/L (30-110); ANION GAP 14 (5-19); ASPARTATE AMINO TRANSFERASE 16 U/L (17-59); BILIRUBIN,DIRECT 0.2 mg/dL (0.0-0.4); BILIRUBIN,TOTAL 0.2 mg/dL (0.2-1.3); BLOOD UREA NITROGEN 19 mg/dL (7-20); CALCIUM 8.2 mg/dL (8.4-10.2); CARBON DIOXIDE 15 mmol/L (22-30); CHLORIDE 109 mmol/L (98-107); GLUCOSE 250 mg/dL (75-110); POTASSIUM 4.7 mmol/L (3.6-5.0); TOTAL PROTEIN 5.5 g/dL (6.3-8.2)
[2018-01-14 04:33] LABS: LIPASE 13838.3 U/L (23-300)
[2018-01-14] MEDS: INSULIN GLARGINE,HUM.REC.ANLOG 300 UNIT/3 ML INSULN.PEN SUBCUT SCH (08:56)
[2018-01-14] MEDS: FAMOTIDINE INJ/PF 20 MG/2 ML SDV IV SCH ×2 (09:03→22:21)
[2018-01-14] MEDS: ENOXAPARIN SODIUM INJ 40 MG/0.4 ML DISP.SYRIN SUBCUT SCH (09:03)
[2018-01-14 09:21] LABS: ANION GAP 14 (5-19); BLOOD UREA NITROGEN 16 mg/dL (7-20); CALCIUM 7.9 mg/dL (8.4-10.2); CARBON DIOXIDE 15 mmol/L (22-30); CHLORIDE 109 mmol/L (98-107); GLUCOSE 238 mg/dL (75-110); POTASSIUM 4.2 mmol/L (3.6-5.0); SODIUM 137.5 mmol/L (137-145)
[2018-01-14] MEDS: INSULIN LISPRO 100 UNIT/ML 3 ML VIAL SUBCUT SCH ×3 (12:04→22:22)
[2018-01-14] MEDS ORDERED: IBUPROFEN 600 MG TABLET PO PRN (12:10)
[2018-01-14] MEDS: METOCLOPRAMIDE HCL 10 MG TABLET PO SCH (15:06)
[2018-01-14] MEDS: LIPASE/PROTEASE/AMYLASE 1 CAP CAPSULE.DR PO SCH (15:06)
[2018-01-14 15:44] LABS: ANION GAP 9 (5-19); BLOOD UREA NITROGEN 15 mg/dL (7-20); CALCIUM 7.8 mg/dL (8.4-10.2); CARBON DIOXIDE 19 mmol/L (22-30); CHLORIDE 109 mmol/L (98-107); GLUCOSE 339 mg/dL (75-110)
[2018-01-14] MEDS ORDERED: NORMAL SALINE 1000 ML 1,000 ML IV PRN (17:24)
--- NOTE | 2018-01-14 17:28 | PDOC PROGRESS REPORT ---
Subjective Progress Note for:: 01/14/18 Subjective:: The patient is a 37-year-old male, well-known to our service, with a history of insulin dependent diabetes mellitus, chronic pancreatitis, depression anxiety, hypertension, hyperlipidemia, GERD, substance abuse, and noncompliance who was admitted 01/12/18 for DKA. Patient was seen on morning rounds. He was found resting in bed comfortably on room air. He states that he is feeling slightly better and requests to have his diet advanced to clear liquids. He does report continued intermittent epigastric pain associated with nausea but no further episodes of emesis. He denies eating food overnight does not understand why this was reported to me. He further denies any recreational drug use since his time of admission. He does admit to chewing his Percocet as he feels that this is more effective at controlling his pain. He denies fever, chills, chest pain, palpitations, dyspnea, orthopnea; does endorse abdominal discomfort and nausea without emesis or diarrhea. He has no new questions or concerns at this time. Reason For Visit: DIABETIC KETOACIDOSIS Physical Exam Vital Signs: Temp Pulse Resp BP Pulse Ox 99.1 F 95 16 110/54 L 100 01/14/18 15:52 01/14/18 15:52 01/14/18 15:52 01/14/18 15:52 01/14/18 15:52 Intake & Output 01/13/18 01/14/18 01/15/18 06:59 06:59 06:59 Intake Total 1122 3935 2000 Output Total 500 100 Balance 622 3835 1999 Weight 70 kg 75.3 kg General appearance: PRESENT: no acute distress, well-developed, well-nourished Head exam: PRESENT: atraumatic, normocephalic Eye exam: PRESENT: conjunctiva pink, EOMI, PERRLA. ABSENT: scleral icterus Ear exam: PRESENT: normal external ear exam Mouth exam: PRESENT: moist, tongue midline Neck exam: ABSENT: carotid bruit, JVD, lymphadenopathy, thyromegaly Respiratory exam: PRESENT: clear to auscultation alfonso, symmetrical, unlabored. ABSENT: rales, rhonchi, wheezes Cardiovascular exam: PRESENT: RRR. ABSENT: diastolic murmur, rubs, systolic murmur Pulses: PRESENT: normal dorsalis pedis pul Vascular exam: PRESENT: normal capillary refill GI/Abdominal exam: PRESENT: normal bowel sounds, soft, tenderness. ABSENT: distended, guarding, mass, organolmegaly, rebound Rectal exam: PRESENT: deferred Extremities exam: PRESENT: full ROM. ABSENT: calf tenderness, clubbing, pedal edema Neurological exam: PRESENT: alert, awake, oriented to person, oriented to place , oriented to time, oriented to situation, CN II-XII grossly intact. ABSENT: motor sensory deficit Psychiatric exam: PRESENT: appropriate affect, normal mood. ABSENT: homicidal ideation, suicidal ideation Skin exam: PRESENT: dry, intact, warm. ABSENT: cyanosis, rash Results Laboratory Results: 01/14/18 03:25 01/14/18 14:55 01/13/18 01/13/18 01/14/18 18:45 20:55 03:25 WBC RBC Hgb Hct MCV MCH MCHC RDW Plt Count Seg Neutrophils % Lymphocytes % Monocytes % Eosinophils % Basophils % Absolute Neutrophils Absolute Lymphocytes Absolute Monocytes Absolute Eosinophils Absolute Basophils Sodium 135.5 L 137.2 Cancelled Potassium 4.6 4.9 Cancelled Chloride 107 105 Cancelled Carbon Dioxide 16 L 16 L Cancelled Anion Gap 13 16 Cancelled BUN 22 H 21 H Cancelled Creatinine 1.00 1.04 Cancelled Est GFR ( Amer) > 60 > 60 Cancelled Est GFR (Non-Af Amer) > 60 > 60 Cancelled Glucose 229 H 260 H Cancelled Calcium 8.1 L 8.3 L Cancelled Magnesium Total Bilirubin AST ALT Alkaline Phosphatase Total Protein Albumin Amylase Cancelled Lipase 01/14/18 01/14/18 01/14/18 03:25 03:25 08:30 WBC 7.1 RBC 3.58 L Hgb 9.0 L Hct 28.3 L MCV 79 L MCH 25.3 L MCHC 32.0 RDW 22.1 H Plt Count 245 Seg Neutrophils % 71.9 Lymphocytes % 15.2 Monocytes % 9.4 Eosinophils % 2.6 Basophils % 0.9 Absolute Neutrophils 5.1 Absolute Lymphocytes 1.1 Absolute Monocytes 0.7 Absolute Eosinophils 0.2 Absolute Basophils 0.1 Sodium 138.0 137.5 Potassium 4.7 4.2 Chloride 109 H 109 H Carbon Dioxide 15 L 15 L Anion Gap 14 14 BUN 19 16 Creatinine 1.11 0.93 Est GFR ( Amer) > 60 > 60 Est GFR (Non-Af Amer) > 60 > 60 Glucose 250 H 238 H Calcium 8.2 L 7.9 L Magnesium 1.7 Total Bilirubin 0.2 AST 16 L ALT 34 Alkaline Phosphatase 125 Total Protein 5.5 L Albumin 2.6 L Amylase 927 H Lipase 30712.3 H 01/14/18 14:55 WBC RBC Hgb Hct MCV MCH MCHC RDW Plt Count Seg Neutrophils % Lymphocytes % Monocytes % Eosinophils % Basophils % Absolute Neutrophils Absolute Lymphocytes Absolute Monocytes Absolute Eosinophils Absolute Basophils Sodium 137.0 Potassium 4.0 Chloride 109 H Carbon Dioxide 19 L Anion Gap 9 BUN 15 Creatinine 0.96 Est GFR ( Amer) > 60 Est GFR (Non-Af Amer) > 60 Glucose 339 H Calcium 7.8 L Magnesium Total Bilirubin AST ALT Alkaline Phosphatase Total Protein Albumin Amylase Lipase Impressions: Abdomen/Pelvis CT 01/12/18 00:00 IMPRESSION: 1. Chronic pancreatitis with no acute inflammatory changes. 2. Nonobstructing left lower calyceal calculus. 3. Marked distention of the urinary bladder. 4. Osseous findings as described. Chest X-Ray 01/12/18 19:12 IMPRESSION: Right internal jugular catheter in position as described. Assessment & Plan - Diagnosis (1) Diabetic ketoacidosis associated with type 1 diabetes mellitus Qualifiers: Diabetes mellitus complication detail: without coma Qualified Code(s): E10.10 - Type 1 diabetes mellitus with ketoacidosis without coma Is this a current diagnosis for this admission?: Yes Plan: Improved; gap is closed, bicarb up to 19. He has been admitted to [facility] on continuous cardiac telemetry. He is provided generous IV fluids. He was initially placed on an insulin drip; and transition to subcutaneous insulin. Advance to a clear consistent carb diet. Increase Lantus to 16 units nightly (previously on 25 units twice daily) We will continue Accu-Cheks every 6 hours with Humalog for sliding scale coverage and hypoglycemia protocol in place. We will continue to monitor serial chemistries. The registered dietitian, repairer art objects, patient navigator, and convention planner have all been consulted. Due to the patient's persistent noncompliance, numerous admissions for DKA this year, and history of polysubstance abuse, mental health has been consulted to evaluate for underlying psychiatric disorder. (2) Acute on chronic pancreatitis Is this a current diagnosis for this admission?: Yes Plan: Lipase is further elevated; 13,800. Amylase elevated 9027. The patient endorses epigastric abdominal pain radiating to his back associated with nausea ; however, he is requesting to advance his diet. CT of the abdomen and pelvis revealed chronic pancreatitis without acute inflammatory changes, and a nonobstructing left lower calyceal calculus, marked distention of the urinary bladder, and chronic grade 4 anterior listhesis of L5 on S1. Continue IV fluids. Clear liquid diet. Antiemetics and judicious analgesics as needed. (3) Dehydration Is this a current diagnosis for this admission?: Yes Plan: Resolved. Secondary to DKA and poor p.o. intake related to acute on chronic pancreatitis. Continue maintenance IV fluids. Advancing diet to clears today. (4) Acute kidney injury Is this a current diagnosis for this admission?: Yes Plan: Resolved; secondary to dehydration. Creatinine on admission was elevated to 1.55 with a baseline of 1.0; he has returned to baseline. Avoid nephrotoxic medications. Continue maintenance IV fluids until tolerating p.o. (5) Chronic anemia Is this a current diagnosis for this admission?: Yes Plan: Anemia of chronic disease. Patient was admitted with a hemoglobin of 10.7; this is trended down slightly to 9.8 with IV fluid resuscitation. He has a baseline hemoglobin of 9. No evidence of active bleeding at this time. The registered dietitian has been consulted. Will start multivitamin with iron supplementation once tolerating p.o. (6) Polysubstance abuse Is this a current diagnosis for this admission?: Yes Plan: UDS positive for cocaine; questionable recreational drug use overnight. Nursing identified a crushed white powder in the finger of the glove. Mental health and discharge planning are consulted. (7) Tobacco abuse Is this a current diagnosis for this admission?: Yes Plan: Smoking cessation is encouraged. Nicotine replacement therapies are provided. - Time Time Spent with patient: 15-24 minutes Medications reviewed and adjusted accordingly: Yes Anticipated discharge: Home Within: within 24 hours
--- NOTE | 2018-01-14 19:13 | PSYCHOLOGICAL NOTE ---
Psych Note - Psych Note Date seen by psych provider: 01/14/18 Time seen by psych provider: 14:30 Psych Note: Reason for Consult: concern for possible undiagnosed mental health disorder Patient discloses that he came to [facility] because of diabetic ketoacidosis. He reports that he has been at [facility] since Wednesday (2 days previous). He reports he frequently has to come to the hospital because of DKA; "I do not have access to medications they prescribed me." He continued to report that he does not have a mental health diagnosis and has never been to outpatient therapy however states that he has been feeling depression anxiety. He denies current thoughts of wanting to harm himself however states that he did have passive suicidal ideation "a couple weeks ago" however denies plan stating they were "just thoughts." Patient reports he would like assistance with his depression. Patient is alert and orientated to person, place, time and circumstance. Mood is dysphoric with flat affect. Clinician notes patient is currently being treated for DKA. Patient denies current suicidal and homicidal ideation however still reports passive suicidal ideation i.e. no plans means or intent a couple weeks ago. Delusions are absent behaviors congruent with an intact reality based presentation i.e. organized and linear thought process. Eye contact is poor as patient is laying in bed with his eyes closed. Conversational speech was within normal rate, tone and prosody. Intellectual abilities appear to be within the average range. Attention and concentration are fair. Insight, judgment, impulse control are fair. Medication recommendations per [facility]'s contracted psychiatrist Dr Raiza RIVERS are as follows Effexor 37.5mg twice daily 311 (F32.9) unspecified depressive disorder (probable depression due to substance abuse) cocaine abuse Impression/Plan: Patient is cleared from acute psychiatric services. While patient denies trouble with substance abuse, he has a positive toxicology screening for cocaine. He reports passive suicidal ideation a "couple weeks ago ," denies current thoughts. He reports he would like assistance with depression. Medication recommendations have been provided. Patent is recommended to receive substance abuse treatment. Patient's cocaine abuse and noncompliance with his insulin increased the probability of his reported depressive symptoms. Dr. Morgan was consulted on the care and management of this patient; attending physician is in agreement with recommendations and disposition.
[2018-01-14 22:10] LABS: ANION GAP 14 (5-19); BLOOD UREA NITROGEN 13 mg/dL (7-20); CALCIUM 8.6 mg/dL (8.4-10.2); CARBON DIOXIDE 15 mmol/L (22-30); CHLORIDE 106 mmol/L (98-107); POTASSIUM 4.6 mmol/L (3.6-5.0); SODIUM 134.9 mmol/L (137-145)
[2018-01-14 22:29] LABS: GLUCOSE 589 mg/dL (75-110)
[2018-01-15 04:05] LABS: ANION GAP 8 (5-19); BLOOD UREA NITROGEN 13 mg/dL (7-20); CALCIUM 8.8 mg/dL (8.4-10.2); CARBON DIOXIDE 20 mmol/L (22-30); CHLORIDE 112 mmol/L (98-107); GLUCOSE 356 mg/dL (75-110); POTASSIUM 4.3 mmol/L (3.6-5.0); SODIUM 139.8 mmol/L (137-145)
[2018-01-15] MEDS: METOCLOPRAMIDE HCL 10 MG TABLET PO SCH ×2 (04:34→08:21)
[2018-01-15] MEDS ORDERED: INSULIN LISPRO 100 UNIT/ML 3 ML VIAL SUBCUT PRN (08:17)
[2018-01-15] MEDS: LIPASE/PROTEASE/AMYLASE 1 CAP CAPSULE.DR PO SCH (08:21)
[2018-01-15] MEDS: INSULIN LISPRO 100 UNIT/ML 3 ML VIAL SUBCUT SCH (08:27)
[2018-01-15] MEDS ORDERED: INSULIN LISPRO 100 UNIT/ML 3 ML VIAL SUBCUT ONE (08:30)
[2018-01-15] MEDS: ENOXAPARIN SODIUM INJ 40 MG/0.4 ML DISP.SYRIN SUBCUT SCH (09:47)
[2018-01-15] MEDS: FAMOTIDINE INJ/PF 20 MG/2 ML SDV IV SCH (09:48)
[2018-01-15] MEDS ORDERED: INSULIN GLARGINE,HUM.REC.ANLOG 300 UNIT/3 ML INSULN.PEN SUBCUT SCH ×2 (10:00)
[2018-01-15] MEDS ORDERED: VENLAFAXINE HCL 37.5 MG CAP.SR.24H PO SCH (10:00)
[2018-01-15 10:27] VITALS: BP 104/69
--- NOTE | 2018-01-15 14:57 | PDOC DISCHARGE SUMMARY ---
General - Admit/Disc Date/PCP Admission Date/Primary Care Provider: 01/12/18 18:02 Discharge Date: 01/15/18 - Discharge Diagnosis (1) Diabetic ketoacidosis associated with type 1 diabetes mellitus Is this a current diagnosis for this admission?: Yes Summary: Resolved. (2) Acute on chronic pancreatitis Is this a current diagnosis for this admission?: Yes (3) Dehydration Is this a current diagnosis for this admission?: Yes Summary: Resolved. (4) Acute kidney injury Is this a current diagnosis for this admission?: Yes Summary: Resolved. (5) Chronic anemia Is this a current diagnosis for this admission?: Yes Summary: Stable. (6) Polysubstance abuse Is this a current diagnosis for this admission?: Yes (7) Tobacco abuse Is this a current diagnosis for this admission?: Yes - Additional Information Resuscitation Status: Full Code Discharge Diet: Diabetic Discharge Activity: Activity As Tolerated, Balance Activity w/Rest, Slowly Increase Activity Prescriptions: Insulin Glargine,Hum.rec.anlog [Lantus Insulin Inj 300 Unit/3 ml Pen] 20 unit SUBCUT QHS #30 pen Insulin Lispro [Humalog Insulin (Lispro) 100 unit/mL] 0 - 12 unit SUBCUT ACHS # 1 vial Metoclopramide HCl [Reglan 10 mg Tablet] 5 mg PO ACHS #20 tablet Venlafaxine HCl ER [Effexor Xr 37.5 mg Cap.sr] 37.5 mg PO Q12 #60 cap.sr.24h Home Medications: Lipase/Protease/Amylase [Pancrease EC Capsule] 1 each PO AC 01/05/18 Insulin Lispro [Humalog Insulin (Lispro) 100 unit/mL] 0 - 12 unit SUBCUT ACHS # 1 vial 01/14/18 Metoclopramide HCl [Reglan 10 mg Tablet] 5 mg PO ACHS #20 tablet 01/14/18 Insulin Glargine,Hum.rec.anlog [Lantus Insulin Inj 300 Unit/3 ml Pen] 20 unit SUBCUT QHS #30 pen 01/15/18 Venlafaxine HCl ER [Effexor Xr 37.5 mg Cap.sr] 37.5 mg PO Q12 #60 cap.sr.24h 09/25 History of Present Illness History of Present Illness: Per H&P by Dr. Hernandez: CHESTER MCKEON is a 37 year old male with history of type 1 diabetes mellitus, pancreatitis, anxiety, depression, lipidemia, hypertension, GERD The emergency room with complaints of nausea vomiting abdominal pain and chest pains for the last 3 days. According to him he ran out of his insulin at home and because he cannot afford it the last time took his insulin is 4 days ago after that he started having nausea vomiting abdominal pains in association with the diarrhea he says he unable to keep anything down. Patient complains of chills denies any fever is also given the history of abdominal pain of 8 x 10. He said he was admitted before with a similar problems at this at that time he ran out of insulin and came to the ER with high blood sugars. Hospital Course Hospital Course: The patient was admitted with acute on chronic pancreatitis, acute kidney injury , and DKA secondary to noncompliance with his insulin. He was admitted to [facility] on continuous cardiac telemetry and provided aggressive IV fluid resuscitation, placed on insulin drip, with serial chemistries. His anion gap closed and his bicarb trended upward. He was transitioned to subcutaneous insulin and placed on a clear liquid diet which he has tolerated well. He remained afebrile throughout his admission with a normal WBC. His symptoms were well managed with Tylenol, ibuprofen, and Reglan. The registered dietitian, senior health educator, patient navigator, c4 planner, and mental health provider were all consulted. Mental health services diagnosed the patient with depression and recommended initiating Effexor twice daily; he declined to meet with the registered dietitian and senior health educator. At time of discharge, the patient was in stable condition, and not requested analgesic and antiemetics and greater than 12 hours, was afebrile, and tolerating a clear liquid diet. He was discharged home with self-care and provided prescriptions for Lantus, Humalog, Reglan, and Effexor. He was instructed to follow-up with his primary care provider as scheduled next week and to return to the emergency department as needed for any concerning symptoms. Physical Exam Vital Signs: Temp Pulse Resp BP Pulse Ox 97.9 F 92 11 L 104/69 100 01/15/18 10:25 01/15/18 10:25 01/15/18 10:25 01/15/18 10:25 01/15/18 10:25 Intake & Output 01/14/18 01/15/18 01/16/18 06:59 06:59 06:59 Intake Total 3935 2962 Output Total 100 Balance 3835 2962 Weight 75.3 kg 74.4 kg General appearance: PRESENT: no acute distress, well-developed, well-nourished Head exam: PRESENT: atraumatic, normocephalic Eye exam: PRESENT: conjunctiva pink, EOMI, PERRLA. ABSENT: scleral icterus Ear exam: PRESENT: normal external ear exam Mouth exam: PRESENT: moist, tongue midline Neck exam: ABSENT: carotid bruit, JVD, lymphadenopathy, thyromegaly Respiratory exam: PRESENT: clear to auscultation alfonso, symmetrical, unlabored. ABSENT: rales, rhonchi, wheezes Cardiovascular exam: PRESENT: RRR, +S1, +S2. ABSENT: diastolic murmur, rubs, systolic murmur Pulses: PRESENT: normal dorsalis pedis pul Vascular exam: PRESENT: normal capillary refill GI/Abdominal exam: PRESENT: normal bowel sounds, soft, tenderness. ABSENT: distended, guarding, mass, organolmegaly, rebound Rectal exam: PRESENT: deferred Extremities exam: PRESENT: full ROM. ABSENT: calf tenderness, clubbing, pedal edema Neurological exam: PRESENT: alert, awake, oriented to person, oriented to place , oriented to time, oriented to situation, CN II-XII grossly intact. ABSENT: motor sensory deficit Psychiatric exam: PRESENT: agitated, appropriate affect, normal mood. ABSENT: homicidal ideation, suicidal ideation Skin exam: PRESENT: dry, intact, warm. ABSENT: cyanosis, rash Results Laboratory Results: 01/14/18 03:25 01/15/18 03:25 01/14/18 01/14/18 01/15/18 14:55 21:30 03:25 Sodium 137.0 134.9 L 139.8 Potassium 4.0 4.6 4.3 Chloride 109 H 106 112 H Carbon Dioxide 19 L 15 L 20 L Anion Gap 9 14 8 BUN 15 13 13 Creatinine 0.96 1.02 0.96 Est GFR ( Amer) > 60 > 60 > 60 Est GFR (Non-Af Amer) > 60 > 60 > 60 Glucose 339 H 589 H* 356 H Calcium 7.8 L 8.6 8.8 Impressions: Abdomen/Pelvis CT 01/12/18 00:00 IMPRESSION: 1. Chronic pancreatitis with no acute inflammatory changes. 2. Nonobstructing left lower calyceal calculus. 3. Marked distention of the urinary bladder. 4. Osseous findings as described. Chest X-Ray 01/12/18 19:12 IMPRESSION: Right internal jugular catheter in position as described. Qualifiers - * PATIENT BEING DISCHARGED WITH ANY OF THE FOLLOWING DIAGNOSIS: No Plan Discharge Plan: Discharge to home with self-care. Follow-up with primary care provider within 1 week. Return to the emergency department as needed for concerning symptoms.
== END 2018-01-15 11:30 | disposition home or self-care (01) | DRG 637 ==
LOC: ER 13:23 → EH 18:02 → ICU 21:34 → 3W 01-13 05:58
PROVIDERS: ADMIT Internal Medicine; ATTEND Internal Medicine
PROC: 02HV33Z Insertion of Infusion Device into Superior Vena Cava, Percutaneous Approach (ICD-10-PCS; principal; 2018-01-12)
DX: E10.10 Type 1 diabetes mellitus with ketoacidosis without coma (principal); K85.90 Acute pancreatitis without necrosis or infection, unspecified; N17.9 Acute kidney failure, unspecified; K86.1 Other chronic pancreatitis; E86.0 Dehydration; K21.9 Gastro-esophageal reflux disease without esophagitis; D64.9 Anemia, unspecified; I10 Essential (primary) hypertension; E78.5 Hyperlipidemia, unspecified; F41.8 Other specified anxiety disorders; F14.10 Cocaine abuse, uncomplicated; F19.10 Other psychoactive substance abuse, uncomplicated; F17.210 Nicotine dependence, cigarettes, uncomplicated; Z91.120 Patient's intentional underdosing of medication regimen due to financial hardship; Z86.14 Personal history of Methicillin resistant Staphylococcus aureus infection; Z79.4 Long term (current) use of insulin
CPT/HCPCS: 36415; 71045; 74177; 80048; 80053; 80061; 80307; 81001; 82150; 82803; 82962; 83036; 83605; 83690; 83735; 84443; 85025; 85610; 93005; 93010; 96361; 96374; 96375; 99291; C1751; J1170; J1642; J1815; J2765; J3010; J3480; J3490; J7030; S0028

== ENCOUNTER 2018-04-14 20:51 | Inpatient (IN) | payer SELFPAY ==
[2018-04-14] MEDS ORDERED: NORMAL SALINE 1000 ML 2,000 ML IV ONE (21:38)
[2018-04-14] MEDS ORDERED: METOCLOPRAMIDE HCL INJ/PF 10 MG/2 ML SDV IV ONE (21:47)
[2018-04-14 22:16] LABS: ABSOLUTE BASOPHILS # (AUTO) 0.1 10^3/uL (0.0-0.2); ABSOLUTE MONOCYTES (AUTO) 1.2 10^3/uL (0.1-1.4); ABSOLUTE NEUT (AUTO) 11.3 10^3/uL (1.7-8.2); BASOPHILS % (AUTO) 0.6 % (0-2); EOSINOPHILS % (AUTO) 0.2 % (0-6); HEMOGLOBIN 11.7 g/dL (13.5-17.0); MEAN CORPUSCULAR HEMOGLOBIN 25.6 pg (27.0-33.4); MEAN CORPUSCULAR HGB CONC 32.5 g/dL (32.0-36.0); MEAN CORPUSCULAR VOLUME 79 fl (80-97); PLATELET COUNT 259 10^3/uL (150-450); RED BLOOD COUNT 4.58 10^6/uL (4.35-5.55); RED CELL DISTRIBUTION WIDTH 20.1 % (11.5-14.0); SEGMENTED NEUTROPHILS % (AUTO) 83.2 % (42-78); TOTAL CELLS COUNTED % (AUTO) 100 %; WHITE BLOOD COUNT 13.6 10^3/uL (4.0-10.5)
--- NOTE | 2018-04-14 22:22 | ER Document Report ---
ED General - General Chief Complaint: Abdominal Pain Stated Complaint: ABDOMINAL PAIN Time Seen by Provider: 04/14/18 21:37 Notes: Patient is a 38-year-old male with a past medical history of chronic pancreatitis, insulin-dependent type 1 diabetes, medication noncompliance, alcohol abuse, polysubstance abuse, presents with complaints of 1 week of progressively worsening epigastric abdominal pain, nausea, vomiting and coffee- ground emesis. Pain to the upper abdomen is described as an aching, throbbing, constant pain radiates into his back. Nothing seems to improve or worsen this pain. States this feels identical to when he had exacerbations of his chronic pancreatitis when he is a diabetic ketoacidosis in the past. States that he has been able to keep no food or fluids down for the past 1 week. Has not seen his general physician regarding today's concerns. Denies fever. No chest pain or shortness of breath. TRAVEL OUTSIDE OF THE [place] IN LAST 30 DAYS: No - Related Data Allergies/Adverse Reactions: ondansetron [From Zofran (as hydrochloride)] Allergy (Verified 01/05/18 07:34) Past Medical History - General Information source: Patient - Social History Smoking Status: Current Every Day Smoker Chew tobacco use (# tins/day): No Frequency of alcohol use: None Drug Abuse: Marijuana Family History: DM, Hyperlipidemia, Hypertension Patient has suicidal ideation: No Patient has homicidal ideation: No - Past Medical History Cardiac Medical History: Reports: Hx Hypercholesterolemia, Hx Hypertension - Taken off medication for same. Denies: Hx Atrial Fibrillation, Hx Congestive Heart Failure, Hx Coronary Artery Disease, Hx Heart Attack, Hx Pulmonary Embolism Pulmonary Medical History: Denies: Hx Asthma, Hx COPD, Hx Sleep Apnea Neurological Medical History: Denies: Hx Migraine, Hx Seizures Endocrine Medical History: Reports: Hx Diabetes Mellitus Type 1, Hx Diabetes Mellitus Type 2. Denies: Hx Hyperthyroidism, Hx Hypothyroidism Renal/ Medical History: Denies: Hx End Stage Renal Disease, Hx Peritoneal Dialysis GI Medical History: Reports: Hx Gastroesophageal Reflux Disease, Hx Pancreatitis, Hx Ulcer. Denies: Hx Cirrhosis, Hx Hepatitis Musculoskeletal Medical History: Denies Hx Arthritis, Denies Hx Fibromyalgia Skin Medical History: Denies Hx Eczema, Denies Hx Psoriasis Psychiatric Medical History: Reports: Hx Depression Infectious Medical History: Reports: Hx MRSA. 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 Denies: Hx Appendectomy, Hx Cholecystectomy, Hx Tonsillectomy - Immunizations Hx Diphtheria, Pertussis, Tetanus Vaccination: Yes Hx Pneumococcal Vaccination: 11/09/11 Review of Systems - Review of Systems Notes: Constitutional: Negative for fever. HENT: Negative for sore throat. Eyes: Negative for visual changes. Cardiovascular: Negative for chest pain. Respiratory: Negative for shortness of breath. Gastrointestinal: Positive for upper abdominal pain, vomiting, Genitourinary: Negative for dysuria. Musculoskeletal: Positive for mid back pain Skin: Negative for rash. Neurological: Negative for headaches, weakness or numbness. 10 point ROS negative except as marked above and in HPI. Physical Exam - Vital signs Vitals: Temp Resp Pulse Ox 97.9 F 23 H 99 04/14/18 21:00 04/14/18 21:00 04/14/18 21:00 Interpretation: Tachycardic Notes: PHYSICAL EXAMINATION: GENERAL: Appears unwell but in no acute distress HEAD: Atraumatic, normocephalic. EYES: Pupils equal round and reactive to light, extraocular movements intact, sclera anicteric, conjunctiva are normal. ENT: nares patent, oropharynx clear without exudates. Moderately dry mucous membranes. NECK: Normal range of motion, supple without lymphadenopathy LUNGS: Breath sounds clear to auscultation bilaterally and equal. No wheezes rales or rhonchi. HEART: Regular tachycardia without murmurs ABDOMEN: Soft, focal tenderness the epigastrium but no other localized areas of tenderness, normoactive bowel sounds. No guarding, no rebound. No masses appreciated. EXTREMITIES: Normal range of motion, no pitting or edema. No cyanosis. NEUROLOGICAL: No focal neurological deficits. Moves all extremities spontaneously and on command. PSYCH: Moderately anxious SKIN: Warm, Dry, normal turgor, no rashes or lesions noted. Course - Re-evaluation Re-evalutation: 04/14/18 22:21 Patient presents with nausea, vomiting, coffee-ground emesis, generalized abdominal pain, and has a history of the same repeatedly in the past. The patient has had 8 admissions for diabetic ketoacidosis in 2018 often in conjunction with coffee-ground emesis and intractable abdominal pain. Patient states that he is not taking his medications due to insurance issues. Initial vitals show tachycardia, otherwise unremarkable. Initial BGL is 240. Additional labs are pending. 04/15/18 00:31 Labs reveal acute kidney injury with a pattern of prerenal azotemia. Patient does not have findings consistent with diabetic ketoacidosis. Blood count is actually much improved from most recent hospitalization. Patient symptoms have overall improved after receiving metoclopramide. Receiving ongoing IV fluids. Given ongoing vomiting, degree of acute kidney injury, ongoing tachycardia with a current heart rate of 127, will discuss with the hospitalist for admission. 04/15/18 00:54 I did discuss this with the hospitalist for admission who has accepted. - Vital Signs Vital signs: Temp Pulse Resp BP Pulse Ox 97.9 F 133 H 13 120/64 98 04/14/18 21:00 04/14/18 21:03 04/14/18 23:01 04/15/18 03:30 04/14/18 23:01 - Laboratory Result Diagrams: 04/15/18 02:50 04/14/18 22:00 Laboratory results interpreted by me: 04/14/18 04/14/18 04/14/18 20:56 22:00 22:00 WBC 13.6 H Hgb 11.7 L Hct 36.0 L MCV 79 L MCH 25.6 L RDW 20.1 H Seg Neutrophils % 83.2 H Lymphocytes % 7.0 L Absolute Neutrophils 11.3 H BUN 62 H Creatinine 2.00 H Est GFR ( Amer) 46 L Est GFR (Non-Af Amer) 38 L Glucose 293 H POC Glucose 240 H AST 13 L Lipase 530.1 H Crossmatch 04/14/18 22:00 WBC Hgb Hct MCV MCH RDW Seg Neutrophils % Lymphocytes % Absolute Neutrophils BUN Creatinine Est GFR ( Amer) Est GFR (Non-Af Amer) Glucose POC Glucose AST Lipase Crossmatch See Detail Discharge - Discharge Clinical Impression: Acute kidney injury, Acute on chronic GI bleeding, Acute on chronic pancreatitis, Dehydration Condition: Fair Disposition: ADMITTED INPATIENT Admitting Provider: Hospitalist Unit Admitted: [facility]
[2018-04-14 22:31] LABS: HYPOCHROMASIA SLIGHT; TOXIC GRANULATION SLIGHT
[2018-04-14 22:32] LABS: ALANINE AMINOTRANSFERASE 26 U/L (21-72); ALBUMIN 3.5 g/dL (3.5-5.0); ALKALINE PHOSPHATASE 126 U/L (38-126); ANION GAP 16 (5-19); ANISOCYTOSIS 2+; ASPARTATE AMINO TRANSFERASE 13 U/L (17-59); BILIRUBIN,DIRECT 0.3 mg/dL (0.0-0.4); BILIRUBIN,TOTAL 0.3 mg/dL (0.2-1.3); BLOOD UREA NITROGEN 62 mg/dL (7-20); CALCIUM 9.2 mg/dL (8.4-10.2); CARBON DIOXIDE 26 mmol/L (22-30); CHLORIDE 98 mmol/L (98-107); GLUCOSE 293 mg/dL (75-110); LIPASE 530.1 U/L (23-300); PLATELET COMMENT ADEQUATE; POIKILOCYTOSIS SLIGHT; POTASSIUM 4.1 mmol/L (3.6-5.0); TOTAL PROTEIN 6.5 g/dL (6.3-8.2)
[2018-04-14 22:54] LABS: VENOUS BLOOD BASE EXCESS -4.9 mmol/L; VENOUS BLOOD PCO2 42.4 mmHg (35-63); VENOUS BLOOD PH 7.31 (7.30-7.42)
[2018-04-14] MEDS ORDERED: RINGERS SOLUTION,LACTATED 1,000 ML IV ONE (23:55)
[2018-04-15] MEDS ORDERED: FENTANYL CITRATE INJ/PF 100 MCG/2 ML AMPUL IV PRN (00:53)
[2018-04-15] MEDS ORDERED: METOCLOPRAMIDE HCL INJ/PF 10 MG/2 ML SDV IV ONE (00:53)
[2018-04-15] MEDS ORDERED: RINGERS SOLUTION,LACTATED 1,000 ML IV PRN (02:00)
[2018-04-15] MEDS ORDERED: MAG HYDROX/AL HYDROX/SIMETH SUSP 30 ML UDCUP PO PRN (02:00)
[2018-04-15] MEDS ORDERED: MAGNESIUM HYDROXIDE SUSP 30 ML UDCUP PO PRN (02:00)
[2018-04-15] MEDS ORDERED: METOCLOPRAMIDE HCL INJ/PF 10 MG/2 ML SDV IV SCH (02:00)
--- NOTE | 2018-04-15 02:00 | PDOC H&P ---
History of Present Illness Admission Date/PCP: 04/15/18 01:07 Patient complains of: Nausea and vomiting History of Present Illness: CHESTER MCKEON is a 38 year old male who presents to the emergency room with a one-week history of nausea and vomiting. He admits that he began having nausea and vomiting approximately 1 week prior to his admission with gradually worsening symptoms to the point where he can no longer tolerate any oral intake of either liquid or solids. His retching is become severe and continues even though his stomach is empty. He is having severe associated epigastric cramping pain with the vomiting and retching episodes. Additionally he complains of a constant underlying severe pressure in the epigastric region into his back consistent with his history of chronic pancreatitis with an acute flare. He also indicates that he is noted coffee-ground material present in some of the emesis over the course of the last week. He has numerous prior similar episodes related to his chronic pancreatitis and acute diabetic ketoacidosis. He has not identified any other aggravating or ameliorating factors for his nausea and vomiting. In the emergency room he was found to be dehydrated and tachycardic with acute kidney injury and moderate hyperglycemia without diabetic ketoacidosis. With these findings patient was admitted to the [facility] for further evaluation and treatment. Past Medical History Cardiac Medical History: Reports: Hyperlipidema, Hypertension - Taken off medication for same. Denies: Atrial Fibrillation, Congestive Heart Failure, Coronary Artery Disease, Myocardial Infarction, Pulmonary Embolism Pulmonary Medical History: Denies: Asthma, Chronic Obstructive Pulmonary Disease (COPD), Sleep Apnea EENT Medical History: Denies: Cataracts, Nose - Nasal polyps Neurological Medical History: Denies: Migraine, Seizures Endocrine Medical History: Reports: Diabetes Mellitus Type 1 Denies: Hyperthyroidism, Hypothyroidism, Obesity Renal/ Medical History: Denies: Chronic Kidney Disease, Nephrolithiasis Malignancy Medical History: Reports: None GI Medical History: Reports: Gastroesophageal Reflux Disease, Other - Chronic pancreatitis Denies: Cirrhosis, Hepatitis Musculoskeltal Medical History: Denies: Arthritis, Fibromyalgia Skin Medical History: Denies: Eczema, Psoriasis Psychiatric Medical History: Reports: Depression, Substance Abuse, Tobacco Dependency Denies: Alcohol Dependency Traumatic Medical History: Reports: None Hematology: Reports: Anemia - Chronic illnesses Denies: Bleeding Tendencies Infectious Medical History: Reports: Methicillin-Resistant Staph Aureus Past Surgical History Past Surgical History: Reports: Orthopedic Surgery - back surgery, left long finger PIP disarticulation, right hand I and D Social History Information Source: Patient Smoking Status: Current Every Day Smoker Frequency of Alcohol Use: None Hx Recreational Drug Use: Yes Drugs: Cocaine, Marijuana Hx Prescription Drug Abuse: No - Advance Directive Resuscitation Status: Full Code Surrogate healthcare decision maker:: Mother Family History Family History: DM, Hyperlipidemia, Hypertension Parental Family History Reviewed: Yes Children Family History Reviewed: No Sibling(s) Family History Reviewed.: Yes Medication/Allergy Home Medications: RX: Lipase/Protease/Amylase [Pancrease EC Capsule] 1 each PO AC 01/05/18 RX: Insulin Lispro [Humalog Insulin (Lispro) 100 unit/mL] 0 - 12 unit SUBCUT ACHS #1 vial 01/14/18 RX: Metoclopramide HCl [Reglan 10 mg Tablet] 5 mg PO ACHS #20 tablet 01/14/18 Insulin Glargine,Hum.rec.anlog [Lantus Insulin Inj 300 Unit/3 ml Pen] 20 unit SUBCUT QHS #30 pen 01/15/18 RX: Venlafaxine HCl ER [Effexor Xr 37.5 mg Cap.sr] 37.5 mg PO Q12 #60 cap.sr.24h 01/15/18 Allergies/Adverse Reactions: ondansetron [From Zofran (as hydrochloride)] Allergy (Verified 01/05/18 07:34) Review of Systems Constitutional: ABSENT: chills, fever(s) Eyes: ABSENT: visual disturbances, other - Ocular pain Ears: ABSENT: hearing changes, other - Ear pain Nose, Mouth, and Throat: ABSENT: mouth pain, sore throat Cardiovascular: ABSENT: chest pain, dyspnea on exertion, edema, orthropnea, palpitations Respiratory: ABSENT: cough, dyspnea Gastrointestinal: PRESENT: as per HPI, abdominal pain, coffee ground emesis, nausea, vomiting. ABSENT: constipation, diarrhea Genitourinary: ABSENT: dysuria, hematuria Musculoskeletal: ABSENT: deformity, joint swelling Integumentary: ABSENT: pruritus, rash Neurological: ABSENT: confusion, convulsions, focal weakness, memory loss Endocrine: ABSENT: cold intolerance, heat intolerance Hematologic/Lymphatic: ABSENT: easy bleeding, easy bruising Physical Exam Vital Signs: Temp Pulse Resp BP Pulse Ox 97.9 F 133 H 13 115/88 H 98 04/14/18 21:00 04/14/18 21:03 04/14/18 23:01 04/14/18 23:01 04/14/18 23:01 Intake & Output 04/13/18 04/14/18 04/15/18 23:59 23:59 23:59 Intake Total 1999 Balance 1999 General appearance: PRESENT: cooperative, severe distress - Distress secondary to abdominal discomfort Head exam: PRESENT: atraumatic, normocephalic Eye exam: PRESENT: conjunctiva pink. ABSENT: scleral icterus Ear exam: PRESENT: normal external ear exam. ABSENT: bleeding, drainage Mouth exam: PRESENT: dry mucosa, neck supple Neck exam: ABSENT: thyromegaly, tracheal deviation Respiratory exam: PRESENT: clear to auscultation alfonso, symmetrical, unlabored Cardiovascular exam: PRESENT: RRR, tachycardia. ABSENT: clicks, gallop, rubs Pulses: PRESENT: normal radial pulses, normal dorsalis pedis pul Vascular exam: PRESENT: normal capillary refill. ABSENT: pallor GI/Abdominal exam: PRESENT: hypoactive bowel sounds, soft, tenderness - Severe epigastric tenderness on palpation Rectal exam: PRESENT: deferred Extremities exam: ABSENT: joint swelling, pedal edema Musculoskeletal exam: PRESENT: full ROM, normal inspection Neurological exam: PRESENT: alert, oriented to person, oriented to place, oriented to time, oriented to situation, CN II-XII grossly intact. ABSENT: motor sensory deficit Psychiatric exam: PRESENT: appropriate affect, normal mood Skin exam: PRESENT: dry, intact, warm. ABSENT: jaundice, rash, urticaria Results Laboratory Results: 04/14/18 22:00 04/14/18 22:00 04/14/18 04/14/18 04/14/18 22:00 22:00 22:00 WBC 13.6 H RBC 4.58 Hgb 11.7 L Hct 36.0 L MCV 79 L MCH 25.6 L MCHC 32.5 RDW 20.1 H Plt Count 259 Seg Neutrophils % 83.2 H Lymphocytes % 7.0 L Monocytes % 9.0 Eosinophils % 0.2 Basophils % 0.6 Absolute Neutrophils 11.3 H Absolute Lymphocytes 1.0 Absolute Monocytes 1.2 Absolute Eosinophils 0.0 Absolute Basophils 0.1 VBG pH VBG pCO2 VBG HCO3 VBG Base Excess Sodium 140.0 Potassium 4.1 Chloride 98 Carbon Dioxide 26 Anion Gap 16 BUN 62 H Creatinine 2.00 H Est GFR ( Amer) 46 L Est GFR (Non-Af Amer) 38 L Glucose 293 H Calcium 9.2 Total Bilirubin 0.3 AST 13 L ALT 26 Alkaline Phosphatase 126 Total Protein 6.5 Albumin 3.5 Lipase 530.1 H Blood Type A POSITIVE Antibody Screen NEGATIVE 04/14/18 22:45 WBC RBC Hgb Hct MCV MCH MCHC RDW Plt Count Seg Neutrophils % Lymphocytes % Monocytes % Eosinophils % Basophils % Absolute Neutrophils Absolute Lymphocytes Absolute Monocytes Absolute Eosinophils Absolute Basophils VBG pH 7.31 VBG pCO2 42.4 VBG HCO3 21.0 VBG Base Excess -4.9 Sodium Potassium Chloride Carbon Dioxide Anion Gap BUN Creatinine Est GFR ( Amer) Est GFR (Non-Af Amer) Glucose Calcium Total Bilirubin AST ALT Alkaline Phosphatase Total Protein Albumin Lipase Blood Type Antibody Screen Assessment & Plan - Diagnosis (1) Acute kidney injury Is this a current diagnosis for this admission?: Yes Plan: To be treated with rehydration and serial evaluation of CBC and metabolic profiles with magnesium levels. (2) Acute on chronic pancreatitis Is this a current diagnosis for this admission?: Yes Plan: Patient be treated with IV fluids and pain control utilizing morphine 2-4 mg IV every 2 hours as needed on a sliding scale basis. He will have daily monitoring of his pancreatic enzymes as well as a CBC and metabolic profile. (3) Acute GI bleeding Is this a current diagnosis for this admission?: Yes Plan: Patient will have serial CBCs performed to evaluate his GI bleeding. Further evaluation or other intervention will be entertained based on the results of his screening. (4) Hyperglycemia due to type 1 diabetes mellitus Is this a current diagnosis for this admission?: Yes Plan: Patient receive insulin on a closely monitored basis with every 4 hour glucose determinations and a sliding scale insulin protocol for coverage. (5) Nausea and vomiting Qualifiers: Vomiting type: unspecified Is this a current diagnosis for this admission?: Yes Plan: Patient receive antiemetic therapy as well as IV fluid replacement. He will followed closely and monitored with telemetry. Metabolic profile be monitored on a regular basis. - Time Time Spent: 30 to 50 Minutes Critical Time spent with patient: Less than 15 minutes Smoking Cessation Education: 3 to 10 minutes Medications reviewed and adjusted accordingly: Yes Anticipated discharge: Home - Inpatient Certification Based on my medical assessment, after consideration of the patient's comorbidities, presenting symptoms, or acuity I expect that the services needed warrant INPATIENT care.: Yes I certify that my determination is in accordance with my understanding of Medicare's requirements for reasonable and necessary INPATIENT services [42 CFR 412.3e].: Yes Medical Necessity: Significant Comorbidiites Make Outpatient Treatment Too Risky, Need Close Monitoring Due to Risk of Patient Decompensation, Need For IV Fluids, Need For Continuous Telemetry Monitoring, Need for Pain Control, Risk of Complication if Not Cared For in Hospital
[2018-04-15] MEDS ORDERED: DEXTROSE 40% GEL 15 GM TUBE PO PRN ×2 (02:05)
[2018-04-15] MEDS ORDERED: DEXTROSE 50%-WATER 25 GM/50 ML DISP.SYRIN IV PRN ×2 (02:05)
[2018-04-15] MEDS ORDERED: GLUCAGON,HUMAN RECOMB 1 MG INJ IM PRN (02:05)
[2018-04-15] MEDS ORDERED: ACETAMINOPHEN 650 MG SUPP.RECT PR PRN (02:06)
[2018-04-15] MEDS ORDERED: ACETAMINOPHEN 325 MG TABLET PO PRN (02:06)
[2018-04-15] MEDS ORDERED: MORPHINE SULFATE 10 MG/ML INJ IV PRN ×5 (02:06→19:00)
[2018-04-15] MEDS ORDERED: HYDRALAZINE HCL INJ/PF 20 MG/1 ML SDV IV PRN (02:06)
[2018-04-15] MEDS ORDERED: CHLORPROMAZINE HCL INJ 25 MG/1 ML AMPULE IV PRN (02:06)
[2018-04-15] MEDS ORDERED: RINGERS SOLUTION,LACTATED 1,000 ML IV ONE ×2 (02:58→03:00)
[2018-04-15] MEDS ORDERED: PHENYLEPHRINE HCL INJ/PF 10 MG/1 ML SDV ONE ×2 (03:07→03:08)
[2018-04-15 03:08] LABS: ABSOLUTE LYMPHOCYTES (AUTO) 1.1 10^3/uL (0.5-4.7); ABSOLUTE MONOCYTES (AUTO) 1.2 10^3/uL (0.1-1.4); ABSOLUTE NEUT (AUTO) 10.5 10^3/uL (1.7-8.2); BASOPHILS % (AUTO) 0.2 % (0-2); HEMATOCRIT 28.2 % (37.9-51.0); LYMPHOCYTES % (AUTO) 8.7 % (13-45); MEAN CORPUSCULAR HEMOGLOBIN 25.8 pg (27.0-33.4); MEAN CORPUSCULAR HGB CONC 31.8 g/dL (32.0-36.0); MEAN CORPUSCULAR VOLUME 81 fl (80-97); MONOCYTES % (AUTO) 9.4 % (3-13); PLATELET COUNT 225 10^3/uL (150-450); RED BLOOD COUNT 3.48 10^6/uL (4.35-5.55); RED CELL DISTRIBUTION WIDTH 20.1 % (11.5-14.0); SEGMENTED NEUTROPHILS % (AUTO) 81.7 % (42-78); TOTAL CELLS COUNTED % (AUTO) 100 %; WHITE BLOOD COUNT 12.8 10^3/uL (4.0-10.5)
[2018-04-15] MEDS ORDERED: DEXTROSE 5%-WATER 250 ML with PHENYLEPHRINE HCL 40 MG IV PRN ×2 (03:08)
[2018-04-15] MEDS ORDERED: NORMAL SALINE 250 ML IV PRN ×3 (03:12→03:14)
[2018-04-15] MEDS ORDERED: DIPHENHYDRAMINE HCL 25 MG CAPSULE PO PRN (03:14)
[2018-04-15] MEDS ORDERED: FUROSEMIDE INJ/PF 20 MG/2 ML SDV IV PRN (03:14)
[2018-04-15] MEDS: PHENYLEPHRINE HCL INJ/PF 10 MG/1 ML SDV ONE ×2 (03:25→05:41)
[2018-04-15] MEDS ORDERED: ACETAMINOPHEN 650 MG SUPP.RECT PR ONE (03:30)
[2018-04-15] MEDS: INSULIN REG, HUMAN 100 UNIT/ML 3 ML VIAL (PYX) SUBCUT PRN ×3 (04:34→17:36)
[2018-04-15] MEDS: HEPARIN SOD (PORCINE) 5,000 UNIT/ML 1 ML SYRINGE SUBCUT SCH ×4 (05:20→21:56)
[2018-04-15 07:01] LABS: APPEARANCE,URINE SLIGHTLY-CLOUDY; BILIRUBIN,URINE NEGATIVE (NEGATIVE); COLOR,URINE YELLOW; GLUCOSE, URINE >=500 mg/dL (NEGATIVE); KETONES,URINE 20 mg/dL (NEGATIVE); LEUKOCYTE ESTERASE,URINE NEGATIVE (NEGATIVE); NITRITE,URINE NEGATIVE (NEGATIVE); PROTEIN,URINE 100 mg/dL (NEGATIVE); URINE SPECIFIC GRAVITY 1.025; UROBILINOGEN,URINE NEGATIVE mg/dL (<2.0)
[2018-04-15 08:45] LABS: HEMATOCRIT 30.4 % (37.9-51.0); MEAN CORPUSCULAR HEMOGLOBIN 26.4 pg (27.0-33.4); MEAN CORPUSCULAR HGB CONC 32.8 g/dL (32.0-36.0); MEAN CORPUSCULAR VOLUME 81 fl (80-97); PLATELET COUNT 233 10^3/uL (150-450); RED BLOOD COUNT 3.77 10^6/uL (4.35-5.55); RED CELL DISTRIBUTION WIDTH 19.6 % (11.5-14.0); WHITE BLOOD COUNT 14.6 10^3/uL (4.0-10.5)
[2018-04-15] MEDS: SUCRALFATE SUSP 1 GM/10 ML UDCUP PO SCH ×4 (09:00→21:49)
[2018-04-15] MEDS: METOCLOPRAMIDE HCL INJ/PF 10 MG/2 ML SDV IV SCH ×4 (09:01→21:49)
[2018-04-15] MEDS: MORPHINE SULFATE 10 MG/ML INJ IV PRN ×3 (09:02→17:20)
[2018-04-15] MEDS: DOCUSATE SODIUM 100 MG CAPSULE PO SCH ×2 (09:03→17:10)
[2018-04-15] MEDS: LIPASE/PROTEASE/AMYLASE 1 CAP CAPSULE.DR PO SCH ×3 (09:03→17:20)
[2018-04-15] MEDS: PANTOPRAZOLE SODIUM 40 MG VIAL IV SCH ×2 (09:07→21:49)
[2018-04-15 09:21] LABS: LIPASE 424.9 U/L (23-300)
--- NOTE | 2018-04-15 12:09 | RADIOLOGY REPORT (SQ) ---
EXAM DESCRIPTION: FOOT LEFT COMPLETE COMPLETED DATE/TIME: 04/15/2018 11:52 am REASON FOR STUDY: Second toe wound COMPARISON: None. NUMBER OF VIEWS: Three views. TECHNIQUE: AP, lateral and oblique radiographic images acquired of the left foot. LIMITATIONS: None. FINDINGS: MINERALIZATION: Normal. BONES: No acute fracture or dislocation. No worrisome bone lesions. JOINTS: No effusions. SOFT TISSUES: No soft tissue swelling. No foreign body. OTHER: No other significant finding. IMPRESSION: NEGATIVE STUDY OF THE LEFT FOOT. NO RADIOGRAPHIC EVIDENCE OF ACUTE INJURY. TECHNICAL DOCUMENTATION: JOB ID: [id number] [employer]- All Rights Reserved Reading location - IP/workstation name: [email or web address]
[2018-04-15 12:15] LABS: HEMATOCRIT 29.5 % (37.9-51.0); HEMOGLOBIN 9.7 g/dL (13.5-17.0); MEAN CORPUSCULAR HEMOGLOBIN 26.3 pg (27.0-33.4); MEAN CORPUSCULAR HGB CONC 32.9 g/dL (32.0-36.0); MEAN CORPUSCULAR VOLUME 80 fl (80-97); PLATELET COUNT 229 10^3/uL (150-450); RED BLOOD COUNT 3.68 10^6/uL (4.35-5.55); RED CELL DISTRIBUTION WIDTH 19.2 % (11.5-14.0); WHITE BLOOD COUNT 14.7 10^3/uL (4.0-10.5)
[2018-04-15 12:38] LABS: ALBUMIN 2.6 g/dL (3.5-5.0); ANION GAP 11 (5-19); BLOOD UREA NITROGEN 48 mg/dL (7-20); CALCIUM 8.3 mg/dL (8.4-10.2); CARBON DIOXIDE 22 mmol/L (22-30); CHLORIDE 105 mmol/L (98-107); GLUCOSE 317 mg/dL (75-110); POTASSIUM 4.3 mmol/L (3.6-5.0); SODIUM 138.2 mmol/L (137-145)
[2018-04-15 18:42] LABS: HEMATOCRIT 23.6 % (37.9-51.0); MEAN CORPUSCULAR HEMOGLOBIN 27.1 pg (27.0-33.4); MEAN CORPUSCULAR HGB CONC 34.1 g/dL (32.0-36.0); MEAN CORPUSCULAR VOLUME 80 fl (80-97); PLATELET COUNT 181 10^3/uL (150-450); RED BLOOD COUNT 2.97 10^6/uL (4.35-5.55); RED CELL DISTRIBUTION WIDTH 18.9 % (11.5-14.0); WHITE BLOOD COUNT 10.9 10^3/uL (4.0-10.5)
--- NOTE | 2018-04-15 20:08 | PROGRESS NOTE E ---
Progress Note NAME: CHESTER MCKEON : 1980 AGE: 38Y DATE: 04/15/2018 ROOM: 324 SUBJECTIVE: This morning the patient has been received from the intensive care unit. [facility]-Synephrine has just been discontinued. Patient has been tachycardic And yet again hypotensive. Stat 1 L boluses been given. The patient was Reevaluated after infusion with improvement. The patient is lying in bed. He states that he feels a little better now than when he came in. The patient remains nauseous, but has not had any vomiting. Denies any shortness of breath, dizziness, or chest pain. The patient has been afebrile. His blood pressure has been in acceptable range and the patient does not voice any other concerns at this time. REVIEW OF SYSTEMS: The rest of the review of systems is negative. MEDICATIONS: Medications have been reviewed. OBJECTIVE: GENERAL: The patient is a 38-year-old -[place] male who is awake, alert. He is oriented to person, place, time, and situation. He does not appear to be in any acute distress. VITAL SIGNS: Temperature 99.9, pulse 113, respirations 16, blood pressure 102/73, oxygen saturation 100% on room air. SKIN: Warm and dry. No rashes, not diaphoretic. HEENT: Pupils equal, round, and reactive to light and accommodation. NECK: Supple. No evidence of JVP. CVS: Heart is regular. There is no rub. CHEST: Clear, symmetrical, unlabored. ABDOMEN: Nontender, nondistended. EXTREMITIES: No clubbing, cyanosis, or edema. PSYCHIATRIC: Appropriate affect. Pleasant mood. DIAGNOSTICS/LAB VALUES: Hematology obtained on 04/15/2018: WBC 14.7, hemoglobin 7.7, hematocrit 29.5, platelet count 320,000. Chemistry obtained on 04/15/2018: Sodium 138, potassium 4.3, chloride 105, carbon dioxide 22, BUN 48, creatinine 1.28, glucose 252, calcium 8.3, magnesium 2.2, albumin 2.3. ASSESSMENT AND PLAN: 1. ACUTE ON CHRONIC PANCREATITIS. Will continue intravenous fluid resuscitation as well as pain management. Continue to supplement his pancreatic enzymes and follow. 2. ACUTE KIDNEY INJURY. This appears to be improved with hydration. Will repeat chemistry in the a.m. and follow. 3. ACUTE UPPER GASTROINTESTINAL BLEEDING. The patient has received transfusion. No further evidence of bleeding. 4. DIABETES MELLITUS TYPE 1, POORLY CONTROLLED. The patient is covered with sliding scale insulin. Additionally, will resume the patient's basal. DISPOSITION: The patient is a full code. Depending on the patient's symptomatology and diagnostic findings, will reevaluate in the a.m. Time spent on this critical care including assessment, plan, physical examination, patient education, and review of records is 60 minutes. DICTATING PHYSICIAN: YESICA SALAZAR NP [id number] PHY#: [id number] ID: [id number] JOB#: [id number] ACCT: [id number] cc: > MTDD
[2018-04-15] MEDS: INSULIN GLARGINE,HUM.REC.ANLOG 300 UNIT/3 ML INSULN.PEN SUBCUT SCH (21:49)
[2018-04-16 00:57] LABS: HEMATOCRIT 23.7 % (37.9-51.0); MEAN CORPUSCULAR HEMOGLOBIN 26.8 pg (27.0-33.4); MEAN CORPUSCULAR VOLUME 81 fl (80-97); PLATELET COUNT 180 10^3/uL (150-450); RED BLOOD COUNT 2.91 10^6/uL (4.35-5.55); RED CELL DISTRIBUTION WIDTH 19.1 % (11.5-14.0)
[2018-04-16 00:58] LABS: HEMOGLOBIN 7.8 g/dL (13.5-17.0)
[2018-04-16] MEDS: PROMETHAZINE HCL INJ 25 MG/1 ML VIAL IV PRN (03:27)
[2018-04-16] MEDS: MORPHINE SULFATE 10 MG/ML INJ IV PRN ×3 (03:27→12:40)
[2018-04-16] MEDS: HEPARIN SOD (PORCINE) 5,000 UNIT/ML 1 ML SYRINGE SUBCUT SCH ×3 (05:02→21:58)
[2018-04-16 08:01] LABS: ABSOLUTE EOSINOPHILS # (AUTO) 0.2 10^3/uL (0.0-0.6); ABSOLUTE LYMPHOCYTES (AUTO) 2.1 10^3/uL (0.5-4.7); ABSOLUTE MONOCYTES (AUTO) 0.8 10^3/uL (0.1-1.4); ABSOLUTE NEUT (AUTO) 4.7 10^3/uL (1.7-8.2); BASOPHILS % (AUTO) 0.5 % (0-2); EOSINOPHILS % (AUTO) 2.5 % (0-6); HEMATOCRIT 26.8 % (37.9-51.0); HEMOGLOBIN 9.2 g/dL (13.5-17.0); LYMPHOCYTES % (AUTO) 26.4 % (13-45); MEAN CORPUSCULAR HEMOGLOBIN 27.5 pg (27.0-33.4); MEAN CORPUSCULAR HGB CONC 34.3 g/dL (32.0-36.0); MEAN CORPUSCULAR VOLUME 80 fl (80-97); MONOCYTES % (AUTO) 10.4 % (3-13); PLATELET COUNT 174 10^3/uL (150-450); RED BLOOD COUNT 3.34 10^6/uL (4.35-5.55); RED CELL DISTRIBUTION WIDTH 18.3 % (11.5-14.0); SEGMENTED NEUTROPHILS % (AUTO) 60.2 % (42-78); TOTAL CELLS COUNTED % (AUTO) 100 %; WHITE BLOOD COUNT 7.8 10^3/uL (4.0-10.5)
[2018-04-16] MEDS: METOCLOPRAMIDE HCL INJ/PF 10 MG/2 ML SDV IV SCH ×4 (08:13→22:00)
[2018-04-16] MEDS: LIPASE/PROTEASE/AMYLASE 1 CAP CAPSULE.DR PO SCH ×3 (08:14→17:04)
[2018-04-16] MEDS: INSULIN REG, HUMAN 100 UNIT/ML 3 ML VIAL (PYX) SUBCUT PRN ×2 (08:14→12:33)
[2018-04-16] MEDS: SUCRALFATE SUSP 1 GM/10 ML UDCUP PO SCH ×2 (08:14→12:33)
[2018-04-16 08:16] LABS: ANION GAP 7 (5-19); CALCIUM 8.5 mg/dL (8.4-10.2); CARBON DIOXIDE 22 mmol/L (22-30); CHLORIDE 103 mmol/L (98-107); GLUCOSE 227 mg/dL (75-110); LIPASE 347.9 U/L (23-300); POTASSIUM 3.6 mmol/L (3.6-5.0); SODIUM 132.3 mmol/L (137-145)
[2018-04-16 08:21] LABS: AMYLASE < 30 U/L (30-110); BLOOD UREA NITROGEN 22 mg/dL (7-20)
[2018-04-16] MEDS: DOCUSATE SODIUM 100 MG CAPSULE PO SCH ×2 (10:41→17:04)
[2018-04-16] MEDS: PANTOPRAZOLE SODIUM 40 MG VIAL IV SCH ×2 (11:00→21:59)
[2018-04-16] MEDS ORDERED: LACTOBACILLUS ACIDOPHILUS 250 MG TAB PO ONE (13:50)
--- NOTE | 2018-04-16 15:53 | PROGRESS NOTE E ---
Progress Note NAME: CHESTER MCKEON : 1980 AGE: 38Y DATE: 04/16/2018 ROOM: 324 SUBJECTIVE: The patient is currently sitting on the side of the bed. The patient is asking for something different for pain, citing that the morphine is too strong. The patient denies any vomiting, but does admit to nausea. Has had some diarrhea, which is intermittent for him. The patient has been afebrile. His blood pressures have been in acceptable range and the patient has not voiced any other concerns at this time. REVIEW OF SYSTEMS: The rest of the review of systems is negative. MEDICATIONS: Reviewed. OBJECTIVE: GENERAL: The patient is a 38-year-old -Thai male, who is awake, alert and oriented to person, place, time and situation. He is verbal, conversational and does not appear to be in distress. VITAL SIGNS: Temperature is 98.4, pulse 75, respirations 18, blood pressure is 105/54, oxygen saturation 100% on room air. SKIN: Warm and dry. No rash. He is not diaphoretic. HEENT: Pupils equal, round, reactive to light and accommodation. Conjunctivae are pink. No evidence of JVP. CVS: Heart is regular. No murmur or rub. CHEST: Clear to auscultation, unlabored. ABDOMEN: Soft, nontender. EXTREMITIES: There is no edema. PSYCHIATRIC: Appropriate affect. DIAGNOSTICS: Lab values are as follows: Hematology obtained on 04/16/2018: WBCs are 10.8, hemoglobin is 10.2, hematocrit is 26.8, platelet count is 174,000. Chemistry obtained on 04/16/2018: Sodium is 132, potassium 2.6, chloride is 130, carbon dioxide is 22, BUN 22, creatinine is 0.94, glucose 227, calcium is 8.5, magnesium is 1.9. Lipase is 347. IMPRESSION AND PLAN: 1. ACUTE ON CHRONIC PANCREATITIS. Will continue current interventions. The patient's symptoms have continued to improve. He is supplementing pancreatic enzymes. Will follow. 2. ACUTE KIDNEY INJURY. This improved with hydration. Will follow chemistries in the a.m. 3. ACUTE UPPER GI BLEEDING. The patient did receive a transfusion x2. He has had no further episodes of bleeding. 4. DIABETES MELLITUS TYPE 1, POORLY CONTROLLED. Patient has been covered with sliding scale insulin and I resumed his basal. DISPOSITION: The patient is a FULL CODE. Pending patient's symptomatology and diagnostic findings, will reevaluate in the a.m. Time spent on this followup, including assessment, plan, physical examination, patient education and review of records is 25 minutes. DICTATING PHYSICIAN: YESICA SALAZAR NP [id number] PHY#: [id number] ID: [id number] JOB#: [id number] ACCT: [id number] cc: >
[2018-04-16] MEDS: NORMAL SALINE 1000 ML 1,000 ML IV PRN (15:54)
[2018-04-16] MEDS: LACTOBACILLUS ACIDOPHILUS 250 MG TAB PO SCH (17:04)
[2018-04-16] MEDS: OXYCODONE HCL IR 5 MG TABLET PO PRN ×2 (17:04→22:00)
[2018-04-16] MEDS: INSULIN GLARGINE,HUM.REC.ANLOG 300 UNIT/3 ML INSULN.PEN SUBCUT SCH (22:00)
[2018-04-17] MEDS: NORMAL SALINE 1000 ML 1,000 ML IV PRN ×3 (03:20→20:07)
[2018-04-17] MEDS: OXYCODONE HCL IR 5 MG TABLET PO PRN ×4 (03:20→20:03)
[2018-04-17] MEDS: HEPARIN SOD (PORCINE) 5,000 UNIT/ML 1 ML SYRINGE SUBCUT SCH ×3 (05:02→21:31)
[2018-04-17 06:50] LABS: ABSOLUTE EOSINOPHILS # (AUTO) 0.1 10^3/uL (0.0-0.6); ABSOLUTE LYMPHOCYTES (AUTO) 1.1 10^3/uL (0.5-4.7); ABSOLUTE MONOCYTES (AUTO) 0.7 10^3/uL (0.1-1.4); ABSOLUTE NEUT (AUTO) 5.9 10^3/uL (1.7-8.2); BASOPHILS % (AUTO) 0.3 % (0-2); EOSINOPHILS % (AUTO) 1.4 % (0-6); HEMATOCRIT 26.4 % (37.9-51.0); HEMOGLOBIN 8.9 g/dL (13.5-17.0); LYMPHOCYTES % (AUTO) 14.3 % (13-45); MEAN CORPUSCULAR HEMOGLOBIN 27.3 pg (27.0-33.4); MEAN CORPUSCULAR HGB CONC 33.8 g/dL (32.0-36.0); MEAN CORPUSCULAR VOLUME 81 fl (80-97); MONOCYTES % (AUTO) 8.7 % (3-13); PLATELET COUNT 158 10^3/uL (150-450); RED BLOOD COUNT 3.26 10^6/uL (4.35-5.55); RED CELL DISTRIBUTION WIDTH 18.4 % (11.5-14.0); SEGMENTED NEUTROPHILS % (AUTO) 75.3 % (42-78); TOTAL CELLS COUNTED % (AUTO) 100 %; WHITE BLOOD COUNT 7.8 10^3/uL (4.0-10.5)
[2018-04-17 07:24] LABS: ANION GAP 9 (5-19); BLOOD UREA NITROGEN 11 mg/dL (7-20); CALCIUM 8.3 mg/dL (8.4-10.2); CARBON DIOXIDE 19 mmol/L (22-30); CHLORIDE 108 mmol/L (98-107); GLUCOSE 125 mg/dL (75-110); LIPASE 598.2 U/L (23-300); POTASSIUM 3.3 mmol/L (3.6-5.0); SODIUM 135.8 mmol/L (137-145)
[2018-04-17 07:30] LABS: ANISOCYTOSIS 1+; POIKILOCYTOSIS 1+; POLYCHROMASIA SLIGHT
[2018-04-17 07:31] LABS: OVALOCYTES 1+; PLATELET COMMENT ADEQUATE
[2018-04-17] MEDS: PROMETHAZINE HCL INJ 25 MG/1 ML VIAL IV PRN ×3 (07:35→20:02)
[2018-04-17] MEDS: LIPASE/PROTEASE/AMYLASE 1 CAP CAPSULE.DR PO SCH ×3 (07:37→17:30)
[2018-04-17] MEDS: METOCLOPRAMIDE HCL INJ/PF 10 MG/2 ML SDV IV SCH ×4 (07:37→21:38)
[2018-04-17] MEDS: LACTOBACILLUS ACIDOPHILUS 250 MG TAB PO SCH ×2 (09:45→17:29)
[2018-04-17] MEDS: DOCUSATE SODIUM 100 MG CAPSULE PO SCH ×2 (09:45→17:30)
[2018-04-17] MEDS: PANTOPRAZOLE SODIUM 40 MG VIAL IV SCH (09:45)
[2018-04-17] MEDS ORDERED: POTASSIUM CHLORIDE 10 MEQ CAPSULE.ER PO ONE (12:00)
[2018-04-17] MEDS: LANSOPRAZOLE 30 MG TAB.RAP.DR PO SCH (17:29)
[2018-04-17] MEDS ORDERED: AMPICILLIN SODIUM/SULBACTAM NA 3 GM in NORMAL SALINE 100 ML IV SCH (18:00)
--- NOTE | 2018-04-17 18:49 | RADIOLOGY REPORT (SQ) ---
EXAM DESCRIPTION: CHEST 2 VIEWS COMPLETED DATE/TIME: 04/17/2018 5:14 pm REASON FOR STUDY: Fever COMPARISON: 01/12/2018. EXAM PARAMETERS: NUMBER OF VIEWS: two views TECHNIQUE: Digital Frontal and Lateral radiographic views of the chest acquired. RADIATION DOSE: NA LIMITATIONS: none FINDINGS: LUNGS AND PLEURA: No opacities, masses or pneumothorax. No pleural effusion. MEDIASTINUM AND HILAR STRUCTURES: No masses or contour abnormalities. HEART AND VASCULAR STRUCTURES: Heart normal size. No evidence for failure. BONES: No acute findings. HARDWARE: None in the chest. OTHER: No other significant finding. IMPRESSION: NO ACUTE RADIOGRAPHIC FINDING IN THE CHEST. TECHNICAL DOCUMENTATION: JOB ID: [id number] [employer]- All Rights Reserved Reading location - IP/workstation name: [email or web address]
[2018-04-17] MEDS: AMPICILLIN SODIUM/SULBACTAM NA 3 GM in NORMAL SALINE 100 ML IV SCH (20:04)
--- NOTE | 2018-04-17 20:38 | PROGRESS NOTE E ---
Progress Note NAME: CHESTER MCKEON : 1980 AGE: 38Y DATE: 04/17/2018 ROOM: 324 SUBJECTIVE: The patient is currently lying in bed. He states that he feels a little better today. The patient has asked for more substantial foods. Would like to try a soft diet. The patient denies any actual vomiting but does admit to some nausea. No shortness of breath, dizziness, chest pain. No fevers, chills. The patient has been afebrile. His blood pressures have been in a good range and the patient does not voice any other concerns at this time. BRIEF HISTORY: The patient is a 38-year-old -Russian male that is well-known to the hospitalist service. The patient presented to the emergency department due to nausea, vomiting, and coffee ground emesis. The patient is known to have upper GI bleeds in the past and has had previous EGDs. The patient has had no further episodes of being treated with antiemetics as well as PPI therapy. The patient did require a total of 2 units of packed red blood cells, but he does have some chronic anemia as well. The patient who normally has issues with DKA has had reasonable glucose control during this admission. However, his blood sugars are labile due to *------* and eating. The patient does have a history of chronic pancreatitis and appears to have some acute on chronic pancreatitis, which he is slowly improving. REVIEW OF SYSTEMS: The rest of the review of systems is negative. MEDICATIONS: Have been reviewed. OBJECTIVE: GENERAL: The patient is a 38-year-old -Russian male who is awake, alert, and oriented to person, time, place, situation. He is verbal, conversational. Does not appear to be in any acute distress. VITAL SIGNS: Temperature is 99, pulse 104, respirations 16, blood pressure is 125/84, oxygen saturation is 100% on room air. SKIN: Warm and dry. No rash. He is not diaphoretic. HEENT: Pupils equal, round, and reactive to light and accommodation. Conjunctivae are pink. No evidence of JVP. CARDIOVASCULAR: Heart is regular. There is no murmur or rub. CHEST: Clear, symmetrical, unlabored. ABDOMEN: Soft, nontender, nondistended. BACK: No CVA tenderness or sacral edema. EXTREMITIES: No clubbing, cyanosis, or edema. DIAGNOSTICS: Lab values are as follows - hematology obtained on 04/17/2018; WBC is 7.8, hemoglobin is 8.9, hematocrit is 26.4, platelet count is 158,000. Chemistry obtained on 04/17/2018; sodium is 135, potassium 3.5, chloride 108, carbon dioxide 19, BUN 11, creatinine is *------*, glucose 125, calcium is 8.3, magnesium is 1.8, lipase is 598.2. IMPRESSION AND PLAN: 1. ACUTE ON CHRONIC PANCREATITIS. The patient appears to have improving symptoms. His appetite is improving. We will continue to supplement his pancreatic enzymes and slowly advance diet and see how this works. 2. ACUTE KIDNEY INJURY IMPROVED WITH HYDRATION. We will repeat chemistries in the a.m. 3. DIABETES MELLITUS TYPE 1, POORLY CONTROLLED. The patient's blood sugars have been labile, but we will monitor closely. 4. ACUTE UPPER GI BLEED. The patient did receive transfusion x2. The patient has had no further episodes of bleeding since presentation. He has a long history of this and has been scoped a couple of times in the past. CODE STATUS: The patient is a full code. DISPOSITION: Depending on the patient's symptomatology and diagnostic findings will reevaluate in the a.m. for potential discharge. TIME SPENT: On this follow up, including assessment and plan, physical examination, patient education ,and review of records is 10 minutes. ADDENDUM: I was notified by nursing staff that the patient's temperature was greater than 101.5. This is a new occurrence. Will repeat the patient's blood cultures, obtain a chest x-ray, as well as urine. The patient does have evidence of chills, but is not having shaking rigors. Given the patient has had significant vomiting recently will cover for aspiration empirically and await cultures. Time spent on this additional follow up is an additional 10 minutes. DICTATING PHYSICIAN: YESICA SALAZAR NP [id number] PHY#: [id number] ID: [id number] JOB#: [id number] ACCT: [id number] cc: >
[2018-04-17] MEDS: INSULIN GLARGINE,HUM.REC.ANLOG 300 UNIT/3 ML INSULN.PEN SUBCUT SCH (21:42)
[2018-04-17] MEDS: INSULIN REG, HUMAN 100 UNIT/ML 3 ML VIAL (PYX) SUBCUT PRN (22:33)
[2018-04-18] MEDS: AMPICILLIN SODIUM/SULBACTAM NA 3 GM in NORMAL SALINE 100 ML IV SCH ×2 (02:27→10:37)
[2018-04-18] MEDS: OXYCODONE HCL IR 5 MG TABLET PO PRN ×2 (04:18→10:19)
[2018-04-18] MEDS: PROMETHAZINE HCL INJ 25 MG/1 ML VIAL IV PRN ×2 (04:18→07:40)
[2018-04-18] MEDS: HEPARIN SOD (PORCINE) 5,000 UNIT/ML 1 ML SYRINGE SUBCUT SCH (05:08)
[2018-04-18] MEDS: LANSOPRAZOLE 30 MG TAB.RAP.DR PO SCH (05:11)
[2018-04-18 06:06] LABS: ABSOLUTE BASOPHILS # (AUTO) 0.1 10^3/uL (0.0-0.2); ABSOLUTE EOSINOPHILS # (AUTO) 0.1 10^3/uL (0.0-0.6); ABSOLUTE LYMPHOCYTES (AUTO) 1.5 10^3/uL (0.5-4.7); ABSOLUTE MONOCYTES (AUTO) 1.1 10^3/uL (0.1-1.4); ABSOLUTE NEUT (AUTO) 6.5 10^3/uL (1.7-8.2); BASOPHILS % (AUTO) 0.6 % (0-2); EOSINOPHILS % (AUTO) 1.1 % (0-6); HEMOGLOBIN 8.6 g/dL (13.5-17.0); LYMPHOCYTES % (AUTO) 15.9 % (13-45); MEAN CORPUSCULAR HGB CONC 33.2 g/dL (32.0-36.0); MEAN CORPUSCULAR VOLUME 81 fl (80-97); PLATELET COUNT 199 10^3/uL (150-450); RED BLOOD COUNT 3.19 10^6/uL (4.35-5.55); RED CELL DISTRIBUTION WIDTH 18.9 % (11.5-14.0); SEGMENTED NEUTROPHILS % (AUTO) 70.4 % (42-78); TOTAL CELLS COUNTED % (AUTO) 100 %; WHITE BLOOD COUNT 9.2 10^3/uL (4.0-10.5)
[2018-04-18 06:25] LABS: ANION GAP 6 (5-19); BLOOD UREA NITROGEN 11 mg/dL (7-20); CALCIUM 8.1 mg/dL (8.4-10.2); CARBON DIOXIDE 17 mmol/L (22-30); CHLORIDE 113 mmol/L (98-107); GLUCOSE 139 mg/dL (75-110); POTASSIUM 3.8 mmol/L (3.6-5.0)
[2018-04-18] MEDS: LIPASE/PROTEASE/AMYLASE 1 CAP CAPSULE.DR PO SCH (10:16)
[2018-04-18] MEDS: METOCLOPRAMIDE HCL INJ/PF 10 MG/2 ML SDV IV SCH ×2 (10:17→10:20)
[2018-04-18] MEDS: LACTOBACILLUS ACIDOPHILUS 250 MG TAB PO SCH (10:19)
[2018-04-18] MEDS: DOCUSATE SODIUM 100 MG CAPSULE PO SCH (10:22)
--- NOTE | 2018-04-18 10:55 | PDOC DISCHARGE SUMMARY ---
General - Admit/Disc Date/PCP Admission Date/Primary Care Provider: 04/15/18 01:07 Discharge Date: 04/18/18 - Discharge Diagnosis (1) Acute on chronic blood loss anemia Is this a current diagnosis for this admission?: Yes Summary: Due to upper GI bleeding (2) Acute kidney injury Is this a current diagnosis for this admission?: Yes (3) Acute on chronic pancreatitis Is this a current diagnosis for this admission?: Yes (4) Type 1 diabetes mellitus Is this a current diagnosis for this admission?: Yes (5) History of polysubstance abuse Is this a current diagnosis for this admission?: Yes (6) History of alcohol abuse Is this a current diagnosis for this admission?: No - Additional Information Resuscitation Status: Full Code Home Medications: Insulin Lispro [Humalog Insulin (Lispro) 100 unit/mL] 0 - 12 unit SUBCUT ACHS #1 vial 01/14/18 Insulin Glargine,Hum.rec.anlog [Lantus Insulin Inj 300 Unit/3 ml Pen] 30 unit SUBCUT QHS 04/15/18 History of Present Illness History of Present Illness: CHESTER MCKEON is a 38 year old male who presents to the emergency room with a one-week history of nausea and vomiting. He admits that he began having nausea and vomiting approximately 1 week prior to his admission with gradually worsening symptoms to the point where he can no longer tolerate any oral intake of either liquid or solids. His retching is become severe and continues even though his stomach is empty. He is having severe associated epigastric cramping pain with the vomiting and retching episodes. Additionally he complains of a constant underlying severe pressure in the epigastric region into his back consistent with his history of chronic pancreatitis with an acute flare. He also indicates that he is noted coffee-ground material present in some of the emesis over the course of the last week. He has numerous prior similar episodes related to his chronic pancreatitis and acute diabetic ketoacidosis. He has not identified any other aggravating or ameliorating factors for his nausea and vomiting. In the emergency room he was found to be dehydrated and tachycardic with acute kidney injury and moderate hyperglycemia without diabetic k etoacidosis. With these findings patient was admitted to the [facility] for further evaluation and treatment. Hospital Course Hospital Course: This is a 38 years old black male patient admitted with chief complaint of nausea, vomiting and abdominal pain of one week duration. Of note patient has history of chronic pancreatitis. Patient claimed he is sober for the last 1 year. Patient endorses coffee-ground vomiting. Of note also patient has history of chronic anemia due to upper GI bleeding and he has had multiple EGDs in this hospital and at [facility]. Patient has been managed accordingly with 2 units of packed RBC, cautious hydration and pain management. This morning I seen patient resting in bed comfortably. He reports he has still mild abdominal pain but is able to eat his breakfast and he tolerates well. His vital signs and blood works are relatively stable and patient is good to go. Physical Exam Vital Signs: Temp Pulse Resp BP Pulse Ox 98.6 F 92 12 100/55 L 100 04/18/18 03:19 04/18/18 03:19 04/18/18 03:19 04/18/18 03:19 04/18/18 03:19 Intake & Output 04/17/18 04/18/18 04/19/18 06:59 06:59 06:59 Intake Total 4364 Output Total Balance 4364 Weight 65.3 kg General appearance: PRESENT: no acute distress Head exam: PRESENT: atraumatic Eye exam: PRESENT: conjunctiva pink Respiratory exam: PRESENT: clear to auscultation alfonso. ABSENT: rales, rhonchi, wheezes Cardiovascular exam: PRESENT: RRR. ABSENT: diastolic murmur, rubs, systolic murmur GI/Abdominal exam: PRESENT: normal bowel sounds, soft. ABSENT: distended, guarding, mass, organolmegaly, rebound, tenderness Rectal exam: PRESENT: deferred Extremities exam: PRESENT: full ROM. ABSENT: calf tenderness, clubbing, pedal edema Neurological exam: PRESENT: alert, awake Results Laboratory Results: 04/18/18 05:02 04/18/18 05:02 04/18/18 04/18/18 05:02 05:02 WBC 9.2 RBC 3.19 L Hgb 8.6 L Hct 26.0 L MCV 81 MCH 27.0 MCHC 33.2 RDW 18.9 H Plt Count 199 Seg Neutrophils % 70.4 Lymphocytes % 15.9 Monocytes % 12.0 Eosinophils % 1.1 Basophils % 0.6 Absolute Neutrophils 6.5 Absolute Lymphocytes 1.5 Absolute Monocytes 1.1 Absolute Eosinophils 0.1 Absolute Basophils 0.1 Sodium 136.0 L Potassium 3.8 Chloride 113 H Carbon Dioxide 17 L Anion Gap 6 BUN 11 Creatinine 0.97 Est GFR ( Amer) > 60 Est GFR (Non-Af Amer) > 60 Glucose 139 H Calcium 8.1 L Magnesium 1.8 Impressions: Foot X-Ray 04/15/18 00:00 IMPRESSION: NEGATIVE STUDY OF THE LEFT FOOT. NO RADIOGRAPHIC EVIDENCE OF ACUTE INJURY. Chest X-Ray 04/17/18 00:00 IMPRESSION: NO ACUTE RADIOGRAPHIC FINDING IN THE CHEST. Qualifiers - * PATIENT BEING DISCHARGED WITH ANY OF THE FOLLOWING DIAGNOSIS: No
[2018-04-18 13:09] VITALS: BP 120/65
== END 2018-04-18 13:34 | disposition home or self-care (01) | DRG 811 ==
LOC: ER 20:51 → EH 04-15 01:07 → ICU 04-15 04:26 → 3W 04-15 08:15
PROVIDERS: ADMIT Emergency Medicine; ATTEND Emergency Medicine
PROC: 30233N1 Transfusion of Nonautologous Red Blood Cells into Peripheral Vein, Percutaneous Approach (ICD-10-PCS; principal; 2018-04-15)
DX: D62 Acute posthemorrhagic anemia (principal); K85.90 Acute pancreatitis without necrosis or infection, unspecified; N17.9 Acute kidney failure, unspecified; K86.1 Other chronic pancreatitis; K92.2 Gastrointestinal hemorrhage, unspecified; D64.9 Anemia, unspecified; K21.9 Gastro-esophageal reflux disease without esophagitis; E10.65 Type 1 diabetes mellitus with hyperglycemia; E86.0 Dehydration; F12.10 Cannabis abuse, uncomplicated; F14.10 Cocaine abuse, uncomplicated; F17.210 Nicotine dependence, cigarettes, uncomplicated; Z91.14 Patient's other noncompliance with medication regimen; Z79.4 Long term (current) use of insulin; Z79.899 Other long term (current) drug therapy
CPT/HCPCS: 36415; 36430; 71046; 80048; 80053; 81001; 82040; 82150; 82803; 82962; 83690; 83735; 85025; 85027; 86850; 86900; 86901; 86920; 87040; 96361; 96374; 99285; J0295; J1644; J1815; J2270; J2370; J2550; J2765; J3010; J3490; J7030; J7060; J7120; P9016; S0164

== ENCOUNTER 2018-04-20 07:17 | Inpatient (IN) | payer SELFPAY ==
--- NOTE | 2018-04-20 07:45 | EKG REPORT ---
SEVERITY:- BORDERLINE ECG - SINUS RHYTHM BORDERLINE T ABNORMALITIES, ANT-LAT LEADS : Confirmed by: Juan Pablo Holm MD 20-Apr-2018 07:44:57
[2018-04-20] MEDS: RINGERS SOLUTION,LACTATED 1,000 ML IV PRN ×2 (08:22→09:29)
[2018-04-20 08:41] LABS: ABSOLUTE BASOPHILS # (AUTO) 0.1 10^3/uL (0.0-0.2); ABSOLUTE EOSINOPHILS # (AUTO) 0.2 10^3/uL (0.0-0.6); ABSOLUTE LYMPHOCYTES (AUTO) 1.2 10^3/uL (0.5-4.7); ABSOLUTE MONOCYTES (AUTO) 0.8 10^3/uL (0.1-1.4); ABSOLUTE NEUT (AUTO) 8.5 10^3/uL (1.7-8.2); BASOPHILS % (AUTO) 1.1 % (0-2); EOSINOPHILS % (AUTO) 1.9 % (0-6); HEMOGLOBIN 9.7 g/dL (13.5-17.0); LYMPHOCYTES % (AUTO) 11.2 % (13-45); MEAN CORPUSCULAR HEMOGLOBIN 27.1 pg (27.0-33.4); MEAN CORPUSCULAR HGB CONC 31.4 g/dL (32.0-36.0); MONOCYTES % (AUTO) 7.2 % (3-13); PLATELET COUNT 339 10^3/uL (150-450); RED CELL DISTRIBUTION WIDTH 19.6 % (11.5-14.0); SEGMENTED NEUTROPHILS % (AUTO) 78.6 % (42-78); TOTAL CELLS COUNTED % (AUTO) 100 %; WHITE BLOOD COUNT 10.8 10^3/uL (4.0-10.5)
[2018-04-20 08:43] LABS: INTERNATIONAL RATION (INR) 0.86; PROTHROMBIN TIME 12.2 SEC (11.4-15.4)
[2018-04-20 08:45] LABS: APPEARANCE,URINE CLEAR; BILIRUBIN,URINE NEGATIVE (NEGATIVE); COLOR,URINE STRAW; GLUCOSE, URINE >=500 mg/dL (NEGATIVE); KETONES,URINE 20 mg/dL (NEGATIVE); LEUKOCYTE ESTERASE,URINE NEGATIVE (NEGATIVE); NITRITE,URINE NEGATIVE (NEGATIVE); PROTEIN,URINE NEGATIVE (NEGATIVE); URINE SPECIFIC GRAVITY 1.024; UROBILINOGEN,URINE NEGATIVE mg/dL (<2.0)
[2018-04-20 08:54] LABS: VENOUS BLOOD BASE EXCESS -14.3 mmol/L; VENOUS BLOOD HCO3 12.1 mmol/L (20-32); VENOUS BLOOD PH 7.22 (7.30-7.42)
[2018-04-20 08:59] LABS: ALANINE AMINOTRANSFERASE 29 U/L (21-72); ALBUMIN 2.9 g/dL (3.5-5.0); ALKALINE PHOSPHATASE 135 U/L (38-126); ANION GAP 14 (5-19); ASPARTATE AMINO TRANSFERASE 26 U/L (17-59); BILIRUBIN,DIRECT 0.2 mg/dL (0.0-0.4); BILIRUBIN,TOTAL 0.3 mg/dL (0.2-1.3); BLOOD UREA NITROGEN 16 mg/dL (7-20); CALCIUM 8.7 mg/dL (8.4-10.2); CARBON DIOXIDE 13 mmol/L (22-30); CHLORIDE 103 mmol/L (98-107); LIPASE 679.9 U/L (23-300); POTASSIUM 4.3 mmol/L (3.6-5.0); SODIUM 129.8 mmol/L (137-145); TOTAL PROTEIN 5.9 g/dL (6.3-8.2)
[2018-04-20 09:01] LABS: MEAN CORPUSCULAR VOLUME 86 fl (80-97)
[2018-04-20 09:05] LABS: URINE AMPHETAMINES SCREEN NEGATIVE; URINE BARBITURATES SCREEN NEGATIVE; URINE BENZODIAZEPINES SCREEN NEGATIVE; URINE COCAINE SCREEN UNCONFIRMED POSITIVE; URINE MARIJUANA (THC) SCREEN NEGATIVE; URINE METHADONE SCREEN NEGATIVE; URINE PHENCYCLIDINE SCREEN NEGATIVE
[2018-04-20 09:15] LABS: GLUCOSE 656 mg/dL (75-110)
[2018-04-20] MEDS ORDERED: INSULIN REG, HUMAN 100 UNIT/ML 3 ML VIAL (PYX) ONE (09:18)
[2018-04-20] MEDS ORDERED: DEXTROSE 40% GEL 15 GM TUBE PO PRN ×4 (10:01→10:53)
[2018-04-20] MEDS ORDERED: NORMAL SALINE 100 ML with INSULIN REGULAR, HUMAN 100 UNIT IV PRN ×2 (10:01)
[2018-04-20] MEDS ORDERED: GLUCAGON,HUMAN RECOMB 1 MG INJ IM PRN ×2 (10:01→10:53)
[2018-04-20] MEDS ORDERED: DEXTROSE 50%-WATER 25 GM/50 ML DISP.SYRIN IV PRN ×4 (10:01→10:53)
--- NOTE | 2018-04-20 10:04 | ER Document Report ---
ED General - General Chief Complaint: Abdominal Pain Stated Complaint: ABDOMINAL PAIN Time Seen by Provider: 04/20/18 07:55 TRAVEL OUTSIDE OF THE [place] IN LAST 30 DAYS: No - HPI Patient complains to provider of: Abdominal pain nausea vomiting Notes: Patient coming in for evaluation of nausea vomiting abdominal pain. Patient recently discharged after having DKA. Patient states is not having instances of leaving the hospitalist was [facility] however came to the ER instead. Patient denies any illicit drug abuse. Patient otherwise resting comfortably upon my evaluation with a blanket over his head. A brief review of the patient's past medical records available in [facility] was performed - Related Data Allergies/Adverse Reactions: ondansetron [From Zofran (as hydrochloride)] Allergy (Verified 04/20/18 07:23) Past Medical History - Social History Smoking Status: Former Smoker Chew tobacco use (# tins/day): No Frequency of alcohol use: None Drug Abuse: None Family History: DM, Hyperlipidemia, Hypertension Patient has suicidal ideation: No Patient has homicidal ideation: No - Past Medical History Cardiac Medical History: Reports: Hx Hypercholesterolemia, Hx Hypertension - Taken off medication for same. Denies: Hx Atrial Fibrillation, Hx Congestive Heart Failure, Hx Coronary Artery Disease, Hx Heart Attack, Hx Pulmonary Embolism Pulmonary Medical History: Denies: Hx Asthma, Hx COPD, Hx Sleep Apnea Neurological Medical History: Denies: Hx Migraine, Hx Seizures Endocrine Medical History: Reports: Hx Diabetes Mellitus Type 1, Hx Diabetes Jackie litus Type 2. Denies: Hx Hyperthyroidism, Hx Hypothyroidism Renal/ Medical History: Denies: Hx End Stage Renal Disease, Hx Peritoneal Dialysis GI Medical History: Reports: Hx Gastroesophageal Reflux Disease, Hx Pancreatitis, Hx Ulcer. Denies: Hx Cirrhosis, Hx Hepatitis Musculoskeletal Medical History: Denies Hx Arthritis, Denies Hx Fibromyalgia Skin Medical History: Denies Hx Eczema, Denies Hx Psoriasis Psychiatric Medical History: Reports: Hx Depression Infectious Medical History: Reports: Hx MRSA. 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 Denies: Hx Appendectomy, Hx Cholecystectomy, Hx Tonsillectomy - Immunizations Hx Diphtheria, Pertussis, Tetanus Vaccination: Yes Hx Pneumococcal Vaccination: 11/09/11 Review of Systems - Review of Systems Constitutional: No symptoms reported EENT: No symptoms reported Cardiovascular: No symptoms reported Respiratory: No symptoms reported Gastrointestinal: Abdominal pain, Nausea, Vomiting Genitourinary: No symptoms reported Male Genitourinary: No symptoms reported Musculoskeletal: No symptoms reported Skin: No symptoms reported Hematologic/Lymphatic: No symptoms reported Neurological/Psychological: No symptoms reported -: Yes All other systems reviewed and negative Physical Exam - Vital signs Vitals: Temp Pulse Resp BP Pulse Ox 97.6 F 99 14 94/56 L 100 04/20/18 07:21 04/20/18 07:21 04/20/18 07:21 04/20/18 07:21 04/20/18 07:21 Interpretation: Normal - General General appearance: Appears well, Alert - HEENT Head: Normocephalic, Atraumatic Eyes: Normal Pupils: PERRL - Respiratory Respiratory status: No respiratory distress Chest status: Nontender Breath sounds: Normal Chest palpation: Normal - Cardiovascular Rhythm: Regular Heart sounds: Normal auscultation Murmur: No - Abdominal Inspection: Normal Distension: No distension Bowel sounds: Normal Organomegaly: No organomegaly - Back Back: Normal, Nontender - Extremities General upper extremity: Normal inspection, Nontender, Normal color, Normal ROM, Normal temperature General lower extremity: Normal inspection, Nontender, Normal color, Normal ROM, Normal temperature, Normal weight bearing. No: Hailey's sign - Neurological Neuro grossly intact: Yes Cognition: Normal Orientation: AAOx4 Unruly Coma Scale Eye Opening: Spontaneous Unruly Coma Scale Verbal: Oriented Unruly Coma Scale Motor: Obeys Commands Malcolm Coma Scale Total: 15 Speech: Normal Motor strength normal: LUE, RUE, LLE, RLE Sensory: Normal - Psychological Associated symptoms: Normal affect, Normal mood - Skin Skin Temperature: Warm Skin Moisture: Dry Skin Color: Normal Course - Re-evaluation Re-evalutation: 04/20/18 14:26 Concern for elevated blood sugar and acidosis patient does not have got discussed with hospitalist will place the patient on a insulin drip patient will be discharged home. - Vital Signs Vital signs: Temp Pulse Resp BP Pulse Ox 97.6 F 99 14 124/85 100 04/20/18 07:21 04/20/18 07:21 04/20/18 12:01 04/20/18 12:01 04/20/18 12:01 - Laboratory Result Diagrams: 04/20/18 08:15 04/20/18 08:15 Laboratory results interpreted by me: 04/20/18 04/20/18 04/20/18 07:31 07:56 08:15 WBC 10.8 H RBC 3.60 L Hgb 9.7 L Hct 31.0 L MCHC 31.4 L RDW 19.6 H Seg Neutrophils % 78.6 H Lymphocytes % 11.2 L Absolute Neutrophils 8.5 H VBG pH VBG pCO2 VBG HCO3 Sodium Carbon Dioxide Glucose POC Glucose > 550 H* Alkaline Phosphatase Total Protein Albumin Lipase Urine Glucose (UA) >=500 H Urine Ketones 20 H 04/20/18 04/20/18 08:15 08:15 WBC RBC Hgb Hct MCHC RDW Seg Neutrophils % Lymphocytes % Absolute Neutrophils VBG pH 7.22 L VBG pCO2 30.0 L VBG HCO3 12.1 L Sodium 129.8 L Carbon Dioxide 13 L Glucose 656 H* POC Glucose Alkaline Phosphatase 135 H Total Protein 5.9 L Albumin 2.9 L Lipase 679.9 H Urine Glucose (UA) Urine Ketones Discharge - Discharge Clinical Impression: History of polysubstance abuse, Cocaine abuse, Nausea and vomiting, Metabolic acidosis Uncontrolled diabetes mellitus Qualifiers: Diabetes mellitus type: type 1 Condition: Good Disposition: ADMITTED INPATIENT Admitting Provider: Hospitalist - [facility] Unit Admitted: TANYA
--- NOTE | 2018-04-20 10:48 | PDOC H&P ---
History of Present Illness History of Present Illness: CHESTER MCKEON is a 38 year old black male patient who is a frequent flyer, and history of multiple hospitalization and past medical history of medical noncompliance, chronic blood loss anemia from upper GI bleeding uncontrolled diabetes mellitus alcohol abuse, tobacco dependence and polysubstance abuse with chief complaint of abdominal pain. Of note patient discharged from this hospital 48 hours ago. His initial blood work shows hyperglycemia with blood sugar of 656 and metabolic acidosis and his urine toxicology is positive for cocaine. Patient supposed to get his insulin from [facility] but he failed to procure. Past Medical History Cardiac Medical History: Reports: Hyperlipidema, Hypertension - Taken off medication for same. Denies: Atrial Fibrillation, Congestive Heart Failure, Coronary Artery Disease, Myocardial Infarction, Pulmonary Embolism Pulmonary Medical History: Denies: Asthma, Chronic Obstructive Pulmonary Disease (COPD), Sleep Apnea Neurological Medical History: Denies: Migraine, Seizures Endocrine Medical History: Reports: Diabetes Mellitus Type 1, Diabetes Mellitus Type 2 Denies: Hyperthyroidism, Hypothyroidism Renal/ Medical History: Denies: End Stage Renal Disease GI Medical History: Reports: Gastroesophageal Reflux Disease Denies: Cirrhosis, Hepatitis Musculoskeltal Medical History: Denies: Arthritis, Fibromyalgia Skin Medical History: Denies: Eczema, Psoriasis Psychiatric Medical History: Reports: Depression Hematology: Reports: Anemia - Chronic illnesses Denies: Bleeding Tendencies Infectious Medical History: Reports: Methicillin-Resistant Staph Aureus Denies: Clostridium Difficile Past Surgical History Past Surgical History: Reports: Orthopedic Surgery - back, left long finger PIP disarticulation, now s/p right hand I and D Denies: Appendectomy, Cholecystectomy, Tonsillectomy Social History Smoking Status: Former Smoker Frequency of Alcohol Use: None Hx Recreational Drug Use: Yes Drugs: Marijuana Hx Prescription Drug Abuse: No - Advance Directive Resuscitation Status: Full Code Family History Family History: DM, Hyperlipidemia, Hypertension Parental Family History Reviewed: Yes Children Family History Reviewed: Yes Sibling(s) Family History Reviewed.: Yes Medication/Allergy Home Medications: Insulin Lispro [Humalog Insulin (Lispro) 100 unit/mL] 0 - 12 unit SUBCUT ACHS #1 vial 01/14/18 Insulin Glargine,Hum.rec.anlog [Lantus Insulin 100 Unit/mL] 30 unit SUBCUT QHS 04/15/18 Ferrous Sulfate 324 mg PO BID #60 tablet. 04/18/18 Allergies/Adverse Reactions: ondansetron [From Zofran (as hydrochloride)] Allergy (Verified 04/20/18 07:23) Review of Systems Constitutional: PRESENT: as per HPI Eyes: PRESENT: as per HPI Nose, Mouth, and Throat: PRESENT: as per HPI Respiratory: PRESENT: as per HPI Gastrointestinal: PRESENT: as per HPI Musculoskeletal: PRESENT: as per HPI Neurological: PRESENT: as per HPI Psychiatric: PRESENT: as per HPI Physical Exam Vital Signs: Temp Pulse Resp BP Pulse Ox 97.6 F 99 14 94/56 L 100 04/20/18 07:21 04/20/18 07:21 04/20/18 07:21 04/20/18 07:21 04/20/18 07:21 Intake & Output 04/19/18 04/20/18 04/21/18 06:59 06:59 06:59 Intake Total 1000 Balance 1000 Weight 63.5 kg General appearance: PRESENT: no acute distress Head exam: PRESENT: atraumatic Eye exam: PRESENT: conjunctiva pink Mouth exam: PRESENT: dry mucosa Neck exam: ABSENT: carotid bruit, JVD, lymphadenopathy, thyromegaly GI/Abdominal exam: PRESENT: normal bowel sounds, soft. ABSENT: distended, guarding, mass, organolmegaly, rebound, tenderness Neurological exam: PRESENT: awake, oriented to time, oriented to situation Results Laboratory Results: 04/20/18 08:15 04/20/18 08:15 04/20/18 04/20/18 04/20/18 07:56 08:15 08:15 WBC 10.8 H RBC 3.60 L Hgb 9.7 L Hct 31.0 L MCV 86 D MCH 27.1 MCHC 31.4 L RDW 19.6 H Plt Count 339 Seg Neutrophils % 78.6 H Lymphocytes % 11.2 L Monocytes % 7.2 Eosinophils % 1.9 Basophils % 1.1 Absolute Neutrophils 8.5 H Absolute Lymphocytes 1.2 Absolute Monocytes 0.8 Absolute Eosinophils 0.2 Absolute Basophils 0.1 VBG pH VBG pCO2 VBG HCO3 VBG Base Excess Sodium 129.8 L Potassium 4.3 Chloride 103 Carbon Dioxide 13 L Anion Gap 14 BUN 16 Creatinine 1.21 Est GFR ( Amer) > 60 Est GFR (Non-Af Amer) > 60 Glucose 656 H* Lactic Acid Calcium 8.7 Total Bilirubin 0.3 AST 26 ALT 29 Alkaline Phosphatase 135 H Total Protein 5.9 L Albumin 2.9 L Lipase 679.9 H Urine Color STRAW Urine Appearance CLEAR Urine pH 5.0 Ur Specific [place] 1.024 Urine Protein NEGATIVE Urine Glucose (UA) >=500 H Urine Ketones 20 H Urine Blood NEGATIVE Urine Nitrite NEGATIVE Ur Leukocyte Esterase NEGATIVE Urine WBC (Auto) 6 Urine RBC (Auto) 4 04/20/18 04/20/18 08:15 08:15 WBC RBC Hgb Hct MCV MCH MCHC RDW Plt Count Seg Neutrophils % Lymphocytes % Monocytes % Eosinophils % Basophils % Absolute Neutrophils Absolute Lymphocytes Absolute Monocytes Absolute Eosinophils Absolute Basophils VBG pH 7.22 L VBG pCO2 30.0 L VBG HCO3 12.1 L VBG Base Excess -14.3 Sodium Potassium Chloride Carbon Dioxide Anion Gap BUN Creatinine Est GFR ( Amer) Est GFR (Non-Af Amer) Glucose Lactic Acid 0.8 Calcium Total Bilirubin AST ALT Alkaline Phosphatase Total Protein Albumin Lipase Urine Color Urine Appearance Urine pH Ur Specific [place] Urine Protein Urine Glucose (UA) Urine Ketones Urine Blood Urine Nitrite Ur Leukocyte Esterase Urine WBC (Auto) Urine RBC (Auto) Assessment & Plan - Diagnosis (1) Acute on chronic pancreatitis Is this a current diagnosis for this admission?: Yes Plan: We will cautiously hydrate him and control his pain. (2) Hyponatremia Is this a current diagnosis for this admission?: Yes Plan: Sodium 129. Hydration with normal saline will corrected. (3) DKA (diabetic ketoacidoses) Qualifiers: Diabetes mellitus type: type 1 Is this a current diagnosis for this admission?: Yes Plan: Patient has been started on insulin drip. (4) Uncontrolled diabetes mellitus Qualifiers: Diabetes mellitus type: type 1 Is this a current diagnosis for this admission?: Yes Plan: Patient is noncompliant with his medication and diet. We will reinforced diabetic education. (5) Polysubstance abuse Is this a current diagnosis for this admission?: Yes Plan: Patient states he smokes weed. Even though his urine toxicology is positive for cocaine patient denied adamantly using cocaine. He is encouraged and advised to quit using illicit drugs. (6) Chronic anemia Is this a current diagnosis for this admission?: Yes Plan: Patient has history of upper GI bleeding.
[2018-04-20] MEDS: NORMAL SALINE 1000 ML 1,000 ML IV PRN ×2 (12:49→17:05)
[2018-04-20] MEDS: INSULIN LISPRO 100 UNIT/ML 3 ML VIAL SUBCUT SCH ×2 (16:01→20:11)
[2018-04-20] MEDS ORDERED: PROMETHAZINE HCL INJ 25 MG/1 ML VIAL ONE (16:29)
[2018-04-20] MEDS: INSULIN, REGULAR 100 UNIT/100 ML NORMAL SALINE IV PRN ×2 (16:50)
[2018-04-20] MEDS: PROMETHAZINE HCL INJ 25 MG/1 ML VIAL IV PRN ×2 (16:59→23:10)
[2018-04-20] MEDS: ENOXAPARIN SODIUM INJ 40 MG/0.4 ML DISP.SYRIN SUBCUT SCH (19:32)
[2018-04-20] MEDS: OXYCODONE-ACETAMINOPHEN 5-325 MG TABLET PO PRN (20:10)
[2018-04-21] MEDS: INSULIN, REGULAR 100 UNIT/100 ML NORMAL SALINE IV PRN ×2 (01:01)
[2018-04-21] MEDS: NORMAL SALINE 1000 ML 1,000 ML IV PRN (01:02)
[2018-04-21] MEDS: OXYCODONE-ACETAMINOPHEN 5-325 MG TABLET PO PRN ×4 (02:35→23:31)
[2018-04-21 05:26] LABS: HEMOGLOBIN 8.8 g/dL (13.5-17.0); MEAN CORPUSCULAR HEMOGLOBIN 27.2 pg (27.0-33.4); MEAN CORPUSCULAR HGB CONC 33.9 g/dL (32.0-36.0); PLATELET COUNT 348 10^3/uL (150-450); RED BLOOD COUNT 3.24 10^6/uL (4.35-5.55); RED CELL DISTRIBUTION WIDTH 18.8 % (11.5-14.0); WHITE BLOOD COUNT 7.8 10^3/uL (4.0-10.5)
[2018-04-21 05:37] LABS: BLOOD UREA NITROGEN 12 mg/dL (7-20); CALCIUM 8.8 mg/dL (8.4-10.2); CARBON DIOXIDE 21 mmol/L (22-30); CHLORIDE 113 mmol/L (98-107); GLUCOSE 104 mg/dL (75-110); LIPASE 835.1 U/L (23-300); POTASSIUM 3.5 mmol/L (3.6-5.0); SODIUM 137.4 mmol/L (137-145)
[2018-04-21 05:57] LABS: ANION GAP 3 (5-19)
[2018-04-21 05:58] LABS: MEAN CORPUSCULAR VOLUME 80 fl (80-97)
[2018-04-21] MEDS ORDERED: POTASSI CL 20 MEQ/D5-1/2NS 1L 1,000 ML IV ONE (06:21)
[2018-04-21] MEDS ORDERED: POTASSIUM CHLORIDE 10 MEQ CAPSULE.ER PO ONE (06:22)
[2018-04-21] MEDS: POTASSI CL 20 MEQ/D5-1/2NS 1L 1000 ML IV PRN ×2 (06:34→23:32)
[2018-04-21] MEDS: POTASSI CL 20 MEQ/50 ML RIDER 20 MEQ/50 ML RTUPB IV SCH (09:05)
[2018-04-21] MEDS: ENOXAPARIN SODIUM INJ 40 MG/0.4 ML DISP.SYRIN SUBCUT SCH (09:05)
[2018-04-21] MEDS ORDERED: PROMETHAZINE HCL 25 MG TABLET ONE (09:06)
--- NOTE | 2018-04-21 09:25 | PDOC PROGRESS REPORT ---
Subjective Progress Note for:: 04/21/18 Subjective:: Patient seen resting in bed. He is awake alert oriented and he complains of abdominal pain and nausea for which she is getting Phenergan p.o. Last night he had an episode of hypoglycemia. The insulin drip discontinued and patient put on sq Lantus. He has elevated lipase even though patient denied vehemently that he is not drinking. Reason For Visit: ACUTE PANCREATITIS,DKA Physical Exam Vital Signs: Temp Pulse Resp BP Pulse Ox 98.1 F 81 16 114/65 100 04/21/18 08:19 04/21/18 08:19 04/21/18 08:19 04/21/18 08:19 04/21/18 08:19 Intake & Output 04/20/18 04/21/18 04/22/18 06:59 06:59 06:59 Intake Total 6414 933 Balance 6414 933 Weight 67 kg General appearance: PRESENT: mild distress Head exam: PRESENT: atraumatic, normocephalic Eye exam: PRESENT: conjunctiva pink Neck exam: ABSENT: carotid bruit, JVD, lymphadenopathy, thyromegaly Respiratory exam: PRESENT: clear to auscultation alfonso. ABSENT: rales, rhonchi, wheezes Cardiovascular exam: PRESENT: RRR. ABSENT: diastolic murmur, rubs, systolic murmur GI/Abdominal exam: PRESENT: normal bowel sounds, soft. ABSENT: distended, guarding, mass, organolmegaly, rebound, tenderness Neurological exam: PRESENT: alert, awake, oriented to time, oriented to situation Results Laboratory Results: 04/21/18 04:39 04/21/18 04:39 04/21/18 04/21/18 04:39 04:39 WBC 7.8 RBC 3.24 L Hgb 8.8 L Hct 26.0 L MCV 80 D MCH 27.2 MCHC 33.9 RDW 18.8 H Plt Count 348 Sodium 137.4 Potassium 3.5 L Chloride 113 H Carbon Dioxide 21 L Anion Gap 3 L BUN 12 Creatinine 0.85 Est GFR ( Amer) > 60 Est GFR (Non-Af Amer) > 60 Glucose 104 Calcium 8.8 Lipase 835.1 H Assessment & Plan - Diagnosis (1) Acute on chronic pancreatitis Is this a current diagnosis for this admission?: Yes Plan: We will cautiously hydrate him and control his pain. (2) Hyponatremia Is this a current diagnosis for this admission?: Yes Plan: Improving (3) DKA (diabetic ketoacidoses) Qualifiers: Diabetes mellitus type: type 1 Is this a current diagnosis for this admission?: Yes Plan: Resolved (4) Uncontrolled diabetes mellitus Qualifiers: Diabetes mellitus type: type 1 Is this a current diagnosis for this admission?: Yes Plan: Patient is noncompliant with his medication and diet. We will reinforced diabetic education. (5) Polysubstance abuse Is this a current diagnosis for this admission?: Yes Plan: Patient states he smokes weed. Even though his urine toxicology is positive for cocaine patient denied adamantly using cocaine. He is encouraged and advised to quit using illicit drugs. (6) Chronic anemia Is this a current diagnosis for this admission?: Yes Plan: His H&H is stable.
[2018-04-21] MEDS ORDERED: MORPHINE SULFATE 10 MG/ML INJ IV ONE (10:40)
[2018-04-21] MEDS: PROMETHAZINE HCL 25 MG TABLET PO PRN ×2 (15:55→23:31)
[2018-04-22 05:58] LABS: ANION GAP 8 (5-19); BLOOD UREA NITROGEN 14 mg/dL (7-20); CALCIUM 8.8 mg/dL (8.4-10.2); CARBON DIOXIDE 14 mmol/L (22-30); CHLORIDE 115 mmol/L (98-107); GLUCOSE 331 mg/dL (75-110); SODIUM 136.7 mmol/L (137-145)
[2018-04-22] MEDS ORDERED: INSULIN REG, HUMAN 100 UNIT/ML 3 ML VIAL (PYX) ONE (08:23)
[2018-04-22] MEDS: OXYCODONE-ACETAMINOPHEN 5-325 MG TABLET PO PRN ×3 (08:33→21:39)
[2018-04-22] MEDS: PROMETHAZINE HCL 25 MG TABLET PO PRN ×3 (08:33→21:40)
[2018-04-22] MEDS ORDERED: DEXTROSE 50%-WATER SYRINGE 25 GM/50 ML DOSE IV PRN ×2 (09:00→22:00)
[2018-04-22] MEDS ORDERED: DEXTROSE 40% GEL 15 GM TUBE PO PRN ×2 (09:00→22:00)
[2018-04-22] MEDS ORDERED: DEXTROSE 40% GEL 15 GM TUBE X 2 PO PRN ×2 (09:00→22:00)
[2018-04-22] MEDS ORDERED: GLUCAGON,HUMAN RECOMB 1 MG INJ IM PRN ×2 (09:00→22:00)
[2018-04-22] MEDS ORDERED: DEXTROSE 50%-WATER SYRINGE 12.5 GM/25 ML DOSE IV PRN ×2 (09:00→22:00)
[2018-04-22] MEDS: ENOXAPARIN SODIUM INJ 40 MG/0.4 ML DISP.SYRIN SUBCUT SCH (09:27)
--- NOTE | 2018-04-22 12:52 | PDOC PROGRESS REPORT ---
Subjective Progress Note for:: 04/22/18 Subjective:: Patient resting in bed. He is awake alert oriented. He reports he still is abdomen is hurting and asks for IV morphine as he had not to him he is on p.o. Percocet. I resumed his home Lantus 30 units SQ twice a day. If his blood sugar remained stable patient is a potential discharge for tomorrow. Reason For Visit: ACUTE PANCREATITIS,DKA Physical Exam Vital Signs: Temp Pulse Resp BP Pulse Ox 98.2 F 95 12 119/78 99 04/22/18 07:12 04/22/18 07:12 04/22/18 07:12 04/22/18 07:12 04/22/18 07:12 Intake & Output 04/21/18 04/22/18 04/23/18 06:59 06:59 06:59 Intake Total 6414 5706 Balance 6414 5706 Weight 67 kg 69.5 kg General appearance: PRESENT: no acute distress Head exam: PRESENT: atraumatic, normocephalic Neck exam: ABSENT: carotid bruit, JVD, lymphadenopathy, thyromegaly Respiratory exam: PRESENT: clear to auscultation alfonso. ABSENT: rales, rhonchi, wheezes Cardiovascular exam: PRESENT: RRR. ABSENT: diastolic murmur, rubs, systolic murmur GI/Abdominal exam: PRESENT: normal bowel sounds, soft. ABSENT: distended, guarding, mass, organolmegaly, rebound, tenderness Neurological exam: PRESENT: alert, awake, oriented to time, oriented to situat ion Results Laboratory Results: 04/21/18 04:39 04/22/18 04:32 04/22/18 04:32 Sodium 136.7 L Potassium 5.0 D Chloride 115 H Carbon Dioxide 14 L Anion Gap 8 BUN 14 Creatinine 0.81 Est GFR ( Amer) > 60 Est GFR (Non-Af Amer) > 60 Glucose 331 H Calcium 8.8 Lipase 836.0 H 04/20/18 07:56 Clean Catch Midstream Urine Culture - Final NO GROWTH 2 DAYS Assessment & Plan - Diagnosis (1) Acute on chronic pancreatitis Is this a current diagnosis for this admission?: Yes Plan: We will cautiously hydrate him and control his pain. (2) Hyponatremia Is this a current diagnosis for this admission?: Yes Plan: Improving (3) DKA (diabetic ketoacidoses) Qualifiers: Diabetes mellitus type: type 1 Is this a current diagnosis for this admission?: Yes Plan: Resolved (4) Uncontrolled diabetes mellitus Qualifiers: Diabetes mellitus type: type 1 Is this a current diagnosis for this admission?: Yes Plan: Patient is noncompliant with his medication and diet. We will reinforced diabetic education. (5) Polysubstance abuse Is this a current diagnosis for this admission?: Yes Plan: Patient states he smokes weed. Even though his urine toxicology is positive for cocaine patient denied adamantly using cocaine. He is encouraged and advised to quit using illicit drugs. (6) Chronic anemia Is this a current diagnosis for this admission?: Yes Plan: His H&H is stable.
[2018-04-22] MEDS ORDERED: INSULIN GLARGINE,HUM.REC.ANLOG 1,000 UNIT/10 ML VIAL (PYX) SUBCUT ONE ×2 (14:11→21:33)
[2018-04-22] MEDS: INSULIN REG, HUMAN 100 UNIT/ML 3 ML VIAL (PYX) SUBCUT SCH ×3 (14:37→21:35)
[2018-04-22] MEDS: INSULIN GLARGINE,HUM.REC.ANLOG 300 UNIT/3 ML INSULN.PEN SUBCUT SCH ×2 (15:01→21:36)
[2018-04-22] MEDS ORDERED: INSULIN, REGULAR 100 UNIT/100 ML NORMAL SALINE IV PRN ×2 (22:00)
[2018-04-22] MEDS ORDERED: NORMAL SALINE 1000 ML 2,000 ML IV ONE (22:15)
[2018-04-22] MEDS: POTASSI CL 20 MEQ/D5-1/2NS 1L 1000 ML IV PRN (23:36)
[2018-04-22 23:37] LABS: ALANINE AMINOTRANSFERASE 30 U/L (21-72); ALBUMIN 2.4 g/dL (3.5-5.0); ALKALINE PHOSPHATASE 97 U/L (38-126); ANION GAP 10 (5-19); ASPARTATE AMINO TRANSFERASE 75 U/L (17-59); BILIRUBIN,DIRECT 0.1 mg/dL (0.0-0.4); BILIRUBIN,TOTAL 0.1 mg/dL (0.2-1.3); BLOOD UREA NITROGEN 18 mg/dL (7-20); CALCIUM 8.9 mg/dL (8.4-10.2); CARBON DIOXIDE 15 mmol/L (22-30); CHLORIDE 112 mmol/L (98-107); GLUCOSE 184 mg/dL (75-110)
[2018-04-23 00:11] LABS: POTASSIUM 3.7 mmol/L (3.6-5.0)
[2018-04-23] MEDS: PROMETHAZINE HCL 25 MG TABLET PO PRN ×4 (03:55→23:03)
[2018-04-23] MEDS: OXYCODONE-ACETAMINOPHEN 5-325 MG TABLET PO PRN ×4 (03:55→23:02)
[2018-04-23] MEDS: POTASSI CL 20 MEQ/D5-1/2NS 1L 1000 ML IV PRN (05:53)
[2018-04-23 06:55] LABS: ANION GAP 8 (5-19); BLOOD UREA NITROGEN 18 mg/dL (7-20); CALCIUM 8.4 mg/dL (8.4-10.2); CARBON DIOXIDE 12 mmol/L (22-30); CHLORIDE 115 mmol/L (98-107); GLUCOSE 272 mg/dL (75-110); SODIUM 134.6 mmol/L (137-145)
[2018-04-23 07:29] LABS: POTASSIUM 5.1 mmol/L (3.6-5.0)
[2018-04-23] MEDS ORDERED: DEXTROSE 50%-WATER SYRINGE 12.5 GM/25 ML DOSE IV PRN (09:00)
[2018-04-23] MEDS ORDERED: DEXTROSE 40% GEL 15 GM TUBE PO PRN (09:00)
[2018-04-23] MEDS ORDERED: GLUCAGON,HUMAN RECOMB 1 MG INJ IM PRN (09:00)
[2018-04-23] MEDS ORDERED: DEXTROSE 50%-WATER SYRINGE 25 GM/50 ML DOSE IV PRN (09:00)
[2018-04-23] MEDS ORDERED: DEXTROSE 40% GEL 15 GM TUBE X 2 PO PRN (09:00)
[2018-04-23] MEDS: INSULIN GLARGINE,HUM.REC.ANLOG 300 UNIT/3 ML INSULN.PEN SUBCUT SCH ×2 (09:07→21:20)
[2018-04-23] MEDS: INSULIN REG, HUMAN 100 UNIT/ML 3 ML VIAL (PYX) SUBCUT SCH ×5 (09:07→22:24)
[2018-04-23] MEDS: DEXTROSE 5%-1/2 NORMAL SALINE 1,000 ML IV PRN ×2 (09:08→16:59)
[2018-04-23] MEDS: ENOXAPARIN SODIUM INJ 40 MG/0.4 ML DISP.SYRIN SUBCUT SCH (09:08)
--- NOTE | 2018-04-23 10:59 | PDOC PROGRESS REPORT ---
Subjective Progress Note for:: 04/23/18 Subjective:: Patient seen resting in bed. Yesterday night he had an episode of hypoglycemia with blood sugar greater than 400 and the on-call physician started him on insulin drip which subsequently tapered and discontinued. This morning his blood sugar is 167. Patient encouraged to eat. Reason For Visit: ACUTE PANCREATITIS,DKA Physical Exam Vital Signs: Temp Pulse Resp BP Pulse Ox 97.6 F 86 16 132/92 H 100 04/23/18 07:09 04/23/18 07:09 04/23/18 07:09 04/23/18 07:09 04/23/18 07:09 Intake & Output 04/22/18 04/23/18 04/24/18 06:59 06:59 06:59 Intake Total 5706 3549 Balance 5706 3549 Weight 69.5 kg 65.1 kg General appearance: PRESENT: no acute distress Eye exam: PRESENT: conjunctiva pink Neck exam: ABSENT: carotid bruit, JVD, lymphadenopathy, thyromegaly Respiratory exam: PRESENT: clear to auscultation alfonso. ABSENT: rales, rhonchi, wheezes Cardiovascular exam: PRESENT: RRR. ABSENT: diastolic murmur, rubs, systolic murmur Neurological exam: PRESENT: alert, awake, oriented to time, oriented to situation Results Laboratory Results: 04/21/18 04:39 04/23/18 06:27 04/22/18 04/23/18 23:09 06:27 Sodium 137.0 134.6 L Potassium 3.7 D 5.1 H D Chloride 112 H 115 H Carbon Dioxide 15 L 12 L Anion Gap 10 8 BUN 18 18 Creatinine 0.95 0.80 Est GFR ( Amer) > 60 > 60 Est GFR (Non-Af Amer) > 60 > 60 Glucose 184 H 272 H Calcium 8.9 8.4 Total Bilirubin 0.1 L AST 75 H ALT 30 Alkaline Phosphatase 97 Total Protein 5.0 L Albumin 2.4 L 04/20/18 07:56 Clean Catch Midstream Urine Culture - Final NO GROWTH 2 DAYS Assessment & Plan - Diagnosis (1) Acute on chronic pancreatitis Is this a current diagnosis for this admission?: Yes Plan: We will cautiously hydrate him and control his pain. (2) Hyponatremia Is this a current diagnosis for this admission?: Yes Plan: Improving (3) DKA (diabetic ketoacidoses) Qualifiers: Diabetes mellitus type: type 1 Is this a current diagnosis for this admission?: Yes Plan: Improving (4) Uncontrolled diabetes mellitus Qualifiers: Diabetes mellitus type: type 1 Is this a current diagnosis for this admission?: Yes Plan: Patient is noncompliant with his medication and diet. We will reinforced diabetic education. (5) Polysubstance abuse Is this a current diagnosis for this admission?: Yes Plan: Patient states he smokes weed. Even though his urine toxicology is positive for cocaine patient denied adamantly using cocaine. He is encouraged and advised to quit using illicit drugs. (6) Chronic anemia Is this a current diagnosis for this admission?: Yes Plan: His H&H is stable.
[2018-04-23] MEDS ORDERED: INSULIN REG, HUMAN 100 UNIT/ML 3 ML VIAL (PYX) SUBCUT SCH (11:00)
[2018-04-23 12:31] LABS: ANION GAP 9 (5-19); BLOOD UREA NITROGEN 15 mg/dL (7-20); CALCIUM 8.9 mg/dL (8.4-10.2); CARBON DIOXIDE 13 mmol/L (22-30); CHLORIDE 114 mmol/L (98-107); GLUCOSE 84 mg/dL (75-110); POTASSIUM 4.5 mmol/L (3.6-5.0)
[2018-04-23] MEDS ORDERED: METOCLOPRAMIDE HCL INJ/PF 10 MG/2 ML SDV ONE (13:10)
[2018-04-23] MEDS ORDERED: METOCLOPRAMIDE HCL INJ/PF 10 MG/2 ML SDV IV ONE (14:15)
[2018-04-23 18:07] LABS: ANION GAP 8 (5-19); BLOOD UREA NITROGEN 15 mg/dL (7-20); CALCIUM 8.8 mg/dL (8.4-10.2); CARBON DIOXIDE 15 mmol/L (22-30); CHLORIDE 112 mmol/L (98-107); GLUCOSE 141 mg/dL (75-110); POTASSIUM 4.6 mmol/L (3.6-5.0); SODIUM 135.4 mmol/L (137-145)
[2018-04-24 00:13] LABS: ANION GAP 9 (5-19); BLOOD UREA NITROGEN 19 mg/dL (7-20); CALCIUM 8.9 mg/dL (8.4-10.2); CARBON DIOXIDE 16 mmol/L (22-30); CHLORIDE 110 mmol/L (98-107); GLUCOSE 173 mg/dL (75-110); POTASSIUM 4.4 mmol/L (3.6-5.0); SODIUM 134.9 mmol/L (137-145)
[2018-04-24] MEDS: DEXTROSE 5%-1/2 NORMAL SALINE 1,000 ML IV PRN ×3 (01:47→17:40)
[2018-04-24] MEDS: OXYCODONE-ACETAMINOPHEN 5-325 MG TABLET PO PRN ×4 (05:05→23:06)
[2018-04-24] MEDS: PROMETHAZINE HCL 25 MG TABLET PO PRN ×4 (05:05→23:06)
[2018-04-24 06:36] LABS: ANION GAP 9 (5-19); BLOOD UREA NITROGEN 21 mg/dL (7-20); CALCIUM 8.8 mg/dL (8.4-10.2); CARBON DIOXIDE 17 mmol/L (22-30); CHLORIDE 110 mmol/L (98-107); GLUCOSE 96 mg/dL (75-110); LIPASE 1175.5 U/L (23-300); POTASSIUM 4.5 mmol/L (3.6-5.0)
[2018-04-24] MEDS: ENOXAPARIN SODIUM INJ 40 MG/0.4 ML DISP.SYRIN SUBCUT SCH (09:40)
[2018-04-24] MEDS: INSULIN REG, HUMAN 100 UNIT/ML 3 ML VIAL (PYX) SUBCUT SCH ×4 (09:40→21:45)
[2018-04-24] MEDS: INSULIN GLARGINE,HUM.REC.ANLOG 300 UNIT/3 ML INSULN.PEN SUBCUT SCH ×2 (09:56→21:45)
--- NOTE | 2018-04-24 10:29 | PDOC PROGRESS REPORT ---
Subjective Progress Note for:: 04/24/18 Subjective:: Patient is resting in bed. His blood sugar is now within normal limits after he started on prandial Lantus twice daily. Patient is eating well his abdominal pain is relatively subsided but his lipase is trended up to 1175. I will repeat lipase level if still increasing may be able to keep him n.p.o. Reason For Visit: ACUTE PANCREATITIS,DKA Physical Exam Vital Signs: Temp Pulse Resp BP Pulse Ox 97.8 F 96 12 103/63 100 04/24/18 08:24 04/24/18 08:24 04/24/18 08:24 04/24/18 08:24 04/24/18 08:24 Intake & Output 04/23/18 04/24/18 04/25/18 06:59 06:59 06:59 Intake Total 3549 4767 1000 Output Total 0 Balance 3549 4767 1000 Weight 65.1 kg 67.4 kg General appearance: PRESENT: no acute distress Head exam: PRESENT: atraumatic Eye exam: PRESENT: conjunctiva pink Mouth exam: PRESENT: moist Neck exam: ABSENT: carotid bruit, JVD, lymphadenopathy, thyromegaly Respiratory exam: PRESENT: clear to auscultation alfonso. ABSENT: rales, rhonchi, wheezes Cardiovascular exam: PRESENT: RRR. ABSENT: diastolic murmur, rubs, systolic murmur Neurological exam: PRESENT: alert, awake, oriented to time, oriented to situation Results Laboratory Results: 04/21/18 04:39 04/24/18 05:40 04/23/18 04/23/18 04/23/18 11:56 17:43 23:47 Sodium 136.0 L 135.4 L 134.9 L Potassium 4.5 4.6 4.4 Chloride 114 H 112 H 110 H Carbon Dioxide 13 L 15 L 16 L Anion Gap 9 8 9 BUN 15 15 19 Creatinine 0.72 0.74 0.83 Est GFR ( Amer) > 60 > 60 > 60 Est GFR (Non-Af Amer) > 60 > 60 > 60 Glucose 84 141 H 173 H Calcium 8.9 8.8 8.9 Lipase 04/24/18 05:40 Sodium 136.0 L Potassium 4.5 Chloride 110 H Carbon Dioxide 17 L Anion Gap 9 BUN 21 H Creatinine 0.74 Est GFR ( Amer) > 60 Est GFR (Non-Af Amer) > 60 Glucose 96 Calcium 8.8 Lipase 1175.5 H Assessment & Plan - Diagnosis (1) Acute on chronic pancreatitis Is this a current diagnosis for this admission?: Yes Plan: Stable (2) Hyponatremia Is this a current diagnosis for this admission?: Yes Plan: Improving (3) DKA (diabetic ketoacidoses) Qualifiers: Diabetes mellitus type: type 1 Is this a current diagnosis for this admission?: Yes Plan: Improving (4) Uncontrolled diabetes mellitus Qualifiers: Diabetes mellitus type: type 1 Is this a current diagnosis for this admission?: Yes Plan: Patient is noncompliant with his medication and diet. We will reinforced diabetic education. (5) Polysubstance abuse Is this a current diagnosis for this admission?: Yes Plan: Patient states he smokes weed. Even though his urine toxicology is positive for cocaine patient denied adamantly using cocaine. He is encouraged and advised to quit using illicit drugs. (6) Chronic anemia Is this a current diagnosis for this admission?: Yes Plan: His H&H is stable.
[2018-04-25] MEDS: DEXTROSE 5%-1/2 NORMAL SALINE 1,000 ML IV PRN ×3 (01:13→20:36)
[2018-04-25 05:13] LABS: ANION GAP 8 (5-19); BLOOD UREA NITROGEN 28 mg/dL (7-20); CALCIUM 8.7 mg/dL (8.4-10.2); CARBON DIOXIDE 19 mmol/L (22-30); CHLORIDE 108 mmol/L (98-107); GLUCOSE 251 mg/dL (75-110); POTASSIUM 4.8 mmol/L (3.6-5.0); SODIUM 134.9 mmol/L (137-145)
[2018-04-25] MEDS: OXYCODONE-ACETAMINOPHEN 5-325 MG TABLET PO PRN ×4 (05:24→20:37)
[2018-04-25] MEDS: PROMETHAZINE HCL 25 MG TABLET PO PRN ×4 (05:24→20:37)
[2018-04-25] MEDS: ENOXAPARIN SODIUM INJ 40 MG/0.4 ML DISP.SYRIN SUBCUT SCH (09:07)
[2018-04-25] MEDS: INSULIN GLARGINE,HUM.REC.ANLOG 300 UNIT/3 ML INSULN.PEN SUBCUT SCH ×2 (09:07→21:17)
--- NOTE | 2018-04-25 11:05 | PDOC PROGRESS REPORT ---
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 At admission his blood glucose was greater than 550 and his lipase was 835. And has been managed with insulin drip and IV hydration and kept him n.p.o. As we try to advance his diet his lipase jumped up to 1100 yesterday and now it is 1400. I will put him back n.p.o. and hydrate him cautiously. Reason For Visit: ACUTE PANCREATITIS,DKA Physical Exam Vital Signs: Temp Pulse Resp BP Pulse Ox 99.0 F 116 H 18 113/72 99 04/25/18 07:29 04/25/18 07:29 04/25/18 07:29 04/25/18 07:29 04/25/18 07:29 Intake & Output 04/24/18 04/25/18 04/26/18 06:59 06:59 06:59 Intake Total 4767 4579 994 Output Total 0 Balance 4767 4579 994 Weight 67.4 kg 68.6 kg General appearance: PRESENT: no acute distress Head exam: PRESENT: atraumatic, normocephalic Neck exam: ABSENT: carotid bruit, JVD, lymphadenopathy, thyromegaly Respiratory exam: PRESENT: clear to auscultation alfonso. ABSENT: rales, rhonchi, wheezes Cardiovascular exam: PRESENT: RRR. ABSENT: diastolic murmur, rubs, systolic murmur GI/Abdominal exam: PRESENT: normal bowel sounds, soft, tenderness. ABSENT: distended, guarding, mass, organolmegaly, rebound Neurological exam: PRESENT: alert, awake, oriented to time, oriented to situation Results Laboratory Results: 04/21/18 04:39 04/25/18 04:16 04/25/18 04:16 Sodium 134.9 L Potassium 4.8 Chloride 108 H Carbon Dioxide 19 L Anion Gap 8 BUN 28 H Creatinine 0.80 Est GFR ( Amer) > 60 Est GFR (Non-Af Amer) > 60 Glucose 251 H Calcium 8.7 Lipase 1477.0 H Assessment & Plan - Diagnosis (1) Acute on chronic pancreatitis Is this a current diagnosis for this admission?: Yes Plan: N.p.o., hydration and pain control. (2) Hyponatremia Is this a current diagnosis for this admission?: Yes Plan: Improving (3) DKA (diabetic ketoacidoses) Qualifiers: Diabetes mellitus type: type 1 Is this a current diagnosis for this admission?: Yes Plan: Improving (4) Uncontrolled diabetes mellitus Qualifiers: Diabetes mellitus type: type 1 Is this a current diagnosis for this admission?: Yes Plan: Patient is noncompliant with his medication and diet. We will reinforced diabetic education. (5) Polysubstance abuse Is this a current diagnosis for this admission?: Yes Plan: Patient states he smokes weed. Even though his urine toxicology is positive for cocaine patient denied adamantly using cocaine. He is encouraged and advised to quit using illicit drugs. (6) Chronic anemia Is this a current diagnosis for this admission?: Yes
[2018-04-25] MEDS: INSULIN REG, HUMAN 100 UNIT/ML 3 ML VIAL (PYX) SUBCUT SCH ×4 (12:16→21:18)
[2018-04-26] MEDS: PROMETHAZINE HCL 25 MG TABLET PO PRN ×6 (01:12→22:10)
[2018-04-26] MEDS: OXYCODONE-ACETAMINOPHEN 5-325 MG TABLET PO PRN ×6 (01:12→22:09)
[2018-04-26] MEDS: DEXTROSE 5%-1/2 NORMAL SALINE 1,000 ML IV PRN ×2 (03:50→12:07)
[2018-04-26] MEDS: INSULIN REG, HUMAN 100 UNIT/ML 3 ML VIAL (PYX) SUBCUT SCH ×4 (08:59→21:13)
[2018-04-26] MEDS: INSULIN GLARGINE,HUM.REC.ANLOG 300 UNIT/3 ML INSULN.PEN SUBCUT SCH ×2 (09:13→21:13)
[2018-04-26] MEDS: ENOXAPARIN SODIUM INJ 40 MG/0.4 ML DISP.SYRIN SUBCUT SCH (09:14)
--- NOTE | 2018-04-26 10:37 | PDOC PROGRESS REPORT ---
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 At admission his blood glucose was greater than 550 and his lipase was 835. And has been managed with insulin drip and IV hydration and kept him n.p.o. As we try to advance his diet his lipase jumped up to 1100 yesterday and now it is 1400. I will put him back n.p.o. and hydrate him cautiously. 04/26/2018 patient is comfortable in the bed eating his breakfast. He said he still nauseated is getting phenergan for nausea. Latest lipase level is 1477. Presently on IV fluids normal saline at 125 cc/h. Try to talk to him about to keep him n.p.o. for a day but the patient refused. Reason For Visit: ACUTE PANCREATITIS,DKA Physical Exam Vital Signs: Temp Pulse Resp BP Pulse Ox 98.0 F 99 16 113/64 100 04/26/18 05:12 04/26/18 07:00 04/26/18 05:12 04/26/18 05:12 04/26/18 05:12 Intake & Output 04/25/18 04/26/18 04/27/18 06:59 06:59 06:59 Intake Total 4579 5365 Balance 4579 5365 Weight 68.6 kg 66.2 kg General appearance: PRESENT: no acute distress Head exam: PRESENT: atraumatic Eye exam: PRESENT: PERRLA Mouth exam: PRESENT: moist, tongue midline Neck exam: ABSENT: carotid bruit, JVD, lymphadenopathy, thyromegaly Respiratory exam: PRESENT: decreased breath sounds Cardiovascular exam: PRESENT: tachycardia GI/Abdominal exam: PRESENT: normal bowel sounds, soft. ABSENT: distended, guarding, mass, organolmegaly, rebound, tenderness Extremities exam: PRESENT: full ROM. ABSENT: calf tenderness, clubbing, pedal edema Neurological exam: PRESENT: alert, awake, oriented to person, oriented to place, oriented to time, oriented to situation, CN II-XII grossly intact. ABSENT: motor sensory deficit Psychiatric exam: PRESENT: appropriate affect, normal mood. ABSENT: homicidal ideation, suicidal ideation Results Laboratory Results: 04/21/18 04:39 04/25/18 04:16 Assessment and Plan - Diagnosis (1) Acute on chronic pancreatitis Is this a current diagnosis for this admission?: Yes Plan: 04/26/18 10:30 04/26/2018-patient supposed to be n.p.o. from yesterday but he is eating his meals today. His lipase is continued to go back up latest lipase level is 1477. He is on IV fluids normal saline at 125 cc/h. I try to talk to him about keep him n.p.o. for a day or 2 and try to explain to him why patient said he understood but he wants to eat and he refused to follow my recommendations. Plan is to recheck his lipase levels tomorrow. (2) Hyponatremia Is this a current diagnosis for this admission?: Yes Plan: 04/26/18 10:32 04/26/2018-patient's latest serum sodium level is 134.9. Hyponatremia resolved. (3) DKA (diabetic ketoacidoses) Qualifiers: Diabetes mellitus type: type 1 Is this a current diagnosis for this admission?: Yes Plan: 04/26/18 10:32 2018-patient is admitted with high blood sugars and hyperosmolality DKA is resolved. Latest blood sugar is 136. Patient is presently on Lantus 30 units twice a day he is also on insulin sliding scale. Plan is to check his hemoglobin A1c today. (4) Polysubstance abuse Is this a current diagnosis for this admission?: Yes Plan: Patient states he smokes weed. Even though his urine toxicology is positive for cocaine patient denied adamantly using cocaine. He is encouraged and advised to quit using illicit drugs. 04/26/2018-patient is complaining of chronic abdominal pain is on Percocet 1 tablet every 4 as needed he requesting for 2 tablets every 4 hours as needed. Agreed with his request. (5) Chronic anemia Is this a current diagnosis for this admission?: No Plan: 04/26/18 10:36 Patient has history of chronic anemia most likely secondary to severe gastritis causing occasional upper GI bleed.. Latest hemoglobin is 8.8. And is to recheck his hemoglobin tomorrow. - Time Time Spent with patient: 15-24 minutes Smoking Cessation Education: over 10 minutes Medications reviewed and adjusted accordingly: Yes Anticipated discharge: Home
[2018-04-26] MEDS ORDERED: INSULIN GLARGINE,HUM.REC.ANLOG 300 UNIT/3 ML INSULN.PEN SUBCUT SCH (22:00)
[2018-04-27] MEDS: OXYCODONE-ACETAMINOPHEN 5-325 MG TABLET PO PRN ×6 (02:30→23:01)
[2018-04-27] MEDS: DEXTROSE 5%-1/2 NORMAL SALINE 1,000 ML IV PRN (02:30)
[2018-04-27] MEDS: PROMETHAZINE HCL 25 MG TABLET PO PRN ×6 (02:30→23:01)
[2018-04-27 05:15] LABS: ABSOLUTE BASOPHILS # (AUTO) 0.1 10^3/uL (0.0-0.2); ABSOLUTE EOSINOPHILS # (AUTO) 0.2 10^3/uL (0.0-0.6); ABSOLUTE LYMPHOCYTES (AUTO) 1.8 10^3/uL (0.5-4.7); ABSOLUTE MONOCYTES (AUTO) 1.1 10^3/uL (0.1-1.4); ABSOLUTE NEUT (AUTO) 4.6 10^3/uL (1.7-8.2); BASOPHILS % (AUTO) 1.4 % (0-2); EOSINOPHILS % (AUTO) 2.5 % (0-6); HEMATOCRIT 24.5 % (37.9-51.0); HEMOGLOBIN 8.1 g/dL (13.5-17.0); LYMPHOCYTES % (AUTO) 23.3 % (13-45); MEAN CORPUSCULAR HEMOGLOBIN 26.9 pg (27.0-33.4); MEAN CORPUSCULAR VOLUME 82 fl (80-97); MONOCYTES % (AUTO) 13.5 % (3-13); PLATELET COUNT 436 10^3/uL (150-450); RED CELL DISTRIBUTION WIDTH 19.6 % (11.5-14.0); SEGMENTED NEUTROPHILS % (AUTO) 59.3 % (42-78); TOTAL CELLS COUNTED % (AUTO) 100 %; WHITE BLOOD COUNT 7.8 10^3/uL (4.0-10.5)
[2018-04-27 05:36] LABS: ALANINE AMINOTRANSFERASE 229 U/L (21-72); ALBUMIN 2.8 g/dL (3.5-5.0); ALKALINE PHOSPHATASE 172 U/L (38-126); ANION GAP 9 (5-19); ASPARTATE AMINO TRANSFERASE 532 U/L (17-59); BILIRUBIN,DIRECT 0.3 mg/dL (0.0-0.4); BILIRUBIN,TOTAL 0.3 mg/dL (0.2-1.3); BLOOD UREA NITROGEN 39 mg/dL (7-20); CALCIUM 9.4 mg/dL (8.4-10.2); CARBON DIOXIDE 20 mmol/L (22-30); CHLORIDE 107 mmol/L (98-107); GLUCOSE 253 mg/dL (75-110); LIPASE 1121.8 U/L (23-300); POTASSIUM 5.1 mmol/L (3.6-5.0); SODIUM 135.7 mmol/L (137-145); TOTAL PROTEIN 5.9 g/dL (6.3-8.2)
[2018-04-27] MEDS: INSULIN REG, HUMAN 100 UNIT/ML 3 ML VIAL (PYX) SUBCUT SCH ×4 (07:57→21:19)
[2018-04-27] MEDS ORDERED: NORMAL SALINE 250 ML IV PRN ×2 (08:42)
[2018-04-27] MEDS: INSULIN GLARGINE,HUM.REC.ANLOG 300 UNIT/3 ML INSULN.PEN SUBCUT SCH ×2 (08:59→21:19)
--- NOTE | 2018-04-27 08:59 | PDOC PROGRESS REPORT ---
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 At admission his blood glucose was greater than 550 and his lipase was 835. And has been managed with insulin drip and IV hydration and kept him n.p.o. As we try to advance his diet his lipase jumped up to 1100 yesterday and now it is 1400. I will put him back n.p.o. and hydrate him cautiously. 04/26/2018 patient is comfortable in the bed eating his breakfast. He said he still nauseated is getting phenergan for nausea. Latest lipase level is 1477. Presently on IV fluids normal saline at 125 cc/h. Try to talk to him about to keep him n.p.o. for a day but the patient refused. 04/27/2018-patient is comfortable in the bed denies any pains today no acute events in the last 24 hours alert and awake communicating very well. Reason For Visit: ACUTE PANCREATITIS,DKA Physical Exam Vital Signs: Temp Pulse Resp BP Pulse Ox 97.8 F 106 H 15 112/73 100 04/27/18 07:16 04/27/18 07:16 04/27/18 07:16 04/27/18 07:16 04/27/18 07:16 Intake & Output 04/26/18 04/27/18 04/28/18 06:59 06:59 06:59 Intake Total 5365 5768 Balance 5365 5768 Weight 66.2 kg 66.5 kg General appearance: PRESENT: no acute distress Head exam: PRESENT: atraumatic Eye exam: PRESENT: PERRLA Mouth exam: PRESENT: moist, tongue midline Neck exam: ABSENT: carotid bruit, JVD, lymphadenopathy, thyromegaly Respiratory exam: PRESENT: clear to auscultation alfonso. ABSENT: rales, rhonchi, wheezes Cardiovascular exam: PRESENT: RRR. ABSENT: diastolic murmur, rubs, systolic murmur GI/Abdominal exam: PRESENT: normal bowel sounds, soft. ABSENT: distended, guarding, mass, organolmegaly, rebound, tenderness Extremities exam: PRESENT: full ROM. ABSENT: calf tenderness, clubbing, pedal edema Neurological exam: PRESENT: alert, awake, oriented to person, oriented to place, oriented to time, oriented to situation, CN II-XII grossly intact. ABSENT: motor sensory deficit Psychiatric exam: PRESENT: appropriate affect, normal mood. ABSENT: homicidal ideation, suicidal ideation Results Laboratory Results: 04/27/18 04:52 04/27/18 04:52 04/27/18 04/27/18 04:52 04:52 WBC 7.8 RBC 3.00 L Hgb 8.1 L Hct 24.5 L MCV 82 MCH 26.9 L MCHC 33.0 RDW 19.6 H Plt Count 436 Seg Neutrophils % 59.3 Lymphocytes % 23.3 Monocytes % 13.5 H Eosinophils % 2.5 Basophils % 1.4 Absolute Neutrophils 4.6 Absolute Lymphocytes 1.8 Absolute Monocytes 1.1 Absolute Eosinophils 0.2 Absolute Basophils 0.1 Sodium 135.7 L Potassium 5.1 H Chloride 107 Carbon Dioxide 20 L Anion Gap 9 BUN 39 H Creatinine 1.02 Est GFR ( Amer) > 60 Est GFR (Non-Af Amer) > 60 Glucose 253 H Calcium 9.4 Magnesium 1.8 Total Bilirubin 0.3 AST 532 H ALT 229 H Alkaline Phosphatase 172 H Total Protein 5.9 L Albumin 2.8 L Lipase 1121.8 H Assessment and Plan - Diagnosis (1) Acute on chronic pancreatitis Is this a current diagnosis for this admission?: Yes Plan: 04/26/18 10:30 04/26/2018-patient supposed to be n.p.o. from yesterday but he is eating his meals today. His lipase is continued to go back up latest lipase level is 1477. He is on IV fluids normal saline at 125 cc/h. I try to talk to him about keep him n.p.o. for a day or 2 and try to explain to him why patient said he understood but he wants to eat and he refused to follow my recommendations. Plan is to recheck his lipase levels tomorrow. 04/27/2018-lipase levels came down to 1120 from 1477 yesterday. Patient refused to be on n.p.o. he is eating diabetic diet. IV fluids are discontinued. Plan is to continue the present management continue pain medications and recheck labs tomorrow. (2) Hyponatremia Is this a current diagnosis for this admission?: Yes Plan: 04/26/18 10:32 04/26/2018-patient's latest serum sodium level is 134.9. Hyponatremia resolved. 04/27/2018-patient's sodium level is 135 hyponatremia due to prerenal causes resolved. (3) DKA (diabetic ketoacidoses) Qualifiers: Diabetes mellitus type: type 1 Is this a current diagnosis for this admission?: Yes Plan: 04/26/18 10:32 04/26-patient is admitted with high blood sugars and hyperosmolality DKA is resolved. Latest blood sugar is 136. Patient is presently on Lantus 30 units twice a day he is also on insulin sliding scale. Plan is to check his hemoglobin A1c today. 04/27/2018-patient is admitted with diabetic ketoacidosis which was resolved. Latest blood sugar is 200 hemoglobin A1c is 13.5 he is on insulin sliding scale before meals and at bedtime and Lantus was dose was increased to 35 units twice a day. (4) Polysubstance abuse Is this a current diagnosis for this admission?: Yes Plan: Patient states he smokes weed. Even though his urine toxicology is positive for cocaine patient denied adamantly using cocaine. He is encouraged and advised to quit using illicit drugs. 04/26/2018-patient is complaining of chronic abdominal pain is on Percocet 1 tablet every 4 as needed he requesting for 2 tablets every 4 hours as needed. Agreed with his request. 04/27/2018 patient denies any pains today presently on Percocet 2 tablets every 4 as needed we will continue the present management. (5) Chronic anemia Is this a current diagnosis for this admission?: No Plan: 04/26/18 10:36 Patient has history of chronic anemia most likely secondary to severe gastritis causing occasional upper GI bleed.. Latest hemoglobin is 8.8. And is to rec heck his hemoglobin tomorrow. 04/27/2018-patient has anemia of chronic disease most likely secondary to her GI bleed hemoglobin dropped to 8.1 plan is to give 1 unit of blood transfusion patient agreed for the blood transfusion. - Time Time Spent with patient: 15-24 minutes Smoking Cessation Education: over 10 minutes Medications reviewed and adjusted accordingly: Yes Anticipated discharge: Home
[2018-04-27] MEDS: ENOXAPARIN SODIUM INJ 40 MG/0.4 ML DISP.SYRIN SUBCUT SCH (09:07)
[2018-04-27 16:44] LABS: ABSOLUTE BASOPHILS # (AUTO) 0.1 10^3/uL (0.0-0.2); ABSOLUTE EOSINOPHILS # (AUTO) 0.3 10^3/uL (0.0-0.6); ABSOLUTE LYMPHOCYTES (AUTO) 1.6 10^3/uL (0.5-4.7); ABSOLUTE MONOCYTES (AUTO) 0.9 10^3/uL (0.1-1.4); ABSOLUTE NEUT (AUTO) 5.9 10^3/uL (1.7-8.2); BASOPHILS % (AUTO) 1.3 % (0-2); HEMATOCRIT 26.8 % (37.9-51.0); HEMOGLOBIN 8.9 g/dL (13.5-17.0); LYMPHOCYTES % (AUTO) 17.9 % (13-45); MEAN CORPUSCULAR HEMOGLOBIN 27.5 pg (27.0-33.4); MEAN CORPUSCULAR HGB CONC 33.1 g/dL (32.0-36.0); MEAN CORPUSCULAR VOLUME 83 fl (80-97); MONOCYTES % (AUTO) 10.3 % (3-13); PLATELET COUNT 419 10^3/uL (150-450); RED BLOOD COUNT 3.22 10^6/uL (4.35-5.55); RED CELL DISTRIBUTION WIDTH 19.1 % (11.5-14.0); SEGMENTED NEUTROPHILS % (AUTO) 67.5 % (42-78); TOTAL CELLS COUNTED % (AUTO) 100 %; WHITE BLOOD COUNT 8.7 10^3/uL (4.0-10.5)
[2018-04-28] MEDS: OXYCODONE-ACETAMINOPHEN 5-325 MG TABLET PO PRN ×5 (03:03→20:06)
[2018-04-28] MEDS: PROMETHAZINE HCL 25 MG TABLET PO PRN ×4 (03:03→16:24)
[2018-04-28 05:24] LABS: ABSOLUTE BASOPHILS # (AUTO) 0.1 10^3/uL (0.0-0.2); ABSOLUTE EOSINOPHILS # (AUTO) 0.2 10^3/uL (0.0-0.6); ABSOLUTE LYMPHOCYTES (AUTO) 1.6 10^3/uL (0.5-4.7); ABSOLUTE NEUT (AUTO) 6.1 10^3/uL (1.7-8.2); EOSINOPHILS % (AUTO) 2.6 % (0-6); HEMOGLOBIN 9.7 g/dL (13.5-17.0); LYMPHOCYTES % (AUTO) 17.7 % (13-45); MEAN CORPUSCULAR HEMOGLOBIN 27.1 pg (27.0-33.4); MEAN CORPUSCULAR HGB CONC 33.5 g/dL (32.0-36.0); MEAN CORPUSCULAR VOLUME 81 fl (80-97); PLATELET COUNT 450 10^3/uL (150-450); RED BLOOD COUNT 3.58 10^6/uL (4.35-5.55); RED CELL DISTRIBUTION WIDTH 18.7 % (11.5-14.0); SEGMENTED NEUTROPHILS % (AUTO) 67.7 % (42-78); TOTAL CELLS COUNTED % (AUTO) 100 %; WHITE BLOOD COUNT 8.9 10^3/uL (4.0-10.5)
[2018-04-28 05:54] LABS: ALANINE AMINOTRANSFERASE 213 U/L (21-72); ALBUMIN 3.5 g/dL (3.5-5.0); ALKALINE PHOSPHATASE 203 U/L (38-126); ANION GAP 10 (5-19); ASPARTATE AMINO TRANSFERASE 277 U/L (17-59); BILIRUBIN,DIRECT 0.2 mg/dL (0.0-0.4); BILIRUBIN,TOTAL 0.2 mg/dL (0.2-1.3); BLOOD UREA NITROGEN 40 mg/dL (7-20); CALCIUM 9.9 mg/dL (8.4-10.2); CARBON DIOXIDE 22 mmol/L (22-30); CHLORIDE 106 mmol/L (98-107); GLUCOSE 187 mg/dL (75-110); LIPASE 666.4 U/L (23-300); POTASSIUM 4.8 mmol/L (3.6-5.0); SODIUM 137.9 mmol/L (137-145); TOTAL PROTEIN 7.3 g/dL (6.3-8.2)
[2018-04-28] MEDS: INSULIN REG, HUMAN 100 UNIT/ML 3 ML VIAL (PYX) SUBCUT SCH ×4 (08:12→22:01)
[2018-04-28] MEDS: ENOXAPARIN SODIUM INJ 40 MG/0.4 ML DISP.SYRIN SUBCUT SCH (09:15)
--- NOTE | 2018-04-28 10:23 | PDOC PROGRESS REPORT ---
Subjective Progress Note for:: 04/28/18 Subjective:: 38 year old black male patient who is a frequent flyer, and history of multiple hospitalization and past medical history of medical noncompliance, chronic blood loss anemia from upper GI bleeding uncontrolled diabetes mellitus alcohol abuse, tobacco dependence and polysubstance abuse with chief complaint of abdominal pain. At admission his blood glucose was greater than 550 and his lipase was 835. And has been managed with insulin drip and IV hydration and kept him n.p.o. As we try to advance his diet his lipase jumped up to 1100 yesterday and now it is 1400. I will put him back n.p.o. and hydrate him cautiously. 04/26/2018 patient is comfortable in the bed eating his breakfast. He said he still nauseated is getting phenergan for nausea. Latest lipase level is 1477. Presently on IV fluids normal saline at 125 cc/h. Try to talk to him about to keep him n.p.o. for a day but the patient refused. 04/27/2018-patient is comfortable in the bed denies any pains today no acute events in the last 24 hours alert and awake communicating very well. 04/28/2018-patient is comfortably in the bed denies any complaints today he wants to stay another day because still having the abdominal pains. Explained to him that lipase level is coming down came down to 666 but is still insisting pain scale is a 7-8 x 10 and he is not in a situation to go home today. I reluctantly agreed to keep him another day. Plan is to repeat the labs tomorrow. Reason For Visit: ACUTE PANCREATITIS,DKA Physical Exam Vital Signs: Temp Pulse Resp BP Pulse Ox 98.2 F 114 H 20 116/70 100 04/28/18 03:59 04/28/18 07:00 04/28/18 03:59 04/28/18 03:59 04/28/18 03:59 Intake & Output 04/27/18 04/28/18 04/29/18 06:59 06:59 06:59 Intake Total 8618 3790 Balance 5785 3790 Weight 66.5 kg 66.4 kg General appearance: PRESENT: no acute distress Head exam: PRESENT: atraumatic Eye exam: PRESENT: PERRLA Neck exam: ABSENT: carotid bruit, JVD, lymphadenopathy, thyromegaly Respiratory exam: PRESENT: clear to auscultation alfonso. ABSENT: rales, rhonchi, wheezes Cardiovascular exam: PRESENT: RRR. ABSENT: diastolic murmur, rubs, systolic murmur Vascular exam: PRESENT: normal capillary refill Neurological exam: PRESENT: alert, awake, oriented to person, oriented to place, oriented to time, oriented to situation, CN II-XII grossly intact. ABSENT: motor sensory deficit Psychiatric exam: PRESENT: appropriate affect, normal mood. ABSENT: homicidal ideation, suicidal ideation Results Laboratory Results: 04/28/18 05:12 04/28/18 05:12 04/27/18 04/27/18 04/28/18 09:13 16:26 05:12 WBC 8.7 RBC 3.22 L Hgb 8.9 L Hct 26.8 L MCV 83 MCH 27.5 MCHC 33.1 RDW 19.1 H Plt Count 419 Seg Neutrophils % 67.5 Lymphocytes % 17.9 Monocytes % 10.3 Eosinophils % 3.0 Basophils % 1.3 Absolute Neutrophils 5.9 Absolute Lymphocytes 1.6 Absolute Monocytes 0.9 Absolute Eosinophils 0.3 Absolute Basophils 0.1 Sodium 137.9 Potassium 4.8 Chloride 106 Carbon Dioxide 22 Anion Gap 10 BUN 40 H Creatinine 0.86 Est GFR ( Amer) > 60 Est GFR (Non-Af Amer) > 60 Glucose 187 H Calcium 9.9 Magnesium 1.9 Total Bilirubin 0.2 AST 277 H ALT 213 H Alkaline Phosphatase 203 H Total Protein 7.3 Albumin 3.5 Lipase 666.4 H Blood Type A POSITIVE Antibody Screen NEGATIVE 04/28/18 05:12 WBC 8.9 RBC 3.58 L Hgb 9.7 L Hct 29.0 L MCV 81 MCH 27.1 MCHC 33.5 RDW 18.7 H Plt Count 450 Seg Neutrophils % 67.7 Lymphocytes % 17.7 Monocytes % 11.0 Eosinophils % 2.6 Basophils % 1.0 Absolute Neutrophils 6.1 Absolute Lymphocytes 1.6 Absolute Monocytes 1.0 Absolute Eosinophils 0.2 Absolute Basophils 0.1 Sodium Potassium Chloride Carbon Dioxide Anion Gap BUN Creatinine Est GFR ( Amer) Est GFR (Non-Af Amer) Glucose Calcium Magnesium Total Bilirubin AST ALT Alkaline Phosphatase Total Protein Albumin Lipase Blood Type Antibody Screen Assessment and Plan - Diagnosis (1) Acute on chronic pancreatitis Is this a current diagnosis for this admission?: Yes Plan: 04/26/18 10:30 04/26/2018-patient supposed to be n.p.o. from yesterday but he is eating his meals today. His lipase is continued to go back up latest lipase level is 1477. He is on IV fluids normal saline at 125 cc/h. I try to talk to him about keep him n.p.o. for a day or 2 and try to explain to him why patient said he unders tood but he wants to eat and he refused to follow my recommendations. Plan is to recheck his lipase levels tomorrow. 04/27/2018-lipase levels came down to 1120 from 1477 yesterday. Patient refused to be on n.p.o. he is eating diabetic diet. IV fluids are discontinued. Plan is to continue the present management continue pain medications and recheck labs tomorrow. 04/28/2018-latest lipase level is 666 patient is eating his diabetic diet still complaining of pain scale 7-8 x 10 he is on Percocet 2 tablets every 4 as needed for pain plan is to continue the present management recheck his labs tomorrow denies any nausea or vomitings or diarrhea today. (2) Hyponatremia Is this a current diagnosis for this admission?: Yes Plan: 04/26/18 10:32 04/26/2018-patient's latest serum sodium level is 134.9. Hyponatremia resolved. 04/27/2018-patient's sodium level is 135 hyponatremia due to prerenal causes resolved. 04/28/2018 serum sodium level is 138 hyponatremia is resolved. (3) DKA (diabetic ketoacidoses) Qualifiers: Diabetes mellitus type: type 1 Is this a current diagnosis for this admission?: Yes Plan: 04/26/18 10:32 04/26-patient is admitted with high blood sugars and hyperosmolality DKA is resolved. Latest blood sugar is 136. Patient is presently on Lantus 30 units twice a day he is also on insulin sliding scale. Plan is to check his hemoglobin A1c today. 04/27/2018-patient is admitted with diabetic ketoacidosis which was resolved. Latest blood sugar is 200 hemoglobin A1c is 13.5 he is on insulin sliding scale before meals and at bedtime and Lantus was dose was increased to 35 units twice a day. 04/28/2018-patient admitted with a DKA DKA is resolved. Latest blood sugar is 317 he is on Lantus 35 units twice a day along with insulin sliding scale before meals and at bedtime hemoglobin A1c is 13.5 diet exercise medications was discussed with the patient. Dietary consult was requested. Plan is to increase the Lantus to 40 units twice a day. (4) Polysubstance abuse Is this a current diagnosis for this admission?: Yes Plan: Patient states he smokes weed. Even though his urine toxicology is positive for cocaine patient denied adamantly using cocaine. He is encouraged and advised to quit using illicit drugs. 04/26/2018-patient is complaining of chronic abdominal pain is on Percocet 1 tablet every 4 as needed he requesting for 2 tablets every 4 hours as needed. Agreed with his request. 04/27/2018 patient denies any pains today presently on Percocet 2 tablets every 4 as needed we will continue the present management. 04/28/2018-patient has history of polysubstance abuse counseling was provided. Plan Percocet 2 tablets every 4 as needed complaining of abdominal pains. (5) Chronic anemia Is this a current diagnosis for this admission?: No Plan: 04/26/18 10:36 Patient has history of chronic anemia most likely secondary to severe gastritis causing occasional upper GI bleed.. Latest hemoglobin is 8.8. And is to recheck his hemoglobin tomorrow. 04/27/2018-patient has anemia of chronic disease most likely secondary to her GI bleed hemoglobin dropped to 8.1 plan is to give 1 unit of blood transfusion patient agreed for the blood transfusion. 04/28/2018-patient's hemoglobin is 9.7 he received 1 unit of PRBC. Anemia of chronic disease most likely secondary to severe gastritis causing upper GI bleed. - Time Time Spent with patient: 15-24 minutes Smoking Cessation Education: over 10 minutes Medications reviewed and adjusted accordingly: Yes Anticipated discharge: Home
[2018-04-28] MEDS ORDERED: SODIUM CHLORIDE NASAL SPRAY 44 ML NASL PRN (17:15)
[2018-04-28] MEDS ORDERED: INSULIN GLARGINE,HUM.REC.ANLOG 300 UNIT/3 ML INSULN.PEN SUBCUT SCH (22:00)
[2018-04-28] MEDS ORDERED: METOPROLOL TARTRATE 25 MG TABLET PO SCH (22:00)
[2018-04-28] MEDS: INSULIN GLARGINE,HUM.REC.ANLOG 1,000 UNIT/10 ML VIAL SUBCUT SCH (22:02)
[2018-04-29] MEDS: OXYCODONE-ACETAMINOPHEN 5-325 MG TABLET PO PRN ×4 (00:13→14:09)
[2018-04-29] MEDS: PROMETHAZINE HCL 25 MG TABLET PO PRN ×3 (04:19→14:09)
[2018-04-29 07:14] LABS: ALANINE AMINOTRANSFERASE 227 U/L (21-72); ALBUMIN 3.6 g/dL (3.5-5.0); ALKALINE PHOSPHATASE 234 U/L (38-126); ANION GAP 9 (5-19); ASPARTATE AMINO TRANSFERASE 330 U/L (17-59); BILIRUBIN,DIRECT 0.3 mg/dL (0.0-0.4); BILIRUBIN,TOTAL 0.3 mg/dL (0.2-1.3); BLOOD UREA NITROGEN 46 mg/dL (7-20); CALCIUM 9.7 mg/dL (8.4-10.2); CARBON DIOXIDE 26 mmol/L (22-30); CHLORIDE 102 mmol/L (98-107); GLUCOSE 338 mg/dL (75-110); LIPASE 604.7 U/L (23-300); POTASSIUM 5.1 mmol/L (3.6-5.0); SODIUM 137.3 mmol/L (137-145); TOTAL PROTEIN 7.6 g/dL (6.3-8.2)
[2018-04-29] MEDS: INSULIN REG, HUMAN 100 UNIT/ML 3 ML VIAL (PYX) SUBCUT SCH ×2 (08:23→12:39)
[2018-04-29] MEDS: ENOXAPARIN SODIUM INJ 40 MG/0.4 ML DISP.SYRIN SUBCUT SCH (09:19)
[2018-04-29 09:20] LABS: ABSOLUTE EOSINOPHILS # (AUTO) 0.2 10^3/uL (0.0-0.6); ABSOLUTE LYMPHOCYTES (AUTO) 1.5 10^3/uL (0.5-4.7); ABSOLUTE MONOCYTES (AUTO) 1.1 10^3/uL (0.1-1.4); ABSOLUTE NEUT (AUTO) 4.7 10^3/uL (1.7-8.2); BASOPHILS % (AUTO) 0.6 % (0-2); EOSINOPHILS % (AUTO) 2.7 % (0-6); HEMATOCRIT 26.6 % (37.9-51.0); HEMOGLOBIN 9.1 g/dL (13.5-17.0); LYMPHOCYTES % (AUTO) 19.4 % (13-45); MEAN CORPUSCULAR HGB CONC 34.1 g/dL (32.0-36.0); MEAN CORPUSCULAR VOLUME 82 fl (80-97); MONOCYTES % (AUTO) 14.7 % (3-13); PLATELET COUNT 475 10^3/uL (150-450); RED BLOOD COUNT 3.23 10^6/uL (4.35-5.55); RED CELL DISTRIBUTION WIDTH 18.8 % (11.5-14.0); SEGMENTED NEUTROPHILS % (AUTO) 62.6 % (42-78); TOTAL CELLS COUNTED % (AUTO) 100 %; WHITE BLOOD COUNT 7.6 10^3/uL (4.0-10.5)
[2018-04-29] MEDS: INSULIN GLARGINE,HUM.REC.ANLOG 1,000 UNIT/10 ML VIAL SUBCUT SCH (09:23)
[2018-04-29 10:16] VITALS: BP 127/86
--- NOTE | 2018-04-29 12:06 | PDOC DISCHARGE SUMMARY ---
General - Admit/Disc Date/PCP Admission Date/Primary Care Provider: 04/20/18 10:24 Discharge Date: 04/29/18 - Discharge Diagnosis (1) Acute on chronic pancreatitis Is this a current diagnosis for this admission?: Yes Summary: 04/26/18 10:30 04/26/2018-patient supposed to be n.p.o. from yesterday but he is eating his meals today. His lipase is continued to go back up latest lipase level is 1477. He is on IV fluids normal saline at 125 cc/h. I try to talk to him about keep him n.p.o. for a day or 2 and try to explain to him why patient said he understood but he wants to eat and he refused to follow my recommendations. Plan is to recheck his lipase levels tomorrow. 04/27/2018-lipase levels came down to 1120 from 1477 yesterday. Patient refused to be on n.p.o. he is eating diabetic diet. IV fluids are discontinued. Plan is to continue the present management continue pain medications and recheck labs tomorrow. 04/28/2018-latest lipase level is 666 patient is eating his diabetic diet still complaining of pain scale 7-8 x 10 he is on Percocet 2 tablets every 4 as needed for pain plan is to continue the present management recheck his labs tomorrow denies any nausea or vomitings or diarrhea today. 2018 today's lipase level is 604. Patient denies any abdominal pains. No episodes of nausea vomiting or diarrhea in the last 48 hours. Patient is stable enough to go home today and he is going home on Phenergan 25 mg every 4 hours as needed basis. I strongly advised him to follow-up with primary care physician in 3-5 days. (2) Hyponatremia Is this a current diagnosis for this admission?: Yes Summary: 04/26/18 10:32 04/26/2018-patient's latest serum sodium level is 134.9. Hyponatremia resolved. 04/27/2018-patient's sodium level is 135 hyponatremia due to prerenal causes resolved. 04/28/2018 serum sodium level is 138 hyponatremia is resolved. 04/29/2018-serum sodium level is 137 hyponatremia most likely secondary to dehydration and uncontrolled diabetes mellitus resolved. (3) DKA (diabetic ketoacidoses) Is this a current diagnosis for this admission?: Yes Summary: 04/26/18 10:32 04/26-patient is admitted with high blood sugars and hyperosmolality DKA is resolved. Latest blood sugar is 136. Patient is presently on Lantus 30 units twice a day he is also on insulin sliding scale. Plan is to check his hemoglobin A1c today. 04/27/2018-patient is admitted with diabetic ketoacidosis which was resolved. Latest blood sugar is 200 hemoglobin A1c is 13.5 he is on insulin sliding scale before meals and at bedtime and Lantus was dose was increased to 35 units twice a day. 04/28/2018-patient admitted with a DKA DKA is resolved. Latest blood sugar is 317 he is on Lantus 35 units twice a day along with insulin sliding scale before meals and at bedtime hemoglobin A1c is 13.5 diet exercise medications was discussed with the patient. Dietary consult was requested. Plan is to increase the Lantus to 40 units twice a day. 04/29/2018-patient admitted with diabetic ketoacidosis latest blood sugar is 300 hemoglobin A1c is 13.5 diabetic ketoacidosis is resolved diet exercise lifestyle modifications are discussed with the patient. Dietary consult was done during the hospital stay. He was given a prescription for Lantus 40 units subcu twice a day and also advised to continue sliding scale at home. Patient agreed with the plan is going home today. (4) Polysubstance abuse Is this a current diagnosis for this admission?: Yes Summary: Patient states he smokes weed. Even though his urine toxicology is positive for cocaine patient denied adamantly using cocaine. He is encouraged and advised to quit using illicit drugs. 04/26/2018-patient is complaining of chronic abdominal pain is on Percocet 1 tablet every 4 as needed he requesting for 2 tablets every 4 hours as needed. Agreed with his request. 04/27/2018 patient denies any pains today presently on Percocet 2 tablets every 4 as needed we will continue the present management. 04/28/2018-patient has history of polysubstance abuse counseling was provided. Plan Percocet 2 tablets every 4 as needed complaining of abdominal pains. 04/29/2018-patient has history of polysubstance abuse, counseling was provided again today. Patient is requesting pain medications to take home ,I strongly suggested him to get in touch with his primary care physician for pain medication refill. (5) Chronic anemia Is this a current diagnosis for this admission?: No Summary: 04/26/18 10:36 Patient has history of chronic anemia most likely secondary to severe gastritis causing occasional upper GI bleed.. Latest hemoglobin is 8.8. And is to recheck his hemoglobin tomorrow. 04/27/2018-patient has anemia of chronic disease most likely secondary to her GI bleed hemoglobin dropped to 8.1 plan is to give 1 unit of blood transfusion patient agreed for the blood transfusion. 04/28/2018-patient's hemoglobin is 9.7 he received 1 unit of PRBC. Anemia of chronic disease most likely secondary to severe gastritis causing upper GI bleed. 04/29/2018-patient's hemoglobin today is 9.1 stable. Chronic anemia most likely secondary to severe gastritis causing occasional upper GI bleed. - Additional Information Resuscitation Status: Full Code Discharge Diet: Diabetic Discharge Activity: Activity As Tolerated Prescriptions: Insulin Glargine,Hum.rec.anlog [Lantus Insulin 100 Unit/1 ml 10 ml] 40 unit SUBC UT Q12 30 Days #4 vial Promethazine HCl [Phenergan 25 mg Tablet] 25 mg PO Q6HP PRN #30 tablet PRN Reason: Home Medications: Insulin Aspart [Novolog Flexpen] 0 unit SUBCUT .SLD SCALE 04/20/18 Insulin Glargine,Hum.rec.anlog [Lantus Insulin 100 Unit/1 ml 10 ml] 40 unit WOLF BCUT Q12 30 Days #4 vial 04/29/18 Promethazine HCl [Phenergan 25 mg Tablet] 25 mg PO Q6HP PRN #30 tablet 04/29/18 History of Present Illness History of Present Illness: CHESTER MCKEON is a 38 year old male 38 year old black male patient who is a frequent flyer, and history of multiple hospitalization and past medical history of medical noncompliance, chronic blood loss anemia from upper GI bleeding uncontrolled diabetes mellitus alcohol abuse, tobacco dependence and polysubstance abuse with chief complaint of abdominal pain. Of note patient discharged from this hospital 48 hours ago. His initial blood work shows hyperglycemia with blood sugar of 656 and metabolic acidosis and his urine toxicology is positive for cocaine. Patient supposed to get his insulin from [facility] but he failed to procure. Physical Exam Vital Signs: Temp Pulse Resp BP Pulse Ox 98.4 F 109 H 16 127/86 H 100 04/29/18 10:15 04/29/18 10:15 04/29/18 10:15 04/29/18 10:15 04/29/18 10:15 Intake & Output 04/28/18 04/29/18 04/30/18 06:59 06:59 06:59 Intake Total 3790 1434 Balance 3790 1434 Weight 66.4 kg 63.2 kg General appearance: PRESENT: no acute distress Head exam: PRESENT: atraumatic Eye exam: PRESENT: PERRLA Mouth exam: PRESENT: moist, tongue midline Neck exam: ABSENT: carotid bruit, JVD, lymphadenopathy, thyromegaly Respiratory exam: PRESENT: clear to auscultation alfonso. ABSENT: rales, rhonchi, wheezes Cardiovascular exam: PRESENT: tachycardia GI/Abdominal exam: PRESENT: normal bowel sounds, soft. ABSENT: distended, guarding, mass, organolmegaly, rebound, tenderness Extremities exam: PRESENT: full ROM. ABSENT: calf tenderness, clubbing, pedal edema Neurological exam: PRESENT: alert, awake, oriented to person, oriented to place, oriented to time, oriented to situation, CN II-XII grossly intact. ABSENT: motor sensory deficit Psychiatric exam: PRESENT: appropriate affect, normal mood. ABSENT: homicidal ideation, suicidal ideation Results Laboratory Results: 04/29/18 08:42 04/29/18 05:00 04/29/18 04/29/18 04/29/18 05:00 05:00 08:42 WBC Cancelled 7.6 RBC Cancelled 3.23 L Hgb Cancelled 9.1 L Hct Cancelled 26.6 L MCV Cancelled 82 MCH Cancelled 28.0 MCHC Cancelled 34.1 RDW Cancelled 18.8 H Plt Count Cancelled 475 H Seg Neutrophils % Cancelled 62.6 Lymphocytes % Cancelled 19.4 Monocytes % Cancelled 14.7 H Eosinophils % Cancelled 2.7 Basophils % Cancelled 0.6 Absolute Neutrophils Cancelled 4.7 Absolute Lymphocytes Cancelled 1.5 Absolute Monocytes Cancelled 1.1 Absolute Eosinophils Cancelled 0.2 Absolute Basophils Cancelled 0.0 Sodium 137.3 Potassium 5.1 H Chloride 102 Carbon Dioxide 26 Anion Gap 9 BUN 46 H Creatinine 0.96 Est GFR ( Amer) > 60 Est GFR (Non-Af Amer) > 60 Glucose 338 H Calcium 9.7 Magnesium 2.0 Total Bilirubin 0.3 AST 330 H ALT 227 H Alkaline Phosphatase 234 H Total Protein 7.6 Albumin 3.6 Lipase 604.7 H Qualifiers - * PATIENT BEING DISCHARGED WITH ANY OF THE FOLLOWING DIAGNOSIS: No VTE patient discharged on overlapping Therapy?: No
== END 2018-04-29 15:39 | disposition home or self-care (01) | DRG 438 ==
LOC: ER 07:17 → EH 10:24 → 3W 15:20
PROVIDERS: ADMIT Internal Medicine; ATTEND Internal Medicine
PROC: 30233N1 Transfusion of Nonautologous Red Blood Cells into Peripheral Vein, Percutaneous Approach (ICD-10-PCS; principal; 2018-04-27)
DX: K85.90 Acute pancreatitis without necrosis or infection, unspecified (principal); E10.10 Type 1 diabetes mellitus with ketoacidosis without coma; E87.1 Hypo-osmolality and hyponatremia; K86.1 Other chronic pancreatitis; D50.0 Iron deficiency anemia secondary to blood loss (chronic); F10.10 Alcohol abuse, uncomplicated; F12.10 Cannabis abuse, uncomplicated; R82.5 Elevated urine levels of drugs, medicaments and biological substances; D63.8 Anemia in other chronic diseases classified elsewhere; E78.5 Hyperlipidemia, unspecified; I10 Essential (primary) hypertension; K21.9 Gastro-esophageal reflux disease without esophagitis; F32.9 Major depressive disorder, single episode, unspecified; R00.0 Tachycardia, unspecified; Z91.14 Patient's other noncompliance with medication regimen; Z71.51 Drug abuse counseling and surveillance of drug abuser; Z79.4 Long term (current) use of insulin; Z86.14 Personal history of Methicillin resistant Staphylococcus aureus infection; Z87.891 Personal history of nicotine dependence; Z88.8 Allergy status to other drugs, medicaments and biological substances; Z83.3 Family history of diabetes mellitus; Z83.438 Family history of other disorder of lipoprotein metabolism and other lipidemia; Z82.49 Family history of ischemic heart disease and other diseases of the circulatory system
CPT/HCPCS: 36415; 36430; 80048; 80053; 80307; 81001; 82803; 82962; 83036; 83605; 83690; 83735; 85025; 85027; 85610; 86850; 86900; 86901; 86920; 87086; 93005; 93010; 96360; 96361; 99291; J1815; J2270; J2550; J2765; J3480; J3490; J7030; J7120; P9016

== ENCOUNTER 2018-05-03 06:30 | Inpatient (IN) | payer SELFPAY ==
[2018-05-03] MEDS ORDERED: RINGERS SOLUTION,LACTATED 1,000 ML IV ONE (06:59)
[2018-05-03] MEDS ORDERED: NORMAL SALINE 1000 ML 1,000 ML IV ONE ×2 (06:59→07:18)
[2018-05-03 07:33] LABS: VENOUS BLOOD BASE EXCESS -26.8 mmol/L; VENOUS BLOOD HCO3 3.1 mmol/L (20-32)
[2018-05-03 07:37] LABS: VENOUS BLOOD PCO2 13.6 mmHg (35-63); VENOUS BLOOD PH 6.97 (7.30-7.42)
[2018-05-03 07:47] LABS: ALANINE AMINOTRANSFERASE 82 U/L (21-72); ALBUMIN 3.3 g/dL (3.5-5.0); ALKALINE PHOSPHATASE 238 U/L (38-126); ASPARTATE AMINO TRANSFERASE 26 U/L (17-59); BILIRUBIN,DIRECT 0.3 mg/dL (0.0-0.4); BILIRUBIN,TOTAL 0.3 mg/dL (0.2-1.3); BLOOD UREA NITROGEN 66 mg/dL (7-20); CALCIUM 8.7 mg/dL (8.4-10.2); CHLORIDE 76 mmol/L (98-107); TOTAL PROTEIN 6.5 g/dL (6.3-8.2)
[2018-05-03 07:53] LABS: HEMATOCRIT 34.7 % (37.9-51.0); HEMOGLOBIN 8.9 g/dL (13.5-17.0); MEAN CORPUSCULAR HEMOGLOBIN 26.7 pg (27.0-33.4); MEAN CORPUSCULAR HGB CONC 25.6 g/dL (32.0-36.0); PLATELET COUNT 548 10^3/uL (150-450); RED BLOOD COUNT 3.33 10^6/uL (4.35-5.55); RED CELL DISTRIBUTION WIDTH 18.6 % (11.5-14.0); WHITE BLOOD COUNT 17.1 10^3/uL (4.0-10.5)
[2018-05-03 08:19] LABS: MEAN CORPUSCULAR VOLUME 104 fl (80-97)
[2018-05-03 08:24] LABS: ABSOLUTE LYMPHOCYTES# (MANUAL) 0.9 10^3/uL (0.5-4.7); ABSOLUTE MONOCYTES # (MANUAL) 1.7 10^3/uL (0.1-1.4); ABSOLUTE NEUTROPHILS# (MANUAL) 14.5 10^3/uL (1.7-8.2); BAND NEUTROPHILS % (MANUAL) 2 % (3-5); BASOPHILS % (MANUAL) 0 % (0-2); EOSINOPHILS % (MANUAL) 0 % (0-6); LYMPHOCYTES % (MANUAL) 5 % (13-45); METAMYELOCYTES % (MANUAL) 1 % (0); MONOCYTES % (MANUAL) 10 % (3-13); SEGMENTED NEUTROPHILS % (MAN) 82 % (42-78); TOTAL CELLS COUNTED 100
[2018-05-03 08:25] LABS: TOXIC GRANULATION SLIGHT; TOXIC VACUOLATION PRESENT
[2018-05-03 08:26] LABS: ANISOCYTOSIS 2+; BURR CELLS SLIGHT; PLATELET COMMENT INCREASED; POIKILOCYTOSIS SLIGHT; POLYCHROMASIA SLIGHT
[2018-05-03 08:27] LABS: CARBON DIOXIDE < 5 mmol/L (22-30); GLUCOSE 1412 mg/dL (75-110); POTASSIUM 6.3 mmol/L (3.6-5.0); SODIUM 117.5 mmol/L (137-145)
[2018-05-03] MEDS ORDERED: DEXTROSE 40% GEL 15 GM TUBE PO PRN ×5 (08:27→18:30)
[2018-05-03] MEDS ORDERED: GLUCAGON,HUMAN RECOMB 1 MG INJ IM PRN ×2 (08:27→18:30)
[2018-05-03] MEDS ORDERED: DEXTROSE 50%-WATER 25 GM/50 ML DISP.SYRIN IV PRN ×2 (08:27)
[2018-05-03] MEDS ORDERED: INSULIN REG, HUMAN 100 UNIT/ML 3 ML VIAL (PYX) ONE (08:36)
[2018-05-03] MEDS: NORMAL SALINE 100 ML with INSULIN REGULAR, HUMAN 100 UNIT IV PRN ×6 (08:48→22:34)
[2018-05-03] MEDS ORDERED: ALBUTEROL SULFATE 0.083% NEB 2.5 MG/3 ML AMPUL NEB ONE (08:58)
--- NOTE | 2018-05-03 09:11 | ER Document Report ---
ED General - General Chief Complaint: High Blood Sugar Stated Complaint: DIFFICULTY BREATHING Time Seen by Provider: 05/03/18 06:55 TRAVEL OUTSIDE OF THE [place] IN LAST 30 DAYS: No - HPI Patient complains to provider of: Elevated blood sugar Notes: Patient coming in with a history of noncompliance with his insulin regimen was recently discharged after having a GI bleed and DKA. Patient was brought in for decreased responsiveness. Upon my evaluation patient is having increased respiratory rate with deep breathing. Patient is able to answer some questions does have an intact gag reflex otherwise patient is quite somnolent. Patient otherwise states no complaint states he was unable to get his insulin after being discharged from the hospital states last time he will receive insulin was added upon the time of his discharge. Patient states he is also unable to follow-up with the recent clinic. Denies any chest pain abdominal pain fevers chills nausea vomiting diarrhea. Upon my evaluation patient otherwise looks to have stable vital signs - Related Data Allergies/Adverse Reactions: ondansetron [From Zofran (as hydrochloride)] Allergy (Verified 04/20/18 07:23) Past Medical History - Social History Smoking Status: Unknown if Ever Smoked Family History: DM, Hyperlipidemia, Hypertension - Past Medical History Cardiac Medical History: Reports: Hx Hypercholesterolemia, Hx Hypertension - T aken off medication for same. Denies: Hx Atrial Fibrillation, Hx Congestive Heart Failure, Hx Coronary Artery Disease, Hx Heart Attack, Hx Pulmonary Embolism Pulmonary Medical History: Denies: Hx Asthma, Hx COPD, Hx Sleep Apnea Neurological Medical History: Denies: Hx Migraine, Hx Seizures Endocrine Medical History: Reports: Hx Diabetes Mellitus Type 1, Hx Diabetes Mellitus Type 2. Denies: Hx Hyperthyroidism, Hx Hypothyroidism Renal/ Medical History: Denies: Hx End Stage Renal Disease, Hx Peritoneal Dialysis GI Medical History: Reports: Hx Gastroesophageal Reflux Disease, Hx Pancreatitis, Hx Ulcer. Denies: Hx Cirrhosis, Hx Hepatitis Musculoskeletal Medical History: Denies Hx Arthritis, Denies Hx Fibromyalgia Skin Medical History: Denies Hx Eczema, Denies Hx Psoriasis Psychiatric Medical History: Reports: Hx Depression Infectious Medical History: Reports: Hx MRSA. 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 Denies: Hx Appendectomy, Hx Cholecystectomy, Hx Tonsillectomy - Immunizations Hx Diphtheria, Pertussis, Tetanus Vaccination: Yes Hx Pneumococcal Vaccination: 11/09/11 Review of Systems - Review of Systems Constitutional: Weakness, Other - Decreased responsiveness elevated blood sugar EENT: No symptoms reported Cardiovascular: No symptoms reported Respiratory: No symptoms reported Gastrointestinal: No symptoms reported Genitourinary: No symptoms reported Male Genitourinary: No symptoms reported Musculoskeletal: No symptoms reported Skin: No symptoms reported Hematologic/Lymphatic: No symptoms reported Neurological/Psychological: No symptoms reported -: Yes All other systems reviewed and negative Physical Exam - Vital signs Vitals: Pulse Resp BP Pulse Ox 88 50 H 96/54 L 98 05/03/18 06:36 05/03/18 06:36 05/03/18 06:36 05/03/18 06:36 Interpretation: Hypotensive - General General appearance: Alert, Lethargic - HEENT Head: Normocephalic, Atraumatic Eyes: Normal Pupils: PERRL - Respiratory Respiratory status: No respiratory distress, Tachypnea Chest status: Nontender Breath sounds: Normal Chest palpation: Normal - Cardiovascular Rhythm: Regular Heart sounds: Normal auscultation Murmur: No - Abdominal Inspection: Normal Distension: No distension Bowel sounds: Normal Tenderness: Nontender Organomegaly: No organomegaly - Back Back: Normal, Nontender - Extremities General upper extremity: Normal inspection, Nontender, Normal color, Normal ROM, Normal temperature General lower extremity: Normal inspection, Nontender, Normal color, Normal ROM, Normal temperature, Normal weight bearing. No: Hailey's sign - Neurological Neuro grossly intact: Yes Cognition: Normal Orientation: AAOx4 Unruly Coma Scale Eye Opening: Spontaneous Baring Coma Scale Verbal: Oriented Unruly Coma Scale Motor: Obeys Commands Baring Coma Scale Total: 15 Speech: Normal Motor strength normal: LUE, RUE, LLE, RLE Sensory: Normal - Psychological Associated symptoms: Normal affect, Normal mood - Skin Skin Temperature: Warm Skin Moisture: Dry Skin Color: Normal Course - Re-evaluation Re-evalutation: 05/03/18 13:28 Laboratory studies are consistent with DKA. Patient was given IV fluids started on insulin drip bicarb drip because of acidosis and referred to the hospitalist for admission. - Vital Signs Vital signs: Temp Pulse Resp BP Pulse Ox 89.6 F L 78 15 127/82 H 100 05/03/18 12:33 05/03/18 12:33 05/03/18 12:33 05/03/18 12:33 05/03/18 12:33 - Laboratory Result Diagrams: 05/03/18 07:18 05/03/18 11:53 Laboratory results interpreted by me: 05/03/18 05/03/18 05/03/18 06:45 07:18 07:18 WBC 17.1 H RBC 3.33 L Hgb 8.9 L Hct 34.7 L MCV 104 H D MCH 26.7 L MCHC 25.6 L RDW 18.6 H Plt Count 548 H Seg Neuts % (Manual) 82 H Band Neutrophils % 2 L Lymphocytes % (Manual) 5 L Metamyelocytes % 1 H Abs Neuts (Manual) 14.5 H Abs Monocytes (Manual) 1.7 H VBG pH VBG pCO2 VBG HCO3 Sodium 117.5 L* Potassium 6.3 H* Chloride 76 L Carbon Dioxide < 5 L* BUN 66 H Creatinine 2.11 H Est GFR ( Amer) 43 L Est GFR (Non-Af Amer) 36 L Glucose 1412 H* POC Glucose > 550 H* ALT 82 H Alkaline Phosphatase 238 H Albumin 3.3 L 05/03/18 05/03/18 07:18 08:57 WBC RBC Hgb Hct MCV MCH MCHC RDW Plt Count Seg Neuts % (Manual) Band Neutrophils % Lymphocytes % (Manual) Metamyelocytes % Abs Neuts (Manual) Abs Monocytes (Manual) VBG pH 6.97 L* VBG pCO2 13.6 L* VBG HCO3 3.1 L Sodium 120.4 L* Potassium 6.1 H* Chloride 82 L Carbon Dioxide < 5 L* BUN 66 H Creatinine 2.07 H Est GFR ( Amer) 44 L Est GFR (Non-Af Amer) 37 L Glucose 1328 H* POC Glucose ALT Alkaline Phosphatase Albumin Critical Care Note - Critical Care Note Total time excluding time spent on procedures (mins): 35 Comments: Multiple evaluations for patient with DKA requiring ultrasound-guided IV access blood draw Discharge - Discharge Clinical Impression: Uncontrolled diabetes mellitus, DKA (diabetic ketoacidoses), Noncompliance, DKA, type 1, Hyperkalemia, Tobacco abuse, Nausea Condition: Serious Disposition: ADMITTED INPATIENT Admitting Provider: Hospitalist - Akanks[facility] Unit Admitted: ICU
[2018-05-03] MEDS: DEXTROSE 5%-WATER 1000 ML 1,000 ML with SODIUM BICARBONATE 150 MEQ IV PRN ×6 (09:34→23:13)
[2018-05-03 09:38] LABS: BLOOD UREA NITROGEN 66 mg/dL (7-20); CALCIUM 8.8 mg/dL (8.4-10.2); CHLORIDE 82 mmol/L (98-107)
--- NOTE | 2018-05-03 09:48 | EKG REPORT ---
SEVERITY:- ABNORMAL ECG - SINUS RHYTHM NONSPECIFIC INTRAVENTRICULAR CONDUCTION DELAY : Confirmed by: Carlota North MD 03-May-2018 09:48:27
[2018-05-03 10:15] LABS: ALCOHOL < 10 mg/dL (NONE DETECTED)
[2018-05-03 10:17] LABS: CARBON DIOXIDE < 5 mmol/L (22-30); GLUCOSE 1328 mg/dL (75-110); POTASSIUM 6.1 mmol/L (3.6-5.0); SODIUM 120.4 mmol/L (137-145)
[2018-05-03] MEDS ORDERED: INSULIN REG, HUMAN 100 UNIT/ML 3 ML VIAL (PYX) IV ONE (10:21)
[2018-05-03] MEDS: PANTOPRAZOLE SODIUM 40 MG VIAL IV SCH ×2 (10:51→21:21)
--- NOTE | 2018-05-03 11:33 | RADIOLOGY REPORT (SQ) ---
EXAM DESCRIPTION: CHEST SINGLE VIEW COMPLETED DATE/TIME: 05/03/2018 11:27 am REASON FOR STUDY: chest PA upright Cough, shortness of breath COMPARISON: 04/17/2018 EXAM PARAMETERS: NUMBER OF VIEWS: One view. TECHNIQUE: Single frontal radiographic view of the chest acquired. RADIATION DOSE: NA LIMITATIONS: None. FINDINGS: LUNGS AND PLEURA: There is focal airspace disease in the right upper lobe new from prior s tudy. Findings are consistent with pneumonia. Lung boss are otherwise clear. No effusions. MEDIASTINUM AND HILAR STRUCTURES: No masses. Contour normal. HEART AND VASCULAR STRUCTURES: Heart normal in size. Normal vasculature. BONES: No acute findings. HARDWARE: None in the chest. OTHER: No other significant finding. IMPRESSION: Focal airspace disease in the right upper lobe consistent with pneumonia. This is new f rom prior study. TECHNICAL DOCUMENTATION: JOB ID: [id number] [employer]- All Rights Reserved Reading location - IP/workstation name: [email or web address]
--- NOTE | 2018-05-03 11:35 | RADIOLOGY REPORT (SQ) ---
EXAM DESCRIPTION: KUB/ABDOMEN (SINGLE VIEW) COMPLETED DATE/TIME: 05/03/2018 11:27 am REASON FOR STUDY: abd pain COMPARISON: 09/15/2017 NUMBER OF VIEWS: One view. TECHNIQUE: Supine radiographic image of the abdomen acquired. LIMITATIONS: None. FINDINGS: BOWEL GAS PATTERN: Normal bowel gas pattern. No dilated loops. CALCIFICATIONS: No suspicious calcifications. SOFT TISSUES: No gross mass or suggestion of organomegaly. HARDWARE: None in the abdomen. BONES: No acute fracture. No worrisome bone lesions. OTHER: No other significant finding. IMPRESSION: NO RADIOGRAPHIC EVIDENCE FOR ACUTE ABDOMINAL DISEASE. TECHNICAL DOCUMENTATION: JOB ID: [id number] [employer]- All Rights Reserved Reading location - IP/workstation name: [email or web address]
[2018-05-03 12:19] LABS: BLOOD UREA NITROGEN 67 mg/dL (7-20); CALCIUM 8.5 mg/dL (8.4-10.2); CHLORIDE 86 mmol/L (98-107); POTASSIUM 5.2 mmol/L (3.6-5.0); SODIUM 123.1 mmol/L (137-145)
[2018-05-03 12:35] LABS: CARBON DIOXIDE < 5 mmol/L (22-30); GLUCOSE 1227 mg/dL (75-110)
[2018-05-03] MEDS: PROMETHAZINE HCL INJ 25 MG/1 ML VIAL IV PRN ×2 (15:10→20:01)
[2018-05-03] MEDS: MORPHINE SULFATE 10 MG/ML INJ IV PRN ×2 (15:10→20:00)
[2018-05-03 15:12] LABS: BLOOD UREA NITROGEN 66 mg/dL (7-20); CALCIUM 8.4 mg/dL (8.4-10.2); CHLORIDE 88 mmol/L (98-107); POTASSIUM 4.4 mmol/L (3.6-5.0); SODIUM 124.9 mmol/L (137-145)
[2018-05-03 15:40] LABS: CARBON DIOXIDE < 5 mmol/L (22-30); GLUCOSE 1098 mg/dL (75-110)
--- NOTE | 2018-05-03 17:01 | PDOC CONSULTATION ---
History of Present Illness Admission Date/PCP: 05/03/18 09:37 Patient complains of: Generalized pain. Nausea vomiting. History of Present Illness: CHESTER MCKEON is a 38 year old male currently in the hospital for management of diabetic ketoacidosis. Patient complained of multiple episodes of nausea and vomiting with some blood in the emesis as well as dark stools for the past couple of days. Patient had a similar occurrence couple weeks ago and was hospitalized but did not undergo endoscopic evaluation. Patient has no known history of peptic ulcer disease. He has chronic pancreatitis. He denies any recent alcohol abuse. He denies any NSAID abuse. He denies any history of cirrhosis. Past Medical History Cardiac Medical History: Reports: Hyperlipidema, Hypertension - Taken off medication for same. Denies: Atrial Fibrillation, Congestive Heart Failure, Coronary Artery Disease, Myocardial Infarction, Pulmonary Embolism Pulmonary Medical History: Denies: Asthma, Chronic Obstructive Pulmonary Disease (COPD), Sleep Apnea Neurological Medical History: Denies: Migraine, Seizures Endocrine Medical History: Reports: Diabetes Mellitus Type 1, Diabetes Mellitus Type 2 Denies: Hyperthyroidism, Hypothyroidism Renal/ Medical History: Denies: End Stage Renal Disease GI Medical History: Reports: Gastroesophageal Reflux Disease Denies: Cirrhosis, Hepatitis Musculoskeltal Medical History: Denies: Arthritis, Fibromyalgia Skin Medical History: Denies: Eczema, Psoriasis Psychiatric Medical History: Reports: Depression Hematology: Reports: Anemia - Chronic illnesses Denies: Bleeding Tendencies Infectious Medical History: Reports: Methicillin-Resistant Staph Aureus Denies: Clostridium Difficile Past Surgical History Past Surgical History: Reports: Orthopedic Surgery - back, left long finger PIP disarticulation, now s/p right hand I and D Denies: Appendectomy, Cholecystectomy, Tonsillectomy Social History Smoking Status: Former Smoker Frequency of Alcohol Use: None Hx Recreational Drug Use: Yes Drugs: Marijuana Hx Prescription Drug Abuse: No - Advance Directive Resuscitation Status: Full Code Family History Family History: DM, Hyperlipidemia, Hypertension Parental Family History Reviewed: No Children Family History Reviewed: No Sibling(s) Family History Reviewed.: No Medication/Allergy Home Medications: Insulin Aspart [Novolog Flexpen] See Protocol SUBCUT MEALS 04/20/18 Insulin Glargine,Hum.rec.anlog [Lantus Insulin 100 Unit/1 ml 10 ml] 40 unit SUBC UT Q12 30 Days #4 vial 04/29/18 Allergies/Adverse Reactions: ondansetron [From Zofran (as hydrochloride)] Allergy (Verified 04/20/18 07:23) Physical Exam Vital Signs: Temp Pulse Resp BP Pulse Ox 97.3 F 95 17 107/66 100 05/03/18 16:00 05/03/18 16:00 05/03/18 16:00 05/03/18 16:00 05/03/18 16:00 Intake & Output 05/02/18 05/03/18 05/04/18 06:59 06:59 06:59 Intake Total 2025 Output Total 0 Balance -1824 Weight 63.503 kg 63.7 kg General appearance: PRESENT: disheveled, mild distress Eye exam: PRESENT: conjunctiva pink Respiratory exam: PRESENT: clear to auscultation alfonso Cardiovascular exam: PRESENT: RRR GI/Abdominal exam: PRESENT: other - Soft, nondistended, patient complains of diffuse abdominal tenderness but I am unable to elicit any peritoneal signs. Psychiatric exam: PRESENT: agitated Skin exam: PRESENT: warm Results Laboratory Results: 05/03/18 07:18 05/03/18 14:40 05/03/18 05/03/18 05/03/18 07:18 07:18 07:18 WBC 17.1 H RBC 3.33 L Hgb 8.9 L Hct 34.7 L MCV 104 H D MCH 26.7 L MCHC 25.6 L RDW 18.6 H Plt Count 548 H Seg Neutrophils % Not Reportable Lymphocytes % Not Reportable Monocytes % Not Reportable Eosinophils % Not Reportable Basophils % Not Reportable Absolute Neutrophils Not Reportable Absolute Lymphocytes Not Reportable Absolute Monocytes Not Reportable Absolute Eosinophils Not Reportable Absolute Basophils Not Reportable VBG pH VBG pCO2 VBG HCO3 VBG Base Excess Sodium 117.5 L* Potassium 6.3 H* Chloride 76 L Carbon Dioxide < 5 L* Anion Gap Not Reportable BUN 66 H Creatinine 2.11 H Est GFR ( Amer) 43 L Est GFR (Non-Af Amer) 36 L Glucose 1412 H* Serum Osmolality Lactic Acid 1.6 Calcium 8.7 Total Bilirubin 0.3 AST 26 ALT 82 H Alkaline Phosphatase 238 H Total Protein 6.5 Albumin 3.3 L Lipase Stool Occult Blood 05/03/18 05/03/18 05/03/18 07:18 07:18 08:57 WBC RBC Hgb Hct MCV MCH MCHC RDW Plt Count Seg Neutrophils % Lymphocytes % Monocytes % Eosinophils % Basophils % Absolute Neutrophils Absolute Lymphocytes Absolute Monocytes Absolute Eosinophils Absolute Basophils VBG pH 6.97 L* VBG pCO2 13.6 L* VBG HCO3 3.1 L VBG Base Excess -26.8 Sodium 120.4 L* Potassium 6.1 H* Chloride 82 L Carbon Dioxide < 5 L* Anion Gap Not Reportable BUN 66 H Creatinine 2.07 H Est GFR ( Amer) 44 L Est GFR (Non-Af Amer) 37 L Glucose 1328 H* Serum Osmolality Lactic Acid Calcium 8.8 Total Bilirubin AST ALT Alkaline Phosphatase Total Protein Albumin Lipase 190.5 Stool Occult Blood 05/03/18 05/03/18 05/03/18 08:57 10:49 11:53 WBC RBC Hgb Hct MCV MCH MCHC RDW Plt Count Seg Neutrophils % Lymphocytes % Monocytes % Eosinophils % Basophils % Absolute Neutrophils Absolute Lymphocytes Absolute Monocytes Absolute Eosinophils Absolute Basophils VBG pH VBG pCO2 VBG HCO3 VBG Base Excess Sodium 123.1 L Potassium 5.2 H Chloride 86 L Carbon Dioxide < 5 L* Anion Gap Not Reportable BUN 67 H Creatinine 1.97 H Est GFR ( Amer) 47 L Est GFR (Non-Af Amer) 39 L Glucose 1227 H* Serum Osmolality 365 H Lactic Acid Calcium 8.5 Total Bilirubin AST ALT Alkaline Phosphatase Total Protein Albumin Lipase Stool Occult Blood POSITIVE 05/03/18 14:40 WBC RBC Hgb Hct MCV MCH MCHC RDW Plt Count Seg Neutrophils % Lymphocytes % Monocytes % Eosinophils % Basophils % Absolute Neutrophils Absolute Lymphocytes Absolute Monocytes Absolute Eosinophils Absolute Basophils VBG pH VBG pCO2 VBG HCO3 VBG Base Excess Sodium 124.9 L Potassium 4.4 Chloride 88 L Carbon Dioxide < 5 L* Anion Gap Not Reportable BUN 66 H Creatinine 1.81 H Est GFR ( Amer) 52 L Est GFR (Non-Af Amer) 43 L Glucose 1098 H* Serum Osmolality Lactic Acid Calcium 8.4 Total Bilirubin AST ALT Alkaline Phosphatase Total Protein Albumin Lipase Stool Occult Blood Impressions: Chest X-Ray 05/03/18 09:59 IMPRESSION: Focal airspace disease in the right upper lobe consistent with pneumonia. This is new from prior study. KUB X-Ray 05/03/18 10:00 IMPRESSION: NO RADIOGRAPHIC EVIDENCE FOR ACUTE ABDOMINAL DISEASE. Assessment & Plan - Diagnosis (1) Gastrointestinal bleed Is this a current diagnosis for this admission?: Yes Plan: History suggestive of upper gastrointestinal bleed. Really uncertain of the severity of the bleed but I suspect that it is more related with multiple episodes of emesis related with diabetic ketoacidosis. His last episode of dark stool and bloody emesis was this morning. Will await correction of his severe metabolic derangement prior to an upper endoscopy. Will check serial hematocrits. If he does demonstrate evidence of a brisk bleed will do endoscopy tonight. Otherwise we will plan this study when he is more stable from a metabolic standpoint. In light of his diffuse abdominal pain I will obtain a noncontrasted CT scan today.
[2018-05-03 18:13] LABS: HEMOGLOBIN 8.1 g/dL (13.5-17.0); MEAN CORPUSCULAR HEMOGLOBIN 26.6 pg (27.0-33.4); MEAN CORPUSCULAR HGB CONC 32.3 g/dL (32.0-36.0); PLATELET COUNT 540 10^3/uL (150-450); RED BLOOD COUNT 3.03 10^6/uL (4.35-5.55); RED CELL DISTRIBUTION WIDTH 17.3 % (11.5-14.0); WHITE BLOOD COUNT 14.3 10^3/uL (4.0-10.5)
[2018-05-03 18:30] LABS: MEAN CORPUSCULAR VOLUME 83 fl (80-97)
[2018-05-03] MEDS ORDERED: DEXTROSE 50%-WATER SYRINGE 12.5 GM/25 ML DOSE IV PRN (18:30)
[2018-05-03] MEDS ORDERED: DEXTROSE 40% GEL 15 GM TUBE X 2 PO PRN (18:30)
[2018-05-03] MEDS ORDERED: DEXTROSE 50%-WATER SYRINGE 25 GM/50 ML DOSE IV PRN (18:30)
[2018-05-03 18:41] LABS: ABSOLUTE LYMPHOCYTES# (MANUAL) 1.4 10^3/uL (0.5-4.7); ABSOLUTE MONOCYTES # (MANUAL) 1.3 10^3/uL (0.1-1.4); ABSOLUTE NEUTROPHILS# (MANUAL) 11.4 10^3/uL (1.7-8.2); BAND NEUTROPHILS % (MANUAL) 2 % (3-5); BASOPHILS % (MANUAL) 0 % (0-2); EOSINOPHILS % (MANUAL) 1 % (0-6); LYMPHOCYTES % (MANUAL) 10 % (13-45); MONOCYTES % (MANUAL) 9 % (3-13); PLATELET COMMENT INCREASED; SEGMENTED NEUTROPHILS % (MAN) 78 % (42-78); TOTAL CELLS COUNTED 100; TOXIC GRANULATION SLIGHT; TOXIC VACUOLATION PRESENT
[2018-05-03] MEDS: NORMAL SALINE 1000 ML 1,000 ML IV PRN (20:01)
[2018-05-03 20:02] LABS: ANION GAP 16 (5-19); BLOOD UREA NITROGEN 61 mg/dL (7-20); CALCIUM 8.6 mg/dL (8.4-10.2); CHLORIDE 95 mmol/L (98-107); POTASSIUM 3.6 mmol/L (3.6-5.0); SODIUM 132.6 mmol/L (137-145)
[2018-05-03 20:15] LABS: GLUCOSE 661 mg/dL (75-110)
[2018-05-03 20:43] LABS: CARBON DIOXIDE 22 mmol/L (22-30)
[2018-05-03] MEDS: LEVOFLOXACIN 750 MG/D5W RTU 750 MG/150 ML RTUPB IV SCH (21:22)
--- NOTE | 2018-05-03 21:42 | RADIOLOGY REPORT (SQ) ---
CT ABDOMEN PELVIS WITHOUT IV CONTRAST HISTORY: Diffuse abdominal pain. COMPARISON: None. TECHNIQUE: CT scan of the abdomen and pelvis without IV contrast. This exam was performed according to our departmental dose-optimization program, which includes automated exposure control, adjustment of the mA and/or kV according to patient size and/or use of iterative reconstruction technique. FINDINGS: There is mild atelectasis/scarring at the right lung base. No pleural or pericardial effusions. The liver, spleen, and adrenal glands are normal. The gallbladder is contracted, limiting evaluation. Multiple calcifications in the region of the pancreatic head and neck. No definite evidence of hydronephrosis or obstructing urinary stones. A Bar catheter is seen in the bladder. No evidence of small bowel obstruction or acute diverticulitis. There are multiple fluid-filled loops of small bowel which may represent enteritis. The appendix is normal. No intraperitoneal free fluid or free air is seen. There is a chronic appearing deformity of the lumbosacral junction. The aorta is normal caliber. No body wall hernia is seen. IMPRESSION: Query enteritis of distal small bowel loops.
[2018-05-03 23:18] LABS: HEMATOCRIT 24.9 % (37.9-51.0); HEMOGLOBIN 8.5 g/dL (13.5-17.0); MEAN CORPUSCULAR HEMOGLOBIN 26.9 pg (27.0-33.4); PLATELET COUNT 493 10^3/uL (150-450); RED BLOOD COUNT 3.16 10^6/uL (4.35-5.55); RED CELL DISTRIBUTION WIDTH 17.2 % (11.5-14.0); WHITE BLOOD COUNT 10.1 10^3/uL (4.0-10.5)
[2018-05-03 23:24] LABS: INTERNATIONAL RATION (INR) 0.96; PROTHROMBIN TIME 13.3 SEC (11.4-15.4)
[2018-05-03 23:25] LABS: PARTIAL THROMBOPLASTIN TIME 37.1 SEC (23.5-35.8)
[2018-05-03 23:27] LABS: MEAN CORPUSCULAR VOLUME 79 fl (80-97)
[2018-05-03 23:37] LABS: ANION GAP 7 (5-19); BLOOD UREA NITROGEN 55 mg/dL (7-20); CALCIUM 8.2 mg/dL (8.4-10.2); CARBON DIOXIDE 30 mmol/L (22-30); CHLORIDE 98 mmol/L (98-107); POTASSIUM 3.4 mmol/L (3.6-5.0)
--- NOTE | 2018-05-03 23:52 | PDOC PROGRESS REPORT ---
Subjective Progress Note for:: 05/03/18 Subjective:: States that he still feels lousy. Patient looks more comfortable. Reason For Visit: POSSIBLE GI BLEED Physical Exam Vital Signs: Temp Pulse Resp BP Pulse Ox 98.4 F 94 8 L 95/52 L 99 05/03/18 23:02 05/03/18 18:00 05/03/18 22:16 05/03/18 22:16 05/03/18 22:16 Intake & Output 05/02/18 05/03/18 05/04/18 06:59 06:59 06:59 Intake Total 5245 Output Total 5380 Balance -135 Weight 63.503 kg 63.7 kg General appearance: PRESENT: no acute distress, cooperative, disheveled Respiratory exam: PRESENT: clear to auscultation alfonso Cardiovascular exam: PRESENT: RRR GI/Abdominal exam: PRESENT: other - Soft, nondistended, diffuse abdominal tenderness but appears less than earlier today. No peritoneal signs. Again abdomen is very soft. Results Laboratory Results: 05/03/18 23:10 05/03/18 05/03/18 05/03/18 07:18 07:18 07:18 WBC 17.1 H RBC 3.33 L Hgb 8.9 L Hct 34.7 L MCV 104 H D MCH 26.7 L MCHC 25.6 L RDW 18.6 H Plt Count 548 H Seg Neutrophils % Not Reportable Lymphocytes % Not Reportable Monocytes % Not Reportable Eosinophils % Not Reportable Basophils % Not Reportable Absolute Neutrophils Not Reportable Absolute Lymphocytes Not Reportable Absolute Monocytes Not Reportable Absolute Eosinophils Not Reportable Absolute Basophils Not Reportable VBG pH VBG pCO2 VBG HCO3 VBG Base Excess Sodium 117.5 L* Potassium 6.3 H* Chloride 76 L Carbon Dioxide < 5 L* Anion Gap Not Reportable BUN 66 H Creatinine 2.11 H Est GFR ( Amer) 43 L Est GFR (Non-Af Amer) 36 L Glucose 1412 H* Serum Osmolality Lactic Acid 1.6 Calcium 8.7 Total Bilirubin 0.3 AST 26 ALT 82 H Alkaline Phosphatase 238 H Total Protein 6.5 Albumin 3.3 L Lipase Stool Occult Blood 05/03/18 05/03/18 05/03/18 07:18 07:18 08:57 WBC RBC Hgb Hct MCV MCH MCHC RDW Plt Count Seg Neutrophils % Lymphocytes % Monocytes % Eosinophils % Basophils % Absolute Neutrophils Absolute Lymphocytes Absolute Monocytes Absolute Eosinophils Absolute Basophils VBG pH 6.97 L* VBG pCO2 13.6 L* VBG HCO3 3.1 L VBG Base Excess -26.8 Sodium 120.4 L* Potassium 6.1 H* Chloride 82 L Carbon Dioxide < 5 L* Anion Gap Not Reportable BUN 66 H Creatinine 2.07 H Est GFR ( Amer) 44 L Est GFR (Non-Af Amer) 37 L Glucose 1328 H* Serum Osmolality Lactic Acid Calcium 8.8 Total Bilirubin AST ALT Alkaline Phosphatase Total Protein Albumin Lipase 190.5 Stool Occult Blood 05/03/18 05/03/18 05/03/18 08:57 10:49 11:53 WBC RBC Hgb Hct MCV MCH MCHC RDW Plt Count Seg Neutrophils % Lymphocytes % Monocytes % Eosinophils % Basophils % Absolute Neutrophils Absolute Lymphocytes Absolute Monocytes Absolute Eosinophils Absolute Basophils VBG pH VBG pCO2 VBG HCO3 VBG Base Excess Sodium 123.1 L Potassium 5.2 H Chloride 86 L Carbon Dioxide < 5 L* Anion Gap Not Reportable BUN 67 H Creatinine 1.97 H Est GFR ( Amer) 47 L Est GFR (Non-Af Amer) 39 L Glucose 1227 H* Serum Osmolality 365 H Lactic Acid Calcium 8.5 Total Bilirubin AST ALT Alkaline Phosphatase Total Protein Albumin Lipase Stool Occult Blood POSITIVE 05/03/18 05/03/18 05/03/18 14:40 17:50 17:50 WBC 14.3 H RBC 3.03 L Hgb 8.1 L Hct 25.0 L MCV 83 D MCH 26.6 L MCHC 32.3 RDW 17.3 H Plt Count 540 H Seg Neutrophils % Not Reportable Lymphocytes % Not Reportable Monocytes % Not Reportable Eosinophils % Not Reportable Basophils % Not Reportable Absolute Neutrophils Not Reportable Absolute Lymphocytes Not Reportable Absolute Monocytes Not Reportable Absolute Eosinophils Not Reportable Absolute Basophils Not Reportable VBG pH VBG pCO2 VBG HCO3 VBG Base Excess Sodium 124.9 L Cancelled Potassium 4.4 Cancelled Chloride 88 L Cancelled Carbon Dioxide < 5 L* Cancelled Anion Gap Not Reportable Cancelled BUN 66 H Cancelled Creatinine 1.81 H Cancelled Est GFR ( Amer) 52 L Cancelled Est GFR (Non-Af Amer) 43 L Cancelled Glucose 1098 H* Cancelled Serum Osmolality Lactic Acid Calcium 8.4 Cancelled Total Bilirubin AST ALT Alkaline Phosphatase Total Protein Albumin Lipase Stool Occult Blood 05/03/18 05/03/18 19:44 23:10 WBC 10.1 RBC 3.16 L Hgb 8.5 L Hct 24.9 L MCV 79 L D MCH 26.9 L MCHC 34.0 RDW 17.2 H Plt Count 493 H Seg Neutrophils % Lymphocytes % Monocytes % Eosinophils % Basophils % Absolute Neutrophils Absolute Lymphocytes Absolute Monocytes Absolute Eosinophils Absolute Basophils VBG pH VBG pCO2 VBG HCO3 VBG Base Excess Sodium 132.6 L Potassium 3.6 Chloride 95 L Carbon Dioxide 22 D Anion Gap 16 BUN 61 H Creatinine 1.40 H Est GFR ( Amer) > 60 Est GFR (Non-Af Amer) 57 L Glucose 661 H* Serum Osmolality Lactic Acid Calcium 8.6 Total Bilirubin AST ALT Alkaline Phosphatase Total Protein Albumin Lipase Stool Occult Blood Impressions: Abdomen/Pelvis CT 05/03/18 00:00 IMPRESSION: Query enteritis of distal small bowel loops. Chest X-Ray 05/03/18 09:59 IMPRESSION: Focal airspace disease in the right upper lobe consistent with pneumonia. This is new from prior study. KUB X-Ray 05/03/18 10:00 IMPRESSION: NO RADIOGRAPHIC EVIDENCE FOR ACUTE ABDOMINAL DISEASE. Assessment & Plan - Diagnosis (1) Gastrointestinal bleed Is this a current diagnosis for this admission?: Yes Plan: Patient with no further episodes of emesis and no bowel movements throughout the day. His hematocrit decreased after copious amounts of hydration to 25% but has remained stable since. Metabolic derangement has markedly improved. I do not think he has ongoing blood loss. We will plan EGD in the morning. In regards to his abdominal pain likely related with chronic pancreatitis. CT scan does demonstrate some fluid-filled small bowel and pancreatic calcifications. I do not think his clinical course is consistent with ischemic bowel.
[2018-05-03 23:54] LABS: GLUCOSE 523 mg/dL (75-110)
[2018-05-04] MEDS: MORPHINE SULFATE 10 MG/ML INJ IV PRN ×6 (00:13→21:08)
[2018-05-04] MEDS: PROMETHAZINE HCL INJ 25 MG/1 ML VIAL IV PRN ×6 (00:13→21:09)
[2018-05-04] MEDS: POTASSI CL 20 MEQ/50 ML RIDER 20 MEQ/50 ML RTUPB IV SCH ×2 (00:14→01:39)
[2018-05-04] MEDS: NORMAL SALINE 1000 ML 1,000 ML IV PRN ×2 (04:02→16:49)
[2018-05-04 04:20] LABS: HEMATOCRIT 25.1 % (37.9-51.0); HEMOGLOBIN 8.6 g/dL (13.5-17.0); MEAN CORPUSCULAR HEMOGLOBIN 26.9 pg (27.0-33.4); MEAN CORPUSCULAR HGB CONC 34.2 g/dL (32.0-36.0); MEAN CORPUSCULAR VOLUME 79 fl (80-97); PLATELET COUNT 449 10^3/uL (150-450); RED BLOOD COUNT 3.19 10^6/uL (4.35-5.55); RED CELL DISTRIBUTION WIDTH 17.5 % (11.5-14.0); WHITE BLOOD COUNT 9.9 10^3/uL (4.0-10.5)
[2018-05-04 04:24] LABS: ALANINE AMINOTRANSFERASE 55 U/L (21-72); ALBUMIN 2.8 g/dL (3.5-5.0); ALKALINE PHOSPHATASE 173 U/L (38-126); ANION GAP 5 (5-19); ASPARTATE AMINO TRANSFERASE 15 U/L (17-59); BILIRUBIN,DIRECT 0.2 mg/dL (0.0-0.4); BILIRUBIN,TOTAL 0.2 mg/dL (0.2-1.3); BLOOD UREA NITROGEN 47 mg/dL (7-20); CALCIUM 8.3 mg/dL (8.4-10.2); CARBON DIOXIDE 32 mmol/L (22-30); CHLORIDE 103 mmol/L (98-107); GLUCOSE 207 mg/dL (75-110); POTASSIUM 3.6 mmol/L (3.6-5.0); SODIUM 139.8 mmol/L (137-145); TOTAL PROTEIN 6.1 g/dL (6.3-8.2)
[2018-05-04] MEDS ORDERED: NORMAL SALINE 1000 ML 1,000 ML IV ONE (05:00)
[2018-05-04 05:01] LABS: ABSOLUTE LYMPHOCYTES# (MANUAL) 1.1 10^3/uL (0.5-4.7); ABSOLUTE MONOCYTES # (MANUAL) 1.3 10^3/uL (0.1-1.4); ABSOLUTE NEUTROPHILS# (MANUAL) 7.5 10^3/uL (1.7-8.2); BAND NEUTROPHILS % (MANUAL) 2 % (3-5); BASOPHILS % (MANUAL) 0 % (0-2); EOSINOPHILS % (MANUAL) 0 % (0-6); LYMPHOCYTES % (MANUAL) 9 % (13-45); MONOCYTES % (MANUAL) 13 % (3-13); SEGMENTED NEUTROPHILS % (MAN) 74 % (42-78); TOTAL CELLS COUNTED 100
[2018-05-04 05:02] LABS: ANISOCYTOSIS 1+; HYPOCHROMASIA 1+; POIKILOCYTOSIS 1+
[2018-05-04 05:03] LABS: PLATELET COMMENT ADEQUATE; SPHEROCYTES SLIGHT
[2018-05-04] MEDS ORDERED: DEXTROSE 5%-1/2 NORMAL SALINE 1,000 ML IV PRN (08:08)
[2018-05-04] MEDS ORDERED: NORMAL SALINE 100 ML with INSULIN REGULAR, HUMAN 100 UNIT IV PRN ×2 (08:21)
--- NOTE | 2018-05-04 08:21 | PDOC H&P ---
History of Present Illness Admission Date/PCP: 05/03/18 09:37 Patient complains of: vomiting, abdominal pain History of Present Illness: CHESTER MCKEON is a 38 year old male with a PMH of uncontrolled IDDM, multiple prior DKAs, poor compliance, alcohol abuse, tobacco dependence and polysubstance abuse who presented with nausea, vomiting and abdominal pain for the past 2 days. He was recently discharged a week ago for DKA and was discharged on Lantus. Patient says he does not have insurance and was not able to obtain insulin supplies. He had multiple nonbilious vomiting some of which were bloody. He also reports of associated black stools (>5x). He has crampy generalized abdominal pain. In the ER, he was initially lethargic. He was found to be in severe DKA. He has received 3L of fluid bolus, was started on insulin and bicarbonate drip. Upon encounter, he was more awake and alert and is now oriented x 3. Past Medical History Cardiac Medical History: Reports: Hyperlipidema, Hypertension - Taken off medication for same. Denies: Atrial Fibrillation, Congestive Heart Failure, Coronary Artery Disease, Myocardial Infarction, Pulmonary Embolism Pulmonary Medical History: Denies: Asthma, Chronic Obstructive Pulmonary Disease (COPD), Sleep Apnea Neurological Medical History: Denies: Migraine, Seizures Endocrine Medical History: Reports: Diabetes Mellitus Type 1, Diabetes Mellitus Type 2 Denies: Hyperthyroidism, Hypothyroidism Renal/ Medical History: Denies: End Stage Renal Disease GI Medical History: Reports: Gastroesophageal Reflux Disease Denies: Cirrhosis, Hepatitis Musculoskeltal Medical History: Denies: Arthritis, Fibromyalgia Skin Medical History: Denies: Eczema, Psoriasis Psychiatric Medical History: Reports: Depression Hematology: Reports: Anemia - Chronic illnesses Denies: Bleeding Tendencies Infectious Medical History: Reports: Methicillin-Resistant Staph Aureus Denies: Clostridium Difficile Past Surgical History Past Surgical History: Reports: Orthopedic Surgery - back, left long finger PIP disarticulation, now s/p right hand I and D Denies: Appendectomy, Cholecystectomy, Tonsillectomy Social History Smoking Status: Unknown if Ever Smoked Frequency of Alcohol Use: None Hx Recreational Drug Use: Yes Drugs: Marijuana Hx Prescription Drug Abuse: No - Advance Directive Resuscitation Status: Full Code Family History Family History: DM, Hyperlipidemia, Hypertension Parental Family History Reviewed: Yes - no premature CAD Children Family History Reviewed: No Sibling(s) Family History Reviewed.: No Medication/Allergy Home Medications: Insulin Aspart [Novolog Flexpen] See Protocol SUBCUT MEALS 04/20/18 Insulin Glargine,Hum.rec.anlog [Lantus Insulin 100 Unit/1 ml 10 ml] 40 unit SUBCUT Q12 30 Days #4 vial 04/29/18 Allergies/Adverse Reactions: ondansetron [From Zofran (as hydrochloride)] Allergy (Verified 04/20/18 07:23) Review of Systems All systems: reviewed and no additional remarkable complaints except as stated - as mentioned in HPI Physical Exam Vital Signs: Temp Pulse Resp BP Pulse Ox 89.6 F L 78 15 127/82 H 100 05/03/18 12:33 05/03/18 12:33 05/03/18 12:33 05/03/18 12:33 05/03/18 12:33 Intake & Output 05/02/18 05/03/18 05/04/18 06:59 06:59 06:59 Intake Total 2026 Output Total 650 Balance 1376 Weight 140 lb 140 lb 6.951 oz Results Laboratory Results: 05/03/18 07:18 05/03/18 05/03/18 05/03/18 07:18 07:18 07:18 WBC 17.1 H RBC 3.33 L Hgb 8.9 L Hct 34.7 L MCV 104 H D MCH 26.7 L MCHC 25.6 L RDW 18.6 H Plt Count 548 H Seg Neutrophils % Not Reportable Lymphocytes % Not Reportable Monocytes % Not Reportable Eosinophils % Not Reportable Basophils % Not Reportable Absolute Neutrophils Not Reportable Absolute Lymphocytes Not Reportable Absolute Monocytes Not Reportable Absolute Eosinophils Not Reportable Absolute Basophils Not Reportable VBG pH VBG pCO2 VBG HCO3 VBG Base Excess Sodium 117.5 L* Potassium 6.3 H* Chloride 76 L Carbon Dioxide < 5 L* Anion Gap Not Reportable BUN 66 H Creatinine 2.11 H Est GFR ( Amer) 43 L Est GFR (Non-Af Amer) 36 L Glucose 1412 H* Serum Osmolality Lactic Acid 1.6 Calcium 8.7 Total Bilirubin 0.3 AST 26 ALT 82 H Alkaline Phosphatase 238 H Total Protein 6.5 Albumin 3.3 L Lipase Stool Occult Blood 05/03/18 05/03/18 05/03/18 07:18 07:18 08:57 WBC RBC Hgb Hct MCV MCH MCHC RDW Plt Count Seg Neutrophils % Lymphocytes % Monocytes % Eosinophils % Basophils % Absolute Neutrophils Absolute Lymphocytes Absolute Monocytes Absolute Eosinophils Absolute Basophils VBG pH 6.97 L* VBG pCO2 13.6 L* VBG HCO3 3.1 L VBG Base Excess -26.8 Sodium 120.4 L* Potassium 6.1 H* Chloride 82 L Carbon Dioxide < 5 L* Anion Gap Not Reportable BUN 66 H Creatinine 2.07 H Est GFR ( Amer) 44 L Est GFR (Non-Af Amer) 37 L Glucose 1328 H* Serum Osmolality Lactic Acid Calcium 8.8 Total Bilirubin AST ALT Alkaline Phosphatase Total Protein Albumin Lipase 190.5 Stool Occult Blood 05/03/18 05/03/18 05/03/18 08:57 10:49 11:53 WBC RBC Hgb Hct MCV MCH MCHC RDW Plt Count Seg Neutrophils % Lymphocytes % Monocytes % Eosinophils % Basophils % Absolute Neutrophils Absolute Lymphocytes Absolute Monocytes Absolute Eosinophils Absolute Basophils VBG pH VBG pCO2 VBG HCO3 VBG Base Excess Sodium 123.1 L Potassium 5.2 H Chloride 86 L Carbon Dioxide < 5 L* Anion Gap Not Reportable BUN 67 H Creatinine 1.97 H Est GFR ( Amer) 47 L Est GFR (Non-Af Amer) 39 L Glucose 1227 H* Serum Osmolality 365 H Lactic Acid Calcium 8.5 Total Bilirubin AST ALT Alkaline Phosphatase Total Protein Albumin Lipase Stool Occult Blood POSITIVE Impressions: Chest X-Ray 05/03/18 09:59 IMPRESSION: Focal airspace disease in the right upper lobe consistent with pneumonia. This is new from prior study. KUB X-Ray 05/03/18 10:00 IMPRESSION: NO RADIOGRAPHIC EVIDENCE FOR ACUTE ABDOMINAL DISEASE. Assessment and Plan - Diagnosis (1) DKA (diabetic ketoacidoses) Is this a current diagnosis for this admission?: Yes Plan: In the ER, he was found to be in severe DKA. He has received 3L of fluid bolus, was started on insulin and bicarbonate drip. Administer 6 u of IV insulin push. Increae drip rate to 8 u/hr. NS at 150 cc/hr. Repeat BMP q4. Accuchecks qhourly. (2) Gastrointestinal bleed Is this a current diagnosis for this admission?: Yes (3) Hyperkalemia Is this a current diagnosis for this admission?: Yes Plan: Likely related to his DKA and acute renal failure. Continue to monitor Potassium with BMP. (4) Acute kidney injury Is this a current diagnosis for this admission?: Yes Plan: Pre renal. Continue IV fluids. - Time Time Spent with patient: 35 or more minutes
[2018-05-04] MEDS ORDERED: DEXTROSE 50%-WATER 25 GM/50 ML DISP.SYRIN IV ONE (09:00)
[2018-05-04] MEDS: POTASSIUM CHLORIDE 10 MEQ CAPSULE.ER PO SCH ×2 (12:04→21:05)
[2018-05-04] MEDS: PANTOPRAZOLE SODIUM 40 MG VIAL IV SCH ×2 (12:04→21:08)
[2018-05-04 15:41] LABS: HEMATOCRIT 23.4 % (37.9-51.0); HEMOGLOBIN 8.2 g/dL (13.5-17.0); MEAN CORPUSCULAR HEMOGLOBIN 27.7 pg (27.0-33.4); MEAN CORPUSCULAR HGB CONC 34.9 g/dL (32.0-36.0); MEAN CORPUSCULAR VOLUME 79 fl (80-97); PLATELET COUNT 476 10^3/uL (150-450); RED BLOOD COUNT 2.94 10^6/uL (4.35-5.55); RED CELL DISTRIBUTION WIDTH 17.1 % (11.5-14.0); WHITE BLOOD COUNT 9.3 10^3/uL (4.0-10.5)
[2018-05-04 15:46] LABS: ANION GAP 6 (5-19); BLOOD UREA NITROGEN 33 mg/dL (7-20); CALCIUM 8.3 mg/dL (8.4-10.2); CARBON DIOXIDE 28 mmol/L (22-30); CHLORIDE 105 mmol/L (98-107); GLUCOSE 314 mg/dL (75-110); POTASSIUM 3.7 mmol/L (3.6-5.0); SODIUM 139.4 mmol/L (137-145)
--- NOTE | 2018-05-04 16:42 | PDOC PROGRESS REPORT ---
Subjective Progress Note for:: 05/04/18 Subjective:: CHESTER MCKEON is a 38 year old male with a PMH of uncontrolled IDDM, multiple prior DKAs, poor compliance, alcohol abuse, tobacco dependence and polysubstance abuse who presented with nausea, vomiting and abdominal pain for the past 2 days. He was recently discharged a week ago for DKA and was discharged on Lantus. He was admitted for severe DKA. He also reported episodes of hematemesis and melena at home. No acute event overnight. His anion gap has closed. On D5 0.45 NS and insulin drip. Possible EGD today. No recurrence of hematemesis or melena so far since admission. He says he still feels weak but this has improved a little today. Reason For Visit: POSSIBLE GI BLEED Physical Exam Vital Signs: Temp Pulse Resp BP Pulse Ox 98.8 F 91 13 125/89 H 100 05/04/18 16:00 05/04/18 16:00 05/04/18 16:00 05/04/18 16:00 05/04/18 16:00 Intake & Output 05/03/18 05/04/18 05/05/18 06:59 06:59 06:59 Intake Total 6968 379 Output Total 6280 1400 Balance 688 -1021 Weight 140 lb 143 lb 1.28 oz General appearance: PRESENT: no acute distress, well-developed, well-nourished Head exam: PRESENT: atraumatic, normocephalic Eye exam: PRESENT: conjunctiva pink, EOMI, PERRLA. ABSENT: scleral icterus Ear exam: PRESENT: normal external ear exam Mouth exam: PRESENT: moist, tongue midline Neck exam: ABSENT: carotid bruit, JVD, lymphadenopathy, thyromegaly Respiratory exam: PRESENT: clear to auscultation alfonso. ABSENT: rales, rhonchi, wheezes Cardiovascular exam: PRESENT: RRR. ABSENT: diastolic murmur, rubs, systolic murmur Pulses: PRESENT: normal dorsalis pedis pul GI/Abdominal exam: PRESENT: normal bowel sounds, soft. ABSENT: distended, guarding, mass, organolmegaly, rebound, tenderness Rectal exam: PRESENT: deferred Neurological exam: PRESENT: alert, awake, oriented to person, oriented to place, oriented to time, oriented to situation, CN II-XII grossly intact. ABSENT: motor sensory deficit Results Laboratory Results: 05/04/18 15:13 05/04/18 15:13 05/03/18 05/03/18 05/03/18 17:50 17:50 19:44 WBC 14.3 H RBC 3.03 L Hgb 8.1 L Hct 25.0 L MCV 83 D MCH 26.6 L MCHC 32.3 RDW 17.3 H Plt Count 540 H Seg Neutrophils % Not Reportable Lymphocytes % Not Reportable Monocytes % Not Reportable Eosinophils % Not Reportable Basophils % Not Reportable Absolute Neutrophils Not Reportable Absolute Lymphocytes Not Reportable Absolute Monocytes Not Reportable Absolute Eosinophils Not Reportable Absolute Basophils Not Reportable Sodium Cancelled 132.6 L Potassium Cancelled 3.6 Chloride Cancelled 95 L Carbon Dioxide Cancelled 22 D Anion Gap Cancelled 16 BUN Cancelled 61 H Creatinine Cancelled 1.40 H Est GFR ( Amer) Cancelled > 60 Est GFR (Non-Af Amer) Cancelled 57 L Glucose Cancelled 661 H* Calcium Cancelled 8.6 Total Bilirubin AST ALT Alkaline Phosphatase Total Protein Albumin 05/03/18 05/03/18 05/04/18 23:10 23:10 03:54 WBC 10.1 9.9 RBC 3.16 L 3.19 L Hgb 8.5 L 8.6 L Hct 24.9 L 25.1 L MCV 79 L D 79 L MCH 26.9 L 26.9 L MCHC 34.0 34.2 RDW 17.2 H 17.5 H Plt Count 493 H 449 Seg Neutrophils % Not Reportable Lymphocytes % Not Reportable Monocytes % Not Reportable Eosinophils % Not Reportable Basophils % Not Reportable Absolute Neutrophils Not Reportable Absolute Lymphocytes Not Reportable Absolute Monocytes Not Reportable Absolute Eosinophils Not Reportable Absolute Basophils Not Reportable Sodium 135.0 L Potassium 3.4 L Chloride 98 Carbon Dioxide 30 Anion Gap 7 BUN 55 H Creatinine 1.14 Est GFR ( Amer) > 60 Est GFR (Non-Af Amer) > 60 Glucose 523 H* Calcium 8.2 L Total Bilirubin AST ALT Alkaline Phosphatase Total Protein Albumin 05/04/18 05/04/18 05/04/18 03:54 15:13 15:13 WBC 9.3 RBC 2.94 L Hgb 8.2 L Hct 23.4 L MCV 79 L MCH 27.7 MCHC 34.9 RDW 17.1 H Plt Count 476 H Seg Neutrophils % Lymphocytes % Monocytes % Eosinophils % Basophils % Absolute Neutrophils Absolute Lymphocytes Absolute Monocytes Absolute Eosinophils Absolute Basophils Sodium 139.8 139.4 Potassium 3.6 3.7 Chloride 103 105 Carbon Dioxide 32 H 28 Anion Gap 5 6 BUN 47 H 33 H Creatinine 1.12 0.82 Est GFR ( Amer) > 60 > 60 Est GFR (Non-Af Amer) > 60 > 60 Glucose 207 H 314 H Calcium 8.3 L 8.3 L Total Bilirubin 0.2 AST 15 L ALT 55 Alkaline Phosphatase 173 H Total Protein 6.1 L Albumin 2.8 L Impressions: Abdomen/Pelvis CT 05/03/18 00:00 IMPRESSION: Query enteritis of distal small bowel loops. Chest X-Ray 05/03/18 09:59 IMPRESSION: Focal airspace disease in the right upper lobe consistent with pneumonia. This is new from prior study. KUB X-Ray 05/03/18 10:00 IMPRESSION: NO RADIOGRAPHIC EVIDENCE FOR ACUTE ABDOMINAL DISEASE. Assessment and Plan - Diagnosis (1) DKA (diabetic ketoacidoses) Is this a current diagnosis for this admission?: Yes Plan: Resolved. Currently NPO for anticipated EGD. Will transition to long acting insulin once resumed on diet. (2) Gastrointestinal bleed Is this a current diagnosis for this admission?: Yes Plan: Possible EGD today by surgery. (3) Hyperkalemia Is this a current diagnosis for this admission?: Yes Plan: Likely related to his DKA and acute renal failure. Continue to monitor Potassium with BMP. Resolved. (4) Acute kidney injury Is this a current diagnosis for this admission?: Yes Plan: Pre renal. Continue IV fluids. Resolved. (5) Hyponatremia Is this a current diagnosis for this admission?: Yes Plan: Resolved. (6) Acute on chronic anemia Is this a current diagnosis for this admission?: Yes Plan: Possible GI bleed. Hemoglobin has been stable so far. He has not required transfusion. - Time Time Spent with patient: 25-34 minutes
[2018-05-04] MEDS: LEVOFLOXACIN 750 MG/D5W RTU 750 MG/150 ML RTUPB IV SCH (17:09)
--- NOTE | 2018-05-04 19:18 | PDOC PROGRESS REPORT ---
Subjective Progress Note for:: 05/04/18 Subjective:: This is a 38-year-old male with DKA and a history of hematemesis. This morning the patient reports continued abdominal pain. His pain is generalized, but is improving. He denies chest pain, shortness of breath, fevers, chills, nausea, vomiting, dizziness, orthostasis, blurry vision. Reason For Visit: POSSIBLE GI BLEED Physical Exam Vital Signs: Temp Pulse Resp BP Pulse Ox 99.0 F 90 12 126/70 H 100 05/04/18 18:00 05/04/18 18:00 05/04/18 18:00 05/04/18 18:00 05/04/18 18:00 Intake & Output 05/03/18 05/04/18 05/05/18 06:59 06:59 06:59 Intake Total 6968 391 Output Total 6280 1600 Balance 688 -1209 Weight 63.503 kg 64.9 kg General appearance: PRESENT: no acute distress, cooperative Head exam: PRESENT: atraumatic, normocephalic Eye exam: PRESENT: EOMI, PERRLA. ABSENT: scleral icterus Mouth exam: PRESENT: moist, neck supple Neck exam: ABSENT: meningismus, tenderness, thyromegaly, tracheal deviation Respiratory exam: PRESENT: unlabored. ABSENT: chest wall tenderness, tachypnea, wheezes Cardiovascular exam: PRESENT: RRR Pulses: PRESENT: normal radial pulses GI/Abdominal exam: PRESENT: soft, tenderness - Mild. ABSENT: distended, firm, guarding, hernia Rectal exam: PRESENT: deferred Extremities exam: ABSENT: clubbing Musculoskeletal exam: ABSENT: deformity Neurological exam: PRESENT: alert, awake, oriented to person, oriented to place, oriented to time, oriented to situation Psychiatric exam: ABSENT: agitated, anxious, depressed Focused psych exam: ABSENT: delusional Skin exam: ABSENT: erythema, jaundice Results Laboratory Results: 05/04/18 15:13 05/04/18 15:13 05/03/18 05/03/18 05/03/18 17:50 19:44 23:10 WBC RBC Hgb Hct MCV MCH MCHC RDW Plt Count Seg Neutrophils % Lymphocytes % Monocytes % Eosinophils % Basophils % Absolute Neutrophils Absolute Lymphocytes Absolute Monocytes Absolute Eosinophils Absolute Basophils Sodium Cancelled 132.6 L 135.0 L Potassium Cancelled 3.6 3.4 L Chloride Cancelled 95 L 98 Carbon Dioxide Cancelled 22 D 30 Anion Gap Cancelled 16 7 BUN Cancelled 61 H 55 H Creatinine Cancelled 1.40 H 1.14 Est GFR ( Amer) Cancelled > 60 > 60 Est GFR (Non-Af Amer) Cancelled 57 L > 60 Glucose Cancelled 661 H* 523 H* Calcium Cancelled 8.6 8.2 L Total Bilirubin AST ALT Alkaline Phosphatase Total Protein Albumin 05/03/18 05/04/18 05/04/18 23:10 03:54 03:54 WBC 10.1 9.9 RBC 3.16 L 3.19 L Hgb 8.5 L 8.6 L Hct 24.9 L 25.1 L MCV 79 L D 79 L MCH 26.9 L 26.9 L MCHC 34.0 34.2 RDW 17.2 H 17.5 H Plt Count 493 H 449 Seg Neutrophils % Not Reportable Lymphocytes % Not Reportable Monocytes % Not Reportable Eosinophils % Not Reportable Basophils % Not Reportable Absolute Neutrophils Not Reportable Absolute Lymphocytes Not Reportable Absolute Monocytes Not Reportable Absolute Eosinophils Not Reportable Absolute Basophils Not Reportable Sodium 139.8 Potassium 3.6 Chloride 103 Carbon Dioxide 32 H Anion Gap 5 BUN 47 H Creatinine 1.12 Est GFR ( Amer) > 60 Est GFR (Non-Af Amer) > 60 Glucose 207 H Calcium 8.3 L Total Bilirubin 0.2 AST 15 L ALT 55 Alkaline Phosphatase 173 H Total Protein 6.1 L Albumin 2.8 L 05/04/18 05/04/18 15:13 15:13 WBC 9.3 RBC 2.94 L Hgb 8.2 L Hct 23.4 L MCV 79 L MCH 27.7 MCHC 34.9 RDW 17.1 H Plt Count 476 H Seg Neutrophils % Lymphocytes % Monocytes % Eosinophils % Basophils % Absolute Neutrophils Absolute Lymphocytes Absolute Monocytes Absolute Eosinophils Absolute Basophils Sodium 139.4 Potassium 3.7 Chloride 105 Carbon Dioxide 28 Anion Gap 6 BUN 33 H Creatinine 0.82 Est GFR ( Amer) > 60 Est GFR (Non-Af Amer) > 60 Glucose 314 H Calcium 8.3 L Total Bilirubin AST ALT Alkaline Phosphatase Total Protein Albumin Impressions: Abdomen/Pelvis CT 05/03/18 00:00 IMPRESSION: Query enteritis of distal small bowel loops. Chest X-Ray 05/03/18 09:59 IMPRESSION: Focal airspace disease in the right upper lobe consistent with pneumonia. This is new from prior study. KUB X-Ray 05/03/18 10:00 IMPRESSION: NO RADIOGRAPHIC EVIDENCE FOR ACUTE ABDOMINAL DISEASE. Assessment & Plan - Diagnosis (1) Hematemesis Qualifiers: Nausea presence: without nausea Qualified Code(s): K92.0 - Hematemesis Is this a current diagnosis for this admission?: Yes - Plan Summary Plan Summary: Is a 38-year-old male with DKA. He has reported hematemesis, and surgery has been consulted for EGD. The patient was on the schedule for EGD today, however his blood sugars spiked and his insulin drip was resumed. In light of this, anesthesia has canceled the case for today. N.p.o. after midnight. Plan for EGD tomorrow, if medical condition allows.
[2018-05-05] MEDS: MORPHINE SULFATE 10 MG/ML INJ IV PRN ×3 (01:19→10:00)
[2018-05-05] MEDS: PROMETHAZINE HCL INJ 25 MG/1 ML VIAL IV PRN ×5 (01:20→23:02)
[2018-05-05 04:38] LABS: ABSOLUTE BASOPHILS # (AUTO) 0.1 10^3/uL (0.0-0.2); ABSOLUTE EOSINOPHILS # (AUTO) 0.1 10^3/uL (0.0-0.6); ABSOLUTE LYMPHOCYTES (AUTO) 1.4 10^3/uL (0.5-4.7); ABSOLUTE MONOCYTES (AUTO) 0.9 10^3/uL (0.1-1.4); ABSOLUTE NEUT (AUTO) 4.3 10^3/uL (1.7-8.2); BASOPHILS % (AUTO) 1.2 % (0-2); EOSINOPHILS % (AUTO) 1.8 % (0-6); HEMATOCRIT 22.9 % (37.9-51.0); MEAN CORPUSCULAR HEMOGLOBIN 26.8 pg (27.0-33.4); MEAN CORPUSCULAR HGB CONC 33.8 g/dL (32.0-36.0); MEAN CORPUSCULAR VOLUME 79 fl (80-97); PLATELET COUNT 425 10^3/uL (150-450); RED BLOOD COUNT 2.89 10^6/uL (4.35-5.55); RED CELL DISTRIBUTION WIDTH 17.8 % (11.5-14.0); TOTAL CELLS COUNTED % (AUTO) 100 %; WHITE BLOOD COUNT 6.8 10^3/uL (4.0-10.5)
[2018-05-05 04:48] LABS: HEMOGLOBIN 7.8 g/dL (13.5-17.0)
[2018-05-05] MEDS: PANTOPRAZOLE SODIUM 40 MG VIAL IV SCH ×2 (09:14→22:51)
[2018-05-05] MEDS ORDERED: DIPHENHYDRAMINE HCL 50 MG/ML VIAL ONE (10:09)
[2018-05-05] MEDS ORDERED: ONDANSETRON HCL INJ/PF 4 MG/2 ML SDV ONE (10:09)
[2018-05-05] MEDS ORDERED: FENTANYL CITRATE INJ/PF 100 MCG/2 ML AMPUL ONE (10:09)
[2018-05-05] MEDS ORDERED: EPINEPHRINE INJ 1 MG/10 ML DISP.SYRIN ONE (10:10)
[2018-05-05] MEDS ORDERED: FLUMAZENIL INJ 0.5 MG/5 ML VIAL ONE (10:10)
[2018-05-05] MEDS ORDERED: GLUCAGON,HUMAN RECOMB 1 MG INJ ONE (10:10)
[2018-05-05] MEDS ORDERED: NALOXONE HCL INJ/PF 0.4 MG/1 ML SDV ONE (10:10)
--- NOTE | 2018-05-05 10:19 | PDOC PROGRESS REPORT ---
Subjective Progress Note for:: 05/05/18 Subjective:: No emesis and no melena. Decreased abdominal pain. Reason For Visit: POSSIBLE GI BLEED Physical Exam Vital Signs: Temp Pulse Resp BP Pulse Ox 99.7 F 102 H 15 120/56 L 99 05/05/18 07:00 05/05/18 07:00 05/05/18 07:00 05/05/18 07:00 05/05/18 07:00 Intake & Output 05/04/18 05/05/18 05/06/18 06:59 06:59 06:59 Intake Total 6968 407 Output Total 0238 6390 Balance 688 -1913 Weight 64.9 kg 64.6 kg General appearance: PRESENT: no acute distress, cooperative Respiratory exam: PRESENT: clear to auscultation alfonso Cardiovascular exam: PRESENT: RRR GI/Abdominal exam: PRESENT: other - Soft, mild diffuse abdominal tenderness with no peritoneal signs Results Laboratory Results: 05/05/18 04:21 05/04/18 15:13 05/04/18 05/04/18 05/05/18 15:13 15:13 04:21 WBC 9.3 6.8 RBC 2.94 L 2.89 L Hgb 8.2 L 7.8 L Hct 23.4 L 22.9 L MCV 79 L 79 L MCH 27.7 26.8 L MCHC 34.9 33.8 RDW 17.1 H 17.8 H Plt Count 476 H 425 Seg Neutrophils % 63.0 Lymphocytes % 21.0 Monocytes % 13.0 Eosinophils % 1.8 Basophils % 1.2 Absolute Neutrophils 4.3 Absolute Lymphocytes 1.4 Absolute Monocytes 0.9 Absolute Eosinophils 0.1 Absolute Basophils 0.1 Sodium 139.4 Potassium 3.7 Chloride 105 Carbon Dioxide 28 Anion Gap 6 BUN 33 H Creatinine 0.82 Est GFR ( Amer) > 60 Est GFR (Non-Af Amer) > 60 Glucose 314 H Calcium 8.3 L Impressions: Abdomen/Pelvis CT 05/03/18 00:00 IMPRESSION: Query enteritis of distal small bowel loops. Chest X-Ray 05/03/18 09:59 IMPRESSION: Focal airspace disease in the right upper lobe consistent with pneumonia. This is new from prior study. KUB X-Ray 05/03/18 10:00 IMPRESSION: NO RADIOGRAPHIC EVIDENCE FOR ACUTE ABDOMINAL DISEASE. Assessment & Plan - Diagnosis (1) Gastrointestinal bleed Is this a current diagnosis for this admission?: Yes Plan: No evidence of active bleeding at this time. With his history of hematemesis however will proceed with a upper endoscopy. Patient understands risk and benefits including risk of bleeding and intestinal injury.
[2018-05-05] MEDS: MIDAZOLAM 2 MG/2 ML INJ ONE ×2 (11:21→11:25)
--- NOTE | 2018-05-05 11:57 | Operative Report ---
Operative Report DATE OF SURGERY: 05/05/18 PREOPERATIVE DIAGNOSIS: Hematemesis. POSTOPERATIVE DIAGNOSIS: Esophagitis. Erosive gastritis. Duodenitis. OPERATION: Esophagogastroduodenoscopy with gastric biopsy and esophageal biopsy. SURGEON: IOANA RIVERA ANESTHESIA: Moderate Sedation TISSUE REMOVED OR ALTERED: Gastric biopsy and esophageal biopsy. COMPLICATIONS: None ESTIMATED BLOOD LOSS: Minimal INTRAOPERATIVE FINDINGS: Exudate covering esophagus but no points of active bleeding. Superficial erosions of the gastric fundus without active bleeding. Duodenal friability but no ulcers. PROCEDURE: Informed consent was obtained. Patient's procedure was done at his bedside in the ICU. IV sedation with Versed and fentanyl was administered. Endoscope was passed via the patient's mouth it was fed down to the second portion of the duodenum. The duodenum has some friability but no ulcers. The gastric mucosa had the scattered superficial erosions but no active bleeding. No ulcerations were seen. The esophagus had an inflammatory peel covering most of it with some friable mucosa underneath. But no active bleeding. Esophageal biopsies were taken. Antral biopsies were also taken. Patient tolerated procedure well with no apparent complications. Patient with gastritis and esophagitis would account for blood in his emesis when he has nausea and vomiting related with his diabetic ketoacidosis. Will await the biopsy results. Continue proton pump inhibitor.
[2018-05-05] MEDS: POTASSIUM CHLORIDE 10 MEQ CAPSULE.ER PO SCH ×2 (12:57→22:50)
[2018-05-05] MEDS ORDERED: DEXTROSE 40% GEL 15 GM TUBE PO PRN ×2 (13:12)
[2018-05-05] MEDS ORDERED: DEXTROSE 50%-WATER 25 GM/50 ML DISP.SYRIN IV PRN ×2 (13:12)
[2018-05-05] MEDS ORDERED: GLUCAGON,HUMAN RECOMB 1 MG INJ IM PRN (13:12)
[2018-05-05 13:17] LABS: HEMATOCRIT 25.5 % (37.9-51.0); HEMOGLOBIN 8.5 g/dL (13.5-17.0); MEAN CORPUSCULAR HEMOGLOBIN 27.2 pg (27.0-33.4); MEAN CORPUSCULAR HGB CONC 33.4 g/dL (32.0-36.0); MEAN CORPUSCULAR VOLUME 81 fl (80-97); PLATELET COUNT 442 10^3/uL (150-450); RED BLOOD COUNT 3.13 10^6/uL (4.35-5.55); RED CELL DISTRIBUTION WIDTH 18.3 % (11.5-14.0); WHITE BLOOD COUNT 5.9 10^3/uL (4.0-10.5)
[2018-05-05] MEDS ORDERED: INSULIN LISPRO 100 UNIT/ML 3 ML VIAL SUBCUT ONE ×2 (13:30→17:30)
[2018-05-05] MEDS: HUM INSULIN NPH/REG INSULIN HM 100 UNIT/1 ML 3 ML SUBCUT SCH (15:24)
[2018-05-05] MEDS: INSULIN LISPRO 100 UNIT/ML 3 ML VIAL SUBCUT SCH ×2 (15:25→23:25)
[2018-05-05] MEDS ORDERED: HYDROCODONE/ACETAMINOPHEN 5-325 MG TABLET PO PRN (15:33)
[2018-05-05] MEDS: NORMAL SALINE 1000 ML 1,000 ML IV PRN (16:17)
--- NOTE | 2018-05-05 18:12 | PDOC PROGRESS REPORT ---
Subjective Progress Note for:: 05/05/18 Subjective:: CHESTER MCKEON is a 38 year old male with a PMH of uncontrolled IDDM, multiple prior DKAs, poor compliance, alcohol abuse, tobacco dependence and polysubstance abuse who presented with nausea, vomiting and abdominal pain for the past 2 days. He was recently discharged a week ago for DKA and was discharged on Lantus. He was admitted for severe DKA. He also reported episodes of hematemesis and melena at home. 05/04: His anion gap has closed. On D5 0.45 NS and insulin drip. Possible EGD today. No recurrence of hematemesis or melena so far since admission. He says he still feels weak but this has improved a little today. 05/05: No acute event overnight. He is off insulin drip. He just got back from EGD which revealed erosive gastritis, esophagitis and duodenitis. Reason For Visit: POSSIBLE GI BLEED Physical Exam Vital Signs: Temp Pulse Resp BP Pulse Ox 97.3 F 87 14 159/76 H 100 05/05/18 16:00 05/05/18 16:00 05/05/18 16:00 05/05/18 16:00 05/05/18 16:00 Intake & Output 05/04/18 05/05/18 05/06/18 06:59 06:59 06:59 Intake Total 6968 1407 100 Output Total 6280 2320 1000 Balance 688 913 -900 Weight 143 lb 1.28 oz 142 lb 6.698 oz General appearance: PRESENT: no acute distress, well-developed, well-nourished Head exam: PRESENT: atraumatic, normocephalic Eye exam: PRESENT: conjunctiva pink, EOMI, PERRLA. ABSENT: scleral icterus Ear exam: PRESENT: normal external ear exam Mouth exam: PRESENT: moist, tongue midline Neck exam: ABSENT: carotid bruit, JVD, lymphadenopathy, thyromegaly Respiratory exam: PRESENT: clear to auscultation alfonso. ABSENT: rales, rhonchi, wheezes Cardiovascular exam: PRESENT: RRR. ABSENT: diastolic murmur, rubs, systolic murmur Pulses: PRESENT: normal dorsalis pedis pul GI/Abdominal exam: PRESENT: normal bowel sounds, soft. ABSENT: distended, guarding, mass, organolmegaly, rebound, tenderness Rectal exam: PRESENT: deferred Neurological exam: PRESENT: alert, awake, oriented to person, oriented to place, oriented to time, oriented to situation, CN II-XII grossly intact. ABSENT: motor sensory deficit Results Laboratory Results: 05/05/18 13:08 05/04/18 15:13 05/05/18 05/05/18 04:21 13:08 WBC 6.8 5.9 RBC 2.89 L 3.13 L Hgb 7.8 L 8.5 L Hct 22.9 L 25.5 L MCV 79 L 81 MCH 26.8 L 27.2 MCHC 33.8 33.4 RDW 17.8 H 18.3 H Plt Count 425 442 Seg Neutrophils % 63.0 Lymphocytes % 21.0 Monocytes % 13.0 Eosinophils % 1.8 Basophils % 1.2 Absolute Neutrophils 4.3 Absolute Lymphocytes 1.4 Absolute Monocytes 0.9 Absolute Eosinophils 0.1 Absolute Basophils 0.1 Impressions: Abdomen/Pelvis CT 05/03/18 00:00 IMPRESSION: Query enteritis of distal small bowel loops. Chest X-Ray 05/03/18 09:59 IMPRESSION: Focal airspace disease in the right upper lobe consistent with pneumonia. This is new from prior study. KUB X-Ray 05/03/18 10:00 IMPRESSION: NO RADIOGRAPHIC EVIDENCE FOR ACUTE ABDOMINAL DISEASE. Assessment and Plan - Diagnosis (1) DKA (diabetic ketoacidoses) Is this a current diagnosis for this admission?: Yes Plan: Resolved. On clear liquid diet after EGD. He was previously discharged on Lantus 40 u bid. Will switch to 70/30 and will start at 30 u bid for now as he is still on clears after EGD. (2) Gastrointestinal bleed Is this a current diagnosis for this admission?: Yes Plan: S/P EGD which showed erosive gastritis, esophagitis and duodenitis. Hemoglobin has been stable. He did not require any blood transfusion. Continue PPI. (3) Hyperkalemia Is this a current diagnosis for this admission?: Yes Plan: Likely related to his DKA and acute renal failure. Continue to monitor Potassium with BMP. Resolved. (4) Acute kidney injury Is this a current diagnosis for this admission?: Yes Plan: Pre renal. Continue IV fluids. Resolved. (5) Hyponatremia Is this a current diagnosis for this admission?: Yes Plan: Resolved. (6) Acute on chronic anemia Is this a current diagnosis for this admission?: Yes Plan: Possible GI bleed. Hemoglobin has been stable so far. He has not required transfusion. - Time Time Spent with patient: 25-34 minutes
[2018-05-05] MEDS: LEVOFLOXACIN 750 MG/D5W RTU 750 MG/150 ML RTUPB IV SCH (18:28)
[2018-05-05] MEDS: FLUTICASONE NASAL SPRAY 50 MCG/SPRY 120 SPRAY/16 GM NASL SCH (18:28)
[2018-05-05] MEDS: OXYCODONE-ACETAMINOPHEN 5-325 MG TABLET PO PRN (18:34)
[2018-05-05 19:08] LABS: ANION GAP 8 (5-19); BLOOD UREA NITROGEN 17 mg/dL (7-20); CALCIUM 8.5 mg/dL (8.4-10.2); CARBON DIOXIDE 25 mmol/L (22-30); CHLORIDE 101 mmol/L (98-107); GLUCOSE 240 mg/dL (75-110); POTASSIUM 3.9 mmol/L (3.6-5.0); SODIUM 133.7 mmol/L (137-145)
[2018-05-06] MEDS: OXYCODONE-ACETAMINOPHEN 5-325 MG TABLET PO PRN ×4 (00:34→19:56)
[2018-05-06] MEDS: NORMAL SALINE 1000 ML 1,000 ML IV PRN (06:47)
[2018-05-06] MEDS: HUM INSULIN NPH/REG INSULIN HM 100 UNIT/1 ML 3 ML SUBCUT SCH ×2 (08:43→17:52)
[2018-05-06] MEDS: INSULIN LISPRO 100 UNIT/ML 3 ML VIAL SUBCUT SCH ×4 (08:44→22:59)
[2018-05-06] MEDS: POTASSIUM CHLORIDE 10 MEQ CAPSULE.ER PO SCH ×2 (10:17→22:59)
[2018-05-06] MEDS: FLUTICASONE NASAL SPRAY 50 MCG/SPRY 120 SPRAY/16 GM NASL SCH ×2 (10:17→17:59)
[2018-05-06] MEDS: PROMETHAZINE HCL INJ 25 MG/1 ML VIAL IV PRN ×2 (12:54→17:51)
[2018-05-06] MEDS: LEVOFLOXACIN 750 MG/D5W RTU 750 MG/150 ML RTUPB IV SCH (17:51)
--- NOTE | 2018-05-06 18:13 | PDOC PROGRESS REPORT ---
Subjective Progress Note for:: 05/06/18 Subjective:: I seen patient resting in bed. He complains of abdominal pain and asking if I can increase the frequency of his pain medication. He presented with chief complaint of nausea vomiting and abdominal pain. Patient admitted in DKA. He had endoscopy and the finding is erosive gastritis and duodenitis. Reportedly the gastric mucosa has scattered superficial erosive lesions but no active bleeding. Reason For Visit: POSSIBLE GI BLEED Physical Exam Vital Signs: Temp Pulse Resp BP Pulse Ox 98.0 F 92 16 122/68 99 05/06/18 15:48 05/06/18 15:48 05/06/18 15:48 05/06/18 15:48 05/06/18 15:48 Intake & Output 05/05/18 05/06/18 05/07/18 06:59 06:59 06:59 Intake Total 1557 2508 Output Total 2320 1800 Balance -763 708 Weight 64.6 kg 65.3 kg General appearance: PRESENT: no acute distress Eye exam: PRESENT: conjunctiva pink Mouth exam: PRESENT: moist Neck exam: ABSENT: carotid bruit, JVD, lymphadenopathy, thyromegaly Respiratory exam: PRESENT: clear to auscultation alfonso. ABSENT: rales, rhonchi, wheezes Cardiovascular exam: PRESENT: RRR. ABSENT: diastolic murmur, rubs, systolic m urmur GI/Abdominal exam: PRESENT: tenderness - Epigastric Neurological exam: PRESENT: alert, awake, oriented to time, oriented to situation Results Laboratory Results: 05/05/18 13:08 05/05/18 17:58 05/05/18 17:58 Sodium 133.7 L Potassium 3.9 Chloride 101 Carbon Dioxide 25 Anion Gap 8 BUN 17 Creatinine 0.83 Est GFR ( Amer) > 60 Est GFR (Non-Af Amer) > 60 Glucose 240 H Calcium 8.5 Impressions: Abdomen/Pelvis CT 05/03/18 00:00 IMPRESSION: Query enteritis of distal small bowel loops. Chest X-Ray 05/03/18 09:59 IMPRESSION: Focal airspace disease in the right upper lobe consistent with pneumonia. This is new from prior study. KUB X-Ray 05/03/18 10:00 IMPRESSION: NO RADIOGRAPHIC EVIDENCE FOR ACUTE ABDOMINAL DISEASE. Assessment and Plan - Diagnosis (1) DKA, type 1 Qualifiers: Diabetes mellitus complication detail: without coma Qualified Code(s): E10.10 - Type 1 diabetes mellitus with ketoacidosis without coma Is this a current diagnosis for this admission?: Yes Plan: Patient downgraded from ICU. Last night he had an episode of hypoglycemia for which she was given juice. And this morning he has hyperglycemia with blood sugar of 475 for which she was given 12 units of Humalog. His latest blood sugar is 274. (2) Acute on chronic blood loss anemia Is this a current diagnosis for this admission?: Yes Plan: Due to GI bleeding. His latest EGD revealed erosive gastritis and duodenitis. Patient has been on PPI (3) Hyperkalemia Is this a current diagnosis for this admission?: Yes Plan: Has resolved (4) Hyponatremia Is this a current diagnosis for this admission?: Yes Plan: Improving (5) Polysubstance abuse Is this a current diagnosis for this admission?: Yes Plan: I reinforced with my counseling gained encouragement to remain clean.
[2018-05-07] MEDS: OXYCODONE-ACETAMINOPHEN 5-325 MG TABLET PO PRN ×3 (02:13→18:27)
[2018-05-07] MEDS: INSULIN GLARGINE,HUM.REC.ANLOG 1,000 UNIT/10 ML VIAL SUBCUT SCH ×3 (05:17→23:43)
[2018-05-07] MEDS: NORMAL SALINE 1000 ML 1,000 ML IV PRN ×2 (05:39→18:21)
[2018-05-07] MEDS: FLUTICASONE NASAL SPRAY 50 MCG/SPRY 120 SPRAY/16 GM NASL SCH ×2 (09:40→22:07)
[2018-05-07] MEDS: INSULIN LISPRO 100 UNIT/ML 3 ML VIAL SUBCUT SCH ×4 (09:42→22:07)
[2018-05-07] MEDS: POTASSIUM CHLORIDE 10 MEQ CAPSULE.ER PO SCH ×2 (09:43→22:06)
[2018-05-07] MEDS ORDERED: SODIUM CHLORIDE NASAL SPRAY 44 ML NASL ONE (11:00)
--- NOTE | 2018-05-07 11:08 | PDOC PROGRESS REPORT ---
Subjective Progress Note for:: 05/07/18 Subjective:: I seen patient sitting by the bedside. He is awake alert and oriented. He keep on asking to increase either the frequency or the dose is Percocet. I told him Percocet 5 mg p.o. every 6 hours is enough. Reason For Visit: POSSIBLE GI BLEED Physical Exam Vital Signs: Temp Pulse Resp BP Pulse Ox 97.9 F 96 16 118/74 99 05/07/18 08:05 05/07/18 08:05 05/07/18 08:05 05/07/18 08:05 05/07/18 08:05 Intake & Output 05/06/18 05/07/18 05/08/18 06:59 06:59 06:59 Intake Total 2508 2482 Output Total 1800 3200 Balance 708 -718 Weight 65.3 kg 64.9 kg General appearance: PRESENT: no acute distress Head exam: PRESENT: atraumatic Eye exam: PRESENT: conjunctiva pink Mouth exam: PRESENT: moist Neck exam: ABSENT: carotid bruit, JVD, lymphadenopathy, thyromegaly Respiratory exam: PRESENT: clear to auscultation alfonso. ABSENT: rales, rhonchi, wheezes Cardiovascular exam: PRESENT: RRR. ABSENT: diastolic murmur, rubs, systolic murmur Neurological exam: PRESENT: alert, awake, oriented to time, oriented to situation Results Laboratory Results: 05/05/18 13:08 05/05/18 17:58 Impressions: Abdomen/Pelvis CT 05/03/18 00:00 IMPRESSION: Query enteritis of distal small bowel loops. Chest X-Ray 05/03/18 09:59 IMPRESSION: Focal airspace disease in the right upper lobe consistent with pneumonia. This is new from prior study. KUB X-Ray 05/03/18 10:00 IMPRESSION: NO RADIOGRAPHIC EVIDENCE FOR ACUTE ABDOMINAL DISEASE. Assessment and Plan - Diagnosis (1) DKA, type 1 Qualifiers: Diabetes mellitus complication detail: without coma Qualified Code(s): E10.10 - Type 1 diabetes mellitus with ketoacidosis without coma Is this a current diagnosis for this admission?: Yes Plan: Patient downgraded from ICU. Last night he had an episode of hypoglycemia for which she was given juice. And this morning he has hyperglycemia with blood sugar of 475 for which she was given 12 units of Humalog. His latest blood sugar is 274. (2) Acute on chronic blood loss anemia Is this a current diagnosis for this admission?: Yes Plan: Due to GI bleeding. His latest EGD revealed erosive gastritis and duodenitis. Patient has been on PPI (3) Hyperkalemia Is this a current diagnosis for this admission?: Yes Plan: Has resolved (4) Hyponatremia Is this a current diagnosis for this admission?: Yes Plan: Improving (5) Polysubstance abuse Is this a current diagnosis for this admission?: Yes Plan: I reinforced with my counseling gained encouragement to remain clean.
[2018-05-07] MEDS: PROMETHAZINE HCL INJ 25 MG/1 ML VIAL IV PRN ×2 (12:05→18:28)
[2018-05-07] MEDS: SODIUM CHLORIDE NASAL SPRAY 44 ML NASL SCH ×2 (16:15→22:09)
[2018-05-07] MEDS: LEVOFLOXACIN 750 MG/D5W RTU 750 MG/150 ML RTUPB IV SCH (18:21)
[2018-05-07] MEDS ORDERED: INSULIN GLARGINE,HUM.REC.ANLOG 1,000 UNIT/10 ML VIAL (PYX) SUBCUT ONE (22:24)
[2018-05-08] MEDS: PROMETHAZINE HCL INJ 25 MG/1 ML VIAL IV PRN ×4 (01:05→23:55)
[2018-05-08] MEDS: OXYCODONE-ACETAMINOPHEN 5-325 MG TABLET PO PRN ×4 (01:06→23:56)
[2018-05-08] MEDS: SODIUM CHLORIDE NASAL SPRAY 44 ML NASL SCH ×4 (08:34→21:43)
[2018-05-08] MEDS: INSULIN LISPRO 100 UNIT/ML 3 ML VIAL SUBCUT SCH ×4 (08:34→21:38)
[2018-05-08] MEDS: NORMAL SALINE 1000 ML 1,000 ML IV PRN (08:36)
[2018-05-08] MEDS: FLUTICASONE NASAL SPRAY 50 MCG/SPRY 120 SPRAY/16 GM NASL SCH ×2 (11:22→17:02)
[2018-05-08] MEDS: INSULIN GLARGINE,HUM.REC.ANLOG 1,000 UNIT/10 ML VIAL SUBCUT SCH ×2 (11:23→21:39)
[2018-05-08] MEDS: POTASSIUM CHLORIDE 10 MEQ CAPSULE.ER PO SCH ×2 (11:23→21:39)
--- NOTE | 2018-05-08 12:58 | PDOC PROGRESS REPORT ---
Subjective Progress Note for:: 05/08/18 Subjective:: Patient resting in bed comfortably. His blood sugar is well controlled with Lantus 40 units subcu every 12 hours. His potential discharge for tomorrow. I discussed the case with social work instructor in order for the patient to get his insulin supplement from [facility]. Reason For Visit: POSSIBLE GI BLEED Physical Exam Vital Signs: Temp Pulse Resp BP Pulse Ox 98.0 F 101 H 15 116/73 99 05/08/18 11:04 05/08/18 11:04 05/08/18 11:04 05/08/18 11:04 05/08/18 11:04 Intake & Output 05/07/18 05/08/18 05/09/18 06:59 06:59 06:59 Intake Total 2482 4117 Output Total 3200 1600 Balance -718 2517 Weight 64.9 kg 65.3 kg General appearance: PRESENT: no acute distress Respiratory exam: PRESENT: clear to auscultation alfonso. ABSENT: rales, rhonchi, wheezes Cardiovascular exam: PRESENT: RRR. ABSENT: diastolic murmur, rubs, systolic murmur GI/Abdominal exam: PRESENT: normal bowel sounds, soft. ABSENT: distended, guarding, mass, organolmegaly, rebound, tenderness Neurological exam: PRESENT: alert, awake, oriented to time, oriented to situation Results Laboratory Results: 05/05/18 13:08 05/05/18 17:58 05/03/18 08:57 Blood Blood Culture - Final NO GROWTH IN 5 DAYS 05/03/18 07:18 Blood Blood Culture - Final NO GROWTH IN 5 DAYS Impressions: Abdomen/Pelvis CT 05/03/18 00:00 IMPRESSION: Query enteritis of distal small bowel loops. Chest X-Ray 05/03/18 09:59 IMPRESSION: Focal airspace disease in the right upper lobe consistent with pneumonia. This is new from prior study. KUB X-Ray 05/03/18 10:00 IMPRESSION: NO RADIOGRAPHIC EVIDENCE FOR ACUTE ABDOMINAL DISEASE. Assessment and Plan - Diagnosis (1) DKA, type 1 Qualifiers: Diabetes mellitus complication detail: without coma Qualified Code(s): E10.10 - Type 1 diabetes mellitus with ketoacidosis without coma Is this a current diagnosis for this admission?: Yes Plan: Patient downgraded from ICU. Last night he had an episode of hypoglycemia for which she was given juice. And this morning he has hyperglycemia with blood sugar of 475 for which she was given 12 units of Humalog. His latest blood sugar is 274. (2) Acute on chronic blood loss anemia Is this a current diagnosis for this admission?: Yes Plan: Due to GI bleeding. His latest EGD revealed erosive gastritis and duodenitis. Patient has been on PPI (3) Hyperkalemia Is this a current diagnosis for this admission?: Yes Plan: Has resolved (4) Hyponatremia Is this a current diagnosis for this admission?: Yes Plan: Improving (5) Polysubstance abuse Is this a current diagnosis for this admission?: Yes Plan: I reinforced with my counseling gained encouragement to remain clean.
[2018-05-08] MEDS: LEVOFLOXACIN 750 MG/D5W RTU 750 MG/150 ML RTUPB IV SCH (17:03)
[2018-05-09] MEDS: OXYCODONE-ACETAMINOPHEN 5-325 MG TABLET PO PRN ×3 (06:19→18:57)
[2018-05-09] MEDS: PROMETHAZINE HCL INJ 25 MG/1 ML VIAL IV PRN ×3 (06:19→18:57)
[2018-05-09 06:55] LABS: HEMATOCRIT 24.5 % (37.9-51.0); MEAN CORPUSCULAR HEMOGLOBIN 27.1 pg (27.0-33.4); MEAN CORPUSCULAR HGB CONC 32.8 g/dL (32.0-36.0); MEAN CORPUSCULAR VOLUME 83 fl (80-97); PLATELET COUNT 579 10^3/uL (150-450); RED BLOOD COUNT 2.96 10^6/uL (4.35-5.55); RED CELL DISTRIBUTION WIDTH 18.9 % (11.5-14.0); WHITE BLOOD COUNT 6.3 10^3/uL (4.0-10.5)
[2018-05-09] MEDS: INSULIN LISPRO 100 UNIT/ML 3 ML VIAL SUBCUT SCH ×4 (08:25→22:03)
[2018-05-09] MEDS: SODIUM CHLORIDE NASAL SPRAY 44 ML NASL SCH ×4 (09:46→22:06)
[2018-05-09] MEDS: FLUTICASONE NASAL SPRAY 50 MCG/SPRY 120 SPRAY/16 GM NASL SCH ×2 (09:47→18:59)
[2018-05-09] MEDS: POTASSIUM CHLORIDE 10 MEQ CAPSULE.ER PO SCH ×2 (09:47→22:05)
[2018-05-09] MEDS: INSULIN GLARGINE,HUM.REC.ANLOG 1,000 UNIT/10 ML VIAL SUBCUT SCH ×2 (09:47→22:05)
--- NOTE | 2018-05-09 13:05 | PDOC PROGRESS REPORT ---
Subjective Progress Note for:: 05/09/18 Subjective:: I seen patient sitting by the bedside. He reports this he eats his breakfast well but later he vomited. He says he still has nausea and abdominal pain. I noticed patient has bilateral +3 pitting edema. We will know this is due to congestive heart failure, nephrotic syndrome or hypoalbuminemia. Echocardiogram is done but the results pending. Reason For Visit: POSSIBLE GI BLEED Physical Exam Vital Signs: Temp Pulse Resp BP Pulse Ox 98.1 F 97 18 134/86 H 99 05/09/18 11:18 05/09/18 11:18 05/09/18 11:18 05/09/18 11:18 05/09/18 11:18 Intake & Output 05/08/18 05/09/18 05/10/18 06:59 06:59 06:59 Intake Total 4117 2422 Output Total 1600 1500 Balance 2517 922 Weight 65.3 kg 65.8 kg General appearance: PRESENT: no acute distress Head exam: PRESENT: atraumatic Eye exam: PRESENT: conjunctiva pink Neck exam: ABSENT: carotid bruit, JVD, lymphadenopathy, thyromegaly Respiratory exam: PRESENT: clear to auscultation alfonso. ABSENT: rales, rhonchi, wheezes Cardiovascular exam: PRESENT: RRR. ABSENT: diastolic murmur, rubs, systolic murmur GI/Abdominal exam: PRESENT: normal bowel sounds, soft. ABSENT: distended, guarding, mass, organolmegaly, rebound, tenderness Extremities exam: PRESENT: other - +3 pitting edema Neurological exam: PRESENT: altered, awake, oriented to time, oriented to situation Results Laboratory Results: 05/09/18 06:15 05/05/18 17:58 05/09/18 06:15 WBC 6.3 RBC 2.96 L Hgb 8.0 L Hct 24.5 L MCV 83 MCH 27.1 MCHC 32.8 RDW 18.9 H Plt Count 579 H 05/03/18 08:57 Blood Blood Culture - Final NO GROWTH IN 5 DAYS Impressions: Abdomen/Pelvis CT 05/03/18 00:00 IMPRESSION: Query enteritis of distal small bowel loops. Chest X-Ray 05/03/18 09:59 IMPRESSION: Focal airspace disease in the right upper lobe consistent with pneumonia. This is new from prior study. KUB X-Ray 05/03/18 10:00 IMPRESSION: NO RADIOGRAPHIC EVIDENCE FOR ACUTE ABDOMINAL DISEASE. Assessment and Plan - Diagnosis (1) DKA, type 1 Qualifiers: Diabetes mellitus complication detail: without coma Qualified Code(s): E10.10 - Type 1 diabetes mellitus with ketoacidosis without coma Is this a current diagnosis for this admission?: Yes Plan: Blood sugars well controlled. (2) Acute on chronic blood loss anemia Is this a current diagnosis for this admission?: Yes Plan: His latest hemoglobin is 8. (3) Hyperkalemia Is this a current diagnosis for this admission?: Yes Plan: Has resolved (4) Hyponatremia Is this a current diagnosis for this admission?: Yes Plan: Improving (5) Polysubstance abuse Is this a current diagnosis for this admission?: Yes Plan: I reinforced with my counseling gained encouragement to remain clean.
[2018-05-09] MEDS: LEVOFLOXACIN 750 MG/D5W RTU 750 MG/150 ML RTUPB IV SCH (18:57)
[2018-05-09] MEDS: NORMAL SALINE 1000 ML 1,000 ML IV PRN (18:58)
[2018-05-10] MEDS: OXYCODONE-ACETAMINOPHEN 5-325 MG TABLET PO PRN ×4 (01:09→20:28)
[2018-05-10] MEDS: INSULIN LISPRO 100 UNIT/ML 3 ML VIAL SUBCUT SCH ×4 (08:35→23:08)
[2018-05-10] MEDS: PROMETHAZINE HCL INJ 25 MG/1 ML VIAL IV PRN (09:42)
[2018-05-10] MEDS: SODIUM CHLORIDE NASAL SPRAY 44 ML NASL SCH ×4 (09:43→23:07)
[2018-05-10] MEDS: FLUTICASONE NASAL SPRAY 50 MCG/SPRY 120 SPRAY/16 GM NASL SCH ×2 (09:44→19:01)
[2018-05-10] MEDS: POTASSIUM CHLORIDE 10 MEQ CAPSULE.ER PO SCH (09:45)
[2018-05-10] MEDS: INSULIN GLARGINE,HUM.REC.ANLOG 1,000 UNIT/10 ML VIAL SUBCUT SCH ×3 (11:18→23:08)
--- NOTE | 2018-05-10 11:32 | PDOC PROGRESS REPORT ---
Subjective Progress Note for:: 05/10/18 Subjective:: 05/11/1997 [id number] male with history of diabetes mellitus uncontrolled because of noncompliance admitted multiple times complaining of a nausea and abdominal pains this morning requesting p.o. Phenergan because IV Phenergan is burning his skin. He is also requesting increasing pain medications presently is on Percocet 5 325 mg every 6 as needed I increased it to 2 tablets every 6 as needed. Blood sugar dropped to 30 last night he is on 40 units of Lantus twice a day and it was switched to 20 units twice a day today. IV fluids are discontinued. Reason For Visit: POSSIBLE GI BLEED Physical Exam Vital Signs: Temp Pulse Resp BP Pulse Ox 97.6 F 101 H 14 134/88 H 99 05/10/18 07:59 05/10/18 07:59 05/10/18 07:59 05/10/18 07:59 05/10/18 07:59 Intake & Output 05/09/18 05/10/18 05/11/18 06:59 06:59 06:59 Intake Total 2422 3795 Output Total 1500 3600 Balance 922 195 Weight 65.8 kg 65.8 kg General appearance: PRESENT: no acute distress Head exam: PRESENT: atraumatic Eye exam: PRESENT: PERRLA Neck exam: ABSENT: carotid bruit, JVD, lymphadenopathy, thyromegaly Respiratory exam: PRESENT: clear to auscultation alfonso. ABSENT: rales, rhonchi, wheezes Cardiovascular exam: PRESENT: RRR. ABSENT: diastolic murmur, rubs, systolic murmur GI/Abdominal exam: PRESENT: normal bowel sounds, soft. ABSENT: distended, guarding, mass, organolmegaly, rebound, tenderness Extremities exam: PRESENT: full ROM. ABSENT: calf tenderness, clubbing, pedal edema Neurological exam: PRESENT: alert, awake, oriented to person, oriented to place, oriented to time, oriented to situation, CN II-XII grossly intact. ABSENT: motor sensory deficit Psychiatric exam: PRESENT: appropriate affect, normal mood. ABSENT: homicidal ideation, suicidal ideation Results Laboratory Results: 05/09/18 06:15 05/05/18 17:58 Impressions: Abdomen/Pelvis CT 05/03/18 00:00 IMPRESSION: Query enteritis of distal small bowel loops. Chest X-Ray 05/03/18 09:59 IMPRESSION: Focal airspace disease in the right upper lobe consistent with pneumonia. This is new from prior study. KUB X-Ray 05/03/18 10:00 IMPRESSION: NO RADIOGRAPHIC EVIDENCE FOR ACUTE ABDOMINAL DISEASE. Assessment and Plan - Diagnosis (1) DKA, type 1 Qualifiers: Is this a current diagnosis for this admission?: Yes Plan: 05/10/2018-patient has history of type 1 diabetes mellitus. Presently on Lantus 40 units twice a day and blood sugar dropped to 30 last night. Latest blood sugar in the 190s. Lantus was dose was decreased to 20 units twice a day and plan to continue insulin sliding scale. Dietary consult was requested. Diet complex medications discussed with the patient. (2) Acute on chronic blood loss anemia Is this a current diagnosis for this admission?: Yes Plan: His latest hemoglobin is 8. 05/10/2018-patient's latest hemoglobin is 8.0 plan to recheck CBC today. He has chronic blood loss anemia most likely secondary to severe gastritis. (3) Hyperkalemia Is this a current diagnosis for this admission?: Yes Plan: Likely related to his DKA and acute renal failure. Continue to monitor Potassium with BMP. Resolved. 05/10/2018-patient was admitted with high potassium levels today's labs are pending p.o. potassium supplementation is discontinued today. (4) Hyponatremia Is this a current diagnosis for this admission?: Yes Plan: Improving 05/10/2018-hyponatremia most likely secondary to prerenal causes nausea and vomiting. Today's labs are pending. (5) Polysubstance abuse Is this a current diagnosis for this admission?: Yes Plan: I reinforced with my counseling gained encouragement to remain clean. 05/10/2018-patient has history of polysubstance abuse serum toxicology at the time of admission is shows alcohol level of less than 10. Counseling was provided.
[2018-05-10] MEDS: PROMETHAZINE HCL 25 MG TABLET PO PRN ×2 (13:23→20:28)
[2018-05-10 14:55] LABS: HEMATOCRIT 26.7 % (37.9-51.0); HEMOGLOBIN 8.5 g/dL (13.5-17.0); MEAN CORPUSCULAR HEMOGLOBIN 26.5 pg (27.0-33.4); MEAN CORPUSCULAR VOLUME 83 fl (80-97); PLATELET COUNT 637 10^3/uL (150-450); RED BLOOD COUNT 3.23 10^6/uL (4.35-5.55); RED CELL DISTRIBUTION WIDTH 19.3 % (11.5-14.0); WHITE BLOOD COUNT 9.6 10^3/uL (4.0-10.5)
[2018-05-10 15:17] LABS: ABSOLUTE LYMPHOCYTES# (MANUAL) 1.9 10^3/uL (0.5-4.7); ABSOLUTE MONOCYTES # (MANUAL) 1.1 10^3/uL (0.1-1.4); ABSOLUTE NEUTROPHILS# (MANUAL) 6.4 10^3/uL (1.7-8.2); BASOPHILS % (MANUAL) 0 % (0-2); EOSINOPHILS % (MANUAL) 2 % (0-6); LYMPHOCYTES % (MANUAL) 20 % (13-45); MONOCYTES % (MANUAL) 11 % (3-13); SEGMENTED NEUTROPHILS % (MAN) 67 % (42-78); TOTAL CELLS COUNTED 100
[2018-05-10 15:20] LABS: ANISOCYTOSIS 2+; HYPOCHROMASIA SLIGHT; PLATELET COMMENT INCREASED; POIKILOCYTOSIS SLIGHT; TOXIC GRANULATION SLIGHT
[2018-05-10 16:28] LABS: ALANINE AMINOTRANSFERASE 27 U/L (21-72); ALBUMIN 3.3 g/dL (3.5-5.0); ALKALINE PHOSPHATASE 125 U/L (38-126); ANION GAP 5 (5-19); ASPARTATE AMINO TRANSFERASE 61 U/L (17-59); BILIRUBIN,DIRECT 0.3 mg/dL (0.0-0.4); BILIRUBIN,TOTAL 0.3 mg/dL (0.2-1.3); BLOOD UREA NITROGEN 31 mg/dL (7-20); CALCIUM 9.7 mg/dL (8.4-10.2); CARBON DIOXIDE 19 mmol/L (22-30); CHLORIDE 116 mmol/L (98-107); GLUCOSE 78 mg/dL (75-110); POTASSIUM 5.5 mmol/L (3.6-5.0); SODIUM 140.3 mmol/L (137-145); TOTAL PROTEIN 7.2 g/dL (6.3-8.2)
[2018-05-10] MEDS: LEVOFLOXACIN 750 MG/D5W RTU 750 MG/150 ML RTUPB IV SCH (19:00)
--- NOTE | 2018-05-11 00:57 | XCELERA REPORT ---
[address] [address] Transthoracic Echocardiogram Report Name: CHESTER MCKEON Age: 38 yrs Gender: Male : 1980 Patient Status: Inpatient [facility] Study Date: 05/09/2018 08:57 AM Height: 68 in Weight: 145 lb BSA: 1.8 m2 Procedure: A two-dimensional transthoracic echocardiogram with color flow Doppler was performed. Study Quality: Fair. Reason For Study: CHF History: CHF. Ordering Physician: DENVER SOLER Performed By: Do Encinas Interpretation Summary The left ventricle is normal in size. There is normal left ventricular wall thickness. LV EF is 60% The left ventricular ejection fraction is within normal limits. Doppler measurements suggest normal left ventricular diastolic function The left ventricular wall motion is normal. There is no thrombus. There is no ventricular septal defect visualized. The right ventricle is normal in size and function. The right atrium is normal. The left atrial size is normal. The interatrial septum is intact with no evidence for an atrial septal defect. There is no Doppler evidence for an interatrial shunt There is no evidence of mitral valve prolapse. There is no vegetation seen on the mitral valve. The mitral valve leaflets appear thickened, but open well. There is no mitral valve stenosis. There is a trace amount of mitral regurgitation There is no aortic valvular vegetation. There is no aortic valve stenosis There is no LVOT obstruction. No aortic regurgitation is present. There is no tricuspid stenosis. There is a trace amount of tricuspid regurgitation Unable to calcu;late RVSP due to lack of TR jet. There is no pulmonic valvular stenosis. There is no pulmonic valvular regurgitation. The aortic root is normal size. Trace physiologic pericardial effusion. MMode/2D Measurements & Calculations RVDd: 2.5 cm LVIDd: 5.1 cm FS: 37.0 % Ao root diam: 3.1 cm IVSd: 0.57 cm LVIDs: 3.2 cm EDV(Teich): LVPWd: 0.88 cm 123.3 ml Ao root area: ESV(Teich): 41.2 ml7.4 cm2 EF(Teich): 66.6 % EDV(MOD-sp4): SV(MOD-sp4): 94.7 ml 48.0 ml ESV(MOD-sp4): 46.7 ml EF(MOD-sp4): 50.7 % Doppler Measurements & Calculations MV E max timoteo: MV dec slope: Ao V2 max: LV V1 max P.9 cm/sec 120.6 cm/sec 3.3 mmHg MV A max timoteo: 635.7 cm/sec2 Ao max PG: LV V1 max: 56.9 cm/sec MV dec time: 0.11 sec5.8 mmHg 90.7 cm/sec MV E/A: 1.2 PA V2 max: 90.9 cm/sec PA max P.3 mmHg Left Ventricle The left ventricle is normal in size. There is normal left ventricular wall thickness. LV EF is 60%. The left ventricular ejection fraction is within normal limits. Doppler measurements suggest normal left ventricular diastolic function. The left ventricular wall motion is normal. There is no thrombus. There is no ventricular septal defect visualized. Right Ventricle The right ventricle is normal in size and function. Atria The right atrium is normal. The left atrial size is normal. The interatrial septum is intact with no evidence for an atrial septal defect. There is no Doppler evidence for an interatrial shunt. Mitral Valve The mitral valve leaflets appear thickened, but open well. There is no evidence of mitral valve prolapse. There is no vegetation seen on the mitral valve. There is no mitral valve stenosis. There is a trace amount of mitral regurgitation. Aortic Valve There is no aortic valvular vegetation. There is no aortic valve stenosis. There is no LVOT obstruction. No aortic regurgitation is present. Tricuspid Valve There is no tricuspid stenosis. There is a trace amount of tricuspid regurgitation. Unable to calcu;late RVSP due to lack of TR jet. Pulmonic Valve There is no pulmonic valvular stenosis. There is no pulmonic valvular regurgitation. Great Vessels The aortic root is normal size. Effusions Trace physiologic pericardial effusion. : DENVER SOLER > [place]
[2018-05-11] MEDS: OXYCODONE-ACETAMINOPHEN 5-325 MG TABLET PO PRN ×4 (02:36→22:01)
[2018-05-11] MEDS: PROMETHAZINE HCL 25 MG TABLET PO PRN ×2 (02:36→08:21)
[2018-05-11 06:47] LABS: HEMATOCRIT 24.5 % (37.9-51.0); MEAN CORPUSCULAR HEMOGLOBIN 27.3 pg (27.0-33.4); MEAN CORPUSCULAR HGB CONC 32.7 g/dL (32.0-36.0); MEAN CORPUSCULAR VOLUME 84 fl (80-97); PLATELET COUNT 637 10^3/uL (150-450); RED BLOOD COUNT 2.93 10^6/uL (4.35-5.55); RED CELL DISTRIBUTION WIDTH 19.5 % (11.5-14.0); WHITE BLOOD COUNT 10.1 10^3/uL (4.0-10.5)
[2018-05-11 07:06] LABS: ALANINE AMINOTRANSFERASE 37 U/L (21-72); ALKALINE PHOSPHATASE 132 U/L (38-126); ANION GAP 8 (5-19); ASPARTATE AMINO TRANSFERASE 31 U/L (17-59); BILIRUBIN,DIRECT 0.1 mg/dL (0.0-0.4); BILIRUBIN,TOTAL 0.1 mg/dL (0.2-1.3); BLOOD UREA NITROGEN 36 mg/dL (7-20); CALCIUM 9.4 mg/dL (8.4-10.2); CARBON DIOXIDE 15 mmol/L (22-30); CHLORIDE 116 mmol/L (98-107); GLUCOSE 259 mg/dL (75-110); SODIUM 138.9 mmol/L (137-145); TOTAL PROTEIN 6.5 g/dL (6.3-8.2)
[2018-05-11 07:09] LABS: ABSOLUTE LYMPHOCYTES# (MANUAL) 3.3 10^3/uL (0.5-4.7); ABSOLUTE MONOCYTES # (MANUAL) 1.1 10^3/uL (0.1-1.4); ABSOLUTE NEUTROPHILS# (MANUAL) 5.2 10^3/uL (1.7-8.2); BAND NEUTROPHILS % (MANUAL) 1 % (3-5); BASOPHILS % (MANUAL) 0 % (0-2); EOSINOPHILS % (MANUAL) 5 % (0-6); LYMPHOCYTES % (MANUAL) 33 % (13-45); MONOCYTES % (MANUAL) 11 % (3-13); SEGMENTED NEUTROPHILS % (MAN) 50 % (42-78); TOTAL CELLS COUNTED 100
[2018-05-11 07:10] LABS: HYPOCHROMASIA 1+; POLYCHROMASIA 1+; TOXIC GRANULATION 2+
[2018-05-11 07:11] LABS: ANISOCYTOSIS 2+; PLATELET COMMENT ADEQUATE
[2018-05-11] MEDS: INSULIN LISPRO 100 UNIT/ML 3 ML VIAL SUBCUT SCH ×4 (08:20→21:59)
[2018-05-11] MEDS: INSULIN GLARGINE,HUM.REC.ANLOG 1,000 UNIT/10 ML VIAL SUBCUT SCH ×2 (09:41→22:00)
[2018-05-11] MEDS: SODIUM CHLORIDE NASAL SPRAY 44 ML NASL SCH ×4 (09:42→22:00)
[2018-05-11] MEDS: FLUTICASONE NASAL SPRAY 50 MCG/SPRY 120 SPRAY/16 GM NASL SCH ×2 (09:42→17:17)
[2018-05-11] MEDS ORDERED: SODIUM POLYSTYRENE SULFONATE 15 GM/60 ML PO ONE (10:00)
--- NOTE | 2018-05-11 12:10 | PDOC PROGRESS REPORT ---
Subjective Progress Note for:: 05/11/18 Subjective:: 05/10/2018 38-year-old male with history of diabetes mellitus uncontrolled because of noncompliance admitted multiple times complaining of a nausea and abdominal pains this morning requesting p.o. Phenergan because IV Phenergan is burning his skin. He is also requesting increasing pain medications presently is on Percocet 5 325 mg every 6 as needed I increased it to 2 tablets every 6 as needed. Blood sugar dropped to 30 last night he is on 40 units of Lantus twice a day and it was switched to 20 units twice a day today. IV fluids are discontinued. 05/11/2018-patient is still complaining of abdominal pains nausea. Is also complaining of bilateral lower leg swelling. He is getting the pain medication regular basis. His blood sugars are again more than 300s. Plan to increase the Lantus to 30 units twice a day and add insulin sliding scale coverage. Reason For Visit: POSSIBLE GI BLEED Physical Exam Vital Signs: Temp Pulse Resp BP Pulse Ox 97.6 F 98 18 124/75 99 05/11/18 07:58 05/11/18 07:58 05/11/18 07:58 05/11/18 07:58 05/11/18 07:58 Intake & Output 05/10/18 05/11/18 05/12/18 06:59 06:59 06:59 Intake Total 3945 3961 Output Total 3600 1500 Balance 345 2461 Weight 65.8 kg 64.3 kg General appearance: PRESENT: no acute distress Head exam: PRESENT: atraumatic Eye exam: PRESENT: PERRLA Neck exam: ABSENT: carotid bruit, JVD, lymphadenopathy, thyromegaly Respiratory exam: PRESENT: clear to auscultation alfonso. ABSENT: rales, rhonchi, wheezes Cardiovascular exam: PRESENT: RRR. ABSENT: diastolic murmur, rubs, systolic murmur GI/Abdominal exam: PRESENT: normal bowel sounds, soft. ABSENT: distended, guarding, mass, organolmegaly, rebound, tenderness Neurological exam: PRESENT: alert, awake, oriented to person, oriented to place, oriented to time, oriented to situation, CN II-XII grossly intact. ABSENT: m otor sensory deficit Psychiatric exam: PRESENT: appropriate affect, normal mood. ABSENT: homicidal ideation, suicidal ideation Results Laboratory Results: 05/11/18 05:58 05/11/18 05:58 05/10/18 05/10/18 05/10/18 14:08 14:08 15:56 WBC 9.6 RBC 3.23 L Hgb 8.5 L Hct 26.7 L MCV 83 MCH 26.5 L MCHC 32.0 RDW 19.3 H Plt Count 637 H Seg Neutrophils % Not Reportable Lymphocytes % Not Reportable Monocytes % Not Reportable Eosinophils % Not Reportable Basophils % Not Reportable Absolute Neutrophils Not Reportable Absolute Lymphocytes Not Reportable Absolute Monocytes Not Reportable Absolute Eosinophils Not Reportable Absolute Basophils Not Reportable Sodium Cancelled 140.3 Potassium Cancelled 5.5 H Chloride Cancelled 116 H Carbon Dioxide Cancelled 19 L Anion Gap Cancelled 5 BUN Cancelled 31 H Creatinine Cancelled 0.77 Est GFR ( Amer) Cancelled > 60 Est GFR (Non-Af Amer) Cancelled > 60 Glucose Cancelled 78 Calcium Cancelled 9.7 Magnesium Cancelled 1.7 Total Bilirubin Cancelled 0.3 AST Cancelled 61 H ALT Cancelled 27 Alkaline Phosphatase Cancelled 125 Total Protein Cancelled 7.2 Albumin Cancelled 3.3 L 05/11/18 05/11/18 05:58 05:58 WBC 10.1 RBC 2.93 L Hgb 8.0 L Hct 24.5 L MCV 84 MCH 27.3 MCHC 32.7 RDW 19.5 H Plt Count 637 H Seg Neutrophils % Not Reportable Lymphocytes % Not Reportable Monocytes % Not Reportable Eosinophils % Not Reportable Basophils % Not Reportable Absolute Neutrophils Not Reportable Absolute Lymphocytes Not Reportable Absolute Monocytes Not Reportable Absolute Eosinophils Not Reportable Absolute Basophils Not Reportable Sodium 138.9 Potassium 6.0 H* Chloride 116 H Carbon Dioxide 15 L Anion Gap 8 BUN 36 H Creatinine 1.09 Est GFR ( Amer) > 60 Est GFR (Non-Af Amer) > 60 Glucose 259 H Calcium 9.4 Magnesium 1.8 Total Bilirubin 0.1 L AST 31 ALT 37 Alkaline Phosphatase 132 H Total Protein 6.5 Albumin 3.0 L Impressions: Abdomen/Pelvis CT 05/03/18 00:00 IMPRESSION: Query enteritis of distal small bowel loops. Chest X-Ray 05/03/18 09:59 IMPRESSION: Focal airspace disease in the right upper lobe consistent with pneumonia. This is new from prior study. KUB X-Ray 05/03/18 10:00 IMPRESSION: NO RADIOGRAPHIC EVIDENCE FOR ACUTE ABDOMINAL DISEASE. Assessment and Plan - Diagnosis (1) DKA, type 1 Qualifiers: Is this a current diagnosis for this admission?: Yes Plan: 05/10/2018-patient has history of type 1 diabetes mellitus. Presently on Lantus 40 units twice a day and blood sugar dropped to 30 last night. Latest blood sugar in the 190s. Lantus was dose was decreased to 20 units twice a day and plan to continue insulin sliding scale. Dietary consult was requested. Diet complex medications discussed with the patient. 05/11/2018-patient has type 1 diabetes mellitus. Presently on Lantus 20 units twice a day plan is to increase the Lantus to 30 units twice a day continue the insulin sliding scale. Latest blood sugar is 307 this morning. Dietary consult was done during this hospital stay. (2) Acute on chronic blood loss anemia Is this a current diagnosis for this admission?: Yes Plan: His latest hemoglobin is 8. 05/10/2018-patient's latest hemoglobin is 8.0 plan to recheck CBC today. He has chronic blood loss anemia most likely secondary to severe gastritis. 05/11/2018 patient hemoglobin is 8.0. His chronic anemia most likely secondary to severe gastritis. (3) Hyperkalemia Is this a current diagnosis for this admission?: Yes Plan: Likely related to his DKA and acute renal failure. Continue to monitor Potassium with BMP. Resolved. 05/10/2018-patient was admitted with high potassium levels today's labs are pending p.o. potassium supplementation is discontinued today. 05/11/2018 serum potassium level is 6.0 patient was given Kayexalate 60 g 1 dose plan to repeat the potassium levels this evening. (4) Hyponatremia Is this a current diagnosis for this admission?: Yes Plan: Improving 05/10/2018-hyponatremia most likely secondary to prerenal causes nausea and vomiting. Today's labs are pending. 05/11/2018-serum sodium level is 139 hyponatremia secondary to prerenal causes resolved. (5) Polysubstance abuse Is this a current diagnosis for this admission?: Yes Plan: I reinforced with my counseling gained encouragement to remain clean. 05/10/2018-patient has history of polysubstance abuse serum toxicology at the time of admission is shows alcohol level of less than 10. Counseling was provided. - Time Time Spent with patient: 15-24 minutes Smoking Cessation Education: over 10 minutes Anticipated discharge: Home
[2018-05-11] MEDS ORDERED: FUROSEMIDE INJ/PF 40 MG/4 ML SDV IV ONE (13:00)
[2018-05-11] MEDS: PROMETHAZINE HCL INJ 25 MG/1 ML VIAL IV PRN (22:01)
[2018-05-12] MEDS: OXYCODONE-ACETAMINOPHEN 5-325 MG TABLET PO PRN ×3 (03:50→17:05)
[2018-05-12] MEDS: PROMETHAZINE HCL 25 MG TABLET PO PRN ×4 (03:50→23:23)
[2018-05-12 06:46] LABS: HEMATOCRIT 26.6 % (37.9-51.0); HEMOGLOBIN 8.5 g/dL (13.5-17.0); MEAN CORPUSCULAR HEMOGLOBIN 26.8 pg (27.0-33.4); MEAN CORPUSCULAR HGB CONC 31.9 g/dL (32.0-36.0); MEAN CORPUSCULAR VOLUME 84 fl (80-97); PLATELET COUNT 668 10^3/uL (150-450); RED BLOOD COUNT 3.16 10^6/uL (4.35-5.55); RED CELL DISTRIBUTION WIDTH 20.3 % (11.5-14.0); WHITE BLOOD COUNT 9.2 10^3/uL (4.0-10.5)
[2018-05-12 07:01] LABS: ALANINE AMINOTRANSFERASE 37 U/L (21-72); ALBUMIN 3.3 g/dL (3.5-5.0); ALKALINE PHOSPHATASE 145 U/L (38-126); ANION GAP 9 (5-19); ASPARTATE AMINO TRANSFERASE 43 U/L (17-59); BILIRUBIN,DIRECT 0.2 mg/dL (0.0-0.4); BILIRUBIN,TOTAL 0.2 mg/dL (0.2-1.3); BLOOD UREA NITROGEN 45 mg/dL (7-20); CALCIUM 9.8 mg/dL (8.4-10.2); CARBON DIOXIDE 16 mmol/L (22-30); CHLORIDE 114 mmol/L (98-107); GLUCOSE 321 mg/dL (75-110); SODIUM 138.8 mmol/L (137-145); TOTAL PROTEIN 6.9 g/dL (6.3-8.2)
[2018-05-12 07:03] LABS: ABSOLUTE LYMPHOCYTES# (MANUAL) 3.5 10^3/uL (0.5-4.7); ABSOLUTE MONOCYTES # (MANUAL) 1.2 10^3/uL (0.1-1.4); ABSOLUTE NEUTROPHILS# (MANUAL) 3.8 10^3/uL (1.7-8.2); BAND NEUTROPHILS % (MANUAL) 3 % (3-5); BASOPHILS % (MANUAL) 0 % (0-2); EOSINOPHILS % (MANUAL) 8 % (0-6); LYMPHOCYTES % (MANUAL) 38 % (13-45); MONOCYTES % (MANUAL) 13 % (3-13); SEGMENTED NEUTROPHILS % (MAN) 36 % (42-78); TOTAL CELLS COUNTED 100
[2018-05-12 07:04] LABS: ANISOCYTOSIS 2+; PLATELET COMMENT INCREASED; POLYCHROMASIA SLIGHT; TOXIC VACUOLATION PRESENT
[2018-05-12 07:05] LABS: MYELOCYTES % (MANUAL) 1 % (0); PROMYELOCYTES % (MANUAL) 1 % (0)
[2018-05-12] MEDS: INSULIN LISPRO 100 UNIT/ML 3 ML VIAL SUBCUT SCH ×4 (08:35→21:34)
[2018-05-12] MEDS: FLUTICASONE NASAL SPRAY 50 MCG/SPRY 120 SPRAY/16 GM NASL SCH ×2 (08:36→17:02)
[2018-05-12] MEDS: SODIUM CHLORIDE NASAL SPRAY 44 ML NASL SCH ×4 (08:36→21:42)
[2018-05-12] MEDS: INSULIN GLARGINE,HUM.REC.ANLOG 1,000 UNIT/10 ML VIAL SUBCUT SCH ×2 (08:36→21:34)
[2018-05-12 11:55] LABS: PATH REVIEW PATHOLOGIST REVIEWED
--- NOTE | 2018-05-12 11:57 | PDOC PROGRESS REPORT ---
Subjective Progress Note for:: 05/12/18 Subjective:: 05/10/2018 38-year-old male with history of diabetes mellitus uncontrolled because of noncompliance admitted multiple times complaining of a nausea and abdominal pains this morning requesting p.o. Phenergan because IV Phenergan is burning his skin. He is also requesting increasing pain medications presently is on Percocet 5 325 mg every 6 as needed I increased it to 2 tablets every 6 as needed. Blood sugar dropped to 30 last night he is on 40 units of Lantus twice a day and it was switched to 20 units twice a day today. IV fluids are discontinued. 05/11/2018-patient is still complaining of abdominal pains nausea. Is also complaining of bilateral lower leg swelling. He is getting the pain medication regular basis. His blood sugars are again more than 300s. Plan to increase the Lantus to 30 units twice a day and add insulin sliding scale coverage. [id number]-kbwf-old male with history of type 1 diabetes mellitus admitted several times for uncontrolled diabetes mellitus secondary to noncompliance still complains of nausea and vomiting at this morning. He is receiving p.o. Phenergan because IV Phenergan is burning his skin. He is also receiving pain medications Percocet 2 tablets every 6 hours as needed basis. Presently on Lantus 30 units twice daily blood sugar is 119. Is concerned about leg swelling. BNP came back as 1880. He received Lasix 40 mg IV 1 dose yesterday with improvement in the edema we are going to give 1 more dose of Lasix today. Reason For Visit: POSSIBLE GI BLEED Physical Exam Vital Signs: Temp Pulse Resp BP Pulse Ox 97.7 F 108 H 16 139/82 H 99 05/12/18 08:22 05/12/18 08:22 05/12/18 08:22 05/12/18 08:22 05/12/18 08:22 Intake & Output 05/11/18 05/12/18 05/13/18 06:59 06:59 06:59 Intake Total 3961 3595 Output Total 1500 5 Balance 2461 3590 Weight 64.3 kg 68.8 kg General appearance: PRESENT: no acute distress Head exam: PRESENT: atraumatic Eye exam: PRESENT: PERRLA Mouth exam: PRESENT: moist, tongue midline Neck exam: ABSENT: carotid bruit, JVD, lymphadenopathy, thyromegaly Respiratory exam: PRESENT: clear to auscultation alfonso. ABSENT: rales, rhonchi, wheezes Cardiovascular exam: PRESENT: RRR. ABSENT: diastolic murmur, rubs, systolic murmur GI/Abdominal exam: PRESENT: normal bowel sounds, soft. ABSENT: distended, guarding, mass, organolmegaly, rebound, tenderness Extremities exam: PRESENT: full ROM. ABSENT: calf tenderness, clubbing, pedal edema Neurological exam: PRESENT: alert, awake, oriented to person, oriented to place, oriented to time, oriented to situation, CN II-XII grossly intact. ABSENT: motor sensory deficit Psychiatric exam: PRESENT: appropriate affect, normal mood. ABSENT: homicidal ideation, suicidal ideation Results Laboratory Results: 05/12/18 06:05 05/12/18 06:05 05/11/18 05/12/18 05/12/18 14:25 06:05 06:05 WBC 9.2 RBC 3.16 L Hgb 8.5 L Hct 26.6 L MCV 84 MCH 26.8 L MCHC 31.9 L RDW 20.3 H Plt Count 668 H Seg Neutrophils % Not Reportable Lymphocytes % Not Reportable Monocytes % Not Reportable Eosinophils % Not Reportable Basophils % Not Reportable Absolute Neutrophils Not Reportable Absolute Lymphocytes Not Reportable Absolute Monocytes Not Reportable Absolute Eosinophils Not Reportable Absolute Basophils Not Reportable Sodium 138.8 Potassium 5.3 H 5.0 Chloride 114 H Carbon Dioxide 16 L Anion Gap 9 BUN 45 H Creatinine 0.99 Est GFR ( Amer) > 60 Est GFR (Non-Af Amer) > 60 Glucose 321 H Calcium 9.8 Magnesium 1.7 Total Bilirubin 0.2 AST 43 ALT 37 Alkaline Phosphatase 145 H Total Protein 6.9 Albumin 3.3 L Impressions: Abdomen/Pelvis CT 05/03/18 00:00 IMPRESSION: Query enteritis of distal small bowel loops. Chest X-Ray 05/03/18 09:59 IMPRESSION: Focal airspace disease in the right upper lobe consistent with pneumonia. This is new from prior study. KUB X-Ray 05/03/18 10:00 IMPRESSION: NO RADIOGRAPHIC EVIDENCE FOR ACUTE ABDOMINAL DISEASE. Assessment and Plan - Diagnosis (1) DKA, type 1 Qualifiers: Is this a current diagnosis for this admission?: Yes Plan: 05/10/2018-patient has history of type 1 diabetes mellitus. Presently on Lantus 40 units twice a day and blood sugar dropped to 30 last night. Latest blood sugar in the 190s. Lantus was dose was decreased to 20 units twice a day and plan to continue insulin sliding scale. Dietary consult was requested. Diet complex medications discussed with the patient. 05/11/2018-patient has type 1 diabetes mellitus. Presently on Lantus 20 units twice a day plan is to increase the Lantus to 30 units twice a day continue the insulin sliding scale. Latest blood sugar is 307 this morning. Dietary consult was done during this hospital stay. 05/12/2018-patient has type 1 diabetes mellitus on Lantus 30 units twice a day and insulin sliding scale before meals and at bedtime. Latest blood sugar is 119. To check hemoglobin A1c. Diet compliant with medications discussed with the patient. To start him on Glucerna 1 can p.o. 3 times daily because of the lower leg swelling may be secondary to hypoalbuminemia. (2) Acute on chronic blood loss anemia Is this a current diagnosis for this admission?: Yes Plan: His latest hemoglobin is 8. 05/10/2018-patient's latest hemoglobin is 8.0 plan to recheck CBC today. He has chronic blood loss anemia most likely secondary to severe gastritis. 05/11/2018 patient hemoglobin is 8.0. His chronic anemia most likely secondary to severe gastritis. 05/12/2018-patient's latest hemoglobin is 8.5 today he has a chronic anemia most likely secondary to severe gastritis. (3) Hyperkalemia Is this a current diagnosis for this admission?: Yes Plan: Likely related to his DKA and acute renal failure. Continue to monitor Potassium with BMP. Resolved. 05/10/2018-patient was admitted with high potassium levels today's labs are pending p.o. potassium supplementation is discontinued today. 05/11/2018 serum potassium level is 6.0 patient was given Kayexalate 60 g 1 dose plan to repeat the potassium levels this evening. 05/12/2018-serum potassium today is 5.0 low potassium diet is recommended. He received Kayexalate 60 g for a potassium of 6.0 yesterday. (4) Hyponatremia Is this a current diagnosis for this admission?: Yes Plan: Improving 05/10/2018-hyponatremia most likely secondary to prerenal causes nausea and vomiting. Today's labs are pending. 05/11/2018-serum sodium level is 139 hyponatremia secondary to prerenal causes resolved. 05/12/2018-serum potassium today is 138.8 hyponatremia is resolved. (5) Polysubstance abuse Is this a current diagnosis for this admission?: Yes Plan: I reinforced with my counseling gained encouragement to remain clean. 05/10/2018-patient has history of polysubstance abuse serum toxicology at the time of admission is shows alcohol level of less than 10. Counseling was provided. 05/12/2018-patient has history of polysubstance abuse counseling was provided again today. (6) Nausea Is this a current diagnosis for this admission?: Yes Plan: 05/12/2018-patient is complaining of nausea and vomitings most likely secondary to diabetic gastroparesis.
[2018-05-12] MEDS ORDERED: FUROSEMIDE INJ/PF 40 MG/4 ML SDV IV ONE (12:30)
[2018-05-13 06:16] LABS: HEMATOCRIT 25.3 % (37.9-51.0); HEMOGLOBIN 8.5 g/dL (13.5-17.0); MEAN CORPUSCULAR HEMOGLOBIN 27.4 pg (27.0-33.4); MEAN CORPUSCULAR HGB CONC 33.7 g/dL (32.0-36.0); MEAN CORPUSCULAR VOLUME 81 fl (80-97); PLATELET COUNT 717 10^3/uL (150-450); RED BLOOD COUNT 3.11 10^6/uL (4.35-5.55); RED CELL DISTRIBUTION WIDTH 20.3 % (11.5-14.0); WHITE BLOOD COUNT 11.8 10^3/uL (4.0-10.5)
[2018-05-13 06:22] LABS: ALANINE AMINOTRANSFERASE 50 U/L (21-72); ALBUMIN 3.3 g/dL (3.5-5.0); ALKALINE PHOSPHATASE 166 U/L (38-126); ANION GAP 10 (5-19); ASPARTATE AMINO TRANSFERASE 92 U/L (17-59); BILIRUBIN,DIRECT 0.1 mg/dL (0.0-0.4); BILIRUBIN,TOTAL 0.1 mg/dL (0.2-1.3); BLOOD UREA NITROGEN 41 mg/dL (7-20); CALCIUM 9.5 mg/dL (8.4-10.2); CARBON DIOXIDE 20 mmol/L (22-30); CHLORIDE 111 mmol/L (98-107); SODIUM 140.9 mmol/L (137-145)
[2018-05-13 06:34] LABS: GLUCOSE 31 mg/dL (75-110); POTASSIUM 3.9 mmol/L (3.6-5.0)
[2018-05-13 06:44] LABS: ABSOLUTE MONOCYTES # (MANUAL) 1.7 10^3/uL (0.1-1.4); ABSOLUTE NEUTROPHILS# (MANUAL) 5.8 10^3/uL (1.7-8.2); BASOPHILS % (MANUAL) 0 % (0-2); EOSINOPHILS % (MANUAL) 3 % (0-6); LYMPHOCYTES % (MANUAL) 34 % (13-45); MONOCYTES % (MANUAL) 14 % (3-13); SEGMENTED NEUTROPHILS % (MAN) 49 % (42-78); TOTAL CELLS COUNTED 100
[2018-05-13 06:45] LABS: ANISOCYTOSIS 2+; HYPOCHROMASIA 1+; PLATELET COMMENT ADEQUATE; POLYCHROMASIA 1+
[2018-05-13] MEDS: INSULIN LISPRO 100 UNIT/ML 3 ML VIAL SUBCUT SCH ×4 (08:00→21:12)
[2018-05-13] MEDS: FLUTICASONE NASAL SPRAY 50 MCG/SPRY 120 SPRAY/16 GM NASL SCH ×2 (09:41→17:17)
[2018-05-13] MEDS: SODIUM CHLORIDE NASAL SPRAY 44 ML NASL SCH ×4 (09:41→21:14)
[2018-05-13] MEDS: INSULIN GLARGINE,HUM.REC.ANLOG 1,000 UNIT/10 ML VIAL SUBCUT SCH ×2 (10:53→21:13)
[2018-05-13] MEDS ORDERED: INSULIN GLARGINE,HUM.REC.ANLOG 1,000 UNIT/10 ML VIAL SUBCUT SCH (11:00)
[2018-05-13] MEDS: PROMETHAZINE HCL INJ 25 MG/1 ML VIAL IV PRN ×2 (12:21→17:13)
--- NOTE | 2018-05-13 12:21 | PDOC PROGRESS REPORT ---
Subjective Progress Note for:: 05/13/18 Subjective:: 05/10/2018 38-year-old male with history of diabetes mellitus uncontrolled because of noncompliance admitted multiple times complaining of a nausea and abdominal pains this morning requesting p.o. Phenergan because IV Phenergan is burning his skin. He is also requesting increasing pain medications presently is on Percocet 5 325 mg every 6 as needed I increased it to 2 tablets every 6 as needed. Blood sugar dropped to 30 last night he is on 40 units of Lantus twice a day and it was switched to 20 units twice a day today. IV fluids are discontinued. 05/11/2018-patient is still complaining of abdominal pains nausea. Is also complaining of bilateral lower leg swelling. He is getting the pain medication regular basis. His blood sugars are again more than 300s. Plan to increase the Lantus to 30 units twice a day and add insulin sliding scale coverage. 05/[id number]-tdlq-old male with history of type 1 diabetes mellitus admitted several times for uncontrolled diabetes mellitus secondary to noncompliance still complains of nausea and vomiting at this morning. He is receiving p.o. Phenergan because IV Phenergan is burning his skin. He is also receiving pain medications Percocet 2 tablets every 6 hours as needed basis. Presently on Lantus 30 units twice daily blood sugar is 119. Is concerned about leg swelling. BNP came back as 1880. He received Lasix 40 mg IV 1 dose yesterday with improvement in the edema we are going to give 1 more dose of Lasix today. 05/[id number]-gxdm-old male with history of type 1 diabetes mellitus noncompliant with his medications also history of polysubstance abuse admitted for high blood sugars. This morning blood sugars are running low. He did not receive his morning insulin because he is nauseated unable to eat breakfast. Complaining of soreness in the abdomen nausea abdominal pains also complaining of pain in the legs plan is to restart oxycodone which was fell off the APR from yesterday. Plan to do the KUB today. Reason For Visit: POSSIBLE GI BLEED Physical Exam Vital Signs: Temp Pulse Resp BP Pulse Ox 98.6 F 102 H 16 136/76 H 99 05/13/18 11:09 05/13/18 11:09 05/13/18 11:09 05/13/18 11:09 05/13/18 11:09 Intake & Output 05/12/18 05/13/18 05/14/18 06:59 06:59 06:59 Intake Total 3595 1390 Output Total 5 Balance 3590 1390 Weight 68.8 kg 68.4 kg General appearance: PRESENT: mild distress Head exam: PRESENT: atraumatic Eye exam: PRESENT: PERRLA Neck exam: ABSENT: carotid bruit, JVD, lymphadenopathy, thyromegaly Respiratory exam: PRESENT: clear to auscultation alfonso. ABSENT: rales, rhonchi, wheezes Cardiovascular exam: PRESENT: RRR. ABSENT: diastolic murmur, rubs, systolic murmur GI/Abdominal exam: PRESENT: normal bowel sounds, soft. ABSENT: distended, guarding, mass, organolmegaly, rebound, tenderness Extremities exam: PRESENT: full ROM. ABSENT: calf tenderness, clubbing, pedal edema Neurological exam: PRESENT: alert, awake, oriented to person, oriented to place, oriented to time, oriented to situation, CN II-XII grossly intact. ABSENT: motor sensory deficit Psychiatric exam: PRESENT: appropriate affect, normal mood. ABSENT: homicidal ideation, suicidal ideation Results Laboratory Results: 05/13/18 05:32 05/13/18 05:32 05/13/18 05/13/18 05:32 05:32 WBC 11.8 H RBC 3.11 L Hgb 8.5 L Hct 25.3 L MCV 81 MCH 27.4 MCHC 33.7 RDW 20.3 H Plt Count 717 H Seg Neutrophils % Not Reportable Lymphocytes % Not Reportable Monocytes % Not Reportable Eosinophils % Not Reportable Basophils % Not Reportable Absolute Neutrophils Not Reportable Absolute Lymphocytes Not Reportable Absolute Monocytes Not Reportable Absolute Eosinophils Not Reportable Absolute Basophils Not Reportable Sodium 140.9 Potassium 3.9 D Chloride 111 H Carbon Dioxide 20 L Anion Gap 10 BUN 41 H Creatinine 0.78 Est GFR ( Amer) > 60 Est GFR (Non-Af Amer) > 60 Glucose 31 L* Calcium 9.5 Magnesium 1.9 Total Bilirubin 0.1 L AST 92 H ALT 50 Alkaline Phosphatase 166 H Total Protein 7.0 Albumin 3.3 L 05/13/18 05:32 NT-Pro-B Natriuret Pep 60 Impressions: Abdomen/Pelvis CT 05/03/18 00:00 IMPRESSION: Query enteritis of distal small bowel loops. Chest X-Ray 05/03/18 09:59 IMPRESSION: Focal airspace disease in the right upper lobe consistent with pneumonia. This is new from prior study. KUB X-Ray 05/03/18 10:00 IMPRESSION: NO RADIOGRAPHIC EVIDENCE FOR ACUTE ABDOMINAL DISEASE. Assessment and Plan - Diagnosis (1) DKA, type 1 Qualifiers: Is this a current diagnosis for this admission?: Yes Plan: 05/10/2018-patient has history of type 1 diabetes mellitus. Presently on Lantus 40 units twice a day and blood sugar dropped to 30 last night. Latest blood sugar in the 190s. Lantus was dose was decreased to 20 units twice a day and plan to continue insulin sliding scale. Dietary consult was requested. Diet complex medications discussed with the patient. 05/11/2018-patient has type 1 diabetes mellitus. Presently on Lantus 20 units twice a day plan is to increase the Lantus to 30 units twice a day continue the insulin sliding scale. Latest blood sugar is 307 this morning. Dietary consult was done during this hospital stay. 05/12/2018-patient has type 1 diabetes mellitus on Lantus 30 units twice a day and insulin sliding scale before meals and at bedtime. Latest blood sugar is 119. To check hemoglobin A1c. Diet compliant with medications discussed with the patient. To start him on Glucerna 1 can p.o. 3 times daily because of the lower leg swelling may be secondary to hypoalbuminemia. 05/13/2018-patient's blood sugar this morning is 31, improved to 189 just a while ago. He is getting hypoglycemic early in the morning. I am going to decrease his evening dose of insulin. hemoGlobin A1c is 11.5. (2) Acute on chronic blood loss anemia Is this a current diagnosis for this admission?: Yes Plan: His latest hemoglobin is 8. 05/10/2018-patient's latest hemoglobin is 8.0 plan to recheck CBC today. He has chronic blood loss anemia most likely secondary to severe gastritis. 05/11/2018 patient hemoglobin is 8.0. His chronic anemia most likely secondary to severe gastritis. 05/12/2018-patient's latest hemoglobin is 8.5 today he has a chronic anemia most likely secondary to severe gastritis. 05/13/2018-patient's hemoglobin is 8.5 stable patient has anemia of chronic disease. (3) Hyperkalemia Is this a current diagnosis for this admission?: Yes Plan: Likely related to his DKA and acute renal failure. Continue to monitor Potassium with BMP. Resolved. 05/10/2018-patient was admitted with high potassium levels today's labs are pending p.o. potassium supplementation is discontinued today. 05/11/2018 serum potassium level is 6.0 patient was given Kayexalate 60 g 1 dose plan to repeat the potassium levels this evening. 05/12/2018-serum potassium today is 5.0 low potassium diet is recommended. He received Kayexalate 60 g for a potassium of 6.0 yesterday. 05/13/2018-serum potassium level is 3.9, patient is on low potassium diet -- hyperkalemia is resolved. (4) Hyponatremia Is this a current diagnosis for this admission?: Yes Plan: Improving 05/10/2018-hyponatremia most likely secondary to prerenal causes nausea and vomiting. Today's labs are pending. 05/11/2018-serum sodium level is 139 hyponatremia secondary to prerenal causes resolved. 05/12/2018-serum potassium today is 138.8 hyponatremia is resolved. 05/13/2018-patient's serum sodium level is 140.9 hyponatremia is resolved. hyponatremia most likely secondary to poor oral intake. (5) Polysubstance abuse Is this a current diagnosis for this admission?: Yes (6) Nausea Is this a current diagnosis for this admission?: Yes Plan: 05/12/2018-patient is complaining of nausea and vomitings most likely secondary to diabetic gastroparesis. 05/13/2018-patient is complaining of persistent nausea unable to eat breakfast this morning complaining of abdominal soreness and pain plan to do the KUB today. - Time Time Spent with patient: 15-24 minutes Smoking Cessation Education: over 10 minutes Medications reviewed and adjusted accordingly: Yes Anticipated discharge: Home
[2018-05-13] MEDS: OXYCODONE HCL IR 5 MG TABLET PO PRN ×2 (13:29→19:56)
--- NOTE | 2018-05-13 16:54 | RADIOLOGY REPORT (SQ) ---
EXAM DESCRIPTION: KUB/ABDOMEN (SINGLE VIEW) COMPLETED DATE/TIME: 05/13/2018 4:04 pm REASON FOR STUDY: abdominal pain and nausea COMPARISON: 05/03/2018 and 09/15/2017 NUMBER OF VIEWS: One view. TECHNIQUE: Supine radiographic image of the abdomen acquired. LIMITATIONS: None. FINDINGS: BOWEL GAS PATTERN: Normal bowel gas pattern. No dilated loops. CALCIFICATIONS: No suspicious calcifications. SOFT TISSUES: No gross mass or suggestion of organomegaly. HARDWARE: None in the abdomen. BONES: No acute fracture. No worrisome bone lesions. OTHER: No other significant finding. IMPRESSION: NO RADIOGRAPHIC EVIDENCE FOR ACUTE ABDOMINAL DISEASE. TECHNICAL DOCUMENTATION: JOB ID: [id number] [employer]- All Rights Reserved Reading location - IP/workstation name: [email or web address]
[2018-05-14] MEDS: OXYCODONE HCL IR 5 MG TABLET PO PRN ×4 (02:14→20:23)
[2018-05-14] MEDS: PROMETHAZINE HCL 25 MG TABLET PO PRN ×4 (02:18→22:29)
[2018-05-14 06:26] LABS: ABSOLUTE BASOPHILS # (AUTO) 0.1 10^3/uL (0.0-0.2); ABSOLUTE EOSINOPHILS # (AUTO) 0.3 10^3/uL (0.0-0.6); ABSOLUTE LYMPHOCYTES (AUTO) 2.8 10^3/uL (0.5-4.7); ABSOLUTE MONOCYTES (AUTO) 1.1 10^3/uL (0.1-1.4); HEMATOCRIT 24.3 % (37.9-51.0); HEMOGLOBIN 8.1 g/dL (13.5-17.0); LYMPHOCYTES % (AUTO) 30.3 % (13-45); MEAN CORPUSCULAR HEMOGLOBIN 27.2 pg (27.0-33.4); MEAN CORPUSCULAR HGB CONC 33.3 g/dL (32.0-36.0); MEAN CORPUSCULAR VOLUME 82 fl (80-97); MONOCYTES % (AUTO) 12.1 % (3-13); PLATELET COUNT 638 10^3/uL (150-450); RED BLOOD COUNT 2.97 10^6/uL (4.35-5.55); RED CELL DISTRIBUTION WIDTH 20.5 % (11.5-14.0); SEGMENTED NEUTROPHILS % (AUTO) 53.6 % (42-78); TOTAL CELLS COUNTED % (AUTO) 100 %; WHITE BLOOD COUNT 9.4 10^3/uL (4.0-10.5)
[2018-05-14 06:41] LABS: BLOOD UREA NITROGEN 50 mg/dL (7-20); CALCIUM 9.8 mg/dL (8.4-10.2); GLUCOSE 113 mg/dL (75-110)
[2018-05-14 06:42] LABS: ALANINE AMINOTRANSFERASE 72 U/L (21-72); ALBUMIN 3.4 g/dL (3.5-5.0); ALKALINE PHOSPHATASE 161 U/L (38-126); ANION GAP 9 (5-19); ASPARTATE AMINO TRANSFERASE 155 U/L (17-59); BILIRUBIN,DIRECT 0.2 mg/dL (0.0-0.4); BILIRUBIN,TOTAL 0.2 mg/dL (0.2-1.3); CARBON DIOXIDE 21 mmol/L (22-30); CHLORIDE 108 mmol/L (98-107); POTASSIUM 4.6 mmol/L (3.6-5.0); SODIUM 137.9 mmol/L (137-145)
[2018-05-14] MEDS: INSULIN LISPRO 100 UNIT/ML 3 ML VIAL SUBCUT SCH ×4 (08:34→22:26)
[2018-05-14] MEDS: SODIUM CHLORIDE NASAL SPRAY 44 ML NASL SCH ×2 (08:35→11:50)
[2018-05-14] MEDS: FLUTICASONE NASAL SPRAY 50 MCG/SPRY 120 SPRAY/16 GM NASL SCH (09:26)
[2018-05-14] MEDS: INSULIN GLARGINE,HUM.REC.ANLOG 1,000 UNIT/10 ML VIAL SUBCUT SCH ×2 (09:52→22:26)
--- NOTE | 2018-05-14 11:17 | PDOC PROGRESS REPORT ---
Subjective Progress Note for:: 05/14/18 Subjective:: 05/10/2018 38-year-old male with history of diabetes mellitus uncontrolled because of noncompliance admitted multiple times complaining of a nausea and abdominal pains this morning requesting p.o. Phenergan because IV Phenergan is burning his skin. He is also requesting increasing pain medications presently is on Percocet 5 325 mg every 6 as needed I increased it to 2 tablets every 6 as needed. Blood sugar dropped to 30 last night he is on 40 units of Lantus twice a day and it was switched to 20 units twice a day today. IV fluids are discontinued. 05/11/2018-patient is still complaining of abdominal pains nausea. Is also complaining of bilateral lower leg swelling. He is getting the pain medication regular basis. His blood sugars are again more than 300s. Plan to increase the Lantus to 30 units twice a day and add insulin sliding scale coverage. 05/13/[id number]-mzzs-old male with history of type 1 diabetes mellitus admitted several times for uncontrolled diabetes mellitus secondary to noncompliance still complains of nausea and vomiting at this morning. He is receiving p.o. Phenergan because IV Phenergan is burning his skin. He is also receiving pain medications Percocet 2 tablets every 6 hours as needed basis. Presently on Lantus 30 units twice daily blood sugar is 119. Is concerned about leg swelling. BNP came back as 1880. He received Lasix 40 mg IV 1 dose yesterday with improvement in the edema we are going to give 1 more dose of Lasix today. 05/[id number]-ipvv-old male with history of type 1 diabetes mellitus noncompliant with his medications also history of polysubstance abuse admitted for high blood sugars. This morning blood sugars are running low. He did not receive his morning insulin because he is nauseated unable to eat breakfast. Complaining of soreness in the abdomen nausea abdominal pains also complaining of pain in the legs plan is to restart oxycodone which was fell off the APR from yesterday. Plan to do the KUB today. 05/14/[id number]-aclf-old male with history of type 1 diabetes mellitus admitted with Abdominal pains nausea vomiting's high blood sugars. His blood sugar this morning is 124. Stable. KUB was done yesterday shows no acute pathology. But the patient is telling me this morning pain for the last 2 days is different compared to the pain he used to have before requesting for CT abdomen. No acute events in the last 24 hours. Reason For Visit: POSSIBLE GI BLEED Physical Exam Vital Signs: Temp Pulse Resp BP Pulse Ox 98 F 104 H 16 126/76 H 100 05/14/18 09:00 05/14/18 09:00 05/14/18 09:00 05/14/18 09:00 05/14/18 09:00 Intake & Output 05/13/18 05/14/18 05/15/18 06:59 06:59 06:59 Intake Total 1390 1308 Balance 1390 1308 Weight 68.4 kg 69.8 kg General appearance: PRESENT: no acute distress Head exam: PRESENT: atraumatic Eye exam: PRESENT: PERRLA Mouth exam: PRESENT: moist, tongue midline Neck exam: ABSENT: carotid bruit, JVD, lymphadenopathy, thyromegaly Respiratory exam: PRESENT: clear to auscultation alfonso. ABSENT: rales, rhonchi, wheezes Cardiovascular exam: PRESENT: RRR. ABSENT: diastolic murmur, rubs, systolic murmur GI/Abdominal exam: PRESENT: other - On gentle palpation complaining of epigastric tenderness. Extremities exam: PRESENT: full ROM. ABSENT: calf tenderness, clubbing, pedal edema Neurological exam: PRESENT: alert, awake, oriented to person, oriented to place, oriented to time, oriented to situation, CN II-XII grossly intact. ABSENT: motor sensory deficit Psychiatric exam: PRESENT: appropriate affect, normal mood. ABSENT: homicidal ideation, suicidal ideation Results Laboratory Results: 05/14/18 05:46 05/14/18 05:46 05/14/18 05/14/18 05:46 05:46 WBC 9.4 RBC 2.97 L Hgb 8.1 L Hct 24.3 L MCV 82 MCH 27.2 MCHC 33.3 RDW 20.5 H Plt Count 638 H Seg Neutrophils % 53.6 Lymphocytes % 30.3 Monocytes % 12.1 Eosinophils % 3.0 Basophils % 1.0 Absolute Neutrophils 5.0 Absolute Lymphocytes 2.8 Absolute Monocytes 1.1 Absolute Eosinophils 0.3 Absolute Basophils 0.1 Sodium 137.9 Potassium 4.6 Chloride 108 H Carbon Dioxide 21 L Anion Gap 9 BUN 50 H Creatinine 0.83 Est GFR ( Amer) > 60 Est GFR (Non-Af Amer) > 60 Glucose 113 H Calcium 9.8 Magnesium 1.9 Total Bilirubin 0.2 AST 155 H ALT 72 Alkaline Phosphatase 161 H Total Protein 7.0 Albumin 3.4 L 05/13/18 05:32 NT-Pro-B Natriuret Pep 60 Impressions: Abdomen/Pelvis CT 05/03/18 00:00 IMPRESSION: Query enteritis of distal small bowel loops. Chest X-Ray 05/03/18 09:59 IMPRESSION: Focal airspace disease in the right upper lobe consistent with pneumonia. This is new from prior study. KUB X-Ray 05/13/18 00:00 IMPRESSION: NO RADIOGRAPHIC EVIDENCE FOR ACUTE ABDOMINAL DISEASE. Assessment and Plan - Diagnosis (1) DKA, type 1 Qualifiers: Is this a current diagnosis for this admission?: Yes Plan: 05/10/2018-patient has history of type 1 diabetes mellitus. Presently on Lantus 40 units twice a day and blood sugar dropped to 30 last night. Latest blood sugar in the 190s. Lantus was dose was decreased to 20 units twice a day and plan to continue insulin sliding scale. Dietary consult was requested. Diet complex medications discussed with the patient. 05/11/2018-patient has type 1 diabetes mellitus. Presently on Lantus 20 units twice a day plan is to increase the Lantus to 30 units twice a day continue the insulin sliding scale. Latest blood sugar is 307 this morning. Dietary consult was done during this hospital stay. 05/12/2018-patient has type 1 diabetes mellitus on Lantus 30 units twice a day and insulin sliding scale before meals and at bedtime. Latest blood sugar is 119. To check hemoglobin A1c. Diet compliant with medications discussed with the patient. To start him on Glucerna 1 can p.o. 3 times daily because of the lower leg swelling may be secondary to hypoalbuminemia. 05/13/2018-patient's blood sugar this morning is 31, improved to 189 just a while ago. He is getting hypoglycemic early in the morning. I am going to decrease his evening dose of insulin. hemoGlobin A1c is 11.5. 05/14/2018-patient's latest blood sugar is 124. Presently on Lantus 20 units twice a day and insulin sliding scale plan is to continue the present management. (2) Acute on chronic blood loss anemia Is this a current diagnosis for this admission?: Yes Plan: His latest hemoglobin is 8. 05/10/2018-patient's latest hemoglobin is 8.0 plan to recheck CBC today. He has chronic blood loss anemia most likely secondary to severe gastritis. 05/11/2018 patient hemoglobin is 8.0. His chronic anemia most likely secondary to severe gastritis. 05/12/2018-patient's latest hemoglobin is 8.5 today he has a chronic anemia most likely secondary to severe gastritis. 05/13/2018-patient's hemoglobin is 8.5 stable patient has anemia of chronic disease. 05/14/2018-patient's latest hemoglobin is 8.1 his baseline is in between 8-9. Stable. (3) Hyperkalemia Is this a current diagnosis for this admission?: Yes (4) Hyponatremia Is this a current diagnosis for this admission?: Yes (5) Polysubstance abuse Is this a current diagnosis for this admission?: Yes (6) Nausea Is this a current diagnosis for this admission?: Yes Plan: 05/12/2018-patient is complaining of nausea and vomitings most likely secondary to diabetic gastroparesis. 05/13/2018-patient is complaining of persistent nausea unable to eat breakfast this morning complaining of abdominal soreness and pain plan to do the KUB today. 05/14/2018-patient is receiving both IV and p.o. Phenergan plan is to discontinue IV Phenergan from today patient is okay with it. (7) Chronic abdominal pain Is this a current diagnosis for this admission?: No Plan: 05/14/2018-patient has history of chronic abdominal pain is most likely secondary to severe gastritis. Plan is to do the CT abdominal pelvis without contrast today. - Time Time Spent with patient: 15-24 minutes Smoking Cessation Education: over 10 minutes Medications reviewed and adjusted accordingly: Yes Anticipated discharge: Home
--- NOTE | 2018-05-14 12:40 | RADIOLOGY REPORT (SQ) ---
EXAM DESCRIPTION: CT ABD/PELVIS NO ORAL OR IV COMPLETED DATE/TIME: 05/14/2018 11:57 am REASON FOR STUDY: abd pain COMPARISON: 05/03/2018 TECHNIQUE: CT scan of the abdomen and pelvis performed without intravenous or oral contrast. Images reviewed with lung, soft tissue, and bone windows. Reconstructed coronal and sagittal MPR images revi ewed. All images stored on PACS. All CT scanners at this facility use dose modulation, iterative reconstruction, and/or weight based d osing when appropriate to reduce radiation dose to as low as reasonably achievable (ALARA). [facility]: Dose Right [facility]: CareDose [facility]: Dose Right [facility]: Teradose 4D [facility]: Smart [facility] RADIATION DOSE: CT Rad equipment meets quality standard of care and radiation dose reduction techniq ues were employed. CTDIvol: 6.2 mGy. DLP: 310 mGy-cm.mGy. LIMITATIONS: Motion. FINDINGS: LOWER CHEST: No significant findings. No nodules or infiltrates. NON-CONTRASTED LIVER, SPLEEN, ADRENALS: Evaluation limited by lack of IV contrast. No identified sign ificant masses. PANCREAS: Calcifications consistent with chronic pancreatitis. GALLBLADDER: No identified stones by CT criteria. No inflammatory changes to suggest cholecystitis. RIGHT KIDNEY AND URETER: No suspicious masses. Assessment limited by lack of IV contrast. No signif icant calcifications. No hydronephrosis or hydroureter. LEFT KIDNEY AND URETER: No suspicious masses. Assessment limited by lack of IV contrast. No signifi cant calcifications. No hydronephrosis or hydroureter. AORTA AND RETROPERITONEUM: No aneurysm. No retroperitoneal masses or adenopathy. BOWEL AND PERITONEAL CAVITY: No obvious masses or inflammatory changes. No free fluid. APPENDIX: Not visualized. PELVIS, BLADDER, AND ABDOMINAL WALL:No abnormal masses. No free fluid. Bladder normal. BONES: Chronic deformity lumbosacral junction. No acute findings. OTHER: No other significant finding. IMPRESSION: Chronic pancreatitis. No acute findings. COMMENT: Quality ID # [id number]: Final reports with documentation of one or more dose reduction techniques (e.g., Automated exposure control, adjustment of the mA and/or kV according to patient size, use of iterative reconstruction technique) TECHNICAL DOCUMENTATION: JOB ID: [id number] [employer]- All Rights Reserved Reading location - IP/workstation name: [email or web address]
[2018-05-14] MEDS ORDERED: SODIUM CHLORIDE NASAL SPRAY 44 ML NASL PRN (14:40)
[2018-05-15] MEDS: OXYCODONE HCL IR 5 MG TABLET PO PRN ×5 (03:00→22:08)
[2018-05-15 04:16] LABS: HEMATOCRIT 22.8 % (37.9-51.0); MEAN CORPUSCULAR HEMOGLOBIN 26.7 pg (27.0-33.4); MEAN CORPUSCULAR HGB CONC 32.2 g/dL (32.0-36.0); MEAN CORPUSCULAR VOLUME 83 fl (80-97); PLATELET COUNT 599 10^3/uL (150-450); RED BLOOD COUNT 2.74 10^6/uL (4.35-5.55); RED CELL DISTRIBUTION WIDTH 20.4 % (11.5-14.0); WHITE BLOOD COUNT 10.1 10^3/uL (4.0-10.5)
[2018-05-15 04:22] LABS: HEMOGLOBIN 7.3 g/dL (13.5-17.0)
[2018-05-15 04:23] LABS: ALANINE AMINOTRANSFERASE 136 U/L (21-72); ALKALINE PHOSPHATASE 173 U/L (38-126); ANION GAP 9 (5-19); ASPARTATE AMINO TRANSFERASE 352 U/L (17-59); BILIRUBIN,DIRECT 0.1 mg/dL (0.0-0.4); BILIRUBIN,TOTAL 0.1 mg/dL (0.2-1.3); BLOOD UREA NITROGEN 50 mg/dL (7-20); CALCIUM 9.1 mg/dL (8.4-10.2); CARBON DIOXIDE 19 mmol/L (22-30); CHLORIDE 110 mmol/L (98-107); GLUCOSE 251 mg/dL (75-110); POTASSIUM 4.6 mmol/L (3.6-5.0); SODIUM 138.2 mmol/L (137-145); TOTAL PROTEIN 6.5 g/dL (6.3-8.2)
[2018-05-15 05:02] LABS: ABSOLUTE LYMPHOCYTES# (MANUAL) 2.6 10^3/uL (0.5-4.7); ABSOLUTE MONOCYTES # (MANUAL) 1.2 10^3/uL (0.1-1.4); ABSOLUTE NEUTROPHILS# (MANUAL) 6.2 10^3/uL (1.7-8.2); BAND NEUTROPHILS % (MANUAL) 1 % (3-5); BASOPHILS % (MANUAL) 0 % (0-2); EOSINOPHILS % (MANUAL) 1 % (0-6); LYMPHOCYTES % (MANUAL) 26 % (13-45); MONOCYTES % (MANUAL) 12 % (3-13); SEGMENTED NEUTROPHILS % (MAN) 60 % (42-78); TOTAL CELLS COUNTED 100
[2018-05-15 05:03] LABS: PLATELET COMMENT INCREASED
[2018-05-15 05:05] LABS: ANISOCYTOSIS 2+; BURR CELLS SLIGHT; HYPOCHROMASIA SLIGHT; OVALOCYTES 1+; POLYCHROMASIA SLIGHT; TARGET CELLS 1+
[2018-05-15 05:06] LABS: TOXIC GRANULATION SLIGHT
[2018-05-15] MEDS: PROMETHAZINE HCL 25 MG TABLET PO PRN ×4 (08:41→22:08)
[2018-05-15] MEDS: INSULIN LISPRO 100 UNIT/ML 3 ML VIAL SUBCUT SCH ×4 (08:43→21:49)
[2018-05-15] MEDS: INSULIN GLARGINE,HUM.REC.ANLOG 1,000 UNIT/10 ML VIAL SUBCUT SCH ×2 (09:17→21:50)
--- NOTE | 2018-05-15 13:23 | PDOC PROGRESS REPORT ---
Subjective Progress Note for:: 05/15/18 Subjective:: 05/10/2018 38-year-old male with history of diabetes mellitus uncontrolled because of noncompliance admitted multiple times complaining of a nausea and abdominal pains this morning requesting p.o. Phenergan because IV Phenergan is burning his skin. He is also requesting increasing pain medications presently is on Percocet 5 325 mg every 6 as needed I increased it to 2 tablets every 6 as needed. Blood sugar dropped to 30 last night he is on 40 units of Lantus twice a day and it was switched to 20 units twice a day today. IV fluids are discontinued. 05/11/2018-patient is still complaining of abdominal pains nausea. Is also complaining of bilateral lower leg swelling. He is getting the pain medication regular basis. His blood sugars are again more than 300s. Plan to increase the Lantus to 30 units twice a day and add insulin sliding scale coverage. 05/13/[id number]-mjwe-old male with history of type 1 diabetes mellitus admitted several times for uncontrolled diabetes mellitus secondary to noncompliance still complains of nausea and vomiting at this morning. He is receiving p.o. Phenergan because IV Phenergan is burning his skin. He is also receiving pain medications Percocet 2 tablets every 6 hours as needed basis. Presently on Lantus 30 units twice daily blood sugar is 119. Is concerned about leg swelling. BNP came back as 1880. He received Lasix 40 mg IV 1 dose yesterday with improvement in the edema we are going to give 1 more dose of Lasix today. 05/13/[id number]-trri-old male with history of type 1 diabetes mellitus noncompliant with his medications also history of polysubstance abuse admitted for high blood sugars. This morning blood sugars are running low. He did not receive his morning insulin because he is nauseated unable to eat breakfast. Complaining of soreness in the abdomen nausea abdominal pains also complaining of pain in the legs plan is to restart oxycodone which was fell off the APR from yesterday. Plan to do the KUB today. 05/14/[id number]-enuv-old male with history of type 1 diabetes mellitus admitted with Abdominal pains nausea vomiting's high blood sugars. His blood sugar this morning is 124. Stable. KUB was done yesterday shows no acute pathology. But the patient is telling me this morning pain for the last 2 days is different compared to the pain he used to have before requesting for CT abdomen. No acute events in the last 24 hours. 05/15/2018-no acute events in the last 24 hours. Patient is afebrile. Hemoglobin dropped to 7.3 the patient received 1 unit of PRBC today. Patient is still co mplaining of epigastric pain presently on oxycodone every 6 as needed he wants to take every 4 as needed. Blood sugars this morning around 149. Reason For Visit: POSSIBLE GI BLEED Physical Exam Vital Signs: Temp Pulse Resp BP Pulse Ox 98.4 F 104 H 18 134/84 H 99 05/15/18 12:55 05/15/18 12:55 05/15/18 12:55 05/15/18 12:55 05/15/18 12:55 Intake & Output 05/14/18 05/15/18 05/16/18 06:59 06:59 06:59 Intake Total 1308 1868 300 Balance 1308 1868 300 Weight 69.8 kg 69.9 kg General appearance: PRESENT: no acute distress Head exam: PRESENT: atraumatic Eye exam: PRESENT: PERRLA Mouth exam: PRESENT: moist, tongue midline Teeth exam: PRESENT: poor dentation Neck exam: ABSENT: carotid bruit, JVD, lymphadenopathy, thyromegaly Respiratory exam: PRESENT: clear to auscultation alfonso. ABSENT: rales, rhonchi, wheezes Cardiovascular exam: PRESENT: RRR. ABSENT: diastolic murmur, rubs, systolic murmur GI/Abdominal exam: PRESENT: normal bowel sounds, soft. ABSENT: distended, guarding, mass, organolmegaly, rebound, tenderness Extremities exam: PRESENT: full ROM. ABSENT: calf tenderness, clubbing, pedal edema Neurological exam: PRESENT: alert, awake, oriented to person, oriented to place, oriented to time, oriented to situation, CN II-XII grossly intact. ABSENT: motor sensory deficit Psychiatric exam: PRESENT: appropriate affect, normal mood. ABSENT: homicidal ideation, suicidal ideation Results Laboratory Results: 05/15/18 03:54 05/15/18 03:54 05/15/18 05/15/18 05/15/18 03:54 03:54 06:55 WBC 10.1 RBC 2.74 L Hgb 7.3 L Hct 22.8 L MCV 83 MCH 26.7 L MCHC 32.2 RDW 20.4 H Plt Count 599 H Seg Neutrophils % Not Reportable Lymphocytes % Not Reportable Monocytes % Not Reportable Eosinophils % Not Reportable Basophils % Not Reportable Absolute Neutrophils Not Reportable Absolute Lymphocytes Not Reportable Absolute Monocytes Not Reportable Absolute Eosinophils Not Reportable Absolute Basophils Not Reportable Sodium 138.2 Potassium 4.6 Chloride 110 H Carbon Dioxide 19 L Anion Gap 9 BUN 50 H Creatinine 0.78 Est GFR ( Amer) > 60 Est GFR (Non-Af Amer) > 60 Glucose 251 H Calcium 9.1 Magnesium 1.9 Total Bilirubin 0.1 L AST 352 H ALT 136 H Alkaline Phosphatase 173 H Total Protein 6.5 Albumin 3.0 L Blood Type A POSITIVE Antibody Screen NEGATIVE 05/13/18 05:32 NT-Pro-B Natriuret Pep 60 Impressions: Chest X-Ray 05/03/18 09:59 IMPRESSION: Focal airspace disease in the right upper lobe consistent with pneumonia. This is new from prior study. KUB X-Ray 05/13/18 00:00 IMPRESSION: NO RADIOGRAPHIC EVIDENCE FOR ACUTE ABDOMINAL DISEASE. Abdomen/Pelvis CT 05/14/18 00:00 IMPRESSION: Chronic pancreatitis. No acute findings. Assessment and Plan - Diagnosis (1) DKA, type 1 Qualifiers: Is this a current diagnosis for this admission?: Yes Plan: 05/10/2018-patient has history of type 1 diabetes mellitus. Presently on Lantus 40 units twice a day and blood sugar dropped to 30 last night. Latest blood sugar in the 190s. Lantus was dose was decreased to 20 units twice a day and plan to continue insulin sliding scale. Dietary consult was requested. Diet complex medications discussed with the patient. 05/11/2018-patient has type 1 diabetes mellitus. Presently on Lantus 20 units twice a day plan is to increase the Lantus to 30 units twice a day continue the insulin sliding scale. Latest blood sugar is 307 this morning. Dietary consult was done during this hospital stay. 05/12/2018-patient has type 1 diabetes mellitus on Lantus 30 units twice a day and insulin sliding scale before meals and at bedtime. Latest blood sugar is 119. To check hemoglobin A1c. Diet compliant with medications discussed with the patient. To start him on Glucerna 1 can p.o. 3 times daily because of the lower leg swelling may be secondary to hypoalbuminemia. 05/13/2018-patient's blood sugar this morning is 31, improved to 189 just a while ago. He is getting hypoglycemic early in the morning. I am going to decrease his evening dose of insulin. hemoGlobin A1c is 11.5. 05/14/2018-patient's latest blood sugar is 124. Presently on Lantus 20 units twice a day and insulin sliding scale plan is to continue the present management. 05/15/2018-patient's latest blood sugar is 149 on Lantus 20 units twice a day. Also on insulin sliding scale before meals and at bedtime blood sugars are relatively stable plan is to continue the present management. (2) Acute on chronic blood loss anemia Is this a current diagnosis for this admission?: Yes Plan: His latest hemoglobin is 8. 05/10/2018-patient's latest hemoglobin is 8.0 plan to recheck CBC today. He has chronic blood loss anemia most likely secondary to severe gastritis. 05/11/2018 patient hemoglobin is 8.0. His chronic anemia most likely secondary to severe gastritis. 05/12/2018-patient's latest hemoglobin is 8.5 today he has a chronic anemia most likely secondary to severe gastritis. 05/13/2018-patient's hemoglobin is 8.5 stable patient has anemia of chronic disease. 05/14/2018-patient's latest hemoglobin is 8.1 his baseline is in between 8-9. Stable. 05/15/2018-patient latest hemoglobin is 7.3 received 1 unit of PRBC plan to check the post transfusion CBC. Drop in hemoglobin may be secondary to upper GI bleed secondary to severe gastritis. (3) Hyperkalemia Is this a current diagnosis for this admission?: Yes (4) Hyponatremia Is this a current diagnosis for this admission?: Yes (5) Polysubstance abuse Is this a current diagnosis for this admission?: Yes (6) Nausea Is this a current diagnosis for this admission?: Yes Plan: 05/12/2018-patient is complaining of nausea and vomitings most likely secondary to diabetic gastroparesis. 05/13/2018-patient is complaining of persistent nausea unable to eat breakfast this morning complaining of abdominal soreness and pain plan to do the KUB today. 05/14/2018-patient is receiving both IV and p.o. Phenergan plan is to discontinue IV Phenergan from today patient is okay with it. 05/15/2018 patient continued to complain of nausea and abdominal discomfort and pain he is taking p.o. Gone today. (7) Chronic abdominal pain Is this a current diagnosis for this admission?: No Plan: 05/14/2018-patient has history of chronic abdominal pain is most likely secondary to severe gastritis. Plan is to do the CT abdominal pelvis without contrast to day. 08/2018-chronic abdominal pain most likely secondary to severe gastritis. - Time Time Spent with patient: 15-24 minutes Smoking Cessation Education: 3 to 10 minutes Medications reviewed and adjusted accordingly: Yes Anticipated discharge: Home
[2018-05-15 20:08] LABS: ABSOLUTE BASOPHILS # (AUTO) 0.2 10^3/uL (0.0-0.2); ABSOLUTE EOSINOPHILS # (AUTO) 0.4 10^3/uL (0.0-0.6); ABSOLUTE LYMPHOCYTES (AUTO) 2.5 10^3/uL (0.5-4.7); ABSOLUTE MONOCYTES (AUTO) 1.2 10^3/uL (0.1-1.4); ABSOLUTE NEUT (AUTO) 8.4 10^3/uL (1.7-8.2); BASOPHILS % (AUTO) 1.5 % (0-2); EOSINOPHILS % (AUTO) 3.5 % (0-6); HEMATOCRIT 29.6 % (37.9-51.0); LYMPHOCYTES % (AUTO) 19.4 % (13-45); MEAN CORPUSCULAR HEMOGLOBIN 27.3 pg (27.0-33.4); MEAN CORPUSCULAR VOLUME 83 fl (80-97); MONOCYTES % (AUTO) 9.5 % (3-13); PLATELET COUNT 649 10^3/uL (150-450); RED BLOOD COUNT 3.57 10^6/uL (4.35-5.55); RED CELL DISTRIBUTION WIDTH 19.2 % (11.5-14.0); SEGMENTED NEUTROPHILS % (AUTO) 66.1 % (42-78); TOTAL CELLS COUNTED % (AUTO) 100 %; WHITE BLOOD COUNT 12.7 10^3/uL (4.0-10.5)
[2018-05-15 20:10] LABS: HEMOGLOBIN 9.8 g/dL (13.5-17.0)
[2018-05-16] MEDS: PROMETHAZINE HCL 25 MG TABLET PO PRN ×3 (02:18→17:27)
[2018-05-16] MEDS: OXYCODONE HCL IR 5 MG TABLET PO PRN ×5 (02:18→20:40)
[2018-05-16] MEDS: INSULIN LISPRO 100 UNIT/ML 3 ML VIAL SUBCUT SCH ×4 (08:00→22:43)
[2018-05-16 10:21] LABS: HEMATOCRIT 28.5 % (37.9-51.0); HEMOGLOBIN 9.4 g/dL (13.5-17.0); MEAN CORPUSCULAR HEMOGLOBIN 27.3 pg (27.0-33.4); MEAN CORPUSCULAR HGB CONC 32.8 g/dL (32.0-36.0); MEAN CORPUSCULAR VOLUME 83 fl (80-97); PLATELET COUNT 593 10^3/uL (150-450); RED BLOOD COUNT 3.42 10^6/uL (4.35-5.55); RED CELL DISTRIBUTION WIDTH 19.3 % (11.5-14.0)
[2018-05-16 10:37] LABS: ALANINE AMINOTRANSFERASE 117 U/L (21-72); ALBUMIN 3.1 g/dL (3.5-5.0); ALKALINE PHOSPHATASE 181 U/L (38-126); ANION GAP 7 (5-19); ASPARTATE AMINO TRANSFERASE 123 U/L (17-59); BILIRUBIN,DIRECT 0.2 mg/dL (0.0-0.4); BILIRUBIN,TOTAL 0.2 mg/dL (0.2-1.3); BLOOD UREA NITROGEN 34 mg/dL (7-20); CALCIUM 9.4 mg/dL (8.4-10.2); CARBON DIOXIDE 22 mmol/L (22-30); CHLORIDE 109 mmol/L (98-107); GLUCOSE 157 mg/dL (75-110); POTASSIUM 4.7 mmol/L (3.6-5.0); SODIUM 137.5 mmol/L (137-145); TOTAL PROTEIN 6.6 g/dL (6.3-8.2)
[2018-05-16 10:48] LABS: ABSOLUTE LYMPHOCYTES# (MANUAL) 2.2 10^3/uL (0.5-4.7); ABSOLUTE MONOCYTES # (MANUAL) 0.5 10^3/uL (0.1-1.4); BASOPHILS % (MANUAL) 0 % (0-2); EOSINOPHILS % (MANUAL) 3 % (0-6); LYMPHOCYTES % (MANUAL) 22 % (13-45); MONOCYTES % (MANUAL) 5 % (3-13); NUCLEATED RED BLOOD CELLS 1 /100 WBC (0); SEGMENTED NEUTROPHILS % (MAN) 70 % (42-78); TOTAL CELLS COUNTED 100
[2018-05-16 10:49] LABS: ANISOCYTOSIS 2+; HYPOCHROMASIA 1+; OVALOCYTES SLIGHT; PLATELET COMMENT INCREASED; POIKILOCYTOSIS 1+; POLYCHROMASIA SLIGHT; TARGET CELLS SLIGHT; TEAR DROP CELLS SLIGHT
[2018-05-16] MEDS: INSULIN GLARGINE,HUM.REC.ANLOG 1,000 UNIT/10 ML VIAL SUBCUT SCH ×2 (11:05→22:43)
--- NOTE | 2018-05-16 14:10 | PDOC PROGRESS REPORT ---
Subjective Progress Note for:: 05/16/18 Subjective:: 05/10/2018 38-year-old male with history of diabetes mellitus uncontrolled because of noncompliance admitted multiple times complaining of a nausea and abdominal pains this morning requesting p.o. Phenergan because IV Phenergan is burning his skin. He is also requesting increasing pain medications presently is on Percocet 5 325 mg every 6 as needed I increased it to 2 tablets every 6 as needed. Blood sugar dropped to 30 last night he is on 40 units of Lantus twice a day and it was switched to 20 units twice a day today. IV fluids are discontinued. 05/11/2018-patient is still complaining of abdominal pains nausea. Is also complaining of bilateral lower leg swelling. He is getting the pain medication regular basis. His blood sugars are again more than 300s. Plan to increase the Lantus to 30 units twice a day and add insulin sliding scale coverage. 05/13/[id number]-zfjz-old male with history of type 1 diabetes mellitus admitted several times for uncontrolled diabetes mellitus secondary to noncompliance still complains of nausea and vomiting at this morning. He is receiving p.o. Phenergan because IV Phenergan is burning his skin. He is also receiving pain medications Percocet 2 tablets every 6 hours as needed basis. Presently on Lantus 30 units twice daily blood sugar is 119. Is concerned about leg swelling. BNP came back as 1880. He received Lasix 40 mg IV 1 dose yesterday with improvement in the edema we are going to give 1 more dose of Lasix today. 05/13/[id number]-qkns-old male with history of type 1 diabetes mellitus noncompliant with his medications also history of polysubstance abuse admitted for high blood sugars. This morning blood sugars are running low. He did not receive his morning insulin because he is nauseated unable to eat breakfast. Complaining of soreness in the abdomen nausea abdominal pains also complaining of pain in the legs plan is to restart oxycodone which was fell off the APR from yesterday. Plan to do the KUB today. 05/14/[id number]-dgvz-old male with history of type 1 diabetes mellitus admitted with Abdominal pains nausea vomiting's high blood sugars. His blood sugar this morning is 124. Stable. KUB was done yesterday shows no acute pathology. But the patient is telling me this morning pain for the last 2 days is different compared to the pain he used to have before requesting for CT abdomen. No acute events in the last 24 hours. 05/15/2018-no acute events in the last 24 hours. Patient is afebrile. Hemoglobin dropped to 7.3 the patient received 1 unit of PRBC today. Patient is still co mplaining of epigastric pain presently on oxycodone every 6 as needed he wants to take every 4 as needed. Blood sugars this morning around 149. 05/16/2018-no acute events in last 24 hours. Patient is afebrile. Complaining of continuous abdominal pains and nausea. CAT scan of the abdomen pelvis was done shows chronic pancreatitis. Again I discussed the plan of care and possible discharge today. Patient states he is too sick to go home today. Reason For Visit: POSSIBLE GI BLEED Physical Exam Vital Signs: Temp Pulse Resp BP Pulse Ox 97.6 F 99 16 111/61 99 05/16/18 07:32 05/16/18 07:32 05/16/18 07:32 05/16/18 07:32 05/16/18 07:32 Intake & Output 05/15/18 05/16/18 05/17/18 06:59 06:59 06:59 Intake Total 1868 1702 Output Total 1 Balance 1868 1701 Weight 69.9 kg 69.9 kg General appearance: PRESENT: mild distress Head exam: PRESENT: atraumatic Eye exam: PRESENT: PERRLA Neck exam: ABSENT: carotid bruit, JVD, lymphadenopathy, thyromegaly Respiratory exam: PRESENT: clear to auscultation alfonso. ABSENT: rales, rhonchi, wheezes Cardiovascular exam: PRESENT: RRR. ABSENT: diastolic murmur, rubs, systolic murmur GI/Abdominal exam: PRESENT: normal bowel sounds, soft. ABSENT: distended, guarding, mass, organolmegaly, rebound, tenderness Extremities exam: PRESENT: full ROM. ABSENT: calf tenderness, clubbing, pedal edema Neurological exam: PRESENT: alert, awake, oriented to person, oriented to place, oriented to time, oriented to situation, CN II-XII grossly intact. ABSENT: motor sensory deficit Psychiatric exam: PRESENT: appropriate affect, normal mood. ABSENT: homicidal ideation, suicidal ideation Results Laboratory Results: 05/16/18 09:26 05/16/18 09:26 05/15/18 05/16/18 05/16/18 19:35 09:26 09:26 WBC 12.7 H 10.0 RBC 3.57 L 3.42 L Hgb 9.8 L D 9.4 L Hct 29.6 L 28.5 L MCV 83 83 MCH 27.3 27.3 MCHC 33.0 32.8 RDW 19.2 H 19.3 H Plt Count 649 H 593 H Seg Neutrophils % 66.1 Not Reportable Lymphocytes % 19.4 Not Reportable Monocytes % 9.5 Not Reportable Eosinophils % 3.5 Not Reportable Basophils % 1.5 Not Reportable Absolute Neutrophils 8.4 H Not Reportable Absolute Lymphocytes 2.5 Not Reportable Absolute Monocytes 1.2 Not Reportable Absolute Eosinophils 0.4 Not Reportable Absolute Basophils 0.2 Not Reportable Sodium 137.5 Potassium 4.7 Chloride 109 H Carbon Dioxide 22 Anion Gap 7 BUN 34 H Creatinine 0.71 Est GFR ( Amer) > 60 Est GFR (Non-Af Amer) > 60 Glucose 157 H Calcium 9.4 Magnesium 1.9 Total Bilirubin 0.2 AST 123 H ALT 117 H Alkaline Phosphatase 181 H Total Protein 6.6 Albumin 3.1 L 05/13/18 05:32 NT-Pro-B Natriuret Pep 60 Impressions: Chest X-Ray 05/03/18 09:59 IMPRESSION: Focal airspace disease in the right upper lobe consistent with pneumonia. This is new from prior study. KUB X-Ray 05/13/18 00:00 IMPRESSION: NO RADIOGRAPHIC EVIDENCE FOR ACUTE ABDOMINAL DISEASE. Abdomen/Pelvis CT 05/14/18 00:00 IMPRESSION: Chronic pancreatitis. No acute findings. Assessment and Plan - Diagnosis (1) DKA, type 1 Qualifiers: Is this a current diagnosis for this admission?: Yes Plan: 05/10/2018-patient has history of type 1 diabetes mellitus. Presently on Lantus 40 units twice a day and blood sugar dropped to 30 last night. Latest blood sugar in the 190s. Lantus was dose was decreased to 20 units twice a day and plan to continue insulin sliding scale. Dietary consult was requested. Diet complex medications discussed with the patient. 05/11/2018-patient has type 1 diabetes mellitus. Presently on Lantus 20 units twice a day plan is to increase the Lantus to 30 units twice a day continue the insulin sliding scale. Latest blood sugar is 307 this morning. Dietary consult was done during this hospital stay. 05/12/2018-patient has type 1 diabetes mellitus on Lantus 30 units twice a day and insulin sliding scale before meals and at bedtime. Latest blood sugar is 119. To check hemoglobin A1c. Diet compliant with medications discussed with the patient. To start him on Glucerna 1 can p.o. 3 times daily because of the lower leg swelling may be secondary to hypoalbuminemia. 05/13/2018-patient's blood sugar this morning is 31, improved to 189 just a while ago. He is getting hypoglycemic early in the morning. I am going to decrease his evening dose of insulin. hemoGlobin A1c is 11.5. 05/14/2018-patient's latest blood sugar is 124. Presently on Lantus 20 units twice a day and insulin sliding scale plan is to continue the present management. 05/15/2018-patient's latest blood sugar is 149 on Lantus 20 units twice a day. Also on insulin sliding scale before meals and at bedtime blood sugars are relatively stable plan is to continue the present management. 05/16/2018-patient's latest blood sugar is 229. He is eating the lunch brought by family members. I talked to him about complaints of the diet. Patient's hemoglobin A1c is 11.5. Presently on Lantus 20 units twice a day and also insulin sliding scale before meals and at bedtime. (2) Acute on chronic blood loss anemia Is this a current diagnosis for this admission?: Yes Plan: His latest hemoglobin is 8. 05/10/2018-patient's latest hemoglobin is 8.0 plan to recheck CBC today. He has chronic blood loss anemia most likely secondary to severe gastritis. 05/11/2018 patient hemoglobin is 8.0. His chronic anemia most likely secondary to severe gastritis. 05/12/2018-patient's latest hemoglobin is 8.5 today he has a chronic anemia most likely secondary to severe gastritis. 05/13/2018-patient's hemoglobin is 8.5 stable patient has anemia of chronic disease. 05/14/2018-patient's latest hemoglobin is 8.1 his baseline is in between 8-9. Stable. 05/15/2018-patient latest hemoglobin is 7.3 received 1 unit of PRBC plan to check the post transfusion CBC. Drop in hemoglobin may be secondary to upper GI bleed secondary to severe gastritis. 05/16/2018-patient hemoglobin today is 1.4. Stable. He received 1 unit of PRBC for a drop in hemoglobin to 7.3 yesterday. Chronic anemia most likely secondary to severe gastritis. (3) Hyperkalemia Is this a current diagnosis for this admission?: Yes (4) Hyponatremia Is this a current diagnosis for this admission?: Yes (5) Polysubstance abuse Is this a current diagnosis for this admission?: Yes (6) Nausea Is this a current diagnosis for this admission?: Yes Plan: 05/12/2018-patient is complaining of nausea and vomitings most likely secondary to diabetic gastroparesis. 05/13/2018-patient is complaining of persistent nausea unable to eat breakfast this morning complaining of abdominal soreness and pain plan to do the KUB today. 05/14/2018-patient is receiving both IV and p.o. Phenergan plan is to discontinue IV Phenergan from today patient is okay with it. 05/15/2018 patient continued to complain of nausea and abdominal discomfort and pain he is taking p.o. phenergan today. 05/16/2018-patient is continued to complain of nausea. He is receiving Phenergan 25 mg p.o. every 6 as needed. (7) Chronic abdominal pain Is this a current diagnosis for this admission?: No Plan: 05/14/2018-patient has history of chronic abdominal pain is most likely secondary to severe gastritis. Plan is to do the CT abdominal pelvis without contrast today. 05/15/2018-chronic abdominal pain most likely secondary to severe gastritis. 05/16/2018 patient is continued to complain of abdominal pain especially in the epigastric region. He is receiving oxycodone every 4 as needed. Plan is to continue the present management. - Time Time Spent with patient: 15-24 minutes Smoking Cessation Education: over 10 minutes Medications reviewed and adjusted accordingly: Yes Anticipated discharge: Home
[2018-05-16] MEDS ORDERED: CEFTRIAXONE 1 GM/D5W RTU 1 GM/50 ML RTUPB IV ONE (23:59)
[2018-05-17] MEDS ORDERED: ACETAMINOPHEN 325 MG TABLET PO ONE (00:10)
[2018-05-17] MEDS ORDERED: ACETAMINOPHEN 325 MG TABLET PO PRN (00:13)
[2018-05-17] MEDS ORDERED: CEFTRIAXONE 1 GM/D5W RTU 1 GM/50 ML RTUPB IV ONE (00:17)
[2018-05-17] MEDS: PROMETHAZINE HCL 25 MG TABLET PO PRN ×3 (00:35→22:26)
[2018-05-17] MEDS: OXYCODONE HCL IR 5 MG TABLET PO PRN ×5 (01:50→22:26)
[2018-05-17 02:10] LABS: APPEARANCE,URINE CLEAR; BILIRUBIN,URINE NEGATIVE (NEGATIVE); COLOR,URINE STRAW; GLUCOSE, URINE >=500 mg/dL (NEGATIVE); KETONES,URINE NEGATIVE (NEGATIVE); LEUKOCYTE ESTERASE,URINE NEGATIVE (NEGATIVE); NITRITE,URINE NEGATIVE (NEGATIVE); PROTEIN,URINE 30 mg/dL (NEGATIVE); URINE SPECIFIC GRAVITY 1.013; UROBILINOGEN,URINE NEGATIVE mg/dL (<2.0)
[2018-05-17] MEDS: INSULIN LISPRO 100 UNIT/ML 3 ML VIAL SUBCUT SCH ×4 (09:25→22:26)
[2018-05-17] MEDS: HUM INSULIN NPH/REG INSULIN HM 100 UNIT/1 ML 3 ML SUBCUT SCH ×2 (09:31→17:49)
--- NOTE | 2018-05-17 17:20 | PDOC PROGRESS REPORT ---
Subjective Progress Note for:: 05/17/18 Subjective:: This is a 38 year old male with a PMH of uncontrolled IDDM, multiple prior DKAs, poor compliance, alcohol abuse, tobacco dependence and polysubstance abuse who presented with nausea, vomiting and abdominal pain for the past 2 days. He was recently discharged for DKA and was discharged on Lantus. He was admitted for severe DKA. He also reported episodes of hematemesis and melena at home. He went for an EGD on 05/05 which revealed erosive gastritis, esophagitis and duodenitis. He has been complaining of abdominal pain. CT of the abdomen/pelvis shows changes consistent with chronic pancreatitis. Patient had fever overnight and panculutres were ordered by director of marketing and promotions. This morning, he was asleep upon encounter. He complains of abdominal pain when he woke up. Explained to patient his abdominal pain may be chronic due to the chronic pancreatitis. Counseled in length about avoiding alcohol and dietary restriction. Currently on Lantus. This will be switched to 70/30 as patient does not have insurance and has relayed multiple times he cannot afford Lantus. En couraged oral intake. Reason For Visit: POSSIBLE GI BLEED Physical Exam Vital Signs: Temp Pulse Resp BP Pulse Ox 98.8 F 102 H 18 116/69 100 05/17/18 15:26 05/17/18 15:26 05/17/18 15:26 05/17/18 15:26 05/17/18 15:26 Intake & Output 05/16/18 05/17/18 05/18/18 06:59 06:59 06:59 Intake Total 1702 1308 Output Total 1 Balance 1701 1308 Weight 154 lb 1.65 oz 154 lb 1.65 oz General appearance: PRESENT: no acute distress, well-developed, well-nourished Head exam: PRESENT: atraumatic, normocephalic Eye exam: PRESENT: conjunctiva pink, EOMI, PERRLA. ABSENT: scleral icterus Ear exam: PRESENT: normal external ear exam Mouth exam: PRESENT: moist, tongue midline Neck exam: ABSENT: carotid bruit, JVD, lymphadenopathy, thyromegaly Respiratory exam: PRESENT: clear to auscultation alfonso. ABSENT: rales, rhonchi, wheezes Cardiovascular exam: PRESENT: RRR. ABSENT: diastolic murmur, rubs, systolic murmur Pulses: PRESENT: normal dorsalis pedis pul GI/Abdominal exam: PRESENT: normal bowel sounds, soft. ABSENT: distended, guarding, mass, organolmegaly, rebound, tenderness Rectal exam: PRESENT: deferred Neurological exam: PRESENT: alert, awake, oriented to person, oriented to place, oriented to time, oriented to situation, CN II-XII grossly intact. ABSENT: motor sensory deficit Results Laboratory Results: 05/16/18 09:26 05/16/18 09:26 05/17/18 01:44 Urine Color STRAW Urine Appearance CLEAR Urine pH 5.0 Ur Specific [place] 1.013 Urine Protein 30 H Urine Glucose (UA) >=500 H Urine Ketones NEGATIVE Urine Blood SMALL H Urine Nitrite NEGATIVE Ur Leukocyte Esterase NEGATIVE Urine WBC (Auto) 1 Urine RBC (Auto) 0 05/13/18 05:32 NT-Pro-B Natriuret Pep 60 Impressions: Chest X-Ray 05/03/18 09:59 IMPRESSION: Focal airspace disease in the right upper lobe consistent with pneumonia. This is new from prior study. KUB X-Ray 05/13/18 00:00 IMPRESSION: NO RADIOGRAPHIC EVIDENCE FOR ACUTE ABDOMINAL DISEASE. Abdomen/Pelvis CT 05/14/18 00:00 IMPRESSION: Chronic pancreatitis. No acute findings. Assessment and Plan - Diagnosis (1) DKA (diabetic ketoacidoses) Is this a current diagnosis for this admission?: Yes Plan: Resolved. Currently on Lantus. This will be switched to 70/30 as patient does not have insurance and has relayed multiple times he cannot afford Lantus. (2) Gastrointestinal bleed Is this a current diagnosis for this admission?: Yes Plan: S/P EGD which showed erosive gastritis, esophagitis and duodenitis. He got 2 units of pRBC in total. Hemoglobin has been stable so far with clinical signs of bleeding. Continue PPI. (3) Hyperkalemia Is this a current diagnosis for this admission?: Yes Plan: Resolved. (4) Acute kidney injury Is this a current diagnosis for this admission?: Yes Plan: Pre renal. Continue IV fluids. Resolved. (5) Hyponatremia Is this a current diagnosis for this admission?: Yes Plan: Resolved. (6) Acute on chronic anemia Is this a current diagnosis for this admission?: Yes Plan: Possible GI bleed. He got 2 units of pRBC in total. Hemoglobin has been stable so far with clinical signs of bleeding. - Time Time Spent with patient: 25-34 minutes
[2018-05-17] MEDS ORDERED: CEFTRIAXONE 1 GM/D5W RTU 1 GM/50 ML RTUPB IV SCH (22:00)
[2018-05-18] MEDS: PROMETHAZINE HCL 25 MG TABLET PO PRN ×4 (02:29→14:57)
[2018-05-18] MEDS: OXYCODONE HCL IR 5 MG TABLET PO PRN ×4 (02:29→14:57)
[2018-05-18] MEDS: HUM INSULIN NPH/REG INSULIN HM 100 UNIT/1 ML 3 ML SUBCUT SCH ×3 (08:51→16:58)
[2018-05-18] MEDS: INSULIN LISPRO 100 UNIT/ML 3 ML VIAL SUBCUT SCH ×3 (08:51→16:57)
[2018-05-18] MEDS: GABAPENTIN 100 MG CAPSULE PO SCH ×2 (10:53→14:56)
--- NOTE | 2018-05-18 18:22 | PDOC DISCHARGE SUMMARY ---
General - Admit/Disc Date/PCP Admission Date/Primary Care Provider: 05/03/18 09:37 Discharge Date: 05/18/18 - Discharge Diagnosis (1) DKA (diabetic ketoacidoses) Is this a current diagnosis for this admission?: Yes (2) Gastrointestinal bleed Is this a current diagnosis for this admission?: Yes (3) Hyperkalemia Is this a current diagnosis for this admission?: Yes (4) Acute kidney injury Is this a current diagnosis for this admission?: Yes (5) Hyponatremia Is this a current diagnosis for this admission?: Yes (6) Acute on chronic anemia Is this a current diagnosis for this admission?: Yes - Additional Information Resuscitation Status: Full Code Prescriptions: Gabapentin [Neurontin 100 mg Capsule] 200 mg PO Q8 PRN #60 capsule PRN Reason: Hum Insulin NPH/Reg Insulin Hm [Insulin 70-30 (NPH/Reg) 100 unit/mL] 35 unit SUBCUT BIDACBS #2 unit Pantoprazole Sodium [Protonix [address] Tablet] 40 mg PO QAM #30 tablet. Home Medications: Insulin Aspart [Novolog Flexpen] See Protocol SUBCUT MEALS 04/20/18 Gabapentin [Neurontin 100 mg Capsule] 200 mg PO Q8 PRN #60 capsule 05/18/18 Hum Insulin NPH/Reg Insulin Hm [Insulin 70-30 (NPH/Reg) 100 unit/mL] 35 unit SUBCUT BIDACBS #2 unit 05/18/18 Pantoprazole Sodium [Protonix [address] Tablet] 40 mg PO QAM #30 tablet. 05/18/18 History of Present Illness History of Present Illness: CHESTER MCKEON is a 38 year old male with a PMH of uncontrolled IDDM, multiple prior DKAs, poor compliance, alcohol abuse, tobacco dependence and polysubstance abuse who presented with nausea, vomiting and abdominal pain for the past 2 days. He was recently discharged a week ago for DKA and was discharged on Lantus. Patient says he does not have insurance and was not able to obtain insulin supplies. He had multiple nonbilious vomiting some of which were bloody. He also reports of associated black stools (>5x). He has crampy generalized abdominal pain. In the ER, he was initially lethargic. He was found to be in severe DKA. He has received 3L of fluid bolus, was started on insulin and bicarbonate drip. Upon encounter, he was more awake and alert and is now oriented x 3. Hospital Course Hospital Course: This is a 38 year old male with a PMH of uncontrolled IDDM, multiple prior DKAs, poor compliance, alcohol abuse, tobacco dependence and polysubstance abuse who presented with nausea, vomiting and abdominal pain for the past 2 days. He was recently discharged for DKA and was discharged on Lantus. He was admitted for severe DKA. He also reported episodes of hematemesis and melena at home. He went for an EGD on 05/05 which revealed erosive gastritis, esophagitis and duo denitis. He was also started on PPI. He has been complaining of abdominal pain. CT of the abdomen/pelvis shows changes consistent with chronic pancreatitis. He has been complaining that he always gets prescribed Lantus and that he is not able to obtain this type of insulin hence he was switched to 70/30. His abdominal pain did improve and he was able to tolerate his diet well. He will be discharged on Protonix, his Lantus will also be switched to 70/30. Physical Exam Vital Signs: Temp Pulse Resp BP Pulse Ox 98.1 F 99 19 109/63 99 05/18/18 16:01 05/18/18 16:01 05/18/18 16:01 05/18/18 16:01 05/18/18 16:01 Intake & Output 05/17/18 05/18/18 05/19/18 06:59 06:59 06:59 Intake Total 1308 1650 803 Balance 1308 1650 803 Weight 154 lb 1.65 oz 151 lb 0.266 oz General appearance: PRESENT: no acute distress, well-developed, well-nourished Head exam: PRESENT: atraumatic, normocephalic Eye exam: PRESENT: conjunctiva pink, EOMI, PERRLA. ABSENT: scleral icterus Ear exam: PRESENT: normal external ear exam Mouth exam: PRESENT: moist, tongue midline Neck exam: ABSENT: carotid bruit, JVD, lymphadenopathy, thyromegaly Respiratory exam: PRESENT: clear to auscultation alfonso. ABSENT: rales, rhonchi, wheezes Cardiovascular exam: PRESENT: RRR. ABSENT: diastolic murmur, rubs, systolic murmur Pulses: PRESENT: normal dorsalis pedis pul GI/Abdominal exam: PRESENT: normal bowel sounds, soft. ABSENT: distended, guarding, mass, organolmegaly, rebound, tenderness Rectal exam: PRESENT: deferred Neurological exam: PRESENT: alert, awake, oriented to person, oriented to place, oriented to time, oriented to situation, CN II-XII grossly intact. ABSENT: motor sensory deficit Results Laboratory Results: 05/16/18 09:26 05/16/18 09:26 05/13/18 05:32 NT-Pro-B Natriuret Pep 60 Impressions: Chest X-Ray 05/03/18 09:59 IMPRESSION: Focal airspace disease in the right upper lobe consistent with pneumonia. This is new from prior study. KUB X-Ray 05/13/18 00:00 IMPRESSION: NO RADIOGRAPHIC EVIDENCE FOR ACUTE ABDOMINAL DISEASE. Abdomen/Pelvis CT 05/14/18 00:00 IMPRESSION: Chronic pancreatitis. No acute findings. Qualifiers - * PATIENT BEING DISCHARGED WITH ANY OF THE FOLLOWING DIAGNOSIS: No
[2018-05-18 19:09] VITALS: BP 113/67
== END 2018-05-18 20:45 | disposition home or self-care (01) | DRG 637 ==
LOC: ER 06:30 → EH 09:37 → ICU 12:18 → 5 05-05 17:34
PROVIDERS: ADMIT Internal Medicine; ATTEND Internal Medicine
PROC: 0DD68ZX Extraction of Stomach, Via Natural or Artificial Opening Endoscopic, Diagnostic (ICD-10-PCS; 2018-05-05)
PROC: 0DD58ZX Extraction of Esophagus, Via Natural or Artificial Opening Endoscopic, Diagnostic (ICD-10-PCS; principal; 2018-05-05 11:00)
PROC: 30233N1 Transfusion of Nonautologous Red Blood Cells into Peripheral Vein, Percutaneous Approach (ICD-10-PCS; 2018-05-15)
DX: E10.10 Type 1 diabetes mellitus with ketoacidosis without coma (principal); K29.01 Acute gastritis with bleeding; K86.1 Other chronic pancreatitis; N17.9 Acute kidney failure, unspecified; D62 Acute posthemorrhagic anemia; K20.9 Esophagitis, unspecified; K29.80 Duodenitis without bleeding; D64.9 Anemia, unspecified; E87.5 Hyperkalemia; E78.5 Hyperlipidemia, unspecified; I10 Essential (primary) hypertension; K21.9 Gastro-esophageal reflux disease without esophagitis; F10.10 Alcohol abuse, uncomplicated; F19.10 Other psychoactive substance abuse, uncomplicated; F17.210 Nicotine dependence, cigarettes, uncomplicated; Y90.0 Blood alcohol level of less than 20 mg/100 ml; Z91.14 Patient's other noncompliance with medication regimen
CPT/HCPCS: 36415; 36430; 43239; 71045; 74018; 74176; 80048; 80053; 80307; 81001; 82272; 82803; 82962; 83036; 83605; 83690; 83735; 83880; 83930; 84132; 85025; 85027; 85610; 85730; 86850; 86900; 86901; 86920; 87040; 87086; 88305; 88312; 88342; 93005; 93010; 93306; 96360; 99291; J0171; J0696; J1200; J1610; J1815; J1940; J1956; J2250; J2270; J2310; J2405; J2550; J3010; J3480; J3490; J7030; J7060; J7120; P9016; S0164

== ENCOUNTER 2018-05-18 23:04 | Emergency (ER) | payer SELFPAY ==
[2018-05-19 00:29] LABS: ABSOLUTE BASOPHILS # (AUTO) 0.1 10^3/uL (0.0-0.2); ABSOLUTE EOSINOPHILS # (AUTO) 0.3 10^3/uL (0.0-0.6); ABSOLUTE MONOCYTES (AUTO) 1.2 10^3/uL (0.1-1.4); BASOPHILS % (AUTO) 0.9 % (0-2); EOSINOPHILS % (AUTO) 3.1 % (0-6); HEMOGLOBIN 10.1 g/dL (13.5-17.0); LYMPHOCYTES % (AUTO) 21.3 % (13-45); MEAN CORPUSCULAR HEMOGLOBIN 27.7 pg (27.0-33.4); MEAN CORPUSCULAR HGB CONC 32.5 g/dL (32.0-36.0); MEAN CORPUSCULAR VOLUME 85 fl (80-97); MONOCYTES % (AUTO) 12.2 % (3-13); PLATELET COUNT 537 10^3/uL (150-450); RED BLOOD COUNT 3.64 10^6/uL (4.35-5.55); RED CELL DISTRIBUTION WIDTH 19.3 % (11.5-14.0); SEGMENTED NEUTROPHILS % (AUTO) 62.5 % (42-78); TOTAL CELLS COUNTED % (AUTO) 100 %; WHITE BLOOD COUNT 9.6 10^3/uL (4.0-10.5)
--- NOTE | 2018-05-19 00:32 | ER Document Report ---
ED GI/ - General Chief Complaint: Abdominal Pain Stated Complaint: STOMACH/CHEST PAIN,BLURRY VISION,VOMITING,DIARRHEA Time Seen by Provider: 05/19/18 00:32 Mode of Arrival: Ambulatory Information source: Patient Notes: HISTORY OF PRESENT ILLNESS: Patient is a 38-year-old male with a past medical history of poorly controlled insulin-dependent diabetes, chronic alcoholism with pancreatitis, and chronic substance abuse who presents with recurrent abdominal pain and hyperglycemia 1 day after the patient was discharged from the hospital for recurrent DKA. Patient does report several episodes of nonbloody and nonbilious. Location: Abdomen Onset: Today Alleviation: None Provocation: Unknown Quality: Aching, cramping Radiation: None Severity: Moderate to severe Timing: Constant History of abdominal surgery: Yes Associated symptoms: No fevers or chills, no cough congestion, no diarrhea, no hematemesis or hematochezia Last bowel movement: Today and normal REVIEW OF SYSTEMS: CONSTITUTIONAL : Denies fever or chills, no sweats. Denies recent illness. EENT: Denies eye, ear, throat, or mouth pain or symptoms. Denies nasal or sinus congestion. CARDIOVASCULAR: Denies chest pain. Denies swelling of the legs. RESPIRATORY: Denies cough, cold, or chest congestion. Denies shortness of breath or difficulty breathing. Denies wheezing. GASTROINTESTINAL: Positive for abdominal pain. Positive for vomiting but no diarrhea. Denies constipation. GENITOURINARY: Denies difficulty urinating, painful urination, burning, frequency, or blood in urine. FEMALE GENITOURINARY: Denies vaginal bleeding, abnormal or irregular periods. MUSCULOSKELETAL: Denies neck or back pain or joint pain or swelling. SKIN: Denies rash or skin lesions. HEMATOLOGIC : Denies easy bruising or bleeding. LYMPHATIC: Denies swollen, enlarged glands. NEUROLOGICAL: Denies altered mental status or loss of consciousness. Denies headache. Denies weakness or paralysis or loss of use of either side. Denies problems with gait or speech. Denies sensory or motor loss. PSYCHIATRIC: Denies anxiety or stress or depression. All other systems reviewed and negative. PHYSICAL EXAMINATION: GENERAL: Well-appearing, well-nourished and in no acute distress. HEAD: Atraumatic, normocephalic. No scalp deformity, depression, or crepitance. EYES: Pupils are 3 mm and equal/round/reactive to light, extraocular movements intact, sclera anicteric, conjunctiva are normal. ENT: Nares patent bilaterally, oropharynx. Moist mucous membranes. No tonsil hypertrophy. NECK: Normal range of motion, supple without lymphadenopathy. LUNGS: Breath sounds present, equal, and clear to auscultation bilaterally. No wheezes, rales, or rhonchi. HEART: Regular rate and rhythm without murmurs, rubs, or gallops. 2+ peripheral pulses. Normal capillary refill. ABDOMEN: Soft without distention, moderate diffuse epigastric tenderness, no peritoneal signs. Normoactive bowel sounds. No guarding, no rebound. No masses appreciated. BACK: Normal contour, no midline tenderness. Rectal exam deferred. GENITAL/PELVIC: Deferred. EXTREMITIES: Normal range of motion, no pitting or edema. No cyanosis. NEUROLOGICAL: No focal neurological deficits. Moves all extremities spontaneously and on command. PSYCH: Normal mood, normal affect. No suicidal thoughts/ideations. No homicidal thoughts/ideations. No hallucinations. SKIN: Warm, dry, normal turgor, no rashes or lesions noted. ASSESSMENT AND PLAN: This patient is a 38-year-old male who presents with recurrent abdominal pain most likely represents acute on chronic pancreatitis versus DKA versus hyperglycemia versus gastritis versus gastroparesis. 1. Will obtain labs, urine, VBG, beta hydroxybutyrate, give IV fluids with insulin, and reassess. 2. Will plan on discharge if patient is symptomatically improved and is stable. TRAVEL OUTSIDE OF THE [place] IN LAST 30 DAYS: No - Related Data Allergies/Adverse Reactions: ondansetron [From Zofran (as hydrochloride)] Allergy (Verified 05/18/18 23:37) Past Medical History - General Information source: Patient - Social History Smoking Status: Current Some Day Smoker Chew tobacco use (# tins/day): No Frequency of alcohol use: Occasional Drug Abuse: Cocaine Lives with: Alone Family History: DM, Hyperlipidemia, Hypertension Patient has suicidal ideation: No Patient has homicidal ideation: No - Past Medical History Cardiac Medical History: Reports: Hx Hypercholesterolemia, Hx Hypertension - Taken off medication for same. Denies: Hx Atrial Fibrillation, Hx Congestive Heart Failure, Hx Coronary Artery Disease, Hx Heart Attack, Hx Pulmonary Embolism Pulmonary Medical History: Reports: None Denies: Hx Asthma, Hx COPD, Hx Sleep Apnea EENT Medical History: Reports: None Neurological Medical History: Reports: None. Denies: Hx Migraine, Hx Seizures Endocrine Medical History: Reports: Hx Diabetes Mellitus Type 1, Hx Diabetes Mellitus Type 2. Denies: Hx Hyperthyroidism, Hx Hypothyroidism Renal/ Medical History: Reports: None. Denies: Hx End Stage Renal Disease, Hx Peritoneal Dialysis Malignancy Medical History: Reports None GI Medical History: Reports: Hx Gastroesophageal Reflux Disease, Hx Pancreatitis, Hx Ulcer. Denies: Hx Cirrhosis, Hx Hepatitis Musculoskeletal Medical History: Reports None, Denies Hx Arthritis, Denies Hx Fibromyalgia Skin Medical History: Reports None, Denies Hx Eczema, Denies Hx Psoriasis Psychiatric Medical History: Reports: Hx Depression Traumatic Medical History: Reports: None Infectious Medical History: Reports: Hx MRSA. 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 Denies: Hx Appendectomy, Hx Cholecystectomy, Hx Tonsillectomy - Immunizations Hx Diphtheria, Pertussis, Tetanus Vaccination: Yes Hx Pneumococcal Vaccination: 11/09/11 Physical Exam - Vital signs Vitals: Temp Pulse Resp BP Pulse Ox 97.7 F 103 H 20 112/74 99 05/18/18 23:36 05/18/18 23:36 05/18/18 23:36 05/18/18 23:36 05/18/18 23:36 Course - Re-evaluation Re-evalutation: 05/19/18 03:33 Patient has hyperglycemia but no evidence of acute diabetic ketoacidosis as he has a normal anion gap. He does have a mildly decreased bicarbonate level, because of this he was given IV normal saline as well as lactated Ringer's with IV insulin. He is now pain controlled and is much improved. He will be discharged home with return precautions and follow-up. Patient voices both understanding and agreeing with the plan. - Vital Signs Vital signs: Temp Pulse Resp BP Pulse Ox 97.7 F 103 H 20 112/74 99 05/18/18 23:36 05/18/18 23:36 05/18/18 23:36 05/18/18 23:36 05/18/18 23:36 - Laboratory Result Diagrams: 05/19/18 00:19 05/19/18 00:19 Laboratory results interpreted by me: 05/19/18 05/19/1819 00:19 00:19 01:05 RBC 3.64 L Hgb 10.1 L Hct 31.0 L RDW 19.3 H Plt Count 537 H Sodium 135.6 L Potassium 5.2 H Chloride 110 H Carbon Dioxide 16 L BUN 41 H Glucose 334 H AST 152 H ALT 206 H Alkaline Phosphatase 276 H Lipase 637.5 H Urine Protein 30 H Urine Glucose (UA) >=500 H Urine Blood SMALL H Discharge - Discharge Clinical Impression: Hyperglycemia Chronic pancreatitis Qualifiers: Pancreatitis type: unspecified pancreatitis type Qualified Code(s): K86.1 - Other chronic pancreatitis Condition: Good Disposition: HOME, SELF-CARE Instructions: Pancreatitis ([facility]), Hyperglycemia ([facility]), Family Physicians / Practices Additional Instructions: You have been evaluated in the Emergency Department for abdominal pain and having an elevated glucose. While here, you had blood work that did not show any evidence of acid buildup. You were given IV fluids with insulin and it is now safe to be discharged home. Please follow-up with your primary physician as instructed in 1 week to be rechecked. Return to the Emergency Department if you experience worsening pain, inability to keep down food, uncontrollable blood sugar, or any other concerning symptoms. Prescriptions: Metoclopramide HCl [Reglan 10 mg Tablet] 10 mg PO Q8HP PRN #30 tablet PRN Reason: For Nausea/Vomiting Print Language: Korean
[2018-05-19] MEDS ORDERED: MORPHINE SULFATE 10 MG/ML INJ IV ONE (00:39)
[2018-05-19] MEDS ORDERED: METOCLOPRAMIDE HCL INJ/PF 10 MG/2 ML SDV IV ONE (00:39)
[2018-05-19] MEDS ORDERED: NORMAL SALINE 1000 ML 1,000 ML IV ONE (00:39)
[2018-05-19 00:48] LABS: ALANINE AMINOTRANSFERASE 206 U/L (21-72); ALBUMIN 3.5 g/dL (3.5-5.0); ALKALINE PHOSPHATASE 276 U/L (38-126); ANION GAP 10 (5-19); ASPARTATE AMINO TRANSFERASE 152 U/L (17-59); BILIRUBIN,DIRECT 0.3 mg/dL (0.0-0.4); BILIRUBIN,TOTAL 0.3 mg/dL (0.2-1.3); BLOOD UREA NITROGEN 41 mg/dL (7-20); CALCIUM 9.7 mg/dL (8.4-10.2); CARBON DIOXIDE 16 mmol/L (22-30); CHLORIDE 110 mmol/L (98-107); GLUCOSE 334 mg/dL (75-110); LIPASE 637.5 U/L (23-300); POTASSIUM 5.2 mmol/L (3.6-5.0); SODIUM 135.6 mmol/L (137-145)
[2018-05-19 01:26] LABS: APPEARANCE,URINE SLIGHTLY-CLOUDY; BILIRUBIN,URINE NEGATIVE (NEGATIVE); COLOR,URINE YELLOW; GLUCOSE, URINE >=500 mg/dL (NEGATIVE); KETONES,URINE NEGATIVE (NEGATIVE); LEUKOCYTE ESTERASE,URINE NEGATIVE (NEGATIVE); NITRITE,URINE NEGATIVE (NEGATIVE); PROTEIN,URINE 30 mg/dL (NEGATIVE); URINE SPECIFIC GRAVITY 1.015; UROBILINOGEN,URINE NEGATIVE mg/dL (<2.0)
[2018-05-19] MEDS ORDERED: RINGERS SOLUTION,LACTATED 1,000 ML IV ONE (01:56)
[2018-05-19] MEDS ORDERED: INSULIN REG, HUMAN 100 UNIT/ML 3 ML VIAL (PYX) IV ONE (01:57)
[2018-05-19 04:21] VITALS: BP 130/91
== END 2018-05-19 04:21 | disposition home or self-care (01) ==
LOC: ER 23:04
DX: E11.65 Type 2 diabetes mellitus with hyperglycemia (principal); K86.1 Other chronic pancreatitis; F10.20 Alcohol dependence, uncomplicated; R11.10 Vomiting, unspecified; R10.816 Epigastric abdominal tenderness; F17.200 Nicotine dependence, unspecified, uncomplicated; I10 Essential (primary) hypertension; Z87.19 Personal history of other diseases of the digestive system; Z88.8 Allergy status to other drugs, medicaments and biological substances
CPT/HCPCS: 99284; 96361; 96374; 96375; 36415; 82010; 83690; 85025; 80053; 81001; J2765; J2270; J1815; J7030; J7120

== ENCOUNTER 2018-06-25 17:43 | Inpatient (IN) | payer SELFPAY ==
[2018-06-25] MEDS ORDERED: NORMAL SALINE 1000 ML 1,000 ML IV ONE (18:07)
--- NOTE | 2018-06-25 18:10 | ER Document Report ---
ED Medical Screen (RME) - General Chief Complaint: Chest Pain Stated Complaint: CHEST AND ABDOMINAL PAIN Time Seen by Provider: 06/25/18 18:04 Mode of Arrival: Wheelchair Information source: Patient Notes: 38-year-old male presented to ED for chest pain body aches blurred vision dizziness diarrhea with a blood sugar that read high at home. He states he is a type I diabetic. The Accu-Chek in the emergency room was high will be repeated. I have greeted and performed a rapid initial assessment of this patient. A comprehensive ED assessment and evaluation of the patient, analysis of test results and completion of medical decision making process will be conducted by an additional ED providers. Dictation of this chart was performed using voice recognition software; therefore, there may be some unintended grammatical errors. TRAVEL OUTSIDE OF THE [place] IN LAST 30 DAYS: No - Related Data Allergies/Adverse Reactions: ondansetron [From Zofran (as hydrochloride)] Allergy (Verified 06/25/18 17:45) Past Medical History - Past Medical History Cardiac Medical History: Reports: Hx Hypercholesterolemia, Hx Hypertension - Taken off medication for same. Denies: Hx Atrial Fibrillation, Hx Congestive Heart Failure, Hx Coronary Artery Disease, Hx Heart Attack, Hx Pulmonary Embolism Pulmonary Medical History: Denies: Hx Asthma, Hx COPD, Hx Sleep Apnea Neurological Medical History: Denies: Hx Migraine, Hx Seizures Endocrine Medical History: Reports: Hx Diabetes Mellitus Type 1, Hx Diabetes Mellitus Type 2. Denies: Hx Hyperthyroidism, Hx Hypothyroidism Renal/ Medical History: Denies: Hx End Stage Renal Disease, Hx Peritoneal Dialysis GI Medical History: Reports: Hx Gastroesophageal Reflux Disease, Hx Pancreatitis, Hx Ulcer. Denies: Hx Cirrhosis, Hx Hepatitis Musculoskeltal Medical History: Denies Hx Arthritis, Denies Hx Fibromyalgia, Denies Hx Systemic Lupus Erythematosus Skin Medical History: Denies Hx Eczema, Denies Hx Psoriasis Psychiatric Medical History: Reports: Hx Depression Infectious Medical History: Reports: Hx MRSA. 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 Denies: Hx Appendectomy, Hx Cholecystectomy, Hx Tonsillectomy - Immunizations Hx Diphtheria, Pertussis, Tetanus Vaccination: Yes History of Influenza Vaccine for 11/2016 - 04/2017 Season: Refused Physical Exam - Vital signs Vitals: Temp Pulse Resp BP Pulse Ox 98.1 F 100 22 H 111/69 99 06/25/18 18:01 06/25/18 18:01 06/25/18 18:01 06/25/18 18:01 06/25/18 18:01 Course - Vital Signs Vital signs: Temp Pulse Resp BP Pulse Ox 98.1 F 100 22 H 111/69 99 06/25/18 18:01 06/25/18 18:01 06/25/18 18:01 06/25/18 18:01 06/25/18 18:01
--- NOTE | 2018-06-25 19:14 | RADIOLOGY REPORT (SQ) ---
EXAM DESCRIPTION: CHEST SINGLE VIEW COMPLETED DATE/TIME: 06/25/2018 6:38 pm REASON FOR STUDY: #1 SYNCOPE COMPARISON: 05/03/2018 and earlier EXAM PARAMETERS: NUMBER OF VIEWS: One view. TECHNIQUE: Single frontal radiographic view of the chest acquired. RADIATION DOSE: NA LIMITATIONS: None. FINDINGS: LUNGS AND PLEURA: No opacities, masses or pneumothorax. No pleural effusion. Resolution o f the previously visualized right upper lobe airspace opacity. MEDIASTINUM AND HILAR STRUCTURES: No masses. Contour normal. HEART AND VASCULAR STRUCTURES: Heart normal in size. Normal vasculature. BONES: No acute findings. HARDWARE: None in the chest. OTHER: No other significant finding. IMPRESSION: NO ACUTE RADIOGRAPHIC FINDING IN THE CHEST. TECHNICAL DOCUMENTATION: JOB ID: [id number] [employer]- All Rights Reserved Reading location - IP/workstation name: [email or web address]
--- NOTE | 2018-06-25 19:49 | ER Document Report ---
ED General - General Chief Complaint: Chest Pain Stated Complaint: CHEST AND ABDOMINAL PAIN Time Seen by Provider: 06/25/18 18:04 Mode of Arrival: Wheelchair Notes: Patient is a 38-year-old male with a past medical history of insulin-dependent diabetes, chronic pancreatitis, history of polysubstance abuse, presents co mplaining of 2 days of nausea, vomiting, as well as abdominal pain and chest pain. States that his symptoms started gradually, have been worsening since onset. States that he is been checking his blood sugar at home and that it keeps reading high. States this feels exactly like when he is a diabetic ketoacidosis in the past. Regards his abdominal pain chest pain as being a cramping, throbbing, constant discomfort. Pain is regarded as being severe. Nothing seems to improve or worsen his symptoms. Has not seen his primary care physician regarding today's concerns. Has not had fever. TRAVEL OUTSIDE OF THE [place] IN LAST 30 DAYS: No - Related Data Allergies/Adverse Reactions: ondansetron [From Zofran (as hydrochloride)] Allergy (Verified 06/25/18 17:45) Past Medical History - General Information source: Patient - Social History Smoking Status: Current Every Day Smoker Frequency of alcohol use: Heavy Lives with: Family Family History: DM, Hyperlipidemia, Hypertension Patient has suicidal ideation: No Patient has homicidal ideation: No - Past Medical History Cardiac Medical History: Reports: Hx Hypercholesterolemia, Hx Hypertension - Taken off medication for same. Denies: Hx Atrial Fibrillation, Hx Congestive Heart Failure, Hx Coronary Ar ophelia Disease, Hx Heart Attack, Hx Pulmonary Embolism Pulmonary Medical History: Denies: Hx Asthma, Hx COPD, Hx Sleep Apnea Neurological Medical History: Denies: Hx Migraine, Hx Seizures Endocrine Medical History: Reports: Hx Diabetes Mellitus Type 1, Hx Diabetes Mellitus Type 2. Denies: Hx Hyperthyroidism, Hx Hypothyroidism Renal/ Medical History: Denies: Hx End Stage Renal Disease, Hx Peritoneal Dialysis GI Medical History: Reports: Hx Gastroesophageal Reflux Disease, Hx Pancreatitis, Hx Ulcer. Denies: Hx Cirrhosis, Hx Hepatitis Musculoskeletal Medical History: Denies Hx Arthritis, Denies Hx Fibromyalgia, Denies Hx Systemic Lupus Erythematosus Skin Medical History: Denies Hx Eczema, Denies Hx Psoriasis Psychiatric Medical History: Reports: Hx Depression Infectious Medical History: Reports: Hx MRSA. 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 Denies: Hx Appendectomy, Hx Cholecystectomy, Hx Tonsillectomy - Immunizations Hx Diphtheria, Pertussis, Tetanus Vaccination: Yes Hx Pneumococcal Vaccination: 11/09/11 Review of Systems - Review of Systems Notes: Constitutional: Negative for fever. HENT: Negative for sore throat. Eyes: Negative for visual changes. Cardiovascular: Positive for chest pain. Respiratory: Negative for shortness of breath. Gastrointestinal: Positive for abdominal pain, positive for nausea and vomiting Genitourinary: Negative for dysuria. Musculoskeletal: Negative for back pain. Skin: Negative for rash. Neurological: Negative for headaches, weakness or numbness. 10 point ROS negative except as marked above and in HPI. Physical Exam - Vital signs Vitals: Temp Pulse Resp BP Pulse Ox 98.1 F 100 22 H 111/69 99 06/25/18 18:01 06/25/18 18:01 06/25/18 18:01 06/25/18 18:01 06/25/18 18:01 Interpretation: Tachycardic Notes: PHYSICAL EXAMINATION: GENERAL: Appears unwell but in no overt distress HEAD: Atraumatic, normocephalic. EYES: Pupils equal round and reactive to light, extraocular movements intact, sclera anicteric, conjunctiva are normal. ENT: nares patent, oropharynx clear without exudates. Very dry mucous membranes. NECK: Normal range of motion, supple without lymphadenopathy LUNGS: Breath sounds clear to auscultation bilaterally and equal. No wheezes rales or rhonchi. HEART: Regular tachycardia without murmurs ABDOMEN: Soft, diffuse tenderness to palpation without localization, normoactive bowel sounds. No guarding, no rebound. No masses appreciated. EXTREMITIES: Normal range of motion, no pitting or edema. No cyanosis. NEUROLOGICAL: No focal neurological deficits. Moves all extremities spontaneously and on command. PSYCH: Somewhat somnolent but oriented x3 SKIN: Warm, Dry, mildly diminished turgor, no rashes or lesions noted. Course - Re-evaluation Re-evalutation: 06/25/18 19:49 Patient presents with nausea, vomiting coffee-ground emesis as well as chest and abdominal pain similar to a multitude of presentations he has had in the past related to diabetic ketoacidosis and chronic pancreatitis. Patient's initial vitals show mild tachycardia, otherwise unremarkable. He is mildly lethargic but oriented and answers all question's appropriately. He is difficult for IV access but we have been able to establish a single line and are working to process blood work. His initial BGL in triage was read as high. 2 L of fluids have been initiated. Patient is in guarded condition, will reassess at regular intervals. 06/25/18 20:02 Patient is very difficult IV access. I established a right external jugular IV. We are now continuing fluid resuscitation. 06/25/18 21:14 Patient's labs have returned demonstrating findings consistent with diabetic ketoacidosis with decreased pH, glucose of 991, anion gap and decreased bicarb. Ketones are present in the urine. A lactated Ringer's bolus has been ordered. The patient will be started on potassium riders as his potassium is between 3.3 and 5.3 as well as an insulin infusion starting at 0.14 units/kg/h without titration. No bolus of insulin will be administered. Will continue to reassess at regular intervals. 06/25/18 21:41 Patient's overall response level is improving with IV fluid resuscitation. I have discussed this case with the hospitalist Dr. Villanueva who has accepted the patient for admission. 06/26/18 03:55 - Vital Signs Vital signs: Temp Pulse Resp BP Pulse Ox 98.1 F 90 18 104/70 100 06/25/18 18:01 06/26/18 02:00 06/26/18 00:59 06/26/18 00:59 06/26/18 00:59 - Laboratory Result Diagrams: 06/25/18 19:40 06/25/18 23:37 Laboratory results interpreted by me: 06/25/18 06/25/18 06/25/18 19:40 19:40 19:40 RBC 4.04 L Hgb 10.9 L Hct 36.3 L MCHC 30.1 L RDW 18.6 H Seg Neutrophils % 81.6 H Lymphocytes % 10.6 L VBG pH 7.24 L VBG pCO2 24.6 L VBG HCO3 10.2 L Sodium 124.6 L Chloride 93 L Carbon Dioxide 9 L* Anion Gap 23 H BUN 30 H Creatinine 1.34 H Glucose 991 H* Alkaline Phosphatase 196 H Albumin 3.3 L Lipase Urine Glucose (UA) Urine Ketones Urine Blood 06/25/18 06/25/18 19:40 20:35 RBC Hgb Hct MCHC RDW Seg Neutrophils % Lymphocytes % VBG pH VBG pCO2 VBG HCO3 Sodium Chloride Carbon Dioxide Anion Gap BUN Creatinine Glucose Alkaline Phosphatase Albumin Lipase 780.7 H Urine Glucose (UA) >=500 H Urine Ketones 20 H Urine Blood SMALL H - Diagnostic Test Radiology reviewed: Image reviewed, Reports reviewed Radiology results interpreted by me: 06/25/18 21:42 Chest x-ray: No acute infiltrate or pneumothorax Critical Care Note - Critical Care Note Total time excluding time spent on procedures (mins): 35 Comments: Critical care time spent obtaining history from patient or surrogate, discussions with consultants, development of treatment plan with patient or surrogate, evaluation of patient's response to treatment, examination of patient, ordering and performing treatments and interventions, ordering and review of laboratory studies, re-evaluation of patient's condition, ordering and review of radiographic studies and review of old charts Discharge - Discharge Clinical Impression: Dehydration Diabetic ketoacidosis Qualifiers: Diabetes mellitus type: type 1 Diabetes mellitus complication detail: without coma Qualified Code(s): E10.10 - Type 1 diabetes mellitus with ketoacidosis without coma Nausea and vomiting Qualifiers: Vomiting type: unspecified Vomiting Intractability: non-intractable Qualified Code(s): R11.2 - Nausea with vomiting, unspecified Condition: Fair Disposition: ADMITTED INPATIENT Admitting Provider: Rich (Hospitalist) Unit Admitted: ICU
[2018-06-25] MEDS: NORMAL SALINE 1000 ML 1,000 ML IV PRN ×2 (20:00→21:53)
[2018-06-25] MEDS ORDERED: METOCLOPRAMIDE HCL INJ/PF 10 MG/2 ML SDV IV ONE (20:02)
[2018-06-25 20:05] LABS: ABSOLUTE LYMPHOCYTES (AUTO) 0.9 10^3/uL (0.5-4.7); ABSOLUTE MONOCYTES (AUTO) 0.6 10^3/uL (0.1-1.4); ABSOLUTE NEUT (AUTO) 7.1 10^3/uL (1.7-8.2); BASOPHILS % (AUTO) 0.5 % (0-2); EOSINOPHILS % (AUTO) 0.4 % (0-6); HEMATOCRIT 36.3 % (37.9-51.0); HEMOGLOBIN 10.9 g/dL (13.5-17.0); LYMPHOCYTES % (AUTO) 10.6 % (13-45); MEAN CORPUSCULAR HGB CONC 30.1 g/dL (32.0-36.0); MEAN CORPUSCULAR VOLUME 90 fl (80-97); MONOCYTES % (AUTO) 6.9 % (3-13); PLATELET COUNT 209 10^3/uL (150-450); RED BLOOD COUNT 4.04 10^6/uL (4.35-5.55); RED CELL DISTRIBUTION WIDTH 18.6 % (11.5-14.0); SEGMENTED NEUTROPHILS % (AUTO) 81.6 % (42-78); TOTAL CELLS COUNTED % (AUTO) 100 %; WHITE BLOOD COUNT 8.7 10^3/uL (4.0-10.5)
[2018-06-25 20:06] LABS: VENOUS BLOOD BASE EXCESS -15.6 mmol/L; VENOUS BLOOD HCO3 10.2 mmol/L (20-32); VENOUS BLOOD PCO2 24.6 mmHg (35-63); VENOUS BLOOD PH 7.24 (7.30-7.42)
[2018-06-25 21:02] LABS: ALANINE AMINOTRANSFERASE 45 U/L (21-72); ALBUMIN 3.3 g/dL (3.5-5.0); ALKALINE PHOSPHATASE 196 U/L (38-126); ASPARTATE AMINO TRANSFERASE 32 U/L (17-59); BILIRUBIN,DIRECT 0.3 mg/dL (0.0-0.4); BILIRUBIN,TOTAL 0.5 mg/dL (0.2-1.3); BLOOD UREA NITROGEN 30 mg/dL (7-20); CALCIUM 9.1 mg/dL (8.4-10.2); POTASSIUM 4.9 mmol/L (3.6-5.0); TOTAL PROTEIN 6.5 g/dL (6.3-8.2)
[2018-06-25 21:03] LABS: APPEARANCE,URINE CLEAR; BILIRUBIN,URINE NEGATIVE (NEGATIVE); COLOR,URINE STRAW; GLUCOSE, URINE >=500 mg/dL (NEGATIVE); KETONES,URINE 20 mg/dL (NEGATIVE); LEUKOCYTE ESTERASE,URINE NEGATIVE (NEGATIVE); NITRITE,URINE NEGATIVE (NEGATIVE); PROTEIN,URINE NEGATIVE (NEGATIVE); URINE SPECIFIC GRAVITY 1.022; UROBILINOGEN,URINE NEGATIVE mg/dL (<2.0)
[2018-06-25 21:06] LABS: CHLORIDE 93 mmol/L (98-107); SODIUM 124.6 mmol/L (137-145)
[2018-06-25 21:09] LABS: ALCOHOL < 10 mg/dL (NONE DETECTED)
[2018-06-25 21:10] LABS: ANION GAP 23 (5-19)
[2018-06-25 21:11] LABS: CARBON DIOXIDE 9 mmol/L (22-30); GLUCOSE 991 mg/dL (75-110)
[2018-06-25] MEDS ORDERED: INSULIN REG, HUMAN 100 UNIT/ML 3 ML VIAL (PYX) IV ONE (21:13)
[2018-06-25] MEDS ORDERED: POTASSI CL 20 MEQ/50 ML RIDER 20 MEQ/50 ML RTUPB IV ONE (21:13)
[2018-06-25] MEDS ORDERED: RINGERS SOLUTION,LACTATED 1,000 ML IV ONE (21:14)
--- NOTE | 2018-06-25 22:08 | EKG REPORT ---
SEVERITY:- ABNORMAL ECG - SINUS RHYTHM NONSPECIFIC INTRAVENTRICULAR CONDUCTION DELAY : Confirmed by: Juan Pablo Holm MD 25-Jun-2018 22:07:46
[2018-06-25] MEDS ORDERED: MAG HYDROX/AL HYDROX/SIMETH SUSP 30 ML UDCUP PO PRN (22:38)
[2018-06-25] MEDS ORDERED: MAGNESIUM HYDROXIDE SUSP 30 ML UDCUP PO PRN (22:38)
[2018-06-25] MEDS ORDERED: ACETAMINOPHEN 325 MG TABLET PO PRN (22:45)
[2018-06-25] MEDS ORDERED: DEXTROSE 5%-WATER 1000 ML 1,000 ML with SODIUM BICARBONATE 150 MEQ IV PRN ×2 (22:45)
[2018-06-25] MEDS ORDERED: NICOTINE 21 MG/24 HR PATCH.TD24 TD PRN (22:45)
[2018-06-25] MEDS ORDERED: NALBUPHINE HCL INJ 10 MG/1 ML AMPULE IV PRN (22:45)
[2018-06-25] MEDS ORDERED: CHLORPROMAZINE HCL INJ 25 MG/1 ML AMPULE IV PRN (22:45)
[2018-06-25] MEDS ORDERED: DIAZEPAM INJ 10 MG/2 ML DISP.SYRIN IV PRN (22:45)
[2018-06-25] MEDS ORDERED: PANTOPRAZOLE SODIUM 40 MG VIAL IV SCH (22:45)
[2018-06-25] MEDS ORDERED: GLUCAGON,HUMAN RECOMB 1 MG INJ IM PRN (22:47)
[2018-06-25] MEDS ORDERED: DEXTROSE 50%-WATER 25 GM/50 ML DISP.SYRIN IV PRN ×2 (22:47)
[2018-06-25] MEDS ORDERED: DEXTROSE 40% GEL 15 GM TUBE PO PRN ×2 (22:47)
[2018-06-25 22:56] LABS: LIPASE 780.7 U/L (23-300)
[2018-06-25 22:58] LABS: CREATINE KINASE MB 4.12 ng/mL (<4.55)
[2018-06-25 22:59] LABS: TROPONIN I < 0.012 ng/mL
[2018-06-25] MEDS ORDERED: SODIUM BICARBONATE 8.4% INJ 50 MEQ/50 ML DISP.SYRIN ONE ×2 (23:50→23:52)
[2018-06-26 00:31] LABS: URINE AMPHETAMINES SCREEN NEGATIVE; URINE BARBITURATES SCREEN NEGATIVE; URINE BENZODIAZEPINES SCREEN NEGATIVE; URINE COCAINE SCREEN NEGATIVE; URINE MARIJUANA (THC) SCREEN NEGATIVE; URINE METHADONE SCREEN NEGATIVE; URINE PHENCYCLIDINE SCREEN NEGATIVE
[2018-06-26] MEDS: NORMAL SALINE 100 ML with INSULIN REGULAR, HUMAN 100 UNIT IV PRN ×4 (01:04→11:58)
[2018-06-26] MEDS: PROMETHAZINE HCL INJ 25 MG/1 ML VIAL IV PRN ×3 (01:12→21:34)
[2018-06-26] MEDS: RINGERS SOLUTION,LACTATED 1,000 ML IV PRN ×2 (01:38→07:47)
[2018-06-26] MEDS: NALBUPHINE HCL INJ 10 MG/1 ML AMPULE IV PRN ×3 (04:14→11:46)
--- NOTE | 2018-06-26 04:26 | PDOC H&P ---
History of Present Illness Admission Date/PCP: 06/25/18 21:56 No PCP Patient complains of: Vomiting History of Present Illness: CHESTER MCKEON is a 38 year old male who presented to the emergency room with a 1 day history of vomiting. He admits progressively worsening vomiting with nausea over the last 24 hours. His emesis has been coffee-ground looking material one time this morning and otherwise just yellowish clear liquid. His vomiting has been accompanied by lower chest and upper abdominal colicky pain of moderate to severe intensity without radiation. Additionally he complains of associated lethargy and a rapid heartbeat. He admits numerous prior similar episodes with diabetic ketoacidosis and chronic pancreatitis. He denies identification of any aggravating or ameliorating factors for his vomiting. In the emergency room he was found to have a mild tachycardia and mild lethargy both of which responded well to IV fluids. Additionally he was found to have a blood glucose of 991 with a bicarb of 9 and ketones positive in his urine and a pH of 7.24. He was subsequently admitted to the hospital for further evaluation and treatment of his diabetic ketoacidosis. Past Medical History Cardiac Medical History: Reports: Hyperlipidema, Hypertension Denies: Atrial Fibrillation, Congestive Heart Failure, Coronary Artery Disease, Myocardial Infarction, Pulmonary Embolism Pulmonary Medical History: Denies: Asthma, Chronic Obstructive Pulmonary Disease (COPD), Sleep Apnea EENT Medical History: Denies: Cataracts, Eyes - Prescription lenses, Ears - Hearing aids Neurological Medical History: Denies: Migraine, Seizures Endocrine Medical History: Reports: Diabetes Mellitus Type 1 Denies: Hyperthyroidism, Hypothyroidism, Obesity Renal/ Medical History: Denies: Chronic Kidney Disease, Nephrolithiasis Malignancy Medical History: Reports: None GI Medical History: Reports: Gastroesophageal Reflux Disease, Other - Chronic pancreatitis and history of upper gastrointestinal bleeding Denies: Cirrhosis, Hepatitis Musculoskeltal Medical History: Denies: Arthritis, Fibromyalgia Skin Medical History: Denies: Eczema, Psoriasis Psychiatric Medical History: Reports: Depression, Substance Abuse Denies: Alcohol Dependency, Tobacco Dependency Traumatic Medical History: Reports: None Hematology: Reports: Anemia - Chronic illnesses Denies: Bleeding Tendencies Infectious Medical History: Reports: Methicillin-Resistant Staph Aureus Past Surgical History Past Surgical History: Reports: Orthopedic Surgery - back, left long finger PIP disarticulation, right hand I and D Social History Information Source: Patient Smoking Status: Never Smoker Frequency of Alcohol Use: None Hx Recreational Drug Use: Yes Drugs: Cocaine, Marijuana Hx Prescription Drug Abuse: No - Advance Directive Resuscitation Status: Full Code Surrogate healthcare decision maker:: Angel Aguirre his mother Family History Family History: DM, Hyperlipidemia, Hypertension Parental Family History Reviewed: Yes Children Family History Reviewed: No Sibling(s) Family History Reviewed.: Yes Medication/Allergy Home Medications: Insulin Aspart [Novolog Flexpen] See Protocol SUBCUT MEALS 04/20/18 Gabapentin [Neurontin 100 mg Capsule] 200 mg PO Q8 PRN #60 capsule 05/18/18 Hum Insulin NPH/Reg Insulin Hm [Insulin 70-30 (NPH/Reg) 100 unit/mL] 35 unit SUBCUT BIDACBS #2 unit 05/18/18 Pantoprazole Sodium [Protonix [address] Tablet] 40 mg PO QAM #30 tablet.dr 05/18/18 Metoclopramide HCl [Reglan 10 mg Tablet] 10 mg PO Q8HP PRN #30 tablet 05/19/18 Ferrous Sulfate [Feosol] 1 tab PO BID 06/26/18 Lipase/Protease/Amylase [Pancrease Mt-16 EC Capsule] 1 cap PO AC 06/26/18 Allergies/Adverse Reactions: ondansetron [From Zofran (as hydrochloride)] Allergy (Verified 06/25/18 17:45) Review of Systems Constitutional: PRESENT: other - Lethargy. ABSENT: chills, fever(s) Eyes: ABSENT: visual disturbances, other - Ocular pain Ears: ABSENT: hearing changes, other - Ear pain Nose, Mouth, and Throat: ABSENT: mouth pain, sore throat Cardiovascular: PRESENT: as per HPI, chest pain, palpitations. ABSENT: dyspnea on exertion, edema, orthropnea Respiratory: ABSENT: cough, dyspnea Gastrointestinal: PRESENT: as per HPI, abdominal pain, hematemesis - Coffee- ground emesis x1, nausea, vomiting. ABSENT: constipation, diarrhea Genitourinary: ABSENT: dysuria, hematuria Musculoskeletal: ABSENT: back pain, joint swelling Integumentary: ABSENT: pruritus, rash Neurological: ABSENT: confusion, convulsions, focal weakness, memory loss, syncope Psychiatric: ABSENT: anxiety, depression Endocrine: ABSENT: cold intolerance, heat intolerance Hematologic/Lymphatic: ABSENT: easy bleeding, easy bruising Physical Exam Vital Signs: Temp Pulse Resp BP Pulse Ox 98.1 F 100 18 122/90 H 97 06/25/18 18:01 06/25/18 18:01 06/25/18 20:00 06/25/18 19:00 06/25/18 20:00 Intake & Output 06/23/18 06/24/18 06/25/18 23:59 23:59 23:59 Intake Total 1999 Balance 1999 Weight 62.4 kg General appearance: PRESENT: no acute distress, cooperative Head exam: PRESENT: atraumatic, normocephalic Eye exam: ABSENT: conjunctival injection, scleral icterus Ear exam: PRESENT: normal external ear exam. ABSENT: bleeding, drainage Mouth exam: PRESENT: dry mucosa, neck supple Neck exam: ABSENT: thyromegaly, tracheal deviation Respiratory exam: PRESENT: clear to auscultation alfonso, symmetrical, unlabored Cardiovascular exam: PRESENT: RRR. ABSENT: clicks, gallop, rubs Pulses: PRESENT: normal radial pulses, normal dorsalis pedis pul Vascular exam: PRESENT: normal capillary refill. ABSENT: pallor GI/Abdominal exam: PRESENT: normal bowel sounds, soft Rectal exam: PRESENT: deferred Extremities exam: ABSENT: joint swelling, pedal edema Musculoskeletal exam: PRESENT: full ROM, normal inspection Neurological exam: PRESENT: alert, oriented to person, oriented to place, oriented to time, oriented to situation, CN II-XII grossly intact. ABSENT: motor sensory deficit Psychiatric exam: PRESENT: appropriate affect, normal mood Skin exam: PRESENT: dry, intact, warm. ABSENT: jaundice, rash, urticaria Results Laboratory Results: 06/25/18 19:40 06/25/18 06/25/18 06/25/18 19:40 19:40 19:40 WBC 8.7 RBC 4.04 L Hgb 10.9 L Hct 36.3 L MCV 90 MCH 27.0 MCHC 30.1 L RDW 18.6 H Plt Count 209 Seg Neutrophils % 81.6 H Lymphocytes % 10.6 L Monocytes % 6.9 Eosinophils % 0.4 Basophils % 0.5 Absolute Neutrophils 7.1 Absolute Lymphocytes 0.9 Absolute Monocytes 0.6 Absolute Eosinophils 0.0 Absolute Basophils 0.0 VBG pH 7.24 L VBG pCO2 24.6 L VBG HCO3 10.2 L VBG Base Excess -15.6 Sodium 124.6 L Potassium 4.9 Chloride 93 L Carbon Dioxide 9 L* Anion Gap 23 H BUN 30 H Creatinine 1.34 H Est GFR ( Amer) > 60 Est GFR (Non-Af Amer) > 60 Glucose 991 H* Calcium 9.1 Total Bilirubin 0.5 AST 32 ALT 45 Alkaline Phosphatase 196 H Total Protein 6.5 Albumin 3.3 L Urine Color Urine Appearance Urine pH Ur Specific [place] Urine Protein Urine Glucose (UA) Urine Ketones Urine Blood Urine Nitrite Ur Leukocyte Esterase Urine WBC (Auto) Urine RBC (Auto) 06/25/18 20:35 WBC RBC Hgb Hct MCV MCH MCHC RDW Plt Count Seg Neutrophils % Lymphocytes % Monocytes % Eosinophils % Basophils % Absolute Neutrophils Absolute Lymphocytes Absolute Monocytes Absolute Eosinophils Absolute Basophils VBG pH VBG pCO2 VBG HCO3 VBG Base Excess Sodium Potassium Chloride Carbon Dioxide Anion Gap BUN Creatinine Est GFR ( Amer) Est GFR (Non-Af Amer) Glucose Calcium Total Bilirubin AST ALT Alkaline Phosphatase Total Protein Albumin Urine Color STRAW Urine Appearance CLEAR Urine pH 5.0 Ur Specific [place] 1.022 Urine Protein NEGATIVE Urine Glucose (UA) >=500 H Urine Ketones 20 H Urine Blood SMALL H Urine Nitrite NEGATIVE Ur Leukocyte Esterase NEGATIVE Urine WBC (Auto) 1 Urine RBC (Auto) 0 Impressions: Chest X-Ray 06/25/18 18:12 IMPRESSION: NO ACUTE RADIOGRAPHIC FINDING IN THE CHEST. Assessment and Plan - Diagnosis (1) DKA (diabetic ketoacidoses) Qualifiers: Diabetes mellitus type: type 1 Diabetes mellitus complication detail: [facility] coma Qualified Code(s): E10.10 - Type 1 diabetes mellitus with keto acidosis without coma Is this a current diagnosis for this admission?: Yes Plan: Patient be treated with an insulin infusion and a bicarbonate infusion. He will also be given IV fluid and will be monitored closely with nightly hour Accu-Cheks initially. He will be given a diabetic diet and hemoglobin A1c will be obtained as part of his assessment. Daily CBC and BMPs with magnesium levels will be obtained. (2) Acute on chronic pancreatitis Is this a current diagnosis for this admission?: Yes Plan: Daily amylase and lipase levels will be obtained as appropriate. Patient's pancreatitis will be treated with Nubain 10 mg IV every 3 hours as needed for associated pain. He will be started on a diet as soon as he is able to tolerate it and his nausea and decreased GI motility associated with his pancreatitis will be treated with Reglan. He will use IV Phenergan for nausea and vomiting. (3) Acute kidney injury Is this a current diagnosis for this admission?: Yes Plan: Patient receive IV fluid for treatment of his acute kidney injury. His daily metabolic profiles will be followed to assess efficacy of therapy. (4) Nausea and vomiting Qualifiers: Vomiting type: unspecified Vomiting Intractability: non-intractable Qualified Code(s): R11.2 - Nausea with vomiting, unspecified Is this a current diagnosis for this admission?: Yes Plan: Patient will be treated with Phenergan intravenously for control of his nausea. He will have supportive cares with IV fluid and other symptomatic cares as required. - Time Time Spent with patient: 15-24 minutes Anticipated discharge: Home - Inpatient Certification Based on my medical assessment, after consideration of the patient's comorbidities, presenting symptoms, or acuity I expect that the services needed warrant INPATIENT care.: Yes I certify that my determination is in accordance with my understanding of Medicare's requirements for reasonable and necessary INPATIENT services [42 CFR 412.3e].: Yes Medical Necessity: Significant Comorbidiites Make Outpatient Treatment Too Risky, Need Close Monitoring Due to Risk of Patient Decompensation, Need For IV Fluids, Need For Continuous Telemetry Monitoring, Need for Pain Control, Risk of Complication if Not Cared For in Hospital
[2018-06-26 05:13] LABS: HEMATOCRIT 38.8 % (37.9-51.0); HEMOGLOBIN 12.6 g/dL (13.5-17.0); MEAN CORPUSCULAR HGB CONC 32.3 g/dL (32.0-36.0); PLATELET COUNT 164 10^3/uL (150-450); RED BLOOD COUNT 4.65 10^6/uL (4.35-5.55); RED CELL DISTRIBUTION WIDTH 18.2 % (11.5-14.0); WHITE BLOOD COUNT 7.1 10^3/uL (4.0-10.5)
[2018-06-26 05:17] LABS: MEAN CORPUSCULAR VOLUME 84 fl (80-97)
[2018-06-26 05:30] LABS: ANION GAP 17 (5-19); BLOOD UREA NITROGEN 22 mg/dL (7-20); CALCIUM 8.5 mg/dL (8.4-10.2); CARBON DIOXIDE 13 mmol/L (22-30); CHLORIDE 105 mmol/L (98-107); SODIUM 134.8 mmol/L (137-145)
[2018-06-26 05:58] LABS: POTASSIUM 3.6 mmol/L (3.6-5.0)
[2018-06-26 05:59] LABS: GLUCOSE 490 mg/dL (75-110)
[2018-06-26] MEDS: METOCLOPRAMIDE HCL INJ/PF 10 MG/2 ML SDV IV SCH ×4 (07:47→21:34)
[2018-06-26] MEDS ORDERED: POTASSI CL 20 MEQ/D5-1/2NS 1L 1000 ML IV PRN (09:08)
[2018-06-26] MEDS: PANTOPRAZOLE SODIUM 40 MG VIAL IV SCH ×2 (09:44→21:34)
[2018-06-26] MEDS: DOCUSATE SODIUM 100 MG CAPSULE PO SCH ×2 (09:45→17:00)
[2018-06-26 11:18] LABS: ANION GAP 9 (5-19); BLOOD UREA NITROGEN 20 mg/dL (7-20); CALCIUM 8.8 mg/dL (8.4-10.2); CARBON DIOXIDE 21 mmol/L (22-30); CHLORIDE 110 mmol/L (98-107); GLUCOSE 120 mg/dL (75-110); POTASSIUM 3.1 mmol/L (3.6-5.0); SODIUM 140.3 mmol/L (137-145)
[2018-06-26] MEDS ORDERED: NALOXONE HCL INJ/PF 0.4 MG/1 ML SDV IV ONE (12:30)
[2018-06-26] MEDS ORDERED: POTASSIUM CHLORIDE 10 MEQ CAPSULE.ER PO ONE (15:08)
[2018-06-26 15:22] LABS: ANION GAP 6 (5-19); BLOOD UREA NITROGEN 20 mg/dL (7-20); CALCIUM 8.9 mg/dL (8.4-10.2); CARBON DIOXIDE 20 mmol/L (22-30); CHLORIDE 115 mmol/L (98-107); POTASSIUM 3.2 mmol/L (3.6-5.0); SODIUM 141.3 mmol/L (137-145)
[2018-06-26 15:28] LABS: GLUCOSE 68 mg/dL (75-110)
--- NOTE | 2018-06-26 15:33 | PDOC PROGRESS REPORT ---
Subjective Progress Note for:: 06/26/18 Subjective:: No adverse events overnight. No new complaints. He had some lower blood pressures this morning after getting a couple of doses of Nubain, and his blood pressure improved after getting Narcan. The new pain is been discontinued. His urine output has been excellent. Reason For Visit: DKA Physical Exam Vital Signs: Temp Pulse Resp BP Pulse Ox 98.1 F 76 16 108/69 100 06/25/18 18:01 06/26/18 13:47 06/26/18 11:59 06/26/18 13:47 06/26/18 13:47 Intake & Output 06/25/18 06/26/18 06/27/18 06:59 06:59 06:59 Intake Total 4083 2406 Output Total 1100 Balance 2983 2406 Weight 68.1 kg General appearance: PRESENT: no acute distress, cooperative, disheveled Respiratory exam: PRESENT: clear to auscultation alfonso, symmetrical, unlabored. ABSENT: accessory muscle use, chest wall tenderness, prolonged expiratory phas, rales, rhonchi, tachypnea, wheezes Cardiovascular exam: PRESENT: RRR, +S1, +S2. ABSENT: diastolic murmur, systolic murmur Pulses: PRESENT: normal carotid pulses Vascular exam: PRESENT: normal capillary refill GI/Abdominal exam: PRESENT: normal bowel sounds, soft. ABSENT: distended, guarding, rebound, tenderness Extremities exam: ABSENT: clubbing, pedal edema Musculoskeletal exam: PRESENT: normal inspection. ABSENT: deformity Neurological exam: PRESENT: alert, awake, oriented to person, oriented to place, oriented to time, oriented to situation Psychiatric exam: PRESENT: appropriate affect, normal mood Skin exam: PRESENT: dry, warm Results Laboratory Results: 06/26/18 04:41 06/25/18 06/25/18 06/25/18 19:40 19:40 19:40 WBC 8.7 RBC 4.04 L Hgb 10.9 L Hct 36.3 L MCV 90 MCH 27.0 MCHC 30.1 L RDW 18.6 H Plt Count 209 Seg Neutrophils % 81.6 H Lymphocytes % 10.6 L Monocytes % 6.9 Eosinophils % 0.4 Basophils % 0.5 Absolute Neutrophils 7.1 Absolute Lymphocytes 0.9 Absolute Monocytes 0.6 Absolute Eosinophils 0.0 Absolute Basophils 0.0 VBG pH 7.24 L VBG pCO2 24.6 L VBG HCO3 10.2 L VBG Base Excess -15.6 Sodium 124.6 L Potassium 4.9 Chloride 93 L Carbon Dioxide 9 L* Anion Gap 23 H BUN 30 H Creatinine 1.34 H Est GFR ( Amer) > 60 Est GFR (Non-Af Amer) > 60 Glucose 991 H* Calcium 9.1 Magnesium Total Bilirubin 0.5 AST 32 ALT 45 Alkaline Phosphatase 196 H Total Protein 6.5 Albumin 3.3 L Amylase Lipase Urine Color Urine Appearance Urine pH Ur Specific [place] Urine Protein Urine Glucose (UA) Urine Ketones Urine Blood Urine Nitrite Ur Leukocyte Esterase Urine WBC (Auto) Urine RBC (Auto) 06/25/18 06/25/18 06/25/18 19:40 20:35 22:19 WBC RBC Hgb Hct MCV MCH MCHC RDW Plt Count Seg Neutrophils % Lymphocytes % Monocytes % Eosinophils % Basophils % Absolute Neutrophils Absolute Lymphocytes Absolute Monocytes Absolute Eosinophils Absolute Basophils VBG pH VBG pCO2 VBG HCO3 VBG Base Excess Sodium Potassium Chloride Carbon Dioxide Anion Gap BUN Creatinine Est GFR ( Amer) Est GFR (Non-Af Amer) Glucose 892 H* Calcium Magnesium Total Bilirubin AST ALT Alkaline Phosphatase Total Protein Albumin Amylase 70 Lipase 780.7 H Urine Color STRAW Urine Appearance CLEAR Urine pH 5.0 Ur Specific [place] 1.022 Urine Protein NEGATIVE Urine Glucose (UA) >=500 H Urine Ketones 20 H Urine Blood SMALL H Urine Nitrite NEGATIVE Ur Leukocyte Esterase NEGATIVE Urine WBC (Auto) 1 Urine RBC (Auto) 0 06/25/18 06/26/18 06/26/18 23:37 04:41 04:41 WBC 7.1 RBC 4.65 Hgb 12.6 L Hct 38.8 MCV 84 D MCH 27.0 MCHC 32.3 RDW 18.2 H Plt Count 164 Seg Neutrophils % Lymphocytes % Monocytes % Eosinophils % Basophils % Absolute Neutrophils Absolute Lymphocytes Absolute Monocytes Absolute Eosinophils Absolute Basophils VBG pH VBG pCO2 VBG HCO3 VBG Base Excess Sodium 134.8 L Potassium 3.6 D Chloride 105 Carbon Dioxide 13 L Anion Gap 17 BUN 22 H Creatinine 1.03 Est GFR ( Amer) > 60 Est GFR (Non-Af Amer) > 60 Glucose 696 H* 490 H* Calcium 8.5 Magnesium 1.9 Total Bilirubin AST ALT Alkaline Phosphatase Total Protein Albumin Amylase Lipase Urine Color Urine Appearance Urine pH Ur Specific [place] Urine Protein Urine Glucose (UA) Urine Ketones Urine Blood Urine Nitrite Ur Leukocyte Esterase Urine WBC (Auto) Urine RBC (Auto) 06/26/18 10:53 WBC RBC Hgb Hct MCV MCH MCHC RDW Plt Count Seg Neutrophils % Lymphocytes % Monocytes % Eosinophils % Basophils % Absolute Neutrophils Absolute Lymphocytes Absolute Monocytes Absolute Eosinophils Absolute Basophils VBG pH VBG pCO2 VBG HCO3 VBG Base Excess Sodium 140.3 Potassium 3.1 L Chloride 110 H Carbon Dioxide 21 L Anion Gap 9 BUN 20 Creatinine 0.85 Est GFR ( Amer) > 60 Est GFR (Non-Af Amer) > 60 Glucose 120 H Calcium 8.8 Magnesium Total Bilirubin AST ALT Alkaline Phosphatase Total Protein Albumin Amylase Lipase Urine Color Urine Appearance Urine pH Ur Specific [place] Urine Protein Urine Glucose (UA) Urine Ketones Urine Blood Urine Nitrite Ur Leukocyte Esterase Urine WBC (Auto) Urine RBC (Auto) 06/25/18 22:19 CK-MB (CK-2) 4.12 Troponin I < 0.012 Impressions: Chest X-Ray 06/25/18 18:12 IMPRESSION: NO ACUTE RADIOGRAPHIC FINDING IN THE CHEST. Assessment and Plan - Diagnosis (1) DKA (diabetic ketoacidoses) Qualifiers: Diabetes mellitus type: type 1 Diabetes mellitus complication detail: without coma Qualified Code(s): E10.10 - Type 1 diabetes mellitus with ketoacidosis without coma Is this a current diagnosis for this admission?: Yes Plan: Currently on insulin drip with IV fluids. Awaiting his next metabolic panel. When he clears DKA, will stop his IV fluids and put him on his home insulin with a consistent carbohydrate diet. - Time Time Spent with patient: 15-24 minutes
[2018-06-26] MEDS ORDERED: INSULIN LISPRO 100 UNIT/ML 3 ML VIAL SUBCUT ONE (22:00)
[2018-06-26] MEDS: INSULIN LISPRO 100 UNIT/ML 3 ML VIAL SUBCUT SCH (22:05)
[2018-06-27 05:34] LABS: RED BLOOD COUNT 3.91 10^6/uL (4.35-5.55)
[2018-06-27 05:39] LABS: HEMATOCRIT 32.5 % (37.9-51.0); MEAN CORPUSCULAR HGB CONC 32.4 g/dL (32.0-36.0); MEAN CORPUSCULAR VOLUME 83 fl (80-97); PLATELET COUNT 162 10^3/uL (150-450); WHITE BLOOD COUNT 8.2 10^3/uL (4.0-10.5)
[2018-06-27 05:40] LABS: HEMOGLOBIN 10.5 g/dL (13.5-17.0)
[2018-06-27 05:59] LABS: ANION GAP 9 (5-19); BLOOD UREA NITROGEN 20 mg/dL (7-20); CARBON DIOXIDE 16 mmol/L (22-30); CHLORIDE 114 mmol/L (98-107); POTASSIUM 4.1 mmol/L (3.6-5.0); SODIUM 138.7 mmol/L (137-145)
[2018-06-27 06:17] LABS: GLUCOSE 425 mg/dL (75-110)
[2018-06-27] MEDS ORDERED: CHLORPROMAZINE HCL INJ 25 MG/1 ML AMPULE IV PRN (07:35)
[2018-06-27] MEDS: INSULIN LISPRO 100 UNIT/ML 3 ML VIAL SUBCUT SCH ×3 (07:49→16:45)
[2018-06-27] MEDS: METOCLOPRAMIDE HCL INJ/PF 10 MG/2 ML SDV IV SCH ×3 (07:49→16:44)
[2018-06-27] MEDS ORDERED: INSULIN LISPRO 100 UNIT/ML 3 ML VIAL SUBCUT SCH (08:00)
[2018-06-27] MEDS: HUM INSULIN NPH/REG INSULIN HM 100 UNIT/1 ML 3 ML SUBCUT SCH ×2 (09:19→16:44)
[2018-06-27] MEDS: DOCUSATE SODIUM 100 MG CAPSULE PO SCH ×2 (09:19→17:09)
[2018-06-27] MEDS: PANTOPRAZOLE SODIUM 40 MG VIAL IV SCH (09:23)
[2018-06-27] MEDS ORDERED: HUM INSULIN NPH/REG INSULIN HM 100 UNIT/1 ML 3 ML SUBCUT ONE (10:00)
[2018-06-27] MEDS ORDERED: INSULIN GLARGINE,HUM.REC.ANLOG 1,000 UNIT/10 ML VIAL SUBCUT SCH (10:00)
--- NOTE | 2018-06-27 14:28 | PDOC DISCHARGE SUMMARY ---
General - Admit/Disc Date/PCP Admission Date/Primary Care Provider: 06/25/18 21:56 Discharge Date: 06/27/18 - Discharge Diagnosis (1) DKA (diabetic ketoacidoses) Is this a current diagnosis for this admission?: Yes Summary: Patient with a history of noncompliance came in in DKA, was treated with IV fluids and insulin drip and electrolyte replacement. Was able to quickly transition off the drip. We will put him back on his home insulin regimen and his blood sugars were more acceptable. Stressed the importance of dietary compliance and taking his insulin as directed. - Additional Information Resuscitation Status: Full Code Discharge Diet: Diabetic Discharge Activity: Activity As Tolerated Home Medications: Insulin Aspart [Novolog Flexpen] See Protocol SUBCUT MEALS 04/20/18 Hum Insulin NPH/Reg Insulin Hm [Insulin 70-30 (NPH/Reg) 100 unit/mL] 35 unit S UBCUT BIDACBS #2 unit 05/18/18 Pantoprazole Sodium [Protonix [address] Tablet] 40 mg PO QAM #30 tablet.dr 05/18/18 Metoclopramide HCl [Reglan 10 mg Tablet] 10 mg PO Q8HP PRN #30 tablet 05/19/18 Ferrous Sulfate [Feosol] 325 mg PO BID 06/26/18 Gabapentin [Neurontin 100 mg Capsule] 200 mg PO Q8 06/26/18 Lipase/Protease/Amylase [Pancrease Mt-16 EC Capsule] 1 cap PO AC 06/26/18 History of Present Illness History of Present Illness: CHESTER MCKEON is a 38 year old male who presented to the emergency room with a 1 day history of vomiting. He admits progressively worsening vomiting with nausea over the last 24 hours. His emesis has been coffee-ground looking material one time this morning and otherwise just yellowish clear liquid. His vomiting has been accompanied by lower chest and upper abdominal colicky pain of moderate to severe intensity without radiation. Additionally he complains of associated lethargy and a rapid heartbeat. He admits numerous prior similar episodes with diabetic ketoacidosis and chronic pancreatitis. He denies clement ntification of any aggravating or ameliorating factors for his vomiting. In the emergency room he was found to have a mild tachycardia and mild lethargy both of which responded well to IV fluids. Additionally he was found to have a blood glucose of 991 with a bicarb of 9 and ketones positive in his urine and a pH of 7.24. He was subsequently admitted to the hospital for further evaluation and t reatment of his diabetic ketoacidosis. Hospital Course Hospital Course: He was brought and placed on IV fluids and insulin drip. He corrected quickly. We will put him back on just simple sliding scale because we were not sure how much insulin he was actually going to need on just the food we brought him here, but his blood sugar was substantially elevated this morning. We gave him some supplemental insulin so the total dose he got this morning was roughly approximate 2 the dose of 70/30 that he takes at home. This brought his sugar down to around 200 before lunchtime. He does 35 units of 70/30 twice a day before breakfast and supper, along with a pre-meal sliding scale of fast acting insulin. He will resume his regimen, and if he is compliant with his diet and this should probably do well enough to control his blood sugars. His labs and e xamination were reassuring he was discharged in good condition. Physical Exam Vital Signs: Temp Pulse Resp BP Pulse Ox 99.0 F 94 20 127/79 H 100 06/27/18 11:37 06/27/18 11:37 06/27/18 11:37 06/27/18 11:37 06/27/18 11:37 Intake & Output 06/26/18 06/27/18 06/28/18 06:59 06:59 06:59 Intake Total 4083 3406 995 Output Total 1100 Balance 2983 3406 995 Weight 68.1 kg 66.3 kg General appearance: PRESENT: no acute distress, cooperative, disheveled Respiratory exam: PRESENT: clear to auscultation alfonso, symmetrical, unlabored. ABSENT: accessory muscle use, chest wall tenderness, prolonged expiratory phas, rales, rhonchi, tachypnea, wheezes Cardiovascular exam: PRESENT: RRR, +S1, +S2. ABSENT: diastolic murmur, systolic murmur Pulses: PRESENT: normal carotid pulses Vascular exam: PRESENT: normal capillary refill GI/Abdominal exam: PRESENT: normal bowel sounds, soft. ABSENT: distended, guarding, rebound, tenderness Extremities exam: ABSENT: clubbing, pedal edema Musculoskeletal exam: PRESENT: normal inspection. ABSENT: deformity Neurological exam: PRESENT: alert, awake, oriented to person, oriented to place, oriented to time, oriented to situation Psychiatric exam: PRESENT: appropriate affect, normal mood Skin exam: PRESENT: dry, warm Results Laboratory Results: 06/27/18 05:05 06/27/18 05:05 06/26/18 06/27/18 06/27/18 14:52 05:05 05:05 WBC 8.2 RBC 3.91 L Hgb 10.5 L D Hct 32.5 L MCV 83 MCH 27.0 MCHC 32.4 RDW 18.0 H Plt Count 162 Sodium 141.3 138.7 Potassium 3.2 L 4.1 Chloride 115 H 114 H Carbon Dioxide 20 L 16 L Anion Gap 6 9 BUN 20 20 Creatinine 0.77 1.02 Est GFR ( Amer) > 60 > 60 Est GFR (Non-Af Amer) > 60 > 60 Glucose 68 L 425 H* Calcium 8.9 9.0 Magnesium 1.8 06/25/18 22:19 CK-MB (CK-2) 4.12 Troponin I < 0.012 Impressions: Chest X-Ray 06/25/18 18:12 IMPRESSION: NO ACUTE RADIOGRAPHIC FINDING IN THE CHEST. Qualifiers - * PATIENT BEING DISCHARGED WITH ANY OF THE FOLLOWING DIAGNOSIS: No Acute Heart Failure Is this a Heart Failure Patient?: No Plan Time Spent: Greater than 30 Minutes
[2018-06-27 18:31] VITALS: BP 80/48
== END 2018-06-27 19:13 | disposition home or self-care (01) | DRG 637 ==
LOC: ER 17:43 → EH 21:56 → 3S 06-26 00:50
PROVIDERS: ADMIT Emergency Medicine; ATTEND Emergency Medicine
DX: E10.10 Type 1 diabetes mellitus with ketoacidosis without coma (principal); K85.90 Acute pancreatitis without necrosis or infection, unspecified; K86.1 Other chronic pancreatitis; E78.5 Hyperlipidemia, unspecified; I10 Essential (primary) hypertension; K21.9 Gastro-esophageal reflux disease without esophagitis; F32.9 Major depressive disorder, single episode, unspecified; F17.200 Nicotine dependence, unspecified, uncomplicated; E86.0 Dehydration; Z88.8 Allergy status to other drugs, medicaments and biological substances; Z79.4 Long term (current) use of insulin; Z91.19 Patient's noncompliance with other medical treatment and regimen; Z79.899 Other long term (current) drug therapy; Z86.14 Personal history of Methicillin resistant Staphylococcus aureus infection; Z83.3 Family history of diabetes mellitus; Z82.49 Family history of ischemic heart disease and other diseases of the circulatory system
CPT/HCPCS: 36415; 71045; 80048; 80053; 80307; 81001; 82150; 82553; 82803; 82947; 82962; 83036; 83690; 83735; 84484; 85025; 85027; 93005; 93010; 99285; J1815; J2300; J2310; J2550; J2765; J3480; J3490; J7030; J7060; J7120; S0164

== ENCOUNTER 2018-08-28 08:13 | Inpatient (IN) | payer SELFPAY ==
[2018-08-28] MEDS ORDERED: METOCLOPRAMIDE HCL INJ/PF 10 MG/2 ML SDV IV ONE (08:29)
[2018-08-28] MEDS ORDERED: NORMAL SALINE 1000 ML 1,000 ML IV ONE ×2 (08:29→10:28)
--- NOTE | 2018-08-28 08:44 | ER Document Report ---
Entered by CHESTER PATTERSON SCRIBE 08/28/18 0828 Acting as scribe for:BRI EASTON MD ED GI/ - General Chief Complaint: Nausea/Vomiting/Diarrhea Stated Complaint: VOMITING Time Seen by Provider: 08/28/18 08:20 Information source: Patient Notes: 35-year-old male with type I diabetes that presents to the emergency department today with complaints of an elevated BGL with associated nausea, vomiting, and diarrhea since yesterday. Patient reports that his sugars have been reading "high" recently. Patient has been seen here numerous times in the past for DKA which is usually related to non-compliance with his medications. Patient reports he has been taking his insulin as prescribed recently. TRAVEL OUTSIDE OF THE [place] IN LAST 30 DAYS: No - Related Data Allergies/Adverse Reactions: ondansetron [From Zofran (as hydrochloride)] Allergy (Verified 08/28/18 08:13) Past Medical History - General Information source: Patient, [facility] - Social History Smoking Status: Current Every Day Smoker Cigarette use (# per day): Yes Lives with: Family Family History: DM, Hyperlipidemia, Hypertension - Past Medical History Cardiac Medical History: Reports: Hx Hypercholesterolemia, Hx Hypertension Pulmonary Medical History: Endocrine Medical History: Reports: Hx Diabetes Mellitus Type 1 GI Medical History: Reports: Hx Gastroesophageal Reflux Disease, Hx Pancreatitis, Hx Ulcer Psychiatric Medical History: Reports: Hx Depression Infectious Medical History: Reports: Hx MRSA Past Surgical History: Reports: Hx Orthopedic Surgery - back, left long finger PIP disarticulation, right hand I and D - Immunizations Hx Diphtheria, Pertussis, Tetanus Vaccination: Yes Hx Pneumococcal Vaccination: 11/09/11 Review of Systems - Review of Systems Constitutional: See HPI, Other - HIGH BGL EENT: No symptoms reported Cardiovascular: No symptoms reported Respiratory: No symptoms reported Gastrointestinal: See HPI, Diarrhea, Nausea, Vomiting Genitourinary: No symptoms reported Male Genitourinary: No symptoms reported Musculoskeletal: No symptoms reported Skin: No symptoms reported Hematologic/Lymphatic: No symptoms reported Neurological/Psychological: No symptoms reported -: Yes All other systems reviewed and negative Physical Exam - Vital signs Vitals: Temp Pulse Resp BP Pulse Ox 97.2 F 92 18 104/51 L 97 08/28/18 08:17 08/28/18 08:17 08/28/18 08:17 08/28/18 08:17 08/28/18 08:17 - Notes Notes: Physical Exam: General: Alert, actively vomiting. No ketone odor on breath. HEENT: Normocephalic. Atraumatic. PERRL. Extraocular movements intact. Oropharynx clear. Neck: Supple. Non-tender. Respiratory: No respiratory distress. No tachypnea. Cardiovascular: Regular rate and rhythm. Abdominal: Normal Inspection. Non-tender. No distension. Normal Bowel Sounds. Back: Grossly normal. Extremities: Moves all four extremities. Upper extremities: Normal inspection. Normal ROM. Lower extremities: Normal inspection. No edema. Normal ROM. Neurological: Normal cognition. AAOx4. Normal speech. Psychological: Normal affect. Normal Mood. Skin: Warm. Dry. Normal color. Course - Vital Signs Vital signs: Temp Pulse Resp BP Pulse Ox 97.2 F 92 12 120/70 100 08/28/18 08:17 08/28/18 08:17 08/28/18 09:19 08/28/18 09:21 08/28/18 09:19 - Laboratory Result Diagrams: 08/28/18 09:27 08/28/18 09:27 Laboratory results interpreted by me: 08/28/18 08/28/18 08/28/18 09:17 09:27 09:27 RBC 4.18 L Hgb 10.9 L Hct 37.0 L MCH 26.0 L MCHC 29.3 L RDW 17.3 H Seg Neutrophils % 85.2 H Lymphocytes % 7.4 L Absolute Neutrophils 8.9 H Sodium 125.4 L Potassium 5.6 H Chloride 96 L Carbon Dioxide 7 L* Anion Gap 22 H BUN 45 H Creatinine 1.62 H Est GFR ( Amer) 59 L Est GFR (Non-Af Amer) 48 L Glucose 987 H* Hemoglobin A1c % Magnesium 2.4 H Alkaline Phosphatase 205 H Creatine Kinase 315 H CK-MB (CK-2) Lipase 3883.8 H Urine Protein 30 H Urine Glucose (UA) >=500 H Urine Ketones 20 H Urine Blood MODERATE H 08/28/18 08/28/18 09:27 09:27 RBC Hgb Hct MCH MCHC RDW Seg Neutrophils % Lymphocytes % Absolute Neutrophils Sodium Potassium Chloride Carbon Dioxide Anion Gap BUN Creatinine Est GFR ( Amer) Est GFR (Non-Af Amer) Glucose Hemoglobin A1c % > 14.0 H Magnesium Alkaline Phosphatase Creatine Kinase CK-MB (CK-2) 10.30 H Lipase Urine Protein Urine Glucose (UA) Urine Ketones Urine Blood - EKG Interpretation by Me EKG shows normal: Sinus rhythm, [place], Intervals, QRS Complexes, ST-T Waves Rate: Normal - 93 Rhythm: NSR [place]/QRS: IVCD - Consults Yesica Naranjo [employer] Time consulted: 10:30 Consulted provider: will come to ER Critical Care Note - Critical Care Note Total time excluding time spent on procedures (mins): 40 Discharge - Discharge Clinical Impression: Noncompliance, Gastroparesis, Hyperglycemia due to type 1 diabetes mellitus, Chronic abdominal pain Uncontrolled diabetes mellitus Qualifiers: Diabetes mellitus type: type 1 Glycemic state: with hyperglycemia Qualified Code(s): E10.65 - Type 1 diabetes mellitus with hyperglycemia DKA, type 1 Qualifiers: Diabetes mellitus complication detail: without coma Qualified Code(s): E10.10 - Type 1 diabetes mellitus with ketoacidosis without coma Pancreatitis Qualifiers: Chronicity: chronic Pancreatitis type: unspecified pancreatitis type Qualified Code(s): K86.1 - Other chronic pancreatitis Anemia Qualifiers: Anemia type: unspecified type Qualified Code(s): D64.9 - Anemia, unspecified Vomiting Qualifiers: Vomiting type: unspecified Vomiting Intractability: non-intractable Nausea presence: with nausea Qualified Code(s): R11.2 - Nausea with vomiting, unspecified Condition: Fair Disposition: ADMITTED INPATIENT Admitting Provider: Sathya (Hospitalist) Unit Admitted: [facility] Scribe Attestation: 08/28/18 08:44 I personally performed the services described in the documentation, reviewed and edited the documentation which was dictated to the scribe in my presence, and it accurately records my words and actions. I personally performed the services described in the documentation, reviewed and edited the documentation which was dictated to the scribe in my presence, and it accurately records my words and actions.
[2018-08-28 09:33] LABS: APPEARANCE,URINE SLIGHTLY-CLOUDY; BILIRUBIN,URINE NEGATIVE (NEGATIVE); COLOR,URINE YELLOW; GLUCOSE, URINE >=500 mg/dL (NEGATIVE); KETONES,URINE 20 mg/dL (NEGATIVE); LEUKOCYTE ESTERASE,URINE NEGATIVE (NEGATIVE); NITRITE,URINE NEGATIVE (NEGATIVE); PROTEIN,URINE 30 mg/dL (NEGATIVE); URINE SPECIFIC GRAVITY 1.023; UROBILINOGEN,URINE NEGATIVE mg/dL (<2.0)
[2018-08-28 09:43] LABS: ABSOLUTE BASOPHILS # (AUTO) 0.1 10^3/uL (0.0-0.2); ABSOLUTE LYMPHOCYTES (AUTO) 0.8 10^3/uL (0.5-4.7); ABSOLUTE MONOCYTES (AUTO) 0.7 10^3/uL (0.1-1.4); ABSOLUTE NEUT (AUTO) 8.9 10^3/uL (1.7-8.2); BASOPHILS % (AUTO) 0.7 % (0-2); EOSINOPHILS % (AUTO) 0.1 % (0-6); HEMOGLOBIN 10.9 g/dL (13.5-17.0); LYMPHOCYTES % (AUTO) 7.4 % (13-45); MEAN CORPUSCULAR HGB CONC 29.3 g/dL (32.0-36.0); MEAN CORPUSCULAR VOLUME 89 fl (80-97); MONOCYTES % (AUTO) 6.6 % (3-13); PLATELET COUNT 338 10^3/uL (150-450); RED BLOOD COUNT 4.18 10^6/uL (4.35-5.55); RED CELL DISTRIBUTION WIDTH 17.3 % (11.5-14.0); SEGMENTED NEUTROPHILS % (AUTO) 85.2 % (42-78); TOTAL CELLS COUNTED % (AUTO) 100 %; WHITE BLOOD COUNT 10.4 10^3/uL (4.0-10.5)
[2018-08-28 09:48] LABS: URINE AMPHETAMINES SCREEN NEGATIVE; URINE BARBITURATES SCREEN NEGATIVE; URINE BENZODIAZEPINES SCREEN NEGATIVE; URINE COCAINE SCREEN NEGATIVE; URINE MARIJUANA (THC) SCREEN NEGATIVE; URINE METHADONE SCREEN NEGATIVE; URINE PHENCYCLIDINE SCREEN NEGATIVE
[2018-08-28 09:57] LABS: ALANINE AMINOTRANSFERASE 61 U/L (21-72); ALBUMIN 3.6 g/dL (3.5-5.0); ALKALINE PHOSPHATASE 205 U/L (38-126); ASPARTATE AMINO TRANSFERASE 41 U/L (17-59); BILIRUBIN,DIRECT 0.4 mg/dL (0.0-0.4); BILIRUBIN,TOTAL 0.5 mg/dL (0.2-1.3); BLOOD UREA NITROGEN 45 mg/dL (7-20); CALCIUM 9.1 mg/dL (8.4-10.2); CREATINE KINASE 315 U/L (55-170); POTASSIUM 5.6 mmol/L (3.6-5.0); TOTAL PROTEIN 6.9 g/dL (6.3-8.2)
[2018-08-28 10:01] LABS: CHLORIDE 96 mmol/L (98-107)
[2018-08-28 10:10] LABS: TROPONIN I < 0.012 ng/mL
[2018-08-28 10:11] LABS: ANION GAP 22 (5-19)
[2018-08-28 10:13] LABS: CARBON DIOXIDE 7 mmol/L (22-30); GLUCOSE 987 mg/dL (75-110)
[2018-08-28] MEDS ORDERED: INSULIN REG, HUMAN 100 UNIT/ML 3 ML VIAL (PYX) IV ONE ×2 (10:27→12:00)
[2018-08-28] MEDS ORDERED: MORPHINE SULFATE 10 MG/ML INJ IV ONE (10:46)
[2018-08-28] MEDS ORDERED: NORMAL SALINE 1000 ML 1,000 ML IV PRN (11:44)
[2018-08-28] MEDS ORDERED: DEXTROSE 40% GEL 15 GM TUBE PO PRN ×2 (11:44)
[2018-08-28] MEDS ORDERED: GLUCAGON,HUMAN RECOMB 1 MG INJ IM PRN (11:44)
[2018-08-28] MEDS ORDERED: DEXTROSE 50%-WATER 25 GM/50 ML DISP.SYRIN IV PRN ×2 (11:44)
[2018-08-28] MEDS ORDERED: ACETAMINOPHEN 325 MG TABLET PO PRN (11:46)
[2018-08-28] MEDS ORDERED: ALBUTEROL SULFATE 0.083% NEB 2.5 MG/3 ML AMPUL NEB PRN (11:46)
[2018-08-28] MEDS: NORMAL SALINE 100 ML with INSULIN REGULAR, HUMAN 100 UNIT IV PRN ×6 (12:35→22:52)
[2018-08-28 13:04] LABS: BLOOD UREA NITROGEN 44 mg/dL (7-20); CALCIUM 8.9 mg/dL (8.4-10.2); CHLORIDE 102 mmol/L (98-107)
[2018-08-28 13:12] LABS: POTASSIUM 4.5 mmol/L (3.6-5.0)
[2018-08-28 13:13] LABS: ANION GAP 24 (5-19)
[2018-08-28 13:14] LABS: CARBON DIOXIDE 6 mmol/L (22-30); GLUCOSE 775 mg/dL (75-110)
[2018-08-28] MEDS ORDERED: POTASSI CL 20 MEQ/1/2NS 1L 20 MEQ/1,000 ML RTUINJ IV PRN (13:27)
[2018-08-28 14:12] LABS: ARTERIAL BLOOD BASE EXCESS -20.7 mmol/L; ARTERIAL BLOOD H2CO3 0.67 mmol/L (1.05-1.35); ARTERIAL BLOOD O2 SATURATION 97.9 % (94-98); ARTERIAL BLOOD PCO2 22.3 mmHg (35-45); ARTERIAL BLOOD PO2 138.1 mmHg (80-100); ARTERIAL BLOOD TOTAL CO2 7.7 mmol/L (23-27)
[2018-08-28 14:17] LABS: ARTERIAL BLOOD FIO2 21%
[2018-08-28 14:18] LABS: ARTERIAL BLOOD PH 7.12 (7.35-7.45)
[2018-08-28] MEDS: HEPARIN SOD (PORCINE) 5,000 UNIT/ML 1 ML VIAL SUBCUT SCH ×2 (14:56→21:06)
[2018-08-28] MEDS: PROMETHAZINE HCL INJ 25 MG/1 ML VIAL IV PRN ×2 (15:00→21:06)
--- NOTE | 2018-08-28 15:51 | PDOC H&P ---
History of Present Illness Admission Date/PCP: 08/28/18 11:31 Patient complains of: Nausea, vomiting, high blood sugar History of Present Illness: CHESTER MCKEON is a 38 year old male with a past medical history significant for type 1 diabetes mellitus with frequent DKA, Pancreatitis, polysubstance abuse, and tobacco dependence who presented to the emergency department today with a complaint of nausea, vomiting, adiarrhea, nd uncontrolled blood sugars. The p atient denies recent illnesses or having missed medications. He denies any known precipitating factors. Evaluation in the emergency department revealed DKA with Sodium 124, potassium 5.6, bicarb 7, anion gap 22, glucose 987, EVE with creatinine 1.62 and BUN 45, lipase of 3800, negative UDS, and EKG demonstrating sinus rhythm. Patient received IV fluid boluses and was placed on insulin drip. He is referred to the hospitalist service for admission and management of DKA with pancreatitis. Past Medical History Cardiac Medical History: Reports: Hyperlipidema, Hypertension Denies: Coronary Artery Disease, Myocardial Infarction Pulmonary Medical History: Denies: Asthma, Chronic Obstructive Pulmonary Disease (COPD), Sleep Apnea Neurological Medical History: Denies: Migraine, Seizures Endocrine Medical History: Reports: Diabetes Mellitus Type 1 Denies: Hyperthyroidism, Hypothyroidism Renal/ Medical History: Denies: End Stage Renal Disease GI Medical History: Reports: Gastroesophageal Reflux Disease Denies: Cirrhosis, Hepatitis Musculoskeltal Medical History: Denies: Arthritis, Fibromyalgia Skin Medical History: Denies: Eczema, Psoriasis Psychiatric Medical History: Reports: Depression, Substance Abuse, Tobacco Dependency Hematology: Reports: Anemia Denies: Bleeding Tendencies Infectious Medical History: Reports: Methicillin-Resistant Staph Aureus Denies: Clostridium Difficile Past Surgical History Past Surgical History: Reports: Orthopedic Surgery - back, left long finger PIP disarticulation, right hand I&D Denies: Appendectomy, Cholecystectomy, Tonsillectomy Social History Information Source: Patient Lives with: Family Smoking Status: Current Some Day Smoker Cigarettes Packs Per Day: 1 Number of Years Smokin Frequency of Alcohol Use: None Hx Recreational Drug Use: Yes Drugs: Marijuana Hx Prescription Drug Abuse: No - Advance Directive Resuscitation Status: Full Code Family History Family History: DM, Hyperlipidemia, Hypertension Parental Family History Reviewed: Yes Children Family History Reviewed: Yes Sibling(s) Family History Reviewed.: Yes Medication/Allergy Home Medications: Ferrous Sulfate [Feosol 325 mg Tablet] 325 mg PO BID 08/28/18 Gabapentin [Neurontin 100 mg Capsule] 200 mg PO Q6 08/28/18 Insulin Glargine,Hum.rec.anlog [Lantus Insulin 100 Unit/1 ml 10 ml] 30 unit SUBCUT Q12 08/28/18 Lipase/Protease/Amylase [Pancreaze-10 Capsule.Dr] 1 cap PO BID 08/28/18 Metoclopramide HCl [Reglan 10 mg Tablet] 10 mg PO Q8HP PRN 08/28/18 NPH, Human Insulin Isophane [Novolin N (NPH) Insulin 100 unit/mL] 0 unit SUBCUT .PERSLDSCALE 08/28/18 Pantoprazole Sodium [Protonix] 40 mg PO Q6AM 08/28/18 Allergies/Adverse Reactions: ondansetron [From Zofran (as hydrochloride)] Allergy (Verified 08/28/18 08:13) Review of Systems Constitutional: PRESENT: anorexia, headache(s), weakness. ABSENT: chills, fev er(s), weight gain, weight loss Eyes: ABSENT: visual disturbances Ears: ABSENT: hearing changes Cardiovascular: ABSENT: chest pain, dyspnea on exertion, edema, orthropnea, palpitations Respiratory: ABSENT: cough, hemoptysis Gastrointestinal: PRESENT: diarrhea, nausea, vomiting. ABSENT: abdominal pain, constipation, hematemesis, hematochezia Genitourinary: ABSENT: dysuria, hematuria Musculoskeletal: ABSENT: joint swelling Integumentary: ABSENT: rash, wounds Neurological: ABSENT: abnormal gait, abnormal speech, confusion, dizziness, focal weakness, syncope Psychiatric: ABSENT: anxiety, depression, homidical ideation, suicidal ideation Endocrine: PRESENT: polydipsia, polyuria. ABSENT: cold intolerance, heat intolerance Hematologic/Lymphatic: ABSENT: easy bleeding, easy bruising Physical Exam Vital Signs: Temp Pulse Resp BP Pulse Ox 98.2 F 92 12 112/64 100 08/28/18 12:15 08/28/18 08:17 08/28/18 11:59 08/28/18 12:00 08/28/18 11:59 Intake & Output 08/27/18 08/28/18 08/29/18 06:59 06:59 06:59 Intake Total 3006 Balance 3006 Weight 66.7 kg General appearance: PRESENT: mild distress, thin, well-developed, well-nourished Head exam: PRESENT: atraumatic, normocephalic Eye exam: PRESENT: conjunctiva pink, EOMI, PERRLA. ABSENT: scleral icterus Ear exam: PRESENT: normal external ear exam Mouth exam: PRESENT: dry mucosa, tongue midline Neck exam: ABSENT: carotid bruit, JVD, lymphadenopathy, thyromegaly Respiratory exam: PRESENT: clear to auscultation alfonso, symmetrical, unlabored, other. ABSENT: rales, rhonchi, wheezes Cardiovascular exam: PRESENT: RRR, +S1, tachycardia. ABSENT: diastolic murmur, rubs, systolic murmur Pulses: PRESENT: normal dorsalis pedis pul Vascular exam: PRESENT: normal capillary refill GI/Abdominal exam: PRESENT: hypoactive bowel sounds, soft, tenderness. ABSENT: distended, guarding, mass, organolmegaly, rebound Rectal exam: PRESENT: deferred Extremities exam: PRESENT: full ROM. ABSENT: calf tenderness, clubbing, pedal edema Neurological exam: PRESENT: alert, awake, oriented to person, oriented to place, oriented to time, oriented to situation, CN II-XII grossly intact. ABSENT: motor sensory deficit Psychiatric exam: PRESENT: appropriate affect, normal mood. ABSENT: homicidal ideation, suicidal ideation Skin exam: PRESENT: dry, intact, warm. ABSENT: cyanosis, rash Results Laboratory Results: 08/28/18 09:27 08/28/18 12:28 08/28/18 08/28/18 08/28/18 09:17 09:27 09:27 WBC 10.4 RBC 4.18 L Hgb 10.9 L Hct 37.0 L MCV 89 MCH 26.0 L MCHC 29.3 L RDW 17.3 H Plt Count 338 Seg Neutrophils % 85.2 H Lymphocytes % 7.4 L Monocytes % 6.6 Eosinophils % 0.1 Basophils % 0.7 Absolute Neutrophils 8.9 H Absolute Lymphocytes 0.8 Absolute Monocytes 0.7 Absolute Eosinophils 0.0 Absolute Basophils 0.1 Carbonic Acid HCO3/H2CO3 Ratio ABG pH ABG pCO2 ABG pO2 ABG HCO3 ABG O2 Saturation ABG Base Excess FiO2 Sodium 125.4 L Potassium 5.6 H Chloride 96 L Carbon Dioxide 7 L* Anion Gap 22 H BUN 45 H Creatinine 1.62 H Est GFR ( Amer) 59 L Est GFR (Non-Af Amer) 48 L Glucose 987 H* Lactic Acid Calcium 9.1 Magnesium 2.4 H Total Bilirubin 0.5 AST 41 ALT 61 Alkaline Phosphatase 205 H Total Protein 6.9 Albumin 3.6 Lipase 3883.8 H Urine Color YELLOW Urine Appearance SLIGHTLY-CLOUDY Urine pH 5.0 Ur Specific [place] 1.023 Urine Protein 30 H Urine Glucose (UA) >=500 H Urine Ketones 20 H Urine Blood MODERATE H Urine Nitrite NEGATIVE Ur Leukocyte Esterase NEGATIVE Urine WBC (Auto) 2 Urine RBC (Auto) 0 08/28/18 08/28/18 08/28/18 09:27 12:28 13:58 WBC RBC Hgb Hct MCV MCH MCHC RDW Plt Count Seg Neutrophils % Lymphocytes % Monocytes % Eosinophils % Basophils % Absolute Neutrophils Absolute Lymphocytes Absolute Monocytes Absolute Eosinophils Absolute Basophils Carbonic Acid 0.67 L HCO3/H2CO3 Ratio 10:1 ABG pH 7.12 L* ABG pCO2 22.3 L ABG pO2 138.1 H ABG HCO3 7.0 L ABG O2 Saturation 97.9 ABG Base Excess -20.7 FiO2 21% Sodium 131.8 L Potassium 4.5 D Chloride 102 Carbon Dioxide 6 L* Anion Gap 24 H BUN 44 H Creatinine 1.45 H Est GFR ( Amer) > 60 Est GFR (Non-Af Amer) 55 L Glucose 775 H* Lactic Acid 1.3 Calcium 8.9 Magnesium Total Bilirubin AST ALT Alkaline Phosphatase Total Protein Albumin Lipase Urine Color Urine Appearance Urine pH Ur Specific [place] Urine Protein Urine Glucose (UA) Urine Ketones Urine Blood Urine Nitrite Ur Leukocyte Esterase Urine WBC (Auto) Urine RBC (Auto) 08/28/18 08/28/18 09:27 09:27 Creatine Kinase 315 H CK-MB (CK-2) 10.30 H Troponin I < 0.012 Assessment and Plan - Diagnosis (1) DKA, type 1 Qualifiers: Diabetes mellitus complication detail: without coma Qualified Code(s): E10.10 - Type 1 diabetes mellitus with ketoacidosis without coma Is this a current diagnosis for this admission?: Yes Plan: Patient is admitted to the [facility] on continuous cardiac telemetry. Provided aggressive IV fluid resuscitation. Received insulin 10 units IV x1 followed by insulin drip; titrate per protocol. Serial chemistries. N.p.o. Antiemetics as needed. Patient educator, navigator, and financial planner are consulted. (2) Pancreatitis Qualifiers: Chronicity: chronic Pancreatitis type: unspecified pancreatitis type Qualified Code(s): K86.1 - Other chronic pancreatitis Is this a current diagnosis for this admission?: Yes Plan: Acute on chronic pancreatitis; lipase 3800. Patient presented with complaint of abdominal discomfort, nausea, vomiting, diarrhea, and uncontrolled blood sugars. Placed in n.p.o. status. Aggressive IV fluid rehydration. Analgesics and antiemetics as needed. (3) Acute kidney injury Is this a current diagnosis for this admission?: Yes Plan: Secondary to DKA. IV fluids as above. Serial chemistries. Avoid nephrotoxic medications as able. (4) Nausea and vomiting Qualifiers: Vomiting type: unspecified Vomiting Intractability: non-intractable Qualified Code(s): R11.2 - Nausea with vomiting, unspecified Is this a current diagnosis for this admission?: Yes Plan: Secondary to #1 and #2. Antiemetics as needed. N.p.o. (5) Tobacco dependency Is this a current diagnosis for this admission?: Yes Plan: Smoking cessation encouraged, nicotine or placement therapies provided. - Time Time Spent with patient: 35 or more minutes Medications reviewed and adjusted accordingly: Yes Anticipated discharge: Home Within: within 72 hours - Inpatient Certification Based on my medical assessment, after consideration of the patient's comorbidities, presenting symptoms, or acuity I expect that the services needed warrant INPATIENT care.: Yes I certify that my determination is in accordance with my understanding of Medicare's requirements for reasonable and necessary INPATIENT services [42 CFR 412.3e].: Yes Medical Necessity: Need Close Monitoring Due to Risk of Patient Decompensation, Need For IV Fluids, Need For Continuous Telemetry Monitoring
--- NOTE | 2018-08-28 16:04 | EKG REPORT ---
SEVERITY:- ABNORMAL ECG - SINUS RHYTHM NONSPECIFIC INTRAVENTRICULAR CONDUCTION DELAY : Confirmed by: Juan Pablo Holm MD 28-Aug-2018 16:04:05
[2018-08-28 17:07] LABS: BLOOD UREA NITROGEN 41 mg/dL (7-20); CALCIUM 8.7 mg/dL (8.4-10.2); CHLORIDE 109 mmol/L (98-107); POTASSIUM 4.5 mmol/L (3.6-5.0)
[2018-08-28 17:13] LABS: ANION GAP 18 (5-19)
[2018-08-28 17:20] LABS: CARBON DIOXIDE 8 mmol/L (22-30); GLUCOSE 477 mg/dL (75-110)
[2018-08-28] MEDS: MORPHINE SULFATE 10 MG/ML INJ IV PRN (21:07)
[2018-08-28 21:15] LABS: ANION GAP 11 (5-19); BLOOD UREA NITROGEN 39 mg/dL (7-20); CALCIUM 8.7 mg/dL (8.4-10.2); CHLORIDE 115 mmol/L (98-107); GLUCOSE 232 mg/dL (75-110); POTASSIUM 4.6 mmol/L (3.6-5.0)
[2018-08-28 21:35] LABS: CARBON DIOXIDE 9 mmol/L (22-30)
[2018-08-28] MEDS: POTASSI CL 20 MEQ/D5-1/2NS 1L 1000 ML IV PRN (22:52)
[2018-08-29 01:08] LABS: ANION GAP 6 (5-19); BLOOD UREA NITROGEN 34 mg/dL (7-20); CALCIUM 8.5 mg/dL (8.4-10.2); CARBON DIOXIDE 15 mmol/L (22-30); CHLORIDE 116 mmol/L (98-107); GLUCOSE 174 mg/dL (75-110); POTASSIUM 3.9 mmol/L (3.6-5.0)
[2018-08-29] MEDS: PROMETHAZINE HCL INJ 25 MG/1 ML VIAL IV PRN ×4 (01:16→22:32)
[2018-08-29] MEDS: MORPHINE SULFATE 10 MG/ML INJ IV PRN ×4 (01:16→22:33)
[2018-08-29] MEDS ORDERED: POTASSIUM CHLORIDE 10 MEQ CAPSULE.ER PO ONE (01:34)
[2018-08-29] MEDS: POTASSI CL 20 MEQ/D5-1/2NS 1L 1000 ML IV PRN ×2 (04:03→09:42)
[2018-08-29 04:59] LABS: ABSOLUTE LYMPHOCYTES (AUTO) 1.1 10^3/uL (0.5-4.7); ABSOLUTE MONOCYTES (AUTO) 0.8 10^3/uL (0.1-1.4); ABSOLUTE NEUT (AUTO) 9.9 10^3/uL (1.7-8.2); BASOPHILS % (AUTO) 0.4 % (0-2); EOSINOPHILS % (AUTO) 0.2 % (0-6); HEMATOCRIT 30.7 % (37.9-51.0); HEMOGLOBIN 9.9 g/dL (13.5-17.0); LYMPHOCYTES % (AUTO) 9.3 % (13-45); MEAN CORPUSCULAR HEMOGLOBIN 25.9 pg (27.0-33.4); MEAN CORPUSCULAR HGB CONC 32.1 g/dL (32.0-36.0); MONOCYTES % (AUTO) 6.7 % (3-13); PLATELET COUNT 322 10^3/uL (150-450); RED BLOOD COUNT 3.81 10^6/uL (4.35-5.55); RED CELL DISTRIBUTION WIDTH 16.1 % (11.5-14.0); SEGMENTED NEUTROPHILS % (AUTO) 83.4 % (42-78); TOTAL CELLS COUNTED % (AUTO) 100 %; WHITE BLOOD COUNT 11.8 10^3/uL (4.0-10.5)
[2018-08-29] MEDS: HEPARIN SOD (PORCINE) 5,000 UNIT/ML 1 ML VIAL SUBCUT SCH ×3 (05:01→21:12)
[2018-08-29 05:18] LABS: ANION GAP 9 (5-19); BLOOD UREA NITROGEN 31 mg/dL (7-20); CALCIUM 8.6 mg/dL (8.4-10.2); CARBON DIOXIDE 13 mmol/L (22-30); CHLORIDE 116 mmol/L (98-107); GLUCOSE 113 mg/dL (75-110); POTASSIUM 3.8 mmol/L (3.6-5.0)
[2018-08-29 05:27] LABS: MEAN CORPUSCULAR VOLUME 81 fl (80-97)
[2018-08-29] MEDS: NORMAL SALINE 100 ML with INSULIN REGULAR, HUMAN 100 UNIT IV PRN ×2 (08:55)
[2018-08-29 09:10] LABS: ANION GAP 6 (5-19); BLOOD UREA NITROGEN 28 mg/dL (7-20); CALCIUM 8.6 mg/dL (8.4-10.2); CARBON DIOXIDE 16 mmol/L (22-30); CHLORIDE 116 mmol/L (98-107); GLUCOSE 83 mg/dL (75-110); POTASSIUM 4.2 mmol/L (3.6-5.0)
[2018-08-29] MEDS ORDERED: PANTOPRAZOLE SODIUM 40 MG VIAL IV SCH (10:00)
[2018-08-29] MEDS ORDERED: DEXTROSE 50%-WATER 25 GM/50 ML DISP.SYRIN IV PRN ×2 (10:14)
[2018-08-29] MEDS ORDERED: DEXTROSE 40% GEL 15 GM TUBE PO PRN ×2 (10:14)
[2018-08-29] MEDS ORDERED: GLUCAGON,HUMAN RECOMB 1 MG INJ IM PRN (10:14)
--- NOTE | 2018-08-29 10:27 | PDOC PROGRESS REPORT ---
Subjective Progress Note for:: 08/29/18 Subjective:: CHESTER MCKEON is a 38 year old male with a past medical history significant for type 1 diabetes mellitus with frequent DKA, Pancreatitis, polysubstance abuse, and tobacco dependence who presented to the emergency department today with a complaint of nausea, vomiting, adiarrhea, nd uncontrolled blood sugars. The patient denies recent illnesses or having missed medications. He denies any known precipitating factors. He is seen this morning resting in bed. He is awake, alert, oriented x3. He denies any chest pain, shortness of breath or dyspnea at rest. He complains of nausea and continued abdominal discomfort. His abdominal discomfort is diffuse. He denies any vomiting or diarrhea. He denies any dysuria. He denies any fever chills or night. He denies any significant arthralgias or myalgias. Remaining review of systems are negative. Reason For Visit: DKA,PANCREATITIS Physical Exam Vital Signs: Temp Pulse Resp BP Pulse Ox 98.5 F 91 20 126/84 H 100 08/29/18 08:10 08/29/18 08:10 08/29/18 08:10 08/29/18 08:10 08/29/18 08:10 Intake & Output 08/28/18 08/29/18 08/30/18 06:59 06:59 06:59 Intake Total 4164 Output Total 875 Balance 3289 Weight 69.9 kg General appearance: PRESENT: no acute distress, thin, well-developed Head exam: PRESENT: atraumatic, normocephalic Eye exam: PRESENT: conjunctiva pink, EOMI, PERRLA. ABSENT: scleral icterus Ear exam: PRESENT: normal external ear exam Mouth exam: PRESENT: moist, tongue midline Neck exam: ABSENT: carotid bruit, JVD, lymphadenopathy, thyromegaly Respiratory exam: PRESENT: clear to auscultation alfonso. ABSENT: rales, rhonchi, wheezes Cardiovascular exam: PRESENT: RRR. ABSENT: diastolic murmur, rubs, systolic murmur Pulses: PRESENT: normal dorsalis pedis pul Vascular exam: PRESENT: normal capillary refill GI/Abdominal exam: PRESENT: normal bowel sounds, soft, tenderness - Epigastric Rectal exam: PRESENT: deferred Extremities exam: PRESENT: full ROM. ABSENT: calf tenderness, clubbing, pedal edema Neurological exam: PRESENT: alert, awake, oriented to person, oriented to place, oriented to time, oriented to situation, CN II-XII grossly intact. ABSENT: motor sensory deficit Psychiatric exam: PRESENT: flat affect Skin exam: PRESENT: dry, intact, warm. ABSENT: cyanosis, rash Results Laboratory Results: 08/29/18 04:32 08/28/18 08/28/18 08/28/18 09:17 09:27 09:27 WBC 10.4 RBC 4.18 L Hgb 10.9 L Hct 37.0 L MCV 89 MCH 26.0 L MCHC 29.3 L RDW 17.3 H Plt Count 338 Seg Neutrophils % 85.2 H Lymphocytes % 7.4 L Monocytes % 6.6 Eosinophils % 0.1 Basophils % 0.7 Absolute Neutrophils 8.9 H Absolute Lymphocytes 0.8 Absolute Monocytes 0.7 Absolute Eosinophils 0.0 Absolute Basophils 0.1 Carbonic Acid HCO3/H2CO3 Ratio ABG pH ABG pCO2 ABG pO2 ABG HCO3 ABG O2 Saturation ABG Base Excess FiO2 Sodium 125.4 L Potassium 5.6 H Chloride 96 L Carbon Dioxide 7 L* Anion Gap 22 H BUN 45 H Creatinine 1.62 H Est GFR ( Amer) 59 L Est GFR (Non-Af Amer) 48 L Glucose 987 H* Lactic Acid Calcium 9.1 Magnesium 2.4 H Total Bilirubin 0.5 AST 41 ALT 61 Alkaline Phosphatase 205 H Total Protein 6.9 Albumin 3.6 Lipase 3883.8 H Urine Color YELLOW Urine Appearance SLIGHTLY-CLOUDY Urine pH 5.0 Ur Specific [place] 1.023 Urine Protein 30 H Urine Glucose (UA) >=500 H Urine Ketones 20 H Urine Blood MODERATE H Urine Nitrite NEGATIVE Ur Leukocyte Esterase NEGATIVE Urine WBC (Auto) 2 Urine RBC (Auto) 0 08/28/18 08/28/18 08/28/18 09:27 12:28 13:58 WBC RBC Hgb Hct MCV MCH MCHC RDW Plt Count Seg Neutrophils % Lymphocytes % Monocytes % Eosinophils % Basophils % Absolute Neutrophils Absolute Lymphocytes Absolute Monocytes Absolute Eosinophils Absolute Basophils Carbonic Acid 0.67 L HCO3/H2CO3 Ratio 10:1 ABG pH 7.12 L* ABG pCO2 22.3 L ABG pO2 138.1 H ABG HCO3 7.0 L ABG O2 Saturation 97.9 ABG Base Excess -20.7 FiO2 21% Sodium 131.8 L Potassium 4.5 D Chloride 102 Carbon Dioxide 6 L* Anion Gap 24 H BUN 44 H Creatinine 1.45 H Est GFR ( Amer) > 60 Est GFR (Non-Af Amer) 55 L Glucose 775 H* Lactic Acid 1.3 Calcium 8.9 Magnesium Total Bilirubin AST ALT Alkaline Phosphatase Total Protein Albumin Lipase Urine Color Urine Appearance Urine pH Ur Specific [place] Urine Protein Urine Glucose (UA) Urine Ketones Urine Blood Urine Nitrite Ur Leukocyte Esterase Urine WBC (Auto) Urine RBC (Auto) 08/28/18 08/28/18 08/29/18 16:35 20:35 00:40 WBC RBC Hgb Hct MCV MCH MCHC RDW Plt Count Seg Neutrophils % Lymphocytes % Monocytes % Eosinophils % Basophils % Absolute Neutrophils Absolute Lymphocytes Absolute Monocytes Absolute Eosinophils Absolute Basophils Carbonic Acid HCO3/H2CO3 Ratio ABG pH ABG pCO2 ABG pO2 ABG HCO3 ABG O2 Saturation ABG Base Excess FiO2 Sodium 135.3 L 134.8 L 136.8 L Potassium 4.5 4.6 3.9 Chloride 109 H 115 H 116 H Carbon Dioxide 8 L* 9 L* 15 L Anion Gap 18 11 6 BUN 41 H 39 H 34 H Creatinine 1.46 H 1.25 1.13 Est GFR ( Amer) > 60 > 60 > 60 Est GFR (Non-Af Amer) 55 L > 60 > 60 Glucose 477 H* 232 H 174 H Lactic Acid Calcium 8.7 8.7 8.5 Magnesium Total Bilirubin AST ALT Alkaline Phosphatase Total Protein Albumin Lipase Urine Color Urine Appearance Urine pH Ur Specific [place] Urine Protein Urine Glucose (UA) Urine Ketones Urine Blood Urine Nitrite Ur Leukocyte Esterase Urine WBC (Auto) Urine RBC (Auto) 08/29/18 08/29/18 04:32 04:32 WBC 11.8 H RBC 3.81 L Hgb 9.9 L Hct 30.7 L MCV 81 D MCH 25.9 L MCHC 32.1 RDW 16.1 H Plt Count 322 Seg Neutrophils % 83.4 H Lymphocytes % 9.3 L Monocytes % 6.7 Eosinophils % 0.2 Basophils % 0.4 Absolute Neutrophils 9.9 H Absolute Lymphocytes 1.1 Absolute Monocytes 0.8 Absolute Eosinophils 0.0 Absolute Basophils 0.0 Carbonic Acid HCO3/H2CO3 Ratio ABG pH ABG pCO2 ABG pO2 ABG HCO3 ABG O2 Saturation ABG Base Excess FiO2 Sodium 137.8 Potassium 3.8 Chloride 116 H Carbon Dioxide 13 L Anion Gap 9 BUN 31 H Creatinine 1.07 Est GFR ( Amer) > 60 Est GFR (Non-Af Amer) > 60 Glucose 113 H Lactic Acid Calcium 8.6 Magnesium Total Bilirubin AST ALT Alkaline Phosphatase Total Protein Albumin Lipase Urine Color Urine Appearance Urine pH Ur Specific [place] Urine Protein Urine Glucose (UA) Urine Ketones Urine Blood Urine Nitrite Ur Leukocyte Esterase Urine WBC (Auto) Urine RBC (Auto) 08/28/18 08/28/18 09:27 09:27 Creatine Kinase 315 H CK-MB (CK-2) 10.30 H Troponin I < 0.012 Assessment and Plan - Diagnosis (1) DKA, type 1 Qualifiers: Diabetes mellitus complication detail: without coma Qualified Code(s): E10.10 - Type 1 diabetes mellitus with ketoacidosis without coma Is this a current diagnosis for this admission?: Yes Plan: Patient is admitted to the [facility] on continuous cardiac telemetry. Provided aggressive IV fluid resuscitation. Received insulin 10 units IV x1 followed by insulin drip; titrate per protocol. Serial chemistries. Gap is closed. Bicarb still on the low side. We will continue IV hydration until he is taking p.o. better. He has had some hypoglycemia will stop IV insulin instruction to transition sliding scale. He cannot tell me how much insulin he takes at home. He has had a history of long noncompliance with this and repeated admissions for DKA. Antiemetics as needed. Patient educator, navigator, and train planner are consulted. (2) Gastroparesis Is this a current diagnosis for this admission?: Yes Plan: He has had no vomiting. Continue Reglan and Zofran. (3) Hyperglycemia due to type 1 diabetes mellitus Is this a current diagnosis for this admission?: Yes Plan: Resolved with IV insulin. Will transition to sliding scale coverage for now. (4) Noncompliance Is this a current diagnosis for this admission?: Yes Plan: He has been counseled numerous times. Continue to attempt to educate regarding the importance of this. (5) Pancreatitis Qualifiers: Chronicity: chronic Pancreatitis type: unspecified pancreatitis type Qualified Code(s): K86.1 - Other chronic pancreatitis Is this a current diagnosis for this admission?: Yes Plan: Continue IV hydration. Continue IV antiemetics and pain medication (6) Uncontrolled diabetes mellitus Qualifiers: Diabetes mellitus type: type 1 Glycemic state: with hyperglycemia Qualified Code(s): E10.65 - Type 1 diabetes mellitus with hyperglycemia Is this a current diagnosis for this admission?: Yes Plan: Gap is closing. His last her Chemstrips have been low. We will stop IV insulin and transition to sliding scale coverage. He cannot tell me how much insulin he takes at home. He has had a long history of noncompliance with insulin. We will continue IV fluids until he is taking oral adequately. (7) Anemia Qualifiers: Anemia type: unspecified type Qualified Code(s): D64.9 - Anemia, unspecified Is this a current diagnosis for this admission?: Yes Plan: Stable. (8) Chronic abdominal pain Is this a current diagnosis for this admission?: Yes - Time Time Spent with patient: 25-34 minutes Medications reviewed and adjusted accordingly: Yes Anticipated discharge: Home Within: within 48 hours - Inpatient Certification Based on my medical assessment, after consideration of the patient's comorbidities, presenting symptoms, or acuity I expect that the services needed warrant INPATIENT care.: Yes I certify that my determination is in accordance with my understanding of Medicare's requirements for reasonable and necessary INPATIENT services [42 CFR 412.3e].: Yes Medical Necessity: Significant Comorbidiites Make Outpatient Treatment Too Risky, Need Close Monitoring Due to Risk of Patient Decompensation, Need For IV Fluids, Risk of Complication if Not Cared For in Hospital
[2018-08-29 13:24] LABS: ANION GAP 8 (5-19); BLOOD UREA NITROGEN 25 mg/dL (7-20); CALCIUM 8.7 mg/dL (8.4-10.2); CARBON DIOXIDE 15 mmol/L (22-30); CHLORIDE 114 mmol/L (98-107); GLUCOSE 178 mg/dL (75-110); POTASSIUM 4.3 mmol/L (3.6-5.0)
[2018-08-29 17:35] LABS: ANION GAP 10 (5-19); BLOOD UREA NITROGEN 21 mg/dL (7-20); CALCIUM 8.7 mg/dL (8.4-10.2); CARBON DIOXIDE 14 mmol/L (22-30); CHLORIDE 110 mmol/L (98-107); POTASSIUM 4.9 mmol/L (3.6-5.0)
[2018-08-29 17:40] LABS: GLUCOSE 391 mg/dL (75-110)
[2018-08-29] MEDS: INSULIN LISPRO 100 UNIT/ML 3 ML VIAL SUBCUT SCH ×2 (18:12→22:25)
[2018-08-29 20:36] LABS: ANION GAP 8 (5-19); BLOOD UREA NITROGEN 21 mg/dL (7-20); CALCIUM 8.5 mg/dL (8.4-10.2); CARBON DIOXIDE 15 mmol/L (22-30); CHLORIDE 110 mmol/L (98-107); GLUCOSE 377 mg/dL (75-110); POTASSIUM 4.3 mmol/L (3.6-5.0)
[2018-08-29] MEDS ORDERED: INSULIN LISPRO 100 UNIT/ML 3 ML VIAL SUBCUT SCH (22:00)
[2018-08-30 00:52] LABS: ANION GAP 9 (5-19); BLOOD UREA NITROGEN 19 mg/dL (7-20); CALCIUM 9.3 mg/dL (8.4-10.2); CARBON DIOXIDE 17 mmol/L (22-30); CHLORIDE 112 mmol/L (98-107); GLUCOSE 244 mg/dL (75-110); POTASSIUM 4.2 mmol/L (3.6-5.0)
[2018-08-30] MEDS: MORPHINE SULFATE 10 MG/ML INJ IV PRN (03:01)
[2018-08-30] MEDS: PROMETHAZINE HCL INJ 25 MG/1 ML VIAL IV PRN (03:01)
[2018-08-30] MEDS: HEPARIN SOD (PORCINE) 5,000 UNIT/ML 1 ML VIAL SUBCUT SCH ×3 (05:01→21:39)
[2018-08-30 05:22] LABS: ANION GAP 9 (5-19); BLOOD UREA NITROGEN 22 mg/dL (7-20); CALCIUM 8.7 mg/dL (8.4-10.2); CARBON DIOXIDE 15 mmol/L (22-30); CHLORIDE 111 mmol/L (98-107); GLUCOSE 345 mg/dL (75-110); POTASSIUM 4.5 mmol/L (3.6-5.0)
[2018-08-30] MEDS ORDERED: INSULIN LISPRO 100 UNIT/ML 3 ML VIAL SUBCUT SCH (08:00)
[2018-08-30] MEDS: INSULIN LISPRO 100 UNIT/ML 3 ML VIAL SUBCUT SCH ×4 (08:14→21:42)
--- NOTE | 2018-08-30 08:32 | PDOC PROGRESS REPORT ---
Subjective Progress Note for:: 08/30/18 Subjective:: Patient is diabetic brittle who was admitted for DKA patient's blood sugars are being maintained with a sliding scale patient is complaining of abdominal pain, however this is not a new finding. Reason For Visit: DKA,PANCREATITIS Physical Exam Vital Signs: Temp Pulse Resp BP Pulse Ox 97.4 F 91 12 119/76 100 08/30/18 04:02 08/30/18 07:00 08/30/18 04:02 08/30/18 04:02 08/30/18 04:02 Intake & Output 08/29/18 08/30/18 08/31/18 06:59 06:59 06:59 Intake Total 4164 2672 Output Total 875 1100 Balance 3289 1572 Weight 69.9 kg 69.3 kg General appearance: PRESENT: no acute distress, cooperative, thin, well- developed, well-nourished Head exam: PRESENT: atraumatic, normocephalic Eye exam: PRESENT: PERRLA GI/Abdominal exam: PRESENT: soft, other - Patient has no rebound has slight generalized tenderness. Extremities exam: PRESENT: full ROM. ABSENT: calf tenderness, clubbing, pedal edema Neurological exam: PRESENT: alert, altered, awake, oriented to person, oriented to place, oriented to time, oriented to situation, CN II-XII grossly intact Psychiatric exam: PRESENT: appropriate affect, normal mood. ABSENT: homicidal ideation, suicidal ideation Skin exam: PRESENT: dry, intact, warm. ABSENT: cyanosis, rash Results Laboratory Results: 08/29/18 04:32 08/30/18 04:09 08/29/18 08/29/18 08/29/18 08:14 12:29 16:48 Sodium 138.0 136.7 L 133.8 L Potassium 4.2 4.3 4.9 Chloride 116 H 114 H 110 H Carbon Dioxide 16 L 15 L 14 L Anion Gap 6 8 10 BUN 28 H 25 H 21 H Creatinine 1.05 1.03 0.95 Est GFR ( Amer) > 60 > 60 > 60 Est GFR (Non-Af Amer) > 60 > 60 > 60 Glucose 83 178 H 391 H Calcium 8.6 8.7 8.7 08/29/18 08/30/18 08/30/18 20:10 00:22 04:09 Sodium 133.2 L 138.1 135.2 L Potassium 4.3 4.2 4.5 Chloride 110 H 112 H 111 H Carbon Dioxide 15 L 17 L 15 L Anion Gap 8 9 9 BUN 21 H 19 22 H Creatinine 1.10 1.10 0.97 Est GFR ( Amer) > 60 > 60 > 60 Est GFR (Non-Af Amer) > 60 > 60 > 60 Glucose 377 H 244 H 345 H Calcium 8.5 9.3 8.7 08/28/18 08/28/18 09:27 09:27 Creatine Kinase 315 H CK-MB (CK-2) 10.30 H Troponin I < 0.012 Assessment and Plan - Diagnosis (1) Chronic abdominal pain Is this a current diagnosis for this admission?: Yes Plan: Will change IV Protonix to p.o. Protonix, add Reglan which the patient has taken before. Will DC morphine, will change diet to less aggressive plan. Patient was told that all of his pain will not be relieved prior to discharge. (2) DKA, type 1 Qualifiers: Diabetes mellitus complication detail: without coma Qualified Code(s): E10.10 - Type 1 diabetes mellitus with ketoacidosis without coma Is this a current diagnosis for this admission?: Yes Plan: Patient is admitted to the [facility] on continuous cardiac telemetry. Provided aggressive IV fluid resuscitation. Received insulin 10 units IV x1 followed by insulin drip; titrate per protocol. Serial chemistries. Gap is closed. Bicarb still on the low side. We will continue IV hydration until he is taking p.o. better. He has had some hypoglycemia will stop IV insulin instruction to transition sliding scale. He cannot tell me how much insulin he takes at home. He has had a history of long noncompliance with this and repeated admissions for DKA. Antiemetics as needed. Patient educator, navigator, and turnaround planner are consulted. 08/30/2018 patient cannot be discharged today due to continued abdominal pain, though this is not a new finding for the patient patient will be switched over to p.o. medications today. Patient will have his diet changed to an easier tolerated diet She was told that he will be discharged and probably have pain even at the time of discharge. Patient's labs appear to be stable, glucose is fluctuating which is not new for this patient. Patient's finances were also discussed today, patient was told he will probably be discharged tomorrow medically stable with (3) Gastroparesis Is this a current diagnosis for this admission?: Yes (4) Noncompliance Is this a current diagnosis for this admission?: Yes Plan: He has been counseled numerous times. Continue to attempt to educate regarding the importance of this. (5) Uncontrolled diabetes mellitus Qualifiers: Diabetes mellitus type: type 1 Glycemic state: with hyperglycemia Qualified Code(s): E10.65 - Type 1 diabetes mellitus with hyperglycemia Is this a current diagnosis for this admission?: Yes - Time Time Spent with patient: 15-24 minutes Medications reviewed and adjusted accordingly: Yes Anticipated discharge: Home Within: within 24 hours
[2018-08-30 09:04] LABS: ANION GAP 8 (5-19); BLOOD UREA NITROGEN 13 mg/dL (7-20); CALCIUM 9.4 mg/dL (8.4-10.2); CHLORIDE 92 mmol/L (98-107); GLUCOSE 179 mg/dL (75-110)
[2018-08-30 09:26] LABS: CARBON DIOXIDE 32 mmol/L (22-30)
[2018-08-30] MEDS: PANTOPRAZOLE SODIUM 40 MG TABLET.DR PO SCH (10:36)
[2018-08-30] MEDS: METOCLOPRAMIDE HCL 10 MG TABLET PO SCH ×3 (12:03→21:39)
[2018-08-30 13:49] LABS: ANION GAP 8 (5-19); BLOOD UREA NITROGEN 23 mg/dL (7-20); CALCIUM 9.3 mg/dL (8.4-10.2); CHLORIDE 110 mmol/L (98-107); GLUCOSE 354 mg/dL (75-110); POTASSIUM 4.5 mmol/L (3.6-5.0)
[2018-08-30 14:15] LABS: CARBON DIOXIDE 17 mmol/L (22-30)
[2018-08-30 17:42] LABS: ANION GAP 7 (5-19); BLOOD UREA NITROGEN 22 mg/dL (7-20); CALCIUM 9.6 mg/dL (8.4-10.2); CARBON DIOXIDE 17 mmol/L (22-30); CHLORIDE 112 mmol/L (98-107); GLUCOSE 319 mg/dL (75-110); POTASSIUM 4.7 mmol/L (3.6-5.0)
[2018-08-30 21:07] LABS: ANION GAP 6 (5-19); BLOOD UREA NITROGEN 23 mg/dL (7-20); CALCIUM 9.2 mg/dL (8.4-10.2); CARBON DIOXIDE 17 mmol/L (22-30); CHLORIDE 112 mmol/L (98-107); GLUCOSE 335 mg/dL (75-110); POTASSIUM 4.7 mmol/L (3.6-5.0)
[2018-08-31 00:36] LABS: ANION GAP 10 (5-19); BLOOD UREA NITROGEN 25 mg/dL (7-20); CALCIUM 9.8 mg/dL (8.4-10.2); CARBON DIOXIDE 12 mmol/L (22-30); CHLORIDE 112 mmol/L (98-107); POTASSIUM 4.9 mmol/L (3.6-5.0)
[2018-08-31 00:47] LABS: GLUCOSE 436 mg/dL (75-110)
[2018-08-31 04:32] LABS: ANION GAP 9 (5-19); BLOOD UREA NITROGEN 23 mg/dL (7-20); CALCIUM 9.6 mg/dL (8.4-10.2); CARBON DIOXIDE 15 mmol/L (22-30); CHLORIDE 110 mmol/L (98-107); POTASSIUM 4.9 mmol/L (3.6-5.0)
[2018-08-31 04:43] LABS: GLUCOSE 532 mg/dL (75-110)
[2018-08-31] MEDS: HEPARIN SOD (PORCINE) 5,000 UNIT/ML 1 ML VIAL SUBCUT SCH (05:29)
[2018-08-31] MEDS: PANTOPRAZOLE SODIUM 40 MG TABLET.DR PO SCH (05:34)
[2018-08-31] MEDS ORDERED: INSULIN LISPRO 100 UNIT/ML 3 ML VIAL SUBCUT ONE (05:45)
--- NOTE | 2018-08-31 08:36 | Progress Note ---
Provider Note Provider Note: Patient was advised to go to his [facility] to secure his medications We discussed financial situations concerning prescriptions, she was honest with me and told me that he cannot afford his prescriptions and has exhausted all of his avenues for financial assistance. I told patient I would be glad to help him anyway possible. Patient is well aware of the insulin dosing and other medications that he needs.
[2018-08-31] MEDS ORDERED: HYDROCODONE/ACETAMINOPHEN 5-325 MG TABLET PO ONE (09:00)
[2018-08-31] MEDS ORDERED: PROMETHAZINE HCL 25 MG TABLET PO ONE (09:00)
[2018-08-31] MEDS: INSULIN LISPRO 100 UNIT/ML 3 ML VIAL SUBCUT SCH (09:11)
[2018-08-31 09:20] VITALS: BP 98/69
[2018-08-31] MEDS: METOCLOPRAMIDE HCL 10 MG TABLET PO SCH (09:20)
--- NOTE | 2018-09-05 15:20 | PDOC DISCHARGE SUMMARY ---
General - Admit/Disc Date/PCP Admission Date/Primary Care Provider: 08/28/18 11:31 Discharge Date: 08/31/18 - Additional Information Resuscitation Status: Full Code Discharge Diet: Clear Liquids Discharge Activity: Activity As Tolerated Prescriptions: Ferrous Sulfate [Feosol 325 mg Tablet] 325 mg PO BID #60 tablet Gabapentin [Neurontin 100 mg Capsule] 200 mg PO Q6 #120 capsule Insulin Glargine,Hum.rec.anlog [Lantus Insulin 100 Unit/1 ml 10 ml] 30 unit SUBCUT Q12 #100 unit Lipase/Protease/Amylase [Pancreaze-10 Capsule.] 1 cap PO BID #60 capsule. NPH, Human Insulin Isophane [Novolin N (NPH) Insulin 100 unit/mL] 0 unit SUBCUT .PERSLDSCALE #100 ml Pantoprazole Sodium [Protonix] 40 mg PO Q6AM #30 tablet. Home Medications: Ferrous Sulfate [Feosol 325 mg Tablet] 325 mg PO BID #60 tablet 08/31/18 Gabapentin [Neurontin 100 mg Capsule] 200 mg PO Q6 #120 capsule 08/31/18 Insulin Glargine,Hum.rec.anlog [Lantus Insulin 100 Unit/1 ml 10 ml] 30 unit SUBCUT Q12 #100 unit 08/31/18 Lipase/Protease/Amylase [Pancreaze-10 Capsule.] 1 cap PO BID #60 capsule. 08/31/18 NPH, Human Insulin Isophane [Novolin N (NPH) Insulin 100 unit/mL] 0 unit SUBCUT .PERSLDSCALE #100 ml 08/31/18 Pantoprazole Sodium [Protonix] 40 mg PO Q6AM #30 tablet. 08/31/18 History of Present Illness History of Present Illness: CHESTER MCKEON is a 38 year old male Physical Exam Vital Signs: Temp Pulse Resp BP Pulse Ox 97.4 F 87 12 119/76 100 08/30/18 04:02 08/30/18 04:02 08/30/18 04:02 08/30/18 04:02 08/30/18 04:02 Intake & Output 08/29/18 08/30/18 08/31/18 06:59 06:59 06:59 Intake Total 4164 2182 Output Total 875 1100 Balance 3289 1082 Weight 69.9 kg Results Laboratory Results: 08/29/18 04:32 08/30/18 04:09 08/29/18 08/29/18 08/29/18 08:14 12:29 16:48 Sodium 138.0 136.7 L 133.8 L Potassium 4.2 4.3 4.9 Chloride 116 H 114 H 110 H Carbon Dioxide 16 L 15 L 14 L Anion Gap 6 8 10 BUN 28 H 25 H 21 H Creatinine 1.05 1.03 0.95 Est GFR ( Amer) > 60 > 60 > 60 Est GFR (Non-Af Amer) > 60 > 60 > 60 Glucose 83 178 H 391 H Calcium 8.6 8.7 8.7 08/29/18 08/30/18 08/30/18 20:10 00:22 04:09 Sodium 133.2 L 138.1 135.2 L Potassium 4.3 4.2 4.5 Chloride 110 H 112 H 111 H Carbon Dioxide 15 L 17 L 15 L Anion Gap 8 9 9 BUN 21 H 19 22 H Creatinine 1.10 1.10 0.97 Est GFR ( Amer) > 60 > 60 > 60 Est GFR (Non-Af Amer) > 60 > 60 > 60 Glucose 377 H 244 H 345 H Calcium 8.5 9.3 8.7 08/28/18 08/28/18 09:27 09:27 Creatine Kinase 315 H CK-MB (CK-2) 10.30 H Troponin I < 0.012 Qualifiers - * PATIENT BEING DISCHARGED WITH ANY OF THE FOLLOWING DIAGNOSIS: No Acute Heart Failure - Is this a Heart Failure Patient?: No
== END 2018-08-31 10:06 | disposition home or self-care (01) | DRG 637 ==
LOC: ER 08:13 → EH 11:31 → 3S 13:04
PROVIDERS: ADMIT Hospitalist; ATTEND Hospitalist
DX: E10.10 Type 1 diabetes mellitus with ketoacidosis without coma (principal); K85.90 Acute pancreatitis without necrosis or infection, unspecified; K86.1 Other chronic pancreatitis; N17.9 Acute kidney failure, unspecified; F19.10 Other psychoactive substance abuse, uncomplicated; E78.5 Hyperlipidemia, unspecified; I10 Essential (primary) hypertension; K21.9 Gastro-esophageal reflux disease without esophagitis; F32.9 Major depressive disorder, single episode, unspecified; F17.210 Nicotine dependence, cigarettes, uncomplicated; E10.43 Type 1 diabetes mellitus with diabetic autonomic (poly)neuropathy; K31.84 Gastroparesis; D64.9 Anemia, unspecified; E78.00 Pure hypercholesterolemia, unspecified; E64.9 Sequelae of unspecified nutritional deficiency; Z86.14 Personal history of Methicillin resistant Staphylococcus aureus infection; Z79.899 Other long term (current) drug therapy; Z79.4 Long term (current) use of insulin; Z88.8 Allergy status to other drugs, medicaments and biological substances; Z91.19 Patient's noncompliance with other medical treatment and regimen; Z83.3 Family history of diabetes mellitus; Z82.49 Family history of ischemic heart disease and other diseases of the circulatory system
CPT/HCPCS: 36415; 36600; 80048; 80053; 80307; 81001; 82550; 82553; 82803; 82962; 83036; 83605; 83690; 83735; 84484; 85025; 93005; 93010; 96361; 96374; 99291; J1644; J1815; J2270; J2550; J2765; J3480; J3490; J7030; J7050; S0164

== ENCOUNTER 2018-10-15 13:49 | Emergency (ER) | payer SELFPAY ==
[2018-10-15 14:01] VITALS: BP 109/74
== END 2018-10-15 16:00 | disposition left against medical advice (07) ==
LOC: ER 13:49
DX: Z53.21 Procedure and treatment not carried out due to patient leaving prior to being seen by health care provider (principal)

== ENCOUNTER 2018-10-16 08:59 | Inpatient (IN) | payer OTHER ==
[2018-10-16 09:55] LABS: ABSOLUTE BASOPHILS # (AUTO) 0.1 10^3/uL (0.0-0.2); ABSOLUTE LYMPHOCYTES (AUTO) 0.8 10^3/uL (0.5-4.7); ABSOLUTE MONOCYTES (AUTO) 0.3 10^3/uL (0.1-1.4); ABSOLUTE NEUT (AUTO) 7.3 10^3/uL (1.7-8.2); BASOPHILS % (AUTO) 0.9 % (0-2); EOSINOPHILS % (AUTO) 0.3 % (0-6); HEMATOCRIT 39.8 % (37.9-51.0); LYMPHOCYTES % (AUTO) 9.1 % (13-45); MEAN CORPUSCULAR HEMOGLOBIN 26.1 pg (27.0-33.4); MEAN CORPUSCULAR HGB CONC 30.2 g/dL (32.0-36.0); MEAN CORPUSCULAR VOLUME 86 fl (80-97); MONOCYTES % (AUTO) 4.1 % (3-13); PLATELET COUNT 352 10^3/uL (150-450); SEGMENTED NEUTROPHILS % (AUTO) 85.6 % (42-78); TOTAL CELLS COUNTED % (AUTO) 100 %; WHITE BLOOD COUNT 8.6 10^3/uL (4.0-10.5)
--- NOTE | 2018-10-16 10:00 | ER Document Report ---
ED Blood Sugar Problem - General Chief Complaint: High Blood Sugar Stated Complaint: BLOOD SUGAR PROBLEMS Time Seen by Provider: 10/16/18 09:27 Notes: 38-year-old male with insulin-dependent diabetes mellitus and chronic pancreatitis presents to the emergency department with concern for high blood sugar. He checked his sugar at home and it read as high, this was confirmed here by nursing when patient was performed. Patient states that his symptoms have gradually increased over the last 3 days and he has chest pain, abdominal pain, nausea and vomiting, weakness, dizziness and lightheadedness. Patient states that he has been taking his short-term insulin but has not been taking his Lantus dosing as 30 units in the morning and in the evening. TRAVEL OUTSIDE OF THE [place] IN LAST 30 DAYS: No - Related Data Allergies/Adverse Reactions: ondansetron [From Zofran (as hydrochloride)] Allergy (Severe, Verified 10/16/18 12:12) Difficulty breathing Past Medical History - Social History Smoking Status: Unknown if Ever Smoked Family History: DM, Hyperlipidemia, Hypertension Patient has suicidal ideation: No Patient has homicidal ideation: No - Past Medical History Cardiac Medical History: Reports: Hx Hypercholesterolemia, Hx Hypertension Denies: Hx Coronary Artery Disease, Hx Heart Attack Pulmonary Medical History: Denies: Hx Asthma, Hx COPD, Hx Sleep Apnea Neurological Medical History: Denies: Hx Migraine, Hx Seizures Endocrine Medical History: Reports: Hx Diabetes Mellitus Type 1. Denies: Hx Hyperthyroidism, Hx Hypothyroidism Renal/ Medical History: Denies: Hx End Stage Renal Disease, Hx Peritoneal Dialysis GI Medical History: Reports: Hx Gastroesophageal Reflux Disease, Hx Pancreatitis, Hx Ulcer. Denies: Hx Cirrhosis, Hx Hepatitis Musculoskeletal Medical History: Denies Hx Arthritis, Denies Hx Fibromyalgia, Denies Hx Systemic Lupus Erythematosus Skin Medical History: Denies Hx Eczema, Denies Hx Psoriasis Psychiatric Medical History: Reports: Hx Depression Infectious Medical History: Reports: Hx MRSA. Denies: Hx C-Diff, Hx Hepatitis Past Surgical History: Reports: Hx Orthopedic Surgery - back, left long finger PIP disarticulation, right hand I&D. Denies: Hx Appendectomy, Hx Cholecystectomy, Hx Tonsillectomy - Immunizations Hx Diphtheria, Pertussis, Tetanus Vaccination: Yes Hx Pneumococcal Vaccination: 11/09/11 Review of Systems - Review of Systems Constitutional: See HPI EENT: No symptoms reported Cardiovascular: See HPI Respiratory: See HPI Gastrointestinal: See HPI Genitourinary: No symptoms reported Male Genitourinary: No symptoms reported Musculoskeletal: No symptoms reported Skin: No symptoms reported Hematologic/Lymphatic: No symptoms reported Neurological/Psychological: See HPI Physical Exam - Vital signs Vitals: Resp 16 10/16/18 09:34 - Notes Notes: PHYSICAL EXAMINATION: Reviewed vital signs and charting by RN GENERAL: Sleepy, interacts well. No acute distress. HEAD: Normocephalic, atraumatic. EYES: Pupils equal and round. Extraocular movements intact. ENT: Oral mucosa moist, tongue midline. NECK: Full range of motion. Trachea midline. LUNGS: Clear to auscultation bilaterally, no wheezes, rales, or rhonchi. No respiratory distress. HEART: Regular rate and rhythm. No murmur ABDOMEN: soft, generalized tenderness to palpation. No distention. Bowel sounds present EXTREMITIES: Moves all 4 extremities spontaneously. No edema, No cyanosis. PSYCH: Normal affect, normal mood. SKIN: Warm, dry, normal turgor. No rashes or lesions noted. Course - Re-evaluation Re-evalutation: 10/16/18 11:35 Patient presents tired and complaining/vomiting and abdominal pain. Serum glucose was 793, pH 7.13 on VBG, serum bicarbonate. Patient is getting normal saline 2 L bolus and plan is to initiate an insulin drip. I have called Chris Carvajal, lead hospitalist, and he is going to assess the patient for admission. 10/16/18 14:20 Patient was accepted for full admission to the ICU. - Vital Signs Vital signs: Temp Pulse Resp BP Pulse Ox 97.7 F 14 110/75 100 10/16/18 09:53 10/16/18 14:01 10/16/18 14:01 10/16/18 14:01 - Laboratory Result Diagrams: 10/16/18 09:39 10/16/18 09:39 Laboratory results interpreted by me: 10/16/18 10/16/18 10/16/18 09:39 09:39 09:39 Hgb 12.0 L MCH 26.1 L MCHC 30.2 L RDW 17.0 H Lymph % (Auto) 9.1 L Seg Neutrophils % 85.6 H VBG pH 7.13 L* VBG pCO2 29.7 L VBG HCO3 9.6 L Sodium 126.0 L Potassium 5.1 H Chloride 96 L Carbon Dioxide 8 L* Anion Gap 22 H BUN 32 H Creatinine 1.45 H Est GFR (MDRD) Non-Af 55 L Glucose 893 H* Alkaline Phosphatase 222 H Lipase 3938.2 H Urine Glucose (UA) Urine Ketones Urine Blood 10/16/18 10:25 Hgb MCH MCHC RDW Lymph % (Auto) Seg Neutrophils % VBG pH VBG pCO2 VBG HCO3 Sodium Potassium Chloride Carbon Dioxide Anion Gap BUN Creatinine Est GFR (MDRD) Non-Af Glucose Alkaline Phosphatase Lipase Urine Glucose (UA) >=500 H Urine Ketones 20 H Urine Blood MODERATE H Discharge - Discharge Clinical Impression: Diabetic ketoacidosis Qualifiers: Diabetes mellitus type: type 1 Diabetes mellitus complication detail: without coma Qualified Code(s): E10.10 - Type 1 diabetes mellitus with ketoacidosis without coma Nausea and vomiting Qualifiers: Vomiting type: unspecified Vomiting Intractability: non-intractable Qualified Code(s): R11.2 - Nausea with vomiting, unspecified Abdominal pain Qualifiers: Abdominal location: unspecified location Qualified Code(s): R10.9 - Unspecified abdominal pain Condition: Stable Disposition: ADMITTED INPATIENT Admitting Provider: David (Hospitalist) Unit Admitted: ICU
[2018-10-16 10:20] LABS: ALBUMIN 3.8 g/dL (3.5-5.0); ALKALINE PHOSPHATASE 222 U/L (38-126); ASPARTATE AMINO TRANSFERASE 24 U/L (17-59); BILIRUBIN,DIRECT 0.4 mg/dL (0.0-0.4); BILIRUBIN,TOTAL 0.6 mg/dL (0.2-1.3); BLOOD UREA NITROGEN 32 mg/dL (7-20); CALCIUM 9.1 mg/dL (8.4-10.2); POTASSIUM 5.1 mmol/L (3.6-5.0); TOTAL PROTEIN 7.2 g/dL (6.3-8.2)
[2018-10-16 10:25] LABS: VENOUS BLOOD BASE EXCESS -18.3 mmol/L; VENOUS BLOOD HCO3 9.6 mmol/L (20-32); VENOUS BLOOD PCO2 29.7 mmHg (35-63)
[2018-10-16 10:28] LABS: VENOUS BLOOD PH 7.13 (7.30-7.42)
[2018-10-16 10:29] LABS: CHLORIDE 96 mmol/L (98-107)
[2018-10-16] MEDS ORDERED: PROMETHAZINE HCL INJ 50 MG/1 ML VIAL IM ONE (10:43)
[2018-10-16 10:49] LABS: ANION GAP 22 (5-19)
[2018-10-16 10:51] LABS: CARBON DIOXIDE 8 mmol/L (22-30); GLUCOSE 893 mg/dL (75-110)
[2018-10-16 11:02] LABS: APPEARANCE,URINE CLEAR; BILIRUBIN,URINE NEGATIVE (NEGATIVE); COLOR,URINE STRAW; GLUCOSE, URINE >=500 mg/dL (NEGATIVE); KETONES,URINE 20 mg/dL (NEGATIVE); LEUKOCYTE ESTERASE,URINE NEGATIVE (NEGATIVE); NITRITE,URINE NEGATIVE (NEGATIVE); PROTEIN,URINE NEGATIVE (NEGATIVE); URINE SPECIFIC GRAVITY 1.025; UROBILINOGEN,URINE NEGATIVE mg/dL (<2.0)
[2018-10-16] MEDS ORDERED: NORMAL SALINE 1000 ML 1,000 ML IV PRN (11:33)
[2018-10-16] MEDS ORDERED: ONDANSETRON HCL INJ/PF 4 MG/2 ML SDV IV PRN (11:33)
[2018-10-16] MEDS ORDERED: NORMAL SALINE 100 ML with INSULIN REGULAR, HUMAN 100 UNIT IV PRN ×2 (11:36)
[2018-10-16] MEDS ORDERED: DEXTROSE 40% GEL 15 GM TUBE PO PRN ×4 (11:36→18:40)
[2018-10-16] MEDS ORDERED: GLUCAGON,HUMAN RECOMB 1 MG INJ IM PRN ×2 (11:36→18:40)
[2018-10-16] MEDS ORDERED: DEXTROSE 50%-WATER 25 GM/50 ML DISP.SYRIN IV PRN ×3 (11:36→18:40)
[2018-10-16] MEDS ORDERED: INSULIN REG, HUMAN 100 UNIT/ML 3 ML VIAL (PYX) IV ONE (11:36)
--- NOTE | 2018-10-16 11:41 | Progress Note Acknowledgement ---
Progress Note Acknowledgement Progess Note Acknowledgement: I, the undersigned member of the medical staff with appropriate privileges and with supervisory authority over [Alfredo Carvajal], a dependent practice allied health professional, acknowledge that I have reviewed the progress notes entered on this patient, and in my professional judgment believe that the assessment made and/or any care evidenced was appropriate
--- NOTE | 2018-10-16 11:50 | PDOC H&P ---
History of Present Illness Admission Date/PCP: 10/16/2018 Unknown primary care Patient complains of: Unable to assess as patient is sleeping status post 50 mg of IM Phenergan History of Present Illness: CHESTER MCKEON is a 38 year old male Past Medical History Cardiac Medical History: Reports: Hyperlipidema, Hypertension Denies: Coronary Artery Disease, Myocardial Infarction Pulmonary Medical History: Denies: Asthma, Chronic Obstructive Pulmonary Disease (COPD), Sleep Apnea Neurological Medical History: Denies: Migraine, Seizures Endocrine Medical History: Reports: Diabetes Mellitus Type 1 Denies: Hyperthyroidism, Hypothyroidism Renal/ Medical History: Denies: End Stage Renal Disease GI Medical History: Reports: Gastroesophageal Reflux Disease Denies: Cirrhosis, Hepatitis Musculoskeltal Medical History: Denies: Arthritis, Fibromyalgia Skin Medical History: Denies: Eczema, Psoriasis Psychiatric Medical History: Reports: Depression Hematology: Reports: Anemia Denies: Bleeding Tendencies Infectious Medical History: Reports: Methicillin-Resistant Staph Aureus Denies: Clostridium Difficile Past Surgical History Past Surgical History: Reports: Orthopedic Surgery - back, left long finger PIP disarticulation, right hand I&D Denies: Appendectomy, Cholecystectomy, Tonsillectomy Social History Smoking Status: Unknown if Ever Smoked Frequency of Alcohol Use: None Hx Recreational Drug Use: Yes Drugs: Marijuana Hx Prescription Drug Abuse: No Past Social History Note: Unable to assess as patient is extremely lethargic from 50 mg IM Phenergan dose in the ER - Advance Directive Resuscitation Status: Full Code Family History Family History: DM, Hyperlipidemia, Hypertension Family History: Unable to assess as patient is very lethargic, 50 mg IM Phenergan dose in the ER Parental Family History Reviewed: No - Unable to assess secondary to lethargy Children Family History Reviewed: No Sibling(s) Family History Reviewed.: No Medication/Allergy Home Medications: Ferrous Sulfate [Feosol 325 mg Tablet] 325 mg PO BID #60 tablet 08/31/18 Gabapentin [Neurontin 100 mg Capsule] 200 mg PO Q6 #120 capsule 08/31/18 Insulin Glargine,Hum.rec.anlog [Lantus Insulin 100 Unit/1 ml 10 ml] 30 unit SUBCUT Q12 #100 unit 08/31/18 Lipase/Protease/Amylase [Pancreaze-10 Capsule.] 1 cap PO BID #60 capsule. 08/31/18 NPH, Human Insulin Isophane [Novolin N (NPH) Insulin 100 unit/mL] 0 unit SUBCUT .PERSLDSCALE #100 ml 08/31/18 Pantoprazole Sodium [Protonix] 40 mg PO Q6AM #30 tablet. 08/31/18 Allergies/Adverse Reactions: ondansetron [From Zofran (as hydrochloride)] Allergy (Verified 08/28/18 08:13) Review of Systems ROS unobtainable: Other - Sedation Physical Exam Vital Signs: Temp Pulse Resp BP Pulse Ox 97.7 F 17 100 10/16/18 09:53 10/16/18 10:00 10/16/18 10:00 Intake & Output 10/15/18 10/16/18 10/17/18 06:59 06:59 06:59 Weight 61.6 kg General appearance: PRESENT: no acute distress, well-developed, well-nourished Head exam: PRESENT: atraumatic, normocephalic Eye exam: PRESENT: conjunctiva pink, EOMI, PERRLA. ABSENT: scleral icterus Ear exam: PRESENT: normal external ear exam Mouth exam: PRESENT: moist, tongue midline Neck exam: ABSENT: carotid bruit, JVD, lymphadenopathy, thyromegaly Respiratory exam: PRESENT: clear to auscultation alfonso. ABSENT: rales, rhonchi, wheezes Cardiovascular exam: PRESENT: RRR. ABSENT: diastolic murmur, rubs, systolic mu rmur Pulses: PRESENT: normal dorsalis pedis pul Vascular exam: PRESENT: normal capillary refill GI/Abdominal exam: PRESENT: normal bowel sounds, soft. ABSENT: distended, guarding, mass, organolmegaly, rebound, tenderness Rectal exam: PRESENT: deferred Extremities exam: PRESENT: full ROM. ABSENT: calf tenderness, clubbing, pedal edema Neurological exam: PRESENT: alert, awake, oriented to person, oriented to place, oriented to time, oriented to situation, CN II-XII grossly intact. ABSENT: motor sensory deficit Psychiatric exam: PRESENT: appropriate affect, normal mood. ABSENT: homicidal ideation, suicidal ideation Skin exam: PRESENT: dry, intact, warm. ABSENT: cyanosis, rash Results Laboratory Results: 10/16/18 09:39 10/16/18 09:39 10/16/18 10/16/18 10/16/18 09:39 09:39 09:39 WBC 8.6 RBC 4.60 Hgb 12.0 L Hct 39.8 MCV 86 MCH 26.1 L MCHC 30.2 L RDW 17.0 H Plt Count 352 Seg Neutrophils % 85.6 H VBG pH 7.13 L* VBG pCO2 29.7 L VBG HCO3 9.6 L VBG Base Excess -18.3 Sodium 126.0 L Potassium 5.1 H Chloride 96 L Carbon Dioxide 8 L* Anion Gap 22 H BUN 32 H Creatinine 1.45 H Est GFR ( Amer) > 60 Glucose 893 H* Calcium 9.1 Total Bilirubin 0.6 AST 24 Alkaline Phosphatase 222 H Total Protein 7.2 Albumin 3.8 Lipase 3938.2 H Urine Color Urine Appearance Urine pH Ur Specific [place] Urine Protein Urine Glucose (UA) Urine Ketones Urine Blood Urine Nitrite Ur Leukocyte Esterase Urine WBC (Auto) Urine RBC (Auto) 10/16/18 10:25 WBC RBC Hgb Hct MCV MCH MCHC RDW Plt Count Seg Neutrophils % VBG pH VBG pCO2 VBG HCO3 VBG Base Excess Sodium Potassium Chloride Carbon Dioxide Anion Gap BUN Creatinine Est GFR ( Amer) Glucose Calcium Total Bilirubin AST Alkaline Phosphatase Total Protein Albumin Lipase Urine Color STRAW Urine Appearance CLEAR Urine pH 6.0 Ur Specific [place] 1.025 Urine Protein NEGATIVE Urine Glucose (UA) >=500 H Urine Ketones 20 H Urine Blood MODERATE H Urine Nitrite NEGATIVE Ur Leukocyte Esterase NEGATIVE Urine WBC (Auto) 1 Urine RBC (Auto) 0 10/16/18 09:39 Troponin I < 0.012 Assessment and Plan - Diagnosis (1) Diabetic ketoacidosis Qualifiers: Diabetes mellitus type: type 1 Is this a current diagnosis for this admission?: Yes Plan: 10/16/2018-admit patient to ICU. Normal saline at 250 mL/h. Accu-Cheks q. one hours with insulin drip starting at 5 units/h will titrate every 1 hour. Patient does have a severe metabolic acidosis with a bicarbonate of 8 and a pH of 7.13. I suspect this will normalize with fluids and insulin. I will check patient's BMP and magnesium every 4 hours until I see his gap close. Once patient's gap is closed I will place patient back on his home medications including long-acting insulin. Once patient's blood sugars below 250 I will add dextrose to his IV fluids to keep insulin running until we have a closed gap. We will continue to follow (2) Chronic pancreatitis Is this a current diagnosis for this admission?: Yes Plan: 10/16/2018-patient is n.p.o. at this time will give normal saline 250 mL an hour. Will repeat lipase in the a.m. (3) Hyperkalemia Is this a current diagnosis for this admission?: Yes Plan: 10/16/2018-potassium 5.1. I suspect with fluids and insulin this will drop. I will repeat his BMP every 4 hours I will replete potassium as needed (4) Hyponatremia Is this a current diagnosis for this admission?: Yes Plan: 10/16/2018-sodium 126 this a.m. I suspect this mostly from beer potomania as patient does have a known EtOH problem. Will hydrate patient will saline 250 mL an hour repeat BMP in a.m. (5) Acute kidney injury Is this a current diagnosis for this admission?: Yes Plan: 10/16/2018-suspect this most likely from nausea and vomiting associated with DKA. Patient is being hydrated with normal saline at 250 mL/h we will repeat renal function in the a.m. Creatinine is 1.43 - Time Time Spent with patient: 35 or more minutes - Inpatient Certification Based on my medical assessment, after consideration of the patient's comorbidities, presenting symptoms, or acuity I expect that the services needed warrant INPATIENT care.: Yes I certify that my determination is in accordance with my understanding of Medicare's requirements for reasonable and necessary INPATIENT services [42 CFR 412.3e].: Yes Medical Necessity: Other - ICU, IV fluids, IV insulin drip
[2018-10-16 13:30] LABS: URINE AMPHETAMINES SCREEN NEGATIVE; URINE BARBITURATES SCREEN NEGATIVE; URINE BENZODIAZEPINES SCREEN NEGATIVE; URINE COCAINE SCREEN NEGATIVE; URINE MARIJUANA (THC) SCREEN NEGATIVE; URINE METHADONE SCREEN NEGATIVE; URINE PHENCYCLIDINE SCREEN NEGATIVE
[2018-10-16 14:11] LABS: BLOOD UREA NITROGEN 32 mg/dL (7-20); POTASSIUM 4.5 mmol/L (3.6-5.0)
[2018-10-16 14:18] LABS: CHLORIDE 101 mmol/L (98-107)
[2018-10-16 14:20] LABS: ANION GAP 22 (5-19)
[2018-10-16 14:21] LABS: CARBON DIOXIDE 8 mmol/L (22-30); GLUCOSE > 625 mg/dL (75-110)
[2018-10-16] MEDS: PROMETHAZINE HCL INJ 25 MG/1 ML VIAL IV PRN ×2 (15:15→21:07)
[2018-10-16] MEDS: HEPARIN SOD (PORCINE) 5,000 UNIT/ML 1 ML VIAL SUBCUT SCH ×2 (15:57→21:07)
[2018-10-16] MEDS ORDERED: METOCLOPRAMIDE HCL INJ/PF 10 MG/2 ML SDV ONE (16:22)
[2018-10-16] MEDS ORDERED: HYDROMORPHONE HCL INJ/PF 2 MG/ML AMPULE ONE (16:22)
[2018-10-16] MEDS: HYDROMORPHONE HCL INJ/PF 2 MG/ML AMPULE IV PRN ×2 (17:10→21:14)
[2018-10-16] MEDS: METOCLOPRAMIDE HCL INJ/PF 10 MG/2 ML SDV IV PRN ×2 (17:11→22:56)
[2018-10-16] MEDS ORDERED: INSULIN, REGULAR 100 UNIT/100 ML NORMAL SALINE IV PRN ×2 (17:30)
[2018-10-16 17:48] LABS: ANION GAP 12 (5-19); BLOOD UREA NITROGEN 31 mg/dL (7-20); CARBON DIOXIDE 15 mmol/L (22-30); CHLORIDE 109 mmol/L (98-107); GLUCOSE 351 mg/dL (75-110)
[2018-10-16 17:50] LABS: POTASSIUM 3.4 mmol/L (3.6-5.0)
[2018-10-16] MEDS ORDERED: NORMAL SALINE 1000 ML 1,000 ML with POTASSIUM CHLORIDE 20 MEQ IV PRN ×2 (18:00)
[2018-10-16] MEDS ORDERED: DEXTROSE 5%-NORMAL SALINE 1,000 ML with POTASSIUM CHLORIDE 20 MEQ IV PRN ×2 (18:17)
[2018-10-16] MEDS ORDERED: POTASSI CL 20 MEQ/D5NS 1L 20 MEQ/1,000 ML RTUINJ IV ONE ×2 (18:32→23:09)
[2018-10-16] MEDS: INSULIN REG, HUMAN 100 UNIT/ML 3 ML VIAL (PYX) SUBCUT SCH (21:07)
[2018-10-16 22:22] LABS: ANION GAP 9 (5-19); BLOOD UREA NITROGEN 27 mg/dL (7-20); CALCIUM 8.4 mg/dL (8.4-10.2); CARBON DIOXIDE 16 mmol/L (22-30); CHLORIDE 112 mmol/L (98-107); GLUCOSE 251 mg/dL (75-110); POTASSIUM 4.1 mmol/L (3.6-5.0)
[2018-10-16] MEDS: POTASSI CL 20 MEQ/D5NS 1L 1000 ML IV PRN (23:09)
[2018-10-17] MEDS: GABAPENTIN 100 MG CAPSULE PO SCH ×4 (00:05→17:13)
[2018-10-17] MEDS ORDERED: DEXTROSE 5%-NORMAL SALINE 1,000 ML with POTASSIUM CHLORIDE 20 MEQ IV PRN ×2 (00:41)
[2018-10-17] MEDS: HYDROMORPHONE HCL INJ/PF 2 MG/ML AMPULE IV PRN ×4 (01:23→14:53)
[2018-10-17] MEDS ORDERED: POTASSI CL 20 MEQ/D5NS 1L 20 MEQ/1,000 ML RTUINJ IV ONE (02:31)
[2018-10-17] MEDS ORDERED: POTASSI CL 20 MEQ/D5-1/2NS 1L 1000 ML IV PRN (02:39)
[2018-10-17] MEDS: POTASSI CL 20 MEQ/D5NS 1L 1000 ML IV PRN (02:43)
[2018-10-17] MEDS: PROMETHAZINE HCL INJ 25 MG/1 ML VIAL IV PRN ×3 (03:13→15:47)
[2018-10-17 04:15] LABS: ABSOLUTE BASOPHILS # (AUTO) 0.1 10^3/uL (0.0-0.2); ABSOLUTE EOSINOPHILS # (AUTO) 0.1 10^3/uL (0.0-0.6); ABSOLUTE LYMPHOCYTES (AUTO) 1.7 10^3/uL (0.5-4.7); ABSOLUTE MONOCYTES (AUTO) 1.2 10^3/uL (0.1-1.4); ABSOLUTE NEUT (AUTO) 8.5 10^3/uL (1.7-8.2); BASOPHILS % (AUTO) 0.6 % (0-2); EOSINOPHILS % (AUTO) 0.7 % (0-6); HEMATOCRIT 32.4 % (37.9-51.0); HEMOGLOBIN 10.4 g/dL (13.5-17.0); LYMPHOCYTES % (AUTO) 15.1 % (13-45); MEAN CORPUSCULAR HEMOGLOBIN 25.8 pg (27.0-33.4); MEAN CORPUSCULAR HGB CONC 32.1 g/dL (32.0-36.0); MEAN CORPUSCULAR VOLUME 80 fl (80-97); PLATELET COUNT 339 10^3/uL (150-450); RED BLOOD COUNT 4.04 10^6/uL (4.35-5.55); RED CELL DISTRIBUTION WIDTH 15.8 % (11.5-14.0); SEGMENTED NEUTROPHILS % (AUTO) 73.6 % (42-78); TOTAL CELLS COUNTED % (AUTO) 100 %; WHITE BLOOD COUNT 11.5 10^3/uL (4.0-10.5)
[2018-10-17 04:28] LABS: ANION GAP 6 (5-19); BLOOD UREA NITROGEN 25 mg/dL (7-20); CALCIUM 8.5 mg/dL (8.4-10.2); CARBON DIOXIDE 17 mmol/L (22-30); CHLORIDE 117 mmol/L (98-107); CHOLESTEROL 108.41 mg/dL (0-200); GLUCOSE 154 mg/dL (75-110); PHOSPHORUS 2.8 mg/dL (2.5-4.5); POTASSIUM 4.1 mmol/L (3.6-5.0); TRIGLYCERIDES 68 mg/dL (<150)
[2018-10-17 04:39] LABS: DIRECT LDL 72 mg/dL (<100)
[2018-10-17] MEDS: METOCLOPRAMIDE HCL INJ/PF 10 MG/2 ML SDV IV PRN ×2 (05:31→18:51)
[2018-10-17] MEDS: POTASSI CL 20 MEQ/1/2NS 1L 1000 ML IV PRN ×3 (05:32→19:11)
[2018-10-17] MEDS: HEPARIN SOD (PORCINE) 5,000 UNIT/ML 1 ML VIAL SUBCUT SCH ×3 (05:42→22:43)
[2018-10-17] MEDS: PANTOPRAZOLE SODIUM 40 MG TABLET.DR PO SCH (06:37)
[2018-10-17] MEDS: INSULIN REG, HUMAN 100 UNIT/ML 3 ML VIAL (PYX) SUBCUT SCH ×4 (08:49→22:40)
[2018-10-17] MEDS: FERROUS SULFATE 325 MG TABLET PO SCH ×2 (09:25→17:13)
[2018-10-17] MEDS ORDERED: PROTEASE PO SCH (10:00)
[2018-10-17] MEDS ORDERED: AMYLASE PO SCH (10:00)
[2018-10-17] MEDS ORDERED: LIPASE PO SCH (10:00)
[2018-10-17] MEDS ORDERED: PANTOPRAZOLE SODIUM 40 MG VIAL IV SCH (10:00)
[2018-10-17] MEDS ORDERED: ACETAMINOPHEN 325 MG TABLET PO PRN (21:51)
[2018-10-17] MEDS: TRAMADOL HCL 50 MG TABLET PO PRN (22:39)
[2018-10-18] MEDS: GABAPENTIN 100 MG CAPSULE PO SCH ×4 (01:28→17:19)
[2018-10-18] MEDS: POTASSI CL 20 MEQ/1/2NS 1L 1000 ML IV PRN (06:27)
[2018-10-18] MEDS: PANTOPRAZOLE SODIUM 40 MG TABLET.DR PO SCH (06:28)
[2018-10-18] MEDS: HEPARIN SOD (PORCINE) 5,000 UNIT/ML 1 ML VIAL SUBCUT SCH ×4 (06:28→22:09)
[2018-10-18] MEDS ORDERED: INSULIN REG, HUMAN 100 UNIT/ML 3 ML VIAL (PYX) SUBCUT ONE (09:45)
[2018-10-18] MEDS: FERROUS SULFATE 325 MG TABLET PO SCH ×2 (09:59→17:19)
[2018-10-18] MEDS: LIPASE/PROTEASE/AMYLASE 1 CAP CAPSULE.DR PO SCH ×2 (10:02→17:49)
[2018-10-18] MEDS: INSULIN REG, HUMAN 100 UNIT/ML 3 ML VIAL (PYX) SUBCUT SCH ×3 (10:03→17:50)
[2018-10-18] MEDS: INSULIN GLARGINE,HUM.REC.ANLOG 1,000 UNIT/10 ML VIAL SUBCUT SCH ×2 (10:27→22:14)
[2018-10-18 10:37] LABS: ANION GAP 11 (5-19); BLOOD UREA NITROGEN 23 mg/dL (7-20); CALCIUM 8.8 mg/dL (8.4-10.2); CARBON DIOXIDE 12 mmol/L (22-30); CHLORIDE 108 mmol/L (98-107)
[2018-10-18 11:04] LABS: GLUCOSE 681 mg/dL (75-110)
[2018-10-18 11:05] LABS: POTASSIUM 6.1 mmol/L (3.6-5.0)
[2018-10-18] MEDS: TRAMADOL HCL 50 MG TABLET PO PRN (11:41)
[2018-10-18] MEDS: PROMETHAZINE HCL INJ 25 MG/1 ML VIAL IV PRN ×2 (11:42→18:32)
[2018-10-18] MEDS ORDERED: INSULIN, REGULAR 100 UNIT/100 ML NORMAL SALINE IV PRN ×2 (12:00)
[2018-10-18] MEDS ORDERED: 1/2 NORMAL SALINE 1,000 ML IV PRN (12:10)
[2018-10-18] MEDS: HYDROCODONE/ACETAMINOPHEN 5-325 MG TABLET PO PRN (14:49)
[2018-10-18 17:03] LABS: ANION GAP 12 (5-19); BLOOD UREA NITROGEN 19 mg/dL (7-20); CALCIUM 9.6 mg/dL (8.4-10.2); CARBON DIOXIDE 16 mmol/L (22-30); CHLORIDE 109 mmol/L (98-107); GLUCOSE 213 mg/dL (75-110)
[2018-10-18 17:07] LABS: POTASSIUM 4.1 mmol/L (3.6-5.0)
[2018-10-18] MEDS: HYDROMORPHONE HCL INJ/PF 2 MG/ML AMPULE IV PRN ×2 (17:20→22:09)
[2018-10-18] MEDS: DEXTROSE 5%-1/2 NORMAL SALINE 1,000 ML IV PRN (17:27)
[2018-10-18] MEDS: DEXTROSE 50%-WATER 25 GM/50 ML DISP.SYRIN IV PRN (21:18)
[2018-10-18 22:29] LABS: BLOOD UREA NITROGEN 16 mg/dL (7-20); CALCIUM 8.7 mg/dL (8.4-10.2); CHLORIDE 109 mmol/L (98-107); GLUCOSE 267 mg/dL (75-110); POTASSIUM 3.9 mmol/L (3.6-5.0)
[2018-10-18 22:36] LABS: ANION GAP 14 (5-19); CARBON DIOXIDE 11 mmol/L (22-30)
[2018-10-19] MEDS: HYDROMORPHONE HCL INJ/PF 2 MG/ML AMPULE IV PRN ×2 (01:55→08:30)
[2018-10-19] MEDS: GABAPENTIN 100 MG CAPSULE PO SCH ×4 (01:55→18:13)
[2018-10-19 02:57] LABS: ANION GAP 7 (5-19); BLOOD UREA NITROGEN 16 mg/dL (7-20); CARBON DIOXIDE 17 mmol/L (22-30); CHLORIDE 112 mmol/L (98-107); GLUCOSE 155 mg/dL (75-110); POTASSIUM 4.2 mmol/L (3.6-5.0)
[2018-10-19] MEDS: PROMETHAZINE HCL INJ 25 MG/1 ML VIAL IV PRN ×3 (04:13→18:13)
[2018-10-19 06:37] LABS: BLOOD UREA NITROGEN 14 mg/dL (7-20); CALCIUM 9.1 mg/dL (8.4-10.2); CHLORIDE 112 mmol/L (98-107); POTASSIUM 3.6 mmol/L (3.6-5.0)
[2018-10-19] MEDS: DEXTROSE 5%-1/2 NORMAL SALINE 1,000 ML IV PRN ×2 (06:40→14:26)
[2018-10-19] MEDS: PANTOPRAZOLE SODIUM 40 MG TABLET.DR PO SCH (06:41)
[2018-10-19 06:43] LABS: ANION GAP 8 (5-19); CARBON DIOXIDE 20 mmol/L (22-30)
[2018-10-19 06:54] LABS: GLUCOSE 68 mg/dL (75-110)
[2018-10-19] MEDS: DEXTROSE 50%-WATER 25 GM/50 ML DISP.SYRIN IV PRN (07:24)
[2018-10-19] MEDS: LIPASE/PROTEASE/AMYLASE 1 CAP CAPSULE.DR PO SCH ×2 (09:08→18:13)
[2018-10-19] MEDS ORDERED: DEXTROSE 50%-WATER SYRINGE 25 GM/50 ML DOSE IV PRN (09:30)
[2018-10-19] MEDS ORDERED: GLUCAGON,HUMAN RECOMB 1 MG INJ IM PRN (09:30)
[2018-10-19] MEDS ORDERED: DEXTROSE 50%-WATER SYRINGE 12.5 GM/25 ML DOSE IV PRN (09:30)
[2018-10-19] MEDS ORDERED: DEXTROSE 40% GEL 15 GM TUBE X 2 PO PRN (09:30)
[2018-10-19] MEDS ORDERED: DEXTROSE 40% GEL 15 GM TUBE PO PRN (09:30)
[2018-10-19] MEDS: FERROUS SULFATE 325 MG TABLET PO SCH ×2 (09:33→18:13)
[2018-10-19] MEDS: INSULIN GLARGINE,HUM.REC.ANLOG 1,000 UNIT/10 ML VIAL SUBCUT SCH ×2 (09:33→21:24)
--- NOTE | 2018-10-19 09:33 | PDOC PROGRESS REPORT ---
Subjective Progress Note for:: 10/19/18 Subjective:: Patient feeling appreciably better. His gap has closed. He is awake. Vitals are stable Reason For Visit: DIABETIC KETOACIDOSIS, CHRONIC PANCREATITIS Physical Exam Vital Signs: Temp Pulse Resp BP Pulse Ox 97.2 F 99 12 116/72 99 10/19/18 08:00 10/19/18 08:00 10/19/18 08:00 10/19/18 08:00 10/19/18 08:00 Intake & Output 10/18/18 10/19/18 10/20/18 06:59 06:59 06:59 Intake Total 3937 1852 Output Total 1677 950 Balance 2260 902 Weight 78.6 kg General appearance: PRESENT: no acute distress, well-developed, well-nourished Head exam: PRESENT: atraumatic, normocephalic Eye exam: PRESENT: conjunctiva pink, EOMI, PERRLA. ABSENT: scleral icterus Ear exam: PRESENT: normal external ear exam Mouth exam: PRESENT: moist, tongue midline Neck exam: PRESENT: full ROM. ABSENT: carotid bruit, JVD, lymphadenopathy, thyromegaly Cardiovascular exam: PRESENT: RRR. ABSENT: diastolic murmur, rubs, systolic murmur Pulses: PRESENT: normal dorsalis pedis pul, +2 pedal pulses bilateral Vascular exam: PRESENT: normal capillary refill GI/Abdominal exam: PRESENT: normal bowel sounds, soft. ABSENT: distended, guarding, mass, organolmegaly, rebound, tenderness Rectal exam: PRESENT: deferred Neurological exam: PRESENT: alert, awake, oriented to person, oriented to place, oriented to time, oriented to situation, CN II-XII grossly intact. ABSENT: motor sensory deficit Psychiatric exam: PRESENT: appropriate affect, normal mood. ABSENT: homicidal ideation, suicidal ideation Skin exam: PRESENT: dry, intact, warm. ABSENT: cyanosis, rash Results Laboratory Results: 10/17/18 03:45 10/19/18 06:09 10/18/18 10/18/18 10/18/18 10:10 16:10 21:59 Sodium 131.3 L 136.7 L 133.5 L Potassium 6.1 H* 4.1 D 3.9 Chloride 108 H 109 H 109 H Carbon Dioxide 12 L 16 L 11 L Anion Gap 11 12 14 BUN 23 H 19 16 Creatinine 1.07 1.03 1.03 Est GFR ( Amer) > 60 > 60 > 60 Glucose 681 H* 213 H 267 H Calcium 8.8 9.6 8.7 10/19/18 10/19/18 02:18 06:09 Sodium 136.2 L 140.3 Potassium 4.2 3.6 Chloride 112 H 112 H Carbon Dioxide 17 L 20 L Anion Gap 7 8 BUN 16 14 Creatinine 0.94 0.94 Est GFR ( Amer) > 60 > 60 Glucose 155 H 68 L Calcium 9.0 9.1 10/16/18 09:39 Troponin I < 0.012 Assessment & Plan - Diagnosis (1) Acute kidney injury Is this a current diagnosis for this admission?: Yes Plan: The EVE has resolved with fluid resuscitation and creatinine back to normal (2) Hyponatremia Is this a current diagnosis for this admission?: Yes Plan: his last sodium was normal. The otrtiginal low reading was a consequence of pseudohyponatremia due to his hyperglycemia. 10/19 resolved. Last Na+ was 140. (3) Diabetic ketoacidosis Qualifiers: Diabetes mellitus type: type 1 Diabetes mellitus complication detail: without coma Qualified Code(s): E10.10 - Type 1 diabetes mellitus with ketoacidosis without coma Is this a current diagnosis for this admission?: Yes Plan: The p[atient has closed his gap. The insulin drip is off. He has been placed on glucometers and coverage. He can be transferred to the [facility] medical floor. 10/19 Unfortunately the patient developed high blood sugars earlier yesterday.we instituted his lanus and sliding scale but it took a while to get his BS under control. Late last night theatient actually became hypoglycemia after having to go back on an insulin drip earlier inthe day. He required numerous glsses of orange juie, D50 w and thaniV dextrose to get his blood sugar up agian. Thsiu AM is blood sugar is over 200. We will continue his Lantus and sliding scale. he is off the drip. we aren hpiong to be able to transfer thepatient out later today
[2018-10-19 12:13] LABS: ANION GAP 9 (5-19); BLOOD UREA NITROGEN 13 mg/dL (7-20); CALCIUM 9.5 mg/dL (8.4-10.2); CARBON DIOXIDE 19 mmol/L (22-30); CHLORIDE 111 mmol/L (98-107); GLUCOSE 111 mg/dL (75-110); POTASSIUM 3.8 mmol/L (3.6-5.0)
[2018-10-19] MEDS: INSULIN REG, HUMAN 100 UNIT/ML 3 ML VIAL (PYX) SUBCUT SCH ×3 (12:43→21:24)
[2018-10-19] MEDS: HEPARIN SOD (PORCINE) 5,000 UNIT/ML 1 ML VIAL SUBCUT SCH ×4 (12:54→22:00)
[2018-10-19] MEDS: HYDROCODONE/ACETAMINOPHEN 5-325 MG TABLET PO PRN (14:25)
[2018-10-19] MEDS: METOCLOPRAMIDE HCL INJ/PF 10 MG/2 ML SDV IV PRN (14:35)
[2018-10-19 15:34] LABS: ANION GAP 12 (5-19); BLOOD UREA NITROGEN 12 mg/dL (7-20); CALCIUM 9.3 mg/dL (8.4-10.2); CARBON DIOXIDE 15 mmol/L (22-30); CHLORIDE 112 mmol/L (98-107); GLUCOSE 88 mg/dL (75-110); POTASSIUM 4.3 mmol/L (3.6-5.0)
--- NOTE | 2018-10-19 18:25 | Progress Note ---
Provider Note Provider Note: Received call from IMCU nurse that the patient had been downgraded from ICU this morning. Have not received handoff report from clinical nurse reviewer. Review of overnight labs show the patient did become hypoglycemic and required amp of D50. Otherwise, serial chemistries show normal electrolytes, close anion gap, corrected bicarb however this is now decreased to 15. Nurse reports that the patient is awake, alert and oriented to his baseline, with adequate p.o. intake. He does report abdominal discomfort, though without nausea or vomiting. Overnight events, vital signs, laboratory evaluation, and orders reviewed. Will discontinue serial chemistries, will follow-up BMP with a.m. lab work. Continue Accu-Cheks before meals and at bedtime with sliding scale insulin. Continue Lantus; will decrease dose by 25% as the patient had a hypoglycemia overnight. Current IV fluids discontinued; will start normal saline at 125 mL's per hour as the patient's bicarb is trending down. Registered dietitian, special educator, and urban planner are consulted.
[2018-10-19] MEDS: NORMAL SALINE 1000 ML 1,000 ML IV PRN (19:34)
[2018-10-20] MEDS: GABAPENTIN 100 MG CAPSULE PO SCH ×5 (01:11→23:53)
[2018-10-20] MEDS: PANTOPRAZOLE SODIUM 40 MG TABLET.DR PO SCH (05:05)
[2018-10-20] MEDS: NORMAL SALINE 1000 ML 1,000 ML IV PRN (05:05)
[2018-10-20] MEDS: HEPARIN SOD (PORCINE) 5,000 UNIT/ML 1 ML VIAL SUBCUT SCH ×3 (05:10→22:20)
[2018-10-20 07:08] LABS: ANION GAP 7 (5-19); BLOOD UREA NITROGEN 15 mg/dL (7-20); CALCIUM 8.8 mg/dL (8.4-10.2); CARBON DIOXIDE 16 mmol/L (22-30); CHLORIDE 114 mmol/L (98-107); GLUCOSE 173 mg/dL (75-110); POTASSIUM 4.2 mmol/L (3.6-5.0)
[2018-10-20] MEDS: INSULIN REG, HUMAN 100 UNIT/ML 3 ML VIAL (PYX) SUBCUT SCH ×4 (08:03→22:33)
[2018-10-20] MEDS: LIPASE/PROTEASE/AMYLASE 1 CAP CAPSULE.DR PO SCH ×2 (08:32→17:24)
[2018-10-20] MEDS: PROMETHAZINE HCL INJ 25 MG/1 ML VIAL IV PRN ×2 (08:49→17:21)
[2018-10-20] MEDS: FERROUS SULFATE 325 MG TABLET PO SCH ×2 (10:20→17:21)
[2018-10-20] MEDS: INSULIN GLARGINE,HUM.REC.ANLOG 1,000 UNIT/10 ML VIAL SUBCUT SCH ×2 (10:20→22:26)
--- NOTE | 2018-10-20 15:20 | PDOC PROGRESS REPORT ---
Subjective Progress Note for:: 10/20/18 Subjective:: No adverse events overnight. No new complaints. Vital signs been stable. Blood sugars have been fairly well-controlled today. We have had him on his home insulin regimen. He was asleep whenever came in the room and I had to wake him up to talk to him, and when I did he said he was in pain and wanted something stronger than hydrocodone because it was not working. He looked very comfortable. Reason For Visit: DIABETIC KETOACIDOSIS, CHRONIC PANCREATITIS Physical Exam Vital Signs: Temp Pulse Resp BP Pulse Ox 98.4 F 105 H 18 124/77 100 10/20/18 11:29 10/20/18 11:29 10/20/18 11:29 10/20/18 11:29 10/20/18 11:29 Intake & Output 10/19/18 10/20/18 10/21/18 06:59 06:59 06:59 Intake Total 1852 3129 1000 Output Total 950 0 Balance 902 3129 1000 Weight 64.6 kg General appearance: PRESENT: no acute distress, cooperative Respiratory exam: PRESENT: clear to auscultation alfonso, symmetrical, unlabored. ABSENT: accessory muscle use, chest wall tenderness, crackles, prolonged exp iratory phas, rhonchi, tachypnea, wheezes Cardiovascular exam: PRESENT: RRR, +S1, +S2 Pulses: PRESENT: normal carotid pulses Vascular exam: PRESENT: normal capillary refill GI/Abdominal exam: PRESENT: normal bowel sounds, soft. ABSENT: distended, guarding, rebound, tenderness Extremities exam: ABSENT: clubbing, pedal edema Musculoskeletal exam: PRESENT: normal inspection. ABSENT: deformity Neurological exam: PRESENT: awake, oriented to person, oriented to place, oriented to situation Psychiatric exam: PRESENT: flat affect Skin exam: PRESENT: dry, warm Results Laboratory Results: 10/17/18 03:45 10/20/18 06:21 10/19/18 10/20/18 10/20/18 14:44 04:21 06:21 Sodium 139.2 Cancelled 137.3 Potassium 4.3 Cancelled 4.2 Chloride 112 H Cancelled 114 H Carbon Dioxide 15 L Cancelled 16 L Anion Gap 12 Cancelled 7 BUN 12 Cancelled 15 Creatinine 0.96 Cancelled 0.86 Est GFR ( Amer) > 60 Cancelled > 60 Est GFR (Non-Af Amer) Cancelled Glucose 88 Cancelled 173 H Calcium 9.3 Cancelled 8.8 10/16/18 09:39 Troponin I < 0.012 Assessment and Plan - Diagnosis (1) Acute kidney injury Is this a current diagnosis for this admission?: Yes Plan: Resolved (2) Diabetic ketoacidosis Qualifiers: Diabetes mellitus type: type 1 Diabetes mellitus complication detail: without coma Qualified Code(s): E10.10 - Type 1 diabetes mellitus with ketoacidosis without coma Is this a current diagnosis for this admission?: Yes Plan: Resolved. Stopped his IV fluids today. Continue his home insulin regimen. I am keeping him today because his bicarbonate is only 16, and I want to make sure it continues to trend up before we send him home. - Time Time Spent with patient: 15-24 minutes
[2018-10-20] MEDS: HYDROCODONE/ACETAMINOPHEN 5-325 MG TABLET PO PRN (23:56)
[2018-10-21] MEDS: HEPARIN SOD (PORCINE) 5,000 UNIT/ML 1 ML VIAL SUBCUT SCH (06:04)
[2018-10-21] MEDS: PANTOPRAZOLE SODIUM 40 MG TABLET.DR PO SCH (06:32)
[2018-10-21] MEDS: GABAPENTIN 100 MG CAPSULE PO SCH ×2 (06:32→12:04)
[2018-10-21] MEDS: NORMAL SALINE 1000 ML 1,000 ML IV PRN (06:43)
[2018-10-21] MEDS: PROMETHAZINE HCL INJ 25 MG/1 ML VIAL IV PRN ×3 (06:46→12:48)
[2018-10-21] MEDS: INSULIN REG, HUMAN 100 UNIT/ML 3 ML VIAL (PYX) SUBCUT SCH (08:34)
[2018-10-21] MEDS: LIPASE/PROTEASE/AMYLASE 1 CAP CAPSULE.DR PO SCH (08:39)
[2018-10-21] MEDS: INSULIN GLARGINE,HUM.REC.ANLOG 1,000 UNIT/10 ML VIAL SUBCUT SCH ×2 (09:31→10:01)
[2018-10-21] MEDS: FERROUS SULFATE 325 MG TABLET PO SCH (09:32)
[2018-10-21 11:05] LABS: ANION GAP 9 (5-19); BLOOD UREA NITROGEN 14 mg/dL (7-20); CALCIUM 8.8 mg/dL (8.4-10.2); CARBON DIOXIDE 17 mmol/L (22-30); CHLORIDE 115 mmol/L (98-107); GLUCOSE 98 mg/dL (75-110)
[2018-10-21 12:08] VITALS: BP 102/77
--- NOTE | 2018-10-21 15:29 | PDOC DISCHARGE SUMMARY ---
General - Admit/Disc Date/PCP Admission Date/Primary Care Provider: 10/16/18 13:56 Discharge Date: 10/21/18 - Discharge Diagnosis (1) Acute kidney injury Is this a current diagnosis for this admission?: Yes Summary: Resolved with IV fluids (2) Diabetic ketoacidosis Is this a current diagnosis for this admission?: Yes Summary: Resolved with IV fluids, insulin drip, and electrolyte management - Additional Information Resuscitation Status: Full Code Discharge Diet: Diabetic Discharge Activity: Activity As Tolerated Home Medications: Ferrous Sulfate [Feosol 325 mg Tablet] 325 mg PO BID 10/16/18 Gabapentin [Neurontin 100 mg Capsule] 200 mg PO Q6 10/16/18 Lipase/Protease/Amylase [Pancrelipase EC 10,000 Capsule] 1 cap PO BID 10/16/18 NPH, Human Insulin Isophane [Novolin N (NPH) Insulin 100 unit/mL] 0 unit PO .SLIDING SCALE 10/16/18 Pantoprazole Sodium [Protonix [address] Tablet] 40 mg PO Q6AM 10/16/18 Insulin Glargine,Hum.rec.anlog [Lantus Insulin 100 Unit/1 ml 10 ml] 22 unit SQ Q12 #0 10/21/18 History of Present Illness History of Present Illness: CHESTER MCKEON is a 38 year old male with insulin-dependent diabetes mellitus and chronic pancreatitis presents to the emergency department with concern for high blood sugar. He checked his sugar at home and it read as high, this was confirmed here by nursing when patient was performed. Patient states that his symptoms have gradually increased over the last 3 days and he has chest pain, abdominal pain, nausea and vomiting, weakness, dizziness and lightheadedness. Patient states that he has been taking his short-term insulin but has not been taking his Lantus dosing as 30 units in the morning and in the evening. Hospital Course Hospital Course: He was somewhat unresponsive after 50 mg of Phenergan that he got in the ER so he went to ICU. His DKA was managed with insulin, IV fluids, and electrolyte management. He was brought out of DKA and was able to be transitioned to a basal bolus regimen. We watched him for another day after he was transferred out of the ICU to make sure his bicarbonate would continue to trend upward and it did. He was not taking his Lantus as he should have been at home and was encouraged to take his home medications as directed. His labs and examination were reassuring and he was discharged in good condition. Physical Exam Vital Signs: Temp Pulse Resp BP Pulse Ox 97.4 F 84 16 102/77 100 10/21/18 12:06 10/21/18 12:06 10/21/18 12:06 10/21/18 12:06 10/21/18 12:06 Intake & Output 10/20/18 10/21/18 10/22/18 06:59 06:59 06:59 Intake Total 3129 2302 Output Total 0 Balance 3129 2302 Weight 64.6 kg 68.7 kg General appearance: PRESENT: no acute distress, cooperative Respiratory exam: PRESENT: clear to auscultation alfonso, symmetrical, unlabored. ABSENT: accessory muscle use, chest wall tenderness, crackles, prolonged expiratory phas, rhonchi, tachypnea, wheezes Cardiovascular exam: PRESENT: RRR, +S1, +S2 Pulses: PRESENT: normal carotid pulses Vascular exam: PRESENT: normal capillary refill GI/Abdominal exam: PRESENT: normal bowel sounds, soft. ABSENT: distended, guarding, rebound, tenderness Extremities exam: ABSENT: clubbing, pedal edema Musculoskeletal exam: PRESENT: normal inspection. ABSENT: deformity Neurological exam: PRESENT: awake, oriented to person, oriented to place, oriented to situation Psychiatric exam: PRESENT: flat affect Skin exam: PRESENT: dry, warm Results Laboratory Results: 10/17/18 03:45 10/21/18 09:59 10/21/18 09:59 Sodium 140.7 Potassium 4.0 Chloride 115 H Carbon Dioxide 17 L Anion Gap 9 BUN 14 Creatinine 0.78 Est GFR ( Amer) > 60 Glucose 98 Calcium 8.8 10/16/18 09:39 Troponin I < 0.012 Qualifiers - * PATIENT BEING DISCHARGED WITH ANY OF THE FOLLOWING DIAGNOSIS: No Acute Heart Failure - Is this a Heart Failure Patient?: No Plan Time Spent: Greater than 30 Minutes
== END 2018-10-21 15:30 | disposition home or self-care (01) | DRG 638 ==
LOC: ER 08:59 → EH 13:56 → ICU 14:40 → 3N 10-19 13:33
PROVIDERS: ADMIT Internal Medicine; ATTEND Internal Medicine
DX: E10.10 Type 1 diabetes mellitus with ketoacidosis without coma (principal); E87.1 Hypo-osmolality and hyponatremia; N17.9 Acute kidney failure, unspecified; K86.1 Other chronic pancreatitis; E78.5 Hyperlipidemia, unspecified; I10 Essential (primary) hypertension; E10.649 Type 1 diabetes mellitus with hypoglycemia without coma; K21.9 Gastro-esophageal reflux disease without esophagitis; T38.3X6A Underdosing of insulin and oral hypoglycemic [antidiabetic] drugs, initial encounter; E87.5 Hyperkalemia; F32.9 Major depressive disorder, single episode, unspecified; D64.9 Anemia, unspecified; Z86.14 Personal history of Methicillin resistant Staphylococcus aureus infection; Z83.3 Family history of diabetes mellitus; Z83.438 Family history of other disorder of lipoprotein metabolism and other lipidemia; Z79.4 Long term (current) use of insulin
CPT/HCPCS: 36415; 80048; 80053; 80061; 80307; 81001; 82803; 82962; 83690; 83735; 84100; 84484; 85025; 96374; 99285; J1170; J1644; J1815; J2550; J2765; J3480; J3490; J7030; J7042; J7050

== ENCOUNTER 2019-09-26 08:32 | Inpatient (IN) | payer SELFPAY ==
[2019-09-26] MEDS ORDERED: DEXTROSE 50%-WATER 25 GM/50 ML DISP.SYRIN IV ONE ×2 (08:49→09:11)
[2019-09-26] MEDS ORDERED: NORMAL SALINE 1000 ML 1,000 ML IV ONE (09:07)
--- NOTE | 2019-09-26 09:09 | ER Document Report ---
ED General - General Chief Complaint: Shortness Of Breath Stated Complaint: SHORT OF BREATH,BLURRED VISION Time Seen by Provider: 09/26/19 08:51 TRAVEL OUTSIDE OF THE [place] IN LAST 30 DAYS: No - HPI Notes: Chief complaint: Chest and upper abdominal pain History of present illness: 39-year-old male poorly compliant type I diabetic with history of polysubstance abuse, chronic pancreatitis and multiple prior admissions here for DKA brought in today by his brother with complaint of several days history of generalized weakness with intermittent vomiting and upper abdominal and mid chest pain. Noted to have a blood sugar of 35 at triage and he was somewhat sleepy. Limited history obtainable from the patient himself at this time due to his condition. - Related Data Allergies/Adverse Reactions: ondansetron [From Zofran (as hydrochloride)] Allergy (Severe, Verified 10/16/18 12:12) Difficulty breathing Past Medical History - General Information source: Patient, [facility] Records - Social History Smoking Status: Current Every Day Smoker Frequency of alcohol use: None Drug Abuse: Marijuana, Other - History of polysubstance abuse Lives with: Family - Is already on to you me to rewrite I give you just minute Family History: DM, Hyperlipidemia, Hypertension - Past Medical History Cardiac Medical History: Reports: Hx Hypercholesterolemia, Hx Hypertension Denies: Hx Coronary Artery Disease, Hx Heart Attack Pulmonary Medical History: Denies: Hx Asthma, Hx COPD, Hx Sleep Apnea Neurological Medical History: Denies: Hx Migraine, Hx Seizures Endocrine Medical History: Reports: Hx Diabetes Mellitus Type 1. Denies: Hx Hyperthyroidism, Hx Hypothyroidism Renal/ Medical History: Denies: Hx End Stage Renal Disease, Hx Peritoneal Dialysis GI Medical History: Reports: Hx Gastroesophageal Reflux Disease, Hx Pancreatitis, Hx Ulcer. Denies: Hx Cirrhosis, Hx Hepatitis Musculoskeletal Medical History: Denies Hx Arthritis, Denies Hx Fibromyalgia, Denies Hx Systemic Lupus Erythematosus Skin Medical History: Denies Hx Eczema, Denies Hx Psoriasis Psychiatric Medical History: Reports: Hx Depression Infectious Medical History: Reports: Hx MRSA. Denies: Hx C-Diff, Hx Hepatitis Past Surgical History: Reports: Hx Orthopedic Surgery - back, left long finger PIP disarticulation, right hand I&D. Denies: Hx Appendectomy, Hx Cholecystectomy, Hx Tonsillectomy - Immunizations Hx Diphtheria, Pertussis, Tetanus Vaccination: Yes Hx Pneumococcal Vaccination: 11/09/11 Review of Systems - Review of Systems -: Yes ROS unobtainable due to patient's medical condition Physical Exam - Vital signs Vitals: Temp Pulse Resp BP Pulse Ox 97.9 F 96 18 93/68 L 99 09/26/19 08:44 09/26/19 08:44 09/26/19 08:44 09/26/19 08:44 09/26/19 08:44 Interpretation: Hypotensive Notes: GENERAL: Acutely and chronically ill-appearing middle-age male who is lethargic and appears dehydrated. SKIN: Pale with decreased turgor no rashes. HEAD: Bitemporal wasting. EYES: PERRLA. EOMI. Conjunctivae and sclerae clear. EARS: CANALS AND TMS CLEAR. NOSE: CLEAR. MOUTH: Tacky oral mucosa. Good dentition. No stridor or edema. No drooling. NECK: Supple. No masses or thyromegaly. No adenopathy. Carotids 2+ without bruits. No JVD. BACK: Symmetrical without tenderness. CHEST: Respirations unlabored. Breath sounds clear and symmetrical. HEART: Regular rhythm. No murmur gallop or rub. ABDOMEN: Mild epigastric tenderness. Soft without masses, organomegaly or rebound. Bowel sounds normally active. No bruits. GENITALIA: Deferred. EXTREMITIES: No edema. No calf tenderness. Cap refill less than 1.5 seconds. Dorsalis pedis and posterior tibial pulses 3+ and symmetrical. NEUROLOGICAL: GCS 14. Oriented to person place but not time. Eyes open spontaneously. Follows commands. Sleepy. Fluent speech. Cranial nerves II through XII intact. Sensorimotor and cerebellar normal. Normal tone. Course - Re-evaluation Re-evalutation: 09/26/19 15:57 Patient initially looked quite dehydrated and was having watery diarrhea. He complained of epigastric discomfort had a relatively benign abdominal exam. He was marginally hypotensive on arrival here. He had no peripheral IV access we initially had to place an IO line. Subsequently we briefly got a peripheral IV but this quickly blew. He was hypoglycemic and was given D50 W IV. Initial blood sugar was in the 30s. His blood sugar peaked at about 198 after receiving D50 W. I subsequently placed subclavian central line on the right side. Chest x-ray shows no definite infiltrate. CT scan of the abdomen without contrast showed possible developing pancreatic pseudocyst. Patient's urinalysis shows significant pyuria. He was empirically given IV Rocephin. His creatinine is mildly bumped from his baseline consistent with acute kidney injury probably secondary to dehydration. His lactate level is normal. Blood cultures were drawn. Arterial pH is 7.2 with a bicarb of 16. His anion gap was normal. It would appear that he has a urinary tract infection, dehydration and a possible renal tubular acidosis. He is continue to get volume expansion with saline. We placed him on a combination of IV insulin and glucose with supplemental potassium and his metabolic parameters have improved with this. We will asked the hospitalist to admit him. 09/26/19 16:00 - Vital Signs Vital signs: Temp Pulse Resp BP Pulse Ox 97.9 F 96 17 133/96 H 100 09/26/19 08:44 09/26/19 08:44 09/26/19 15:00 09/26/19 13:00 09/26/19 15:00 - Laboratory Result Diagrams: 09/26/19 10:00 09/26/19 09:05 Laboratory results interpreted by me: 09/26/19 09/26/19 09/26/19 08:41 09:03 09:05 WBC RBC Hgb Hct MCH MCHC RDW Lymph % (Auto) Absolute Neuts (auto) Seg Neutrophils % VBG pH VBG pCO2 VBG HCO3 Sodium 135.4 L Carbon Dioxide 16 L BUN 36 H Creatinine 1.39 H Est GFR (MDRD) Non-Af 57 L Glucose 34 L* POC Glucose 40 L 37 L* Alkaline Phosphatase 502 H Total Protein 9.0 H Albumin 3.3 L Urine Protein Urine Blood Leukocyte Esterase [facility] 09/26/19 09/26/19 09/26/19 09:32 10:00 11:18 WBC 13.1 H RBC 4.21 L Hgb 11.3 L Hct 35.5 L MCH 26.8 L MCHC 31.7 L RDW 21.2 H Lymph % (Auto) 7.9 L Absolute Neuts (auto) 11.2 H Seg Neutrophils % 86.0 H VBG pH 7.23 L VBG pCO2 32.7 L VBG HCO3 13.2 L Sodium Carbon Dioxide BUN Creatinine Est GFR (MDRD) Non-Af Glucose POC Glucose 182 H Alkaline Phosphatase Total Protein Albumin Urine Protein Urine Blood Leukocyte Esterase [facility] 09/26/19 09/26/19 11:23 14:50 WBC RBC Hgb Hct MCH MCHC RDW Lymph % (Auto) Absolute Neuts (auto) Seg Neutrophils % VBG pH VBG pCO2 VBG HCO3 Sodium Carbon Dioxide BUN Creatinine Est GFR (MDRD) Non-Af Glucose POC Glucose 199 H Alkaline Phosphatase Total Protein Albumin Urine Protein 100 H Urine Blood MODERATE H Leukocyte Esterase Rfl LARGE H - EKG Interpretation by Me Additional EKG results interpreted by me: 09/26/19 09:22 Twelve-lead EKG from 0912 hrs. reviewed contemporaneously by me demonstrating normal sinus rhythm with a rate of 85. There is a prolonged QT interval of 495 ms. There is some minimal ST elevation in leads V2 and V3 consistent with early repolarization. QRS axis is normal at +76 degrees. Overall appearance of the tracing is minimally changed from prior study of 08/28/2018. Interpretation: Early repolarization. Indication for current study: Chest pain. Procedures - Central Line Right Subclavian Time completed: 12:33 Consent obtained: Yes Central line pre-insertion: Sterile PPE donned, Betadine prep applied, Sterile drapes applied Central line size (Fr.): 21 Central line lumen type: Triple Anesthetic type: 1% Lidocaine mL's of anesthesia: 5 Ultrasound guided: No CM at insertion site: 15 Line secured with sutures: Yes Central line post-insertion: Blood return from lumens, Biopatch applied, Sutured, Sterile dressing applied, Position confirmed w/ CXR Number of attempts: 1 Complications: No Critical Care Note - Critical Care Note Total time excluding time spent on procedures (mins): 105 - Severely hyperglycemic and marginally hypotensive on arrival. Required placement of IO line due to lack of IV access. Subsequent placement of subclavian central line. IV dextrose. IV antibiotics. IV insulin drip. Discharge - Discharge Clinical Impression: Sepsis associated hypotension, Urinary tract infection, Acute kidney injury Chronic pancreatitis Qualifiers: Pancreatitis type: unspecified pancreatitis type Qualified Code(s): K86.1 - Other chronic pancreatitis Condition: Fair Disposition: ADMITTED INPATIENT Admitting Provider: Mariam (Hospitalist) Unit Admitted: [facility]
[2019-09-26] MEDS ORDERED: METOCLOPRAMIDE HCL INJ/PF 10 MG/2 ML SDV IV ONE (09:32)
[2019-09-26] MEDS ORDERED: FAMOTIDINE INJ/PF 20 MG/2 ML SDV IV ONE (09:33)
--- NOTE | 2019-09-26 09:37 | EKG REPORT ---
SEVERITY:- BORDERLINE ECG - SINUS RHYTHM ST ELEV, PROBABLE NORMAL EARLY REPOL PATTERN BORDERLINE PROLONGED QT INTERVAL : Confirmed by: Ruchi King 26-Sep-2019 09:36:52
[2019-09-26 10:16] LABS: ALBUMIN 3.3 g/dL (3.5-5.0); ALCOHOL < 10 mg/dL (NONE DETECTED); ANION GAP 12 (5-19); BILIRUBIN,DIRECT 0.4 mg/dL (0.0-0.4); BILIRUBIN,TOTAL 0.9 mg/dL (0.2-1.3); BLOOD UREA NITROGEN 36 mg/dL (7-20); CALCIUM 9.2 mg/dL (8.4-10.2); CARBON DIOXIDE 16 mmol/L (22-30); CHLORIDE 107 mmol/L (98-107)
[2019-09-26 10:18] LABS: GLUCOSE 34 mg/dL (75-110); POTASSIUM 3.6 mmol/L (3.6-5.0)
[2019-09-26 10:19] LABS: ABSOLUTE EOSINOPHILS # (AUTO) 0.1 10^3/uL (0.0-0.6); ABSOLUTE MONOCYTES (AUTO) 0.7 10^3/uL (0.1-1.4); EOSINOPHILS % (AUTO) 0.6 % (0-6); MONOCYTES % (AUTO) 5.2 % (3-13); TOTAL CELLS COUNTED % (AUTO) 100 %
[2019-09-26 10:19] LABS: ALKALINE PHOSPHATASE 502 U/L (38-126); ASPARTATE AMINO TRANSFERASE 32 U/L (17-59)
[2019-09-26 10:30] LABS: ABSOLUTE NEUT (AUTO) 11.2 10^3/uL (1.7-8.2); BASOPHILS % (AUTO) 0.3 % (0-2); HEMATOCRIT 35.5 % (37.9-51.0); HEMOGLOBIN 11.3 g/dL (13.5-17.0); LYMPHOCYTES % (AUTO) 7.9 % (13-45); MEAN CORPUSCULAR HEMOGLOBIN 26.8 pg (27.0-33.4); MEAN CORPUSCULAR HGB CONC 31.7 g/dL (32.0-36.0); MEAN CORPUSCULAR VOLUME 84 fl (80-97); RED BLOOD COUNT 4.21 10^6/uL (4.35-5.55); RED CELL DISTRIBUTION WIDTH 21.2 % (11.5-14.0); WHITE BLOOD COUNT 13.1 10^3/uL (4.0-10.5)
--- NOTE | 2019-09-26 10:31 | RADIOLOGY REPORT (SQ) ---
EXAM DESCRIPTION: CHEST SINGLE VIEW IMAGES COMPLETED DATE/TIME: 09/26/2019 10:23 am REASON FOR STUDY: CP COMPARISON: AP view of the chest from 06/25/2018. EXAM PARAMETERS: NUMBER OF VIEWS: One view. TECHNIQUE: An AP view of the chest was obtained. RADIATION DOSE: NA LIMITATIONS: None. FINDINGS: LUNGS AND PLEURA: No consolidation, pleural effusion or pneumothorax. MEDIASTINUM AND HILAR STRUCTURES: No mediastinal or hilar contour abnormality. HEART AND VASCULAR STRUCTURES: The cardiac silhouette and pulmonary vasculature are within normal herrera its. BONES: No acute findings. HARDWARE: None in the chest. OTHER: No other finding. IMPRESSION: No acute cardiopulmonary process. TECHNICAL DOCUMENTATION: JOB ID: [id number] 2010 [employer]- All Rights Reserved Reading location - IP/workstation name: [email or web address]
[2019-09-26 10:51] LABS: PLATELET COUNT 415 10^3/uL (150-450)
[2019-09-26 11:37] LABS: VENOUS BLOOD BASE EXCESS -13.2 mmol/L; VENOUS BLOOD HCO3 13.2 mmol/L (20-32); VENOUS BLOOD PCO2 32.7 mmHg (35-63); VENOUS BLOOD PH 7.23 (7.30-7.42)
[2019-09-26] MEDS: NORMAL SALINE 1000 ML 1,000 ML IV PRN ×2 (12:56→12:57)
[2019-09-26] MEDS ORDERED: FENTANYL CITRATE INJ/PF 100 MCG/2 ML AMPUL IV ONE ×2 (13:05→15:27)
[2019-09-26] MEDS ORDERED: NORMAL SALINE 100 ML with INSULIN REGULAR, HUMAN 100 UNIT IV PRN ×2 (13:43)
[2019-09-26] MEDS ORDERED: DEXTROSE 5%-1/2 NORMAL SALINE 1,000 ML IV ONE (13:46)
--- NOTE | 2019-09-26 13:46 | RADIOLOGY REPORT (SQ) ---
EXAM DESCRIPTION: CHEST SINGLE VIEW IMAGES COMPLETED DATE/TIME: 09/26/2019 1:35 pm REASON FOR STUDY: central line placement COMPARISON: AP view of the chest from 09/26/2019. EXAM PARAMETERS: NUMBER OF VIEWS: One view. TECHNIQUE: An AP view of the chest was obtained. RADIATION DOSE: NA LIMITATIONS: None. FINDINGS: LUNGS AND PLEURA: No consolidation, pleural effusion or pneumothorax. MEDIASTINUM AND HILAR STRUCTURES: No mediastinal or hilar contour abnormality. HEART AND VASCULAR STRUCTURES: The cardiac silhouette and pulmonary vasculature are within normal herrera its. BONES: No acute findings. HARDWARE: The tip of the newly placed right subclavian approach central venous catheter projects with in the SVC. OTHER: No other finding. IMPRESSION: The tip of the newly placed right subclavian vein approach central venous catheter proje cts within the SVC. TECHNICAL DOCUMENTATION: JOB ID: [id number] 2010 [employer]- All Rights Reserved Reading location - IP/workstation name: [email or web address]
--- NOTE | 2019-09-26 14:09 | RADIOLOGY REPORT (SQ) ---
EXAM DESCRIPTION: CT ABD/PELVIS NO ORAL OR IV IMAGES COMPLETED DATE/TIME: 09/26/2019 1:39 pm REASON FOR STUDY: epigastric pain COMPARISON: CT of the abdomen and pelvis without contrast from 05/14/2018. TECHNIQUE: CT scan of the abdomen and pelvis performed without intravenous or oral contrast. Images reviewed with lung, soft tissue, and bone windows. Reconstructed coronal and sagittal MPR images revi ewed. All images stored on PACS. All CT scanners at this facility use dose modulation, iterative reconstruction, and/or weight based d osing when appropriate to reduce radiation dose to as low as reasonably achievable (ALARA). [facility]: Dose Right [facility]: CareDose [facility]: Dose Right [facility]: Teradose 4D [facility]: [employer] RADIATION DOSE: CT Rad equipment meets quality standard of care and radiation dose reduction techniq ues were employed. CTDIvol: 5.1 mGy. DLP: 240 mGy-cm. LIMITATIONS: None. FINDINGS: LOWER CHEST: Branching nodular opacities in the right middle lobe (image 2 of series 4). NON-CONTRASTED LIVER, SPLEEN, ADRENALS: Evaluation is limited due to the absence of intravenous contr ast. There is pneumobilia in the right hepatic lobe. The spleen is normal in size. There is no def inite adrenal mass. PANCREAS: Coarse pancreatic parenchymal calcifications consistent with chronic pancreatitis. The 22 x 22 mm hypodense structure near the neck of the pancreas (image 22 of series 3) is new and could rep resent a pseudo cyst. Evaluation of the pancreas is otherwise limited due to the absence of intraven ous contrast and the paucity of intra-abdominal fat. GALLBLADDER: The layering high attenuation material within the gallbladder lumen could represent a co mbination of sludge in cholelithiasis. RIGHT KIDNEY AND URETER: Evaluation is limited due to the absence of intravenous contrast. There is no hydronephrosis, nephrolithiasis, hydroureter or ureterolithiasis. LEFT KIDNEY AND URETER: Evaluation is limited due to the absence of intravenous contrast. There are caliceal calculi in the upper and lower poles of the kidneys ; the calculus in the upper pole measure s 6 mm. The 5 mm calcification in the left hemipelvis, posterior and inferior to the urinary bladder (image 60 of series 3), could represent a phlebolith or a calculus within the distal ureter - consid er correlation with ultrasound to evaluate for hydronephrosis. AORTA AND RETROPERITONEUM: No aneurysm of the abdominal aorta. No retroperitoneal adenopathy, hemorr chepe or mass. BOWEL AND PERITONEAL CAVITY: There is no bowel obstruction, bowel wall thickening or pericolonic/ per ienteric inflammation. There is no mesenteric adenopathy, free intraperitoneal fluid or mesenteric/ omental inflammation. APPENDIX: Unable to identify the appendix. PELVIS, BLADDER, AND ABDOMINAL WALL: The urinary bladder is distended, its wall is thickened and the re are layering calcifications within its lumen that could represent calculi. BONES: Grade 5 anterolisthesis of L5 relative to S1. OTHER: No other finding. IMPRESSION: 1. Branching nodular opacities in the right middle lobe (image 2 of series 4) which coul d represent an infectious or inflammatory process. 2. Coarse pancreatic parenchymal calcifications consistent with chronic pancreatitis. There is a ne w 22 x 22 mm hypodense structure in the region of the gallbladder neck which could represent a pseudo cyst. 3. The 5 mm calcification in the left hemipelvis, posterior and inferior to the urinary bladder (imag e 60 of series 3), could represent a calculus within the distal ureter - consider correlation with ul trasound to evaluate for hydronephrosis. 4. The urinary bladder is distended, its wall is thickened and there are layering calcifications wit hin its lumen that could represent calculi. Correlate for urinary retention. 5. Grade 5 anterolisthesis of L5 relative to S1. 6. Pneumobilia in the left hepatic lobe - correlate for prior history of sphincterectomy. COMMENT: This report was called to TAYLOR GILLESPIE MD at14:02 on 09/26/2019. Quality ID # [id number]: Final reports with documentation of one or more dose reduction techniques (e.g., Au tomated exposure control, adjustment of the mA and/or kV according to patient size, use of iterative reconstruction technique) TECHNICAL DOCUMENTATION: JOB ID: [id number] 2010 [employer]- All Rights Reserved Reading location - IP/workstation name: [email or web address]
[2019-09-26] MEDS ORDERED: INSULIN REG, HUMAN 100 UNIT/ML 3 ML VIAL (PYX) ONE (14:11)
[2019-09-26] MEDS ORDERED: POTASSI CL 20 MEQ/50 ML RIDER 20 MEQ/50 ML RTUPB IV ONE (14:25)
[2019-09-26 15:21] LABS: AMORPHOUS SEDIMENT,URINE TRACE /HPF; APPEARANCE,URINE CLOUDY; BILIRUBIN,URINE NEGATIVE (NEGATIVE); GLUCOSE, URINE NEGATIVE (NEGATIVE); KETONES,URINE NEGATIVE (NEGATIVE); PROTEIN,URINE 100 mg/dL (NEGATIVE); URINE SPECIFIC GRAVITY 1.012; UROBILINOGEN,URINE NEGATIVE mg/dL (<2.0)
[2019-09-26 15:24] LABS: COLOR,URINE YELLOW
[2019-09-26] MEDS ORDERED: PROCHLORPERAZINE EDISYLATE INJ 10 MG/2 ML VIAL IV ONE (15:26)
[2019-09-26 15:36] LABS: URINE AMPHETAMINES SCREEN NEGATIVE; URINE BARBITURATES SCREEN NEGATIVE; URINE BENZODIAZEPINES SCREEN NEGATIVE; URINE COCAINE SCREEN NEGATIVE; URINE METHADONE SCREEN NEGATIVE; URINE PHENCYCLIDINE SCREEN NEGATIVE
[2019-09-26 15:38] LABS: URINE MARIJUANA (THC) SCREEN UNCONFIRMED POSITIVE
[2019-09-26] MEDS ORDERED: CEFTRIAXONE INJ 1000 MG VIAL IV ONE (15:47)
[2019-09-26 16:33] LABS: ALKALINE PHOSPHATASE 380 U/L (38-126); ANION GAP 10 (5-19); BLOOD UREA NITROGEN 29 mg/dL (7-20); CALCIUM 7.8 mg/dL (8.4-10.2); CARBON DIOXIDE 13 mmol/L (22-30); CHLORIDE 113 mmol/L (98-107); GLUCOSE 175 mg/dL (75-110); POTASSIUM 3.4 mmol/L (3.6-5.0)
[2019-09-26] MEDS ORDERED: CEFTRIAXONE 2 GM/D5W RTU 2 GM/50 ML RTUPB IV SCH (18:00)
[2019-09-26] MEDS ORDERED: ACETAMINOPHEN 325 MG TABLET PO PRN (18:28)
[2019-09-26] MEDS ORDERED: PROMETHAZINE HCL 25 MG SUPP.RECT PR PRN (18:28)
[2019-09-26] MEDS ORDERED: IPRATROPIUM/ALBUTEROL 0.5-2.5 MG/3 ML AMPUL NEB PRN (18:28)
[2019-09-26] MEDS ORDERED: PROMETHAZINE HCL INJ 25 MG/1 ML VIAL IV PRN (18:28)
[2019-09-26] MEDS ORDERED: ACETAMINOPHEN 325 MG SUPP.RECT PR PRN (18:33)
--- NOTE | 2019-09-26 18:42 | PDOC H&P ---
History of Present Illness Admission Date/PCP: 09/26/19 16:26 History of Present Illness: CHESTER MCKEON is a 39 year old male past medical history significant for type 1 diabetes mellitus uncontrolled, chronic pancreatitis on Creon, chronic gastroparesis, chronic tobacco abuse and marijuana abuse who presents with a 2- day history of progressive abdominal pain/shortness of breath/nause a/vomiting/diarrhea/hypoglycemia. Patient states she is also had some intermittent difficulty getting urine out of his bladder. ED was going to [facility] patient but patient voided spontaneously a copious manner urine. UA consistent with UTI patient was started on ceftriaxone, urine culture pending. Blood sugar notably was in the 30s on admission patient was given glucose to bring this up. Patient states he typically takes Lantus 25 units twice daily and NovoLog sliding scale insulin at home. He also states his blood sugar is extremely poorly controlled day-to-day. He has not taken any medications for his gastroparesis and he feels like this may be exacerbated currently. He has not eaten any food in the past 2 to 3 days which makes sense given his severe hypoglycemia. He is a current smoker of tobacco and hemp although he states he smoked marijuana in the past. UDS is positive for marijuana. Patient started on LR, clear liquid diet, Reglan, pantoprazole. Past Medical History Cardiac Medical History: Reports: Hyperlipidema, Hypertension Denies: Coronary Artery Disease, Myocardial Infarction Pulmonary Medical History: Denies: Asthma, Chronic Obstructive Pulmonary Disease (COPD), Sleep Apnea Neurological Medical History: Denies: Migraine, Seizures Endocrine Medical History: Reports: Diabetes Mellitus Type 1 Denies: Hyperthyroidism, Hypothyroidism Renal/ Medical History: Denies: End Stage Renal Disease GI Medical History: Reports: Gastroesophageal Reflux Disease Denies: Cirrhosis, Hepatitis Musculoskeltal Medical History: Denies: Arthritis, Fibromyalgia Skin Medical History: Denies: Eczema, Psoriasis Psychiatric Medical History: Reports: Depression Hematology: Reports: Anemia Denies: Bleeding Tendencies Infectious Medical History: Reports: Methicillin-Resistant Staph Aureus Denies: Clostridium Difficile Past Surgical History Past Surgical History: Reports: Orthopedic Surgery - back, left long finger PIP disarticulation, right hand I&D Denies: Appendectomy, Cholecystectomy, Tonsillectomy Social History Lives with: Family - Is already on to you me to rewrite I give you just minute Smoking Status: Current Every Day Smoker Frequency of Alcohol Use: None Hx Recreational Drug Use: Yes Drugs: Marijuana Hx Prescription Drug Abuse: No - Advance Directive Resuscitation Status: Full Code Surrogate healthcare decision maker:: Mother Family History Family History: DM, Hyperlipidemia, Hypertension Parental Family History Reviewed: Yes Children Family History Reviewed: Yes Sibling(s) Family History Reviewed.: Yes Medication/Allergy Home Medications: Ferrous Sulfate [Feosol 325 mg Tablet] 325 mg PO BID 10/16/18 Gabapentin [Neurontin 100 mg Capsule] 200 mg PO Q6 10/16/18 Lipase/Protease/Amylase [Pancrelipase EC 10,000 Capsule] 1 cap PO BID 10/16/18 NPH, Human Insulin Isophane [Novolin N (NPH) Insulin 100 unit/mL] 0 unit PO .SLIDING SCALE 10/16/18 Pantoprazole Sodium [Protonix [address] Tablet] 40 mg PO Q6AM 10/16/18 Insulin Glargine,Hum.rec.anlog [Lantus Insulin 100 Unit/1 ml 10 ml] 22 unit SQ Q12 #0 10/21/18 Allergies/Adverse Reactions: ondansetron [From Zofran (as hydrochloride)] Allergy (Severe, Verified 10/16/18 12:12) Difficulty breathing Review of Systems All systems: reviewed and no additional remarkable complaints except as stated - Review of systems per HPI, otherwise negative Physical Exam Vital Signs: Temp Pulse Resp BP Pulse Ox 97.9 F 96 20 113/85 100 09/26/19 08:44 09/26/19 08:44 09/26/19 18:16 09/26/19 18:16 09/26/19 18:16 Intake & Output 09/25/19 09/26/19 09/27/19 06:59 06:59 06:59 Intake Total 2066 Balance 2066 Weight 47.8 kg General appearance: PRESENT: no acute distress, well-developed, well-nourished Head exam: PRESENT: atraumatic, normocephalic Eye exam: PRESENT: conjunctiva pink Mouth exam: PRESENT: dry mucosa Respiratory exam: PRESENT: clear to auscultation alfonso. ABSENT: rales, rhonchi, wheezes Cardiovascular exam: PRESENT: RRR. ABSENT: diastolic murmur, rubs, systolic murmur GI/Abdominal exam: PRESENT: normal bowel sounds, soft, tenderness - Mild epigastric tenderness. ABSENT: distended, guarding, mass, organolmegaly, rebound Neurological exam: PRESENT: alert, awake, oriented to person, oriented to place, oriented to time, oriented to situation Psychiatric exam: PRESENT: appropriate affect, normal mood Skin exam: PRESENT: dry, intact, warm Results Laboratory Results: 09/26/19 10:00 09/26/19 15:53 09/26/19 09/26/19 09/26/19 09:05 10:00 11:18 WBC 13.1 H RBC 4.21 L Hgb 11.3 L Hct 35.5 L MCV 84 MCH 26.8 L MCHC 31.7 L RDW 21.2 H Plt Count 415 Seg Neutrophils % 86.0 H VBG pH VBG pCO2 VBG HCO3 VBG Base Excess Sodium 135.4 L Potassium 3.6 Chloride 107 Carbon Dioxide 16 L Anion Gap 12 BUN 36 H Creatinine 1.39 H Est GFR ( Amer) > 60 Glucose 34 L* Lactic Acid 1.3 Calcium 9.2 Magnesium 2.1 Total Bilirubin 0.9 AST 32 Alkaline Phosphatase 502 H Total Protein 9.0 H Albumin 3.3 L Lipase 103.7 Urine Color Urine Appearance Urine pH Ur Specific [place] Urine Protein Urine Glucose (UA) Urine Ketones Urine Blood Urine RBC (Auto) 09/26/19 09/26/19 09/26/19 11:18 14:50 15:53 WBC RBC Hgb Hct MCV MCH MCHC RDW Plt Count Seg Neutrophils % VBG pH 7.23 L VBG pCO2 32.7 L VBG HCO3 13.2 L VBG Base Excess -13.2 Sodium 136.1 L Potassium 3.4 L Chloride 113 H Carbon Dioxide 13 L Anion Gap 10 BUN 29 H Creatinine 1.10 Est GFR ( Amer) > 60 Glucose 175 H Lactic Acid Calcium 7.8 L Magnesium Total Bilirubin AST Alkaline Phosphatase 380 H Total Protein Albumin Lipase Urine Color YELLOW Urine Appearance CLOUDY Urine pH 6.0 Ur Specific [place] 1.012 Urine Protein 100 H Urine Glucose (UA) NEGATIVE Urine Ketones NEGATIVE Urine Blood MODERATE H Urine RBC (Auto) 109 09/26/19 09/26/19 09:05 15:53 Troponin I < 0.012 < 0.012 Impressions: Abdomen/Pelvis CT 09/26/19 12:00 IMPRESSION: 1. Branching nodular opacities in the right middle lobe (image 2 of series 4) which could represent an infectious or inflammatory process. 2. Coarse pancreatic parenchymal calcifications consistent with chronic pa ncreatitis. There is a new 22 x 22 mm hypodense structure in the region of the gallbladder neck which could represent a pseudocyst. 3. The 5 mm calcification in the left hemipelvis, posterior and inferior to the urinary bladder (image 60 of series 3), could represent a calculus within the distal ureter - consider correlation with ultrasound to evaluate for hydronephrosis. 4. The urinary bladder is distended, its wall is thickened and there are layering calcifications within its lumen that could represent calculi. Correlate for urinary retention. 5. Grade 5 anterolisthesis of L5 relative to S1. 6. Pneumobilia in the left hepatic lobe - correlate for prior history of sphincterectomy. Chest X-Ray 09/26/19 12:33 IMPRESSION: The tip of the newly placed right subclavian vein approach central venous catheter projects within the SVC. Assessment and Plan - Diagnosis (1) Nausea and vomiting Qualifiers: Vomiting Intractability: intractable Is this a current diagnosis for this admission?: Yes Plan: Likely due to severe gastroparesis, UTI, poorly controlled diabetes IV fluids for rehydration Gradually advance diet, start with clear liquids Phenergan only, patient states he is allergic to Zofran Started on Reglan to help with his gastroparesis and discussed the risk of this medication in detail with him (2) Chronic pancreatitis Qualifiers: Pancreatitis type: unspecified pancreatitis type Qualified Code(s): K86.1 - Other chronic pancreatitis Is this a current diagnosis for this admission?: Yes Plan: On Creon, continue this with meals No longer drinking alcohol for the past several years per patient (3) Abdominal pain Qualifiers: Is this a current diagnosis for this admission?: Yes Plan: Unable to tolerate p.o., low-dose morphine intermittently in the meantime Does have a history of polysubstance abuse and currently positive for marijuana, use narcotics sparingly (4) Diabetes type 1, uncontrolled Is this a current diagnosis for this admission?: Yes Plan: Takes Lantus 25 units twice daily and sliding scale NovoLog at home Patient admits his blood sugar is extremely poorly controlled 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 to histology teacher outpatient (5) Gastroparesis Is this a current diagnosis for this admission?: Yes Plan: Started on Reglan, Phenergan as needed (6) History of polysubstance abuse Is this a current diagnosis for this admission?: Yes Plan: UDS positive for marijuana (7) Tobacco abuse Is this a current diagnosis for this admission?: Yes Plan: Ongoing smoking, counseled on cessation - Time Time Spent with patient: 35 or more minutes Medications reviewed and adjusted accordingly: Yes Anticipated Discharge Disposition: Home, Self Care Anticipated Discharge Timeframe: within 72 hours - Inpatient Certification Based on my medical assessment, after consideration of the patient's comorbidities, presenting symptoms, or acuity I expect that the services needed warrant INPATIENT care.: Yes I certify that my determination is in accordance with my understanding of Medicare's requirements for reasonable and necessary INPATIENT services [42 CFR 412.3e].: Yes Medical Necessity: Significant Comorbidiites Make Outpatient Treatment Too Risky, Need Close Monitoring Due to Risk of Patient Decompensation, Need For IV Fluids, Need for IV Antibiotics, Risk of Complication if Not Cared For in Hospital, Risk of Diagnosis Which Will Require Inpatient Eval/Care/Monitoring
--- NOTE | 2019-09-26 18:43 | ADVANCED CARE ---
- Diagnosis (1) Nausea and vomiting Diagnosis Current: Yes (2) Chronic pancreatitis Diagnosis Current: Yes (3) Abdominal pain Diagnosis Current: Yes (4) Diabetes type 1, uncontrolled Diagnosis Current: Yes (5) Gastroparesis Diagnosis Current: Yes (6) History of polysubstance abuse Diagnosis Current: Yes (7) Tobacco abuse Diagnosis Current: Yes Attendance: Patient Resuscitation Status: Full Code Discussion: All aspects of code status discussed with patient/POA including cardioversion, chest compressions, and intubation and the patient/POA indicated they wish to be full code MPOA is designated as: Mother Time Spent: Greater than 16 minutes
[2019-09-26 20:24] LABS: ANION GAP 11 (5-19); BLOOD UREA NITROGEN 27 mg/dL (7-20); CARBON DIOXIDE 14 mmol/L (22-30); CHLORIDE 113 mmol/L (98-107); POTASSIUM 3.6 mmol/L (3.6-5.0)
[2019-09-26 20:29] LABS: GLUCOSE 53 mg/dL (75-110)
[2019-09-26] MEDS: METOCLOPRAMIDE HCL INJ/PF 10 MG/2 ML SDV IV SCH (21:12)
[2019-09-26] MEDS: PANTOPRAZOLE SODIUM 40 MG VIAL IV SCH (21:12)
[2019-09-26] MEDS: INSULIN LISPRO 100 UNIT/ML 3 ML VIAL SUBCUT SCH (21:15)
[2019-09-26] MEDS ORDERED: GLUCAGON,HUMAN RECOMB 1 MG INJ IM PRN (21:30)
[2019-09-26] MEDS ORDERED: DEXTROSE 40% GEL 15 GM TUBE PO PRN (21:30)
[2019-09-26] MEDS ORDERED: DEXTROSE 50%-WATER SYRINGE 12.5 GM/25 ML DOSE IV PRN (21:30)
[2019-09-26] MEDS ORDERED: DEXTROSE 40% GEL 15 GM TUBE X 2 PO PRN (21:30)
[2019-09-26] MEDS: MORPHINE SULFATE 10 MG/ML INJ IV PRN (21:31)
[2019-09-27] MEDS: MORPHINE SULFATE 10 MG/ML INJ IV PRN ×2 (03:58→10:52)
[2019-09-27 07:50] LABS: ABSOLUTE EOSINOPHILS # (AUTO) 0.1 10^3/uL (0.0-0.6); ABSOLUTE LYMPHOCYTES (AUTO) 1.1 10^3/uL (0.5-4.7); ABSOLUTE MONOCYTES (AUTO) 0.7 10^3/uL (0.1-1.4); ABSOLUTE NEUT (AUTO) 10.5 10^3/uL (1.7-8.2); BASOPHILS % (AUTO) 0.4 % (0-2); EOSINOPHILS % (AUTO) 0.4 % (0-6); HEMATOCRIT 26.1 % (37.9-51.0); LYMPHOCYTES % (AUTO) 8.5 % (13-45); MEAN CORPUSCULAR HEMOGLOBIN 26.4 pg (27.0-33.4); MEAN CORPUSCULAR VOLUME 83 fl (80-97); MONOCYTES % (AUTO) 5.4 % (3-13); PLATELET COUNT 286 10^3/uL (150-450); RED BLOOD COUNT 3.16 10^6/uL (4.35-5.55); RED CELL DISTRIBUTION WIDTH 20.6 % (11.5-14.0); SEGMENTED NEUTROPHILS % (AUTO) 85.3 % (42-78); TOTAL CELLS COUNTED % (AUTO) 100 %; WHITE BLOOD COUNT 12.3 10^3/uL (4.0-10.5)
[2019-09-27 07:54] LABS: HEMOGLOBIN 8.3 g/dL (13.5-17.0)
[2019-09-27 08:01] LABS: PHOSPHORUS 3.3 mg/dL (2.5-4.5)
[2019-09-27 09:10] LABS: ANION GAP 10 (5-19); BLOOD UREA NITROGEN 23 mg/dL (7-20); CALCIUM 7.4 mg/dL (8.4-10.2); CHLORIDE 119 mmol/L (98-107); POTASSIUM 3.4 mmol/L (3.6-5.0)
[2019-09-27 09:19] LABS: GLUCOSE 66 mg/dL (75-110)
[2019-09-27 10:06] LABS: CARBON DIOXIDE 10 mmol/L (22-30)
[2019-09-27] MEDS: PANTOPRAZOLE SODIUM 40 MG VIAL IV SCH ×2 (10:46→22:33)
[2019-09-27] MEDS: METOCLOPRAMIDE HCL INJ/PF 10 MG/2 ML SDV IV SCH ×4 (10:46→22:34)
[2019-09-27] MEDS: ENOXAPARIN SODIUM INJ 30 MG/0.3 ML DISP.SYRIN SUBCUT SCH (10:46)
[2019-09-27] MEDS: PROMETHAZINE HCL 25 MG TABLET PO PRN ×3 (10:52→22:38)
--- NOTE | 2019-09-27 10:59 | CDI QUERY ---
CDI Query CDI Review: Dear Provider, Please document in progress notes and D/C summary if you agree with the clinical findings: SEVERE PROTEIN CALORIE MALNUTRITION MODERATE PRO-MAYE MALNUTRITION CACHEXIA OTHER Data: BMI 17.1 / Ca 7.4 / uncontrolled DM / Hx drug abuse / U/A + marijuana / electrolyte imbalances Thanks, Hope Barreto CDI [phone]
[2019-09-27] MEDS: DEXTROSE 50%-WATER SYRINGE 25 GM/50 ML DOSE IV PRN (11:56)
--- NOTE | 2019-09-27 14:41 | PDOC PROGRESS REPORT ---
Subjective Progress Note for:: 09/27/19 Subjective:: Patient admitted for UTI, hypoglycemia, nausea/vomiting/gastroparesis exacerbation. On admission, patient frequently asking for advancement of his diet even though he had not even been formally admitted to the hospital yet. Kept him on clear liquid diet which he tolerated well, advance to full liquid diet today and for dinner, he can be advanced to GI bland soft diet if he continues to tolerate oral intake. Strangely, patient continues to have hypoglycemia in the hospital though he is drinking sugary sodas and eating his meals. His kidney function is essentially normal and nursing has voiced concerns that the patient may be self administering insulin in the room in order to prolong his hospitalization. Hopefully, this is not the case but we will need to keep a close eye on the patient as this is certainly a possibility. Patient's bicarbonate is quite low and I started him on sodium bicarb tablets to replete what he is lost from his GI tract. Potassium is also low and I started him on supplemental potassium packets of powder. Hemoglobin A1c is 12.2 and I have counseled the patient on taking control of his blood sugar. I specifically mentioned the possibility that his calluses on his feet may turn into ulcers and he could need below the knee amputations in the future. Patient does not have any complaints today other than generalized fatigue and weakness. He has not complained of abdominal pain at all. Stopped IV morphine. Reason For Visit: DIABETIC GASTROPARESIS VOMITTING T1DM UTI POA Physical Exam Vital Signs: Temp Pulse Resp BP Pulse Ox 97.9 F 106 H 16 125/79 99 09/27/19 10:00 09/27/19 09:14 09/27/19 09:14 09/26/19 23:44 09/27/19 09:14 Intake & Output 09/26/19 09/27/19 09/28/19 06:59 06:59 06:59 Intake Total 2767 Balance 2767 Weight 52.5 kg General appearance: PRESENT: no acute distress, well-developed, well-nourished Head exam: PRESENT: atraumatic, normocephalic Eye exam: PRESENT: conjunctiva pink Mouth exam: PRESENT: moist Respiratory exam: PRESENT: clear to auscultation alfonso. ABSENT: rales, rhonchi, wheezes Cardiovascular exam: PRESENT: RRR. ABSENT: diastolic murmur, rubs, systolic murmur GI/Abdominal exam: PRESENT: normal bowel sounds, soft. ABSENT: distended, guarding, mass, organolmegaly, rebound, tenderness Neurological exam: PRESENT: alert, awake, oriented to person, oriented to place, oriented to time, oriented to situation Psychiatric exam: PRESENT: appropriate affect, normal mood Skin exam: PRESENT: dry, intact Results Laboratory Results: 09/27/19 06:30 09/27/19 06:30 09/26/19 09/26/19 09/26/19 14:50 15:53 19:45 WBC RBC Hgb Hct MCV MCH MCHC RDW Plt Count Seg Neutrophils % Sodium 136.1 L 137.7 Potassium 3.4 L 3.6 Chloride 113 H 113 H Carbon Dioxide 13 L 14 L Anion Gap 10 11 BUN 29 H 27 H Creatinine 1.10 1.07 Est GFR ( Amer) > 60 > 60 Glucose 175 H 53 L Calcium 7.8 L 8.0 L Phosphorus Magnesium Alkaline Phosphatase 380 H Urine Color YELLOW Urine Appearance CLOUDY Urine pH 6.0 Ur Specific [place] 1.012 Urine Protein 100 H Urine Glucose (UA) NEGATIVE Urine Ketones NEGATIVE Urine Blood MODERATE H Urine RBC (Auto) 109 09/27/19 09/27/19 09/27/19 06:30 06:30 06:30 WBC 12.3 H RBC 3.16 L Hgb 8.3 L D Hct 26.1 L MCV 83 MCH 26.4 L MCHC 32.0 RDW 20.6 H Plt Count 286 Seg Neutrophils % 85.3 H Sodium 139.2 Potassium 3.4 L Chloride 119 H Carbon Dioxide 10 L* Anion Gap 10 BUN 23 H Creatinine 1.02 Est GFR ( Amer) > 60 Glucose 66 L Calcium 7.4 L Phosphorus 3.3 Magnesium 1.7 Alkaline Phosphatase Urine Color Urine Appearance Urine pH Ur Specific [place] Urine Protein Urine Glucose (UA) Urine Ketones Urine Blood Urine RBC (Auto) 09/26/19 09/26/19 09:05 15:53 Troponin I < 0.012 < 0.012 Impressions: Abdomen/Pelvis CT 09/26/19 12:00 IMPRESSION: 1. Branching nodular opacities in the right middle lobe (image 2 of series 4) which could represent an infectious or inflammatory process. 2. Coarse pancreatic parenchymal calcifications consistent with chronic pancreatitis. There is a new 22 x 22 mm hypodense structure in the region of the gallbladder neck which could represent a pseudocyst. 3. The 5 mm calcification in the left hemipelvis, posterior and inferior to the urinary bladder (image 60 of series 3), could represent a calculus within the distal ureter - consider correlation with ultrasound to evaluate for hydronephrosis. 4. The urinary bladder is distended, its wall is thickened and there are layering calcifications within its lumen that could represent calculi. Correlate for urinary retention. 5. Grade 5 anterolisthesis of L5 relative to S1. 6. Pneumobilia in the left hepatic lobe - correlate for prior history of sphincterectomy. Chest X-Ray 09/26/19 12:33 IMPRESSION: The tip of the newly placed right subclavian vein approach central venous catheter projects within the SVC. Assessment and Plan - Diagnosis (1) Nausea and vomiting Qualifiers: Vomiting Intractability: intractable Is this a current diagnosis for this admission?: Yes Plan: Likely due to severe gastroparesis, UTI, poorly controlled diabetes IV fluids for rehydration Gradually advance diet, start with clear liquids Phenergan only, patient states he is allergic to Zofran Started on Reglan to help with his gastroparesis and discussed the risk of this medication in detail with him Resolved, continue Reglan with meals (2) Chronic pancreatitis Qualifiers: Pancreatitis type: unspecified pancreatitis type Qualified Code(s): K86.1 - Other chronic pancreatitis Is this a current diagnosis for this admission?: Yes Plan: On Creon, continue this with meals No longer drinking alcohol for the past several years per patient Stable (3) Abdominal pain Qualifiers: Is this a current diagnosis for this admission?: Yes Plan: Unable to tolerate p.o., low-dose morphine intermittently in the meantime Does have a history of polysubstance abuse and currently positive for marijuana, use narcotics sparingly Resolved, stop morphine (4) Diabetes type 1, uncontrolled Is this a current diagnosis for this admission?: Yes Plan: Takes Lantus 25 units twice daily and sliding scale NovoLog at home, holding all scheduled insulin due to hypoglycemia Patient admits his blood sugar is extremely poorly controlled 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 to drying frame 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 A1c is 12.2, extremely poorly controlled blood sugar, patient counseled on improving his blood sugar (5) Gastroparesis Is this a current diagnosis for this admission?: Yes Plan: Started on Reglan, Phenergan as needed (6) History of polysubstance abuse Is this a current diagnosis for this admission?: Yes (7) Tobacco abuse Is this a current diagnosis for this admission?: Yes - Time Time Spent with patient: 15-24 minutes Medications reviewed and adjusted accordingly: Yes Anticipated Discharge Disposition: Home, Self Care Anticipated Discharge Timeframe: within 48 hours - Inpatient Certification Based on my medical assessment, after consideration of the patient's comorbidities, presenting symptoms, or acuity I expect that the services needed warrant INPATIENT care.: Yes I certify that my determination is in accordance with my understanding of Medicare's requirements for reasonable and necessary INPATIENT services [42 CFR 412.3e].: Yes Medical Necessity: Significant Comorbidiites Make Outpatient Treatment Too Risky, Need Close Monitoring Due to Risk of Patient Decompensation, Risk of Com plication if Not Cared For in Hospital, Risk of Diagnosis Which Will Require Inpatient Eval/Care/Monitoring
[2019-09-27] MEDS: INSULIN LISPRO 100 UNIT/ML 3 ML VIAL SUBCUT SCH ×4 (15:18→22:35)
[2019-09-27] MEDS: SODIUM BICARBONATE 650 MG TABLET PO SCH ×2 (15:25→22:34)
[2019-09-27] MEDS: POTASSIUM CHLORIDE 20 MEQ PACKET PO SCH ×2 (15:25→22:35)
[2019-09-27] MEDS: CEFTRIAXONE 2 GM/D5W RTU 2 GM/50 ML RTUPB IV SCH (22:34)
[2019-09-28 08:31] LABS: ABSOLUTE EOSINOPHILS # (AUTO) 0.2 10^3/uL (0.0-0.6); ABSOLUTE LYMPHOCYTES (AUTO) 0.9 10^3/uL (0.5-4.7); ABSOLUTE MONOCYTES (AUTO) 0.6 10^3/uL (0.1-1.4); ABSOLUTE NEUT (AUTO) 5.7 10^3/uL (1.7-8.2); BASOPHILS % (AUTO) 0.5 % (0-2); EOSINOPHILS % (AUTO) 2.9 % (0-6); HEMATOCRIT 28.1 % (37.9-51.0); HEMOGLOBIN 8.9 g/dL (13.5-17.0); LYMPHOCYTES % (AUTO) 11.9 % (13-45); MEAN CORPUSCULAR HEMOGLOBIN 26.7 pg (27.0-33.4); MEAN CORPUSCULAR HGB CONC 31.6 g/dL (32.0-36.0); MEAN CORPUSCULAR VOLUME 85 fl (80-97); MONOCYTES % (AUTO) 8.3 % (3-13); PLATELET COUNT 268 10^3/uL (150-450); RED BLOOD COUNT 3.33 10^6/uL (4.35-5.55); RED CELL DISTRIBUTION WIDTH 20.8 % (11.5-14.0); SEGMENTED NEUTROPHILS % (AUTO) 76.4 % (42-78); TOTAL CELLS COUNTED % (AUTO) 100 %; WHITE BLOOD COUNT 7.5 10^3/uL (4.0-10.5)
[2019-09-28] MEDS ORDERED: LIPASE PO SCH ×2 (09:00→11:00)
[2019-09-28] MEDS ORDERED: AMYLASE PO SCH ×2 (09:00→11:00)
[2019-09-28] MEDS ORDERED: PROTEASE PO SCH ×2 (09:00→11:00)
[2019-09-28 09:45] LABS: ANION GAP 9 (5-19); BLOOD UREA NITROGEN 13 mg/dL (7-20); CHLORIDE 115 mmol/L (98-107); POTASSIUM 3.7 mmol/L (3.6-5.0)
[2019-09-28 09:56] LABS: CARBON DIOXIDE 9 mmol/L (22-30)
[2019-09-28 09:57] LABS: CALCIUM 6.7 mg/dL (8.4-10.2); GLUCOSE 467 mg/dL (75-110)
[2019-09-28] MEDS ORDERED: INSULIN GLARGINE,HUM.REC.ANLOG 1,000 UNIT/10 ML VIAL SUBCUT SCH ×2 (10:00→22:00)
[2019-09-28] MEDS: ENOXAPARIN SODIUM INJ 30 MG/0.3 ML DISP.SYRIN SUBCUT SCH (10:37)
[2019-09-28] MEDS: POTASSIUM CHLORIDE 20 MEQ PACKET PO SCH ×2 (10:52→21:40)
[2019-09-28] MEDS: PANTOPRAZOLE SODIUM 40 MG VIAL IV SCH ×2 (10:55→21:40)
[2019-09-28] MEDS: METOCLOPRAMIDE HCL INJ/PF 10 MG/2 ML SDV IV SCH ×4 (10:55→21:40)
[2019-09-28] MEDS: SODIUM BICARBONATE 650 MG TABLET PO SCH ×4 (10:57→21:40)
[2019-09-28] MEDS: INSULIN LISPRO 100 UNIT/ML 3 ML VIAL SUBCUT SCH ×5 (10:57→21:33)
[2019-09-28] MEDS: PROMETHAZINE HCL 25 MG TABLET PO PRN (10:57)
--- NOTE | 2019-09-28 13:44 | PDOC PROGRESS REPORT ---
Subjective Subjective:: Patient admitted for UTI, hypoglycemia, nausea/vomiting/gastroparesis exacerbation. On admission, patient frequently asking for advancement of his diet even though he had not even been formally admitted to the hospital yet. Kept him on clear liquid diet which he tolerated well, advance to full liquid diet today and for dinner, he can be advanced to GI bland soft diet if he continues to tolerate oral intake. Strangely, patient continues to have hypoglycemia in the hospital though he is drinking sugary sodas and eating his meals. His kidney function is essentially normal and nursing has voiced concerns that the patient may be self administering insulin in the room in order to prolong his hospitalization. Hopefully, this is not the case but we will need to keep a close eye on the patient as this is certainly a possibility. Patient's bicarbonate is quite low and I started him on sodium bicarb tablets to replete what he is lost from his GI tract. Potassium is also low and I started him on supplemental potassium packets of powder. Hemoglobin A1c is 12.2 and I have counseled the patient on taking control of his blood sugar. I specifically mentioned the possibility that his calluses on his feet may turn into ulcers and he could need below the knee amputations in the future. Patient does not have any complaints today other than generalized fatigue and weakness. He has not complained of abdominal pain at all. Stopped IV morphine. 09/28/2019 Called by nursing this morning stating patient was found at the vending machine buying Fritos and a honey bun. He ate both of these and his blood sugar shot up over 500. Acidosis worsening because of this as well and oral bicarb was increased to 4 times daily. Patient was counseled on eating a diabetic diet but he does not seem to be interested in doing this. We will continue giving correctional insulin and I have restarted him on his home dose Lantus. Without medication compliance and proper diet management, patient will be back to the hospital frequently in the future for additional episodes of DKA. I counseled him extensively on all of this yesterday but he does not seem to be very concerned by the complications of uncontrolled diabetes we spoke about. I believe he has a very poor long-term prognosis. He has no new complaints today. Reason For Visit: DIABETIC GASTROPARESIS VOMITTING T1DM UTI POA Physical Exam Vital Signs: Temp Pulse Resp BP Pulse Ox 97.8 F 94 16 132/73 H 99 09/28/19 10:00 09/28/19 07:00 09/28/19 03:00 09/28/19 03:00 09/28/19 03:00 Intake & Output 09/27/19 09/28/19 09/29/19 06:59 06:59 06:59 Intake Total 2767 2294 Balance 2767 2294 Weight 52.5 kg 53.4 kg General appearance: PRESENT: no acute distress, well-developed, well-nourished Head exam: PRESENT: atraumatic, normocephalic Eye exam: PRESENT: conjunctiva pink Mouth exam: PRESENT: moist Respiratory exam: PRESENT: clear to auscultation alfonso. ABSENT: rales, rhonchi, wheezes Cardiovascular exam: PRESENT: RRR. ABSENT: diastolic murmur, rubs, systolic murmur GI/Abdominal exam: PRESENT: normal bowel sounds, soft. ABSENT: distended, guarding, mass, organolmegaly, rebound, tenderness Neurological exam: PRESENT: alert, awake, oriented to person, oriented to place, oriented to time, oriented to situation Results Laboratory Results: 09/28/19 08:10 09/28/19 08:10 09/28/19 09/28/19 08:10 08:10 WBC 7.5 RBC 3.33 L Hgb 8.9 L Hct 28.1 L MCV 85 MCH 26.7 L MCHC 31.6 L RDW 20.8 H Plt Count 268 Seg Neutrophils % 76.4 Sodium 132.9 L Potassium 3.7 Chloride 115 H Carbon Dioxide 9 L* Anion Gap 9 BUN 13 Creatinine 0.75 Est GFR ( Amer) > 60 Glucose 467 H* Calcium 6.7 L* 09/26/19 14:50 Clean Catch Midstream Urine Culture - Final Staphylococcus Aureus 09/26/19 09/26/19 09:05 15:53 Troponin I < 0.012 < 0.012 Impressions: Abdomen/Pelvis CT 09/26/19 12:00 IMPRESSION: 1. Branching nodular opacities in the right middle lobe (image 2 of series 4) which could represent an infectious or inflammatory process. 2. Coarse pancreatic parenchymal calcifications consistent with chronic pancreatitis. There is a new 22 x 22 mm hypodense structure in the region of the gallbladder neck which could represent a pseudocyst. 3. The 5 mm calcification in the left hemipelvis, posterior and inferior to the urinary bladder (image 60 of series 3), could represent a calculus within the distal ureter - consider correlation with ultrasound to evaluate for hydronephrosis. 4. The urinary bladder is distended, its wall is thickened and there are layering calcifications within its lumen that could represent calculi. Correlate for urinary retention. 5. Grade 5 anterolisthesis of L5 relative to S1. 6. Pneumobilia in the left hepatic lobe - correlate for prior history of sphincterectomy. Chest X-Ray 09/26/19 12:33 IMPRESSION: The tip of the newly placed right subclavian vein approach central venous catheter projects within the SVC. Assessment and Plan - Diagnosis (1) Nausea and vomiting Qualifiers: Vomiting Intractability: intractable Is this a current diagnosis for this admission?: Yes Plan: Likely due to severe gastroparesis, UTI, poorly controlled diabetes IV fluids for rehydration Gradually advance diet, start with clear liquids Phenergan only, patient states he is allergic to Zofran Started on Reglan to help with his gastroparesis and discussed the risk of this medication in detail with him Resolved, continue Reglan with meals (2) Chronic pancreatitis Qualifiers: Pancreatitis type: unspecified pancreatitis type Qualified Code(s): K86.1 - Other chronic pancreatitis Is this a current diagnosis for this admission?: Yes Plan: On Creon, continue this with meals No longer drinking alcohol for the past several years per patient Stable Stopped all narcotics (3) Abdominal pain Qualifiers: Is this a current diagnosis for this admission?: Yes Plan: Unable to tolerate p.o., low-dose morphine intermittently in the meantime Does have a history of polysubstance abuse and currently positive for m arijuana, use narcotics sparingly Resolved, stop narcotics (4) Diabetes type 1, uncontrolled Is this a current diagnosis for this admission?: Yes Plan: Takes Lantus 25 units twice daily and sliding scale NovoLog at home, held in itially all scheduled insulin due to hypoglycemia Patient admits his blood sugar is extremely poorly controlled 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 to linux engineer outpatient A1c is 12.2, extremely poorly controlled blood sugar, patient counseled on improving his blood sugar 09/28/2019 Patient getting multiple sugary snacks from vending machine, blood sugar shot up to over 500 today, counseled on why he should not do this Restarted home Lantus (5) Gastroparesis Is this a current diagnosis for this admission?: Yes (6) History of polysubstance abuse Is this a current diagnosis for this admission?: Yes (7) Tobacco abuse Is this a current diagnosis for this admission?: Yes (8) Noncompliance Is this a current diagnosis for this admission?: Yes Plan: Seen by nursing buying honey buns and chips from vending machine. Counseled on diabetic diet - Time Time Spent with patient: 25-34 minutes Medications reviewed and adjusted accordingly: Yes Anticipated Discharge Disposition: Home, Self Care Anticipated Discharge Timeframe: within 48 hours - Inpatient Certification Based on my medical assessment, after consideration of the patient's comorbidities, presenting symptoms, or acuity I expect that the services needed warrant INPATIENT care.: Yes I certify that my determination is in accordance with my understanding of Medicare's requirements for reasonable and necessary INPATIENT services [42 CFR 412.3e].: Yes Medical Necessity: Significant Comorbidiites Make Outpatient Treatment Too Risky, Need Close Monitoring Due to Risk of Patient Decompensation, Risk of Complication if Not Cared For in Hospital, Risk of Diagnosis Which Will Require Inpatient Eval/Care/Monitoring
[2019-09-28 14:16] LABS: ANION GAP 9 (5-19); BLOOD UREA NITROGEN 15 mg/dL (7-20); CALCIUM 7.9 mg/dL (8.4-10.2); CARBON DIOXIDE 12 mmol/L (22-30); CHLORIDE 112 mmol/L (98-107); POTASSIUM 4.4 mmol/L (3.6-5.0)
[2019-09-28 14:27] LABS: GLUCOSE 586 mg/dL (75-110)
[2019-09-28] MEDS ORDERED: INSULIN GLARGINE,HUM.REC.ANLOG 1,000 UNIT/10 ML VIAL (PYX) SUBCUT ONE (15:00)
[2019-09-28] MEDS ORDERED: INSULIN LISPRO 100 UNIT/ML 3 ML VIAL SUBCUT SCH (16:00)
[2019-09-28] MEDS: CEFTRIAXONE 2 GM/D5W RTU 2 GM/50 ML RTUPB IV SCH (21:39)
[2019-09-28] MEDS: RINGERS SOLUTION,LACTATED 1,000 ML IV PRN (23:25)
[2019-09-29 05:59] LABS: ABSOLUTE BASOPHILS # (AUTO) 0.1 10^3/uL (0.0-0.2); ABSOLUTE EOSINOPHILS # (AUTO) 0.3 10^3/uL (0.0-0.6); ABSOLUTE LYMPHOCYTES (AUTO) 1.1 10^3/uL (0.5-4.7); ABSOLUTE MONOCYTES (AUTO) 0.9 10^3/uL (0.1-1.4); ABSOLUTE NEUT (AUTO) 7.2 10^3/uL (1.7-8.2); BASOPHILS % (AUTO) 0.7 % (0-2); EOSINOPHILS % (AUTO) 2.8 % (0-6); HEMATOCRIT 26.7 % (37.9-51.0); HEMOGLOBIN 8.8 g/dL (13.5-17.0); LYMPHOCYTES % (AUTO) 11.8 % (13-45); MEAN CORPUSCULAR HEMOGLOBIN 27.2 pg (27.0-33.4); MEAN CORPUSCULAR HGB CONC 33.1 g/dL (32.0-36.0); MEAN CORPUSCULAR VOLUME 82 fl (80-97); MONOCYTES % (AUTO) 9.8 % (3-13); PLATELET COUNT 269 10^3/uL (150-450); RED BLOOD COUNT 3.25 10^6/uL (4.35-5.55); RED CELL DISTRIBUTION WIDTH 20.3 % (11.5-14.0); SEGMENTED NEUTROPHILS % (AUTO) 74.9 % (42-78); TOTAL CELLS COUNTED % (AUTO) 100 %; WHITE BLOOD COUNT 9.7 10^3/uL (4.0-10.5)
[2019-09-29 06:12] LABS: ANION GAP 8 (5-19); BLOOD UREA NITROGEN 15 mg/dL (7-20); CALCIUM 8.2 mg/dL (8.4-10.2); CARBON DIOXIDE 12 mmol/L (22-30); CHLORIDE 117 mmol/L (98-107); GLUCOSE 97 mg/dL (75-110); POTASSIUM 4.2 mmol/L (3.6-5.0)
[2019-09-29] MEDS: DEXTROSE 50%-WATER SYRINGE 25 GM/50 ML DOSE IV PRN ×2 (08:03→17:15)
[2019-09-29] MEDS: INSULIN LISPRO 100 UNIT/ML 3 ML VIAL SUBCUT SCH ×7 (08:41→21:23)
[2019-09-29] MEDS ORDERED: INSULIN GLARGINE,HUM.REC.ANLOG 1,000 UNIT/10 ML VIAL (PYX) SUBCUT ONE ×2 (08:45→11:15)
[2019-09-29] MEDS ORDERED: INSULIN GLARGINE,HUM.REC.ANLOG 1,000 UNIT/10 ML VIAL SUBCUT ONE (09:00)
[2019-09-29] MEDS: METOCLOPRAMIDE HCL INJ/PF 10 MG/2 ML SDV IV SCH ×4 (09:02→21:22)
[2019-09-29] MEDS: RINGERS SOLUTION,LACTATED 1,000 ML IV PRN ×2 (09:02→17:47)
[2019-09-29] MEDS: POTASSIUM CHLORIDE 20 MEQ PACKET PO SCH ×2 (09:06→21:23)
[2019-09-29] MEDS: ENOXAPARIN SODIUM INJ 40 MG/0.4 ML DISP.SYRIN SUBCUT SCH (09:07)
[2019-09-29] MEDS: SODIUM BICARBONATE 650 MG TABLET PO SCH ×4 (09:07→21:20)
[2019-09-29] MEDS: PANTOPRAZOLE SODIUM 40 MG VIAL IV SCH (09:07)
[2019-09-29] MEDS: PROMETHAZINE HCL INJ 25 MG/1 ML VIAL IV PRN ×3 (09:13→18:22)
--- NOTE | 2019-09-29 18:13 | PDOC PROGRESS REPORT ---
Subjective Subjective:: Patient admitted for UTI, hypoglycemia, nausea/vomiting/gastroparesis exacerbation. On admission, patient frequently asking for advancement of his diet even though he had not even been formally admitted to the hospital yet. Kept him on clear liquid diet which he tolerated well, advance to full liquid diet today and for dinner, he can be advanced to GI bland soft diet if he continues to tolerate oral intake. Strangely, patient continues to have hypoglycemia in the hospital though he is drinking sugary sodas and eating his meals. His kidney function is essentially normal and nursing has voiced concerns that the patient may be self administering insulin in the room in order to prolong his hospitalization. Hopefully, this is not the case but we will need to keep a close eye on the patient as this is certainly a possibility. Patient's bicarbonate is quite low and I started him on sodium bicarb tablets to replete what he is lost from his GI tract. Potassium is also low and I started him on supplemental potassium packets of powder. Hemoglobin A1c is 12.2 and I have counseled the patient on taking control of his blood sugar. I specifically mentioned the possibility that his calluses on his feet may turn into ulcers and he could need below the knee amputations in the future. Patient does not have any complaints today other than generalized fatigue and weakness. He has not complained of abdominal pain at all. Stopped IV morphine. 09/28/2019 Called by nursing this morning stating patient was found at the vending machine buying Fritos and a honey bun. He ate both of these and his blood sugar shot up over 500. Acidosis worsening because of this as well and oral bicarb was increased to 4 times daily. Patient was counseled on eating a diabetic diet but he does not seem to be interested in doing this. We will continue giving correctional insulin and I have restarted him on his home dose Lantus. Without medication compliance and proper diet management, patient will be back to the hospital frequently in the future for additional episodes of DKA. I counseled him extensively on all of this yesterday but he does not seem to be very concerned by the complications of uncontrolled diabetes we spoke about. I believe he has a very poor long-term prognosis. He has no new complaints today. 09/29/2019 Blood sugar continues to be extremely labile flip-flopping between 50s/40s and mid 200s without any values in between it seems. I have reduced his mealtime insulin to 5 units lispro and I have reduced his Lantus back to his home dose of 25 units twice daily. He seems to be eating all of his meals 100% and reportedly eating snacks in between as well. Possible his UTI is having some lingering effects on his cortisol release, possible he could have a cofactor/vitamin/nutritional deficiency causing a deficiency and cortisol itself or he could be developing general adrenal insufficiency. Patient has no complaints today. We will continue adjusting his insulin and rechecking his b lood sugar until he can stabilize his numbers. Reason For Visit: DIABETIC GASTROPARESIS VOMITTING T1DM UTI POA Physical Exam Vital Signs: Temp Pulse Resp BP Pulse Ox 98.3 F 90 18 139/91 H 100 09/29/19 11:11 09/29/19 14:00 09/29/19 11:11 09/29/19 11:11 09/29/19 11:11 Intake & Output 09/28/19 09/29/19 09/30/19 06:59 06:59 06:59 Intake Total 2344 4650 2988 Balance 2344 4650 2988 Weight 53.4 kg 57.1 kg General appearance: PRESENT: no acute distress, thin Head exam: PRESENT: atraumatic, normocephalic Eye exam: PRESENT: conjunctiva pink Mouth exam: PRESENT: moist Respiratory exam: PRESENT: clear to auscultation alfonso. ABSENT: rales, rhonchi, wheezes Cardiovascular exam: PRESENT: RRR. ABSENT: diastolic murmur, rubs, systolic murmur GI/Abdominal exam: PRESENT: normal bowel sounds, soft. ABSENT: distended, guarding, mass, organolmegaly, rebound, tenderness Neurological exam: PRESENT: alert, awake, oriented to person, oriented to place, oriented to time, oriented to situation Skin exam: PRESENT: dry, intact, warm Results Laboratory Results: 09/29/19 05:15 09/29/19 05:15 09/29/19 09/29/19 05:15 05:15 WBC 9.7 RBC 3.25 L Hgb 8.8 L Hct 26.7 L MCV 82 MCH 27.2 MCHC 33.1 RDW 20.3 H Plt Count 269 Seg Neutrophils % 74.9 Sodium 137.3 Potassium 4.2 Chloride 117 H Carbon Dioxide 12 L Anion Gap 8 BUN 15 Creatinine 1.05 Est GFR ( Amer) > 60 Glucose 97 Calcium 8.2 L 09/26/19 09/26/19 09:05 15:53 Troponin I < 0.012 < 0.012 Impressions: Abdomen/Pelvis CT 09/26/19 12:00 IMPRESSION: 1. Branching nodular opacities in the right middle lobe (image 2 of series 4) which could represent an infectious or inflammatory process. 2. Coarse pancreatic parenchymal calcifications consistent with chronic pancreatitis. There is a new 22 x 22 mm hypodense structure in the region of the gallbladder neck which could represent a pseudocyst. 3. The 5 mm calcification in the left hemipelvis, posterior and inferior to the urinary bladder (image 60 of series 3), could represent a calculus within the distal ureter - consider correlation with ultrasound to evaluate for hydronephrosis. 4. The urinary bladder is distended, its wall is thickened and there are layering calcifications within its lumen that could represent calculi. Correlate for urinary retention. 5. Grade 5 anterolisthesis of L5 relative to S1. 6. Pneumobilia in the left hepatic lobe - correlate for prior history of sphincterectomy. Chest X-Ray 09/26/19 12:33 IMPRESSION: The tip of the newly placed right subclavian vein approach central venous catheter projects within the SVC. Assessment and Plan - Diagnosis (1) Nausea and vomiting Qualifiers: Vomiting Intractability: intractable Is this a current diagnosis for this admission?: Yes (2) Chronic pancreatitis Qualifiers: Pancreatitis type: unspecified pancreatitis type Qualified Code(s): K86.1 - Other chronic pancreatitis Is this a current diagnosis for this admission?: Yes (3) Abdominal pain Qualifiers: Is this a current diagnosis for this admission?: Yes (4) Diabetes type 1, uncontrolled Is this a current diagnosis for this admission?: Yes Plan: Takes Lantus 25 units twice daily and sliding scale NovoLog at home, held initially all scheduled insulin due to hypoglycemia Patient admits his blood sugar is extremely poorly controlled 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 to phototypesetting equipment monitor outpatient A1c is 12.2, extremely poorly controlled blood sugar, patient counseled on improving his blood sugar 09/28/2019 Patient getting multiple sugary snacks from vending machine, blood sugar shot up to over 500 today, counseled on why he should not do this Restarted home Lantus 09/28/2022 Extremely labile blood sugars ranging from the 30s up to the 250s from one moment to the next. Reduce Lantus to 25 units twice daily and reduce mealtime lispro to 5 units 3 times daily AC Check cortisol, start vitamins (5) Gastroparesis Is this a current diagnosis for this admission?: Yes Plan: Started on Reglan, Phenergan as needed Well-controlled on Reglan, good appetite now (6) History of polysubstance abuse Is this a current diagnosis for this admission?: Yes (7) Tobacco abuse Is this a current diagnosis for this admission?: Yes (8) Noncompliance Is this a current diagnosis for this admission?: Yes - Time Time Spent with patient: 25-34 minutes Medications reviewed and adjusted accordingly: Yes Anticipated Discharge Disposition: Home, Self Care Anticipated Discharge Timeframe: within 48 hours - Inpatient Certification Based on my medical assessment, after consideration of the patient's comorbidities, presenting symptoms, or acuity I expect that the services needed warrant INPATIENT care.: Yes I certify that my determination is in accordance with my understanding of Medicare's requirements for reasonable and necessary INPATIENT services [42 CFR 412.3e].: Yes Medical Necessity: Significant Comorbidiites Make Outpatient Treatment Too Risky, Need Close Monitoring Due to Risk of Patient Decompensation, Risk of Complication if Not Cared For in Hospital, Risk of Diagnosis Which Will Require Inpatient Eval/Care/Monitoring
[2019-09-29] MEDS: ASCORBIC ACID 500 MG TABLET PO SCH (21:18)
[2019-09-29] MEDS: CHOLECALCIFEROL (D3) 1,000 UNIT (25 MCG) TABLET PO SCH (21:19)
[2019-09-29] MEDS: MULTIVITAMIN TABLET PO SCH (21:19)
[2019-09-29] MEDS: THIAMINE HCL 100 MG TABLET PO SCH (21:19)
[2019-09-29] MEDS: CEFTRIAXONE 2 GM/D5W RTU 2 GM/50 ML RTUPB IV SCH (21:20)
[2019-09-29] MEDS: INSULIN GLARGINE,HUM.REC.ANLOG 1,000 UNIT/10 ML VIAL SUBCUT SCH (21:22)
[2019-09-30] MEDS: RINGERS SOLUTION,LACTATED 1,000 ML IV PRN ×2 (01:53→10:17)
[2019-09-30] MEDS: PROMETHAZINE HCL INJ 25 MG/1 ML VIAL IV PRN ×3 (03:33→12:12)
[2019-09-30 07:06] LABS: ANION GAP 7 (5-19); BLOOD UREA NITROGEN 11 mg/dL (7-20); CALCIUM 7.9 mg/dL (8.4-10.2); CARBON DIOXIDE 15 mmol/L (22-30); CHLORIDE 119 mmol/L (98-107); GLUCOSE 210 mg/dL (75-110); POTASSIUM 4.5 mmol/L (3.6-5.0)
[2019-09-30] MEDS: INSULIN LISPRO 100 UNIT/ML 3 ML VIAL SUBCUT SCH ×4 (07:46→12:08)
[2019-09-30] MEDS: METOCLOPRAMIDE HCL INJ/PF 10 MG/2 ML SDV IV SCH ×2 (07:47→12:08)
[2019-09-30] MEDS: ENOXAPARIN SODIUM INJ 40 MG/0.4 ML DISP.SYRIN SUBCUT SCH (10:10)
[2019-09-30] MEDS: INSULIN GLARGINE,HUM.REC.ANLOG 1,000 UNIT/10 ML VIAL SUBCUT SCH (10:16)
[2019-09-30] MEDS: ASCORBIC ACID 500 MG TABLET PO SCH (10:17)
[2019-09-30] MEDS: POTASSIUM CHLORIDE 20 MEQ PACKET PO SCH (10:17)
[2019-09-30] MEDS: MULTIVITAMIN TABLET PO SCH (10:17)
[2019-09-30] MEDS: CHOLECALCIFEROL (D3) 1,000 UNIT (25 MCG) TABLET PO SCH (10:17)
[2019-09-30] MEDS: THIAMINE HCL 100 MG TABLET PO SCH (10:17)
[2019-09-30] MEDS: SODIUM BICARBONATE 650 MG TABLET PO SCH (10:17)
--- NOTE | 2019-09-30 13:26 | PDOC DISCHARGE SUMMARY ---
Impression - Admit/DC Date/PCP Admission Date/Primary Care Provider: 09/26/19 16:26 Discharge Date: 09/30/19 - Discharge Diagnosis (1) Nausea and vomiting Is this a current diagnosis for this admission?: Yes (2) Chronic pancreatitis Is this a current diagnosis for this admission?: Yes (3) Abdominal pain Is this a current diagnosis for this admission?: Yes (4) Diabetes type 1, uncontrolled Is this a current diagnosis for this admission?: Yes (5) Gastroparesis Is this a current diagnosis for this admission?: Yes (6) History of polysubstance abuse Is this a current diagnosis for this admission?: Yes (7) Tobacco abuse Is this a current diagnosis for this admission?: Yes (8) Noncompliance Is this a current diagnosis for this admission?: Yes - Additional Information Resuscitation Status: Full Code Discharge Diet: As Tolerated, Diabetic Discharge Activity: Activity As Tolerated, Balance Activity w/Rest Prescriptions: Insulin Lispro [Humalog Insulin (Lispro) 100 unit/mL] 5 unit SUBCUT AC #10 vial Cephalexin Monohydrate [Keflex 250 mg Capsule] 250 mg PO Q8 #1 capsule Metoclopramide HCl [Reglan] 5 mg PO MEALS #90 tablet Multivitamin [Tab-A-Ever (Multiple Vitamin) Tablet] 1 tab PO DAILY #30 tablet Home Medications: Insulin Aspart [Novolog Flexpen] 0 unit SUBCUT .SLD SCALE 09/26/19 Insulin Glargine,Hum.rec.anlog [Lantus Insulin 100 Unit/1 ml 10 ml] 25 unit SQ Q12 09/26/19 Lipase/Protease/Amylase [Nate Rodríguez 36,000 Units Capsule] 1 cap PO .SNACKS 09/26/19 Lipase/Protease/Amylase [Nate Rodríguez 36,000 Units Capsule] 1 cap PO AC 09/26/19 Cephalexin Monohydrate [Keflex 250 mg Capsule] 250 mg PO Q8 #1 capsule 09/30/19 Insulin Lispro [Humalog Insulin (Lispro) 100 unit/mL] 5 unit SUBCUT AC #10 vial 09/30/19 Metoclopramide HCl [Reglan] 5 mg PO MEALS #90 tablet 09/30/19 Multivitamin [Tab-A-Ever (Multiple Vitamin) Tablet] 1 tab PO DAILY #30 tablet 09/30/19 History of Present Illiness History of Present Illness: CHESTER MCKEON is a 39 year old male past medical history significant for type 1 diabetes mellitus uncontrolled, chronic pancreatitis on Creon, chronic gastroparesis, chronic tobacco abuse and marijuana abuse who presents with a 2- day history of progressive abdominal pain/shortness of breath/nausea/vomiting/diarrhea/hypoglycemia. Patient states she is also had some intermittent difficulty getting urine out of his bladder. ED was going to [facility]adder[facility] patient but patient voided spontaneously a copious manner urine. UA consistent with UTI patient was started on ceftriaxone, urine culture pending. Blood sugar notably was in the 30s on admission patient was given glucose to bring this up. Patient states he typically takes Lantus 25 units twice daily and NovoLog sliding scale insulin at home. He also states his blood sugar is extremely poorly controlled day-to-day. He has not taken any medications for his gastroparesis and he feels like this may be exacerbated currently. He has not eaten any food in the past 2 to 3 days which makes sense given his severe hypoglycemia. He is a current smoker of tobacco and hemp although he states he smoked marijuana in the past. UDS is positive for marijuana. Patient started on LR, clear liquid diet, Reglan, pantoprazole. Hospital Course Hospital Course: Patient admitted for UTI, hypoglycemia, nausea/vomiting/gastroparesis exacerbation. On admission, patient frequently asking for advancement of his diet even though he had not even been formally admitted to the hospital yet. Kept him on clear liquid diet which he tolerated well, advance to full liquid diet today and for dinner, he can be advanced to GI bland soft diet if he continues to tolerate oral intake. Strangely, patient continues to have hypoglycemia in the hospital though he is drinking sugary sodas and eating his meals. His kidney function is essentially normal and nursing has voiced concerns that the patient may be self administering insulin in the room in order to prolong his hospitalization. Hopefully, this is not the case but we will need to keep a close eye on the patient as this is certainly a possibility. Patient's bicarbonate is quite low and I started him on sodium bicarb tablets to replete what he is lost from his GI tract. Potassium is also low and I started him on supplemental potassium packets of powder. Hemoglobin A1c is 12.2 and I have counseled the patient on taking control of his blood sugar. I specifically mentioned the possibility that his calluses on his feet may turn into ulcers and he could need below the knee amputations in the future. Patient does not have any complaints today other than generalized fatigue and weakness. He has not complained of abdominal pain at all. Stopped IV morphine. 09/28/2019 Called by nursing this morning stating patient was found at the vending machine buying Fritos and a honey bun. He ate both of these and his blood sugar shot up over 500. Acidosis worsening because of this as well and oral bicarb was increased to 4 times daily. Patient was counseled on eating a diabetic diet but he does not seem to be interested in doing this. We will continue giving correctional insulin and I have restarted him on his home dose Lantus. Without medication compliance and proper diet management, patient will be back to the hospital frequently in the future for additional episodes of DKA. I counseled him extensively on all of this yesterday but he does not seem to be very concerned by the complications of uncontrolled diabetes we spoke about. I believe he has a very poor long-term prognosis. He has no new complaints today. 09/29/2019 Blood sugar continues to be extremely labile flip-flopping between 50s/40s and mid 200s without any values in between it seems. I have reduced his mealtime insulin to 5 units lispro and I have reduced his Lantus back to his home dose of 25 units twice daily. He seems to be eating all of his meals 100% and repor tedly eating snacks in between as well. Possible his UTI is having some lingering effects on his cortisol release, possible he could have a cofactor/vitamin/nutritional deficiency causing a deficiency and cortisol itself or he could be developing general adrenal insufficiency. Patient has no complaints today. We will continue adjusting his insulin and rechecking his blood sugar until he can stabilize his numbers. 09/30/2019 Blood sugars have stabilized and we have rather excellent control compared to when his sugar typically runs. His blood sugar is now neither exceptionally high nor low and is running in the mid 100s. He will take 1 more day of Keflex to complete his UTI course of 5 days. He will be on 25 units of Lantus every 12 hours as well as 5 units of lispro 3 times daily AC and sliding scale insulin as well. He understands he should not take his mealtime insulin if he is not eating a meal. 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 He was discharged on Reglan 3 times daily AC to treat his severe refractory gastroparesis. The risks of taking this medicine including tardive dyskinesia were explained in detail to the patient and he wanted to continue taking it as it has significantly helped his vomiting related to gastroparesis. He will need his PCP to follow this medication and give any refills as they see fit. Physical Exam Vital Signs: Temp Pulse Resp BP Pulse Ox 98.1 F 90 15 137/99 H 100 09/30/19 10:00 09/30/19 07:32 09/30/19 07:32 09/30/19 07:32 09/30/19 07:32 Intake & Output 09/29/19 09/30/19 10/01/19 06:59 06:59 06:59 Intake Total 4650 6117 1000 Balance 4650 6117 1000 Weight 57.1 kg 58.3 kg General appearance: PRESENT: no acute distress, well-developed, well-nourished Head exam: PRESENT: atraumatic, normocephalic Eye exam: PRESENT: conjunctiva pink Mouth exam: PRESENT: moist Respiratory exam: PRESENT: clear to auscultation alfonso. ABSENT: rales, rhonchi, wheezes Cardiovascular exam: PRESENT: RRR. ABSENT: diastolic murmur, rubs, systolic murmur GI/Abdominal exam: PRESENT: normal bowel sounds, soft. ABSENT: distended, guarding, mass, organolmegaly, rebound, tenderness Neurological exam: PRESENT: alert, awake, oriented to person, oriented to place, oriented to time, oriented to situation Psychiatric exam: PRESENT: appropriate affect, normal mood Skin exam: PRESENT: dry, intact, warm Results Laboratory Results: WBC 9.7 10^3/uL (4.0-10.5) 09/29/19 05:15 RBC 3.25 10^6/uL (4.35-5.55) L 09/29/19 05:15 Hgb 8.8 g/dL (13.5-17.0) L 09/29/19 05:15 Hct 26.7 % (37.9-51.0) L 09/29/19 05:15 MCV 82 fl (80-97) 09/29/19 05:15 MCH 27.2 pg (27.0-33.4) 09/29/19 05:15 MCHC 33.1 g/dL (32.0-36.0) 09/29/19 05:15 RDW 20.3 % (11.5-14.0) H 09/29/19 05:15 Plt Count 269 10^3/uL (150-450) 09/29/19 05:15 Lymph % (Auto) 11.8 % (13-45) L 09/29/19 05:15 [place] % (Auto) 9.8 % (3-13) 09/29/19 05:15 Eos % (Auto) 2.8 % (0-6) 09/29/19 05:15 Baso % (Auto) 0.7 % (0-2) 09/29/19 05:15 Absolute Neuts (auto) 7.2 10^3/uL (1.7-8.2) 09/29/19 05:15 Absolute Lymphs (auto) 1.1 10^3/uL (0.5-4.7) 09/29/19 05:15 Absolute Monos (auto) 0.9 10^3/uL (0.1-1.4) 09/29/19 05:15 Absolute Eos (auto) 0.3 10^3/uL (0.0-0.6) 09/29/19 05:15 Absolute Basos (auto) 0.1 10^3/uL (0.0-0.2) 09/29/19 05:15 Seg Neutrophils % 74.9 % (42-78) 09/29/19 05:15 VBG pH 7.23 (7.30-7.42) L 09/26/19 11:18 VBG pCO2 32.7 mmHg (35-63) L 09/26/19 11:18 VBG HCO3 13.2 mmol/L (20-32) L 09/26/19 11:18 VBG Base Excess -13.2 mmol/L 09/26/19 11:18 Sodium 140.5 mmol/L (137-145) 09/30/19 06:26 Potassium 4.5 mmol/L (3.6-5.0) 09/30/19 06:26 Chloride 119 mmol/L (98-107) H 09/30/19 06:26 Carbon Dioxide 15 mmol/L (22-30) L 09/30/19 06:26 Anion Gap 7 (5-19) 09/30/19 06:26 BUN 11 mg/dL (7-20) 09/30/19 06:26 Creatinine 0.93 mg/dL (0.52-1.25) 09/30/19 06:26 Est GFR ( Amer) > 60 (>60) 09/30/19 06:26 Est GFR (MDRD) Non-Af > 60 (>60) 09/30/19 06:26 Glucose 210 mg/dL (75-110) H 09/30/19 06:26 POC Glucose 135 mg/dL (70-110) H 09/30/19 11:34 Hemoglobin A1c % 12.2 % (4.7-6.0) H 09/27/19 06:30 Lactic Acid 1.3 mmol/L (0.7-2.1) 09/26/19 11:18 Calcium 7.9 mg/dL (8.4-10.2) L 09/30/19 06:26 Phosphorus 3.3 mg/dL (2.5-4.5) 09/27/19 06:30 Magnesium 1.7 mg/dL (1.6-2.3) 09/27/19 06:30 Total Bilirubin 0.9 mg/dL (0.2-1.3) 09/26/19 09:05 Direct Bilirubin 0.4 mg/dL (0.0-0.4) 09/26/19 09:05 Neonat Total Bilirubin Not Reportable 09/26/19 09:05 Neonat Direct Bilirubin Not Reportable 09/26/19 09:05 Neonat Indirect Bili Not Reportable 09/26/19 09:05 AST 32 U/L (17-59) 09/26/19 09:05 ALT 19 U/L (<50) 09/26/19 09:05 Alkaline Phosphatase 380 U/L (38-126) H 09/26/19 15:53 Troponin I < 0.012 ng/mL 09/26/19 15:53 Total Protein 9.0 g/dL (6.3-8.2) H 09/26/19 09:05 Albumin 3.3 g/dL (3.5-5.0) L 09/26/19 09:05 Lipase 103.7 U/L (23-300) 09/26/19 09:05 Urine Color YELLOW 09/26/19 14:50 Urine Appearance CLOUDY 09/26/19 14:50 Urine pH 6.0 (5.0-9.0) 09/26/19 14:50 Ur Specific [place] 1.012 09/26/19 14:50 Urine Protein 100 mg/dL (NEGATIVE) H 09/26/19 14:50 Urine Glucose (UA) NEGATIVE mg/dL (NEGATIVE) 09/26/19 14:50 Urine Ketones NEGATIVE mg/dL (NEGATIVE) 09/26/19 14:50 Urine Blood MODERATE (NEGATIVE) H 09/26/19 14:50 Urine Nitrite (Reflex) NEGATIVE (NEGATIVE) 09/26/19 14:50 Urine Bilirubin NEGATIVE (NEGATIVE) 09/26/19 14:50 Urine Urobilinogen NEGATIVE mg/dL (<2.0) 09/26/19 14:50 Leukocyte Esterase Rfl LARGE (NEGATIVE) H 09/26/19 14:50 Urine RBC (Auto) 109 /HPF 09/26/19 14:50 Urine Bacteria (Auto) 3+ /HPF 09/26/19 14:50 Urine WBC (Reflex) 152 /HPF 09/26/19 14:50 Squamous Epi Cells Auto 1 /HPF 09/26/19 14:50 Amorphous Sediment Auto TRACE /HPF 09/26/19 14:50 Urine Mucus (Auto) RARE /LPF 09/26/19 14:50 Urine Ascorbic Acid NEGATIVE (NEGATIVE) 09/26/19 14:50 POC Stool Occult Blood NEGATIVE (NEGATIVE) 09/26/19 09:26 Urine Opiates Screen NEGATIVE 09/26/19 14:50 Urine Methadone Screen NEGATIVE 09/26/19 14:50 Ur Barbiturates Screen NEGATIVE 09/26/19 14:50 Ur Phencyclidine Scrn NEGATIVE 09/26/19 14:50 Ur Amphetamines Screen NEGATIVE 09/26/19 14:50 U Benzodiazepines Scrn NEGATIVE 09/26/19 14:50 Urine Cocaine Screen NEGATIVE 09/26/19 14:50 U Marijuana (THC) Screen UNCONFIRMED POSITIVE 09/26/19 14:50 Serum Alcohol < 10 mg/dL (NONE DETECTED) 09/26/19 09:05 09/26/19 09/26/19 09:05 15:53 Troponin I < 0.012 < 0.012 Impressions: Chest X-Ray 09/26/19 08:58 IMPRESSION: No acute cardiopulmonary process. Abdomen/Pelvis CT 09/26/19 12:00 IMPRESSION: 1. Branching nodular opacities in the right middle lobe (image 2 of series 4) which could represent an infectious or inflammatory process. 2. Coarse pancreatic parenchymal calcifications consistent with chronic pancreatitis. There is a new 22 x 22 mm hypodense structure in the region of the gallbladder neck which could represent a pseudocyst. 3. The 5 mm calcification in the left hemipelvis, posterior and inferior to the urinary bladder (image 60 of series 3), could represent a calculus within the distal ureter - consider correlation with ultrasound to evaluate for hydronephrosis. 4. The urinary bladder is distended, its wall is thickened and there are layering calcifications within its lumen that could represent calculi. Correlate for urinary retention. 5. Grade 5 anterolisthesis of L5 relative to S1. 6. Pneumobilia in the left hepatic lobe - correlate for prior history of sphincterectomy. Chest X-Ray 09/26/19 12:33 IMPRESSION: The tip of the newly placed right subclavian vein approach central venous catheter projects within the SVC. Plan Time Spent: Greater than 30 Minutes Stroke Is this a Stroke Patient?: No Acute Heart Failure - Is this a Heart Failure Patient?: No
[2019-09-30 13:40] VITALS: BP 132/73
== END 2019-09-30 14:25 | disposition home or self-care (01) | DRG 73 ==
LOC: ER 08:32 → EH 16:26 → 3S 18:43
PROVIDERS: ADMIT Internal Medicine; ATTEND Internal Medicine
PROC: 02HV33Z Insertion of Infusion Device into Superior Vena Cava, Percutaneous Approach (ICD-10-PCS; principal; 2019-09-26)
DX: E10.43 Type 1 diabetes mellitus with diabetic autonomic (poly)neuropathy (principal); N17.0 Acute kidney failure with tubular necrosis; K86.1 Other chronic pancreatitis; K31.84 Gastroparesis; E10.649 Type 1 diabetes mellitus with hypoglycemia without coma; E86.0 Dehydration; E78.00 Pure hypercholesterolemia, unspecified; I10 Essential (primary) hypertension; K21.9 Gastro-esophageal reflux disease without esophagitis; L84 Corns and callosities; F12.90 Cannabis use, unspecified, uncomplicated; F17.210 Nicotine dependence, cigarettes, uncomplicated; Z86.14 Personal history of Methicillin resistant Staphylococcus aureus infection; Z91.11 Patient's noncompliance with dietary regimen
CPT/HCPCS: 36415; 71045; 74176; 80048; 80053; 80307; 81001; 82270; 82803; 82962; 83036; 83605; 83690; 83735; 84075; 84100; 84484; 85025; 87086; 87088; 87186; 93005; 93010; 96361; 96365; 96366; 96375; 96376; 99291; 99292; C9113; J0696; J0780; J1642; J1815; J2270; J2550; J2765; J3010; J3480; J3490; J7030; J7120; S0028

== ENCOUNTER 2019-10-30 14:23 | Inpatient (IN) | payer SELFPAY ==
[~2019-10-30 14:23] MED LIST: ROCURONIUM BROMIDE INJ 50 MG/5 ML VIAL IV ONE
--- NOTE | 2019-10-30 15:05 | ER Document Report ---
ED General - General Chief Complaint: Low Blood Sugar Stated Complaint: BLOOD PRESSURE/BLOOD SUGAR PROBLEM Time Seen by Provider: 10/30/19 14:43 Mode of Arrival: Medic Information source: Emergency Med Personnel Notes: Patient is a 39-year-old -[place] male who is brought in from his r esidence via ambulance apparently found unconscious covered in his own feces. He has a very long medical history at this hospital for diabetic ketoacidosis and pancreatitis among many others. At time of exam, glucometer reading "high". TRAVEL OUTSIDE OF THE [place] IN LAST 30 DAYS: No - Related Data Allergies/Adverse Reactions: ondansetron [From Zofran (as hydrochloride)] Allergy (Severe, Verified 10/30/19 18:44) Difficulty breathing Past Medical History - General Information source: Emergency Med Personnel Cannot obtain history due to: Other - Current medical condition - Social History Smoking Status: Unknown if Ever Smoked Family History: DM, Hyperlipidemia, Hypertension - Past Medical History Cardiac Medical History: Reports: Hx Hypercholesterolemia, Hx Hypertension Denies: Hx Coronary Artery Disease, Hx Heart Attack Pulmonary Medical History: Denies: Hx Asthma, Hx COPD, Hx Sleep Apnea Neurological Medical History: Denies: Hx Migraine, Hx Seizures Endocrine Medical History: Reports: Hx Diabetes Mellitus Type 1. Denies: Hx Hyperthyroidism, Hx Hypothyroidism Renal/ Medical History: Denies: Hx End Stage Renal Disease, Hx Peritoneal Dialysis GI Medical History: Reports: Hx Gastroesophageal Reflux Disease, Hx Pancreatitis, Hx Ulcer. Denies: Hx Cirrhosis, Hx Hepatitis Musculoskeletal Medical History: Denies Hx Arthritis, Denies Hx Fibromyalgia, Denies Hx Systemic Lupus Erythematosus Skin Medical History: Denies Hx Eczema, Denies Hx Psoriasis Psychiatric Medical History: Reports: Hx Depression Infectious Medical History: Reports: Hx MRSA. Denies: Hx C-Diff, Hx Hepatitis Past Surgical History: Reports: Hx Orthopedic Surgery - back, left long finger PIP disarticulation, right hand I&D. Denies: Hx Appendectomy, Hx Cholecystectomy, Hx Tonsillectomy - Immunizations Hx Diphtheria, Pertussis, Tetanus Vaccination: Yes Hx Pneumococcal Vaccination: 11/09/11 Review of Systems - Review of Systems Notes: Review of systems cannot be obtained at this time due to patient's current medical condition Physical Exam - Vital signs Vitals: Resp Pulse Ox 22 H 83 L 10/30/19 14:31 10/30/19 14:31 - Notes Notes: General: Chronically ill-appearing, emaciated, cachectic in moderate distress Cardiac: Well-perfused. Regular rate and rhythm. No murmurs, rubs, or gallops. Pulmonary: Mild respiratory distress. No cyanosis. Diminished breath sounds Abdominal: Non-distended. Non-rigid. Bowels sounds are present in all four quadrants. No guarding or rebound. HEENT: Head is atraumatic. Conjunctivae not reddened. No tearing. PERRL. EOMI. Orbits atraumatic. No periorbital swelling or erythema. Oropharynx is dry. Neck: Supple. Dermatologic: dry Chest: Atraumatic. No chest wall tenderness to palpation. Musculoskeletal: No apparent signs of trauma. Genitourinary: Examination deferred Neurologic: Cannot assess in current medical state Psychiatric: Cannot assess in current medical state Course - Re-evaluation Re-evalutation: 10/30/19 15:05 Blood is currently be drawn, but the nurses do not have IV access at this time. Patient is apparently a difficult stick and oftentimes requires some sort of intervention to start an IV. I spoke with Dr. Leo about getting possibly a central line to be able to start the patient's fluids. He advised he will assess the patient and let me know. - Vital Signs Vital signs: Temp Pulse Resp BP Pulse Ox 16 72/44 L 96 10/30/19 19:01 10/30/19 18:30 10/30/19 19:01 - Laboratory Result Diagrams: 10/30/19 14:51 10/30/19 16:46 Laboratory results interpreted by me: 10/30/19 10/30/19 10/30/19 14:51 14:51 15:30 WBC 28.8 H RBC 4.24 L Hgb 11.6 L MCHC 30.4 L RDW 21.0 H Seg Neuts % (Manual) 92 H Lymphocytes % (Manual) 7 L Monocytes % (Manual) 1 L Abs Neuts (Manual) 26.5 H Carbonic Acid ABG pH ABG pCO2 ABG pO2 ABG HCO3 ABG Total CO2 Sodium Chloride Carbon Dioxide BUN Creatinine Est GFR ( Amer) Est GFR (MDRD) Non-Af Glucose Lactic Acid 2.7 H Calcium Alkaline Phosphatase Total Protein Albumin Urine Protein 100 H Urine Glucose (UA) >=500 H Urine Blood MODERATE H Leukocyte Esterase Rfl LARGE H 10/30/19 10/30/19 16:46 18:20 WBC RBC Hgb MCHC RDW Seg Neuts % (Manual) Lymphocytes % (Manual) Monocytes % (Manual) Abs Neuts (Manual) Carbonic Acid 0.80 L ABG pH 7.01 L* ABG pCO2 26.6 L ABG pO2 122.4 H ABG HCO3 6.5 L ABG Total CO2 7.3 L Sodium 120.4 L* Chloride 95 L Carbon Dioxide 6 L* BUN 135 H Creatinine 3.94 H Est GFR ( Amer) 21 L Est GFR (MDRD) Non-Af 17 L Glucose 1037 H* Lactic Acid Calcium 6.8 L* Alkaline Phosphatase 268 H Total Protein 6.0 L Albumin 2.2 L Urine Protein Urine Glucose (UA) Urine Blood Leukocyte Esterase Rfl - EKG Interpretation by Mi EKG shows normal: Sinus rhythm Rate: Normal Rhythm: NSR Discharge - Discharge Clinical Impression: Diabetic ketoacidosis Qualifiers: Diabetes mellitus type: type 1 Diabetes mellitus complication detail: without coma Qualified Code(s): E10.10 - Type 1 diabetes mellitus with ketoacidosis without coma Sepsis Qualifiers: Sepsis type: sepsis due to unspecified organism Sepsis acute organ dysfunction status: unspecified Qualified Code(s): A41.9 - Sepsis, unspecified organism Condition: Critical Disposition: ADMITTED INPATIENT Admitting Provider: FELECIA WHITEHEAD NP Unit Admitted: ICU
[2019-10-30 15:20] LABS: HEMATOCRIT 38.1 % (37.9-51.0); HEMOGLOBIN 11.6 g/dL (13.5-17.0); MEAN CORPUSCULAR HEMOGLOBIN 27.3 pg (27.0-33.4); MEAN CORPUSCULAR HGB CONC 30.4 g/dL (32.0-36.0); MEAN CORPUSCULAR VOLUME 90 fl (80-97); PLATELET COUNT 184 10^3/uL (150-450); RED BLOOD COUNT 4.24 10^6/uL (4.35-5.55); WHITE BLOOD COUNT 28.8 10^3/uL (4.0-10.5)
[2019-10-30 15:53] LABS: ABSOLUTE MONOCYTES # (MANUAL) 0.3 10^3/uL (0.1-1.4); BASOPHILS % (MANUAL) 0 % (0-2); EOSINOPHILS % (MANUAL) 0 % (0-6); LYMPHOCYTES % (MANUAL) 7 % (13-45); MONOCYTES % (MANUAL) 1 % (3-13); SEGMENTED NEUTROPHILS % (MAN) 92 % (42-78); TOTAL CELLS COUNTED 100
[2019-10-30 15:58] LABS: ANISOCYTOSIS 3+
[2019-10-30 15:59] LABS: PLATELET COMMENT ADEQUATE; POIKILOCYTOSIS 2+; TEAR DROP CELLS SLIGHT
[2019-10-30] MEDS ORDERED: VANCOMYCIN HCL INJ 1000 MG VIAL IV ONE (16:16)
[2019-10-30] MEDS ORDERED: PIPERACILLIN/TAZOBACTAM 3.375 GM VIAL IV ONE (16:16)
--- NOTE | 2019-10-30 16:32 | ER Document Report ---
ED Resuscitation - General Chief Complaint: Low Blood Sugar Stated Complaint: BLOOD PRESSURE/BLOOD SUGAR PROBLEM Time Seen by Provider: 10/30/19 14:43 Mode of Arrival: Medic Notes: 39-year-old male with history of DKA was asked to evaluate with midlevel provider for resuscitation assistance and vascular access. TRAVEL OUTSIDE OF THE [place] IN LAST 30 DAYS: No - Related Data Allergies/Adverse Reactions: ondansetron [From Zofran (as hydrochloride)] Allergy (Severe, Verified 10/30/19 18:44) Difficulty breathing Past Medical History - General Information source: Emergency Med Personnel - Social History Smoking Status: Unknown if Ever Smoked Family History: DM, Hyperlipidemia, Hypertension - Past Medical History Cardiac Medical History: Reports: Hx Hypercholesterolemia, Hx Hypertension Denies: Hx Coronary Artery Disease, Hx Heart Attack Pulmonary Medical History: Denies: Hx Asthma, Hx COPD, Hx Sleep Apnea Neurological Medical History: Denies: Hx Migraine, Hx Seizures Endocrine Medical History: Reports: Hx Diabetes Mellitus Type 1. Denies: Hx Hyperthyroidism, Hx Hypothyroidism Renal/ Medical History: Denies: Hx End Stage Renal Disease, Hx Peritoneal Dialysis GI Medical History: Reports: Hx Gastroesophageal Reflux Disease, Hx Pancreatiti s, Hx Ulcer. Denies: Hx Cirrhosis, Hx Hepatitis Musculoskeletal Medical History: Denies Hx Arthritis, Denies Hx Fibromyalgia, Denies Hx Systemic Lupus Erythematosus Skin Medical History: Denies Hx Eczema, Denies Hx Psoriasis Psychiatric Medical History: Reports: Hx Depression Infectious Medical History: Reports: Hx MRSA. Denies: Hx C-Diff, Hx Hepatitis Past Surgical History: Reports: Hx Orthopedic Surgery - back, left long finger PIP disarticulation, right hand I&D. Denies: Hx Appendectomy, Hx Cholecystectomy, Hx Tonsillectomy - Immunizations Hx Diphtheria, Pertussis, Tetanus Vaccination: Yes Hx Pneumococcal Vaccination: 11/09/11 Review of Systems - Review of Systems -: Yes All other systems reviewed and negative Physical Exam - Vital signs Vitals: Resp Pulse Ox 22 H 83 L 10/30/19 14:31 10/30/19 14:31 - Notes Notes: Cachectic appearing male, very dry mucous membranes. Tachycardic hypotensive. Course - Re-evaluation Re-evalutation: 10/30/19 16:31 PA [employer] Tally Clerk Note; evaluated the patient and agree with ALEX note and have separately evaluated and assessed the patient and made treatment decisions. Attempted to do a right external jugular peripheral line was unsuccessful x2. Right femoral central line was successful. We will begin resuscitating. Concern for DKA. - Vital Signs Vital signs: Temp Pulse Resp BP Pulse Ox 16 72/44 L 96 10/30/19 19:01 10/30/19 18:30 10/30/19 19:01 - Laboratory Result Diagrams: 10/30/19 14:51 10/30/19 16:46 Laboratory results interpreted by me: 10/30/19 10/30/19 10/30/19 14:51 14:51 14:51 WBC 28.8 H RBC 4.24 L Hgb 11.6 L MCHC 30.4 L RDW 21.0 H Seg Neuts % (Manual) 92 H Lymphocytes % (Manual) 7 L Monocytes % (Manual) 1 L Abs Neuts (Manual) 26.5 H Carbonic Acid ABG pH ABG pCO2 ABG pO2 ABG HCO3 ABG Total CO2 Sodium Chloride Carbon Dioxide BUN Creatinine Est GFR ( Amer) Est GFR (MDRD) Non-Af Glucose Hemoglobin A1c % 13.1 H Lactic Acid 2.7 H Calcium Alkaline Phosphatase Total Protein Albumin Urine Protein Urine Glucose (UA) Urine Blood Leukocyte Esterase Rfl 10/30/19 10/30/19 10/30/19 15:30 16:46 18:20 WBC RBC Hgb MCHC RDW Seg Neuts % (Manual) Lymphocytes % (Manual) Monocytes % (Manual) Abs Neuts (Manual) Carbonic Acid 0.80 L ABG pH 7.01 L* ABG pCO2 26.6 L ABG pO2 122.4 H ABG HCO3 6.5 L ABG Total CO2 7.3 L Sodium 120.4 L* Chloride 95 L Carbon Dioxide 6 L* BUN 135 H Creatinine 3.94 H Est GFR ( Amer) 21 L Est GFR (MDRD) Non-Af 17 L Glucose 1037 H* Hemoglobin A1c % Lactic Acid Calcium 6.8 L* Alkaline Phosphatase 268 H Total Protein 6.0 L Albumin 2.2 L Urine Protein 100 H Urine Glucose (UA) >=500 H Urine Blood MODERATE H Leukocyte Esterase Rfl LARGE H Procedures - Central Line Right Femoral Consent obtained: Yes - Verbal consent Central line pre-insertion: Sterile PPE donned, Chloraprep applied Central line size (Fr.): 8 Central line lumen type: Triple Anesthetic type: 1% Lidocaine mL's of anesthesia: 3 Ultrasound guided: Yes Line secured with sutures: Yes Central line post-insertion: Blood return from lumens, Biopatch applied, Sutured, Sterile dressing applied Number of attempts: 1 Complications: No Critical Care Note - Critical Care Note Total time excluding time spent on procedures (mins): 31 Discharge - Discharge Clinical Impression: Diabetic ketoacidosis Qualifiers: Diabetes mellitus type: type 1 Diabetes mellitus complication detail: without coma Qualified Code(s): E10.10 - Type 1 diabetes mellitus with ketoacidosis without coma Sepsis Qualifiers: Sepsis type: sepsis due to unspecified organism Sepsis acute organ dysfunction status: unspecified Qualified Code(s): A41.9 - Sepsis, unspecified organism Condition: Critical Disposition: ADMITTED INPATIENT Admitting Provider: Jeffery (Cutting Room Supervisor) Unit Admitted: ICU
[2019-10-30] MEDS: NORMAL SALINE 1000 ML 1,000 ML IV PRN ×4 (16:45→17:46)
[2019-10-30 17:04] LABS: AMORPHOUS SEDIMENT,URINE TRACE /HPF; APPEARANCE,URINE CLOUDY; BILIRUBIN,URINE NEGATIVE (NEGATIVE); COLOR,URINE AMBER; GLUCOSE, URINE >=500 mg/dL (NEGATIVE); KETONES,URINE NEGATIVE (NEGATIVE); PROTEIN,URINE 100 mg/dL (NEGATIVE); URINE SPECIFIC GRAVITY 1.012; UROBILINOGEN,URINE NEGATIVE mg/dL (<2.0)
[2019-10-30 17:31] LABS: ALBUMIN 2.2 g/dL (3.5-5.0); ALKALINE PHOSPHATASE 268 U/L (38-126); ANION GAP 19 (5-19); ASPARTATE AMINO TRANSFERASE 23 U/L (17-59); BILIRUBIN,DIRECT 0.4 mg/dL (0.0-0.4); BILIRUBIN,TOTAL 0.4 mg/dL (0.2-1.3); CHLORIDE 95 mmol/L (98-107)
--- NOTE | 2019-10-30 17:31 | RADIOLOGY REPORT (SQ) ---
EXAM DESCRIPTION: CHEST SINGLE VIEW IMAGES COMPLETED DATE/TIME: 10/30/2019 5:16 pm REASON FOR STUDY: found unconscious COMPARISON: 09/26/2019 EXAM PARAMETERS: NUMBER OF VIEWS: One view. TECHNIQUE: Single frontal radiographic view of the chest acquired. RADIATION DOSE: NA LIMITATIONS: None. FINDINGS: LUNGS AND PLEURA: New right mid lung patchy airspace opacities. No pleural effusion. No pneumothorax. MEDIASTINUM AND HILAR STRUCTURES: No masses. Contour normal. HEART AND VASCULAR STRUCTURES: Heart normal in size. Normal vasculature. BONES: No acute findings. HARDWARE: A previously demonstrated right subclavian vein catheter is no longer present. OTHER: No other significant finding. IMPRESSION: New patchy airspace opacities within the right mid lung, consistent with lobar pneumonia . TECHNICAL DOCUMENTATION: JOB ID: [id number] 2010 [employer]- All Rights Reserved Reading location - IP/workstation name: [email or web address]
[2019-10-30 17:40] LABS: BLOOD UREA NITROGEN 135 mg/dL (7-20)
[2019-10-30 17:47] LABS: CALCIUM 6.8 mg/dL (8.4-10.2); CARBON DIOXIDE 6 mmol/L (22-30); GLUCOSE 1037 mg/dL (75-110)
[2019-10-30] MEDS ORDERED: INSULIN REG, HUMAN 100 UNIT/ML 3 ML VIAL (PYX) ONE (18:24)
[2019-10-30] MEDS: NORMAL SALINE 100 ML with INSULIN REGULAR, HUMAN 100 UNIT IV PRN ×2 (18:31)
[2019-10-30 18:59] LABS: ARTERIAL BLOOD HCO3 6.5 mmol/L (20-24); ARTERIAL BLOOD O2 SATURATION 96.4 % (94-98); ARTERIAL BLOOD PCO2 26.6 mmHg (35-45); ARTERIAL BLOOD PO2 122.4 mmHg (80-100); ARTERIAL BLOOD TOTAL CO2 7.3 mmol/L (23-27)
[2019-10-30 19:00] LABS: ARTERIAL BLOOD FIO2 ROOM AIR
[2019-10-30 19:03] LABS: ARTERIAL BLOOD PH 7.01 (7.35-7.45)
[2019-10-30 22:41] LABS: URINE AMPHETAMINES SCREEN NEGATIVE; URINE BARBITURATES SCREEN NEGATIVE; URINE BENZODIAZEPINES SCREEN NEGATIVE; URINE COCAINE SCREEN NEGATIVE; URINE MARIJUANA (THC) SCREEN NEGATIVE; URINE METHADONE SCREEN NEGATIVE; URINE PHENCYCLIDINE SCREEN NEGATIVE
[2019-10-30] MEDS ORDERED: NORMAL SALINE 1000 ML 1,000 ML IV ONE (23:30)
[2019-10-31] MEDS ORDERED: NORMAL SALINE 1000 ML 1,000 ML IV ONE ×6 (00:05→23:30)
[2019-10-31 00:06] LABS: ARTERIAL BLOOD BASE EXCESS -21.4 mmol/L; ARTERIAL BLOOD H2CO3 0.57 mmol/L (1.05-1.35); ARTERIAL BLOOD O2 SATURATION 96.4 % (94-98); ARTERIAL BLOOD PO2 108.7 mmHg (80-100); ARTERIAL BLOOD TOTAL CO2 6.6 mmol/L (23-27)
[2019-10-31] MEDS: HEPARIN SOD (PORCINE) 5,000 UNIT/ML 1 ML VIAL SUBCUT SCH ×4 (00:07→21:37)
[2019-10-31 00:24] LABS: ANION GAP 16 (5-19); BLOOD UREA NITROGEN 117 mg/dL (7-20); CHLORIDE 101 mmol/L (98-107); POTASSIUM 3.6 mmol/L (3.6-5.0)
[2019-10-31 00:37] LABS: ARTERIAL BLOOD FIO2 ROOM AIR; ARTERIAL BLOOD PH 7.12 (7.35-7.45)
[2019-10-31 00:38] LABS: CALCIUM 5.8 mg/dL (8.4-10.2); CARBON DIOXIDE 7 mmol/L (22-30); GLUCOSE 891 mg/dL (75-110)
[2019-10-31] MEDS ORDERED: CALCIUM GLUC IN NACL, ISO-OSM 1 GM/50 ML RTUPB IV ONE (01:30)
[2019-10-31] MEDS: NORMAL SALINE 1000 ML 1,000 ML IV PRN ×3 (01:51→10:22)
[2019-10-31 03:12] LABS: ARTERIAL BLOOD BASE EXCESS -24.5 mmol/L; ARTERIAL BLOOD FIO2 ROOM AIR; ARTERIAL BLOOD H2CO3 0.39 mmol/L (1.05-1.35); ARTERIAL BLOOD HCO3 3.6 mmol/L (20-24); ARTERIAL BLOOD O2 SATURATION 95.5 % (94-98); ARTERIAL BLOOD PO2 104.1 mmHg (80-100)
[2019-10-31 03:13] LABS: ARTERIAL BLOOD PH 7.07 (7.35-7.45)
[2019-10-31 03:14] LABS: ARTERIAL BLOOD PCO2 12.9 mmHg (35-45)
[2019-10-31] MEDS ORDERED: ETOMIDATE INJ/PF 20 MG/10 ML SDV IV ONE ×2 (03:16→03:34)
[2019-10-31] MEDS ORDERED: PHENYLEPHRINE HCL INJ/PF 10 MG/1 ML SDV ONE (03:20)
[2019-10-31] MEDS ORDERED: SODIUM BICARBONATE 8.4% INJ 50 MEQ/50 ML DISP.SYRIN ONE ×2 (03:31→05:50)
[2019-10-31] MEDS ORDERED: PROPOFOL 1,000 MG/100 ML INFUS..BTL IV ONE (03:31)
[2019-10-31] MEDS ORDERED: ROCURONIUM BROMIDE INJ 50 MG/5 ML VIAL IV ONE (03:35)
[2019-10-31] MEDS: PROPOFOL 1,000 MG/100 ML INFUS..BTL IV PRN ×2 (03:37→23:50)
[2019-10-31] MEDS ORDERED: SODIUM BICARBONATE 8.4% INJ 50 MEQ/50 ML DISP.SYRIN IV ONE ×2 (03:39→05:41)
[2019-10-31] MEDS ORDERED: AMPICILLIN SOD/SULBACTAM 1.5 GM VIAL IV SCH (03:45)
[2019-10-31] MEDS ORDERED: PHARMACY COMMUNICATION ORDER MC NR (03:45)
[2019-10-31] MEDS ORDERED: AMPICILLIN SODIUM/SULBACTAM NA 1.5 GM in NORMAL SALINE 50 ML IV SCH (04:00)
--- NOTE | 2019-10-31 04:02 | CRITICAL CARE ADMISSION REPORT ---
HPI Date:: 10/30/19 Time:: 22:00 Reason for ICU Reason:: DKA Admission Date/Time & PCP: Admission Date/Time: 10/30/19 20:07 Primary Care Provider: HPI: Mr. Feng Granado is a 39-year-old -[place] male with a longstanding history of type 1 diabetes, with multiple admissions for DKA. Also has a history of pancreatitis, depression, hyperlipidemia, and hypertension. Presented to the ED via EMS was found by family members unconscious covered in his own feces. Upon arrival to the ED he was found to have a blood sugar when evaluated in the ED he was found to have a blood sugar of 1037, sodium 120.4, bicarb 6, creatinine 3.94, and a calcium of 6.8. He was given 4 L normal saline in the ED and started on an insulin drip per protocol. Initial blood gas pH 7.01 PCO2 of 26.6 PO2 122 HCO3 6.5. He is admitted to the ICU for further management of DKA. - Diagnosis/Plan (1) Diabetic ketoacidosis Qualifiers: Diabetes mellitus type: type 1 Diabetes mellitus complication detail: without coma Qualified Code(s): E10.10 - Type 1 diabetes mellitus with ketoacidosis without coma Is this a current diagnosis for this admission?: Yes Plan: Aggressively volume resuscitate with normal saline, when blood sugar reaches 250 will change to D5 normal saline with 20 of KCl. Continue insulin drip per protocol with every hour blood sugars. Every 4 hours BMP Hemoglobin A1c 18.1 Thyroid studies in a.m. (2) Sepsis Qualifiers: Sepsis type: sepsis due to unspecified organism Sepsis acute organ dysfunction status: unspecified Qualified Code(s): A41.9 - Sepsis, unspecified organism Is this a current diagnosis for this admission?: Yes Plan: Leukocytosis with a white blood cell count 28.8 Hypothermic temp [address] Caty hugger UA large leukocyte esterase moderate blood negative nitrate trace bacteria. Blood culture sent Urine culture sent We will start Unasyn 1.5 g every 8 hours Lactic acid 2.7 will recheck in a.m. (3) Acute kidney injury Is this a current diagnosis for this admission?: Yes Plan: Creatinine 3.94 BUN 135, he is severely dehydrated will aggressively volume resuscitate. BMP every 4 hours (4) Hyponatremia Is this a current diagnosis for this admission?: Yes Plan: Most likely hypovolemic hyponatremia we will continue to volume resuscitate BMP every 4 hours Past Medical History Cardiac Medical History: Reports: Hyperlipidema, Hypertension Denies: Coronary Artery Disease, Myocardial Infarction Pulmonary Medical History: Denies: Asthma, Chronic Obstructive Pulmonary Disease (COPD), Sleep Apnea Neurological Medical History: Denies: Migraine, Seizures Endocrine Medical History: Reports: Diabetes Mellitus Type 1 Denies: Hyperthyroidism, Hypothyroidism Renal/ Medical History: Denies: End Stage Renal Disease GI Medical History: Reports: Gastroesophageal Reflux Disease Denies: Cirrhosis, Hepatitis Musculoskeltal Medical History: Denies: Arthritis, Fibromyalgia Skin Medical History: Denies: Eczema, Psoriasis Psychiatric Medical History: Reports: Depression Hematology: Reports: Anemia Denies: Bleeding Tendencies Infectious Medical History: Reports: Methicillin-Resistant Staph Aureus Denies: Clostridium Difficile Past Surgical History Past Surgical History: Reports: Orthopedic Surgery - back, left long finger PIP disarticulation, right hand I&D Denies: Appendectomy, Cholecystectomy, Tonsillectomy Social/Family History - Social History Smoking Status: Unknown if Ever Smoked Frequency of Alcohol Use: None Hx Recreational Drug Use: Yes Drugs: Cocaine, Marijuana Hx Prescription Drug Abuse: No - Medication/Allergies Home Medications: Insulin Aspart [Novolog Flexpen] 0 unit SUBCUT .SLD SCALE 09/26/19 Insulin Glargine,Hum.rec.anlog [Lantus Insulin 100 Unit/1 ml 10 ml] 25 unit SQ Q12 09/26/19 Lipase/Protease/Amylase [Nate Rodríguez 36,000 Units Capsule] 1 cap PO .SNACKS 09/26/19 Lipase/Protease/Amylase [Nate Rodríguez 36,000 Units Capsule] 1 cap PO AC 09/26/19 Cephalexin Monohydrate [Keflex 250 mg Capsule] 250 mg PO QID 1 Days #4 cap 09/30/19 Insulin Lispro [Humalog Insulin (Lispro) 100 unit/mL] 5 unit SUBCUT AC #10 vial 09/30/19 Metoclopramide HCl [Reglan] 5 mg PO MEALS #90 tablet 09/30/19 Multivitamin [Tab-A-Ever (Multiple Vitamin) Tablet] 1 tab PO DAILY #30 tablet 09/30/19 Allergies/Adverse Reactions: ondansetron [From Zofran (as hydrochloride)] Allergy (Severe, Verified 10/30/19 18:44) Difficulty breathing Review of Systems ROS unobtainable: Due to mental status Physical Exam Vital Signs: Temp Pulse Resp BP Pulse Ox 94.6 F L 89 20 92/56 L 100 10/31/19 01:39 10/30/19 23:38 10/31/19 02:08 10/31/19 02:08 10/31/19 02:08 Intake & Output 10/29/19 10/30/19 10/31/19 06:59 06:59 06:59 Intake Total 8052 Output Total 525 Balance 7527 Weight 47 kg Weight/Height Weight 47 kg Height 5 ft 9 in General appearance: PRESENT: disheveled, mild distress, thin Head exam: PRESENT: atraumatic, normocephalic Eye exam: PRESENT: PERRLA Mouth exam: PRESENT: dry mucosa Teeth exam: PRESENT: dental caries Neck exam: PRESENT: full ROM Respiratory exam: PRESENT: accessory muscle use, clear to auscultation alfonso Cardiovascular exam: PRESENT: tachycardia Pulses: PRESENT: normal radial pulses GI/Abdominal exam: PRESENT: normal bowel sounds Extremities exam: PRESENT: full ROM Musculoskeletal exam: PRESENT: full ROM Neurological exam: PRESENT: altered, other - Obtunded Tubes/Lines: PRESENT: Central Line Laboratory/Radiographs Laboratory Results: 10/30/19 14:51 10/31/19 02:00 10/30/19 10/30/19 10/30/19 14:51 14:51 14:51 WBC 28.8 H RBC 4.24 L Hgb 11.6 L Hct 38.1 MCV 90 MCH 27.3 MCHC 30.4 L RDW 21.0 H Plt Count 184 Seg Neutrophils % Not Reportable Carbonic Acid HCO3/H2CO3 Ratio ABG pH ABG pCO2 ABG pO2 ABG HCO3 ABG O2 Saturation ABG Base Excess FiO2 Sodium Cancelled Potassium Cancelled Chloride Cancelled Carbon Dioxide Cancelled Anion Gap Cancelled BUN Cancelled Creatinine Cancelled Est GFR ( Amer) Cancelled Est GFR (Non-Af Amer) Cancelled Glucose Cancelled Lactic Acid 2.7 H Calcium Cancelled Total Bilirubin Cancelled AST Cancelled Alkaline Phosphatase Cancelled Total Protein Cancelled Albumin Cancelled Urine Color Urine Appearance Urine pH Ur Specific [place] Urine Protein Urine Glucose (UA) Urine Ketones Urine Blood Urine RBC (Auto) 10/30/19 10/30/19 10/30/19 15:30 16:46 18:20 WBC RBC Hgb Hct MCV MCH MCHC RDW Plt Count Seg Neutrophils % Carbonic Acid 0.80 L HCO3/H2CO3 Ratio 8:1 ABG pH 7.01 L* ABG pCO2 26.6 L ABG pO2 122.4 H ABG HCO3 6.5 L ABG O2 Saturation 96.4 ABG Base Excess -23.0 FiO2 ROOM AIR Sodium 120.4 L* Potassium 4.0 Chloride 95 L Carbon Dioxide 6 L* Anion Gap 19 BUN 135 H Creatinine 3.94 H Est GFR ( Amer) 21 L Est GFR (Non-Af Amer) Glucose 1037 H* Lactic Acid Calcium 6.8 L* Total Bilirubin 0.4 AST 23 Alkaline Phosphatase 268 H Total Protein 6.0 L Albumin 2.2 L Urine Color ALYSIA Urine Appearance CLOUDY Urine pH 6.0 Ur Specific [place] 1.012 Urine Protein 100 H Urine Glucose (UA) >=500 H Urine Ketones NEGATIVE Urine Blood MODERATE H Urine RBC (Auto) 53 10/30/19 10/30/19 10/30/19 23:03 23:03 23:35 WBC RBC Hgb Hct MCV MCH MCHC RDW Plt Count Seg Neutrophils % Carbonic Acid 0.57 L HCO3/H2CO3 Ratio 10:1 ABG pH 7.12 L* ABG pCO2 19.0 L* ABG pO2 108.7 H ABG HCO3 6.0 L ABG O2 Saturation 96.4 ABG Base Excess -21.4 FiO2 ROOM AIR Sodium 123.7 L Potassium 3.6 Chloride 101 Carbon Dioxide 7 L* Anion Gap 16 BUN 117 H Creatinine 3.53 H Est GFR ( Amer) 24 L Est GFR (Non-Af Amer) Glucose Cancelled 891 H* Lactic Acid Calcium 5.8 L* Total Bilirubin AST Alkaline Phosphatase Total Protein Albumin Urine Color Urine Appearance Urine pH Ur Specific [place] Urine Protein Urine Glucose (UA) Urine Ketones Urine Blood Urine RBC (Auto) 10/31/19 10/31/19 02:00 02:35 WBC RBC Hgb Hct MCV MCH MCHC RDW Plt Count Seg Neutrophils % Carbonic Acid 0.39 L HCO3/H2CO3 Ratio 9:1 ABG pH 7.07 L* ABG pCO2 12.9 L* ABG pO2 104.1 H ABG HCO3 3.6 L ABG O2 Saturation 95.5 ABG Base Excess -24.5 FiO2 ROOM AIR Sodium Potassium Chloride Carbon Dioxide Anion Gap BUN Creatinine Est GFR ( Amer) Est GFR (Non-Af Amer) Glucose 652 H* Lactic Acid Calcium Total Bilirubin AST Alkaline Phosphatase Total Protein Albumin Urine Color Urine Appearance Urine pH Ur Specific [place] Urine Protein Urine Glucose (UA) Urine Ketones Urine Blood Urine RBC (Auto) 10/30/19 10/30/19 14:51 16:46 Troponin I Cancelled < 0.012 Impressions: Chest X-Ray 10/30/19 14:48 IMPRESSION: New patchy airspace opacities within the right mid lung, consistent with lobar pneumonia. All labs, radiographs, diagnostic studies and EKGs were personally reviewed: Yes In addition, reports of radiographic and diagnostic studies were read: Yes Critical Time Critical Time (minutes): 70 -: The care of a critically ill patient is dynamic. This note represents a static moment in the admission process. Orders and treatments may be given simultaneously and urgently, and time is not medical field representative of the treatment process. This patient requires Critical Care secondary to life threatening organ or limb dysfunction. Without Critical Care services, the patient is at risk for increased mortality and morbidity.
--- NOTE | 2019-10-31 04:10 | Operative Report ---
Bedside Procedure - History of Present Illness Indication for Procedure: Airway Protection Date: 10/31/19 Provider: FELECIA WHITEHEAD - Intubation Orotracheal Time of Intubation: 03:29 Airway evaluation: Normal anatomy, Loose teeth Mallampati Classification: Class 1 Medications: Etomidate, Other - Rocuronium Intubation method: Nasotracheal Blade type: Maurice Blade size: 4 Equipment used: Other - Direct laryngoscope ETT size: 7.5 ETT secured at: Teeth ETT secured at (cm): 22 Post Intubation Xray: Yes Intubation Complications: No complications, Other
--- NOTE | 2019-10-31 04:18 | RADIOLOGY REPORT (SQ) ---
CHEST X-RAY 1 VIEW on 10/31/2019 at 3:55 AM CLINICAL INDICATION: ET tube and NG tube placement COMPARISON: 10/30/2019 FINDINGS: New ET tube tip is in the mid thoracic trachea approximately 5.4 cm above the level of the nieves. New NG tube extends into the body of the stomach. There is worsening right mid and lower lung airspace opacity consistent with worsening right-sided pneumonia. Left lung is clear. Heart is within normal limits for size. IMPRESSION: Worsening right-sided pneumonia.
[2019-10-31 04:50] LABS: HEMATOCRIT 28.8 % (37.9-51.0); MEAN CORPUSCULAR HEMOGLOBIN 26.8 pg (27.0-33.4); PLATELET COUNT 140 10^3/uL (150-450); RED BLOOD COUNT 3.44 10^6/uL (4.35-5.55); WHITE BLOOD COUNT 17.6 10^3/uL (4.0-10.5)
[2019-10-31 05:12] LABS: ALBUMIN 1.8 g/dL (3.5-5.0); ALKALINE PHOSPHATASE 183 U/L (38-126); ASPARTATE AMINO TRANSFERASE 32 U/L (17-59); BILIRUBIN,DIRECT 0.4 mg/dL (0.0-0.4); BILIRUBIN,TOTAL 0.4 mg/dL (0.2-1.3); BLOOD UREA NITROGEN 105 mg/dL (7-20); PHOSPHORUS 7.4 mg/dL (2.5-4.5); TOTAL PROTEIN 5.1 g/dL (6.3-8.2)
[2019-10-31 05:17] LABS: HEMOGLOBIN 9.2 g/dL (13.5-17.0); MEAN CORPUSCULAR VOLUME 84 fl (80-97)
[2019-10-31 05:21] LABS: ABSOLUTE LYMPHOCYTES# (MANUAL) 0.2 10^3/uL (0.5-4.7); BAND NEUTROPHILS % (MANUAL) 5 % (3-5); BASOPHILS % (MANUAL) 0 % (0-2); EOSINOPHILS % (MANUAL) 0 % (0-6); LYMPHOCYTES % (MANUAL) 1 % (13-45); MONOCYTES % (MANUAL) 0 % (3-13); SEGMENTED NEUTROPHILS % (MAN) 94 % (42-78); TOTAL CELLS COUNTED 100
[2019-10-31 05:22] LABS: ANISOCYTOSIS 2+; OVALOCYTES 2+; POIKILOCYTOSIS 2+; TEAR DROP CELLS 1+; TOXIC GRANULATION 1+
[2019-10-31 05:23] LABS: BURR CELLS 2+; PLATELET COMMENT ADEQUATE
[2019-10-31 05:24] LABS: FREE T3 1.64 pg/mL (2.77-5.27); FREE T4 (FREE THYROXINE) 1.03 ng/dL (0.78-2.19)
[2019-10-31 05:32] LABS: CHLORIDE 110 mmol/L (98-107)
[2019-10-31 05:37] LABS: THYROID STIMULATING HORMONE 1.32 uIU/mL (0.47-4.68)
[2019-10-31 05:40] LABS: CALCIUM 5.8 mg/dL (8.4-10.2); GLUCOSE 533 mg/dL (75-110)
[2019-10-31 05:41] LABS: CARBON DIOXIDE < 5 mmol/L (22-30); POTASSIUM 2.9 mmol/L (3.6-5.0)
[2019-10-31] MEDS ORDERED: POTASSI CL 20 MEQ/50 ML RIDER 20 MEQ/50 ML RTUPB IV ONE (05:56)
[2019-10-31] MEDS: POTASSI CL 20 MEQ/50 ML RIDER 20 MEQ/50 ML RTUPB IV SCH ×6 (06:03→17:10)
[2019-10-31] MEDS ORDERED: INSULIN REG, HUMAN 100 UNIT/ML 3 ML VIAL (PYX) ONE (06:39)
[2019-10-31] MEDS: NORMAL SALINE 100 ML with INSULIN REGULAR, HUMAN 100 UNIT IV PRN ×4 (06:45→14:11)
[2019-10-31 06:55] LABS: VENOUS BLOOD BASE EXCESS -26.2 mmol/L; VENOUS BLOOD HCO3 5.4 mmol/L (20-32); VENOUS BLOOD PCO2 26.8 mmHg (35-63); VENOUS BLOOD PH 6.93 (7.30-7.42)
[2019-10-31] MEDS ORDERED: PIPERACILLIN/TAZOBACTAM 4.5 GM VIAL IV SCH (07:00)
[2019-10-31] MEDS ORDERED: VANCOMYCIN HCL INJ 1000 MG VIAL IV SCH (07:00)
--- NOTE | 2019-10-31 08:34 | EKG REPORT ---
SEVERITY:- ABNORMAL ECG - SINUS RHYTHM PROMINENT P WAVES, NONDIAGNOSTIC NONSPECIFIC INTRAVENTRICULAR CONDUCTION DELAY : Confirmed by: Carlota North MD 31-Oct-2019 08:33:59
[2019-10-31] MEDS: DEXTROSE 5%-WATER 1000 ML 1,000 ML with SODIUM BICARBONATE 150 MEQ IV PRN ×6 (08:41→22:56)
[2019-10-31] MEDS ORDERED: PIPERACILLIN SODIUM/TAZOBACTAM 2.25 GM in NORMAL SALINE 50 ML IV SCH (10:00)
[2019-10-31 10:19] LABS: BLOOD UREA NITROGEN 102 mg/dL (7-20); CHLORIDE 114 mmol/L (98-107); GLUCOSE 266 mg/dL (75-110); POTASSIUM 3.4 mmol/L (3.6-5.0)
[2019-10-31 10:25] LABS: ANION GAP 19 (5-19)
[2019-10-31 10:37] LABS: CARBON DIOXIDE 6 mmol/L (22-30)
[2019-10-31 10:38] LABS: CALCIUM 5.4 mg/dL (8.4-10.2)
[2019-10-31 10:54] LABS: ARTERIAL BLOOD BASE EXCESS -19.2 mmol/L; ARTERIAL BLOOD FIO2 40%; ARTERIAL BLOOD H2CO3 0.68 mmol/L (1.05-1.35); ARTERIAL BLOOD HCO3 7.8 mmol/L (20-24); ARTERIAL BLOOD O2 SATURATION 98.3 % (94-98); ARTERIAL BLOOD PCO2 22.5 mmHg (35-45); ARTERIAL BLOOD TOTAL CO2 8.5 mmol/L (23-27)
[2019-10-31 10:57] LABS: ARTERIAL BLOOD PH 7.16 (7.35-7.45)
[2019-10-31] MEDS: FAMOTIDINE INJ/PF 20 MG/2 ML SDV IV SCH ×2 (11:02→17:10)
[2019-10-31] MEDS: CALCIUM GLUC IN NACL, ISO-OSM 1 GM/50 ML RTUPB IV SCH ×5 (11:02→23:48)
--- NOTE | 2019-10-31 11:08 | PDOC CRITICAL CARE PROG REPORT ---
General Date:: 10/31/19 ICU Day:: 1 Ventilator Day:: 1 Resuscitation Status: Full Code Events in the past 12 to 24 Hours:: 10/30 The patient presented acutely ill. The main reason appears to henry DKA. There may be some other complications as well including sepsis and shock and pancreatitis. The patient was found on the ground poorly responsive in his feces. Drug screen was negative. His intial Blood sugar was over 1000. The patient was placed on an insulin drip. His urine looked infected so it was sent for culture and empiric abx theroajosette s tarted. The patient was quite hypothermic on presentation He was placed on the Tyrell Hugger and HIS TEMP HAS RISEN. tHE PATIENT HAD TO be intubated for very obtunded mental status. His lipase came back elevated at Reason for ICU Addmission:: DKA Physical Exam Vital Signs: Temp Pulse Resp BP Pulse Ox 95.9 F L 93 26 H 91/55 L 100 10/31/19 09:48 10/31/19 08:15 10/31/19 10:08 10/31/19 10:08 10/31/19 10:08 Intake & Output 10/30/19 10/31/19 11/01/19 06:59 06:59 06:59 Intake Total 9096 1164 Output Total 850 200 Balance 8246 964 Weight 47 kg Weight/Height Weight 47 kg Height 5 ft 9 in General appearance: PRESENT: disheveled Eye exam: PRESENT: conjunctiva pink Ear exam: PRESENT: normal external ear exam Mouth exam: PRESENT: neck supple Neck exam: ABSENT: tenderness Cardiovascular exam: PRESENT: RRR, +S1, +S2 GI/Abdominal exam: PRESENT: normal bowel sounds, soft Extremities exam: ABSENT: calf tenderness, joint swelling Neurological exam: PRESENT: alert, awake, reflexes normal Psychiatric exam: PRESENT: appropriate affect Tubes/Lines: PRESENT: Endotracheal Tube, Nasogastic Tube Laboratory/Radiographs Laboratory Results: 10/31/19 04:05 10/30/19 10/30/19 10/30/19 14:51 14:51 14:51 WBC 28.8 H RBC 4.24 L Hgb 11.6 L Hct 38.1 MCV 90 MCH 27.3 MCHC 30.4 L RDW 21.0 H Plt Count 184 Seg Neutrophils % Not Reportable Carbonic Acid HCO3/H2CO3 Ratio ABG pH ABG pCO2 ABG pO2 ABG HCO3 ABG O2 Saturation ABG Base Excess VBG pH VBG pCO2 VBG HCO3 VBG Base Excess FiO2 Sodium Cancelled Potassium Cancelled Chloride Cancelled Carbon Dioxide Cancelled Anion Gap Cancelled BUN Cancelled Creatinine Cancelled Est GFR ( Amer) Cancelled Est GFR (Non-Af Amer) Cancelled Glucose Cancelled Lactic Acid 2.7 H Calcium Cancelled Phosphorus Magnesium Total Bilirubin Cancelled AST Cancelled Alkaline Phosphatase Cancelled Total Protein Cancelled Albumin Cancelled Lipase TSH Free T4 Free T3 pg/mL Urine Color Urine Appearance Urine pH Ur Specific [place] Urine Protein Urine Glucose (UA) Urine Ketones Urine Blood Urine RBC (Auto) 10/30/19 10/30/19 10/30/19 15:30 16:46 18:20 WBC RBC Hgb Hct MCV MCH MCHC RDW Plt Count Seg Neutrophils % Carbonic Acid 0.80 L HCO3/H2CO3 Ratio 8:1 ABG pH 7.01 L* ABG pCO2 26.6 L ABG pO2 122.4 H ABG HCO3 6.5 L ABG O2 Saturation 96.4 ABG Base Excess -23.0 VBG pH VBG pCO2 VBG HCO3 VBG Base Excess FiO2 ROOM AIR Sodium 120.4 L* Potassium 4.0 Chloride 95 L Carbon Dioxide 6 L* Anion Gap 19 BUN 135 H Creatinine 3.94 H Est GFR ( Amer) 21 L Est GFR (Non-Af Amer) Glucose 1037 H* Lactic Acid Calcium 6.8 L* Phosphorus Magnesium Total Bilirubin 0.4 AST 23 Alkaline Phosphatase 268 H Total Protein 6.0 L Albumin 2.2 L Lipase TSH Free T4 Free T3 pg/mL Urine Color ALYSIA Urine Appearance CLOUDY Urine pH 6.0 Ur Specific [place] 1.012 Urine Protein 100 H Urine Glucose (UA) >=500 H Urine Ketones NEGATIVE Urine Blood MODERATE H Urine RBC (Auto) 53 10/30/19 10/30/19 10/30/19 23:03 23:03 23:35 WBC RBC Hgb Hct MCV MCH MCHC RDW Plt Count Seg Neutrophils % Carbonic Acid 0.57 L HCO3/H2CO3 Ratio 10:1 ABG pH 7.12 L* ABG pCO2 19.0 L* ABG pO2 108.7 H ABG HCO3 6.0 L ABG O2 Saturation 96.4 ABG Base Excess -21.4 VBG pH VBG pCO2 VBG HCO3 VBG Base Excess FiO2 ROOM AIR Sodium 123.7 L Potassium 3.6 Chloride 101 Carbon Dioxide 7 L* Anion Gap 16 BUN 117 H Creatinine 3.53 H Est GFR ( Amer) 24 L Est GFR (Non-Af Amer) Glucose Cancelled 891 H* Lactic Acid Calcium 5.8 L* Phosphorus Magnesium Total Bilirubin AST Alkaline Phosphatase Total Protein Albumin Lipase TSH Free T4 Free T3 pg/mL Urine Color Urine Appearance Urine pH Ur Specific [place] Urine Protein Urine Glucose (UA) Urine Ketones Urine Blood Urine RBC (Auto) 10/31/19 10/31/19 10/31/19 02:00 02:35 04:05 WBC 17.6 H RBC 3.44 L Hgb 9.2 L D Hct 28.8 L MCV 84 D MCH 26.8 L MCHC 32.0 RDW 20.0 H Plt Count 140 L Seg Neutrophils % Not Reportable Carbonic Acid 0.39 L HCO3/H2CO3 Ratio 9:1 ABG pH 7.07 L* ABG pCO2 12.9 L* ABG pO2 104.1 H ABG HCO3 3.6 L ABG O2 Saturation 95.5 ABG Base Excess -24.5 VBG pH VBG pCO2 VBG HCO3 VBG Base Excess FiO2 ROOM AIR Sodium Potassium Chloride Carbon Dioxide Anion Gap BUN Creatinine Est GFR ( Amer) Est GFR (Non-Af Amer) Glucose 652 H* Lactic Acid Calcium Phosphorus Magnesium Total Bilirubin AST Alkaline Phosphatase Total Protein Albumin Lipase TSH Free T4 Free T3 pg/mL Urine Color Urine Appearance Urine pH Ur Specific [place] Urine Protein Urine Glucose (UA) Urine Ketones Urine Blood Urine RBC (Auto) 10/31/19 10/31/19 10/31/19 04:05 04:05 04:05 WBC RBC Hgb Hct MCV MCH MCHC RDW Plt Count Seg Neutrophils % Carbonic Acid HCO3/H2CO3 Ratio ABG pH ABG pCO2 ABG pO2 ABG HCO3 ABG O2 Saturation ABG Base Excess VBG pH VBG pCO2 VBG HCO3 VBG Base Excess FiO2 Sodium 132.2 L Cancelled Potassium 2.9 L* Cancelled Chloride 110 H Cancelled Carbon Dioxide < 5 L* Cancelled Anion Gap Not Reportable Cancelled BUN 105 H Cancelled Creatinine 3.48 H Cancelled Est GFR ( Amer) 24 L Cancelled Est GFR (Non-Af Amer) Cancelled Glucose 533 H* Cancelled Lactic Acid Calcium 5.8 L* Cancelled Phosphorus 7.4 H Magnesium 1.8 Total Bilirubin 0.4 AST 32 Alkaline Phosphatase 183 H Total Protein 5.1 L Albumin 1.8 L Lipase 1749.3 H TSH 1.32 Free T4 1.03 Free T3 pg/mL 1.64 L Urine Color Urine Appearance Urine pH Ur Specific [place] Urine Protein Urine Glucose (UA) Urine Ketones Urine Blood Urine RBC (Auto) 10/31/19 10/31/19 05:23 05:23 WBC RBC Hgb Hct MCV MCH MCHC RDW Plt Count Seg Neutrophils % Carbonic Acid HCO3/H2CO3 Ratio ABG pH ABG pCO2 ABG pO2 ABG HCO3 ABG O2 Saturation ABG Base Excess VBG pH 6.93 L* VBG pCO2 26.8 L VBG HCO3 5.4 L VBG Base Excess -26.2 FiO2 Sodium Potassium Chloride Carbon Dioxide Anion Gap BUN Creatinine Est GFR ( Amer) Est GFR (Non-Af Amer) Glucose Lactic Acid 4.1 H Calcium Phosphorus Magnesium Total Bilirubin AST Alkaline Phosphatase Total Protein Albumin Lipase TSH Free T4 Free T3 pg/mL Urine Color Urine Appearance Urine pH Ur Specific [place] Urine Protein Urine Glucose (UA) Urine Ketones Urine Blood Urine RBC (Auto) 10/30/19 10/30/19 14:51 16:46 Troponin I Cancelled < 0.012 Impressions: Chest X-Ray 10/31/19 00:00 IMPRESSION: Worsening right-sided pneumonia. Assessment and Plan - Diagnosis (1) Diabetic ketoacidosis Qualifiers: Diabetes mellitus type: type 1 Diabetes mellitus complication detail: without coma Qualified Code(s): E10.10 - Type 1 diabetes mellitus with ketoacidosis without coma Is this a current diagnosis for this admission?: Yes Plan: The patient is on an insulin drip for DKA as per protocol. last blood sugar in n250 range. Patient continues to have a significant AG. Patient was placed on a bicarb drip after not responding to insulinand amssive fluid resuscitation. (2) Sepsis Qualifiers: Sepsis type: sepsis due to unspecified organism Sepsis acute organ dysfunction status: unspecified Qualified Code(s): A41.9 - Sepsis, unspecified organism Is this a current diagnosis for this admission?: Yes (3) Abdominal pain Qualifiers: Abdominal location: generalized Qualified Code(s): R10.84 - Generalized abdominal pain Is this a current diagnosis for this admission?: Yes Plan: Unclear how much of his abdomiunal pain could be simp[ly related to DKA and/or an element of pancreatitis. (4) Acute kidney injury Is this a current diagnosis for this admission?: Yes Plan: As of the patient had a normal creatinine. When he presented to the [facility]ospital it was already 3.94 but has started to trend down. danielle does remain a bit oliguric at this time. (5) Acute on chronic pancreatitis Is this a current diagnosis for this admission?: Yes Plan: Lipase was elevated (6) Anemia Qualifiers: Anemia type: iron deficiency Iron deficiency anemia type: other iron deficiency Qualified Code(s): D50.8 - Other iron deficiency anemias Is this a current diagnosis for this admission?: Yes Plan: hb was alittle low onpresentation at 11.6. Looking back his Hb has vaciallted over thepast 1.5 years. Has been as low as 7.3 or as high as 12.6 (7) Hypothermia Qualifiers: Encounter type: initial encounter Qualified Code(s): T68.XXXA - Hypothermia, initial encounter Is this a current diagnosis for this admission?: Yes Plan: Likely response to the DKA and possible sepssis picture Critical Time Critical Time (minutes): 45 Level of Care: ICU -: 1. The care of a critical patient is a dynamic process. This note is a office services representative synopsis but static in nature. The timeframe for treatments given in order is not necessarily the actual time these treatments may have been done. 2. This patient requires critical care secondary to ongoing requirements for therapy not offered or safe outside the critical care environment. Transfer to a lower level of care will result in altered life or limb morbidity and mortality. 3. Multidisciplinary rounds completed. 4. ABCDE bundle addressed.
[2019-10-31 13:07] LABS: ARTERIAL BLOOD BASE EXCESS -17.2 mmol/L; ARTERIAL BLOOD H2CO3 0.61 mmol/L (1.05-1.35); ARTERIAL BLOOD HCO3 8.5 mmol/L (20-24); ARTERIAL BLOOD O2 SATURATION 98.7 % (94-98); ARTERIAL BLOOD PH 7.24 (7.35-7.45); ARTERIAL BLOOD PO2 155.3 mmHg (80-100); ARTERIAL BLOOD TOTAL CO2 9.1 mmol/L (23-27)
[2019-10-31 13:08] LABS: ARTERIAL BLOOD FIO2 40%
[2019-10-31 13:10] LABS: ARTERIAL BLOOD PCO2 20.2 mmHg (35-45)
[2019-10-31] MEDS ORDERED: NOREPINEPHRINE BITARTRATE INJ/PF 4 MG/4 ML SDV IV ONE (13:11)
[2019-10-31] MEDS ORDERED: DEXTROSE 5%-WATER 1000 ML 1,000 ML with POTASSIUM CHLORIDE 40 MEQ IV PRN ×2 (14:00)
[2019-10-31] MEDS: DEXTROSE 5%-WATER 250 ML with NOREPINEPHRINE BITARTRATE 4 MG IV PRN ×2 (14:10)
[2019-10-31 14:37] LABS: ANION GAP 12 (5-19); BLOOD UREA NITROGEN 100 mg/dL (7-20); CARBON DIOXIDE 11 mmol/L (22-30); CHLORIDE 115 mmol/L (98-107); GLUCOSE 151 mg/dL (75-110); POTASSIUM 3.2 mmol/L (3.6-5.0)
[2019-10-31 14:54] LABS: CALCIUM 5.9 mg/dL (8.4-10.2)
[2019-10-31] MEDS: PIPERACILLIN SODIUM/TAZOBACTAM 2.25 GM in NORMAL SALINE 50 ML IV SCH ×2 (15:38→21:37)
[2019-10-31] MEDS ORDERED: DEXTROSE 50%-WATER 25 GM/50 ML DISP.SYRIN IV PRN (18:05)
[2019-10-31] MEDS ORDERED: GLUCAGON,HUMAN RECOMB 1 MG INJ IM PRN (18:05)
[2019-10-31] MEDS ORDERED: DEXTROSE 40% GEL 15 GM TUBE PO PRN ×2 (18:05)
[2019-10-31 18:37] LABS: ANION GAP 13 (5-19); BLOOD UREA NITROGEN 97 mg/dL (7-20); CARBON DIOXIDE 12 mmol/L (22-30); CHLORIDE 113 mmol/L (98-107); GLUCOSE 127 mg/dL (75-110); POTASSIUM 3.8 mmol/L (3.6-5.0)
[2019-10-31 18:52] LABS: CALCIUM 6.3 mg/dL (8.4-10.2)
[2019-10-31] MEDS: FENTANYL CITRATE INJ/PF 100 MCG/2 ML AMPUL IV PRN ×2 (19:14→23:47)
[2019-10-31] MEDS: INSULIN REG, HUMAN 100 UNIT/ML 3 ML VIAL (PYX) SUBCUT SCH (21:37)
[2019-10-31 22:26] LABS: ANION GAP 10 (5-19); BLOOD UREA NITROGEN 101 mg/dL (7-20); CARBON DIOXIDE 14 mmol/L (22-30); CHLORIDE 112 mmol/L (98-107); GLUCOSE 216 mg/dL (75-110); POTASSIUM 3.7 mmol/L (3.6-5.0)
[2019-10-31] MEDS: INSULIN GLARGINE,HUM.REC.ANLOG 1,000 UNIT/10 ML VIAL SUBCUT SCH (22:48)
[2019-10-31] MEDS ORDERED: CALCIUM GLUCONATE 1000 MG/10 ML INJ IV ONE (23:22)
[2019-11-01] MEDS: INSULIN REG, HUMAN 100 UNIT/ML 3 ML VIAL (PYX) SUBCUT SCH ×6 (02:35→21:50)
[2019-11-01] MEDS: PIPERACILLIN SODIUM/TAZOBACTAM 2.25 GM in NORMAL SALINE 50 ML IV SCH ×4 (03:06→21:51)
[2019-11-01] MEDS ORDERED: CALCIUM GLUC IN NACL, ISO-OSM 1 GM/50 ML RTUPB IV ONE (03:36)
[2019-11-01 03:44] LABS: HEMATOCRIT 23.6 % (37.9-51.0); HEMOGLOBIN 8.2 g/dL (13.5-17.0); MEAN CORPUSCULAR HEMOGLOBIN 27.4 pg (27.0-33.4); MEAN CORPUSCULAR HGB CONC 34.7 g/dL (32.0-36.0); RED BLOOD COUNT 2.99 10^6/uL (4.35-5.55); WHITE BLOOD COUNT 14.7 10^3/uL (4.0-10.5)
[2019-11-01 03:53] LABS: MEAN CORPUSCULAR VOLUME 79 fl (80-97); PLATELET COUNT 92 10^3/uL (150-450)
[2019-11-01 03:54] LABS: ALBUMIN 1.5 g/dL (3.5-5.0); ALKALINE PHOSPHATASE 168 U/L (38-126); ANION GAP 14 (5-19); ASPARTATE AMINO TRANSFERASE 26 U/L (17-59); BILIRUBIN,DIRECT 0.4 mg/dL (0.0-0.4); BILIRUBIN,TOTAL 0.5 mg/dL (0.2-1.3); BLOOD UREA NITROGEN 98 mg/dL (7-20); CARBON DIOXIDE 13 mmol/L (22-30); CHLORIDE 110 mmol/L (98-107); GLUCOSE 216 mg/dL (75-110); TOTAL PROTEIN 4.4 g/dL (6.3-8.2)
[2019-11-01 04:00] LABS: POTASSIUM 3.7 mmol/L (3.6-5.0)
[2019-11-01 04:09] LABS: ABSOLUTE LYMPHOCYTES# (MANUAL) 1.6 10^3/uL (0.5-4.7); ABSOLUTE MONOCYTES # (MANUAL) 0.9 10^3/uL (0.1-1.4); BAND NEUTROPHILS % (MANUAL) 5 % (3-5); BASOPHILS % (MANUAL) 0 % (0-2); EOSINOPHILS % (MANUAL) 0 % (0-6); LYMPHOCYTES % (MANUAL) 11 % (13-45); MONOCYTES % (MANUAL) 6 % (3-13); PHOSPHORUS 3.3 mg/dL (2.5-4.5); SEGMENTED NEUTROPHILS % (MAN) 78 % (42-78); TOTAL CELLS COUNTED 100
[2019-11-01] MEDS: CALCIUM GLUC IN NACL, ISO-OSM 1 GM/50 ML RTUPB IV SCH (04:09)
[2019-11-01 04:10] LABS: CALCIUM 5.9 mg/dL (8.4-10.2)
[2019-11-01 04:20] LABS: ANISOCYTOSIS 2+; PLATELET COMMENT DECREASED
[2019-11-01 04:21] LABS: POIKILOCYTOSIS SLIGHT
[2019-11-01 04:22] LABS: BURR CELLS 2+; OVALOCYTES SLIGHT
[2019-11-01] MEDS: HEPARIN SOD (PORCINE) 5,000 UNIT/ML 1 ML VIAL SUBCUT SCH ×3 (06:49→22:35)
[2019-11-01] MEDS: DEXTROSE 5%-WATER 250 ML with NOREPINEPHRINE BITARTRATE 4 MG IV PRN ×2 (08:18)
[2019-11-01] MEDS: RINGERS SOLUTION,LACTATED 1,000 ML IV PRN (08:21)
[2019-11-01] MEDS: PROPOFOL 1,000 MG/100 ML INFUS..BTL IV PRN ×2 (08:21→17:42)
--- NOTE | 2019-11-01 09:33 | PDOC CRITICAL CARE PROG REPORT ---
General ICU Day:: 2 Ventilator Day:: 2 Hospital Day:: 2 Resuscitation Status: Full Code Events in the past 12 to 24 Hours:: 10/30 The patient presented acutely ill. The main reason appears to henry DKA. There may be some other complications as well including sepsis and shock and pancreatitis. The patient was found on the ground poorly responsive in his feces. Drug screen was negative. His initial Blood sugar was over 1000. The patient was placed on an insulin drip. His urine looked infected so it was sent for culture and empiric abx theroay started. The patient was quite hypothermic on presentation He was placed on the Tyrell Hugger and HIS TEMP HAS RISEN. tHE PATIENT HAD TO be intubated for very obtunded mental status. His lipase came back elevated. He likely has pancreatitis. 10/31 The patient appears to be doing a little better. His blood sugar is better and he is off the insulin drip. His AG is now 13. he is on small dose of intermediate insulin and coverage. His renal fn. remains abnormal. We gave him a fair amount of fluid yesterday but creatinine remians about 3. Has received multiple doses of calcium for his low Ca++. When corrected for his low albumin irt is not really low or modestly so. he has grwn out multiple + blood cultures with staph aureus and enterococcus the source unclear he did have a dirty urine on admission. I doid ask for an ECHO to r/o endocarditis and will send surveillance cultures in the near future as well. Hypothermia resolved. Reason for ICU Addmission:: DKA Physical Exam Vital Signs: Temp Pulse Resp BP Pulse Ox 98.6 F 79 19 95/60 L 100 11/01/19 07:56 11/01/19 07:56 11/01/19 07:56 11/01/19 07:56 11/01/19 08:00 Intake & Output 10/31/19 11/01/19 11/02/19 06:59 06:59 06:59 Intake Total 9096 4094 91 Output Total 850 2135 45 Balance 8246 1959 46 Weight 47 kg 54.9 kg Weight/Height Weight 54.9 kg Height 5 ft 9 in General appearance: PRESENT: no acute distress, thin Head exam: PRESENT: atraumatic, normocephalic Eye exam: PRESENT: conjunctiva pink Ear exam: PRESENT: normal external ear exam Mouth exam: PRESENT: moist Neck exam: ABSENT: JVD, lymphadenopathy, tenderness, thyromegaly, tracheal deviation Respiratory exam: PRESENT: unlabored. ABSENT: accessory muscle use Cardiovascular exam: PRESENT: RRR, +S1, +S2 GI/Abdominal exam: PRESENT: normal bowel sounds, soft Rectal exam: PRESENT: deferred Extremities exam: ABSENT: joint swelling, tenderness Neurological exam: PRESENT: altered - The patient remains sedated on the ventialtor Tubes/Lines: PRESENT: Endotracheal Tube Laboratory/Radiographs Laboratory Results: 11/01/19 03:15 11/01/19 03:15 10/31/19 10/31/19 10/31/19 09:44 10:30 12:50 WBC RBC Hgb Hct MCV MCH MCHC RDW Plt Count Seg Neutrophils % Carbonic Acid 0.68 L 0.61 L HCO3/H2CO3 Ratio 11:1 13:1 ABG pH 7.16 L* 7.24 L ABG pCO2 22.5 L 20.2 L* ABG pO2 147.0 H 155.3 H ABG HCO3 7.8 L 8.5 L ABG O2 Saturation 98.3 H 98.7 H ABG Base Excess -19.2 -17.2 FiO2 40% 40% Sodium 138.7 Potassium 3.4 L Chloride 114 H Carbon Dioxide 6 L* Anion Gap 19 BUN 102 H Creatinine 2.89 H Est GFR ( Amer) 30 L Est GFR (Non-Af Amer) Glucose 266 H Calcium 5.4 L* Phosphorus Magnesium Total Bilirubin AST Alkaline Phosphatase Total Protein Albumin 10/31/19 10/31/19 10/31/19 14:00 18:00 21:30 WBC RBC Hgb Hct MCV MCH MCHC RDW Plt Count Seg Neutrophils % Carbonic Acid HCO3/H2CO3 Ratio ABG pH ABG pCO2 ABG pO2 ABG HCO3 ABG O2 Saturation ABG Base Excess FiO2 Sodium 138.1 137.9 Cancelled Potassium 3.2 L 3.8 Cancelled Chloride 115 H 113 H Cancelled Carbon Dioxide 11 L 12 L Cancelled Anion Gap 12 13 Cancelled BUN 100 H 97 H Cancelled Creatinine 3.12 H 3.00 H Cancelled Est GFR ( Amer) 27 L 29 L Cancelled Est GFR (Non-Af Amer) Cancelled Glucose 151 H 127 H Cancelled Calcium 5.9 L* 6.3 L* Cancelled Phosphorus Magnesium Total Bilirubin AST Alkaline Phosphatase Total Protein Albumin 10/31/19 11/01/19 11/01/19 21:50 03:15 03:15 WBC 14.7 H RBC 2.99 L Hgb 8.2 L Hct 23.6 L MCV 79 L D MCH 27.4 MCHC 34.7 RDW 20.0 H Plt Count 92 L Seg Neutrophils % Not Reportable Carbonic Acid HCO3/H2CO3 Ratio ABG pH ABG pCO2 ABG pO2 ABG HCO3 ABG O2 Saturation ABG Base Excess FiO2 Sodium 136.2 L 136.6 L Potassium 3.7 3.7 Chloride 112 H 110 H Carbon Dioxide 14 L 13 L Anion Gap 10 14 BUN 101 H 98 H Creatinine 2.94 H 3.11 H Est GFR ( Amer) 29 L 27 L Est GFR (Non-Af Amer) Glucose 216 H 216 H Calcium 6.0 L* 5.9 L* Phosphorus 3.3 D Magnesium 1.6 Total Bilirubin 0.5 AST 26 Alkaline Phosphatase 168 H Total Protein 4.4 L Albumin 1.5 L 10/30/19 18:00 Blood Blood Culture (PCR) - Final Staphylococcus Aureus 10/30/19 17:45 Blood Blood Culture (PCR) - Final Enterococcus Species Staphylococcus Aureus 10/30/19 10/30/19 14:51 16:46 Troponin I Cancelled < 0.012 Impressions: Chest X-Ray 10/31/19 00:00 IMPRESSION: Worsening right-sided pneumonia. Assessment and Plan - Diagnosis (1) Diabetic ketoacidosis Qualifiers: Diabetes mellitus type: type 1 Diabetes mellitus complication detail: without coma Qualified Code(s): E10.10 - Type 1 diabetes mellitus with ketoacidosis without coma Is this a current diagnosis for this admission?: Yes Plan: The patient is on an insulin drip for DKA as per protocol. Last blood sugar in 250 range. Patient continues to have a significant AG. Patient was placed on a bicarb drip after not responding to insulin and massive fluid resuscitation. 10/31 DKA resolved. patient off the insulin drip. Blood sugars are in the low 200s. GAP is closing. (2) Sepsis Qualifiers: Sepsis type: sepsis due to unspecified organism Sepsis acute organ dysfunction status: unspecified Qualified Code(s): A41.9 - Sepsis, unspecified organism Is this a current diagnosis for this admission?: Yes Plan: The patient is on Vancocin and Zosyn Given the finsding of MRSA and enterococcus we can likely stop Zosyn shortly. The patient remains on low dose nrepi at this time at 2 mcg/min. (3) Abdominal pain Qualifiers: Abdominal location: generalized Qualified Code(s): R10.84 - Generalized abdominal pain Is this a current diagnosis for this admission?: Yes Plan: Unclear how much of his abdomiunal pain could be simp[ly related to DKA and/or an element of pancreatitis. (4) Acute kidney injury Is this a current diagnosis for this admission?: Yes Plan: As of the patient had a normal creatinine. When he presented to the hoospital it was already 3.94 but has started to trend down. danielle does remain a bit oliguric at this time. 10/31 Creatinine is better from the time of admission. Hopefully, will continue to trend down. he put out about 2 liters of urine in thepast 24 hours. (5) Acute on chronic pancreatitis Is this a current diagnosis for this admission?: Yes (6) Anemia Qualifiers: Anemia type: iron deficiency Iron deficiency anemia type: other iron de ficiency Qualified Code(s): D50.8 - Other iron deficiency anemias Is this a current diagnosis for this admission?: Yes Plan: hb was alittle low onpresentation at 11.6. Looking back his Hb has vaciallted over thepast 1.5 years. Has been as low as 7.3 or as high as 12.6 (7) Hypothermia Qualifiers: Encounter type: initial encounter Qualified Code(s): T68.XXXA - Hypothermia, initial encounter Is this a current diagnosis for this admission?: Yes Plan: Likely response to the DKA and possible sepssis picture 10/31 Hypothermia resolved. Critical Time Critical Time (minutes): 35 Level of Care: ICU -: 1. The care of a critical patient is a dynamic process. This note is a passenger representative synopsis but static in nature. The timeframe for treatments given in order is not necessarily the actual time these treatments may have been done. 2. This patient requires critical care secondary to ongoing requirements for therapy not offered or safe outside the critical care environment. Transfer to a lower level of care will result in altered life or limb morbidity and mortality. 3. Multidisciplinary rounds completed. 4. ABCDE bundle addressed.
[2019-11-01] MEDS: VANCOMYCIN HCL 500 MG in DEXTROSE 5%-WATER 100 ML IV SCH (10:36)
[2019-11-01] MEDS: FAMOTIDINE INJ/PF 20 MG/2 ML SDV IV SCH ×2 (10:37→17:42)
[2019-11-01] MEDS: ALBUMIN HUMAN 12.5 GM/50 ML RTUINJ IV SCH ×2 (10:38→21:58)
[2019-11-01] MEDS: INSULIN GLARGINE,HUM.REC.ANLOG 1,000 UNIT/10 ML VIAL SUBCUT SCH ×2 (10:39→22:37)
[2019-11-01 11:15] LABS: ARTERIAL BLOOD BASE EXCESS -4.9 mmol/L; ARTERIAL BLOOD FIO2 35%; ARTERIAL BLOOD H2CO3 0.74 mmol/L (1.05-1.35); ARTERIAL BLOOD HCO3 17.7 mmol/L (20-24); ARTERIAL BLOOD O2 SATURATION 98.2 % (94-98); ARTERIAL BLOOD PCO2 24.5 mmHg (35-45); ARTERIAL BLOOD PH 7.48 (7.35-7.45); ARTERIAL BLOOD PO2 105.5 mmHg (80-100); ARTERIAL BLOOD TOTAL CO2 18.5 mmol/L (23-27)
--- NOTE | 2019-11-01 12:08 | RADIOLOGY REPORT (SQ) ---
EXAM DESCRIPTION: CHEST SINGLE VIEW IMAGES COMPLETED DATE/TIME: 11/01/2019 11:49 am REASON FOR STUDY: f/u RLL pneumonia COMPARISON: 10/31/2019 EXAM PARAMETERS: NUMBER OF VIEWS: One view. TECHNIQUE: Single frontal radiographic view of the chest acquired. RADIATION DOSE: NA LIMITATIONS: None. FINDINGS: LUNGS AND PLEURA: Once again there is patchy opacification in the right lower lobe. There is now patchy opacification in the left lower lobe. MEDIASTINUM AND HILAR STRUCTURES: No masses. Contour normal. HEART AND VASCULAR STRUCTURES: Heart normal in size. Normal vasculature. BONES: No acute findings. HARDWARE: Endotracheal tube and NG tube remain in place. OTHER: No other significant finding. IMPRESSION: Bilateral patchy airspace disease, may represent atypical infectious/ inflammatory proce ss. The findings have increased since the previous day's study. TECHNICAL DOCUMENTATION: JOB ID: [id number] 2010 [employer]- All Rights Reserved Reading location - IP/workstation name: [email or web address]
[2019-11-01] MEDS ORDERED: VANCOMYCIN HCL 750 MG in DEXTROSE 5%-WATER 250 ML IV SCH (18:00)
[2019-11-01 19:41] LABS: C DIFFICILE GDH POSITIVE (NEGATIVE)
[2019-11-01] MEDS: DEXTROSE 50%-WATER 25 GM/50 ML DISP.SYRIN IV PRN (21:53)
[2019-11-02] MEDS: RINGERS SOLUTION,LACTATED 1,000 ML IV PRN ×2 (00:30→13:47)
--- NOTE | 2019-11-02 01:08 | XCELERA REPORT ---
[address] [address] Transthoracic Echocardiogram Report Name: CHESTER MCKEON Age: 39 yrs Gender: Male : 1980 Patient Status: Inpatient Patient Location: ICU^[id number] Study Date: 11/01/2019 08:07 AM Height: 69 in Weight: 121 lb BSA: 1.7 m2 Procedure: A two-dimensional transthoracic echocardiogram with color flow and Doppler was performed. Study Quality: Good. Reason For Study: Endocarditis History: Endocarditis. Ordering Physician: WILIAM BURKETT Performed By: Quin Wilde Interpretation Summary No vegetations and no evidence of Endocarditis. The left ventricle is normal in size. There is normal left ventricular wall thickness. LV EF is > than 60% Left ventricular systolic function is normal. Doppler measurements suggest normal left ventricular diastolic function The left ventricular wall motion is normal. There is no thrombus. There is no ventricular septal defect visualized. The right ventricle is normal in size and function. The left atrial size is normal. There is no evidence of mitral valve prolapse. There is no vegetation seen on the mitral valve. There is no mitral valve stenosis. There is a trace amount of mitral regurgitation There is no aortic valvular vegetation. There is no aortic valve stenosis There is no LVOT obstruction. No aortic regurgitation is present. There is no tricuspid valve vegetation. There is no tricuspid stenosis. There is a trace to mild amount of tricuspid regurgitation There is mild to moderate pulmonary hypertension by echo RVSP is 44 to 49 mm of Hg , with RA mean of 15 to 20. There is no vegetation on the pulmonic valve. There is no pulmonic valvular stenosis. There is a trace amount of pulmonic regurgitation The aortic root is normal size. The inferior vena cava appeared dilated and decreased < 50% with respiration (RAP 15-20 mmHg) There is no pericardial effusion. No vegetations and no evidence of Endocarditis. MMode/2D Measurements & Calculations RVDd: 2.3 cm LVIDd: 4.6 cm FS: 34.6 % Ao root diam: 2.9 cm IVSd: 0.84 cm LVIDs: 3.0 cm EDV(Teich): 98.8 ml Ao root area: 6.8 cm2 LVPWd: 0.85 cm ESV(Teich): 35.8 ml EF(Teich): 63.7 % Doppler Measurements & Calculations MV E max timoteo: MV dec slope: Ao V2 max: LV V1 max P.9 cm/sec 627.9 cm/sec2 120.8 cm/sec 4.5 mmHg MV A max timoteo: MV dec time: 0.16 sec Ao max P.8 mmHgLV V1 max: 59.0 cm/sec 105.8 cm/sec MV E/A: 1.7 PA V2 max: PI end-d timoteo: TR max timoteo: 83.1 cm/sec 111.5 cm/sec 269.0 cm/sec PA max P.8 mmHg TR max P.9 mmHg Left Ventricle The left ventricle is normal in size. There is normal left ventricular wall thickness. LV EF is > than 60%. Left ventricular systolic function is normal. Doppler measurements suggest normal left ventricular diastolic function. The left ventricular wall motion is normal. There is no thrombus. There is no ventricular septal defect visualized. Right Ventricle The right ventricle is normal in size and function. Atria The right atrium is normal. The left atrial size is normal. Mitral Valve There is no evidence of mitral valve prolapse. There is no vegetation seen on the mitral valve. There is no mitral valve stenosis. There is a trace amount of mitral regurgitation. Aortic Valve There is no aortic valvular vegetation. There is no aortic valve stenosis. There is no LVOT obstruction. No aortic regurgitation is present. Tricuspid Valve There is no tricuspid valve vegetation. There is no tricuspid stenosis. There is a trace to mild amount of tricuspid regurgitation. There is mild to moderate pulmonary hypertension by echo. RVSP is 44 to 49 mm of Hg , with RA mean of 15 to 20. Pulmonic Valve There is no vegetation on the pulmonic valve. There is no pulmonic valvular stenosis. There is a trace amount of pulmonic regurgitation. Great Vessels The aortic root is normal size. The inferior vena cava appeared dilated and decreased < 50% with respiration (RAP 15-20 mmHg). Effusions There is no pericardial effusion. : WILIAM BURKETT Lakshmi
[2019-11-02] MEDS: INSULIN REG, HUMAN 100 UNIT/ML 3 ML VIAL (PYX) SUBCUT SCH ×6 (02:51→21:40)
[2019-11-02] MEDS: PIPERACILLIN SODIUM/TAZOBACTAM 2.25 GM in NORMAL SALINE 50 ML IV SCH ×2 (02:52→10:51)
[2019-11-02] MEDS: PROPOFOL 1,000 MG/100 ML INFUS..BTL IV PRN (04:00)
[2019-11-02] MEDS: DEXTROSE 50%-WATER 25 GM/50 ML DISP.SYRIN IV PRN ×2 (05:48→13:49)
[2019-11-02 06:26] LABS: ALBUMIN 1.8 g/dL (3.5-5.0); ALKALINE PHOSPHATASE 160 U/L (38-126); ANION GAP 14 (5-19); ASPARTATE AMINO TRANSFERASE 22 U/L (17-59); BILIRUBIN,DIRECT 0.5 mg/dL (0.0-0.4); BILIRUBIN,TOTAL 0.6 mg/dL (0.2-1.3); BLOOD UREA NITROGEN 87 mg/dL (7-20); CARBON DIOXIDE 18 mmol/L (22-30); CHLORIDE 109 mmol/L (98-107); PHOSPHORUS 3.4 mg/dL (2.5-4.5); POTASSIUM 3.2 mmol/L (3.6-5.0); TOTAL PROTEIN 4.9 g/dL (6.3-8.2)
[2019-11-02 06:38] LABS: CALCIUM 6.4 mg/dL (8.4-10.2); HEMOGLOBIN 8.2 g/dL (13.5-17.0); MEAN CORPUSCULAR HEMOGLOBIN 26.8 pg (27.0-33.4); MEAN CORPUSCULAR HGB CONC 34.4 g/dL (32.0-36.0); MEAN CORPUSCULAR VOLUME 78 fl (80-97); RED BLOOD COUNT 3.08 10^6/uL (4.35-5.55); RED CELL DISTRIBUTION WIDTH 19.8 % (11.5-14.0)
[2019-11-02 06:54] LABS: ABSOLUTE LYMPHOCYTES# (MANUAL) 1.7 10^3/uL (0.5-4.7); ABSOLUTE MONOCYTES # (MANUAL) 0.2 10^3/uL (0.1-1.4); BASOPHILS % (MANUAL) 0 % (0-2); EOSINOPHILS % (MANUAL) 1 % (0-6); LYMPHOCYTES % (MANUAL) 11 % (13-45); MONOCYTES % (MANUAL) 1 % (3-13); SEGMENTED NEUTROPHILS % (MAN) 73 % (42-78); TOTAL CELLS COUNTED 100
[2019-11-02 06:55] LABS: ANISOCYTOSIS 2+; BURR CELLS 1+; HYPOCHROMASIA SLIGHT; PLATELET COMMENT DECREASED; TOXIC GRANULATION 1+
[2019-11-02 06:56] LABS: PLATELET COUNT 57 10^3/uL (150-450)
[2019-11-02 06:58] LABS: BAND NEUTROPHILS % (MANUAL) 14 % (3-5)
[2019-11-02] MEDS: HEPARIN SOD (PORCINE) 5,000 UNIT/ML 1 ML VIAL SUBCUT SCH (07:02)
[2019-11-02 07:13] LABS: GLUCOSE 42 mg/dL (75-110)
[2019-11-02] MEDS: VANCOMYCIN HCL 500 MG in DEXTROSE 5%-WATER 100 ML IV SCH (08:26)
[2019-11-02] MEDS: MAGNESIUM SULFATE/D5W 1 GM/100 ML RTUPB IV SCH ×2 (08:50→09:58)
[2019-11-02 08:51] LABS: ARTERIAL BLOOD BASE EXCESS -3.9 mmol/L; ARTERIAL BLOOD H2CO3 0.73 mmol/L (1.05-1.35); ARTERIAL BLOOD HCO3 18.2 mmol/L (20-24); ARTERIAL BLOOD O2 SATURATION 93.8 % (94-98); ARTERIAL BLOOD PCO2 24.3 mmHg (35-45); ARTERIAL BLOOD PH 7.49 (7.35-7.45); ARTERIAL BLOOD PO2 61.4 mmHg (80-100); ARTERIAL BLOOD TOTAL CO2 18.9 mmol/L (23-27)
[2019-11-02] MEDS: POTASSI CL 20 MEQ/50 ML RIDER 20 MEQ/50 ML RTUPB IV SCH ×2 (08:52→11:04)
[2019-11-02 08:59] LABS: ARTERIAL BLOOD FIO2 35%
--- NOTE | 2019-11-02 09:45 | PDOC CRITICAL CARE PROG REPORT ---
General Date:: 11/02/19 ICU Day:: 3 Ventilator Day:: 3 Hospital Day:: 3 Resuscitation Status: Full Code Events in the past 12 to 24 Hours:: 10/30 The patient presented acutely ill. The main reason appears to henry DKA. There may be some other complications as well including sepsis and shock and pancreatitis. The patient was found on the ground poorly responsive in his feces. Drug screen was negative. His initial Blood sugar was over 1000. The patient was placed on an insulin drip. His urine looked infected so it was sent for culture and empiric abx theroay started. The patient was quite hypothermic on presentation He was placed on the Tyrell Hugger and HIS TEMP HAS RISEN. tHE PATIENT HAD TO be intubated for very obtunded mental status. His lipase came back elevated. He likely has pancreatitis. 10/31 The patient appears to be doing a little better. His blood sugar is better and he is off the insulin drip. His AG is now 13. he is on small dose of intermediate insulin and coverage. His renal fn. remains abnormal. We gave him a fair amount of fluid yesterday but creatinine remians about 3. Has received multiple doses of calcium for his low Ca++. When corrected for his low albumin irt is not really low or modestly so. he has grown out multiple + blood cultures with staph aureus and enterococcus the source unclear he did have a dirty urine on admission. I doid ask for an ECHO to r/o endocarditis and will send surveillance cultures in the near future as well. Hypothermia resolved. 11/01 the patient overall appears to be doing better. His blood sugar dropped overnight so I stopped his Lantus. he has been started on feeds. He is emaciated. his mother attributes it to his pancreatitis. I asked her what the etiology was but she was unsure. The patient reportedly has chronic diarrhea on the basis of this pancreatitis I am repeating his lipase. His CXR yesterday looked worse. He has bilateral lower lobe densities. Has been on Zosynand Vanco. I sent off request for sputum fungus and AFB. in addition, i requested HIV test for patient given his malnutrition and these infiltrates. I would like to extubate the patient today if possible. The patient haad multiple positive blood cultures for MRSA. He had an ECHO yesterday which did not suggest any evidence of a valvular vegetation. Reason for ICU Addmission:: DKA Physical Exam Vital Signs: Temp Pulse Resp BP Pulse Ox 99.0 F 76 19 91/56 L 99 11/02/19 08:00 11/02/19 08:00 11/02/19 08:00 11/02/19 08:00 11/02/19 08:15 Intake & Output 11/01/19 11/02/19 11/03/19 06:59 06:59 06:59 Intake Total 4094 2570 319 Output Total 2135 2170 220 Balance 1959 400 99 Weight 54.9 kg 55.1 kg Weight/Height Weight 55.1 kg Height 5 ft 9 in General appearance: PRESENT: no acute distress Head exam: PRESENT: atraumatic, normocephalic Eye exam: PRESENT: conjunctiva pink Mouth exam: PRESENT: moist, neck supple Neck exam: ABSENT: lymphadenopathy, thyromegaly, tracheal deviation Cardiovascular exam: PRESENT: RRR, +S1, +S2 Pulses: PRESENT: normal dorsalis pedis pul GI/Abdominal exam: PRESENT: normal bowel sounds, soft Rectal exam: PRESENT: deferred Extremities exam: ABSENT: calf tenderness, pedal edema Musculoskeletal exam: PRESENT: full ROM, normal inspection Neurological exam: PRESENT: other - patient remains sedated on the ventialtor Skin exam: PRESENT: normal color Laboratory/Radiographs Laboratory Results: 11/02/19 05:40 11/02/19 05:40 11/01/19 11/01/19 11/02/19 10:55 17:40 05:40 WBC 15.0 H RBC 3.08 L Hgb 8.2 L Hct 24.0 L MCV 78 L MCH 26.8 L MCHC 34.4 RDW 19.8 H Plt Count 57 L Seg Neutrophils % Not Reportable Carbonic Acid 0.74 L HCO3/H2CO3 Ratio 23:1 ABG pH 7.48 H ABG pCO2 24.5 L ABG pO2 105.5 H ABG HCO3 17.7 L ABG O2 Saturation 98.2 H ABG Base Excess -4.9 FiO2 35% Sodium Potassium Chloride Carbon Dioxide Anion Gap BUN Creatinine Est GFR ( Amer) Glucose Calcium Phosphorus Magnesium Total Bilirubin AST Alkaline Phosphatase Total Protein Albumin Stl C.difficile Tox PCR NEGATIVE 11/02/19 11/02/19 05:40 08:40 WBC RBC Hgb Hct MCV MCH MCHC RDW Plt Count Seg Neutrophils % Carbonic Acid 0.73 L HCO3/H2CO3 Ratio 24:1 ABG pH 7.49 H ABG pCO2 24.3 L ABG pO2 61.4 L ABG HCO3 18.2 L ABG O2 Saturation 93.8 L ABG Base Excess -3.9 FiO2 35% Sodium 140.7 Potassium 3.2 L Chloride 109 H Carbon Dioxide 18 L Anion Gap 14 BUN 87 H Creatinine 2.87 H Est GFR ( Amer) 30 L Glucose 42 L Calcium 6.4 L* Phosphorus 3.4 Magnesium 1.5 L Total Bilirubin 0.6 AST 22 Alkaline Phosphatase 160 H Total Protein 4.9 L Albumin 1.8 L Stl C.difficile Tox PCR 10/30/19 17:45 Blood Blood Culture (PCR) - Final Enterococcus Species Staphylococcus Aureus 10/30/19 18:00 Blood Blood Culture (PCR) - Final Staphylococcus Aureus 10/30/19 10/30/19 14:51 16:46 Troponin I Cancelled < 0.012 Impressions: Chest X-Ray 11/01/19 00:00 IMPRESSION: Bilateral patchy airspace disease, may represent atypical infectious/ inflammatory process. The findings have increased since the previous day's study. Assessment and Plan - Diagnosis (1) Diabetic ketoacidosis Qualifiers: Diabetes mellitus type: type 1 Diabetes mellitus complication detail: without coma Qualified Code(s): E10.10 - Type 1 diabetes mellitus with ketoacidosis without coma Is this a current diagnosis for this admission?: Yes Plan: The patient is on an insulin drip for DKA as per protocol. Last blood sugar in 250 range. Patient continues to have a significant AG. Patient was placed on a bicarb drip after not responding to insulin and massive fluid resuscitation. 10/31 DKA resolved. patient off the insulin drip. Blood sugars are in the low 200s. GAP is closing. 11/01 DKA resolved. dropped BS overnight. i stopped small dose of lantus. (2) Sepsis Qualifiers: Sepsis type: sepsis due to unspecified organism Sepsis acute organ dysfunction status: unspecified Qualified Code(s): A41.9 - Sepsis, unspecified organism Is this a current diagnosis for this admission?: Yes Plan: The patient is on Vancocin and Zosyn Given the finsding of MRSA and enterococcus we can likely stop Zosyn shortly. The patient remains on low dose nrepi at this time at 2 mcg/min. 11/01 the source of his sepsis unclear. he did have bilaterl infiltrates and a suspicious urine on presentation. I am goiing rto send repeat blood cultures today. his ECHO as noted ws negative for endocarditis (3) Abdominal pain Qualifiers: Abdominal location: generalized Qualified Code(s): R10.84 - Generalized abdominal pain Is this a current diagnosis for this admission?: Yes Plan: Unclear how much of his abdominal pain could be simp[ly related to DKA and/or an element of pancreatitis. 11/01 i am rpeating lipase test. His belly does not appear to be tender. No guarding or rigidity. (4) Acute kidney injury Is this a current diagnosis for this admission?: Yes Plan: As of the patient had a normal creatinine. When he presented to the hoospital it was already 3.94 but has started to trend down. danielle does remain a bit oliguric at this time. 10/31 Creatinine is better from the time of admission. Hopefully, will continue to trend down. he put out about 2 liters of urine in the past 24 hours. 11/01 His creatinine is a little better. Urine output > 2 liters last 24 hours. BUN tranding down albeit slowly. (5) Acute on chronic pancreatitis Is this a current diagnosis for this admission?: Yes Plan: Lipase was elevated 11/01 his mother gives a history of weight loss , chroinc diarrhewa and relates it to this diagnosis oif chronic pancrsweatitis. the etiology however is unclear. (6) Anemia Qualifiers: Anemia type: iron deficiency Iron deficiency anemia type: other iron deficiency Qualified Code(s): D50.8 - Other iron deficiency anemias Is this a current diagnosis for this admission?: Yes Plan: hb was alittle low onpresentation at 11.6. Looking back his Hb has vaciallted over thepast 1.5 years. Has been as low as 7.3 or as high as 12.6 (7) Acute respiratory failure Qualifiers: Respiratory failure complication: hypoxia Qualified Code(s): J96.01 - Acute respiratory failure with hypoxia Is this a current diagnosis for this admission?: Yes Plan: The patiet was intuabted upon admission for airway porotection. he does appear rtto have bialterla oneunmmonia a t this time as well. We are going to try to blair thepatient if tolerated. Critical Time Critical Time (minutes): 40 Level of Care: ICU -: 1. The care of a critical patient is a dynamic process. This note is a solar sales representative and assessor synopsis but static in nature. The timeframe for treatments given in order is not necessarily the actual time these treatments may have been done. 2. This patient requires critical care secondary to ongoing requirements for therapy not offered or safe outside the critical care environment. Transfer to a lower level of care will result in altered life or limb morbidity and mortality. 3. Multidisciplinary rounds completed. 4. ABCDE bundle addressed.
[2019-11-02] MEDS: ALBUMIN HUMAN 12.5 GM/50 ML RTUINJ IV SCH ×2 (11:01→21:39)
[2019-11-02] MEDS: FAMOTIDINE INJ/PF 20 MG/2 ML SDV IV SCH ×2 (11:04→17:45)
[2019-11-02] MEDS: FENTANYL CITRATE INJ/PF 100 MCG/2 ML AMPUL IV PRN ×2 (11:37→22:41)
[2019-11-02 13:16] LABS: PATH REVIEW PATHOLOGIST REVIEWED
[2019-11-02] MEDS ORDERED: CEFAZOLIN SODIUM 0.75 GM in DEXTROSE 5%-WATER 50 ML IV SCH (14:00)
--- NOTE | 2019-11-02 16:03 | Progress Note ---
Provider Note Provider Note: ID Telephone Consultation Note Asked to review patient's chart by pharmacy. Pt is not seen or examined. Per chart review, he is a 39 year old man with PMH including type I DM with multiple admissions for DKA, pancreatitis, depression, HLD and HTN who is admitted to [facility] after being found down at home with DKA. Upon admission, the patient was not able to supply history or ROS. On exam, he was noted to be thin, ill-appearing, in moderate distress, with no cardiac murmurs, dry oropharynx, no conjunctival injection. He required intubation and mechanical ventilation. He was also found to have EVE and sepsis due to MSSA bacteremia. Blood cultures drawn on 10/29 showed growth in 1 bottle of Enterococcus faecalis and MSSA in culture, although the latter was initially identified by PCR as MRSA. The other set of blood cultures drawn on 10/29 was positive for growth of MSSA as well in one bottle. Urine culture on 10/29 had >100,000 CFU MSSA. Imaging findings include CXR read as showing patchy infiltrates in the lower lobes TTE (good quality) did not show vegetations Empiric vancomycin and Zosyn has been de-escalated to cefazolin. Impression/Recommendations sepsis due to MSSA bacteremia - TTE was negative; no cardiac murmur noted. Source is presently unclear. - Repeat BCx from 11/01 are in process. - If the patient does not clear the bacteremia within 3-4 days of effective antimicrobial therapy, this would meet the definition of complicated Staph aureus bacteremia and necessitate 4 weeks duration of treatment (length of time starts from the date of negative blood cultures) - Regardless, unless there is an obvious drainable/removable source of infection and rapid clearance of bacteremia and return to normothermia in an immunologically normal host, I would favor approaching this as a complicated bacteremia. With community acquired Staph aureus bacteremia, there is a greater risk for occult sites of dissemination and increased risk of complications with shorter durations of treatment. Would aim for at least 4 weeks from date of negative blood cultures, assuming there are no metastatic sites of infection that are discovered during the course of his hospitalization to warrant a longer course - Remain vigilant for likely source (skin/soft tissue infection? abrasions?) and potential sites of dissemination (e.g. acutely inflammed joint would require arthrocentesis or back pain or spinal tenderness to palpation should be evaluated further with MRI if possible) - If renal function continues to improve and creatinine clearance increases to 30 or more, cefazolin dose should be increased to 2 grams q 8 hours IV. Bacteriuria with Staph aureus - Generally, urinary seeding from bacteremia is more common than the reverse with Staph aureus. Staph aureus is not a typical uropathogen; sometimes infection can originate from urinary tract in setting of indwelling catheter, but I did not see history that patient had a Bar prior to coming to hospital. Staph aureus can also be a cause of a prostate abscess, which would typically be apparent upon PORTIA with boggy tender prostate and imaging studies (ultrasound or CT scan), and this possibility may need to be considered in the patient's evaluation. Enterococcus faecalis in blood culture - Clinical significance of this result is unclear. The patient has an invasive bloodstream infection with a more virulent organism Staph aureus, and Enterococcus faecalis can be a cause of transient bacteremia or in some cases could represent contamination. If the patient is clinically stable/improving on treatment aimed at the more virulent organism, dedicated treatment is not necessarily required. Emmanuel Varghese MD [facility] pager [phone]
[2019-11-02] MEDS: LIPASE/PROTEASE/AMYLASE 1 CAP CAPSULE.DR PO SCH (17:44)
[2019-11-02] MEDS: CEFAZOLIN 1 GM/D5W RTU 1 GM/50 ML RTUPB IV SCH (17:44)
[2019-11-02] MEDS: PHARMACY COMMUNICATION ORDER MC SCH (17:45)
[2019-11-03] MEDS: INSULIN REG, HUMAN 100 UNIT/ML 3 ML VIAL (PYX) SUBCUT SCH ×6 (02:07→22:18)
[2019-11-03] MEDS: DEXTROSE 50%-WATER 25 GM/50 ML DISP.SYRIN IV PRN (02:10)
[2019-11-03] MEDS: RINGERS SOLUTION,LACTATED 1,000 ML IV PRN ×2 (02:13→13:14)
[2019-11-03] MEDS: CEFAZOLIN 1 GM/D5W RTU 1 GM/50 ML RTUPB IV SCH ×2 (05:52→17:53)
--- NOTE | 2019-11-03 08:34 | RADIOLOGY REPORT (SQ) ---
EXAM DESCRIPTION: CHEST SINGLE VIEW IMAGES COMPLETED DATE/TIME: 11/03/2019 6:03 am REASON FOR STUDY: f/u pneumonia COMPARISON: 11/01/2019 EXAM PARAMETERS: NUMBER OF VIEWS: One view. TECHNIQUE: Single frontal radiographic view of the chest acquired. RADIATION DOSE: NA LIMITATIONS: None. FINDINGS: LUNGS AND PLEURA: As on the previous examination, bilateral patchy areas of consolidation in the mid-lower lobes, slightly more so on the right. Very small bilateral pleural effusions. No pneumothorax. MEDIASTINUM AND HILAR STRUCTURES: No masses. Contour normal. HEART AND VASCULAR STRUCTURES: Heart normal in size. Normal vasculature. BONES: No acute findings. HARDWARE: Interval removal of endotracheal and nasogastric tubes. OTHER: No other significant finding. IMPRESSION: 1. Since the prior study dated 11/01/2019, interval removal of endotracheal and nasogast mayela tubes. 2. Persistent patchy areas of consolidation in the mid and lower lobes bilaterally, slightly more so on the right. Very small bilateral pleural effusions. TECHNICAL DOCUMENTATION: JOB ID: [id number] 2010 [employer]- All Rights Reserved Reading location - IP/workstation name: [email or web address]
[2019-11-03 09:07] LABS: ANION GAP 10 (5-19); BLOOD UREA NITROGEN 82 mg/dL (7-20); CALCIUM 7.2 mg/dL (8.4-10.2); CARBON DIOXIDE 19 mmol/L (22-30); CHLORIDE 114 mmol/L (98-107); GLUCOSE 74 mg/dL (75-110); POTASSIUM 3.4 mmol/L (3.6-5.0)
[2019-11-03 09:13] LABS: VANCOMYCIN,TROUGH 16.3 ug/mL (5.0-20.0)
[2019-11-03] MEDS: LIPASE/PROTEASE/AMYLASE 1 CAP CAPSULE.DR PO SCH ×2 (09:36→15:30)
[2019-11-03] MEDS: FAMOTIDINE INJ/PF 20 MG/2 ML SDV IV SCH ×2 (09:42→17:53)
[2019-11-03] MEDS: FENTANYL CITRATE INJ/PF 100 MCG/2 ML AMPUL IV PRN (11:31)
--- NOTE | 2019-11-03 12:26 | PDOC CRITICAL CARE PROG REPORT ---
General Date:: 11/03/19 ICU Day:: 4 Hospital Day:: 4 Resuscitation Status: Full Code Events in the past 12 to 24 Hours:: 10/30 The patient presented acutely ill. The main reason appears to henry DKA. There may be some other complications as well including sepsis and shock and pancreatitis. The patient was found on the ground poorly responsive in his feces. Drug screen was negative. His initial Blood sugar was over 1000. The patient was placed on an insulin drip. His urine looked infected so it was sent for culture and empiric abx theroay st arted. The patient was quite hypothermic on presentation He was placed on the Tyrell Hugger and HIS TEMP HAS RISEN. tHE PATIENT HAD TO be intubated for very obtunded mental status. His lipase came back elevated. He likely has pancreatitis. 10/31 The patient appears to be doing a little better. His blood sugar is better and he is off the insulin drip. His AG is now 13. he is on small dose of intermediate insulin and coverage. His renal fn. remains abnormal. We gave him a fair amount of fluid yesterday but creatinine remians about 3. Has received multiple doses of calcium for his low Ca++. When corrected for his low albumin irt is not really low or modestly so. he has grown out multiple + blood cultures with staph aureus and enterococcus the source unclear he did have a dirty urine on admission. I doid ask for an ECHO to r/o endocarditis and will send surveillance cultures in the near future as well. Hypothermia resolved. 11/01 the patient overall appears to be doing better. His blood sugar dropped overnight so I stopped his Lantus. he has been started on feeds. He is emaciated. his mother attributes it to his pancreatitis. I asked her what the etiology was but she was unsure. The patient reportedly has chronic diarrhea on the basis of this pancreatitis I am repeating his lipase. His CXR yesterday looked worse. He has bilateral lower lobe densities. Has been on Zosynand Vanco. I sent off request for sputum fungus and AFB. in addition, i requested HIV test for patient given his malnutrition and these infiltrates. I would like to extubate the patient today if possible. The patient haad multiple positive blood cultures for MRSA. He had an ECHO yesterday which did not suggest any evidence of a valvular vegetation. 11/02 DKA resolved. Blood sugars controlled. Lipase close to normal presently. There was some confusion originally concerning the patient's cultures. For reasons not completely understood theatient had 4 positve blood cultures for Staph aureus. The last of these was as late as yesterday. His ECHO was negative for endcarditis. The patient grew MRSA from his urine so it was not related. Despite the negative ECHO this persistent bacteremia regis qualify thepatient for penitentiary abx therapy ( at least 4 weeks). There does not appear to be a drainable source of infx. I would ordinarilyr CT chest/abdo/pelvis given the bacteremia but thepatient has songoing significant renal dysfn. Reason for ICU Addmission:: DKA Physical Exam Vital Signs: Temp Pulse Resp BP Pulse Ox 97.9 F 70 10 L 95/71 L 100 11/03/19 10:00 11/03/19 10:00 11/03/19 10:00 11/03/19 10:00 11/03/19 10:00 Intake & Output 11/02/19 11/03/19 11/04/19 06:59 06:59 06:59 Intake Total 2570 2960 Output Total 2170 2735 575 Balance 400 225 -575 Weight 55.1 kg 51.8 kg Weight/Height Weight 51.8 kg Height 5 ft 9 in General appearance: PRESENT: no acute distress Head exam: PRESENT: atraumatic, normocephalic Eye exam: PRESENT: EOMI, PERRLA. ABSENT: nystagmus, scleral icterus Neck exam: ABSENT: tenderness, thyromegaly Respiratory exam: PRESENT: clear to auscultation alfonso. ABSENT: prolonged expiratory phas Cardiovascular exam: PRESENT: RRR, +S1, +S2 Pulses: PRESENT: +2 pedal pulses bilateral GI/Abdominal exam: PRESENT: normal bowel sounds, soft Musculoskeletal exam: PRESENT: full ROM, normal inspection Neurological exam: PRESENT: awake, oriented to person, oriented to place, oriented to time Skin exam: PRESENT: normal color Laboratory/Radiographs Laboratory Results: 11/02/19 05:40 11/03/19 08:09 11/03/19 08:09 Sodium 142.8 Potassium 3.4 L Chloride 114 H Carbon Dioxide 19 L Anion Gap 10 BUN 82 H Creatinine 2.96 H Est GFR ( Amer) 29 L Glucose 74 L Calcium 7.2 L 11/02/19 10:36 Blood Blood Culture (PCR) - Final Staphylococcus Aureus 10/30/19 17:45 Blood Blood Culture (PCR) - Final Enterococcus Species Staphylococcus Aureus 10/30/19 17:45 Blood Blood Culture - Final Staphylococcus Aureus Enterococcus Faecalis(Group D) 11/01/19 17:40 Stool - Stool - Final 10/31/19 03:25 Bar Catheter Urine Culture - Final Mrsa (Meth Resis Staph Aureus) 10/30/19 18:00 Blood Blood Culture (PCR) - Final Staphylococcus Aureus 10/30/19 18:00 Blood Blood Culture - Final Staphylococcus Aureus 10/30/19 15:30 Catheterized Urine Urine Culture - Final Staphylococcus Aureus 10/30/19 10/30/19 14:51 16:46 Troponin I Cancelled < 0.012 Impressions: Chest X-Ray 11/03/19 07:00 IMPRESSION: 1. Since the prior study dated 11/01/2019, interval removal of endotracheal and nasogastric tubes. 2. Persistent patchy areas of consolidation in the mid and lower lobes bilaterally, slightly more so on the right. Very small bilateral pleural effusions. Assessment and Plan - Diagnosis (1) Diabetic ketoacidosis Qualifiers: Diabetes mellitus type: type 1 Diabetes mellitus complication detail: without coma Qualified Code(s): E10.10 - Type 1 diabetes mellitus with ketoacidosis without coma Is this a current diagnosis for this admission?: Yes Plan: The patient is on an insulin drip for DKA as per protocol. Last blood sugar in 250 range. Patient continues to have a significant AG. Patient was placed on a bicarb drip after not responding to insulin and massive fluid resuscitation. 10/31 DKA resolved. patient off the insulin drip. Blood sugars are in the low 200s. GAP is closing. 11/01 DKA resolved. dropped BS overnight. i stopped small dose of lantus. (2) Sepsis Qualifiers: Sepsis type: sepsis due to unspecified organism Sepsis acute organ dysfunction status: unspecified Qualified Code(s): A41.9 - Sepsis, unspecified organism Is this a current diagnosis for this admission?: Yes Plan: The patient is on Vancocin and Zosyn Given the finsding of MRSA and enterococcus we can likely stop Zosyn shortly. The patient remains on low dose nrepi at this time at 2 mcg/min. 11/01 the source of his sepsis unclear. he did have bilateral infiltrates and a suspicious urine on presentation. I am goiing rto send repeat blood cultures today. his ECHO as noted ws negative for endocarditis 11/02 The source of persistent bacteremia is unclear given the negative ECHO. I have request new culture tmorrow. The culkture of yesterday has already yielded growth despite multiple days of abx. I have ordered CRP and ESR. I have oredered a gallium scan. CT with withcontrast is an alternative bit clearly prohibited by his renal fn. (3) Abdominal pain Qualifiers: Abdominal location: generalized Qualified Code(s): R10.84 - Generalized abdominal pain Is this a current diagnosis for this admission?: Yes Plan: Unclear how much of his abdominal pain could be simp[ly related to DKA and/or an element of pancreatitis. 11/01 i am rpeating lipase test. His belly does not appear to be tender. No guarding or rigidity. (4) Acute kidney injury Is this a current diagnosis for this admission?: Yes Plan: As of the patient had a normal creatinine. When he presented to the hoospital it was already 3.94 but has started to trend down. danielle does remain a bit oliguric at this time. 10/31 Creatinine is better from the time of admission. Hopefully, will continue to trend down. he put out about 2 liters of urine in the past 24 hours. 11/01 His creatinine is a little better. Urine output > 2 liters last 24 hours. BUN tranding down albeit slowly. 11/02 The creatinine continues to hover in the 3 range. THe patient does have an excellenet output , howver. Unclear if his kidney fn. will return all the way back to normal at this time. (5) Acute on chronic pancreatitis Is this a current diagnosis for this admission?: Yes (6) Anemia Qualifiers: Anemia type: iron deficiency Iron deficiency anemia type: other iron deficiency Qualified Code(s): D50.8 - Other iron deficiency anemias Is this a current diagnosis for this admission?: Yes Plan: hb was alittle low onpresentation at 11.6. Looking back his Hb has vaciallted over thepast 1.5 years. Has been as low as 7.3 or as high as 12.6 (7) Pneumonitis Is this a current diagnosis for this admission?: Yes Plan: The patient has persistent infiltrates R> L in the midlung. The density on the right is fairly distinct and has coalesced. The patient is not coughing, nor short of breath. Will continue to folow.AFB and fugal culture ordered. Critical Time Critical Time (minutes): 25 Level of Care: ICU -: 1. The care of a critical patient is a dynamic process. This note is a unit support representative synopsis but static in nature. The timeframe for treatments given in order is not necessarily the actual time these treatments may have been done. 2. This patient requires critical care secondary to ongoing requirements for therapy not offered or safe outside the critical care environment. Transfer to a lower level of care will result in altered life or limb morbidity and mortality. 3. Multidisciplinary rounds completed. 4. ABCDE bundle addressed.
[2019-11-03] MEDS: ALBUTEROL SULFATE 0.083% NEB 2.5 MG/3 ML AMPUL NEB SCH ×3 (12:54→20:45)
[2019-11-03] MEDS ORDERED: ACETAMINOPHEN 325 MG TABLET PO PRN (14:46)
[2019-11-03] MEDS: TRAMADOL HCL 50 MG TABLET PO PRN ×2 (15:30→22:21)
--- NOTE | 2019-11-03 17:25 | Progress Note ---
Provider Note Provider Note: [facility] - Follow up telephone note Reviewed patient's chart. Pt not seen or examined. Interval events/results: Pt extubated, moved from ICU to floor. WBC count stable: trended down from 29k to 18k to 15k on 10/31 and 11/01. Creatinine down trended from 3.94 on 10/29 to 2.96 on 11/02. UCx from 10/30: >100k CFU of MRSA BCx from 11/01: MSSA from one blood cx bottle only, methicillin resistance gene not detected CXR from 11/02: patchy areas of consolidation in mid and lower lobes b/l Most recent documented physical exam by the patient's grape cutter notes no abnormal findings including lungs CTAB. Impression/Recommendations 39 year old man with DKA, MRSA colonization, complicated methicillin-susceptible Staph aureus bacteremia (MSSA), bacteriuria, EVE, and lung infiltrates MSSA bacteremia - Community acquired, no clear source at this point - BCx on 10/29 showed MSSA in one bottle of both sets. The set obtained at 17:45 on 10/29 had a PCR result that showed the presence of a methicillin resistance gene. However, phenotypically this was MSSA. The other set obtained at 18:00 on 10/29 did not have methicillin resistance gene detected by PCR and was phenotypically MSSA. These results are curious and difficult to explain, but it may be that the patient is colonized with both MSSA and MRSA. - choice of antibiotic: He clearly has invasive disease with a bloodstream infection due to MSSA, and the the most recent blood cultures on 11/01 also re-demonstrate only MSSA with no methicillin resistance gene detected. Vancomycin is inferior to cefazolin for the treatment of MSSA bacteremia. It is difficult to justify switching to vancomycin or daptomycin at this juncture in light of the above. - With no murmur and no vegetations seen on a good quality TTE, endocarditis appears unlikely at this point. - Would repeat blood cultures every 48 hours until clearance of the bacteremia is documented. - Continue cefazolin, renally dose adjusted. If renal function improves further and CrCl increases to 30 or more, IV cefazolin should be increased to 2 g q8h. - Would continue to evaluate the patient clinically for any probable sources of the Staph aureus bacteremia (e.g. skin infection, abrasions) or metastatic complications (such as septic arthritis if patient develops an new erythematous, edematous painful joint or pyogenic spondylodiscitis if back pain is worse or tenderness on palpation of bony spine is appreciated on exam). - Would plan on at least 4 weeks of treatment from the date of negative blood cultures, unless another site of infection is detected during his hospitalization to warrant longer - Would not place PICC or other termite inspector central line until there repeat blood cultures that are negative for 48h if not 72h Staph aureus bacteriuria - Staph aureus is not a typical uropathogen. Although it can be a cause of a UTI in patients who have indwelling urinary devices, I do not see from chart review that the patient has a Bar or suprapubic tube, etc, at home to account for this finding on admission. Source is likely from the blood rather than an ascendant urinary tract infection causing secondary bacteremia. - However, it should also be kept in mind that sometimes acute bacterial prostatitis and prostate abscess can be associated with Staph bacteremia. If the patient has acute bacterial prostatitis, on exam a tender boggy prostate would be expected. - Why there is a discrepancy between the initial urine culture and the subsequent urine culture (MSSA on 10/29 then MRSA on 10/30)? It may be that the original urine culture reflected seeding from the bacteremia with MSSA and that the second urine culture reflects colonization with MRSA facilitated in the presence of an indwelling Bar. If he does not require the Bar any longer, removal would be appropriate. Would not reculture the urine routinely or to check for clearance of the bacteriuria in absence of symptoms. mid/lower lobe bilateral pulmonary infiltrates - Etiology unknown. Possibilities include aspiration pneumonitis or pneumonia (was found down, encephalopathic), septic pulmonary emboli (less likely with no murmur and no vegetations seen on good quality TTE, although not entirely excluded), or Staph aureus pneumonia given presence of the bacteremia (typically more severe, necrotizing). I would favor the first possibility of this being related to aspiration. - Pt has been successfully extubated, was noted to have clear lungs, not tachypn eic, unlabored breathing, O2 sats 97-98 on room air. Quicker resolution of symptoms suggests that pneumonitis rather than nba pneumonia may be likely. Radiographic abnormalities in either case tend to persist after clinical improvement. There does not seem to be clear ongoing need for broader spectrum antibiotics based on what is available to me by chart review. Emmanuel Varghese MD [facility] Infectious Diseases pager [phone]
--- NOTE | 2019-11-03 17:31 | RADIOLOGY REPORT (SQ) ---
EXAM DESCRIPTION: CT CHEST WITHOUT IMAGES COMPLETED DATE/TIME: 11/03/2019 5:01 pm REASON FOR STUDY: chest pain, MRSA bacteremia COMPARISON: Chest films 11/03/2019, 11/01/2019 10/31/2019 10/30/2019 TECHNIQUE: CT scan performed of the chest without intravenous contrast. Images reviewed with lung, soft tissue and bone windows. Reconstructed coronal and sagittal MPR images reviewed. All images st ored on PACS. All CT scanners at this facility use dose modulation, iterative reconstruction, and/or weight based d osing when appropriate to reduce radiation dose to as low as reasonably achievable (ALARA). [facility]: Dose Right [facility]: CareDose [facility]: Dose Right [facility]: Teradose 4D [facility]: [employer] RADIATION DOSE: CT Rad equipment meets quality standard of care and radiation dose reduction techniq ues were employed. CTDIvol: 5.4 mGy. DLP: 209 mGy-cm. mGy. LIMITATIONS: No technical limitations. FINDINGS: LUNGS AND PLEURA: Very dense consolidation is present throughout the bilateral lower lobes and lateral segment right middle lobe. This is worrisome for pneumonia, and more prominent than on 10/30/2019. Multifocal small cavitary infiltrates/nodules are present in the bilateral upper lobes and lateral as pect left lower lobe, worrisome for septic emboli. No pneumothorax. Trace bilateral pleural effusions right greater than left. HILAR AND MEDIASTINAL STRUCTURES: No identified masses or abnormal nodes. No obvious aneurysm. HEART AND VASCULAR STRUCTURES: No aneurysm. No pericardial effusion. UPPER ABDOMEN: Small amount of ascites in the upper abdomen. Calcified pancreas from old pancreatiti s THYROID AND OTHER SOFT TISSUES: No masses. No adenopathy. BONES: No significant finding. HARDWARE: None in the chest. OTHER: No other significant findings. IMPRESSION: Dense consolidation in the bilateral lower lobes worrisome for pneumonia. Multiple smaller ill-defined cavitary infiltrate/nodules in the upper lobes worrisome for septic embo li Trace bilateral pleural effusions Upper abdominal ascites. Calcified pancreas from old pancreatitis TECHNICAL DOCUMENTATION: JOB ID: [id number] Quality ID # [id number]: Final reports with documentation of one or more dose reduction techniques (e.g., Au tomated exposure control, adjustment of the mA and/or kV according to patient size, use of iterative reconstruction technique) 2010 [employer]- All Rights Reserved Reading location - IP/workstation name: [email or web address]
[2019-11-03 18:40] LABS: AMORPHOUS SEDIMENT,URINE TRACE /HPF; APPEARANCE,URINE CLOUDY; BILIRUBIN,URINE NEGATIVE (NEGATIVE); COLOR,URINE YELLOW; GLUCOSE, URINE NEGATIVE (NEGATIVE); KETONES,URINE NEGATIVE (NEGATIVE); LEUKOCYTE ESTERASE,URINE LARGE (NEGATIVE); NITRITE,URINE NEGATIVE (NEGATIVE); PROTEIN,URINE 30 mg/dL (NEGATIVE); URINE SPECIFIC GRAVITY 1.011; UROBILINOGEN,URINE NEGATIVE mg/dL (<2.0)
[2019-11-03 18:46] LABS: UR PRO/CREAT RATIO RESULT 1.3 mg/mg (0.0-0.2); URINE PROTEIN 40.8 mg/dL (<12)
--- NOTE | 2019-11-03 18:49 | PDOC PROGRESS REPORT ---
Subjective Progress Note for:: 11/03/19 Subjective:: The patient is a 39-year-old male with a past medical history significant for hypertension, hyperlipidemia insulin-dependent diabetes mellitus, numerous admissions for DKA, GERD, chronic pancreatitis, depression, substance abuse (THC and cocaine; no known IV drug use), and medical noncompliance who is well-known to the hospitalist service. Although, patient has only been admitted one prior time in the last year when previously he was admitted on a near monthly basis for DKA. Patient has had a significant weight loss in that period; ~17 kg/1 year. Pt was admitted 10/31/19 by the sheet metal layout mechanic service for DKA requiring intubation. He was extubated 11/01/2021 room air. He is downgraded to IMCU and transfer to the hospitalist service 11/03/2019. Patient was not seen or examined by myself today; was seen prior to downgrade by the sheet metal layout mechanic, Dr. Gil. History obtained and plan of care developed through in-depth chart review. Reason For Visit: DKA Physical Exam Vital Signs: Temp Pulse Resp BP Pulse Ox 97.1 F 77 14 97/62 L 97 11/03/19 15:02 11/03/19 16:34 11/03/19 16:34 11/03/19 15:02 11/03/19 16:34 Intake & Output 11/02/19 11/03/19 11/04/19 06:59 06:59 06:59 Intake Total 2570 2960 1000 Output Total 2170 2735 860 Balance 400 225 140 Weight 55.1 kg 51.8 kg 51.8 kg Results Laboratory Results: 11/02/19 05:40 11/03/19 08:09 11/03/19 08:09 Sodium 142.8 Potassium 3.4 L Chloride 114 H Carbon Dioxide 19 L Anion Gap 10 BUN 82 H Creatinine 2.96 H Est GFR ( Amer) 29 L Glucose 74 L Calcium 7.2 L 11/02/19 10:36 Blood Blood Culture (PCR) - Final Staphylococcus Aureus 10/30/19 17:45 Blood Blood Culture (PCR) - Final Enterococcus Species Staphylococcus Aureus 10/30/19 17:45 Blood Blood Culture - Final Staphylococcus Aureus Enterococcus Faecalis(Group D) 11/01/19 17:40 Stool - Stool - Final 10/31/19 03:25 Bar Catheter Urine Culture - Final Mrsa (Meth Resis Staph Aureus) 10/30/19 10/30/19 14:51 16:46 Troponin I Cancelled < 0.012 Impressions: Chest CT 11/03/19 00:00 IMPRESSION: Dense consolidation in the bilateral lower lobes worrisome for pneumonia. Multiple smaller ill-defined cavitary infiltrate/nodules in the upper lobes worrisome for septic emboli Trace bilateral pleural effusions Upper abdominal ascites. Calcified pancreas from old pancreatitis Chest X-Ray 11/03/19 07:00 IMPRESSION: 1. Since the prior study dated 11/01/2019, interval removal of endotracheal and nasogastric tubes. 2. Persistent patchy areas of consolidation in the mid and lower lobes bilaterally, slightly more so on the right. Very small bilateral pleural effusions. Assessment and Plan - Diagnosis (1) Bacteremia Is this a current diagnosis for this admission?: Yes Plan: Blood culture (10/30/19; 1 bottle each set) MSSA and Enterococcus faecalis Urine culture (10/30/19) MSSA Urine culture (10/31/19) MRSA Blood culture (11/02/19; 1/4 bottles) MSSA and Enterococcus faecalis TTE negative for vegitations CXR (10/29) RML PNA CT Chest (11/02) very dense consolidation throughout bilateral lower lobes and lateral segment of right middle lobe worrisome for pneumonia. More prominent than 10/29. Multifocal small cavity infiltrates/nodules present to the bilateral upper lobes and lateral aspect of the left lower lobe worrisome for septic emboli. CLOVER pending. Infectious disease is consulted. Continue Cefazolin; minimum 4 weeks from negative cultures. Will repeat BCx q48h until clear. (2) Acute kidney injury Is this a current diagnosis for this admission?: Yes Plan: Cr 2.86/BUN 82; imnproved from earlier this admission. Cr 3.94/BUN 135 on arrival. Baseline Cr 0.9/BUN 14 Adequate urine output; ~2L daily Renal/aorta U/S pending Nephrology is consulted; appreciate Dr. Bazzi's assistance. Avoid nephrotoxic medications as able; renally dose when appropriate. Continue gentle IVF Strict I&Os Daily weights (3) Severe protein-calorie malnutrition Is this a current diagnosis for this admission?: Yes Plan: BMI 16.9 Loss of subcutaneous fat/muscle mass ~17 kg weight loss over last year. customer service advocate is consulted. Consider Remeron/Megace/Marinol for appetite stimulation. 24 hour Calorie count requested (4) Pneumonitis Is this a current diagnosis for this admission?: Yes Plan: The patient has persistent infiltrates R> L in the midlung. The density on the right is fairly distinct and has coalesced. The patient is not coughing, nor short of breath. CT Chest today more concerning for pneumonia with septic emboli. Cultures and antibiotics as above. (5) Sepsis Qualifiers: Sepsis type: sepsis due to unspecified organism Sepsis acute organ dysfunction status: unspecified Qualified Code(s): A41.9 - Sepsis, unspecified organism Is this a current diagnosis for this admission?: Yes Plan: Resolved. Secondary to pneumonia and bacteremia Initially on Vancocin and Zosyn Transitioned to Cefazolin Infectious disease consulted. Cultures and antibiotics as above. (6) Abdominal pain Qualifiers: Abdominal location: generalized Qualified Code(s): R10.84 - Generalized abdominal pain Is this a current diagnosis for this admission?: Yes Plan: Improved. Unclear how much of his abdominal pain could be simply related to DKA and/or an element of pancreatitis. Lipase trending down; 1749-> 316 Tolerating regular diet. (7) Polysubstance abuse Is this a current diagnosis for this admission?: Yes Plan: History THC and Cocain use. No known IVDU UDS this admission negative. (8) Diabetic ketoacidosis Qualifiers: Diabetes mellitus type: type 1 Diabetes mellitus complication detail: without coma Qualified Code(s): E10.10 - Type 1 diabetes mellitus with ketoacidosis without coma Is this a current diagnosis for this admission?: Yes Plan: DKA is resolved. No advanced to Consistent Carb diet. Humalog for sliding scale coverage. (9) Acute on chronic pancreatitis Is this a current diagnosis for this admission?: Yes Plan: Acute episode is resolved. Lipase trending down; 1749-> 316 Tolerating regular diet. - Time Time Spent with patient: 25-34 minutes Medications reviewed and adjusted accordingly: Yes Anticipated Discharge Disposition: undetermined Anticipated Discharge Timeframe: undetermined
[2019-11-03] MEDS: ACETYLCYSTEINE 20% SOLN 800 MG/4 ML VIAL.NEB NEB SCH (20:45)
[2019-11-03] MEDS: GUAIFENESIN 600 MG TABLET.SA PO SCH (22:21)
--- NOTE | 2019-11-04 00:16 | PDOC CONSULTATION ---
Consultation Consult Date: 11/03/19 Provider Consulted: CHERRY PA Consult reason:: EVE History of Present Illness Admission Date/PCP: 10/30/19 20:07 History of Present Illness: CHESTER MCKEON is a 39 year old male with history of type 1 diabetes mellitus, pancreatitis and hyperlipidemia who was admitted on 10/30/2019 after being found unresponsive. Patient with that was diagnosed with DKA presenting with elevated blood sugar of 1037 and bicarb of 6. Patient also had initial hyponatremia sodium of 120.4 which is currently resolved. He also presented with elevated BUN of 135 and creatinine of 3.94. His baseline kidney function in September 2019 showed a BUN of 11 and creatinine of 0.93. Patient was admitted and treated in the ICU and required mechanical ventilation. Patient was also found to have bacteremia secondary to staph aureus and enterococcus urinary tract infection secondary to MRSA. Patient was treated with vancomycin of which current vancomycin trough level was 16.3. Currently he is still on IV cefazolin. Patient is in DKA improved significantly, and patient was extubated yesterday. Patient was then downgraded here in IMCU. Today the patient complained of chest pains and upper back pain which just started today associated with some shortness of breath productive of some greenish phlegm. He admits poor appetite and has had significant weight loss about 40 pounds for the last few months. He admits that he is not able to eat due to decreased appetite and difficulty swallowing. He denies any nausea and vomiting. He admits to abdominal pain. In terms of kidney function the patient now has a BUN of 82, creatinine of 2.96 with EGFR of 29. Is mildly hypokalemic and currently has hyperchloremic metabolic acidosis. He reported some leg swelling. Patient denies any known kidney issues in the past. He denies any history of NSAID use, kidney stones or hepatitis. He denies any known proteinuria. He is making urine output anywhere between 1600 to 2 L daily. He remains to be relatively hypotensive with systolic blood pressure between 80 to 90s. His weight is a slightly increased from admission from 47.3 to 51.8 kg. Past Medical History Cardiac Medical History: Reports: Hyperlipidemia Pulmonary Medical History: Endocrine Medical History: Reports: Diabetes Mellitus Type 1 - Diagnosed 2010 GI Medical History: Reports: Gastroesophageal Reflux Disease, Other - Pancreatitis Psychiatric Medical History: Reports: Depression Infectious Medical History: Reports: Methicillin-resist Staph Aureus Past Surgical History Past Surgical History: Reports: Orthopedic Surgery - back, left long finger PIP disarticulation, right hand I&D Social History Information Source: Patient Lives with: Alone Smoking Status: Current Every Day Smoker Electronic Cigarette use?: No Frequency of Alcohol Use: None Hx Recreational Drug Use: Yes - Last used 2 months ago. Drugs: Cocaine, Marijuana Hx Prescription Drug Abuse: No - Advance Directive Resuscitation Status: Full Code Family History Family History: DM - Father, Hypertension - Mother Parental Family History Reviewed: Yes Children Family History Reviewed: NA Sibling(s) Family History Reviewed.: Yes Medication/Allergy Home Medications: Insulin Aspart [Novolog Flexpen] 0 unit SUBCUT .SLD SCALE 09/26/19 Insulin Glargine,Hum.rec.anlog [Lantus Insulin 100 Unit/1 ml 10 ml] 25 unit SQ Q12 09/26/19 Lipase/Protease/Amylase [Nate Rodríguez 36,000 Units Capsule] 1 cap PO .SNACKS 09/26/19 Lipase/Protease/Amylase [Nate Rodríguez 36,000 Units Capsule] 1 cap PO AC 09/26/19 Insulin Lispro [Humalog Insulin (Lispro) 100 unit/mL] 5 unit SUBCUT AC #10 vial 09/30/19 Metoclopramide HCl [Reglan] 5 mg PO MEALS #90 tablet 09/30/19 Multivitamin [Tab-A-Ever (Multiple Vitamin) Tablet] 1 tab PO DAILY #30 tablet 09/30/19 Allergies/Adverse Reactions: ondansetron [From Zofran (as hydrochloride)] Allergy (Severe, Verified 10/30/19 18:44) Difficulty breathing Review of Systems All systems: reviewed and no additional remarkable complaints except as stated Review of Systems: Constitutional: ABSENT: chills, fatigue, fever(s), headache(s), weight gain; confirms significant weight loss and poor appetite Eyes: ABSENT: visual disturbances Ears: ABSENT: hearing changes Cardiovascular: ABSENT: dyspnea on exertion, edema, orthropnea, palpitations; reports chest pain Respiratory: ABSENT: hemoptysis; admits cough and shortness of breath Gastrointestinal: ABSENT: constipation, hematemesis, hematochezia, nausea, vomiting; admits abdominal pain and diarrhea Genitourinary: ABSENT: dysuria, hematuria Musculoskeletal: ABSENT: joint swelling Integumentary: ABSENT: rash, wounds Neurological: ABSENT: abnormal gait, abnormal speech, confusion, dizziness, focal weakness, numbness, syncope Psychiatric: ABSENT: anxiety, depression Endocrine: ABSENT: cold intolerance, heat intolerance, polydipsia, polyuria Hematologic/Lymphatic: ABSENT: easy bleeding, easy bruising, lymphadenopathy Physical Exam Vital Signs: Temp Pulse Resp BP Pulse Ox 97.1 F 80 18 97/62 L 98 11/03/19 15:02 11/03/19 15:02 11/03/19 15:02 11/03/19 15:02 11/03/19 15:02 Intake & Output 11/02/19 11/03/19 11/04/19 06:59 06:59 06:59 Intake Total 2570 2960 1000 Output Total 2170 2735 860 Balance 400 225 140 Weight 55.1 kg 51.8 kg 51.8 kg Exam: General appearance: No acute distress, cooperative, cachectic Head exam: PRESENT: atraumatic, normocephalic Eye exam: PRESENT: Conjunctiva pale, EOMI, PERRLA. ABSENT: conjunctival injection, scleral icterus Mouth exam: PRESENT: moist, neck supple, tongue midline Neck exam: PRESENT: full ROM. ABSENT: carotid bruit, JVD, lymphadenopathy, thyromegaly Respiratory exam: PRESENT: Diminished to auscultation bilaterally. ABSENT: rales, rhonchi, stridor, wheezes Cardiovascular exam: PRESENT: RRR, +S1, +S2. ABSENT: systolic murmur Pulses: PRESENT: normal radial pulses, normal dorsalis pedis pulses GI/Abdominal exam: PRESENT: normal bowel sounds, soft. Positive upper abdominal tenderness ABSENT: guarding, mass Rectal exam: Deferred Extremities exam: PRESENT: full ROM. ABSENT: calf tenderness, pedal edema Musculoskeletal: PRESENT: full ROM. ABSENT: deformity Neurological exam: PRESENT: alert, Awake, Oriented to person, Oriented to place, Oriented to time, reflexes normal, CN II-XII grossly intact. ABSENT: motor sensory deficit Psychiatric exam: PRESENT: appropriate affect, normal mood. ABSENT: homicidal ideation, suicidal ideation Skin exam: PRESENT: intact, dry, warm. ABSENT: rash Results Laboratory Results: 11/02/19 05:40 11/03/19 08:09 11/03/19 08:09 Sodium 142.8 Potassium 3.4 L Chloride 114 H Carbon Dioxide 19 L Anion Gap 10 BUN 82 H Creatinine 2.96 H Est GFR ( Amer) 29 L Glucose 74 L Calcium 7.2 L 11/02/19 10:36 Blood Blood Culture (PCR) - Final Staphylococcus Aureus 10/30/19 17:45 Blood Blood Culture (PCR) - Final Enterococcus Species Staphylococcus Aureus 10/30/19 17:45 Blood Blood Culture - Final Staphylococcus Aureus Enterococcus Faecalis(Group D) 11/01/19 17:40 Stool - Stool - Final 10/31/19 03:25 Bar Catheter Urine Culture - Final Mrsa (Meth Resis Staph Aureus) 10/30/19 10/30/19 14:51 16:46 Troponin I Cancelled < 0.012 Impressions: Chest X-Ray 11/03/19 07:00 IMPRESSION: 1. Since the prior study dated 11/01/2019, interval removal of endotracheal and nasogastric tubes. 2. Persistent patchy areas of consolidation in the mid and lower lobes bilaterally, slightly more so on the right. Very small bilateral pleural effusions. Assessment & Plan - Diagnosis (1) Acute kidney injury Is this a current diagnosis for this admission?: Yes Plan: Currently nonoliguric. Multifactorial causes secondary to initial DKA, hypotension, sepsis. Patient appears to have some proteinuria which would i ndicate an underlying microvascular disease patient with diabetes. Patient creatinine was 0.93 in September 2019. Admitting creatinine was 3.94 currently improved to 2.96. Patient does not require any renal replacement therapy. Continue treatment of acute conditions including bacteremia and maintain euvolemia. Monitor kidney function and urine output. Check kidney ultrasound for baseline. Repeat urinalysis and check urine protein to creatinine ratio. (2) Hypotension Is this a current diagnosis for this admission?: Yes Plan: Patient's blood pressure may be appropriate for his body size. I would think that systolic blood pressure of 90 and above would be appropriate for patient. (3) Weight loss Is this a current diagnosis for this admission?: Yes Plan: This is associated with appetite loss with concomitant abdominal pain and diarrhea likely due to underlying chronic pancreatitis. However needs to rule out other causes of unintentional weight loss including malignancy. Primary service is working the patient up for this. (4) Bacteremia Is this a current diagnosis for this admission?: Yes Plan: Positive for enterococcus and MSSA treated with vancomycin and currently on IV cefazolin. (5) Sepsis Qualifiers: Sepsis type: sepsis due to unspecified organism Sepsis acute organ dysfunction status: unspecified Qualified Code(s): A41.9 - Sepsis, unspecified organism Is this a current diagnosis for this admission?: Yes (6) MRSA (methicillin resistant Staphylococcus aureus) infection Is this a current diagnosis for this admission?: Yes Plan: Treated with vancomycin. (7) Abdominal pain Qualifiers: Abdominal location: generalized Qualified Code(s): R10.84 - Generalized abdominal pain Is this a current diagnosis for this admission?: Yes (8) Diabetic ketoacidosis Qualifiers: Diabetes mellitus type: type 1 Diabetes mellitus complication detail: without coma Qualified Code(s): E10.10 - Type 1 diabetes mellitus with ketoacidosis without coma Is this a current diagnosis for this admission?: Yes Plan: Resolving. Now with hyperchloremic metabolic acidosis as expected in the course of DKA. (9) Acute on chronic pancreatitis Is this a current diagnosis for this admission?: Yes (10) Anemia Qualifiers: Anemia type: iron deficiency Iron deficiency anemia type: other iron deficiency Qualified Code(s): D50.8 - Other iron deficiency anemias Is this a current diagnosis for this admission?: Yes (11) DM hyperosmolarity type I Qualifiers: Diabetes mellitus complication detail: without coma Qualified Code(s): E10.69 - Type 1 diabetes mellitus with other specified complication Is this a current diagnosis for this admission?: Yes (12) Hypokalemia Is this a current diagnosis for this admission?: Yes Plan: Replace as necessary. (13) Hyponatremia Is this a current diagnosis for this admission?: Yes Plan: Resolved. - Notes Notes: Thank you very much for this consultation. Discussed with LLII Casey.
[2019-11-04] MEDS: INSULIN REG, HUMAN 100 UNIT/ML 3 ML VIAL (PYX) SUBCUT SCH ×5 (02:46→21:22)
[2019-11-04] MEDS: RINGERS SOLUTION,LACTATED 1,000 ML IV PRN ×2 (05:37→17:55)
[2019-11-04] MEDS: CEFAZOLIN 1 GM/D5W RTU 1 GM/50 ML RTUPB IV SCH ×2 (05:37→17:55)
[2019-11-04] MEDS: TRAMADOL HCL 50 MG TABLET PO PRN (05:42)
[2019-11-04] MEDS: ACETYLCYSTEINE 20% SOLN 800 MG/4 ML VIAL.NEB NEB SCH (08:02)
[2019-11-04] MEDS: ALBUTEROL SULFATE 0.083% NEB 2.5 MG/3 ML AMPUL NEB SCH ×2 (08:02→12:39)
--- NOTE | 2019-11-04 08:10 | RADIOLOGY REPORT (SQ) ---
EXAM DESCRIPTION: U/S RETROPERITON (RENAL/AORTA) IMAGES COMPLETED DATE/TIME: 11/03/2019 11:21 pm REASON FOR STUDY: EVE COMPARISON: 04/15/2016. TECHNIQUE: Dynamic and static grayscale images acquired of the kidneys and bladder and recorded on P ACS. Additional selected color Doppler and spectral images recorded. LIMITATIONS: None. FINDINGS: RIGHT KIDNEY: Normal size. Increased cortical echogenicity. No solid or suspicious masses. No hydronephrosis. No calcifications. LEFT KIDNEY: Normal size. Increased cortical echogenicity. No solid or suspicious masses. No hydrone phrosis. 1.3 cm calculus. BLADDER: Catheter in the bladder. OTHER: Stones/ sludge in the gallbladder. IMPRESSION: 1. CHRONIC MEDICAL RENAL DISEASE. CALCULUS IN THE LEFT KIDNEY. NO HYDRONEPHROSIS. 2. STONES/SLUDGE IN THE GALLBLADDER. TECHNICAL DOCUMENTATION: JOB ID: [id number] 2010 [employer]- All Rights Reserved Reading location - IP/workstation name: [email or web address]
[2019-11-04] MEDS: LIPASE/PROTEASE/AMYLASE 1 CAP CAPSULE.DR PO SCH ×2 (08:49→17:58)
[2019-11-04] MEDS: LACTOBACILLUS ACIDOPHILUS 250 MG TAB PO SCH ×2 (10:33→17:58)
[2019-11-04] MEDS: GUAIFENESIN 600 MG TABLET.SA PO SCH (10:33)
[2019-11-04] MEDS: FAMOTIDINE INJ/PF 20 MG/2 ML SDV IV SCH ×2 (10:33→17:58)
[2019-11-04] MEDS: OXYCODONE-ACETAMINOPHEN 5-325 MG TABLET PO PRN ×2 (10:39→19:52)
[2019-11-04 11:09] LABS: HEMATOCRIT 23.7 % (37.9-51.0); MEAN CORPUSCULAR HEMOGLOBIN 26.9 pg (27.0-33.4); MEAN CORPUSCULAR HGB CONC 33.3 g/dL (32.0-36.0); MEAN CORPUSCULAR VOLUME 81 fl (80-97); RED BLOOD COUNT 2.93 10^6/uL (4.35-5.55); RED CELL DISTRIBUTION WIDTH 19.9 % (11.5-14.0); WHITE BLOOD COUNT 8.2 10^3/uL (4.0-10.5)
[2019-11-04 11:46] LABS: HEMOGLOBIN 7.9 g/dL (13.5-17.0); PLATELET COUNT 51 10^3/uL (150-450)
[2019-11-04] MEDS ORDERED: ALBUTEROL SULFATE 0.083% NEB 2.5 MG/3 ML AMPUL NEB PRN (14:31)
--- NOTE | 2019-11-04 17:06 | PDOC PROGRESS REPORT ---
Subjective Progress Note for:: 11/04/19 Subjective:: The patient is a 39-year-old male with a past medical history significant for hypertension, hyperlipidemia insulin-dependent diabetes mellitus, numerous admissions for DKA, GERD, chronic pancreatitis, depression, substance abuse (THC and cocaine; no known IV drug use), and medical noncompliance who is well-known to the hospitalist service. Although, patient has only been admitted one prior time in the last year when previously he was admitted on a near monthly basis for DKA. Patient has had a significant weight loss in that period; ~17 kg/1 year. Pt was admitted 10/31/19 by the custodian manager service for DKA requiring intubation. He was extubated 11/01/2021 room air. He is downgraded to IMCU and transfer to the hospitalist service 11/03/2019. Patient was seen on morning rounds. He was found resting in bed, comfortable, on room air. He is A&Ox4 and remembers me from >1 year ago. He reports back and chest discomfort with inspiration, sudden movements, and cough. He denies abdominal pain, nausea, and vomiting at present. He reports that he has had poor p.o intake x1 year due to decreased appetite, early satiety, and frequent abdominal discomfort and diarrhea associated with meals. He states he is in unable to follow-up with a laboratory asst due to uninsured status. He tells me that [facility] and this has been very helpful with regard to his insulin needs. We discussed his bacteremia, CT results concerning for septic emboli, and the continued concern for endocarditis. All questions answered. He denies fever, chills, palpitations, dyspnea, cough. TMax 100.3; did require warming overnight r/t temp 93.1 (oral) No concerns per nursing. Reason For Visit: DKA Physical Exam Vital Signs: Temp Pulse Resp BP Pulse Ox 97.5 F 73 14 86/52 L 98 11/04/19 10:00 11/04/19 14:00 11/04/19 12:39 11/04/19 11:13 11/04/19 12:39 Intake & Output 11/03/19 11/04/19 11/05/19 06:59 06:59 06:59 Intake Total 2960 2800 500 Output Total 2735 2360 600 Balance 225 440 -100 Weight 51.8 kg 57.1 kg General appearance: PRESENT: no acute distress, cooperative, thin - Cachectic, well-developed Head exam: PRESENT: atraumatic, normocephalic Eye exam: PRESENT: conjunctiva pink, EOMI, PERRLA. ABSENT: scleral icterus Mouth exam: PRESENT: moist, tongue midline Teeth exam: PRESENT: poor dentation Respiratory exam: PRESENT: clear to auscultation alfnoso, decreased breath sounds - Bibasilar, symmetrical, unlabored. ABSENT: rales, rhonchi, wheezes Cardiovascular exam: PRESENT: RRR. ABSENT: diastolic murmur, rubs, systolic m urmur Vascular exam: PRESENT: normal capillary refill GI/Abdominal exam: PRESENT: normal bowel sounds, soft. ABSENT: distended, guarding, mass, organolmegaly, rebound, tenderness Rectal exam: PRESENT: deferred, other - FMS Extremities exam: PRESENT: full ROM. ABSENT: calf tenderness, clubbing, pedal edema Neurological exam: PRESENT: alert, awake, oriented to person, oriented to place, oriented to time, oriented to situation, CN II-XII grossly intact. ABSENT: motor sensory deficit Psychiatric exam: PRESENT: appropriate affect, normal mood. ABSENT: homicidal ideation, suicidal ideation Skin exam: PRESENT: dry, intact, warm. ABSENT: cyanosis, rash Results Laboratory Results: 11/04/19 09:35 11/03/19 08:09 11/03/19 11/04/19 11/04/19 18:00 06:30 09:35 WBC 8.2 RBC 2.93 L Hgb 7.9 L Hct 23.7 L MCV 81 MCH 26.9 L MCHC 33.3 RDW 19.9 H Plt Count 51 L C-Reactive Protein 84.8 H Urine Color YELLOW Urine Appearance CLOUDY Urine pH 5.0 Ur Specific [place] 1.011 Urine Protein 30 H Urine Glucose (UA) NEGATIVE Urine Ketones NEGATIVE Urine Blood MODERATE H Urine Nitrite NEGATIVE Ur Leukocyte Esterase LARGE H Urine WBC (Auto) 76 Urine RBC (Auto) 6 11/01/19 17:40 Stool - Stool - Final 11/01/19 17:40 Stool - Stool Stool Culture - Final C.albicans/C.dubliniensis 11/02/19 10:36 Blood Blood Culture (PCR) - Final Staphylococcus Aureus 11/02/19 10:36 Blood Blood Culture - Final Staphylococcus Aureus 10/30/19 10/30/19 14:51 16:46 Troponin I Cancelled < 0.012 Impressions: Chest CT 11/03/19 00:00 IMPRESSION: Dense consolidation in the bilateral lower lobes worrisome for pneumonia. Multiple smaller ill-defined cavitary infiltrate/nodules in the upper lobes worrisome for septic emboli Trace bilateral pleural effusions Upper abdominal ascites. Calcified pancreas from old pancreatitis Renal Ultrasound 11/03/19 00:00 IMPRESSION: 1. CHRONIC MEDICAL RENAL DISEASE. CALCULUS IN THE LEFT KIDNEY. NO HYDRONEPHROSIS. 2. STONES/SLUDGE IN THE GALLBLADDER. Chest X-Ray 11/03/19 07:00 IMPRESSION: 1. Since the prior study dated 11/01/2019, interval removal of endotracheal and nasogastric tubes. 2. Persistent patchy areas of consolidation in the mid and lower lobes bilaterally, slightly more so on the right. Very small bilateral pleural effusions. Assessment and Plan - Diagnosis (1) Bacteremia Is this a current diagnosis for this admission?: Yes Plan: Blood culture (10/30/19; 1 bottle each set) MSSA and Enterococcus faecalis Urine culture (10/30/19) MSSA Urine culture (10/31/19) MRSA Blood culture (11/02/19; 1/4 bottles) MSSA and Enterococcus faecalis TTE negative for vegitations CXR (10/29) RML PNA CT Chest (11/02) very dense consolidation throughout bilateral lower lobes and lateral segment of right middle lobe worrisome for pneumonia. More prominent than 10/29. Multifocal small cavity infiltrates/nodules present to the bilateral upper lobes and lateral aspect of the left lower lobe worrisome for septic emboli. CLOVER pending. Infectious disease is consulted. Continue Cefazolin; minimum 4 weeks from negative cultures. Will repeat BCx q48h until clear. (2) Acute kidney injury Is this a current diagnosis for this admission?: Yes Plan: Cr 2.86/BUN 82; imnproved from earlier this admission. Cr 3.94/BUN 135 on arrival. Baseline Cr 0.9/BUN 14 Adequate urine output; ~2L daily Renal/aorta U/S pending Nephrology is consulted; appreciate Dr. Bazzi's assistance. Avoid nephrotoxic medications as able; renally dose when appropriate. Continue gentle IVF Strict I&Os Daily weights (3) Severe protein-calorie malnutrition Is this a current diagnosis for this admission?: Yes Plan: BMI 18.6 Loss of subcutaneous fat/muscle mass ~17 kg weight loss over last year. experimental physicist is consulted. Consider Remeron/Megace/Marinol for appetite stimulation. 24 hour Calorie count ongoing (4) Pneumonitis Is this a current diagnosis for this admission?: Yes Plan: The patient has persistent infiltrates R> L in the midlung. The density on the right is fairly distinct and has coalesced. The patient is not coughing, nor short of breath. CT Chest today more concerning for pneumonia with septic emboli. Cultures and antibiotics as above. (5) Sepsis Qualifiers: Sepsis type: sepsis due to unspecified organism Sepsis acute organ dysfunction status: unspecified Qualified Code(s): A41.9 - Sepsis, unspecified organism Is this a current diagnosis for this admission?: Yes Plan: Resolved. Secondary to pneumonia and bacteremia Initially on Vancocin and Zosyn Transitioned to Cefazolin Infectious disease consulted. Cultures and antibiotics as above. (6) Abdominal pain Qualifiers: Abdominal location: generalized Qualified Code(s): R10.84 - Generalized abdominal pain Is this a current diagnosis for this admission?: Yes Plan: Denied abdominal discomfort today. Patient seen while eating breakfast. Unclear how much of his abdominal pain could be simply related to DKA and/or an element of pancreatitis. Lipase trending down; 1749-> 316 Tolerating regular diet. (7) Polysubstance abuse Is this a current diagnosis for this admission?: Yes Plan: History THC and Cocain use. No known IVDU UDS this admission negative. (8) Diabetic ketoacidosis Qualifiers: Diabetes mellitus type: type 1 Diabetes mellitus complication detail: without coma Qualified Code(s): E10.10 - Type 1 diabetes mellitus with ketoacidosis without coma Is this a current diagnosis for this admission?: Yes Plan: DKA is resolved. Now advanced to Consistent Carb diet. Humalog for sliding scale coverage. (9) Acute on chronic pancreatitis Is this a current diagnosis for this admission?: Yes Plan: Acute episode is resolved. Lipase trending down; 1749-> 316 Tolerating >50% of regular diet. (10) Diabetes Qualifiers: Diabetes mellitus type: type 1 Diabetes mellitus complication status: with skin complications Diabetes mellitus complication detail: with other skin complication Qualified Code(s): E10.628 - Type 1 diabetes mellitus with other skin complications Is this a current diagnosis for this admission?: Yes Plan: A1c 13.1% Patient is placed on a consistent carb diet. Accu-Cheks before meals and at bedtime with Humalog for sliding scale coverage. Hypoglycemia protocol in place. Registered dietitian rn diabetes educator consulted. - Time Time Spent with patient: 35 or more minutes Medications reviewed and adjusted accordingly: Yes Anticipated Discharge Disposition: Home, Self Care Anticipated Discharge Timeframe: >72 hrs
[2019-11-05] MEDS: RINGERS SOLUTION,LACTATED 1,000 ML IV PRN ×2 (04:00→14:34)
[2019-11-05] MEDS: CEFAZOLIN 1 GM/D5W RTU 1 GM/50 ML RTUPB IV SCH ×2 (05:07→17:27)
[2019-11-05] MEDS: OXYCODONE-ACETAMINOPHEN 5-325 MG TABLET PO PRN ×4 (05:09→23:38)
[2019-11-05 06:17] LABS: ABSOLUTE RETICS # 0.015 10^6/uL (0.028-0.122); RETICULOCYTE COUNT (AUTO) 0.51 % (0.66-2.85)
[2019-11-05 06:26] LABS: IRON(TIBC) 19.3 ug/dL (49-181)
[2019-11-05 07:17] LABS: HEMATOCRIT 23.1 % (37.9-51.0); MEAN CORPUSCULAR HGB CONC 33.6 g/dL (32.0-36.0); MEAN CORPUSCULAR VOLUME 80 fl (80-97); RED BLOOD COUNT 2.87 10^6/uL (4.35-5.55); RED CELL DISTRIBUTION WIDTH 19.9 % (11.5-14.0); WHITE BLOOD COUNT 6.9 10^3/uL (4.0-10.5)
[2019-11-05 07:34] LABS: FOLATE 4.51 ng/mL (>2.76)
[2019-11-05 07:35] LABS: ANION GAP 9 (5-19); BLOOD UREA NITROGEN 66 mg/dL (7-20); CALCIUM 7.7 mg/dL (8.4-10.2); CARBON DIOXIDE 19 mmol/L (22-30); CHLORIDE 116 mmol/L (98-107); POTASSIUM 3.7 mmol/L (3.6-5.0)
[2019-11-05 07:37] LABS: HEPATITS B SURFACE ANTIGEN Negative (Negative)
[2019-11-05 07:45] LABS: GLUCOSE 36 mg/dL (75-110)
[2019-11-05 07:57] LABS: HEMOGLOBIN 7.7 g/dL (13.5-17.0)
[2019-11-05 07:58] LABS: PLATELET COUNT 52 10^3/uL (150-450)
[2019-11-05] MEDS ORDERED: IRON SUCROSE COMPLEX 300 MG in NORMAL SALINE 250 ML IV ONE ×2 (08:00→11:00)
[2019-11-05] MEDS: INSULIN REG, HUMAN 100 UNIT/ML 3 ML VIAL (PYX) SUBCUT SCH ×4 (08:10→23:03)
[2019-11-05] MEDS ORDERED: NORMAL SALINE 250 ML IV PRN ×2 (09:51)
[2019-11-05] MEDS: LACTOBACILLUS ACIDOPHILUS 250 MG TAB PO SCH ×2 (11:02→17:26)
[2019-11-05] MEDS: LIPASE/PROTEASE/AMYLASE 1 CAP CAPSULE.DR PO SCH ×2 (11:02→17:26)
[2019-11-05] MEDS: FAMOTIDINE INJ/PF 20 MG/2 ML SDV IV SCH ×2 (11:03→17:26)
--- NOTE | 2019-11-05 11:21 | PDOC PROGRESS REPORT ---
Subjective Progress Note for:: 11/05/19 Subjective:: The patient is a 39-year-old male with a past medical history significant for hypertension, hyperlipidemia insulin-dependent diabetes mellitus, numerous admissions for DKA, GERD, chronic pancreatitis, depression, substance abuse (THC and cocaine; no known IV drug use), and medical noncompliance who is well-known to the hospitalist service. Although, patient has only been admitted one prior time in the last year when previously he was admitted on a near monthly basis for DKA. Patient has had a significant weight loss in that period; ~17 kg/1 year. Pt was admitted 10/31/19 by the logistics planner service for DKA requiring intubation. He was extubated 11/01/2021 room air. He is downgraded to IMCU and transfer to the hospitalist service 11/03/2019. Patient was seen on morning rounds. He was found resting in bed, comfortably, on room air. He is A&Ox4. He reports back and chest discomfort with inspiration, sudden movements, and cough; well controlled by percocet. He denies abdominal pain, nausea, and vomiting at present. Appetite is improved; ate 50-75% of meals yesterday. 24 hour calorie count is ongoing. All questions answered. He denies fever, chills, palpitations, dyspnea, cough. TMax 100.3/24 hrs No concerns per nursing. Reason For Visit: DKA Physical Exam Vital Signs: Temp Pulse Resp BP Pulse Ox 97.7 F 80 16 96/69 L 100 11/05/19 07:35 11/05/19 07:35 11/05/19 07:35 11/05/19 07:35 11/05/19 07:35 Intake & Output 11/04/19 11/05/19 11/06/19 06:59 06:59 06:59 Intake Total 2800 2975 Output Total 2360 2225 Balance 440 750 Weight 57.1 kg 56 kg General appearance: PRESENT: no acute distress, cooperative, thin - cachectic, well-developed Head exam: PRESENT: atraumatic, normocephalic Eye exam: PRESENT: conjunctiva pink, EOMI, PERRLA. ABSENT: scleral icterus Mouth exam: PRESENT: moist, tongue midline Teeth exam: PRESENT: poor dentation Respiratory exam: PRESENT: clear to auscultation alfonso, decreased breath sounds - bibasilar, symmetrical, unlabored. ABSENT: rales, rhonchi, wheezes Cardiovascular exam: PRESENT: RRR. ABSENT: diastolic murmur, rubs, systolic murmur Vascular exam: PRESENT: normal capillary refill GI/Abdominal exam: PRESENT: normal bowel sounds, soft. ABSENT: distended, guarding, mass, organolmegaly, rebound, tenderness Rectal exam: PRESENT: deferred, other - FMS Extremities exam: PRESENT: full ROM. ABSENT: calf tenderness, clubbing, pedal edema Neurological exam: PRESENT: alert, awake, oriented to person, oriented to place, oriented to time, oriented to situation, CN II-XII grossly intact. ABSENT: motor sensory deficit Psychiatric exam: PRESENT: appropriate affect, normal mood. ABSENT: homicidal ideation, suicidal ideation Skin exam: PRESENT: dry, intact, warm. ABSENT: cyanosis, rash Results Laboratory Results: 11/05/19 05:15 11/05/19 05:15 11/04/19 11/04/19 11/05/19 09:35 18:46 05:15 WBC 8.2 RBC 2.93 L Hgb 7.9 L Hct 23.7 L MCV 81 MCH 26.9 L MCHC 33.3 RDW 19.9 H Plt Count 51 L Retic Count (auto) 0.51 L Sodium Potassium Chloride Carbon Dioxide Anion Gap BUN Creatinine Est GFR ( Amer) Glucose Calcium Iron TIBC % Saturation Ferritin Vitamin B12 Folate Stool Occult Blood POSITIVE Blood Type Antibody Screen 11/05/19 11/05/19 11/05/19 05:15 05:15 05:15 WBC 6.9 RBC 2.87 L Hgb 7.7 L Hct 23.1 L MCV 80 MCH 27.0 MCHC 33.6 RDW 19.9 H Plt Count 52 L Retic Count (auto) Sodium 144.1 Potassium 3.7 Chloride 116 H Carbon Dioxide 19 L Anion Gap 9 BUN 66 H Creatinine 2.55 H Est GFR ( Amer) 35 L Glucose 36 L* Calcium 7.7 L Iron 19.3 L TIBC 164 L % Saturation 12 Ferritin 242.00 Vitamin B12 > 1000.0 H Folate 4.51 Stool Occult Blood Blood Type Antibody Screen 11/05/19 10:12 WBC RBC Hgb Hct MCV MCH MCHC RDW Plt Count Retic Count (auto) Sodium Potassium Chloride Carbon Dioxide Anion Gap BUN Creatinine Est GFR ( Amer) Glucose Calcium Iron TIBC % Saturation Ferritin Vitamin B12 Folate Stool Occult Blood Blood Type A POSITIVE Antibody Screen NEGATIVE 11/02/19 10:50 Tracheal Aspirate AFB Smear Concentration - Final 11/02/19 10:50 Tracheal Aspirate Acid Fast Bacilli Smear - Final 11/01/19 17:40 Stool - Stool - Final 11/01/19 17:40 Stool - Stool Stool Culture - Final C.albicans/C.dubliniensis 11/02/19 10:36 Blood Blood Culture (PCR) - Final Staphylococcus Aureus 11/02/19 10:36 Blood Blood Culture - Final Staphylococcus Aureus 10/30/19 10/30/19 14:51 16:46 Troponin I Cancelled < 0.012 Impressions: Chest CT 11/03/19 00:00 IMPRESSION: Dense consolidation in the bilateral lower lobes worrisome for pneumonia. Multiple smaller ill-defined cavitary infiltrate/nodules in the upper lobes worrisome for septic emboli Trace bilateral pleural effusions Upper abdominal ascites. Calcified pancreas from old pancreatitis Renal Ultrasound 11/03/19 00:00 IMPRESSION: 1. CHRONIC MEDICAL RENAL DISEASE. CALCULUS IN THE LEFT KIDNEY. NO HYDRONEPHROSIS. 2. STONES/SLUDGE IN THE GALLBLADDER. Chest X-Ray 11/03/19 07:00 IMPRESSION: 1. Since the prior study dated 11/01/2019, interval removal of endotracheal and nasogastric tubes. 2. Persistent patchy areas of consolidation in the mid and lower lobes bilaterally, slightly more so on the right. Very small bilateral pleural effusions. Assessment and Plan - Diagnosis (1) Bacteremia Is this a current diagnosis for this admission?: Yes Plan: Blood culture (10/30/19; 1 bottle each set) MSSA and Enterococcus faecalis Urine culture (10/30/19) MSSA Urine culture (10/31/19) MRSA Blood culture (11/02/19; 1/4 bottles) MSSA and Enterococcus faecalis Blood culture (11/04/19) have no growth at 24 hrs TTE negative for vegitations CXR (10/29) RML PNA CT Chest (11/02) very dense consolidation throughout bilateral lower lobes and lateral segment of right middle lobe worrisome for pneumonia. More prominent than 10/29. Multifocal small cavity infiltrates/nodules present to the bilateral upper lobes and lateral aspect of the left lower lobe worrisome for septic emboli. CLOVER pending. Infectious disease is consulted. Continue Cefazolin; minimum 4 weeks from negative cultures. (2) Acute kidney injury Is this a current diagnosis for this admission?: Yes Plan: Improved; Cr 3.94-> 2.55 Baseline Cr 0.9/BUN 14 Adequate urine output; ~2L daily Renal/aorta U/S pending Nephrology is consulted; appreciate Dr. Bazzi's assistance. Avoid nephrotoxic medications as able; renally dose when appropriate. Continue gentle IVF Strict I&Os Daily weights (3) Severe protein-calorie malnutrition Is this a current diagnosis for this admission?: Yes Plan: BMI 18.2 Loss of subcutaneous fat/muscle mass ~17 kg weight loss over last year. sports athletic trainer is consulted. Consider Remeron/Megace/Marinol for appetite stimulation. 24 hour Calorie count ongoing (4) Pneumonitis Is this a current diagnosis for this admission?: Yes Plan: The patient has persistent infiltrates R> L in the midlung. The density on the right is fairly distinct and has coalesced. The patient is not coughing, nor short of breath. CT Chest (10/03/19) more concerning for pneumonia with septic emboli. Cultures and antibiotics as above. (5) Sepsis Qualifiers: Sepsis type: sepsis due to unspecified organism Sepsis acute organ dysfunction status: unspecified Qualified Code(s): A41.9 - Sepsis, unspecified organism Is this a current diagnosis for this admission?: Yes Plan: Resolved. Secondary to pneumonia and bacteremia Initially on Vancocin and Zosyn Transitioned to Cefazolin Infectious disease consulted. Cultures and antibiotics as above. (6) Abdominal pain Qualifiers: Abdominal location: generalized Qualified Code(s): R10.84 - Generalized abdominal pain Is this a current diagnosis for this admission?: Yes Plan: Denied abdominal discomfort today. Unclear how much of his abdominal pain could be simply related to DKA and/or an element of pancreatitis. Lipase trending down; 1749-> 316 Tolerating regular diet. (7) Polysubstance abuse Is this a current diagnosis for this admission?: Yes Plan: History THC and Cocain use. No known IVDU UDS this admission negative. (8) Diabetic ketoacidosis Qualifiers: Diabetes mellitus type: type 1 Diabetes mellitus complication detail: without coma Qualified Code(s): E10.10 - Type 1 diabetes mellitus with ketoacidosis without coma Is this a current diagnosis for this admission?: Yes Plan: DKA is resolved. Now advanced to Consistent Carb diet. Humalog for sliding scale coverage. (9) Acute on chronic pancreatitis Is this a current diagnosis for this admission?: Yes Plan: Acute episode is resolved. Lipase trending down; 1749-> 316 Tolerating >50% of regular diet. (10) Diabetes Qualifiers: Diabetes mellitus type: type 1 Diabetes mellitus complication status: with skin complications Diabetes mellitus complication detail: with other skin complication Qualified Code(s): E10.628 - Type 1 diabetes mellitus with other skin complications Is this a current diagnosis for this admission?: Yes Plan: A1c 13.1% Patient is placed on a consistent carb diet. Accu-Cheks before meals and at bedtime with Humalog for sliding scale coverage. Hypoglycemia protocol in place. Registered dietitian religious educator consulted. - Time Time Spent with patient: 25-34 minutes Medications reviewed and adjusted accordingly: Yes Anticipated Discharge Disposition: undetermined Anticipated Discharge Timeframe: >72 hrs
[2019-11-05 11:46] LABS: HEPATITIS C VIRUS ANTIBODY <0.1 s/co ratio (0.0-0.9)
[2019-11-05 17:08] LABS: ABSOLUTE EOSINOPHILS # (AUTO) 0.2 10^3/uL (0.0-0.6); ABSOLUTE LYMPHOCYTES (AUTO) 0.7 10^3/uL (0.5-4.7); ABSOLUTE MONOCYTES (AUTO) 0.5 10^3/uL (0.1-1.4); ABSOLUTE NEUT (AUTO) 7.8 10^3/uL (1.7-8.2); BASOPHILS % (AUTO) 0.2 % (0-2); EOSINOPHILS % (AUTO) 2.5 % (0-6); HEMATOCRIT 28.8 % (37.9-51.0); LYMPHOCYTES % (AUTO) 7.4 % (13-45); MEAN CORPUSCULAR HEMOGLOBIN 27.5 pg (27.0-33.4); MEAN CORPUSCULAR VOLUME 81 fl (80-97); MONOCYTES % (AUTO) 5.3 % (3-13); RED BLOOD COUNT 3.55 10^6/uL (4.35-5.55); RED CELL DISTRIBUTION WIDTH 18.2 % (11.5-14.0); SEGMENTED NEUTROPHILS % (AUTO) 84.6 % (42-78); TOTAL CELLS COUNTED % (AUTO) 100 %; WHITE BLOOD COUNT 9.2 10^3/uL (4.0-10.5)
[2019-11-05 17:12] LABS: HEMOGLOBIN 9.8 g/dL (13.5-17.0)
[2019-11-05 17:43] LABS: PLATELET COUNT 52 10^3/uL (150-450)
[2019-11-06] MEDS: RINGERS SOLUTION,LACTATED 1,000 ML IV PRN (01:42)
[2019-11-06] MEDS: CEFAZOLIN 1 GM/D5W RTU 1 GM/50 ML RTUPB IV SCH ×2 (06:31→17:42)
[2019-11-06] MEDS: OXYCODONE-ACETAMINOPHEN 5-325 MG TABLET PO PRN ×3 (06:34→22:20)
[2019-11-06] MEDS: INSULIN REG, HUMAN 100 UNIT/ML 3 ML VIAL (PYX) SUBCUT SCH ×4 (07:59→22:21)
[2019-11-06] MEDS: LIPASE/PROTEASE/AMYLASE 1 CAP CAPSULE.DR PO SCH ×2 (08:19→17:42)
[2019-11-06] MEDS ORDERED: IRON SUCROSE COMPLEX 300 MG in NORMAL SALINE 250 ML IV ONE (11:00)
--- NOTE | 2019-11-06 11:20 | PDOC PROGRESS REPORT ---
Subjective Progress Note for:: 11/06/19 Subjective:: Patient is laying down comfortably and telling me that he is doing okay. He said he is eating some. He continues to complain of the chest pain and upper abdominal pain as previous. He is making urine and over the weekend has made anywhere between 1500 to 1900 mL. Reason For Visit: DKA Physical Exam Vital Signs: Temp Pulse Resp BP Pulse Ox 98.7 F 76 16 105/69 98 11/06/19 08:47 11/06/19 09:58 11/06/19 09:58 11/06/19 07:54 11/06/19 09:58 Intake & Output 11/05/19 11/06/19 11/07/19 06:59 06:59 06:59 Intake Total 3025 4070 Output Total 2225 2325 Balance 800 1745 Weight 56 kg 56 kg Exam: General appearance: PRESENT: no acute distress, cooperative, cachectic Head exam: PRESENT: atraumatic, normocephalic Eye exam: PRESENT: conjunctiva pale, PERRLA. ABSENT: scleral icterus Neck exam: ABSENT: JVD Respiratory exam: PRESENT: Diminished breath sounds. ABSENT: crackles, rales, rhonchi, unlabored, wheezes Cardiovascular exam: PRESENT: Regular rate rhythm -+S1, +S2. ABSENT: diastolic murmur, systolic murmur GI/Abdominal exam: PRESENT: normal bowel sounds, soft. ABSENT: guarding, mass, tenderness Extremities exam: ABSENT: No edema Neurological exam: PRESENT: alert, awake, oriented to person, place and time. Skin exam: PRESENT: dry, warm, Results Laboratory Results: 11/05/19 16:45 11/05/19 05:15 11/05/19 11/05/19 10:12 16:45 WBC 9.2 RBC 3.55 L Hgb 9.8 L D Hct 28.8 L MCV 81 MCH 27.5 MCHC 34.0 RDW 18.2 H Plt Count 52 L Seg Neutrophils % 84.6 H Blood Type A POSITIVE Antibody Screen NEGATIVE 11/02/19 10:50 Blood Blood Culture (PCR) - Final Staphylococcus Aureus 11/04/19 18:46 Sputum Gram Stain - Final 10/30/19 10/30/19 14:51 16:46 Troponin I Cancelled < 0.012 Impressions: Chest CT 11/03/19 00:00 IMPRESSION: Dense consolidation in the bilateral lower lobes worrisome for pneumonia. Multiple smaller ill-defined cavitary infiltrate/nodules in the upper lobes worrisome for septic emboli Trace bilateral pleural effusions Upper abdominal ascites. Calcified pancreas from old pancreatitis Renal Ultrasound 11/03/19 00:00 IMPRESSION: 1. CHRONIC MEDICAL RENAL DISEASE. CALCULUS IN THE LEFT KIDNEY. NO HYDRONEPHROSIS. 2. STONES/SLUDGE IN THE GALLBLADDER. Chest X-Ray 11/03/19 07:00 IMPRESSION: 1. Since the prior study dated 11/01/2019, interval removal of endotracheal and nasogastric tubes. 2. Persistent patchy areas of consolidation in the mid and lower lobes bilaterally, slightly more so on the right. Very small bilateral pleural effusions. Assessment & Plan - Diagnosis (1) Acute kidney injury Is this a current diagnosis for this admission?: Yes Plan: Currently nonoliguric. Multifactorial causes secondary to initial DKA, hypotension, sepsis. Patient appears to have some proteinuria which would i ndicate an underlying microvascular disease in patient with diabetes. Patient creatinine was 0.93 in September 2019. Admitting creatinine was 3.94 currently improved to 2.55 from yesterday. Patient does not require any renal replacement therapy. Continue treatment of acute conditions including bacte remia and maintain euvolemia. Monitor kidney function and urine output. Urinalysis showed moderate blood, large leukocyte esterase but negative nitrite, protein of 30, WBC of 76 and RBC of 6. Urine protein to creatinine ratio is 1.3. Kidney ultrasound showed normal size kidneys with bilateral increased echogenicity, no hydronephrosis with 1.3 cm calculus on the left kidney and incidental findings of gallbladder sludge. (2) Hypotension Is this a current diagnosis for this admission?: Yes Plan: Blood pressure for the last 72 hours appropriate for his body size. (3) Weight loss Is this a current diagnosis for this admission?: Yes Plan: This is associated with appetite loss with concomitant abdominal pain and diarrhea likely due to underlying chronic pancreatitis. However needs to rule out other causes of unintentional weight loss including malignancy. CT scan of the chest did not show any evidence of malignancy. (4) Bacteremia Is this a current diagnosis for this admission?: Yes Plan: Positive for enterococcus and MSSA treated with vancomycin and currently on IV cefazolin. (5) Sepsis Qualifiers: Sepsis type: sepsis due to unspecified organism Sepsis acute organ dysfunction status: unspecified Qualified Code(s): A41.9 - Sepsis, unspecified organism Is this a current diagnosis for this admission?: Yes (6) MRSA (methicillin resistant Staphylococcus aureus) infection Is this a current diagnosis for this admission?: Yes Plan: Treated with vancomycin. (7) Abdominal pain Qualifiers: Abdominal location: generalized Qualified Code(s): R10.84 - Generalized abdominal pain Is this a current diagnosis for this admission?: Yes Plan: Likely due to pancreatitis. CT scan showed calcified pancreas. (8) Diabetic ketoacidosis Qualifiers: Diabetes mellitus type: type 1 Diabetes mellitus complication detail: without coma Qualified Code(s): E10.10 - Type 1 diabetes mellitus with ketoacidosis without coma Is this a current diagnosis for this admission?: Yes Plan: Resolving. Now with hyperchloremic metabolic acidosis as expected in the course of DKA. (9) Acute on chronic pancreatitis Is this a current diagnosis for this admission?: Yes (10) Anemia Qualifiers: Anemia type: iron deficiency Iron deficiency anemia type: other iron deficiency Qualified Code(s): D50.8 - Other iron deficiency anemias Is this a current diagnosis for this admission?: Yes Plan: IV Venofer ordered by hospitalist service. (11) DM hyperosmolarity type I Qualifiers: Diabetes mellitus complication detail: without coma Qualified Code(s): E10.69 - Type 1 diabetes mellitus with other specified complication Is this a current diagnosis for this admission?: Yes (12) Hypokalemia Is this a current diagnosis for this admission?: Yes Plan: Replace as necessary. Improved. (13) Hyponatremia Is this a current diagnosis for this admission?: Yes Plan: Resolved. - Time Time with patient: 15-25 minutes
[2019-11-06] MEDS: LACTOBACILLUS ACIDOPHILUS 250 MG TAB PO SCH ×2 (11:24→17:42)
[2019-11-06] MEDS: FAMOTIDINE INJ/PF 20 MG/2 ML SDV IV SCH ×2 (11:24→17:42)
[2019-11-06 12:23] LABS: ANION GAP 11 (5-19); BLOOD UREA NITROGEN 57 mg/dL (7-20); CALCIUM 7.5 mg/dL (8.4-10.2); CARBON DIOXIDE 17 mmol/L (22-30); CHLORIDE 114 mmol/L (98-107); GLUCOSE 143 mg/dL (75-110)
[2019-11-06] MEDS: PROMETHAZINE HCL INJ 25 MG/1 ML VIAL IV PRN ×2 (14:12→22:20)
--- NOTE | 2019-11-06 14:38 | RADIOLOGY REPORT (SQ) ---
EXAM DESCRIPTION: CHEST SINGLE VIEW IMAGES COMPLETED DATE/TIME: 11/06/2019 2:23 pm REASON FOR STUDY: dyspnea COMPARISON: AP view of the chest from 11/03/2019. EXAM PARAMETERS: NUMBER OF VIEWS: One view. TECHNIQUE: An AP view of the chest was obtained. RADIATION DOSE: NA LIMITATIONS: None. FINDINGS: LUNGS AND PLEURA: Unchanged appearance of the lungs and pleura. MEDIASTINUM AND HILAR STRUCTURES: Stable mediastinal and hilar contours. HEART AND VASCULAR STRUCTURES: Stable cardiac silhouette. BONES: No acute findings. HARDWARE: None in the chest. OTHER: No other finding. IMPRESSION: Unchanged radiographic appearance of the chest. TECHNICAL DOCUMENTATION: JOB ID: [id number] 2010 [employer]- All Rights Reserved Reading location - IP/workstation name: [email or web address]
--- NOTE | 2019-11-06 18:48 | Progress Note ---
Provider Note Provider Note: [facility] Telephone Advice: Chart reviewed, patient not examined. Patient is a 39-year-old man who was admitted to the hospital due to DKA with a glucose >1000 and bicarb of 6. Acute kidney injury as well. Blood cultures positive for MSSA (he is colonized with MRSA and had a blood culture with mecA gene detected, but MSSA grew from cultures). He has been on cefazolin, renally adjusted. Blood cultures have been positive from 10/29, 11/01 and 11/03. Urine culture from the catheter positive for MRSA, but previously isolated MSSA. Respiratory culture positive for MSSA. TTE was negative and it was of good quality, but CT scan of [facility] chest concerning for septic pulmonary emboli. ID re-consulted for recommendations. PMH: DM1 Allergies: ondansetron [From Zofran (as hydrochloride)] Allergy (Severe, Verified 10/30/19 18:44) Difficulty breathing Medications: Insulin Aspart [Novolog Flexpen] 0 unit SUBCUT .SLD SCALE 09/26/19 Insulin Glargine,Hum.rec.anlog [Lantus Insulin 100 Unit/1 ml 10 ml] 25 unit SQ Q12 09/26/19 Lipase/Protease/Amylase [Nate Rodríguez 36,000 Units Capsule] 1 cap PO .SNACKS 09/26/19 Lipase/Protease/Amylase [Nate Rodríguez 36,000 Units Capsule] 1 cap PO AC 09/26/19 Vital Signs: Temp Pulse Resp BP Pulse Ox 98.0 F 86 17 108/71 99 11/06/19 16:18 11/06/19 16:18 11/06/19 16:18 11/06/19 16:18 11/06/19 16:18 Intake & Output 11/05/19 11/06/19 11/07/19 06:59 06:59 06:59 Intake Total 3025 4070 516 Output Total 2225 2325 Balance 800 1745 516 Weight 56 kg 56 kg Weight/Height Weight 56 kg Height 5 ft 9 in Laboratories: 11/05/19 16:45 11/06/19 11:41 MCV 81 fl (80-97) 11/05/19 16:45 MCH 27.5 pg (27.0-33.4) 11/05/19 16:45 MCHC 34.0 g/dL (32.0-36.0) 11/05/19 16:45 RDW 18.2 % (11.5-14.0) H 11/05/19 16:45 Seg Neutrophils % 84.6 % (42-78) H 11/05/19 16:45 Retic Count (auto) 0.51 % (0.66-2.85) L 11/05/19 05:15 Carbonic Acid 0.73 mmol/L (1.05-1.35) L 11/02/19 08:40 HCO3/H2CO3 Ratio 24:1 11/02/19 08:40 ABG pH 7.49 (7.35-7.45) H 11/02/19 08:40 ABG pCO2 24.3 mmHg (35-45) L 11/02/19 08:40 ABG pO2 61.4 mmHg (80-100) L 11/02/19 08:40 ABG HCO3 18.2 mmol/L (20-24) L 11/02/19 08:40 ABG O2 Saturation 93.8 % (94-98) L 11/02/19 08:40 ABG Base Excess -3.9 mmol/L 11/02/19 08:40 VBG pH 6.93 (7.30-7.42) L* 10/31/19 05:23 VBG pCO2 26.8 mmHg (35-63) L 10/31/19 05:23 VBG HCO3 5.4 mmol/L (20-32) L 10/31/19 05:23 VBG Base Excess -26.2 mmol/L 10/31/19 05:23 FiO2 35% 11/02/19 08:40 Chloride 114 mmol/L (98-107) H 11/06/19 11:41 Carbon Dioxide 17 mmol/L (22-30) L 11/06/19 11:41 Anion Gap 11 (5-19) 11/06/19 11:41 Est GFR ( Amer) 42 (>60) L 11/06/19 11:41 Est GFR (Non-Af Amer) Cancelled 10/31/19 21:30 Glucose 143 mg/dL (75-110) H 11/06/19 11:41 Lactic Acid 4.1 mmol/L (0.7-2.1) H 10/31/19 05:23 Calcium 7.5 mg/dL (8.4-10.2) L 11/06/19 11:41 Phosphorus 3.4 mg/dL (2.5-4.5) 11/02/19 05:40 Magnesium 1.5 mg/dL (1.6-2.3) L 11/02/19 05:40 Iron 19.3 ug/dL (49-181) L 11/05/19 05:15 TIBC 164 ug/dL (250-450) L 11/05/19 05:15 % Saturation 12 % 11/05/19 05:15 Ferritin 242.00 ng/mL (17.9-464.0) 11/05/19 05:15 Total Bilirubin 0.6 mg/dL (0.2-1.3) 11/02/19 05:40 AST 22 U/L (17-59) 11/02/19 05:40 Alkaline Phosphatase 160 U/L (38-126) H 11/02/19 05:40 C-Reactive Protein 84.8 mg/L (<10.0) H 11/04/19 06:30 Total Protein 4.9 g/dL (6.3-8.2) L 11/02/19 05:40 Albumin 1.8 g/dL (3.5-5.0) L 11/02/19 05:40 Lipase 316.0 U/L (23-300) H 11/02/19 05:40 Vitamin B12 > 1000.0 pg/mL (239-931) H 11/05/19 05:15 Folate 4.51 ng/mL (>2.76) 11/05/19 05:15 TSH 1.32 uIU/mL (0.47-4.68) 10/31/19 04:05 Free T4 1.03 ng/dL (0.78-2.19) 10/31/19 04:05 Free T3 pg/mL 1.64 pg/mL (2.77-5.27) L 10/31/19 04:05 Urine Color YELLOW 11/03/19 18:00 Urine Appearance CLOUDY 11/03/19 18:00 Urine pH 5.0 (5.0-9.0) 11/03/19 18:00 Ur Specific [place] 1.011 11/03/19 18:00 Urine Protein 30 mg/dL (NEGATIVE) H 11/03/19 18:00 Urine Glucose (UA) NEGATIVE mg/dL (NEGATIVE) 11/03/19 18:00 Urine Ketones NEGATIVE mg/dL (NEGATIVE) 11/03/19 18:00 Urine Blood MODERATE (NEGATIVE) H 11/03/19 18:00 Urine Nitrite NEGATIVE (NEGATIVE) 11/03/19 18:00 Ur Leukocyte Esterase LARGE (NEGATIVE) H 11/03/19 18:00 Urine WBC (Auto) 76 /HPF 11/03/19 18:00 Urine RBC (Auto) 6 /HPF 11/03/19 18:00 Stool Occult Blood POSITIVE (NEGATIVE) 11/04/19 18:46 Stl C.difficile Tox PCR NEGATIVE (NEGATIVE) 11/01/19 17:40 Blood Type A POSITIVE 11/05/19 10:12 Antibody Screen NEGATIVE 11/05/19 10:12 11/04/19 18:46 Sputum Gram Stain - Final 11/04/19 10:49 Blood Blood Culture (PCR) - Final Staphylococcus Aureus 11/02/19 10:50 Blood Blood Culture (PCR) - Final Staphylococcus Aureus 10/30/19 10/30/19 14:51 16:46 Troponin I Cancelled < 0.012 Radiology: Chest CT 11/03/19 00:00 IMPRESSION: Dense consolidation in the bilateral lower lobes worrisome for pneumonia. Multiple smaller ill-defined cavitary infiltrate/nodules in the upper lobes worrisome for septic emboli Trace bilateral pleural effusions Upper abdominal ascites. Calcified pancreas from old pancreatitis Renal Ultrasound 11/03/19 00:00 IMPRESSION: 1. CHRONIC MEDICAL RENAL DISEASE. CALCULUS IN THE LEFT KIDNEY. NO HYDRONEPHROSIS. 2. STONES/SLUDGE IN THE GALLBLADDER. Chest X-Ray 11/06/19 00:00 IMPRESSION: Unchanged radiographic appearance of the chest. Assessment and Recommendations: Patient evaluated due to complicated MSSA bacteremia without specific source identified. He continues bacteremic. He has back pain, not improving, will recommend MRI of the C/T/L spine to rule out epidural abscess, discitis or vertebral osteomyelitis. Will also recommend CT scan of the abdomen/pelvis to rule out intra-abdominal/pelvic abscess, prostatitis. Consider CLOVER if still bacteremic in 48 hr and negative imaging. Removal of Bar catheter and any central lines. Continue cefazolin, can increase the dose to 2g every 8 hr as renal function is improving. Repeat blood cultures tomorrow. Rosa Maria Richter MD [facility] ID [phone]
--- NOTE | 2019-11-06 19:07 | PDOC PROGRESS REPORT ---
Subjective Progress Note for:: 11/06/19 Subjective:: As per progress note on 11/05/2019 by Yesica Naranjo: "The patient is a 39-year-old male with a past medical history significant for hypertension, hyperlipidemia insulin-dependent diabetes mellitus, numerous admissions for DKA, GERD, chronic pancreatitis, depression, substance abuse (THC and cocaine; no known IV drug use), and medical noncompliance who is well-known to the hospitalist service. Although, patient has only been admitted one prior time in the last year when previously he was admitted on a near monthly basis for DKA. Patient has had a significant weight loss in that period; ~17 kg/1 year. Pt was admitted 10/31/19 by the machine sewer service for DKA requiring intubation. He was extubated 11/01/2021 room air. He is downgraded to IMCU and transfer to the hospitalist service 11/03/2019." Today patient was seen on morning rounds. He was found sitting upright in his chair eating. He notes increase in and chest pain since last visit. Symptoms are aggravated with movement, deep inhalation, and cough. Currently receiving Percocet which minimally helps with pain. His appetite is good. He was able to eat cereal for breakfast and soup, cottage cheese, and salad for lunch without nausaea, vomiting, or abdominal pain. 24 calorie count is ongoing. Otherwise denies fever, chills, palpitations, or lower extremity swelling. Discussed case with nursing. States that bowel movements have consistently been liquid in appearance. No other concerns expressed. Reason For Visit: SOB, back pain, DKA (resolved) Physical Exam Vital Signs: Temp Pulse Resp BP Pulse Ox 97.9 F 92 17 82/50 L 96 11/06/19 11:57 11/06/19 11:57 11/06/19 11:57 11/06/19 12:06 11/06/19 11:57 Intake & Output 11/05/19 11/06/19 11/07/19 06:59 06:59 06:59 Intake Total 3025 4070 466 Output Total 2225 2325 Balance 800 1745 466 Weight 56 kg 56 kg General appearance: PRESENT: cooperative, mild distress, thin Head exam: PRESENT: atraumatic, normocephalic Eye exam: PRESENT: conjunctiva pink. ABSENT: scleral icterus Ear exam: PRESENT: normal external ear exam. ABSENT: bleeding, drainage Mouth exam: PRESENT: dry mucosa, tongue midline Teeth exam: PRESENT: dental caries, poor dentation Neck exam: PRESENT: full ROM. ABSENT: lymphadenopathy, tenderness Respiratory exam: PRESENT: chest wall tenderness, decreased breath sounds - Completly diminished bibasilar, wheezes. ABSENT: rales, rhonchi Cardiovascular exam: PRESENT: RRR. ABSENT: systolic murmur Vascular exam: PRESENT: normal capillary refill GI/Abdominal exam: PRESENT: normal bowel sounds, soft. ABSENT: distended, firm, rebound, tenderness Rectal exam: PRESENT: deferred, other - FMS Gentrourinary exam: PRESENT: indwelling catheter Extremities exam: PRESENT: full ROM. ABSENT: calf tenderness, clubbing, pedal edema Musculoskeletal exam: PRESENT: ambulatory, full ROM. ABSENT: deformity, dislocation Neurological exam: PRESENT: alert, awake, oriented to person, oriented to place, oriented to time, oriented to situation, CN II-XII grossly intact. ABSENT: motor sensory deficit Psychiatric exam: PRESENT: appropriate affect, normal mood Skin exam: PRESENT: dry, intact, warm. ABSENT: cyanosis Results Laboratory Results: 11/05/19 16:45 11/06/19 11:41 11/05/19 11/06/19 16:45 11:41 WBC 9.2 RBC 3.55 L Hgb 9.8 L D Hct 28.8 L MCV 81 MCH 27.5 MCHC 34.0 RDW 18.2 H Plt Count 52 L Seg Neutrophils % 84.6 H Sodium 141.9 Potassium 4.0 Chloride 114 H Carbon Dioxide 17 L Anion Gap 11 BUN 57 H Creatinine 2.17 H Est GFR ( Amer) 42 L Glucose 143 H Calcium 7.5 L 11/04/19 18:46 Sputum Gram Stain - Final 11/04/19 10:49 Blood Blood Culture (PCR) - Final Staphylococcus Aureus 11/02/19 10:50 Blood Blood Culture (PCR) - Final Staphylococcus Aureus 10/30/19 10/30/19 14:51 16:46 Troponin I Cancelled < 0.012 Impressions: Chest CT 11/03/19 00:00 IMPRESSION: Dense consolidation in the bilateral lower lobes worrisome for pneumonia. Multiple smaller ill-defined cavitary infiltrate/nodules in the upper lobes worrisome for septic emboli Trace bilateral pleural effusions Upper abdominal ascites. Calcified pancreas from old pancreatitis Renal Ultrasound 11/03/19 00:00 IMPRESSION: 1. CHRONIC MEDICAL RENAL DISEASE. CALCULUS IN THE LEFT KIDNEY. NO HYDRONEPHROSIS. 2. STONES/SLUDGE IN THE GALLBLADDER. Chest X-Ray 11/03/19 07:00 IMPRESSION: 1. Since the prior study dated 11/01/2019, interval removal of endotracheal and nasogastric tubes. 2. Persistent patchy areas of consolidation in the mid and lower lobes bilaterally, slightly more so on the right. Very small bilateral pleural effusions. Assessment and Plan - Diagnosis (1) Bacteremia Is this a current diagnosis for this admission?: Yes Plan: Blood culture (10/30/19; 1 bottle each set) MSSA and Enterococcus faecalis Urine culture (10/30/19) MSSA Urine culture (10/31/19) MRSA Blood culture (11/02/19; 1/4 bottles) MSSA and Enterococcus faecalis Blood culture (11/04/19) No growth after 48 hours. TTE negative for vegitations CXR (10/29) RML PNA CT Chest (11/02) very dense consolidation throughout bilateral lower lobes and lateral segment of right middle lobe worrisome for pneumonia. More prominent than 10/29. Multifocal small cavity infiltrates/nodules present to the bilateral upper lobes and lateral aspect of the left lower lobe worrisome for septic emboli. CLOVER pending. Infectious disease is consulted. Recommended further evaluation via images to establish bacteremia source. -CT abdomen and pelvis for evaluation of possible abscess. -MRI Thoracic/Lumbar spine for evaluation of epidural abscess. -Repeat blood cultures, results pending. -Folly catheter removed, repeat UA with urine culture. -Advised on continued treatment with Cefazolin, duration of treatment regimen unknown at this time. (2) Back pain Qualifiers: Back pain location: thoracic back pain Chronicity: acute Back pain laterality: midline Qualified Code(s): M54.6 - Pain in thoracic spine Is this a current diagnosis for this admission?: Yes Plan: Ongoing complaint of thoracic and lumbar pain, with notable increase. Currently treating with Percocet. Consider additional therapy with K pad. He is nontender to palpation of the thoracic and lumbar spine on exam. MRI of thoracic and lumbar spine ordered. -Investigate further treatment management pending results. (3) Shortness of breath Is this a current diagnosis for this admission?: Yes Plan: Patient complains of increased shortness of breath from previous visit. Unable to auscultate basilar lung sounds bilaterally. Chest x-ray pending. Can utilize albuterol as needed. Consider further treatment evaluation pending results. (4) Acute kidney injury Is this a current diagnosis for this admission?: Yes Plan: Improving; Cr 2.55 -> 2.17. BUN 66 -> 57. Baseline Cr 0.9/BUN 14 Adequate urine output; ~2L daily Renal US: chronic renal disease, calculus left kidney, no dydronephrosis. Followed by Dr. Bazzi, nephrology. -Renal replacement therapy no indicated at this time. -Maintain euvolemia. Avoid nephrotoxic medications as able; renally dose when appropriate. Continue gentle IVF Strict I&Os Daily weights (5) Severe protein-calorie malnutrition Is this a current diagnosis for this admission?: Yes Plan: BMI 18.2 with significant weight loss of approximately 17 kg over the past year. Noted increase in his appetite. He was seen by a registered dietitian. 24 hour Calorie count ongoing Consider Remeron/Megace/Marinol for appetite stimulation. (6) Pneumonitis Is this a current diagnosis for this admission?: Yes Plan: The patient has persistent infiltrates R> L in the midlung. The density on the right is fairly distinct and has coalesced. The patient is not coughing, nor short of breath. CT Chest (10/03/19) more concerning for pneumonia with septic emboli. Cultures and antibiotics as above. (7) Sepsis Qualifiers: Sepsis type: sepsis due to unspecified organism Sepsis acute organ dysfunction status: unspecified Qualified Code(s): A41.9 - Sepsis, unspecified organism Is this a current diagnosis for this admission?: Yes Plan: This is resolved at this time suspect secondary to pneumonia and bacteremia. He was initially treated with vancomycin and Zosyn and was transitioned to cefazolin. Infectious disease was consulted and recommended continued treatment with cefazolin. Treatment and further evaluation otherwise as stated above. (8) Polysubstance abuse Is this a current diagnosis for this admission?: Yes Plan: Patient has a history of THC and cocaine use. He denies IV drug use at this time. Urine drug screen on admission was negative. Provided patient with education and encouragement regarding abstinence from drug use. Otherwise no treatment or attention necessary at this time. (9) Diabetic ketoacidosis Qualifiers: Diabetes mellitus type: type 1 Diabetes mellitus complication detail: witho ut coma Qualified Code(s): E10.10 - Type 1 diabetes mellitus with ketoacidosis without coma Is this a current diagnosis for this admission?: Yes Plan: DKA is resolved. Now advanced to Consistent Carb diet. Humalog for sliding scale coverage. Monitor blood sugar. (10) Acute on chronic pancreatitis Is this a current diagnosis for this admission?: Yes Plan: This has resolved. Lipase continues to trend downward. He is tolerating a regular diet. No further attention or treatment necessary at this time. (11) Abdominal pain Qualifiers: Abdominal location: generalized Qualified Code(s): R10.84 - Generalized abdominal pain Is this a current diagnosis for this admission?: Yes Plan: Denied abdominal discomfort today. Unclear how much of his abdominal pain could be simply related to DKA and/or an element of pancreatitis. Lipase continues to trend downward. CT abdomen pelvis ordered as discussed above. He continues to tolerate regular diet and seems to be advancing his diet appropriately. (12) Diabetes mellitus Qualifiers: Diabetes mellitus type: type 1 Diabetes mellitus complication status: with ketoacidosis Diabetes mellitus complication detail: without coma Qualified Code(s): E10.10 - Type 1 diabetes mellitus with ketoacidosis without coma Is this a current diagnosis for this admission?: Yes Plan: His most recent A1c was 13.1%. Dietitian consulted and he was placed on a consistent carb diet. He checks before meals and at bedtime with Humalog for sliding scale coverage. Glycemic protocol is in place. - Plan Summary Summary: Patient is a 39-year-old male known IV drug use came in with DKA and sepsis secondary to MSSA. DKA has resolved. source unclear for MSSA bacteremia. TTE negative, MRI thoracolumbar negative for abscess or osteomyelitis, awaiting nonspecific Transesophageal echocardiogram. CT chest findings concern needing for septic emboli. Currently on day 5 of cefazolin. ID following - Time Time Spent with patient: 25-34 minutes Medications reviewed and adjusted accordingly: Yes Anticipated Discharge Disposition: Undetermined Anticipated Discharge Timeframe: Unknown
--- NOTE | 2019-11-06 19:55 | RADIOLOGY REPORT (SQ) ---
EXAM DESCRIPTION: CT ABD/PELVIS NO ORAL OR IV IMAGES COMPLETED DATE/TIME: 11/06/2019 7:24 pm REASON FOR STUDY: MSSA bacteremia without source COMPARISON: 10/27/2019 TECHNIQUE: CT scan of the abdomen and pelvis performed without intravenous or oral contrast. Images reviewed with lung, soft tissue, and bone windows. Reconstructed coronal and sagittal MPR images revi ewed. All images stored on PACS. All CT scanners at this facility use dose modulation, iterative reconstruction, and/or weight based d osing when appropriate to reduce radiation dose to as low as reasonably achievable (ALARA). [facility]: Dose Right [facility]: CareDose [facility]: Dose Right [facility]: Teradose 4D [facility]: Smart [employer] RADIATION DOSE: CT Rad equipment meets quality standard of care and radiation dose reduction techniq ues were employed. CTDIvol: 5.1 mGy. DLP: 263 mGy-cm.mGy. LIMITATIONS: There is considerable artifact. FINDINGS: LOWER CHEST: There is fairly dense, patchy opacification in both lower lobes. Small right pleural effusion. Minimal left pleural effusion. There is a small cavitary area in the right lower lobe not present previously. NON-CONTRASTED LIVER, SPLEEN, ADRENALS: Evaluation limited by lack of IV contrast. No identified sign ificant masses. PANCREAS: Extensive pancreatic calcifications. No acute pancreatitis. GALLBLADDER: No identified stones by CT criteria. No inflammatory changes to suggest cholecystitis. RIGHT KIDNEY AND URETER: No suspicious masses. Assessment limited by lack of IV contrast. No signif icant calcifications. No hydronephrosis or hydroureter. LEFT KIDNEY AND URETER: No suspicious masses. Assessment limited by lack of IV contrast. Nonobstruc ting intrarenal calculus. No hydronephrosis or hydroureter. AORTA AND RETROPERITONEUM: No aneurysm. No retroperitoneal masses or adenopathy. BOWEL AND PERITONEAL CAVITY: There is free fluid in the abdomen. No obvious bowel mass or inflammati on. Evaluation is limited. APPENDIX: Not identified. PELVIS, BLADDER, AND ABDOMINAL WALL:Urinary bladder is normal. A rectal tube is present. BONES: No significant findings. OTHER: No other significant finding. IMPRESSION: 1. Bilateral, fairly dense pneumonias. May represent atypical infectious/ inflammatory process. Small right pleural effusion. Minimal left pleural effusion. 2. Free fluid in the abdomen. 3. Nonobstructing left renal calculus. 4. Chronic pancreatitis. COMMENT: Quality ID # [id number]: Final reports with documentation of one or more dose reduction techniques (e.g., Automated exposure control, adjustment of the mA and/or kV according to patient size, use of iterative reconstruction technique) TECHNICAL DOCUMENTATION: JOB ID: [id number] 2010 [employer]- All Rights Reserved Reading location - IP/workstation name: [email or web address]
--- NOTE | 2019-11-06 20:03 | RADIOLOGY REPORT (SQ) ---
EXAM DESCRIPTION: MRI LUMBAR SPINE WITHOUT IMAGES COMPLETED DATE/TIME: 11/06/2019 7:40 pm REASON FOR STUDY: MSSA bacteremia without source COMPARISON: None. TECHNIQUE: Sagittal and Axial imaging includes T1, T2, STIR and gradient echo sequences. Coronal T2/ HASTE imaging. LIMITATIONS: None. FINDINGS: VISUALIZED UPPER ABDOMEN: Limited evaluation. No acute or suspicious findings suggested. SEGMENTATION: No transitional anatomy. The lowest well-developed disc space is labeled L5-S1. ALIGNMENT: Anterolisthesis of what appears to be S1 on S2. This may be a developmental anomaly. VERTEBRAE: Intact. BONE MARROW: Normal. No marrow replacement or reactive changes. DISC SIGNAL: Normal. No significant abnormal signal or loss of height. POSTERIOR ELEMENTS: Generally intact. No pars defect evident. HARDWARE: None in the spine. CORD AND CONUS: Normal in size and signal intensity. Conus at the appropriate level. SOFT TISSUES: No aortic aneurysm seen. No bulky retroperitoneal adenopathy or mass. No paraspinal mas s or fluid. L1-L2: No significant spinal stenosis or exit foraminal stenosis. L2-L3: No significant spinal stenosis or exit foraminal stenosis. L3-L4: Concentric disc bulge with mild central canal stenosis. L4-L5: No significant spinal stenosis or exit foraminal stenosis. L5-S1: No significant spinal stenosis or exit foraminal stenosis. LOWER THORACIC: Incompletely imaged. No stenosis seen. SACRUM: Visualized upper sacrum intact. OTHER: No other significant findings. IMPRESSION: 1. 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 Recommend radiog raphs of the lumbosacral spine. 2. There is some mild concentric disc bulge at L3-4 with mild central canal stenoses. No significan t foraminal stenoses are seen. TECHNICAL DOCUMENTATION: JOB ID: [id number] 2010 [employer]- All Rights Reserved Reading location - IP/workstation name: [email or web address]
--- NOTE | 2019-11-06 20:26 | RADIOLOGY REPORT (SQ) ---
EXAM DESCRIPTION: MR THORACIC SPINE WITHOUT IV CONTRAST COMPLETED DATE/TME: 11/06/2019 00:00 CLINICAL HISTORY: Back pain and chest pain. 39 years, Male, MSSA bacteremia without source COMPARISON: None. TECHNIQUE: Noncontrast multiplanar multiecho MR imaging of the thoracic spine was performed. Images stored on PACS. LIMITATIONS: Axial T1 images are degraded by motion artifact. FINDINGS: There is no evidence of thoracic spine fracture or subluxation. No suspicious marrow signal abnormality is seen. No significant degenerative changes are identified. There is no evidence of significant spinal canal stenosis or neural foraminal stenosis within the thoracic spine. Thoracic spinal cord signal appears maintained. Bilateral pleural and airspace disease is partially visualized with some apparent cavitation in the right upper lobe. These findings were demonstrated on recent chest x-ray. Thoracic esophagus also is dilated and partially fluid-filled. There is also some mucus or other debris within the trachea. IMPRESSION: 1. Normal appearance about the thoracic spine. 2. Bilateral pleural and airspace disease as noted on recent chest x-ray. Thoracic esophagus is also dilated and partially fluid-filled. copyright 2010 [employer]- All Rights Reserved
[2019-11-06] MEDS ORDERED: CEFAZOLIN 2 GM/D5W RTU 2 GM/50 ML RTUPB IV SCH (22:00)
[2019-11-07] MEDS: RINGERS SOLUTION,LACTATED 1,000 ML IV PRN ×2 (02:16→18:36)
[2019-11-07] MEDS ORDERED: CEFAZOLIN 2 GM/D5W RTU 2 GM/50 ML RTUPB IV ONE (02:52)
[2019-11-07] MEDS: CEFAZOLIN SODIUM 2 GM in DEXTROSE 5%-WATER 100 ML IV SCH ×3 (03:06→17:06)
[2019-11-07] MEDS: PROMETHAZINE HCL INJ 25 MG/1 ML VIAL IV PRN ×3 (03:08→18:35)
[2019-11-07] MEDS: OXYCODONE-ACETAMINOPHEN 5-325 MG TABLET PO PRN ×3 (06:07→18:36)
[2019-11-07 07:41] LABS: ANION GAP 6 (5-19); BLOOD UREA NITROGEN 55 mg/dL (7-20); CALCIUM 7.4 mg/dL (8.4-10.2); CARBON DIOXIDE 21 mmol/L (22-30); CHLORIDE 117 mmol/L (98-107); POTASSIUM 4.1 mmol/L (3.6-5.0)
[2019-11-07] MEDS: INSULIN REG, HUMAN 100 UNIT/ML 3 ML VIAL (PYX) SUBCUT SCH ×4 (07:47→22:05)
[2019-11-07 07:55] LABS: HEMATOCRIT 24.2 % (37.9-51.0); HEMOGLOBIN 8.1 g/dL (13.5-17.0); MEAN CORPUSCULAR HEMOGLOBIN 27.3 pg (27.0-33.4); MEAN CORPUSCULAR HGB CONC 33.3 g/dL (32.0-36.0); MEAN CORPUSCULAR VOLUME 82 fl (80-97); RED BLOOD COUNT 2.95 10^6/uL (4.35-5.55); RED CELL DISTRIBUTION WIDTH 18.5 % (11.5-14.0); WHITE BLOOD COUNT 9.4 10^3/uL (4.0-10.5)
[2019-11-07] MEDS: LIPASE/PROTEASE/AMYLASE 1 CAP CAPSULE.DR PO SCH ×2 (07:57→17:05)
[2019-11-07 08:07] LABS: GLUCOSE 46 mg/dL (75-110)
[2019-11-07 08:42] LABS: PLATELET COUNT 97 10^3/uL (150-450)
[2019-11-07] MEDS: LACTOBACILLUS ACIDOPHILUS 250 MG TAB PO SCH ×2 (09:40→17:05)
[2019-11-07] MEDS: FAMOTIDINE INJ/PF 20 MG/2 ML SDV IV SCH ×2 (09:40→17:05)
--- NOTE | 2019-11-07 10:07 | PDOC PROGRESS REPORT ---
Subjective Progress Note for:: 11/07/19 Subjective:: Patient states that he is doing fine. He complains of pain at the right side of the chest. He also has the same upper abdominal pain. He also has liquid stools. He said he is eating. No nausea no vomiting. Bar catheter was removed yesterday in an effort to remove everything that can cause infection. However patient has not been voiding too much spontaneously. He needed to have a straight cath done this morning and was able to obtain 500 mL of urine output. Yesterday ID was consulted, patient is being planned to have CLOVER tomorrow. Reason For Visit: DKA Physical Exam Vital Signs: Temp Pulse Resp BP Pulse Ox 97.7 F 84 13 97/54 L 98 11/07/19 03:31 11/07/19 07:35 11/07/19 07:35 11/07/19 07:35 11/07/19 07:35 Intake & Output 11/06/19 11/07/19 11/08/19 06:59 06:59 06:59 Intake Total 4070 2761 Output Total 2325 585 Balance 1745 2176 Weight 56 kg 59.6 kg Exam: General appearance: PRESENT: no acute distress, cooperative, well-developed, well-nourished Head exam: PRESENT: atraumatic, normocephalic Eye exam: PRESENT: conjunctiva slightly pale, PERRLA. ABSENT: scleral icterus Neck exam: ABSENT: JVD Respiratory exam: PRESENT: Diminished breath sounds. ABSENT: crackles, rales, rhonchi, unlabored, wheezes Cardiovascular exam: PRESENT: Regular rate rhythm -+S1, +S2. ABSENT: diastolic murmur, systolic murmur GI/Abdominal exam: PRESENT: normal bowel sounds, soft. Unchanged upper abd ominal tenderness ABSENT: guarding, mass Extremities exam: Trace edema Neurological exam: PRESENT: alert, awake, oriented to person, place and time. Skin exam: PRESENT: dry, warm, Results Laboratory Results: 11/07/19 06:59 11/07/19 06:59 11/06/19 11/07/19 11/07/19 11:41 06:59 06:59 WBC 9.4 RBC 2.95 L Hgb 8.1 L Hct 24.2 L MCV 82 MCH 27.3 MCHC 33.3 RDW 18.5 H Plt Count 97 L Sodium 141.9 144.4 Potassium 4.0 4.1 Chloride 114 H 117 H Carbon Dioxide 17 L 21 L Anion Gap 11 6 BUN 57 H 55 H Creatinine 2.17 H 2.08 H Est GFR ( Amer) 42 L 44 L Glucose 143 H 46 L Calcium 7.5 L 7.4 L 11/04/19 10:49 Blood Blood Culture (PCR) - Final Staphylococcus Aureus 11/04/19 18:46 Sputum Gram Stain - Final 11/02/19 10:50 Blood Blood Culture (PCR) - Final Staphylococcus Aureus 10/30/19 10/30/19 14:51 16:46 Troponin I Cancelled < 0.012 Impressions: Chest CT 11/03/19 00:00 IMPRESSION: Dense consolidation in the bilateral lower lobes worrisome for pneumonia. Multiple smaller ill-defined cavitary infiltrate/nodules in the upper lobes worrisome for septic emboli Trace bilateral pleural effusions Upper abdominal ascites. Calcified pancreas from old pancreatitis Renal Ultrasound 11/03/19 00:00 IMPRESSION: 1. CHRONIC MEDICAL RENAL DISEASE. CALCULUS IN THE LEFT KIDNEY. NO HYDRONEPHROSIS. 2. STONES/SLUDGE IN THE GALLBLADDER. Abdomen/Pelvis CT 11/06/19 00:00 IMPRESSION: 1. Bilateral, fairly dense pneumonias. May represent atypical infectious/ inflammatory process. Small right pleural effusion. Minimal left pleural effusion. 2. Free fluid in the abdomen. 3. Nonobstructing left renal calculus. 4. Chronic pancreatitis. Chest X-Ray 11/06/19 00:00 IMPRESSION: Unchanged radiographic appearance of the chest. Lumbar Spine MRI 11/06/19 00:00 IMPRESSION: 1. 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 Recommend radiographs of the lumbosacral spine. 2. There is some mild concentric disc bulge at L3-4 with mild central canal stenoses. No significant foraminal stenoses are seen. Thoracic Spine MRI 11/06/19 00:00 IMPRESSION: 1. Normal appearance about the thoracic spine. 2. Bilateral pleural and airspace disease as noted on recent chest x-ray. Thoracic esophagus is also dilated and partially fluid-filled. copyright 2010 [employer]- All Rights Reserved Assessment & Plan - Diagnosis (1) Acute kidney injury Is this a current diagnosis for this admission?: Yes Plan: Currently nonoliguric. Multifactorial causes secondary to initial DKA, hypotension, sepsis. Patient appears to have some proteinuria which would indicate an underlying microvascular disease in patient with diabetes. Patient creatinine was 0.93 in September 2019. Admitting creatinine was 3.94 currently improved to 2.08. Kidney function continues to improve daily. Patient does not require any renal replacement therapy. Continue treatment of acute conditions including bacteremia and maintain euvolemia. Monitor kidney function and urine output. Urinalysis(11/02) showed moderate blood, large leukocyte esterase but negative nitrite, protein of 30, WBC of 76 and RBC of 6. Urine protein to creatinine ratio is 1.3. Kidney ultrasound showed normal size kidneys with bilateral increased echogenicity, no hydronephrosis with 1.3 cm calculus on the left kidney and incidental findings of gallbladder sludge. (2) Urinary retention Is this a current diagnosis for this admission?: Yes Plan: Monitor for today, the choices to do straight cath every shift or replace the Bar catheter again. Discussed with patient's nurse today. (3) Abnormal CT scan, chest Is this a current diagnosis for this admission?: Yes Plan: Multiple upper lobe infiltrate/nodule, concerning for septic emboli. Bilateral mild pleural effusion. Defer to hospitalist. (4) Hypotension Is this a current diagnosis for this admission?: Yes Plan: Blood pressure appropriate for his body size. (5) Weight loss Is this a current diagnosis for this admission?: Yes Plan: This is associated with appetite loss with concomitant abdominal pain and diarrhea likely due to underlying chronic pancreatitis. However needs to rule out other causes of unintentional weight loss including malignancy. CT scan of the chest and abdomen did not show any evidence of malignancy. (6) Bacteremia Is this a current diagnosis for this admission?: Yes Plan: Positive for enterococcus and MSSA treated with vancomycin and currently on IV cefazolin. ID consulted. Plan to do CLOVER tomorrow. (7) Sepsis Qualifiers: Sepsis type: sepsis due to unspecified organism Sepsis acute organ dysfunction status: unspecified Qualified Code(s): A41.9 - Sepsis, unspecified organism Is this a current diagnosis for this admission?: Yes (8) MRSA (methicillin resistant Staphylococcus aureus) infection Is this a current diagnosis for this admission?: Yes Plan: Treated with vancomycin. (9) Abdominal pain Qualifiers: Abdominal location: generalized Qualified Code(s): R10.84 - Generalized abdominal pain Is this a current diagnosis for this admission?: Yes Plan: Likely due to pancreatitis. CT scan showed calcified pancreas. (10) Diabetic ketoacidosis Qualifiers: Diabetes mellitus type: type 1 Diabetes mellitus complication detail: without coma Qualified Code(s): E10.10 - Type 1 diabetes mellitus with ketoacidosis without coma Is this a current diagnosis for this admission?: Yes Plan: Resolving. Now with hyperchloremic metabolic acidosis as expected in the course of DKA. (11) Acute on chronic pancreatitis Is this a current diagnosis for this admission?: Yes (12) Anemia Qualifiers: Anemia type: iron deficiency Iron deficiency anemia type: other iron deficiency Qualified Code(s): D50.8 - Other iron deficiency anemias Is this a current diagnosis for this admission?: Yes Plan: IV Venofer given, 11/05 by hospitalist service. (13) DM hyperosmolarity type I Qualifiers: Diabetes mellitus complication detail: without coma Qualified Code(s): E10.69 - Type 1 diabetes mellitus with other specified complication Is this a current diagnosis for this admission?: Yes (14) Hypokalemia Is this a current diagnosis for this admission?: Yes Plan: Replace as necessary. Improved. (15) Hyponatremia Is this a current diagnosis for this admission?: Yes Plan: Resolved. - Time Time with patient: 15-25 minutes
--- NOTE | 2019-11-07 17:24 | PDOC PROGRESS REPORT ---
Subjective Progress Note for:: 11/07/19 Subjective:: Mr. Feng Granado is a 39-year-old -[place]ian male with a longstanding history of type 1 diabetes, with multiple admissions for DKA. Also has a history of pancreatitis, depression, hyperlipidemia, and hypertension. Presented to the ED via EMS was found by family members unconscious covered in his own feces. Upon arrival to the ED he was found to have a blood sugar when evaluated in the ED he was found to have a blood sugar of 1037, sodium 120.4, bicarb 6, creatinine 3.94, and a calcium of 6.8. He was given 4 L normal saline in the ED and started on an insulin drip per protocol. Initial blood gas pH 7.01 PCO2 of 26.6 PO2 122 HCO3 6.5. He is admitted to the ICU for further management of DKA. 10/31 The patient appears to be doing a little better. His blood sugar is better and he is off the insulin drip. His AG is now 13. he is on small dose of intermediate insulin and coverage. His renal fn. remains abnormal. We gave him a fair amount of fluid yesterday but creatinine remians about 3. Has received multiple doses of calcium for his low Ca++. When corrected for his low albumin irt is not really low or modestly so. he has grown out multiple + blood cultures with staph aureus and enterococcus the source unclear he did have a dirty urine on admission. I doid ask for an ECHO to r/o endocarditis and will send surveillance cultures in the near future as well. Hypothermia resolved. 11/01 the patient overall appears to be doing better. His blood sugar dropped overnight so I stopped his Lantus. he has been started on feeds. He is emaciated. his mother attributes it to his pancreatitis. I asked her what the etiology was but she was unsure. The patient reportedly has chronic diarrhea on the basis of this pancreatitis I am repeating his lipase. His CXR yesterday looked worse. He has bilateral lower lobe densities. Has been on Zosynand Vanco. I sent off request for sputum fungus and AFB. in addition, i requested HIV test for patient given his malnutrition and these infiltrates. I would like to extubate the patient today if possible. The patient haad multiple positive blood cultures for MRSA. He had an ECHO yesterday which did not suggest any evidence of a valvular vegetation. 11/02 DKA resolved. Blood sugars controlled. Lipase close to normal presently. There was some confusion originally concerning the patient's cultures. For reasons not completely understood the patient had 4 positive blood cultures for Staph aureus. The last of these was as late as yesterday. His ECHO was negative for endocarditis. The patient grew MRSA from his urine so it was not related. 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 There does not appear to be a drainable source of infx. I would ordinarilyr CT chest/abdo/pelvis given the bacteremia but the patient has ongoing significant renal dysfn. Transferred out of the ICU 11/04/19. Continued on IV fluids and abx 11/05/19. ID consulted suggest CLOVER, MRI and abdominal CT to look for source of bacteremia MSSA. Continued on cefazolin 11/06/19. MRI thoraco/lumbar negative for abscess. CT abdomen free fluid in the abdomen, non obstructing left renal calculus. chronic pancreatitis, bilateral pneumonia. 11/07/19. Patient was seen and examined at bedside. He still complains of chest pain, appetite is still fair. He is scheduled for CLOVER tomorrow. He has been afebrile. On D5 of ancef. Reason For Visit: DKA Physical Exam Vital Signs: Temp Pulse Resp BP Pulse Ox 97.8 F 88 18 100/80 99 11/07/19 16:07 11/07/19 16:07 11/07/19 16:07 11/07/19 16:07 11/07/19 16:07 Intake & Output 11/06/19 11/07/19 11/08/19 06:59 06:59 06:59 Intake Total 4070 2761 460 Output Total 2325 585 700 Balance 1745 2176 -240 Weight 56 kg 59.6 kg General appearance: PRESENT: mild distress, thin Head exam: PRESENT: atraumatic, normocephalic Eye exam: PRESENT: EOMI, PERRLA Mouth exam: PRESENT: moist Neck exam: PRESENT: full ROM Respiratory exam: PRESENT: clear to auscultation alfonso, symmetrical, unlabored. ABSENT: tachypnea Cardiovascular exam: PRESENT: RRR, +S1, +S2 GI/Abdominal exam: PRESENT: normal bowel sounds, soft. ABSENT: rebound, tenderness Extremities exam: ABSENT: +2 edema Musculoskeletal exam: PRESENT: full ROM Neurological exam: PRESENT: alert, awake, oriented to person, oriented to place, oriented to time, oriented to situation Psychiatric exam: PRESENT: normal mood Skin exam: PRESENT: normal color Results Laboratory Results: 11/07/19 06:59 11/07/19 06:59 11/07/19 11/07/19 06:59 06:59 WBC 9.4 RBC 2.95 L Hgb 8.1 L Hct 24.2 L MCV 82 MCH 27.3 MCHC 33.3 RDW 18.5 H Plt Count 97 L Sodium 144.4 Potassium 4.1 Chloride 117 H Carbon Dioxide 21 L Anion Gap 6 BUN 55 H Creatinine 2.08 H Est GFR ( Amer) 44 L Glucose 46 L Calcium 7.4 L 11/02/19 10:50 Blood Blood Culture (PCR) - Final Staphylococcus Aureus 11/02/19 10:50 Sputum Fungal Smear - Final 11/02/19 10:50 Sputum Fungal Smear - Final 11/04/19 18:46 Sputum Gram Stain - Final 11/04/19 18:46 Sputum Sputum Culture - Final Staphylococcus Aureus C.albicans/C.dubliniensis Normal Sissy Absent 11/04/19 10:49 Blood Blood Culture (PCR) - Final Staphylococcus Aureus 10/30/19 10/30/19 14:51 16:46 Troponin I Cancelled < 0.012 Impressions: Chest CT 11/03/19 00:00 IMPRESSION: Dense consolidation in the bilateral lower lobes worrisome for pneumonia. Multiple smaller ill-defined cavitary infiltrate/nodules in the upper lobes worrisome for septic emboli Trace bilateral pleural effusions Upper abdominal ascites. Calcified pancreas from old pancreatitis Renal Ultrasound 11/03/19 00:00 IMPRESSION: 1. CHRONIC MEDICAL RENAL DISEASE. CALCULUS IN THE LEFT KIDNEY. NO HYDRONEPHROSIS. 2. STONES/SLUDGE IN THE GALLBLADDER. Abdomen/Pelvis CT 11/06/19 00:00 IMPRESSION: 1. Bilateral, fairly dense pneumonias. May represent atypical infectious/ inflammatory process. Small right pleural effusion. Minimal left pleural effusion. 2. Free fluid in the abdomen. 3. Nonobstructing left renal calculus. 4. Chronic pancreatitis. Chest X-Ray 11/06/19 00:00 IMPRESSION: Unchanged radiographic appearance of the chest. Lumbar Spine MRI 11/06/19 00:00 IMPRESSION: 1. 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 Recommend radiographs of the lumbosacral spine. 2. There is some mild concentric disc bulge at L3-4 with mild central canal stenoses. No significant foraminal stenoses are seen. Thoracic Spine MRI 11/06/19 00:00 IMPRESSION: 1. Normal appearance about the thoracic spine. 2. Bilateral pleural and airspace disease as noted on recent chest x-ray. Thoracic esophagus is also dilated and partially fluid-filled. copyright 2011 [employer]- All Rights Reserved Assessment and Plan - Diagnosis (1) Bacteremia Is this a current diagnosis for this admission?: Yes Plan: Blood culture (10/30/19; 1 bottle each set) MSSA and Enterococcus faecalis Urine culture (10/30/19) MSSA Urine culture (10/31/19) MRSA Blood culture (11/02/19; 1/4 bottles) MSSA and Enterococcus faecalis Blood culture (11/04/19) No growth after 48 hours. TTE negative for vegetations CXR (10/29) RML PNA CT Chest (11/02) very dense consolidation throughout bilateral lower lobes and lateral segment of right middle lobe worrisome for pneumonia. More prominent than 10/29. Multifocal small cavity infiltrates/nodules present to the bilateral upper lobes and lateral aspect of the left lower lobe worrisome for septic emboli. CT abdomen/pelvis bilateral, fairly dense pneumonias. Small right pleural effusion. Minimal left pleural effusion. Free fluid in the abdomen. Nonobstructing left renal calculus. Chronic pancreatitis. MRI Thoracic normal appearance thoracic spine. 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 Mild concentric disc bulge at L3-L4 with mild central canal stenosis no significant foraminal stenosis was seen. CLOVER pending. Infectious disease is consulted. Recommended further evaluation via images to establish bacteremia source. -Repeat blood cultures 11/07/19, results pending. -Folly catheter removed, repeat UA with urine culture. -Advised on continued treatment with Cefazolin, duration of treatment regimen unknown at this time. (2) Back pain Qualifiers: Back pain location: thoracic back pain Chronicity: acute Back pain laterality: midline Qualified Code(s): M54.6 - Pain in thoracic spine Is this a current diagnosis for this admission?: Yes Plan: Ongoing complaint of thoracic and lumbar pain, with notable increase. He is nontender to palpation of the thoracic and lumbar spine on exam. MRI Thoracic normal appearance thoracic spine. 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 Mild concentric disc bulge at L3-L4 with mild central canal stenosis no significant foraminal narrowing. No signs of osteomyelitis or abscess mentioned. Currently treating with Percocet. (3) Pneumonitis Is this a current diagnosis for this admission?: Yes Plan: The patient has persistent infiltrates R> L in the midlung. The density on the right is fairly distinct and has coalesced. The patient is not coughing, nor short of breath. CT Chest (10/03/19) more concerning for pneumonia with septic emboli. CXR unchanged on cefazolin for MSSA awaiting CLOVER (4) Acute kidney injury Is this a current diagnosis for this admission?: Yes Plan: Improving; Cr 2.55 -> 2.17>2.08. BUN 66 -> 57. Baseline Cr 0.9/BUN 14 Adequate urine output; ~2L daily Renal US: chronic renal disease, calculus left kidney, no dydronephrosis. Followed by Dr. Bazzi, nephrology. -Renal replacement therapy no indicated at this time. -Maintain euvolemia. Avoid nephrotoxic medications as able; renally dose when appropriate. Continue gentle IVF Strict I&Os Daily weights (5) Diabetic ketoacidosis Qualifiers: Diabetes mellitus type: type 1 Diabetes mellitus complication detail: without coma Qualified Code(s): E10.10 - Type 1 diabetes mellitus with ketoacidosis without coma Is this a current diagnosis for this admission?: Yes Plan: DKA is resolved. Now advanced to Consistent Carb diet. Humalog for sliding scale coverage. Monitor blood sugar. (6) Diabetes mellitus Qualifiers: Diabetes mellitus type: type 1 Diabetes mellitus complication status: with ketoacidosis Diabetes mellitus complication detail: without coma Qualified Code(s): E10.10 - Type 1 diabetes mellitus with ketoacidosis without coma Is this a current diagnosis for this admission?: Yes Plan: His most recent A1c was 13.1%. Dietitian consulted and he was placed on a consistent carb diet. Accuchecks before meals and at bedtime with Humalog for sliding scale coverage. Glycemic protocol is in place. (7) Acute on chronic pancreatitis Is this a current diagnosis for this admission?: Yes Plan: - resolved - tolerating diet (8) Sepsis Qualifiers: Sepsis type: sepsis due to unspecified organism Sepsis acute organ dysfunction status: unspecified Qualified Code(s): A41.9 - Sepsis, unspecified organism Is this a current diagnosis for this admission?: Yes Plan: This is resolved at this time suspect secondary to pneumonia and bacteremia. He was initially treated with vancomycin and Zosyn and was transitioned to cefazolin. Infectious disease was consulted and recommended continued treatment with cefazolin D5 of cefazolin. Treatment and further evaluation otherwise as stated above. (9) Severe protein-calorie malnutrition Is this a current diagnosis for this admission?: Yes Plan: BMI 18.2 with significant weight loss of approximately 17 kg over the past year. Noted increase in his appetite. He was seen by a registered dietitian. 24 hour Calorie count ongoing Consider Remeron/Megace/Marinol for appetite stimulation. (10) Urinary retention Is this a current diagnosis for this admission?: Yes (11) Polysubstance abuse Is this a current diagnosis for this admission?: Yes Plan: Patient has a history of THC and cocaine use. He denies IV drug use at this time. Urine drug screen on admission was negative. Provided patient with education and encouragement regarding abstinence from drug use. Otherwise no treatment or attention necessary at this time. - Plan Summary Summary: Patient is a 39-year-old male known IV drug use came in with DKA and sepsis secondary to MSSA. DKA has resolved. source unclear for MSSA bacteremia. TTE negative, MRI thoracolumbar negative for abscess or osteomyelitis, awaiting nonspecific Transesophageal echocardiogram. CT chest findings concern needing for septic emboli. Currently on day 5 of cefazolin. ID following - Time Time Spent with patient: 35 or more minutes Anticipated Discharge Disposition: Home, Self Care Anticipated Discharge Timeframe: to be determined
[2019-11-08] MEDS: OXYCODONE-ACETAMINOPHEN 5-325 MG TABLET PO PRN ×3 (01:24→22:07)
[2019-11-08] MEDS: PROMETHAZINE HCL INJ 25 MG/1 ML VIAL IV PRN ×4 (01:25→22:26)
[2019-11-08] MEDS: CEFAZOLIN SODIUM 2 GM in DEXTROSE 5%-WATER 100 ML IV SCH ×3 (01:46→17:18)
[2019-11-08] MEDS: RINGERS SOLUTION,LACTATED 1,000 ML IV PRN ×2 (06:58→17:18)
[2019-11-08] MEDS ORDERED: GLUCAGON,HUMAN RECOMB 1 MG INJ SUBCUT PRN (07:43)
[2019-11-08 08:12] LABS: ABSOLUTE EOSINOPHILS # (AUTO) 0.2 10^3/uL (0.0-0.6); ABSOLUTE LYMPHOCYTES (AUTO) 1.2 10^3/uL (0.5-4.7); ABSOLUTE MONOCYTES (AUTO) 0.8 10^3/uL (0.1-1.4); ABSOLUTE NEUT (AUTO) 7.7 10^3/uL (1.7-8.2); BASOPHILS % (AUTO) 0.3 % (0-2); HEMATOCRIT 24.4 % (37.9-51.0); HEMOGLOBIN 8.4 g/dL (13.5-17.0); MEAN CORPUSCULAR HEMOGLOBIN 28.3 pg (27.0-33.4); MEAN CORPUSCULAR HGB CONC 34.3 g/dL (32.0-36.0); MEAN CORPUSCULAR VOLUME 83 fl (80-97); MONOCYTES % (AUTO) 7.6 % (3-13); PLATELET COUNT 112 10^3/uL (150-450); RED BLOOD COUNT 2.96 10^6/uL (4.35-5.55); SEGMENTED NEUTROPHILS % (AUTO) 78.1 % (42-78); TOTAL CELLS COUNTED % (AUTO) 100 %; WHITE BLOOD COUNT 9.8 10^3/uL (4.0-10.5)
[2019-11-08] MEDS: DEXTROSE 50%-WATER 25 GM/50 ML DISP.SYRIN IV PRN (08:31)
[2019-11-08] MEDS: FAMOTIDINE INJ/PF 20 MG/2 ML SDV IV SCH ×2 (09:16→17:18)
[2019-11-08] MEDS: INSULIN REG, HUMAN 100 UNIT/ML 3 ML VIAL (PYX) SUBCUT SCH ×4 (09:29→22:06)
[2019-11-08] MEDS: LIPASE/PROTEASE/AMYLASE 1 CAP CAPSULE.DR PO SCH ×2 (10:46→17:18)
[2019-11-08] MEDS: LACTOBACILLUS ACIDOPHILUS 250 MG TAB PO SCH ×2 (10:46→17:18)
--- NOTE | 2019-11-08 11:04 | Progress Note ---
Provider Note Provider Note: [facility] Telephone Advice Follow Up: Update: Patient evaluated due to persistent MSSA bacteremia. Blood cultures have been positive since 10/29. TTE was negative for valvular vegetations. MRI of t horacic and lumbar spine negative for epidural abscess, discitis or vertebral osteomyelitis. CT scan of abdomen and pelvis negative for intra abdominal or pelvic abscess, no prostate enlargement. He does have pneumonia and septic pulmonary emboli. He continues on cefazolin, now full dose. All central lines and urinary catheter removed. He is afebrile, HD stable with O2 sat 100%. Vital Signs: Temp Pulse Resp BP Pulse Ox 97.4 F 69 15 102/74 100 11/08/19 08:11 11/08/19 07:15 11/08/19 07:15 11/08/19 07:15 11/08/19 07:15 Intake & Output 11/07/19 11/08/19 11/09/19 06:59 06:59 06:59 Intake Total 2761 3100 Output Total 585 3150 Balance 2176 -50 Weight 59.6 kg 58.4 kg Weight/Height Weight 58.4 kg Height 5 ft 9 in Laboratories: 11/08/19 06:50 MCV 83 fl (80-97) 11/08/19 06:50 MCH 28.3 pg (27.0-33.4) 11/08/19 06:50 MCHC 34.3 g/dL (32.0-36.0) 11/08/19 06:50 RDW 18.0 % (11.5-14.0) H 11/08/19 06:50 Seg Neutrophils % 78.1 % (42-78) H 11/08/19 06:50 Retic Count (auto) 0.51 % (0.66-2.85) L 11/05/19 05:15 Carbonic Acid 0.73 mmol/L (1.05-1.35) L 11/02/19 08:40 HCO3/H2CO3 Ratio 24:1 11/02/19 08:40 ABG pH 7.49 (7.35-7.45) H 11/02/19 08:40 ABG pCO2 24.3 mmHg (35-45) L 11/02/19 08:40 ABG pO2 61.4 mmHg (80-100) L 11/02/19 08:40 ABG HCO3 18.2 mmol/L (20-24) L 11/02/19 08:40 ABG O2 Saturation 93.8 % (94-98) L 11/02/19 08:40 ABG Base Excess -3.9 mmol/L 11/02/19 08:40 VBG pH 6.93 (7.30-7.42) L* 10/31/19 05:23 VBG pCO2 26.8 mmHg (35-63) L 10/31/19 05:23 VBG HCO3 5.4 mmol/L (20-32) L 10/31/19 05:23 VBG Base Excess -26.2 mmol/L 10/31/19 05:23 FiO2 35% 11/02/19 08:40 Chloride 117 mmol/L (98-107) H 11/07/19 06:59 Carbon Dioxide 21 mmol/L (22-30) L 11/07/19 06:59 Anion Gap 6 (5-19) 11/07/19 06:59 Est GFR ( Amer) 44 (>60) L 11/07/19 06:59 Est GFR (Non-Af Amer) Cancelled 10/31/19 21:30 Glucose 46 mg/dL (75-110) L 11/07/19 06:59 Lactic Acid 4.1 mmol/L (0.7-2.1) H 10/31/19 05:23 Calcium 7.4 mg/dL (8.4-10.2) L 11/07/19 06:59 Phosphorus 3.4 mg/dL (2.5-4.5) 11/02/19 05:40 Magnesium 1.5 mg/dL (1.6-2.3) L 11/02/19 05:40 Iron 19.3 ug/dL (49-181) L 11/05/19 05:15 TIBC 164 ug/dL (250-450) L 11/05/19 05:15 % Saturation 12 % 11/05/19 05:15 Ferritin 242.00 ng/mL (17.9-464.0) 11/05/19 05:15 Total Bilirubin 0.6 mg/dL (0.2-1.3) 11/02/19 05:40 AST 22 U/L (17-59) 11/02/19 05:40 Alkaline Phosphatase 160 U/L (38-126) H 11/02/19 05:40 C-Reactive Protein 84.8 mg/L (<10.0) H 11/04/19 06:30 Total Protein 4.9 g/dL (6.3-8.2) L 11/02/19 05:40 Albumin 1.8 g/dL (3.5-5.0) L 11/02/19 05:40 Lipase 316.0 U/L (23-300) H 11/02/19 05:40 Vitamin B12 > 1000.0 pg/mL (239-931) H 11/05/19 05:15 Folate 4.51 ng/mL (>2.76) 11/05/19 05:15 TSH 1.32 uIU/mL (0.47-4.68) 10/31/19 04:05 Free T4 1.03 ng/dL (0.78-2.19) 10/31/19 04:05 Free T3 pg/mL 1.64 pg/mL (2.77-5.27) L 10/31/19 04:05 Urine Color YELLOW 11/03/19 18:00 Urine Appearance CLOUDY 11/03/19 18:00 Urine pH 5.0 (5.0-9.0) 11/03/19 18:00 Ur Specific [place] 1.011 11/03/19 18:00 Urine Protein 30 mg/dL (NEGATIVE) H 11/03/19 18:00 Urine Glucose (UA) NEGATIVE mg/dL (NEGATIVE) 11/03/19 18:00 Urine Ketones NEGATIVE mg/dL (NEGATIVE) 11/03/19 18:00 Urine Blood MODERATE (NEGATIVE) H 11/03/19 18:00 Urine Nitrite NEGATIVE (NEGATIVE) 11/03/19 18:00 Ur Leukocyte Esterase LARGE (NEGATIVE) H 11/03/19 18:00 Urine WBC (Auto) 76 /HPF 11/03/19 18:00 Urine RBC (Auto) 6 /HPF 11/03/19 18:00 Stool Occult Blood POSITIVE (NEGATIVE) 11/04/19 18:46 Stl C.difficile Tox PCR NEGATIVE (NEGATIVE) 11/01/19 17:40 Blood Type A POSITIVE 11/05/19 10:12 Antibody Screen NEGATIVE 11/05/19 10:12 11/02/19 10:50 Blood Blood Culture (PCR) - Final Staphylococcus Aureus 11/02/19 10:50 Blood Blood Culture - Final Staphylococcus Aureus 11/04/19 10:49 Blood Blood Culture (PCR) - Final Staphylococcus Aureus 11/04/19 10:49 Blood Blood Culture - Final Staphylococcus Aureus 11/06/19 21:28 Blood Blood Culture (PCR) - Final Staphylococcus Aureus 11/02/19 10:50 Sputum Fungal Smear - Final 11/02/19 10:50 Sputum Fungal Smear - Final 11/04/19 18:46 Sputum Gram Stain - Final 11/04/19 18:46 Sputum Sputum Culture - Final Staphylococcus Aureus C.albicans/C.dubliniensis Normal Sissy Absent 10/30/19 10/30/19 14:51 16:46 Troponin I Cancelled < 0.012 Radiology: Chest CT 11/03/19 00:00 IMPRESSION: Dense consolidation in the bilateral lower lobes worrisome for pneumonia. Multiple smaller ill-defined cavitary infiltrate/nodules in the upper lobes worrisome for septic emboli Trace bilateral pleural effusions Upper abdominal ascites. Calcified pancreas from old pancreatitis Renal Ultrasound 11/03/19 00:00 IMPRESSION: 1. CHRONIC MEDICAL RENAL DISEASE. CALCULUS IN THE LEFT KIDNEY. NO HYD RONEPHROSIS. 2. STONES/SLUDGE IN THE GALLBLADDER. Abdomen/Pelvis CT 11/06/19 00:00 IMPRESSION: 1. Bilateral, fairly dense pneumonias. May represent atypical infectious/ inflammatory process. Small right pleural effusion. Minimal left pleural effusion. 2. Free fluid in the abdomen. 3. Nonobstructing left renal calculus. 4. Chronic pancreatitis. Chest X-Ray 11/06/19 00:00 IMPRESSION: Unchanged radiographic appearance of the chest. Lumbar Spine MRI 11/06/19 00:00 IMPRESSION: 1. 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 Recommend radiographs of the lumbosacral spine. 2. There is some mild concentric disc bulge at L3-4 with mild central canal stenoses. No significant foraminal stenoses are seen. Thoracic Spine MRI 11/06/19 00:00 IMPRESSION: 1. Normal appearance about the thoracic spine. 2. Bilateral pleural and airspace disease as noted on recent chest x-ray. Thoracic esophagus is also dilated and partially fluid-filled. Assessment and Recommendations: Patient evaluated due to complicated MSSA bacteremia without specific source identified. He continues bacteremic, most recent culture from 11/05 positive 1 set. Potential metastatic sites already ruled out. He does have pneumonia with septic pulmonary emboli, at risk of lung abscess, parapneumonic effusion and empyema. Can discuss with radiology for possible thoracentesis if indicated (bilateral pleural effusions, unclear if able to tap). CLOVER also recommended due to high suspicion for endocarditis due to septic pulmonary emboli or perivalvular abscess in the setting of persistent bacteremia. Continue cefazolin 2g IV every 8 hr and repeat blood cultures in 48 hr. Consider transfer to a tertiary center with ID service if new blood cultures are positive and rest of work up negative. Please call back if questions or updates. Rosa Maria Richter MD [facility] [phone]
[2019-11-08 11:26] LABS: ALBUMIN 1.7 g/dL (3.5-5.0); ALKALINE PHOSPHATASE 116 U/L (38-126); ANION GAP 9 (5-19); ASPARTATE AMINO TRANSFERASE 13 U/L (17-59); BILIRUBIN,DIRECT 0.3 mg/dL (0.0-0.4); BILIRUBIN,TOTAL 0.3 mg/dL (0.2-1.3); BLOOD UREA NITROGEN 48 mg/dL (7-20); CALCIUM 7.3 mg/dL (8.4-10.2); CARBON DIOXIDE 18 mmol/L (22-30); CHLORIDE 115 mmol/L (98-107); TOTAL PROTEIN 5.1 g/dL (6.3-8.2)
[2019-11-08 11:54] LABS: GLUCOSE 46 mg/dL (75-110)
--- NOTE | 2019-11-08 12:41 | PDOC PROGRESS REPORT ---
Subjective Progress Note for:: 11/08/19 Subjective:: Patient is not able to pass urine on his own without any catheterization. He passed about 1050 mL of urine output for the past 24 hours. He has the same complaints of right-sided chest pain, left-sided chest pain, back pain and abdominal pain. He continues to have nausea and poor appetite. Reason For Visit: DKA Physical Exam Vital Signs: Temp Pulse Resp BP Pulse Ox 98.2 F 71 17 96/70 L 100 11/08/19 11:25 11/08/19 11:25 11/08/19 11:25 11/08/19 11:25 11/08/19 11:25 Intake & Output 11/07/19 11/08/19 11/09/19 06:59 06:59 06:59 Intake Total 2761 3100 Output Total 585 3150 Balance 2176 -50 Weight 59.6 kg 58.4 kg Exam: General appearance: PRESENT: no acute distress, cooperative, cachectic Head exam: PRESENT: atraumatic, normocephalic Eye exam: PRESENT: conjunctiva pink, PERRLA. ABSENT: scleral icterus Neck exam: ABSENT: JVD Respiratory exam: PRESENT: Diminished breath sounds. ABSENT: crackles, rales, rhonchi, unlabored, wheezes Cardiovascular exam: PRESENT: Regular rate rhythm -+S1, +S2. ABSENT: diastolic murmur, systolic murmur GI/Abdominal exam: PRESENT: normal bowel sounds, soft. ABSENT: guarding, mass, tenderness Extremities exam: ABSENT: No edema Neurological exam: PRESENT: alert, awake, oriented to person, place and time. Skin exam: PRESENT: dry, warm, Results Laboratory Results: 11/08/19 06:50 11/08/19 06:50 11/08/19 11/08/19 06:50 06:50 WBC 9.8 RBC 2.96 L Hgb 8.4 L Hct 24.4 L MCV 83 MCH 28.3 MCHC 34.3 RDW 18.0 H Plt Count 112 L Seg Neutrophils % 78.1 H Sodium 141.6 Potassium 4.0 Chloride 115 H Carbon Dioxide 18 L Anion Gap 9 BUN 48 H Creatinine 1.60 H Est GFR ( Amer) 59 L Glucose 46 L Calcium 7.3 L Total Bilirubin 0.3 AST 13 L Alkaline Phosphatase 116 Total Protein 5.1 L Albumin 1.7 L 11/02/19 10:50 Blood Blood Culture (PCR) - Final Staphylococcus Aureus 11/02/19 10:50 Blood Blood Culture - Final Staphylococcus Aureus 11/04/19 10:49 Blood Blood Culture (PCR) - Final Staphylococcus Aureus 11/04/19 10:49 Blood Blood Culture - Final Staphylococcus Aureus 11/06/19 21:28 Blood Blood Culture (PCR) - Final Staphylococcus Aureus 11/02/19 10:50 Sputum Fungal Smear - Final 11/02/19 10:50 Sputum Fungal Smear - Final 11/04/19 18:46 Sputum Gram Stain - Final 11/04/19 18:46 Sputum Sputum Culture - Final Staphylococcus Aureus C.albicans/C.dubliniensis Normal Sissy Absent 10/30/19 10/30/19 14:51 16:46 Troponin I Cancelled < 0.012 Impressions: Chest CT 11/03/19 00:00 IMPRESSION: Dense consolidation in the bilateral lower lobes worrisome for pneumonia. Multiple smaller ill-defined cavitary infiltrate/nodules in the upper lobes worrisome for septic emboli Trace bilateral pleural effusions Upper abdominal ascites. Calcified pancreas from old pancreatitis Renal Ultrasound 11/03/19 00:00 IMPRESSION: 1. CHRONIC MEDICAL RENAL DISEASE. CALCULUS IN THE LEFT KIDNEY. NO HYDRONEPHROSIS. 2. STONES/SLUDGE IN THE GALLBLADDER. Abdomen/Pelvis CT 11/06/19 00:00 IMPRESSION: 1. Bilateral, fairly dense pneumonias. May represent atypical infectious/ inflammatory process. Small right pleural effusion. Minimal left pleural effusion. 2. Free fluid in the abdomen. 3. Nonobstructing left renal calculus. 4. Chronic pancreatitis. Chest X-Ray 11/06/19 00:00 IMPRESSION: Unchanged radiographic appearance of the chest. Lumbar Spine MRI 11/06/19 00:00 IMPRESSION: 1. 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 Recommend radiographs of the lumbosacral spine. 2. There is some mild concentric disc bulge at L3-[address] mild central canal st enoses. No significant foraminal stenoses are seen. Thoracic Spine MRI 11/06/19 00:00 IMPRESSION: 1. Normal appearance about the thoracic spine. 2. Bilateral pleural and airspace disease as noted on recent chest x-ray. Thoracic esophagus is also dilated and partially fluid-filled. copyright 2010 [employer]- All Rights Reserved Assessment & Plan - Diagnosis (1) Acute kidney injury Is this a current diagnosis for this admission?: Yes Plan: Currently nonoliguric. Multifactorial causes secondary to initial DKA, hypotension, sepsis. Patient appears to have some proteinuria which would indicate an underlying microvascular disease in patient with diabetes. Patient creatinine was 0.93 in September 2019. Admitting creatinine was 3.94 currently improved to 1.6. Kidney function continues to improve daily. Patient does not require any renal replacement therapy. Continue treatment of acute conditions including bacteremia and maintain euvolemia. Monitor kidney function and urine output. Urinalysis(11/02) showed moderate blood, large leukocyte esterase but negative nitrite, protein of 30, WBC of 76 and RBC of 6. Urine protein to creatinine ratio is 1.3. Kidney ultrasound showed normal size kidneys with bilateral increased echogenicity, no hydronephrosis with 1.3 cm calculus on the left kidney and incidental findings of gallbladder sludge. I expect kidney function to continue to improve from here. Continue current management. I will sign off at this time. Please call us back if you have any other questions or if we can be of further help. (2) Urinary retention Is this a current diagnosis for this admission?: Yes Plan: Improved. (3) Abnormal CT scan, chest Is this a current diagnosis for this admission?: Yes Plan: Multiple upper lobe infiltrate/nodule, concerning for septic emboli. Bilateral mild pleural effusion. Defer to hospitalist. (4) Hypotension Is this a current diagnosis for this admission?: Yes Plan: Blood pressure appropriate for his body size. (5) Weight loss Is this a current diagnosis for this admission?: Yes Plan: This is associated with appetite loss with concomitant abdominal pain and diarrhea likely due to underlying chronic pancreatitis. However needs to rule out other causes of unintentional weight loss including malignancy. CT scan of the chest and abdomen did not show any evidence of malignancy. (6) Bacteremia Is this a current diagnosis for this admission?: Yes Plan: Positive for enterococcus and MSSA treated with vancomycin and currently on IV cefazolin. ID consulted. Plan to do CLOVER . (7) Sepsis Qualifiers: Sepsis type: sepsis due to unspecified organism Sepsis acute organ dysfunction status: unspecified Qualified Code(s): A41.9 - Sepsis, unspecified organism Is this a current diagnosis for this admission?: Yes (8) MRSA (methicillin resistant Staphylococcus aureus) infection Is this a current diagnosis for this admission?: Yes Plan: Treated with vancomycin. (9) Abdominal pain Qualifiers: Abdominal location: generalized Qualified Code(s): R10.84 - Generalized abdominal pain Is this a current diagnosis for this admission?: Yes Plan: Likely due to pancreatitis. CT scan showed calcified pancreas. (10) Diabetic ketoacidosis Qualifiers: Diabetes mellitus type: type 1 Diabetes mellitus complication detail: without coma Qualified Code(s): E10.10 - Type 1 diabetes mellitus with ketoacidosis without coma Is this a current diagnosis for this admission?: Yes Plan: Resolving. Now with hyperchloremic metabolic acidosis as expected in the course of DKA. (11) Acute on chronic pancreatitis Is this a current diagnosis for this admission?: Yes (12) Anemia Qualifiers: Anemia type: iron deficiency Iron deficiency anemia type: other iron deficiency Qualified Code(s): D50.8 - Other iron deficiency anemias Is this a current diagnosis for this admission?: Yes Plan: IV Venofer given, 11/05 by hospitalist service. (13) DM hyperosmolarity type I Qualifiers: Diabetes mellitus complication detail: without coma Qualified Code(s): E10.69 - Type 1 diabetes mellitus with other specified complication Is this a current diagnosis for this admission?: Yes (14) Hypokalemia Is this a current diagnosis for this admission?: Yes Plan: Resolved. (15) Hyponatremia Is this a current diagnosis for this admission?: Yes Plan: Resolved. - Notes Notes: We will sign off.
[2019-11-08 13:25] LABS: APPEARANCE,URINE SLIGHTLY-CLOUDY; BILIRUBIN,URINE NEGATIVE (NEGATIVE); COLOR,URINE STRAW; GLUCOSE, URINE NEGATIVE (NEGATIVE); KETONES,URINE NEGATIVE (NEGATIVE); PROTEIN,URINE NEGATIVE (NEGATIVE); UROBILINOGEN,URINE NEGATIVE mg/dL (<2.0)
--- NOTE | 2019-11-08 13:57 | RADIOLOGY REPORT (SQ) ---
EXAM DESCRIPTION: NM GALLIUM WHL BDY 2 OR + DAYS IMAGES COMPLETED DATE/TIME: 11/08/2019 12:07 pm REASON FOR STUDY: FUO, MULT POSITIVE BLOOD CULTURES, MSSA, SEPSIS COMPARISON: None. RADIONUCLIDE AND DOSE: 5.45 mCi gallium 67 tagged white blood cells. ADDITIONAL DRUGS AND DOSES: None. TECHNIQUE: Patient's white blood cells were tagged and injected intravenously. Whole-body planar im aging at 48 hours. LIMITATIONS: Leukopenia. FINDINGS: There is abnormal uptake in the lungs, left greater than right. No other abnormal uptake. IMPRESSION: Abnormal uptake in the lungs consistent with pneumonia. No evidence of other infection source. TECHNICAL DOCUMENTATION: JOB ID: [id number] 2010 [employer]- All Rights Reserved Reading location - IP/workstation name: [email or web address]
--- NOTE | 2019-11-08 18:10 | PDOC PROGRESS REPORT ---
Subjective Progress Note for:: 11/08/19 Subjective:: Mr. Feng Granado is a 39-year-old -[place] male with a longstanding history of type 1 diabetes, with multiple admissions for DKA. Also has a history of pancreatitis, depression, hyperlipidemia, and hypertension. Presented to the ED via EMS was found by family members unconscious covered in his own feces. Upon arrival to the ED he was found to have a blood sugar when evaluated in the ED he was found to have a blood sugar of 1037, sodium 120.4, bicarb 6, creatinine 3.94, and a calcium of 6.8. He was given 4 L normal saline in the ED and started on an insulin drip per protocol. Initial blood gas pH 7.01 PCO2 of 26.6 PO2 122 HCO3 6.5. He is admitted to the ICU for further management of DKA. 10/31 The patient appears to be doing a little better. His blood sugar is better and he is off the insulin drip. His AG is now 13. he is on small dose of intermediate insulin and coverage. His renal fn. remains abnormal. We gave him a fair amount of fluid yesterday but creatinine remians about 3. Has received multiple doses of calcium for his low Ca++. When corrected for his low albumin irt is not really low or modestly so. he has grown out multiple + blood cultures with staph aureus and enterococcus the source unclear he did have a dirty urine on admission. I doid ask for an ECHO to r/o endocarditis and will send surveillance cultures in the near future as well. Hypothermia resolved. 11/01 the patient overall appears to be doing better. His blood sugar dropped overnight so I stopped his Lantus. he has been started on feeds. He is emaciated. his mother attributes it to his pancreatitis. I asked her what the etiology was but she was unsure. The patient reportedly has chronic diarrhea on the basis of this pancreatitis I am repeating his lipase. His CXR yesterday looked worse. He has bilateral lower lobe densities. Has been on Zosynand Vanco. I sent off request for sputum fungus and AFB. in addition, i requested HIV test for patient given his malnutrition and these infiltrates. I would like to extubate the patient today if possible. The patient haad multiple positive blood cultures for MRSA. He had an ECHO yesterday which did not suggest any evidence of a valvular vegetation. 11/02 DKA resolved. Blood sugars controlled. Lipase close to normal presently. There was some confusion originally concerning the patient's cultures. For reasons not completely understood the patient had 4 positive blood cultures for Staph aureus. The last of these was as late as yesterday. His ECHO was negative for endocarditis. The patient grew MRSA from his urine so it was not related. Despite the negative ECHO this persistent bacteremia regis qualify the patient for flume maker abx therapy ( at least 4 weeks). There does not appear to be a drainable source of infx. I would ordinarilyr CT chest/abdo/pelvis given the bacteremia but the patient has ongoing significant renal dysfn. Transferred out of the ICU 11/04/19. Continued on IV fluids and abx 11/05/19. ID consulted suggest CLOVER, MRI and abdominal CT to look for source of bacteremia MSSA. Continued on cefazolin 11/06/19. MRI thoraco/lumbar negative for abscess. CT abdomen free fluid in the abdomen, non obstructing left renal calculus. chronic pancreatitis, bilateral pneumonia. 11/07/19. Patient was seen and examined at bedside. He still complains of chest pain, appetite is still fair. He is scheduled for CLOVER tomorrow. He has been afebrile. On D5 of ancef. 11/08/19. He was seen and examined at bedside. He complains of pain on his left side along his anterior axillary line, worse when he takes a deep breath. His appetite is still poor. He has been afebrile, no cough, no complains of SOB. CLOVER was note done today, rescheduled for tomorrow. He is on D6 of Ancef prior to that he received total of 2 days zosyn. Reason For Visit: DKA Physical Exam Vital Signs: Temp Pulse Resp BP Pulse Ox 98.1 F 90 17 101/79 100 11/08/19 16:00 11/08/19 16:00 11/08/19 16:00 11/08/19 16:11/08/19 16:00 Intake & Output 11/07/19 11/08/19 11/09/19 06:59 06:59 06:59 Intake Total 2761 3100 1000 Output Total 585 3150 150 Balance 2176 -50 850 Weight 59.6 kg 58.4 kg General appearance: PRESENT: no acute distress, cooperative, thin, other - weak and frail looking Head exam: PRESENT: atraumatic, normocephalic Eye exam: PRESENT: EOMI, PERRLA Mouth exam: PRESENT: moist Neck exam: PRESENT: full ROM Respiratory exam: PRESENT: chest wall tenderness - left sided along anterior axillary line, clear to auscultation alfonso, symmetrical, unlabored. ABSENT: tachypnea, wheezes Cardiovascular exam: PRESENT: RRR, +S1, +S2 Pulses: PRESENT: +2 pedal pulses bilateral GI/Abdominal exam: PRESENT: normal bowel sounds, soft. ABSENT: rebound, tenderness Extremities exam: PRESENT: full ROM Musculoskeletal exam: PRESENT: full ROM Neurological exam: PRESENT: alert, awake, oriented to person, oriented to place, oriented to time, oriented to situation Psychiatric exam: PRESENT: normal mood Skin exam: PRESENT: normal color Results Laboratory Results: 11/08/19 06:50 11/08/19 06:50 11/08/19 11/08/19 11/08/19 06:50 06:50 11:42 WBC 9.8 RBC 2.96 L Hgb 8.4 L Hct 24.4 L MCV 83 MCH 28.3 MCHC 34.3 RDW 18.0 H Plt Count 112 L Seg Neutrophils % 78.1 H Sodium 141.6 Potassium 4.0 Chloride 115 H Carbon Dioxide 18 L Anion Gap 9 BUN 48 H Creatinine 1.60 H Est GFR ( Amer) 59 L Glucose 46 L Calcium 7.3 L Total Bilirubin 0.3 AST 13 L Alkaline Phosphatase 116 Total Protein 5.1 L Albumin 1.7 L Urine Color STRAW Urine Appearance SLIGHTLY-CLOUDY Urine pH 5.0 Ur Specific [place] 1.010 Urine Protein NEGATIVE Urine Glucose (UA) NEGATIVE Urine Ketones NEGATIVE Urine Blood MODERATE H Urine RBC (Auto) 4 11/02/19 10:50 Blood Blood Culture (PCR) - Final Staphylococcus Aureus 11/02/19 10:50 Blood Blood Culture - Final Staphylococcus Aureus 11/04/19 10:49 Blood Blood Culture (PCR) - Final Staphylococcus Aureus 11/04/19 10:49 Blood Blood Culture - Final Staphylococcus Aureus 11/06/19 21:28 Blood Blood Culture (PCR) - Final Staphylococcus Aureus 11/02/19 10:50 Sputum Fungal Smear - Final 11/02/19 10:50 Sputum Fungal Smear - Final 10/30/19 10/30/19 14:51 16:46 Troponin I Cancelled < 0.012 Impressions: Chest CT 11/03/19 00:00 IMPRESSION: Dense consolidation in the bilateral lower lobes worrisome for pneumonia. Multiple smaller ill-defined cavitary infiltrate/nodules in the upper lobes worrisome for septic emboli Trace bilateral pleural effusions Upper abdominal ascites. Calcified pancreas from old pancreatitis Renal Ultrasound 11/03/19 00:00 IMPRESSION: 1. CHRONIC MEDICAL RENAL DISEASE. CALCULUS IN THE LEFT KIDNEY. NO HYDRONEPHROSIS. 2. STONES/SLUDGE IN THE GALLBLADDER. Abdomen/Pelvis CT 11/06/19 00:00 IMPRESSION: 1. Bilateral, fairly dense pneumonias. May represent atypical infectious/ inflammatory process. Small right pleural effusion. Minimal left pleural effusion. 2. Free fluid in the abdomen. 3. Nonobstructing left renal calculus. 4. Chronic pancreatitis. Chest X-Ray 11/06/19 00:00 IMPRESSION: Unchanged radiographic appearance of the chest. Gallium Scan Nuclear Medicine 11/06/19 00:00 IMPRESSION: Abnormal uptake in the lungs consistent with pneumonia. No evidence of other infection source. Lumbar Spine MRI 11/06/19 00:00 IMPRESSION: 1. 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 Recommend radiographs of the lumbosacral spine. 2. There is some mild concentric disc bulge at L3-4 with mild central canal stenoses. No significant foraminal stenoses are seen. Thoracic Spine MRI 11/06/19 00:00 IMPRESSION: 1. Normal appearance about the thoracic spine. 2. Bilateral pleural and airspace disease as noted on recent chest x-ray. Thoracic esophagus is also dilated and partially fluid-filled. copyright 2010 [employer]- All Rights Reserved Assessment and Plan - Diagnosis (1) Bacteremia Is this a current diagnosis for this admission?: Yes Plan: Blood culture (10/30/19; 1 bottle each set) MSSA and Enterococcus faecalis Urine culture (10/30/19) MSSA Urine culture (10/31/19) MRSA Blood culture (11/02/19; 1/4 bottles) MSSA and Enterococcus faecalis Blood culture (11/04/19) No growth after 48 hours Blood culture (11/07/19) no growth 24 hrs. TTE negative for vegetations CXR (10/29) RML PNA CT Chest (11/02) very dense consolidation throughout bilateral lower lobes and lateral segment of right middle lobe worrisome for pneumonia. More prominent than 10/29. Multifocal small cavity infiltrates/nodules present to the bilateral upper lobes and lateral aspect of the left lower lobe worrisome for septic emboli. CT abdomen/pelvis bilateral, fairly dense pneumonias. Small right pleural effusion. Minimal left pleural effusion. Free fluid in the abdomen. Nonobstr ucting left renal calculus. Chronic pancreatitis. MRI Thoracic normal appearance thoracic spine. 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 Mild concentric disc bulge at L3-L4 with mild central canal stenosis no significant foraminal stenosis was seen. CLOVER pending. Zosyn - received 2 days total Cefazolin - D6 Infectious disease is consulted. -Advised on continued treatment with Cefazolin, duration of treatment regimen unknown at this time. - Await CLOVER - possible need to tap bilateral pleural effusion. Will repeat CT chest tomorrow if pleural effusion can be tapped. - possible transfer to a tertiary center with ID service if new blood cultures are positive and rest of work up negative (2) Back pain Qualifiers: Back pain location: thoracic back pain Chronicity: acute Back pain laterality: midline Qualified Code(s): M54.6 - Pain in thoracic spine Is this a current diagnosis for this admission?: Yes Plan: - constant, not progressing - no tenderness on palpation - MRI Thoracic normal appearance thoracic spine. 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 Mild concentric disc bulge at L3-L4 with mild central canal stenosis no significant foraminal narrowing. - on percocet for pain (3) Acute kidney injury Is this a current diagnosis for this admission?: Yes (4) Septic pulmonary embolism Is this a current diagnosis for this admission?: Yes Plan: -The patient has persistent infiltrates R> L in the midlung. The density on the right is fairly distinct and has coalesced - He is not short of breath not requiring oxygen - CT chest dense consolidation in the bilateral lower lobe worrisome for pneumonia. Multiple smaller ill-defined cavitary infiltrate/nodules in the upper lobe worrisome for septic emboli. Trace bilateral pleural effusion. Upper abdominal ascites. Calcified pancreas from old pancreatitis. -On cefazolin for presumed endocarditis -Awaiting CLOVER - (5) Diabetes mellitus Qualifiers: Diabetes mellitus type: type 1 Diabetes mellitus complication status: with ketoacidosis Diabetes mellitus complication detail: without coma Qualified Code(s): E10.10 - Type 1 diabetes mellitus with ketoacidosis without coma Is this a current diagnosis for this admission?: Yes Plan: -His most recent A1c was 13.1%. - patient has poor appetite and is inconsistent with food intake. He is only on sliding scale insulin because he gets hypoglycemia often - Dietitian consulted and he was placed on a consistent carb diet. . (6) Diabetic ketoacidosis Qualifiers: Diabetes mellitus type: type 1 Diabetes mellitus complication detail: without coma Qualified Code(s): E10.10 - Type 1 diabetes mellitus with ketoacidosis without coma Is this a current diagnosis for this admission?: Yes Plan: DKA is resolved. Now advanced to Consistent Carb diet. Humalog for sliding scale coverage. Monitor blood sugar. (7) Acute on chronic pancreatitis Is this a current diagnosis for this admission?: Yes Plan: - resolved - continue pancreaz - tolerating diet (8) Sepsis Qualifiers: Sepsis type: sepsis due to unspecified organism Sepsis acute organ dysfunction status: unspecified Qualified Code(s): A41.9 - Sepsis, unspecified organism Is this a current diagnosis for this admission?: Yes Plan: This is resolved at this time suspect secondary to pneumonia and bacteremia. He was initially treated with vancomycin and Zosyn and was transitioned to cefazolin. Infectious disease was consulted and recommended continued treatment with c efazolin. Treatment and further evaluation otherwise as stated above. (9) Severe protein-calorie malnutrition Is this a current diagnosis for this admission?: Yes Plan: BMI 18.2 with significant weight loss of approximately 17 kg over the past year. He was seen by a registered dietitian. 24 hour Calorie count ongoing Consider Remeron/Megace/Marinol for appetite stimulation. (10) Urinary retention Is this a current diagnosis for this admission?: Yes Plan: - townsend removed - able to urinate spontaneously (11) Polysubstance abuse Is this a current diagnosis for this admission?: Yes Plan: Patient has a history of THC and cocaine use. He denies IV drug use at this time. Urine drug screen on admission was negative. Provided patient with education and encouragement regarding abstinence from drug use. Otherwise no treatment or attention necessary at this time. - Plan Summary Summary: Patient is a 39-year-old male known IV drug use came in with DKA and sepsis secondary to MSSA. DKA has resolved. source unclear for MSSA bacteremia. TTE negative, MRI thoracolumbar negative for abscess or osteomyelitis, awaiting nonspecific Transesophageal echocardiogram. CT chest findings concern needing for septic emboli. Currently on day 6 of cefazolin. ID following - Time Time Spent with patient: 25-34 minutes Medications reviewed and adjusted accordingly: Yes Anticipated Discharge Disposition: Home, Self Care Anticipated Discharge Timeframe: to be determined
[2019-11-08] MEDS ORDERED: RINGERS SOLUTION,LACTATED 1,000 ML IV ONE (22:00)
[2019-11-08] MEDS: PHARMACY COMMUNICATION ORDER MC SCH (22:16)
[2019-11-09] MEDS: RINGERS SOLUTION,LACTATED 1,000 ML IV PRN ×3 (00:50→20:21)
[2019-11-09] MEDS: CEFAZOLIN SODIUM 2 GM in DEXTROSE 5%-WATER 100 ML IV SCH ×3 (01:33→17:18)
[2019-11-09] MEDS: INSULIN REG, HUMAN 100 UNIT/ML 3 ML VIAL (PYX) SUBCUT SCH ×4 (09:13→22:03)
[2019-11-09] MEDS: LIPASE/PROTEASE/AMYLASE 1 CAP CAPSULE.DR PO SCH ×2 (09:13→17:17)
[2019-11-09] MEDS: LACTOBACILLUS ACIDOPHILUS 250 MG TAB PO SCH ×2 (09:14→17:17)
[2019-11-09] MEDS: FAMOTIDINE INJ/PF 20 MG/2 ML SDV IV SCH ×2 (09:18→17:16)
[2019-11-09] MEDS: OXYCODONE-ACETAMINOPHEN 5-325 MG TABLET PO PRN ×2 (09:57→22:02)
--- NOTE | 2019-11-09 13:21 | PDOC PROGRESS REPORT ---
Subjective Progress Note for:: 11/09/19 Subjective:: Mr. Feng Granado is a 39-year-old -Maced[place] male with a longstanding history of type 1 diabetes, with multiple admissions for DKA. Also has a history of pancreatitis, depression, hyperlipidemia, and hypertension. Presented to the ED via EMS was found by family members unconscious covered in his own feces. Upon arrival to the ED he was found to have a blood sugar when evaluated in the ED he was found to have a blood sugar of 1037, sodium 120.4, bicarb 6, creatinine 3.94, and a calcium of 6.8. He was given 4 L normal saline in the ED and started on an insulin drip per protocol. Initial blood gas pH 7.01 PCO2 of 26.6 PO2 122 HCO3 6.5. He is admitted to the ICU for further management of DKA. 10/31 The patient appears to be doing a little better. His blood sugar is better and he is off the insulin drip. His AG is now 13. he is on small dose of intermediate insulin and coverage. His renal fn. remains abnormal. We gave him a fair amount of fluid yesterday but creatinine remians about 3. Has received multiple doses of calcium for his low Ca++. When corrected for his low albumin irt is not really low or modestly so. he has grown out multiple + blood cultures with staph aureus and enterococcus the source unclear he did have a dirty urine on admission. I doid ask for an ECHO to r/o endocarditis and will send surveillance cultures in the near future as well. Hypothermia resolved. 11/01 the patient overall appears to be doing better. His blood sugar dropped overnight so I stopped his Lantus. he has been started on feeds. He is emaciated. his mother attributes it to his pancreatitis. I asked her what the etiology was but she was unsure. The patient reportedly has chronic diarrhea on the basis of this pancreatitis I am repeating his lipase. His CXR yesterday looked worse. He has bilateral lower lobe densities. Has been on Zosynand Vanco. I sent off request for sputum fungus and AFB. in addition, i requested HIV test for patient given his malnutrition and these infiltrates. I would like to extubate the patient today if possible. The patient haad multiple positive blood cultures for MRSA. He had an ECHO yesterday which did not suggest any evidence of a valvular vegetation. 11/02 DKA resolved. Blood sugars controlled. Lipase close to normal presently. There was some confusion originally concerning the patient's cultures. For reasons not completely understood the patient had 4 positive blood cultures for Staph aureus. The last of these was as late as yesterday. His ECHO was negative for endocarditis. The patient grew MRSA from his urine so it was not related. Despite the negative ECHO this persistent bacteremia regis qualify the patient for emt intermediate abx therapy ( at least 4 weeks). There does not appear to be a drainable source of infx. I would ordinarilyr CT chest/abdo/pelvis given the bacteremia but the patient has ongoing significant renal dysfn. Transferred out of the ICU 11/04/19. Continued on IV fluids and abx 11/05/19. ID consulted suggest CLOVER, MRI and abdominal CT to look for source of bacteremia MSSA. Continued on cefazolin 11/06/19. MRI thoraco/lumbar negative for abscess. CT abdomen free fluid in the abdomen, non obstructing left renal calculus. chronic pancreatitis, bilateral pneumonia. 11/07/19. Patient was seen and examined at bedside. He still complains of chest pain, appetite is still fair. He is scheduled for CLOVER tomorrow. He has been afebrile. On D5 of ancef. 11/08/19. He was seen and examined at bedside. He complains of pain on his left side along his anterior axillary line, worse when he takes a deep breath. His appetite is still poor. He has been afebrile, no cough, no complains of SOB. CLOVER was note done today, rescheduled for tomorrow. He is on D6 of Ancef prior to that he received total of 2 days zosyn. 11/09/19. He was seen and examined at bedside. Still has pain on his left side with deep breathing. He is scheduled for CLOVER today. Blood cultures reviewed Blood Cx drawn 11/06/19 still growing MSSA on 1 bottle. repeat urine culture gram negative rods. ID following. Repeat CT chest and blood cultures ordered. Patients mother asking if he can sign a health care power of civil litigation attorney. Patient confirms he is choosing his mother as HCPOA. Reason For Visit: DKA Physical Exam Vital Signs: Temp Pulse Resp BP Pulse Ox 97.1 F 74 16 85/59 L 100 11/09/19 08:00 11/09/19 11:09 11/09/19 11:09 11/09/19 11:09 11/09/19 11:09 Intake & Output 11/08/19 11/09/19 11/10/19 06:59 06:59 06:59 Intake Total 3100 4856 Output Total 3150 450 650 Balance -50 4406 -650 Weight 58.4 kg 63.3 kg General appearance: PRESENT: no acute distress, thin Head exam: PRESENT: atraumatic, normocephalic Eye exam: PRESENT: EOMI, PERRLA Mouth exam: PRESENT: moist Neck exam: PRESENT: full ROM Respiratory exam: PRESENT: chest wall tenderness, clear to auscultation alfosno, symmetrical, unlabored Cardiovascular exam: PRESENT: RRR, +S1, +S2 Pulses: PRESENT: +2 pedal pulses bilateral GI/Abdominal exam: PRESENT: normal bowel sounds, soft, tenderness - epigastric Extremities exam: PRESENT: full ROM, other - weak and deconditioned Musculoskeletal exam: PRESENT: full ROM Neurological exam: PRESENT: alert, awake, oriented to person, oriented to place, oriented to time, oriented to situation Skin exam: PRESENT: normal color Results Laboratory Results: 11/08/19 06:50 11/08/19 06:50 11/08/19 11:42 Urine Color STRAW Urine Appearance SLIGHTLY-CLOUDY Urine pH 5.0 Ur Specific [place] 1.010 Urine Protein NEGATIVE Urine Glucose (UA) NEGATIVE Urine Ketones NEGATIVE Urine Blood MODERATE H Urine RBC (Auto) 4 11/06/19 21:28 Blood Blood Culture (PCR) - Final Staphylococcus Aureus 11/06/19 21:28 Blood Blood Culture - Final Staphylococcus Aureus 11/02/19 10:50 Blood Blood Culture (PCR) - Final Staphylococcus Aureus 11/02/19 10:50 Blood Blood Culture - Final Staphylococcus Aureus 11/04/19 10:49 Blood Blood Culture (PCR) - Final Staphylococcus Aureus 11/04/19 10:49 Blood Blood Culture - Final Staphylococcus Aureus 10/30/19 10/30/19 14:51 16:46 Troponin I Cancelled < 0.012 Impressions: Chest CT 11/03/19 00:00 IMPRESSION: Dense consolidation in the bilateral lower lobes worrisome for pne umonia. Multiple smaller ill-defined cavitary infiltrate/nodules in the upper lobes worrisome for septic emboli Trace bilateral pleural effusions Upper abdominal ascites. Calcified pancreas from old pancreatitis Renal Ultrasound 11/03/19 00:00 IMPRESSION: 1. CHRONIC MEDICAL RENAL DISEASE. CALCULUS IN THE LEFT KIDNEY. NO HYDRONEPHROSIS. 2. STONES/SLUDGE IN THE GALLBLADDER. Abdomen/Pelvis CT 11/06/19 00:00 IMPRESSION: 1. Bilateral, fairly dense pneumonias. May represent atypical infectious/ inflammatory process. Small right pleural effusion. Minimal left pleural effusion. 2. Free fluid in the abdomen. 3. Nonobstructing left renal calculus. 4. Chronic pancreatitis. Chest X-Ray 11/06/19 00:00 IMPRESSION: Unchanged radiographic appearance of the chest. Gallium Scan Nuclear Medicine 11/06/19 00:00 IMPRESSION: Abnormal uptake in the lungs consistent with pneumonia. No evidence of other infection source. Lumbar Spine MRI 11/06/19 00:00 IMPRESSION: 1. 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 Recommend radiographs of the lumbosacral spine. 2. There is some mild concentric disc bulge at L3-4 with mild central canal stenoses. No significant foraminal stenoses are seen. Thoracic Spine MRI 11/06/19 00:00 IMPRESSION: 1. Normal appearance about the thoracic spine. 2. Bilateral pleural and airspace disease as noted on recent chest x-ray. Thoracic esophagus is also dilated and partially fluid-filled. copyright 2010 [employer]- All Rights Reserved Assessment and Plan - Diagnosis (1) Bacteremia Is this a current diagnosis for this admission?: Yes Plan: Blood culture (10/30/19; 1 bottle each set) MSSA and Enterococcus faecalis Urine culture (10/30/19) MSSA Urine culture (10/31/19) MRSA Blood culture (11/02/19; 1/4 bottles) MSSA and Enterococcus faecalis Blood culture (11/04/19) 1 bottle +ve MSSA Blood culture (11/06/19) 1 bottle +ve MSSA Blood culture (11/07/19) no growth 48 hrs. Urine culture (11/08/19) gram negative rods TTE negative for vegetations CXR (10/29) RML PNA CT Chest (11/02) very dense consolidation throughout bilateral lower lobes and lateral segment of right middle lobe worrisome for pneumonia. More prominent than 10/29. Multifocal small cavity infiltrates/nodules present to the bilateral upper lobes and lateral aspect of the left lower lobe worrisome for septic emboli. CT abdomen/pelvis bilateral, fairly dense pneumonias. Small right pleural effusion. Minimal left pleural effusion. Free fluid in the abdomen. Nonobstructing left renal calculus. Chronic pancreatitis. MRI Thoracic normal appearance thoracic spine. 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 Mild concentric disc bulge at L3-L4 with mild central canal stenosis no significant foraminal stenosis was seen. CLOVER pending. Zosyn - received 2 days total Cefazolin - D7 Infectious disease is consulted. -Advised on continued treatment with Cefazolin, duration of treatment regimen unknown at this time. - Await CLOVER - possible need to tap bilateral pleural effusion. Repeat CT chest pending - possible transfer to a tertiary center with ID service if new blood cultures are positive and rest of work up negative (2) Severe protein-calorie malnutrition Is this a current diagnosis for this admission?: Yes Plan: BMI 18.2 with significant weight loss of approximately 17 kg over the past year. He was seen by a registered dietitian. 24 hour Calorie count ongoing marinol for appetite stimulant started (3) Back pain Qualifiers: Back pain location: thoracic back pain Chronicity: acute Back pain laterality: midline Qualified Code(s): M54.6 - Pain in thoracic spine Is this a current diagnosis for this admission?: Yes Plan: - constant, not progressing - no tenderness on palpation - MRI Thoracic normal appearance thoracic spine. 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 Mild concentric disc bulge at L3-L4 with mild central canal stenosis no significant foraminal narrowing. - on percocet for pain (4) Acute kidney injury Is this a current diagnosis for this admission?: Yes Plan: Improving; Cr 2.55 -> 2.17. BUN 66 -> 57. Baseline Cr 0.9/BUN 14 Adequate urine output; ~2L daily Renal US: chronic renal disease, calculus left kidney, no dydronephrosis. Followed by Dr. Bazzi, nephrology. -Renal replacement therapy no indicated at this time. -Maintain euvolemia. Avoid nephrotoxic medications as able; renally dose when appropriate. Continue gentle IVF Strict I&Os Daily weights (5) Septic pulmonary embolism Is this a current diagnosis for this admission?: Yes Plan: -The patient has persistent infiltrates R> L in the midlung. The density on the right is fairly distinct and has coalesced - He is not short of breath not requiring oxygen - CT chest dense consolidation in the bilateral lower lobe worrisome for pneumon ia. Multiple smaller ill-defined cavitary infiltrate/nodules in the upper lobe worrisome for septic emboli. Trace bilateral pleural effusion. Upper abdominal ascites. Calcified pancreas from old pancreatitis. -On cefazolin for presumed endocarditis -Awaiting CLOVER - (6) Diabetes mellitus Qualifiers: Diabetes mellitus type: type 1 Diabetes mellitus complication status: with ketoacidosis Diabetes mellitus complication detail: without coma Qualified Code(s): E10.10 - Type 1 diabetes mellitus with ketoacidosis without coma Is this a current diagnosis for this admission?: Yes Plan: -His most recent A1c was 13.1%. - patient has poor appetite and is inconsistent with food intake. He is only on sliding scale insulin because he gets hypoglycemia often - Dietitian consulted and he was placed on a consistent carb diet. . (7) Diabetic ketoacidosis Qualifiers: Diabetes mellitus type: type 1 Diabetes mellitus complication detail: without coma Qualified Code(s): E10.10 - Type 1 diabetes mellitus with ketoacidosis without coma Is this a current diagnosis for this admission?: Yes Plan: DKA is resolved. Now advanced to Consistent Carb diet. Humalog for sliding scale coverage. Monitor blood sugar. (8) Acute on chronic pancreatitis Is this a current diagnosis for this admission?: Yes Plan: - resolved - continue pancreaze - tolerating diet although appetite is very poor (9) Sepsis Qualifiers: Sepsis type: sepsis due to unspecified organism Sepsis acute organ dysfunction status: unspecified Qualified Code(s): A41.9 - Sepsis, unspecified organism Is this a current diagnosis for this admission?: Yes Plan: This is resolved at this time suspect secondary to pneumonia and bacteremia. He was initially treated with vancomycin and Zosyn and was transitioned to cefazolin. Infectious disease was consulted and recommended continued treatment with cefazolin. Treatment and further evaluation otherwise as stated above. (10) Urinary retention Is this a current diagnosis for this admission?: Yes Plan: - townsend removed - able to urinate spontaneously (11) Polysubstance abuse Is this a current diagnosis for this admission?: Yes Plan: Patient has a history of THC and cocaine use. He denies IV drug use at this time. Urine drug screen on admission was negative. Provided patient with education and encouragement regarding abstinence from drug use. Otherwise no treatment or attention necessary at this time. - Time Time Spent with patient: 25-34 minutes Anticipated Discharge Disposition: Home, Self Care Anticipated Discharge Timeframe: to be determined
[2019-11-09] MEDS ORDERED: PROPOFOL INJ 200 MG/20 ML VIAL IV ONE (14:05)
[2019-11-09] MEDS ORDERED: LIDOCAINE 2% INJ-PF (20 MG/ML) 10 ML AMPUL ONE (14:05)
--- NOTE | 2019-11-09 14:18 | RADIOLOGY REPORT (SQ) ---
EXAM DESCRIPTION: CT CHEST WITHOUT IMAGES COMPLETED DATE/TIME: 11/09/2019 1:50 pm REASON FOR STUDY: assess pleural effusion for tap COMPARISON: 11/03/2019 TECHNIQUE: CT scan performed of the chest without intravenous contrast. Images reviewed with lung, soft tissue and bone windows. Reconstructed coronal and sagittal MPR images reviewed. All images st ored on PACS. All CT scanners at this facility use dose modulation, iterative reconstruction, and/or weight based d osing when appropriate to reduce radiation dose to as low as reasonably achievable (ALARA). [facility]: Dose Right [facility]: CareDose [facility]: Dose Right [facility]: Teradose 4D [facility]: Tus reQRdos RADIATION DOSE: CT Rad equipment meets quality standard of care and radiation dose reduction techniq ues were employed. CTDIvol: 9.4 mGy. DLP: 361 mGy-cm. mGy. LIMITATIONS: No technical limitations. FINDINGS: LUNGS AND PLEURA: Today's examination demonstrates increasing dense multifocal consolidati ons with multiple cavitary lesions demonstrating increased nodular thickening of the moore. Likewise , there is increased volume of bilateral pleural effusions (right more so than left). No pneumothora x. HILAR AND MEDIASTINAL STRUCTURES: No identified masses or abnormal nodes. No obvious aneurysm. HEART AND VASCULAR STRUCTURES: No aneurysm. No pericardial effusion. UPPER ABDOMEN: Limited examination. Re- demonstration of multiple pancreatic calcifications with lik raven pancreatic pseudocyst suggesting previous pancreatitis. Increased ascites. THYROID AND OTHER SOFT TISSUES: No masses. No adenopathy. BONES: No significant finding. HARDWARE: None in the chest. OTHER: No other significant findings. IMPRESSION: Increasing multifocal dense consolidations with multiple cavitary lesions demonstrating increased nodular thickening of the moore. Likewise, increased bilateral pleural effusions and upper abdominal ascites. TECHNICAL DOCUMENTATION: JOB ID: [id number] Quality ID # [id number]: Final reports with documentation of one or more dose reduction techniques (e.g., Au tomated exposure control, adjustment of the mA and/or kV according to patient size, use of iterative reconstruction technique) 2010 [employer]- All Rights Reserved Reading location - IP/workstation name: [email or web address]-
[2019-11-09] MEDS: METOCLOPRAMIDE HCL 10 MG TABLET PO SCH (17:17)
[2019-11-09] MEDS: MULTIVITAMIN TABLET PO SCH (17:17)
[2019-11-09] MEDS: DRONABINOL 2.5 MG CAPSULE PO SCH (17:17)
--- NOTE | 2019-11-09 21:55 | XCELERA REPORT ---
Study ID: [id number] Transesophageal Echocardiogram Report Name: CHESTER MCKEON Age: 39 yrs Gender: Male : 1980 Patient Status: Inpatient Patient Location: [address] [place] [address] Study Date: 11/09/2019 01:45 PM Reason For Study: MSSA bacteremia, septic emboli Ordering Physician: OMAR HAWTHORNE Performed By: Quin Wilde Interpretation Summary Left ventricular systolic function is normal. Ejection Fraction = >55%. The right ventricle is normal in size and function. There is mild mitral regurgitation. There is a small vegetation or mass on the mitral valve. No hemodynamically significant valvular aortic stenosis. There is no pericardial effusion. 0.6 cm X 0.7 cm mass attached tlo the septal leaflet of the mitral valve highly suspicious for vegetation given clinical presentation. No independant mobility is noted however. Procedure A complete two-dimensional transesophageal echocardiogram was performed (2D, spectral and color flow Doppler). Informed consent for Transesophageal Echocardiogram, and use of a contrast agent as needed, was obtained prior to the procedure. The patient was brought to the OR in a fasting state. An intravenous line was placed. A topical anesthetic agent was used for oropharangeal anesthesia. A bite block was inserted. IV conscious sedation was administered using Per Anethesia team. The patient's vital signs, including blood pressure, heart rate, pulse oximetry and cardiac rhythm were monitored thoughout the procedure. The transesophageal probe was passed without difficulty. The patient tolerated the procedure well without evidence of orophangeal or esophageal trauma. Subsequent to all the images being obtained the probe was removed with out trauma. Left Ventricle The left ventricle is grossly normal size. There is normal left ventricular wall thickness. Left ventricular systolic function is normal. Ejection Fraction = >55%. No regional wall motion abnormalities noted. Right Ventricle The right ventricle is normal in size and function. Atria The interatrial septum is intact with no evidence for an atrial septal defect. The left atrial size is normal. No left atrial mass or thrombus visualized. Right atrial size is normal. Mitral Valve There is a small vegetation or mass on the mitral valve. 0.6 cm X 0.7 cm mass ( not very mobile)-attached tlo the septal leaflet of the mitral valve highly suspicious for vegetation given clinical presentation. No independant mobility is noted however. There is no mitral valve stenosis. There is mild mitral regurgitation. Tricuspid Valve The tricuspid valve is normal in structure and function. There is no tricuspid valve vegetation. There is no tricuspid stenosis. There is trace tricuspid regurgitation. Aortic Valve The aortic valve opens well. The aortic valve is trileaflet. The aortic valve is normal in structure and function. There is no aortic valvular vegetation. No hemodynamically significant valvular aortic stenosis. No aortic regurgitation is present. Pulmonic Valve The pulmonic valve leaflets are thin and pliable; valve motion is normal. There is no vegetation on the pulmonic valve. There is no pulmonic valvular stenosis. There is no pulmonic valvular regurgitation. Arteries The aortic root is normal size. Pericardium There is no pericardial effusion. : OMAR HAWTHORNE Anil
[2019-11-09] MEDS: PROMETHAZINE HCL INJ 25 MG/1 ML VIAL IV PRN (22:02)
[2019-11-10] MEDS: CEFAZOLIN SODIUM 2 GM in DEXTROSE 5%-WATER 100 ML IV SCH ×3 (02:28→17:46)
[2019-11-10] MEDS: RINGERS SOLUTION,LACTATED 1,000 ML IV PRN ×5 (02:29→21:14)
[2019-11-10] MEDS: PROMETHAZINE HCL INJ 25 MG/1 ML VIAL IV PRN ×4 (04:06→22:41)
[2019-11-10] MEDS: LIPASE/PROTEASE/AMYLASE 1 CAP CAPSULE.DR PO SCH ×2 (07:43→17:45)
[2019-11-10] MEDS: METOCLOPRAMIDE HCL 10 MG TABLET PO SCH ×3 (07:43→17:47)
[2019-11-10] MEDS: OXYCODONE-ACETAMINOPHEN 5-325 MG TABLET PO PRN ×2 (07:44→17:46)
[2019-11-10] MEDS: INSULIN REG, HUMAN 100 UNIT/ML 3 ML VIAL (PYX) SUBCUT SCH ×4 (08:18→22:26)
[2019-11-10] MEDS: FAMOTIDINE INJ/PF 20 MG/2 ML SDV IV SCH ×2 (09:31→17:48)
[2019-11-10] MEDS: MULTIVITAMIN TABLET PO SCH (09:31)
[2019-11-10] MEDS: DRONABINOL 2.5 MG CAPSULE PO SCH ×2 (09:31→17:45)
[2019-11-10] MEDS: LACTOBACILLUS ACIDOPHILUS 250 MG TAB PO SCH ×2 (09:31→17:46)
[2019-11-10] MEDS ORDERED: MULTIVITAMINS W-IRON TABLET, CHEWABLE PO SCH (10:00)
[2019-11-10 10:03] LABS: ABSOLUTE EOSINOPHILS # (AUTO) 0.1 10^3/uL (0.0-0.6); ABSOLUTE MONOCYTES (AUTO) 0.4 10^3/uL (0.1-1.4); ABSOLUTE NEUT (AUTO) 5.7 10^3/uL (1.7-8.2); BASOPHILS % (AUTO) 0.7 % (0-2); EOSINOPHILS % (AUTO) 0.9 % (0-6); HEMATOCRIT 25.8 % (37.9-51.0); HEMOGLOBIN 8.6 g/dL (13.5-17.0); LYMPHOCYTES % (AUTO) 13.5 % (13-45); MEAN CORPUSCULAR HEMOGLOBIN 27.9 pg (27.0-33.4); MEAN CORPUSCULAR HGB CONC 33.4 g/dL (32.0-36.0); MEAN CORPUSCULAR VOLUME 84 fl (80-97); MONOCYTES % (AUTO) 5.6 % (3-13); PLATELET COUNT 156 10^3/uL (150-450); RED BLOOD COUNT 3.09 10^6/uL (4.35-5.55); RED CELL DISTRIBUTION WIDTH 18.4 % (11.5-14.0); SEGMENTED NEUTROPHILS % (AUTO) 79.3 % (42-78); TOTAL CELLS COUNTED % (AUTO) 100 %; WHITE BLOOD COUNT 7.2 10^3/uL (4.0-10.5)
[2019-11-10 10:25] LABS: ALBUMIN 1.8 g/dL (3.5-5.0); ALKALINE PHOSPHATASE 148 U/L (38-126); ANION GAP 9 (5-19); ASPARTATE AMINO TRANSFERASE 15 U/L (17-59); BILIRUBIN,DIRECT 0.3 mg/dL (0.0-0.4); BILIRUBIN,TOTAL 0.3 mg/dL (0.2-1.3); BLOOD UREA NITROGEN 41 mg/dL (7-20); CALCIUM 7.3 mg/dL (8.4-10.2); CARBON DIOXIDE 18 mmol/L (22-30); CHLORIDE 115 mmol/L (98-107); GLUCOSE 150 mg/dL (75-110); POTASSIUM 4.4 mmol/L (3.6-5.0); TOTAL PROTEIN 5.5 g/dL (6.3-8.2)
--- NOTE | 2019-11-10 12:24 | PDOC PROGRESS REPORT ---
Subjective Progress Note for:: 11/10/19 Subjective:: Mr. Feng Granado is a 39-year-old -[place] Citizen male with a longstanding history of type 1 diabetes, with multiple admissions for DKA. Also has a history of pancreatitis, depression, hyperlipidemia, and hypertension. Presented to the ED via EMS was found by family members unconscious covered in his own feces. Upon arrival to the ED he was found to have a blood sugar when evaluated in the ED he was found to have a blood sugar of 1037, sodium 120.4, bicarb 6, creatinine 3.94, and a calcium of 6.8. He was given 4 L normal saline in the ED and started on an insulin drip per protocol. Initial blood gas pH 7.01 PCO2 of 26.6 PO2 122 HCO3 6.5. He is admitted to the ICU for further management of DKA. 10/31 The patient appears to be doing a little better. His blood sugar is better and he is off the insulin drip. His AG is now 13. he is on small dose of intermediate insulin and coverage. His renal fn. remains abnormal. We gave him a fair amount of fluid yesterday but creatinine remians about 3. Has received multiple doses of calcium for his low Ca++. When corrected for his low albumin irt is not really low or modestly so. he has grown out multiple + blood cultures with staph aureus and enterococcus the source unclear he did have a dirty urine on admission. I doid ask for an ECHO to r/o endocarditis and will send surveillance cultures in the near future as well. Hypothermia resolved. 11/01 the patient overall appears to be doing better. His blood sugar dropped overnight so I stopped his Lantus. he has been started on feeds. He is emaciated. his mother attributes it to his pancreatitis. I asked her what the etiology was but she was unsure. The patient reportedly has chronic diarrhea on the basis of this pancreatitis I am repeating his lipase. His CXR yesterday looked worse. He has bilateral lower lobe densities. Has been on Zosynand Vanco. I sent off request for sputum fungus and AFB. in addition, i requested HIV test for patient given his malnutrition and these infiltrates. I would like to extubate the patient today if possible. The patient haad multiple positive blood cultures for MRSA. He had an ECHO yesterday which did not suggest any evidence of a valvular vegetation. 11/02 DKA resolved. Blood sugars controlled. Lipase close to normal presently. There was some confusion originally concerning the patient's cultures. For reasons not completely understood the patient had 4 positive blood cultures for Staph aureus. The last of these was as late as yesterday. His ECHO was negative for endocarditis. The patient grew MRSA from his urine so it was not related. Despite the negative ECHO this persistent bacteremia regis qualify the patient for intermodal customer service abx therapy ( at least 4 weeks). There does not appear to be a drainable source of infx. I would ordinarilyr CT chest/abdo/pelvis given the bacteremia but the patient has ongoing significant renal dysfn. Transferred out of the ICU 11/04/19. Continued on IV fluids and abx 11/05/19. ID consulted suggest CLOVER, MRI and abdominal CT to look for source of bacteremia MSSA. Continued on cefazolin 11/06/19. MRI thoraco/lumbar negative for abscess. CT abdomen free fluid in the abdomen, non obstructing left renal calculus. chronic pancreatitis, bilateral pneumonia. 11/07/19. Patient was seen and examined at bedside. He still complains of chest pain, appetite is still fair. He is scheduled for CLOVER tomorrow. He has been afebrile. On D5 of ancef. 11/08/19. He was seen and examined at bedside. He complains of pain on his left side along his anterior axillary line, worse when he takes a deep breath. His appetite is still poor. He has been afebrile, no cough, no complains of SOB. CLOVER was note done today, rescheduled for tomorrow. He is on D6 of Ancef prior to that he received total of 2 days zosyn. 11/09/19. He was seen and examined at bedside. Still has pain on his left side with deep breathing. He is scheduled for CLOVER today. Blood cultures reviewed Blood Cx drawn 11/06/19 still growing MSSA on 1 bottle. repeat urine culture gram negative rods. ID following. Repeat CT chest and blood cultures ordered. Patients mother asking if he can sign a health care power of city attorney. Patient confirms he is choosing his mother as HCPOA. 11/10/19. He was seen and examined at bedside. He was sitting on a chair eating breakfast. Complains of bilateral leg swelling, left sided chest wall pain. No SOB, no palpitations. He also complains of weakness generalized. CLOVER that was done yesterday showed mitral valve vegetation 0.6x0.7cm. He is on cefazolin. Reason For Visit: DKA Physical Exam Vital Signs: Temp Pulse Resp BP Pulse Ox 97.4 F 80 16 90/61 L 95 11/10/19 09:06 11/10/19 08:10 11/10/19 08:10 11/10/19 08:10 11/10/19 08:10 Intake & Output 11/09/19 11/10/19 11/11/19 06:59 06:59 06:59 Intake Total 4856 4500 79 Output Total 450 950 Balance 4406 3550 79 Weight 63.3 kg 60.4 kg General appearance: PRESENT: no acute distress, cooperative, thin Head exam: PRESENT: atraumatic, normocephalic Eye exam: PRESENT: EOMI, PERRLA Mouth exam: PRESENT: moist Neck exam: PRESENT: full ROM Respiratory exam: PRESENT: decreased breath sounds, symmetrical, unlabored Cardiovascular exam: PRESENT: RRR, +S1, +S2 Vascular exam: PRESENT: normal capillary refill, pallor GI/Abdominal exam: PRESENT: normal bowel sounds, soft. ABSENT: rebound, tenderness Extremities exam: PRESENT: full ROM Musculoskeletal exam: PRESENT: full ROM Neurological exam: PRESENT: alert, awake, oriented to person, oriented to place, oriented to time Psychiatric exam: PRESENT: normal mood Skin exam: PRESENT: normal color Results Laboratory Results: 11/10/19 09:50 11/10/19 09:50 11/10/19 11/10/19 09:50 09:50 WBC 7.2 RBC 3.09 L Hgb 8.6 L Hct 25.8 L MCV 84 MCH 27.9 MCHC 33.4 RDW 18.4 H Plt Count 156 Seg Neutrophils % 79.3 H Sodium 141.8 Potassium 4.4 Chloride 115 H Carbon Dioxide 18 L Anion Gap 9 BUN 41 H Creatinine 1.35 H Est GFR ( Amer) > 60 Glucose 150 H Calcium 7.3 L Total Bilirubin 0.3 AST 15 L Alkaline Phosphatase 148 H Total Protein 5.5 L Albumin 1.8 L 11/08/19 11:42 Clean Catch Midstream Urine Culture - Final Serratia Marcescens 11/04/19 12:45 Blood Blood Culture - Final NO GROWTH IN 5 DAYS 11/06/19 21:28 Blood Blood Culture (PCR) - Final Staphylococcus Aureus 11/06/19 21:28 Blood Blood Culture - Final Staphylococcus Aureus 10/30/19 10/30/19 14:51 16:46 Troponin I Cancelled < 0.012 Impressions: Renal Ultrasound 11/03/19 00:00 IMPRESSION: 1. CHRONIC MEDICAL RENAL DISEASE. CALCULUS IN THE LEFT KIDNEY. NO HYDRONEPHROSIS. 2. STONES/SLUDGE IN THE GALLBLADDER. Abdomen/Pelvis CT 11/06/19 00:00 IMPRESSION: 1. Bilateral, fairly dense pneumonias. May represent atypical infectious/ inflammatory process. Small right pleural effusion. Minimal left pleural effusion. 2. Free fluid in the abdomen. 3. Nonobstructing left renal calculus. 4. Chronic pancreatitis. Chest X-Ray 11/06/19 00:00 IMPRESSION: Unchanged radiographic appearance of the chest. Gallium Scan Nuclear Medicine 11/06/19 00:00 IMPRESSION: Abnormal uptake in the lungs consistent with pneumonia. No evidence of other infection source. Lumbar Spine MRI 11/06/19 00:00 IMPRESSION: 1. 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 Recommend radiographs of the lumbosacral spine. 2. There is some mild concentric disc bulge at L3-4 with mild central canal stenoses. No significant foraminal stenoses are seen. Thoracic Spine MRI 11/06/19 00:00 IMPRESSION: 1. Normal appearance about the thoracic spine. 2. Bilateral pleural and airspace disease as noted on recent chest x-ray. Thoracic esophagus is also dilated and partially fluid-filled. copyright 2011 [employer]- All Rights Reserved Chest CT 11/09/19 00:00 IMPRESSION: Increasing multifocal dense consolidations with multiple cavitary lesions demonstrating increased nodular thickening of the moore. Likewise, increased bilateral pleural effusions and upper abdominal ascites. 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 Urine culture (11/08/19) gram negative rods TTE negative for vegetations CXR (10/29) RML PNA CT Chest (11/02) very dense consolidation throughout bilateral lower lobes and lateral segment of right middle lobe worrisome for pneumonia. More prominent than 10/29. Multifocal small cavity infiltrates/nodules present to the bilateral upper lobes and lateral aspect of the left lower lobe worrisome for septic emboli. CT abdomen/pelvis bilateral, fairly dense pneumonias. Small right pleural effusion. Minimal left pleural effusion. Free fluid in the abdomen. Nonobstructing left renal calculus. Chronic pancreatitis. MRI Thoracic normal appearance thoracic spine. 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 Mild concentric disc bulge at L3-L4 with mild central canal stenosis no significant foraminal stenosis was seen. CT chest increasing multifocal dense consolidations with multiple cavitary lesio ns demonstrating increased nodular thickening of the moore. Likewise increased bilateral pleural effusions and upper abdominal ascites. CLOVER 0.6x0.7 cm mass attached to the septal leaflet of the mitral valve highly suspicious for vegetation given clinical presentation. Zosyn - received 2 days total Cefazolin - D9 - INfectious disease following - plan to continue atleast 6 weeks abx Blood culture negative on 11/07/19 - Radiology consulted for Thoracentesis for increasing pleural effusion. - awaiting EKG, not in florid HF. no clear indications for surgery yet. (2) Bacteremia Is this a current diagnosis for this admission?: Yes Plan: -Blood culture (10/30/19; 1 bottle each set) MSSA and Enterococcus faecalis Urine culture (10/30/19) MSSA Urine culture (10/31/19) MRSA Blood culture (11/02/19; 1/4 bottles) MSSA and Enterococcus faecalis Blood culture (11/04/19) 1 bottle +ve MSSA Blood culture (11/06/19) 1 bottle +ve MSSA Blood culture (11/07/19) no growth 72 hrs. Urine culture (11/08/19) gram negative rods. Blood culture 11/10/19 pending - CLOVER showing mitral valve vegetation consistent with endocarditis. - On cefazolin D9 - will continue. WOuld need minimum of 6 weeks - ID following (3) Back pain Qualifiers: Back pain location: thoracic back pain Chronicity: acute Back pain laterality: midline Qualified Code(s): M54.6 - Pain in thoracic spine Is this a current diagnosis for this admission?: Yes Plan: - constant, not progressing - no tenderness on palpation - MRI Thoracic normal appearance thoracic spine. 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 Mild concentric disc bulge at L3-L4 with mild central canal stenosis no significant foraminal narrowing. - on percocet for pain (4) Septic pulmonary embolism Is this a current diagnosis for this admission?: Yes Plan: -The patient has persistent infiltrates R> L in the midlung. The density on the right is fairly distinct and has coalesced - He is not short of breath not requiring oxygen - CT chest dense consolidation in the bilateral lower lobe worrisome for pneumonia. Multiple smaller ill-defined cavitary infiltrate/nodules in the upper lobe worrisome for septic emboli. Trace bilateral pleural effusion. Upper abdominal ascites. Calcified pancreas from old pancreatitis. - repeat CT chest increasing multifocal dense consolidations with multiple cavitary lesions demonstrating increased nodular thickening of the moore. Likewise increased bilateral pleural effusions and upper abdominal ascites. -On cefazolin for presumed endocarditis -CLOVER confirmed endocarditis - (5) Acute kidney injury Is this a current diagnosis for this admission?: Yes Plan: Improving; Cr 2.55 -> 2.17>1.35. BUN 66 -> 57. Baseline Cr 0.9/BUN 14 Adequate urine output; ~2L daily Renal US: chronic renal disease, calculus left kidney, no dydronephrosis. Followed by Dr. Bazzi, nephrology. -Renal replacement therapy no indicated at this time. -Maintain euvolemia. Avoid nephrotoxic medications as able; renally dose when appropriate. Continue gentle IVF Strict I&Os Daily weights (6) Severe protein-calorie malnutrition Is this a current diagnosis for this admission?: Yes Plan: BMI 18.2 with significant weight loss of approximately 17 kg over the past year. He was seen by a registered dietitian. 24 hour Calorie count ongoing marinol for appetite stimulant started (7) Diabetes mellitus Qualifiers: Diabetes mellitus type: type 1 Diabetes mellitus complication status: with ketoacidosis Diabetes mellitus complication detail: without coma Qualified Code(s): E10.10 - Type 1 diabetes mellitus with ketoacidosis without coma Is this a current diagnosis for this admission?: Yes Plan: -His most recent A1c was 13.1%. - patient has poor appetite and is inconsistent with food intake. He is only on sliding scale insulin because he gets hypoglycemia often - Dietitian consulted and he was placed on a consistent carb diet. . (8) Diabetic ketoacidosis Qualifiers: Diabetes mellitus type: type 1 Diabetes mellitus complication detail: without coma Qualified Code(s): E10.10 - Type 1 diabetes mellitus with ketoacidosis without coma Is this a current diagnosis for this admission?: Yes Plan: DKA is resolved. Now advanced to Consistent Carb diet. Humalog for sliding scale coverage. Monitor blood sugar. (9) Acute on chronic pancreatitis Is this a current diagnosis for this admission?: Yes Plan: - resolved - continue pancreaze - tolerating diet although appetite is very poor (10) Sepsis Qualifiers: Sepsis type: sepsis due to unspecified organism Sepsis acute organ dysfunction status: unspecified Qualified Code(s): A41.9 - Sepsis, unspecified organism Is this a current diagnosis for this admission?: Yes Plan: This is resolved at this time suspect secondary to pneumonia and bacteremia. He was initially treated with vancomycin and Zosyn and was transitioned to cefazolin. Infectious disease was consulted and recommended continued treatment with cefazolin. Treatment and further evaluation otherwise as stated above. (11) Urinary retention Is this a current diagnosis for this admission?: Yes Plan: - townsend removed - able to urinate spontaneously (12) Polysubstance abuse Is this a current diagnosis for this admission?: Yes Plan: Patient has a history of THC and cocaine use. He denies IV drug use at this time. Urine drug screen on admission was negative. Provided patient with education and encouragement regarding abstinence from drug use. Otherwise no treatment or attention necessary at this time. - Time Time Spent with patient: 25-34 minutes Anticipated Discharge Disposition: Home, Self Care Anticipated Discharge Timeframe: to be determined
--- NOTE | 2019-11-10 13:00 | EKG REPORT ---
SEVERITY:- ABNORMAL ECG - SINUS RHYTHM LOW VOLTAGE IN FRONTAL LEADS PROBABLE POSTERIOR INFARCT : Confirmed by: Juan Pablo Holm MD 10-Nov-2019 12:59:46
[2019-11-10 13:55] LABS: INTERNATIONAL RATION (INR) 1.49; PROTHROMBIN TIME 18.2 SEC (11.4-15.4)
--- NOTE | 2019-11-10 16:28 | RADIOLOGY REPORT (SQ) ---
EXAM DESCRIPTION: CHEST SINGLE VIEW IMAGES COMPLETED DATE/TIME: 11/10/2019 4:20 pm REASON FOR STUDY: POST THORA FOR RT PLEURAL EFFUSION COMPARISON: 11/06/2019 EXAM PARAMETERS: NUMBER OF VIEWS: One view. TECHNIQUE: Single frontal radiographic view of the chest acquired. RADIATION DOSE: NA LIMITATIONS: None. FINDINGS: LUNGS AND PLEURA: Persistent patchy bibasilar airspace disease, right greater than left. Interval increased size of the right-sided pleural effusion compared to prior. Placement of a small bore right-sided chest tube. No significant pneumothorax. MEDIASTINUM AND HILAR STRUCTURES: No masses. Contour normal. HEART AND VASCULAR STRUCTURES: Heart normal in size. Normal vasculature. BONES: No acute findings. HARDWARE: None in the chest. OTHER: No other significant finding. IMPRESSION: Persistent patchy bibasilar opacities, right greater than left. Mildly increased right- sided pleural effusion with interval placement of a small bore right-sided chest tube. No significan t pneumothorax. TECHNICAL DOCUMENTATION: JOB ID: [id number] 2010 [email or web address]- All Rights Reserved Reading location - IP/workstation name: [email or web address]
--- NOTE | 2019-11-10 16:34 | RADIOLOGY REPORT (SQ) ---
EXAM DESCRIPTION: U/S THORACENTESIS W/CHEST TUBE IMAGES COMPLETED DATE/TIME: 11/10/2019 4:20 pm REASON FOR STUDY: RT PLEURAL EFFUSION W/ CHEST TUBE COMPARISON: CT 11/09/2019 FLUORO TIME: Ultrasound utilized 1 images saved to PACS. TECHNIQUE: Image guided chest tube placement using sterile technique. LIMITATIONS: None FINDINGS: After written consent was obtained and explaining the risks and benefits of conscious loco tion , the patient was placed upright. A time out was then called for site verification. An entry si te was then marked using ultrasound guidance. The posterior right wall was then prepped and draped in a sterile fashion. The site was then anesthetized using 10 ml of 1% lidocaine solution. An 11 blad e scalpel was used to make a small skin incision. A 6 [place]ian Tdji-U-Jiijwrlo needle was advanced int o the right pleural space until fluid returned. The stylet was removed and aspiration performed demo nstrating turbid pleural fluid. Decision was made to convert the thoracentesis catheter to a small b ore pigtail catheter. A.038 guidewire was passed through the catheter. The tract was then dilated u sing a 10 dilator. A 10 fr drain was then placed over the wire. The catheter was then attached to t [employer] Pleur-Evac collection device. The entry site was covered with a sterile bandage. Patient tolerated the procedure with local sedation. Documentation face to face time, the performing proceduralist, spent monitoring the patient: 30minute s. IMPRESSION: Ultrasound-guided Right-sided thoracentesis yielded turbid pleural fluid. Placement of a right-sided 10 Colombian small bore chest tube utilizing ultrasound guidance as above. COMMENT: Patient medication list reviewed: Yes- Quality ID# [id number]:Eligible professional attests to do cumenting in the medical record they obtained, updated, or reviewed the patient's current medications . Quality ID 145: Final reports for procedures using fluoroscopy that document radiation exposure hue bruno, or exposure time and number of fluorographic images (if radiation exposure indices are not avail able) TECHNICAL DOCUMENTATION: JOB ID: [id number] 2010 [employer]- All Rights Reserved rev Reading location - IP/workstation name: [email or web address]
--- NOTE | 2019-11-10 16:36 | RADIOLOGY REPORT (SQ) ---
EXAM DESCRIPTION: U/S THORACENTESIS WITH IMAGING IMAGES COMPLETED DATE/TIME: 11/10/2019 4:09 pm REASON FOR STUDY: increasing pleural effusion COMPARISON: CT 11/09/2019 LIMITATIONS: None. PROCEDURE: Procedure, risks, benefit, and alternative explained to patient who then gave written con sent. The posterior left chest wall was marked using ultrasound guidance. A time-out was called for correct marking verification. Chest prepped and draped using sterile technique. Local anesthesia ac hieved using 10 ml of 1% lidocaine injection. A 6fr Safe-T- Centesis set was introduced into the lef t pleural space. Fluid was aspirated. The catheter was removed and the entry site was covered with sterile bandage. No immediate complications noted. Images acquired during the procedure were stored on PACS. FINDINGS: ENTRY SITE: posterior left chest. FLUID VOLUME: 120 cc FLUID ANALYSIS: Straw-colored OTHER: Therapeutic only IMPRESSION: SUCCESSFUL THORACENTESIS USING ULTRASOUND GUIDANCE. COMMENT: Patient medication list reviewed: Yes- Quality ID# [id number]:Eligible professional attests to doc umenting in the medical record they obtained, updated, or reviewed the patient's current medications. TECHNICAL DOCUMENTATION: JOB ID: [id number] 2010 [employer]- All Rights Reserved Reading location - IP/workstation name: [email or web address]
--- NOTE | 2019-11-10 17:28 | RADIOLOGY REPORT (SQ) ---
EXAM DESCRIPTION: PICC INSERTION IMAGES COMPLETED DATE/TIME: 11/10/2019 5:18 pm REASON FOR STUDY: IV abx for endocarditis COMPARISON: None. FLUOROSCOPY TIME: 13 seconds of fluoroscopy was used. 1 images saved to PACS. TECHNIQUE: Fluoroscopic and ultrasound guided PICC placement. LIMITATIONS: None. PROCEDURE: After written consent and assessment were obtained, the patient was brought into the fluo roscopy room and placed supine on the table. Ultrasound evaluation of potential access sites were per formed. After successfully identifying a patent right basilic vein, the right arm was prepped and elisa ped in a sterile fashion along with the ultrasound probe. The entry site was anesthetized with 1% lid ocaine. A 21 gauge 7 cm needle was advanced through the skin and into the basilic vein under live ult rasound guidance. An ultrasound image was saved to PACS confirming access site. A .018 guide wire w as then inserted through the needle and into the venous system. The needle was then removed and an 11 blade scalpel was used to make a 1cm skin incision. A 5 fr peel-away sheath was advanced over the w oscar and into the venous system. A measurement was then made using the existing wire and live fluorosc opic guidance. The wire was then removed and trimmed. The PICC was advanced through the peel-away she ath and into the venous system. The peel-away sheath was removed and the catheter was adhered to the patients arm with a stat lock. The catheter was then aspirated and flushed and a sterile bandage was placed over the access site. A fluoroscopic spot image was saved to PACS confirming the catheter tip within the superior vena cava. IMPRESSION: SUCCESSFUL PLACEMENT OF A 5 FR DUAL LUMEN 22 CM PICC IN THE RIGHT BASILIC VEIN. COMMENT: Patient medication list reviewed: Yes- Quality ID# [id number]:Eligible professional attests to doc umenting in the medical record they obtained, updated, or reviewed the patient's current medications. . Quality ID 145: Final reports for procedures using fluoroscopy that document radiation exposure hue bruno, or exposure time and number of fluorographic images (if radiation exposure indices are not avail able) Quality ID #76: The patient was prepped and draped using maximum sterile barrier technique including cap, mask, sterile gown, sterile gloves, a large sterile sheet, hand hygiene, and 2% Chlorhexidine fo r cutaneous antisepsis. When ultrasound is used, sterile ultrasound techniques are followed requiring sterile gel and sterile probes. TECHNICAL DOCUMENTATION: JOB ID: [id number] 2010 [employer]- All Rights Reserved rev Reading location - IP/workstation name: [email or web address]
--- NOTE | 2019-11-10 17:45 | Progress Note ---
Provider Note Provider Note: [facility] ID Telephone Advice Consultation - Follow Up Patient evaluated due to persistent MSSA bacteremia. Blood cultures have been positive since 10/29, finally seemed to have cleared on 11/06 (negative for 72 hr). TTE was negative for valvular vegetations. But CLOVER now confirming Mitral Valve vegetation. MRI of thoracic and lumbar spine negative for epidural abscess, discitis or vertebral osteomyelitis. CT scan of abdomen and pelvis negative for intra abdominal or pelvic abscess, no prostate enlargement. He does have pneumonia and septic pulmonary emboli. A repeat CT scan of the chest conformed increased in pleural effusions and necrotizing pneumonia vs worsneing septic pulmonary emboli. He is s/p bilateral thoracentesis with pigtail catheter placement. He continues on cefazolin, now full dose. All central lines and urinary catheter removed. New urine culture positive for Serratia spp. He is afebrile, HD stable with O2 sat 100%. Vital Signs: Temp Pulse Resp BP Pulse Ox 97.4 F 79 17 111/86 H 99 11/10/19 09:06 11/10/19 14:00 11/10/19 12:09 11/10/19 12:09 11/10/19 12:09 Intake & Output 11/09/19 11/10/19 11/11/19 06:59 06:59 06:59 Intake Total 4856 4500 2297 Output Total 450 950 300 Balance 4406 3550 1996 Weight 63.3 kg 60.4 kg Weight/Height Weight 60.4 kg Height 5 ft 9 in Laboratories: 11/10/19 09:50 11/10/19 09:50 MCV 84 fl (80-97) 11/10/19 09:50 MCH 27.9 pg (27.0-33.4) 11/10/19 09:50 MCHC 33.4 g/dL (32.0-36.0) 11/10/19 09:50 RDW 18.4 % (11.5-14.0) H 11/10/19 09:50 Seg Neutrophils % 79.3 % (42-78) H 11/10/19 09:50 Retic Count (auto) 0.51 % (0.66-2.85) L 11/05/19 05:15 Carbonic Acid 0.73 mmol/L (1.05-1.35) L 11/02/19 08:40 HCO3/H2CO3 Ratio 24:1 11/02/19 08:40 ABG pH 7.49 (7.35-7.45) H 11/02/19 08:40 ABG pCO2 24.3 mmHg (35-45) L 11/02/19 08:40 ABG pO2 61.4 mmHg (80-100) L 11/02/19 08:40 ABG HCO3 18.2 mmol/L (20-24) L 11/02/19 08:40 ABG O2 Saturation 93.8 % (94-98) L 11/02/19 08:40 ABG Base Excess -3.9 mmol/L 11/02/19 08:40 VBG pH 6.93 (7.30-7.42) L* 10/31/19 05:23 VBG pCO2 26.8 mmHg (35-63) L 10/31/19 05:23 VBG HCO3 5.4 mmol/L (20-32) L 10/31/19 05:23 VBG Base Excess -26.2 mmol/L 10/31/19 05:23 FiO2 35% 11/02/19 08:40 Chloride 115 mmol/L (98-107) H 11/10/19 09:50 Carbon Dioxide 18 mmol/L (22-30) L 11/10/19 09:50 Anion Gap 9 (5-19) 11/10/19 09:50 Est GFR ( Amer) > 60 (>60) 11/10/19 09:50 Est GFR (Non-Af Amer) Cancelled 10/31/19 21:30 Glucose 150 mg/dL (75-110) H 11/10/19 09:50 Lactic Acid 4.1 mmol/L (0.7-2.1) H 10/31/19 05:23 Calcium 7.3 mg/dL (8.4-10.2) L 11/10/19 09:50 Phosphorus 3.4 mg/dL (2.5-4.5) 11/02/19 05:40 Magnesium 1.5 mg/dL (1.6-2.3) L 11/02/19 05:40 Iron 19.3 ug/dL (49-181) L 11/05/19 05:15 TIBC 164 ug/dL (250-450) L 11/05/19 05:15 % Saturation 12 % 11/05/19 05:15 Ferritin 242.00 ng/mL (17.9-464.0) 11/05/19 05:15 Total Bilirubin 0.3 mg/dL (0.2-1.3) 11/10/19 09:50 AST 15 U/L (17-59) L 11/10/19 09:50 Alkaline Phosphatase 148 U/L (38-126) H 11/10/19 09:50 C-Reactive Protein 84.8 mg/L (<10.0) H 11/04/19 06:30 Total Protein 5.5 g/dL (6.3-8.2) L 11/10/19 09:50 Albumin 1.8 g/dL (3.5-5.0) L 11/10/19 09:50 Lipase 316.0 U/L (23-300) H 11/02/19 05:40 Vitamin B12 > 1000.0 pg/mL (239-931) H 11/05/19 05:15 Folate 4.51 ng/mL (>2.76) 11/05/19 05:15 TSH 1.32 uIU/mL (0.47-4.68) 10/31/19 04:05 Free T4 1.03 ng/dL (0.78-2.19) 10/31/19 04:05 Free T3 pg/mL 1.64 pg/mL (2.77-5.27) L 10/31/19 04:05 Urine Color STRAW 11/08/19 11:42 Urine Appearance SLIGHTLY-CLOUDY 11/08/19 11:42 Urine pH 5.0 (5.0-9.0) 11/08/19 11:42 Ur Specific [employer] 1.010 11/08/19 11:42 Urine Protein NEGATIVE mg/dL (NEGATIVE) 11/08/19 11:42 Urine Glucose (UA) NEGATIVE mg/dL (NEGATIVE) 11/08/19 11:42 Urine Ketones NEGATIVE mg/dL (NEGATIVE) 11/08/19 11:42 Urine Blood MODERATE (NEGATIVE) H 11/08/19 11:42 Urine Nitrite NEGATIVE (NEGATIVE) 11/03/19 18:00 Ur Leukocyte Esterase LARGE (NEGATIVE) H 11/03/19 18:00 Urine WBC (Auto) 76 /HPF 11/03/19 18:00 Urine RBC (Auto) 4 /HPF 11/08/19 11:42 Stool Occult Blood POSITIVE (NEGATIVE) 11/04/19 18:46 Stl C.difficile Tox PCR NEGATIVE (NEGATIVE) 11/01/19 17:40 Blood Type A POSITIVE 11/05/19 10:12 Antibody Screen NEGATIVE 11/05/19 10:12 11/08/19 11:42 Clean Catch Midstream Urine Culture - Final Serratia Marcescens 11/06 Blood NGTD 10/30/19 10/30/19 14:51 16:46 Troponin I Cancelled < 0.012 Radiology: Renal Ultrasound 11/03/19 00:00 IMPRESSION: 1. CHRONIC MEDICAL RENAL DISEASE. CALCULUS IN THE LEFT KIDNEY. NO HYDRONEPHROSIS. 2. STONES/SLUDGE IN THE GALLBLADDER. Abdomen/Pelvis CT 11/06/19 00:00 IMPRESSION: 1. Bilateral, fairly dense pneumonias. May represent atypical infectious/ inflammatory process. Small right pleural effusion. Minimal left pleural effusion. 2. Free fluid in the abdomen. 3. Nonobstructing left renal calculus. 4. Chronic pancreatitis. Gallium Scan Nuclear Medicine 11/06/19 00:00 IMPRESSION: Abnormal uptake in the lungs consistent with pneumonia. No evidence of other infection source. Lumbar Spine MRI 11/06/19 00:00 IMPRESSION: 1. 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 Recommend radiographs of the lumbosacral spine. 2. There is some mild concentric disc bulge at L3-4 with mild central canal som noses. No significant foraminal stenoses are seen. Thoracic Spine MRI 11/06/19 00:00 IMPRESSION: 1. Normal appearance about the thoracic spine. 2. Bilateral pleural and airspace disease as noted on recent chest x-ray. Thoracic esophagus is also dilated and partially fluid-filled. Chest CT 11/09/19 00:00 IMPRESSION: Increasing multifocal dense consolidations with multiple cavitary lesions demonstrating increased nodular thickening of the moore. Likewise, increased bilateral pleural effusions and upper abdominal ascites. Chest X-Ray 11/10/19 00:00 IMPRESSION: Persistent patchy bibasilar opacities, right greater than left. Mildly increased right-sided pleural effusion with interval placement of a small bore right-sided chest tube. No significant pneumothorax. PICC Line Insertion 11/10/19 00:00 IMPRESSION: SUCCESSFUL PLACEMENT OF A 5 FR DUAL LUMEN 22 CM PICC IN THE RIGHT BASILIC VEIN. Thoracentesis Ultrasound 11/10/19 00:00 IMPRESSION: SUCCESSFUL THORACENTESIS USING ULTRASOUND GUIDANCE. Assessment and Recommendations: Patient with persistent MSSA bacteremia since 10/29 finally cleared the bacteremia on 11/06. CLOVER confirmed MV endocarditis which explains difficulty clearing the bacteremia. He also had bilateral pleural effusions which have been successfully drained. New blood cultures remain negative for 72 hr. NO other sites of metastatic infection. He will need 6 weeks of cefazolin 2g IV every 8 hr from negative blood cultures (EOT 12/19/19). He has a small vegetation, but will recommend CT surgery evaluation especially with worsening LE edema reported. Please call if any questions. Rosa Maria Richter MD [facility] ID [id number]
[2019-11-10] MEDS ORDERED: NORMAL SALINE 10 ML SDV (AFTER EACH USE) IV PRN (18:30)
--- NOTE | 2019-11-10 18:30 | RADIOLOGY REPORT (SQ) ---
EXAM DESCRIPTION: CHEST SINGLE VIEW IMAGES COMPLETED DATE/TIME: 11/10/2019 6:01 pm REASON FOR STUDY: POST THORA FOR RT PLEURAL EFFUSION COMPARISON: Earlier exam at 1530 hours TECHNIQUE: Single frontal radiographic view of the chest acquired. NUMBER OF VIEWS: One view. LIMITATIONS: None. FINDINGS: LUNGS AND PLEURA: No pneumothorax identified. Similar bibasilar consolidation and right p leural effusion. MEDIASTINUM AND HILAR STRUCTURES: Stable. HEART AND VASCULAR STRUCTURES: Stable. BONES: No acute findings. HARDWARE: Right pleural pigtail drainage catheter. Right PICC line catheter new since the prior y, tip overlies the SVC near the level of the nieves. OTHER: No other significant finding. IMPRESSION: Right pleural pigtail drainage catheter. Right PICC line catheter new since the prior st , tip overlies the SVC near the level of the nieves. Similar bibasilar consolidation and right ple ural effusion. TECHNICAL DOCUMENTATION: JOB ID: [id number] [place]-72 2010 [employer]- All Rights Reserved Reading location - IP/workstation name: [email or web address]
--- NOTE | 2019-11-10 18:53 | PDOC CONSULTATION ---
Consultation Consult Date: 11/10/19 Provider Consulted: ALFREDITO JENKINS Consult reason:: Right chest tube and right pleural effusion management History of Present Illness Admission Date/PCP: 10/30/19 20:07 History of Present Illness: CHESTER MCKEON is a 39 year old male, with type 1 diabetes mellitus, bilateral patchy lung infiltrates, with bilateral pleural effusion right greater than left. The patient underwent placement of right PICC line today as well as right small pigtail catheter for right pleural effusion. I been consulted to manage the right pigtail chest tube and right pleural effusion. Past Medical History Cardiac Medical History: Reports: Hyperlipidema, Hypertension Denies: Coronary Artery Disease, Myocardial Infarction Pulmonary Medical History: Denies: Asthma, Chronic Obstructive Pulmonary Disease (COPD), Sleep Apnea Neurological Medical History: Denies: Migraine, Seizures Endocrine Medical History: Reports: Diabetes Mellitus Type 1 - Diagnosed 2010 Denies: Hyperthyroidism, Hypothyroidism Renal/ Medical History: Denies: End Stage Renal Disease GI Medical History: Reports: Gastroesophageal Reflux Disease, Other - Pancreatitis Denies: Cirrhosis, Hepatitis Musculoskeltal Medical History: Denies: Arthritis, Fibromyalgia Skin Medical History: Denies: Eczema, Psoriasis Psychiatric Medical History: Reports: Depression Hematology: Reports: Anemia Denies: Bleeding Tendencies Infectious Medical History: Reports: Methicillin-Resistant Staph Aureus Denies: Clostridium Difficile Past Surgical History Past Surgical History: Reports: Orthopedic Surgery - back, left long finger PIP disarticulation, right hand I&D Denies: Appendectomy, Cholecystectomy, Tonsillectomy Social History Lives with: Alone Smoking Status: Current Every Day Smoker Electronic Cigarette use?: No Frequency of Alcohol Use: None Hx Recreational Drug Use: Yes - Last used 2 months ago. Drugs: Cocaine, Marijuana Hx Prescription Drug Abuse: No - Advance Directive Resuscitation Status: Full Code Family History Family History: DM, Hyperlipidemia, Hypertension Parental Family History Reviewed: No Children Family History Reviewed: No Sibling(s) Family History Reviewed.: No Medication/Allergy Home Medications: Insulin Aspart [Novolog Flexpen] 0 unit SUBCUT .SLD SCALE 09/26/19 Insulin Glargine,Hum.rec.anlog [Lantus Insulin 100 Unit/1 ml 10 ml] 25 unit SQ Q12 09/26/19 Lipase/Protease/Amylase [Nate Rodríguez 36,000 Units Capsule] 1 cap PO .SNACKS 09/26/19 Lipase/Protease/Amylase [Nate Rodríguez 36,000 Units Capsule] 1 cap PO AC 09/26/19 Insulin Lispro [Humalog Insulin (Lispro) 100 unit/mL] 5 unit SUBCUT AC #10 vial 09/30/19 Metoclopramide HCl [Reglan] 5 mg PO MEALS #90 tablet 09/30/19 Multivitamin [Tab-A-Ever (Multiple Vitamin) Tablet] 1 tab PO DAILY #30 tablet 09/30/19 Allergies/Adverse Reactions: ondansetron [From Zofran (as hydrochloride)] Allergy (Severe, Verified 10/30/19 18:44) Difficulty breathing Physical Exam Vital Signs: Temp Pulse Resp BP Pulse Ox 97.4 F 79 17 111/86 H 99 11/10/19 09:06 11/10/19 14:00 11/10/19 12:09 11/10/19 12:09 11/10/19 12:09 Intake & Output 11/09/19 11/10/19 11/11/19 06:59 06:59 06:59 Intake Total 4856 4500 2522 Output Total 450 950 750 Balance 4406 3550 1772 Weight 63.3 kg 60.4 kg General appearance: PRESENT: no acute distress, thin, other - Poorly nourished Head exam: PRESENT: atraumatic Eye exam: PRESENT: EOMI Teeth exam: PRESENT: poor dentation Neck exam: PRESENT: full ROM Respiratory exam: PRESENT: clear to auscultation alfonso, other - Right side small pigtail catheter inserted in the posterior mid-chest; approximately 65 mL of clear serous fluid is present, no air leak detected Cardiovascular exam: PRESENT: RRR GI/Abdominal exam: PRESENT: soft Neurological exam: PRESENT: alert, awake Skin exam: PRESENT: warm Results Laboratory Results: 11/10/19 09:50 11/10/19 09:50 11/10/19 11/10/19 09:50 09:50 WBC 7.2 RBC 3.09 L Hgb 8.6 L Hct 25.8 L MCV 84 MCH 27.9 MCHC 33.4 RDW 18.4 H Plt Count 156 Seg Neutrophils % 79.3 H Sodium 141.8 Potassium 4.4 Chloride 115 H Carbon Dioxide 18 L Anion Gap 9 BUN 41 H Creatinine 1.35 H Est GFR ( Amer) > 60 Glucose 150 H Calcium 7.3 L Total Bilirubin 0.3 AST 15 L Alkaline Phosphatase 148 H Total Protein 5.5 L Albumin 1.8 L 11/08/19 11:42 Clean Catch Midstream Urine Culture - Final Serratia Marcescens 10/30/19 10/30/19 14:51 16:46 Troponin I Cancelled < 0.012 Impressions: Renal Ultrasound 11/03/19 00:00 IMPRESSION: 1. CHRONIC MEDICAL RENAL DISEASE. CALCULUS IN THE LEFT KIDNEY. NO HYDRONEPHROSIS. 2. STONES/SLUDGE IN THE GALLBLADDER. Abdomen/Pelvis CT 11/06/19 00:00 IMPRESSION: 1. Bilateral, fairly dense pneumonias. May represent atypical infectious/ inflammatory process. Small right pleural effusion. Minimal left pleural effusion. 2. Free fluid in the abdomen. 3. Nonobstructing left renal calculus. 4. Chronic pancreatitis. Gallium Scan Nuclear Medicine 11/06/19 00:00 IMPRESSION: Abnormal uptake in the lungs consistent with pneumonia. No ev idence of other infection source. Lumbar Spine MRI 11/06/19 00:00 IMPRESSION: 1. 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 Recommend radiographs of the lumbosacral spine. 2. There is some mild concentric disc bulge at L3-4 with mild central canal stenoses. No significant foraminal stenoses are seen. Thoracic Spine MRI 11/06/19 00:00 IMPRESSION: 1. Normal appearance about the thoracic spine. 2. Bilateral pleural and airspace disease as noted on recent chest x-ray. Thoracic esophagus is also dilated and partially fluid-filled. copyright 2010 [employer]- All Rights Reserved Chest CT 11/09/19 00:00 IMPRESSION: Increasing multifocal dense consolidations with multiple cavitary lesions demonstrating increased nodular thickening of the moore. Likewise, increased bilateral pleural effusions and upper abdominal ascites. PICC Line Insertion 11/10/19 00:00 IMPRESSION: SUCCESSFUL PLACEMENT OF A 5 FR DUAL LUMEN 22 CM PICC IN THE RIGHT BASILIC VEIN. Thoracentesis Ultrasound 11/10/19 00:00 IMPRESSION: SUCCESSFUL THORACENTESIS USING ULTRASOUND GUIDANCE. Chest X-Ray 11/10/19 17:00 IMPRESSION: Right pleural pigtail drainage catheter. Right PICC line catheter new since the prior study, tip overlies the SVC near the level of the nieves. Similar bibasilar consolidation and right pleural effusion. Assessment & Plan - Diagnosis (1) Pleural effusion, right Is this a current diagnosis for this admission?: Yes (2) Abnormal CT scan, chest Is this a current diagnosis for this admission?: Yes (3) Diabetes mellitus type 1, uncontrolled Qualifiers: Glycemic state: with hypoglycemia Coma presence: without coma Qualified Code(s): E10.649 - Type 1 diabetes mellitus with hypoglycemia without coma - Plan Summary Plan Summary: Assessment: 89-year-old -[place] male with type 1 diabetes and related complications Bilateral patchy lung infiltrates Status post placement of right pigtail chest tube for pleural effusion in interventional radiology today Physical examination reveals a right posterior chest tube with approximately 65 mL of clear fluid in the Pleur-evac, no air leak detected Postprocedural chest x-ray reveals no significant complications, no pneumothorax Plan: Right-sided chest tube management will be done on a daily basis according to the output is well and the medical needed to keep the chest tube in place.
--- NOTE | 2019-11-10 18:57 | Progress Note ---
Provider Note Provider Note: [facility] ID Addendum: Patient's urine culture was positive for Serratia. This could be due to previous catheter. If patient is clinically stable (afebrile, no leukocytosis), no urinary symptoms, may observe. If there are urinary symptoms, can treat for CAUTI with either ciprofloxacin 500 mg po bid x 5 days or bactrim DS bid for 5 days. Rosa Maria Richter MD [facility] ID [id number]
[2019-11-10] MEDS ORDERED: MEROPENEM 1 GM VIAL IV SCH (21:15)
[2019-11-10] MEDS: MEROPENEM 1 GM in NORMAL SALINE 50 ML IV SCH (22:29)
[2019-11-10] MEDS: NORMAL SALINE 10 ML SDV (SCHEDULED) IV SCH (22:30)
[2019-11-11] MEDS: OXYCODONE-ACETAMINOPHEN 5-325 MG TABLET PO PRN ×4 (02:20→23:33)
[2019-11-11] MEDS: RINGERS SOLUTION,LACTATED 1,000 ML IV PRN ×2 (02:26→08:34)
[2019-11-11] MEDS: PROMETHAZINE HCL INJ 25 MG/1 ML VIAL IV PRN ×4 (02:28→21:34)
[2019-11-11] MEDS: MEROPENEM 1 GM in NORMAL SALINE 50 ML IV SCH (07:01)
[2019-11-11] MEDS: INSULIN REG, HUMAN 100 UNIT/ML 3 ML VIAL (PYX) SUBCUT SCH ×4 (08:03→21:59)
[2019-11-11] MEDS: METOCLOPRAMIDE HCL 10 MG TABLET PO SCH (08:24)
[2019-11-11] MEDS: LIPASE/PROTEASE/AMYLASE 1 CAP CAPSULE.DR PO SCH (08:28)
[2019-11-11 09:16] LABS: ALBUMIN 1.7 g/dL (3.5-5.0); ALKALINE PHOSPHATASE 132 U/L (38-126); ANION GAP 8 (5-19); ASPARTATE AMINO TRANSFERASE 13 U/L (17-59); BILIRUBIN,DIRECT 0.2 mg/dL (0.0-0.4); BILIRUBIN,TOTAL 0.2 mg/dL (0.2-1.3); BLOOD UREA NITROGEN 40 mg/dL (7-20); CALCIUM 7.2 mg/dL (8.4-10.2); CARBON DIOXIDE 21 mmol/L (22-30); CHLORIDE 115 mmol/L (98-107); GLUCOSE 70 mg/dL (75-110); POTASSIUM 4.2 mmol/L (3.6-5.0); TOTAL PROTEIN 5.4 g/dL (6.3-8.2)
[2019-11-11 09:45] LABS: ABSOLUTE EOSINOPHILS # (AUTO) 0.1 10^3/uL (0.0-0.6); ABSOLUTE LYMPHOCYTES (AUTO) 0.8 10^3/uL (0.5-4.7); ABSOLUTE MONOCYTES (AUTO) 0.3 10^3/uL (0.1-1.4); ABSOLUTE NEUT (AUTO) 3.7 10^3/uL (1.7-8.2); BASOPHILS % (AUTO) 0.7 % (0-2); EOSINOPHILS % (AUTO) 1.4 % (0-6); HEMATOCRIT 24.1 % (37.9-51.0); HEMOGLOBIN 8.1 g/dL (13.5-17.0); LYMPHOCYTES % (AUTO) 15.8 % (13-45); MEAN CORPUSCULAR HEMOGLOBIN 27.7 pg (27.0-33.4); MEAN CORPUSCULAR HGB CONC 33.5 g/dL (32.0-36.0); MEAN CORPUSCULAR VOLUME 83 fl (80-97); MONOCYTES % (AUTO) 6.5 % (3-13); RED BLOOD COUNT 2.91 10^6/uL (4.35-5.55); RED CELL DISTRIBUTION WIDTH 18.5 % (11.5-14.0); SEGMENTED NEUTROPHILS % (AUTO) 75.6 % (42-78); TOTAL CELLS COUNTED % (AUTO) 100 %
[2019-11-11 09:47] LABS: PLATELET COUNT 162 10^3/uL (150-450)
[2019-11-11] MEDS ORDERED: PHARMACY COMMUNICATION ORDER MC NR (10:45)
[2019-11-11] MEDS ORDERED: FUROSEMIDE INJ/PF 20 MG/2 ML SDV IV ONE (11:11)
[2019-11-11] MEDS ORDERED: ACETAMINOPHEN 325 MG TABLET NG PRN (11:30)
[2019-11-11] MEDS: NORMAL SALINE 10 ML SDV (SCHEDULED) IV SCH ×2 (11:57→21:33)
[2019-11-11] MEDS: FAMOTIDINE INJ/PF 20 MG/2 ML SDV IV SCH ×2 (11:57→17:53)
[2019-11-11] MEDS: LINEZOLID 600 MG/300 ML RTUPB IV SCH ×2 (11:58→21:34)
--- NOTE | 2019-11-11 13:31 | RADIOLOGY REPORT (SQ) ---
EXAM DESCRIPTION: KUB/ABDOMEN (SINGLE VIEW) IMAGES COMPLETED DATE/TIME: 11/11/2019 12:26 pm REASON FOR STUDY: Check Placement of NG Tube COMPARISON: 05/13/2018. NUMBER OF VIEWS: One view. TECHNIQUE: Supine radiographic image of the upper abdomen acquired. LIMITATIONS: None. FINDINGS: BOWEL GAS PATTERN: Normal bowel gas pattern. No dilated loops. CALCIFICATIONS: Pancreatic calcifications. SOFT TISSUES: No gross mass or suggestion of organomegaly. HARDWARE: Tip of the nasogastric tube in the stomach. BONES: No acute fracture. No worrisome bone lesions. OTHER: No other significant finding. IMPRESSION: TIP OF THE NASOGASTRIC TUBE IN THE STOMACH. TECHNICAL DOCUMENTATION: JOB ID: [id number] 2010 [employer]- All Rights Reserved Reading location - IP/workstation name: [email or web address]
--- NOTE | 2019-11-11 13:40 | PDOC PROGRESS REPORT ---
Subjective Progress Note for:: 11/11/19 Subjective:: FEELS OK MIN PAIN NG INSERTED FOR N G FEEDING Reason For Visit: DKA Physical Exam Vital Signs: Temp Pulse Resp BP Pulse Ox 97.2 F 84 18 112/88 H 100 11/11/19 10:58 11/11/19 10:58 11/11/19 10:58 11/11/19 10:58 11/11/19 10:58 Intake & Output 11/10/19 11/11/19 11/12/19 06:59 06:59 06:59 Intake Total 4500 4872 50 Output Total 950 1165 300 Balance 3550 3707 -250 Weight 60.4 kg 63.3 kg General appearance: PRESENT: other - CHRONICALLY ILL Head exam: PRESENT: atraumatic Eye exam: PRESENT: EOMI Ear exam: PRESENT: normal external ear exam Mouth exam: PRESENT: moist Teeth exam: PRESENT: poor dentation Respiratory exam: PRESENT: clear to auscultation alfonso, other - SL DECREASED RT SIDE Cardiovascular exam: PRESENT: RRR Pulses: PRESENT: normal radial pulses, normal femoral pulses GI/Abdominal exam: PRESENT: soft Rectal exam: PRESENT: deferred Extremities exam: PRESENT: full ROM Musculoskeletal exam: PRESENT: normal inspection Neurological exam: PRESENT: alert, awake, oriented to person, oriented to place Psychiatric exam: PRESENT: appropriate affect Skin exam: PRESENT: dry Results Laboratory Results: 11/11/19 08:20 11/11/19 08:20 11/11/19 11/11/19 08:20 08:20 WBC 5.0 RBC 2.91 L Hgb 8.1 L Hct 24.1 L MCV 83 MCH 27.7 MCHC 33.5 RDW 18.5 H Plt Count 162 Seg Neutrophils % 75.6 Sodium 143.8 Potassium 4.2 Chloride 115 H Carbon Dioxide 21 L Anion Gap 8 BUN 40 H Creatinine 1.46 H Est GFR ( Amer) > 60 Glucose 70 L Calcium 7.2 L Total Bilirubin 0.2 AST 13 L Alkaline Phosphatase 132 H Total Protein 5.4 L Albumin 1.7 L 11/10/19 01:49 Blood Blood Culture (PCR) - Final Enterococcus Species Serratia Marcescens 10/30/19 10/30/19 11/11/19 14:51 16:46 12:20 Troponin I Cancelled < 0.012 NT-Pro-B Natriuret Pep 2970 H Impressions: Renal Ultrasound 11/03/19 00:00 IMPRESSION: 1. CHRONIC MEDICAL RENAL DISEASE. CALCULUS IN THE LEFT KIDNEY. NO HYD RONEPHROSIS. 2. STONES/SLUDGE IN THE GALLBLADDER. Abdomen/Pelvis CT 11/06/19 00:00 IMPRESSION: 1. Bilateral, fairly dense pneumonias. May represent atypical infectious/ inflammatory process. Small right pleural effusion. Minimal left pleural effusion. 2. Free fluid in the abdomen. 3. Nonobstructing left renal calculus. 4. Chronic pancreatitis. Gallium Scan Nuclear Medicine 11/06/19 00:00 IMPRESSION: Abnormal uptake in the lungs consistent with pneumonia. No evidence of other infection source. Lumbar Spine MRI 11/06/19 00:00 IMPRESSION: 1. 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 Recommend radiographs of the lumbosacral spine. 2. There is some mild concentric disc bulge at L3-4 with mild central canal stenoses. No significant foraminal stenoses are seen. Thoracic Spine MRI 11/06/19 00:00 IMPRESSION: 1. Normal appearance about the thoracic spine. 2. Bilateral pleural and airspace disease as noted on recent chest x-ray. Thoracic esophagus is also dilated and partially fluid-filled. copyright 2010 [employer]- All Rights Reserved Chest CT 11/09/19 00:00 IMPRESSION: Increasing multifocal dense consolidations with multiple cavitary lesions demonstrating increased nodular thickening of the moore. Likewise, increased bilateral pleural effusions and upper abdominal ascites. PICC Line Insertion 11/10/19 00:00 IMPRESSION: SUCCESSFUL PLACEMENT OF A 5 FR DUAL LUMEN 22 CM PICC IN THE RIGHT BASILIC VEIN. Thoracentesis Ultrasound 11/10/19 00:00 IMPRESSION: SUCCESSFUL THORACENTESIS USING ULTRASOUND GUIDANCE. Chest X-Ray 11/10/19 17:00 IMPRESSION: Right pleural pigtail drainage catheter. Right PICC line catheter new since the prior study, tip overlies the SVC near the level of the nieves. Similar bibasilar consolidation and right pleural effusion. KUB X-Ray 11/11/19 10:43 IMPRESSION: TIP OF THE NASOGASTRIC TUBE IN THE STOMACH. Assessment & Plan - Time Anticipated Discharge Disposition: Home, Self Care Anticipated Discharge Timeframe: UNK - Plan Summary Plan Summary: RIGHT PLEURAL EFFUSION S/P PERC DRAIN DRAIN APPROX 40CC YESTERDAY NO RESPIRATORY VARIATION WILL CONT SUCTION PROB DC DRAIN IN 1-2 DAYS RECHECK CXR TOMORROW.
[2019-11-11] MEDS: ALBUMIN HUMAN 12.5 GM/50 ML RTUINJ IV SCH ×2 (13:49→15:00)
[2019-11-11] MEDS: LACTOBACILLUS ACIDOPHILUS 250 MG TAB NG SCH ×2 (13:52→17:57)
[2019-11-11] MEDS: DRONABINOL 2.5 MG CAPSULE NG SCH ×2 (13:52→18:00)
[2019-11-11] MEDS: METOCLOPRAMIDE HCL ORAL SOLN 10 MG/10 ML UDCUP NG SCH ×2 (13:53→17:59)
[2019-11-11] MEDS: MULTIVITAMIN ORAL LIQUID 60 ML NG SCH (13:57)
[2019-11-11] MEDS ORDERED: DRONABINOL 2.5 MG CAPSULE NG SCH (18:00)
[2019-11-11] MEDS ORDERED: LACTOBACILLUS ACIDOPHILUS 250 MG TAB NG SCH (18:00)
--- NOTE | 2019-11-11 20:26 | PDOC PROGRESS REPORT ---
Subjective Progress Note for:: 11/11/19 Subjective:: Mr. Feng Granado is a 39-year-old -[place] male with a longstanding history of type 1 diabetes, with multiple admissions for DKA. Also has a history of pancreatitis, depression, hyperlipidemia, and hypertension. Presented to the ED via EMS was found by family members unconscious covered in his own feces. Upon arrival to the ED he was found to have a blood sugar when evaluated in the ED he was found to have a blood sugar of 1037, sodium 120.4, bicarb 6, creatinine 3.94, and a calcium of 6.8. He was given 4 L normal saline in the ED and started on an insulin drip per protocol. Initial blood gas pH 7.01 PCO2 of 26.6 PO2 122 HCO3 6.5. He is admitted to the ICU for further management of DKA. 10/31 The patient appears to be doing a little better. His blood sugar is better and he is off the insulin drip. His AG is now 13. he is on small dose of intermediate insulin and coverage. His renal fn. remains abnormal. We gave him a fair amount of fluid yesterday but creatinine remians about 3. Has received multiple doses of calcium for his low Ca++. When corrected for his low albumin irt is not really low or modestly so. he has grown out multiple + blood cultures with staph aureus and enterococcus the source unclear he did have a dirty urine on admission. I doid ask for an ECHO to r/o endocarditis and will send surveillance cultures in the near future as well. Hypothermia resolved. 11/01 the patient overall appears to be doing better. His blood sugar dropped overnight so I stopped his Lantus. he has been started on feeds. He is emaciated. his mother attributes it to his pancreatitis. I asked her what the etiology was but she was unsure. The patient reportedly has chronic diarrhea on the basis of this pancreatitis I am repeating his lipase. His CXR yesterday looked worse. He has bilateral lower lobe densities. Has been on Zosynand Vanco. I sent off request for sputum fungus and AFB. in addition, i requested HIV test for patient given his malnutrition and these infiltrates. I would like to extubate the patient today if possible. The patient haad multiple positive blood cultures for MRSA. He had an ECHO yesterday which did not suggest any evidence of a valvular vegetation. 11/02 DKA resolved. Blood sugars controlled. Lipase close to normal presently. There was some confusion originally concerning the patient's cultures. For reasons not completely understood the patient had 4 positive blood cultures for Staph aureus. The last of these was as late as yesterday. His ECHO was negative for endocarditis. The patient grew MRSA from his urine so it was not related. 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 There does not appear to be a drainable source of infx. I would ordinarilyr CT chest/abdo/pelvis given the bacteremia but the patient has ongoing significant renal dysfn. Transferred out of the ICU 11/04/19. Continued on IV fluids and abx 11/05/19. ID consulted suggest CLOVER, MRI and abdominal CT to look for source of bacteremia MSSA. Continued on cefazolin 11/06/19. MRI thoraco/lumbar negative for abscess. CT abdomen free fluid in the abdomen, non obstructing left renal calculus. chronic pancreatitis, bilateral pneumonia. 11/07/19. Patient was seen and examined at bedside. He still complains of chest pain, appetite is still fair. He is scheduled for CLOVER tomorrow. He has been afebrile. On D5 of ancef. 11/08/19. He was seen and examined at bedside. He complains of pain on his left side along his anterior axillary line, worse when he takes a deep breath. His appetite is still poor. He has been afebrile, no cough, no complains of SOB. CLOVER was note done today, rescheduled for tomorrow. He is on D6 of Ancef prior to that he received total of 2 days zosyn. 11/09/19. He was seen and examined at bedside. Still has pain on his left side with deep breathing. He is scheduled for CLOVER today. Blood cultures reviewed Blood Cx drawn 11/06/19 still growing MSSA on 1 bottle. repeat urine culture gram negative rods. ID following. Repeat CT chest and blood cultures ordered. Patients mother asking if he can sign a health care power of erisa attorney. Patient confirms he is choosing his mother as HCPOA. 11/10/19. He was seen and examined at bedside. He was sitting on a chair eating breakfast. Complains of bilateral leg swelling, left sided chest wall pain. No SOB, no palpitations. He also complains of weakness generalized. CLOVER that was done yesterday showed mitral valve vegetation 0.6x0.7cm. He is on cefazolin. 11/11/19. He was seen and examined at bedside. he complains of increased weakness, decreased appetite and bilateral leg swelling. Repeat blood culture drawn 11/10/19 growing VRE, serratia marsescens. Pleural fluid growing gram- negative rods. He also underwent thoracentesis yesterday due to increasing pleural effusion, chest tube was placed to drain fluid because it is highly concerning for empyema. PICC line placed. He has bilateral leg swelling which I suspect is coming from his low albumin due to poor oral intake. I have switched his antibiotics to linezolid. And I have also started him on Bactrim for Serratia growing in his urine. NG tube was inserted to start enteral feeding due to poor appetite. He was also given albumin infusion with 1 dose of Lasix. Reason For Visit: DKA Physical Exam Vital Signs: Temp Pulse Resp BP Pulse Ox 97.5 F 90 18 117/88 H 100 11/11/19 16:25 11/11/19 16:25 11/11/19 16:25 11/11/19 16:25 11/11/19 16:25 Intake & Output 11/10/19 11/11/19 11/12/19 06:59 06:59 06:59 Intake Total 4500 4872 1625 Output Total 950 1165 1000 Balance 3550 3707 625 Weight 60.4 kg 63.3 kg General appearance: PRESENT: mild distress, thin, other - weak and frail looking Head exam: PRESENT: atraumatic, normocephalic Eye exam: PRESENT: conjunctiva pale, EOMI, PERRLA Ear exam: PRESENT: normal external ear exam Mouth exam: PRESENT: moist Neck exam: PRESENT: full ROM Respiratory exam: PRESENT: decreased breath sounds, rales, symmetrical. ABSENT: tachypnea, wheezes Cardiovascular exam: PRESENT: RRR, +S1, +S2 Pulses: PRESENT: normal radial pulses GI/Abdominal exam: PRESENT: normal bowel sounds, soft. ABSENT: rebound, tenderness Extremities exam: PRESENT: pedal edema, +2 edema Musculoskeletal exam: PRESENT: full ROM Neurological exam: PRESENT: awake, oriented to person, oriented to place, oriented to time, other - He looks very frail and deconditioned Psychiatric exam: PRESENT: normal mood Skin exam: PRESENT: normal color Results Laboratory Results: 11/11/19 08:20 11/11/19 08:20 11/11/19 11/11/19 08:20 08:20 WBC 5.0 RBC 2.91 L Hgb 8.1 L Hct 24.1 L MCV 83 MCH 27.7 MCHC 33.5 RDW 18.5 H Plt Count 162 Seg Neutrophils % 75.6 Sodium 143.8 Potassium 4.2 Chloride 115 H Carbon Dioxide 21 L Anion Gap 8 BUN 40 H Creatinine 1.46 H Est GFR ( Amer) > 60 Glucose 70 L Calcium 7.2 L Total Bilirubin 0.2 AST 13 L Alkaline Phosphatase 132 H Total Protein 5.4 L Albumin 1.7 L 11/10/19 01:49 Blood Blood Culture (PCR) - Final Enterococcus Species Serratia Marcescens 10/30/19 10/30/19 11/11/19 14:51 16:46 12:20 Troponin I Cancelled < 0.012 NT-Pro-B Natriuret Pep 2970 H Impressions: Renal Ultrasound 11/03/19 00:00 IMPRESSION: 1. CHRONIC MEDICAL RENAL DISEASE. CALCULUS IN THE LEFT KIDNEY. NO HYDRONEPHROSIS. 2. STONES/SLUDGE IN THE GALLBLADDER. Abdomen/Pelvis CT 11/06/19 00:00 IMPRESSION: 1. Bilateral, fairly dense pneumonias. May represent atypical infectious/ inflammatory process. Small right pleural effusion. Minimal left pleural effusion. 2. Free fluid in the abdomen. 3. Nonobstructing left renal calculus. 4. Chronic pancreatitis. Gallium Scan Nuclear Medicine 11/06/19 00:00 IMPRESSION: Abnormal uptake in the lungs consistent with pneumonia. No evidence of other infection source. Lumbar Spine MRI 11/06/19 00:00 IMPRESSION: 1. 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 Recommend radiographs of the lumbosacral spine. 2. There is some mild concentric disc bulge at L3-4 with mild central canal stenoses. No significant foraminal stenoses are seen. Thoracic Spine MRI 11/06/19 00:00 IMPRESSION: 1. Normal appearance about the thoracic spine. 2. Bilateral pleural and airspace disease as noted on recent chest x-ray. Thoracic esophagus is also dilated and partially fluid-filled. copyright 2010 [employer]- All Rights Reserved Chest CT 11/09/19 00:00 IMPRESSION: Increasing multifocal dense consolidations with multiple cavitary lesions demonstrating increased nodular thickening of the moore. Likewise, increased bilateral pleural effusions and upper abdominal ascites. PICC Line Insertion 11/10/19 00:00 IMPRESSION: SUCCESSFUL PLACEMENT OF A 5 FR DUAL LUMEN 22 CM PICC IN THE RIGHT BASILIC VEIN. Thoracentesis Ultrasound 11/10/19 00:00 IMPRESSION: SUCCESSFUL THORACENTESIS USING ULTRASOUND GUIDANCE. Chest X-Ray 11/10/19 17:00 IMPRESSION: Right pleural pigtail drainage catheter. Right PICC line catheter new since the prior study, tip overlies the SVC near the level of the nieves. Similar bibasilar consolidation and right pleural effusion. KUB X-Ray 11/11/19 10:43 IMPRESSION: TIP OF THE NASOGASTRIC TUBE IN THE STOMACH. Assessment and Plan - Diagnosis (1) VRE (vancomycin resistant enterococcus) culture positive Is this a current diagnosis for this admission?: Yes Plan: -Repeat blood culture done on 11/09 showed VRE with Serratia marcescens -Antibiotics switched to linezolid from cefazolin -I was told by the nurse today that apparently he still has his right groin central line which resume was removed couple of days ago. I immediately asked her to remove the central line and send catheter tip for culture. 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 Urine culture (11/08/19) gram negative rods Blood culture (11/10/19) VRE and serratia marsescens Blood culture (11/11/19) pending Pleural fluid culture (11/10/19) growing gram negative rods TTE negative for vegetations CXR (10/29) RML PNA CT Chest (11/02) very dense consolidation throughout bilateral lower lobes and lateral segment of right middle lobe worrisome for pneumonia. More prominent than 10/29. Multifocal small cavity infiltrates/nodules present to the bilateral upper lobes and lateral aspect of the left lower lobe worrisome for septic emboli. CT abdomen/pelvis bilateral, fairly dense pneumonias. Small right pleural e ffusion. Minimal left pleural effusion. Free fluid in the abdomen. Nonobstructing left renal calculus. Chronic pancreatitis. MRI Thoracic normal appearance thoracic spine. 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 Mild concentric disc bulge at L3-L4 with mild central canal stenosis no significant foraminal stenosis was seen. CT chest increasing multifocal dense consolidations with multiple cavitary lesions demonstrating increased nodular thickening of the moore. Likewise increased bilateral pleural effusions and upper abdominal ascites. CLOVER 0.6x0.7 cm mass attached to the septal leaflet of the mitral valve highly suspicious for vegetation given clinical presentation. Zosyn - received 2 days total Cefazolin - D9 stopped 11/11/19 Linezolid 11/11/19 - INfectious disease following -abx switched to linezolid due to VRE growth - sinus rhythm MA not prolonged. Per CLOVER EF is 55%, LV systolic function normal (3) Bacteremia Is this a current diagnosis for this admission?: Yes Plan: -Blood culture (10/30/19; 1 bottle each set) MSSA and Enterococcus faecalis Urine culture (10/30/19) MSSA Urine culture (10/31/19) MRSA Blood culture (11/02/19; 1/4 bottles) MSSA and Enterococcus faecalis Blood culture (11/04/19) 1 bottle +ve MSSA Blood culture (11/06/19) 1 bottle +ve MSSA Blood culture (11/07/19) no growth 72 hrs. Urine culture (11/08/19) serratia Blood culture 11/10/19 VRE + serratia Blood culture 11/11/19 pending - patient still had a groin central line that has not been removed as opposed to what was previously thought. I ordered its immediate removal today and culture tip was sent for culure - CLOVER showing mitral valve vegetation consistent with endocarditis. - cefazolin total 9 days - Linezolid started 11/11/19 for VRE - ID following (4) Septic pulmonary embolism Is this a current diagnosis for this admission?: Yes Plan: -The patient has persistent infiltrates R> L in the midlung. The density on the right is fairly distinct and has coalesced - He is not short of breath not requiring oxygen - CT chest dense consolidation in the bilateral lower lobe worrisome for pneumonia. Multiple smaller ill-defined cavitary infiltrate/nodules in the upper lobe worrisome for septic emboli. Trace bilateral pleural effusion. Upper abdominal ascites. Calcified pancreas from old pancreatitis. - repeat CT chest increasing multifocal dense consolidations with multiple cavitary lesions demonstrating increased nodular thickening of the moore. Likew ise increased bilateral pleural effusions and upper abdominal ascites. - s/p thoracentesis 11/10/19 - awaiting pleural fluid analysis - surgery following for chest tube management - (5) Parapneumonic effusion Is this a current diagnosis for this admission?: Yes Plan: -Repeat CT of the chest done on November 08 showed increasing multifocal dense consolidations with multiple cavitary lesions demonstrating increased nodular thickening of the moore. Likewise increased bilateral pleural effusions and upper abdominal ascites. -Status post thoracentesis November 10, 2019 with placement of chest tube due to findings concerning for empyema -Pleural fluid analysis pending -Surgery consulted for chest tube management -On Linezolid for VRE (6) Severe protein-calorie malnutrition Is this a current diagnosis for this admission?: Yes Plan: BMI 18.2 with significant weight loss of approximately 17 kg over the past year. -Albumin is 1.7, total protein 5.4. I suspect this is secondary to his very poor oral intake. -NG tube placed for enteral feeding -Albumin IV given -On dronabinol for appetite stimulant -Dietary consult (7) Acute kidney injury Is this a current diagnosis for this admission?: Yes Plan: Improving; Cr 2.55 -> 2.17>1.35. BUN 66 -> 57. Baseline Cr 0.9/BUN 14 Adequate urine output; ~2L daily Renal US: chronic renal disease, calculus left kidney, no dydronephrosis. Followed by Dr. Bazzi, nephrology. -Renal replacement therapy no indicated at this time. -Maintain euvolemia. Avoid nephrotoxic medications as able; renally dose when appropriate. Continue gentle IVF Strict I&Os Daily weights (8) Diabetes mellitus Qualifiers: Diabetes mellitus type: type 1 Diabetes mellitus complication status: with ketoacidosis Diabetes mellitus complication detail: without coma Qualified Code(s): E10.10 - Type 1 diabetes mellitus with ketoacidosis without coma Is this a current diagnosis for this admission?: Yes Plan: -His most recent A1c was 13.1%. - patient has poor appetite and is inconsistent with food intake. He is only on sliding scale insulin because he gets hypoglycemia often - Dietitian consulted and he was placed on a consistent carb diet. . (9) Diabetic ketoacidosis Qualifiers: Diabetes mellitus type: type 1 Diabetes mellitus complication detail: without coma Qualified Code(s): E10.10 - Type 1 diabetes mellitus with ketoacidosis without coma Is this a current diagnosis for this admission?: Yes Plan: DKA is resolved. Now advanced to Consistent Carb diet. Humalog for sliding scale coverage. Monitor blood sugar. (10) Acute on chronic pancreatitis Is this a current diagnosis for this admission?: Yes Plan: - resolved - continue pancreaze - tolerating diet although appetite is very poor (11) Sepsis Qualifiers: Sepsis type: sepsis due to unspecified organism Sepsis acute organ dysfunction status: unspecified Qualified Code(s): A41.9 - Sepsis, unspecified organism Is this a current diagnosis for this admission?: Yes Plan: This is resolved at this time suspect secondary to pneumonia and bacteremia. He was initially treated with vancomycin and Zosyn and was transitioned to cefazolin. Infectious disease was consulted and recommended continued treatment with cefazolin. Treatment and further evaluation otherwise as stated above. (12) Polysubstance abuse Is this a current diagnosis for this admission?: Yes Plan: Patient has a history of THC and cocaine use. He denies IV drug use at this time. Urine drug screen on admission was negative. Provided patient with education and encouragement regarding abstinence from drug use. Otherwise no treatment or attention necessary at this time. (13) Back pain Qualifiers: Back pain location: thoracic back pain Chronicity: acute Back pain laterality: midline Qualified Code(s): M54.6 - Pain in thoracic spine Is this a current diagnosis for this admission?: Yes Plan: - constant, not progressing - no tenderness on palpation - MRI Thoracic normal appearance thoracic spine. 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 Mild concentric disc bulge at L3-L4 with mild central canal stenosis no significant foraminal narrowing. - on percocet for pain (14) Ascites Qualifiers: Ascites type: other type Qualified Code(s): R18.8 - Other ascites Is this a current diagnosis for this admission?: Yes Plan: -Likely secondary to low albumin. Renal functions are normal -We will continue to monitor - Time Time Spent with patient: 35 or more minutes Medications reviewed and adjusted accordingly: Yes Anticipated Discharge Disposition: Senior Living Facility Anticipated Discharge Timeframe: to be determined
[2019-11-11] MEDS: SULFAMETHOXAZOLE/TRIMETHOPRIM 800-160 MG TABLET PO SCH (21:26)
[2019-11-11] MEDS: DRONABINOL 2.5 MG CAPSULE PO SCH (22:03)
[2019-11-11] MEDS: MULTIVITAMIN TABLET PO SCH (22:03)
[2019-11-11] MEDS: LACTOBACILLUS ACIDOPHILUS 250 MG TAB PO SCH (22:03)
[2019-11-12] MEDS: PROMETHAZINE HCL INJ 25 MG/1 ML VIAL IV PRN ×3 (05:14→16:15)
[2019-11-12 06:12] LABS: ABSOLUTE MONOCYTES (AUTO) 0.4 10^3/uL (0.1-1.4); ABSOLUTE NEUT (AUTO) 2.9 10^3/uL (1.7-8.2); BASOPHILS % (AUTO) 1.1 % (0-2); EOSINOPHILS % (AUTO) 0.7 % (0-6); HEMATOCRIT 23.8 % (37.9-51.0); LYMPHOCYTES % (AUTO) 23.4 % (13-45); MEAN CORPUSCULAR HEMOGLOBIN 27.6 pg (27.0-33.4); MEAN CORPUSCULAR HGB CONC 32.7 g/dL (32.0-36.0); MEAN CORPUSCULAR VOLUME 84 fl (80-97); MONOCYTES % (AUTO) 9.3 % (3-13); PLATELET COUNT 157 10^3/uL (150-450); RED BLOOD COUNT 2.82 10^6/uL (4.35-5.55); RED CELL DISTRIBUTION WIDTH 19.1 % (11.5-14.0); SEGMENTED NEUTROPHILS % (AUTO) 65.5 % (42-78); TOTAL CELLS COUNTED % (AUTO) 100 %; WHITE BLOOD COUNT 4.4 10^3/uL (4.0-10.5)
[2019-11-12 06:21] LABS: HEMOGLOBIN 7.8 g/dL (13.5-17.0)
[2019-11-12 06:29] LABS: ALBUMIN 1.9 g/dL (3.5-5.0); ALKALINE PHOSPHATASE 121 U/L (38-126); ANION GAP 8 (5-19); ASPARTATE AMINO TRANSFERASE 13 U/L (17-59); BILIRUBIN,DIRECT 0.3 mg/dL (0.0-0.4); BILIRUBIN,TOTAL 0.3 mg/dL (0.2-1.3); BLOOD UREA NITROGEN 43 mg/dL (7-20); CALCIUM 7.3 mg/dL (8.4-10.2); CARBON DIOXIDE 21 mmol/L (22-30); CHLORIDE 114 mmol/L (98-107); GLUCOSE 271 mg/dL (75-110); POTASSIUM 4.3 mmol/L (3.6-5.0); TOTAL PROTEIN 5.4 g/dL (6.3-8.2)
[2019-11-12] MEDS: SULFAMETHOXAZOLE/TRIMETHOPRIM 800-160 MG TABLET PO SCH (09:49)
[2019-11-12] MEDS: LINEZOLID 600 MG/300 ML RTUPB IV SCH (09:49)
[2019-11-12] MEDS: FAMOTIDINE INJ/PF 20 MG/2 ML SDV IV SCH ×2 (09:49→17:53)
[2019-11-12] MEDS: DRONABINOL 2.5 MG CAPSULE NG SCH ×2 (09:49→17:53)
[2019-11-12] MEDS: METOCLOPRAMIDE HCL ORAL SOLN 10 MG/10 ML UDCUP NG SCH ×3 (09:49→17:53)
[2019-11-12] MEDS: LACTOBACILLUS ACIDOPHILUS 250 MG TAB NG SCH ×2 (09:49→17:53)
[2019-11-12] MEDS: INSULIN REG, HUMAN 100 UNIT/ML 3 ML VIAL (PYX) SUBCUT SCH ×3 (09:50→17:54)
[2019-11-12] MEDS: NORMAL SALINE 10 ML SDV (SCHEDULED) IV SCH (09:50)
[2019-11-12] MEDS: MULTIVITAMIN ORAL LIQUID 60 ML NG SCH (09:51)
[2019-11-12] MEDS ORDERED: MULTIVITAMIN ORAL LIQUID 60 ML NG SCH (10:00)
--- NOTE | 2019-11-12 10:01 | PDOC PROGRESS REPORT ---
Subjective Progress Note for:: 11/12/19 Subjective:: Patient comfortable Reason For Visit: DKA Physical Exam Vital Signs: Temp Pulse Resp BP Pulse Ox 97.1 F 92 16 109/85 100 11/11/19 23:35 11/12/19 07:00 11/12/19 03:56 11/12/19 03:56 11/12/19 03:56 Intake & Output 11/11/19 11/12/19 11/13/19 06:59 06:59 06:59 Intake Total 4872 2531 Output Total 1165 1911 Balance 3707 620 Weight 63.3 kg 68.8 kg General appearance: PRESENT: mild distress, thin Respiratory exam: PRESENT: other - Right chest wall = chest tube present, no air leak in the Pleur-evac Results Laboratory Results: 11/12/19 05:20 11/12/19 05:20 11/11/19 11/12/19 11/12/19 08:20 05:20 05:20 WBC 5.0 4.4 RBC 2.91 L 2.82 L Hgb 8.1 L 7.8 L Hct 24.1 L 23.8 L MCV 83 84 MCH 27.7 27.6 MCHC 33.5 32.7 RDW 18.5 H 19.1 H Plt Count 162 157 Seg Neutrophils % 75.6 65.5 Sodium 143.1 Potassium 4.3 Chloride 114 H Carbon Dioxide 21 L Anion Gap 8 BUN 43 H Creatinine 1.73 H Est GFR ( Amer) 54 L Glucose 271 H Calcium 7.3 L Total Bilirubin 0.3 AST 13 L Alkaline Phosphatase 121 Total Protein 5.4 L Albumin 1.9 L Blood Type Antibody Screen 11/12/19 07:45 WBC RBC Hgb Hct MCV MCH MCHC RDW Plt Count Seg Neutrophils % Sodium Potassium Chloride Carbon Dioxide Anion Gap BUN Creatinine Est GFR ( Amer) Glucose Calcium Total Bilirubin AST Alkaline Phosphatase Total Protein Albumin Blood Type A POSITIVE Antibody Screen NEGATIVE 11/07/19 06:00 Blood Blood Culture - Final NO GROWTH IN 5 DAYS 11/07/19 04:31 Blood Blood Culture - Final NO GROWTH IN 5 DAYS 11/06/19 20:00 Blood Blood Culture - Final NO GROWTH IN 5 DAYS 11/10/19 01:49 Blood Blood Culture (PCR) - Final Enterococcus Species Serratia Marcescens 10/30/19 10/30/19 11/11/19 14:51 16:46 12:20 Troponin I Cancelled < 0.012 NT-Pro-B Natriuret Pep 2970 H Impressions: Renal Ultrasound 11/03/19 00:00 IMPRESSION: 1. CHRONIC MEDICAL RENAL DISEASE. CALCULUS IN THE LEFT KIDNEY. NO HYDRONEPHROSIS. 2. STONES/SLUDGE IN THE GALLBLADDER. Abdomen/Pelvis CT 11/06/19 00:00 IMPRESSION: 1. Bilateral, fairly dense pneumonias. May represent atypical infectious/ inflammatory process. Small right pleural effusion. Minimal left pleural effusion. 2. Free fluid in the abdomen. 3. Nonobstructing left renal calculus. 4. Chronic pancreatitis. Gallium Scan Nuclear Medicine 11/06/19 00:00 IMPRESSION: Abnormal uptake in the lungs consistent with pneumonia. No evidence of other infection source. Lumbar Spine MRI 11/06/19 00:00 IMPRESSION: 1. 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 Recommend radiographs of the lumbosacral spine. 2. There is some mild concentric disc bulge at L3-4 with mild central canal stenoses. No significant foraminal stenoses are seen. Thoracic Spine MRI 11/06/19 00:00 IMPRESSION: 1. Normal appearance about the thoracic spine. 2. Bilateral pleural and airspace disease as noted on recent chest x-ray. Thoracic esophagus is also dilated and partially fluid-filled. copyright 2010 [employer]- All Rights Reserved Chest CT 11/09/19 00:00 IMPRESSION: Increasing multifocal dense consolidations with multiple cavitary lesions demonstrating increased nodular thickening of the moore. Likewise, increased bilateral pleural effusions and upper abdominal ascites. PICC Line Insertion 11/10/19 00:00 IMPRESSION: SUCCESSFUL PLACEMENT OF A 5 FR DUAL LUMEN 22 CM PICC IN THE RIGHT BASILIC VEIN. Thoracentesis Ultrasound 11/10/19 00:00 IMPRESSION: SUCCESSFUL THORACENTESIS USING ULTRASOUND GUIDANCE. Chest X-Ray 11/10/19 17:00 IMPRESSION: Right pleural pigtail drainage catheter. Right PICC line catheter new since the prior study, tip overlies the SVC near the level of the nieves. Similar bibasilar consolidation and right pleural effusion. KUB X-Ray 11/11/19 10:43 IMPRESSION: TIP OF THE NASOGASTRIC TUBE IN THE STOMACH. Assessment & Plan - Diagnosis (1) Pleural effusion, right Is this a current diagnosis for this admission?: Yes (2) Abnormal CT scan, chest Is this a current diagnosis for this admission?: Yes (3) Diabetes mellitus type 1, uncontrolled Qualifiers: Glycemic state: with hypoglycemia Coma presence: without coma Qualified Code(s): E10.649 - Type 1 diabetes mellitus with hypoglycemia without coma - Time Anticipated Discharge Disposition: Home with Home Health Anticipated Discharge Timeframe: As per PCP - Plan Summary Plan Summary: Assessment Postoperative day #3 following placement of right pigtail chest tube by interventional urology for pleural effusion Pleural effusion output approximately 65 L for the past 24 hours Pleural effusion culture significant for Serratia marcescens and E. coli Plan: Continue chest tube suction Check chest x-ray tomorrow Right chest tube to be removed once the output is less than 20 mL/day patient has received at least 5 days of IV antibiotics
[2019-11-12] MEDS: OXYCODONE-ACETAMINOPHEN 5-325 MG TABLET PO PRN (10:52)
[2019-11-12 15:56] VITALS: BP 99/77
--- NOTE | 2019-11-12 18:22 | PDOC TRANSFER SUMMARY ---
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 Urine culture (11/08/19) serratia Blood culture (11/10/19) VRE and serratia marsescens Blood culture (11/11/19) negative x 24 hrs Pleural fluid culture (11/10/19) growing E coli and serratia marsescens TTE negative for vegetations CXR (10/29) RML PNA CT Chest (11/02) very dense consolidation throughout bilateral lower lobes and lateral segment of right middle lobe worrisome for pneumonia. More prominent than 10/29. Multifocal small cavity infiltrates/nodules present to the bilateral upper lobes and lateral aspect of the left lower lobe worrisome for septic emboli. CT abdomen/pelvis bilateral, fairly dense pneumonias. Small right pleural effusion. Minimal left pleural effusion. Free fluid in the abdomen. Nonobstructing left renal calculus. Chronic pancreatitis. MRI Thoracic normal appearance thoracic spine. 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 Mild concentric disc bulge at L3-L4 with mild central canal stenosis no significant foraminal stenosis was seen. CT chest increasing multifocal dense consolidations with multiple cavitary lesions demonstrating increased nodular thickening of the moore. Likewise increased bilateral pleural effusions and upper abdominal ascites. CLOVER 0.6x0.7 cm mass attached to the septal leaflet of the mitral valve highly suspicious for vegetation given clinical presentation. Antibiotics Zosyn- total 2 days Vanc total 2 days Cefazolin - total 9 days stopped 11/11/19 Linezolid - 11/10 to present Bactrim Ds- 11/10 to present (2) VRE (vancomycin resistant enterococcus) culture positive Is this a current diagnosis for this admission?: Yes Diagnosis Summary: -Repeat blood culture done on 11/09 showed VRE with Serratia marcescens -Antibiotics switched to linezolid from cefazolin -I was told by the nurse today that apparently he still has his right groin central line which resume was removed couple of days ago. I immediately asked her to remove the central line and send catheter tip for culture. -repeat blood culture pending -ID following (3) Bacteremia Is this a current diagnosis for this admission?: Yes Diagnosis Summary: -Blood culture (10/30/19; 1 bottle each set) MSSA and Enterococcus faecalis Urine culture (10/30/19) MSSA Urine culture (10/31/19) MRSA Blood culture (11/02/19; 1/4 bottles) MSSA and Enterococcus faecalis Blood culture (11/04/19) 1 bottle +ve MSSA Blood culture (11/06/19) 1 bottle +ve MSSA Blood culture (11/07/19) no growth 72 hrs. Urine culture (11/08/19) serratia Blood culture 11/10/19 VRE + serratia Blood culture 11/11/19 pending - patient still had a groin central line that has not been removed as opposed to what was previously thought. I ordered its immediate removal today and culture tip was sent for culure - CLOVER showing mitral valve vegetation consistent with endocarditis. - cefazolin total 9 days - Linezolid started 11/11/19 for VRE - ID following (4) Septic pulmonary embolism Is this a current diagnosis for this admission?: Yes Diagnosis Summary: The patient has persistent infiltrates R> L in the midlung. The density on the right is fairly distinct and has coalesced - He is not short of breath not requiring oxygen - CT chest dense consolidation in the bilateral lower lobe worrisome for pneumonia. Multiple smaller ill-defined cavitary infiltrate/nodules in the upper lobe worrisome for septic emboli. Trace bilateral pleural effusion. Upper abdominal ascites. Calcified pancreas from old pancreatitis. - repeat CT chest increasing multifocal dense consolidations with multiple cavitary lesions demonstrating increased nodular thickening of the moore. Likewise increased bilateral pleural effusions and upper abdominal ascites. - s/p thoracentesis 11/10/19 - awaiting pleural fluid analysis - surgery following for chest tube management (5) Parapneumonic effusion Is this a current diagnosis for this admission?: Yes Diagnosis Summary: Repeat CT of the chest done on November 08 showed increasing multifocal dense consolidations with multiple cavitary lesions demonstrating increased nodular thickening of the moore. Likewise increased bilateral pleural effusions and upper abdominal ascites. -Status post thoracentesis November 10, 2019 with placement of chest tube due to findings concerning for empyema - Pleural fluid culture +ve e.coli and serratia marscencens -Pleural fluid analysis pending -Surgery consulted for chest tube management -On Linezolid for VRE (6) Severe protein-calorie malnutrition Is this a current diagnosis for this admission?: Yes Diagnosis Summary: BMI 18.2 with significant weight loss of approximately 17 kg over the past year. -Albumin is 1.7, total protein 5.4. I suspect this is secondary to his very poor oral intake. -NG tube placed for enteral feeding -Albumin IV given -On dronabinol for appetite stimulant -Dietary consult (7) Acute kidney injury Is this a current diagnosis for this admission?: Yes Diagnosis Summary: Improving; Cr 2.55 -> 2.17>1.35. BUN 66 -> 57. Baseline Cr 0.9/BUN 14 Adequate urine output; ~2L daily Renal US: chronic renal disease, calculus left kidney, no dydronephrosis. Followed by Dr. Bazzi, nephrology. -Renal replacement therapy no indicated at this time. -Maintain euvolemia. (8) Diabetes mellitus Is this a current diagnosis for this admission?: Yes Diagnosis Summary: -His most recent A1c was 13.1%. - patient has poor appetite and is inconsistent with food intake. He is only on sliding scale insulin because he gets hypoglycemia often - Dietitian consulted and he was placed on a consistent carb diet. (9) Diabetic ketoacidosis Is this a current diagnosis for this admission?: Yes (10) Acute on chronic pancreatitis Is this a current diagnosis for this admission?: Yes (11) Sepsis Is this a current diagnosis for this admission?: Yes (12) Polysubstance abuse Is this a current diagnosis for this admission?: Yes Diagnosis Summary: Patient has a history of THC and cocaine use. He denies IV drug use at this time. Urine drug screen on admission was negative. Provided patient with education and encouragement regarding abstinence from drug use. Otherwise no treatment or attention necessary at this time. (13) Back pain Is this a current diagnosis for this admission?: Yes Diagnosis Summary: constant, not progressing - no tenderness on palpation - MRI Thoracic normal appearance thoracic spine. 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 Mild concentric disc bulge at L3-L4 with mild central canal stenosis no significant foraminal narrowing. - on percocet for pa (14) Ascites Is this a current diagnosis for this admission?: Yes - Transfer Medications Home Medications: Insulin Aspart [Novolog Flexpen] 0 unit SUBCUT .SLD SCALE 09/26/19 Insulin Glargine,Hum.rec.anlog [Lantus Insulin 100 Unit/1 ml 10 ml] 25 unit SQ Q12 09/26/19 Lipase/Protease/Amylase [Nate Rodríguez 36,000 Units Capsule] 1 cap PO .SNACKS 09/26/19 Lipase/Protease/Amylase [Nate Rodríguez 36,000 Units Capsule] 1 cap PO AC 09/26/19 Transfer Medications: Current Medications Acetaminophen (Tylenol 325 Mg Tablet) 650 mg NG Q4HP PRN PRN Reason: FOR PAIN OR TEMP Stop: 12/03/19 14:45 Albuterol (Ventolin 0.083% Neb 2.5 Mg/3 Ml Ampul) 2.5 mg NEB RTQ6HP PRN PRN Reason: dyspnea, wheeze Stop: 12/04/19 14:29 Last Admin: 11/06/19 09:54 Dose: 2.5 mg Documented by: Lipase/Protease/Amylase (Pancreaze-10 Ubaldo.) 1 cap PO BIDACBS ARNALDO Stop: 12/02/19 15:59 Last Admin: 11/11/19 08:28 Dose: Not Given Documented by: Dextrose (Dextrose Inj 50% Syringe (25 Gm/50 Ml)) 12.5 gm IV PRN PRN; Protocol PRN Reason: FOR BG 50-69 IN ALERT PATIENT Stop: 11/30/19 18:04 Last Admin: 11/03/19 09:42 Dose: 12.5 gm Documented by: Dextrose (Dextrose Inj 50% Syringe (25 Gm/50 Ml)) 25 gm IV PRN PRN; Protocol PRN Reason: PER PROTOCOL Stop: 11/30/19 18:04 Last Admin: 11/08/19 08:31 Dose: 25 gm Documented by: Dronabinol (Marinol 2.5 Mg Capsule) 2.5 mg NG BID ARNALDO Stop: 11/18/19 11:29 Last Admin: 11/12/19 09:49 Dose: 2.5 mg Documented by: Famotidine (Pepcid Inj/Pf 20 Mg/2 Ml Sdv) 20 mg IV BID ARNALDO Stop: 11/30/19 10:29 Last Admin: 11/12/19 09:49 Dose: 20 mg Documented by: Glucagon (Glucagen Inj 1 Mg Vial) 1 mg IM PRN PRN; Protocol PRN Reason: Evaluate for BG < 70 Stop: 11/30/19 18:04 Glucagon (Glucagen Inj 1 Mg Vial) 1 mg SUBCUT PRN PRN; Protocol PRN Reason: Evaluate for BG < 70 Stop: 12/08/19 07:42 Glucose (Glutose 40% Gel 15 Gm Tube) 15 gm PO PRN PRN; Protocol PRN Reason: FOR BG 50-69 IN ALERT PATIENT Stop: 11/30/19 18:04 Glucose (Glutose 40% Gel 15 Gm Tube) 30 gm PO PRN PRN; Protocol PRN Reason: FOR BG < 50 IN ALERT PATIENT Stop: 11/30/19 18:04 Heparin Sodium (Porcine) (Heparin Flush 10 Unit/Ml 5 Ml Disp.Syrg) 30 unit IV Q8 ARNALDO Stop: 12/05/19 05:59 Last Admin: 11/12/19 13:02 Dose: Not Given Documented by: Heparin Sodium (Porcine) (Heparin Flush 10 Unit/Ml 5 Ml Disp.Syrg) 30 unit IV .AFTER EACH USE PRN PRN Reason: AFTER EACH INTERMITTENT USE Stop: 12/04/19 22:59 Heparin Sodium (Porcine) (Heparin Flush 10 Unit/Ml 5 Ml Disp.Syrg) 30 unit IV Q12 ARNALDO Stop: 12/10/19 21:59 Last Admin: 11/12/19 09:49 Dose: 30 unit Documented by: Heparin Sodium (Porcine) (Heparin Flush 10 Unit/Ml 5 Ml Disp.Syrg) 30 unit IV .AFTER EACH USE PRN Stop: 12/10/19 18:29 Last Admin: 11/12/19 05:16 Dose: 30 unit Documented by: Linezolid (Zyvox Rtu 600 Mg/300 Ml Premixed) 600 mg in 300 mls @ 300 mls/hr IV Q12 ARNALDO Stop: 11/18/19 09:59 Last Infusion: 11/12/19 11:18 Dose: Infused Documented by: Insulin Glargine (Lantus Insulin 100 Unit/1 Ml 10 Ml) 10 unit SUBCUT DAILY [facility] Stop: 12/13/19 09:59 Insulin Human Regular (Humulin R (Pyxis) Insulin 100 Unit/Ml 3ml) 0 - 12 unit SUBCUT ACHS [facility]; Protocol Stop: 12/04/19 10:59 Last Admin: 11/12/19 13:02 Dose: 10 unit Documented by: Lactobacillus Acidophilus (Bacid 250 Mg Tablet) 250 mg NG BID [facility] Stop: 12/11/19 11:29 Last Admin: 11/12/19 09:49 Dose: 250 mg Documented by: Metoclopramide HCl (Reglan Oral Soln 10 Mg/10 Ml Udcup) 5 mg NG MEALS [facility] Stop: 12/11/19 11:59 Last Admin: 11/12/19 13:02 Dose: 5 mg Documented by: Multivitamins (Multiple Vitamin Liquid 60 Ml) 5 ml NG DAILY [facility] Stop: 12/11/19 11:59 Last Admin: 11/12/19 09:51 Dose: 5 ml Documented by: Oxycodone/Acetaminophen (Percocet 5-325 Mg Tablet) 1 tab PO Q6HP PRN PRN Reason: FOR PAIN Stop: 11/18/19 16:58 Last Admin: 11/12/19 10:52 Dose: 1 tab Documented by: Pharmacy Profile Note (Medication Communication Order) 1 each .NOTICE NR Stop: 11/30/19 03:44 Pharmacy Profile Note (Medication Communication Order) 1 each .NOTICE NR Stop: 12/11/19 10:44 Promethazine HCl (Phenergan Inj 25 Mg/1 Ml Vial) 12.5 mg IV Q4HP PRN PRN Reason: UNRESOLVED NAUSEA/VOMITING Stop: 12/06/19 13:57 Last Admin: 11/12/19 16:15 Dose: 12.5 mg Documented by: Sodium Chloride (Saline Flush 2.5 Ml Monoject Prefil Syrin) 2.5 ml IV Q8 [facility] Stop: 11/29/19 21:59 Last Admin: 11/12/19 13:02 Dose: Not Given Documented by: Sodium Chloride (Nacl 0.9% Inj/Pf 10 Ml Sdv) 10 ml IV Q12 ARNALDO Stop: 12/10/19 21:59 Last Admin: 11/12/19 09:50 Dose: 10 ml Documented by: Sodium Chloride (Nacl 0.9% Inj/Pf 10 Ml Sdv) 10 ml IV .AFTER EACH USE PRN Stop: 12/10/19 18:29 Trimethoprim/Sulfamethoxazole (Septra-Ds 800-160 Mg Tablet) 1 tab PO Q12 ARNALDO Stop: 11/18/19 21:59 Last Admin: 11/12/19 09:49 Dose: 1 tab Documented by: - Allergies Allergies/Adverse Reactions: ondansetron [From Zofran (as hydrochloride)] Allergy (Severe, Verified 10/30/19 18:44) Difficulty breathing Hospital Course Hospital Course: Feng Ram 39/M, PMH of Type 1 Diabetes Mellitus, Chronic Pancreatitis, HLD, HTN, multiple admission due to DKA at [facility] admitted at 10/31/19 after he was found by his family members unconscious covered in his own feces. Upon arrival in the ED he was found to have a blood sugar when evaluated in the ED he was found to have a blood sugar of 1037, sodium 120.4, bicarb 6, creatinine 3.94, and a calcium of 6.8. He was given 4 L normal saline in the ED and started on an insulin drip per protocol. Initial blood gas pH 7.01 PCO2 of 26.6 PO2 122 HCO3 6.5. He is admitted to the ICU for further management of DKA. He was intubated . Lipase was noted to be elevated as well. Initially started on Vanc and zosyn. Blood culture grew MSSA hence he was changed to cefazolin after 2 days of Vanc and zosyn. Initial ECHO done 10/31 did not show any findings of endocarditis. CT chest done 11/02 showed findings concerning for septic emboli hence CLOVER was ordered. he was also noted to have EVE crea 3.9 which improved with hydration. He was trasnferred out of the ICU 11/03/19. D6 hospital stay 11/04/19. Patient exhibited poor appetite and persistent low back pain. MRI thoraco lumbar was done which did not reveal any osteo/abscess or discitis. He continued to spike fever with blood cultures persistently growing MSSA. ID recommended to remove all lines, townsend and central line. D10 hospital stay 11/09/19. CLOVER 0.6 cm x 0.7 cm mass attached to the septal leaflet of the mitral valve highly suspicious for vegetation given clinical presentation. No independent mobility is noted however. LV systolic function is normal. Ejection fraction more than 55%. There is mild mitral regurgitation. There is no pericardial effusion. He was continued on cefazolin. He continued to exhibit poor appetite and worsening bilateral leg edema which was likely due to low albumin 1.7. repeat CT chest showed increasing multifocal dense consolidations with multiple cavitary lesions demonstrating increased nodular thickening of the moore. Likewise increased bilateral pleural effusions and upper abdominal ascites. D11 hospital stay 11/10/19. Patient underwent thoracentesis via IR with appearance of pleural effusion concerning for empyema hence a chest tube was placed. He also got a PICC line. Repeat blood cultures were drawn. Continued on cefazolin. D12. 11/11/19. Blood cultures drawn 11/09 showed Vancomycin resistant enterococcus and serratia marscescens. Cefazolin was switched to linezolid. Patient was started on bactrim as well for gram neg coverage. NG tube was placed for nutrition due to very poor oral intake. During this time it was found that he still has a central line in his right groin area that was not removed since plac ement in the ICU 10/30/19. this was removed and catheter tip sent for culture D13. 11/12/19. Patient remained stable, still with bilateral leg edema. Repeat blood culture 11/11/19 negative 24 hrs. catheter tip no growth in 1 day. Case discussed with [facility] CT surgery Dr. Tyson Leach who accepted the patient for transfer, spoke to Dr. Paris Tobias fromcardiology who has accepted the patient. Physical Exam Vital Signs: Temp Pulse Resp BP Pulse Ox 97.1 F 82 18 99/77 L 100 11/12/19 12:19 11/12/19 15:41 11/12/19 15:41 11/12/19 15:41 11/12/19 15:41 Intake & Output 11/11/19 11/12/19 11/13/19 06:59 06:59 06:59 Intake Total 4872 2531 500 Output Total 1165 1911 300 Balance 3707 620 200 Weight 63.3 kg 68.8 kg General appearance: PRESENT: no acute distress, cooperative, thin Head exam: PRESENT: normocephalic, other Eye exam: PRESENT: EOMI, PERRLA Mouth exam: PRESENT: moist Neck exam: PRESENT: full ROM Respiratory exam: PRESENT: rales, symmetrical, unlabored, other - chest tube connected to suction. ABSENT: wheezes Cardiovascular exam: PRESENT: RRR, +S1, +S2 Pulses: PRESENT: +2 pedal pulses bilateral GI/Abdominal exam: PRESENT: ascites, normal bowel sounds, soft. ABSENT: rebound, tenderness Extremities exam: PRESENT: full ROM, pedal edema, +2 edema Musculoskeletal exam: PRESENT: full ROM Neurological exam: PRESENT: alert, awake, oriented to person, oriented to place, oriented to time Psychiatric exam: PRESENT: normal mood Skin exam: PRESENT: normal color Results Laboratory Results: 11/12/19 05:20 11/12/19 05:20 11/12/19 11/12/19 11/12/19 05: 05:20 07:45 WBC 4.4 RBC 2.82 L Hgb 7.8 L Hct 23.8 L MCV 84 MCH 27.6 MCHC 32.7 RDW 19.1 H Plt Count 157 Seg Neutrophils % 65.5 Sodium 143.1 Potassium 4.3 Chloride 114 H Carbon Dioxide 21 L Anion Gap 8 BUN 43 H Creatinine 1.73 H Est GFR ( Amer) 54 L Glucose 271 H Calcium 7.3 L Total Bilirubin 0.3 AST 13 L Alkaline Phosphatase 121 Total Protein 5.4 L Albumin 1.9 L Blood Type A POSITIVE Antibody Screen NEGATIVE 11/10/19 01:49 Blood Blood Culture (PCR) - Final Enterococcus Species Serratia Marcescens 11/10/19 01:49 Blood Blood Culture - Final Serratia Marcescens Enterococcus Casseliflavus 11/07/19 06:00 Blood Blood Culture - Final NO GROWTH IN 5 DAYS 11/07/19 04:31 Blood Blood Culture - Final NO GROWTH IN 5 DAYS 11/06/19 20:00 Blood Blood Culture - Final NO GROWTH IN 5 DAYS 10/30/19 10/30/19 11/11/19 14:51 16:46 12:20 Troponin I Cancelled < 0.012 NT-Pro-B Natriuret Pep 2970 H Impressions: Renal Ultrasound 11/03/19 00:00 IMPRESSION: 1. CHRONIC MEDICAL RENAL DISEASE. CALCULUS IN THE LEFT KIDNEY. NO HYDRONEPHROSIS. 2. STONES/SLUDGE IN THE GALLBLADDER. Abdomen/Pelvis CT 11/06/19 00:00 IMPRESSION: 1. Bilateral, fairly dense pneumonias. May represent atypical infectious/ inflammatory process. Small right pleural effusion. Minimal left pleural effusion. 2. Free fluid in the abdomen. 3. Nonobstructing left renal calculus. 4. Chronic pancreatitis. Gallium Scan Nuclear Medicine 11/06/19 00:00 IMPRESSION: Abnormal uptake in the lungs consistent with pneumonia. No evidence of other infection source. Lumbar Spine MRI 11/06/19 00:00 IMPRESSION: 1. 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 Recommend radiographs of the lumbosacral spine. 2. There is some mild concentric disc bulge at L3-4 with mild central canal stenoses. No significant foraminal stenoses are seen. Thoracic Spine MRI 11/06/19 00:00 IMPRESSION: 1. Normal appearance about the thoracic spine. 2. Bilateral pleural and airspace disease as noted on recent chest x-ray. Thoracic esophagus is also dilated and partially fluid-filled. copyright 2010 [employer]- All Rights Reserved Chest CT 11/09/19 00:00 IMPRESSION: Increasing multifocal dense consolidations with multiple cavitary lesions demonstrating increased nodular thickening of the moore. Likewise, increased bilateral pleural effusions and upper abdominal ascites. PICC Line Insertion 11/10/19 00:00 IMPRESSION: SUCCESSFUL PLACEMENT OF A 5 FR DUAL LUMEN 22 CM PICC IN THE RIGHT BASILIC VEIN. Thoracentesis Ultrasound 11/10/19 00:00 IMPRESSION: SUCCESSFUL THORACENTESIS USING ULTRASOUND GUIDANCE. Chest X-Ray 11/10/19 17:00 IMPRESSION: Right pleural pigtail drainage catheter. Right PICC line catheter new since the prior study, tip overlies the SVC near the level of the nieves. Similar bibasilar consolidation and right pleural effusion. KUB X-Ray 11/11/19 10:43 IMPRESSION: TIP OF THE NASOGASTRIC TUBE IN THE STOMACH. Plan Discharge Plan: Transfer to [facility] accepting physician Dr. Paris Tobias cardiology service Time Spent: Greater than 30 Minutes
[2019-11-13] MEDS ORDERED: INSULIN GLARGINE,HUM.REC.ANLOG 1,000 UNIT/10 ML VIAL SUBCUT SCH (10:00)
[2019-11-14 07:26] LABS: TOTAL PROTEIN BODY FLUID 3.1 g/dL (.)
[2019-11-14 07:27] LABS: PH BODY FLUID 7.1 (Not Estab.)
== END 2019-11-12 19:57 | disposition short-term general hospital (02) | DRG 871 ==
LOC: ER 14:23 → EH 20:07 → ICU 23:20 → 3W 11-03 14:02
PROVIDERS: ADMIT Internal Medicine; ATTEND Internal Medicine
PROC: 06HM33Z Insertion of Infusion Device into Right Femoral Vein, Percutaneous Approach (ICD-10-PCS; principal; 2019-10-30)
PROC: 0BH17EZ Insertion of Endotracheal Airway into Trachea, Via Natural or Artificial Opening (ICD-10-PCS; 2019-10-31)
PROC: 5A1945Z Respiratory Ventilation, 24-96 Consecutive Hours (ICD-10-PCS; 2019-10-31)
PROC: 30233N1 Transfusion of Nonautologous Red Blood Cells into Peripheral Vein, Percutaneous Approach (ICD-10-PCS; 2019-11-05)
PROC: 02HV33Z Insertion of Infusion Device into Superior Vena Cava, Percutaneous Approach (ICD-10-PCS; 2019-11-10)
PROC: B548ZZA Ultrasonography of Superior Vena Cava, Guidance (ICD-10-PCS; 2019-11-10)
PROC: 0W9B3ZX Drainage of Left Pleural Cavity, Percutaneous Approach, Diagnostic (ICD-10-PCS; 2019-11-10)
PROC: 0W9930Z Drainage of Right Pleural Cavity with Drainage Device, Percutaneous Approach (ICD-10-PCS; 2019-11-10)
PROC: 0DH67UZ Insertion of Feeding Device into Stomach, Via Natural or Artificial Opening (ICD-10-PCS; 2019-11-11)
DX: A41.81 Sepsis due to Enterococcus (principal); I33.0 Acute and subacute infective endocarditis; E10.10 Type 1 diabetes mellitus with ketoacidosis without coma; J96.01 Acute respiratory failure with hypoxia; I26.90 Septic pulmonary embolism without acute cor pulmonale; J18.9 Pneumonia, unspecified organism; E43 Unspecified severe protein-calorie malnutrition; K85.90 Acute pancreatitis without necrosis or infection, unspecified; N17.9 Acute kidney failure, unspecified; E87.1 Hypo-osmolality and hyponatremia; K86.1 Other chronic pancreatitis; Z68.1 Body mass index [BMI] 19.9 or less, adult; R18.8 Other ascites; J90 Pleural effusion, not elsewhere classified; Z16.21 Resistance to vancomycin; A41.01 Sepsis due to Methicillin susceptible Staphylococcus aureus; D50.8 Other iron deficiency anemias; I10 Essential (primary) hypertension; F32.9 Major depressive disorder, single episode, unspecified; E78.5 Hyperlipidemia, unspecified; K21.9 Gastro-esophageal reflux disease without esophagitis; K52.9 Noninfective gastroenteritis and colitis, unspecified; F14.90 Cocaine use, unspecified, uncomplicated; F12.90 Cannabis use, unspecified, uncomplicated; E87.6 Hypokalemia; R33.9 Retention of urine, unspecified; M51.26 Other intervertebral disc displacement, lumbar region; B96.89 Other specified bacterial agents as the cause of diseases classified elsewhere; B95.62 Methicillin resistant Staphylococcus aureus infection as the cause of diseases classified elsewhere; Z20.828 Contact with and (suspected) exposure to other viral communicable diseases; Z78.1 Physical restraint status; Z86.14 Personal history of Methicillin resistant Staphylococcus aureus infection; Z79.4 Long term (current) use of insulin; Z79.899 Other long term (current) drug therapy; Z91.14 Patient's other noncompliance with medication regimen; F17.200 Nicotine dependence, unspecified, uncomplicated; Z83.3 Family history of diabetes mellitus; Z82.49 Family history of ischemic heart disease and other diseases of the circulatory system; Z83.438 Family history of other disorder of lipoprotein metabolism and other lipidemia
CPT/HCPCS: 01922; 31500; 32555; 32557; 36415; 36430; 36573; 71045; 71250; 72146; 72148; 74018; 74176; 76770; 78804; 80048; 80053; 80074; 80202; 80307; 81001; 82010; 82042; 82272; 82570; 82607; 82728; 82746; 82803; 82945; 82947; 82962; 83036; 83540; 83550; 83605; 83615; 83690; 83735; 83880; 83986; 84100; 84156; 84157; 84439; 84443; 84481; 84484; 85025; 85027; 85045; 85610; 85652; 86022; 86140; 86701; 86850; 86900; 86901; 86920; 87015; 87040; 87045; 87070; 87075; 87077; 87086; 87088; 87101; 87116; 87150; 87186; 87205; 87206; 87324; 87449; 87493; 87635; 88305; 93005; 93010; 93306; 93312; 93325; 94002; 94003; 94640; 94667; 94799; 96361; 96365; 96367; 99291; J0610; A9270-GY; A9556; C1892; C9803; J0690; J1642; J1644; J1756; J1815; J1940; J2020; J2185; J2543; J2550; J2704; J3010; J3370; J3475; J3480; J3490; J7030; J7050; J7060; J7120; J7613; P9016; P9047; S0028